=== PATIENT | female | born 1965 | race Caucasian/White ===

== ENCOUNTER → 2019-03-25 12:14 | Outpatient (CLI) | payer OTHER, SELFPAY ==
--- NOTE | 2019-03-25 12:36 | EKG12_ITS ---
Test Reason : PRE OP Blood Pressure : / mmHG Vent. Rate : 068 BPM Atrial Rate : 068 BPM P-R Int : 152 ms QRS Dur : 080 ms QT Int : 412 ms P-R-T Axes : 036 026 050 degrees QTc Int : 438 ms Sinus rhythm with marked sinus arrhythmia Otherwise normal ECG Confirmed by MOON KOENIG, AYANNA ([id number]), online content editor MAHIN CARDONA ([id number]) on 03/26/2019 2:14:57 PM Referred By: Cory De La Torre Confirmed By:AYANNA MUSTAFA MD
[2019-03-25 12:51] LABS: Absolute Lymphocyte Count 2.22 X10^3/uL (0.83-4.51); Absolute Neutrophil Count 3.5 X10^3/uL (2.0-7.7); Basophil# 0.02 X10^3/uL; Basophil% 0.3 % (0-1); Eosinophil# 0.05 X10^3/uL; Eosinophils% 0.8 % (0-5); Hematocrit 39.8 % (37-47); Hemoglobin 13.2 g/dL (12.0-15.0); Lymphocyte # 2.22 X10^3/ul (4.0); Lymphocyte % 34.2 % (19-41); Mean Corp Hgb Conc 33.2 g/dL (32-36); Mean Corpuscular Hgb 32.7 pg (27.0-32.0); Mean Corpuscular Volume 98.5 fL (81-99); Mean Platelet Vol. 11.4 fl (6.2-12.0); Monocyte# 0.65 X10^3/uL; NRBC Flagged by Analyzer 0 % (0-5); Neutrophil # 3.54 X10^3/uL (2.7-7.7); Neutrophil % 54.4 % (47-70); Platelet Count 193 K/mm3 (150-450); RBC Distribution Width CV 12.2 % (11.6-14.6); RBC Distribution Width SD 44.8 fl (35.1-43.9); Red Blood Count 4.04 M/mm3 (4.2-5.4); White Blood Count 6.5 K/mm3 (4.4-11.0)
[2019-03-25 13:08] LABS: Anion Gap 9 (5-15); BUN 12 mg/dL (7-18); BUN/Creat Ratio 20.3 RATIO (10-20); Calcium,Total 8.8 mg/dL (8.5-10.1); Chloride 99 mmol/L (98-107); Creatinine, Serum 0.59 mg/dL (0.55-1.02); EST Glomerular Filtration Rate 113 mL/min (>60); Est Glom Filt Rate - Afr Amer 136 mL/min (>60); Glucose 97 mg/dL (74-106); Potassium 3.8 mmol/L (3.5-5.1); Sodium Level 135 mmol/L (136-145)
== END ==
PROVIDERS: Family Provider Internal Medicine; PCP Internal Medicine; Referring Provider Physician Assistant; Visit Provider Physician Assistant
DX: Z01.818 Encounter for other preprocedural examination (principal); Z01.810 Encounter for preprocedural cardiovascular examination
CPT/HCPCS: 36415; 80048; 85025; 93005

== ENCOUNTER → 2019-12-29 09:57 | Outpatient (CLI) | payer OTHER, SELFPAY ==
[2019-12-29 12:08] LABS: Ferritin 438 ng/mL (8-252); Iron 122 ug/dL (50-170); Iron Binding Capacity,Total 307 ug/dL (250-450); PERCENT IRON SATURATION 39.7 % (15.0-55.0)
[2019-12-29 12:11] LABS: Hepatitis B Surface Antibody Non-Reactive
[2019-12-30 16:08] LABS: Cytoplasmic Ab (C-ANCA) <1:20 titer (Neg:<1:20)
[2019-12-30 17:12] LABS: Ceruloplasmin 22.3 mg/dL (19.0-39.0); Perinuclear Ab (P-ANCA) <1:20 titer (Neg:<1:20); t-Transglutaminase IgA <2 U/mL (0-3)
[2019-12-30 22:33] LABS: Alpha Antitrypsin Serum 141 mg/dL (101-187)
== END ==
PROVIDERS: PCP Internal Medicine; Referring Provider Internal Medicine Gastroenterology; Visit Provider Internal Medicine Gastroenterology
DX: K76.0 Fatty (change of) liver, not elsewhere classified (principal); R94.5 Abnormal results of liver function studies; K92.1 Melena; K59.00 Constipation, unspecified; J32.9 Chronic sinusitis, unspecified
CPT/HCPCS: 36415; 82103; 82390; 82728; 83516; 83540; 83550; 86256; 86706; 87070; 87077; 87186; 87205

== ENCOUNTER → 2019-12-30 06:53 | Outpatient (CLI) | payer OTHER, SELFPAY | PROVIDERS: PCP Internal Medicine; Referring Provider Internal Medicine Gastroenterology; Visit Provider Internal Medicine Gastroenterology | DX: K76.0 Fatty (change of) liver, not elsewhere classified (principal); R94.5 Abnormal results of liver function studies; K92.1 Melena; K59.00 Constipation, unspecified | CPT/HCPCS: 36415 ==

== ENCOUNTER → 2020-01-06 09:24 | Outpatient (CLI) | payer OTHER, SELFPAY ==
--- NOTE | 2020-01-06 09:31 | US_ITS ---
STUDY: ABDOMINAL ULTRASOUND - RIGHT UPPER QUADRANT REASON FOR VISIT: Female, 54 years old FATTY LIVER TECHNIQUE: Ultrasound evaluation of the right upper quadrant was performed with real-time and static blanco-scale imaging. TECHNICAL QUALITY: Adequate. COMPARISON: None. FINDINGS: Liver: The liver measures 16.1 cm. There is increased echogenicity consistent with fatty infiltration. The bile ducts are within normal limits. There is hepatic color flow. The direction of portal flow is hepatopetal. There is no demonstrated mass lesion. Gallbladder: Normal distended gallbladder. The gallbladder wall measures 2.3 mm. There is a negative sonographic Du''s sign. There is no pericholecystic fluid. There are no gallstones. There is a 4 mm x 6 mm x 3 mm polyp adherent to the gallbladder wall. Common Bile Duct (C.B.D.): The common bile duct measures 2.8 mm. Pancreas: Normal size of the head, body and tail of the pancreas. There is increased echogenicity of the pancreas. There is no demonstrated pancreatic mass or cyst. Right Kidney: Normal size of the right kidney. The right kidney measures 12 cm x 4.9 cm x 4.0 cm. Normal renal cortex. The right cortex measures 1.2 cm. There is no demonstrated renal mass or cyst. There is no right hydronephrosis. US/Abdomen Limited IMPRESSION: Fatty infiltration of the liver. Electronically Signed: Bhupinder Willis, at 13:47 EDT , Service support ,
== END ==
PROVIDERS: PCP Internal Medicine; Referring Provider Internal Medicine Gastroenterology; Visit Provider Internal Medicine Gastroenterology
DX: K76.0 Fatty (change of) liver, not elsewhere classified (principal); R94.5 Abnormal results of liver function studies; K92.1 Melena; K59.00 Constipation, unspecified
CPT/HCPCS: 76705

== ENCOUNTER → 2020-01-07 16:30 | Outpatient (CLI) | payer OTHER, SELFPAY ==
--- NOTE | 2020-01-07 16:33 | CT_ITS ---
STUDY: CT BRAIN WITHOUT CONTRAST REASON FOR EXAM: Female, 54 years old. BLURRED VISION, RT SIDED HEAD PAIN X 1 WEEK, NKI RADIATION DOSAGE (If Supplied By Facility): CTDIvol = ( 44.99 ) mGy, DLP = ( 762.36 ) mGycm TECHNIQUE: Transaxial CT imaging of the brain was performed without administration of intravenous contrast material. Individualized dose optimization techniques were used for this CT. COMPARISON: No relevant priors. FINDINGS: Normal soft tissue structures. Normal calvarium. Normal size ventricles and extra-axial spaces for the patient''s age. Normal white matter tracts of the cerebral hemispheres. Normal basal ganglia and thalami. Normal brainstem. Normal cerebellum. There is no intracranial hemorrhage. There are no findings of an acute ischemic infarction. Right maxillary sinus mucosal thickening. CT/Brain/Head without Contrast IMPRESSION: Normal unenhanced CT scan of the brain. Electronically Signed: Toi Rothman DO at 16:56 EDT Tel [phone], Service support ,
== END ==
PROVIDERS: PCP Internal Medicine; Referring Provider Nurse Practitioner; Visit Provider Nurse Practitioner
DX: R51 Headache (principal); H53.8 Other visual disturbances; M35.1 Other overlap syndromes
CPT/HCPCS: 70450

== ENCOUNTER → 2020-01-07 | Outpatient (CLI) | payer OTHER, SELFPAY ==
[2020-01-07 15:49] LABS: Absolute Neutrophil Count 2.4 X10^3/uL (2.0-7.7); Basophil# 0.02 X10^3/uL; Basophil% 0.4 % (0-1); Eosinophil# 0.02 X10^3/uL; Eosinophils% 0.4 % (0-5); Hematocrit 38.6 % (37-47); Hemoglobin 13.2 g/dL (12.0-15.0); Lymphocyte % 36.6 % (19-41); Mean Corp Hgb Conc 34.2 g/dL (32-36); Mean Corpuscular Hgb 33.2 pg (27.0-32.0); Mean Platelet Vol. 12.1 fl (6.2-12.0); Monocyte# 0.64 X10^3/uL; NRBC Flagged by Analyzer 0 % (0-5); Neutrophil # 2.43 X10^3/uL (2.7-7.7); Neutrophil % 49.4 % (47-70); Platelet Count 188 K/mm3 (150-450); RBC Distribution Width CV 13.2 % (11.6-14.6); RBC Distribution Width SD 47.2 fl (35.1-43.9); Red Blood Count 3.98 M/mm3 (4.2-5.4); White Blood Count 4.9 K/mm3 (4.4-11.0)
[2020-01-07 15:53] LABS: Erythrocyte Sedimentation Rate 32 mm/hr (0-30)
[2020-01-07 15:54] LABS: Anion Gap 6 (5-15); BUN 10 mg/dL (7-18); BUN/Creat Ratio 13.9 RATIO (10-20); CRP 8.73 mg/L (0.0-3.0); Calcium,Total 8.7 mg/dL (8.5-10.1); Chloride 98 mmol/L (98-107); Creatinine, Serum 0.72 mg/dL (0.55-1.02); EST Glomerular Filtration Rate 90 mL/min (>60); Est Glom Filt Rate - Afr Amer 108 mL/min (>60); Glucose 84 mg/dL (74-106); Potassium 3.6 mmol/L (3.5-5.1); Sodium Level 131 mmol/L (136-145)
== END | disposition home or self-care (01) ==
LOC: LABSPEC 15:24
PROVIDERS: PCP Internal Medicine; Referring Provider Nurse Practitioner; Visit Provider Nurse Practitioner
DX: R51 Headache (principal); H53.8 Other visual disturbances
CPT/HCPCS: 80048; 85025; 85652; 86140

== ENCOUNTER → 2020-01-28 | Outpatient (CLI) | payer OTHER, SELFPAY | END | disposition home or self-care (01) | PROVIDERS: PCP Internal Medicine; Referring Provider Otolaryngology; Visit Provider Otolaryngology | DX: J32.9 Chronic sinusitis, unspecified (principal) | CPT/HCPCS: 87070; 87077; 87186; 87205 ==

== ENCOUNTER 2020-05-15 13:48 | Emergency (ER) | payer OTHER, SELFPAY ==
[2020-05-15 13:49] VITALS: BP 168/96; PULSE 67; RESP 18; TEMP 36.6; O2SAT 100; BMI 35.4
--- NOTE | 2020-05-15 14:15 | ED.DCSUM_ITS ---
- ER Visit Summary Date of Service: 05/15/20 Chief Complaint: Hyperglycemia History of Present Illness: The patient is a 54 F who presents with hyperglycemia that has been getting worse over the past week. Patient states she has had a dull headache over the last week. Patient states she also has been feeling lightheaded. Patient states she checked her blood sugar today and it was 600. Patient states she waited a while and then rechecked it again. Patient states it was still 600. Patient denies any nausea or vomiting. Patient denies any fevers or chills. Patient does admit to some polyuria and polydipsia. Patient states she is on Metformin 1000 mg after dinner. Physical Examination: Vital signs are stable. Patient is afebrile. Patient is in no acute distress. Oral mucosa is pink and moist. Neck is supple. Trachea is midline. There is no JVD noted. Heart was regular rate and rhythm. Lungs are clear and equal bilaterally. Abdomen is soft. Bowel sounds are normal. There is no tenderness. There is no rebound or guarding noted. Skin is warm dry. Cranial nerves II through XII are intact. There are no focal motor or sensory deficits noted. Extremities are intact. There is no calf tenderness or edema. Test Results: CBC was normal. Comprehensive metabolic profile showed a glucose of 496, sodium of 128, and chloride of 90. Urinalysis does not show any evidence of urinary tract infection. There is glucose of 1000. Serum ketones were negative. Emergency Department Course and Treatment: Patient was given IV fluids. Patient was given a dose of Humalog here. Patient's blood sugar improved to 378. Patient was instructed to continue her oral hypoglycemics as prescribed. Patient was instructed to follow-up with her primary care physician in 3 to 5 days. Patient understood and was agreeable with the plan. All questions were answered. Disposition: Discharge home Impression: Hyperglycemia This note was generated with [employer] dictation software. It may contain incorrect words, spelling, and punctuation that were not noted in review of the chart prior to signing ED Disposition - Plan for ED Patient: Disposition: Home or Assisted Living Diagnosis: Hyperglycemia Instructions: ED Diabetic Hyperglycemia Referrals: Opal Bernal MD [Primary Care Provider] - 3-5 Days
[2020-05-15 14:38] LABS: Absolute Lymphocyte Count 2.67 X10^3/uL (0.83-4.51); Absolute Neutrophil Count 3.1 X10^3/uL (2.0-7.7); Basophil# 0.02 X10^3/uL; Basophil% 0.3 % (0-1); Eosinophil# 0.06 X10^3/uL; Hematocrit 40.7 % (37-47); Hemoglobin 13.8 g/dL (12.0-15.0); Lymphocyte # 2.67 X10^3/ul (4.0); Lymphocyte % 42.4 % (19-41); Mean Corp Hgb Conc 33.9 g/dL (32-36); Mean Corpuscular Hgb 32.4 pg (27.0-32.0); Mean Corpuscular Volume 95.5 fL (81-99); Mean Platelet Vol. 12.4 fl (6.2-12.0); Monocyte# 0.45 X10^3/uL; Monocyte% 7.2 % (0-10); NRBC Flagged by Analyzer 0 % (0-5); Neutrophil # 3.08 X10^3/uL (2.7-7.7); Neutrophil % 48.9 % (47-70); Platelet Count 143 K/mm3 (150-450); RBC Distribution Width CV 12.6 % (11.6-14.6); RBC Distribution Width SD 43.8 fl (35.1-43.9); Red Blood Count 4.26 M/mm3 (4.2-5.4); White Blood Count 6.3 K/mm3 (4.4-11.0)
[2020-05-15 15:09] LABS: ALB/GLOB Ratio 1.1 RATIO (0.9-2.4); AST(SGOT) 195 U/L (15-37); Alanine Aminotransfer ALT/SGPT 463 U/L (13-56); Alkaline Phosphatase 126 U/L (45-117); Anion Gap 10 (5-15); BUN 17 mg/dL (7-18); BUN/Creat Ratio 16.3 RATIO (10-20); Calcium,Total 9.2 mg/dL (8.5-10.1); Chloride 90 mmol/L (98-107); Creatinine, Serum 1.04 mg/dL (0.55-1.02); EST Glomerular Filtration Rate 59 mL/min (>60); Est Glom Filt Rate - Afr Amer 71 mL/min (>60); Estimated Creatinine Clearance 51.15 ml/min; Globulin 3.6 g/dL (2.2-4.2); Glucose 496 mg/dL (74-106); Potassium 3.9 mmol/L (3.5-5.1); Protein, Total 7.6 g/dL (6.4-8.2); Sodium Level 128 mmol/L (136-145)
--- NOTE | 2020-05-15 15:09 | ED.RN ---
lab called critical of blood glucuse--[id number]
[2020-05-15 15:20] LABS: Bacteria 0 SEEN /hpf (None Seen); Mucous, Urine 0 SEEN /hpf (<or=2+); Red Blood Cells-Urine 0 SEEN /hpf (0-5); White Blood Cells 0 SEEN /hpf (0-5)
[2020-05-15] MEDS: 0.9% Normal Saline 1,000 ML 1000 ML IV (15:21)
[2020-05-15 15:22] VITALS: BP 156/74; PULSE 60; RESP 17; TEMP 36.4; O2SAT 100
[2020-05-15 15:33] LABS: Color, Urine Straw (Yellow); Glucose, Dipstick 1000 mg/dl (Normal); Ketone-Dipstick Negative (Negative); Leukocyte Esterase-Dipstick Negative /ul (Negative); Nitrite-Dipstick Negative (Negative); Occult Blood-Urine Negative /ul (Negative); Protein-Dipstick Negative (Negative); Urine Bilirubin Dipstick Negative (Negative); Urine Clarity Clear (Clear); Urine Urobilinogen Normal (Normal); Urine pH 6.5 (5.0 - 8.0)
[2020-05-15 15:47] LABS: Squamous Epithelial Cells - UA 0-5 SEEN /hpf (5-10)
[2020-05-15 15:48] VITALS: BP 145/74; PULSE 64; RESP 17; O2SAT 100
[2020-05-15 16:00] VITALS: BP 145/74; PULSE 62; PULSE 63; RESP 17; TEMP 36.4; O2SAT 100
[2020-05-15] MEDS: Insulin Lispro 100 UNIT/ML INSULN.PEN 15 UNIT SC (16:13)
[2020-05-15 17:06] LABS: Bedside Glucose 387 mg/dL (70-110)
== END 2020-05-15 17:10 | disposition home or self-care (01) ==
PROVIDERS: Emergency Provider Emergency Medicine; PCP Internal Medicine
DX: E11.65 Type 2 diabetes mellitus with hyperglycemia (principal); E66.9 Obesity, unspecified; I10 Essential (primary) hypertension; Z79.84 Long term (current) use of oral hypoglycemic drugs; Z79.899 Other long term (current) drug therapy
CPT/HCPCS: 80053; 81001; 82009; 82962; 85025; 96360; 96361; 96372; 99285; J7030

== ENCOUNTER → 2020-11-24 12:52 | Outpatient (CLI) | payer OTHER, SELFPAY ==
--- NOTE | 2020-11-24 12:55 | CT_ITS ---
STUDY: CT CHEST WITHOUT CONTRAST REASON FOR EXAM: Female, 55 years old. INTERSTITIAL PNEUMONIA RADIATION DOSAGE (If Supplied By Facility): CTDIvol = ( 16.24 ) mGy, DLP = ( 539.83 ) mGycm TECHNIQUE: Transaxial imaging was performed without the administration of intravenous contrast material. Multiplanar coronal and sagittal images were reformatted. Individualized dose optimization techniques were used for this CT. COMPARISON: None. FINDINGS: Mild degree of increased linear markings at the lung bases slightly worse on the right side suggestive of mild bibasilar scarring with mild bronchiectasis in the posterior medial segments of both lower lobes. There is no demonstrated pleural abnormality. There are calcifications of the coronary arteries. There are multiple small lymph nodes within the mediastinum, which are normal in size and morphology most compatible with reactive lymph hyperplasia. Normal hilar regions. Normal unenhanced pulmonary arteries. Normal aorta arch and descending thoracic aorta. There are multi-level degenerative changes of the thoracic spine. Small hiatal hernia. CT/Chest without Contrast IMPRESSION: Mild degree of linear scarring at the lung bases with evidence of bronchiectasis. Electronically Signed: Bhupinder Willis MD at 13:28 EDT , Service support ,
[2020-11-24 13:39] LABS: Erythrocyte Sedimentation Rate 19 mm/hr (0-30)
[2020-11-24 13:49] LABS: CRP 5.48 mg/L (0.0-3.0)
== END ==
PROVIDERS: PCP Internal Medicine; Referring Provider Internal Medicine Pulmonary Disease; Visit Provider Internal Medicine Pulmonary Disease
DX: J84.113 Idiopathic non-specific interstitial pneumonitis (principal); I10 Essential (primary) hypertension
CPT/HCPCS: 36415; 71250; 85652; 86140

== ENCOUNTER → 2020-12-22 | Outpatient (CLI) | payer OTHER, SELFPAY | END | disposition home or self-care (01) | LOC: LABSPEC 15:32 | PROVIDERS: PCP Internal Medicine; Visit Provider Otolaryngology | DX: J01.90 Acute sinusitis, unspecified (principal) | CPT/HCPCS: 87070; 87077; 87186; 87205 ==

== ENCOUNTER → 2021-02-10 | Outpatient (CLI) | payer OTHER, SELFPAY | END | disposition home or self-care (01) | PROVIDERS: PCP Internal Medicine; Referring Provider Otolaryngology; Visit Provider Otolaryngology | DX: Z11.59 Encounter for screening for other viral diseases (principal); Z03.818 Encounter for observation for suspected exposure to other biological agents ruled out | CPT/HCPCS: 87635; U0005; U0003 ==

== ENCOUNTER → 2021-02-24 07:58 | Outpatient (CLI) | payer OTHER, SELFPAY ==
--- NOTE | 2021-02-24 08:12 | MRI_ITS ---
STUDY: MRI RIGHT KNEE WITH AND WITHOUT CONTRAST REASON FOR EXAM: Pain around the patella, osseous abnormality on radiographs. TECHNIQUE: Standardized fat and water weighted pulse sequences were obtained in all 3 orthogonal planes before and after intravenous administration of 18 mL of Dotarem. COMPARISON: None. FINDINGS: There is fraying of the inferior articular surface of the posterior horn of the medial meniscus (proton-density sagittal images 30, 31) without discrete medial meniscal tear. Normal hyaline cartilage of the medial femorotibial compartment. Normal medial femoral condyle and tibial plateau. There is mild periligamentous inflammation of the medial collateral ligament (T2 coronal images 16, 17). There is mild pes anserinus bursitis (T2 axial images 19-23) with associated contrast enhancement (postcontrast T1 axial images 20-24). There is mild intrasubstance myxoid degeneration of the lateral meniscus without discrete lateral meniscal tear. Normal hyaline cartilage of the lateral femorotibial compartment. Normal lateral femoral condyle and tibial plateau. Normal proximal tibiofibular articulation. Normal lateral collateral (fibular) ligament. Normal popliteus tendon. Normal biceps femoris tendon. Normal anterior cruciate ligament (ACL). Normal posterior cruciate ligament (PCL). Normal congruent patellofemoral articulation. Normal hyaline cartilage of the patellofemoral compartment. Normal medial and lateral patellar retinaculum. Normal visualized quadriceps tendon. Normal patellar tendon. Normal Hoffa''s fat pad. There is a minimal volume of fluid in the knee joint. There is edema in the anterior subcutis adipose space. The otherwise visualized osseous structures are unremarkable. There is no abnormal contrast enhancement of the visualized osseous structures. MRI/Lower Ext Joint Only W/WO Cont IMPRESSION: Fraying of the posterior horn of the medial meniscus without discrete medial meniscal tear. Mild pes anserinus bursitis. Mild periligamentous inflammation of the medial collateral ligament. Edema in the anterior subcutis adipose space. No demonstrated osseous lesion. Electronically Signed: Donnie Smith MD at 9:50 EDT Tel , Service support ,
[2021-02-25 07:18] LABS: CREATININE FINGERSTICK 0.53 mg/dL (0.55-1.02); EGFR FINGERSTICK > 60 mL/min (>60)
== END ==
PROVIDERS: PCP Internal Medicine
DX: R93.6 Abnormal findings on diagnostic imaging of limbs (principal)
CPT/HCPCS: 73723; A9575

== ENCOUNTER → 2021-10-06 | Outpatient (CLI) | payer OTHER, SELFPAY ==
[2021-10-06 15:49] LABS: Hematocrit 37.1 % (37-47); Hemoglobin 12.3 g/dL (12.0-15.0); Mean Corp Hgb Conc 33.2 g/dL (32-36); Mean Corpuscular Hgb 31.1 pg (27.0-32.0); Mean Corpuscular Volume 93.7 fL (81-99); Mean Platelet Vol. 12.1 fl (6.2-12.0); Platelet Count 133 K/mm3 (150-450); RBC Distribution Width CV 13.1 % (11.6-14.6); RBC Distribution Width SD 44.8 fl (35.1-43.9); Red Blood Count 3.96 M/mm3 (4.2-5.4); White Blood Count 5.4 K/mm3 (4.4-11.0)
== END | disposition home or self-care (01) ==
LOC: MTLAB 11:19
PROVIDERS: PCP Internal Medicine; Referring Provider Internal Medicine Pulmonary Disease; Visit Provider Internal Medicine Pulmonary Disease
DX: J84.113 Idiopathic non-specific interstitial pneumonitis (principal)
CPT/HCPCS: 36415; 85027

== ENCOUNTER → 2021-10-24 | Outpatient (CLI) | payer OTHER, SELFPAY ==
--- NOTE | 2021-10-24 08:18 | US_ITS ---
STUDY: ABDOMINAL ULTRASOUND - ELASTOGRAPHY REASON FOR VISIT: Female, 56 years old. Elevated liver enzymes. TECHNIQUE: Liver stiffness measurements were obtained on a Bunch RS 85 ultrasound machine using a CA 1-7 probe following the SRU guidelines. 3 measurements were obtained using a 2-D-SWE method. The IQR/M was 14% suggesting a quality data set. TECHNICAL QUALITY: Adequate. COMPARISON: Comparison is made with prior study 01/06/2020. FINDINGS: Liver: Fatty infiltration of the liver. Median liver stiffness measured 14 kPa. US/Elastography Parenchyma/Organ IMPRESSION: Liver stiffness measures 14 kPa compatible with F3-F4 (Moderate to severe liver fibrosis) Metavir score. Electronically Signed: Bhupinder Willis MD at 8:49 EDT ,
[2021-10-24 10:05] LABS: Absolute Lymphocyte Count 2.06 X10^3/uL (0.83-4.51); Absolute Neutrophil Count 2.8 X10^3/uL (2.0-7.7); Basophil# 0.02 X10^3/uL; Basophil% 0.4 % (0-1); Eosinophil# 0.08 X10^3/uL; Eosinophils% 1.5 % (0-5); Hematocrit 42.1 % (37-47); Hemoglobin 14.3 g/dL (12.0-15.0); Lymphocyte # 2.06 X10^3/ul (0.83-4.51); Lymphocyte % 37.9 % (19-41); Mean Corpuscular Hgb 31.3 pg (27.0-32.0); Mean Corpuscular Volume 92.1 fL (81-99); Mean Platelet Vol. 12.2 fl (6.2-12.0); Monocyte# 0.49 X10^3/uL; NRBC Flagged by Analyzer 0 % (0-5); Neutrophil # 2.78 X10^3/uL (2.7-7.7); Platelet Count 156 K/mm3 (150-450); RBC Distribution Width SD 44.1 fl (35.1-43.9); Red Blood Count 4.57 M/mm3 (4.2-5.4); White Blood Count 5.4 K/mm3 (4.4-11.0)
== END | disposition home or self-care (01) ==
PROVIDERS: Internal Medicine Rheumatology; PCP Internal Medicine; Referring Provider Nurse Practitioner; Visit Provider Nurse Practitioner
DX: K76.0 Fatty (change of) liver, not elsewhere classified (principal); R74.8 Abnormal levels of other serum enzymes
CPT/HCPCS: 36415; 76981; 85025

== ENCOUNTER → 2021-11-17 | Outpatient (CLI) | payer OTHER, SELFPAY ==
[2021-11-17 11:23] LABS: Hematocrit 37.7 % (37-47); Hemoglobin 12.8 g/dL (12.0-15.0); Mean Corpuscular Volume 94.3 fL (81-99); Mean Platelet Vol. 11.6 fl (6.2-12.0); Platelet Count 136 K/mm3 (150-450); RBC Distribution Width CV 13.3 % (11.6-14.6); RBC Distribution Width SD 45.8 fl (35.1-43.9); White Blood Count 5.3 K/mm3 (4.4-11.0)
--- NOTE | 2021-11-17 11:55 | CT_ITS ---
STUDY: CT CHEST WITHOUT CONTRAST REASON FOR EXAM: Female, 56 years old. PNEUMONITIS. History of asthma and allergies. RADIATION DOSAGE (If Supplied By Facility): CTDIvol = ( 10.02 ) mGy, DLP = ( 343.08 ) mGycm TECHNIQUE: Transaxial imaging was performed without the administration of intravenous contrast material. Multiplanar coronal and sagittal images were reformatted. Individualized dose optimization techniques were used for this CT. COMPARISON: Comparison is made with prior study dated 11/24/2020. FINDINGS: CHEST Bilateral axillary lymph nodes. The largest lymph node in the right axilla measures 2.1 cm. Mild increased linear markings at the lung bases slightly more prominent on the right side suggestive of a basilar scarring and mild bronchiectasis. There is no demonstrated pleural abnormality. There are calcifications of the coronary arteries. There are multiple small lymph nodes within the mediastinum, which are normal in size and morphology most compatible with reactive lymph hyperplasia. Normal hilar regions. Normal unenhanced pulmonary arteries. Normal aorta arch and descending thoracic aorta. There are multi-level degenerative changes of the thoracic spine. Small hiatal hernia. CT/Chest without Contrast IMPRESSION: Stable examination. Electronically Signed: Bhupinder Willis MD at 13:17 EDT ,
== END | disposition home or self-care (01) ==
LOC: CT 11:54
PROVIDERS: PCP Internal Medicine; Referring Provider Internal Medicine Pulmonary Disease; Visit Provider Internal Medicine Pulmonary Disease
DX: J84.113 Idiopathic non-specific interstitial pneumonitis (principal)
CPT/HCPCS: 36415; 71250; 85027

== ENCOUNTER → 2022-03-17 | Outpatient (CLI) | payer OTHER, SELFPAY ==
[2022-03-17 15:04] LABS: Absolute Neutrophil Count 2.3 X10^3/uL (2.0-7.7); Basophil# 0.01 X10^3/uL; Basophil% 0.2 % (0-1); Eosinophil# 0.08 X10^3/uL; Eosinophils% 1.8 % (0-5); Hematocrit 39.6 % (37-47); Hemoglobin 13.1 g/dL (12.0-15.0); Lymphocyte % 38.5 % (19-41); Mean Corp Hgb Conc 33.1 g/dL (32-36); Mean Corpuscular Volume 96.6 fL (81-99); Mean Platelet Vol. 12.9 fl (6.2-12.0); Monocyte# 0.36 X10^3/uL; Monocyte% 8.1 % (0-10); NRBC Flagged by Analyzer 0 % (0-5); Neutrophil # 2.26 X10^3/uL (2.7-7.7); Neutrophil % 51.2 % (47-70); Platelet Count 146 K/mm3 (150-450); RBC Distribution Width CV 13.3 % (11.6-14.6); RBC Distribution Width SD 47.5 fl (35.1-43.9); White Blood Count 4.4 K/mm3 (4.4-11.0)
[2022-03-17 15:23] LABS: Partial Thromboplast Time 31.6 Seconds (24.1-36.2)
[2022-03-17 15:31] LABS: Vitamin B12 355 pg/mL (211-911)
[2022-03-17 15:32] LABS: AST(SGOT) 159 U/L (15-37); Alanine Aminotransfer ALT/SGPT 186 U/L (13-56); Albumin, Serum 3.5 g/dL (3.2-5.0); Alkaline Phosphatase 108 U/L (45-117); Anion Gap 8 (5-15); BUN 10 mg/dL (7-18); BUN/Creat Ratio 16.8 RATIO (10-20); Bilirubin, Direct 0.24 mg/dL (0.00-0.30); Calcium,Total 9.2 mg/dL (8.5-10.1); Chloride 101 mmol/L (98-107); Cholesterol 169 mg/dL (200); Creatinine, Serum 0.59 mg/dL (0.55-1.02); EST Glomerular Filtration Rate 111 mL/min (>60); Est Glom Filt Rate - Afr Amer 134 mL/min (>60); Ferritin 177 ng/mL (8-252); GGTP 203 U/L (5-55); Globulin 3.7 g/dL (2.2-4.2); Glucose 142 mg/dL (74-106); High Density Lipoprotein 39 mg/dL; Iron 133 ug/dL (50-170); Iron Binding Capacity,Total 358 ug/dL (250-450); PERCENT IRON SATURATION 37.2 % (15.0-55.0); Potassium 3.9 mmol/L (3.5-5.1); Protein, Total 7.2 g/dL (6.4-8.2); Sodium Level 135 mmol/L (136-145); T4 Total, Thyroxin 14.5 ug/dL (4.8-13.9); Triglycerides 105 mg/dL; Very Low Density Lipoprotein 21 mg/dL (5-40)
[2022-03-17 15:43] LABS: International Normalized Ratio 1.1; Prothrombin Time (Protime)PT. 14.1 SECONDS (11.7-14.9)
[2022-03-20 14:08] LABS: ANTINUCLEAR ANTIBODIES DIRECT Positive (Negative)
[2022-03-20 17:35] LABS: Alpha Antitrypsin Serum 183 mg/dL (101-187); Anti-Mitochondrial AB <20.0 Units (0.0-20.0)
[2022-03-27 10:07] LABS: Ceruloplasmin 23.8 mg/dL (19.0-39.0); PROEL- A/G Ratio 1.2 (0.7-1.7); PROEL- Albumin 3.6 g/dL (2.9-4.4); PROEL- Alpha-1 Globulin 0.3 g/dL (0.0-0.4); PROEL- Alpha-2 Globulin 0.6 g/dL (0.4-1.0); PROEL- Globulin, Total 2.9 g/dL (2.2-3.9); PROEL- TOTAL PROTEIN 6.5 g/dL (6.0-8.5)
[2022-03-28 17:32] LABS: AFP, Tumor Marker 6.7 ng/mL (0.0-9.2); Anti-Smooth Muscle ABS 11 Units (0-19); CMV by PCR Negative (Negative); Deamidated Gliadin IgA 8 units (0-19); Deamidated Gliadin IgG 3 units (0-19); EBV Acute VCA IgM < 36.0 U/mL (0.0-35.9); EBV Nuclear Antigen IgG < 18.0 U/mL (0.0-17.9); Immunoglobulin A 223 mg/dL (87-352); Vitamin A, Retinol 31.1 ug/dL (20.1-62.0)
== END | disposition home or self-care (01) ==
PROVIDERS: PCP Internal Medicine
DX: R94.5 Abnormal results of liver function studies (principal); K76.0 Fatty (change of) liver, not elsewhere classified
CPT/HCPCS: 36415; 80048; 80061; 80076; 82103; 82105; 82390; 82607; 82728; 82784; 82977; 83516; 83540; 83550; 84165; 84436; 84590; 85025; 85610; 85730; 86038; 86664; 86665; 87496

== ENCOUNTER 2022-03-23 12:51 | Outpatient (CLI) | payer OTHER, SELFPAY ==
--- NOTE | 2022-03-23 12:53 | US_ITS ---
EXAM: US RETROPERITONEAL LIMITED, RENAL CLINICAL INDICATION: UTI TECHNIQUE: Limited grayscale and color Doppler sonographic evaluation of the retroperitoneum was performed. This report was created using [employer] report generation technology. COMPARISON: None. FINDINGS: RIGHT KIDNEY: Right kidney measures 12.4 cm in length. No hydronephrosis. No shadowing calculus. No perinephric collection is demonstrated. LEFT KIDNEY: Left kidney measures 11.9 cm in length. No hydronephrosis. No shadowing calculus. No perinephric collection is demonstrated. BLADDER: Urinary bladder is normal appearance. Prevoid bladder volume is 97 cc and postvoid 15 cc. Bilateral ureteral jets are noted. US/Kidney and Bladder IMPRESSION: Normal renal ultrasound. Electronically Signed: Jose Weber MD at 7:35 EST ,
== END 2022-03-23 23:59 | disposition home or self-care (01) ==
LOC: US 12:52
PROVIDERS: PCP Internal Medicine; Visit Provider Urology
DX: N39.0 Urinary tract infection, site not specified (principal)
CPT/HCPCS: 76770

== ENCOUNTER 2022-04-05 11:00 | Outpatient (CLI) | payer OTHER, SELFPAY ==
[2022-04-05 13:06] LABS: AST(SGOT) 148 U/L (15-37); Alanine Aminotransfer ALT/SGPT 185 U/L (13-56); Albumin, Serum 3.7 g/dL (3.2-5.0); Alkaline Phosphatase 121 U/L (45-117); Bilirubin, Direct 0.26 mg/dL (0.00-0.30); Globulin 3.7 g/dL (2.2-4.2); Protein, Total 7.4 g/dL (6.4-8.2)
== END 2022-04-05 23:59 | disposition home or self-care (01) ==
LOC: MTLAB 11:02
PROVIDERS: PCP Internal Medicine
DX: R94.5 Abnormal results of liver function studies (principal); K76.0 Fatty (change of) liver, not elsewhere classified
CPT/HCPCS: 36415; 80076

== ENCOUNTER → 2022-05-17 | Outpatient (CLI) | payer OTHER, SELFPAY | END | disposition home or self-care (01) | LOC: LABSPEC 15:32 | PROVIDERS: PCP Internal Medicine; Referring Provider Otolaryngology; Visit Provider Otolaryngology | DX: J32.8 Other chronic sinusitis (principal) | CPT/HCPCS: 87070; 87205 ==

== ENCOUNTER → 2022-08-23 | Outpatient (CLI) | payer OTHER, SELFPAY | END | disposition home or self-care (01) | LOC: LABSPEC 15:51 | PROVIDERS: PCP Internal Medicine; Visit Provider Otolaryngology | DX: J32.8 Other chronic sinusitis (principal) | CPT/HCPCS: 87070; 87205 ==

== ENCOUNTER → 2022-08-31 | Outpatient (CLI) | payer OTHER, SELFPAY ==
--- NOTE | 2022-08-31 15:23 | STRESSREP ---
Stress Test Report Date: 08/31/2022 Procedure: Exercise tolerance test Indications: Palpitations/Dyspnea Consent: Per the patient Procedure: The patient exercised on a Radu protocol for 6 minutes and 16 seconds achieving a peak heart rate of 150 bpm (91% predicted maximal heart rate) with a peak blood pressure 182/76 mmHg and a peak MET capacity of approximately 7.7 MET's. The baseline ECG demonstrated normal sinus rhythm. The peak exercise ECG demonstrated 1.[address] depression in inferior leads. There were no cardiac dysrhythmias pretest, during exercise, or recovery. The functional capacity was considered average. The patient had no complaints of chest discomfort during exercise or recovery. The examination was discontinued secondary to target heart rate being achieved. Impression: 1. Technically adequate (percent predicted maximal heart rate greater than 85%) exercise tolerance test 2. Peak exercise ECG with ST depressions in inferior leads suggestive of ischemia. 3. There were no cardiac dysrhythmias during exercise or recovery This note was generated with [employer] software. It may contain incorrect words, spelling, and punctuation that were not noted in checking the note before signing.
== END | disposition home or self-care (01) ==
LOC: CVS 09:54
PROVIDERS: PCP Internal Medicine; Referring Provider Internal Medicine Cardiovascular Disease; Visit Provider Internal Medicine Cardiovascular Disease
DX: I10 Essential (primary) hypertension (principal); R94.31 Abnormal electrocardiogram [ECG] [EKG]; E05.00 Thyrotoxicosis with diffuse goiter without thyrotoxic crisis or storm; Z82.49 Family history of ischemic heart disease and other diseases of the circulatory system
CPT/HCPCS: 93017

== ENCOUNTER → 2022-10-12 | Outpatient (CLI) | payer OTHER, SELFPAY ==
--- NOTE | 2022-10-12 07:51 | CT_ITS ---
STUDY: CT CHEST WITHOUT CONTRAST. Cardiac Over read examination. REASON FOR EXAM: Female, 57 years old. ABN RESULT OF CARDIOVASCULAR FUNCTION STUDY RADIATION DOSAGE (If Supplied By Facility): CTDIvol = ( 27.02 ) mGy, DLP = ( 1351.05 ) mGycm TECHNIQUE: Transaxial imaging was performed without the administration of intravenous contrast material. Individualized dose optimization techniques were used for this CT. COMPARISON: Comparison is made with prior study November 17, 2021. FINDINGS: CHEST The lungs are normal. There is no demonstrated pleural abnormality. There are calcifications of the coronary arteries. There are multiple small lymph nodes within the mediastinum, which are normal in size and morphology most compatible with reactive lymph hyperplasia. Normal hilar regions. Normal unenhanced pulmonary arteries. Normal aorta arch and descending thoracic aorta. There are degenerative changes of the thoracic spine. Small hiatal hernia. CT/Limited Chest CT Cardiac Only IMPRESSION: Coronary artery calcification. Electronically Signed: Bhupinder Willis MD at 8:42 EDT ,
[2022-10-12 07:59] VITALS: BP 151/72; PULSE 74; RESP 16; TEMP 36.4; O2SAT 100; BMI 34.3
[2022-10-12 08:19] VITALS: BP 151/72; PULSE 75
[2022-10-12] MEDS: Metoprolol Tartrate 5 MG/5 ML Vial IV (08:19)
[2022-10-12] MEDS: Nitroglycerin SL (ED/IMG/CATH) 0.4 MG TABLET SL (08:23)
[2022-10-12 08:31] VITALS: BP 141/71
--- NOTE | 2022-10-13 15:14 | CA.SCORE ---
Calcium Scoring Date of Study:: 10/13/22 Coronary Calcium Scoring: High-resolution Computed Tomographic imaging of the chest was performed on [ ], with particular attention paid to the coronary arteries. Images from the examination were analyzed for the presence and extent of coronary artery calcification , using coronary calcium quantification software. The patient tolerated the procedure well and there were no complications. The results of the coronary calcification analysis are provided below. Findings Coronary Artery Left Main (LM): 0 Left Anterior Descending (LAD): 207 Left Circumflex (LCX): 0 Right Coronary Artery (RCA): 0 Total Agatston Score: 207 Percentile Ranking: Greater than 90% Calcium Scoring Interpretation: Different methods to categorize the overall amount of coronary plaque. Overall amount CAC SIS Visual of coronary plaque P1 Mild -100 <2 1-2 vessels with mild amount of plaque P2 Moderate 101-300 3-4 1-2 vessels with moderate amount, 3 vessels with mild amount of plaque P3 Severe 301-999 5-7 3 vessels with moderate amount, 1 vessel with severe amount of plaque P4 Extensive >1000 >8 2-3 vessels with severe amount of plaque Calcium Score: Moderate: 1-2 vessels w/moderate amt, 3 vessels w/mild amt of plaque Conclusion: Moderate plaque disease noted. The CT angiogram portion of the test was rather suboptimal to comment on stenosis. Would Recommend testing modality.
== END | disposition home or self-care (01) ==
LOC: CT 07:46
PROVIDERS: PCP Internal Medicine; Referring Provider Internal Medicine Cardiovascular Disease; Visit Provider Internal Medicine Cardiovascular Disease
DX: R94.30 Abnormal result of cardiovascular function study, unspecified (principal); R07.9 Chest pain, unspecified; I25.10 Atherosclerotic heart disease of native coronary artery without angina pectoris
CPT/HCPCS: 75571; 75574; 76380; 96374; Q9967

== ENCOUNTER 2022-11-27 15:54 | Emergency (ER) | payer OTHER, SELFPAY ==
[2022-11-27 15:55] VITALS: BP 154/86; PULSE 81; RESP 14; TEMP 36.6; O2SAT 100; BMI 33.5
--- NOTE | 2022-11-27 16:30 | EX.ED.DYSGE1 ---
HPI History of Present Illness Chief Complaint: Abd Pain Detail of Chief Complaint: Abdominal pain Informant: patient Narrative Narrative: Patient presents with abdominal pain that is not continuous for the last 5 days. Patient states that she has had similar pain for almost a year off-and-on. She has been evaluated for this and has had scans and ultrasounds that have been unremarkable. She is scheduled to have an EGD and October of this year. Patient states that over the last 5 days she has had continuous pain and low-grade fever up to 99 7. She had nausea. Food makes the pain worse. She is not had any diarrhea. She denies blood in her stool or black tarry stool. She still has her gallbladder and her appendix. Patient denies urinary symptoms. [facility] Medical History (Updated 11/27/22 @ 20:[address] Chanel Saleh, ) Abnormal exercise tolerance test Abnormal finding on EKG Cervicalgia Diabetes Essential hypertension Fibromyalgia Graves disease Srini's disease HSV-2 infection Interstitial lung disease Lupus Mixed connective tissue disease Raynaud disease Home Medications citalopram 20 mg tablet 20 mg PO DAILY 05/15/20 [History Last Taken Unknown] fluticasone propionate 50 mcg/actuation nasal spray,suspension 2 spray NASAL DAILY 05/15/20 [History Last Taken Unknown] hydrochlorothiazide 25 mg tablet 25 mg PO DAILY 05/15/20 [History Last Taken Unknown] levalbuterol tartrate 45 mcg/actuation aerosol inhaler 15 g IH Q4H PRN PRN Shortness Of Breath 05/15/20 [History Last Taken Unknown] losartan 100 mg tablet 100 mg PO DAILY 05/15/20 [History Last Taken Unknown] montelukast 10 mg tablet 10 mg PO DAILY 05/15/20 [History Last Taken Unknown] amlodipine 2.5 mg tablet 2.5 mg PO DAILY 08/04/22 [History Last Taken Unknown] budesonide 1 mg/2 mL suspension for nebulization (Pulmicort) 0.5 mg inhalation BID 08/04/22 [History Last Taken Unknown] epinephrine 0.3 mg/0.3 mL injection, auto-injector 0.3 mg IM ONCE 08/04/22 [History Last Taken Unknown] triamcinolone acetonide 0.1 % topical cream 1 applic topical DAILY 08/04/22 [History Last Taken Unknown] lansoprazole 30 mg capsule,delayed release 30 mg PO DAILY 08/08/22 [History Last Taken Unknown] metformin 500 mg tablet,extended release 24 hr 1,000 mg PO BID 08/08/22 [History Last Taken Unknown] naproxen 500 mg tablet 500 mg PO BID PRN pain 08/08/22 [History Last Taken Unknown] aspirin 81 mg tablet,delayed release 81 mg PO DAILY 11/16/22 [History Last Taken Unknown] carvedilol 12.5 mg tablet 12.5 mg PO BID #180 tabs 11/16/22 [Rx Last Taken Unknown] Allergy/AdvReac Type Severity Reaction Status Date / Time cantaloupe Allergy Angioedema Verified 11/27/22 15:54 Sulfa (Sulfonamide Allergy Hives Verified 11/27/22 15:54 Antibiotics) Family History Mother CAD (coronary artery disease) stents Hypertension Vertigo Pacemaker Enlarged heart Father Cancer prostate Sister Sjogrens syndrome Grandmother Heart disease Grandfather Heart disease Uncle Heart disease Enlarged heart Surgical History Hx of bilateral cataract extraction Hx of dilation and curettage Hx of hysterectomy Hx of sinus surgery Hx of tonsillectomy Social History Smoking Status: Never smoker alcohol intake: current alcohol intake frequency: holidays/special occasions only substance use type: does not use caffeine: Yes Type: coffee Number of servings: 1 ROS ROS ED Review of Systems ROS Unobtainable: other Constitutional Constitutional ED: Reports lethargy; Denies chills, fever(s), sweats or weight loss Eyes Eyes: Denies blurry vision, change in vision or diplopia ENT ENT ED: Denies rhinorrhea or sore throat Cardiovascular Cardiovascular: Denies chest pain, orthopnea or racing heartbeat Respiratory/Chest Respiratory/Chest: Denies cough, dyspnea, dyspnea on exertion, orthopnea or sputum Gastrointestinal Gastrointestinal: Reports abdominal pain and nausea; Denies diarrhea or vomiting Genitourinary Genitourinary ED: Denies dysuria, hematuria or urinary frequency Musculoskeletal Musculoskeletal: Denies arthralgias, back pain, myalgias or neck pain Integumentary Denies abscess, Abrasions or rash Neurologic Neurologic: Denies headache(s) or weakness Psychiatric Psychiatric: Denies anxiety, depression or suicidal thoughts Endocrine Endocrinology: Denies polydipsia, polyphagia or polyuria Hematologic/Lymphatic Hematologic/Lymphatic: Denies easy bleeding, easy bruising or lymphadenopathy Allergic/Immunologic Allergic/Immunologic ED: Denies mouth swelling, tongue swelling or urticaria EXAM Physical Exam Const Vital Signs: 11/27/22 15:55 11/27/22 21:04 Temperature 97.8 F Temperature Source Temporal Pulse Rate 81 Respiratory Rate 14 16 Blood Pressure 154/86 H Blood Pressure Mean 108 Pulse Ox 100 Oxygen Delivery Method Room Air Positive well nourished and well developed General Appearance ED: well developed and NAD HEENT Reports TM's clear and moist mucous membranes normocephalic and atraumatic; Negative for trauma or tenderness Tympanic Membrane ED: Yes TM's clear Eyes PERRL and EOMs intact bilaterally General Eye ED: Negative for pale conjunctiva or scleral icterus Neck no lymphadenopathy, supple and no JVD General: Negative for tenderness Chest Wall inspection of chest normal and palpation of chest normal Chest: Negative for tenderness Resp normal respiratory effort and clear to auscultation bilaterally Effort and Inspection: Negative for respiratory distress or pain with movement Auscultation: Negative for rhonchi, wheezes or diminished lung sounds Cardio regular rate, regular rhythm, S1 normal heart sound, S2 normal heart sound and no murmurs Peripheral Pulses: pulses 2+ throughout GI normal to inspection, nondistended, normoactive bowel sounds, soft to palpation, non-distended and no masses GI Narrative: Tenderness palpation over right upper quadrant with guarding. She has a positive Du sign. No rebound, rigidity, or pedal signs. No mass palpated. Back/Spine no CVA tenderness and no thoracic nor lumbar tenderness Extremity normal to inspection General Extremety ED: Negative for edema General Extremity: Negative for edema Neuro oriented x3, CN's II-XII intact bilaterally, no sensory deficits noted and gait normal Sensorium / Orientation: awake, alert, oriented to person, oriented to place and oriented to time Motor Exam: strength 5/5 throughout and strength abnormal Psych mental status grossly normal Skin no rashes or lesions noted and no wounds MDM MDM MDM Narrative Medical decision making narrative: Patient presents to the emergency department complaint of abdominal pain for 5 days. She has had chronic abdominal pain for months almost a year but over the last 5 days more consistent. Pains in the right upper quadrant. Food seems to make it worse. Patient has history of autoimmune disorder. Patient has had low-grade fever and nausea but no vomiting. IV line established on arrival. Patient did not want a thing for pain. CBC with differential obtained showed a white count of 4.0 with hemoglobin 12 and hematocrit of 36 and platelet count of 138. Chemistries unremarkable. LFTs were slightly elevated with an AST of 146 and ALT of [birth year]14/1966 and alk phos of 123. Total bilirubin was normal at 0.6. Lipase normal at 161. We had a gallbladder ultrasound performed that was read by radiology as polyp within the gallbladder but no evidence of cholecystitis. Patient had evidence of cirrhosis. We did perform a CT scan of the abdomen pelvis that showed calcification at the right UVJ that could be a phlebolith versus a ureteral stone. There was also some fullness in the area that could be related to a ovary but malignancy could not be excluded and recommended CT urogram to evaluate further. I discussed all these findings with the patient. She will follow-up with her [facility] admin regarding the right upper quadrant pain. I do not feel she is having acute cholecystitis. Patient also will follow-up with her urologist regarding the findings in the pelvis. Clinically I do not think she has a kidney stone. Lab Data Attestation: I reviewed the patient's lab results. Labs: Laboratory Results - last 24 hr 11/27/22 11/27/22 16:37 18:35 WBC 4.0 L RBC 3.88 L Hgb 12.1 Hct 36.2 L MCV 93.3 MCH 31.2 MCHC 33.4 RDW Std Deviation 45.4 H RDW Coeff of Ted 13.5 Plt Count 138 L MPV 12.1 H Immature Gran % (Auto) 0.500 Neut % (Auto) 40.8 L Lymph % (Auto) 45.8 H [place] % (Auto) 10.6 H Eos % (Auto) 2.0 Baso % (Auto) 0.3 Absolute Neuts (auto) 1.6 L Absolute Lymphs (auto) 1.81 Nucleated RBC % 0 Sodium 132 L Potassium 3.6 Chloride 101 Carbon Dioxide 25.0 Anion Gap 6 BUN 10 Creatinine 0.74 Estim Creat Clear Calc 69.38 Est GFR (MDRD) Af Amer 104 Est GFR (MDRD) Non-Af 86 BUN/Creatinine Ratio 13.5 Glucose 98 Lactic Acid 1.7 Calcium 8.7 Total Bilirubin 0.60 AST 146 H ALT 167 H Alkaline Phosphatase 123 H Total Protein 7.6 Albumin 3.5 Globulin 4.1 Albumin/Globulin Ratio 0.9 Lipase 161 H Urine Color Yellow Urine Clarity Clear Urine pH 7.0 Ur Specific [place] 1.005 Urine Protein Negative Urine Glucose (UA) Normal Urine Ketones Negative Urine Occult Blood Negative Urine Nitrite Negative Urine Bilirubin Negative Urine Urobilinogen Normal Ur Leukocyte Esterase Negative Urine RBC 0-5 SEEN Urine WBC 0-5 SEEN Ur Squamous Epith Cells 0-5 SEEN Urine Bacteria RARE Urine Mucus 0 SEEN Radiography Diagnostic Testing: Clinical Impression(s) from Imaging Studies Gallbladder Ultrasound 11/27/22 17:54 IMPRESSION: Coarse and heterogenous liver with mild contour nodularity. Findings are suggestive of cirrhosis. No evidence of focal hepatic mass or portal venous hypertension. Questionable 3 mm gallbladder wall polyp. No further follow-up is necessary at this time. Electronically Signed: Wilder Baeza MD at 18:48 EDT , Abdomen/Pelvis CT 11/27/22 18:52 IMPRESSION: 5 mm stone close to the expected location of the right ureterovesical junction with no hydroureteronephrosis. This could represent a distal ureteral stone versus phlebolith. There is also some masslike thickening in this area which could represent the right ovary, however cannot rule out malignancy. Recommend CT urogram for further evaluation. Cirrhotic liver with evidence of portal hypertension including mild splenomegaly. Grade 1 anterolisthesis L4 on L5. Electronically Signed: Wilder Baeza MD at 20:02 EDT , Discharge Plan Triage Chief Complaint: Abd Pain ED Provider: Chanel Saleh Dx/Rx/DC Orders Clinical Impression: Abdominal pain Instructions: ED Abdominal Pain Unkn Cause Fem Prescriptions: No Action amlodipine 2.5 mg tablet 2.5 mg PO DAILY epinephrine 0.3 mg/0.3 mL auto-injector 0.3 mg IM ONCE Rx Instructions: as a single dose; may repeat once budesonide [Pulmicort] 1 mg/2 mL suspension for nebulization 0.5 mg inhalation BID triamcinolone acetonide 0.1 % cream 1 applic topical DAILY naproxen 500 mg tablet 500 mg PO BID PRN (Reason: pain) carvedilol 12.5 mg tablet 12.5 mg PO BID Qty: 180 1RF Rx Instructions: must administer with a meal/food aspirin 81 mg tablet,delayed release (DR/EC) 81 mg PO DAILY fluticasone propionate 1 SPRAY spray,suspension 2 spray NASAL DAILY citalopram 20 MG tablet 20 mg PO DAILY montelukast 10 MG tablet 10 mg PO DAILY hydrochlorothiazide 25 MG tablet 25 mg PO DAILY losartan 100 MG tablet 100 mg PO DAILY levalbuterol tartrate 15 GM HFA aerosol inhaler 15 g IH Q4H PRN PRN (Reason: Shortness Of Breath) lansoprazole 30 mg capsule,delayed release(DR/EC) 30 mg PO DAILY metformin 500 mg tablet extended release 24 hr 1,000 mg PO BID Primary Care Provider: Opal Bernal Referrals: Ilya Sloan MD [Med Staff - Active Staff] - 3-5 Days Opal Bernal MD [Primary Care Provider] - Kyra Wylie MD [Med Staff - Active Staff] - 3-5 Days Disposition Disposition: Home, Self Care Discharge Date/Time: 11/27/22 21:05
[2022-11-27] MEDS: 0.9% Normal Saline 1,000 ML 125 ML IV (16:44)
[2022-11-27 16:58] LABS: Absolute Lymphocyte Count 1.81 X10^3/uL (0.83-4.51); Absolute Neutrophil Count 1.6 X10^3/uL (2.0-7.7); Basophil# 0.01 X10^3/uL; Basophil% 0.3 % (0-1); Eosinophil# 0.08 X10^3/uL; Hematocrit 36.2 % (37-47); Hemoglobin 12.1 g/dL (12.0-15.0); Lymphocyte # 1.81 X10^3/ul (0.83-4.51); Lymphocyte % 45.8 % (19-41); Mean Corp Hgb Conc 33.4 g/dL (32-36); Mean Corpuscular Hgb 31.2 pg (27.0-32.0); Mean Corpuscular Volume 93.3 fL (81-99); Mean Platelet Vol. 12.1 fl (6.2-12.0); Monocyte# 0.42 X10^3/uL; Monocyte% 10.6 % (0-10); NRBC Flagged by Analyzer 0 % (0-5); Neutrophil # 1.61 X10^3/uL (2.7-7.7); Neutrophil % 40.8 % (47-70); POSITIVE COUNT NO; POSITIVE DIFFERENTIAL NO; POSITIVE MORPHOLOGY NO; Platelet Count 138 K/mm3 (150-450); RBC Distribution Width CV 13.5 % (11.6-14.6); RBC Distribution Width SD 45.4 fl (35.1-43.9); Red Blood Count 3.88 M/mm3 (4.2-5.4)
[2022-11-27 17:13] LABS: ALB/GLOB Ratio 0.9 RATIO (0.9-2.4); AST(SGOT) 146 U/L (15-37); Alanine Aminotransfer ALT/SGPT 167 U/L (13-56); Albumin, Serum 3.5 g/dL (3.2-5.0); Alkaline Phosphatase 123 U/L (45-117); Anion Gap 6 (5-15); BUN 10 mg/dL (7-18); BUN/Creat Ratio 13.5 RATIO (10-20); Calcium,Total 8.7 mg/dL (8.5-10.1); Chloride 101 mmol/L (98-107); Creatinine, Serum 0.74 mg/dL (0.55-1.02); EST Glomerular Filtration Rate 86 mL/min (>60); Est Glom Filt Rate - Afr Amer 104 mL/min (>60); Estimated Creatinine Clearance 69.38 ml/min; Globulin 4.1 g/dL (2.2-4.2); Glucose 98 mg/dL (74-106); Lipase 161 U/L (13-75); Potassium 3.6 mmol/L (3.5-5.1); Protein, Total 7.6 g/dL (6.4-8.2); Sodium Level 132 mmol/L (136-145)
[2022-11-27 17:17] LABS: Lactic Acid 1.7 mmol/L (0.4-1.9)
--- NOTE | 2022-11-27 17:54 | US_ITS ---
INDICATION: abdominal pain EXAMINATION: US Abdomen RUQ (limited) TECHNIQUE: Godwin-scale and color Doppler imaging was performed of the right upper abdominal quadrant. COMPARISON: 01/06/2020. Findings: The liver is coarse in echotexture and heterogenous, with areas of increased and decreased echogenicity. There is mild contour nodularity suggestive of cirrhosis. No focal hepatic mass is identified. The main portal vein is normal in size and patent demonstrating hepatopetal flow. There is a questionable 3 mm gallbladder wall polyp seen only on sagittal view. The gallbladder is otherwise unremarkable without evidence of stones, wall thickening or pericholecystic fluid. Sonographic Du''s tenderness is not appreciated. There is no evidence of intrahepatic biliary ductal dilatation. The CBD is nondilated measuring 4 mm at the level of the eva hepatis. The visualized portions of the pancreas are unremarkable without evidence of focal or diffuse enlargement. Specifically, the tail is obscured by overlying bowel gas. Right kidney measures 13.3 cm in length. It is normal in echogenicity. No focal renal lesion is identified. There is no evidence of hydronephrosis. US/Gallbladder IMPRESSION: Coarse and heterogenous liver with mild contour nodularity. Findings are suggestive of cirrhosis. No evidence of focal hepatic mass or portal venous hypertension. Questionable 3 mm gallbladder wall polyp. No further follow-up is necessary at this time. Electronically Signed: Wilder Baeza MD at 18:48 EDT ,
[2022-11-27 18:44] LABS: Mucous, Urine 0 SEEN /hpf (<or=2+)
[2022-11-27 18:49] LABS: Color, Urine Yellow (Yellow); Glucose, Dipstick Normal (Normal); Ketone-Dipstick Negative (Negative); Leukocyte Esterase-Dipstick Negative /ul (Negative); Nitrite-Dipstick Negative (Negative); Occult Blood-Urine Negative /ul (Negative); Protein-Dipstick Negative (Negative); Specific Gravity, Urine 1.005 (1.002-1.030); Urine Bilirubin Dipstick Negative (Negative); Urine Clarity Clear (Clear); Urine Urobilinogen Normal (Normal)
--- NOTE | 2022-11-27 18:52 | CT_ITS ---
INDICATION: abdominal pain EXAMINATION: CT Abdomen And Pelvis W/ Contrast Injection TECHNIQUE: Helically acquired images were obtained of the abdomen and pelvis after IV contrast. A radiation dose optimization technique was used for this scan. IV Contrast dosage and agent: IV 100mL [id number]-300 Oral contrast: None. COMPARISON: None. FINDINGS: Visualized lung bases: Unremarkable Liver: Nodular contour compatible with cirrhosis. Gallbladder: Unremarkable Spleen: The spleen is mildly enlarged. Pancreas: Unremarkable Adrenal Glands: Unremarkable Kidneys: 5 mm stone close to the expected location of the right ureterovesical junction with no hydroureteronephrosis. There is also some masslike thickening in this area. Vasculature: Mild scattered aortoiliac atherosclerotic calcifications. GI Tract: Unremarkable Lymphadenopathy: Prominent retroperitoneal lymph nodes. Peritoneum: No ascites. Bladder: Unremarkable Reproductive organs: Status post hysterectomy. Bones/Soft tissues: There are diffuse degenerative changes of the spine. Grade 1 [address]ol[address] on L5. CT/Abdomen/Pelvis W IV Cont ONLY IMPRESSION: 5 mm stone close to the expected location of the right ureterovesical junction with no hydroureteronephrosis. This could represent a distal ureteral stone versus phlebolith. There is also some masslike thickening in this area which could represent the right ovary, however cannot rule out malignancy. Recommend CT urogram for further evaluation. Cirrhotic liver with evidence of portal hypertension including mild splenomegaly. Grade 1 anterolisthesis L4 on L5. Electronically Signed: Wilder Baeza MD at 20:02 EDT ,
[2022-11-27 18:57] LABS: Bacteria RARE /hpf (None Seen); Red Blood Cells-Urine 0-5 SEEN /hpf (0-5); Squamous Epithelial Cells - UA 0-5 SEEN /hpf (5-10); White Blood Cells 0-5 SEEN /hpf (0-5)
[2022-11-27 21:04] VITALS: RESP 16
== END 2022-11-27 21:05 | disposition home or self-care (01) ==
PROVIDERS: Emergency Provider Emergency Medicine; PCP Internal Medicine; Visit Provider Emergency Medicine
DX: R10.9 Unspecified abdominal pain (principal); E11.9 Type 2 diabetes mellitus without complications; I10 Essential (primary) hypertension; Z79.899 Other long term (current) drug therapy; Z79.82 Long term (current) use of aspirin; Z79.84 Long term (current) use of oral hypoglycemic drugs; Z98.41 Cataract extraction status, right eye; Z98.42 Cataract extraction status, left eye; Z90.710 Acquired absence of both cervix and uterus
CPT/HCPCS: 74177; 76705; 80053; 81001; 83605; 83690; 85025; 96360; 96361; 99283; J7030; Q9967; A4216

== ENCOUNTER 2022-12-03 11:11 | Emergency (ER) | payer OTHER, SELFPAY ==
[2022-12-03 11:12] VITALS: BP 125/81; PULSE 86; RESP 18; TEMP 36.5; O2SAT 99; BMI 33.3
--- NOTE | 2022-12-03 11:27 | VDLE_ITS ---
Reason For Study: SWELLING RIGHT GSV is normal. CFV is compressible, spontaneous, phasic, competent and demonstrates normal augmentation. FV is compressible, spontaneous, phasic, competent and demonstrates normal augmentation. POP V is compressible, spontaneous, phasic, competent and demonstrates normal augmentation. T/P Trunk is compressible. PTV is compressible. RT PerV is compressible. Procedure This is a venous duplex using B-mode, color flow and spectral Doppler. Exam performed portable in ED. The exam was diagnostic. A preliminary report was called and/or faxed to Dr Zay Burt @ 12:20 pm. VL/Venous Duplex US, Unilateral Interpretation Summary Deep veins of the right lower extremity are patent and compressible segmentally . There is no evidence of right lower extremity deep vein thrombosis. The right great sapheno us vein appears patent and compressible segmentally. Ordering Physician: Damian Casper Referring Physician: Gabe Joseph Performed By: Minerva Franklin, TAINA, RVT
--- NOTE | 2022-12-03 11:34 | EDS_ITS ---
<Statement entered by Myriam Burt MD - 12/03/22 15:54> I have personally performed a face to face assessment of the patient and have reviewed the ZURDO Note. Patient presents with redness and pain to the lateral right distal lower leg. She was sent to rule out DVT. Patient states yesterday the area was red, however appears significant proved today. It is been bothering her for several weeks but got worse yesterday. Patient sitting upright in bed no acute distress. Nontoxic-appearing. Lower extremity examination reveals very minimal erythema to the distal right lateral lower leg. No significant erythema. No open wounds appreciated. No lymphangitic streaking. No calf tenderness. Strong distal pulses with full range of motion. Venous ultrasound reveals no evidence of DVT. Test results are discussed with the patient. Clinically I do not believe she has cellulitis or needs to be placed on antibiotics at this time. Liban wrap was applied for light compression and she was instructed on leg elevation. Return instructions given. HPI History of Present Illness Chief Complaint: Lower Extremity Injury Narrative Narrative: Patient is a 57-year-old female with multiple health issues secondary to autoimmune disease, diabetes, Graves' disease, hypertension presents the emergency department with some redness to the right lower extremity. Patient states she went to urgent care, last evening she noticed that there was redness around her ankle that wraps around the back, patient had some pain with walking. Urgent care was concerned of DVT so they sent her to the emergency department. Patient denies any history of DVT, no recent trips or travel, no recent surgeries. [facility] Medical History (Updated 12/03/22 @ 12:36 by YUNI Carson) Abnormal exercise tolerance test Abnormal finding on EKG Cervicalgia Diabetes Essential hypertension Fibromyalgia Graves disease Srini's disease HSV-2 infection Interstitial lung disease Lupus Mixed connective tissue disease Raynaud disease Home Medications citalopram 20 mg tablet 20 mg PO DAILY 05/15/20 [History Last Taken Unknown] fluticasone propionate 50 mcg/actuation nasal spray,suspension 2 spray NASAL DAILY 05/15/20 [History Last Taken Unknown] hydrochlorothiazide 25 mg tablet 25 mg PO DAILY 05/15/20 [History Last Taken Unknown] levalbuterol tartrate 45 mcg/actuation aerosol inhaler 15 g IH Q4H PRN PRN Shortness Of Breath 05/15/20 [History Last Taken Unknown] losartan 100 mg tablet 100 mg PO DAILY 05/15/20 [History Last Taken Unknown] montelukast 10 mg tablet 10 mg PO DAILY 05/15/20 [History Last Taken Unknown] amlodipine 2.5 mg tablet 2.5 mg PO DAILY 08/04/22 [History Last Taken Unknown] budesonide 1 mg/2 mL suspension for nebulization (Pulmicort) 0.5 mg inhalation BID 08/04/22 [History Last Taken Unknown] epinephrine 0.3 mg/0.3 mL injection, auto-injector 0.3 mg IM ONCE 08/04/22 [History Last Taken Unknown] triamcinolone acetonide 0.1 % topical cream 1 applic topical DAILY 08/04/22 [History Last Taken Unknown] lansoprazole 30 mg capsule,delayed release 30 mg PO DAILY 08/08/22 [History Last Taken Unknown] metformin 500 mg tablet,extended release 24 hr 1,000 mg PO BID 08/08/22 [History Last Taken Unknown] naproxen 500 mg tablet 500 mg PO BID PRN pain 08/08/22 [History Last Taken Unknown] aspirin 81 mg tablet,delayed release 81 mg PO DAILY 11/16/22 [History Last Taken Unknown] carvedilol 12.5 mg tablet 12.5 mg PO BID #180 tabs 11/28/22 [Rx Last Taken Unknown] Allergy/AdvReac Type Severity Reaction Status Date / Time cantaloupe Allergy Angioedema Verified 12/03/22 11:12 Sulfa (Sulfonamide Allergy Hives Verified 12/03/22 11:12 Antibiotics) Family History Mother CAD (coronary artery disease) stents Hypertension Vertigo Pacemaker Enlarged heart Father Cancer prostate Sister Sjogrens syndrome Grandmother Heart disease Grandfather Heart disease Uncle Heart disease Enlarged heart Surgical History Hx of bilateral cataract extraction Hx of dilation and curettage Hx of hysterectomy Hx of sinus surgery Hx of tonsillectomy Social History Smoking Status: Never smoker alcohol intake: current alcohol intake frequency: holidays/special occasions only substance use type: does not use caffeine: Yes Type: coffee Number of servings: 1 ROS ROS ED ROS Narrative Constitutional: Negative for fever, chills, weight loss, weakness Eyes: Negative for vision loss, vision change, double vision ENT: Negative for any sore throat, ear pain, congestion Cardiovascular: Negative for any chest pain, tightness, palpitations Respiratory: Negative for any cough, sputum production, hemoptysis, dyspnea, dyspnea on exertion, orthopnea Gastrointestinal: Negative for any abdominal pain, nausea, vomiting, diarrhea, constipation, blood in stool, blood in vomit : Negative for any urinary frequency, dysuria, retention, blood in urine Muscle skeletal: Negative for any muscle joint pain, stiffness, myalgias, arthralgias, neck pain, back pain. Positive for right lower leg pain and redness Neurological: Negative for any headache, syncope, numbness or tingling, dizziness Skin: Negative for any rashes, lumps, itching, abrasions, lacerations Psychiatric: Negative for any depression, anxiety, stress, suicidal ideation, homicidal ideation Hematologic: Negative for any easy bruising, excessive bruising, easy bleeding Allergies: Negative for any eczema, hives, rash EXAM Physical Exam Narrative Exam Narrative: Vital signs reviewed. HEET: Head normocephalic atraumatic, TMs clear bilaterally. Posterior pharynx is clear, moist mucous membranes. Nares clear bilaterally. Neck: Supple with no lymphadenopathy or tenderness. No signs of meningismus, negative jolt sign. Cardiac: Regular rate and rhythm no murmurs gallops or rubs, equal peripheral pulses bilaterally. Respiratory: Lungs clear to auscultation bilaterally. No chest tenderness. Abdomen: Soft, nontender, nondistended. No abdominal bruit or pulsatile masses. No hepatosplenomegaly Extremities: No peripheral edema, no signs of gross trauma or deformity. Active full range of motion of all extremities. Patient does have slight warmth to the lateral aspect of the right lower extremity just above the lateral malleolus. +2 pedal pulse. There is no excessive swelling. There is no pain outpatient the calf however the pain is worse when she walks. There is no open wounds. There is no abrasions. Neuro: Cranial nerves II through XII intact, no focal neurological deficits. Skin: Clean dry and intact with no rash, purpura, petechiae, vesicles or pust ules. Backs/flank: No CVA tenderness, no midline spinal tenderness, no deformity. Psych: Normal mood and affect. No SI, HI or acute psychosis. Const Vital Signs: 12/03/22 11:12 Temperature 97.7 F L Temperature Source Temporal Pulse Rate 86 Respiratory Rate 18 Blood Pressure 125/81 H Blood Pressure Mean 95 Pulse Ox 99 Oxygen Delivery Method Room Air [facility] Treatment and Re-Evaluation :: Patient appears generally well, patient appears nontoxic, vital signs are stable. Patient presents to the emergency department for right lower leg pain, redness. Patient is concern for DVT. Patient will has a venous duplex completed to the right lower extremity Patient's venous duplex was negative for any DVT. At this time there is low suspicion for any cellulitis. Patient will given an Liban wrap, for compression. She will ice and elevate. She is instructed to follow-up with her PCP. All questions answered, patient stable for discharge she instructed return for any worsening symptoms, redness, swelling Discharge Plan Triage Chief Complaint: Lower Extremity Injury ED Midlevel Provider: Damian Casper ED Provider: Myriam Burt Dx/Rx/DC Orders Clinical Impression: Leg pain Instructions: CHRISTOPHER SIMPSON Muscle Strain, Extremity Prescriptions: No Action amlodipine 2.5 mg tablet 2.5 mg PO DAILY epinephrine 0.3 mg/0.3 mL auto-injector 0.3 mg IM ONCE Rx Instructions: as a single dose; may repeat once budesonide [Pulmicort] 1 mg/2 mL suspension for nebulization 0.5 mg inhalation BID triamcinolone acetonide 0.1 % cream 1 applic topical DAILY naproxen 500 mg tablet 500 mg PO BID PRN (Reason: pain) aspirin 81 mg tablet,delayed release (DR/EC) 81 mg PO DAILY fluticasone propionate 1 SPRAY spray,suspension 2 spray NASAL DAILY citalopram 20 MG tablet 20 mg PO DAILY montelukast 10 MG tablet 10 mg PO DAILY hydrochlorothiazide 25 MG tablet 25 mg PO DAILY losartan 100 MG tablet 100 mg PO DAILY levalbuterol tartrate 15 GM HFA aerosol inhaler 15 g IH Q4H PRN PRN (Reason: Shortness Of Breath) lansoprazole 30 mg capsule,delayed release(DR/EC) 30 mg PO DAILY metformin 500 mg tablet extended release 24 hr 1,000 mg PO BID carvedilol 12.5 mg tablet 12.5 mg PO BID Qty: 180 1RF Rx Instructions: must administer with a meal/food Primary Care Provider: Opal Bernal Referrals: Opal Bernal MD [Primary Care Provider] - Activity Restrictions/Additional Instructions: Use the Liban wrap for comfort, ice and elevate. Return for any worsening symptoms Disposition Disposition: Home, Self Care
== END 2022-12-03 12:43 | disposition home or self-care (01) ==
PROVIDERS: Emergency Provider Emergency Medicine; PCP Internal Medicine; Visit Provider Emergency Medicine
DX: M79.604 Pain in right leg (principal); E11.9 Type 2 diabetes mellitus without complications; I10 Essential (primary) hypertension; Z79.899 Other long term (current) drug therapy; Z79.84 Long term (current) use of oral hypoglycemic drugs; Z79.82 Long term (current) use of aspirin; Z90.710 Acquired absence of both cervix and uterus
CPT/HCPCS: 93971; 99282

== ENCOUNTER → 2022-12-07 | Outpatient (CLI) | payer OTHER, SELFPAY ==
--- NOTE | 2022-12-07 07:54 | CT_ITS ---
STUDY: CT ABDOMEN AND PELVIS WITH AND WITHOUT CONTRAST REASON FOR EXAM: Female, 57 years old. Right upper quadrant/mid abdominal pain. Frequent UTIs. RADIATION DOSAGE (If Supplied By Facility): CTDIvol = ( 26.37 ) mGy, DLP = ( 3205.89 ) mGycm TECHNIQUE: Transaxial images were obtained from the dome of the diaphragm to the symphysis pubis without oral contrast. IV 100mL Isovue-370 was administered. Sagittal and coronal images were reconstructed. Individualized dose optimization techniques were used for this CT. COMPARISON: Comparison is made with prior study dated November 27, 2022. FINDINGS: The visualized lung bases are unremarkable. The visualized portions of the heart are within normal limits. There is decreased attenuation of the liver consistent with steatosis. I suspect tiny layering gallstones along the dependent portion of the gallbladder lumen. Normal spleen. Normal pancreas. Normal bilateral adrenal glands. Normal right kidney. Normal left kidney. There is a small hiatal hernia. Normal small intestine. Normal colon. There is non-visualization of the appendix. There is scattered atherosclerotic calcification of the abdominal aorta, without a demonstrated aneurysm. Normal inferior vena cava. There is borderline retroperitoneal lymphadenopathy with enlarged nodes no greater than 10mm in the short axis diameter. Normal urinary bladder. There is absence of the uterus consistent with a prior hysterectomy. Normal abdominal wall. Straightening of the normal lumbar lordosis. Minimal anterior listhesis of L4 on L5. CT/CT Abd/Pelvis W/WO Contrast IMPRESSION: Fatty infiltration of the liver. No obstructive uropathy is seen. Status post hysterectomy. Electronically Signed: Bhupinder Willis MD at 14:58 EDT ,
== END | disposition home or self-care (01) ==
PROVIDERS: PCP Internal Medicine; Referring Provider Urology; Visit Provider Urology
DX: R93.89 Abnormal findings on diagnostic imaging of other specified body structures (principal); R10.9 Unspecified abdominal pain
CPT/HCPCS: 74178; Q9967

== ENCOUNTER → 2022-12-14 | Outpatient (CLI) | payer OTHER, SELFPAY ==
--- NOTE | 2022-12-14 07:58 | US_ITS ---
STUDY: ABDOMINAL ULTRASOUND - RIGHT UPPER QUADRANT; ELASTOGRAPHY REASON FOR VISIT: Female, 57 years old. Abdominal pain. TECHNIQUE: Ultrasound evaluation of the right upper quadrant was performed with real-time and static blanco-scale imaging. Point quantification shear wave elastography was performed ([employer]). TECHNICAL QUALITY: Adequate. COMPARISON: Comparison is made with prior study dated November 27, 2022. FINDINGS: Liver: The liver measures 17.3 cm. There is a heterogeneous echogenicity of the liver. The bile ducts are within normal limits. There is hepatic color flow. The direction of portal flow is hepatopetal. There is no demonstrated mass lesion. Median liver stiffness measured 11 kPa. Gallbladder: Normal distended gallbladder. The gallbladder wall measures 1.9 mm. There is a negative sonographic Du''s sign. There is no pericholecystic fluid. There are no gallstones. Common Bile Duct (C.B.D.): The common bile duct measures 1.9 mm. Pancreas: There is increased echogenicity of the pancreas. There is no demonstrated pancreatic mass or cyst. Right Kidney: Normal size of the right kidney. The right kidney measures 12.4 cm x 5.4 cm x 5.6 cm. Normal renal cortex. The right cortex measures 1.9 cm. There is no demonstrated renal mass or cyst. There is no right hydronephrosis. Splenomegaly. US/ABD Complete w/ Elastography IMPRESSION: 1. Liver stiffness measures 11 kPa compatible with F2-F3 (Mild to moderate liver fibrosis) Metavir score. Electronically Signed: Bhupinder Willis MD at 8:59 EDT ,
== END | disposition home or self-care (01) ==
PROVIDERS: PCP Internal Medicine
DX: R10.9 Unspecified abdominal pain (principal)
CPT/HCPCS: 76700; 76981

== ENCOUNTER 2022-12-27 12:56 | Observation (INO) | payer OTHER, SELFPAY ==
--- NOTE | 2022-11-16 16:03 | RAD_ITS ---
INDICATION: GARCIA- for heart cath EXAMINATION/TECHNIQUE: X-RAY - XR Chest 2 Views COMPARISON: None. FINDINGS: LINES/DEVICES: None. LUNGS: No pulmonary edema or focal airspace consolidation. No sizable pleural effusion. No pneumothorax detected. MEDIASTINUM AND CARDIOVASCULAR STRUCTURES: Heart size within normal limits. Mediastinal contours unremarkable. BONES AND SOFT TISSUES: Chronic right 6th rib fracture. RAD/Chest PA and Lateral IMPRESSION: No radiographic evidence of acute cardiopulmonary disease. Electronically Signed: Esvin Torres MD at 23:56 EDT ,
[2022-11-16 17:23] LABS: Hemoglobin 12.1 g/dL (12.0-15.0); Mean Corp Hgb Conc 33.6 g/dL (32-36); Mean Corpuscular Hgb 31.8 pg (27.0-32.0); Mean Corpuscular Volume 94.7 fL (81-99); Mean Platelet Vol. 12.1 fl (6.2-12.0); Platelet Count 162 K/mm3 (150-450); RBC Distribution Width CV 13.7 % (11.6-14.6); RBC Distribution Width SD 48.1 fl (35.1-43.9); White Blood Count 4.5 K/mm3 (4.4-11.0)
[2022-11-16 17:39] LABS: International Normalized Ratio 1.1; Partial Thromboplast Time 31.7 Seconds (24.1-36.2)
[2022-11-16 17:58] LABS: ALB/GLOB Ratio 0.8 RATIO (0.9-2.4); AST(SGOT) 200 U/L (15-37); Alanine Aminotransfer ALT/SGPT 211 U/L (13-56); Albumin, Serum 3.4 g/dL (3.2-5.0); Alkaline Phosphatase 138 U/L (45-117); Anion Gap 10 (5-15); BUN 11 mg/dL (7-18); BUN/Creat Ratio 14.5 RATIO (10-20); Calcium,Total 8.7 mg/dL (8.5-10.1); Chloride 100 mmol/L (98-107); Cholesterol 154 mg/dL (200); Creatinine, Serum 0.76 mg/dL (0.55-1.02); EST Glomerular Filtration Rate 83 mL/min (>60); Est Glom Filt Rate - Afr Amer 101 mL/min (>60); Globulin 4.3 g/dL (2.2-4.2); Glucose 148 mg/dL (74-106); High Density Lipoprotein 32 mg/dL; Potassium 3.8 mmol/L (3.5-5.1); Protein, Total 7.7 g/dL (6.4-8.2); Sodium Level 135 mmol/L (136-145); Triglycerides 210 mg/dL; Very Low Density Lipoprotein 42 mg/dL (5-40)
[2022-11-21 07:12] VITALS: BMI 33.6
--- NOTE | 2022-12-26 21:47 | PCM.HP.BLA ---
History and Physical Date of Admission: 12/27/22 The patient is here for a heart catheterization. She continues to have fatigue and some shortness of breath with climbing a flight of stairs. Denies any palpitations. No chest pains. Patient has had coronary calcium scoring done. She was noted to have significant calcium burden in her LAD. Intake Vital Signs: See EMR Intake Visit Reasons: [facility] Housekeeping Room Inspector Required: No Accompanied by: Self Is patient in pain?: No Allergies cantaloupe Allergy (Verified 11/16/22 14:56) AngioedemaSulfa (Sulfonamide Antibiotics) Allergy (Verified 11/16/22 14:56) Hives Medications See EMR Ejection fraction %: 65 to 70 PFSH Medical History Abnormal exercise tolerance test Abnormal finding on EKG Cervicalgia Diabetes Essential hypertension Fibromyalgia Graves disease HSV-2 infection Interstitial lung disease Lupus Mixed connective tissue disease Raynaud disease Surgical History Hx of bilateral cataract extraction Hx of dilation and curettage Hx of hysterectomy Hx of sinus surgery Hx of tonsillectomy Family History Mother CAD (coronary artery disease) stents Hypertension Vertigo Pacemaker Enlarged heartFather Cancer prostateSister Sjogrens syndromeGrandmother Heart diseaseGrandfather Heart diseaseUncle Heart disease Enlarged heart Social History Smoking Status: Never smoker alcohol intake: current alcohol intake frequency: holidays/special occasions only substance use type: does not use caffeine: Yes Type: coffee Number of servings: 1 ROS Const Const: Positive for fatigue, headache(s) and daytime sleepiness; Negative for weakness, frequent falls, difficulty sleeping or excessive sweating Eyes Eyes: Negative for loss of peripheral vision, transient loss of vision, blurry vision, double vision or tunnel vision ENT ENT: Positive for headache(s) and dizziness; Negative for Nosebleed/epistaxis or balance problems Cardio Chest Pain: Yes Frequency: other Character: other Onset: with meals Location: epigastric Duration: minutes Palpitations: Yes (occasionally) feels like its: fast Edema: Bilateral (normal ) Muscle aches with walking: None Resp Respiratory: Positive for SOB with activity; Negative for SOB at rest, SOB orthopnea\SOB lying down, Cough or paroxysmal nocturnal dyspnea GI GI: Positive for nausea (every morning) and heartburn; Negative vomiting or black,tarry stools : Negative for hematuria Musc Musc: Positive for muscle weakness (achy from autoimmune); Negative for muscle aches/ myalgia, joint pain or balance problems Skin Skin: Negative non-healing lesions, rash or unusual bruising Neuro Neuro: Positive for dizziness, lightheadedness (with stairs) and headache(s); Negative for near syncope, syncope, frequent falls, weakness, blurry vision, double vision or lack of coordination Peter Hematologic/Lymphatic: Negative for easy bleeding or easy bruising Endo Endo: Positive for fatigue; Negative for excessive sweating or increased thirst/drinking Psych Psych: Negative for anxiety or depression Allergy Allergy/Immunology: Negative for hives and Negative for rash Cardiology Exam Const Appearance: comfortable and no acute distress Nutritional Appearance: well nourished Neck Neck: no JVD Carotids: Negative bruit Chest Auscultation: Bilateral: Clear to Auscultation Cardio Rate: regular rate Rhythm: regular rhythm Heart sounds: S1 normal and S2 normal Neuro General: patient alert, patient awake and patient oriented x3 Extremities Lower Extremity Edema: None: Bilateral Supplemental Info Supplemental Information CORONARY ANGIOGRAPHY CT 10/13/22: Coronary Calcium Scoring: High-resolution Computed Tomographic imaging of the chest was performed on [ ], with particular attention paid to the coronary arteries. Images from the examination were analyzed for the presence and extent of coronary artery calcification , using coronary calcium quantification software. The patient tolerated the procedure well and there were no complications. The results of the coronary calcification analysis are provided below. Findings Coronary Artery Left Main (LM): 0 Left Anterior Descending (LAD): 207 Left Circumflex (LCX): 0 Right Coronary Artery (RCA): 0 Total Agatston Score: 207 Percentile Ranking: Greater than 90% Calcium Score: Moderate: 1-2 vessels w/moderate amt, 3 vessels w/mild amt of plaque Conclusion: Moderate plaque disease noted. The CT angiogram portion of the test was rather suboptimal to comment on stenosis. Would Recommend testing modality. ECHOCARDIOGRAM 06/22/22: -The left ventricle is normal in size. Left ventricular systolic function is normal. EF = 65 + 5%. Normal left ventricular diastolic function. -The right ventricle is normal in size. Right ventricular systolic function is normal. -There are no significant valvular abnormalities. Stress Test Report:Date: 08/31/2022 Procedure: The patient exercised on a Radu protocol for 6 minutes and 16 seconds achieving a peak heart rate of 150 bpm (91% predicted maximal heart rate) with a peak blood pressure 182/76 mmHg and a peak MET capacity of approximately 7.7 MET's. ? The baseline ECG demonstrated normal sinus rhythm.? The peak exercise ECG demonstrated 1.[address] depression in inferior leads. ? There were no cardiac dysrhythmias pretest, during exercise, or recovery. ? The functional capacity was considered average. ? The patient had no complaints of chest discomfort during exercise or recovery. ? The examination was discontinued secondary to target heart rate being achieved. ? Impression: 1.? Technically adequate (percent predicted maximal heart rate greater than 85%) exercise tolerance test 2.? Peak exercise ECG with ST depressions in inferior leads suggestive of ischemia. 3.? There were no cardiac dysrhythmias during exercise or recovery 13 DAY MONITOR 06/21/22: PRELIMINARY FINDINGS Patient had a min HR of 55 bpm, max HR of 184 bpm, and avg HR of 79 bpm. Predominant underlying rhythm was Sinus Rhythm. 15 Supraventricular Tachycardia runs occurred, the run with the fastest interval lasting 4 beats with max rate of 184 bpm, the longest lasting 18.5 secs with an avg rate of 116 bpm. Some episodes of Supraventricular Tachycardia may be possible Atrial Tachycardia with variable block. Supraventricular Tachycardia was detected within +/- 45 seconds of symptomatic patient event(s). Isolated SVEs were rare (<0.01%), SVE Couplets were rare (<0.01%), and SVE Triplets were rare (<0.01%). Isolated VEs were rare (<0.01%), and no VE Couplets or VE Triplets were present. Difficulty discerning atrial activity making definitive diagnosis difficult to ascertain. CT CHEST WITHOUT CONTRAST 11/17/21: FINDINGS: CHEST Bilateral axillary lymph nodes.? The largest lymph node in the right axilla measures 2.1 cm. Mild increased linear markings at the lung bases slightly more prominent on the right side suggestive of a basilar scarring and mild bronchiectasis. There is no demonstrated pleural abnormality. There are calcifications of the coronary arteries. There are multiple small lymph nodes within the mediastinum, which are normal in size and morphology most compatible with reactive lymph hyperplasia.? Normal hilar regions. Normal unenhanced pulmonary arteries. Normal aorta arch and descending thoracic aorta. There are multi-level degenerative changes of the thoracic spine. Small hiatal hernia. Labs: LDL Cholesterol 109 mg/dL (0-130) HDL Cholesterol 39 mg/dL (40-) L Cholesterol 169 mg/dL (200) Triglycerides 105 mg/dL (-199) Assessment and Plan Assessment and Plan (1) Coronary artery disease: Status: Chronic Plan: No chest pain but fatigue and dyspnea with exertion. Abnormal stress test. Abnormal coronary calcium scoring. Discussed with patient. Options regarding continuing medical management versus coronary angiography with possible revascularization was offered. Risks and benefits explained. She understand these and wishes to proceed with coronary angiography. (2) Essential hypertension: Status: Chronic Plan: Blood pressure above goal. Carvedilol increased to 12.5 mg twice daily at office visit. (3) Raynaud disease: Status: Chronic Plan: Monitor for flareups with carvedilol. On amlodipine. (4) Graves disease: Status: Chronic Plan: As per endocrinology/primary care physician (5) Diabetes: Status: Chronic Plan: As per endocrinology/PCP
[2022-12-27] VITALS (17 sets, daily range): BP systolic 127–153; BP diastolic 68–125; PULSE 78–86; RESP 14–18; TEMP 36.4–37.1; O2SAT 96–100; BMI 33.6
--- NOTE | 2022-12-27 13:00 | EKG12_ITS ---
Test Reason : POST PCI Blood Pressure : / mmHG Vent. Rate : 069 BPM Atrial Rate : 069 BPM P-R Int : 182 ms QRS Dur : 072 ms QT Int : 428 ms P-R-T Axes : 047 004 031 degrees QTc Int : 458 ms Normal sinus rhythm Normal ECG When compared with ECG of 25-MAR-2019 12:45, No significant change was found Confirmed by LINCOLN KOENIG, JASMYNE ([id number]), clinical editor NORMA TORRES ([id number]) on 02/14/2023 11:25:37 AM Referred By: Alicia Manzano Confirmed By:JASMYNE STARK MD
--- NOTE | 2022-12-27 13:02 | DCINST_ITS ---
Discharge Instructions Diet Discharge Diet: 1999 Calorie Control Diet Activity Discharge Activity: Return to Normal Activity May resume sexual activity in: No Restrictions Dressing / Incision Call your doctor if your incision/area has: Continuous Slow Oozing, Sudden Increased Bleeding, Increased Pain/ Swelling, Increased Redness, Foul Smelling Discharge and Swelling at the incision site Call your doctor if you observe: Fever of 101 or Higher, Coldness, Increased Pain, Shortness of breath and Chest pain Follow Up Care Please Follow Up With: Alicia Manzano MD When: 2 weeks Test Results: Test results from this visit will be discussed in further detail at your follow- up appointment, if applicable. Discharge Plan Admission Attending Provider: Alicia Manzano Primary Care Provider: Opal Bernal Discharge Orders/Prescriptions Prescriptions: New Brilinta 90 mg Tablet 90 mg PO BID Qty: 60 6RF nitroglycerin 0.4 mg Tablet, Sublingual 0.4 mg sublingual Q5M PRN (Reason: Cardiac/Chest Pain) Qty: 15 6RF Continued amlodipine 2.5 mg tablet 2.5 mg PO DAILY epinephrine 0.3 mg/0.3 mL auto-injector 0.3 mg IM ONCE Rx Instructions: as a single dose; may repeat once budesonide [Pulmicort] 1 mg/2 mL suspension for nebulization 0.5 mg inhalation BID triamcinolone acetonide 0.1 % cream 1 applic topical DAILY naproxen 500 mg tablet 500 mg PO BID PRN (Reason: pain) aspirin 81 mg tablet,delayed release (DR/EC) 81 mg PO DAILY fluticasone propionate 1 SPRAY spray,suspension 2 spray NASAL DAILY citalopram 20 MG tablet 20 mg PO DAILY montelukast 10 MG tablet 10 mg PO DAILY hydrochlorothiazide 25 MG tablet 25 mg PO DAILY losartan 100 MG tablet 100 mg PO DAILY levalbuterol tartrate 15 GM HFA aerosol inhaler 15 g IH Q4H PRN PRN (Reason: Shortness Of Breath) lansoprazole 30 mg capsule,delayed release(DR/EC) 30 mg PO DAILY metformin 500 mg tablet extended release 24 hr 1,000 mg PO BID carvedilol 12.5 mg tablet 12.5 mg PO BID Qty: 180 1RF Rx Instructions: must administer with a meal/food Referrals / Follow Up: Opal Bernal MD [Primary Care Provider] - Disposition Disposition (needs filled in before D/C Order can be placed): Home, Self Care
--- NOTE | 2022-12-27 13:18 | CL.I_ITS ---
Patient Name: VIVI ANAND Study Date: 12/27/2022 Performing: Alicia Manzano MD Ht: 63 inches 160.02 cm : 1965 Wt: 189.99 lbs 86.18 kg Age: 57 Gender: female BSA: 1.89 PROCEDURE(S) PERFORMED DC02-(12850)LHC/COR IC12-([id number]/[id number])KRISTI W/WO PTCA, SINGLE CORONARY ARTERY IC13-(67299/[id number])KRISTI W/WO PTCA, EACH ADD'L ART, SAME MAJOR CLINICAL PROFILE AND CO-MORBIDITIES Indications: Suspected CAD Heart Failure: None Stress/Imaging Standard Exercise Stress Test: Yes Result: Positive Intermediate Risk CAD Presentations: Other: Dyspnea, likely angina equivalent CONCLUSIONS 90% prox LAD; 50% Mid LAD; 90% Mid D1 Successful KRISTI Prox LAD using Resolute Aníbal 3.5x8 mm, optimized proximally using 4.0 mm balloon Successful KRISTI Mid D1 using Resolute [place] 2.25x15 mm RECOMMENDATIONS ASA Indefinitley Brilinta for at least 12 months DESCRIPTION OF PROCEDURE The patient arrived to the procedure lab. The risks and benefits of the procedure as well as a full description of our services here and lack of surgical backup were fully explained to the patient and/or their significant other prior to the catheterization. The Timeout was completed, verifying the correct patient and procedure. The patient's procedural site was prepped and draped in the usual fashion. Local anesthetic was given subcutaneously to right radial region with Lidocaine 2%. Using a modified Seldinger technique, arterial access was obtained via the right radial artery, a 6Fr sheath was inserted.. Left Coronary Artery selective angiography was performed in multiple views using a 5 Fr. 4.0 [place] catheter. Right Coronary Artery selective angiography was then performed in multiple views using a 5 Fr. 4.0 [place] catheterThe images were reviewed and options discussed. A decision was then made to proceed with an Intervention, IVUS or other adjunct procedure. XB 3.0 Guide catheter was inserted and engaged into the LCA. Runthrough Guide wire was advanced to the LAD. 3.5 x 8 Aníbal Drug Eluting stent was advanced across the lesion in the LAD, proximal. Angiogram performed pre stent deployment. Angiogram performed post stent deployment. 2.25 x 18 Aníbal Drug Eluting stent was advanced across the lesion in the first diagonal, mid. Angiogram performed post stent deployment. 2.25 x 12 NC Emerge Balloon catheter was inserted post stent 1st Diag. 3.5 x 8 NC Euphora Balloon catheter was inserted. Balloon catheter was inserted post stent Prox LAD. 4 x 6 NC Euphora Balloon catheter was inserted post stent Prox LAD. Angiogram performed post balloon dilatation. The arterial sheath was pulled and a TR Band was applied for hemostasis. 9cc air inserted. CORONARY ANGIOGRAPHY DOMINANCE: Right Dominant LEFT HEART ASSESSMENT Left Ventricular Ejection Fraction: Not assessed LEFT MAIN: Angiographically normal LEFT ANTERIOR DESCENDING ARTERY: LAD: Luminal Irregularities 40% Mid lesion in LAD Tubular 50% Mid lesion in LAD CIRCUMFLEX ARTERY: CIRCUMFLEX: Tubular 30% Ostial lesion in Circumflex RIGHT CORONARY ARTERY: RCA: Calcified 20% Proximal lesion in RCA INTERVENTION INFORMATION LESION SITE: LAD (Proximal) Lesion Complexity: Non-High/Non-C, lesion length: 6 mm, Previously treated lesion: No Pre Stenosis: 90 % Pre intervention SALVATORE flow: 3 PROCEDURE: Drug Eluting Stent with post dilatation Post Stenosis: 0 % Post intervention SALVATORE flow: 3 Lesion Devices: Cordis 6 Fr XB3.0 100cm Guide Catheter Terumo .014 180cm Runthrough Extra Floppy straight Medtronic Resolute Aníbal RX KRISTI 3.5x08 Medtronic NC EUPHORA RX 3.5x08 BALLOON Medtronic NC EUPHORA RX 4.0x06 BALLOON LESION SITE: 1st Diagonal (Mid) Lesion Complexity: Non-High/Non-C, Previously treated lesion: No, lesion length: 13 mm Pre Stenosis: 90 % Pre intervention SALVATORE flow: 3 PROCEDURE: Drug Eluting Stent with post dilatation Post Stenosis: 0 % Post intervention SALVATORE flow: 3 Lesion Devices: Cordis 6 Fr XB3.0 100cm Guide Catheter Terumo .014 180cm Runthrough Extra Floppy straight Medtronic Resolute [place] RX KRISTI 2.25x15 Chun Sci NC EMERGE MR 2.25x12 BALLOON COMPLICATIONS No Complications PROCEDURE MEDICATIONS Versed 1 mg IV Fentanyl 50 mcg IV Versed 1 mg IV Fentanyl 50 mcg IV Oxygen: 2 L/min via nasal cannula Brilinta 180 mg PO @ 12/27/2022 12:21:36 Heparin given IA 12/27/2022 12:08:55 Heparin 6000 unit(s) IV 12/27/2022 12:20:39 Heparin 2000 unit(s) IV 12/27/2022 13:00:02 Nitro 200 mcg IC 12/27/2022 12:40:00 Verapamil 2.5mg, Ntg 200mcgs, 2000 units of Heparin given IA 12/27/2022 12:08:55 SUMMARY OF HEMODYNAMIC DATA Time AIR REST ECG 09:48:49 AO 94/61 (75) SA 12:13:32 AO 125/69 (93) 12:31:26 Signed By Alicia Manzano MD On 12/27/2022 13:17:23 Alicia Manzano MD
--- NOTE | 2022-12-27 13:23 | CRPHASE1_ITS ---
Patient Communication Patient Information Former Patient:: Phase I PHII Cardiac Rehab Discussed with Patient:: Yes Guide to Cardiac Rehab Given to Patient:: Yes Cardiac Rehab Facility Choice List Given to Patient:: Yes Communication to Cardiac Rehab Soft Sugar Operator Head:: Alicia Manzano Medical/Surgical History Medical History DE:: No Angina:: Yes CAD:: Yes Congestive Heart Failure: COPD:: Yes Diabetes:: Yes Diabetes Type II:: Yes Hypertension:: Yes Dyslipidemia:: Yes CVA/TIA: CEA:: No PE:: No DVT:: No PVD:: No PAD:: No Arthritis:: No GI:: No GERD:: No Cancer:: No Renal:: No Thyroid:: Yes Depression:: No Anxiety:: No Surgical History CABG: No ICD:: No Pacemaker:: No Cardiac Rehabilitation Info Program Information Cardiac Rehabilitation Program Information: Cardiac Rehab The cardiac rehab team at [facility] consists of highly skilled exercise physiologists, nurses, respiratory therapists and physicians working together with you. Our purpose is to help you have a full recovery and achieve the goals you set for yourself. Over the years many of our patients have returned to activities they assumed they would never do again! We can help restore your confidence and motivation to make lifestyle changes that can have a significant impact on your health and quality of life! We can help answer questions and concerns you may have about exercise, lifestyle, medications, diet, stress and anxiety which are common following a hospitalization. WE monitor ECG and vital signs during exercise and discuss your progress with you and report to your physician(s). Cardiac Rehab is proven to help reduce readmissions, improve functional capacity and lower recurrence of problems with your heart. Our Cardiac Rehab program is Certified by the [place] [employer] Pulmonary [employer] (AACVPR) and Accredited by the [place] [employer] through our [facility]. You can contact us at . We invite you to call us with your questions or to get started in our program. If you have other questions or concerns be sure to ask your physician/provider during your follow-up visit. WE look forward to seeing you!
--- NOTE | 2022-12-27 13:25 | CRPH1.INSTRU ---
General Education Discussed with Patient CAD and cardiac anatomy and function:: Patient communicates acknowledgment Explanation of diagnoses and procedures:: Patient communicates acknowledgment Sign/Symptoms of [place]:: Patient communicates acknowledgment Antiplatelet therapy: Patient communicates acknowledgment Proper use of NTG-SL: Patient communicates acknowledgment Emergency procedures and activation of EMS: Patient communicates acknowledgment Compliance of all prescribed medications: Patient communicates acknowledgment Smoking Risk Factors Patient Nicotine/Smoking Risk Factors Are:: Non-smoker Recommendations Recommendations Include:: Second-hand smoke recommendation Response Code Nicotine/Smoking Response Code:: Patient communicates acknowledgment Dyslipidemia Recommendations Recommendations Include:: Lipid profile not available Response Code Dyslipidemia Response Code:: Patient communicates acknowledgment Overweight/Obesity Risk Factors Patient Overweight/Obesity Risk Factors Are:: Obesity - > or = 30 Recommendations Recommendations Include:: Weight loss of 5-10%, Reduced calorie diet and Exercise 5-7 times/week Response Code Overweight/Obesity:: Patient communicates acknowledgment Hypertension Recommendations Recommendations Include:: Maintain BP <130/85 Response Code Hypertension:: Patient communicates acknowledgment Heart Disease Recommendations Recommendations Include:: Educated family members of their risk Response Code Heart Disease Response Code:: Patient communicates acknowledgment Diabetes Risk Factors Patient Diabetes Risk Factors Are:: Elevated blood sugars Recommendations Recommendations Include:: Maintain fasting blood sugars 70-110 md/dL, Maintain HgbA1c of 6% or less, Monitor blood sugar as prescribed, Diabetic dietary guidelines and Decrease/maintain body weight Response Code Diabetes:: Patient communicates acknowledgment Metabolic Syndrome Recommendations Recommendations Include:: Does not meet criteria Sedentary Recommendations Recommendations Include:: Benefits of regular exercise, Discussed home walking program and Monitored Outpatient Cardiac Rehab Response Code Sedentary Response Code:: Patient communicates acknowledgment Stress Recommendations Recommendations Include:: Identification of stressors, and assessment of coping skills Response Code Stress Response Code:: Patient communicates acknowledgment
[2022-12-27] MEDS: 0.9% Normal Saline 1,000 ML 150 ML IV (15:06)
[2022-12-27] MEDS: Acetaminophen 325 MG Tablet 650 MG PO (19:56)
[2022-12-27] MEDS: Carvedilol 12.5 MG Tablet PO (22:25)
[2022-12-27] MEDS: TICAGRELOR 90 MG TABLET PO (22:25)
[2022-12-28 03:30] VITALS: BP 135/73; PULSE 73; RESP 18; TEMP 36.6; O2SAT 98
[2022-12-28 05:41] VITALS: BMI 33.9
[2022-12-28 07:00] LABS: Hematocrit 33.8 % (37-47); Hemoglobin 11.2 g/dL (12.0-15.0); Mean Corp Hgb Conc 33.1 g/dL (32-36); Mean Corpuscular Hgb 31.5 pg (27.0-32.0); Mean Corpuscular Volume 94.9 fL (81-99); Mean Platelet Vol. 11.7 fl (6.2-12.0); Platelet Count 105 K/mm3 (150-450); RBC Distribution Width CV 14.1 % (11.6-14.6); Red Blood Count 3.56 M/mm3 (4.2-5.4); White Blood Count 3.3 K/mm3 (4.4-11.0)
[2022-12-28 07:05] VITALS: O2SAT 97
[2022-12-28 07:30] LABS: ACT Activated Clotting Time 239 sec (74-137)
[2022-12-28 07:53] LABS: ALB/GLOB Ratio 0.9 RATIO (0.9-2.4); AST(SGOT) 98 U/L (15-37); Alanine Aminotransfer ALT/SGPT 120 U/L (13-56); Alkaline Phosphatase 97 U/L (45-117); Anion Gap 6 (5-15); BUN 8 mg/dL (7-18); BUN/Creat Ratio 16.7 RATIO (10-20); Calcium,Total 8.5 mg/dL (8.5-10.1); Chloride 107 mmol/L (98-107); Creatinine, Serum 0.48 mg/dL (0.55-1.02); EST Glomerular Filtration Rate 142 mL/min (>60); Est Glom Filt Rate - Afr Amer 171 mL/min (>60); Estimated Creatinine Clearance 106.97 ml/min; Globulin 3.5 g/dL (2.2-4.2); Glucose 131 mg/dL (74-106); Protein, Total 6.5 g/dL (6.4-8.2); Sodium Level 138 mmol/L (136-145)
[2022-12-28 08:11] VITALS: BP 148/76; PULSE 75; RESP 14; TEMP 36.7; O2SAT 99
[2022-12-28] MEDS: Aspirin E.C. 81 MG Tablet PO (08:15)
--- NOTE | 2022-12-28 09:14 | PCM.PN.BLA ---
Progress Note Patient not on statin because of her elevated ALT/AST. Last LDL cholesterol 80 mg/dL. We will continue follow-up as outpatient.
--- NOTE | 2022-12-28 09:46 | PHA.DC.MC.R ---
Pharmacy [facility] has performed discharge medication reconciliation and counseling for this patient. The patient was counseled on the following discharge medications and changes in medications for homegoing were reviewed. 1. NITROSTAT 2. BRILINTA The Reason for Use, instructions for use, and potential side effects were reviewed for all new medications. The patient's questions regarding all of their medications were answered. The patient was able to verbally demonstrate an understanding of their discharge medications. The patient's discharge medication list was reviewed for discrepancies and discrepancies were resolved. The patient was counselled by Althea Rodriguez, Kevon Candidate
[2022-12-28] MEDS: Fluticasone 0.05% 1 SPRAY NASAL.SRY 2 SPRAY NASAL (09:48)
[2022-12-28] MEDS: amLODIPine 2.5 MG Tablet PO (09:49)
[2022-12-28] MEDS: TICAGRELOR 90 MG TABLET PO (09:49)
[2022-12-28] MEDS: Pantoprazole Sodium 40 MG Tablet PO (09:49)
[2022-12-28] MEDS: Carvedilol 12.5 MG Tablet PO (09:49)
[2022-12-28] MEDS: hydroCHLOROthiazide 25 MG Tablet PO (09:50)
[2022-12-28] MEDS: Citalopram 20 MG Tablet PO (09:50)
[2022-12-28] MEDS: Losartan Potassium 100 MG Tablet PO (09:50)
[2022-12-28] MEDS: Montelukast 10 MG Tablet PO (09:50)
--- NOTE | 2022-12-28 10:29 | CASEMGMT ---
Chelsea has order to discharge today. Patient was prescribed Brilinta. RN CM called Jorge Garcia to inquire about copy, $57.10. RN CM in to see patient and inquire about needs at discharge. Patient denies needs at discharge. Patient provided with Brilinta savings card. Patient had no further questions or concerns.
[2022-12-28 11:00] VITALS: BP 130/70; PULSE 72; RESP 14; TEMP 36.7; O2SAT 99
== END 2022-12-28 11:00 | disposition home or self-care (01) ==
LOC: CLSP 13:03 → PCU 14:58
PROVIDERS: Admitting Provider Internal Medicine Cardiovascular Disease; PCP Internal Medicine; Referring Provider Internal Medicine Cardiovascular Disease; Visit Provider Internal Medicine Cardiovascular Disease
DX: I25.10 Atherosclerotic heart disease of native coronary artery without angina pectoris (principal); M32.9 Systemic lupus erythematosus, unspecified; E11.9 Type 2 diabetes mellitus without complications; I10 Essential (primary) hypertension; R53.83 Other fatigue; R06.02 Shortness of breath; R94.39 Abnormal result of other cardiovascular function study; R94.31 Abnormal electrocardiogram [ECG] [EKG]; M79.7 Fibromyalgia; E05.00 Thyrotoxicosis with diffuse goiter without thyrotoxic crisis or storm; I73.00 Raynaud's syndrome without gangrene
CPT/HCPCS: 36415; 71046; 80053; 80061; 85027; 85347; 85610; 85730; 92928; 92929; 93005; 93454; 96360; 96361; 99152; 99153; 99221; C1725; J7030; J7040; Q9967; C1769; C1874; C1887; C1894; C9600; C9601; G0378

== ENCOUNTER 2022-12-31 13:44 | Emergency (ER) | payer OTHER, SELFPAY ==
[2022-12-31] VITALS (9 sets, daily range): BP systolic 130–141; BP diastolic 71–83; PULSE 76–99; RESP 18–31; TEMP 35.8–37; O2SAT 96–100; BMI 33.0
--- NOTE | 2022-12-31 14:34 | ED.VIS.CHEST ---
HPI History of Present Illness Chief Complaint: Chest Pain Narrative Narrative: 57-year-old female with past medical history of coronary artery disease, diabetes, hypertension, states she had a heart catheterization by Dr. Manzano on Sunday, 5 days ago. She reports that she was found to have 2 arteries that were 90% blocked, including the LAD, which were stented, and she was discharged from the hospital on . She had a radial artery catheterization. Yesterday, she began having chest pain. She noticed a low-grade fever, and went to urgent care today to get her urine checked although she is not having dysuria or hematuria. They sent her to the emergency department because she was having postoperative/post catheterization pain and chest pressure. She denies any nausea or vomiting, no shortness of breath or other symptoms currently. 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 She was concerned because the chest pain and the reported low-grade fever. [facility] Medical History Abnormal exercise tolerance test Abnormal finding on EKG Cervicalgia Diabetes Essential hypertension Fibromyalgia Graves disease Srini's disease HSV-2 infection Interstitial lung disease Lupus Mixed connective tissue disease Raynaud disease Home Medications citalopram 20 mg tablet 20 mg PO DAILY 05/15/20 [History Last Taken Unknown] fluticasone propionate 50 mcg/actuation nasal spray,suspension 2 spray NASAL DAILY 05/15/20 [History Last Taken Unknown] hydrochlorothiazide 25 mg tablet 25 mg PO DAILY 05/15/20 [History Last Taken Unknown] levalbuterol tartrate 45 mcg/actuation aerosol inhaler 15 g IH Q4H PRN PRN Shortness Of Breath 05/15/20 [History Last Taken Unknown] losartan 100 mg tablet 100 mg PO DAILY 05/15/20 [History Last Taken 12/27/22] montelukast 10 mg tablet 10 mg PO DAILY 05/15/20 [History Last Taken Unknown] amlodipine 2.5 mg tablet 2.5 mg PO DAILY 08/04/22 [History Last Taken 12/27/22] budesonide 1 mg/2 mL suspension for nebulization (Pulmicort) 0.5 mg inhalation BID 08/04/22 [History Last Taken Unknown] epinephrine 0.3 mg/0.3 mL injection, auto-injector 0.3 mg IM ONCE 08/04/22 [History Last Taken Unknown] triamcinolone acetonide 0.1 % topical cream 1 applic topical DAILY 08/04/22 [History Last Taken Unknown] lansoprazole 30 mg capsule,delayed release 30 mg PO DAILY 08/08/22 [History Last Taken Unknown] metformin 500 mg tablet,extended release 24 hr 1,000 mg PO BID 08/08/22 [History Last Taken 12/26/22] naproxen 500 mg tablet 500 mg PO BID PRN pain 08/08/22 [History Last Taken Unknown] aspirin 81 mg tablet,delayed release 81 mg PO DAILY 11/16/22 [History Last Taken 12/27/22] carvedilol 12.5 mg tablet 12.5 mg PO BID #180 tabs 11/28/22 [Rx Last Taken 12/27/22] nitroglycerin 0.4 mg sublingual tablet 0.4 mg sublingual Q5M PRN Cardiac/Chest Pain #15 tabs 12/27/22 [Rx Last Taken Unknown] ticagrelor 90 mg tablet (Brilinta) 90 mg PO BID #60 tabs 12/27/22 [Rx Last Taken Unknown] cephalexin 500 mg capsule 500 mg PO Q12 #14 CAPSULES 12/31/22 [Rx Last Taken Unknown] Allergy/AdvReac Type Severity Reaction Status Date / Time cantaloupe Allergy Angioedema Verified 12/31/22 13:45 Sulfa (Sulfonamide Allergy Hives Verified 12/31/22 13:45 Antibiotics) levofloxacin [From Levaquin] AdvReac Intermediate Hives Verified 12/31/22 13:46 Family History Mother CAD (coronary artery disease) stents Hypertension Vertigo Pacemaker Enlarged heart Father Cancer prostate Sister Sjogrens syndrome Grandmother Heart disease Grandfather Heart disease Uncle Heart disease Enlarged heart Surgical History Hx of bilateral cataract extraction Hx of dilation and curettage Hx of hysterectomy Hx of sinus surgery Hx of tonsillectomy Stented coronary artery (~12/27/22) Social History Smoking Status: Never smoker alcohol intake: current alcohol intake frequency: holidays/special occasions only substance use type: does not use caffeine: Yes Type: coffee Number of servings: 1 ROS ROS ED ROS Narrative Constitutional: No fever, no chills. HEENT: No sore throat. No neck pain. No loss of vision. No rhinorrhea. Cardiovascular: Positive chest pain. No palpitations. No pedal edema. Respiratory: No cough, no shortness of breath. Abdominal: No abdominal pain. No nausea. No vomiting. Genitourinary: No dysuria. No hematuria. Musculoskeletal: No myalgias. No arthralgias. Neurologic: No headaches. No dizziness. No lightheadedness. Skin: No rash. No change in color. Psychiatric: No depression. No anxiety. EXAM Physical Exam Narrative Exam Narrative: Afebrile. Vital signs noted. HEENT: Normocephalic. Atraumatic. PERRL, EOMI. Neck soft and supple. No point tenderness or step off. Cardiovascular: Regular rate and rhythm. No murmurs, rubs, or gallops appreciated. Respiratory: No tachypnea. Lungs clear to auscultation bilaterally. Gastrointestinal: Abdomen soft, nontender, with normoactive bowel sounds. No rebound or guarding. Neurological: Awake. Alert. Nonfocal, nonlateralizing. Skin: No rash. Normal color. No pallor. Positive ecchymosis right wrist at site of cardiac catheterization. Musculoskeletal: No pedal edema. Full range of motion extremities. Const Vital Signs: 12/31/22 13:46 12/31/22 14:28 12/31/22 14:29 Temperature 96.5 F L Temperature Source Temporal Pulse Rate 99 85 Respiratory Rate 18 24 H Respiratory Effort Normal Non-Labored Blood Pressure 136/71 H 137/74 H Blood Pressure Mean 92 95 Pulse Ox 100 98 Oxygen Delivery Method Room Air Room Air 12/31/22 14:38 12/31/22 15:31 12/31/22 16:22 Temperature Temperature Source Pulse Rate 82 82 Respiratory Rate 31 H 23 H Respiratory Effort Blood Pressure 135/71 H 130/83 H Blood Pressure Mean 92 98 Pulse Ox 97 97 97 Oxygen Delivery Method Room Air Room Air Room Air 12/31/22 17:07 Temperature Temperature Source Pulse Rate 76 Respiratory Rate 27 H Respiratory Effort Blood Pressure 139/76 H Blood Pressure Mean 97 Pulse Ox 96 Oxygen Delivery Method Room Air Heart Score History: Slightly/Non-Suspicious ECG: Normal Age: >45 - <65 years Risk Factors: >/= 3 Risk Factors or History of CAD Score: 3 MDM MDM MDM Narrative Medical decision making narrative: In the differential diagnosis is reocclusion of stent/ischemic disease from pulmonary embolism as she is not tachycardic, and her pulse ox is 98 to 100% on room air. She does not have any leg swelling. I have low concern for aortic dissection as she states that she may have had twinges of pain in her back, no tearing sensation, she has appropriate blood pressure here in the emergency department as well. Chest pain work-up was pursued. EKG was obtained and interpreted by myself independently as normal sinus rhythm at 80 bpm without ectopy or acute ST changes. No STEMI. I reviewed her laboratory work from today and she has normal white count of 5.5, hemoglobin normal at 12.1, hematocrit 37.0, she does have thrombocytopenia of 121. This appears to be a chronic thrombocytopenia and her last value was low at 105. CMP is grossly unremarkable except for glucose elevated at 191 consistent with her diabetes, but she has a normal anion gap of 8. I have low concern for diabetic ketoacidosis. Sodium is also low at 131 but this appears to be a chronic hyponatremia as well. Urinalysis is positive for infection with positive nitrites and 50-100 WBCs. She has allergies to sulfa antibiotics and Levaquin so she will be started on cephalexin with urine culture pending. Her troponin is negative at 33. Repeat will be obtained and reviewed. I do feel that as she is status post stenting, that patient will be discussed with cardiology, Dr. Manzano. Chest x-ray in 1 view was obtained and interpreted by myself independently as no evidence of pneumonia or pneumothorax. I reviewed the radiology report which confirms my independent interpretation. I reviewed her prior records and her catheterization report and she did have a mid LAD and first diagonal lesion(s) that were stented. Her second troponin has returned and is only slightly elevated at 35, but still normal. I discussed patient with Dr. Manzano who had stented her last week. He agrees with outpatient follow-up and that she can be discharged. She was written a prescription for cephalexin for her cystitis. I feel she be discharged safely home and does not require observation. Return instructions to the emergency department were reviewed. Disposition is discharged home in stable condition. History & Record Review Discussion w/independent historian: Patient Additional record(s) reviewed:: Prior ED visit and Prior labs Lab Data Attestation: I reviewed the patient's lab results. Labs: Laboratory Results - last 24 hr 12/31/22 12/31/22 12/31/22 14:45 14:47 16:45 WBC 5.5 RBC 3.92 L Hgb 12.1 Hct 37.0 MCV 94.4 MCH 30.9 MCHC 32.7 RDW Std Deviation 48.8 H RDW Coeff of Ted 14.2 Plt Count 121 L MPV 12.2 H Immature Gran % (Auto) 0.400 Neut % (Auto) 62.9 Lymph % (Auto) 25.4 [place]ock % (Auto) 10.0 Eos % (Auto) 1.1 Baso % (Auto) 0.2 Absolute Neuts (auto) 3.5 Absolute Lymphs (auto) 1.40 Nucleated RBC % 0 Sodium 131 L Potassium 4.0 Chloride 100 Carbon Dioxide 23.0 Anion Gap 8 BUN 13 Creatinine 0.79 Estim Creat Clear Calc 64.99 Est GFR (MDRD) Af Amer 96 Est GFR (MDRD) Non-Af 79 BUN/Creatinine Ratio 16.4 Glucose 191 H Calcium 8.7 Troponin I High Sens 33 35 Urine Color Yellow Urine Clarity Sl. Cloudy Urine pH 8.0 Ur Specific [place] 1.010 Urine Protein 15 H Urine Glucose (UA) 250 H Urine Ketones Negative Urine Occult Blood 10 H Urine Nitrite Positive H Urine Bilirubin Negative Urine Urobilinogen 1 H Ur Leukocyte Esterase 500 H Urine RBC 0 SEEN Urine WBC 50-100 SEEN Ur Squamous Epith Cells 0-5 SEEN Urine Bacteria 2+ Urine Mucus 0 SEEN Radiography Diagnostic Testing: Clinical Impression(s) from Imaging Studies Chest X-Ray 12/31/22 14:55 IMPRESSION: No acute findings in the chest and unchanged when compared to 11/16/2022.. Electronically Signed: Placido Gonzalez MD at 16:02 EDT , Management Discussion w/another healthcare provider: Telephone Interviewer (Dr. Manzano, cardiology) Discharge Plan Triage Chief Complaint: Chest Pain ED Provider: Placido Albrecht Dx/Rx/DC Orders Clinical Impression: UTI (urinary tract infection), Status post coronary artery stent placement, Chest pain Instructions: ED Chest Pain, Uncertain Cause, ED Cystitis Female Adult Prescriptions: New cephalexin 500 mg capsule 500 mg PO Q12 Qty: 14 0RF No Action amlodipine 2.5 mg tablet 2.5 mg PO DAILY epinephrine 0.3 mg/0.3 mL auto-injector 0.3 mg IM ONCE Rx Instructions: as a single dose; may repeat once budesonide [Pulmicort] 1 mg/2 mL suspension for nebulization 0.5 mg inhalation BID triamcinolone acetonide 0.1 % cream 1 applic topical DAILY naproxen 500 mg tablet 500 mg PO BID PRN (Reason: pain) aspirin 81 mg tablet,delayed release (DR/EC) 81 mg PO DAILY fluticasone propionate 1 SPRAY spray,suspension 2 spray NASAL DAILY citalopram 20 MG tablet 20 mg PO DAILY montelukast 10 MG tablet 10 mg PO DAILY hydrochlorothiazide 25 MG tablet 25 mg PO DAILY losartan 100 MG tablet 100 mg PO DAILY levalbuterol tartrate 15 GM HFA aerosol inhaler 15 g IH Q4H PRN PRN (Reason: Shortness Of Breath) lansoprazole 30 mg capsule,delayed release(DR/EC) 30 mg PO DAILY metformin 500 mg tablet extended release 24 hr 1,000 mg PO BID Brilinta 90 mg Tablet 90 mg PO BID Qty: 60 6RF nitroglycerin 0.4 mg Tablet, Sublingual 0.4 mg sublingual Q5M PRN (Reason: Cardiac/Chest Pain) Qty: 15 6RF carvedilol 12.5 mg tablet 12.5 mg PO BID Qty: 180 1RF Rx Instructions: must administer with a meal/food Primary Care Provider: pOal Bernal Referrals: Alicia Manzano MD [Med Staff - Active Staff] - Keep Matthias appointment Opal Bernal MD [Primary Care Provider] - Disposition Disposition: Home, Self Care
--- NOTE | 2022-12-31 14:45 | EKG12_ITS ---
Test Reason : CHEST PRESSURE Blood Pressure : / mmHG Vent. Rate : 080 BPM Atrial Rate : 080 BPM P-R Int : 186 ms QRS Dur : 074 ms QT Int : 382 ms P-R-T Axes : 051 008 052 degrees QTc Int : 440 ms Normal sinus rhythm Minimal voltage criteria for LVH, may be normal variant ( R in aVL ) Borderline ECG No previous ECGs available Confirmed by ANDERSON KOENIG, VIKI ([id number]), commissioning editor NORMA TORRES ([id number]) on 02/09/2023 12:38:14 PM Referred By: AFSHIN Confirmed By:DANIELLE BARRON MD
[2022-12-31 14:54] LABS: Mucous, Urine 0 SEEN /hpf (<or=2+); Red Blood Cells-Urine 0 SEEN /hpf (0-5)
--- NOTE | 2022-12-31 14:55 | RAD_ITS ---
EXAM: XR CHEST, 1 VIEW CLINICAL INDICATION: Chest pain. TECHNIQUE: Frontal view of the chest. COMPARISON: 11/16/2022. FINDINGS: LUNGS AND PLEURAL SPACES: Unremarkable. No pneumothorax. No effusion. No suspicious infiltrates. HEART: Unremarkable. Cardiac silhouette not enlarged. MEDIASTINUM: Central airways and mediastinal contour are unremarkable. BONES/JOINTS: Old right posterior sixth rib fracture. Old right lateral ninth rib fracture. SOFT TISSUES: Unremarkable. RAD/Chest 1 View (Portable) IMPRESSION: No acute findings in the chest and unchanged when compared to 11/16/2022.. Electronically Signed: Placido Gonzalez MD at 16:02 EDT ,
[2022-12-31] MEDS: Aspirin 81 MG TAB.CHEW 324 MG PO (14:57)
[2022-12-31 15:02] LABS: Absolute Neutrophil Count 3.5 X10^3/uL (2.0-7.7); Basophil# 0.01 X10^3/uL; Basophil% 0.2 % (0-1); Eosinophil# 0.06 X10^3/uL; Eosinophils% 1.1 % (0-5); Hemoglobin 12.1 g/dL (12.0-15.0); Lymphocyte % 25.4 % (19-41); Mean Corp Hgb Conc 32.7 g/dL (32-36); Mean Corpuscular Hgb 30.9 pg (27.0-32.0); Mean Corpuscular Volume 94.4 fL (81-99); Mean Platelet Vol. 12.2 fl (6.2-12.0); Monocyte# 0.55 X10^3/uL; NRBC Flagged by Analyzer 0 % (0-5); Neutrophil # 3.48 X10^3/uL (2.7-7.7); Neutrophil % 62.9 % (47-70); Platelet Count 121 K/mm3 (150-450); RBC Distribution Width CV 14.2 % (11.6-14.6); RBC Distribution Width SD 48.8 fl (35.1-43.9); Red Blood Count 3.92 M/mm3 (4.2-5.4); White Blood Count 5.5 K/mm3 (4.4-11.0)
[2022-12-31 15:02] LABS: Color, Urine Yellow (Yellow); Glucose, Dipstick 250 mg/dl (Normal); Ketone-Dipstick Negative (Negative); Leukocyte Esterase-Dipstick 500 /ul (Negative); Nitrite-Dipstick Positive (Negative); Occult Blood-Urine 10 /ul (Negative); Protein-Dipstick 15 mg/dl (Negative); Urine Bilirubin Dipstick Negative (Negative); Urine Clarity Sl. Cloudy (Clear); Urine Urobilinogen 1 mg/dl (Normal)
[2022-12-31 15:11] LABS: Bacteria 2+ /hpf (None Seen); Squamous Epithelial Cells - UA 0-5 SEEN /hpf (5-10); White Blood Cells 50-100 SEEN /hpf (0-5)
[2022-12-31 15:26] LABS: Anion Gap 8 (5-15); BUN 13 mg/dL (7-18); BUN/Creat Ratio 16.4 RATIO (10-20); Calcium,Total 8.7 mg/dL (8.5-10.1); Chloride 100 mmol/L (98-107); Creatinine, Serum 0.79 mg/dL (0.55-1.02); EST Glomerular Filtration Rate 79 mL/min (>60); Est Glom Filt Rate - Afr Amer 96 mL/min (>60); Estimated Creatinine Clearance 64.99 ml/min; Glucose 191 mg/dL (74-106); Sodium Level 131 mmol/L (136-145); Troponin-I HS (w/2H Reflex) 33 pg/mL (3.0-54.0)
[2022-12-31 16:51] LABS: Reflex Troponin-HS? (from REC) Y
[2022-12-31 17:33] LABS: Troponin-I HS 35 pg/mL (3.0-54.0)
== END 2022-12-31 18:15 | disposition home or self-care (01) ==
PROVIDERS: Emergency Provider Emergency Medicine; PCP Internal Medicine; Visit Provider Emergency Medicine
DX: R07.9 Chest pain, unspecified (principal); E11.65 Type 2 diabetes mellitus with hyperglycemia; N39.0 Urinary tract infection, site not specified; Z95.5 Presence of coronary angioplasty implant and graft; I25.10 Atherosclerotic heart disease of native coronary artery without angina pectoris; I10 Essential (primary) hypertension; Z79.84 Long term (current) use of oral hypoglycemic drugs; Z79.82 Long term (current) use of aspirin; Z90.710 Acquired absence of both cervix and uterus
CPT/HCPCS: 71045; 80048; 81001; 84484; 85025; 87077; 87086; 87088; 87186; 93005; 99285; A4216

== ENCOUNTER → 2023-01-16 | Outpatient (CLI) | payer OTHER, SELFPAY ==
[2023-01-16 07:12] LABS: Absolute Lymphocyte Count 1.42 X10^3/uL (0.83-4.51); Absolute Neutrophil Count 2.4 X10^3/uL (2.0-7.7); Basophil# 0.02 X10^3/uL; Basophil% 0.4 % (0-1); Eosinophil# 0.17 X10^3/uL; Eosinophils% 3.8 % (0-5); Hematocrit 33.1 % (37-47); Lymphocyte # 1.42 X10^3/ul (0.83-4.51); Lymphocyte % 31.8 % (19-41); Mean Corp Hgb Conc 33.2 g/dL (32-36); Mean Corpuscular Hgb 31.3 pg (27.0-32.0); Mean Corpuscular Volume 94.3 fL (81-99); Mean Platelet Vol. 11.5 fl (6.2-12.0); Monocyte# 0.44 X10^3/uL; Monocyte% 9.9 % (0-10); NRBC Flagged by Analyzer 0 % (0-5); Neutrophil # 2.39 X10^3/uL (2.7-7.7); Neutrophil % 53.7 % (47-70); Platelet Count 141 K/mm3 (150-450); RBC Distribution Width CV 13.7 % (11.6-14.6); Red Blood Count 3.51 M/mm3 (4.2-5.4); White Blood Count 4.5 K/mm3 (4.4-11.0)
== END | disposition home or self-care (01) ==
LOC: LAB 06:55
PROVIDERS: PCP Internal Medicine; Referring Provider Physician Assistant Medical; Visit Provider Physician Assistant Medical
DX: R23.3 Spontaneous ecchymoses (principal)
CPT/HCPCS: 36415; 85025

== ENCOUNTER → 2023-01-19 | Outpatient (CLI) | payer OTHER, SELFPAY ==
--- NOTE | 2023-01-19 08:00 | CR.HP_ITS ---
CR - History & Physical General Arrival date:: 01/19/23 Arrival time:: 08:00 Date of Referral:: 12/28/22 Date of CR Evaluation:: 01/19/23 Referring Physician: Dr. Alicia Manzano Primary Diagnosis: PCI with coronary stent History of Present Cardiac Event Onset Date PTCA or coronary stenting:: Yes Vessel: LAD 12/27/22 Medications Ambulatory Orders Medication Instructions Recorded citalopram 20 mg tablet 20 mg PO DAILY 05/15/20 fluticasone propionate 50 2 spray NASAL DAILY 05/15/20 mcg/actuation nasal spray,suspension hydrochlorothiazide 25 mg tablet 25 mg PO DAILY 05/15/20 levalbuterol tartrate 45 15 g IH Q4H PRN PRN Shortness Of 05/15/20 mcg/actuation aerosol inhaler Breath losartan 100 mg tablet 100 mg PO DAILY 05/15/20 montelukast 10 mg tablet 10 mg PO DAILY 05/15/20 amlodipine 2.5 mg tablet 2.5 mg PO DAILY 08/04/22 budesonide 1 mg/2 mL suspension 0.5 mg inhalation BID 08/04/22 for nebulization (Pulmicort) epinephrine 0.3 mg/0.3 mL 0.3 mg IM ONCE 08/04/22 injection, auto-injector triamcinolone acetonide 0.1 % 1 applic topical DAILY 08/04/22 topical cream lansoprazole 30 mg capsule,delayed 30 mg PO DAILY 08/08/22 release metformin 500 mg tablet,extended 1,000 mg PO BID 08/08/22 release 24 hr naproxen 500 mg tablet 500 mg PO BID PRN pain 08/08/22 aspirin 81 mg tablet,delayed 81 mg PO DAILY 11/16/22 release carvedilol 12.5 mg tablet 12.5 mg PO BID #180 tabs 11/28/22 nitroglycerin 0.4 mg sublingual 0.4 mg sublingual Q5M PRN 12/27/22 tablet Cardiac/Chest Pain #15 tabs ticagrelor 90 mg tablet (Brilinta) 90 mg PO BID #60 tabs 12/27/22 cephalexin 500 mg capsule 500 mg PO Q12 #14 CAPSULES 12/31/22 Allergies Allergies cantaloupe Allergy (Verified 12/31/22 13:45) Angioedema Sulfa (Sulfonamide Antibiotics) Allergy (Verified 12/31/22 13:45) Hives levofloxacin [From Levaquin] Adverse Reaction (Intermediate, Verified 12/31/22 13:46) Hives Sleep Disorder Evaluation Hx of Sleep Apnea: Yes Do you snore loudly (louder than talking or can be heard through closed doors)?: Yes (pt declines sleep syudy) Do you often feel tired/ fatigued/ sleepy during daytime?: No Has anyone observed you stop breathing during sleep?: Yes History of Hypertension (for STOP score): Yes STOP Results: Positive Advanced Directives Advanced Directives Power of Seat Joiner Chainstitch: No Living Will: No Advance Directives Information Provided: No Advance Directives on File: No DNR Order?:: No Past Medical History Covid-19 Screening Physicial Symptoms Other Clinical Concerns Exposure Risk Pertinent Comorbidities Has a serious heart condition:: Yes Past Medical Illness Medical History Abnormal exercise tolerance test Abnormal finding on EKG Cervicalgia Diabetes Essential hypertension Fibromyalgia Graves disease Srini's disease HSV-2 infection Interstitial lung disease Lupus Mixed connective tissue disease Raynaud disease Past Surgical History Surgical History Hx of bilateral cataract extraction Hx of dilation and curettage Hx of hysterectomy Hx of sinus surgery Hx of tonsillectomy Stented coronary artery (~12/27/22) Family History Summary Family History Mother CAD (coronary artery disease) stents Hypertension Vertigo Pacemaker Enlarged heart Father Cancer prostate Sister Sjogrens syndrome Grandmother Heart disease Grandfather Heart disease Uncle Heart disease Enlarged heart Social History Smoking History Smoking Status: Never smoker Alcohol Use Alcohol Usage: Yes (very rare) Occupation Occupation (List type of work in comments):: Employed Hours worked per day:: 8 Hobbies, Recreation, Social Activities Hobbies: Other (cook) Recreational Activities: I am able to engage in all my recreational activities Social Environment Status Marital Status: Current Living Arrangements Living Environment:: Family Safety Do you feel safe in your surroundings?: Yes Assistance Do you need any assistance at home?: no Review of Systems Review of Systems Hints Review of Present Symptoms: Reports Shortness of Breath with Exertion, Dizziness/Lightheadedness, Fatigue, Appetite - Normal, Appetite - Special Diet and Sleep - Normal; Denies Shortness of Breath at Rest, PVD, Operative Discomfort, Angina, Wound Healing, Heart Arrhythmia/Irregularities or Sexual Changes Pain Is Patient Pain Free?: No Pain Location: abdomen Pain Level: 5/10 Risk Factor Assessment Chief Complaint Chief Complaint: PCI with coronary stent Vital Signs Pulse Ox: 98 Blood Pressure: 132/80 Pulse Pulse Rate: 87 Hypertension How long have you been treated?: 20 years Blood Pressure Sitting - Left Arm: 132/80 Stress Stress: Home/Family (takes care of her mother) Diabetes Diabetic History: Type II Obesity Height: 5 ft 3 in Weight:: 190 lb Weight in Pounds: 190.0 lbs Body Mass Index (BMI): 33.6 Nutritional Referral for Obesity: Yes Physical Inactivity Physical Inactivity: None Risk Stratification Risk Guidelines: Lowest Risk: Risk Factor for Smoking, Moderate Risk: Risk Factor for Dyslipidemia, Risk Factor for Sedentary Lifestyle and Risk Factor for Depression and Highest Risk: Risk Factor for Diabetes, Risk Factor for Obesity and Risk Factor for Hypertension For Smoking Smoking Risk Guidelines For Dyslipidemia Dyslipidemia Risk Guidelines For Diabetes Mellitus Diabetes Risk Guidelines For Obesity/Overweight Obesity/Overweight Risk Guidelines For Hypertension Hypertension Risk Guidelines For Sedentary Lifestyle Sedentary Lifestyle Risk Guidelines For Depression Depression Risk Guidelines Family History Family History Mother CAD (coronary artery disease) stents Hypertension Vertigo Pacemaker Enlarged heart Father Cancer prostate Sister Sjogrens syndrome Grandmother Heart disease Grandfather Heart disease Uncle Heart disease Enlarged heart Motivation Motivation to Participate On a scale of 1 to 10, how prepared are you to commit to attending program?: 9 What do you see as barriers to successfully being able to complete the program?: no What do you see as the benefits of succesfully completing the program? In other words, what do you hope to get out of participating in the program?: energy Are there issues you are dealing with that will interfere with completing the p rogram?: no Do you have a spouse or signficant other, family or friends who will help support you to complete the program?: yes
--- NOTE | 2023-01-19 08:09 | CR.ITP_ITS ---
Diagnosis General Information Admitting Diagnosis: PCi with stent Personal Learning Style:: Audio/Visual Stage of change r/t lifestyle modifications:: Contemplation Gave educational material for:: Treating Heart Disease, How The Heart Works, What it means to have Heart Disease, How Coronary Artery Disease is Diagnosed, Heart Procedures, What Heart Medications Do, Risk Factors & Modifications, Living an Active Life, Nutrition, Emotions & Heart Disease, Stress Management & Relaxation and Sleep Disorders & Heart Disease Education/Goals Cardiac Rehabilitation Goals Personal Goals: Initial Assessment: Improve energy level, Participate in home exercise program, Get back to work, or to resume activities faster, Improve knowledge of cardiac disease, Improve muscle strength and endurance, Improve diet and eating habits (eat healthier) and Control risk factors (learn risk factor modification) Scale for measuring improvement of personal goals Diagnosis & Disease Process Outcomes/Goals: Pt IDs own risk factors & lifestyle modifications by Session 10, Verbalizes symptoms of angina & response by session 3., Pt independently manages and Other Additional Outcomes/Goals: Plan/Interventions: Assist Pt to ID & engage in lifestyle modification to reduce CVD risk, Instruct on individual risk factors, Review symptoms of angina & emergency actions, Review secondary diagnosis & identify educational needs. and Other see comment 30 day Reassessments:: Not Met 30 day Reassessments:: Not Met 30 day Reassessments:: Not Met 30 day Reassessments:: Not Met Final Reassessments:: Not Met Safety Referral to Physical Therapy: No Referral to [facility] Case Management: No Fall Risk Assessed:: Yes Assistive Devices:: None Exercise - Initial Assessment Visit Date of Eval: 01/19/23 (initial eval ) Mets: Pre-: >3 METS for 30 minutes by discharge, >5 METS for 30 minutes by discharge, >7 METS for 30 minutes by discharge and Unable to meet goal due to: (see comment below) Physician Prescribed Exercise Modalities: Treadmill, Rower, Airdyne, NuStep, SciFit and Lateral Dry Goods Clerk Frequency: 2x/week for 18 weeks [36 sessions] and 3x/week for 12 weeks [36 sessions] Intensity: 60-80% of age predicted maximum heart rate reserve Duration: 30 - 45 minutes Current METSs:: 3 Target Heart Rate:: 98-122 Resting Blood Pressure: 132/80 EKG Type: SR Outcomes & Goals Goals:: Verbalizes understanding of THR, RPE & goal METS by session 6, Documents in home exercise log/reports 30 min aerobic 5 day/wk by DC, Demonstrates accurate pulse taking by DC and Other additional outcome/goals: see below Intervention & Plan Exercise Program Goals: Instruct on personal THR & RPE, Instruct on MET level & personal MET goal, Show patient to take own pulse /validate performance until accurate, Instruct on home exercise and Other additional plan/int Physical Activity Home Exercise Physical Activity - Home Exercise: Safe Exercise, Warm-up, Self-monitoring, Cool-Down, Home Exercise > 30 min Daily and Sitting Time <3 hours/daily Outcomes & Goals Outcomes/Goals: Demonstrates correct Warm-up/exercise Cool-Down (S3) if = 2.5 METs, Verbalizes symptoms of exercise intolerance by Session 3 (S3), Demonstrate safe equipment use (S3) & follows exercise prescrition (6) and Other: See below Intervention & Plan Plan/Intervention: Instruct warm-up & cool-down if exercising at > 2 METs, Instruct on symptoms of exercise intolerance & actions to take, Instruct & monitor on saf, Assess intial functional capacity & safety risk and Other See below Nutrition - Initial Assessment Program Goals Nutrition Program Goals Patient has diagnosis of Hyperlipidemia (ICD E78)?: No Visit Date of Eval: 01/19/23 (initial eval ) Cholesterol/Lipids (Other Core Measures) Determine presence & major risk factors that modify LDL goal: Cigarette smoking, Hypertension or hypertensive medication, Low HDL cholesterol <40 mg/dL*, Family history of premature CHD in Male < 55 years: female <65 yearsFa and Age men > 45 years; women >/= 55 years Outcomes/Goals: Pt IDs own risk factors & lifestyle modifications by Session 10, Verbalizes symptoms of angina & response by session 3., Pt independently manages and Other Additional Outcomes/Goals: Intervention/Plan: Advocate for lipid panel cholesterol medication if applicable, Instruct on personal lipid levels & lipid goals/NCEP guidelines, Instruct on cholesterol and Other additional plan/int Diabetes (Other Core Measures) Diabetes Type: Diagnosis Type II ICD-10 E11 Insulin dependent injection/pump?: No Non-Insulin Dependent?: Yes Do you monitor your blood sugar at home?: Yes Referral to Diabetic Clinic:: Yes Outcomes/Goals:: Able to state symptoms of, Able to state, Able to state and Other additional Intervention/Plan:: Instruct on, Refer to, Instruct on and Other Weight Mgt (Other Care) Height: 5 ft 3 in Weight:: 190 lb BMI: 33.6 Diagnosis Overweight/Obesity BMI> 30% ICD-10 E66: Yes Diagnosis High BMI/Morbid Obesity BMI> 35% ICD-10 Z68: No Outcomes/Goals: Pt sets, maintains & shows weight loss goal & trend during rehab and Other additional outcomes/goals Intervention/Plan: Instruct on ideal BMI & set weight loss goal w/patient, Assist pt to ID & incorporate diet changes for weight loss by S9, Refer to Structured Weight Loss program as appropriate, Encourage goal of using 250- 300dcal per session for weight loss and Other additional plan/interventions Healthy Eating Habits Will attend diet classes:: Yes Outcomes/Goals:: Consume diet rich in vegs,fruits,whole grain/high fiber,fish,lean meat, Limit sat/trans fats,cholesterol & added salts & sugars and Other additional outcome/goals: Intervention/Plan:: Assess current eating habits and Other Additional plan/interventions Education Gave educational materials for:: Signs & symptoms of hypoglycemia, Signs & symptoms of hyperglycemia, Relate diabetes to coronary artery disease and Healthy eating Core - Initial Assessment Visit Date of Eval: 01/19/23 (initial eval ) Medication Compliance Preventative Medication(s):: Aspirin, NURYS inhibitor, Beta lorenzo and ARB (Angiotensi Rcap) H/O mental health issues: depression, anxiety, or addiction?: No Doesn?t believe in the benefits of treatment?: No Believes medications are unnecessary or harmful?: No Has a concern about medication side effects?: No Expresses concern over the cost of medications?: No Outcomes/Goals: Verbalizes medications,desired effect & common side effects @ DC, Pt self-reports following medication regimen, Keeps card in wallet w/medications listed by DC and Other additional outcome/goals: Interventions/plans: Instruct on medication effects & side effects, Review medication list w/patient every two weeks, Instruct importance of taking meds as ordered & assist problem solving and Other additional Tobacco Use Tobacco Use: Non-smoker Hypertension Hypertension Diagnosis:: Hypertension ICD-10 I10 Resting Blood Pressure:: 132/80 Citizen [place] [employer] Hypertension Guidelines Outcomes/Goals: Able to verbalize/achieve optimal blood pressure <130/80, Incorporates diet changes & exercise for blood pressure control by DC and Other additional outcomes/goals Interventions/plan: Instruct on optimal blood pressure, hypertension & medications, Instruct on effects of sodium, alcohol, stress, exercise &hypertension and Other additional plan/interventions Tobacco Cessation Referral Smoking Cessation Referral:: No Individual Education/Counseling:: No Education Schedule Given:: Yes Psychosocial - Initial Assess VIsit Date of Eval: 01/19/23 (initial eval ) History of previous Mental disease:: No Target Goals Target Goals Outcomes/Goals: See list Psychosocial Outcomes/Goals:: ID's personal stressors & 2 strategies to manage stress by discharge and Other Additional outcome/goals: Intervention/Plan: See List Interventions/Plan:: Assess stressors,coping strategies & signs of derpression on admission, Instruct/assist pt to develop coping & personal stress Mgt strategies, Refer to Behavioral Health if appropriate, Refer to Physician if appropriate, Instruct patient to recognize signs & symptoms of depression, Instruct patient to recog and Other additional plan/intervention Patient Health Questionnaire PHQ-9 Screening Initial Assessment: 1. Little interest or pleasure in doing things: Not at all 2. Feeling down, depressed, or hopeless: Not at all 3. Trouble falling or staying asleep, or sleeping too much: Not at all 4. Feeling tired or having little energy: Nearly every day 5. Poor appetite or overeating: More than half the days 6. Feeling bad about yourself -- or that you are a failure or have let yourself or your family down: Not at all 7. Trouble concentrating on things, such as reading the newspaper or watching television: Not at all 8. Moving or speaking so slowly that other people could have noticed. Or the opposite - being so fidgety or restless that you have been moving around a lot more than usual: Not at all 9. Thoughts that you would be better off , or of hurting yourself in some way: Not at all How difficult have these problems made it for you to do your work, take care of things at home, or get along with other people?: Somewhat difficult Total Score: 5 CR-Q SV Test Statements CAD is a disease of the arteries in the heart: I Don't Know Examples of risk factors for heart disease: True Angina is chest pain or discomfort: I Don't Know The benefits of resistance training include: True Eating more meat and dairy products: False Anti-platelet medications such as aspirin are important: True The only effective way to manage stress: False An exercise warm-up slowly increases heart rate: I Don't Know Prepared, processed foods usually have high sodium: True Depression is common after a heart attack: I Don't Know The statin medications lower cholesterol: True To control blood pressure, lower the amount of sodium: True If someone gets chest discomfort during walking: False Transfats are partially hydrogenated vegetable oils: I Don't Know Sleep apnea that is not treated increases the risk: True To control cholesterol, one should become a vegetarian: False Someone knows if he/she is exercising at the right level: I Don't Know Diabetes cannot be prevented with exercise & health eating: True Stress is a large risk for heart attack: I Don't Know A diet that can help lower blood pressure is rich in: True Total Score Total Correct Responses: 11 Self-Efficacy 6-Item Scale Initial Assessment: We would like to know how confident you are in doing certain activities. Please select your confidence level for: Fatigue Select Number: 4 Physical Discomfort or Pain Select Number: 5 Emotional Distress Select Number: 8 Other Symptoms or Health Problems Select Number: 8 Different Tasks and Activities Select Number: 7 Medication Select Number: 8 Total Score:: 6 Nutrition Survey Nutrition Survey Instructions Scoring Instructions Nutrition Survey Initial: Have you lost >10 lbs over the past 2 months without trying?: No Are you following a special diet at home for diabetes, low fat, or low salt?: No Are you interested in meeting with a dietitian for help understanding your diet?: Yes Do you eat less than 3 meals a day?: No Do you eat fatty meats (medel, sausage, ribs, etc), fried foods, desserts, large amounts of salad dressings, margarine, butter, or cheese most days?: No Do you have food allergies? [Enter types in comment field]: Yes Do you eat in restaurants more than 3 times a week?: No Do you season food with salt, seasoning salt, or garlic salt?: Yes Do you used canned, boxed, frozen meals, or soups, seasoning packets?: No Total Score:: 3 Exercise - Final/Discharge Physician Prescribed Exercise Modalities: Treadmill, Rower, Airdyne, NuStep, SciFit and Lateral Dry Goods Clerk Frequency: 2x/week for 18 weeks [36 sessions] and 3x/week for 12 weeks [36 sessions] Intensity: 60-80% of age predicted maximum heart rate reserve Current METSs:: 3 Target Heart Rate:: 98-122 Nutrition - 30-Day Assessment Weight Mgt (Other Care) Height: 5 ft 3 in Weight:: 190 lb BMI: 33.6 Nutrition - 60-Day Assessment Weight Mgt (Other Care) Height: 5 ft 3 in Weight:: 190 lb BMI: 33.6 Core - Final Assessment Hypertension Resting Blood Pressure:: 132/80 Citizen [place] [employer] Hypertension Guidelines Core - 60-Day Assessment Hypertension Resting Blood Pressure:: 132/80 Citizen [place] [employer] Hypertension Guidelines Psychosocial - 30-Day Assess Target Goals Target Goals Psychosocial - 60-Day Assess Target Goals Target Goals Psychosocial - 90-Day Assess Target Goals Target Goals Psychosocial - Final Assessmen Target Goals Target Goals Nutrition - 90-Day Assessment Weight Mgt (Other Care) Height: 5 ft 3 in Weight:: 190 lb BMI: 33.6 Nutrition - Final Assessment Program Goals Patient has diagnosis of Hyperlipidemia (ICD E78)?: No Weight Mgt (Other Care) Height: 5 ft 3 in Weight:: 190 lb BMI: 33.6
[2023-01-19 08:39] VITALS: BP 132/80; PULSE 87; O2SAT 98; BMI 33.6
[2023-01-19 08:42] VITALS: BP 132/80
[2023-01-19 09:12] VITALS: BMI 33.6
== END | disposition home or self-care (01) ==
LOC: CR 07:50
PROVIDERS: PCP Internal Medicine; Referring Provider Internal Medicine Cardiovascular Disease; Visit Provider Internal Medicine Cardiovascular Disease
DX: Z95.5 Presence of coronary angioplasty implant and graft (principal); E11.9 Type 2 diabetes mellitus without complications; G47.30 Sleep apnea, unspecified; R06.83 Snoring; I10 Essential (primary) hypertension; M79.7 Fibromyalgia; Z98.41 Cataract extraction status, right eye; Z98.42 Cataract extraction status, left eye; Z90.710 Acquired absence of both cervix and uterus; R06.02 Shortness of breath; R53.83 Other fatigue; R42 Dizziness and giddiness

== ENCOUNTER → 2023-01-24 | Outpatient (CLI) | payer OTHER, SELFPAY ==
[2023-01-19 08:39] VITALS: BMI 33.6
[2023-01-24 11:28] LABS: Hematocrit 31.7 % (37-47); Hemoglobin 10.8 g/dL (12.0-15.0); Mean Corp Hgb Conc 34.1 g/dL (32-36); Mean Corpuscular Hgb 32.4 pg (27.0-32.0); Mean Corpuscular Volume 95.2 fL (81-99); Mean Platelet Vol. 11.4 fl (6.2-12.0); Platelet Count 146 K/mm3 (150-450); RBC Distribution Width CV 14.3 % (11.6-14.6); RBC Distribution Width SD 49.5 fl (35.1-43.9); Red Blood Count 3.33 M/mm3 (4.2-5.4); White Blood Count 3.9 K/mm3 (4.4-11.0)
[2023-01-24 11:39] LABS: Prothrombin Time (Protime)PT. 13.6 SECONDS (11.7-14.9)
[2023-01-24 11:40] LABS: Partial Thromboplast Time 29.1 Seconds (24.1-36.2)
[2023-01-24 12:08] LABS: ALB/GLOB Ratio 0.8 RATIO (0.9-2.4); AST(SGOT) 168 U/L (15-37); Alanine Aminotransfer ALT/SGPT 179 U/L (13-56); Albumin, Serum 3.4 g/dL (3.2-5.0); Alkaline Phosphatase 112 U/L (45-117); Anion Gap 6 (5-15); BUN 12 mg/dL (7-18); BUN/Creat Ratio 16.8 RATIO (10-20); Calcium,Total 8.8 mg/dL (8.5-10.1); Chloride 103 mmol/L (98-107); Cholesterol 167 mg/dL (200); Creatinine, Serum 0.72 mg/dL (0.55-1.02); EST Glomerular Filtration Rate 89 mL/min (>60); Est Glom Filt Rate - Afr Amer 108 mL/min (>60); Globulin 4.2 g/dL (2.2-4.2); Glucose 219 mg/dL (74-106); High Density Lipoprotein 38 mg/dL; Potassium 4.1 mmol/L (3.5-5.1); Protein, Total 7.6 g/dL (6.4-8.2); Sodium Level 134 mmol/L (136-145); Triglycerides 126 mg/dL; Very Low Density Lipoprotein 25 mg/dL (5-40)
--- NOTE | 2023-01-24 13:06 | NEURO ---
NCS and/or EMG Patient Report Ordering Doctor: TARAN VENEGAS DATE OF SERVICE: 01/24/23 Vikki presents for electrodiagnostic testing of the upper limbs. She reports numbness and tingling in both hands with weakness. Electrodiagnostic findings: Left median motor nerve demonstrates normal distal latency and amplitude with reduced conduction velocity. Right median motor nerve demonstrates prolonged latency with normal amplitude and reduced conduction velocity. Ulnar motor response is within normal limits bilaterally. Prolonged left and right median sensory latency at the wrist. Normal ulnar and radial sensory responses. Normal median and ulnar F-Waves. Needle EMG testing was performed the upper limbs. All muscles tested showed no evidence of denervation with normal motor unit action potentials. Electrodiagnostic impression: This is an abnormal study in the upper limbs. 1. Electrodiagnostic findings demonstrate bilateral median mononeuropathy. This is consistent with a mild bilateral carpal tunnel syndrome.
== END | disposition home or self-care (01) ==
PROVIDERS: Internal Medicine Cardiovascular Disease; PCP Internal Medicine; Referring Provider Internal Medicine Rheumatology; Visit Provider Internal Medicine Rheumatology
DX: G56.03 Carpal tunnel syndrome, bilateral upper limbs (principal); I25.10 Atherosclerotic heart disease of native coronary artery without angina pectoris; R94.30 Abnormal result of cardiovascular function study, unspecified; R07.9 Chest pain, unspecified; R00.2 Palpitations; R06.00 Dyspnea, unspecified
CPT/HCPCS: 36415; 80053; 80061; 85027; 85610; 85730; 95886; 95913

== ENCOUNTER 2023-01-29 08:00 | Outpatient (RCR) | payer OTHER, SELFPAY ==
[2023-01-19 08:39] VITALS: BMI 33.6
== END 2023-02-03 23:59 ==
LOC: CR 08:00
PROVIDERS: PCP Internal Medicine; Referring Provider Internal Medicine Cardiovascular Disease; Visit Provider Internal Medicine Cardiovascular Disease
DX: Z95.5 Presence of coronary angioplasty implant and graft; I25.10 Atherosclerotic heart disease of native coronary artery without angina pectoris
CPT/HCPCS: 93798

== ENCOUNTER → 2023-02-07 | Outpatient (CLI) | payer OTHER, SELFPAY ==
[2023-01-19 08:39] VITALS: BMI 33.6
--- NOTE | 2023-02-07 15:04 | ECHOD_ITS ---
Reason For Study: PALPITATIONS Procedure This was a 2D Doppler, Color Flow transthoracic echocardiogram. Exam performed in department. Left Ventricle Normal size and thickness. The left ventricular ejection fraction is 65 %. Normal diastololic function. Right Ventricle Normal right ventricle. Atria The left and right atria are normal. Mitral Valve Trivial mitral valve insufficiency. Tricuspid Valve Mild tricuspid valve insufficiency. Normal pulmonary artery pressure. Aortic Valve Trisinus/trileaflet aortic valve. Pulmonic Valve The pulmonic valve is not well visualized. Great Vessels Normal sized aortic root. Pericardium/Pleural No pericardial effusion. MMode/2D Measurements & Calculations LVIDd: 4.3 cm IVSd: 1.00 cm LVOT diam: 1.9 cm LVIDs: 2.1 cm LVPWd: 1.0 cm LVOT area: 2.9 cm2 RVDd: 2.6 cm FS: 50.1 % Ao root diam: 3.1 cm LAV(MOD-bp): 56.2 ml LVAd ap4: 23.4 cm2 LAV(MOD-bp) Indexed: 29.8 ml/m2 LVLd ap4: 7.5 cm LAV(MOD-sp2): 68.1 ml EDV(MOD-sp4): 60.2 ml LAV(MOD-sp4): 46.1 ml EDV(sp4-el): 61.8 ml LVAs ap4: 12.8 cm2 LVLs ap4: 6.6 cm ESV(MOD-sp4): 23.1 ml ESV(sp4-el): 21.0 ml EF(MOD-sp4): 61.6 % EF(sp4-el): 66.1 % LVAd ap2: 24.1 cm2 SV(MOD-sp4): 37.1 ml SV(MOD-sp2): 42.6 ml LVLd ap2: 7.6 cm EDV(MOD-sp2): 65.3 ml EDV(sp2-el): 64.8 ml LVAs ap2: 12.3 cm2 LVLs ap2: 6.2 cm ESV(MOD-sp2): 22.7 ml ESV(sp2-el): 20.8 ml EF(MOD-sp2): 65.2 % SV(sp4-el): 40.9 ml LA dimension(2D): 4.0 cm LA A4 area: 18.0 cm2 RA A4 area: 12.0 cm2 TAPSE: 2.4 cm Time Measurements MV dec time: 0.24 sec Doppler Measurements & Calculations MV E max forrest: 97.8 cm/sec Lat Peak E' Forrest: 13.0 cm/sec Med Peak E' Forrest: 9.5 cm/sec MV A max forrset: 60.5 cm/sec E/E' lat: 7.5 E/E' med: 10.2 MV E/A: 1.6 Ao V2 max: 142.1 cm/sec LV V1 max: 103.6 cm/sec MV dec slope: 406.7 cm/sec2 Ao max P.1 mmHg LV V1 max P.3 mmHg Ao V2 mean: 96.2 cm/sec LV V1 mean P.3 mmHg Ao mean P.1 mmHg LV V1 mean: 73.5 cm/sec Ao V2 VTI: 29.9 cm LV V1 VTI: 23.1 cm AV (velocity ratio): 0.77 NELY(I,D): 2.2 cm2 NELY(V,D): 2.1 cm2 SV(LVOT): 67.1 ml PA V2 max: 106.5 cm/sec TR max forrest: 234.5 cm/sec PA max PG (full): 2.1 mmHg TR max P.0 mmHg ECHO/Echo Complete Interpretation Summary The left ventricular ejection fraction is 65 %. Ordering Physician: Alicia Manzano Performed By: Ximena Brand RDCS
== END | disposition home or self-care (01) ==
LOC: CVS 15:02
PROVIDERS: PCP Internal Medicine; Visit Provider Internal Medicine Cardiovascular Disease
DX: R00.2 Palpitations (principal); R06.02 Shortness of breath; I25.10 Atherosclerotic heart disease of native coronary artery without angina pectoris; Z95.5 Presence of coronary angioplasty implant and graft; R94.31 Abnormal electrocardiogram [ECG] [EKG]
CPT/HCPCS: 93306

== ENCOUNTER → 2023-02-12 | Outpatient (CLI) | payer OTHER, SELFPAY ==
[2023-01-19 08:39] VITALS: BMI 33.6
== END | disposition home or self-care (01) ==
LOC: LABSPEC 17:17
PROVIDERS: PCP Internal Medicine; Referring Provider Otolaryngology; Visit Provider Otolaryngology
DX: J32.8 Other chronic sinusitis (principal)
CPT/HCPCS: 87070; 87077; 87186; 87205

== ENCOUNTER 2023-02-27 16:13 | Emergency (ER) | payer OTHER, SELFPAY ==
[2023-02-16 08:41] VITALS: BMI 33.5
[2023-02-27 16:13] VITALS: BP 123/75; PULSE 87; RESP 14; O2SAT 99
[2023-02-27 16:14] VITALS: BP 144/99; PULSE 129; RESP 18; TEMP 36.1; O2SAT 99; BMI 33.3
--- NOTE | 2023-02-27 16:37 | EDS_ITS ---
<Statement entered by Myriam Burt MD - 02/27/23 20:06> I have personally performed a face to face assessment of the patient and have reviewed the ZURDO Note. Patient presents with chest pressure that started while at work this afternoon. She had an AR in December and had 2 cardiac stents placed. She has been doing cardiac rehab and tolerating this well. She did have some palpitations and felt her heart was racing. Patient sitting upright in bed no acute distress. Nontoxic-appearing. Head and neck examination unremarkable. Heart is regular rate and rhythm. Lung sounds are clear. Abdomen is soft and nontender. Initial EKG obtained upon arrival reveals atrial fibrillation with no known history. At the time of my exam patient has converted to sinus rhythm. A r epeat EKG is obtained at this time. Lab work is unremarkable including 2 normal troponin values. Patient was discussed with cardiology and medication adjustments made. She will follow-up as an outpatient. Return instructions are given. HPI History of Present Illness Chief Complaint: Chest Pain Narrative Narrative: 57-year-old female with PMH of HTN, HLD, DM2, mixed connective tissue disorder, biliary colic presents with chest pain. She states she woke up this morning and her neck felt sore but she thought she slept wrong. Around 2:30 PM she was sitting at work and developed midsternal chest pressure with heart racing and nausea. She took 3 nitro with no change in her symptoms. She had 2 stents placed in December [address] Manzano. She is taking aspirin Plavix. She states she is also having gallbladder problems and was told she has polyps. She ate fried cauliflower about an hour prior to her symptoms starting today. She states she was seeing a GI specialist in [place] to evaluate this but they could not do an EGD because she is on blood thinners. She denies vomiting, diarrhea, blood in stool. No leg pain or swelling or history of DVT/PE. [facility] Medical History Abnormal bruising Abnormal exercise tolerance test Abnormal finding on EKG Cervicalgia Chest pain Coronary artery disease Diabetes Essential hypertension Fibromyalgia Graves disease Srini's disease HSV-2 infection Interstitial lung disease Lupus Mixed connective tissue disease Palpitations Raynaud disease SOB (shortness of breath) on exertion Home Medications citalopram 20 mg tablet 20 mg PO DAILY 05/15/20 [History Last Taken Unknown] fluticasone propionate 50 mcg/actuation nasal spray,suspension 2 spray NASAL DAILY 05/15/20 [History Last Taken Unknown] hydrochlorothiazide 25 mg tablet 25 mg PO DAILY 05/15/20 [History Last Taken Unknown] levalbuterol tartrate 45 mcg/actuation aerosol inhaler 15 g IH Q4H PRN PRN Shortness Of Breath 05/15/20 [History Last Taken Unknown] losartan 100 mg tablet 50 mg PO DAILY 05/15/20 [History Last Taken 12/27/22] montelukast 10 mg tablet 10 mg PO DAILY 05/15/20 [History Last Taken Unknown] epinephrine 0.3 mg/0.3 mL injection, auto-injector 0.3 mg IM ONCE 08/04/22 [History Last Taken Unknown] triamcinolone acetonide 0.1 % topical cream 1 applic topical DAILY 08/04/22 [ History Last Taken Unknown] lansoprazole 30 mg capsule,delayed release 30 mg PO DAILY 08/08/22 [History Last Taken Unknown] metformin 500 mg tablet,extended release 24 hr 1,000 mg PO BID 08/08/22 [History Last Taken 12/26/22] naproxen 500 mg tablet 500 mg PO BID PRN pain 08/08/22 [History Last Taken Unknown] aspirin 81 mg tablet,delayed release 81 mg PO DAILY 11/16/22 [History Last Taken 12/27/22] carvedilol 12.5 mg tablet 12.5 mg PO BID #180 tabs 11/28/22 [Rx Last Taken 12/27/22] nitroglycerin 0.4 mg sublingual tablet 0.4 mg sublingual Q5M PRN Cardiac/Chest Pain #15 tabs 12/27/22 [Rx Last Taken Unknown] amlodipine 5 mg tablet 5 mg PO DAILY #30 tabs 01/24/23 [Rx Last Taken Unknown] budesonide 1 mg/2 mL suspension for nebulization (Pulmicort) 0.5 mg inhalation BID PRN sob 01/24/23 [History Last Taken Unknown] clopidogrel 75 mg tablet (Plavix) 75 mg PO DAILY #34 tabs 01/24/23 [Rx Last Taken Unknown] pravastatin 20 mg tablet 20 mg PO QHS #30 tabs 02/21/23 [Rx Last Taken Unknown] apixaban 5 mg tablet (Eliquis) 5 mg PO BID 30 days #60 tabs 02/27/23 [Rx Last Taken Unknown] carvedilol 25 mg tablet 25 mg PO BID 30 days #60 tabs 02/27/23 [Rx Last Taken Unknown] Allergy/AdvReac Type Severity Reaction Status Date / Time cantaloupe Allergy Angioedema Verified 02/27/23 16:14 Sulfa (Sulfonamide Allergy Hives Verified 02/27/23 16:14 Antibiotics) levofloxacin [From Levaquin] AdvReac Intermediate Hives Verified 02/27/23 16:14 Family History Mother CAD (coronary artery disease) stents Hypertension Vertigo Pacemaker Enlarged heart Father Cancer prostate Sister Sjogrens syndrome Grandmother Heart disease Grandfather Heart disease Uncle Heart disease Enlarged heart Surgical History Hx of bilateral cataract extraction Hx of dilation and curettage Hx of hysterectomy Hx of sinus surgery Hx of tonsillectomy Stented coronary artery (~12/27/22) Social History Smoking Status: Never smoker alcohol intake: current alcohol intake frequency: holidays/special occasions only substance use type: does not use caffeine: Yes Type: coffee Number of servings: 1 ROS ROS ED ROS Narrative Constitutional: Negative for fever, chills, malaise. CVS: Positive for palpitations, chest pain. Negative for syncope. Respiratory: Negative for shortness of breath, cough. GI: Positive for nausea. Negative for abdominal pain, vomiting, diarrhea, melena, hematochezia. Neuro: Negative for headache. EXAM Physical Exam Narrative Exam Narrative: CONST: Patient sitting in no acute distress. EYES: Normal inspection. NECK: Normal inspection. RESP: No respiratory distress, CTAB. CVS: Regular rate and rhythm, no murmur, no gallop. ABD: Soft with slight RUQ tenderness, no guarding or rebound, nondistended, no hepatosplenomegaly. SKIN: Color normal, no rash, warm, dry, intact. EXTREMITIES: Normal appearance, no pedal edema. 2+ radial and DP pulses. NEURO: Oriented x4. PSYCH: Normal affect. Const Vital Signs: 02/27/23 16:14 02/27/23 16:13 02/27/23 16:24 Temperature 97 F L Temperature Source Temporal Pulse Rate 129 H 87 Respiratory Rate 18 14 Blood Pressure 144/99 H 123/75 H Blood Pressure Mean 114 91 Pulse Ox 99 99 Oxygen Delivery Method Room Air Room Air Room Air 02/27/23 17:13 02/27/23 18:13 Temperature Temperature Source Pulse Rate 84 75 Respiratory Rate 15 16 Blood Pressure 132/77 H 127/78 H Blood Pressure Mean 95 94 Pulse Ox 98 98 Oxygen Delivery Method Room Air Room Air MDM MDM MDM Narrative Medical decision making narrative: Patient presents with chest pain that started at rest. She appears well and non toxic. Vital signs within normal limits. Cardiopulmonary exam is normal. She has mild right upper quadrant tenderness but negative Du sign. She states she has been dealing with an unknown liver issue and has gallbladder polyps and gets biliary colic with certain foods. She did eat fried cauliflower about an hour prior to these symptoms starting. Initial EKG showed A-fib RVR at 106 bpm. She has no prior record of A fib on past EKGs. During my examination bedside telemetry shows normal sinus rhythm at 80 bpm so repeat EKG was obtained and shows she is now NSR at 78 bpm. Serial cardiac enzymes are within normal limits at 4, 5. CBC shows mild pancytopenia at 3.6/10.3/135 which is similar to previous. 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 Electrolytes and renal function are unremarkable. LFTs and lipase are slightly elevated which also appears to be her baseline. Bilirubin is normal. I suspect patient's chest pressure/palpitations were secondary to new onset A-fib. I spoke with Dr. Manzano who recommended to stop aspirin, continue Plavix and start Eliquis 5 mg twice daily. He also recommended increasing carvedilol to 25 mg twice daily. All of these changes were discussed with the patient including risks and benefits of anticoagulation. First dose of Eliquis was given here and she was provided a co-pay card. She was instructed to call cardiology for follow-up appointment and was discharged in stable condition. External records reviewed: Echocardiogram 02/08/2023 EF 65%, no significant abnormalities Differential includes arrhythmia, ACS, GERD, biliary colic. She has no risk factors for PE. Consults: Cardiology, Dr Manzano I considered admission for new onset A-fib but it is nonsustained and she is hemodynamically stable and serial cardiac enzymes are normal so this is not indicated. Lab Data Attestation: I reviewed the patient's lab results. Labs: Laboratory Results - last 24 hr 02/27/23 02/27/23 16:45 18:59 WBC 3.6 L RBC 3.39 L Hgb 10.3 L Hct 31.0 L MCV 91.4 MCH 30.4 MCHC 33.2 RDW Std Deviation 45.7 H RDW Coeff of Ted 13.5 Plt Count 135 L MPV 12.7 H Immature Gran % (Auto) 0.300 Neut % (Auto) 54.0 Lymph % (Auto) 28.5 Knott % (Auto) 13.3 H Eos % (Auto) 3.6 Baso % (Auto) 0.3 Absolute Neuts (auto) 2.0 Absolute Lymphs (auto) 1.03 Nucleated RBC % 0 Sodium 132 L Potassium 3.8 Chloride 99 Carbon Dioxide 22.0 Anion Gap 11 BUN 17 Creatinine 0.86 Estim Creat Clear Calc 59.70 Est GFR (MDRD) Af Amer 87 Est GFR (MDRD) Non-Af 72 BUN/Creatinine Ratio 19.7 Glucose 119 H Calcium 8.4 L Total Bilirubin 0.30 Direct Bilirubin 0.14 AST 112 H ALT 110 H Alkaline Phosphatase 108 Troponin I High Sens 4 5 Total Protein 7.5 Albumin 3.4 Globulin 4.1 Lipase 89 H Radiography Diagnostic Testing: Clinical Impression(s) from Imaging Studies Chest X-Ray 02/27/23 16:45 IMPRESSION: No acute radiographic abnormalities. Electronically Signed: Wilder Baeza MD at 17:23 EDT , ED attending interpretation of 1-view chest x-ray shows normal heart size, no acute infiltrate, edema, or effusion. EKG Initial EKG: Attestation: I personally reviewed and interpreted this EKG as follows: Comments: A-fib with RVR at 106 bpm, no STEMI criteria Discharge Plan Triage Chief Complaint: Chest Pain ED Midlevel Provider: Vikki Grover ED Provider: Myriam Burt Dx/Rx/DC Orders Clinical Impression: Atypical chest pain, Atrial fibrillation, new onset, Heart palpitations Instructions: AFib Prescriptions: New Eliquis 5 mg tablet 5 mg PO BID 30 Days Qty: 60 0RF carvedilol 25 mg tablet 25 mg PO BID 30 Days Qty: 60 0RF Rx Instructions: must administer with a meal/food. No Action epinephrine 0.3 mg/0.3 mL auto-injector 0.3 mg IM ONCE Rx Instructions: as a single dose; may repeat once triamcinolone acetonide 0.1 % cream 1 applic topical DAILY naproxen 500 mg tablet 500 mg PO BID PRN (Reason: pain) budesonide [Pulmicort] 1 mg/2 mL suspension for nebulization 0.5 mg inhalation BID PRN (Reason: sob) aspirin 81 mg tablet,delayed release (DR/EC) 81 mg PO DAILY amlodipine 5 mg tablet 5 mg PO DAILY Qty: 30 1RF clopidogrel [Plavix] 75 mg tablet 75 mg PO DAILY Qty: 34 1RF pravastatin 20 mg tablet 20 mg PO QHS Qty: 30 4RF fluticasone propionate 1 SPRAY spray,suspension 2 spray NASAL DAILY citalopram 20 MG tablet 20 mg PO DAILY montelukast 10 MG tablet 10 mg PO DAILY hydrochlorothiazide 25 MG tablet 25 mg PO DAILY losartan 100 MG tablet 50 mg PO DAILY levalbuterol tartrate 15 GM HFA aerosol inhaler 15 g IH Q4H PRN PRN (Reason: Shortness Of Breath) lansoprazole 30 mg capsule,delayed release(DR/EC) 30 mg PO DAILY metformin 500 mg tablet extended release 24 hr 1,000 mg PO BID nitroglycerin 0.4 mg Tablet, Sublingual 0.4 mg sublingual Q5M PRN (Reason: Cardiac/Chest Pain) Qty: 15 6RF carvedilol 12.5 mg tablet 12.5 mg PO BID Qty: 180 1RF Rx Instructions: must administer with a meal/food Primary Care Provider: Opal Bernal Referrals: Opal Bernal MD [Primary Care Provider] - Activity Restrictions/Additional Instructions: STOP TAKING ASPIRIN. Keep taking plavix and I prescribed a new blood thinner called Eliquis which you take twice daily. This is to prevent blood clots which can occur when you have an irregular heartbeat called A-fib. You already take carvedilol twice daily. I am increasing the dose to 25 mg twice a day. Please call the cardiology office for follow-up appointment. Disposition Disposition: Home, Self Care
[2023-02-27] MEDS: Aspirin 81 MG TAB.CHEW 324 MG PO (16:41)
--- NOTE | 2023-02-27 16:45 | RAD_ITS ---
INDICATION: chest pain EXAMINATION/TECHNIQUE: X-RAY - XR Chest 1 View COMPARISON: None. FINDINGS: The lungs are clear. The cardiomediastinal silhouette is unremarkable. No pleural effusion or pneumothorax. No acute osseous abnormalities. RAD/Chest 1 View (Portable) IMPRESSION: No acute radiographic abnormalities. Electronically Signed: Wilder Baeza MD at 17:23 EDT ,
[2023-02-27 16:55] LABS: Absolute Lymphocyte Count 1.03 X10^3/uL (0.83-4.51); Basophil# 0.01 X10^3/uL; Basophil% 0.3 % (0-1); Eosinophil# 0.13 X10^3/uL; Eosinophils% 3.6 % (0-5); Hemoglobin 10.3 g/dL (12.0-15.0); Lymphocyte # 1.03 X10^3/ul (0.83-4.51); Lymphocyte % 28.5 % (19-41); Mean Corp Hgb Conc 33.2 g/dL (32-36); Mean Corpuscular Hgb 30.4 pg (27.0-32.0); Mean Corpuscular Volume 91.4 fL (81-99); Mean Platelet Vol. 12.7 fl (6.2-12.0); Monocyte# 0.48 X10^3/uL; Monocyte% 13.3 % (0-10); NRBC Flagged by Analyzer 0 % (0-5); Neutrophil # 1.95 X10^3/uL (2.7-7.7); POSITIVE COUNT YES; Platelet Count 135 K/mm3 (150-450); RBC Distribution Width CV 13.5 % (11.6-14.6); RBC Distribution Width SD 45.7 fl (35.1-43.9); Red Blood Count 3.39 M/mm3 (4.2-5.4); White Blood Count 3.6 K/mm3 (4.4-11.0)
[2023-02-27 17:11] LABS: AST(SGOT) 112 U/L (15-37); Alanine Aminotransfer ALT/SGPT 110 U/L (13-56); Albumin, Serum 3.4 g/dL (3.2-5.0); Alkaline Phosphatase 108 U/L (45-117); Anion Gap 11 (5-15); BUN 17 mg/dL (7-18); BUN/Creat Ratio 19.7 RATIO (10-20); Bilirubin, Direct 0.14 mg/dL (0.00-0.30); Calcium,Total 8.4 mg/dL (8.5-10.1); Chloride 99 mmol/L (98-107); Creatinine, Serum 0.86 mg/dL (0.55-1.02); EST Glomerular Filtration Rate 72 mL/min (>60); Est Glom Filt Rate - Afr Amer 87 mL/min (>60); Globulin 4.1 g/dL (2.2-4.2); Glucose 119 mg/dL (74-106); Lipase 89 U/L (13-75); Potassium 3.8 mmol/L (3.5-5.1); Protein, Total 7.5 g/dL (6.4-8.2); Sodium Level 132 mmol/L (136-145); Troponin-I HS (w/2H Reflex) 4 pg/mL (3.0-54.0)
[2023-02-27 17:13] VITALS: BP 132/77; PULSE 84; RESP 15; O2SAT 98
[2023-02-27 18:13] VITALS: BP 127/78; PULSE 75; RESP 16; O2SAT 98
[2023-02-27 18:50] LABS: Reflex Troponin-HS? (from REC) Y
[2023-02-27 19:00] VITALS: BP 122/84; PULSE 82; RESP 13; O2SAT 96
[2023-02-27 19:31] LABS: Troponin-I HS 5 pg/mL (3.0-54.0)
[2023-02-27] MEDS: APIXABAN 5 MG TABLET PO (19:59)
== END 2023-02-27 20:02 | disposition home or self-care (01) ==
PROVIDERS: Physician Assistant; Emergency Provider Emergency Medicine; PCP Internal Medicine; Visit Provider Emergency Medicine
DX: R07.89 Other chest pain (principal); I48.91 Unspecified atrial fibrillation; E11.9 Type 2 diabetes mellitus without complications; E78.5 Hyperlipidemia, unspecified; I10 Essential (primary) hypertension; I25.10 Atherosclerotic heart disease of native coronary artery without angina pectoris; R00.2 Palpitations; Z79.82 Long term (current) use of aspirin; Z79.02 Long term (current) use of antithrombotics/antiplatelets; Z79.899 Other long term (current) drug therapy; Z79.84 Long term (current) use of oral hypoglycemic drugs; Z98.41 Cataract extraction status, right eye; Z98.42 Cataract extraction status, left eye; Z90.710 Acquired absence of both cervix and uterus; Z95.5 Presence of coronary angioplasty implant and graft
CPT/HCPCS: 71045; 80048; 80076; 83690; 84484; 85025; 93005; 99285; A4216

== ENCOUNTER 2023-03-05 08:00 | Outpatient (RCR) | payer OTHER, SELFPAY ==
[2023-01-19 08:39] VITALS: BMI 33.6
--- NOTE | 2023-02-16 08:29 | CR.ITP_ITS ---
Exercise - Initial Assessment Visit Session #:: 4 Nutrition - Initial Assessment Weight Mgt (Other Care) Height: 5 ft 3 in Weight:: 189 lb BMI: 33.5 Psychosocial - Initial Assess Target Goals Target Goals Patient Health Questionnaire PHQ-9 Screening 30-Day Re-eval Assessment: 1. Little interest or pleasure in doing things: Not at all 2. Feeling down, depressed, or hopeless: Not at all 3. Trouble falling or staying asleep, or sleeping too much: Not at all 4. Feeling tired or having little energy: Nearly every day 5. Poor appetite or overeating: More than half the days 6. Feeling bad about yourself -- or that you are a failure or have let yourself or your family down: Not at all 7. Trouble concentrating on things, such as reading the newspaper or watching television: Not at all 8. Moving or speaking so slowly that other people could have noticed. Or the opposite - being so fidgety or restless that you have been moving around a lot more than usual: Not at all 9. Thoughts that you would be better off , or of hurting yourself in some way: Not at all How difficult have these problems made it for you to do your work, take care of things at home, or get along with other people?: Somewhat difficult Total Score: 5 Self-Efficacy 6-Item Scale 30-Day Re-eval Assessment: We would like to know how confident you are in doing certain activities. Please select your confidence level for: Fatigue Select Number: 4 Physical Discomfort or Pain Select Number: 5 Emotional Distress Select Number: 8 Other Symptoms or Health Problems Select Number: 8 Different Tasks and Activities Select Number: 7 Medication Select Number: 8 Total Score:: 6 Nutrition Survey Nutrition Survey Instructions Scoring Instructions Exercise - 30-day Assessment Visit Date of Eval: 02/16/23 Session #:: 4 Physician Prescribed Exercise Modalities: Treadmill, Airdyne and NuStep Frequency: 3x/week for 12 weeks [36 sessions] Intensity: 60-80% of age predicted maximum heart rate reserve Duration: 30 - 45 minutes Current METSs:: 4.5 Target Heart Rate:: 106-123 Current RPE:: 11-15 Maximum Excercise HR:: 124 Resting Blood Pressure: 122/78 Maximum Exercise Blood Pressure: 148/80 EKG Type: NSR to ST Outcomes & Goals Goals:: Verbalizes understanding of THR, RPE & goal METS by session 6, Documents in home exercise log/reports 30 min aerobic 5 day/wk by DC, Demonstrates accurate pulse taking by DC and Other additional outcome/goals: see below Intervention & Plan Exercise Program Goals: Instruct on personal THR & RPE, Instruct on MET level & personal MET goal, Show patient to take own pulse /validate performance until accurate, Instruct on home exercise and Other additional plan/int 30-day Reassessments 30 day Reassessments:: Progressing Reassessment Notes & Comments:: RPE explained Physical Activity Home Exercise Physical Activity - Home Exercise: Safe Exercise, Warm-up, Self-monitoring, Compliance Tester l-Down, Home Exercise > 30 min Daily and Sitting Time <3 hours/daily Outcomes & Goals Outcomes/Goals: Demonstrates correct Warm-up/exercise Cool-Down (S3) if = 2.5 METs, Verbalizes symptoms of exercise intolerance by Session 3 (S3), Demonstrate safe equipment use (S3) & follows exercise prescrition (6) and Other: See below Intervention & Plan Plan/Intervention: Instruct warm-up & cool-down if exercising at > 2 METs, Instruct on symptoms of exercise intolerance & actions to take, Instruct & monitor on saf, Assess intial functional capacity & safety risk and Other See below 30-day Reassessments 30 day Reassessments:: Progressing Reassessment Notes & Comments:: warm up encouraged Nutrition - 30-Day Assessment Program Goals Nutrition Program Goals Patient has diagnosis of Hyperlipidemia (ICD E78)?: No Visit Date of Eval: 02/16/23 Session #:: 4 Cholesterol/Lipids (Other Core Measures) Determine presence & major risk factors that modify LDL goal: Cigarette smoking, Hypertension or hypertensive medication, Low HDL cholesterol <40 mg/dL*, Family history of premature CHD in Male < 55 years: female <65 yearsFa and Age men > 45 years; women >/= 55 years Outcomes/Goals: Pt IDs own risk factors & lifestyle modifications by Session 10, Verbalizes symptoms of angina & response by session 3., Pt independently manages and Other Additional Outcomes/Goals: Intervention/Plan: Advocate for lipid panel cholesterol medication if applicable, Instruct on personal lipid levels & lipid goals/NCEP guidelines, Instruct on cholesterol and Other additional plan/int 30-day Reassessments:: Progressing Reassessment Notes & Comments:: pt to attend nutrition class Diabetes (Other Core Measures) Diabetes Type: Diagnosis Type I ICD-10 E10 Insulin dependent injection/pump?: No Non-Insulin Dependent?: Yes Do you monitor your blood sugar at home?: Yes Referral to Diabetic Clinic:: Yes Outcomes/Goals:: Able to state symptoms of, Able to state, Able to state and Other additional Intervention/Plan:: Instruct on, Refer to, Instruct on and Other 30-day Reassessments:: Progressing Weight Mgt (Other Care) Height: 5 ft 3 in Weight:: 189 lb BMI: 33.5 Diagnosis Overweight/Obesity BMI> 30% ICD-10 E66: Yes Diagnosis High BMI/Morbid Obesity BMI> 35% ICD-10 Z68: No Outcomes/Goals: Pt sets, maintains & shows weight loss goal & trend during rehab and Other additional outcomes/goals Intervention/Plan: Instruct on ideal BMI & set weight loss goal w/patient, Assist pt to ID & incorporate diet changes for weight loss by S9, Refer to Structured Weight Loss program as appropriate, Encourage goal of using 250- 300dcal per session for weight loss and Other additional plan/interventions 30 day Reassessments:: Progressing Reassessment Notes & Comments:: pt to attend nutrition class Healthy Eating Habits Will attend diet classes:: Yes Outcomes/Goals:: Consume diet rich in vegs,fruits,whole grain/high fiber,fish,lean meat, Limit sat/trans fats,cholesterol & added salts & sugars and Other additional outcome/goals: Intervention/Plan:: Assess current eating habits and Other Additional plan/interventions 30-day Reassessments:: Progressing Reassessment Notes & Comments:: pt to attend nutrition class Education Gave educational materials for:: Signs & symptoms of hypoglycemia, Signs & symptoms of hyperglycemia, Relate diabetes to coronary artery disease and Healthy eating Nutrition - 60-Day Assessment Weight Mgt (Other Care) Height: 5 ft 3 in Weight:: 189 lb BMI: 33.5 Core - 30-Day Assessment Visit Date of Eval: 02/16/23 Session #:: 4 Medication Compliance Preventative Medication(s):: Aspirin, NURYS inhibitor, Beta lorenzo and ARB (Angiotensi Rcap) H/O mental health issues: depression, anxiety, or addiction?: No Doesn?t believe in the benefits of treatment?: No Believes medications are unnecessary or harmful?: No Has a concern about medication side effects?: No Expresses concern over the cost of medications?: No Outcomes/Goals: Verbalizes medications,desired effect & common side effects @ DC, Pt self-reports following medication regimen, Keeps card in wallet w/medications listed by DC and Other additional outcome/goals: Interventions/plans: Instruct on medication effects & side effects, Review medication list w/patient every two weeks, Instruct importance of taking meds as ordered & assist problem solving and Other additional 30-day Reassessments:: Progressing Reassessment Notes & Comments:: pt encouraged to take meds Tobacco Use Tobacco Use: Non-smoker Hypertension Hypertension Diagnosis:: Hypertension ICD-10 I10 Resting Blood Pressure:: 122/78 [place] [employer] Hypertension Guidelines Peak Exercise Blood Pressure:: 148/80 Outcomes/Goals: Able to verbalize/achieve optimal blood pressure <130/80, Incorporates diet changes & exercise for blood pressure control by DC and Other additional outcomes/goals Interventions/plan: Instruct on optimal blood pressure, hypertension & medications, Instruct on effects of sodium, alcohol, stress, exercise &hypertension and Other additional plan/interventions 30 day Reassessments:: Progressing Reassessment Notes & Comments:: pt encouraged to take his meds Tobacco Cessation Referral Smoking Cessation Referral:: No Individual Education/Counseling:: No Education Schedule Given:: Yes Psychosocial - 30-Day Assess VIsit Date of Eval: 02/16/23 Session #:: 4 Target Goals Target Goals Psychosocial - 60-Day Assess Target Goals Target Goals Psychosocial - 90-Day Assess Target Goals Target Goals Psychosocial - Final Assessmen Target Goals Target Goals Nutrition - 90-Day Assessment Weight Mgt (Other Care) Height: 5 ft 3 in Weight:: 189 lb BMI: 33.5 Nutrition - Final Assessment Weight Mgt (Other Care) Height: 5 ft 3 in Weight:: 189 lb BMI: 33.5
[2023-02-16 08:41] VITALS: BP 122/78; BMI 33.5
== END 2023-03-06 23:59 ==
LOC: CR 08:00
PROVIDERS: PCP Internal Medicine; Referring Provider Internal Medicine Cardiovascular Disease; Visit Provider Internal Medicine Cardiovascular Disease
DX: I25.10 Atherosclerotic heart disease of native coronary artery without angina pectoris (principal); Z95.5 Presence of coronary angioplasty implant and graft
CPT/HCPCS: 93798

== ENCOUNTER → 2023-03-12 | Outpatient (CLI) | payer OTHER, SELFPAY ==
[2023-02-16 08:41] VITALS: BMI 33.5
== END | disposition home or self-care (01) ==
LOC: LAB 15:57
PROVIDERS: PCP Internal Medicine; Referring Provider Otolaryngology; Visit Provider Otolaryngology
DX: J32.8 Other chronic sinusitis (principal)
CPT/HCPCS: 87070; 87077; 87186; 87205

== ENCOUNTER 2023-03-29 22:12 | Emergency (ER) | payer OTHER, SELFPAY ==
[2023-03-21 08:16] VITALS: BMI 32.2
[2023-03-29 22:14] VITALS: BP 141/75; PULSE 73; RESP 16; TEMP 36.6; O2SAT 99; BMI 33.1
--- NOTE | 2023-03-29 22:38 | EDS_ITS ---
HPI History of Present Illness Chief Complaint: Palpitations Informant: patient Onset/Context/Timing Onset: Today Narrative Narrative: Patient presents stating that she feels like she is in A-fib again. She has had paroxysmal A-fib and is currently on Eliquis along with Cardizem and carvedilol. Patient states since 530 this evening she has been feeling her heart racing and beating irregularly. She talked to Dr. Manzano on the phone about an hour ago who advised her to take an extra dose of carvedilol. After symptoms did not subside in an hour she presents to the emergency room. She states she does have a slight heaviness in her chest. Patient was seen by Dr. Manzano on the of this month. At that time her Cardizem was increased to 180 and plan was to continue her beta-blockers and Eliquis. She was referred to EP for evaluation. [facility] Medical History Abnormal bruising Abnormal exercise tolerance test Abnormal finding on EKG Atrial fibrillation by electrocardiography Cervicalgia Chest pain Coronary artery disease Diabetes Dyslipidemia Dyspnea Essential hypertension Fibromyalgia Graves disease Srini's disease HSV-2 infection Interstitial lung disease Lupus Mixed connective tissue disease Palpitations Raynaud disease SOB (shortness of breath) on exertion Home Medications citalopram 20 mg tablet 20 mg PO DAILY 05/15/20 [History Last Taken Unknown] fluticasone propionate 50 mcg/actuation nasal spray,suspension 2 spray NASAL DAILY 05/15/20 [History Last Taken Unknown] levalbuterol tartrate 45 mcg/actuation aerosol inhaler 15 g IH Q4H PRN PRN Shortness Of Breath 05/15/20 [History Last Taken Unknown] losartan 100 mg tablet 50 mg PO DAILY 05/15/20 [History Last Taken 12/27/22] montelukast 10 mg tablet 10 mg PO DAILY 05/15/20 [History Last Taken Unknown] epinephrine 0.3 mg/0.3 mL injection, auto-injector 0.3 mg IM ONCE 08/04/22 [History Last Taken Unknown] triamcinolone acetonide 0.1 % topical cream 1 applic topical DAILY 08/04/22 [History Last Taken Unknown] lansoprazole 30 mg capsule,delayed release 30 mg PO DAILY 08/08/22 [History Last Taken Unknown] metformin 500 mg tablet,extended release 24 hr 1,000 mg PO BID 08/08/22 [History Last Taken 12/26/22] naproxen 500 mg tablet 500 mg PO BID PRN pain 08/08/22 [History Last Taken Unknown] nitroglycerin 0.4 mg sublingual tablet 0.4 mg sublingual Q5M PRN Cardiac/Chest Pain #15 tabs 12/27/22 [Rx Last Taken Unknown] budesonide 1 mg/2 mL suspension for nebulization (Pulmicort) 0.5 mg inhalation BID PRN sob 01/24/23 [History Last Taken Unknown] pravastatin 20 mg tablet 20 mg PO QHS #30 tabs 02/21/23 [Rx Last Taken Unknown] apixaban 5 mg tablet (Eliquis) 5 mg PO BID 30 days #60 tabs 02/27/23 [Rx Last Taken Unknown] carvedilol 25 mg tablet 25 mg PO BID 30 days #60 tabs 02/27/23 [Rx Last Taken Unknown] diltiazem HCl 180 mg capsule,extended release 24 hr (Cardizem CD) 180 mg PO DAILY #30 caps 03/21/23 [Rx Last Taken Unknown] clopidogrel 75 mg tablet (Plavix) 75 mg PO DAILY #90 tabs 03/26/23 [Rx Last Taken Unknown] Allergy/AdvReac Type Severity Reaction Status Date / Time cantaloupe Allergy Angioedema Verified 03/29/23 22:16 Sulfa (Sulfonamide Allergy Hives Verified 03/29/23 22:16 Antibiotics) levofloxacin [From Levaquin] AdvReac Intermediate Hives Verified 03/29/23 22:16 Family History Mother CAD (coronary artery disease) stents Hypertension Vertigo Pacemaker Enlarged heart Father Cancer prostate Sister Sjogrens syndrome Grandmother Heart disease Grandfather Heart disease Uncle Heart disease Enlarged heart Surgical History Hx of bilateral cataract extraction Hx of dilation and curettage Hx of hysterectomy Hx of sinus surgery Hx of tonsillectomy Stented coronary artery (~12/27/22) Social History Smoking Status: Never smoker alcohol intake: current alcohol intake frequency: holidays/special occasions only substance use type: does not use caffeine: Yes Type: coffee Number of servings: 1 ROS ROS ED Constitutional Constitutional ED: Denies chills or fever(s) Eyes Eyes: Denies discharge from eye(s) ENT ENT ED: Denies discharge from eye(s), rhinorrhea or sore throat Cardiovascular Cardiovascular: Reports chest pain and palpitations Respiratory/Chest Respiratory/Chest: Reports dyspnea; Denies cough Gastrointestinal Gastrointestinal: Denies abdominal pain, diarrhea, nausea or vomiting Genitourinary Genitourinary ED: Denies dysuria Musculoskeletal Musculoskeletal: Denies back pain or extremity pain Integumentary Denies Abrasions or rash Neurologic Neurologic: Reports headache(s); Denies weakness Psychiatric Psychiatric: Denies depression Allergic/Immunologic Allergic/Immunologic ED: Denies lip swelling or urticaria EXAM Physical Exam Const Vital Signs: 03/29/23 22:14 03/29/23 22:37 03/29/23 23:00 Temperature 97.9 F Temperature Source Temporal Pulse Rate 73 104 H Respiratory Rate 16 15 Respiratory Effort Non-Labored Blood Pressure 141/75 H 122/60 H Blood Pressure Mean 97 80 Pulse Ox 99 97 Oxygen Delivery Method Room Air Room Air Positive well nourished and well developed General Appearance ED: well developed HEENT Reports moist mucous membranes Eyes EOMs intact bilaterally Chest Wall inspection of chest normal and palpation of chest normal Resp normal respiratory effort and clear to auscultation bilaterally Cardio Rhythm: abnormal rhythm irregularly irregular GI non-tender Palpation: soft Extremity normal to inspection Neuro oriented x3 and no sensory deficits noted Motor Exam: strength 5/5 throughout Psych mental status grossly normal Skin no rashes or lesions noted MDM MDM MDM Narrative Medical decision making narrative: Patient placed on pvc monitor. IV line initiated. Labwork obtained to evaluate for leukocytosis, anemia, and electrolyte derangement. EKG obtained to evaluate for cardiac arrhythmia/ischemia. Chest x-ray obtained to evaluate for acute lung pathology, cardiac size, or mediastinal abnormality. Patient given IV Cardizem for rate control. History & Record Review Discussion w/independent historian: Patient Additional record(s) reviewed:: Prior outpatient record, Prior ED visit and Prior labs Lab Data Attestation: I reviewed the patient's lab results. Labs: Laboratory Results - last 24 hr 03/29/23 22:45 WBC 4.0 L RBC 3.21 L Hgb 9.9 L Hct 30.2 L MCV 94.1 MCH 30.8 MCHC 32.8 RDW Std Deviation 50.1 H RDW Coeff of Ted 14.6 Plt Count 135 L MPV 11.2 Immature Gran % (Auto) 0.200 Neut % (Auto) 55.4 Lymph % (Auto) 33.8 [place] % (Auto) 10.2 H Eos % (Auto) 0.2 Baso % (Auto) 0.2 Absolute Neuts (auto) 2.2 Absolute Lymphs (auto) 1.36 Nucleated RBC % 0 Sodium 136 Potassium 4.1 Chloride 107 Carbon Dioxide 22.0 Anion Gap 7 BUN 16 Creatinine 0.98 Estim Creat Clear Calc 52.39 Est GFR (MDRD) Af Amer 75 Est GFR (MDRD) Non-Af 62 BUN/Creatinine Ratio 16.3 Glucose 162 H Calcium 9.0 Troponin I High Sens 6 TSH 0.84 Radiography Chest X-Ray - ED: 1 View, Read by ED Physician and Chronic Changes Diagnostic Testing: Clinical Impression(s) from Imaging Studies Chest X-Ray 03/29/23 22:48 IMPRESSION: Question bronchitis versus vascular crowding from decreased inspiration. No focal infiltrate or pleural effusion. Electronically Signed: Clarissa Ernandez MD at 23:28 EST , EKG Initial EKG: Attestation: I personally reviewed and interpreted this EKG as follows: Interpretation: Atrial Fibrillation (A-fib RVR at 104. No significant ST change.) Treatment and Re-Evaluation :: CBC reveals a white count of 4.0 with a hemoglobin 9.9. Chemistry studies unremarkable with normal potassium. Troponin is normal at 6 and TSH is normal at 0.84. Portable chest x-ray per my interpretation was chronic changes. Radiology interpretation reviewed. Initial EKG is A-fib RVR with a rate of 104. Patient was given 10 mg of IV Cardizem. On repeat evaluation heart rate is in the high 70s and she has converted back to a sinus rhythm at this time. Patient will continue her medication regimen at home. She will continue her Eliquis. Return instructions provided. Discharge Plan Triage Chief Complaint: Palpitations ED Provider: Myriam Burt Dx/Rx/DC Orders Clinical Impression: Paroxysmal atrial fibrillation Instructions: ED AFIB, ED Palpitations Prescriptions: No Action epinephrine 0.3 mg/0.3 mL auto-injector 0.3 mg IM ONCE Rx Instructions: as a single dose; may repeat once triamcinolone acetonide 0.1 % cream 1 applic topical DAILY naproxen 500 mg tablet 500 mg PO BID PRN (Reason: pain) budesonide [Pulmicort] 1 mg/2 mL suspension for nebulization 0.5 mg inhalation BID PRN (Reason: sob) pravastatin 20 mg tablet 20 mg PO QHS Qty: 30 4RF diltiazem HCl [Cardizem CD] 180 mg capsule,extended release 24hr 180 mg PO DAILY Qty: 30 6RF fluticasone propionate 1 SPRAY spray,suspension 2 spray NASAL DAILY citalopram 20 MG tablet 20 mg PO DAILY montelukast 10 MG tablet 10 mg PO DAILY losartan 100 MG tablet 50 mg PO DAILY levalbuterol tartrate 15 GM HFA aerosol inhaler 15 g IH Q4H PRN PRN (Reason: Shortness Of Breath) lansoprazole 30 mg capsule,delayed release(DR/EC) 30 mg PO DAILY metformin 500 mg tablet extended release 24 hr 1,000 mg PO BID Eliquis 5 mg tablet 5 mg PO BID 30 Days Qty: 60 0RF carvedilol 25 mg tablet 25 mg PO BID 30 Days Qty: 60 0RF Rx Instructions: must administer with a meal/food. nitroglycerin 0.4 mg Tablet, Sublingual 0.4 mg sublingual Q5M PRN (Reason: Cardiac/Chest Pain) Qty: 15 6RF clopidogrel [Plavix] 75 mg tablet 75 mg PO DAILY Qty: 90 3RF Primary Care Provider: Opal Bernal Referrals: Ailcia Manzano MD [Med Staff - Active Staff] - As Needed Opal Bernal MD [Primary Care Provider] - Disposition Disposition: Home, Self Care
--- NOTE | 2023-03-29 22:48 | RAD_ITS ---
STUDY: X-RAY CHEST REASON FOR EXAM: Female, 57 years old. cp TECHNIQUE: Single AP portable view of the chest. COMPARISON: 02/27/2023. FINDINGS: The lungs are slightly underexpanded with fullness of the peribronchial markings, cannot exclude mild bronchitis versus vascular crowding. Otherwise lung bentley are clear. There is no demonstrated pleural abnormality. Normal size heart. Normal mediastinum and balwinder. Normal visualized pulmonary arteries. Normal visualized aortic arch and descending thoracic aorta. Normal visualized thoracic spine. Old right-sided rib fractures. There is no demonstrated abnormality of the visualized soft tissue structures of the upper abdomen. RAD/Chest 1 View (Portable) IMPRESSION: Question bronchitis versus vascular crowding from decreased inspiration. No focal infiltrate or pleural effusion. Electronically Signed: Clarissa Ernandez MD at 23:28 [facility] ,
[2023-03-29] MEDS: dilTIAZem 25 MG/5 ML Vial 10 MG IV BOLUS (22:55)
[2023-03-29] MEDS: 0.9% Normal Saline (500mL Bag) 500 ML 999 ML IV (22:59)
[2023-03-29 23:00] VITALS: BP 122/60; PULSE 104; RESP 15; O2SAT 97
[2023-03-29 23:01] LABS: Absolute Lymphocyte Count 1.36 X10^3/uL (0.83-4.51); Absolute Neutrophil Count 2.2 X10^3/uL (2.0-7.7); Basophil# 0.01 X10^3/uL; Basophil% 0.2 % (0-1); Eosinophil# 0.01 X10^3/uL; Eosinophils% 0.2 % (0-5); Hematocrit 30.2 % (37-47); Hemoglobin 9.9 g/dL (12.0-15.0); Lymphocyte # 1.36 X10^3/ul (0.83-4.51); Lymphocyte % 33.8 % (19-41); Mean Corp Hgb Conc 32.8 g/dL (32-36); Mean Corpuscular Hgb 30.8 pg (27.0-32.0); Mean Corpuscular Volume 94.1 fL (81-99); Mean Platelet Vol. 11.2 fl (6.2-12.0); Monocyte# 0.41 X10^3/uL; Monocyte% 10.2 % (0-10); NRBC Flagged by Analyzer 0 % (0-5); Neutrophil # 2.22 X10^3/uL (2.7-7.7); Neutrophil % 55.4 % (47-70); Platelet Count 135 K/mm3 (150-450); RBC Distribution Width CV 14.6 % (11.6-14.6); RBC Distribution Width SD 50.1 fl (35.1-43.9); Red Blood Count 3.21 M/mm3 (4.2-5.4)
[2023-03-29 23:24] LABS: Anion Gap 7 (5-15); BUN 16 mg/dL (7-18); BUN/Creat Ratio 16.3 RATIO (10-20); Chloride 107 mmol/L (98-107); Creatinine, Serum 0.98 mg/dL (0.55-1.02); EST Glomerular Filtration Rate 62 mL/min (>60); Est Glom Filt Rate - Afr Amer 75 mL/min (>60); Estimated Creatinine Clearance 52.39 ml/min; Glucose 162 mg/dL (74-106); Potassium 4.1 mmol/L (3.5-5.1); Sodium Level 136 mmol/L (136-145); Thyroid Stim Hormone (TSH) 0.84 uIU/mL (0.358-3.74); Troponin-I HS 6 pg/mL (3.0-54.0)
[2023-03-29 23:49] VITALS: BP 131/71; PULSE 78; RESP 20; O2SAT 98
== END 2023-03-29 23:57 | disposition home or self-care (01) ==
PROVIDERS: Emergency Provider Emergency Medicine; PCP Internal Medicine; Visit Provider Emergency Medicine
DX: I48.0 Paroxysmal atrial fibrillation (principal); E11.9 Type 2 diabetes mellitus without complications; I25.10 Atherosclerotic heart disease of native coronary artery without angina pectoris; Z79.01 Long term (current) use of anticoagulants; I10 Essential (primary) hypertension; E78.5 Hyperlipidemia, unspecified; Z79.899 Other long term (current) drug therapy; Z79.84 Long term (current) use of oral hypoglycemic drugs; Z79.02 Long term (current) use of antithrombotics/antiplatelets; Z90.710 Acquired absence of both cervix and uterus; Z95.5 Presence of coronary angioplasty implant and graft
CPT/HCPCS: 71045; 80048; 84443; 84484; 85025; 93005; 96361; 96374; 99283; J7030; A4216

== ENCOUNTER 2023-04-04 13:00 | Outpatient (RCR) | payer OTHER, SELFPAY ==
[2023-02-16 08:41] VITALS: BMI 33.5
[2023-03-07 00:23] VITALS: BP 122/78
--- NOTE | 2023-03-21 08:05 | CR.ITP_ITS ---
Nutrition - Initial Assessment Weight Mgt (Other Care) Height: 5 ft 3 in Weight:: 182 lb BMI: 32.2 Psychosocial - Initial Assess Target Goals Target Goals Patient Health Questionnaire PHQ-9 Screening 60-Day Re-eval Assessment: 1. Little interest or pleasure in doing things: Not at all 2. Feeling down, depressed, or hopeless: Not at all 3. Trouble falling or staying asleep, or sleeping too much: Not at all 4. Feeling tired or having little energy: Nearly every day 5. Poor appetite or overeating: More than half the days 6. Feeling bad about yourself -- or that you are a failure or have let yourself or your family down: Not at all 7. Trouble concentrating on things, such as reading the newspaper or watching television: Not at all 8. Moving or speaking so slowly that other people could have noticed. Or the opposite - being so fidgety or restless that you have been moving around a lot more than usual: Not at all 9. Thoughts that you would be better off , or of hurting yourself in some way: Not at all How difficult have these problems made it for you to do your work, take care of things at home, or get along with other people?: Somewhat difficult Total Score: 5 Self-Efficacy 6-Item Scale 60-Day Re-eval Assessment: We would like to know how confident you are in doing certain activities. Please select your confidence level for: Fatigue Select Number: 4 Physical Discomfort or Pain Select Number: 5 Emotional Distress Select Number: 8 Other Symptoms or Health Problems Select Number: 8 Different Tasks and Activities Select Number: 7 Medication Select Number: 8 Total Score:: 6 Nutrition Survey Nutrition Survey Instructions Scoring Instructions Exercise - 60-day Assessment Visit Date of Eval: 03/21/23 Session #:: 17 Physician Prescribed Exercise Modalities: Treadmill, Airdyne and NuStep Frequency: 3x/week for 12 weeks [36 sessions] Intensity: 60-80% of age predicted maximum heart rate reserve Duration: 30 - 45 minutes Current METSs:: 6.5 Target Heart Rate:: 123-138 Current RPE:: 11.5-13 Maximum Excercise HR:: 133 Resting Blood Pressure: 124/68 Maximum Exercise Blood Pressure: 150/62 EKG Type: NSR to ST Outcomes & Goals Goals:: Verbalizes understanding of THR, RPE & goal METS by session 6, Documents in home exercise log/reports 30 min aerobic 5 day/wk by DC, Demonstrates accurate pulse taking by DC and Other additional outcome/goals: see below Intervention & Plan Exercise Program Goals: Instruct on personal THR & RPE, Instruct on MET level & personal MET goal, Show patient to take own pulse /validate performance until accurate, Instruct on home exercise and Other additional plan/int 30-day Reassessments 30 day Reassessments:: Progressing Reassessment Notes & Comments:: THR explained Physical Activity Home Exercise Physical Activity - Home Exercise: Safe Exercise, Warm-up, Self-monitoring, Cool-Down, Home Exercise > 30 min Daily and Sitting Time <3 hours/daily Outcomes & Goals Outcomes/Goals: Demonstrates correct Warm-up/exercise Cool-Down (S3) if = 2.5 METs, Verbalizes symptoms of exercise intolerance by Session 3 (S3), Demonstrate safe equipment use (S3) & follows exercise prescrition (6) and Other: See below Intervention & Plan Plan/Intervention: Instruct warm-up & cool-down if exercising at > 2 METs, Inst ruct on symptoms of exercise intolerance & actions to take, Instruct & monitor on saf, Assess intial functional capacity & safety risk and Other See below 30-day Reassessments 30 day Reassessments:: Progressing Reassessment Notes & Comments:: warm up encouraged Nutrition - 30-Day Assessment Weight Mgt (Other Care) Height: 5 ft 3 in Weight:: 182 lb BMI: 32.2 Nutrition - 60-Day Assessment Program Goals Nutrition Program Goals Patient has diagnosis of Hyperlipidemia (ICD E78)?: No Visit Date of Eval: 03/21/23 Session #:: 17 Cholesterol/Lipids (Other Core Measures) Determine presence & major risk factors that modify LDL goal: Cigarette smoking, Hypertension or hypertensive medication, Low HDL cholesterol <40 mg/dL*, Family history of premature CHD in Male < 55 years: female <65 yearsFa and Age men > 45 years; women >/= 55 years Outcomes/Goals: Pt IDs own risk factors & lifestyle modifications by Session 10, Verbalizes symptoms of angina & response by session 3., Pt independently manages and Other Additional Outcomes/Goals: Intervention/Plan: Advocate for lipid panel cholesterol medication if applicable, Instruct on personal lipid levels & lipid goals/NCEP guidelines, Instruct on cholesterol and Other additional plan/int 30-day Reassessments:: Progressing Reassessment Notes & Comments:: pt to attend nutrition class Diabetes (Other Core Measures) Diabetes Type: Diagnosis Type II ICD-10 E11 Insulin dependent injection/pump?: No Non-Insulin Dependent?: Yes Do you monitor your blood sugar at home?: Yes Referral to Diabetic Clinic:: Yes Outcomes/Goals:: Able to state symptoms of, Able to state, Able to state and Other additional Intervention/Plan:: Instruct on, Refer to, Instruct on and Other Weight Mgt (Other Care) Height: 5 ft 3 in Weight:: 182 lb BMI: 32.2 Diagnosis Overweight/Obesity BMI> 30% ICD-10 E66: Yes Diagnosis High BMI/Morbid Obesity BMI> 35% ICD-10 Z68: No Outcomes/Goals: Pt sets, maintains & shows weight loss goal & trend during rehab and Other additional outcomes/goals Intervention/Plan: Instruct on ideal BMI & set weight loss goal w/patient, Assist pt to ID & incorporate diet changes for weight loss by S9, Refer to Structured Weight Loss program as appropriate, Encourage goal of using 250- 300dcal per session for weight loss and Other additional plan/interventions 30 day Reassessments:: Progressing Reassessment Notes & Comments:: pt to attend nutrition class Healthy Eating Habits Will attend diet classes:: Yes Outcomes/Goals:: Consume diet rich in vegs,fruits,whole grain/high fiber,fish,lean meat, Limit sat/trans fats,cholesterol & added salts & sugars and Other additional outcome/goals: Intervention/Plan:: Assess current eating habits and Other Additional plan/interventions 30-day Reassessments:: Progressing Reassessment Notes & Comments:: pt to attend nutrition class Education Gave educational materials for:: Signs & symptoms of hypoglycemia, Signs & symptoms of hyperglycemia, Relate diabetes to coronary artery disease and Healthy eating Core - 60-Day Assessment Visit Date of Eval: 03/21/23 Session #:: 17 Medication Compliance Preventative Medication(s):: Aspirin, NURYS inhibitor and Beta lorenzo H/O mental health issues: depression, anxiety, or addiction?: No Doesn?t believe in the benefits of treatment?: No Believes medications are unnecessary or harmful?: No Has a concern about medication side effects?: No Expresses concern over the cost of medications?: No Outcomes/Goals: Verbalizes medications,desired effect & common side effects @ DC, Pt self-reports following medication regimen, Keeps card in wallet w/medications listed by DC and Other additional outcome/goals: Interventions/plans: Instruct on medication effects & side effects, Review medication list w/patient every two weeks, Instruct importance of taking meds as ordered & assist problem solving and Other additional 30-day Reassessments:: Progressing Reassessment Notes & Comments:: pt encouraged to take her meds. Tobacco Use Tobacco Use: Non-smoker Hypertension Hypertension Diagnosis:: Hypertension ICD-10 I10 Resting Blood Pressure:: 124/68 [place] [employer] Hypertension Guidelines Peak Exercise Blood Pressure:: 150/62 Outcomes/Goals: Able to verbalize/achieve optimal blood pressure <130/80, Incorporates diet changes & exercise for blood pressure control by DC and Other additional outcomes/goals Interventions/plan: Instruct on optimal blood pressure, hypertension & medications, Instruct on effects of sodium, alcohol, stress, exercise &hypertension and Other additional plan/interventions 30 day Reassessments:: Progressing Reassessment Notes & Comments:: pt encouraged to take her meds Tobacco Cessation Referral Smoking Cessation Referral:: No Individual Education/Counseling:: No Education Schedule Given:: Yes Psychosocial - 30-Day Assess Target Goals Target Goals Outcomes/Goals: See list Psychosocial Outcomes/Goals:: ID's personal stressors & 2 strategies to manage stress by discharge and Other Additional outcome/goals: Psychosocial - 60-Day Assess VIsit Date of Eval: 03/21/23 Session #:: 17 Target Goals Target Goals Outcomes/Goals: See list Psychosocial Outcomes/Goals:: ID's personal stressors & 2 strategies to manage stress by discharge and Other Additional outcome/goals: Intervention/Plan: See List Interventions/Plan:: Assess stressors,coping strategies & signs of derpression on admission, Instruct/assist pt to develop coping & personal stress Mgt strategies, Refer to Behavioral Health if appropriate, Refer to Physician if appropriate, Instruct patient to recognize signs & symptoms of depression, Instruct patient to recog and Other additional plan/intervention 30-day Reassessments: 30 day Reassessments:: Met Psychosocial - 90-Day Assess Target Goals Target Goals Psychosocial - Final Assessmen Target Goals Target Goals Nutrition - 90-Day Assessment Weight Mgt (Other Care) Height: 5 ft 3 in Weight:: 182 lb BMI: 32.2 Nutrition - Final Assessment Weight Mgt (Other Care) Height: 5 ft 3 in Weight:: 182 lb BMI: 32.2
[2023-03-21 08:16] VITALS: BP 124/68; BMI 32.2
== END 2023-04-05 23:59 ==
LOC: CR 13:00
PROVIDERS: PCP Internal Medicine; Referring Provider Internal Medicine Cardiovascular Disease; Visit Provider Internal Medicine Cardiovascular Disease
DX: I25.10 Atherosclerotic heart disease of native coronary artery without angina pectoris (principal); Z95.5 Presence of coronary angioplasty implant and graft
CPT/HCPCS: 93798

== ENCOUNTER 2023-04-27 08:00 | Outpatient (RCR) | payer OTHER, SELFPAY ==
[2023-03-21 08:16] VITALS: BMI 32.2
[2023-04-06 00:37] VITALS: BP 122/78; BP 124/68
--- NOTE | 2023-04-18 11:40 | CR.ITP_ITS ---
Nutrition - Initial Assessment Weight Mgt (Other Care) Height: 5 ft 3 in Weight:: 186 lb BMI: 32.9 Psychosocial - Initial Assess Target Goals Target Goals Patient Health Questionnaire PHQ-9 Screening 90-Day Re-eval Assessment: 1. Little interest or pleasure in doing things: Not at all 2. Feeling down, depressed, or hopeless: Not at all 3. Trouble falling or staying asleep, or sleeping too much: Not at all 4. Feeling tired or having little energy: Nearly every day 5. Poor appetite or overeating: More than half the days 6. Feeling bad about yourself -- or that you are a failure or have let yourself or your family down: Not at all 7. Trouble concentrating on things, such as reading the newspaper or watching television: Not at all 8. Moving or speaking so slowly that other people could have noticed. Or the opposite - being so fidgety or restless that you have been moving around a lot more than usual: Not at all 9. Thoughts that you would be better off , or of hurting yourself in some way: Not at all How difficult have these problems made it for you to do your work, take care of things at home, or get along with other people?: Somewhat difficult Total Score: 5 Self-Efficacy 6-Item Scale 90-Day Re-eval Assessment: We would like to know how confident you are in doing certain activities. Please select your confidence level for: Fatigue Select Number: 4 Physical Discomfort or Pain Select Number: 5 Emotional Distress Select Number: 8 Other Symptoms or Health Problems Select Number: 8 Different Tasks and Activities Select Number: 7 Medication Select Number: 8 Total Score:: 6 Nutrition Survey Nutrition Survey Instructions Scoring Instructions Exercise - 90-day Assessment Visit Date of Eval: 04/18/23 Session #:: 22 Physician Prescribed Exercise Modalities: Treadmill, Airdyne and NuStep Frequency: 3x/week for 12 weeks [36 sessions] Intensity: 60-80% of age predicted maximum heart rate reserve Duration: 30 - 45 minutes Current METSs:: 6.5 Target Heart Rate:: 123-138 Current RPE:: 12-13 Maximum Excercise HR:: 122 Resting Blood Pressure: 160/82 Maximum Exercise Blood Pressure: 170/72 EKG Type: NSR to ST Outcomes & Goals Goals:: Verbalizes understanding of THR, RPE & goal METS by session 6, Documents in home exercise log/reports 30 min aerobic 5 day/wk by DC, Demonstrates accurate pulse taking by DC and Other additional outcome/goals: see below Intervention & Plan Exercise Program Goals: Instruct on personal THR & RPE, Instruct on MET level & personal MET goal, Show patient to take own pulse /validate performance until accurate, Instruct on home exercise and Other additional plan/int 30-day Reassessments 30 day Reassessments:: Met Physical Activity Home Exercise Physical Activity - Home Exercise: Safe Exercise, Warm-up, Self-monitoring, Cool-Down, Home Exercise > 30 min Daily and Sitting Time <3 hours/daily Outcomes & Goals Outcomes/Goals: Demonstrates correct Warm-up/exercise Cool-Down (S3) if = 2.5 METs, Verbalizes symptoms of exercise intolerance by Session 3 (S3), Demonstrate safe equipment use (S3) & follows exercise prescrition (6) and Other: See below Intervention & Plan Plan/Intervention: Instruct warm-up & cool-down if exercising at > 2 METs, Instruct on symptoms of exercise intolerance & actions to take, Instruct & monitor on saf, Assess intial functional capacity & safety risk and Other See below 30-day Reassessments 30 day Reassessments:: Met Nutrition - 30-Day Assessment Weight Mgt (Other Care) Height: 5 ft 3 in Weight:: 186 lb BMI: 32.9 Nutrition - 60-Day Assessment Weight Mgt (Other Care) Height: 5 ft 3 in Weight:: 186 lb BMI: 32.9 Core - 90 Day Assessment Visit Date of Eval: 04/18/23 Session #:: 22 Medication Compliance Preventative Medication(s):: NURYS inhibitor, Beta lorenzo and ARB (Angiotensi Rcap) H/O mental health issues: depression, anxiety, or addiction?: No Doesn?t believe in the benefits of treatment?: No Believes medications are unnecessary or harmful?: No Has a concern about medication side effects?: No Expresses concern over the cost of medications?: No Outcomes/Goals: Verbalizes medications,desired effect & common side effects @ DC, Pt self-reports following medication regimen, Keeps card in wallet w/medications listed by DC and Other additional outcome/goals: Interventions/plans: Instruct on medication effects & side effects, Review medication list w/patient every two weeks, Instruct importance of taking meds as ordered & assist problem solving and Other additional 30-day Reassessments:: Met Tobacco Use Tobacco Use: Non-smoker Hypertension Hypertension Diagnosis:: Hypertension ICD-10 I10 Resting Blood Pressure:: 160/82 Citizen Of [place] Heart Association Hypertension Guidelines Peak Exercise Blood Pressure:: 170/72 Outcomes/Goals: Able to verbalize/achieve optimal blood pressure <130/80, Incorporates diet changes & exercise for blood pressure control by DC and Other additional outcomes/goals Interventions/plan: Instruct on optimal blood pressure, hypertension & medications, Instruct on effects of sodium, alcohol, stress, exercise &hypertension and Other additional plan/interventions 30 day Reassessments:: Progressing Tobacco Cessation Referral Smoking Cessation Referral:: No Individual Education/Counseling:: No Education Schedule Given:: Yes Psychosocial - 30-Day Assess Target Goals Target Goals Psychosocial - 60-Day Assess Target Goals Target Goals Psychosocial - 90-Day Assess VIsit Date of Eval: 04/18/23 Session #:: 22 Target Goals Target Goals Psychosocial - Final Assessmen Target Goals Target Goals Nutrition - 90-Day Assessment Program Goals Nutrition Program Goals Patient has diagnosis of Hyperlipidemia (ICD E78)?: No Visit Date of Eval: 04/18/23 Session #:: 22 Cholesterol/Lipids (Other Core Measures) Determine presence & major risk factors that modify LDL goal: Hypertension or hypertensive medication, Low HDL cholesterol <40 mg/dL*, Family history of premature CHD in Male < 55 years: female <65 yearsFa and Age men > 45 years; women >/= 55 years Outcomes/Goals: Pt IDs own risk factors & lifestyle modifications by Session 10, Verbalizes symptoms of angina & response by session 3., Pt independently manages and Other Additional Outcomes/Goals: Intervention/Plan: Advocate for lipid panel cholesterol medication if applicable, Instruct on personal lipid levels & lipid goals/NCEP guidelines, Instruct on cholesterol and Other additional plan/int 30-day Reassessments:: Met Diabetes (Other Core Measures) Diabetes Type: Diagnosis Type I ICD-10 E10 Insulin dependent injection/pump?: No Non-Insulin Dependent?: Yes Do you monitor your blood sugar at home?: Yes Referral to Diabetic Clinic:: Yes Outcomes/Goals:: Able to state symptoms of, Able to state, Able to state and Other additional Intervention/Plan:: Instruct on, Refer to, Instruct on and Other 30-day Reassessments:: Met Weight Mgt (Other Care) Height: 5 ft 3 in Weight:: 186 lb BMI: 32.9 Diagnosis Overweight/Obesity BMI> 30% ICD-10 E66: Yes Diagnosis High BMI/Morbid Obesity BMI> 35% ICD-10 Z68: No Outcomes/Goals: Pt sets, maintains & shows weight loss goal & trend during rehab and Other additional outcomes/goals Intervention/Plan: Instruct on ideal BMI & set weight loss goal w/patient, Assist pt to ID & incorporate diet changes for weight loss by S9, Refer to Structured Weight Loss program as appropriate, Encourage goal of using 250- 300dcal per session for weight loss and Other additional plan/interventions 30 day Reassessments:: Progressing Healthy Eating Habits Will attend diet classes:: Yes Outcomes/Goals:: Consume diet rich in vegs,fruits,whole grain/high fiber,fish,lean meat, Limit sat/trans fats,cholesterol & added salts & sugars and Other additional outcome/goals: Intervention/Plan:: Assess current eating habits and Other Additional plan/interventions 30-day Reassessments:: Progressing Nutrition - Final Assessment Weight Mgt (Other Care) Height: 5 ft 3 in Weight:: 186 lb BMI: 32.9
[2023-04-18 11:48] VITALS: BP 160/82; BMI 32.9
== END 2023-05-06 23:59 ==
LOC: CR 08:00
PROVIDERS: PCP Internal Medicine; Referring Provider Internal Medicine Cardiovascular Disease; Visit Provider Internal Medicine Cardiovascular Disease
DX: I25.10 Atherosclerotic heart disease of native coronary artery without angina pectoris (principal); Z95.5 Presence of coronary angioplasty implant and graft
CPT/HCPCS: 93798

== ENCOUNTER 2023-04-28 23:45 | Emergency (ER) | payer OTHER, SELFPAY ==
[2023-04-18 11:48] VITALS: BMI 32.9
[2023-04-28 23:45] VITALS: BP 171/90; PULSE 94; RESP 17; O2SAT 98
[2023-04-28 23:46] VITALS: BP 172/92; PULSE 100; RESP 19; TEMP 36.7; O2SAT 98; BMI 32.6
[2023-04-29] VITALS (27 sets, daily range): BP systolic 166–193; BP diastolic 81–96; PULSE 77–94; RESP 12–26; O2SAT 94–99
--- NOTE | 2023-04-29 01:29 | EKG12_ITS ---
Test Reason : PALPITATIONS Blood Pressure : / mmHG Vent. Rate : 094 BPM Atrial Rate : 094 BPM P-R Int : 158 ms QRS Dur : 070 ms QT Int : 340 ms P-R-T Axes : 052 000 046 degrees QTc Int : 425 ms Normal sinus rhythm Minimal voltage criteria for LVH, may be normal variant ( R in aVL ) Borderline ECG Confirmed by LINCOLN KOENIG, JASMYNE ([id number]), telegraph editor NORMA TORRES ([id number]) on 05/08/2023 9:06:44 AM Referred By: DELFIN Confirmed By:JASMYNE STARK MD
[2023-04-29 01:40] LABS: Absolute Neutrophil Count 2.8 X10^3/uL (2.0-7.7); Basophil# 0.01 X10^3/uL; Basophil% 0.2 % (0-1); Eosinophil# 0.01 X10^3/uL; Eosinophils% 0.2 % (0-5); Hematocrit 29.9 % (37-47); Hemoglobin 9.5 g/dL (12.0-15.0); Lymphocyte % 26.2 % (19-41); Mean Corp Hgb Conc 31.8 g/dL (32-36); Mean Corpuscular Hgb 27.7 pg (27.0-32.0); Mean Corpuscular Volume 87.2 fL (81-99); Mean Platelet Vol. 12.4 fl (6.2-12.0); Monocyte# 0.58 X10^3/uL; Monocyte% 12.7 % (0-10); NRBC Flagged by Analyzer 0 % (0-5); Neutrophil # 2.76 X10^3/uL (2.7-7.7); Neutrophil % 60.3 % (47-70); Platelet Count 139 K/mm3 (150-450); RBC Distribution Width CV 14.4 % (11.6-14.6); RBC Distribution Width SD 46.1 fl (35.1-43.9); Red Blood Count 3.43 M/mm3 (4.2-5.4); White Blood Count 4.6 K/mm3 (4.4-11.0)
--- NOTE | 2023-04-29 01:40 | RAD_ITS ---
EXAM: XR CHEST, 2 VIEWS CLINICAL INDICATION: chest pain TECHNIQUE: Frontal and lateral views of the chest. COMPARISON: Single view chest 03/29/2023 FINDINGS: LUNGS AND PLEURAL SPACES: Unremarkable. No consolidation or edema. No pneumothorax. No effusion. HEART: Unremarkable. Cardiac silhouette not enlarged. MEDIASTINUM: Central airways and mediastinal contour are unremarkable. BONES/JOINTS: Unremarkable. No acute fracture. SOFT TISSUES: Unremarkable. RAD/Chest PA and Lateral IMPRESSION: No radiographic evidence of acute cardiopulmonary disease. Electronically Signed: Rey Bautista MD at 2:02 EST ,
[2023-04-29] MEDS: 0.9% Normal Saline (1000mL) 1,000 ML 1000 ML IV (01:47)
[2023-04-29] MEDS: Acetaminophen 325 MG Tablet 650 MG PO (01:48)
[2023-04-29 02:00] LABS: Anion Gap 6 (5-15); BUN 9 mg/dL (7-18); BUN/Creat Ratio 15.6 RATIO (10-20); Chloride 102 mmol/L (98-107); Creatinine, Serum 0.58 mg/dL (0.55-1.02); EST Glomerular Filtration Rate 114 mL/min (>60); Est Glom Filt Rate - Afr Amer 138 mL/min (>60); Estimated Creatinine Clearance 88.53 ml/min; Glucose 189 mg/dL (74-106); Magnesium 1.7 mg/dL (1.6-2.6); Potassium 3.8 mmol/L (3.5-5.1); Sodium Level 133 mmol/L (136-145); Thyroid Stim Hormone (TSH) 0.54 uIU/mL (0.358-3.74); Troponin-I HS (w/2H Reflex) 6 pg/mL (3.0-54.0)
--- NOTE | 2023-04-29 02:03 | EDS_ITS ---
HPI History of Present Illness Chief Complaint: Palpitations Informant: patient Narrative Narrative: Patient is a 57-year-old female with history of Graves' disease, atrial fibrillation entheses proximal (on Eliquis), coronary artery disease and interstitial lung disease as well as recent diagnosis of COVID-19 infection presenting with palpitations. Patient states she started having a sore throat on , 3 days ago, and took a COVID test the following day. It was positive. She is subsequently been started on antiviral, Lagevrio. She states she is continue to have significant nasal congestion and feeling crummy and achy. Denies any difficulty breathing. States that she went to bed tonight and then woke up with her heart racing. It felt like when she goes in atrial fibrillation. She tried to wait it out because usually will stop on its own however it did not so she called 911. Patient was found to be in atrial fibrillation with RVR per EMS. Patient converted to normal sinus rhythm and route. She is currently asymptomatic. No other complaints or concerns at this time. Currently denies any chest pain or difficulty breathing. Notes her blood pressure has been higher lately but she also has been taking Mucinex DM. Notes she normally does not deal with elevated blood pressure readings. Her consumer loan officer is Dr. Manzano. Last had Tylenol around 7 PM [facility] Medical History Abnormal bruising Abnormal exercise tolerance test Abnormal finding on EKG Atrial fibrillation by electrocardiography Cervicalgia Chest pain Coronary artery disease Diabetes Dyslipidemia Dyspnea Essential hypertension Fibromyalgia Graves disease Srini's disease HSV-2 infection Interstitial lung disease Lupus Mixed connective tissue disease Palpitations Raynaud disease SOB (shortness of breath) on exertion Home Medications citalopram 20 mg tablet 20 mg PO DAILY 05/15/20 [History Last Taken Unknown] fluticasone propionate 50 mcg/actuation nasal spray,suspension 2 spray NASAL DAILY 05/15/20 [History Last Taken Unknown] levalbuterol tartrate 45 mcg/actuation aerosol inhaler 15 g IH Q4H PRN PRN Shortness Of Breath 05/15/20 [History Last Taken Unknown] losartan 100 mg tablet 50 mg PO DAILY 05/15/20 [History Last Taken 12/27/22] montelukast 10 mg tablet 10 mg PO DAILY 05/15/20 [History Last Taken Unknown] epinephrine 0.3 mg/0.3 mL injection, auto-injector 0.3 mg IM ONCE 08/04/22 [History Last Taken Unknown] triamcinolone acetonide 0.1 % topical cream 1 applic topical DAILY 08/04/22 [History Last Taken Unknown] lansoprazole 30 mg capsule,delayed release 30 mg PO DAILY 08/08/22 [History Last Taken Unknown] metformin 500 mg tablet,extended release 24 hr 1,000 mg PO BID 08/08/22 [History Last Taken 12/26/22] naproxen 500 mg tablet 500 mg PO BID PRN pain 08/08/22 [History Last Taken Unknown] nitroglycerin 0.4 mg sublingual tablet 0.4 mg sublingual Q5M PRN Cardiac/Chest Pain #15 tabs 12/27/22 [Rx Last Taken Unknown] budesonide 1 mg/2 mL suspension for nebulization (Pulmicort) 0.5 mg inhalation BID PRN sob 01/24/23 [History Last Taken Unknown] pravastatin 20 mg tablet 20 mg PO QHS #30 tabs 02/21/23 [Rx Last Taken Unknown] carvedilol 25 mg tablet 25 mg PO BID 30 days #60 tabs 02/27/23 [Rx Last Taken Unknown] diltiazem HCl 180 mg capsule,extended release 24 hr (Cardizem CD) 180 mg PO DAILY #30 caps 03/21/23 [Rx Last Taken Unknown] clopidogrel 75 mg tablet (Plavix) 75 mg PO DAILY #90 tabs 03/26/23 [Rx Last Taken Unknown] apixaban 5 mg tablet (Eliquis) 5 mg PO BID #60 tabs 04/02/23 [Rx Last Taken Unknown] benzonatate 200 mg capsule 200 mg PO TID PRN cough #20 caps 04/29/23 [Rx Last Taken Unknown] molnupiravir 200 mg capsule (EUA) (Lagevrio) 200 mg PO Q6H 04/29/23 [History Last Taken Unknown] Allergy/AdvReac Type Severity Reaction Status Date / Time cantaloupe Allergy Angioedema Verified 04/28/23 23:46 Sulfa (Sulfonamide Allergy Hives Verified 04/28/23 23:46 Antibiotics) levofloxacin [From Levaquin] AdvReac Intermediate Hives Verified 04/28/23 23:46 Family History Mother CAD (coronary artery disease) stents Hypertension Vertigo Pacemaker Enlarged heart Father Cancer prostate Sister Sjogrens syndrome Grandmother Heart disease Grandfather Heart disease Uncle Heart disease Enlarged heart Surgical History Hx of bilateral cataract extraction Hx of dilation and curettage Hx of hysterectomy Hx of sinus surgery Hx of tonsillectomy Stented coronary artery (~12/27/22) Social History Smoking Status: Never smoker alcohol intake: current alcohol intake frequency: holidays/special occasions on ly substance use type: does not use caffeine: Yes Type: coffee Number of servings: 1 ROS ROS ED Constitutional Constitutional ED: Denies chills or fever(s) Eyes Eyes: Denies change in vision ENT ENT ED: Reports rhinorrhea and sore throat; Denies ear pain Cardiovascular Cardiovascular: Reports palpitations and racing heartbeat; Denies chest pain Respiratory/Chest Respiratory/Chest: Denies cough or dyspnea Gastrointestinal Gastrointestinal: Denies abdominal pain, nausea or vomiting Genitourinary Genitourinary ED: Denies dysuria or urinary frequency Musculoskeletal Musculoskeletal: Reports myalgias; Denies arthralgias Integumentary Denies rash Neurologic Neurologic: Denies paresthesias or weakness Psychiatric Psychiatric: Denies anxiety Hematologic/Lymphatic Hematologic/Lymphatic: Reports easy bleeding and easy bruising EXAM Physical Exam Const Vital Signs: 04/28/23 23:46 04/28/23 23:45 04/29/23 00:45 Temperature 98.0 F Temperature Source Temporal Pulse Rate 100 94 91 Respiratory Rate 19 H 17 24 H Blood Pressure 172/92 H 171/90 H 168/89 H Blood Pressure Mean 118 117 115 Pulse Ox 98 98 96 Oxygen Delivery Method Room Air Room Air Room Air 04/29/23 01:00 04/29/23 01:29 04/29/23 02:00 Temperature Temperature Source Pulse Rate 87 85 Respiratory Rate 12 22 H Blood Pressure 174/84 H 176/87 H Blood Pressure Mean 114 116 Pulse Ox 98 99 Oxygen Delivery Method Room Air Room Air Room Air 04/29/23 03:00 04/29/23 00:38 04/29/23 00:40 Temperature Temperature Source Pulse Rate 88 94 94 Respiratory Rate 21 H 23 H 25 H Blood Pressure 176/82 H Blood Pressure Mean 113 Pulse Ox 96 96 96 Oxygen Delivery Method Room Air 04/29/23 00:45 04/29/23 00:50 04/29/23 01:00 Temperature Temperature Source Pulse Rate 88 90 Respiratory Rate 24 H 24 H Blood Pressure 174/89 H 166/89 H Blood Pressure Mean 112 112 Pulse Ox 96 95 Oxygen Delivery Method 04/29/23 01:10 04/29/23 01:15 04/29/23 01:20 Temperature Temperature Source Pulse Rate 84 89 87 Respiratory Rate 24 H 23 H 25 H Blood Pressure 182/93 H Blood Pressure Mean 119 Pulse Ox 96 96 97 Oxygen Delivery Method 04/29/23 01:45 04/29/23 01:47 04/29/23 01:50 Temperature Temperature Source Pulse Rate 85 85 Respiratory Rate 15 16 Blood Pressure 182/86 H 177/90 H Blood Pressure Mean 115 116 Pulse Ox 99 97 Oxygen Delivery Method 04/29/23 02:00 04/29/23 02:10 04/29/23 02:15 Temperature Temperature Source Pulse Rate 84 81 81 Respiratory Rate 20 H 25 H 24 H Blood Pressure 176/87 H 183/96 H Blood Pressure Mean 114 118 Pulse Ox 99 98 97 Oxygen Delivery Method 04/29/23 02:20 04/29/23 02:30 04/29/23 02:40 Temperature Temperature Source Pulse Rate 82 81 81 Respiratory Rate 26 H 24 H 24 H Blood Pressure 182/90 H Blood Pressure Mean 115 Pulse Ox 98 96 96 Oxygen Delivery Method 04/29/23 02:45 04/29/23 02:50 04/29/23 03:00 Temperature Temperature Source Pulse Rate 83 80 83 Respiratory Rate 23 H 22 H 21 H Blood Pressure 175/87 H 176/82 H Blood Pressure Mean 112 109 Pulse Ox 96 95 94 Oxygen Delivery Method 04/29/23 03:10 04/29/23 03:15 04/29/23 03:20 Temperature Temperature Source Pulse Rate 83 84 77 Respiratory Rate 22 H 23 H 22 H Blood Pressure 180/90 H Blood Pressure Mean 116 Pulse Ox 95 95 95 Oxygen Delivery Method Room Air 04/29/23 04:25 04/29/23 04:59 04/29/23 05:20 Temperature Temperature Source Pulse Rate 83 88 87 Respiratory Rate 16 20 H 18 Blood Pressure 193/93 H 172/88 H 176/81 H Blood Pressure Mean 126 116 112 Pulse Ox 97 95 97 Oxygen Delivery Method 04/29/23 05:42 Temperature Temperature Source Pulse Rate 77 Respiratory Rate 18 Blood Pressure 168/84 H Blood Pressure Mean 112 Pulse Ox 96 Oxygen Delivery Method Positive well nourished and well developed General Appearance ED: well developed and NAD HEENT Reports TM's clear and moist mucous membranes HEENT Narrative: Congestion present Tympanic Membrane ED: Yes TM's clear Eyes PERRL and EOMs intact bilaterally Neck supple and no JVD Chest Wall inspection of chest normal and palpation of chest normal Resp normal respiratory effort Resp Narrative: Mild crackles at the left base present, no increased work of breathing or wheezing appreciated Cardio regular rate, regular rhythm and no murmurs GI normal to inspection, nondistended, normoactive bowel sounds and non-tender Extremity normal to inspection General Extremety ED: Negative for edema General Extremity: Negative for edema Neuro oriented x3 Sensorium / Orientation: alert Motor Exam: Negative for general weakness Psych mental status grossly normal Skin no rashes or lesions noted and no wounds MDM MDM MDM Narrative Medical decision making narrative: Patient evaluated for palpitations. Patient was in A-fib RVR which she has a history of per EMS but is converted to normal sinus rhythm in the emergency room. Relatively asymptomatic at this time. Will obtain cardiac workup including TSH and magnesium as well as chest x-ray looking for signs of secondary pneumonia associated with her current COVID-19 infection. Anticipate if workup is negative and patient's vital signs remained stable can be discharged home. Workup largely normal. Patient is mildly hypertensive in the ER. Chest x-ray viewed by myself as well as radiology does not show any acute process. Patient remains hypertensive and is given a dose of IV labetalol in the ER. Her lab work does show mild anemia with a hemoglobin 9.5 which is chronic and stable. Very mild hyponatremia the sodium 133. She is given IV fluids in the ER. No TANO. High since he troponin stable at 6 and 8. TSH is normal so suspicion for acute thyroid abnormality causing her presentation. Patient is anticoagulant Eliquis so have a low suspicion for pulmonary emboli. Patient has no further arrhythmia in the ER. Plan to have the patient discontinue decongestants to help lower her blood pressure. Plan to start her on Tessalon Perles to help with her cough. Patient is agreeable. She is given return precautions. Discharged home in stable condition. Blood pressure improved with labetalol. Will be discharged home. Will follow- up with her medical doctor for further blood pressure management. Take blood pressure medicine when she gets home. History & Record Review Discussion w/independent historian: EMS personnel (Meds records-patient presented with A-fib RVR and converted to normal sinus rhythm) Lab Data Attestation: I reviewed the patient's lab results. Labs: Laboratory Results - last 24 hr 04/29/23 04/29/23 00:00 02:00 WBC 4.6 RBC 3.43 L Hgb 9.5 L Hct 29.9 L MCV 87.2 MCH 27.7 MCHC 31.8 L RDW Std Deviation 46.1 H RDW Coeff of Ted 14.4 Plt Count 139 L MPV 12.4 H Immature Gran % (Auto) 0.400 Neut % (Auto) 60.3 Lymph % (Auto) 26.2 Mineral % (Auto) 12.7 H Eos % (Auto) 0.2 Baso % (Auto) 0.2 Absolute Neuts (auto) 2.8 Absolute Lymphs (auto) 1.20 Nucleated RBC % 0 Sodium 133 L Potassium 3.8 Chloride 102 Carbon Dioxide 25.0 Anion Gap 6 BUN 9 Creatinine 0.58 Estim Creat Clear Calc 88.53 Est GFR (MDRD) Af Amer 138 Est GFR (MDRD) Non-Af 114 BUN/Creatinine Ratio 15.6 Glucose 189 H Calcium 9.0 Magnesium 1.7 Troponin I High Sens 6 8 TSH 0.54 Radiography Diagnostic Testing: Clinical Impression(s) from Imaging Studies Chest X-Ray 04/29/23 01:40 IMPRESSION: No radiographic evidence of acute cardiopulmonary disease. Electronically Signed: Rey Bautista MD at 2:02 EST , Rhythm Strip Rhythm Strip: Sinus Rhythm Rate: 94 Ectopy: None EKG Initial EKG: Attestation: I personally reviewed and interpreted this EKG as follows: Interpretation: Sinus Rhythm Comments: Sinus rhythm at a rate of 94 bpm Normal axis Minimal voltage criteria for LVH Normal ST segments Compared to prior EKG on 03/29/2023 patient is no longer in atrial fibrillation Discharge Plan Triage Chief Complaint: Palpitations ED Provider: Lakshmi Resendiz Dx/Rx/DC Orders Clinical Impression: Essential hypertension, Paroxysmal atrial fibrillation, Cough in adult Instructions: Coronavirus Disease 2019 (COVID-19): Caring for Yourself or Others, ED AFIB, ED Hypertension, Established Prescriptions: New benzonatate 200 mg capsule 200 mg PO TID PRN (Reason: cough) Qty: 20 0RF No Action epinephrine 0.3 mg/0.3 mL auto-injector 0.3 mg IM ONCE Rx Instructions: as a single dose; may repeat once triamcinolone acetonide 0.1 % cream 1 applic topical DAILY naproxen 500 mg tablet 500 mg PO BID PRN (Reason: pain) budesonide [Pulmicort] 1 mg/2 mL suspension for nebulization 0.5 mg inhalation BID PRN (Reason: sob) pravastatin 20 mg tablet 20 mg PO QHS Qty: 30 4RF diltiazem HCl [Cardizem CD] 180 mg capsule,extended release 24hr 180 mg PO DAILY Qty: 30 6RF fluticasone propionate 1 SPRAY spray,suspension 2 spray NASAL DAILY citalopram 20 MG tablet 20 mg PO DAILY montelukast 10 MG tablet 10 mg PO DAILY losartan 100 MG tablet 50 mg PO DAILY levalbuterol tartrate 15 GM HFA aerosol inhaler 15 g IH Q4H PRN PRN (Reason: Shortness Of Breath) lansoprazole 30 mg capsule,delayed release(DR/EC) 30 mg PO DAILY metformin 500 mg tablet extended release 24 hr 1,000 mg PO BID carvedilol 25 mg tablet 25 mg PO BID 30 Days Qty: 60 0RF Rx Instructions: must administer with a meal/food. nitroglycerin 0.4 mg Tablet, Sublingual 0.4 mg sublingual Q5M PRN (Reason: Cardiac/Chest Pain) Qty: 15 6RF Lagevrio (EUA) 200 mg capsule 200 mg PO Q6H Patient Comments: for 5 days starting 04/28/23 clopidogrel [Plavix] 75 mg tablet 75 mg PO DAILY Qty: 90 3RF Eliquis 5 mg tablet 5 mg PO BID Qty: 60 11RF Primary Care Provider: Opal Bernal Referrals: Opal Bernal MD [Primary Care Provider] - Activity Restrictions/Additional Instructions: Please continue taking all your medications as prescribed. If you do not have issues with your blood pressure being more elevated than normal please follow-up with your primary care doctor. If you develop chest pain further concerns please return to the emergency room. Your workup today was largely normal. I would recommend avoiding [id number] decongestants as these can raise your blood pressure. I would recommend continuing regular Mucinex to help thin out secretions in your chest and sinuses. Disposition Disposition: Home, Self Care
[2023-04-29 03:33] LABS: Reflex Troponin-HS? (from REC) Y
[2023-04-29 03:35] LABS: Troponin-I HS 8 pg/mL (3.0-54.0)
[2023-04-29] MEDS: Labetalol (Prefilled) 20 MG/4 ML 10 MG IV (04:23)
== END 2023-04-29 05:49 | disposition home or self-care (01) ==
PROVIDERS: Emergency Provider Emergency Medicine; PCP Internal Medicine; Visit Provider Emergency Medicine
DX: I10 Essential (primary) hypertension (principal); I48.0 Paroxysmal atrial fibrillation; E11.9 Type 2 diabetes mellitus without complications; R05.9 Cough, unspecified; R00.2 Palpitations; E78.5 Hyperlipidemia, unspecified; I25.10 Atherosclerotic heart disease of native coronary artery without angina pectoris; D64.9 Anemia, unspecified; Z79.01 Long term (current) use of anticoagulants
CPT/HCPCS: 71046; 80048; 83735; 84443; 84484; 85025; 93005; 96360; 99284; J7030; A4216

== ENCOUNTER → 2023-06-13 | Outpatient (CLI) | payer OTHER, SELFPAY ==
[2023-04-18 11:48] VITALS: BMI 32.9
--- OUTSIDE RECORDS SUMMARY | 2023-06-13 07:56 | XMS RPT_ITS | CCD ---
Author Name Unknown Address [address] [facility] [address] [address] [place] [address] Organization [facility] Care Team Providers Care Leisure Studies Professor Name Role Phone Unavailable Primary Care Provider Unavailabl e Gabe KOENIG, Josr Primary Care Provider [phone] Gabe KOENIG, Josr Primary Care Provider Gabe KOENIG, Josr Primary Care Provider [phone] Gabe KOENIG, Josr Primary Care Provider [phone] MARYLU CHAUDHARY DO Attending Unavailable MARYLU CHAUDHARY DO Primary Care Unavailable MARYLU CHAUDHARY DO Admitting Unavailable YA CLEVELAND Attending Unavailable SELF, SELF Referring Unavailable OLDER, LEDA Attending Unavailable GANTA, JOSR Primary Care Unavailable OLDER, LEDA Attending Unavailable GANTA, JOSR Primary Care Unavailable OLDER, LEDA Referring Unavailable GANTA, JOSR Primary Care Unavailable OLDER, LEDA Attending Unavailable GANTA, JOSR Primary Care Unavailable GANTA, JOSR Referring Unavailable OLDER, LEDA Attending Unavailable GANTA, JOSR Primary Care Unavailable GANTA, JOSR Primary Care Unavailable GANTA, JOSR Primary Care Unavailable GANTA, JOSR Referring Unavailable GANTA, JOSR Attending Unavailable OLDER, LEDA Referring Unavailable GANTA, JOSR Primary Care Unavailable OLDER, LEDA Referring Unavailable GANTA, JOSR Primary Care Unavailable OLDER, LEDA Attending Unavailable OLDER, LEDA Referring Unavailable GANTA, JOSR Primary Care Unavailable ALEXANDRE CAMPA Attending Unavailable GANTA, JOSR Primary Care Unavailable OLDER, LEDA Attending Unavailable GANTA, JOSR Primary Care Unavailable GANTA, JOSR Primary Care Unavailable LUZ NIEVES Attending Unavailable GANTA, JOSR Primary Care Unavailable OLDER, LEDA Attending Unavailable GANTA, JOSR Primary Care Unavailable GANTA, JOSR Primary Care Unavailable LUZ NIEVES Attending Unavailable GANTA, JOSR Primary Care Unavailable GANTA, JOSR Primary Care Unavailable OLDER, LEDA Attending Unavailable GANTA, JOSR Primary Care Unavailable GANTA, JOSR Referring Unavailable OLDER, LEDA Attending Unavailable GANTA, JOSR Primary Care Unavailable GANTA, JOSR Primary Care Unavailable OLDER, LEDA Attending Unavailable GANTA, JOSR Primary Care Unavailable GANTA, JOSR Referring Unavailable OLDER, LEDA Referring Unavailable GANTA, JOSR Primary Care Unavailable WISWELL, CHHAYA Attending Unavailable GANTA, JOSR Primary Care Unavailable GANTA, JOSR Primary Care Unavailable GANTA, JOSR Primary Care Unavailable GANTA, JOSR Referring Unavailable GANTA, JOSR Primary Care Unavailable GANTA, JOSR Primary Care Unavailable OLDER, LEDA Attending Unavailable GANTA, JOSR Primary Care Unavailable Allergies Allergy Classification Reported Allergen(s) Allergy Type Date of Onset Reaction(s) Facility (20 sources) cantaloupe allergenic extract; Translations: [CANTALOUPE] Drug Allergy 01-22-2019 Angioedema [facility] Work Phone: (20 sources) levoFLOXacin; Translations: [LEVOFLOXACIN] Drug Allergy 04-12-2021 Rash [facility] (20 sources) Sulfonamides (Antibiotic); Translations: [SULFA (SULFONAMIDE ANTIBIOTICS)] Drug Allergy 01-22-2019 Hives [facility] (1 source) levoFLOXacin Drug Allergy [facility] (1 source) Sulfonamides (Antibiotic) Drug allergy (disorder) [facility] Medications Current Medications Medication Drug Class(es) Dates Sig (Normalized) Sig (Original) amoxicillin 875 mg / clavulanate 125 mg oral tablet (12 sources) Penicillin-class Antibacterial Start: 01-31-2023 End: 02-05-2023 take 1 tablet by mouth twice daily amoxicillin-clav ulanic acid (AUGMENTIN) 875-125 mg per tablet Indications: URI, acute Take 1 tablet by mouth twice daily for 5 days. 10 tablet 0 01/31/2023 02/05/2023 Active Completed/Discontinued Medications Medication Drug Class(es) Dates Sig (Normalized) Sig (Original) amLODIPine 5 mg oral tablet (20 sources) Dihydropyridine Calcium Channel Oriana Start: 08-17-2022 End: 10-10-2022 take 1 tablet by mouth once daily amLODIPine (NORVASC) 5 mg tablet take 1 tablet by mouth once daily 30 tablet 1 10/10/2022 Active Problems Active Problems Problem Classification Problem Date Documented Date Episodic/Chronic Cardiac dysrhythmias (6 sources) Supraventricular tachycardia; Translations: [Supraventricular tachycardia] Onset: 02-28-2023 Chronic Diabetes mellitus without complication (20 sources) Diabetes mellitus; Translations: [Type 2 diabetes mellitus without complications] Onset: 01-22-2019 01-22-2019 Chronic Disorders of lipid metabolism (1 source) Mixed hyperlipidemia; Translations: [Mixed hyperlipidemia] Chronic Essential hypertension (20 sources) Hypertensive disorder; Translations: [Essential (primary) hypertension] Onset: 08-17-2022 01-22-2019 Chronic Genitourinary symptoms and ill-defined conditions (4 sources) Increased frequency of urination; Translations: [Frequency of micturition] Episodic Headache; including migraine (2 sources) Headache; Translations: [Headaches] Episodic Immunizations and screening for infectious disease (3 sources) Contact with or exposure to other viral diseases; Translations: [Exposure to COVID-19 virus] Episodic Malaise and fatigue (1 source) Fatigue; Translations: [Other fatigue] Episodic Mycoses (2 sources) Candidiasis of vagina; Translations: [Vaginal candidiasis] Episodic Nausea and vomiting (1 source) Nausea; Translations: [Nausea] Episodic Nonmalignant breast conditions (2 sources) Pain of breast; Translations: [Mastodynia] Episodic Other circulatory disease (20 sources) Raynaud's disease; Translations: [Raynaud's syndrome without gangrene] 01-07-2020 Chronic Other circulatory disease (1 source) Respiratory symptom; Translations: [Other specified symptoms and signs involving the circulatory and respiratory systems] Episodic Other connective tissue disease (20 sources) Fibromyalgia; Translations: [Fibromyalgia] 01-07-2020 Episodic Other connective tissue disease (1 source) Swelling of lower limb; Translations: [Other specified soft tissue disorders] 12-03-2022 Episodic Other female genital disorders (1 source) Pruritus of vagina; Translations: [Other specified noninflammatory disorders of vagina] Episodic Other inflammatory condition of skin (1 source) Pruritus of vulva; Translations: [Pruritus vulvae] Episodic Other liver diseases (1 source) Steatosis of liver; Translations: [Fatty (change of) liver, not elsewhere classified] Chronic Other liver diseases (4 sources) Hepatic fibrosis; Translations: [Liver fibrosis] Chronic Other liver diseases (1 source) Fatty (change of) liver, not elsewhere classified; Translations: [Fatty metamorphosis of liver] Onset: 09-14-2022 Chronic Other liver diseases (2 sources) Elevated liver enzymes level; Translations: [Abnormal levels of other serum enzymes] Episodic Other lower respiratory disease (20 sources) Interstitial lung disease; Translations: [Interstitial pulmonary disease, unspecified] 01-07-2020 Chronic Other lower respiratory disease (1 source) Cough; Translations: [Acute cough] Episodic Other lower respiratory disease (1 source) Dyspnea; Translations: [Shortness of breath] Episodic Other nutritional; endocrine; and metabolic disorders (2 sources) H/O: thyroid disorder; Translations: [Personal history of other endocrine, nutritional and metabolic disease] Episodic Other upper respiratory infections (3 sources) Bacterial sinusitis; Translations: [Chronic sinusitis, unspecified] Onset: 03-12-2023 12-09-2022 Chronic Residual codes; unclassified (1 source) Dependent edema; Translations: [Edema, unspecified] 12-20-2022 Episodic Residual codes; unclassified (1 source) Procedure not done; Translations: [Procedure and treatment not carried out, unspecified reason] 12-31-2022 Episodic Systemic lupus erythematosus and connective tissue disorders (20 sources) Lupus erythematosus; Translations: [Systemic lupus erythematosus, unspecified] 01-22-2019 Chronic Thyroid disorders (20 sources) Graves' disease; Translations: [Thyrotoxicosis with diffuse goiter without thyrotoxic crisis or storm] Onset: 01-22-2019 01-22-2019 Chronic Unclassified (1 source) Vulvar candidiasis; Translations: [Vulvar candidiasis] Onset: 10-12-2022 Unclassified (1 source) Liver fibrosis; Translations: [Liver fibrosis] Onset: 09-14-2022 Unclassified (1 source) Vaginal candidiasis; Translations: [Vaginal candidiasis] Onset: 09-14-2022 Unclassified (1 source) Headaches; Translations: [Headaches] Onset: 06-15-2022 Viral infection (2 sources) Viral disease; Translations: [Viral infection, unspecified] Episodic Past or Other Problems Problem Classification Problem Date Documented Date Episodic/Chronic Abdominal pain (4 sources) Right upper quadrant pain; Translations: [Right upper quadrant pain] Onset: 12-14-2022 Episodic Cardiac dysrhythmias (5 sources) Palpitations; Translations: [Palpitations] Onset: 06-15-2022 Episodic Nonspecific chest pain (7 sources) Xiphodynia; Translations: [Other chest pain] Onset: 06-15-2022 Episodic Other female genital disorders (1 source) Other specified noninflammatory disorders of vagina; Translations: [Vaginal itching] Onset: 10-12-2022 Episodic Other inflammatory condition of skin (1 source) Pruritus vulvae; Translations: [Vulvar itching] Onset: 10-12-2022 Episodic Other injuries and conditions due to external causes (1 source) Other injury of unspecified body region, initial encounter; Translations: [Bruising] Onset: 02-07-2023 Episodic Other nutritional; endocrine; and metabolic disorders (1 source) Personal history of other endocrine, nutritional and metabolic disease; Translations: [History of Srini thyroiditis] Onset: 08-17-2022 Episodic Other screening for suspected conditions (not mental disorders or infectious disease) (6 sources) Mammography abnormal; Translations: [Other abnormal and inconclusive findings on diagnostic imaging of breast] Onset: 11-09-2022 Episodic Other skin disorders (1 source) Rash and other nonspecific skin eruption; Translations: [Rash] Onset: 02-07-2023 Episodic Other upper respiratory infections (9 sources) Sore throat symptom; Translations: [Acute pharyngitis, unspecified] Onset: 08-17-2022 Episodic Residual codes; unclassified (1 source) Edema, unspecified; Translations: [Dependent edema] Onset: 12-20-2022 Episodic Skin and subcutaneous tissue infections (3 sources) Cellulitis of right lower limb; Translations: [Cellulitis of right lower limb] Onset: 12-14-2022 12-15-2022 Episodic Spondylosis; intervertebral disc disorders; other back problems (20 sources) Neck pain; Translations: [Cervicalgia] Onset: 04-07-2021 04-07-2021 Episodic Results Test Name Value Interpretation Reference Range Facil ity Vital Signs Date Time Vital Sign Value Performing Clinician Robby joseph 04-16-2023 15:33-0500 Body temperature 97.9 [degF] Rubi Araya PA-C Work Phone: [facility] 12-11-2023 15:33-0500 Body weight 84.46 kg Rubi Athy PA-C Work Phone: [facility] 04-16-2023 15:33-0500 Diastolic blood pressure 83 mm[Hg] Rubi Athy PA-C Work Phone: [facility] 04-16-2023 15:33-0500 Heart rate 77 /min Rubi Athy PA-C Work Phone: [facility] 04-16-2023 15:33-0500 Respiratory rate 18 /min Rubi Athy PA-C Work Phone: [facility] 04-16-2023 15:33-0500 SaO2% (BldA) [Mass fraction] 98 % Rubi Athy PA-C Work Phone: [facility] 04-16-2023 15:33-0500 Systolic blood pressure 151 mm[Hg] Rubi Athy PA-C Work Phone: [facility] 03-28-2023 15:50-0500 Diastolic blood pressure 70 mm[Hg] Leda Older [employer]CHO[employer] ATHLET[employer] DIRECTOR[employer]ACH Work Phone: [facility] 03-28-2023 15:50-0500 Systolic blood pressure 130 mm[Hg] Leda Older SCHO[employer] ATHLETIC DIRECTOR.[employer] SW[employer] COACH Work Phone: [facility] 03-28-2023 15:35-0500 Body weight 84.82 kg Leda Older SCHO[employer] ATHLETIC DIRECTOR.[employer] SW[employer] COACH Work Phone: [facility] 03-28-2023 15:35-0500 Heart rate 74 /min Leda Older SCHO[employer] ATHLETIC DIRECTOR.[employer]IR[employer] SWIMMING COACH Work Phone: [facility] 03-28-2023 15:35-0500 Respiratory rate 16 /min Leda Older SCHO[employer] ATHLETIC DIRECTOR.[employer]IR[employer] SW[employer] COACH Work Phone: [facility] 03-28-2023 15:35-0500 SaO2% (BldA) [Mass fraction] 99 % Leda Older [employer]CHO[employer] ATHLETIC DIRECTOR.[employer]IR[employer] SW[employer]MING COACH Work Phone: [facility] 03-12-2023 13:06-0500 Body height 161.3 cm Alexandre Denbow PA-C Work Phone: [facility] 03-12-2023 13:06-0500 Body temperature 98.01 [degF] Alexandre Denbow PA-C Work Phone: [facility] 03-12-2023 13:06-0500 Body weight 83.01 kg Alexandre Denbow PA-C Work Phone: [facility] 03-12-2023 13:06-0500 Diastolic blood pressure 70 mm[Hg] Alexandre Denbow PA-C Work Phone: [facility] 03-12-2023 13:06-0500 Heart rate 78 /min Alexandre Denbow PA-C Work Phone: [facility] 03-12-2023 13:06-0500 Respiratory rate 12 /min Alexandre Denbow PA-C Work Phone: [facility] 03-12-2023 13:06-0500 SaO2% (BldA) [Mass fraction] 99 % Alexandre Denbow PA-C Work Phone: [facility] 03-12-2023 13:06-0500 Systolic blood pressure 138 mm[Hg] Alexandre Denbow PA-C Work Phone: [facility] 02-28-2023 10:44-0400 Body weight 83.92 kg Leda Older SCHO[employer] ATHLETIC DIRECTOR[employer] SW[employer] COACH Work Phone: [facility] 02-28-2023 10:44-0400 Diastolic blood pressure 82 mm[Hg] Leda Older SCHO[employer] ATHLETIC DIRECTOR.[employer] SW[employer] COACH Work Phone: [facility] 02-28-2023 10:44-0400 Heart rate 80 /min Leda Older [employer]CHO[employer] ATHLETIC DIRECTOR.[employer] SW[employer] COACH Work Phone: [facility] 02-28-2023 10:44-0400 Respiratory rate 16 /min Leda Older SCHO[employer] ATHLETIC DIRECTOR.[employer]IR[employer] SWIMM[employer] COACH Work Phone: [facility] 02-28-2023 10:44-0400 SaO2% (BldA) [Mass fraction] 99 % Leda Older [employer] ATHLETIC DIRECTOR.[employer]IR[employer] SW[employer] COACH Work Phone: [facility] 02-28-2023 10:44-0400 Systolic blood pressure 142 mm[Hg] Leda Older SCHO[employer] ATHLETIC DIRECTOR.[employer] SWIMM[employer] COACH Work Phone: [facility] 12-20-2022 17:26-0400 Body temperature 98.71 [degF] Leda Older [employer]CHO[employer] ATHLETIC DIRECTOR.[employer] SW[employer]MING COACH Work Phone: [facility] 12-20-2022 17:26-0400 Diastolic blood pressure 74 mm[Hg] Leda Older SCHO[employer] ATHLETIC DIRECTOR.[employer]IR[employer] SWIMMING COACH Work Phone: [facility] 12-20-2022 17:26-0400 Heart rate 84 /min Leda Older [employer]CHO[employer] ATHLETIC DIRECTOR.[employer]IR[employer] SWIMMING COACH Work Phone: [facility] 12-20-2022 17:26-0400 Respiratory rate 16 /min Leda Older SCHO[employer] ATHLETIC DIRECTOR.GIR[employer] SWIMMING COACH Work Phone: [facility] 12-20-2022 17:26-0400 SaO2% (BldA) [Mass fraction] 98 % Leda Older [employer]CHO[employer] ATHLETIC DIRECTOR.GIR[employer] SWIMMING COACH Work Phone: [facility] 12-20-2022 17:26-0400 Systolic blood pressure 132 mm[Hg] Leda Older SCHO[employer] ATHLETIC DIRECTOR.GIR[employer] SWIMMING COACH Work Phone: [facility] 12-14-2022 10:36-0400 Body temperature 98.2 [degF] Leda Older SCHO[employer] ATHLETIC DIRECTOR.GIR[employer] SWIMMING COACH Work Phone: [facility] 12-14-2022 10:36-0400 Body weight 84.82 kg Leda Older SCHO[employer] ATHLETIC DIRECTOR.[employer] SWIMMING COACH Work Phone: [facility] 12-14-2022 10:36-0400 Diastolic blood pressure 82 mm[Hg] Leda Older SCHO[employer] ATHLETIC DIRECTOR.[employer]IR[employer] SWIMMING COACH Work Phone: [facility] 12-14-2022 10:36-0400 Heart rate 72 /min Leda Older SCHO[employer] ATHLETIC DIRECTOR.GIR[employer] SWIMMING COACH Work Phone: [facility] 12-14-2022 10:36-0400 Respiratory rate 16 /min Leda Older SCHO[employer] ATHLETIC DIRECTOR.[employer]IR[employer] SWIMMING COACH Work Phone: [facility] 12-14-2022 10:36-0400 SaO2% (BldA) [Mass fraction] 99 % Leda Older [employer]CHO[employer] ATHLETIC DIRECTOR.[employer]IR[employer] SW[employer]MING COACH Work Phone: [facility] 12-14-2022 10:36-0400 Systolic blood pressure 144 mm[Hg] Leda Older SCHO[employer] ATHLETIC DIRECTOR.[employer]IR[employer] SWIMMING COACH Work Phone: [facility] 12-09-2022 14:55-0400 Body temperature 99 [degF] [facility] [employer]CHO[employer] ATHLETIC DIRECTOR.GIRLS SWIMMING COACH Work Phone: [facility] 12-09-2022 14:55-0400 Body weight 86.64 kg [facility] [employer]CHO[employer] ATHLETIC DIRECTOR.GIR[employer] SW[employer]MING COACH Work Phone: [facility] 12-09-2022 14:55-0400 Diastolic blood pressure 80 mm[Hg] [facility] [employer]CHOOL ATHLETIC DIRECTOR.GIR[employer] SWIMMING COACH Work Phone: [facility] 12-09-2022 14:55-0400 Heart rate 82 /min [facility] [employer]CHO[employer] ATHLETIC DIRECTOR.GIR[employer] SWIMMING COACH Work Phone: [facility] 12-09-2022 14:55-0400 Respiratory rate 16 /min [facility] [employer]CHO[employer] ATHLETIC DIRECTOR.GIR[employer] SWIMMING COACH Work Phone: [facility] 12-09-2022 14:55-0400 SaO2% (BldA) [Mass fraction] 98 % [facility] [employer] ATHLETIC DIRECTOR.GIR[employer] SWIMMING COACH Work Phone: [facility] 12-09-2022 14:55-0400 Systolic blood pressure 134 mm[Hg] [facility] [employer]CHOOL ATHLETIC DIRECTOR.GIR[employer] SWIMMING COACH Work Phone: [facility] 12-03-2022 10:50-0400 Body temperature 98.4 [degF] Rubi Athy PA-C Work Phone: [facility] 12-03-2022 10:50-0400 Body weight 85.28 kg Rubi Athy PA-C Work Phone: [facility] 12-03-2022 10:50-0400 Diastolic blood pressure 84 mm[Hg] Rubi Athy PA-C Work Phone: [facility] 12-03-2022 10:50-0400 Heart rate 79 /min Rubi Athy PA-C Work Phone: [facility] 12-03-2022 10:50-0400 Respiratory rate 18 /min Rubi Athy PA-C Work Phone: [facility] 12-03-2022 10:50-0400 SaO2% (BldA) [Mass fraction] 98 % Rubi Athy PA-C Work Phone: [facility] 12-03-2022 10:50-0400 Systolic blood pressure 142 mm[Hg] Rubi Athy PA-C Work Phone: [facility] 10-12-2022 10:09-0400 Body height 161.3 cm Chhaya Crowe MD Work Phone: [facility] 10-12-2022 10:09-0400 Body weight 87.77 kg Chhaya Crowe MD Work Phone: [facility] 10-12-2022 10:09-0400 Diastolic blood pressure 72 mm[Hg] Chhaya Crowe MD Work Phone: [facility] 10-12-2022 10:09-0400 Systolic blood pressure 128 mm[Hg] Chhaya Crowe MD Work Phone: [facility] 09-14-2022 09:22-0400 Diastolic blood pressure 82 mm[Hg] Leda Older SCHO[employer] ATHLETIC DIRECTOR.[employer] SW[employer] COACH Work Phone: [facility] 09-14-2022 09:22-0400 Systolic blood pressure 138 mm[Hg] Leda Older SCHO[employer] ATHLETIC DIRECTOR.[employer] SW[employer] COACH Work Phone: [facility] 09-14-2022 08:55-0400 Body weight 86.64 kg Leda Older SCHO[employer] ATHLETIC DIRECTOR.[employer] SW[employer] COACH Work Phone: [facility] 09-14-2022 08:55-0400 Heart rate 80 /min Leda Older S[employer] ATHLETIC DIRECTOR.[employer] SW[employer] COACH Work Phone: [facility] 09-14-2022 08:55-0400 Respiratory rate 16 /min Leda Older SCHO[employer] ATHLETIC DIRECTOR.[employer]IR[employer] SWIMMING COACH Work Phone: [facility] 09-04-2022 13:28-0400 Body temperature 97.7 [degF] Leda Older [employer]CHO[employer] ATHLETIC DIRECTOR.[employer] SW[employer] COACH Work Phone: [facility] 09-04-2022 13:28-0400 Body weight 88 kg Leda Older SCHO[employer] ATHLETIC DIRECTOR.GIR[employer] SW[employer]MING COACH Work Phone: [facility] 09-04-2022 13:28-0400 Diastolic blood pressure 90 mm[Hg] Leda Older [employer]CHO[employer] ATHLETIC DIRECTOR[employer] SW[employer] COACH Work Phone: [facility] 09-04-2022 13:28-0400 Heart rate 86 /min Leda Older SCHO[employer] ATHLETIC DIRECTOR.[employer] SW[employer] COACH Work Phone: [facility] 09-04-2022 13:28-0400 Respiratory rate 16 /min Leda Older [employer] ATHLETIC DIRECTOR.G[employer] SW[employer]MING COACH Work Phone: [facility] 09-04-2022 13:28-0400 SaO2% (BldA) [Mass fraction] 98 % Leda Older [employer] ATHLETIC DIRECTOR.[employer] SW[employer] COACH Work Phone: [facility] 09-04-2022 13:28-0400 Systolic blood pressure 144 mm[Hg] Leda Older [employer]CHO[employer] ATHLETIC DIRECTOR.[employer] SW[employer] COACH Work Phone: [facility] 08-17-2022 08:34-0400 Body temperature 98.49 [degF] Leda Older [employer] ATHLETIC DIRECTOR.[employer] SW[employer] COACH Work Phone: [facility] 08-17-2022 08:34-0400 Body weight 88 kg Leda Older SCHO[employer] ATHLETIC DIRECTOR.[employer] SW[employer] COACH Work Phone: [facility] 08-17-2022 08:34-0400 Diastolic blood pressure 90 mm[Hg] Leda Older [employer]CHO[employer] ATHLETIC DIRECTOR.[employer]IR[employer] SW[employer] COACH Work Phone: [facility] 08-17-2022 08:34-0400 Heart rate 68 /min Leda Older SCHO[employer] ATHLETIC DIRECTOR.[employer] SW[employer] COACH Work Phone: [facility] 08-17-2022 08:34-0400 Respiratory rate 16 /min Leda Older [employer]CHO[employer] ATHLETIC DIRECTOR[employer] SW[employer]MING COACH Work Phone: [facility] 08-17-2022 08:34-0400 SaO2% (BldA) [Mass fraction] 98 % Leda Older [employer] ATHLETIC DIRECTOR.[employer] SW[employer]MING COACH Work Phone: [facility] 08-17-2022 08:34-0400 Systolic blood pressure 152 mm[Hg] Leda Older [employer]CHO[employer] ATHLETIC DIRECTOR[employer] SW[employer] COACH Work Phone: [facility] 07-17-2022 15:38-0400 Body height 157.5 cm Josr Mathews MD Work Phone: [facility] 07-17-2022 15:38-0400 Body temperature 99 [degF] Josr Mathews MD Work Phone: [facility] 07-17-2022 15:38-0400 Body weight 87.54 kg Josr Mathews MD Work Phone: [facility] 07-17-2022 15:38-0400 Diastolic blood pressure 70 mm[Hg] Josr Mathews MD Work Phone: [facility] 07-17-2022 15:38-0400 Heart rate 80 /min Josr Mathews MD Work Phone: [facility] 07-17-2022 15:38-0400 Respiratory rate 12 /min Josr Mathews MD Work Phone: [facility] 07-17-2022 15:38-0400 SaO2% (BldA) [Mass fraction] 97 % Josr Mathews MD Work Phone: [facility] 07-17-2022 15:38-0400 Systolic blood pressure 126 mm[Hg] Josr Mathews MD Work Phone: [facility] 06-26-2022 08:58-0500 Diastolic blood pressure 83 mm[Hg] Leda Older [employer]CHO[employer] ATHLETIC DIRECTOR.[employer] SW[employer] COACH Work Phone: [facility] 06-26-2022 08:58-0500 Systolic blood pressure 135 mm[Hg] Leda Older [employer]CHO[employer] ATHLETIC DIRECTOR.[employer] SW[employer] COACH Work Phone: [facility] 06-26-2022 08:23-0500 Body weight 88 kg Leda Older SCHO[employer] ATHLETIC DIRECTOR.GIR[employer] SW[employer] COACH Work Phone: [facility] 06-26-2022 08:23-0500 Heart rate 68 /min Leda Older [employer] ATHLETIC DIRECTOR[employer] SW[employer] COACH Work Phone: [facility] 06-26-2022 08:23-0500 Respiratory rate 16 /min Leda Older [employer] ATHLETIC DIRECTOR[employer] SW[employer] COACH Work Phone: [facility] 06-15-2022 15:30-0500 Diastolic blood pressure 81 mm[Hg] Leda Older SCHO[employer] ATHLETIC DIRECTOR.[employer] SW[employer] COACH Work Phone: [facility] 06-15-2022 15:30-0500 Heart rate 85 /min Leda Older [employer]CHO[employer] ATHLETIC DIRECTOR.[employer] SWIMM[employer] COACH Work Phone: [facility] 06-15-2022 15:30-0500 Systolic blood pressure 137 mm[Hg] Leda Older [employer]CHO[employer] ATHLETIC DIRECTOR.[employer]IR[employer] SWIMMING COACH Work Phone: [facility] 06-15-2022 14:45-0500 Body temperature 99.1 [degF] Leda Older [employer]CHO[employer] ATHLETIC DIRECTOR[employer] SW[employer] COACH Work Phone: [facility] [facility] 06-15-2022 14:45-0500 Body weight 88.45 kg Leda Older SCHOOL ATHLETIC DIRECTOR.GIRLS SWIMMING COACH Work Phone: [facility] 06-15-2022 14:45-0500 Respiratory rate 16 /min Leda Older SCHOOL ATHLETIC DIRECTOR.GIRLS SWIMMING COACH Work Phone: [facility] 06-15-2022 14:45-0500 SaO2% (BldA) [Mass fraction] 99 % Leda Older SCHOOL ATHLETIC DIRECTOR.GIRLS SWIMMING COACH Work Phone: [facility] 04-17-2022 09:54-0500 Diastolic blood pressure 82 mm[Hg] Leda Older SCHOOL ATHLETIC DIRECTOR.GIRLS SWIMMING COACH Work Phone: [facility] 04-17-2022 09:54-0500 Systolic blood pressure 140 mm[Hg] Leda Older SCHOOL ATHLETIC DIRECTOR.GIRLS SWIMMING COACH Work Phone: [facility] 04-17-2022 09:37-0500 Body height 157.5 cm Leda Older SCHOOL ATHLETIC DIRECTOR.GIRLS SWIMMING COACH Work Phone: [facility] 04-17-2022 09:37-0500 Body temperature 98.1 [degF] Leda Older SCHOOL ATHLETIC DIRECTOR.GIRLS SWIMMING COACH Work Phone: [facility] 04-17-2022 09:37-0500 Body weight 88.91 kg Leda Older SCHOOL ATHLETIC DIRECTOR.GIRLS SWIMMING COACH Work Phone: [facility] 04-17-2022 09:37-0500 Heart rate 75 /min Leda Older SCHOOL ATHLETIC DIRECTOR.GIRLS SWIMMING COACH Work Phone: [facility] 04-17-2022 09:37-0500 SaO2% (BldA) [Mass fraction] 98 % Leda Older SCHOOL ATHLETIC DIRECTOR.GIRLS SWIMMING COACH Work Phone: [facility] 02-14-2022 12:45-0400 Body temperature 99.1 [degF] Tracy Podlogar SCHOOL ATHLETIC DIRECTOR.GIRLS SWIMMING COACH Work Phone: [facility] 02-14-2022 12:45-0400 Body weight 89.18 kg Tracy Podlogar SCHOOL ATHLETIC DIRECTOR.GIRLS SWIMMING COACH Work Phone: [facility] 02-14-2022 12:45-0400 Diastolic blood pressure 88 mm[Hg] Tracy Podlogar SCHOOL ATHLETIC DIRECTOR.GIRLS SWIMMING COACH Work Phone: [facility] 02-14-2022 12:45-0400 Heart rate 80 /min Tracy Podlogar SCHOOL ATHLETIC DIRECTOR.GIRLS SWIMMING COACH Work Phone: [facility] 02-14-2022 12:45-0400 Respiratory rate 18 /min Tracy Podlogar SCHOOL ATHLETIC DIRECTOR.GIRLS SWIMMING COACH Work Phone: [facility] 02-14-2022 12:45-0400 SaO2% (BldA) [Mass fraction] 97 % Tracy Podlogar SCHOOL ATHLETIC DIRECTOR.GIRLS SWIMMING COACH Work Phone: [facility] 02-14-2022 12:45-0400 Systolic blood pressure 130 mm[Hg] Tracy Podlogar SCHOOL ATHLETIC DIRECTOR.GIRLS SWIMMING COACH Work Phone: [facility] 02-07-2022 10:48-0400 Body temperature 98.29 [degF] Kathy Alejandre SCHOOL ATHLETIC DIRECTOR.GIRLS SWIMMING COACH Work Phone: [facility] 02-07-2022 10:48-0400 Body weight 89.72 kg Praisler-Wood SCHOOL ATHLETIC DIRECTOR.GIRLS SWIMMING COACH Work Phone: [facility] 02-07-2022 10:48-0400 Diastolic blood pressure 80 mm[Hg] Praisler-Wood SCHOOL ATHLETIC DIRECTOR.GIRLS SWIMMING COACH Work Phone: [facility] 02-07-2022 10:48-0400 Heart rate 69 /min Praisler-Wood SCHOOL ATHLETIC DIRECTOR.GIRLS SWIMMING COACH Work Phone: [facility] 02-07-2022 10:48-0400 Respiratory rate 16 /min Praisler-Wood SCHOOL ATHLETIC DIRECTOR.GIRLS SWIMMING COACH Work Phone: [facility] 02-07-2022 10:48-0400 SaO2% (BldA) [Mass fraction] 98 % Praisler-Wood SCHOOL ATHLETIC DIRECTOR.GIRLS SWIMMING COACH Work Phone: [facility] 02-07-2022 10:48-0400 Systolic blood pressure 132 mm[Hg] Praisler-Wood SCHOOL ATHLETIC DIRECTOR.GIRLS SWIMMING COACH Work Phone: [facility] 01-19-2022 09:04-0400 Diastolic blood pressure 86 mm[Hg] Leda Older SCHOOL ATHLETIC DIRECTOR.GIRLS SWIMMING COACH Work Phone: [facility] 01-19-2022 09:04-0400 Systolic blood pressure 136 mm[Hg] Leda Older SCHOOL ATHLETIC DIRECTOR.GIRLS SWIMMING COACH Work Phone: [facility] 01-19-2022 08:10-0400 Body weight 88.91 kg Leda Older SCHOOL ATHLETIC DIRECTOR.GIRLS SWIMMING COACH Work Phone: [facility] 01-19-2022 08:10-0400 Heart rate 68 /min Leda Older SCHOOL ATHLETIC DIRECTOR.GIRLS SWIMMING COACH Work Phone: [facility] 01-19-2022 08:10-0400 Respiratory rate 16 /min Leda Older SCHOOL ATHLETIC DIRECTOR.GIRLS SWIMMING COACH Work Phone: [facility] 11-20-2021 13:06-0400 Body temperature 98.29 [degF] Praisler-Wood SCHOOL ATHLETIC DIRECTOR.GIRLS SWIMMING COACH Work Phone: [facility] 11-20-2021 13:06-0400 Body weight 88.72 kg Praisler-Wood SCHOOL ATHLETIC DIRECTOR.GIRLS SWIMMING COACH Work Phone: [facility] 11-20-2021 13:06-0400 Diastolic blood pressure 84 mm[Hg] Praisler-Wood SCHOOL ATHLETIC DIRECTOR.GIRLS SWIMMING COACH Work Phone: [facility] 11-20-2021 13:06-0400 Heart rate 68 /min Praisler-Wood SCHOOL ATHLETIC DIRECTOR.GIRLS SWIMMING COACH Work Phone: [facility] 11-20-2021 13:06-0400 Respiratory rate 16 /min Praisler-Wood SCHOOL ATHLETIC DIRECTOR.GIRLS SWIMMING COACH Work Phone: [facility] 11-20-2021 13:06-0400 SaO2% (BldA) [Mass fraction] 98 % Praisler-Wood SCHOOL ATHLETIC DIRECTOR.GIRLS SWIMMING COACH Work Phone: [facility] 11-20-2021 13:06-0400 Systolic blood pressure 136 mm[Hg] Praisler-Wood SCHOOL ATHLETIC DIRECTOR.GIRLS SWIMMING COACH Work Phone: [facility] 10-13-2021 07:49-0400 Body weight 88.45 kg Leda Older SCHOOL ATHLETIC DIRECTOR.GIRLS SWIMMING COACH Work Phone: [facility] 10-13-2021 07:49-0400 Diastolic blood pressure 100 mm[Hg] Leda Older SCHOOL ATHLETIC DIRECTOR.GIRLS SWIMMING COACH Work Phone: [facility] 10-13-2021 07:49-0400 Heart rate 64 /min Leda Older SCHOOL ATHLETIC DIRECTOR.GIRLS SWIMMING COACH Work Phone: [facility] 10-13-2021 07:49-0400 Respiratory rate 16 /min Leda Older SCHOOL ATHLETIC DIRECTOR.GIRLS SWIMMING COACH Work Phone: [facility] 10-13-2021 07:49-0400 Systolic blood pressure 144 mm[Hg] Leda Older SCHOOL ATHLETIC DIRECTOR.GIRLS SWIMMING COACH Work Phone: [facility] 10-10-2021 18:09-0400 Body temperature 97.9 [degF] Praisler-Wood SCHOOL ATHLETIC DIRECTOR.GIRLS SWIMMING COACH Work Phone: [facility] 10-10-2021 18:09-0400 Body weight 90.54 kg Praisler-Wood SCHOOL ATHLETIC DIRECTOR.GIRLS SWIMMING COACH Work Phone: [facility] 10-10-2021 18:09-0400 Diastolic blood pressure 94 mm[Hg] Praisler-Wood SCHOOL ATHLETIC DIRECTOR.GIRLS SWIMMING COACH Work Phone: [facility] 10-10-2021 18:09-0400 Heart rate 79 /min Praisler-Wood SCHOOL ATHLETIC DIRECTOR.GIRLS SWIMMING COACH Work Phone: [facility] 10-10-2021 18:09-0400 Respiratory rate 21 /min Praisler-Wood SCHOOL ATHLETIC DIRECTOR.GIRLS SWIMMING COACH Work Phone: [facility] 10-10-2021 18:09-0400 SaO2% (BldA) [Mass fraction] 99 % Praisler-Wood SCHOOL ATHLETIC DIRECTOR.GIRLS SWIMMING COACH Work Phone: [facility] 10-10-2021 18:09-0400 Systolic blood pressure 172 mm[Hg] Praisler-Wood SCHOOL ATHLETIC DIRECTOR.GIRLS SWIMMING COACH Work Phone: [facility] 09-19-2021 15:16-0400 Diastolic blood pressure 80 mm[Hg] Dyana Haagen SCHOOL ATHLETIC DIRECTOR.GIRLS SWIMMING COACH Work Phone: [facility] 09-19-2021 15:16-0400 Heart rate 73 /min Dyana Haagen SCHOOL ATHLETIC DIRECTOR.GIRLS SWIMMING COACH Work Phone: [facility] 09-19-2021 15:16-0400 Respiratory rate 18 /min Dyana Haagen SCHOOL ATHLETIC DIRECTOR.GIRLS SWIMMING COACH Work Phone: [facility] 09-19-2021 15:16-0400 SaO2% (BldA) [Mass fraction] 98 % Dyana Haagen SCHOOL ATHLETIC DIRECTOR.GIRLS SWIMMING COACH Work Phone: [facility] 09-19-2021 15:16-0400 Systolic blood pressure 132 mm[Hg] Dyana Haagen SCHOOL ATHLETIC DIRECTOR.GIRLS SWIMMING COACH Work Phone: [facility] Encounters Encounter Date Encounter Type Care Provider Facility Start: 06-08-2023 Erasto Brown SCHOOL ATHLETIC DIRECTOR .GIRLS SWIMMING COACH Work Phone: [facility] Procedures Date Procedure Procedure Detail Performing Clinician Start: 04-16-2023 COVID & INFLUENZA A/ B & RSV NAAT, ROUTINE Rubi Araya PA-C Work Phone: Start: 03-12-2023 COVID & INFLUENZA A/ B NAAT, ROUTINE Alexandre Campa PA-C Work Phone: Start: 11-09-2022 End: 11-09-2022 Mammography Chhaya Crowe MD Work Phone: Start: 09-21-2022 Us abdominal real ti me w/image limited Leda Brown SCHOOL ATHLETIC DIRECTOR.GIRLS SWIMMING COACH Work Phone: Start: 02-14-2022 Urnls dip stick/tabl et rgnt auto w/o microscopy Tracy Mendes SCHOOL ATHLETIC DIRECTOR.GIRLS SWIMMING COACH Work Phone: Start: 01-19-2022 Hemoglobin A1c/Hemoglobin.total in Blood Leda Brown SCHOOL ATHLETIC DIRECTOR.GIRLS SWIMMING COACH Work Phone: Start: 01-19-2022 INFLUENZA VACCINE QUADRIVALENT 6 MO - 64 YRS IM Leda Brown SCHOOL ATHLETIC DIRECTOR.GIRLS SWIMMING COACH Work Phone: Start: 11-20-2021 STREP A MOLECULAR (POC) Kathy Alejandre SCHOOL ATHLETIC DIRECTOR.GIRLS SWIMMING COACH Work Phone: Start: 11-02-2021 MIN DIAG W ROBERT RT Molly Seymour SCHOOL ATHLETIC DIRECTOR.CNM Work Phone: Start: 10-13-2021 Hemoglobin A1c/Hemoglobin.total in Blood Leda Brown SCHOOL ATHLETIC DIRECTOR.GIRLS SWIMMING COACH Work Phone: Start: 10-10-2021 Urnls dip stick/tabl et rgnt auto w/o microscopy Anabela Angulo PA-C Work Phone: Start: 10-06-2021 CBC/DIFF (OUTSIDE ) Musa Mason Work Phone: Start: 09-22-2021 Mammography Mammograph y Coordinator Start: 06-16-2021 Adult depression scr eening assessment Eladio Hoskins APRN.GIRLS SWIMMING COACH Work Phone: Start: 03-15-2020 Mammography Eladio ohara SCHOOL ATHLETIC DIRECTOR.GIRLS SWIMMING COACH Work Phone: Start: 01-22-2020 Colonoscopy Eladioyessica ohara SCHOOL ATHLETIC DIRECTOR.GIRLS SWIMMING COACH Work Phone: Start: 01-14-2020 Dup-scan artl marlon abdl/pel/scrot&/rpr orgn lmt Dia Iglesias Work Phone: Plan of Treatment Date Care Activity Detail Author Start: 05-23-2024 Annual PCP Team Bagging Salvager tricia Disease Visit Annual PCP Team Chronic Disease Visit [facility] Start: 03-28-2024 Annual PCP Team Bagging Salvager tricia Disease Visit Annual PCP Team Chronic Disease Visit [facility] Start: 03-28-2024 Colorectal Cancer Screening Colorectal Cancer Screening [facility] Immunizations Immunization Date Immunization Notes Care Provider Fa harinder 01-19-2022 influenza, injectabl e, quadrivalent, contains preservative Leda Brown APRN.GIRLS SWIMMING COACH Work Phone: [facility] 01-19-2022 influenza virus vaccine, unspecified formulation Leda Brown APRN.GIRLS SWIMMING COACH Work Phone: [facility] 03-17-2021 influenza, injectabl e, quadrivalent, contains preservative Eladio Hoskins APRN.GIRLS SWIMMING COACH Work Phone: [facility] 09-03-2020 COVID-19 vaccine, fu ll dose (MODERNA) Eladio Hoskins APRN.GIRLS SWIMMING COACH Work Phone: [facility] 08-06-2020 COVID-19 vaccine, fu ll dose (MODERNA) Eladio Hoskins APRN.GIRLS SWIMMING COACH Work Phone: [facility] Work Phone: 01-28-2020 influenza, injectabl e, quadrivalent, contains preservative Eladio Hoskins APRN.GIRLS SWIMMING COACH Work Phone: [facility] Work Phone: 02-19-2019 influenza, injectabl e, quadrivalent, contains preservative Eladio Hoskins APRN.GIRLS SWIMMING COACH Work Phone: [facility] Payers Date Payer Category Payer Unknown [employer] PPO [id number] 2021-Present [phone] [address] [place] [address] PPO [id number] 2021 Unknown [id number] 2021 Unknown [id number] 1965 Unknown [id number] 1965 Unknown [id number] Social History Date Type Detail Facility [facility] [place] [place] Sex Assigned At Not on file [facility] [place], [place] Start: 01-22-2019 End: 02-14-2022 Tobacco smoking status NHIS Never smoked tobacco [facility] Start: 01-22-2019 End: 02-14-2022 Tobacco use and exposure Smokeless tobacco non-user [facility] Start: 06-16-2021 End: 05-03-2023 Alcohol intake Ex-drinker (finding) [facility] Start: 01-28-2020 End: 05-18-2020 History SDOH Alcohol Frequency 2 [facility] Start: 01-28-2020 End: 05-18-2020 History SDOH Alcohol Std Drinks 1 [facility] Start: 05-16-2021 History SDOH Alcohol Comment rare [facility] Start: 01-28-2020 History SDOH Social Connections Living 5 [facility] Start: 01-28-2020 History SDOH Physical Activity DPW 0 [facility] Start: 01-28-2020 History SDOH Financial 4 [facility] Start: 05-18-2020 History SDOH Housing Unable to Pay 3 [facility] Start: 01-06-2020 Education 21 [facility] Start: 1965 Sex Assigned At Female [facility] Start: 09-04-2021 End: 01-19-2022 Exposure to SARS-CoV-2 (event) Unable to assess [facility] Work Phone: Start: 2021 End: 02-23-2022 Exposure to SARS-CoV-2 (event) Not sure [facility] Start: 01-28-2020 End: 09-14-2022 History of Social function [facility] Start: 01-28-2020 End: 09-14-2022 Social connection and isolation panel [facility] Do you belong to any clubs or organizations such as lutheran groups, unions, fraternal or athletic groups, or school groups? No [facility] Are you now , , , , never or living with a partner? [facility] How often to you hav e a drink containing alcohol? Monthly or less [facility] How many standard dr inks containing alcohol do you have on a typical day? 1 or 2 [facility] How often do you hav e 6 or more drinks on 1 occasion? Never [facility] How hard is it for y ou to pay for the very basics like food, housing, medical care, and heating Not very hard [facility] Do you feel stress - tense, restless, nervous, or anxious, or unable to sleep at night because your mind is troubled all the time - these days [OSQ] Only a little [facility] (I/We) worried [facility] (my/our) food would run out before (I/we) got money to buy more. Never true [facility] In the past 12 month s, has lack of transportation kept you from medical appointments or from getting medications? No [facility] Start: 01-06-2020 Gender identity Identifies as female gender (finding) [facility] Start: 01-06-2020 Sexual orientation Heterosexual (finding) [facility] Do you feel stress - tense, restless, nervous, or anxious, or unable to sleep at night because your mind is troubled all the time - these days [OSQ] Not at all [facility] (I/We) worried wheth er (my/our) food would run out before (I/we) got money to buy more. DK or Refused [facility] Medical Equipment Procedure Code Equipment Code Equipment Origin al Text Equipment Identifier Dates Start: 05-09-2021 Clinical Notes 08-08-2021 to 06-11-2023 Telephone Encounter - FAHEEM Hurtado Kim E - 06/11/2023 11:00 AM Rubi Hunter PA-C - 04/16/2023 4:24 PM Leda Perez APRN.GIRLS SWIMMING COACH - 03/28/2023 3:34 PM Alexandre Vieyra PA-C - 03/12/2023 1:12 PM EST Note Date & Type Note Facility 06-11-2023 Miscellaneous Notes Patient has been identified by name and date of : No Patient phones for refill(s): Requested Prescriptions Pending Prescriptions Disp Refills budesonide (PULMICORT) 1 mg/2 mL nebulizer solution [Pharmacy Med Name: BUDESONIDE 1 MG/2 ML INH SUSP] 120 mL 2 Sig: instill contents of 1 vial IN NASAL SALINE WASHES AND USE TWICE DAILY Date of last office visit in primary care: 05/23/23 Date of next office visit in primary care: 07/05/23 Please advise. Thank you. Michelle Hurtado LPN. documented in this encounter [facility] 05-23-2023 Note HNO ID: [id number] Author: LEDA BROWN APRN.ANTHONY Service: ? Author Type: Nurse Practitioner Type: Progress Notes Filed: 05/23/2023 16:55 Note Text: CC: Patient presents with: Recheck: Follow up HPI Cassia Holland is a 57 year old female who presents today for follow up. Mother just passed 6 days ago and feels numb. Does not think she is having palpitations but unsure because she is so numb. A-fib and HTN - has not had ablation yet. Recent COVID infection with ongoing symptoms so unable to schedule until fully resolved. Ms. Holland denies. Has had some weird chest sensations and puffiness she is following up with her pulper for. Patient denies any side effects of her medication(s) and is compliant with their regimen. She does not check BP's generally. Cassia denies regular aerobic exercise. She watches her diet for sodium, low fat and low cholesterol generally not very much. Last 3 Encounter BP Readings: Date: BP: 05/23/2023 168/82 05/03/2023 144/88 04/16/2023 151/83 Currently sinus pressure, headaches, facial puffiness, right ear pain, cough productive of clear to yellow sputum, shortness of breath, fatigue, and intermittent dizziness. Denies fever, chills, ear drainage, weakness or syncope. Does nasal lavage and using flonase as directed by ENT for chronic sinus issues. REVIEW OF SYSTEMS See HPI PAST MEDICAL HISTORY Diagnosis Date Diabetes (HCC) adult onset Fibromyalgia Graves disease High blood pressure HSV-2 infection Interstitial lung disease (HCC) Lupus (HCC) Mixed connective tissue disease (HCC) Raynaud disease PAST SURGICAL HISTORY Procedure Laterality Date D AND C HYSTERECTOMY LAPAROSCOPY DIAGNOSTIC PAST SURGICAL HISTORY OF 7 sinus surgeries PAST SURGICAL HISTORY OF bilateral cataract surgeries TONSILLECTOMY HX ALLERGIES Cantaloupe, Levaquin [Levofloxacin], and Sulfa (Sulfonamide Antibiotics) MEDICATIONS benzonatate (TESSALON PERLES) 100 mg capsuleTake 2 capsules by mouth three times a day as needed for cough.Disp: 60 capsuleRfl: 0 dilTIAZem CD (CARDIZEM CD) 180 mg 24 hr capsuleTake 180 mg by mouth once daily.Disp: Rfl: fluticasone (FLONASE) 50 mcg/actuation nasal sprayinstill 2 sprays into each nostril once dailyDisp: 16 gRfl: 2 budesonide (PULMICORT) 1 mg/2 mL nebulizer solutionINSTILL RESPULE IN NASAL SALINE WASHES AND USE TWICE DAILYDisp: 120 mLRfl: 2 montelukast (SINGULAIR) 10 mg tablettake 1 tablet by mouth once dailyDisp: 90 tabletRfl: 3 apixaban (ELIQUIS) 5 mg tab(s)Take 5 mg by mouth two times a day.Disp: Rfl: pravastatin sodium (PRAVASTATIN ORAL)Take by mouth.Disp: Rfl: clopidogrel (PLAVIX) 75 mg tablettake 4 tablets by mouth on day 1 then 1 tablet by mouth once daily afterDisp: Rfl: losartan (COZAAR) 100 mg tabletTake 0.5 tablets by mouth once daily.Disp: 30 tabletRfl: 5 citalopram (CELEXA) 20 mg tabletTake 1 tablet by mouth once daily.Disp: 30 tabletRfl: 5 metFORMIN ER (GLUCOPHAGE XR) 500 mg 24 hr tabletTake 2 tablets by mouth twice daily with meals.Disp: 360 tabletRfl: 1 hydroCHLOROthiazide 25 mg tablettake 1 tablet by mouth once dailyDisp: 30 tabletRfl: 4 amLODIPine (NORVASC) 5 mg tablettake 1 tablet by mouth once dailyDisp: 30 tabletRfl: 1 carvedilol (COREG) 6.25 mg tabletTake 6.25 mg by mouth twice daily with meals.Disp: Rfl: nystatin (MYCOSTATIN) powderApply 1 application to affected area three times daily.Disp: 30 gRfl: 3 lansoprazole (PREVACID) 30 mg capsuleTake 1 capsule by mouth daily before breakfast. 1/2 hr before meal.Disp: 30 capsuleRfl: 11 naproxen (NAPROSYN) 500 mg tablettake 1 tablet by mouth twice a day with food if needed for PAIN/INFLAMMATIONDisp: 30 tabletRfl: 1 EPINEPHrine (EPIPEN) 0.3 mg/0.3 mL auto-injectorUse per directed for severe allergic reactionDisp: 2 EachRfl: 1 lancets (PhagenesisTOUCH DELICA PLUS LANCET) 33 gaugeTest blood sugar(s) 1 times daily. Dx: Type 2 DM - Controlled E11.9 Insulin: NoDisp: 100 EachRfl: 11 blood sugar diagnostic (ONETOUCH ULTRA TEST) test stripuse 1 TEST STRIP to TEST BLOOD SUGAR once dailyDisp: 50 StripRfl: 11 levalbuterol tartrate HFA (XOPENEX HFA) 45 mcg/actuation inhalerInhale 1-2 Puffs as instructed every 4 hours as needed.Disp: 1 InhalerRfl: 2 Blood-Glucose MeterDispense 1 kitDisp: 1 EachRfl: 0 FAMILY HISTORY Problem Relation Age of Onset Heart Mother stents Hypertension Mother other (pacemaker) Mother other (enlarged heart) Mother other (vertigo) Mother Prostate Cancer Father other (sjogrens) Sister Social History Tobacco Use Smoking status: Never Smokeless tobacco: Never Vaping Use Vaping Use: Never used Substance Use Topics Alcohol use: Not Currently Drug use: Never PHYSICAL EXAM BP 168/82 Pulse 74 Resp 16 Wt 84.4 kg (186 lb) SpO2 99% BMI 32.43 kg/m? General Appearance: well appearing, in no acute distress, alert Pysch: mood and affect broad and appropriate Skin: Skin color, texture, (more content not included)... [facility] 05-03-2023 Note HNO ID: [id number] Author: Luz Nieves APRN.ANTHONY Service: ? Author Type: Nurse Practitioner Type: Progress Notes Filed: 05/03/2023 2:53 PM Note Text: CC: Patient presents with: Follow Up: COVID HPI Cassia Holland is a 57 year old female who presents today for above. Patient tested positive for COVID on 04/28 with symptoms starting on 04/26. treatment with molnupiravir was prescribed. She had virtual visit yesterday for work excuse, did not feel ready to go back until 05/04. Although she feels well enough to go back tomorrow she is here today to make sure it is okay. Still has cough and feels achy with low grade temperature around 99 at times but denies temperature over 100.5. all other symptoms have resolved. Review of Systems Constitutional: Negative for appetite change, chills, diaphoresis and fever. Respiratory: Negative for shortness of breath and wheezing. Cardiovascular: Negative for chest pain. PAST MEDICAL HISTORY Diagnosis Date Diabetes (HCC) adult onset Fibromyalgia Graves disease High blood pressure HSV-2 infection Interstitial lung disease (HCC) Lupus (HCC) Mixed connective tissue disease (HCC) Raynaud disease PAST SURGICAL HISTORY Procedure Laterality Date D AND C HYSTERECTOMY LAPAROSCOPY DIAGNOSTIC PAST SURGICAL HISTORY OF 7 sinus surgeries PAST SURGICAL HISTORY OF bilateral cataract surgeries TONSILLECTOMY HX ALLERGIES Cantaloupe, Levaquin [Levofloxacin], and Sulfa (Sulfonamide Antibiotics) MEDICATIONS molnupiravir 200 mg capsuleTake 4 capsules by mouth two times a day for 5 days.Disp: 40 capsuleRfl: 0 dilTIAZem CD (CARDIZEM CD) 180 mg 24 hr capsuleTake 180 mg by mouth once daily.Disp: Rfl: fluticasone (FLONASE) 50 mcg/actuation nasal sprayinstill 2 sprays into each nostril once dailyDisp: 16 gRfl: 2 budesonide (PULMICORT) 1 mg/2 mL nebulizer solutionINSTILL RESPULE IN NASAL SALINE WASHES AND USE TWICE DAILYDisp: 120 mLRfl: 2 montelukast (SINGULAIR) 10 mg tablettake 1 tablet by mouth once dailyDisp: 90 tabletRfl: 3 apixaban (ELIQUIS) 5 mg tab(s)Take 5 mg by mouth two times a day.Disp: Rfl: pravastatin sodium (PRAVASTATIN ORAL)Take by mouth.Disp: Rfl: clopidogrel (PLAVIX) 75 mg tablettake 4 tablets by mouth on day 1 then 1 tablet by mouth once daily afterDisp: Rfl: losartan (COZAAR) 100 mg tabletTake 0.5 tablets by mouth once daily.Disp: 30 tabletRfl: 5 citalopram (CELEXA) 20 mg tabletTake 1 tablet by mouth once daily.Disp: 30 tabletRfl: 5 metFORMIN ER (GLUCOPHAGE XR) 500 mg 24 hr tabletTake 2 tablets by mouth twice daily with meals.Disp: 360 tabletRfl: 1 hydroCHLOROthiazide 25 mg tablettake 1 tablet by mouth once dailyDisp: 30 tabletRfl: 4 amLODIPine (NORVASC) 5 mg tablettake 1 tablet by mouth once dailyDisp: 30 tabletRfl: 1 carvedilol (COREG) 6.25 mg tabletTake 6.25 mg by mouth twice daily with meals.Disp: Rfl: nystatin (MYCOSTATIN) powderApply 1 application to affected area three times daily.Disp: 30 gRfl: 3 lansoprazole (PREVACID) 30 mg capsuleTake 1 capsule by mouth daily before breakfast. 1/2 hr before meal.Disp: 30 capsuleRfl: 11 naproxen (NAPROSYN) 500 mg tablettake 1 tablet by mouth twice a day with food if needed for PAIN/INFLAMMATIONDisp: 30 tabletRfl: 1 EPINEPHrine (EPIPEN) 0.3 mg/0.3 mL auto-injectorUse per directed for severe allergic reactionDisp: 2 EachRfl: 1 lancets (PhagenesisTOUCH DELICA PLUS LANCET) 33 gaugeTest blood sugar(s) 1 times daily. Dx: Type 2 DM - Controlled E11.9 Insulin: NoDisp: 100 EachRfl: 11 blood sugar diagnostic (ONETOUCH ULTRA TEST) test stripuse 1 TEST STRIP to TEST BLOOD SUGAR once dailyDisp: 50 StripRfl: 11 levalbuterol tartrate HFA (XOPENEX HFA) 45 mcg/actuation inhalerInhale 1-2 Puffs as instructed every 4 hours as needed.Disp: 1 InhalerRfl: 2 Blood-Glucose MeterDispense 1 kitDisp: 1 EachRfl: 0 FAMILY HISTORY Problem Relation Age of Onset Heart Mother stents Hypertension Mother other (pacemaker) Mother other (enlarged heart) Mother other (vertigo) Mother Prostate Cancer Father other (sjogrens) Sister Social History Tobacco Use Smoking status: Never Smokeless tobacco: Never Vaping Use Vaping Use: Never used Substance Use Topics Alcohol use: Not Currently Drug use: Never BP 144/88 Pulse 77 Temp 37.2 ?C (98.9 ?F) (Temporal) Resp 18 Wt 83.5 kg (184 lb) SpO2 98% BMI 32.08 kg/m? Physical Exam Vitals reviewed. Constitutional: Appearance: She is not ill-appearing. HENT: Right Ear: Ear canal normal. Left Ear: Ear canal normal. Mouth/Throat: Mouth: Mucous membranes are moist. Eyes: Conjunctiva/sclera: Conjunctivae normal. Cardiovascular: Rate and Rhythm: Normal rate and regular rhythm. Heart sounds: Normal heart sounds. No murmur heard. Pulmonary: Effort: Pulmonary effort is normal. Breath sounds: Normal breath sounds. No wheezing, rhonchi or rales. Skin: General: Skin is warm and dry. Neurolo (more content not included)... [facility] 05-02-2023 Note HNO ID: [id number] Author: Luz Nieves APRN.GIRLS SWIMMING COACH Service: ? Author Type: Nurse Practitioner Type: Progress Notes Filed: 05/02/2023 8:35 AM Note Text: This Team Access Model visit is a virtual encounter. It required patient-provider interaction for the medical decision making as documented below. I have communicated my name and active licensure. The patient's identity and physical location were verified at the time of this visit. Either the patient or their legal senior account representative has been informed of the risks and benefits of -- and alternatives to -- treatment through a remote evaluation and consents to proceed with the evaluation remotely. Patient Location: [place] CC: Patient presents with: Covid Follow Up HPI Cassia Holland is a 57 year old female who is contacted today for a virtual visit. This is an established patient of Dr. Josr Mathews MD. Patient tested positive for COVID on 04/28 with symptoms starting a couple days prior. She was prescribed molnupiravir, last dose tomorrow. Still experiencing symptoms with minimal improvement and would like to be off work for a couple more days. Symptoms include cough with green sputum, low grade fever, body aches, malaise. Denies any new or worsening symptoms. REVIEW OF SYSTEMS See HPI PAST MEDICAL HISTORY Diagnosis Date Diabetes (HCC) adult onset Fibromyalgia Graves disease High blood pressure HSV-2 infection Interstitial lung disease (HCC) Lupus (HCC) Mixed connective tissue disease (HCC) Raynaud disease PAST SURGICAL HISTORY Procedure Laterality Date D AND C HYSTERECTOMY LAPAROSCOPY DIAGNOSTIC PAST SURGICAL HISTORY OF 7 sinus surgeries PAST SURGICAL HISTORY OF bilateral cataract surgeries TONSILLECTOMY HX ALLERGIES Cantaloupe, Levaquin [Levofloxacin], and Sulfa (Sulfonamide Antibiotics) MEDICATIONS molnupiravir 200 mg capsuleTake 4 capsules by mouth two times a day for 5 days.Disp: 40 capsuleRfl: 0 dilTIAZem CD (CARDIZEM CD) 180 mg 24 hr capsuleTake 180 mg by mouth once daily.Disp: Rfl: fluticasone (FLONASE) 50 mcg/actuation nasal sprayinstill 2 sprays into each nostril once dailyDisp: 16 gRfl: 2 budesonide (PULMICORT) 1 mg/2 mL nebulizer solutionINSTILL RESPULE IN NASAL SALINE WASHES AND USE TWICE DAILYDisp: 120 mLRfl: 2 montelukast (SINGULAIR) 10 mg tablettake 1 tablet by mouth once dailyDisp: 90 tabletRfl: 3 apixaban (ELIQUIS) 5 mg tab(s)Take 5 mg by mouth two times a day.Disp: Rfl: pravastatin sodium (PRAVASTATIN ORAL)Take by mouth.Disp: Rfl: clopidogrel (PLAVIX) 75 mg tablettake 4 tablets by mouth on day 1 then 1 tablet by mouth once daily afterDisp: Rfl: losartan (COZAAR) 100 mg tabletTake 0.5 tablets by mouth once daily.Disp: 30 tabletRfl: 5 citalopram (CELEXA) 20 mg tabletTake 1 tablet by mouth once daily.Disp: 30 tabletRfl: 5 metFORMIN ER (GLUCOPHAGE XR) 500 mg 24 hr tabletTake 2 tablets by mouth twice daily with meals.Disp: 360 tabletRfl: 1 hydroCHLOROthiazide 25 mg tablettake 1 tablet by mouth once dailyDisp: 30 tabletRfl: 4 amLODIPine (NORVASC) 5 mg tablettake 1 tablet by mouth once dailyDisp: 30 tabletRfl: 1 carvedilol (COREG) 6.25 mg tabletTake 6.25 mg by mouth twice daily with meals.Disp: Rfl: ondansetron orally disintegrating (ZOFRAN ODT) 4 mg disintegrating tabletTake 1 tablet by mouth every 6 hours as needed for nausea/vomiting.Disp: 30 tabletRfl: 1 nystatin (MYCOSTATIN) powderApply 1 application to affected area three times daily.Disp: 30 gRfl: 3 lansoprazole (PREVACID) 30 mg capsuleTake 1 capsule by mouth daily before breakfast. 1/2 hr before meal.Disp: 30 capsuleRfl: 11 naproxen (NAPROSYN) 500 mg tablettake 1 tablet by mouth twice a day with food if needed for PAIN/INFLAMMATIONDisp: 30 tabletRfl: 1 EPINEPHrine (EPIPEN) 0.3 mg/0.3 mL auto-injectorUse per directed for severe allergic reactionDisp: 2 EachRfl: 1 lancets (PhagenesisTOUCH DELICA PLUS LANCET) 33 gaugeTest blood sugar(s) 1 times daily. Dx: Type 2 DM - Controlled E11.9 Insulin: NoDisp: 100 EachRfl: 11 blood sugar diagnostic (ONETOUCH ULTRA TEST) test stripuse 1 TEST STRIP to TEST BLOOD SUGAR once dailyDisp: 50 StripRfl: 11 levalbuterol tartrate HFA (XOPENEX HFA) 45 mcg/actuation inhalerInhale 1-2 Puffs as instructed every 4 hours as needed.Disp: 1 InhalerRfl: 2 triamcinolone acetonide (KENALOG) 0.1 % creamApply to affected area twice daily. For 7-10 days.Disp: 45 gRfl: 0 (Patient not taking: Reported on 03/28/2023) Blood-Glucose MeterDispense 1 kitDisp: 1 EachRfl: 0 FAMILY HISTORY Problem Relation Age of Onset Heart Mother stents Hypertension Mother other (pacemaker) Mother other (enlarged heart) Mother other (vertigo) Mother Prostate Cancer Father other (sjogrens) Sister Social History Tobacco Use Smoking status: Never Smokeless tobacco: Never Vaping Use Vaping Use: Never used Substance Use Topics Alcohol use: Not Currently Drug use: Never EXAM: (more content not included)... [facility] 04-28-2023 Note HNO ID: [id number] Author: Shiloh Medrano, SCHOOL ATHLETIC DIRECTOR.GIRLS SWIMMING COACH Service: ? Author Type: Nurse Practitioner Type: Progress Notes Filed: 04/28/2023 10:06 AM Note Text: Telemedicine Evaluation for COVID-19 Infection MyChart Zoom Video Visit was used for evaluation of this patient. I have communicated my name and active licensure. The patient's identity and physical location were verified at the time of this visit. Either the patient or their legal senior account representative has been informed of the risks and benefits of -- and alternatives to -- treatment through a remote evaluation and consents to proceed with the evaluation remotely. SUBJECTIVE Cassia Holland is a 57 year old female who presents with 2 days of symptoms that are stable. Symptoms include: Fever (?100.4F): Yes or Chills: Yes Cough: No Shortness of breath: Yes (mild) or Difficulty breathing: No Fatigue: Yes Muscle aches: No Headache: No New loss of smell or taste: No Sore throat: Yes Nasal congestion: Yes or Rhinorrhea: No Nausea: No or Vomiting: No Diarrhea: No OTC meds/remedies that patient has tried: acetaminophen and Mucinex DM. High risk category assessment Diabetes Hypertension Exposures: Sick contacts? Yes Family or close contacts with confirmed/probable COVID-19 in last 14 days? Yes OBJECTIVE VIDEO EXAM Unable to connect via video Audio encounter only Temp: 100.9'F GENERAL: Awake and Alert PULMONARY: breathing comfortably on room air , no coughing noted, no wheezing noted, and able to speak in full complete sentences ASSESSMENT/PLAN (U07.1) COVID-19 virus infection (primary encounter diagnosis) Pt. Is febrile, and in NAD Appears to be moderate covid-19 illness Sheis experiencing mild SOB She has been vaccinated against covid-19 Risk factors for progression to severe illness includes HTN, diabetes, afib Covid-19 pt. Information and isolation guidelines provided. Outpatient treatment options discussed Risks/benefits of treatment discussed Pt. Would like to proceed with molnupiravir and symptomatic management Follow up with PCP for persistent, worsening or new symptoms - Discussed symptom monitoring and supportive care - Red flag symptoms requiring follow up discussed This patient encounter involved the screening or treatment of novel coronavirus infection (COVID-19). Molnupiravir Eligibility and Patient Discussion [facility] Formulary Restriction Criteria: Adult outpatients 18 years and older with ALL of the following: [x] Patient has symptoms for 5 days or less [x] Not requiring hospitalization at any time for management of COVID-19 [x] Not requiring supplemental oxygen or a change in baseline supplemental oxygen [x] Not utilized for pre-exposure or post-exposure prophylaxis for prevention of COVID-19 [x] Patient is not or lactating [x] Meeting at least one of the criteria for high risk of progression to severe COVID-19: [] Age over 65 years [] Cancer [] Chronic kidney disease [] Chronic liver disease [] Chronic lung diseases, including cystic fibrosis [] Dementia or other neurological conditions [x] Diabetes (type 1 or type 2) [] Disabilities, including Down syndrome and neurodevelopmental disorders [x] Heart conditions [] HIV infection [] Immunocompromised state [] Mental health conditions [] Medical related technological dependence (tracheostomy, gastrostomy, or positive pressure ventilation (not related to COVID) [] Overweight and obesity (BMI greater or equal to 25 for adults) [] Physical inactivity [] Sickle cell disease or thalassemia [] Smoking, current or former [] Solid organ or blood stem cell transplant [] Stroke or cerebrovascular disease [] Substance use disorders [] Tuberculosis [] People from racial and ethnic minority groups Criteria above are met: Yes Date of Symptom Onset: 04/26/2023 Tested positive today Patient received COVID vaccine: Yes / status reviewed: Females: [x] Patient is not currently and there is no possibility the patient could be (select one of the following): [] test does not need to be confirmed in patients who have undergone permanent sterilization, are currently using an intrauterine system or contraceptive implant, or in whom is not possible. [] Patients not meeting conditions above: assess whether the patient is based on the first day of the last menstrual period in individuals who have regular menstrual cycles, is using reliable method of contraception correctly and consistently or have had a negative test [] A test is recommended if the individual has irregular menstrual cycles, is unsure of the first day of the last menstrual period or is not using effective contraception correctly and consistently [] Patient is not currently . is not recommended during treatment a (more content not included)... [facility] 04-16-2023 Note HNO ID: [id number] Author: Rubi Araya PA-C Service: ? Author Type: Physician Account Adjuster Type: Progress Notes Filed: 04/16/2023 4:26 PM Note Text: This note was created using [employer]. Subjective Cassia Holland is a 57 year old female. HPI Presents with nausea, low-grade fever, body aches since this morning. She states she was exposed to COVID and influenza. She [place] [facility] and it was going [place]. She also was exposed to COVID by her friend recently. No cough. Some mild congestion. No diarrhea or vomiting. She does have a history of interstitial lung disease, diabetes, lupus. Review of Systems Constitutional: Positive for fatigue and fever. HENT: Positive for congestion. Negative for ear pain and sore throat. Respiratory: Negative. Cardiovascular: Negative. Gastrointestinal: Positive for nausea. Negative for abdominal pain, diarrhea and vomiting. Genitourinary: Negative. Musculoskeletal: Positive for myalgias. Neurological: Positive for headaches. All other systems reviewed and are negative. PAST MEDICAL HISTORY Diagnosis Date Diabetes (HCC) adult onset Fibromyalgia Graves disease High blood pressure HSV-2 infection Interstitial lung disease (HCC) Lupus (HCC) Mixed connective tissue disease (HCC) Raynaud disease Current Outpatient Medications Medication Sig Dispense Refill dilTIAZem CD (CARDIZEM CD) 180 mg 24 hr capsule Take 180 mg by mouth once daily. fluticasone (FLONASE) 50 mcg/actuation nasal spray instill 2 sprays into each nostril once daily 16 g 2 budesonide (PULMICORT) 1 mg/2 mL nebulizer solution INSTILL RESPULE IN NASAL SALINE WASHES AND USE TWICE DAILY 120 mL 2 montelukast (SINGULAIR) 10 mg tablet take 1 tablet by mouth once daily 90 tablet 3 apixaban (ELIQUIS) 5 mg tab(s) Take 5 mg by mouth two times a day. pravastatin sodium (PRAVASTATIN ORAL) Take by mouth. clopidogrel (PLAVIX) 75 mg tablet take 4 tablets by mouth on day 1 then 1 tablet by mouth once daily after losartan (COZAAR) 100 mg tablet Take 0.5 tablets by mouth once daily. 30 tablet 5 citalopram (CELEXA) 20 mg tablet Take 1 tablet by mouth once daily. 30 tablet 5 metFORMIN ER (GLUCOPHAGE XR) 500 mg 24 hr tablet Take 2 tablets by mouth twice daily with meals. 360 tablet 1 hydroCHLOROthiazide 25 mg tablet take 1 tablet by mouth once daily 30 tablet 4 amLODIPine (NORVASC) 5 mg tablet take 1 tablet by mouth once daily 30 tablet 1 carvedilol (COREG) 6.25 mg tablet Take 6.25 mg by mouth twice daily with meals. ondansetron orally disintegrating (ZOFRAN ODT) 4 mg disintegrating tablet Take 1 tablet by mouth every 6 hours as needed for nausea/vomiting. 30 tablet 1 nystatin (MYCOSTATIN) powder Apply 1 application to affected area three times daily. 30 g 3 lansoprazole (PREVACID) 30 mg capsule Take 1 capsule by mouth daily before breakfast. 1/2 hr before meal. 30 capsule 11 naproxen (NAPROSYN) 500 mg tablet take 1 tablet by mouth twice a day with food if needed for PAIN/INFLAMMATION 30 tablet 1 EPINEPHrine (EPIPEN) 0.3 mg/0.3 mL auto-injector Use per directed for severe allergic reaction 2 Each 1 lancets (PhagenesisTOUCH DELICA PLUS LANCET) 33 gauge Test blood sugar(s) 1 times daily. Dx: Type 2 DM - Controlled E11.9 Insulin: No 100 Each 11 blood sugar diagnostic (PhagenesisTOUCH ULTRA TEST) test strip use 1 TEST STRIP to TEST BLOOD SUGAR once daily 50 Strip 11 levalbuterol tartrate HFA (XOPENEX HFA) 45 mcg/actuation inhaler Inhale 1-2 Puffs as instructed every 4 hours as needed. 1 Inhaler 2 triamcinolone acetonide (KENALOG) 0.1 % cream Apply to affected area twice daily. For 7-10 days. (Patient not taking: Reported on 03/28/2023) 45 g 0 Blood-Glucose Meter Dispense 1 kit 1 Each 0 Current Facility-Administered Medications Medication Dose Route Frequency Provider Last Rate Last Admin perflutren lipid microspheres 1.3 mL in NaCl (PF) 0.9% 10 mL injection (DEFINITY) INTRAVENOUS DIRECTED PRN Leda Brown APRN.CNP sodium chloride 0.9 % (flush) 10 mL (BD POSIFLUSH) 10 mL INTRAVENOUS DIRECTED PRN Leda Brown APRN.CNP PAST SURGICAL HISTORY Procedure Laterality Date D AND C HYSTERECTOMY LAPAROSCOPY DIAGNOSTIC PAST SURGICAL HISTORY OF 7 sinus surgeries PAST SURGICAL HISTORY OF bilateral cataract surgeries TONSILLECTOMY HX FAMILY HISTORY Problem Relation Age of Onset Heart Mother stents Hypertension Mother other (pacemaker) Mother other (enlarged heart) Mother other (vertigo) Mother Prostate Cancer Father other (sjogrens) Sister Social History Tobacco Use Smoking status: Never Smokeless tobacco: Never Vaping Use Vaping Use: Never used Substance Use Topics Alcohol use: Not Currently Drug use: Never Objective BP 151/83 Pulse 77 Temp 36.6 ?C (97.9 ?F) Resp 18 Wt 84.5 kg (186 lb 3.2 oz) SpO2 98% BMI 32.47 kg/m? Physical Exam Vitals reviewed. Constitutional: (more content not included)... [facility] 04-16-2023 History of Present illness Narrative This note was created using [employer]. Subjective Cassia Holland is a 57 year old female. HPI Presents with nausea, low-grade fever, body aches since this morning. She states she was exposed to COVID and influenza. She was [place] her [place] [facility] [place] [facility] and it was going [place] the [place] [facility]. She also was exposed to COVID by her friend recently. No cough. Some mild congestion. No diarrhea or vomiting. She does have a history of interstitial lung disease, diabetes, lupus. Review of Systems Constitutional: Positive for fatigue and fever. HENT: Positive for congestion. Negative for ear pain and sore throat. Respiratory: Negative. Cardiovascular: Negative. Gastrointestinal: Positive for nausea. Negative for abdominal pain, diarrhea and vomiting. Genitourinary: Negative. Musculoskeletal: Positive for myalgias. Neurological: Positive for headaches. All other systems reviewed and are negative. PAST MEDICAL HISTORY Diagnosis Date Diabetes (HCC) adult onset Fibromyalgia Graves disease High blood pressure HSV-2 infection Interstitial lung disease (HCC) Lupus (HCC) Mixed connective tissue disease (HCC) Raynaud disease Current Outpatient Medications Medication Sig Dispense Refill dilTIAZem CD (CARDIZEM CD) 180 mg 24 hr capsule Take 180 mg by mouth once daily. fluticasone (FLONASE) 50 mcg/actuation nasal spray instill 2 sprays into each nostril once daily 16 g 2 budesonide (PULMICORT) 1 mg/2 mL nebulizer solution INSTILL RESPULE IN NASAL SALINE WASHES AND USE TWICE DAILY 120 mL 2 montelukast (SINGULAIR) 10 mg tablet take 1 tablet by mouth once daily 90 tablet 3 apixaban (ELIQUIS) 5 mg tab(s) Take 5 mg by mouth two times a day. pravastatin sodium (PRAVASTATIN ORAL) Take by mouth. clopidogrel (PLAVIX) 75 mg tablet take 4 tablets by mouth on day 1 then 1 tablet by mouth once daily after losartan (COZAAR) 100 mg tablet Take 0.5 tablets by mouth once daily. 30 tablet 5 citalopram (CELEXA) 20 mg tablet Take 1 tablet by mouth once daily. 30 tablet 5 metFORMIN ER (GLUCOPHAGE XR) 500 mg 24 hr tablet Take 2 tablets by mouth twice daily with meals. 360 tablet 1 hydroCHLOROthiazide 25 mg tablet take 1 tablet by mouth once daily 30 tablet 4 amLODIPine (NORVASC) 5 mg tablet take 1 tablet by mouth once daily 30 tablet 1 carvedilol (COREG) 6.25 mg tablet Take 6.25 mg by mouth twice daily with meals. ondansetron orally disintegrating (ZOFRAN ODT) 4 mg disintegrating tablet Take 1 tablet by mouth every 6 hours as needed for nausea/vomiting. 30 tablet 1 nystatin (MYCOSTATIN) powder Apply 1 application to affected area three times daily. 30 g 3 lansoprazole (PREVACID) 30 mg capsule Take 1 capsule by mouth daily before breakfast. 1/2 hr before meal. 30 capsule 11 naproxen (NAPROSYN) 500 mg tablet take 1 tablet by mouth twice a day with food if needed for PAIN/INFLAMMATION 30 tablet 1 EPINEPHrine (EPIPEN) 0.3 mg/0.3 mL auto-injector Use per directed for severe allergic reaction 2 Each 1 lancets (ONETOUCH DELICA PLUS LANCET) 33 gauge Test blood sugar(s) 1 times daily. Dx: Type 2 DM - Controlled E11.9 Insulin: No 100 Each 11 blood sugar diagnostic (ONETOUCH ULTRA TEST) test strip use 1 TEST STRIP to TEST BLOOD SUGAR once daily 50 Strip 11 levalbuterol tartrate HFA (XOPENEX HFA) 45 mcg/actuation inhaler Inhale 1-2 Puffs as instructed every 4 hours as needed. 1 Inhaler 2 triamcinolone acetonide (KENALOG) 0.1 % cream Apply to affected area twice daily. For 7-10 days. (Patient not taking: Reported on 03/28/2023) 45 g 0 Blood-Glucose Meter Dispense 1 kit 1 Each 0 Current Facility-Administered Medications Medication Dose Route Frequency Provider Last Rate Last Admin perflutren lipid microspheres 1.3 mL in NaCl (PF) 0.9% 10 mL injection (DEFINITY) INTRAVENOUS DIRECTED PRN Leda Brown APRN.ANTHONY sodium chloride 0.9 % (flush) 10 mL (BD POSIFLUSH) 10 mL INTRAVENOUS DIRECTED PRN Leda Brown APRN.GIRLS SWIMMING COACH PAST SURGICAL HISTORY Procedure Laterality Date D AND C HYSTERECTOMY LAPAROSCOPY DIAGNOSTIC PAST SURGICAL HISTORY OF 7 sinus surgeries PAST SURGICAL HISTORY OF bilateral cataract surgeries TONSILLECTOMY HX FAMILY HISTORY Problem Relation Age of Onset Heart Mother stents Hypertension Mother other (pacemaker) Mother other (enlarged heart) Mother other (vertigo) Mother Prostate Cancer Father other (sjogrens) Sister Social History Tobacco Use Smoking status: Never Smokeless tobacco: Never Vaping Use Vaping Use: Never used Substance Use Topics Alcohol use: Not Currently Drug use: Never Objective BP 151/83 Pulse 77 Temp 36.6 C (97.9 F) Resp 18 Wt 84.5 kg (186 lb 3.2 oz) SpO2 98% BMI 32.47 kg/m Physical Exam Vitals reviewed. Constitutional: Appearance: Normal appearance. HENT: Head: Normocephalic and atraumatic. Right Ear: Tympanic membrane, ear canal and external ear normal. Left Ear: Tympanic membrane, ear canal and external ear normal. Nose: Nose normal. Mouth/Throat: Mouth: Mucous membranes are moist. Pharynx: Oropharynx is clear. Cardiovascular: Rate and Rhythm: Normal rate and regular rhythm. Heart sounds: Normal heart sounds. Pulmonary: Effort: Pulmonary effort is normal. Breath sounds: Normal breath sounds. Musculoskeletal: Cervical back: Neck supple. Skin: General: Skin is warm and dry. Neurological: Mental Status: She is alert. Assessment and Plan ASSESSMENT/PLAN: 1. Viral illness - ICD9: 079.99, ICD10: B34.9 - Discussed viral etiology and rationale for treatment. - Symptomatic treatment with prn analgesia - Supportive care with fluids and rest -Patient is in the window for both Tamiflu and Paxlovid or molnupiravir if positive for flu or COVID. Would recommend given her history. - COVID & INFLUENZA A/B & RSV NAAT, ROUTINE Rubi Araya PA-C documented in this encounter [facility] 03-28-2023 Note HNO ID: [id number] Author: Leda Brown APRN.GIRLS SWIMMING COACH Service: ? Author Type: Nurse Practitioner Type: Progress Notes Filed: 03/28/2023 4:05 PM Note Text: CC: Patient presents with: Follow Up: Hypertension and thyroid HPI Cassia Holland is a 57 year old female who presents today for new onset A-fib. Has been in the ER again at [facility] for palpitations since last being seen for new onset A-fib found in other ER visit 4 weeks ago. Saw her pulper and is scheduling an ablation. Records not available for review. Per patient they switched her BP pills at request of pulper. Per cardiology note. Amlodipine was stopped and cardizem increased. No further palpitations, chest pain, or shortness of breath. BP at home ranges 130s/70s REVIEW OF SYSTEMS General: no fevers, no chills, no night sweats, no recurrent infections, no change in appetite, no change in energy, and no significant changes in weight Respiratory: no cough, no wheezing, no shortness of breath, no hemoptysis Cardiovascular: no chest pain, no chest pressure, no palpitations, and no swelling Neurologic: No headache, weakness memory loss, syncope. PAST MEDICAL HISTORY Diagnosis Date Diabetes (HCC) adult onset Fibromyalgia Graves disease High blood pressure HSV-2 infection Interstitial lung disease (HCC) Lupus (HCC) Mixed connective tissue disease (HCC) Raynaud disease PAST SURGICAL HISTORY Procedure Laterality Date D AND C HYSTERECTOMY LAPAROSCOPY DIAGNOSTIC PAST SURGICAL HISTORY OF 7 sinus surgeries PAST SURGICAL HISTORY OF bilateral cataract surgeries TONSILLECTOMY HX ALLERGIES Cantaloupe, Levaquin [Levofloxacin], and Sulfa (Sulfonamide Antibiotics) MEDICATIONS dilTIAZem CD (CARDIZEM CD) 180 mg 24 hr capsuleTake 180 mg by mouth once daily.Disp: Rfl: fluticasone (FLONASE) 50 mcg/actuation nasal sprayinstill 2 sprays into each nostril once dailyDisp: 16 gRfl: 2 budesonide (PULMICORT) 1 mg/2 mL nebulizer solutionINSTILL RESPULE IN NASAL SALINE WASHES AND USE TWICE DAILYDisp: 120 mLRfl: 2 montelukast (SINGULAIR) 10 mg tablettake 1 tablet by mouth once dailyDisp: 90 tabletRfl: 3 apixaban (ELIQUIS) 5 mg tab(s)Take 5 mg by mouth two times a day.Disp: Rfl: pravastatin sodium (PRAVASTATIN ORAL)Take by mouth.Disp: Rfl: clopidogrel (PLAVIX) 75 mg tablettake 4 tablets by mouth on day 1 then 1 tablet by mouth once daily afterDisp: Rfl: losartan (COZAAR) 100 mg tabletTake 0.5 tablets by mouth once daily.Disp: 30 tabletRfl: 5 citalopram (CELEXA) 20 mg tabletTake 1 tablet by mouth once daily.Disp: 30 tabletRfl: 5 metFORMIN ER (GLUCOPHAGE XR) 500 mg 24 hr tabletTake 2 tablets by mouth twice daily with meals.Disp: 360 tabletRfl: 1 hydroCHLOROthiazide 25 mg tablettake 1 tablet by mouth once dailyDisp: 30 tabletRfl: 4 amLODIPine (NORVASC) 5 mg tablettake 1 tablet by mouth once dailyDisp: 30 tabletRfl: 1 carvedilol (COREG) 6.25 mg tabletTake 6.25 mg by mouth twice daily with meals.Disp: Rfl: nystatin (MYCOSTATIN) powderApply 1 application to affected area three times daily.Disp: 30 gRfl: 3 lansoprazole (PREVACID) 30 mg capsuleTake 1 capsule by mouth daily before breakfast. 1/2 hr before meal.Disp: 30 capsuleRfl: 11 naproxen (NAPROSYN) 500 mg tablettake 1 tablet by mouth twice a day with food if needed for PAIN/INFLAMMATIONDisp: 30 tabletRfl: 1 EPINEPHrine (EPIPEN) 0.3 mg/0.3 mL auto-injectorUse per directed for severe allergic reactionDisp: 2 EachRfl: 1 lancets (PhagenesisTOUCH DELICA PLUS LANCET) 33 gaugeTest blood sugar(s) 1 times daily. Dx: Type 2 DM - Controlled E11.9 Insulin: NoDisp: 100 EachRfl: 11 blood sugar diagnostic (ONETOUCH ULTRA TEST) test stripuse 1 TEST STRIP to TEST BLOOD SUGAR once dailyDisp: 50 StripRfl: 11 levalbuterol tartrate HFA (XOPENEX HFA) 45 mcg/actuation inhalerInhale 1-2 Puffs as instructed every 4 hours as needed.Disp: 1 InhalerRfl: 2 Blood-Glucose MeterDispense 1 kitDisp: 1 EachRfl: 0 ondansetron orally disintegrating (ZOFRAN ODT) 4 mg disintegrating tabletTake 1 tablet by mouth every 6 hours as needed for nausea/vomiting.Disp: 30 tabletRfl: 1 triamcinolone acetonide (KENALOG) 0.1 % creamApply to affected area twice daily. For 7-10 days.Disp: 45 gRfl: 0 (Patient not taking: Reported on 03/28/2023) FAMILY HISTORY Problem Relation Age of Onset Heart Mother stents Hypertension Mother other (pacemaker) Mother other (enlarged heart) Mother other (vertigo) Mother Prostate Cancer Father other (sjogrens) Sister Social History Tobacco Use Smoking status: Never Smokeless tobacco: Never Vaping Use Vaping Use: Never used Substance Use Topics Alcohol use: Not Currently Drug use: Never PHYSICAL EXAM BP 144/88 (BP Site: Left Arm, BP Position: Sitting, BP Cuff Size: Regular Adult) Pulse 74 Resp 16 Wt 84.8 kg (187 lb) SpO2 99% BMI 32.61 kg/m? General Appearance: well appearing, in no acute distress, alert P (more content not included)... [facility] 03-28-2023 History of Present illness Narrative CC: Patient presents with: Follow Up: Hypertension and thyroid HPI Cassia Holland is a 57 year old female who presents today for new onset A-fib. Has been in the ER again at [facility] for palpitations since last being seen for new onset A-fib found in other ER visit 4 weeks ago. Saw her pulper and is scheduling an ablation. Records not available for review. Per patient they switched her BP pills at request of pulper. Per cardiology note. Amlodipine was stopped and cardizem increased. No further palpitations, chest pain, or shortness of breath. BP at home ranges 130s/70s REVIEW OF SYSTEMS General: no fevers, no chills, no night sweats, no recurrent infections, no change in appetite, no change in energy, and no significant changes in weight Respiratory: no cough, no wheezing, no shortness of breath, no hemoptysis Cardiovascular: no chest pain, no chest pressure, no palpitations, and no swelling Neurologic: No headache, weakness memory loss, syncope. PAST MEDICAL HISTORY Diagnosis Date Diabetes (HCC) adult onset Fibromyalgia Graves disease High blood pressure HSV-2 infection Interstitial lung disease (HCC) Lupus (HCC) Mixed connective tissue disease (HCC) Raynaud disease PAST SURGICAL HISTORY Procedure Laterality Date D AND C HYSTERECTOMY LAPAROSCOPY DIAGNOSTIC PAST SURGICAL HISTORY OF 7 sinus surgeries PAST SURGICAL HISTORY OF bilateral cataract surgeries TONSILLECTOMY HX ALLERGIES Cantaloupe, Levaquin [Levofloxacin], and Sulfa (Sulfonamide Antibiotics) MEDICATIONS dilTIAZem CD (CARDIZEM CD) 180 mg 24 hr capsule^Take 180 mg by mouth once daily.^Disp: ^Rfl: fluticasone (FLONASE) 50 mcg/actuation nasal spray^instill 2 sprays into each nostril once daily^Disp: 16 g^Rfl: 2 budesonide (PULMICORT) 1 mg/2 mL nebulizer solution^INSTILL RESPULE IN NASAL SALINE WASHES AND USE TWICE DAILY^Disp: 120 mL^Rfl: 2 montelukast (SINGULAIR) 10 mg tablet^take 1 tablet by mouth once daily^Disp: 90 tablet^Rfl: 3 apixaban (ELIQUIS) 5 mg tab(s)^Take 5 mg by mouth two times a day.^Disp: ^Rfl: pravastatin sodium (PRAVASTATIN ORAL)^Take by mouth.^Disp: ^Rfl: clopidogrel (PLAVIX) 75 mg tablet^take 4 tablets by mouth on day 1 then 1 tablet by mouth once daily after^Disp: ^Rfl: losartan (COZAAR) 100 mg tablet^Take 0.5 tablets by mouth once daily.^Disp: 30 tablet^Rfl: 5 citalopram (CELEXA) 20 mg tablet^Take 1 tablet by mouth once daily.^Disp: 30 tablet^Rfl: 5 metFORMIN ER (GLUCOPHAGE XR) 500 mg 24 hr tablet^Take 2 tablets by mouth twice daily with meals.^Disp: 360 tablet^Rfl: 1 hydroCHLOROthiazide 25 mg tablet^take 1 tablet by mouth once daily^Disp: 30 tablet^Rfl: 4 amLODIPine (NORVASC) 5 mg tablet^take 1 tablet by mouth once daily^Disp: 30 tablet^Rfl: 1 carvedilol (COREG) 6.25 mg tablet^Take 6.25 mg by mouth twice daily with meals.^Disp: ^Rfl: nystatin (MYCOSTATIN) powder^Apply 1 application to affected area three times daily.^Disp: 30 g^Rfl: 3 lansoprazole (PREVACID) 30 mg capsule^Take 1 capsule by mouth daily before breakfast. 1/2 hr before meal.^Disp: 30 capsule^Rfl: 11 naproxen (NAPROSYN) 500 mg tablet^take 1 tablet by mouth twice a day with food if needed for PAIN/INFLAMMATION^Disp: 30 tablet^Rfl: 1 EPINEPHrine (EPIPEN) 0.3 mg/0.3 mL auto-injector^Use per directed for severe allergic reaction^Disp: 2 Each^Rfl: 1 lancets ([employer] DELICA PLUS LANCET) 33 gauge^Test blood sugar(s) 1 times daily. Dx: Type 2 DM - Controlled E11.9 Insulin: No^Disp: 100 Each^Rfl: 11 blood sugar diagnostic (PostachioUCH ULTRA TEST) test strip^use 1 TEST STRIP to TEST BLOOD SUGAR once daily^Disp: 50 Strip^Rfl: 11 levalbuterol tartrate HFA (XOPENEX HFA) 45 mcg/actuation inhaler^Inhale 1-2 Puffs as instructed every 4 hours as needed.^Disp: 1 Inhaler^Rfl: 2 Blood-Glucose Meter^Dispense 1 kit^Disp: 1 Each^Rfl: 0 ondansetron orally disintegrating (ZOFRAN ODT) 4 mg disintegrating tablet^Take 1 tablet by mouth every 6 hours as needed for nausea/vomiting.^Disp: 30 tablet^Rfl: 1 triamcinolone acetonide (KENALOG) 0.1 % cream^Apply to affected area twice daily. For 7-10 days.^Disp: 45 g^Rfl: 0 (Patient not taking: Reported on 03/28/2023) FAMILY HISTORY Problem Relation Age of Onset Heart Mother stents Hypertension Mother other (pacemaker) Mother other (enlarged heart) Mother other (vertigo) Mother Prostate Cancer Father other (sjogrens) Sister Social History Tobacco Use Smoking status: Never Smokeless tobacco: Never Vaping Use Vaping Use: Never used Substance Use Topics Alcohol use: Not Currently Drug use: Never PHYSICAL EXAM BP 144/88 (BP Site: Left Arm, BP Position: Sitting, BP Cuff Size: Regular Adult) Pulse 74 Resp 16 Wt 84.8 kg (187 lb) SpO2 99% BMI 32.61 kg/m General Appearance: well appearing, in no acute distress, alert Pysch: mood and affect broad and appropriate Skin: Skin color, texture, turgor normal for age; Eyes: conjunctiva pink and moist, no icterus, sclera white, non-injected Lungs: Lungs clear to auscultation. No wheezing, rhonchi, rales. Heart: RRR without murmur, gallop, or rubs. No ectopy Health maintenance reviewed with patient: BP Controlled (<130/80) Never done Diabetic Foot Exam due on 03/07/2022 Depression Assessment Never done Influenza Vaccine(1) due on 01/05/2023 Covid-19 Vaccine(3 - 2022- season) due on 01/05/2023 Colorectal Cancer Screening due on 01/21/2023 DTaP,Tdap,Td Vaccine(1 - Tdap) due on 09/15/2023 Hepatitis B Vaccine(1 of 3 - 3-dose series) due on 09/15/2023 HPV Testing due on 09/15/2023 HIV Screening due on 09/15/2023 Shingrix Vaccine(1 of 2) due on 09/15/2023 Pneumococcal Vaccine(1 - PCV) due on 09/15/2023 HbA1C due on 08/30/2023 Dilated Retinal Exam due on 10/24/2023 Mammogram Screening due on 11/10/2023 Urine Albumin:Creatinine Ratio due on 12/08/2023 LDL Cholesterol due on 12/08/2023 Annual PCP Team Chronic Disease Visit due on 03/12/2024 Hepatitis C Screening Completed Pap Testing Discontinued DATA REVIEWED: Outside chart from [facility] reviewed. [facility] records requested ASSESSMENT/PLAN: 1. New onset a-fib (HCC) - ICD9: 427.31, ICD10: I48.91 - stable with current medications - continue with current medications and recommendations by cardiology - follow up in 6-8 weeks for routine appointment. Prescription instructions reviewed with patient as applicable. Potential red flag symptoms discussed with the patient. Reviewed appropriate action plan to take if red flag symptoms occur. Patient agreeable to treatment plan. Leda Brown APRN.CNP documented in this encounter [facility] 03-20-2023 Miscellaneous Notes Patient has been identified by name and date of : Yes Pharmacy phones for refill(s): Requested Prescriptions Pending Prescriptions Disp Refills fluticasone (FLONASE) 50 mcg/actuation nasal spray [Pharmacy Med Name: FLUTICASONE PROP 50 MCG SPRAY] 16 g Sig: instill 2 sprays into each nostril once daily Date of last office visit in primary care: 02/28/2023 Date of next office visit in primary care: 03/28/2023 Please advise. Thank you. Elicia Gardner LPN. documented in this encounter [facility] 03-15-2023 Miscellaneous Notes Was reviewed in appointment with Alexandre. Leda Brown APRN.GIR[employer]ING COACH documented in this encounter [facility] 03-12-2023 Note HNO ID: [id number] Author: Alexandre Campa PA-C Service: ? Author Type: Physician Account Adjuster Type: Progress Notes Filed: 03/13/2023 4:47 PM Note Text: CC: Patient presents with: Same Day Appointment: sick not feeling well, sore throat, ear pain, temp this weekend,coughing HPI Cassia Holland is a 57 year old female who presents today for persistent respiratory symptoms (both upper and lower) since January (since she was initially seen in 01/27) . Things seemed to get worse again over the weekend. Had temp of 100.6 on Sunday. C/o ears throat, throat sore and red, achiness like the flu. Has little to no appetite, whatever she does eat - she can't taste it well. Has been coughing up clear sputum when I get something up. Has been sick since she was seen at the in 01/27. Has had extensive sinus issues in the past, having had 7 sinus surgeries previously. Most recently, had been txed by Dr. Wilder Anguiano with Doxycyline (this was the second round). Prior to that, she was on Augmentinx 2. REVIEW OF SYSTEMS See HPI All other systems negative. PAST MEDICAL HISTORY Diagnosis Date Diabetes (HCC) adult onset Fibromyalgia Graves disease High blood pressure HSV-2 infection Interstitial lung disease (HCC) Lupus (HCC) Mixed connective tissue disease (HCC) Raynaud disease PAST SURGICAL HISTORY Procedure Laterality Date D AND C HYSTERECTOMY LAPAROSCOPY DIAGNOSTIC PAST SURGICAL HISTORY OF 7 sinus surgeries PAST SURGICAL HISTORY OF bilateral cataract surgeries TONSILLECTOMY HX ALLERGIES Cantaloupe, Levaquin [Levofloxacin], and Sulfa (Sulfonamide Antibiotics) MEDICATIONS montelukast (SINGULAIR) 10 mg tablettake 1 tablet by mouth once dailyDisp: 90 tabletRfl: 3 apixaban (ELIQUIS) 5 mg tab(s)Take 5 mg by mouth two times a day.Disp: Rfl: pravastatin sodium (PRAVASTATIN ORAL)Take by mouth.Disp: Rfl: clopidogrel (PLAVIX) 75 mg tablettake 4 tablets by mouth on day 1 then 1 tablet by mouth once daily afterDisp: Rfl: losartan (COZAAR) 100 mg tabletTake 0.5 tablets by mouth once daily.Disp: 30 tabletRfl: 5 citalopram (CELEXA) 20 mg tabletTake 1 tablet by mouth once daily.Disp: 30 tabletRfl: 5 metFORMIN ER (GLUCOPHAGE XR) 500 mg 24 hr tabletTake 2 tablets by mouth twice daily with meals.Disp: 360 tabletRfl: 1 hydroCHLOROthiazide 25 mg tablettake 1 tablet by mouth once dailyDisp: 30 tabletRfl: 4 amLODIPine (NORVASC) 5 mg tablettake 1 tablet by mouth once dailyDisp: 30 tabletRfl: 1 carvedilol (COREG) 6.25 mg tabletTake 6.25 mg by mouth twice daily with meals.Disp: Rfl: ondansetron orally disintegrating (ZOFRAN ODT) 4 mg disintegrating tabletTake 1 tablet by mouth every 6 hours as needed for nausea/vomiting.Disp: 30 tabletRfl: 1 nystatin (MYCOSTATIN) powderApply 1 application to affected area three times daily.Disp: 30 gRfl: 3 lansoprazole (PREVACID) 30 mg capsuleTake 1 capsule by mouth daily before breakfast. 1/2 hr before meal.Disp: 30 capsuleRfl: 11 naproxen (NAPROSYN) 500 mg tablettake 1 tablet by mouth twice a day with food if needed for PAIN/INFLAMMATIONDisp: 30 tabletRfl: 1 EPINEPHrine (EPIPEN) 0.3 mg/0.3 mL auto-injectorUse per directed for severe allergic reactionDisp: 2 EachRfl: 1 lancets (ONETOUCH DELICA PLUS LANCET) 33 gaugeTest blood sugar(s) 1 times daily. Dx: Type 2 DM - Controlled E11.9 Insulin: NoDisp: 100 EachRfl: 11 blood sugar diagnostic (ONETOUCH ULTRA TEST) test stripuse 1 TEST STRIP to TEST BLOOD SUGAR once dailyDisp: 50 StripRfl: 11 levalbuterol tartrate HFA (XOPENEX HFA) 45 mcg/actuation inhalerInhale 1-2 Puffs as instructed every 4 hours as needed.Disp: 1 InhalerRfl: 2 budesonide (PULMICORT) 1 mg/2 mL nebulizer solutionINSTILL RESPULE IN NASAL SALINE WASHES AND USE TWICE DAILYDisp: 120 mLRfl: 2 Blood-Glucose MeterDispense 1 kitDisp: 1 EachRfl: 0 fluticasone (FLONASE) 50 mcg/actuation nasal sprayUse 2 Sprays in each nostril once daily.Disp: 1 EachRfl: 3 triamcinolone acetonide (KENALOG) 0.1 % creamApply to affected area twice daily. For 7-10 days.Disp: 45 gRfl: 0 FAMILY HISTORY Problem Relation Age of Onset Heart Mother stents Hypertension Mother other (pacemaker) Mother other (enlarged heart) Mother other (vertigo) Mother Prostate Cancer Father other (sjogrens) Sister Social History Tobacco Use Smoking status: Never Smokeless tobacco: Never Vaping Use Vaping Use: Never used Substance Use Topics Alcohol use: Not Currently Drug use: Never PHYSICAL EXAM BP 138/70 (BP Site: Left Arm, BP Position: Sitting, BP Cuff Size: Large Adult) Pulse 78 Temp 36.7 ?C (98 ?F) Resp 12 Ht 161.3 cm (5' 3.5 ) Wt 83 kg (183 lb) SpO2 99% BMI 31.91 kg/m? General Appearance: well appearing, in no acute distress, alert Pysch: mood and affect broad and appropriate Skin: Skin color, texture, turgor normal for age; Eyes: conjunctiva pink and moist, no icterus, sclera white, non-i (more content not included)... [facility] 03-12-2023 History of Present illness Narrative CC: Patient presents with: Same Day Appointment: sick not feeling well, sore throat, ear pain, temp this weekend,coughing HPI Cassia Holland is a 57 year old female who presents today for persistent respiratory symptoms (both upper and lower) since January (since she was initially seen in 01/27) . Things seemed to get worse again over the weekend. Had temp of 100.6 on Sunday. C/o ears throat, throat sore and red, achiness like the flu. Has little to no appetite, whatever she does eat - she can't taste it well. Has been coughing up clear sputum when I get something up. Has been sick since she was seen at the in 01/27. Has had extensive sinus issues in the past, having had 7 sinus surgeries previously. Most recently, had been txed by Dr. Wilder Anguiano with Doxycyline (this was the second round). Prior to that, she was on Augmentinx 2. REVIEW OF SYSTEMS See HPI All other systems negative. PAST MEDICAL HISTORY Diagnosis Date Diabetes (HCC) adult onset Fibromyalgia Graves disease High blood pressure HSV-2 infection Interstitial lung disease (HCC) Lupus (HCC) Mixed connective tissue disease (HCC) Raynaud disease PAST SURGICAL HISTORY Procedure Laterality Date D AND C HYSTERECTOMY LAPAROSCOPY DIAGNOSTIC PAST SURGICAL HISTORY OF 7 sinus surgeries PAST SURGICAL HISTORY OF bilateral cataract surgeries TONSILLECTOMY HX ALLERGIES Cantaloupe, Levaquin [Levofloxacin], and Sulfa (Sulfonamide Antibiotics) MEDICATIONS montelukast (SINGULAIR) 10 mg tablet^take 1 tablet by mouth once daily^Disp: 90 tablet^Rfl: 3 apixaban (ELIQUIS) 5 mg tab(s)^Take 5 mg by mouth two times a day.^Disp: ^Rfl: pravastatin sodium (PRAVASTATIN ORAL)^Take by mouth.^Disp: ^Rfl: clopidogrel (PLAVIX) 75 mg tablet^take 4 tablets by mouth on day 1 then 1 tablet by mouth once daily after^Disp: ^Rfl: losartan (COZAAR) 100 mg tablet^Take 0.5 tablets by mouth once daily.^Disp: 30 tablet^Rfl: 5 citalopram (CELEXA) 20 mg tablet^Take 1 tablet by mouth once daily.^Disp: 30 tablet^Rfl: 5 metFORMIN ER (GLUCOPHAGE XR) 500 mg 24 hr tablet^Take 2 tablets by mouth twice daily with meals.^Disp: 360 tablet^Rfl: 1 hydroCHLOROthiazide 25 mg tablet^take 1 tablet by mouth once daily^Disp: 30 tablet^Rfl: 4 amLODIPine (NORVASC) 5 mg tablet^take 1 tablet by mouth once daily^Disp: 30 tablet^Rfl: 1 carvedilol (COREG) 6.25 mg tablet^Take 6.25 mg by mouth twice daily with meals.^Disp: ^Rfl: ondansetron orally disintegrating (ZOFRAN ODT) 4 mg disintegrating tablet^Take 1 tablet by mouth every 6 hours as needed for nausea/vomiting.^Disp: 30 tablet^Rfl: 1 nystatin (MYCOSTATIN) powder^Apply 1 application to affected area three times daily.^Disp: 30 g^Rfl: 3 lansoprazole (PREVACID) 30 mg capsule^Take 1 capsule by mouth daily before breakfast. 1/2 hr before meal.^Disp: 30 capsule^Rfl: 11 naproxen (NAPROSYN) 500 mg tablet^take 1 tablet by mouth twice a day with food if needed for PAIN/INFLAMMATION^Disp: 30 tablet^Rfl: 1 EPINEPHrine (EPIPEN) 0.3 mg/0.3 mL auto-injector^Use per directed for severe allergic reaction^Disp: 2 Each^Rfl: 1 lancets (PhagenesisTOUCH DELICA PLUS LANCET) 33 gauge^Test blood sugar(s) 1 times daily. Dx: Type 2 DM - Controlled E11.9 Insulin: No^Disp: 100 Each^Rfl: 11 blood sugar diagnostic (ONETOUCH ULTRA TEST) test strip^use 1 TEST STRIP to TEST BLOOD SUGAR once daily^Disp: 50 Strip^Rfl: 11 levalbuterol tartrate HFA (XOPENEX HFA) 45 mcg/actuation inhaler^Inhale 1-2 Puffs as instructed every 4 hours as needed.^Disp: 1 Inhaler^Rfl: 2 budesonide (PULMICORT) 1 mg/2 mL nebulizer solution^INSTILL RESPULE IN NASAL SALINE WASHES AND USE TWICE DAILY^Disp: 120 mL^Rfl: 2 Blood-Glucose Meter^Dispense 1 kit^Disp: 1 Each^Rfl: 0 fluticasone (FLONASE) 50 mcg/actuation nasal spray^Use 2 Sprays in each nostril once daily.^Disp: 1 Each^Rfl: 3 triamcinolone acetonide (KENALOG) 0.1 % cream^Apply to affected area twice daily. For 7-10 days.^Disp: 45 g^Rfl: 0 FAMILY HISTORY Problem Relation Age of Onset Heart Mother stents Hypertension Mother other (pacemaker) Mother other (enlarged heart) Mother other (vertigo) Mother Prostate Cancer Father other (sjogrens) Sister Social History Tobacco Use Smoking status: Never Smokeless tobacco: Never Vaping Use Vaping Use: Never used Substance Use Topics Alcohol use: Not Currently Drug use: Never PHYSICAL EXAM BP 138/70 (BP Site: Left Arm, BP Position: Sitting, BP Cuff Size: Large Adult) Pulse 78 Temp 36.7 C (98 F) Resp 12 Ht 161.3 cm (5' 3.5 ) Wt 83 kg (183 lb) SpO2 99% BMI 31.91 kg/m General Appearance: well appearing, in no acute distress, alert Pysch: mood and affect broad and appropriate Skin: Skin color, texture, turgor normal for age; Eyes: conjunctiva pink and moist, no icterus, sclera white, non-injected Ears: external ears normal to inspection and palpation, canals clear, Left tympanic membrane normal. , Right tympanic membrane normal Nose/sinus: purulent rhinorrhea noted left nare, possible polyp noted ipsilateral side Oropharynx: moist mucus membranes. Lymph nodes: No cervical lymphadenopathy and No supraclavicular lymphadenopathy Lungs: Lungs clear to auscultation. No wheezing, rhonchi, rales. Heart: RRR without murmur, gallop, or rubs. No ectopy Neurological: Gait normal. Reflexes normal and symmetric. Sensation grossly intact. ASSESSMENT/PLAN: 1. Chronic sinusitis, unspecified location - ICD9: 473.9, ICD10: J32.9 -Patient with extensive history of chronic/recurring sinus disease. Has been on multiple rounds of antibiotics, including Augmentin x3, and doxycycline x2. Covid and flu testing ordered; Results will be released to [facility] in 24-48 hours. Explained to patient that her situation is more complex than your typical acute sinusitis, and is clearly not responding to the oral antibiotics we placed her on thus far. Advised prompt consult with ENT so they can perform appropriate evaluation such as CT scan of sinuses and nasal endoscopy Rx for Bactroban to use with [facility] med irrigations in the interim. Prescription instructions reviewed with patient as applicable. Potential red flag symptoms discussed with the patient. Reviewed appropriate action plan to take if red flag symptoms occur. Patient agreeable to treatment plan. Alexandre Campa PA-C documented in this encounter [facility] 03-01-2023 Miscellaneous Notes Patient last visit 02/28/23 Follow up appointment scheduled 03/28/23 Chanel Azevedo Ma documented in this encounter [facility] 02-28-2023 Note HNO ID: [id number] Author: Leda Brown APRN.[employer] COACH Service: ? Author Type: Nurse Practitioner Type: Progress Notes Filed: 03/01/2023 4:46 PM Note Text: CC: Patient presents with: Recheck: ER follow up, AFIB HPI Cassia Holland is a 57 year old female who presents today for routine follow-up but was in ER yesterday for new onset A-fib. Facility: [facility] Date of visit: 02/27/23. Sudden onset of odd feeling, heart was racing, and also with visual disturbances. Hospital course: labs unremarkable but no thyroid or mag checked. EKG showed A-fib with RVR at 106 Diagnosis: new onset A-fib Discharge: increased carvedilol and started on eliquis for DVT prophylaxis. Current symptoms: no further chest pressure or palpitations. Has not scheduled follow up with cardiology yet. REVIEW OF SYSTEMS General: no fevers, no chills, no night sweats, no recurrent infections, no change in appetite, no change in energy, and no significant changes in weight Respiratory: no cough, no wheezing, no shortness of breath, no hemoptysis Cardiovascular: no chest pain, no chest pressure, no palpitations, and no swelling Neurologic: No headache, weakness, dizziness, memory loss, syncope. PAST MEDICAL HISTORY Diagnosis Date Diabetes (HCC) adult onset Fibromyalgia Graves disease High blood pressure HSV-2 infection Interstitial lung disease (HCC) Lupus (HCC) Mixed connective tissue disease (HCC) Raynaud disease PAST SURGICAL HISTORY Procedure Laterality Date D AND C HYSTERECTOMY LAPAROSCOPY DIAGNOSTIC PAST SURGICAL HISTORY OF 7 sinus surgeries PAST SURGICAL HISTORY OF bilateral cataract surgeries TONSILLECTOMY HX ALLERGIES Cantaloupe, Levaquin [Levofloxacin], and Sulfa (Sulfonamide Antibiotics) MEDICATIONS apixaban (ELIQUIS) 5 mg tab(s)Take 5 mg by mouth two times a day.Disp: Rfl: clopidogrel (PLAVIX) 75 mg tablettake 4 tablets by mouth on day 1 then 1 tablet by mouth once daily afterDisp: Rfl: losartan (COZAAR) 100 mg tabletTake 0.5 tablets by mouth once daily.Disp: 30 tabletRfl: 5 citalopram (CELEXA) 20 mg tabletTake 1 tablet by mouth once daily.Disp: 30 tabletRfl: 5 metFORMIN ER (GLUCOPHAGE XR) 500 mg 24 hr tabletTake 2 tablets by mouth twice daily with meals.Disp: 360 tabletRfl: 1 fluticasone (FLONASE) 50 mcg/actuation nasal sprayUse 2 Sprays in each nostril once daily.Disp: 1 EachRfl: 3 hydroCHLOROthiazide 25 mg tablettake 1 tablet by mouth once dailyDisp: 30 tabletRfl: 4 amLODIPine (NORVASC) 5 mg tablettake 1 tablet by mouth once dailyDisp: 30 tabletRfl: 1 pravastatin sodium (PRAVASTATIN ORAL)Take by mouth.Disp: Rfl: carvedilol (COREG) 6.25 mg tabletTake 6.25 mg by mouth twice daily with meals.Disp: Rfl: ondansetron orally disintegrating (ZOFRAN ODT) 4 mg disintegrating tabletTake 1 tablet by mouth every 6 hours as needed for nausea/vomiting.Disp: 30 tabletRfl: 1 nystatin (MYCOSTATIN) powderApply 1 application to affected area three times daily.Disp: 30 gRfl: 3 lansoprazole (PREVACID) 30 mg capsuleTake 1 capsule by mouth daily before breakfast. 1/2 hr before meal.Disp: 30 capsuleRfl: 11 montelukast (SINGULAIR) 10 mg tablettake 1 tablet by mouth once dailyDisp: 30 tabletRfl: 11 naproxen (NAPROSYN) 500 mg tablettake 1 tablet by mouth twice a day with food if needed for PAIN/INFLAMMATIONDisp: 30 tabletRfl: 1 EPINEPHrine (EPIPEN) 0.3 mg/0.3 mL auto-injectorUse per directed for severe allergic reactionDisp: 2 EachRfl: 1 lancets (ONETOUCH DELICA PLUS LANCET) 33 gaugeTest blood sugar(s) 1 times daily. Dx: Type 2 DM - Controlled E11.9 Insulin: NoDisp: 100 EachRfl: 11 blood sugar diagnostic (ONETOUCH ULTRA TEST) test stripuse 1 TEST STRIP to TEST BLOOD SUGAR once dailyDisp: 50 StripRfl: 11 levalbuterol tartrate HFA (XOPENEX HFA) 45 mcg/actuation inhalerInhale 1-2 Puffs as instructed every 4 hours as needed.Disp: 1 InhalerRfl: 2 budesonide (PULMICORT) 1 mg/2 mL nebulizer solutionINSTILL RESPULE IN NASAL SALINE WASHES AND USE TWICE DAILYDisp: 120 mLRfl: 2 triamcinolone acetonide (KENALOG) 0.1 % creamApply to affected area twice daily. For 7-10 days.Disp: 45 gRfl: 0 Blood-Glucose MeterDispense 1 kitDisp: 1 EachRfl: 0 FAMILY HISTORY Problem Relation Age of Onset Heart Mother stents Hypertension Mother other (pacemaker) Mother other (enlarged heart) Mother other (vertigo) Mother Prostate Cancer Father other (sjogrens) Sister Social History Tobacco Use Smoking status: Never Smokeless tobacco: Never Vaping Use Vaping Use: Never used Substance Use Topics Alcohol use: Not Currently Drug use: Never PHYSICAL EXAM BP 142/82 Pulse 80 Resp 16 Wt 83.9 kg (185 lb) SpO2 99% BMI 32.26 kg/m? General Appearance: well appearing, in no acute distress, alert Pysch: mood and affect broad and appropriate Skin: Skin color, texture, turgor normal for age; Eyes: conjunctiva pink and moist, no icterus, sclera white, non (more content not included)... [facility] 02-28-2023 History of Present illness Narrative CC: Patient presents with: Recheck: ER follow up, AFIB HPI Cassia Holland is a 57 year old female who presents today for routine follow-up but was in ER yesterday for new onset A-fib. Facility: [facility] Date of visit: 02/27/23. Sudden onset of odd feeling, heart was racing, and also with visual disturbances. Hospital course: labs unremarkable but no thyroid or mag checked. EKG showed A-fib with RVR at 106 Diagnosis: new onset A-fib Discharge: increased carvedilol and started on eliquis for DVT prophylaxis. Current symptoms: no further chest pressure or palpitations. Has not scheduled follow up with cardiology yet. REVIEW OF SYSTEMS General: no fevers, no chills, no night sweats, no recurrent infections, no change in appetite, no change in energy, and no significant changes in weight Respiratory: no cough, no wheezing, no shortness of breath, no hemoptysis Cardiovascular: no chest pain, no chest pressure, no palpitations, and no swelling Neurologic: No headache, weakness, dizziness, memory loss, syncope. PAST MEDICAL HISTORY Diagnosis Date Diabetes (HCC) adult onset Fibromyalgia Graves disease High blood pressure HSV-2 infection Interstitial lung disease (HCC) Lupus (HCC) Mixed connective tissue disease (HCC) Raynaud disease PAST SURGICAL HISTORY Procedure Laterality Date D AND C HYSTERECTOMY LAPAROSCOPY DIAGNOSTIC PAST SURGICAL HISTORY OF 7 sinus surgeries PAST SURGICAL HISTORY OF bilateral cataract surgeries TONSILLECTOMY HX ALLERGIES Cantaloupe, Levaquin [Levofloxacin], and Sulfa (Sulfonamide Antibiotics) MEDICATIONS apixaban (ELIQUIS) 5 mg tab(s)^Take 5 mg by mouth two times a day.^Disp: ^Rfl: clopidogrel (PLAVIX) 75 mg tablet^take 4 tablets by mouth on day 1 then 1 tablet by mouth once daily after^Disp: ^Rfl: losartan (COZAAR) 100 mg tablet^Take 0.5 tablets by mouth once daily.^Disp: 30 tablet^Rfl: 5 citalopram (CELEXA) 20 mg tablet^Take 1 tablet by mouth once daily.^Disp: 30 tablet^Rfl: 5 metFORMIN ER (GLUCOPHAGE XR) 500 mg 24 hr tablet^Take 2 tablets by mouth twice daily with meals.^Disp: 360 tablet^Rfl: 1 fluticasone (FLONASE) 50 mcg/actuation nasal spray^Use 2 Sprays in each nostril once daily.^Disp: 1 Each^Rfl: 3 hydroCHLOROthiazide 25 mg tablet^take 1 tablet by mouth once daily^Disp: 30 tablet^Rfl: 4 amLODIPine (NORVASC) 5 mg tablet^take 1 tablet by mouth once daily^Disp: 30 tablet^Rfl: 1 pravastatin sodium (PRAVASTATIN ORAL)^Take by mouth.^Disp: ^Rfl: carvedilol (COREG) 6.25 mg tablet^Take 6.25 mg by mouth twice daily with meals.^Disp: ^Rfl: ondansetron orally disintegrating (ZOFRAN ODT) 4 mg disintegrating tablet^Take 1 tablet by mouth every 6 hours as needed for nausea/vomiting.^Disp: 30 tablet^Rfl: 1 nystatin (MYCOSTATIN) powder^Apply 1 application to affected area three times daily.^Disp: 30 g^Rfl: 3 lansoprazole (PREVACID) 30 mg capsule^Take 1 capsule by mouth daily before breakfast. 1/2 hr before meal.^Disp: 30 capsule^Rfl: 11 montelukast (SINGULAIR) 10 mg tablet^take 1 tablet by mouth once daily^Disp: 30 tablet^Rfl: 11 naproxen (NAPROSYN) 500 mg tablet^take 1 tablet by mouth twice a day with food if needed for PAIN/INFLAMMATION^Disp: 30 tablet^Rfl: 1 EPINEPHrine (EPIPEN) 0.3 mg/0.3 mL auto-injector^Use per directed for severe allergic reaction^Disp: 2 Each^Rfl: 1 lancets (ServerPilot DELICA PLUS LANCET) 33 gauge^Test blood sugar(s) 1 times daily. Dx: Type 2 DM - Controlled E11.9 Insulin: No^Disp: 100 Each^Rfl: 11 blood sugar diagnostic (PostachioUCH ULTRA TEST) test strip^use 1 TEST STRIP to TEST BLOOD SUGAR once daily^Disp: 50 Strip^Rfl: 11 levalbuterol tartrate HFA (XOPENEX HFA) 45 mcg/actuation inhaler^Inhale 1-2 Puffs as instructed every 4 hours as needed.^Disp: 1 Inhaler^Rfl: 2 budesonide (PULMICORT) 1 mg/2 mL nebulizer solution^INSTILL RESPULE IN NASAL SALINE WASHES AND USE TWICE DAILY^Disp: 120 mL^Rfl: 2 triamcinolone acetonide (KENALOG) 0.1 % cream^Apply to affected area twice daily. For 7-10 days.^Disp: 45 g^Rfl: 0 Blood-Glucose Meter^Dispense 1 kit^Disp: 1 Each^Rfl: 0 FAMILY HISTORY Problem Relation Age of Onset Heart Mother stents Hypertension Mother other (pacemaker) Mother other (enlarged heart) Mother other (vertigo) Mother Prostate Cancer Father other (sjogrens) Sister Social History Tobacco Use Smoking status: Never Smokeless tobacco: Never Vaping Use Vaping Use: Never used Substance Use Topics Alcohol use: Not Currently Drug use: Never PHYSICAL EXAM BP 142/82 Pulse 80 Resp 16 Wt 83.9 kg (185 lb) SpO2 99% BMI 32.26 kg/m General Appearance: well appearing, in no acute distress, alert Pysch: mood and affect broad and appropriate Skin: Skin color, texture, turgor normal for age; Eyes: conjunctiva pink and moist, no icterus, sclera white, non-injected Lungs: Lungs clear to auscultation. No wheezing, rhonchi, rales. Heart: RRR without murmur, gallop, or rubs. No ectopy Diabetic Foot Exam due on 03/07/2022 Depression Assessment Never done Influenza Vaccine(1) due on 01/05/2023 Covid-19 Vaccine(3 - 2022- season) due on 01/05/2023 Colorectal Cancer Screening due on 01/21/2023 DTaP,Tdap,Td Vaccine(1 - Tdap) due on 09/15/2023 Hepatitis B Vaccine(1 of 3 - 3-dose series) due on 09/15/2023 HPV Testing due on 09/15/2023 HIV Screening due on 09/15/2023 Shingrix Vaccine(1 of 2) due on 09/15/2023 Pneumococcal Vaccine(1 - PCV) due on 09/15/2023 HbA1C due on 03/17/2023 Dilated Retinal Exam due on 10/24/2023 Mammogram Screening due on 11/10/2023 Urine Albumin:Creatinine Ratio due on 12/08/2023 LDL Cholesterol due on 12/08/2023 Annual PCP Team Chronic Disease Visit due on 02/08/2024 BP Controlled (<130/80) due on 02/08/2024 Hepatitis C Screening Completed Pap Testing Discontinued DATA REVIEWED: Outside chart from [facility] reviewed. ASSESSMENT/PLAN: 1. New onset a-fib (HCC) - ICD9: 427.31, ICD10: I48.91 (primary diagnosis) - apical regular in office - continue with current medications and schedule follow up with cardiology - TSH BLD - T4 FREE/FREE THYROX - MAGNESIUM BLD - follow up in 4 weeks or earlier if needed 2. Type 2 diabetes mellitus without complication, without long-term current use of insulin (HCC) - ICD9: 250.00, ICD10: E11.9 - not reviewed today. Ordering HgbA1c to review at upcoming appointment. - HGB A1C Leda Brown APRN.CNP Prescription instructions reviewed with patient as applicable. Potential red flag symptoms discussed with the patient. Reviewed appropriate action plan to take if red flag symptoms occur. Patient agreeable to treatment plan. Leda Brown APRN.CNP documented in this encounter [facility] 02-07-2023 Note HNO ID: [id number] Author: Leda Brown APRN.CNP Service: ? Author Type: Nurse Practitioner Type: Progress Notes Filed: 02/07/2023 6:17 PM Note Text: CC: Patient presents with: Recheck: Follow up skin infection HPI Cassia Holland is a 57 year old female who presents today for concern of recurring cellulitis. Over the past week has had a red itchy spot to back of RLE. Redness is worse in the morning and improves during the day. Has not gotten larger. Denies history of skin conditions, change in detergents/soaps, infestation, fever, recent infection, pain, or anyone else in household with rash. Tender lump to right patel from slipping in the bathtub and hitting leg over 1 month ago. Still with small amount of healing bruising and tender mass. Mass is not getting bigger, is less tender, and less painful when walking. Denies any edema or redness to area. Still with ongoing sinus infection. Finishing last day of Augmentin 5 day regimen which was ordered by Urgent care. Is going to get in with ENT next week as this is a chronic issue. Symptoms of sinus infection are improving but still there. Denies any fever, chills, cough, wheezing, headaches, dizziness, chest pressure, or SOB REVIEW OF SYSTEMS See HPI PAST MEDICAL HISTORY Diagnosis Date Diabetes (HCC) adult onset Fibromyalgia Graves disease High blood pressure HSV-2 infection Interstitial lung disease (HCC) Lupus (HCC) Mixed connective tissue disease (HCC) Raynaud disease PAST SURGICAL HISTORY Procedure Laterality Date D AND C HYSTERECTOMY LAPAROSCOPY DIAGNOSTIC PAST SURGICAL HISTORY OF 7 sinus surgeries PAST SURGICAL HISTORY OF bilateral cataract surgeries TONSILLECTOMY HX ALLERGIES Cantaloupe, Levaquin [Levofloxacin], and Sulfa (Sulfonamide Antibiotics) MEDICATIONS clopidogrel (PLAVIX) 75 mg tablettake 4 tablets by mouth on day 1 then 1 tablet by mouth once daily afterDisp: Rfl: losartan (COZAAR) 100 mg tabletTake 0.5 tablets by mouth once daily.Disp: 30 tabletRfl: 5 citalopram (CELEXA) 20 mg tabletTake 1 tablet by mouth once daily.Disp: 30 tabletRfl: 5 metFORMIN ER (GLUCOPHAGE XR) 500 mg 24 hr tabletTake 2 tablets by mouth twice daily with meals.Disp: 360 tabletRfl: 1 fluticasone (FLONASE) 50 mcg/actuation nasal sprayUse 2 Sprays in each nostril once daily.Disp: 1 EachRfl: 3 hydroCHLOROthiazide 25 mg tablettake 1 tablet by mouth once dailyDisp: 30 tabletRfl: 4 amLODIPine (NORVASC) 5 mg tablettake 1 tablet by mouth once dailyDisp: 30 tabletRfl: 1 carvedilol (COREG) 6.25 mg tabletTake 6.25 mg by mouth twice daily with meals.Disp: Rfl: ondansetron orally disintegrating (ZOFRAN ODT) 4 mg disintegrating tabletTake 1 tablet by mouth every 6 hours as needed for nausea/vomiting.Disp: 30 tabletRfl: 1 nystatin (MYCOSTATIN) powderApply 1 application to affected area three times daily.Disp: 30 gRfl: 3 lansoprazole (PREVACID) 30 mg capsuleTake 1 capsule by mouth daily before breakfast. 1/2 hr before meal.Disp: 30 capsuleRfl: 11 montelukast (SINGULAIR) 10 mg tablettake 1 tablet by mouth once dailyDisp: 30 tabletRfl: 11 naproxen (NAPROSYN) 500 mg tablettake 1 tablet by mouth twice a day with food if needed for PAIN/INFLAMMATIONDisp: 30 tabletRfl: 1 EPINEPHrine (EPIPEN) 0.3 mg/0.3 mL auto-injectorUse per directed for severe allergic reactionDisp: 2 EachRfl: 1 lancets (PostachioUCH DELICA PLUS LANCET) 33 gaugeTest blood sugar(s) 1 times daily. Dx: Type 2 DM - Controlled E11.9 Insulin: NoDisp: 100 EachRfl: 11 blood sugar diagnostic (PostachioUCH ULTRA TEST) test stripuse 1 TEST STRIP to TEST BLOOD SUGAR once dailyDisp: 50 StripRfl: 11 levalbuterol tartrate HFA (XOPENEX HFA) 45 mcg/actuation inhalerInhale 1-2 Puffs as instructed every 4 hours as needed.Disp: 1 InhalerRfl: 2 budesonide (PULMICORT) 1 mg/2 mL nebulizer solutionINSTILL RESPULE IN NASAL SALINE WASHES AND USE TWICE DAILYDisp: 120 mLRfl: 2 triamcinolone acetonide (KENALOG) 0.1 % creamApply to affected area twice daily. For 7-10 days.Disp: 45 gRfl: 0 Blood-Glucose MeterDispense 1 kitDisp: 1 EachRfl: 0 FAMILY HISTORY Problem Relation Age of Onset Heart Mother stents Hypertension Mother other (pacemaker) Mother other (enlarged heart) Mother other (vertigo) Mother Prostate Cancer Father other (sjogrens) Sister Social History Tobacco Use Smoking status: Never Smokeless tobacco: Never Vaping Use Vaping Use: Never used Substance Use Topics Alcohol use: Not Currently Drug use: Never PHYSICAL EXAM BP 128/74 Pulse 84 Temp 36.9 ?C (98.5 ?F) (Temporal) Resp 16 Wt 85.7 kg (189 lb) SpO2 99% BMI 32.95 kg/m? General Appearance: well appearing, in no acute distress, alert Skin: yellowing fading bruising to right patel area. No edema noted. Small reddened area to lower right calf area, rough and dry in texture. Eyes: conjunctiva pink and moist, no icterus, sclera white, non-injected Ears: external (more content not included)... [facility] 01-31-2023 Note HNO ID: [id number] Author: Rubi Araya PA-C Service: ? Author Type: Physician Account Adjuster Type: Progress Notes Filed: 01/31/2023 5:11 PM Note Text: This note was created using [employer]. Subjective Cassia Holland is a 57 year old female. HPI Patient presents with a chief complaint of nasal congestion, cough fatigue over the past 4 to 5 days. No vomiting. She has had some sinus pressure. No diarrhea. No chest pain or shortness of breath. She does have a history of interstitial lung disease. Has a history of lupus and diabetes. Patient was concerned for a sinus infection. No home COVID test done. Review of Systems Constitutional: Positive for fatigue and fever. HENT: Positive for congestion, postnasal drip and sinus pressure. Negative for ear pain and sore throat. Respiratory: Positive for cough. Negative for chest tightness and shortness of breath. Cardiovascular: Negative. Gastrointestinal: Negative. Genitourinary: Negative. Musculoskeletal: Negative. All other systems reviewed and are negative. PAST MEDICAL HISTORY Diagnosis Date Diabetes (HCC) adult onset Fibromyalgia Graves disease High blood pressure HSV-2 infection Interstitial lung disease (HCC) Lupus (HCC) Mixed connective tissue disease (HCC) Raynaud disease Current Outpatient Medications Medication Sig Dispense Refill clopidogrel (PLAVIX) 75 mg tablet take 4 tablets by mouth on day 1 then 1 tablet by mouth once daily after losartan (COZAAR) 100 mg tablet Take 0.5 tablets by mouth once daily. 30 tablet 5 citalopram (CELEXA) 20 mg tablet Take 1 tablet by mouth once daily. 30 tablet 5 metFORMIN ER (GLUCOPHAGE XR) 500 mg 24 hr tablet Take 2 tablets by mouth twice daily with meals. 360 tablet 1 fluticasone (FLONASE) 50 mcg/actuation nasal spray Use 2 Sprays in each nostril once daily. 1 Each 3 hydroCHLOROthiazide 25 mg tablet take 1 tablet by mouth once daily 30 tablet 4 amLODIPine (NORVASC) 5 mg tablet take 1 tablet by mouth once daily 30 tablet 1 carvedilol (COREG) 6.25 mg tablet Take 6.25 mg by mouth twice daily with meals. ondansetron orally disintegrating (ZOFRAN ODT) 4 mg disintegrating tablet Take 1 tablet by mouth every 6 hours as needed for nausea/vomiting. 30 tablet 1 nystatin (MYCOSTATIN) powder Apply 1 application to affected area three times daily. 30 g 3 lansoprazole (PREVACID) 30 mg capsule Take 1 capsule by mouth daily before breakfast. 1/2 hr before meal. 30 capsule 11 montelukast (SINGULAIR) 10 mg tablet take 1 tablet by mouth once daily 30 tablet 11 naproxen (NAPROSYN) 500 mg tablet take 1 tablet by mouth twice a day with food if needed for PAIN/INFLAMMATION 30 tablet 1 EPINEPHrine (EPIPEN) 0.3 mg/0.3 mL auto-injector Use per directed for severe allergic reaction 2 Each 1 lancets (Server[employer] DELICA PLUS LANCET) 33 gauge Test blood sugar(s) 1 times daily. Dx: Type 2 DM - Controlled E11.9 Insulin: No 100 Each 11 blood sugar diagnostic (ONETOUCH ULTRA TEST) test strip use 1 TEST STRIP to TEST BLOOD SUGAR once daily 50 Strip 11 levalbuterol tartrate HFA (XOPENEX HFA) 45 mcg/actuation inhaler Inhale 1-2 Puffs as instructed every 4 hours as needed. 1 Inhaler 2 budesonide (PULMICORT) 1 mg/2 mL nebulizer solution INSTILL RESPULE IN NASAL SALINE WASHES AND USE TWICE DAILY 120 mL 2 triamcinolone acetonide (KENALOG) 0.1 % cream Apply to affected area twice daily. For 7-10 days. 45 g 0 Blood-Glucose Meter Dispense 1 kit 1 Each 0 amoxicillin-clavulanic acid (AUGMENTIN) 875-125 mg per tablet Take 1 tablet by mouth twice daily for 5 days. 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 COACH PAST SURGICAL HISTORY Procedure Laterality Date D AND C HYSTERECTOMY LAPAROSCOPY DIAGNOSTIC PAST SURGICAL HISTORY OF 7 sinus surgeries PAST SURGICAL HISTORY OF bilateral cataract surgeries TONSILLECTOMY HX FAMILY HISTORY Problem Relation Age of Onset Heart Mother stents Hypertension Mother other (pacemaker) Mother other (enlarged heart) Mother other (vertigo) Mother Prostate Cancer Father other (sjogrens) Sister Social History Tobacco Use Smoking status: Never Smokeless tobacco: Never Vaping Use Vaping Use: Never used Substance Use Topics Alcohol use: Not Currently Drug use: Never Objective BP 142/82 Pulse 84 Temp 37.2 ?C (99 ?F) (Tympanic) Resp 16 Wt 87.3 kg (192 lb 6.4 oz) SpO2 98% BMI 33.55 kg/m? Physical Exam Vitals reviewed. Constitutional: Appearance: Normal appearance. HENT: Head: Normocephalic and atraumatic. Right Ear: Tympanic membrane, ear canal and external ear normal. Left Ear: Tympanic membran (more content not included)... [facility] 12-31-2022 Note HNO ID: [id number] Author: John Rodriguez APRN.CNP Service: ? Author Type: Nurse Practitioner Type: Progress Notes Filed: 12/31/2022 1:28 PM Note Text: Nontoxic female presents urgent care chief complaint fever chest pressure and feeling fatigue. Duration of symptoms 24 hours. Associated symptoms listed above. Patient presents today with concerns of possible infection. Did recently have a heart cath performed on December 27. Actual temperature today at home 100.5. With patient's burning symptoms I recommend patient be seen the ED to rule out postoperative infection. Patient verbalized understand agrees with plan of care. Be seen at [facility] for further evaluation care. John Rodriguez APRN.CNP [facility] 12-31-2022 History of Present illness Narrative Nontoxic female presents urgent care chief complaint fever chest pressure and feeling fatigue. Duration of symptoms 24 hours. Associated symptoms listed above. Patient presents today with concerns of possible infection. Did recently have a heart cath performed on December 27. Actual temperature today at home 100.5. With patient's burning symptoms I recommend patient be seen the ED to rule out postoperative infection. Patient verbalized understand agrees with plan of care. Be seen at [facility] for further evaluation care. John Rodriguez APRN.ANTHONY documented in this encounter [facility] 12-20-2022 Note HNO ID: [id number] Author: Leda Brown APRN.CNP Service: ? Author Type: Nurse Practitioner Type: Progress Notes Filed: 12/20/2022 6:30 PM Note Text: CC: Patient presents with: Recheck: Follow up cellulitis HPI Cassia Holland is a 57 year old female who presents today for concerns of recurrent cellulitis. Was being treated for sinus infection which resolved her cellulitis to RLE by urgent care. Was completely resolved when seen 6 days ago. States last night her RLE was very red, itchy, and swollen. Temp in the 99s. Finished augmentin as prescribed by urgent care. Today symptoms have resolved but has a heart cath next week and per patient, was told by cardiology to get another dose of antibiotics to make sure it is completely resolved and prevent needing to reschedule heart cath. Does have history of dependant edema that worsens throughout the day and is better with elevation or in AM. 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 States there is no edema on the weekends when she is off. REVIEW OF SYSTEMS General: no fevers, no chills, no night sweats, no recurrent infections, no change in appetite, no change in energy, and no significant changes in weight Respiratory: no cough, no wheezing, no shortness of breath, no hemoptysis Cardiovascular: no chest pain, no chest pressure, and no palpitations Neurologic: No weakness, dizziness,syncope. PAST MEDICAL HISTORY Diagnosis Date Diabetes (HCC) adult onset Fibromyalgia Graves disease High blood pressure HSV-2 infection Interstitial lung disease (HCC) Lupus (HCC) Mixed connective tissue disease (HCC) Raynaud disease PAST SURGICAL HISTORY Procedure Laterality Date D AND C HYSTERECTOMY LAPAROSCOPY DIAGNOSTIC PAST SURGICAL HISTORY OF 7 sinus surgeries PAST SURGICAL HISTORY OF bilateral cataract surgeries TONSILLECTOMY HX ALLERGIES Cantaloupe, Levaquin [Levofloxacin], and Sulfa (Sulfonamide Antibiotics) MEDICATIONS losartan (COZAAR) 100 mg tabletTake 0.5 tablets by mouth once daily.Disp: 30 tabletRfl: 5 citalopram (CELEXA) 20 mg tabletTake 1 tablet by mouth once daily.Disp: 30 tabletRfl: 5 metFORMIN ER (GLUCOPHAGE XR) 500 mg 24 hr tabletTake 2 tablets by mouth twice daily with meals.Disp: 360 tabletRfl: 1 fluticasone (FLONASE) 50 mcg/actuation nasal sprayUse 2 Sprays in each nostril once daily.Disp: 1 EachRfl: 3 hydroCHLOROthiazide 25 mg tablettake 1 tablet by mouth once dailyDisp: 30 tabletRfl: 4 amLODIPine (NORVASC) 5 mg tablettake 1 tablet by mouth once dailyDisp: 30 tabletRfl: 1 carvedilol (COREG) 6.25 mg tabletTake 6.25 mg by mouth twice daily with meals.Disp: Rfl: ondansetron orally disintegrating (ZOFRAN ODT) 4 mg disintegrating tabletTake 1 tablet by mouth every 6 hours as needed for nausea/vomiting.Disp: 30 tabletRfl: 1 nystatin (MYCOSTATIN) powderApply 1 application to affected area three times daily.Disp: 30 gRfl: 3 lansoprazole (PREVACID) 30 mg capsuleTake 1 capsule by mouth daily before breakfast. 1/2 hr before meal.Disp: 30 capsuleRfl: 11 montelukast (SINGULAIR) 10 mg tablettake 1 tablet by mouth once dailyDisp: 30 tabletRfl: 11 naproxen (NAPROSYN) 500 mg tablettake 1 tablet by mouth twice a day with food if needed for PAIN/INFLAMMATIONDisp: 30 tabletRfl: 1 EPINEPHrine (EPIPEN) 0.3 mg/0.3 mL auto-injectorUse per directed for severe allergic reactionDisp: 2 EachRfl: 1 lancets ([employer] DELICA PLUS LANCET) 33 gaugeTest blood sugar(s) 1 times daily. Dx: Type 2 DM - Controlled E11.9 Insulin: NoDisp: 100 EachRfl: 11 blood sugar diagnostic (PostachioUCH ULTRA TEST) test stripuse 1 TEST STRIP to TEST BLOOD SUGAR once dailyDisp: 50 StripRfl: 11 levalbuterol tartrate HFA (XOPENEX HFA) 45 mcg/actuation inhalerInhale 1-2 Puffs as instructed every 4 hours as needed.Disp: 1 InhalerRfl: 2 budesonide (PULMICORT) 1 mg/2 mL nebulizer solutionINSTILL RESPULE IN NASAL SALINE WASHES AND USE TWICE DAILYDisp: 120 mLRfl: 2 triamcinolone acetonide (KENALOG) 0.1 % creamApply to affected area twice daily. For 7-10 days.Disp: 45 gRfl: 0 Blood-Glucose MeterDispense 1 kitDisp: 1 EachRfl: 0 FAMILY HISTORY Problem Relation Age of Onset Heart Mother stents Hypertension Mother other (pacemaker) Mother other (enlarged heart) Mother other (vertigo) Mother Prostate Cancer Father other (sjogrens) Sister Social History Tobacco Use Smoking status: Never Smokeless tobacco: Never Vaping Use Vaping Use: Never used Substance Use Topics Alcohol use: Not Currently Drug use: Never PHYSICAL EXAM BP 132/74 Pulse 84 Temp 37.1 ?C (98.7 ?F) (Temporal) Resp 16 SpO2 98% General Appearance: well appearing, in no acute distress, alert Skin: Skin color, texture, turgor normal for age; Eyes: conjunctiva pink and moist, no icterus, sclera white, non-injected BLE Extremities: No deformities, skin discoloration, clubbing or cyanosis. Good capillary refill. Slight non (more content not included)... [facility] 12-20-2022 Instructions Leda Brown APRN.CNP - 12/20/2022 5:35 PM EDT Get compression socks and wear during the day to help decrease edema. Elevate legs as able documented in this encounter [facility] 12-20-2022 History of Present illness Narrative CC: Patient presents with: Recheck: Follow up cellulitis HPI Cassia Holland is a 57 year old female who presents today for concerns of recurrent cellulitis. Was being treated for sinus infection which resolved her cellulitis to RLE by urgent care. Was completely resolved when seen 6 days ago. States last night her RLE was very red, itchy, and swollen. Temp in the 99s. Finished augmentin as prescribed by urgent care. Today symptoms have resolved but has a heart cath next week and per patient, was told by cardiology to get another dose of antibiotics to make sure it is completely resolved and prevent needing to reschedule heart cath. Does have history of dependant edema that worsens throughout the day and is better with elevation or in AM. 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 States there is no edema on the weekends when she is off. REVIEW OF SYSTEMS General: no fevers, no chills, no night sweats, no recurrent infections, no change in appetite, no change in energy, and no significant changes in weight Respiratory: no cough, no wheezing, no shortness of breath, no hemoptysis Cardiovascular: no chest pain, no chest pressure, and no palpitations Neurologic: No weakness, dizziness,syncope. PAST MEDICAL HISTORY Diagnosis Date Diabetes (HCC) adult onset Fibromyalgia Graves disease High blood pressure HSV-2 infection Interstitial lung disease (HCC) Lupus (HCC) Mixed connective tissue disease (HCC) Raynaud disease PAST SURGICAL HISTORY Procedure Laterality Date D AND C HYSTERECTOMY LAPAROSCOPY DIAGNOSTIC PAST SURGICAL HISTORY OF 7 sinus surgeries PAST SURGICAL HISTORY OF bilateral cataract surgeries TONSILLECTOMY HX ALLERGIES Cantaloupe, Levaquin [Levofloxacin], and Sulfa (Sulfonamide Antibiotics) MEDICATIONS losartan (COZAAR) 100 mg tablet^Take 0.5 tablets by mouth once daily.^Disp: 30 tablet^Rfl: 5 citalopram (CELEXA) 20 mg tablet^Take 1 tablet by mouth once daily.^Disp: 30 tablet^Rfl: 5 metFORMIN ER (GLUCOPHAGE XR) 500 mg 24 hr tablet^Take 2 tablets by mouth twice daily with meals.^Disp: 360 tablet^Rfl: 1 fluticasone (FLONASE) 50 mcg/actuation nasal spray^Use 2 Sprays in each nostril once daily.^Disp: 1 Each^Rfl: 3 hydroCHLOROthiazide 25 mg tablet^take 1 tablet by mouth once daily^Disp: 30 tablet^Rfl: 4 amLODIPine (NORVASC) 5 mg tablet^take 1 tablet by mouth once daily^Disp: 30 tablet^Rfl: 1 carvedilol (COREG) 6.25 mg tablet^Take 6.25 mg by mouth twice daily with meals.^Disp: ^Rfl: ondansetron orally disintegrating (ZOFRAN ODT) 4 mg disintegrating tablet^Take 1 tablet by mouth every 6 hours as needed for nausea/vomiting.^Disp: 30 tablet^Rfl: 1 nystatin (MYCOSTATIN) powder^Apply 1 application to affected area three times daily.^Disp: 30 g^Rfl: 3 lansoprazole (PREVACID) 30 mg capsule^Take 1 capsule by mouth daily before breakfast. 1/2 hr before meal.^Disp: 30 capsule^Rfl: 11 montelukast (SINGULAIR) 10 mg tablet^take 1 tablet by mouth once daily^Disp: 30 tablet^Rfl: 11 naproxen (NAPROSYN) 500 mg tablet^take 1 tablet by mouth twice a day with food if needed for PAIN/INFLAMMATION^Disp: 30 tablet^Rfl: 1 EPINEPHrine (EPIPEN) 0.3 mg/0.3 mL auto-injector^Use per directed for severe allergic reaction^Disp: 2 Each^Rfl: 1 lancets (PostachioUCH DELICA PLUS LANCET) 33 gauge^Test blood sugar(s) 1 times daily. Dx: Type 2 DM - Controlled E11.9 Insulin: No^Disp: 100 Each^Rfl: 11 blood sugar diagnostic (PostachioUCH ULTRA TEST) test strip^use 1 TEST STRIP to TEST BLOOD SUGAR once daily^Disp: 50 Strip^Rfl: 11 levalbuterol tartrate HFA (XOPENEX HFA) 45 mcg/actuation inhaler^Inhale 1-2 Puffs as instructed every 4 hours as needed.^Disp: 1 Inhaler^Rfl: 2 budesonide (PULMICORT) 1 mg/2 mL nebulizer solution^INSTILL RESPULE IN NASAL SALINE WASHES AND USE TWICE DAILY^Disp: 120 mL^Rfl: 2 triamcinolone acetonide (KENALOG) 0.1 % cream^Apply to affected area twice daily. For 7-10 days.^Disp: 45 g^Rfl: 0 Blood-Glucose Meter^Dispense 1 kit^Disp: 1 Each^Rfl: 0 FAMILY HISTORY Problem Relation Age of Onset Heart Mother stents Hypertension Mother other (pacemaker) Mother other (enlarged heart) Mother other (vertigo) Mother Prostate Cancer Father other (sjogrens) Sister Social History Tobacco Use Smoking status: Never Smokeless tobacco: Never Vaping Use Vaping Use: Never used Substance Use Topics Alcohol use: Not Currently Drug use: Never PHYSICAL EXAM BP 132/74 Pulse 84 Temp 37.1 C (98.7 F) (Temporal) Resp 16 SpO2 98% General Appearance: well appearing, in no acute distress, alert Skin: Skin color, texture, turgor normal for age; Eyes: conjunctiva pink and moist, no icterus, sclera white, non-injected BLE Extremities: No deformities, skin discoloration, clubbing or cyanosis. Good capillary refill. Slight nonpitting edema to ankles. No tenderness, redness, increased warmth, or drainage noted. Health maintenance reviewed with patient: BP CONTROLLED (<130/80) Never done DIABETIC FOOT EXAM due on 03/07/2022 DEPRESSION ASSESSMENT Never done COLORECTAL CANCER SCREENING due on 01/21/2023 DTAP,TDAP,TD(1 - Tdap) due on 09/15/2023 HEPATITIS B(1 of 3 - 3-dose series) due on 09/15/2023 HPV TESTING due on 09/15/2023 HIV SCREENING due on 09/15/2023 SHINGRIX VACCINE(1 of 2) due on 09/15/2023 COVID-19 VACCINE(3 - Moderna series) due on 09/15/2023 PNEUMOCOCCAL(1 - PCV) due on 09/15/2023 INFLUENZA(1) due on 01/05/2023 HBA1C due on 03/17/2023 DILATED RETINAL EXAM due on 10/24/2023 MAMMOGRAM due on 11/10/2023 URINE ALBUMIN:CREATININE RATIO due on 12/08/2023 LDL CHOLESTEROL due on 12/08/2023 ANNUAL PCP TEAM CHRONIC DISEASE VISIT due on 12/15/2023 HEPATITIS C SCREENING Completed PAP TESTING Discontinued DATA REVIEWED: No new labs ASSESSMENT/PLAN: 1. Cellulitis of right lower extremity - ICD9: 682.6, ICD10: L03.115 (primary diagnosis) - no concerns on exam. Feel this may have been redness from dependant edema. - as she is having a heart cath next week, will go ahead and treat with doxy as requested by cardiology. - follow up for any reoccurrence of symptoms - also recommend compression socks while at work to help decrease dependant edema along with elevating legs as able and adhering to a low salt diet. 2. Dependent edema - ICD9: 782.3, ICD10: R60.9 As above Prescription instructions reviewed with patient as applicable. Potential red flag symptoms discussed with the patient. Reviewed appropriate action plan to take if red flag symptoms occur. Patient agreeable to treatment plan. Leda Brown APRN.CNP documented in this encounter [facility] 12-19-2022 Miscellaneous Notes Patient notified, scheduled for tomorrow with Leda. Patient was to follow-up for any recurrent symptoms per Leda Brown's office visit note. Please schedule Luz Brown APRN.CNP Pt seen in [facility] twice & with CLARITZA Brown on 12/14/22 for cellulitis right lower leg. Pt states it seems more red & irritated than when she was seen 12/14. Size is still the same, occasionally has pain. T 2 days ago was 100.2 then 99.3 last pm. But overall pt feels it is not worse. Pt has a dose left today & 2 doses tomorrow of Augmentin then will be finished. Please advise. Chloé Dhaliwal LPN documented in this encounter [facility] 12-14-2022 Note HNO ID: [id number] Author: Leda Brown APRN.GIRLS SWIMMING COACH Service: ? Author Type: Nurse Practitioner Type: Progress Notes Filed: 12/15/2022 7:20 AM Note Text: CC: Patient presents with: Recheck: 3 month follow up HPI Cassia Holland is a 57 year old female who presents today for routine follow up but has been to the ER twice since last visit and 2 express care visit. 11/27 - went to [facility] for increase in RUQ pain and severe nausea. US of abdomen showed cirrhosis of liver which is not new for her and a possible gallbladder polyp. CT showed 5mm possible ureter stone. Had a CT urogram by Dr. Wylie last week which per patient was normal. Has EGD scheduled with her environmental services lead for ongoing nausea and pain in January. Repeat abdominal CT on 12/07 with no concerns outside of her known liver disease. RUQ pain is at baseline except last night had episode after eating a large meal of guinean fries and BBQ sandwich. Self resolved during the night No vomiting, diarrhea, fever, chest pain, shortness of breath, or palpitations. 12/03 - went back to [facility] for RLE swelling and red without cause. Negative for blood clot and not treated for cellulitis. 12/09 went to Express care for sinus infection. Treated with augmentin. Symptoms improved with treatment except still with some tenderness to right side of face and some nasal drainage. Redness and swelling of RLE continued until recent treatment of augmentin which resolved symptoms. Denies any cough, wheezing, chills, further edema, or headaches. Has a heart cath being performed by [facility] at the end of this month: REVIEW OF SYSTEMS General: no fevers, no chills, no night sweats, no recurrent infections, no change in appetite, no change in energy, and no significant changes in weight Respiratory: no cough, no wheezing, no shortness of breath, no hemoptysis Cardiovascular: no chest pain, no chest pressure, no palpitations, and no swelling GI: See HPI : No history of dysuria, frequency or incontinence Neurologic: No headache, weakness, dizziness, memory loss, syncope. PAST MEDICAL HISTORY Diagnosis Date Diabetes (HCC) adult onset Fibromyalgia Graves disease High blood pressure HSV-2 infection Interstitial lung disease (HCC) Lupus (HCC) Mixed connective tissue disease (HCC) Raynaud disease PAST SURGICAL HISTORY Procedure Laterality Date D AND C HYSTERECTOMY LAPAROSCOPY DIAGNOSTIC PAST SURGICAL HISTORY OF 7 sinus surgeries PAST SURGICAL HISTORY OF bilateral cataract surgeries TONSILLECTOMY HX ALLERGIES Cantaloupe, Levaquin [Levofloxacin], and Sulfa (Sulfonamide Antibiotics) MEDICATIONS amoxicillin-clavulanic acid (AUGMENTIN) 875-125 mg per tabletTake 1 tablet by mouth twice daily for 7 days.Disp: 14 tabletRfl: 0 fluticasone (FLONASE) 50 mcg/actuation nasal sprayUse 2 Sprays in each nostril once daily.Disp: 1 EachRfl: 3 hydroCHLOROthiazide 25 mg tablettake 1 tablet by mouth once dailyDisp: 30 tabletRfl: 4 amLODIPine (NORVASC) 5 mg tablettake 1 tablet by mouth once dailyDisp: 30 tabletRfl: 1 carvedilol (COREG) 6.25 mg tabletTake 6.25 mg by mouth twice daily with meals.Disp: Rfl: ondansetron orally disintegrating (ZOFRAN ODT) 4 mg disintegrating tabletTake 1 tablet by mouth every 6 hours as needed for nausea/vomiting.Disp: 30 tabletRfl: 1 metFORMIN ER (GLUCOPHAGE XR) 500 mg 24 hr tabletTake 2 tablets by mouth twice daily with meals.Disp: 360 tabletRfl: 1 nystatin (MYCOSTATIN) powderApply 1 application to affected area three times daily.Disp: 30 gRfl: 3 lansoprazole (PREVACID) 30 mg capsuleTake 1 capsule by mouth daily before breakfast. 1/2 hr before meal.Disp: 30 capsuleRfl: 11 losartan (COZAAR) 100 mg tabletTake 0.5 tablets by mouth once daily.Disp: 30 tabletRfl: 5 citalopram (CELEXA) 20 mg tabletTake 1 tablet by mouth once daily.Disp: 30 tabletRfl: 5 montelukast (SINGULAIR) 10 mg tablettake 1 tablet by mouth once dailyDisp: 30 tabletRfl: 11 naproxen (NAPROSYN) 500 mg tablettake 1 tablet by mouth twice a day with food if needed for PAIN/INFLAMMATIONDisp: 30 tabletRfl: 1 EPINEPHrine (EPIPEN) 0.3 mg/0.3 mL auto-injectorUse per directed for severe allergic reactionDisp: 2 EachRfl: 1 lancets (PhagenesisTOUCH DELICA PLUS LANCET) 33 gaugeTest blood sugar(s) 1 times daily. Dx: Type 2 DM - Controlled E11.9 Insulin: NoDisp: 100 EachRfl: 11 blood sugar diagnostic (ONETOUCH ULTRA TEST) test stripuse 1 TEST STRIP to TEST BLOOD SUGAR once dailyDisp: 50 StripRfl: 11 levalbuterol tartrate HFA (XOPENEX HFA) 45 mcg/actuation inhalerInhale 1-2 Puffs as instructed every 4 hours as needed.Disp: 1 InhalerRfl: 2 budesonide (PULMICORT) 1 mg/2 mL nebulizer solutionINSTILL RESPULE IN NASAL SALINE WASHES AND USE TWICE DAILYDisp: 120 mLRfl: 2 triamcinolone acetonide (KENALOG) 0.1 % creamApply to affected area twice daily. For 7-10 days.Disp: 45 gRfl: 0 Blood-Glucose MeterDispense 1 kitDisp: 1 Eac (more content not included)... [facility] 12-14-2022 History of Present illness Narrative CC: Patient presents with: Recheck: 3 month follow up HPI Cassia Holland is a 57 year old female who presents today for routine follow up but has been to the ER twice since last visit and 2 express care visit. 11/27 - went to [facility] for increase in RUQ pain and severe nausea. US of abdomen showed cirrhosis of liver which is not new for her and a possible gallbladder polyp. CT showed 5mm possible ureter stone. Had a CT urogram by Dr. Wylie last week which per patient was normal. Has EGD scheduled with her environmental services lead for ongoing nausea and pain in January. Repeat abdominal CT on 12/07 with no concerns outside of her known liver disease. RUQ pain is at baseline except last night had episode after eating a large meal of guinean fries and BBQ sandwich. Self resolved during the night No vomiting, diarrhea, fever, chest pain, shortness of breath, or palpitations. 12/03 - went back to [facility] for RLE swelling and red without cause. Negative for blood clot and not treated for cellulitis. 12/09 went to [facility] care for sinus infection. Treated with augmentin. Symptoms improved with treatment except still with some tenderness to right side of face and some nasal drainage. Redness and swelling of RLE continued until recent treatment of augmentin which resolved symptoms. Denies any cough, wheezing, chills, further edema, or headaches. Has a heart cath being performed by [facility] at the end of this month: REVIEW OF SYSTEMS General: no fevers, no chills, no night sweats, no recurrent infections, no change in appetite, no change in energy, and no significant changes in weight Respiratory: no cough, no wheezing, no shortness of breath, no hemoptysis Cardiovascular: no chest pain, no chest pressure, no palpitations, and no swelling GI: See HPI : No history of dysuria, frequency or incontinence Neurologic: No headache, weakness, dizziness, memory loss, syncope. PAST MEDICAL HISTORY Diagnosis Date Diabetes (HCC) adult onset Fibromyalgia Graves disease High blood pressure HSV-2 infection Interstitial lung disease (HCC) Lupus (HCC) Mixed connective tissue disease (HCC) Raynaud disease PAST SURGICAL HISTORY Procedure Laterality Date D AND C HYSTERECTOMY LAPAROSCOPY DIAGNOSTIC PAST SURGICAL HISTORY OF 7 sinus surgeries PAST SURGICAL HISTORY OF bilateral cataract surgeries TONSILLECTOMY HX ALLERGIES Cantaloupe, Levaquin [Levofloxacin], and Sulfa (Sulfonamide Antibiotics) MEDICATIONS amoxicillin-clavulanic acid (AUGMENTIN) 875-125 mg per tablet^Take 1 tablet by mouth twice daily for 7 days.^Disp: 14 tablet^Rfl: 0 fluticasone (FLONASE) 50 mcg/actuation nasal spray^Use 2 Sprays in each nostril once daily.^Disp: 1 Each^Rfl: 3 hydroCHLOROthiazide 25 mg tablet^take 1 tablet by mouth once daily^Disp: 30 tablet^Rfl: 4 amLODIPine (NORVASC) 5 mg tablet^take 1 tablet by mouth once daily^Disp: 30 tablet^Rfl: 1 carvedilol (COREG) 6.25 mg tablet^Take 6.25 mg by mouth twice daily with meals.^Disp: ^Rfl: ondansetron orally disintegrating (ZOFRAN ODT) 4 mg disintegrating tablet^Take 1 tablet by mouth every 6 hours as needed for nausea/vomiting.^Disp: 30 tablet^Rfl: 1 metFORMIN ER (GLUCOPHAGE XR) 500 mg 24 hr tablet^Take 2 tablets by mouth twice daily with meals.^Disp: 360 tablet^Rfl: 1 nystatin (MYCOSTATIN) powder^Apply 1 application to affected area three times daily.^Disp: 30 g^Rfl: 3 lansoprazole (PREVACID) 30 mg capsule^Take 1 capsule by mouth daily before breakfast. 1/2 hr before meal.^Disp: 30 capsule^Rfl: 11 losartan (COZAAR) 100 mg tablet^Take 0.5 tablets by mouth once daily.^Disp: 30 tablet^Rfl: 5 citalopram (CELEXA) 20 mg tablet^Take 1 tablet by mouth once daily.^Disp: 30 tablet^Rfl: 5 montelukast (SINGULAIR) 10 mg tablet^take 1 tablet by mouth once daily^Disp: 30 tablet^Rfl: 11 naproxen (NAPROSYN) 500 mg tablet^take 1 tablet by mouth twice a day with food if needed for PAIN/INFLAMMATION^Disp: 30 tablet^Rfl: 1 EPINEPHrine (EPIPEN) 0.3 mg/0.3 mL auto-injector^Use per directed for severe allergic reaction^Disp: 2 Each^Rfl: 1 lancets (PostachioUCH DELICA PLUS LANCET) 33 gauge^Test blood sugar(s) 1 times daily. Dx: Type 2 DM - Controlled E11.9 Insulin: No^Disp: 100 Each^Rfl: 11 blood sugar diagnostic (PostachioUCH ULTRA TEST) test strip^use 1 TEST STRIP to TEST BLOOD SUGAR once daily^Disp: 50 Strip^Rfl: 11 levalbuterol tartrate HFA (XOPENEX HFA) 45 mcg/actuation inhaler^Inhale 1-2 Puffs as instructed every 4 hours as needed.^Disp: 1 Inhaler^Rfl: 2 budesonide (PULMICORT) 1 mg/2 mL nebulizer solution^INSTILL RESPULE IN NASAL SALINE WASHES AND USE TWICE DAILY^Disp: 120 mL^Rfl: 2 triamcinolone acetonide (KENALOG) 0.1 % cream^Apply to affected area twice daily. For 7-10 days.^Disp: 45 g^Rfl: 0 Blood-Glucose Meter^Dispense 1 kit^Disp: 1 Each^Rfl: 0 FAMILY HISTORY Problem Relation Age of Onset Heart Mother stents Hypertension Mother other (pacemaker) Mother other (enlarged heart) Mother other (vertigo) Mother Prostate Cancer Father other (sjogrens) Sister Social History Tobacco Use Smoking status: Never Smokeless tobacco: Never Vaping Use Vaping Use: Never used Substance Use Topics Alcohol use: Not Currently Drug use: Never PHYSICAL EXAM BP 144/82 Pulse 72 Temp 36.8 C (98.2 F) (Temporal) Resp 16 Wt 84.8 kg (187 lb) SpO2 99% BMI 32.61 kg/m General Appearance: well appearing, in no acute distress, alert Pysch: mood and affect broad and appropriate Skin: Skin color, texture, turgor normal for age; Ears: External ears normal, canals clear Nose/Sinuses: Nares normal, septum midline, mucosa normal, no drainage, reported sinus tenderness to right maxillary sinus. Oropharynx: Lips, mucosa, and tongue normal, teeth and gums normal, oropharynx normal Lungs: Lungs clear to auscultation. No wheezing, rhonchi, rales. Heart: RRR without murmur, gallop, or rubs. No ectopy Abdomen: Abdomen soft, non-tender. Bowel sounds normal. No masses, organomegaly Extremities: No deformities, edema, skin discoloration, clubbing or cyanosis. Good capillary refill. Health maintenance reviewed with patient: BP CONTROLLED (<130/80) Never done DIABETIC FOOT EXAM due on 03/07/2022 DEPRESSION ASSESSMENT Never done COLORECTAL CANCER SCREENING due on 01/21/2023 DTAP,TDAP,TD(1 - Tdap) due on 09/15/2023 HEPATITIS B(1 of 3 - 3-dose series) due on 09/15/2023 HPV TESTING due on 09/15/2023 HIV SCREENING due on 09/15/2023 SHINGRIX VACCINE(1 of 2) due on 09/15/2023 COVID-19 VACCINE(3 - Moderna series) due on 09/15/2023 PNEUMOCOCCAL(1 - PCV) due on 09/15/2023 INFLUENZA(1) due on 01/05/2023 HBA1C due on 03/17/2023 ANNUAL PCP TEAM CHRONIC DISEASE VISIT due on 09/15/2023 DILATED RETINAL EXAM due on 10/24/2023 MAMMOGRAM due on 11/10/2023 URINE ALBUMIN:CREATININE RATIO due on 12/08/2023 LDL CHOLESTEROL due on 12/08/2023 HEPATITIS C SCREENING Completed PAP TESTING Discontinued DATA REVIEWED: Outside chart from [facility] reviewed. ASSESSMENT/PLAN: 1. Cellulitis of right lower extremity - ICD9: 682.6, ICD10: L03.115 (primary diagnosis) - resolved with antibiotic treatment, continue with augmentin and extending to full 10 day treatment - follow up for any recurrent symptoms or new concerns 2. Subacute sinusitis, unspecified location - ICD9: 461.9, ICD10: J01.90 - continue current treatment, extending augmentin to 10 days - follow up in 3-5 days if no improvement or for any worsening symptoms. 3. RUQ pain - ICD9: 789.01, ICD10: R10.11 - back to baseline - continue with upcoming EGD with Fire Control Mechanic - if negative or no cause for RUQ found, will consult to general surgery for evaluation of possibly underlying gallbladder problems - follow up in 6 weeks to review this and chronic conditions. 4. Liver fibrosis - ICD9: 571.5, ICD10: K74.00 - continue with plans to have EGD - continue with treatment and recommendations by hepatology/GI 4. Type 2 diabetes mellitus without complication, without long-term current use of insulin (HCC) - ICD9: 250.00, ICD10: E11.9 - not reviewed today, needed refill. Will review at follow up. - METFORMIN ER 500 MG TABLET,EXTENDED RELEASE 24 HR Prescription instructions reviewed with patient as applicable. Potential red flag symptoms discussed with the patient. Reviewed appropriate action plan to take if red flag symptoms occur. Patient agreeable to treatment plan. Leda Brown APRN.CNP documented in this encounter [facility] 12-09-2022 Note HNO ID: [id number] Author: John Rodriguez APRN.CNP Service: ? Author Type: Nurse Practitioner Type: Progress Notes Filed: 12/09/2022 3:11 PM Note Text: Subjective HPI Nontoxic-appearing female presents urgent care chief complaint possible sinus affection. Duration of symptoms 8 days. Associated symptoms worsening sinus pressure. History of sinus infections this feels similar. Did have low-grade fever earlier this week. That has since subsided. History of chronic sinus infection. Is currently under care by ENT. Denies any fever body aches chills productive cough chest pain shortness of breath pleuritic pain hemoptysis nausea vomiting abdominal pain change in bowel or bladder habits. Past medical history prescription medication use and allergies reviewed. .Patient presents with: Sinus Problem: sinus pressure, drainage, headache and low grade fever x 1 week PAST MEDICAL HISTORY Diagnosis Date - Diabetes (HCC) adult onset - Fibromyalgia - Graves disease - High blood pressure - HSV-2 infection - Interstitial lung disease (HCC) - Lupus (HCC) - Mixed connective tissue disease (HCC) - Raynaud disease PAST SURGICAL HISTORY Procedure Laterality Date - D AND C - HYSTERECTOMY - LAPAROSCOPY DIAGNOSTIC - PAST SURGICAL HISTORY OF 7 sinus surgeries - PAST SURGICAL HISTORY OF bilateral cataract surgeries - TONSILLECTOMY HX ALLERGIES Cantaloupe, Levaquin [Levofloxacin], and Sulfa (Sulfonamide Antibiotics) MEDICATIONS - fluticasone (FLONASE) 50 mcg/actuation nasal sprayUse 2 Sprays in each nostril once daily.Disp: 1 EachRfl: 3 - hydroCHLOROthiazide 25 mg tablettake 1 tablet by mouth once dailyDisp: 30 tabletRfl: 4 - amLODIPine (NORVASC) 5 mg tablettake 1 tablet by mouth once dailyDisp: 30 tabletRfl: 1 - carvedilol (COREG) 6.25 mg tabletTake 6.25 mg by mouth twice daily with meals.Disp: Rfl: - ondansetron orally disintegrating (ZOFRAN ODT) 4 mg disintegrating tabletTake 1 tablet by mouth every 6 hours as needed for nausea/vomiting.Disp: 30 tabletRfl: 1 - metFORMIN ER (GLUCOPHAGE XR) 500 mg 24 hr tabletTake 2 tablets by mouth twice daily with meals.Disp: 360 tabletRfl: 1 - nystatin (MYCOSTATIN) powderApply 1 application to affected area three times daily.Disp: 30 gRfl: 3 - lansoprazole (PREVACID) 30 mg capsuleTake 1 capsule by mouth daily before breakfast. 1/2 hr before meal.Disp: 30 capsuleRfl: 11 - losartan (COZAAR) 100 mg tabletTake 0.5 tablets by mouth once daily.Disp: 30 tabletRfl: 5 - citalopram (CELEXA) 20 mg tabletTake 1 tablet by mouth once daily.Disp: 30 tabletRfl: 5 - montelukast (SINGULAIR) 10 mg tablettake 1 tablet by mouth once dailyDisp: 30 tabletRfl: 11 - naproxen (NAPROSYN) 500 mg tablettake 1 tablet by mouth twice a day with food if needed for PAIN/INFLAMMATIONDisp: 30 tabletRfl: 1 - EPINEPHrine (EPIPEN) 0.3 mg/0.3 mL auto-injectorUse per directed for severe allergic reactionDisp: 2 EachRfl: 1 - lancets (PostachioUCH DELICA PLUS LANCET) 33 gaugeTest blood sugar(s) 1 times daily. Dx: Type 2 DM - Controlled E11.9 Insulin: NoDisp: 100 EachRfl: 11 - blood sugar diagnostic (PostachioUCH ULTRA TEST) test stripuse 1 TEST STRIP to TEST BLOOD SUGAR once dailyDisp: 50 StripRfl: 11 - levalbuterol tartrate HFA (XOPENEX HFA) 45 mcg/actuation inhalerInhale 1-2 Puffs as instructed every 4 hours as needed.Disp: 1 InhalerRfl: 2 - budesonide (PULMICORT) 1 mg/2 mL nebulizer solutionINSTILL RESPULE IN NASAL SALINE WASHES AND USE TWICE DAILYDisp: 120 mLRfl: 2 - triamcinolone acetonide (KENALOG) 0.1 % creamApply to affected area twice daily. For 7-10 days.Disp: 45 gRfl: 0 - Blood-Glucose MeterDispense 1 kitDisp: 1 EachRfl: 0 FAMILY HISTORY Problem Relation Age of Onset - Heart Mother stents - Hypertension Mother - other (pacemaker) Mother - other (enlarged heart) Mother - other (vertigo) Mother - Prostate Cancer Father - other (sjogrens) Sister Social History Tobacco Use - Smoking status: Never - Smokeless tobacco: Never Vaping Use - Vaping Use: Never used Substance Use Topics - Alcohol use: Not Currently - Drug use: Never BP 134/80 Pulse 82 Temp 37.2 ?C (99 ?F) Resp 16 Wt 86.6 kg (191 lb) SpO2 98% BMI 33.30 kg/m? Review of Systems Constitutional: Positive for malaise/fatigue. Negative for chills and fever. HENT: Positive for congestion, ear pain and sinus pain. Negative for ear discharge and sore throat. Eyes: Negative for blurred vision, pain, discharge and redness. Respiratory: Negative for cough, hemoptysis, sputum production, shortness of breath, wheezing and stridor. Cardiovascular: Negative for chest pain. Gastrointestinal: Negative for abdominal pain, diarrhea, nausea and vomiting. Musculoskeletal: Positive for myalgias. Skin: Negative for itching and rash. Neurological: Positive for headaches. Negative for dizziness. Objective Physical Exam Constitutional: General: She is (more content not included)... [facility] 12-09-2022 Note HNO ID: [id number] Author: John Rodriguez APRN.GIRLS SWIMMING COACH Service: ? Author Type: Nurse Practitioner Type: Progress Notes Filed: 12/09/2022 3:11 PM Note Text: Subjective HPI ROS Objective Physical Exam [facility] 12-09-2022 History of Present illness Narrative Subjective HPI Nontoxic-appearing female presents urgent care chief complaint possible sinus affection. Duration of symptoms 8 days. Associated symptoms worsening sinus pressure. History of sinus infections this feels similar. Did have low-grade fever earlier this week. That has since subsided. History of chronic sinus infection. Is currently under care by ENT. Denies any fever body aches chills productive cough chest pain shortness of breath pleuritic pain hemoptysis nausea vomiting abdominal pain change in bowel or bladder habits. Past medical history prescription medication use and allergies reviewed. .Patient presents with: Sinus Problem: sinus pressure, drainage, headache and low grade fever x 1 week PAST MEDICAL HISTORY Diagnosis Date Diabetes (HCC) adult onset Fibromyalgia Graves disease High blood pressure HSV-2 infection Interstitial lung disease (HCC) Lupus (HCC) Mixed connective tissue disease (HCC) Raynaud disease PAST SURGICAL HISTORY Procedure Laterality Date D AND C HYSTERECTOMY LAPAROSCOPY DIAGNOSTIC PAST SURGICAL HISTORY OF 7 sinus surgeries PAST SURGICAL HISTORY OF bilateral cataract surgeries TONSILLECTOMY HX ALLERGIES Cantaloupe, Levaquin [Levofloxacin], and Sulfa (Sulfonamide Antibiotics) MEDICATIONS fluticasone (FLONASE) 50 mcg/actuation nasal spray^Use 2 Sprays in each nostril once daily.^Disp: 1 Each^Rfl: 3 hydroCHLOROthiazide 25 mg tablet^take 1 tablet by mouth once daily^Disp: 30 tablet^Rfl: 4 amLODIPine (NORVASC) 5 mg tablet^take 1 tablet by mouth once daily^Disp: 30 tablet^Rfl: 1 carvedilol (COREG) 6.25 mg tablet^Take 6.25 mg by mouth twice daily with meals.^Disp: ^Rfl: ondansetron orally disintegrating (ZOFRAN ODT) 4 mg disintegrating tablet^Take 1 tablet by mouth every 6 hours as needed for nausea/vomiting.^Disp: 30 tablet^Rfl: 1 metFORMIN ER (GLUCOPHAGE XR) 500 mg 24 hr tablet^Take 2 tablets by mouth twice daily with meals.^Disp: 360 tablet^Rfl: 1 nystatin (MYCOSTATIN) powder^Apply 1 application to affected area three times daily.^Disp: 30 g^Rfl: 3 lansoprazole (PREVACID) 30 mg capsule^Take 1 capsule by mouth daily before breakfast. 1/2 hr before meal.^Disp: 30 capsule^Rfl: 11 losartan (COZAAR) 100 mg tablet^Take 0.5 tablets by mouth once daily.^Disp: 30 tablet^Rfl: 5 citalopram (CELEXA) 20 mg tablet^Take 1 tablet by mouth once daily.^Disp: 30 tablet^Rfl: 5 montelukast (SINGULAIR) 10 mg tablet^take 1 tablet by mouth once daily^Disp: 30 tablet^Rfl: 11 naproxen (NAPROSYN) 500 mg tablet^take 1 tablet by mouth twice a day with food if needed for PAIN/INFLAMMATION^Disp: 30 tablet^Rfl: 1 EPINEPHrine (EPIPEN) 0.3 mg/0.3 mL auto-injector^Use per directed for severe allergic reaction^Disp: 2 Each^Rfl: 1 lancets (PhagenesisTOUCH DELICA PLUS LANCET) 33 gauge^Test blood sugar(s) 1 times daily. Dx: Type 2 DM - Controlled E11.9 Insulin: No^Disp: 100 Each^Rfl: 11 blood sugar diagnostic (PhagenesisTOUCH ULTRA TEST) test strip^use 1 TEST STRIP to TEST BLOOD SUGAR once daily^Disp: 50 Strip^Rfl: 11 levalbuterol tartrate HFA (XOPENEX HFA) 45 mcg/actuation inhaler^Inhale 1-2 Puffs as instructed every 4 hours as needed.^Disp: 1 Inhaler^Rfl: 2 budesonide (PULMICORT) 1 mg/2 mL nebulizer solution^INSTILL RESPULE IN NASAL SALINE WASHES AND USE TWICE DAILY^Disp: 120 mL^Rfl: 2 triamcinolone acetonide (KENALOG) 0.1 % cream^Apply to affected area twice daily. For 7-10 days.^Disp: 45 g^Rfl: 0 Blood-Glucose Meter^Dispense 1 kit^Disp: 1 Each^Rfl: 0 FAMILY HISTORY Problem Relation Age of Onset Heart Mother stents Hypertension Mother other (pacemaker) Mother other (enlarged heart) Mother other (vertigo) Mother Prostate Cancer Father other (sjogrens) Sister Social History Tobacco Use Smoking status: Never Smokeless tobacco: Never Vaping Use Vaping Use: Never used Substance Use Topics Alcohol use: Not Currently Drug use: Never BP 134/80 Pulse 82 Temp 37.2 C (99 F) Resp 16 Wt 86.6 kg (191 lb) SpO2 98% BMI 33.30 kg/m Review of Systems Constitutional: Positive for malaise/fatigue. Negative for chills and fever. HENT: Positive for congestion, ear pain and sinus pain. Negative for ear discharge and sore throat. Eyes: Negative for blurred vision, pain, discharge and redness. Respiratory: Negative for cough, hemoptysis, sputum production, shortness of breath, wheezing and stridor. Cardiovascular: Negative for chest pain. Gastrointestinal: Negative for abdominal pain, diarrhea, nausea and vomiting. Musculoskeletal: Positive for myalgias. Skin: Negative for itching and rash. Neurological: Positive for headaches. Negative for dizziness. Objective Physical Exam Constitutional: General: She is not in acute distress. Appearance: She is not diaphoretic. HENT: Head: Normocephalic. Jaw: No trismus, tenderness, swelling or pain on movement. Right Ear: Tympanic membrane, ear canal and external ear normal. Left Ear: Tympanic membrane, ear canal and external ear normal. Nose: Congestion present. Right Sinus: Maxillary sinus tenderness present. No frontal sinus tenderness. Left Sinus: Maxillary sinus tenderness present. No frontal sinus tenderness. Mouth/Throat: Mouth: Mucous membranes are moist. Pharynx: Oropharynx is clear. Uvula midline. No pharyngeal swelling, oropharyngeal exudate, posterior oropharyngeal erythema or uvula swelling. Eyes: Conjunctiva/sclera: Conjunctivae normal. Pupils: Pupils are equal, round, and reactive to light. Cardiovascular: Rate and Rhythm: Normal rate and regular rhythm. Heart sounds: Normal heart sounds. Pulmonary: Effort: Pulmonary effort is normal. No tachypnea, accessory muscle usage or respiratory distress. Breath sounds: Normal breath sounds. No stridor. No wheezing, rhonchi or rales. Abdominal: General: There is no distension. Palpations: Abdomen is soft. Tenderness: There is no abdominal tenderness. There is no guarding or rebound. Musculoskeletal: Cervical back: Normal range of motion and neck supple. No edema, erythema, rigidity or tenderness. No pain with movement. Normal range of motion. Lymphadenopathy: Cervical: No cervical adenopathy. Skin: General: Skin is warm and dry. Neurological: Mental Status: She is alert and oriented to person, place, and time. ASSESSMENT/PLAN: 1. Bacterial sinusitis - ICD9: 473.9, 041.9, ICD10: J32.9, B96.89 Diagnosed with bacterial sinusitis. Placed on Augmentin. Patient was educated on supportive therapies. Patient will follow up with primary care provider as needed. Patient was instructed to immediately proceed to emergency room for any new, worsening, or symptoms lasting longer than anticipated. The patient's clinical presentation is otherwise unremarkable at this time. Based on exam and clinical finding, the patient is stable for discharge. Plan of care was discussed with patient. Patient verbalizes understanding and agrees to plan of care. This note was generated using [employer] software. It may contain errors in wording, punctuation, or spelling. John Rodriguez APRN.GIRLS SWIMMING COACH Subjective HPI ROS Objective Physical Exam documented in this encounter [facility] 12-03-2022 Note HNO ID: [id number] Author: Rubi Araya PA-C Service: ? Author Type: Physician Account Adjuster Type: Progress Notes Filed: 12/03/2022 11:19 AM Note Text: This note was created using [employer]. Subjective Cassia Holland is a 57 year old female. HPI Patient presents with right ankle and leg swelling over the past 2 days. She states she always has swelling in her legs but usually goes down at night. She started getting some redness and worsening swelling in the leg yesterday. She was up on her feet a lot yesterday. She does have a history of lupus and Raynaud's. No history of DVT. The pain does radiate up into her calf. No recent travel. No recent surgeries. No chest pain or shortness of breath. Review of Systems HENT: Negative. Respiratory: Negative. Cardiovascular: Positive for leg swelling. Gastrointestinal: Negative. All other systems reviewed and are negative. PAST MEDICAL HISTORY Diagnosis Date Diabetes (HCC) adult onset Fibromyalgia Graves disease High blood pressure HSV-2 infection Interstitial lung disease (HCC) Lupus (HCC) Mixed connective tissue disease (HCC) Raynaud disease Current Outpatient Medications Medication Sig Dispense Refill fluticasone (FLONASE) 50 mcg/actuation nasal spray Use 2 Sprays in each nostril once daily. 1 Each 3 hydroCHLOROthiazide 25 mg tablet take 1 tablet by mouth once daily 30 tablet 4 amLODIPine (NORVASC) 5 mg tablet take 1 tablet by mouth once daily 30 tablet 1 carvedilol (COREG) 6.25 mg tablet Take 6.25 mg by mouth twice daily with meals. ondansetron orally disintegrating (ZOFRAN ODT) 4 mg disintegrating tablet Take 1 tablet by mouth every 6 hours as needed for nausea/vomiting. 30 tablet 1 metFORMIN ER (GLUCOPHAGE XR) 500 mg 24 hr tablet Take 2 tablets by mouth twice daily with meals. 360 tablet 1 nystatin (MYCOSTATIN) powder Apply 1 application to affected area three times daily. 30 g 3 lansoprazole (PREVACID) 30 mg capsule Take 1 capsule by mouth daily before breakfast. 1/2 hr before meal. 30 capsule 11 losartan (COZAAR) 100 mg tablet Take 0.5 tablets by mouth once daily. 30 tablet 5 citalopram (CELEXA) 20 mg tablet Take 1 tablet by mouth once daily. 30 tablet 5 montelukast (SINGULAIR) 10 mg tablet take 1 tablet by mouth once daily 30 tablet 11 naproxen (NAPROSYN) 500 mg tablet take 1 tablet by mouth twice a day with food if needed for PAIN/INFLAMMATION 30 tablet 1 EPINEPHrine (EPIPEN) 0.3 mg/0.3 mL auto-injector Use per directed for severe allergic reaction 2 Each 1 lancets (PhagenesisTOUCH DELICA PLUS LANCET) 33 gauge Test blood sugar(s) 1 times daily. Dx: Type 2 DM - Controlled E11.9 Insulin: No 100 Each 11 blood sugar diagnostic (ONETOUCH ULTRA TEST) test strip use 1 TEST STRIP to TEST BLOOD SUGAR once daily 50 Strip 11 levalbuterol tartrate HFA (XOPENEX HFA) 45 mcg/actuation inhaler Inhale 1-2 Puffs as instructed every 4 hours as needed. 1 Inhaler 2 budesonide (PULMICORT) 1 mg/2 mL nebulizer solution INSTILL RESPULE IN NASAL SALINE WASHES AND USE TWICE DAILY 120 mL 2 triamcinolone acetonide (KENALOG) 0.1 % cream Apply to affected area twice daily. For 7-10 days. 45 g 0 Blood-Glucose Meter Dispense 1 kit 1 Each 0 Current Facility-Administered Medications Medication Dose Route Frequency Provider Last Rate Last Admin perflutren lipid microspheres 1.3 mL in NaCl (PF) 0.9% 10 mL injection (DEFINITY) INTRAVENOUS DIRECTED PRN Leda Brown, BOOKER.GIRLS SWIMMING COACH sodium chloride 0.9 % (flush) 10 mL (BD POSIFLUSH) 10 mL INTRAVENOUS DIRECTED PRN Leda Brown, BOOKER.GIRLS SWIMMING COACH PAST SURGICAL HISTORY Procedure Laterality Date D AND C HYSTERECTOMY LAPAROSCOPY DIAGNOSTIC PAST SURGICAL HISTORY OF 7 sinus surgeries PAST SURGICAL HISTORY OF bilateral cataract surgeries TONSILLECTOMY HX FAMILY HISTORY Problem Relation Age of Onset Heart Mother stents Hypertension Mother other (pacemaker) Mother other (enlarged heart) Mother other (vertigo) Mother Prostate Cancer Father other (sjogrens) Sister Social History Tobacco Use Smoking status: Never Smokeless tobacco: Never Vaping Use Vaping Use: Never used Substance Use Topics Alcohol use: Not Currently Drug use: Never Objective BP 142/84 Pulse 79 Temp 36.9 ?C (98.4 ?F) (Tympanic) Resp 18 Wt 85.3 kg (188 lb) SpO2 98% BMI 32.78 kg/m? Physical Exam Vitals reviewed. Constitutional: Appearance: Normal appearance. Musculoskeletal: Comments: Patient does have right-sided leg swelling to the lateral ankle area. She also has tenderness on palpation of the calf. Pedal pulses 2+. Skin: General: Skin is warm and dry. Neurological: Mental Status: She is alert. Assessment and Plan ASSESSMENT/PLAN: 1. Leg swelling - ICD9: 729.81, ICD10: M79.89 I am not able to get a ultrasound today to rule out DVT. Patient also not able to come back tomorrow for this. Recommended she be seen in the emergency department. She will go (more content not included)... [facility] 12-03-2022 History of Present illness Narrative This note was created using [employer]. Subjective Cassia Holland is a 57 year old female. HPI Patient presents with right ankle and leg swelling over the past 2 days. She states she always has swelling in her legs but usually goes down at night. She started getting some redness and worsening swelling in the leg yesterday. She was up on her feet a lot yesterday. She does have a history of lupus and Raynaud's. No history of DVT. The pain does radiate up into her calf. No recent travel. No recent surgeries. No chest pain or shortness of breath. Review of Systems HENT: Negative. Respiratory: Negative. Cardiovascular: Positive for leg swelling. Gastrointestinal: Negative. All other systems reviewed and are negative. PAST MEDICAL HISTORY Diagnosis Date Diabetes (HCC) adult onset Fibromyalgia Graves disease High blood pressure HSV-2 infection Interstitial lung disease (HCC) Lupus (HCC) Mixed connective tissue disease (HCC) Raynaud disease Current Outpatient Medications Medication Sig Dispense Refill fluticasone (FLONASE) 50 mcg/actuation nasal spray Use 2 Sprays in each nostril once daily. 1 Each 3 hydroCHLOROthiazide 25 mg tablet take 1 tablet by mouth once daily 30 tablet 4 amLODIPine (NORVASC) 5 mg tablet take 1 tablet by mouth once daily 30 tablet 1 carvedilol (COREG) 6.25 mg tablet Take 6.25 mg by mouth twice daily with meals. ondansetron orally disintegrating (ZOFRAN ODT) 4 mg disintegrating tablet Take 1 tablet by mouth every 6 hours as needed for nausea/vomiting. 30 tablet 1 metFORMIN ER (GLUCOPHAGE XR) 500 mg 24 hr tablet Take 2 tablets by mouth twice daily with meals. 360 tablet 1 nystatin (MYCOSTATIN) powder Apply 1 application to affected area three times daily. 30 g 3 lansoprazole (PREVACID) 30 mg capsule Take 1 capsule by mouth daily before breakfast. 1/2 hr before meal. 30 capsule 11 losartan (COZAAR) 100 mg tablet Take 0.5 tablets by mouth once daily. 30 tablet 5 citalopram (CELEXA) 20 mg tablet Take 1 tablet by mouth once daily. 30 tablet 5 montelukast (SINGULAIR) 10 mg tablet take 1 tablet by mouth once daily 30 tablet 11 naproxen (NAPROSYN) 500 mg tablet take 1 tablet by mouth twice a day with food if needed for PAIN/INFLAMMATION 30 tablet 1 EPINEPHrine (EPIPEN) 0.3 mg/0.3 mL auto-injector Use per directed for severe allergic reaction 2 Each 1 lancets (PostachioUCH DELICA PLUS LANCET) 33 gauge Test blood sugar(s) 1 times daily. Dx: Type 2 DM - Controlled E11.9 Insulin: No 100 Each 11 blood sugar diagnostic (PhagenesisTOUCH ULTRA TEST) test strip use 1 TEST STRIP to TEST BLOOD SUGAR once daily 50 Strip 11 levalbuterol tartrate HFA (XOPENEX HFA) 45 mcg/actuation inhaler Inhale 1-2 Puffs as instructed every 4 hours as needed. 1 Inhaler 2 budesonide (PULMICORT) 1 mg/2 mL nebulizer solution INSTILL RESPULE IN NASAL SALINE WASHES AND USE TWICE DAILY 120 mL 2 triamcinolone acetonide (KENALOG) 0.1 % cream Apply to affected area twice daily. For 7-10 days. 45 g 0 Blood-Glucose Meter Dispense 1 kit 1 Each 0 Current Facility-Administered Medications Medication Dose Route Frequency Provider Last Rate Last Admin perflutren lipid microspheres 1.3 mL in NaCl (PF) 0.9% 10 mL injection (DEFINITY) INTRAVENOUS DIRECTED PRN Leda Brown APRN.CNP sodium chloride 0.9 % (flush) 10 mL (BD POSIFLUSH) 10 mL INTRAVENOUS DIRECTED PRN Leda Brown, SCHOOL ATHLETIC DIRECTOR.GIRLS SWIMMING COACH PAST SURGICAL HISTORY Procedure Laterality Date D AND C HYSTERECTOMY LAPAROSCOPY DIAGNOSTIC PAST SURGICAL HISTORY OF 7 sinus surgeries PAST SURGICAL HISTORY OF bilateral cataract surgeries TONSILLECTOMY HX FAMILY HISTORY Problem Relation Age of Onset Heart Mother stents Hypertension Mother other (pacemaker) Mother other (enlarged heart) Mother other (vertigo) Mother Prostate Cancer Father other (sjogrens) Sister Social History Tobacco Use Smoking status: Never Smokeless tobacco: Never Vaping Use Vaping Use: Never used Substance Use Topics Alcohol use: Not Currently Drug use: Never Objective BP 142/84 Pulse 79 Temp 36.9 C (98.4 F) (Tympanic) Resp 18 Wt 85.3 kg (188 lb) SpO2 98% BMI 32.78 kg/m Physical Exam Vitals reviewed. Constitutional: Appearance: Normal appearance. Musculoskeletal: Comments: Patient does have right-sided leg swelling to the lateral ankle area. She also has tenderness on palpation of the calf. Pedal pulses 2+. Skin: General: Skin is warm and dry. Neurological: Mental Status: She is alert. Assessment and Plan ASSESSMENT/PLAN: 1. Leg swelling - ICD9: 729.81, ICD10: M79.89 I am not able to get a ultrasound today to rule out DVT. Patient also not able to come back tomorrow for this. Recommended she be seen in the emergency department. She will go to [facility] ER. Rubi Araya PA-C documented in this encounter [facility] 11-28-2022 Note Patient Outreach (IN [facility]) CASSIA HOLLAND ([id number]) 1965 F Date Time Provider Department 11/28/22 JOSR MATHEWS During your visit today, we recorded the following information about you: Allergies As of Date: 11/28/2022 Noted Allergy Reaction CANTALOUPE 01/22/2019 18 - Angioedema LEVAQUIN (LEVOFLOXACIN) 04/12/2021 2 - Rash SULFA (SULFONAMIDE ANTIBIOTICS) 01/22/2019 4 - Hives Date Reviewed: 10/12/2022 Reviewed by: Reyna Cunha MA - Fully Assessed Visit Diagnosis:Diabetes (HCC) [E11.9] Order(s):ALBUMIN/CREAT RATIO RND UR [SQUACR] Order #: [id number] FUTURE LIPID PANEL BASIC [SQLIPB] Order #: [id number] FUTURE Prescriptions as of 12/01/2022 - fluticasone (FLONASE) 50 mcg/actuation nasal spray Use 2 Sprays in each nostril once daily. - hydroCHLOROthiazide 25 mg tablet take 1 tablet by mouth once daily - amLODIPine (NORVASC) 5 mg tablet take 1 tablet by mouth once daily - carvedilol (COREG) 6.25 mg tablet Take 6.25 mg by mouth twice daily with meals. - ondansetron orally disintegrating (ZOFRAN ODT) 4 mg disintegrating tablet Take 1 tablet by mouth every 6 hours as needed for nausea/vomiting. - metFORMIN ER (GLUCOPHAGE XR) 500 mg 24 hr tablet Take 2 tablets by mouth twice daily with meals. - nystatin (MYCOSTATIN) powder Apply 1 application to affected area three times daily. - lansoprazole (PREVACID) 30 mg capsule Take 1 capsule by mouth daily before breakfast. 1/2 hr before meal. - losartan (COZAAR) 100 mg tablet Take 0.5 tablets by mouth once daily. - citalopram (CELEXA) 20 mg tablet Take 1 tablet by mouth once daily. - montelukast (SINGULAIR) 10 mg tablet take 1 tablet by mouth once daily - naproxen (NAPROSYN) 500 mg tablet take 1 tablet by mouth twice a day with food if needed for PAIN/INFLAMMATION - EPINEPHrine (EPIPEN) 0.3 mg/0.3 mL auto-injector Use per directed for severe allergic reaction - lancets (PostachioUCH DELICA PLUS LANCET) 33 gauge Test blood sugar(s) 1 times daily. Dx: Type 2 DM - Controlled E11.9 Insulin: No - blood sugar diagnostic (PhagenesisTOUCH ULTRA TEST) test strip use 1 TEST STRIP to TEST BLOOD SUGAR once daily - levalbuterol tartrate HFA (XOPENEX HFA) 45 mcg/actuation inhaler Inhale 1-2 Puffs as instructed every 4 hours as needed. - budesonide (PULMICORT) 1 mg/2 mL nebulizer solution INSTILL RESPULE IN NASAL SALINE WASHES AND USE TWICE DAILY - triamcinolone acetonide (KENALOG) 0.1 % cream Apply to affected area twice daily. For 7-10 days. - Blood-Glucose Meter Dispense 1 kit Facility-Administered Medications as of 12/01/2022 - perflutren lipid microspheres 1.3 mL in NaCl (PF) 0.9% 10 mL injection (DEFINITY) - sodium chloride 0.9 % (flush) 10 mL (BD POSIFLUSH) Problem List As Of Date 11/28/2022 Noted Resolved Diabetes (HCC) [E11.9] Hypertension [I10] Lupus (HCC) [M32.9] Graves disease [E05.00] Raynaud disease [I73.00] Mixed connective tissue disease (HCC) [M35.1] Interstitial lung disease (HCC) [J84.9] Fibromyalgia [M79.7] Cervicalgia [M54.2] 04/07/2021 Encounter Status:Closed by [employer] on 12/01/22 [facility] 11-20-2022 Miscellaneous Notes The following approved medication requests have been transmitted electronically. Requested Prescriptions Signed Prescriptions Disp Refills fluticasone (FLONASE) 50 mcg/actuation nasal spray 1 Each 3 Sig: Use 2 Sprays in each nostril once daily. Travon Cerrato APRN.ANTHONY Last office visit: 09/14/22 Next appointment scheduled: 12/14/22 Patient phones requesting refills as follows: Requested Prescriptions Pending Prescriptions Disp Refills fluticasone (FLONASE) 50 mcg/actuation nasal spray 1 Each 3 Sig: Use 2 Sprays in each nostril once daily. Deepti Hedrick LPN documented in this encounter [facility] 11-10-2022 Miscellaneous Notes November 13, 2022 PID: [id number] Cassia Holland [address] [place] [address] Dear Ms. Holland, We are pleased to inform you that the results of your recent breast imaging exam on 11/09/2022 are normal. Your mammogram demonstrates that you have dense breast tissue, which could hide abnormalities. Dense breast tissue, in and of itself, is a relatively common condition. Therefore, this information is not provided to cause undue concern; rather, it is to raise your awareness and promote discussion with your health care provider regarding the presence of dense breast tissue in addition to other risk factors. Early detection of cancer is very important. We also understand recommendations regarding breast cancer screening are controversial. Please discuss with your primary care provider which strategy is best for you and whether a mammogram is right for you. Your imaging studies and report will be kept on file at [facility] as part of your permanent medical record and are available for your continuing care. Thank you for allowing us to help in meeting your health care needs. Sincerely, Dr. Elam Interpreting Radiologist [facility] (Normal over 40) documented in this encounter [facility] 10-30-2022 Miscellaneous Notes Patient has been identified by name and date of : No Patient phones for refill(s): Requested Prescriptions Pending Prescriptions Disp Refills hydroCHLOROthiazide 25 mg tablet [Pharmacy Med Name: HYDROCHLOROTHIAZIDE 25 MG TAB] 30 tablet 4 Sig: take 1 tablet by mouth once daily Date of last office visit in primary care: 09/14/22 Last 2 Encounter Wt Readings: Date: Wt: 10/12/2022 87.8 kg (193 lb 8 oz) 09/14/2022 86.6 kg (191 lb) Previous labs/tests for medication: Blood Pressure: BUN (mg/dL) Date Value 09/14/2022 9 05/05/2021 9 Sodium (mmol/L) Date Value 09/14/2022 139 05/05/2021 132 Last 1 Encounter BP Readings: Date: BP: 10/12/2022 128/72 Please advise. Thank you. Michelle Judd LPN documented in this encounter [facility] 10-12-2022 Note HNO ID: [id number] Author: Chhaya Crowe MD Service: ? Author Type: Physician Type: Progress Notes Filed: 10/12/2022 10:57 AM Note Text: Director Semiconductor offered: Patient declines. Cassia is a 57 year old who presents for an annual gynecologic exam with complaints, fatigue . Postmenopausal: Yes HRT use: No. History of abnormal pap: No - no LEEP or CKC Last mammogram: 2021 had diagnostic imaging, dense breast tissue Patient concerns for STD exposure: No. 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 History Comments: Sexual Activity: Not Currently; No partner data on record Contraception: Surgical PAST MEDICAL HISTORY Diagnosis Date Diabetes (HCC) adult onset Fibromyalgia Graves disease High blood pressure HSV-2 infection Interstitial lung disease (HCC) Lupus (HCC) Mixed connective tissue disease (HCC) Raynaud disease PAST SURGICAL HISTORY Procedure Laterality Date D AND C HYSTERECTOMY LAPAROSCOPY DIAGNOSTIC PAST SURGICAL HISTORY OF 7 sinus surgeries PAST SURGICAL HISTORY OF bilateral cataract surgeries TONSILLECTOMY HX FAMILY HISTORY Problem Relation Age of Onset Heart Mother stents Hypertension Mother other (pacemaker) Mother other (enlarged heart) Mother other (vertigo) Mother Prostate Cancer Father other (sjogrens) Sister SOCIAL HISTORY Social History Tobacco Use Smoking status: Never Smokeless tobacco: Never Vaping Use Vaping Use: Never used Substance Use Topics Alcohol use: Not Currently Drug use: Never REVIEW OF SYSTEMS Abdomen: No abdominal pain, nausea, vomiting, diarrhea, or constipation. No bloating, early satiety, indigestion, or increased flatulence. Bladder: No dysuria, gross hematuria, urinary frequency, urinary urgency, or incontinence Breast: No breast lumps, nipple d/c, overlying skin changes, redness or skin retraction. Has noticed thickening of skin/tissue underneath her breasts Allergies and current medication updated:Yes EXAM: BP 128/72 Ht 5' 3.5 (1.61m) Wt 193 lb 8 oz (87.8kg) BMI 33.74 kg/(m2). GENERAL: pleasant, female in no apparent distress HEENT: Normocephalic, atraumatic, mucus membranes moist, and no lesions NECK: full range of motion DERMATOLOGY: without lesions BREAST: soft, non-tender, symmetric, no dominant mass, normal nipple-areolar complex, no lymphadenopathy, and no nipple discharge CHEST: Normal inspiratory effort ABDOMEN: soft, non-tender, and no masses PELVIC: external genitalia atrophic with erythema and swelling present, normal Bartholin's glands, urethra, Plains's glands, no vulvar lesions, good vaginal support, physiologic discharge present, normal appearing perineal body and perianal region BIMANUAL: no adnexal masses and non-tender RECTOVAGINAL: deferred. NEURO: exam grossly non-focal EXTREMITIES: normal ASSESSMENT/PLAN: 1) Health maintenance: Pap/HPV up to date Mammogram ordered - discussed 3D mammograms Nutrition, exercise and routine health maintenance exams reviewed Colon cancer screening: up to date with screening BMD: followed by PCP Vulvar itching: Atrophy and vulvar candidiasis noted today. Check vaginal BV, yeast. Pt not currently using estrogen cream but has is at home. Start Clotrimazole and Betamethasone BID for 2 weeks. Discussed with pt if itching returns and is persistent needs follow up appointment for vulvar biopsy. Discussed proper use of vaginal estrogen as well 2) Follow up one year or sooner as needed Chhyaa Crowe DO [facility] 10-12-2022 Instructions Chhaya Crowe MD - 10/12/2022 10:49 AM EDT - Use prescribed creams BID for 2 weeks. If symptoms return, call the office for a follow up appointment and would recommend biopsy at that time. If symptoms improve, can start estrogen cream nightly for 2 weeks and then 2 days a week documented in this encounter [facility] 10-12-2022 History of Present illness Narrative Director Semiconductor offered: Patient declines. Cassia is a 57 year old who presents for an annual gynecologic exam with complaints, fatigue . Postmenopausal: Yes HRT use: No. History of abnormal pap: No - no LEEP or CKC Last mammogram: 2021 had diagnostic imaging, dense breast tissue Patient concerns for STD exposure: No. 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 History Comments: Sexual Activity: Not Currently; No partner data on record Contraception: Surgical PAST MEDICAL HISTORY Diagnosis Date Diabetes (HCC) adult onset Fibromyalgia Graves disease High blood pressure HSV-2 infection Interstitial lung disease (HCC) Lupus (HCC) Mixed connective tissue disease (HCC) Raynaud disease PAST SURGICAL HISTORY Procedure Laterality Date D AND C HYSTERECTOMY LAPAROSCOPY DIAGNOSTIC PAST SURGICAL HISTORY OF 7 sinus surgeries PAST SURGICAL HISTORY OF bilateral cataract surgeries TONSILLECTOMY HX FAMILY HISTORY Problem Relation Age of Onset Heart Mother stents Hypertension Mother other (pacemaker) Mother other (enlarged heart) Mother other (vertigo) Mother Prostate Cancer Father other (sjogrens) Sister SOCIAL HISTORY Social History Tobacco Use Smoking status: Never Smokeless tobacco: Never Vaping Use Vaping Use: Never used Substance Use Topics Alcohol use: Not Currently Drug use: Never REVIEW OF SYSTEMS Abdomen: No abdominal pain, nausea, vomiting, diarrhea, or constipation. No bloating, early satiety, indigestion, or increased flatulence. Bladder: No dysuria, gross hematuria, urinary frequency, urinary urgency, or incontinence Breast: No breast lumps, nipple d/c, overlying skin changes, redness or skin retraction. Has noticed thickening of skin/tissue underneath her breasts Allergies and current medication updated:Yes EXAM: BP 128/72 Ht 5' 3.5 (1.61m) Wt 193 lb 8 oz (87.8kg) BMI 33.74 kg/(m^2). GENERAL: pleasant, female in no apparent distress HEENT: Normocephalic, atraumatic, mucus membranes moist, and no lesions NECK: full range of motion DERMATOLOGY: without lesions BREAST: soft, non-tender, symmetric, no dominant mass, normal nipple-areolar complex, no lymphadenopathy, and no nipple discharge CHEST: Normal inspiratory effort ABDOMEN: soft, non-tender, and no masses PELVIC: external genitalia atrophic with erythema and swelling present, normal Bartholin's glands, urethra, Plains's glands, no vulvar lesions, good vaginal support, physiologic discharge present, normal appearing perineal body and perianal region BIMANUAL: no adnexal masses and non-tender RECTOVAGINAL: deferred. NEURO: exam grossly non-focal EXTREMITIES: normal ASSESSMENT/PLAN: 1) Health maintenance: Pap/HPV up to date Mammogram ordered - discussed 3D mammograms Nutrition, exercise and routine health maintenance exams reviewed Colon cancer screening: up to date with screening BMD: followed by PCP Vulvar itching: Atrophy and vulvar candidiasis noted today. Check vaginal BV, yeast. Pt not currently using estrogen cream but has is at home. Start Clotrimazole and Betamethasone BID for 2 weeks. Discussed with pt if itching returns and is persistent needs follow up appointment for vulvar biopsy. Discussed proper use of vaginal estrogen as well 2) Follow up one year or sooner as needed Chhaya Crowe DO documented in this encounter [facility] 10-09-2022 Miscellaneous Notes Patient has been identified by name and date of : No Patient phones for refill(s): Requested Prescriptions Pending Prescriptions Disp Refills amLODIPine (NORVASC) 5 mg tablet [Pharmacy Med Name: AMLODIPINE BESYLATE 5 MG TAB] 30 tablet 1 Sig: take 1 tablet by mouth once daily Date of last office visit in primary care: 09/14/22 Last 2 Encounter Wt Readings: Date: Wt: 09/14/2022 86.6 kg (191 lb) 09/04/2022 88 kg (194 lb) Previous labs/tests for medication: Blood Pressure: BUN (mg/dL) Date Value 09/14/2022 9 05/05/2021 9 Sodium (mmol/L) Date Value 09/14/2022 139 05/05/2021 132 Last 1 Encounter BP Readings: Date: BP: 09/14/2022 138/82 Please advise. Thank you. Michelle Judd LPN documented in this encounter [facility] 09-21-2022 Note HNO ID: [id number] Author: Ariadna Pérez RDMS Service: ? Author Type: Director Of Financial Reporting Type: Progress Notes Filed: 09/21/2022 7:32 AM Note Text: Radiology Service Progress Note PATIENT NAME: Cassia Holland DATE OF SERVICE: September 21, 2022 TIME: 7:31 AM PATIENT IDENTITY VERIFICATION COMPLETED USING TWO (2) IDENTIFIERS: Name and Date of confirmed by patient verbally. FALL SCREENING: Has the patient had 2 falls in the last year or 1 fall with injury or currently using an Ambulatory Assistive Device (Walker, Cane, Wheelchair, Crutches, etc.)? No PATIENT GENDER DATA: Female. status: : No status: NO. PATIENT RELEVANT IMPLANT DATA REVIEWED: Not Applicable RADIOLOGY DEPARTMENT: Ultrasound PERIPHERAL IV DATA: Not applicable SIGNED BY: Ariadna Pérez RDMS September 21, 2022 7:[address] [facility] 09-21-2022 History of Present illness Narrative Radiology Service Progress Note PATIENT NAME: Cassia Holland DATE OF SERVICE: September 21, 2022 TIME: 7:31 AM PATIENT IDENTITY VERIFICATION COMPLETED USING TWO (2) IDENTIFIERS: Name and Date of confirmed by patient verbally. FALL SCREENING: Has the patient had 2 falls in the last year or 1 fall with injury or currently using an Ambulatory Assistive Device (Walker, Cane, Wheelchair, Crutches, etc.)? No PATIENT GENDER DATA: Female. status: : No status: NO. PATIENT RELEVANT IMPLANT DATA REVIEWED: Not Applicable RADIOLOGY DEPARTMENT: Ultrasound PERIPHERAL IV DATA: Not applicable SIGNED BY: Ariadna Pérez RDMS September 21, 2022 7:31 AM documented in this encounter [facility] 09-14-2022 Note HNO ID: [id number] Author: Leda Brown APRN.GIR[employer] SWIMMING COACH Service: ? Author Type: Nurse Practitioner Type: Progress Notes Filed: 09/14/2022 9:41 AM Note Text: CC: Patient presents with: Recheck: 2 week BP follow up HPI Cassia Holland is a 57 year old female complex patient who presents today for routine follow up for blood pressure and diabetes. Currently on antibiotic for sinusitis. Feels much better as symptoms are resolving but now states she has vaginal itching and yeast infection. Awaiting a calcium scoring test as ordered by [facility]. Has some dizziness she attributes to this. Has palpitations which she has noticed have been improving as well. DIABETES MELLITUS: Ms. Holland denies excessive thirst or increased frequency of urination, chest pain or dyspnea , numbness, tingling or pain in extremities, new or unusual visual symptoms, low sugar/hypoglycemic reactions, weight loss/gain, and bowel changes/loose stools. Follows a diabetic diet most of the time. She is compliant with medication(s) and is tolerating med(s) without any side effects. She reports checking her glucose on a infrequent to not at all basis schedule . Patient's last HgA1C was Hemoglobin A1C (%) Date Value 06/15/2022 8.6 05/05/2021 7.3 12/24/2020 9.1 Hemoglobin A1C (POCT) (%) Date Value 01/19/2022 7.2 10/13/2021 8.4 ) Last Ophthalmology exam was over a year but has an appointment with Dr Painting in a week. Liver Fibrosis: Last fibro scan done in fall showing moderate to severe fibrosis. Feels her chronic nausea is more frequent. Has continuous tingling to RUQ but when she leans or slouches will get stabbing to achy pressure to RUQ. Sees her environmental services lead at the end of October for follow up. Denies any bowel changes, light colored stool, or vomiting. HTN: Ms. Holland indicates that she is feeling well and denies any symptoms referable to elevated blood pressure. Specifically denies headache, chest pain, dyspnea, and peripheral edema. Patient denies any side effects of her medication(s) and is compliant with their regimen. She does check BP's away from this office with average BP's in the 130s-140s/80s range. Cassia denies regular aerobic exercise. She watches her diet for sodium, low fat and low cholesterol most of the time. Last 3 Encounter BP Readings: Date: BP: 09/14/2022 142/82 - 138/82 09/04/2022 144/90 08/17/2022 152/90 REVIEW OF SYSTEMS General: no fevers, no chills, no night sweats, no recurrent infections, no change in appetite, no change in energy, and no significant changes in weight Respiratory: no cough, no wheezing, no shortness of breath, no hemoptysis Cardiovascular: no chest pain, no chest pressure, no palpitations, and no swelling GI: No nausea, vomiting, or diarrhea Psych: PHQ2 is 0 Endocrine: no fatigue, no polyuria, no polyphagia, and no polydipsia Neurologic: No headache, weakness, memory loss, syncope. PAST MEDICAL HISTORY Diagnosis Date Diabetes (HCC) adult onset Fibromyalgia Graves disease High blood pressure HSV-2 infection Interstitial lung disease (HCC) Lupus (HCC) Mixed connective tissue disease (HCC) Raynaud disease PAST SURGICAL HISTORY Procedure Laterality Date D AND C HYSTERECTOMY LAPAROSCOPY DIAGNOSTIC PAST SURGICAL HISTORY OF 7 sinus surgeries PAST SURGICAL HISTORY OF bilateral cataract surgeries TONSILLECTOMY HX ALLERGIES Cantaloupe, Levaquin [Levofloxacin], and Sulfa (Sulfonamide Antibiotics) MEDICATIONS amoxicillin-clavulanic acid (AUGMENTIN) 875-125 mg per tabletTake 1 tablet by mouth twice daily for 10 days.Disp: 20 tabletRfl: 0 carvedilol (COREG) 6.25 mg tabletTake 6.25 mg by mouth twice daily with meals.Disp: Rfl: amLODIPine (NORVASC) 5 mg tabletTake 1 tablet by mouth once daily.Disp: 30 tabletRfl: 1 ondansetron orally disintegrating (ZOFRAN ODT) 4 mg disintegrating tabletTake 1 tablet by mouth every 6 hours as needed for nausea/vomiting.Disp: 30 tabletRfl: 1 metFORMIN ER (GLUCOPHAGE XR) 500 mg 24 hr tabletTake 2 tablets by mouth twice daily with meals.Disp: 360 tabletRfl: 1 nystatin (MYCOSTATIN) powderApply 1 application to affected area three times daily.Disp: 30 gRfl: 3 lansoprazole (PREVACID) 30 mg capsuleTake 1 capsule by mouth daily before breakfast. 1/2 hr before meal.Disp: 30 capsuleRfl: 11 hydroCHLOROthiazide (HYDRODIURIL, ESIDRIX) 25 mg tabletTake 1 tablet by mouth once daily.Disp: 30 tabletRfl: 4 losartan (COZAAR) 100 mg tabletTake 0.5 tablets by mouth once daily.Disp: 30 tabletRfl: 5 citalopram (CELEXA) 20 mg tabletTake 1 tablet by mouth once daily.Disp: 30 tabletRfl: 5 montelukast (SINGULAIR) 10 mg tablettake 1 tablet by mouth once dailyDisp: 30 tabletRfl: 11 naproxen (NAPROSYN) 500 mg tablettake 1 tablet by mouth twice a day with food if needed for PAIN/INFLAMMATIONDisp: 30 tabletRfl: 1 fluticasone (FLONASE) 50 mcg/actuation nasal sprayUse 2 Sprays in each nost (more content not included)... [facility] 09-14-2022 History of Present illness Narrative CC: Patient presents with: Recheck: 2 week BP follow up HPI Cassia Holland is a 57 year old female complex patient who presents today for routine follow up for blood pressure and diabetes. Currently on antibiotic for sinusitis. Feels much better as symptoms are resolving but now states she has vaginal itching and yeast infection. Awaiting a calcium scoring test as ordered by [facility]. Has some dizziness she attributes to this. Has palpitations which she has noticed have been improving as well. DIABETES MELLITUS: Ms. Holland denies excessive thirst or increased frequency of urination, chest pain or dyspnea , numbness, tingling or pain in extremities, new or unusual visual symptoms, low sugar/hypoglycemic reactions, weight loss/gain, and bowel changes/loose stools. Follows a diabetic diet most of the time. She is compliant with medication(s) and is tolerating med(s) without any side effects. She reports checking her glucose on a infrequent to not at all basis schedule . Patient's last HgA1C was Hemoglobin A1C (%) Date Value 06/15/2022 8.6 05/05/2021 7.3 12/24/2020 9.1 Hemoglobin A1C (POCT) (%) Date Value 01/19/2022 7.2 10/13/2021 8.4 ) Last Ophthalmology exam was over a year but has an appointment with Dr Painting in a week. Liver Fibrosis: Last fibro scan done in fall showing moderate to severe fibrosis. Feels her chronic nausea is more frequent. Has continuous tingling to RUQ but when she leans or slouches will get stabbing to achy pressure to RUQ. Sees her environmental services lead at the end of October for follow up. Denies any bowel changes, light colored stool, or vomiting. HTN: Ms. Holland indicates that she is feeling well and denies any symptoms referable to elevated blood pressure. Specifically denies headache, chest pain, dyspnea, and peripheral edema. Patient denies any side effects of her medication(s) and is compliant with their regimen. She does check BP's away from this office with average BP's in the 130s-140s/80s range. Cassia denies regular aerobic exercise. She watches her diet for sodium, low fat and low cholesterol most of the time. Last 3 Encounter BP Readings: Date: BP: 09/14/2022 142/82 - 138/82 09/04/2022 144/90 08/17/2022 152/90 REVIEW OF SYSTEMS General: no fevers, no chills, no night sweats, no recurrent infections, no change in appetite, no change in energy, and no significant changes in weight Respiratory: no cough, no wheezing, no shortness of breath, no hemoptysis Cardiovascular: no chest pain, no chest pressure, no palpitations, and no swelling GI: No nausea, vomiting, or diarrhea Psych: PHQ2 is 0 Endocrine: no fatigue, no polyuria, no polyphagia, and no polydipsia Neurologic: No headache, weakness, memory loss, syncope. PAST MEDICAL HISTORY Diagnosis Date Diabetes (HCC) adult onset Fibromyalgia Graves disease High blood pressure HSV-2 infection Interstitial lung disease (HCC) Lupus (HCC) Mixed connective tissue disease (HCC) Raynaud disease PAST SURGICAL HISTORY Procedure Laterality Date D AND C HYSTERECTOMY LAPAROSCOPY DIAGNOSTIC PAST SURGICAL HISTORY OF 7 sinus surgeries PAST SURGICAL HISTORY OF bilateral cataract surgeries TONSILLECTOMY HX ALLERGIES Cantaloupe, Levaquin [Levofloxacin], and Sulfa (Sulfonamide Antibiotics) MEDICATIONS amoxicillin-clavulanic acid (AUGMENTIN) 875-125 mg per tablet^Take 1 tablet by mouth twice daily for 10 days.^Disp: 20 tablet^Rfl: 0 carvedilol (COREG) 6.25 mg tablet^Take 6.25 mg by mouth twice daily with meals.^Disp: ^Rfl: amLODIPine (NORVASC) 5 mg tablet^Take 1 tablet by mouth once daily.^Disp: 30 tablet^Rfl: 1 ondansetron orally disintegrating (ZOFRAN ODT) 4 mg disintegrating tablet^Take 1 tablet by mouth every 6 hours as needed for nausea/vomiting.^Disp: 30 tablet^Rfl: 1 metFORMIN ER (GLUCOPHAGE XR) 500 mg 24 hr tablet^Take 2 tablets by mouth twice daily with meals.^Disp: 360 tablet^Rfl: 1 nystatin (MYCOSTATIN) powder^Apply 1 application to affected area three times daily.^Disp: 30 g^Rfl: 3 lansoprazole (PREVACID) 30 mg capsule^Take 1 capsule by mouth daily before breakfast. 1/2 hr before meal.^Disp: 30 capsule^Rfl: 11 hydroCHLOROthiazide (HYDRODIURIL, ESIDRIX) 25 mg tablet^Take 1 tablet by mouth once daily.^Disp: 30 tablet^Rfl: 4 losartan (COZAAR) 100 mg tablet^Take 0.5 tablets by mouth once daily.^Disp: 30 tablet^Rfl: 5 citalopram (CELEXA) 20 mg tablet^Take 1 tablet by mouth once daily.^Disp: 30 tablet^Rfl: 5 montelukast (SINGULAIR) 10 mg tablet^take 1 tablet by mouth once daily^Disp: 30 tablet^Rfl: 11 naproxen (NAPROSYN) 500 mg tablet^take 1 tablet by mouth twice a day with food if needed for PAIN/INFLAMMATION^Disp: 30 tablet^Rfl: 1 fluticasone (FLONASE) 50 mcg/actuation nasal spray^Use 2 Sprays in each nostril once daily.^Disp: 1 Each^Rfl: 3 EPINEPHrine (EPIPEN) 0.3 mg/0.3 mL auto-injector^Use per directed for severe allergic reaction^Disp: 2 Each^Rfl: 1 lancets ([employer] DELICA PLUS LANCET) 33 gauge^Test blood sugar(s) 1 times daily. Dx: Type 2 DM - Controlled E11.9 Insulin: No^Disp: 100 Each^Rfl: 11 blood sugar diagnostic (PostachioUCH ULTRA TEST) test strip^use 1 TEST STRIP to TEST BLOOD SUGAR once daily^Disp: 50 Strip^Rfl: 11 levalbuterol tartrate HFA (XOPENEX HFA) 45 mcg/actuation inhaler^Inhale 1-2 Puffs as instructed every 4 hours as needed.^Disp: 1 Inhaler^Rfl: 2 budesonide (PULMICORT) 1 mg/2 mL nebulizer solution^INSTILL RESPULE IN NASAL SALINE WASHES AND USE TWICE DAILY^Disp: 120 mL^Rfl: 2 triamcinolone acetonide (KENALOG) 0.1 % cream^Apply to affected area twice daily. For 7-10 days.^Disp: 45 g^Rfl: 0 Blood-Glucose Meter^Dispense 1 kit^Disp: 1 Each^Rfl: 0 FAMILY HISTORY Problem Relation Age of Onset Heart Mother stents Hypertension Mother other (pacemaker) Mother other (enlarged heart) Mother other (vertigo) Mother Prostate Cancer Father other (sjogrens) Sister Social History Tobacco Use Smoking status: Never Smokeless tobacco: Never Vaping Use Vaping Use: Never used Substance Use Topics Alcohol use: Not Currently Comment: rare Drug use: Never PHYSICAL EXAM BP 138/82 Pulse 80 Resp 16 Wt 86.6 kg (191 lb) BMI 34.93 kg/m General Appearance: well appearing, in no acute distress, alert Pysch: mood and affect broad and appropriate Skin: Skin color, texture, turgor normal for age; Eyes: conjunctiva pink and moist, no icterus, sclera white, non-injected Lungs: Lungs clear to auscultation. No wheezing, rhonchi, rales. Heart: RRR without murmur, gallop, or rubs. No ectopy Abdomen: Abdomen soft, . Bowel sounds normal. No masses, Tenderness to RUQ noted on exam with grimacing. No guarding rigidity or rebound pain noted. BUE Extremities: No deformities, edema, skin discoloration, clubbing or cyanosis. Good capillary refill. Health maintenance reviewed with patient: HEPATITIS B(1 of 3 - 3-dose series) Never done PNEUMOCOCCAL(1 - PCV) Never done HIV SCREENING Never done BP CONTROLLED (<130/80) Never done DTAP,TDAP,TD(1 - Tdap) Never done HPV TESTING Never done SHINGRIX VACCINE(1 of 2) Never done COVID-19 VACCINE(3 - Booster for Moderna series) due on 10/29/2020 DILATED RETINAL EXAM due on 03/09/2021 DIABETIC FOOT EXAM due on 03/07/2022 DEPRESSION ASSESSMENT Never done HBA1C due on 2022 MAMMOGRAM due on 09/22/2022 URINE ALBUMIN:CREATININE RATIO due on 01/19/2023 LDL CHOLESTEROL due on 01/19/2023 COLORECTAL CANCER SCREENING due on 01/21/2023 ANNUAL PCP TEAM CHRONIC DISEASE VISIT due on 09/05/2023 INFLUENZA Completed HEPATITIS C SCREENING Completed PAP TESTING Discontinued DATA REVIEWED: No new labs ASSESSMENT/PLAN: 1. Type 2 diabetes mellitus without complication, without long-term current use of insulin (HCC) - ICD9: 250.00, ICD10: E11.9 (primary diagnosis) Control unknown - Continue current medications - Blood glucose monitoring on a once daily schedule - Counseled on healthy diet and regular exercise - Discussed need for and benefit of weight loss. BMI 34.93 kg/(m^2) - COMP METABOLIC PANEL - CBC + DIFF - HGB A1C - follow up in 3 months 2. Hypertension, unspecified type - ICD9: 401.9, ICD10: I10 - suboptimal control - continue with cardiology recommendations - Continue current medication(s) - Recommended regular aerobic exercise. - Recommend home blood pressure monitoring, to bring results in on next visit - Goal of BP <130/80 - COMP METABOLIC PANEL - CBC + DIFF 3. Liver fibrosis - ICD9: 571.5, ICD10: K74.00 With the increase in nausea pain and tenderness, will re-evaluate via US for any changes - continue with recommendations by hepatology - COMP METABOLIC PANEL - CBC + DIFF - US ABD RIGHT UPPER QUADRANT 4. RUQ pain - ICD9: 789.01, ICD10: R10.11 As above 5. Vaginal candidiasis - ICD9: 112.1, ICD10: B37.31 Diflucan as ordered - if no improvement or change in symptoms follow up for further evaluation 6. Palpitations - ICD9: 785.1, ICD10: R00.2 - improving - continue with recommendations by cardiology and upcoming cardiac testing. Prescription instructions reviewed with patient as applicable. Potential red flag symptoms discussed with the patient. Reviewed appropriate action plan to take if red flag symptoms occur. Patient agreeable to treatment plan. Leda Brown APRN.CNP documented in this encounter [facility] 09-04-2022 Note HNO ID: [id number] Author: Leda Brown APRN.CNP Service: ? Author Type: Nurse Practitioner Type: Progress Notes Filed: 09/04/2022 2:58 PM Note Text: CC: Patient presents with: Head Congestion: Head congestion, cough, sinus pain, headaches x 3 days HPI Cassia Holland is a 56 year old female who presents today for congestion. Has had symptoms for over a week and feels it is getting worse. Has green nasal drainage and congestion that she feels smells foul, sinus pressure with headache, nonproductive cough, and fatigue. Denies fever, chills, change in her chest pain she is seeing cardiology for, or shortness of breath. Does have chronic sinus issues she has needed to see ENT for. Has tried hot tea, tylenol, flonase, and mucinex. REVIEW OF SYSTEMS General: no fevers, no chills, no night sweats, no recurrent infections, no change in appetite, and no significant changes in weight HEENT: no changes in hearing, no visual changes Respiratory: no wheezing, no shortness of breath, no hemoptysis Cardiovascular: no chest pain, no chest pressure, no palpitations, and no swelling Neurologic: No weakness, numbness, tingling, dizziness, memory loss, syncope. PAST MEDICAL HISTORY Diagnosis Date Diabetes (HCC) adult onset Fibromyalgia Graves disease High blood pressure HSV-2 infection Interstitial lung disease (HCC) Lupus (HCC) Mixed connective tissue disease (HCC) Raynaud disease PAST SURGICAL HISTORY Procedure Laterality Date D AND C HYSTERECTOMY LAPAROSCOPY DIAGNOSTIC PAST SURGICAL HISTORY OF 7 sinus surgeries PAST SURGICAL HISTORY OF bilateral cataract surgeries TONSILLECTOMY HX ALLERGIES Cantaloupe, Levaquin [Levofloxacin], and Sulfa (Sulfonamide Antibiotics) MEDICATIONS carvedilol (COREG) 6.25 mg tabletTake 6.25 mg by mouth twice daily with meals.Disp: Rfl: amLODIPine (NORVASC) 5 mg tabletTake 1 tablet by mouth once daily.Disp: 30 tabletRfl: 1 ondansetron orally disintegrating (ZOFRAN ODT) 4 mg disintegrating tabletTake 1 tablet by mouth every 6 hours as needed for nausea/vomiting.Disp: 30 tabletRfl: 1 metFORMIN ER (GLUCOPHAGE XR) 500 mg 24 hr tabletTake 2 tablets by mouth twice daily with meals.Disp: 360 tabletRfl: 1 nystatin (MYCOSTATIN) powderApply 1 application to affected area three times daily.Disp: 30 gRfl: 3 lansoprazole (PREVACID) 30 mg capsuleTake 1 capsule by mouth daily before breakfast. 1/2 hr before meal.Disp: 30 capsuleRfl: 11 hydroCHLOROthiazide (HYDRODIURIL, ESIDRIX) 25 mg tabletTake 1 tablet by mouth once daily.Disp: 30 tabletRfl: 4 losartan (COZAAR) 100 mg tabletTake 0.5 tablets by mouth once daily.Disp: 30 tabletRfl: 5 citalopram (CELEXA) 20 mg tabletTake 1 tablet by mouth once daily.Disp: 30 tabletRfl: 5 montelukast (SINGULAIR) 10 mg tablettake 1 tablet by mouth once dailyDisp: 30 tabletRfl: 11 naproxen (NAPROSYN) 500 mg tablettake 1 tablet by mouth twice a day with food if needed for PAIN/INFLAMMATIONDisp: 30 tabletRfl: 1 fluticasone (FLONASE) 50 mcg/actuation nasal sprayUse 2 Sprays in each nostril once daily.Disp: 1 EachRfl: 3 EPINEPHrine (EPIPEN) 0.3 mg/0.3 mL auto-injectorUse per directed for severe allergic reactionDisp: 2 EachRfl: 1 lancets (PhagenesisTOUCH DELICA PLUS LANCET) 33 gaugeTest blood sugar(s) 1 times daily. Dx: Type 2 DM - Controlled E11.9 Insulin: NoDisp: 100 EachRfl: 11 blood sugar diagnostic (PhagenesisTOUCH ULTRA TEST) test stripuse 1 TEST STRIP to TEST BLOOD SUGAR once dailyDisp: 50 StripRfl: 11 levalbuterol tartrate HFA (XOPENEX HFA) 45 mcg/actuation inhalerInhale 1-2 Puffs as instructed every 4 hours as needed.Disp: 1 InhalerRfl: 2 budesonide (PULMICORT) 1 mg/2 mL nebulizer solutionINSTILL RESPULE IN NASAL SALINE WASHES AND USE TWICE DAILYDisp: 120 mLRfl: 2 triamcinolone acetonide (KENALOG) 0.1 % creamApply to affected area twice daily. For 7-10 days.Disp: 45 gRfl: 0 Blood-Glucose MeterDispense 1 kitDisp: 1 EachRfl: 0 FAMILY HISTORY Problem Relation Age of Onset Heart Mother stents Hypertension Mother other (pacemaker) Mother other (enlarged heart) Mother other (vertigo) Mother Prostate Cancer Father other (sjogrens) Sister Social History Tobacco Use Smoking status: Never Smokeless tobacco: Never Vaping Use Vaping Use: Never used Substance Use Topics Alcohol use: Not Currently Comment: rare Drug use: Never PHYSICAL EXAM BP 144/90 Pulse 86 Temp 36.5 ?C (97.7 ?F) (Temporal) Resp 16 Wt 88 kg (194 lb) SpO2 98% BMI 35.48 kg/m? General Appearance: well appearing, in no acute distress, alert Skin: Skin color, texture, turgor normal for age; Eyes: conjunctiva pink and moist, no icterus, sclera white, non-injected Ears: external ears normal to inspection and palpation, canals clear, Left tympanic membrane normal. , Right tympanic membrane normal Nose/sinus: Nares normal. Septum midline. Mucosa normal. No drainage. Sinus tenderness reported to both maxill (more content not included)... [facility] 09-04-2022 History of Present illness Narrative CC: Patient presents with: Head Congestion: Head congestion, cough, sinus pain, headaches x 3 days HPI Cassia Holland is a 56 year old female who presents today for congestion. Has had symptoms for over a week and feels it is getting worse. Has green nasal drainage and congestion that she feels smells foul, sinus pressure with headache, nonproductive cough, and fatigue. Denies fever, chills, change in her chest pain she is seeing cardiology for, or shortness of breath. Does have chronic sinus issues she has needed to see ENT for. Has tried hot tea, tylenol, flonase, and mucinex. REVIEW OF SYSTEMS General: no fevers, no chills, no night sweats, no recurrent infections, no change in appetite, and no significant changes in weight HEENT: no changes in hearing, no visual changes Respiratory: no wheezing, no shortness of breath, no hemoptysis Cardiovascular: no chest pain, no chest pressure, no palpitations, and no swelling Neurologic: No weakness, numbness, tingling, dizziness, memory loss, syncope. PAST MEDICAL HISTORY Diagnosis Date Diabetes (HCC) adult onset Fibromyalgia Graves disease High blood pressure HSV-2 infection Interstitial lung disease (HCC) Lupus (HCC) Mixed connective tissue disease (HCC) Raynaud disease PAST SURGICAL HISTORY Procedure Laterality Date D AND C HYSTERECTOMY LAPAROSCOPY DIAGNOSTIC PAST SURGICAL HISTORY OF 7 sinus surgeries PAST SURGICAL HISTORY OF bilateral cataract surgeries TONSILLECTOMY HX ALLERGIES Cantaloupe, Levaquin [Levofloxacin], and Sulfa (Sulfonamide Antibiotics) MEDICATIONS carvedilol (COREG) 6.25 mg tablet^Take 6.25 mg by mouth twice daily with meals.^Disp: ^Rfl: amLODIPine (NORVASC) 5 mg tablet^Take 1 tablet by mouth once daily.^Disp: 30 tablet^Rfl: 1 ondansetron orally disintegrating (ZOFRAN ODT) 4 mg disintegrating tablet^Take 1 tablet by mouth every 6 hours as needed for nausea/vomiting.^Disp: 30 tablet^Rfl: 1 metFORMIN ER (GLUCOPHAGE XR) 500 mg 24 hr tablet^Take 2 tablets by mouth twice daily with meals.^Disp: 360 tablet^Rfl: 1 nystatin (MYCOSTATIN) powder^Apply 1 application to affected area three times daily.^Disp: 30 g^Rfl: 3 lansoprazole (PREVACID) 30 mg capsule^Take 1 capsule by mouth daily before breakfast. 1/2 hr before meal.^Disp: 30 capsule^Rfl: 11 hydroCHLOROthiazide (HYDRODIURIL, ESIDRIX) 25 mg tablet^Take 1 tablet by mouth once daily.^Disp: 30 tablet^Rfl: 4 losartan (COZAAR) 100 mg tablet^Take 0.5 tablets by mouth once daily.^Disp: 30 tablet^Rfl: 5 citalopram (CELEXA) 20 mg tablet^Take 1 tablet by mouth once daily.^Disp: 30 tablet^Rfl: 5 montelukast (SINGULAIR) 10 mg tablet^take 1 tablet by mouth once daily^Disp: 30 tablet^Rfl: 11 naproxen (NAPROSYN) 500 mg tablet^take 1 tablet by mouth twice a day with food if needed for PAIN/INFLAMMATION^Disp: 30 tablet^Rfl: 1 fluticasone (FLONASE) 50 mcg/actuation nasal spray^Use 2 Sprays in each nostril once daily.^Disp: 1 Each^Rfl: 3 EPINEPHrine (EPIPEN) 0.3 mg/0.3 mL auto-injector^Use per directed for severe allergic reaction^Disp: 2 Each^Rfl: 1 lancets (PhagenesisTOUCH DELICA PLUS LANCET) 33 gauge^Test blood sugar(s) 1 times daily. Dx: Type 2 DM - Controlled E11.9 Insulin: No^Disp: 100 Each^Rfl: 11 blood sugar diagnostic (PhagenesisTOUCH ULTRA TEST) test strip^use 1 TEST STRIP to TEST BLOOD SUGAR once daily^Disp: 50 Strip^Rfl: 11 levalbuterol tartrate HFA (XOPENEX HFA) 45 mcg/actuation inhaler^Inhale 1-2 Puffs as instructed every 4 hours as needed.^Disp: 1 Inhaler^Rfl: 2 budesonide (PULMICORT) 1 mg/2 mL nebulizer solution^INSTILL RESPULE IN NASAL SALINE WASHES AND USE TWICE DAILY^Disp: 120 mL^Rfl: 2 triamcinolone acetonide (KENALOG) 0.1 % cream^Apply to affected area twice daily. For 7-10 days.^Disp: 45 g^Rfl: 0 Blood-Glucose Meter^Dispense 1 kit^Disp: 1 Each^Rfl: 0 FAMILY HISTORY Problem Relation Age of Onset Heart Mother stents Hypertension Mother other (pacemaker) Mother other (enlarged heart) Mother other (vertigo) Mother Prostate Cancer Father other (sjogrens) Sister Social History Tobacco Use Smoking status: Never Smokeless tobacco: Never Vaping Use Vaping Use: Never used Substance Use Topics Alcohol use: Not Currently Comment: rare Drug use: Never PHYSICAL EXAM BP 144/90 Pulse 86 Temp 36.5 C (97.7 F) (Temporal) Resp 16 Wt 88 kg (194 lb) SpO2 98% BMI 35.48 kg/m General Appearance: well appearing, in no acute distress, alert Skin: Skin color, texture, turgor normal for age; Eyes: conjunctiva pink and moist, no icterus, sclera white, non-injected Ears: external ears normal to inspection and palpation, canals clear, Left tympanic membrane normal. , Right tympanic membrane normal Nose/sinus: Nares normal. Septum midline. Mucosa normal. No drainage. Sinus tenderness reported to both maxillary and facial sinuses Neck: Thyroid normal size and symmetric without palpable nodules, Neck supple, No adenopathy Oropharynx: tongue midline and normal, soft palate, uvula, and tonsils normal, palpation of salivary glands negative Lymph nodes: No cervical lymphadenopathy and No supraclavicular lymphadenopathy Lungs: Lungs clear to auscultation. No wheezing, rhonchi, rales. Heart: RRR without murmur, gallop, or rubs. No ectopy Health maintenance reviewed with patient: HEPATITIS B(1 of 3 - 3-dose series) Never done PNEUMOCOCCAL(1 - PCV) Never done HIV SCREENING Never done BP CONTROLLED (<130/80) Never done DTAP,TDAP,TD(1 - Tdap) Never done HPV TESTING Never done SHINGRIX VACCINE(1 of 2) Never done COVID-19 VACCINE(3 - Booster for Moderna series) due on 10/29/2020 DILATED RETINAL EXAM due on 03/09/2021 DIABETIC FOOT EXAM due on 03/07/2022 DEPRESSION ASSESSMENT Never done MAMMOGRAM due on 09/22/2022 HBA1C due on 2022 URINE ALBUMIN:CREATININE RATIO due on 01/19/2023 LDL CHOLESTEROL due on 01/19/2023 COLORECTAL CANCER SCREENING due on 01/21/2023 ANNUAL PCP TEAM CHRONIC DISEASE VISIT due on 08/18/2023 INFLUENZA Completed HEPATITIS C SCREENING Completed PAP TESTING Discontinued DATA REVIEWED: No new labs ASSESSMENT/PLAN: 1. Acute recurrent sinusitis, unspecified location - ICD9: 461.9, ICD10: J01.91 - Will begin treatment with as per antibiotic as written, see orders - continue with flonase and mucinex - Supportive care with plenty of fluids, rest, and analgesia prn. - Follow up in 3-5 days if symptoms persist or worsen. Prescription instructions reviewed with patient as applicable. Potential red flag symptoms discussed with the patient. Reviewed appropriate action plan to take if red flag symptoms occur. Patient agreeable to treatment plan. Leda Brown APRN.CNP documented in this encounter [facility] 08-28-2022 Miscellaneous Notes Spoke with patient, will come and get labs done. [facility] states Endocrinology will coming to [place] in the next month. Please let patient know below information. We can recheck her thyroid levels and continue to monitor this. Once resulted, if abnormal, can send again to [facility] but I can try to have her schedule with endocrinology through [facility] which would require going outside of [place] travel. Thank you Leda Brown APRN.CNP [place] [facility] calling states there was a referral sent over on pt .Doctor viewed this and states no reason for them to see her because all her tests are normal. documented in this encounter [facility] 08-17-2022 Note HNO ID: [id number] Author: Leda Brown APRN.CNP Service: ? Author Type: Nurse Practitioner Type: Progress Notes Filed: 08/17/2022 9:21 AM Note Text: CC: Patient presents with: Recheck: Follow up, discuss Thyroid HPI Cassia Holland is a 56 year old female who presents today for thyroid concerns. History of Graves Disease with overactive disorder in early 2000s and was PTU to keep symptoms under control, but levels normalized with diagnosis of lupus. Also reports history of hashimotos without needing supplementation. Has had issues with palpitations, hair thinning, and just doesn't feel right. Previous episodes of hyperthyroid had shaking which is not present at this time. HTN: Ms. Holland indicates that she is feeling well and denies any symptoms referable to elevated blood pressure. Specifically denies headache, chest pain, dyspnea, and peripheral edema. Patient denies any side effects of her medication(s) and is compliant with their regimen. She does check BP's away from this office with average BP's in the 150s/90s range. Was seen by [facility] few days ago and was switched from nebivolol to carvedilol and noticed higher blood pressures since switching medications. Has an upcoming stress test ordered. Last 3 Encounter BP Readings: Date: BP: 08/17/2022 152/90 07/17/2022 126/70 06/26/2022 135/83[BP Cecily[ Brought up at end of visit that she has had 2 weeks of sinus pressure, ear pain, cough with yellow drainage, and feeling more tired than usual. Denies Fever, chills, shortness of breath, chest pain, or N/V/D . REVIEW OF SYSTEMS General: no fevers, no chills, no night sweats, no recurrent infections, no change in appetite, and no significant changes in weight HEENT: no frequent or significant headaches, no changes in hearing, no visual changes, no nose bleeds, Respiratory: no wheezing, no shortness of breath, no hemoptysis Cardiovascular: no chest pain, no chest pressure, and no swelling GI: No nausea, vomiting, or diarrhea Endocrine: no dry skin, no polyuria, no polyphagia, and no polydipsia Neurologic: No headache, weakness, numbness, tingling, dizziness, memory loss, syncope. PAST MEDICAL HISTORY Diagnosis Date Diabetes (HCC) adult onset Fibromyalgia Graves disease High blood pressure HSV-2 infection Interstitial lung disease (HCC) Lupus (HCC) Mixed connective tissue disease (HCC) Raynaud disease PAST SURGICAL HISTORY Procedure Laterality Date D AND C HYSTERECTOMY LAPAROSCOPY DIAGNOSTIC PAST SURGICAL HISTORY OF 7 sinus surgeries PAST SURGICAL HISTORY OF bilateral cataract surgeries TONSILLECTOMY HX ALLERGIES Cantaloupe, Levaquin [Levofloxacin], and Sulfa (Sulfonamide Antibiotics) MEDICATIONS carvedilol (COREG) 6.25 mg tabletTake 6.25 mg by mouth twice daily with meals.Disp: Rfl: ondansetron orally disintegrating (ZOFRAN ODT) 4 mg disintegrating tabletTake 1 tablet by mouth every 6 hours as needed for nausea/vomiting.Disp: 30 tabletRfl: 1 amLODIPine (NORVASC) 2.5 mg tablettake 1 tablet by mouth once dailyDisp: 30 tabletRfl: 3 metFORMIN ER (GLUCOPHAGE XR) 500 mg 24 hr tabletTake 2 tablets by mouth twice daily with meals.Disp: 360 tabletRfl: 1 nystatin (MYCOSTATIN) powderApply 1 application to affected area three times daily.Disp: 30 gRfl: 3 nebivolol (BYSTOLIC) 10 mg tabletTake 1 tablet by mouth once daily.Disp: 30 tabletRfl: 11 lansoprazole (PREVACID) 30 mg capsuleTake 1 capsule by mouth daily before breakfast. 1/2 hr before meal.Disp: 30 capsuleRfl: 11 hydroCHLOROthiazide (HYDRODIURIL, ESIDRIX) 25 mg tabletTake 1 tablet by mouth once daily.Disp: 30 tabletRfl: 4 losartan (COZAAR) 100 mg tabletTake 0.5 tablets by mouth once daily.Disp: 30 tabletRfl: 5 citalopram (CELEXA) 20 mg tabletTake 1 tablet by mouth once daily.Disp: 30 tabletRfl: 5 montelukast (SINGULAIR) 10 mg tablettake 1 tablet by mouth once dailyDisp: 30 tabletRfl: 11 naproxen (NAPROSYN) 500 mg tablettake 1 tablet by mouth twice a day with food if needed for PAIN/INFLAMMATIONDisp: 30 tabletRfl: 1 fluticasone (FLONASE) 50 mcg/actuation nasal sprayUse 2 Sprays in each nostril once daily.Disp: 1 EachRfl: 3 EPINEPHrine (EPIPEN) 0.3 mg/0.3 mL auto-injectorUse per directed for severe allergic reactionDisp: 2 EachRfl: 1 lancets (PostachioUCH DELICA PLUS LANCET) 33 gaugeTest blood sugar(s) 1 times daily. Dx: Type 2 DM - Controlled E11.9 Insulin: NoDisp: 100 EachRfl: 11 blood sugar diagnostic (PostachioUCH ULTRA TEST) test stripuse 1 TEST STRIP to TEST BLOOD SUGAR once dailyDisp: 50 StripRfl: 11 levalbuterol tartrate HFA (XOPENEX HFA) 45 mcg/actuation inhalerInhale 1-2 Puffs as instructed every 4 hours as needed.Disp: 1 InhalerRfl: 2 budesonide (PULMICORT) 1 mg/2 mL nebulizer solutionINSTILL RESPULE IN NASAL SALINE WASHES AND USE TWICE DAILYDisp: 120 mLRfl: 2 triamcinolone acetonide (KENALOG) 0.1 % creamApply to affected area twice daily. For 7 (more content not included)... [facility] 08-17-2022 History of Present illness Narrative CC: Patient presents with: Recheck: Follow up, discuss Thyroid HPI Cassia Holland is a 56 year old female who presents today for thyroid concerns. History of Graves Disease with overactive disorder in early and was PTU to keep symptoms under control, but levels normalized with diagnosis of lupus. Also reports history of hashimotos without needing supplementation. Has had issues with palpitations, hair thinning, and just doesn't feel right. Previous episodes of hyperthyroid had shaking which is not present at this time. HTN: Ms. Holland indicates that she is feeling well and denies any symptoms referable to elevated blood pressure. Specifically denies headache, chest pain, dyspnea, and peripheral edema. Patient denies any side effects of her medication(s) and is compliant with their regimen. She does check BP's away from this office with average BP's in the 150s/90s range. Was seen by [facility] few days ago and was switched from nebivolol to carvedilol and noticed higher blood pressures since switching medications. Has an upcoming stress test ordered. Last 3 Encounter BP Readings: Date: BP: 08/17/2022 152/90 07/17/2022 126/70 06/26/2022 135/83[BP Cecily[ Brought up at end of visit that she has had 2 weeks of sinus pressure, ear pain, cough with yellow drainage, and feeling more tired than usual. Denies Fever, chills, shortness of breath, chest pain, or N/V/D . REVIEW OF SYSTEMS General: no fevers, no chills, no night sweats, no recurrent infections, no change in appetite, and no significant changes in weight HEENT: no frequent or significant headaches, no changes in hearing, no visual changes, no nose bleeds, Respiratory: no wheezing, no shortness of breath, no hemoptysis Cardiovascular: no chest pain, no chest pressure, and no swelling GI: No nausea, vomiting, or diarrhea Endocrine: no dry skin, no polyuria, no polyphagia, and no polydipsia Neurologic: No headache, weakness, numbness, tingling, dizziness, memory loss, syncope. PAST MEDICAL HISTORY Diagnosis Date Diabetes (HCC) adult onset Fibromyalgia Graves disease High blood pressure HSV-2 infection Interstitial lung disease (HCC) Lupus (HCC) Mixed connective tissue disease (HCC) Raynaud disease PAST SURGICAL HISTORY Procedure Laterality Date D AND C HYSTERECTOMY LAPAROSCOPY DIAGNOSTIC PAST SURGICAL HISTORY OF 7 sinus surgeries PAST SURGICAL HISTORY OF bilateral cataract surgeries TONSILLECTOMY HX ALLERGIES Cantaloupe, Levaquin [Levofloxacin], and Sulfa (Sulfonamide Antibiotics) MEDICATIONS carvedilol (COREG) 6.25 mg tablet^Take 6.25 mg by mouth twice daily with meals.^Disp: ^Rfl: ondansetron orally disintegrating (ZOFRAN ODT) 4 mg disintegrating tablet^Take 1 tablet by mouth every 6 hours as needed for nausea/vomiting.^Disp: 30 tablet^Rfl: 1 amLODIPine (NORVASC) 2.5 mg tablet^take 1 tablet by mouth once daily^Disp: 30 tablet^Rfl: 3 metFORMIN ER (GLUCOPHAGE XR) 500 mg 24 hr tablet^Take 2 tablets by mouth twice daily with meals.^Disp: 360 tablet^Rfl: 1 nystatin (MYCOSTATIN) powder^Apply 1 application to affected area three times daily.^Disp: 30 g^Rfl: 3 nebivolol (BYSTOLIC) 10 mg tablet^Take 1 tablet by mouth once daily.^Disp: 30 tablet^Rfl: 11 lansoprazole (PREVACID) 30 mg capsule^Take 1 capsule by mouth daily before breakfast. 1/2 hr before meal.^Disp: 30 capsule^Rfl: 11 hydroCHLOROthiazide (HYDRODIURIL, ESIDRIX) 25 mg tablet^Take 1 tablet by mouth once daily.^Disp: 30 tablet^Rfl: 4 losartan (COZAAR) 100 mg tablet^Take 0.5 tablets by mouth once daily.^Disp: 30 tablet^Rfl: 5 citalopram (CELEXA) 20 mg tablet^Take 1 tablet by mouth once daily.^Disp: 30 tablet^Rfl: 5 montelukast (SINGULAIR) 10 mg tablet^take 1 tablet by mouth once daily^Disp: 30 tablet^Rfl: 11 naproxen (NAPROSYN) 500 mg tablet^take 1 tablet by mouth twice a day with food if needed for PAIN/INFLAMMATION^Disp: 30 tablet^Rfl: 1 fluticasone (FLONASE) 50 mcg/actuation nasal spray^Use 2 Sprays in each nostril once daily.^Disp: 1 Each^Rfl: 3 EPINEPHrine (EPIPEN) 0.3 mg/0.3 mL auto-injector^Use per directed for severe allergic reaction^Disp: 2 Each^Rfl: 1 lancets ([employer] DELICA PLUS LANCET) 33 gauge^Test blood sugar(s) 1 times daily. Dx: Type 2 DM - Controlled E11.9 Insulin: No^Disp: 100 Each^Rfl: 11 blood sugar diagnostic ([employer] ULTRA TEST) test strip^use 1 TEST STRIP to TEST BLOOD SUGAR once daily^Disp: 50 Strip^Rfl: 11 levalbuterol tartrate HFA (XOPENEX HFA) 45 mcg/actuation inhaler^Inhale 1-2 Puffs as instructed every 4 hours as needed.^Disp: 1 Inhaler^Rfl: 2 budesonide (PULMICORT) 1 mg/2 mL nebulizer solution^INSTILL RESPULE IN NASAL SALINE WASHES AND USE TWICE DAILY^Disp: 120 mL^Rfl: 2 triamcinolone acetonide (KENALOG) 0.1 % cream^Apply to affected area twice daily. For 7-10 days.^Disp: 45 g^Rfl: 0 Blood-Glucose Meter^Dispense 1 kit^Disp: 1 Each^Rfl: 0 FAMILY HISTORY Problem Relation Age of Onset Heart Mother stents Hypertension Mother other (pacemaker) Mother other (enlarged heart) Mother other (vertigo) Mother Prostate Cancer Father other (sjogrens) Sister Social History Tobacco Use Smoking status: Never Smokeless tobacco: Never Vaping Use Vaping Use: Never used Substance Use Topics Alcohol use: Not Currently Comment: rare Drug use: Never PHYSICAL EXAM BP 152/90 Pulse 68 Resp 16 Wt 88 kg (194 lb) BMI 35.48 kg/m General Appearance: well appearing, in no acute distress, alert Skin: Skin color, texture, turgor normal for age; Eyes: conjunctiva pink and moist, no icterus, sclera white, non-injected Ears: external ears normal to inspection and palpation, canals clear, Left tympanic membrane normal. , Right tympanic membrane normal Nose/sinus: Nares normal. Septum midline. Mucosa normal. No drainage. Bilateral maxillary tenderness. Neck: Thyroid normal size and symmetric without palpable nodules, No adenopathy Oropharynx: tongue midline and normal, soft palate, uvula, and tonsils normal, palpation of salivary glands negative Lymph nodes: No cervical lymphadenopathy and No supraclavicular lymphadenopathy Lungs: Lungs clear to auscultation. No wheezing, rhonchi, rales. Heart: RRR without murmur, gallop, or rubs. No ectopy Health maintenance reviewed with patient: HEPATITIS B(1 of 3 - 3-dose series) Never done PNEUMOCOCCAL(1 - PCV) Never done HIV SCREENING Never done DTAP,TDAP,TD(1 - Tdap) Never done HPV TESTING Never done SHINGRIX VACCINE(1 of 2) Never done COVID-19 VACCINE(3 - Booster for Moderna series) due on 10/29/2020 DILATED RETINAL EXAM due on 03/09/2021 DIABETIC FOOT EXAM due on 03/07/2022 DEPRESSION ASSESSMENT Never done MAMMOGRAM due on 09/22/2022 HBA1C due on 2022 URINE ALBUMIN:CREATININE RATIO due on 01/19/2023 LDL CHOLESTEROL due on 01/19/2023 COLORECTAL CANCER SCREENING due on 01/21/2023 ANNUAL PCP TEAM CHRONIC DISEASE VISIT due on 07/18/2023 BP CONTROLLED (<130/80) due on 07/18/2023 INFLUENZA Completed HEPATITIS C SCREENING Completed PAP TESTING Discontinued DATA REVIEWED: Most recent labs Outside chart from 2002 reviewed. ASSESSMENT/PLAN: 1. Graves disease - ICD9: 242.00, ICD10: E05.00 (primary diagnosis) - levels within normal range at this time but TSH trending down. With symptoms will send to endocrinology, patient wants faxed to [facility] - CONSULT TO ENDOCRINOLOGY 2. History of Srini thyroiditis - ICD9: V12.29, ICD10: Z86.39 As above - CONSULT TO ENDOCRINOLOGY 3. Hypertension, unspecified type - ICD9: 401.9, ICD10: I10 - suboptimal control with recent med change by cardiology. Continue current medications including cardiology change but increasing amlodipine and will have her follow up in a few weeks. - Encouraged dietary sodium restriction/DASH diet - Recommended regular aerobic exercise. - Recommend home blood pressure monitoring, to bring results in on next visit - Goal of BP <130/80 4. Acute non-recurrent maxillary sinusitis - ICD9: 461.0, ICD10: J01.00 - Will begin treatment with as per antibiotic as written, see orders - Supportive care with plenty of fluids, rest, and analgesia prn. - Follow up in 3-5 days if symptoms persist or worsen. Prescription instructions reviewed with patient as applicable. Potential red flag symptoms discussed with the patient. Reviewed appropriate action plan to take if red flag symptoms occur. Patient agreeable to treatment plan. Leda Brown APRN.CNP documented in this encounter [facility] 07-27-2022 Miscellaneous Notes Noted. Leda Brown APRN.CNP Faxed cardiology referral to [facility], per patient request. States it is more convenient for her to see cardiology there. Asking message be sent to Claritza Tompkins, to let her know. documented in this encounter [facility] 07-26-2022 Miscellaneous Notes Spoke to pt. States she is unavailable to come on Mondays due to her work schedule. This nurse informed her that we are currently only offering Cardiology in [place] on Mondays. Pt. states she is willing to drive to [place] for Cardiology services and that she will call to set up Cardio consult there. Alcira Parikh RN Patient is being referred to cardiology for SVT (supraventricular tachycardia) (HCC) [I47.1 (ICD-10-CM)]. She is unable to accept the appointment with Dr. Ac on 07/31/22. Next appointment with the practice is not until 11/27/22. Please notify patient if she can be seen sooner. She is waiting to schedule until she is notified by the office if she can be seen sooner. documented in this encounter [facility] 07-26-2022 Miscellaneous Notes Pt called and is notified of providers results and instructions. Pt voices understanding. Pt put through to scheduling to set up Cardiology appointment. Reyna Lamb RN Left detailed message on secure VM. Please assist in scheduling. Please let patient know her heart monitor did show her heart rate speeding up at times for short bursts. I am going to have her see cardiology for further evaluation of this. Thank you Leda Brown APRN.ANTHONY documented in this encounter [facility] 07-21-2022 Miscellaneous Notes Patient notified. Please tell cassia I sent an abx , To hold the zofran when she is taking the zpak regularly a Pt calling with an update. Pt was seen on 07-17-22 in the office. Pt reports she is not getting any better. Symptoms fever, exhaustion, drainage down back of throat and coughing when there is drainage down throat. Pt not sleeping. Fever and down and chills. Please review office apt and may want to call something in for pt. Please advise pt. Christina Ray LPN documented in this encounter [facility] 07-17-2022 Note HNO ID: [id number] Author: Josr Mathews MD Service: ? Author Type: Physician Type: Progress Notes Filed: 07/17/2022 4:48 PM Note Text: Reason for Visit Patient presents with: Same Day Appointment: sinus pressure, congestion,fever chills,body aches,cough,nausea x since Sunday Cassia Holland is a 56 year old female who presents here today for Above Complaints.. Health Maintenance HEPATITIS B(1 of 3 - 3-dose series) PNEUMOCOCCAL(1 - PCV) HIV SCREENING BP CONTROLLED (<130/80) DTAP,TDAP,TD(1 - Tdap) HPV TESTING SHINGRIX VACCINE(1 of 2) COVID-19 VACCINE(3 - Booster for Moderna series) DILATED RETINAL EXAM DIABETIC FOOT EXAM DEPRESSION ASSESSMENT MAMMOGRAM HPI Patient woke up sick on Sunday feeling sick, she actually started feeling ill on with fever, body aches, chills, congesion, cough, nausea, sinus areas hurt, yvon the cheeks and the jaws hurt her. Her ears are itching. 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 - has an ongoing uti. He is seeing uro-COMPOSITE BOND TECHNICIAN and was given Macrobid which she is going to take She has been vaccinated for COVID No problem-specific Assessment AND Plan notes found for this encounter. PAST MEDICAL HISTORY Diagnosis Date Diabetes (HCC) adult onset Fibromyalgia Graves disease High blood pressure HSV-2 infection Interstitial lung disease (HCC) Lupus (HCC) Mixed connective tissue disease (HCC) Raynaud disease PAST SURGICAL HISTORY Procedure Laterality Date D AND C HYSTERECTOMY LAPAROSCOPY DIAGNOSTIC PAST SURGICAL HISTORY OF 7 sinus surgeries PAST SURGICAL HISTORY OF bilateral cataract surgeries TONSILLECTOMY HX FAMILY HISTORY Problem Relation Age of Onset Heart Mother stents Hypertension Mother other (pacemaker) Mother other (enlarged heart) Mother other (vertigo) Mother Prostate Cancer Father other (sjogrens) Sister Social History Tobacco Use Smoking status: Never Smokeless tobacco: Never Vaping Use Vaping Use: Never used Substance Use Topics Alcohol use: Not Currently Comment: rare Drug use: Never Past medical history, appointments, medications, allergies reviewed. Pertinent Lab/Diagnostic Studies are reviewed and discussed today Current Outpatient Medications: amLODIPine (NORVASC) 2.5 mg tablet metFORMIN ER (GLUCOPHAGE XR) 500 mg 24 hr tablet nystatin (MYCOSTATIN) powder nebivolol (BYSTOLIC) 10 mg tablet lansoprazole (PREVACID) 30 mg capsule hydroCHLOROthiazide (HYDRODIURIL, ESIDRIX) 25 mg tablet losartan (COZAAR) 100 mg tablet citalopram (CELEXA) 20 mg tablet montelukast (SINGULAIR) 10 mg tablet naproxen (NAPROSYN) 500 mg tablet fluticasone (FLONASE) 50 mcg/actuation nasal spray EPINEPHrine (EPIPEN) 0.3 mg/0.3 mL auto-injector lancets (PostachioUCH DELICA PLUS LANCET) 33 gauge blood sugar diagnostic (PostachioUCH ULTRA TEST) test strip levalbuterol tartrate HFA (XOPENEX HFA) 45 mcg/actuation inhaler budesonide (PULMICORT) 1 mg/2 mL nebulizer solution triamcinolone acetonide (KENALOG) 0.1 % cream Blood-Glucose Meter Current Facility-Administered Medications: perflutren lipid microspheres 1.3 mL in NaCl (PF) 0.9% 10 mL injection (DEFINITY) sodium chloride 0.9 % (flush) 10 mL (BD POSIFLUSH) Review of Systems CONSTITUTIONAL: No fevers, chills night sweats, unintended weight loss CARDIOVASCULAR: No chest pain, dyspnea, palpitations, orthopnea, PND, ankle edema. PULM: No dyspnea, unexplained cough. GI: No dysphagia/odynophagia, problematic reflux, constipation, diarrhea, changes in stool habits, hematochezia, melena. : No new urinary complaints, including dysuria, gross hematuria or pyuria. NEURO: No new balance problems, peripheral weakness/paresthesias or numbness of concern. Physical Exam BP 126/70 (BP Site: Left Arm, BP Position: Sitting, BP Cuff Size: Large Adult) Pulse 80 Temp 37.2 ?C (99 ?F) Resp 12 Ht 157.5 cm (5' 2 ) Wt 87.5 kg (193 lb) SpO2 97% BMI 35.30 kg/m? General appearance: Well appearing, alert, in no acute distress, well nourished. Skin: Skin color, texture, turgor normal, no suspicious rashes or lesions Head: Normocephalic, no masses, lesions, tenderness or abnormalities Eyes: Anicteric sclera. Pupils are equally round and reactive to light. Extraocular movements are intact. Bilateral ears are shiny and puffed out. Lungs: Lungs clear to auscultation. No wheezing, rhonchi, rales Heart: RRR without murmur, gallop, or rubs. Extremities: No deformities, edema, skin discoloration, clubbing or cyanosis. Good capillary refill. ASSESSMENT/PLAN: 1. Viral illness - ICD9: 079.99, ICD10: B34.9 At this point it appears like a viral illness. Since her nausea is unbearable at this time Zofran to her local pharmacy. If she does not get better or fevers and colored discharge persist after 5 days we could start her on antibiotics. - Discussed viral etiology and rationale for treatment. (more content not included)... [facility] 07-17-2022 Miscellaneous Notes Addended by: JOSR MATHEWS on: 07/17/2022 04:48 PM Modules accepted: Orders documented in this encounter [facility] 07-17-2022 History of Present illness Narrative Reason for Visit Patient presents with: Same Day Appointment: sinus pressure, congestion,fever chills,body aches,cough,nausea x since Sunday Cassia Holland is a 56 year old female who presents here today for Above Complaints.. Health Maintenance HEPATITIS B(1 of 3 - 3-dose series) PNEUMOCOCCAL(1 - PCV) HIV SCREENING BP CONTROLLED (<130/80) DTAP,TDAP,TD(1 - Tdap) HPV TESTING SHINGRIX VACCINE(1 of 2) COVID-19 VACCINE(3 - Booster for Moderna series) DILATED RETINAL EXAM DIABETIC FOOT EXAM DEPRESSION ASSESSMENT MAMMOGRAM HPI Patient woke up sick on Sunday feeling sick, she actually started feeling ill on with fever, body aches, chills, congesion, cough, nausea, sinus areas hurt, yvon the cheeks and the jaws hurt her. Her ears are itching. 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 - has an ongoing uti. He is seeing uro-COMPOSITE BOND TECHNICIAN and was given Macrobid which she is going to take She has been vaccinated for COVID No problem-specific Assessment & Plan notes found for this encounter. PAST MEDICAL HISTORY Diagnosis Date Diabetes (HCC) adult onset Fibromyalgia Graves disease High blood pressure HSV-2 infection Interstitial lung disease (HCC) Lupus (HCC) Mixed connective tissue disease (HCC) Raynaud disease PAST SURGICAL HISTORY Procedure Laterality Date D AND C HYSTERECTOMY LAPAROSCOPY DIAGNOSTIC PAST SURGICAL HISTORY OF 7 sinus surgeries PAST SURGICAL HISTORY OF bilateral cataract surgeries TONSILLECTOMY HX FAMILY HISTORY Problem Relation Age of Onset Heart Mother stents Hypertension Mother other (pacemaker) Mother other (enlarged heart) Mother other (vertigo) Mother Prostate Cancer Father other (sjogrens) Sister Social History Tobacco Use Smoking status: Never Smokeless tobacco: Never Vaping Use Vaping Use: Never used Substance Use Topics Alcohol use: Not Currently Comment: rare Drug use: Never Past medical history, appointments, medications, allergies reviewed. Pertinent Lab/Diagnostic Studies are reviewed and discussed today Current Outpatient Medications: amLODIPine (NORVASC) 2.5 mg tablet metFORMIN ER (GLUCOPHAGE XR) 500 mg 24 hr tablet nystatin (MYCOSTATIN) powder nebivolol (BYSTOLIC) 10 mg tablet lansoprazole (PREVACID) 30 mg capsule hydroCHLOROthiazide (HYDRODIURIL, ESIDRIX) 25 mg tablet losartan (COZAAR) 100 mg tablet citalopram (CELEXA) 20 mg tablet montelukast (SINGULAIR) 10 mg tablet naproxen (NAPROSYN) 500 mg tablet fluticasone (FLONASE) 50 mcg/actuation nasal spray EPINEPHrine (EPIPEN) 0.3 mg/0.3 mL auto-injector lancets (PhagenesisTOUCH DELICA PLUS LANCET) 33 gauge blood sugar diagnostic (PhagenesisTOUCH ULTRA TEST) test strip levalbuterol tartrate HFA (XOPENEX HFA) 45 mcg/actuation inhaler budesonide (PULMICORT) 1 mg/2 mL nebulizer solution triamcinolone acetonide (KENALOG) 0.1 % cream Blood-Glucose Meter Current Facility-Administered Medications: perflutren lipid microspheres 1.3 mL in NaCl (PF) 0.9% 10 mL injection (DEFINITY) sodium chloride 0.9 % (flush) 10 mL (BD POSIFLUSH) Review of Systems CONSTITUTIONAL: No fevers, chills night sweats, unintended weight loss CARDIOVASCULAR: No chest pain, dyspnea, palpitations, orthopnea, PND, ankle edema. PULM: No dyspnea, unexplained cough. GI: No dysphagia/odynophagia, problematic reflux, constipation, diarrhea, changes in stool habits, hematochezia, melena. : No new urinary complaints, including dysuria, gross hematuria or pyuria. NEURO: No new balance problems, peripheral weakness/paresthesias or numbness of concern. Physical Exam BP 126/70 (BP Site: Left Arm, BP Position: Sitting, BP Cuff Size: Large Adult) Pulse 80 Temp 37.2 C (99 F) Resp 12 Ht 157.5 cm (5' 2 ) Wt 87.5 kg (193 lb) SpO2 97% BMI 35.30 kg/m General appearance: Well appearing, alert, in no acute distress, well nourished. Skin: Skin color, texture, turgor normal, no suspicious rashes or lesions Head: Normocephalic, no masses, lesions, tenderness or abnormalities Eyes: Anicteric sclera. Pupils are equally round and reactive to light. Extraocular movements are intact. Bilateral ears are shiny and puffed out. Lungs: Lungs clear to auscultation. No wheezing, rhonchi, rales Heart: RRR without murmur, gallop, or rubs. Extremities: No deformities, edema, skin discoloration, clubbing or cyanosis. Good capillary refill. ASSESSMENT/PLAN: 1. Viral illness - ICD9: 079.99, ICD10: B34.9 At this point it appears like a viral illness. Since her nausea is unbearable at this time Zofran to her local pharmacy. If she does not get better or fevers and colored discharge persist after 5 days we could start her on antibiotics. - Discussed viral etiology and rationale for treatment. - Symptomatic treatment with prn analgesia - Supportive care with fluids and rest - COVID WITH FLUA+B, ROUTINE Josr Mathews MD documented in this encounter [facility] 07-11-2022 Miscellaneous Notes Patient has been identified by name and date of : Yes, Provider Leda Brown Date 07/11/22 Time 8:31am Patient phones for refill(s): Requested Prescriptions Pending Prescriptions Disp Refills amLODIPine (NORVASC) 2.5 mg tablet [Pharmacy Med Name: AMLODIPINE BESYLATE 2.5 MG TAB] 30 tablet 0 Sig: take 1 tablet by mouth once daily Date of last office visit in primary care: 06/26/22 Last 2 Encounter Wt Readings: Date: Wt: 06/26/2022 88 kg (194 lb) 06/15/2022 88.5 kg (195 lb) Previous labs/tests for medication: Blood Pressure: BUN (mg/dL) Date Value 06/15/2022 11 05/05/2021 9 Sodium (mmol/L) Date Value 06/15/2022 132 05/05/2021 132 Last 1 Encounter BP Readings: Date: BP: 06/26/2022 135/83[BP Cecily[ Please advise. Thank you. Aubree Garcia LPN documented in this encounter [facility] 06-26-2022 Note HNO ID: [id number] Author: Leda Brown APRN.GIRLS SWIMMING COACH Service: ? Author Type: Nurse Practitioner Type: Progress Notes Filed: 06/26/2022 10:35 AM Note Text: CC: Patient presents with: Recheck: 2 week follow up HPI Cassia Holland is a 56 year old female who presents today for follow up. Was seen almost 2 weeks ago with concerns of headache, palpitations, and chest pain. Was started on low dose amlodipine for hypertension. Metformin was increased for uncontrolled glucose levels. HTN: Ms. Holland indicates that she is feeling well and denies any symptoms referable to elevated blood pressure. Specifically denies chest pain, palpitations, dyspnea, and peripheral edema. Patient denies any side effects of her medication(s) and is compliant with their regimen. She does check BP's away from this office with average BP's in the 130/60s - 140s/70s range. Cassia denies regular aerobic exercise. She watches her diet for sodium, low fat and low cholesterol some of the time. Last 3 Encounter BP Readings: Date: BP: 06/26/2022 148/84 - Cecily BP 135/83 06/15/2022 137/81[BP CECILY[ 04/17/2022 140/82' DIABETES MELLITUS: Ms. Holland denies excessive thirst or increased frequency of urination, chest pain or dyspnea , numbness, tingling or pain in extremities, new or unusual visual symptoms, low sugar/hypoglycemic reactions, weight loss/gain, lightheadedness/dizziness, and bowel changes/loose stools. Follows a diabetic diet some of the time. She is compliant with medication(s) and is tolerating med(s) without any side effects. She reports checking her glucose on a infrequent to not at all basis schedule . Patient's last HgA1C was Hemoglobin A1C (%) Date Value 06/15/2022 8.6 05/05/2021 7.3 12/24/2020 9.1 Hemoglobin A1C (POCT) (%) Date Value 01/19/2022 7.2 10/13/2021 8.4 ) Has noticed an improvement in headaches, in severity, and in frequency. States today is just a slight sinus headache she gets with weather changes. Chest pain has decreased and has no further palpitaitons. Currently with Zio patch in place. 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 REVIEW OF SYSTEMS General: no fevers, no chills, no night sweats, no recurrent infections, no change in appetite, no change in energy, and no significant changes in weight HEENT: no frequent or significant headaches, no changes in hearing, no visual changes, no nose bleeds, no sinus or nasal problems Respiratory: no cough, no wheezing, no shortness of breath, no hemoptysis Cardiovascular: no chest pain, no chest pressure, no palpitations, and no swelling GI: No nausea, vomiting, or diarrhea Endocrine: no fatigue, no cold intolerance, no heat intolerance, no polyuria, no polyphagia, and no polydipsia Neurologic: No headache, weakness, numbness, tingling, dizziness, syncope. PAST MEDICAL HISTORY Diagnosis Date Diabetes (HCC) adult onset Fibromyalgia Graves disease High blood pressure HSV-2 infection Interstitial lung disease (HCC) Lupus (HCC) Mixed connective tissue disease (HCC) Raynaud disease PAST SURGICAL HISTORY Procedure Laterality Date D AND C HYSTERECTOMY LAPAROSCOPY DIAGNOSTIC PAST SURGICAL HISTORY OF 7 sinus surgeries PAST SURGICAL HISTORY OF bilateral cataract surgeries TONSILLECTOMY HX ALLERGIES Cantaloupe, Levaquin [Levofloxacin], and Sulfa (Sulfonamide Antibiotics) MEDICATIONS metFORMIN ER (GLUCOPHAGE XR) 500 mg 24 hr tabletTake 2 tablets by mouth twice daily with meals.Disp: 360 tabletRfl: 1 amLODIPine (NORVASC) 2.5 mg tabletTake 1 tablet by mouth once daily.Disp: 30 tabletRfl: 0 nystatin (MYCOSTATIN) powderApply 1 application to affected area three times daily.Disp: 30 gRfl: 3 nebivolol (BYSTOLIC) 10 mg tabletTake 1 tablet by mouth once daily.Disp: 30 tabletRfl: 11 lansoprazole (PREVACID) 30 mg capsuleTake 1 capsule by mouth daily before breakfast. 1/2 hr before meal.Disp: 30 capsuleRfl: 11 hydroCHLOROthiazide (HYDRODIURIL, ESIDRIX) 25 mg tabletTake 1 tablet by mouth once daily.Disp: 30 tabletRfl: 4 losartan (COZAAR) 100 mg tabletTake 0.5 tablets by mouth once daily.Disp: 30 tabletRfl: 5 citalopram (CELEXA) 20 mg tabletTake 1 tablet by mouth once daily.Disp: 30 tabletRfl: 5 montelukast (SINGULAIR) 10 mg tablettake 1 tablet by mouth once dailyDisp: 30 tabletRfl: 11 benzonatate (TESSALON PERLES) 100 mg capsuleTake 2 capsules by mouth three times daily as needed for cough.Disp: 60 capsuleRfl: 0 naproxen (NAPROSYN) 500 mg tablettake 1 tablet by mouth twice a day with food if needed for PAIN/INFLAMMATIONDisp: 30 tabletRfl: 1 fluticasone (FLONASE) 50 mcg/actuation nasal sprayUse 2 Sprays in each nostril once daily.Disp: 1 EachRfl: 3 EPINEPHrine (EPIPEN) 0.3 mg/0.3 mL auto-injectorUse per directed for severe allergic reactionDisp: 2 EachRfl: 1 lancets (ONETOUC (more content not included)... [facility] 06-26-2022 History of Present illness Narrative CC: Patient presents with: Recheck: 2 week follow up HPI Cassia Holland is a 56 year old female who presents today for follow up. Was seen almost 2 weeks ago with concerns of headache, palpitations, and chest pain. Was started on low dose amlodipine for hypertension. Metformin was increased for uncontrolled glucose levels. HTN: Ms. Holland indicates that she is feeling well and denies any symptoms referable to elevated blood pressure. Specifically denies chest pain, palpitations, dyspnea, and peripheral edema. Patient denies any side effects of her medication(s) and is compliant with their regimen. She does check BP's away from this office with average BP's in the 130/60s - 140s/70s range. Cassia denies regular aerobic exercise. She watches her diet for sodium, low fat and low cholesterol some of the time. Last 3 Encounter BP Readings: Date: BP: 06/26/2022 148/84 - Cecily BP 135/83 06/15/2022 137/81[BP CECILY[ 04/17/2022 140/82' DIABETES MELLITUS: Ms. Holland denies excessive thirst or increased frequency of urination, chest pain or dyspnea , numbness, tingling or pain in extremities, new or unusual visual symptoms, low sugar/hypoglycemic reactions, weight loss/gain, lightheadedness/dizziness, and bowel changes/loose stools. Follows a diabetic diet some of the time. She is compliant with medication(s) and is tolerating med(s) without any side effects. She reports checking her glucose on a infrequent to not at all basis schedule . Patient's last HgA1C was Hemoglobin A1C (%) Date Value 06/15/2022 8.6 05/05/2021 7.3 12/24/2020 9.1 Hemoglobin A1C (POCT) (%) Date Value 01/19/2022 7.2 10/13/2021 8.4 ) Has noticed an improvement in headaches, in severity, and in frequency. States today is just a slight sinus headache she gets with weather changes. Chest pain has decreased and has no further palpitaitons. Currently with Zio patch in place. 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 REVIEW OF SYSTEMS General: no fevers, no chills, no night sweats, no recurrent infections, no change in appetite, no change in energy, and no significant changes in weight HEENT: no frequent or significant headaches, no changes in hearing, no visual changes, no nose bleeds, no sinus or nasal problems Respiratory: no cough, no wheezing, no shortness of breath, no hemoptysis Cardiovascular: no chest pain, no chest pressure, no palpitations, and no swelling GI: No nausea, vomiting, or diarrhea Endocrine: no fatigue, no cold intolerance, no heat intolerance, no polyuria, no polyphagia, and no polydipsia Neurologic: No headache, weakness, numbness, tingling, dizziness, syncope. PAST MEDICAL HISTORY Diagnosis Date Diabetes (HCC) adult onset Fibromyalgia Graves disease High blood pressure HSV-2 infection Interstitial lung disease (HCC) Lupus (HCC) Mixed connective tissue disease (HCC) Raynaud disease PAST SURGICAL HISTORY Procedure Laterality Date D AND C HYSTERECTOMY LAPAROSCOPY DIAGNOSTIC PAST SURGICAL HISTORY OF 7 sinus surgeries PAST SURGICAL HISTORY OF bilateral cataract surgeries TONSILLECTOMY HX ALLERGIES Cantaloupe, Levaquin [Levofloxacin], and Sulfa (Sulfonamide Antibiotics) MEDICATIONS metFORMIN ER (GLUCOPHAGE XR) 500 mg 24 hr tablet^Take 2 tablets by mouth twice daily with meals.^Disp: 360 tablet^Rfl: 1 amLODIPine (NORVASC) 2.5 mg tablet^Take 1 tablet by mouth once daily.^Disp: 30 tablet^Rfl: 0 nystatin (MYCOSTATIN) powder^Apply 1 application to affected area three times daily.^Disp: 30 g^Rfl: 3 nebivolol (BYSTOLIC) 10 mg tablet^Take 1 tablet by mouth once daily.^Disp: 30 tablet^Rfl: 11 lansoprazole (PREVACID) 30 mg capsule^Take 1 capsule by mouth daily before breakfast. 1/2 hr before meal.^Disp: 30 capsule^Rfl: 11 hydroCHLOROthiazide (HYDRODIURIL, ESIDRIX) 25 mg tablet^Take 1 tablet by mouth once daily.^Disp: 30 tablet^Rfl: 4 losartan (COZAAR) 100 mg tablet^Take 0.5 tablets by mouth once daily.^Disp: 30 tablet^Rfl: 5 citalopram (CELEXA) 20 mg tablet^Take 1 tablet by mouth once daily.^Disp: 30 tablet^Rfl: 5 montelukast (SINGULAIR) 10 mg tablet^take 1 tablet by mouth once daily^Disp: 30 tablet^Rfl: 11 benzonatate (TESSALON PERLES) 100 mg capsule^Take 2 capsules by mouth three times daily as needed for cough.^Disp: 60 capsule^Rfl: 0 naproxen (NAPROSYN) 500 mg tablet^take 1 tablet by mouth twice a day with food if needed for PAIN/INFLAMMATION^Disp: 30 tablet^Rfl: 1 fluticasone (FLONASE) 50 mcg/actuation nasal spray^Use 2 Sprays in each nostril once daily.^Disp: 1 Each^Rfl: 3 EPINEPHrine (EPIPEN) 0.3 mg/0.3 mL auto-injector^Use per directed for severe allergic reaction^Disp: 2 Each^Rfl: 1 lancets ([employer]ach[employer] DELICA PLUS LANCET) 33 gauge^Test blood sugar(s) 1 times daily. Dx: Type 2 DM - Controlled E11.9 Insulin: No^Disp: 100 Each^Rfl: 11 blood sugar diagnostic (Postachio[employer]CH ULTRA TEST) test strip^use 1 TEST STRIP to TEST BLOOD SUGAR once daily^Disp: 50 Strip^Rfl: 11 levalbuterol tartrate HFA (XOPENEX HFA) 45 mcg/actuation inhaler^Inhale 1-2 Puffs as instructed every 4 hours as needed.^Disp: 1 Inhaler^Rfl: 2 budesonide (PULMICORT) 1 mg/2 mL nebulizer solution^INSTILL RESPULE IN NASAL SALINE WASHES AND USE TWICE DAILY^Disp: 120 mL^Rfl: 2 triamcinolone acetonide (KENALOG) 0.1 % cream^Apply to affected area twice daily. For 7-10 days.^Disp: 45 g^Rfl: 0 Blood-Glucose Meter^Dispense 1 kit^Disp: 1 Each^Rfl: 0 FAMILY HISTORY Problem Relation Age of Onset Heart Mother stents Hypertension Mother other (pacemaker) Mother other (enlarged heart) Mother other (vertigo) Mother Prostate Cancer Father other (sjogrens) Sister Social History Tobacco Use Smoking status: Never Smokeless tobacco: Never Vaping Use Vaping Use: Never used Substance Use Topics Alcohol use: Not Currently Comment: rare Drug use: Never PHYSICAL EXAM BP 148/84 Pulse 68 Resp 16 Wt 88 kg (194 lb) BMI 35.48 kg/m General Appearance: well appearing, in no acute distress, alert Pysch: mood and affect broad and appropriate Skin: Skin color, texture, turgor normal for age; Eyes: conjunctiva pink and moist, no icterus, sclera white, non-injected Neck: Thyroid normal size and symmetric without palpable nodules, No adenopathy Lymph nodes: No cervical lymphadenopathy and No supraclavicular lymphadenopathy Lungs: Lungs clear to auscultation. No wheezing, rhonchi, rales. Heart: RRR without murmur, gallop, or rubs. No ectopy Health maintenance reviewed with patient: HEPATITIS B(1 of 3 - 3-dose series) Never done PNEUMOCOCCAL(1 - PCV) Never done HIV SCREENING Never done BP CONTROLLED (<130/80) Never done DTAP,TDAP,TD(1 - Tdap) Never done HPV TESTING Never done SHINGRIX VACCINE(1 of 2) Never done COVID-19 VACCINE(3 - Booster for Moderna series) due on 10/29/2020 DILATED RETINAL EXAM due on 03/09/2021 DIABETIC FOOT EXAM due on 03/07/2022 DEPRESSION ASSESSMENT Never done MAMMOGRAM due on 09/22/2022 HBA1C due on 2022 URINE ALBUMIN:CREATININE RATIO due on 01/19/2023 LDL CHOLESTEROL due on 01/19/2023 COLORECTAL CANCER SCREENING due on 01/21/2023 ANNUAL PCP TEAM CHRONIC DISEASE VISIT due on 06/15/2023 INFLUENZA Completed HEPATITIS C SCREENING Completed PAP TESTING Discontinued DATA REVIEWED: Most recent labs and imaging results. ASSESSMENT/PLAN: 1. Chest pain, unspecified type - ICD9: 786.50, ICD10: R07.9 (primary diagnosis) Resolved at this time outside of her pain and inflammation at her xyphoid - patient has mutliple chronic autoimmine disorders. Will have her discuss with her men's golf coach to see if this chronic inflammation is a result of her other disorders. If not will need to see possibly ortho or other specialist to see what can be done to improve this. 2. Palpitations - ICD9: 785.1, ICD10: R00.2 - will evaluate zio patch when received. 3. Type 2 diabetes mellitus without complication, without long-term current use of insulin (HCC) - ICD9: 250.00, ICD10: E11.9 - tolerating increase in metformin - Continue current medications - Blood glucose monitoring on a once a day schedule - BP goal of <130/80 - LDL goal of <100 4. Hypertension, unspecified type - ICD9: 401.9, ICD10: I10 Improved control. Parameters of monitoring explained to patient. - Continue current medication(s) - Encouraged dietary sodium restriction/DASH diet - Recommended regular aerobic exercise. - Recommend home blood pressure monitoring, to bring results in on next visit - Goal of BP <130/80 6. Headaches - ICD9: 784.0, ICD10: R51.9 - improved - possible result of stress and high blood pressure - will continue to monitor. - go to ER for severe sudden headache, weakness, numbness, confusion, or any other urgent concerns. Prescription instructions reviewed with patient as applicable. Potential red flag symptoms discussed with the patient. Reviewed appropriate action plan to take if red flag symptoms occur. Patient agreeable to treatment plan. Leda Brown APRN.CNP documented in this encounter [facility] 06-23-2022 Miscellaneous Notes Lab work reviewed. Will review with patient at upcoming visit. Leda Brown APRN.CNP No current lab work completed at [facility]. Last blood work printed and given to provider. Please see if patient has any previous lab work at [facility] to compare current lab results to. Thank you Leda Brown APRN.CNP documented in this encounter [facility] 06-15-2022 Note HNO ID: [id number] Author: Leda Brown APRN.CNP Service: ? Author Type: Nurse Practitioner Type: Progress Notes Filed: 06/16/2022 7:40 AM Note Text: CC: Patient presents with: Recheck: Elevated BP and BS, headaches HPI Cassia Holland is a 56 year old female who presents today for elvated blood pressure, blood sugars, and multiple other concerns. HTN: Ms. Holland indicates that she is feeling well and denies any symptoms referable to elevated blood pressure.. Patient denies any side effects of her medication(s) and is compliant with their regimen. She does check BP's away from this office with average BP's in the 120s-160s/70s-80s range. Cassia denies regular aerobic exercise. She watches her diet for sodium, low fat and low cholesterol some of the time. Last 3 Encounter BP Readings: Date: BP: 06/15/2022 154/92 137/81 BP Cecily 04/17/2022 140/82 02/14/2022 130/88 Is having non radiating chest tightness intermittently. Usually is across her chest. Starts suddenly and self resolves after a few minutes. Occurs randomly and not with exercise or after eating. Does not have any nasuea, shortness of breath, or sweating with it. Also states she has palpitations intermittently that do not last very long. Does get on odd vision change like her vision darkening which resolves after a few moments with her palpitations. These do not occur with her bouts of chest tightness and denies any vision loss, weakness, numbness, or syncope. These have both been going on for a very long time and patient never wanted to bring it up in past visits. Has a large amount of stress in her home life at this time and is hoping it is a result of stress and anxiety. Has never had any previous cardiac issues or testing, States she had an EKG many years ago which was fine but that is it. DIABETES MELLITUS: Ms. Holland denies excessive thirst or increased frequency of urination, numbness, tingling or pain in extremities, low sugar/hypoglycemic reactions, weight loss/gain, lightheadedness/dizziness, and bowel changes/loose stools. Follows a diabetic diet some of the time. She is compliant with medication(s) and is tolerating med(s) without any side effects. She reports checking her glucose on a once a day schedule with sugars in the fasting 200s range. Patient's last HgA1C was Hemoglobin A1C (%) Date Value 05/05/2021 7.3 12/24/2020 9.1 Hemoglobin A1C (POCT) (%) Date Value 01/19/2022 7.2 10/13/2021 8.4 ) Last Ophthalmology exam was almost 12 months ago and needs annual scheduled Is also having what she refers to as debilitating headaches which is affecting her work. Has had them for years but have recently gotten worse. Pain is to entire head and difficult to describe. Reports getting nauseated with the headache, occasional blurred vision, sensitivity to light/sound, and brain fog that results in slow sluggish though process. Denies confusion, weakness, numbness, difficulty speaking or any other accompanying symptoms. Has never had treatment for this before. Is taking Excedrin migraine which may or may not be helpful. Missed work recently for this and is concerned because they are very busy at work right now and she cannot miss too much. REVIEW OF SYSTEMS General: no fevers, no chills, no night sweats, no recurrent infections, no change in appetite, no change in energy, and no significant changes in weight Respiratory: no cough, no wheezing, no shortness of breath, no hemoptysis Cardiovascular: no swelling Endocrine: no fatigue, no cold intolerance, no heat intolerance, no polyuria, no polyphagia, and no polydipsia Neurologic: No weakness, numbness, tingling, dizziness, syncope. PAST MEDICAL HISTORY Diagnosis Date Diabetes (HCC) adult onset Fibromyalgia Graves disease High blood pressure HSV-2 infection Interstitial lung disease (HCC) Lupus (HCC) Mixed connective tissue disease (HCC) Raynaud disease PAST SURGICAL HISTORY Procedure Laterality Date D AND C HYSTERECTOMY LAPAROSCOPY DIAGNOSTIC PAST SURGICAL HISTORY OF 7 sinus surgeries PAST SURGICAL HISTORY OF bilateral cataract surgeries TONSILLECTOMY HX ALLERGIES Cantaloupe, Levaquin [Levofloxacin], and Sulfa (Sulfonamide Antibiotics) MEDICATIONS nystatin (MYCOSTATIN) powderApply 1 application to affected area three times daily.Disp: 30 gRfl: 3 nebivolol (BYSTOLIC) 10 mg tabletTake 1 tablet by mouth once daily.Disp: 30 tabletRfl: 11 lansoprazole (PREVACID) 30 mg capsuleTake 1 capsule by mouth daily before breakfast. 1/2 hr before meal.Disp: 30 capsuleRfl: 11 hydroCHLOROthiazide (HYDRODIURIL, ESIDRIX) 25 mg tabletTake 1 tablet by mouth once daily.Disp: 30 tabletRfl: 4 losartan (COZAAR) 100 mg tabletTake 0.5 tablets by mouth once daily.Disp: 30 tabletRfl: 5 citalopram (CELEXA) 20 mg tabletTake 1 tablet by mouth once daily.Disp: 30 tabletRfl: 5 montelukast (SINGULAIR) 10 mg tablettake 1 tablet (more content not included)... [facility] 06-15-2022 Note HNO ID: [id number] Author: Efraín Sarkar MD Service: Cardiovascular Surgery Author Type: Physician Type: Procedures Filed: 07/13/2022 10:32 AM Note Text: Patient Name: Cassia Holland : 1965 Ordering Provider: LEDA BROWN Indication: R07.9 Chest pain, unspecified Type of Monitor: Extended Monitoring-Zio Patch Enrollment Dates: 06/21/2022-07/04/2022 [facility] 06-15-2022 History of Present illness Narrative CC: Patient presents with: Recheck: Elevated BP and BS, headaches HPI Cassia Holland is a 56 year old female who presents today for elvated blood pressure, blood sugars, and multiple other concerns. HTN: Ms. Holland indicates that she is feeling well and denies any symptoms referable to elevated blood pressure.. Patient denies any side effects of her medication(s) and is compliant with their regimen. She does check BP's away from this office with average BP's in the 120s-160s/70s-80s range. Cassia denies regular aerobic exercise. She watches her diet for sodium, low fat and low cholesterol some of the time. Last 3 Encounter BP Readings: Date: BP: 06/15/2022 154/92 137/81 BP Cecily 04/17/2022 140/82 02/14/2022 130/88 Is having non radiating chest tightness intermittently. Usually is across her chest. Starts suddenly and self resolves after a few minutes. Occurs randomly and not with exercise or after eating. Does not have any nasuea, shortness of breath, or sweating with it. Also states she has palpitations intermittently that do not last very long. Does get on odd vision change like her vision darkening which resolves after a few moments with her palpitations. These do not occur with her bouts of chest tightness and denies any vision loss, weakness, numbness, or syncope. These have both been going on for a very long time and patient never wanted to bring it up in past visits. Has a large amount of stress in her home life at this time and is hoping it is a result of stress and anxiety. Has never had any previous cardiac issues or testing, States she had an EKG many years ago which was fine but that is it. DIABETES MELLITUS: Ms. Holland denies excessive thirst or increased frequency of urination, numbness, tingling or pain in extremities, low sugar/hypoglycemic reactions, weight loss/gain, lightheadedness/dizziness, and bowel changes/loose stools. Follows a diabetic diet some of the time. She is compliant with medication(s) and is tolerating med(s) without any side effects. She reports checking her glucose on a once a day schedule with sugars in the fasting 200s range. Patient's last HgA1C was Hemoglobin A1C (%) Date Value 05/05/2021 7.3 12/24/2020 9.1 Hemoglobin A1C (POCT) (%) Date Value 01/19/2022 7.2 10/13/2021 8.4 ) Last Ophthalmology exam was almost 12 months ago and needs annual scheduled Is also having what she refers to as debilitating headaches which is affecting her work. Has had them for years but have recently gotten worse. Pain is to entire head and difficult to describe. Reports getting nauseated with the headache, occasional blurred vision, sensitivity to light/sound, and brain fog that results in slow sluggish though process. Denies confusion, weakness, numbness, difficulty speaking or any other accompanying symptoms. Has never had treatment for this before. Is taking Excedrin migraine which may or may not be helpful. Missed work recently for this and is concerned because they are very busy at work right now and she cannot miss too much. REVIEW OF SYSTEMS General: no fevers, no chills, no night sweats, no recurrent infections, no change in appetite, no change in energy, and no significant changes in weight Respiratory: no cough, no wheezing, no shortness of breath, no hemoptysis Cardiovascular: no swelling Endocrine: no fatigue, no cold intolerance, no heat intolerance, no polyuria, no polyphagia, and no polydipsia Neurologic: No weakness, numbness, tingling, dizziness, syncope. PAST MEDICAL HISTORY Diagnosis Date Diabetes (HCC) adult onset Fibromyalgia Graves disease High blood pressure HSV-2 infection Interstitial lung disease (HCC) Lupus (HCC) Mixed connective tissue disease (HCC) Raynaud disease PAST SURGICAL HISTORY Procedure Laterality Date D AND C HYSTERECTOMY LAPAROSCOPY DIAGNOSTIC PAST SURGICAL HISTORY OF 7 sinus surgeries PAST SURGICAL HISTORY OF bilateral cataract surgeries TONSILLECTOMY HX ALLERGIES Cantaloupe, Levaquin [Levofloxacin], and Sulfa (Sulfonamide Antibiotics) MEDICATIONS nystatin (MYCOSTATIN) powder^Apply 1 application to affected area three times daily.^Disp: 30 g^Rfl: 3 nebivolol (BYSTOLIC) 10 mg tablet^Take 1 tablet by mouth once daily.^Disp: 30 tablet^Rfl: 11 lansoprazole (PREVACID) 30 mg capsule^Take 1 capsule by mouth daily before breakfast. 1/2 hr before meal.^Disp: 30 capsule^Rfl: 11 hydroCHLOROthiazide (HYDRODIURIL, ESIDRIX) 25 mg tablet^Take 1 tablet by mouth once daily.^Disp: 30 tablet^Rfl: 4 losartan (COZAAR) 100 mg tablet^Take 0.5 tablets by mouth once daily.^Disp: 30 tablet^Rfl: 5 citalopram (CELEXA) 20 mg tablet^Take 1 tablet by mouth once daily.^Disp: 30 tablet^Rfl: 5 montelukast (SINGULAIR) 10 mg tablet^take 1 tablet by mouth once daily^Disp: 30 tablet^Rfl: 11 benzonatate (TESSALON PERLES) 100 mg capsule^Take 2 capsules by mouth three times daily as needed for cough.^Disp: 60 capsule^Rfl: 0 naproxen (NAPROSYN) 500 mg tablet^take 1 tablet by mouth twice a day with food if needed for PAIN/INFLAMMATION^Disp: 30 tablet^Rfl: 1 fluticasone (FLONASE) 50 mcg/actuation nasal spray^Use 2 Sprays in each nostril once daily.^Disp: 1 Each^Rfl: 3 EPINEPHrine (EPIPEN) 0.3 mg/0.3 mL auto-injector^Use per directed for severe allergic reaction^Disp: 2 Each^Rfl: 1 lancets ([employer] PLUS LANCET) 33 gauge^Test blood sugar(s) 1 times daily. Dx: Type 2 DM - Controlled E11.9 Insulin: No^Disp: 100 Each^Rfl: 11 blood sugar diagnostic (PhagenesisTOUCH ULTRA TEST) test strip^use 1 TEST STRIP to TEST BLOOD SUGAR once daily^Disp: 50 Strip^Rfl: 11 levalbuterol tartrate HFA (XOPENEX HFA) 45 mcg/actuation inhaler^Inhale 1-2 Puffs as instructed every 4 hours as needed.^Disp: 1 Inhaler^Rfl: 2 amLODIPine (NORVASC) 2.5 mg tablet^Take 1 tablet by mouth once daily.^Disp: 30 tablet^Rfl: 0 metFORMIN ER (GLUCOPHAGE XR) 500 mg 24 hr tablet^Take 2 tablets by mouth twice daily. take 1 tablet by mouth every morning and 2 tablets by mouth every evening with meals^Disp: 360 tablet^Rfl: 1 budesonide (PULMICORT) 1 mg/2 mL nebulizer solution^INSTILL RESPULE IN NASAL SALINE WASHES AND USE TWICE DAILY^Disp: 120 mL^Rfl: 2 triamcinolone acetonide (KENALOG) 0.1 % cream^Apply to affected area twice daily. For 7-10 days.^Disp: 45 g^Rfl: 0 Blood-Glucose Meter^Dispense 1 kit^Disp: 1 Each^Rfl: 0 FAMILY HISTORY Problem Relation Age of Onset Heart Mother stents Hypertension Mother other (pacemaker) Mother other (enlarged heart) Mother other (vertigo) Mother Prostate Cancer Father other (sjogrens) Sister Social History Tobacco Use Smoking status: Never Smokeless tobacco: Never Vaping Use Vaping Use: Never used Substance Use Topics Alcohol use: Not Currently Comment: rare Drug use: Never PHYSICAL EXAM BP 137/81 Pulse 85 Temp 37.3 C (99.1 F) (Temporal) Resp 16 Wt 88.5 kg (195 lb) SpO2 99% BMI 35.67 kg/m General Appearance: well appearing, in no acute distress, alert Pysch: mood and affect broad and appropriate Skin: Skin color, texture, turgor normal for age; Eyes: conjunctiva pink and moist, no icterus, sclera white, non-injected Neck: Thyroid normal size and symmetric without palpable nodules, No bruits, Neck supple, No adenopathy Lymph nodes: No cervical lymphadenopathy and No supraclavicular lymphadenopathy Lungs: Lungs clear to auscultation. No wheezing, rhonchi, rales. Heart: RRR without murmur, gallop, or rubs. No ectopy Abdomen: Abdomen soft, non-tender. Bowel sounds normal. No masses, organomegaly Extremities: No deformities, edema, skin discoloration, clubbing or cyanosis. Good capillary refill. Neurological: Gait normal. Reflexes normal and symmetric. Sensation intact.,speech normal, mental status intact, muscle tone normal, muscle strength normal Health maintenance reviewed with patient: HEPATITIS B(1 of 3 - 3-dose series) Never done BP CONTROLLED (<130/80) Never done DILATED RETINAL EXAM due on 03/09/2021 DIABETIC FOOT EXAM due on 03/07/2022 DEPRESSION ASSESSMENT Never done DTAP,TDAP,TD(1 - Tdap) due on 06/16/2022 HPV TESTING due on 06/16/2022 HIV SCREENING due on 06/16/2022 SHINGRIX VACCINE(1 of 2) due on 06/16/2022 COVID-19 VACCINE(3 - Booster for Moderna series) due on 06/16/2022 PNEUMOCOCCAL(1 - PCV) due on 06/16/2022 HBA1C due on 07/19/2022 MAMMOGRAM due on 09/22/2022 URINE ALBUMIN:CREATININE RATIO due on 01/19/2023 LDL CHOLESTEROL due on 01/19/2023 COLORECTAL CANCER SCREENING due on 01/21/2023 ANNUAL PCP TEAM CHRONIC DISEASE VISIT due on 04/17/2023 INFLUENZA Completed HEPATITIS C SCREENING Completed PAP TESTING Discontinued DATA REVIEWED: Most recent labs EKG Interpretation: RHYTHM: Normal sinus rhythm at 82 beats per minute, Possible Left atrial enlargement and left ventricular hypertrophy INTERVALS: Normal MI interval QRS COMPLEX: Normal ST SEGMENT: Normal ST-T segments QT INTERVAL: Normal COMPARED WITH PRIOR: None available ASSESSMENT/PLAN: 1. Chest pain, unspecified type - ICD9: 786.50, ICD10: R07.9 (primary diagnosis) Atypical chest pain, symptoms are not consistent with cardiac ischemia due to nonexertional nature of symptom, EKG without concern for acute issue. Unsure on cause possible stress related, but with history of HTN and DM this needs further evaluated for possible cardia cause. Will do ECHO for further evaluation of chest pain and the possible enlarged left atrium and ventricle - ECHO - PERFLUTREN LIPID MICROSPHERES 1.1 MG/ML INJECTION IN NS 10 ML - SODIUM CHLORIDE 0.9 % (FLUSH) INJECTION SYRINGE - COMP METABOLIC PANEL - CBC + DIFF - MAGNESIUM BLD - TSH BLD - T3 BLD - T4 FREE/FREE THYROX - ECG COMPLETE - OUTSIDE VENDOR CARDIAC OUTPATIENT EXTENDED RHYTHM RECORDING (WITHOUT TELEMETRY) - go to ER for increase chest pain, chest pressure that radiates down you arm or into your neck, palpitations, shortness of breath or any other urgent concerns. Follow up in 2 weeks 2. Palpitations - ICD9: 785.1, ICD10: R00.2 As above - ECHO - PERFLUTREN LIPID MICROSPHERES 1.1 MG/ML INJECTION IN NS 10 ML - SODIUM CHLORIDE 0.9 % (FLUSH) INJECTION SYRINGE - COMP METABOLIC PANEL - CBC + DIFF - MAGNESIUM BLD - TSH BLD - T3 BLD - T4 FREE/FREE THYROX - ECG COMPLETE - OUTSIDE VENDOR CARDIAC OUTPATIENT EXTENDED RHYTHM RECORDING (WITHOUT TELEMETRY) 3. Headaches - ICD9: 784.0, ICD10: R51.9 - possible cause from stress, blood pressure elevation, elevated blood sugar, or other cause. Does have a history of lupus she sees an outside men's golf coach for so may need to contact office to compare previous inflammatory markers - SED RATE WESTERGREN - C-REACTIVE PROTEIN (CRP) 4. Type 2 diabetes mellitus without complication, without long-term current use of insulin (HCC) - ICD9: 250.00, ICD10: E11.9 worsening control - increasing metformin to 2 tablets twice daily, patient to start eating a diabetic healthier diet - Blood glucose monitoring on a once a day schedule - BP goal of <130/80 - LDL goal of <100 - COMP METABOLIC PANEL - CBC + DIFF - HGB A1C - METFORMIN ER 500 MG TABLET,EXTENDED RELEASE 24 HR 5. Hypertension, unspecified type - ICD9: 401.9, ICD10: I10 - suboptimal control - Continue current medication(s) except adding a low dose amlodipine - Encouraged dietary sodium restriction/DASH diet - Recommended regular aerobic exercise. - Recommend home blood pressure monitoring, to bring results in on next visit - Goal of BP <130/80 - COMP METABOLIC PANEL - CBC + DIFF - TSH BLD - T3 BLD - T4 FREE/FREE THYROX - follow up in 2 weeks Prescription instructions reviewed with patient as applicable. Potential red flag symptoms discussed with the patient. Reviewed appropriate action plan to take if red flag symptoms occur. Patient agreeable to treatment plan. Leda Brown APRN.CNP documented in this encounter [facility] 06-13-2022 Miscellaneous Notes Rec'd approval for nebivolol hcl 06/12/22 to 06/12/23. documented in this encounter [facility] 06-12-2022 Miscellaneous Notes Mauro with [facility] calling and requesting most recent OV note for patient for prior authorization process for [facility]. Faxed as requested to Mauro at [phone]. Marisabel Sarabia RN documented in this encounter [facility] 04-20-2022 Miscellaneous Notes [employer] message sent to patient, no number on paper work to have them Faxed. Please fax papers as requested and then update patient this has been completed. Thank you Leda Brown APRN.CNP documented in this encounter [facility] 04-20-2022 Miscellaneous Notes Addressed in other mychart encounter. Leda Brown APRN.CNP documented in this encounter [facility] 04-19-2022 Miscellaneous Notes See other my chart encounter Leda Brown APRN.CNP documented in this encounter [facility] 12-12-2022 History of Present illness Narrative CC: Patient presents with: URI: Started with sinus drainage last week on Sunday. Cough and congestion. Moved into chest congestion. HPI Cassia Holland is a 56 year old female who presents today for sinus congestion since last Sunday. 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 Current symptoms are sinus congestion with pressure, drainage of green nasal drainage, cough occasionally productive of yellow sputum, sore throat, headache, some increase in chronic shortness of breath. Denies recent fever, chills, ear pain, nausea, vomiting, diarrhea, wheezing, or chest pain. History of interstitial lung disease and has not needed to increase usage of her albuterol inhaler. REVIEW OF SYSTEMS General: no fevers, no chills, no night sweats, no recurrent infections, no change in appetite, no change in energy, and no significant changes in weight HEENT: no frequent or significant headaches, no changes in hearing, no visual changes, no nose bleeds Respiratory: no wheezing, no hemoptysis Cardiovascular: no chest pain, no chest pressure, no palpitations, and no swelling GI: No nausea, vomiting, or diarrhea Neurologic: No headache, weakness, numbness, tingling, dizziness, syncope. PAST MEDICAL HISTORY Diagnosis Date Diabetes (HCC) adult onset Fibromyalgia Graves disease High blood pressure HSV-2 infection Interstitial lung disease (HCC) Lupus (HCC) Mixed connective tissue disease (HCC) Raynaud disease PAST SURGICAL HISTORY Procedure Laterality Date D AND C HYSTERECTOMY LAPAROSCOPY DIAGNOSTIC PAST SURGICAL HISTORY OF 7 sinus surgeries PAST SURGICAL HISTORY OF bilateral cataract surgeries TONSILLECTOMY HX ALLERGIES Cantaloupe, Levaquin [Levofloxacin], and Sulfa (Sulfonamide Antibiotics) MEDICATIONS montelukast (SINGULAIR) 10 mg tablet take 1 tablet by mouth once daily benzonatate (TESSALON PERLES) 100 mg capsule Take 2 capsules by mouth three times daily as needed for cough. losartan (COZAAR) 100 mg tablet Take 0.5 tablets by mouth once daily. citalopram (CELEXA) 20 mg tablet Take 1 tablet by mouth once daily. naproxen (NAPROSYN) 500 mg tablet take 1 tablet by mouth twice a day with food if needed for PAIN/INFLAMMATION hydroCHLOROthiazide (HYDRODIURIL, ESIDRIX) 25 mg tablet Take 1 tablet by mouth once daily. metFORMIN ER (GLUCOPHAGE XR) 500 mg 24 hr tablet take 1 tablet by mouth every morning and 2 tablets by mouth every evening with meals fluticasone (FLONASE) 50 mcg/actuation nasal spray Use 2 Sprays in each nostril once daily. lansoprazole (PREVACID) 30 mg capsule Take 1 capsule by mouth daily before breakfast. 1/2 hr before meal. nebivolol (BYSTOLIC) 10 mg tablet Take 1 tablet by mouth once daily. EPINEPHrine (EPIPEN) 0.3 mg/0.3 mL auto-injector Use per directed for severe allergic reaction lancets (PostachioUCH DELICA PLUS LANCET) 33 gauge Test blood sugar(s) 1 times daily. Dx: Type 2 DM - Controlled E11.9 Insulin: No blood sugar diagnostic (PostachioUCH ULTRA TEST) test strip use 1 TEST STRIP to TEST BLOOD SUGAR once daily levalbuterol tartrate HFA (XOPENEX HFA) 45 mcg/actuation inhaler Inhale 1-2 Puffs as instructed every 4 hours as needed. budesonide (PULMICORT) 1 mg/2 mL nebulizer solution INSTILL RESPULE IN NASAL SALINE WASHES AND USE TWICE DAILY triamcinolone acetonide (KENALOG) 0.1 % cream Apply to affected area twice daily. For 7-10 days. nystatin (MYCOSTATIN) powder Apply 1 application to affected area three times daily. Blood-Glucose Meter Dispense 1 kit FAMILY HISTORY Problem Relation Age of Onset Heart Mother stents Hypertension Mother other (pacemaker) Mother other (enlarged heart) Mother other (vertigo) Mother Prostate Cancer Father other (sjogrens) Sister Social History Tobacco Use Smoking status: Never Smokeless tobacco: Never Vaping Use Vaping Use: Never used Substance Use Topics Alcohol use: Not Currently Comment: rare Drug use: Never PHYSICAL EXAM BP 154/82 Pulse 75 Temp 36.7 C (98.1 F) Ht 157.5 cm (5' 2 ) Wt 88.9 kg (196 lb) SpO2 98% BMI 35.85 kg/m General Appearance: well appearing, in no acute distress, alert Skin: Skin color, texture, turgor normal for age; Eyes: conjunctiva pink and moist, no icterus, sclera white, non-injected Ears: external ears normal to inspection and palpation, canals clear, Left tympanic membrane normal. , Right tympanic membrane normal Nose/sinus: Nares normal. Septum midline. Mucosa normal. No drainage. Neck: Thyroid normal size and symmetric without palpable nodules, No adenopathy Oropharynx: tongue midline and normal, soft palate, uvula, and tonsils normal, palpation of salivary glands negative Lymph nodes: No cervical lymphadenopathy and No supraclavicular lymphadenopathy Lungs: Lungs clear to auscultation. No wheezing, rhonchi, rales. Heart: RRR without murmur, gallop, or rubs. No ectopy Health maintenance reviewed with patient: HEPATITIS B(1 of 3 - 3-dose series) Never done BP CONTROLLED (<130/80) Never done DILATED RETINAL EXAM due on 03/09/2021 DEPRESSION ASSESSMENT Never done DIABETIC FOOT EXAM due on 03/07/2022 DTAP,TDAP,TD(1 - Tdap) due on 06/16/2022 HPV TESTING due on 06/16/2022 HIV SCREENING due on 06/16/2022 SHINGRIX VACCINE(1 of 2) due on 06/16/2022 COVID-19 VACCINE(3 - Booster for Moderna series) due on 06/16/2022 PNEUMOCOCCAL(1 - PCV) due on 06/16/2022 HBA1C due on 07/19/2022 MAMMOGRAM due on 09/22/2022 URINE ALBUMIN:CREATININE RATIO due on 01/19/2023 LDL CHOLESTEROL due on 01/19/2023 COLORECTAL CANCER SCREENING due on 01/21/2023 ANNUAL PCP TEAM CHRONIC DISEASE VISIT due on 04/17/2023 INFLUENZA Completed HEPATITIS C SCREENING Completed PAP TESTING Discontinued DATA REVIEWED: No new labs ASSESSMENT/PLAN: 1. Other acute sinusitis, recurrence not specified - ICD9: 461.8, ICD10: J01.80 - lungs clear - no indication for CXR at this time - Will begin treatment with as per antibiotic as written, see orders - Supportive care with plenty of fluids, rest, and analgesia prn. - Follow up in 3-5 days if symptoms persist or worsen. Prescription instructions reviewed with patient as applicable. Potential red flag symptoms discussed with the patient. Reviewed appropriate action plan to take if red flag symptoms occur. Patient agreeable to treatment plan. Leda Brown APRN.CNP documented in this encounter [facility] 03-17-2022 Miscellaneous Notes Patient requesting Urology referral order and information be faxed to Dr. Wylie's office at [phone]. Faxed as requested. Marisabel Sarabia RN documented in this encounter [facility] 03-17-2022 Miscellaneous Notes See other my chart encounter. Leda Brown APRN.ANTHONY documented in this encounter [facility] 03-09-2022 Miscellaneous Notes Patient phones requesting refills as follows: Requested Prescriptions Pending Prescriptions Disp Refills montelukast (SINGULAIR) 10 mg tablet [Pharmacy Med Name: MONTELUKAST SOD 10 MG TABLET] 30 tablet 11 Sig: take 1 tablet by mouth once daily REGULO-02/14/22 Labs-02/23/22 NOV-07/20/22 med filled 02/07/21 Please review and advise. Yanci Horowitz LPN documented in this encounter [facility] 02-24-2022 Miscellaneous Notes Left detailed message on [employer]. Please let patient know her urine does indicate a UTI. I am starting her on Keflex/Cephalexin twice a day for 7 days. I do not have the culture back yet, but will let her know once I do. Thank you Leda Brown APRN.ANTHONY documented in this encounter [facility] 02-17-2022 Miscellaneous Notes Tracy, Could you please address this, Thanks documented in this encounter [facility] 02-15-2022 Miscellaneous Notes Patient telephoned and made aware. Meg Myers LPN Please call patient and let her know her COVID-19 test and flu testing are negative. Tracy Mendes APRN.GIRLS SWIMMING COACH documented in this encounter [facility] 02-14-2022 History of Present illness Narrative 02/14/2022 Patient presents with: UTI: Pressure since been on ATB Musculoskeletal Problem: Achy all over; exposed to covid SUBJECTIVE: This is a 56 year old that is here today for Above Complaints. Reports not feeling well since February 04. Symptoms include low grade fever (99.8), chills, fatigue, aching, sinus drainage, mild SOB with exertion, and cough. Also admits to sinus pressure, intermittent sore throat, lightheadedness, and mild nasal congestion. Complete 10 day course of Augmentin in January for similar symptoms. Follows with ENT in [place] for allergies. Denies wheezing, dyspnea, nausea, vomiting or diarrhea For the last week has had lower abdominal pressure when urinates. Also positive for urgency. Denies back pain, dysuria, urinary frequency or hematuria. Component Latest Ref Rng & Units 02/14/2022 GLUCOSE UA (POCT) Negative mg/dL Negative BILIRUBIN UA (POCT) Negative Negative KETONE UA (POCT) Negative mg/dL Negative SPECIFIC GRAVITY UA (POCT) 1.005 - 1.030 1.015 HEMOGLOBIN/BLOOD UA (POCT) Negative Moderate (A) PH UA (POCT) 4.5 - 8.0 7.0 PROTEIN UA (POCT) Negative mg/dL 30 (A) UROBILINOGEN UA (POCT) Normal E.U./dL 2.0 (A) NITRITE UA (POCT) Negative Negative LEUKOCYTES UA (POCT) Negative Large (A) COLOR UA (POCT) Dark yellow CLARITY UA (POCT) Cloudy PAST MEDICAL HISTORY Diagnosis Date Diabetes (HCC) adult onset Fibromyalgia Graves disease High blood pressure HSV-2 infection Interstitial lung disease (HCC) Lupus (HCC) Mixed connective tissue disease (HCC) Raynaud disease ALLERGIES Cantaloupe, Levaquin [Levofloxacin], and Sulfa (Sulfonamide Antibiotics) MEDICATIONS Current Outpatient Medications Medication Sig benzonatate (TESSALON PERLES) 100 mg capsule Take 2 capsules by mouth three times daily as needed for cough. losartan (COZAAR) 100 mg tablet Take 0.5 tablets by mouth once daily. citalopram (CELEXA) 20 mg tablet Take 1 tablet by mouth once daily. naproxen (NAPROSYN) 500 mg tablet take 1 tablet by mouth twice a day with food if needed for PAIN/INFLAMMATION hydroCHLOROthiazide (HYDRODIURIL, ESIDRIX) 25 mg tablet Take 1 tablet by mouth once daily. metFORMIN ER (GLUCOPHAGE XR) 500 mg 24 hr tablet take 1 tablet by mouth every morning and 2 tablets by mouth every evening with meals fluticasone (FLONASE) 50 mcg/actuation nasal spray Use 2 Sprays in each nostril once daily. lansoprazole (PREVACID) 30 mg capsule Take 1 capsule by mouth daily before breakfast. 1/2 hr before meal. nebivolol (BYSTOLIC) 10 mg tablet Take 1 tablet by mouth once daily. EPINEPHrine (EPIPEN) 0.3 mg/0.3 mL auto-injector Use per directed for severe allergic reaction lancets (PhagenesisTOUCH DELICA PLUS LANCET) 33 gauge Test blood sugar(s) 1 times daily. Dx: Type 2 DM - Controlled E11.9 Insulin: No blood sugar diagnostic (ONETOUCH ULTRA TEST) test strip use 1 TEST STRIP to TEST BLOOD SUGAR once daily levalbuterol tartrate HFA (XOPENEX HFA) 45 mcg/actuation inhaler Inhale 1-2 Puffs as instructed every 4 hours as needed. budesonide (PULMICORT) 1 mg/2 mL nebulizer solution INSTILL RESPULE IN NASAL SALINE WASHES AND USE TWICE DAILY montelukast (SINGULAIR) 10 mg tablet Take 1 tablet by mouth once daily. triamcinolone acetonide (KENALOG) 0.1 % cream Apply to affected area twice daily. For 7-10 days. nystatin (MYCOSTATIN) powder Apply 1 application to affected area three times daily. Blood-Glucose Meter Dispense 1 kit No current facility-administered medications for this visit. Medications and allergies reviewed by this provider. SOCIAL HISTORY Social History Tobacco Use Smoking status: Never Smokeless tobacco: Never Vaping Use Vaping Use: Never used Substance Use Topics Alcohol use: Not Currently Comment: rare Drug use: Never REVIEW OF SYSTEMS All other reviewed and negative other than HPI. OBJECTIVE: BP 130/88 Pulse 80 Temp 37.3 C (99.1 F) Resp 18 Wt 89.2 kg (196 lb 9.6 oz) SpO2 97% BMI 35.10 kg/m . Vital signs reviewed by this provider. APPEARANCE Well appearing, alert, in no acute distress, well-hydrated, well nourished. EYES conjunctiva and sclera normal. EARS External ears normal, canals clear NOSE/SINUS positive findings: sinus tenderness frontal bilateral. No active nasal drainage THROAT normal, no erythema NECK Supple, no adenopathy; thyroid symmetric, normal size, no bruits HEART RRR with normal S1 and S2, no murmurs, no gallops, no JVD appreciated LUNG clear to auscultation. No wheezes, rhonchi or rales ABDOMEN bowel sounds normoactive, no bruits, soft, non-tender, non-distended, without organomegaly or palpable masses EXTREMITIES Extremities normal, No deformities, No skin discoloration, and No edema SKIN Skin color, texture, turgor normal, no suspicious rashes or lesions to exposed skin HEPATITIS B(1 of 3 - 3-dose series) Never done BP CONTROLLED (<130/80) Never done DILATED RETINAL EXAM due on 03/09/2021 DEPRESSION ASSESSMENT Never done DIABETIC FOOT EXAM due on 03/07/2022 DTAP,TDAP,TD(1 - Tdap) due on 06/16/2022 HPV TESTING due on 06/16/2022 HIV SCREENING due on 06/16/2022 SHINGRIX VACCINE(1 of 2) due on 06/16/2022 COVID-19 VACCINE(3 - Booster for Moderna series) due on 06/16/2022 PNEUMOCOCCAL(1 - PCV) due on 06/16/2022 HBA1C due on 07/19/2022 MAMMOGRAM due on 09/22/2022 URINE ALBUMIN:CREATININE RATIO due on 01/19/2023 LDL CHOLESTEROL due on 01/19/2023 ANNUAL PCP TEAM CHRONIC DISEASE VISIT due on 01/19/2023 COLORECTAL CANCER SCREENING due on 01/21/2023 INFLUENZA Completed HEPATITIS C SCREENING Completed PAP TESTING Discontinued ASSESSMENT/PLAN: 1. Upper respiratory symptom - ICD9: 786.9, ICD10: R09.89 (primary diagnosis) - no red flag symptoms or exam findings - continue current prescribed medications - may use OTC decongestants - would recommend she follow-up with ENT if symptoms persist and COVID-19 negative - COVID WITH FLUA+B, ROUTINE - 2019 CORONAVIRUS 2. UTI symptoms - ICD9: 788.99, ICD10: R39.9 - no red flag symptoms or exam findings - red flag symptoms discussed, verbalizes understanding - UA DIP, URINE (POC) - URINE CULTURE - NITROFURANTOIN MONOHYDRATE & MACROCRYSTAL 100 MG ORAL CAP - follow-up pending culture, to ER with red flag symptoms Tracy Mendes APRN.CNP Prescription instructions reviewed with patient as applicable. Patient advised if symptoms do not improve or if symptoms worsen sooner, to contact their primary care physician. Potential red flag symptoms discussed with the patient. Reviewed appropriate action plan to take if red flag symptoms occur. Patient agreeable to treatment plan. I spent a total of 30 minutes on the date of the service which included preparing to see the patient, [id number] patient care, completing clinical documentation, obtaining and/or reviewing separately obtained history, performing a medically appropriate examination, counseling and educating the patient/family/caregiver, and ordering medications, tests, or procedures. documented in this encounter [facility] 02-07-2022 History of Present illness Narrative Subjective Cough Associated symptoms include ear pain, sore throat and myalgias. Pertinent negatives include no chills and no shortness of breath. Cassia Holland is a 56 year old female who presents with 4 days of diarrhea, sinus congestion, body aches, cough and sore throat. Her sister has been ill recently but tested negative for COVID. She also complains of bilateral ear pain. She has been taking no medication at home. Review of Systems Constitutional: Negative for chills and fever. HENT: Positive for congestion, ear pain and sore throat. Respiratory: Positive for cough. Negative for shortness of breath. Cardiovascular: Negative. Gastrointestinal: Positive for diarrhea. Musculoskeletal: Positive for myalgias. BP 132/80 Pulse 69 Temp 36.8 C (98.3 F) (Tympanic) Resp 16 Wt 89.7 kg (197 lb 12.8 oz) SpO2 98% BMI 35.32 kg/m PAST MEDICAL HISTORY Diagnosis Date Diabetes (HCC) adult onset Fibromyalgia Graves disease High blood pressure HSV-2 infection Interstitial lung disease (HCC) Lupus (HCC) Mixed connective tissue disease (HCC) Raynaud disease PAST SURGICAL HISTORY Procedure Laterality Date D AND C HYSTERECTOMY LAPAROSCOPY DIAGNOSTIC PAST SURGICAL HISTORY OF 7 sinus surgeries PAST SURGICAL HISTORY OF bilateral cataract surgeries TONSILLECTOMY HX ALLERGIES Cantaloupe, Levaquin [Levofloxacin], and Sulfa (Sulfonamide Antibiotics) MEDICATIONS losartan (COZAAR) 100 mg tablet Take 0.5 tablets by mouth once daily. citalopram (CELEXA) 20 mg tablet Take 1 tablet by mouth once daily. naproxen (NAPROSYN) 500 mg tablet take 1 tablet by mouth twice a day with food if needed for PAIN/INFLAMMATION hydroCHLOROthiazide (HYDRODIURIL, ESIDRIX) 25 mg tablet Take 1 tablet by mouth once daily. metFORMIN ER (GLUCOPHAGE XR) 500 mg 24 hr tablet take 1 tablet by mouth every morning and 2 tablets by mouth every evening with meals fluticasone (FLONASE) 50 mcg/actuation nasal spray Use 2 Sprays in each nostril once daily. lansoprazole (PREVACID) 30 mg capsule Take 1 capsule by mouth daily before breakfast. 1/2 hr before meal. nebivolol (BYSTOLIC) 10 mg tablet Take 1 tablet by mouth once daily. EPINEPHrine (EPIPEN) 0.3 mg/0.3 mL auto-injector Use per directed for severe allergic reaction lancets (PostachioUCH DELICA PLUS LANCET) 33 gauge Test blood sugar(s) 1 times daily. Dx: Type 2 DM - Controlled E11.9 Insulin: No blood sugar diagnostic (PostachioUCH ULTRA TEST) test strip use 1 TEST STRIP to TEST BLOOD SUGAR once daily levalbuterol tartrate HFA (XOPENEX HFA) 45 mcg/actuation inhaler Inhale 1-2 Puffs as instructed every 4 hours as needed. budesonide (PULMICORT) 1 mg/2 mL nebulizer solution INSTILL RESPULE IN NASAL SALINE WASHES AND USE TWICE DAILY montelukast (SINGULAIR) 10 mg tablet Take 1 tablet by mouth once daily. triamcinolone acetonide (KENALOG) 0.1 % cream Apply to affected area twice daily. For 7-10 days. nystatin (MYCOSTATIN) powder Apply 1 application to affected area three times daily. Blood-Glucose Meter Dispense 1 kit benzonatate (TESSALON PERLES) 100 mg capsule Take 2 capsules by mouth three times daily as needed for cough. FAMILY HISTORY Problem Relation Age of Onset Heart Mother stents Hypertension Mother other (pacemaker) Mother other (enlarged heart) Mother other (vertigo) Mother Prostate Cancer Father other (sjogrens) Sister Social History Tobacco Use Smoking status: Never Smokeless tobacco: Never Vaping Use Vaping Use: Never used Substance Use Topics Alcohol use: Not Currently Comment: rare Drug use: Never Objective Physical Exam Vitals and nursing note reviewed. Constitutional: Appearance: Normal appearance. HENT: Right Ear: Tympanic membrane, ear canal and external ear normal. Left Ear: Tympanic membrane, ear canal and external ear normal. Nose: Congestion present. Mouth/Throat: Mouth: Mucous membranes are moist. Pharynx: Oropharynx is clear. Uvula midline. No oropharyngeal exudate or posterior oropharyngeal erythema. Cardiovascular: Rate and Rhythm: Normal rate and regular rhythm. Heart sounds: Normal heart sounds. Pulmonary: Effort: Pulmonary effort is normal. No respiratory distress. Breath sounds: Normal breath sounds. No wheezing or rales. Musculoskeletal: Cervical back: Neck supple. Lymphadenopathy: Cervical: No cervical adenopathy. Skin: General: Skin is warm and dry. Findings: No erythema or rash. Neurological: Mental Status: She is alert. ASSESSMENT/PLAN: 1. Suspected COVID-19 virus infection - ICD9: V01.79, ICD10: Z20.822 - BENZONATATE 100 MG CAPSULE - COVID WITH FLUA+B, ROUTINE - Follow-up with your PCP in 3-5 days if symptoms have not improved or sooner if symptoms worsen - Discussed red flags and need for immediate medical evaluation if any occur. - Discussed supportive care treatment with fluids, rest and analgesia. - Discussed expected course of illness Kathy Alejandre APRN.GIRLS SWIMMING COACH documented in this encounter [facility] 02-07-2022 Instructions Kathy Alejandre APRN.CNP - 02/07/2022 11:26 AM EDT ASSESSMENT/PLAN: 1. Suspected COVID-19 virus infection - ICD9: V01.79, ICD10: Z20.822 - BENZONATATE 100 MG CAPSULE - COVID WITH FLUA+B, ROUTINE - Follow-up with your PCP in 3-5 days if symptoms have not improved or sooner if symptoms worsen - Discussed red flags and need for immediate medical evaluation if any occur. - Discussed supportive care treatment with fluids, rest and analgesia. - Discussed expected course of illness Kathy Alejandre APRN.CNP How to Manage Common Symptoms Associated with COVID for Adults Fever- Fever is a temperature over 100.4 F and can occur when the body is fighting an infection. To help treat a fever: Drink plenty of fluids and stay well hydrated. Eat small amounts of easy to digest food. Rest. Your body needs rest to recover, but getting up and moving around the house frequently is a good idea. You should try to continue doing your normal daily activities (bathing, toileting, grooming, cooking), though you will probably feel tired, and need to rest often. Avoid any heavy activity or exercise, as this will increase your body temperature. Dress in light clothing and stay covered in a light sheet. Keep the room temperature cool. Take a slightly warm (not cold or cool) bath, or apply damp washcloths to the forehead and wrists. Cough- Cough is a common symptom associated with COVID and can be bothersome. To help treat a cough: Stay well hydrated. Try warm water or tea with lemon and/or honey to help soothe the cough. Use a humidifier to add moisture to the air. Try a product with menthol, like a cough drop or a rub for your chest such as Vicks, which can help reduce cough. Try cough drops. Avoid smoking and other strong odors or perfumes. Try breathing exercises to keep your lungs open and clear. Take a big deep breath through your nose and hold for 5 seconds before slowly releasing. Repeat frequently, while you are awake. Congestion- Runny nose or nasal congestion can occur with COVID. Treatment can help relieve symptoms: Try OTC nasal saline spray, or nasal saline rinse to relieve mucus congestion. Nasal strips can help keep nasal passages open, to increase airflow. Elevating your head with an extra pillow in bed can help reduce congestion. Using a humidifier can increase moisture in the air, and make breathing easier. Sore Throat- Another common symptom with COVID, can be managed at home by: Stay well hydrated. Gargle with salt water - mix teaspoon salt with 1 cup of warm water and gargle. This helps to loosen mucus in the back of the throat and may reduce discomfort. Try ice chips, popsicles or lozenges to soothe the throat. Nausea/Vomiting/Diarrhea- These are common symptoms, and staying hydrated is most important. If you are nauseous or vomiting, start with small sips of water every 10-15 minutes and increase as tolerated. You can try sucking an ice cube too. If tolerating, you can try pedialyte or Gatorade, or flat sprite or graeme-bacilio. Start slowly and increase as you are able to. Instead of meals, try smaller, more frequent snacks. Try eating bland foods like crackers, toast, rice, and applesauce. Avoid spicy, greasy or fried foods and dairy containing foods. Even if you aren't feeling hungry due to lack of smell or taste, it is important to try to take in some food when you are able. After drinking and eating, rest in an upright position for up to two hours as needed to help decrease nauseous feelings. Try closing your eyes, avoid moving and watching TV. Avoid strong odors that can make you feel more nauseated. When to seek emergency medical attention Look for emergency warning signs for COVID-19. If having any of these symptoms, seek emergency medical care immediately: Trouble breathing Persistent pain or pressure in the chest New confusion Inability to wake or stay awake Bluish lips or face *This list is not all possible symptoms. Please call your medical provider for any other symptoms that are severe or concerning to you. Beginning Home Isolation Isolation is used to separate people infected with SARS-CoV-2, the virus that causes COVID-19, from people who are not infected. People who are in isolation should stay home until it s safe for them to be around others. In the home, anyone sick or infected should separate themselves from others by staying in a specific sick room or area and using a separate bathroom (if available). Isolation or Quarantine: What's the difference? Quarantine keeps someone who might have been exposed to the virus away from others. Isolation keeps someone who is infected with the virus away from others, even in their home. Who needs to isolate People who have COVID-19 People who have symptoms of COVID-19 and are able to recover at home People who have no symptoms (are asymptomatic) but have tested positive for infection with SARS-CoV-2 Steps to take Stay home except to get medical care Monitor your symptoms. Stay in a separate room from other household members, if possible Use a separate bathroom, if possible Avoid contact with other members of the household and pets Don t share personal household items, like cups, towels, and utensils Wear a mask when around other people, if you are able to When to seek emergency medical attention Look for emergency warning signs* for COVID-19. If someone is showing any of these signs, seek emergency medical care immediately: Trouble breathing Persistent pain or pressure in the chest New confusion Inability to wake or stay awake Bluish lips or face *This list is not all possible symptoms. Please call your medical provider for any other symptoms that are severe or concerning to you. Call 911 or call ahead to your local emergency facility: Notify the multicraft operator that you are seeking care for someone who has or may have COVID-19. Ending Home Isolation - When you can be around others after you had or likely had COVID-19 When you can be around others after you had or likely had COVID-19 If You Test Positive for COVID-19 (Isolation) Everyone, regardless of vaccination status: Stay home for 5 days. Note: Day 0 is your first day of symptoms or the date of collection of a positive viral test if no symptoms. Day 1 is the first full day after symptoms developed or test specimen was collected. If you have no symptoms or your symptoms are resolving after 5 days, you can leave your house. Continue to wear a mask around others for 5 additional days. If you have a fever, continue to stay home until your fever resolves, even if it is longer than 5 days. If You Were Exposed to Someone with COVID-19 (Quarantine) If you: 1. Have been boosted OR 2. Completed the primary series of Pfizer or Moderna vaccine within the last 6 months OR 3. Completed the primary series of J&J vaccine within the last 2 months THEN: 1. Wear a mask around others for 10 days. 2. Test on day 5, if possible. If you develop symptoms get a test and stay home. If You Were Exposed to Someone with COVID-19 (Quarantine) If you: 1. Completed the primary series of Pfizer or Moderna vaccine over 6 months ago and are not boosted OR 2. Completed the primary series of J&J over 2 months ago and are not boosted OR 3. Are unvaccinated THEN: 1. Stay home for 5 days. After that continue to wear a mask around others for 5 additional days. 2. If you can't quarantine you must wear a mask for 10 days. 3. Test on day 5 if possible. If you develop symptoms get a test and stay home. I had COVID-19 or I tested positive for COVID-19 and I have a weakened immune system If you have a weakened immune system (immunocompromised) due to a health condition or medication, you might need to stay home and isolate longer than 10 days. Talk to your healthcare provider for more information. Your doctor may work with an infectious disease expert at your local health department to determine when you can be around others. documented in this encounter [facility] 01-19-2022 History of Present illness Narrative CC: Patient presents with: Recheck: 4 month follow up Immunizations: Flu vaccination HPI Cassia Holland is a 56 year old female who presents today for follow up. Had blood work done at [facility] clinic earlier this month. Blood counts were normal. Platelets were normal. Did have a routine urinalysis that patient had trace leukocytes and bacteria. Denies difficulty or pain with urine, lower abdominal pain, or incontinence. HTN: Ms. Holland indicates that she is feeling well and denies any symptoms referable to elevated blood pressure. Specifically denies headache, chest pain, palpitations, dyspnea, and peripheral edema. Patient denies any side effects of her medication(s) and is compliant with their regimen. She does not check BP's generally. Cassia denies regular aerobic exercise. She watches her diet for sodium, low fat and low cholesterol some of the time. Last 3 Encounter BP Readings: Date: BP: 01/19/2022 142/90 11/20/2021 136/84 10/13/2021 144/100 DIABETES MELLITUS: Ms. Holland denies excessive thirst or increased frequency of urination, chest pain or dyspnea , numbness, tingling or pain in extremities, new or unusual visual symptoms, low sugar/hypoglycemic reactions, weight loss/gain, and bowel changes/loose stools. Follows a diabetic diet some of the time. She reports checking her glucose on a schedule . Patient's last HgA1C was Hemoglobin A1C (%) Date Value 05/05/2021 7.3 12/24/2020 9.1 Hemoglobin A1C (POCT) (%) Date Value 01/19/2022 7.2 10/13/2021 8.4 ) Last Ophthalmology exam needs scheduled with Dr. Painting, was seen a year ago. A1c in office is 7.2 today. Patient is going to start exercising and watching her diet more as she does not want any medication changes at this time. Interstitial lung disease: Uses emergency inhaler very rarely. Feels a little short of breath after going to the fair last night and looking at the animals, but not to the point of needing to use her inhaler. No recent exacerbation, cough, or wheezing. Has a routine pulmonology appointment today. Fatty Liver with moderate to severe fibrosis: Sees hepatology in March and needs diagnostics, recent lab work, and last colonoscopy/EGD faxed to them. Denies any RUQ pain, nausea, vomiting, or diarrhea. At end of appointment patient brought up that she has had sinus congestion, drainage, and sinus pressure for 3 weeks without drainage. Has noticed some dizziness over the past few days. Denies fever headaches, syncope, or ear pain. REVIEW OF SYSTEMS General: no fevers, no chills, no night sweats, no recurrent infections, no change in appetite, no change in energy, and no significant changes in weight Respiratory: See HPI Cardiovascular: no chest pain, no chest pressure, no palpitations, and no swelling GI: No nausea, vomiting, or diarrhea : See HPI Endocrine: no fatigue, no weight gain, no weight loss, no cold intolerance, no heat intolerance, no polyuria, no polyphagia, and no polydipsia Neurologic: No headache, weakness, numbness, tingling, syncope. PAST MEDICAL HISTORY Diagnosis Date Diabetes (HCC) adult onset Fibromyalgia Graves disease High blood pressure HSV-2 infection Interstitial lung disease (HCC) Lupus (HCC) Mixed connective tissue disease (HCC) Raynaud disease PAST SURGICAL HISTORY Procedure Laterality Date D AND C HYSTERECTOMY LAPAROSCOPY DIAGNOSTIC PAST SURGICAL HISTORY OF 7 sinus surgeries PAST SURGICAL HISTORY OF bilateral cataract surgeries TONSILLECTOMY HX ALLERGIES Cantaloupe, Levaquin [Levofloxacin], and Sulfa (Sulfonamide Antibiotics) MEDICATIONS losartan (COZAAR) 100 mg tablet Take 0.5 tablets by mouth once daily. citalopram (CELEXA) 20 mg tablet Take 1 tablet by mouth once daily. naproxen (NAPROSYN) 500 mg tablet take 1 tablet by mouth twice a day with food if needed for PAIN/INFLAMMATION hydroCHLOROthiazide (HYDRODIURIL, ESIDRIX) 25 mg tablet Take 1 tablet by mouth once daily. metFORMIN ER (GLUCOPHAGE XR) 500 mg 24 hr tablet take 1 tablet by mouth every morning and 2 tablets by mouth every evening with meals fluticasone (FLONASE) 50 mcg/actuation nasal spray Use 2 Sprays in each nostril once daily. lansoprazole (PREVACID) 30 mg capsule Take 1 capsule by mouth daily before breakfast. 1/2 hr before meal. nebivolol (BYSTOLIC) 10 mg tablet Take 1 tablet by mouth once daily. EPINEPHrine (EPIPEN) 0.3 mg/0.3 mL auto-injector Use per directed for severe allergic reaction lancets ([employer] DELICA PLUS LANCET) 33 gauge Test blood sugar(s) 1 times daily. Dx: Type 2 DM - Controlled E11.9 Insulin: No blood sugar diagnostic (PhagenesisTOUCH ULTRA TEST) test strip use 1 TEST STRIP to TEST BLOOD SUGAR once daily levalbuterol tartrate HFA (XOPENEX HFA) 45 mcg/actuation inhaler Inhale 1-2 Puffs as instructed every 4 hours as needed. montelukast (SINGULAIR) 10 mg tablet Take 1 tablet by mouth once daily. triamcinolone acetonide (KENALOG) 0.1 % cream Apply to affected area twice daily. For 7-10 days. nystatin (MYCOSTATIN) powder Apply 1 application to affected area three times daily. Blood-Glucose Meter Dispense 1 kit amoxicillin-clavulanic acid (AUGMENTIN) 875-125 mg per tablet Take 1 tablet by mouth twice daily for 7 days. budesonide (PULMICORT) 1 mg/2 mL nebulizer solution INSTILL RESPULE IN NASAL SALINE WASHES AND USE TWICE DAILY FAMILY HISTORY Problem Relation Age of Onset Heart Mother stents Hypertension Mother other (pacemaker) Mother other (enlarged heart) Mother other (vertigo) Mother Prostate Cancer Father other (sjogrens) Sister Social History Tobacco Use Smoking status: Never Smokeless tobacco: Never Vaping Use Vaping Use: Never used Substance Use Topics Alcohol use: Not Currently Comment: rare Drug use: Never PHYSICAL EXAM BP 136/86 Pulse 68 Resp 16 Wt 88.9 kg (196 lb) BMI 35.00 kg/m General Appearance: well appearing, in no acute distress, alert Skin: Skin color, texture, turgor normal for age; Eyes: conjunctiva pink and moist, no icterus, sclera white, non-injected Nose/sinus: Nares normal. Septum midline. Mucosa normal. No drainage. Does report tenderness to maxillary sinuses and frontal sinuses Neck: Thyroid normal size and symmetric without palpable nodules, No adenopathy Oropharynx: tongue midline and normal, soft palate, uvula, and tonsils normal, palpation of salivary glands negative, clear post nasal drip noted. Lymph nodes: No cervical lymphadenopathy and No supraclavicular lymphadenopathy Lungs: Lungs clear to auscultation. No wheezing, rhonchi, rales. Heart: RRR without murmur, gallop, or rubs. No ectopy BUE Extremities: No deformities, edema, skin discoloration, clubbing or cyanosis. Good capillary refill. Health maintenance reviewed with patient: HEPATITIS B(1 of 3 - 3-dose series) Never done BP CONTROLLED (<130/80) Never done DILATED RETINAL EXAM due on 03/09/2021 HBA1C due on 01/13/2022 URINE ALBUMIN:CREATININE RATIO due on 12/24/2021 LDL CHOLESTEROL due on 12/24/2021 INFLUENZA(1) due on 01/05/2022 DTAP,TDAP,TD(1 - Tdap) due on 06/16/2022 HPV TESTING due on 06/16/2022 HIV SCREENING due on 06/16/2022 SHINGRIX VACCINE(1 of 2) due on 06/16/2022 COVID-19 VACCINE(3 - Booster for Moderna series) due on 06/16/2022 PNEUMOCOCCAL(1 - PCV) due on 06/16/2022 DIABETIC FOOT EXAM due on 03/07/2022 DEPRESSION SCREENING due on 06/16/2022 MAMMOGRAM due on 09/22/2022 ANNUAL PCP TEAM CHRONIC DISEASE VISIT due on 10/13/2022 COLORECTAL CANCER SCREENING due on 01/21/2023 HEPATITIS C SCREENING Completed PAP TESTING Discontinued DATA REVIEWED: lab work from [facility] clinic ASSESSMENT/PLAN: 1. Type 2 diabetes mellitus without complication, without long-term current use of insulin (HCC) - ICD9: 250.00, ICD10: E11.9 (primary diagnosis) improved control - Continue current medications - Blood glucose monitoring on a once a day schedule - Encouraged regular aerobic exercise and weight loss - BP goal of <130/80 - LDL goal of <100 - HEMOGLOBIN A1C (POC) - ALBUMIN/CREAT RATIO RND UR - COMP METABOLIC PANEL 2. Hypertension, unspecified type - ICD9: 401.9, ICD10: I10 - suboptimal control - with diet changes and weight loss this will continue to improve. Patient wants to do this versus med changes - Continue current medication(s) - Encouraged dietary sodium restriction/DASH diet - Recommended regular aerobic exercise. - Recommend home blood pressure monitoring, to bring results in on next visit - Goal of BP <130/80 3. Interstitial lung disease (HCC) - ICD9: 515, ICD10: J84.9 - no wheezing on exam. Discussed using albuterol inhaler to see if this improves her shortness of breath sensation. - continue with pulmonology and appointment today 4. Mixed hyperlipidemia - ICD9: 272.2, ICD10: E78.2 - to be determined upon return of lab results - Encouraged following a low fat, low cholesterol diet. - Discussed the benefits of regular aerobic exercise and weight loss. - LIPID PANEL BASIC - COMP METABOLIC PANEL 5. Bacteria in urine - ICD9: 791.9, ICD10: R82.71 - sample had epithelial cells and patient asymptomatic. Probable contaminated sample but will recheck. - UA WITH CULTURE IF INDICATED 6. Leukocytes in urine - ICD9: 791.7, ICD10: R82.998 As above - UA WITH CULTURE IF INDICATED 7. Acute non-recurrent sinusitis, unspecified location - ICD9: 461.9, ICD10: J01.90 - with this occurring for 3 weeks and tenderness will treat with augmentin. - follow up for no improvement with treatment or new synmptoms. 8. Need for influenza vaccination - ICD9: V04.81, ICD10: Z23 - INFLUENZA VACCINE QUADRIVALENT 6 MO - 64 YRS IM Leda Brown APRN.CNP Prescription instructions reviewed with patient as applicable. Potential red flag symptoms discussed with the patient. Reviewed appropriate action plan to take if red flag symptoms occur. Patient agreeable to treatment plan. Leda Brown APRN.CNP documented in this encounter [facility] 12-19-2021 Miscellaneous Notes Patient has been identified by name and date of : Yes Patient phones for refill(s): Requested Prescriptions Pending Prescriptions Disp Refills naproxen (NAPROSYN) 500 mg tablet [Pharmacy Med Name: NAPROXEN 500 MG TABLET] 30 tablet 1 Sig: take 1 tablet by mouth twice a day with food if needed for PAIN/INFLAMMATION Date of last office visit in primary care: 10/13/21 Last 2 Encounter Wt Readings: Date: Wt: 11/20/2021 88.7 kg (195 lb 9.6 oz) 10/13/2021 88.5 kg (195 lb) Previous labs/tests for medication: Not applicable Please advise. Thank you. Michelle Judd LPN documented in this encounter [facility] 12-07-2021 Miscellaneous Notes Consult and imaging faxed to provider as requested. Please fax consult to MDs as requested. Thank you Leda Brown APRN.CNP Please call patient to schedule hepatology consult. Thank you Leda Brown APRN.CNP Placed on desk. Please get liver scan results from [facility] and lay on my desk. Thank you Leda Brown APRN.CNP documented in this encounter [facility] 11-20-2021 History of Present illness Narrative Subjective HPI Cassia Holland is a 56 year old female who presents with concern for COVID, had an exposure to COVID at work this week. She woke up with a sore throat and feeling tired. She rates her sore throat 5-6/10. She has not taken any medications for her symptoms. Review of Systems Constitutional: Positive for malaise/fatigue. Negative for chills and fever. HENT: Positive for sore throat. Negative for congestion. Respiratory: Negative for cough. Cardiovascular: Negative. Musculoskeletal: Negative for myalgias. Neurological: Negative for headaches. BP 136/84 Pulse 68 Temp 36.8 C (98.3 F) (Tympanic) Resp 16 Wt 88.7 kg (195 lb 9.6 oz) SpO2 98% BMI 34.93 kg/m PAST MEDICAL HISTORY Diagnosis Date Diabetes (HCC) adult onset Fibromyalgia Graves disease High blood pressure HSV-2 infection Interstitial lung disease (HCC) Lupus (HCC) Mixed connective tissue disease (HCC) Raynaud disease PAST SURGICAL HISTORY Procedure Laterality Date D AND C HYSTERECTOMY LAPAROSCOPY DIAGNOSTIC PAST SURGICAL HISTORY OF 7 sinus surgeries PAST SURGICAL HISTORY OF bilateral cataract surgeries TONSILLECTOMY HX ALLERGIES Cantaloupe, Levaquin [Levofloxacin], and Sulfa (Sulfonamide Antibiotics) MEDICATIONS naproxen (NAPROSYN) 500 mg tablet take 1 tablet by mouth twice a day with food if needed for PAIN/INFLAMMATION hydroCHLOROthiazide (HYDRODIURIL, ESIDRIX) 25 mg tablet Take 1 tablet by mouth once daily. metFORMIN ER (GLUCOPHAGE XR) 500 mg 24 hr tablet take 1 tablet by mouth every morning and 2 tablets by mouth every evening with meals fluticasone (FLONASE) 50 mcg/actuation nasal spray Use 2 Sprays in each nostril once daily. lansoprazole (PREVACID) 30 mg capsule Take 1 capsule by mouth daily before breakfast. 1/2 hr before meal. losartan (COZAAR) 100 mg tablet Take 0.5 tablets by mouth once daily. citalopram (CELEXA) 20 mg tablet Take 1 tablet by mouth once daily. nebivolol (BYSTOLIC) 10 mg tablet Take 1 tablet by mouth once daily. EPINEPHrine (EPIPEN) 0.3 mg/0.3 mL auto-injector Use per directed for severe allergic reaction lancets ([employer] DELICA PLUS LANCET) 33 gauge Test blood sugar(s) 1 times daily. Dx: Type 2 DM - Controlled E11.9 Insulin: No blood sugar diagnostic ([employer] ULTRA TEST) test strip use 1 TEST STRIP to TEST BLOOD SUGAR once daily levalbuterol tartrate HFA (XOPENEX HFA) 45 mcg/actuation inhaler Inhale 1-2 Puffs as instructed every 4 hours as needed. budesonide (PULMICORT) 1 mg/2 mL nebulizer solution INSTILL RESPULE IN NASAL SALINE WASHES AND USE TWICE DAILY montelukast (SINGULAIR) 10 mg tablet Take 1 tablet by mouth once daily. triamcinolone acetonide (KENALOG) 0.1 % cream Apply to affected area twice daily. For 7-10 days. nystatin (MYCOSTATIN) powder Apply 1 application to affected area three times daily. Blood-Glucose Meter Dispense 1 kit FAMILY HISTORY Problem Relation Age of Onset Heart Mother stents Hypertension Mother other (pacemaker) Mother other (enlarged heart) Mother other (vertigo) Mother Prostate Cancer Father other (sjogrens) Sister Social History Tobacco Use Smoking status: Never Smoker Smokeless tobacco: Never Used Vaping Use Vaping Use: Never used Substance Use Topics Alcohol use: Not Currently Comment: rare Drug use: Never Objective Physical Exam Vitals and nursing note reviewed. Constitutional: Appearance: Normal appearance. HENT: Mouth/Throat: Mouth: Mucous membranes are moist. Pharynx: Posterior oropharyngeal erythema (slight) present. No oropharyngeal exudate. Cardiovascular: Rate and Rhythm: Normal rate and regular rhythm. Heart sounds: Normal heart sounds. Pulmonary: Effort: Pulmonary effort is normal. No respiratory distress. Breath sounds: Normal breath sounds. No wheezing or rales. Skin: General: Skin is warm and dry. Findings: No erythema or rash. Neurological: Mental Status: She is alert. ASSESSMENT/PLAN: 1. Sore throat - ICD9: 462, ICD10: J02.9 (primary diagnosis) - suspect viral - Alere Strep Test NEGATIVE, no culture pending - Discussed supportive care treatment with fluids, rest and analgesia. - STREP A MOLECULAR (POC) 2. Exposure to COVID-19 virus - ICD9: V01.79, ICD10: Z20.822 - COVID WITH FLUA+B, ROUTINE - Follow-up with your PCP in 3-5 days if symptoms have not improved or sooner if symptoms worsen - Discussed red flags and need for immediate medical evaluation if any occur. - Discussed supportive care treatment with fluids, rest and analgesia. - Discussed expected course of illness Kathy Alejandre APRN.CNP documented in this encounter [facility] 11-20-2021 Instructions Kathy Alejandre APRN.ANTHONY - 11/20/2021 1:19 PM EDT ASSESSMENT/PLAN: 1. Sore throat - ICD9: 462, ICD10: J02.9 (primary diagnosis) - suspect viral - Alere Strep Test NEGATIVE, no culture pending - Discussed supportive care treatment with fluids, rest and analgesia. - STREP A MOLECULAR (POC) 2. Exposure to COVID-19 virus - ICD9: V01.79, ICD10: Z20.822 - COVID WITH FLUA+B, ROUTINE - Follow-up with your PCP in 3-5 days if symptoms have not improved or sooner if symptoms worsen - Discussed red flags and need for immediate medical evaluation if any occur. - Discussed supportive care treatment with fluids, rest and analgesia. - Discussed expected course of illness Kathy Alejandre APRN.GIR[employer]MING COACH Beginning Home Isolation Isolation is used to separate people infected with SARS-CoV-2, the virus that causes COVID-19, from people who are not infected. People who are in isolation should stay home until it s safe for them to be around others. In the home, anyone sick or infected should separate themselves from others by staying in a specific sick room or area and using a separate bathroom (if available). Isolation or Quarantine: What's the difference? Quarantine keeps someone who might have been exposed to the virus away from others. Isolation keeps someone who is infected with the virus away from others, even in their home. Who needs to isolate People who have COVID-19 People who have symptoms of COVID-19 and are able to recover at home People who have no symptoms (are asymptomatic) but have tested positive for infection with SARS-CoV-2 Steps to take Stay home except to get medical care Monitor your symptoms. Stay in a separate room from other household members, if possible Use a separate bathroom, if possible Avoid contact with other members of the household and pets Don t share personal household items, like cups, towels, and utensils Wear a mask when around other people, if you are able to When to seek emergency medical attention Look for emergency warning signs* for COVID-19. If someone is showing any of these signs, seek emergency medical care immediately: Trouble breathing Persistent pain or pressure in the chest New confusion Inability to wake or stay awake Bluish lips or face *This list is not all possible symptoms. Please call your medical provider for any other symptoms that are severe or concerning to you. Call 911 or call ahead to your local emergency facility: Notify the multicraft operator that you are seeking care for someone who has or may have COVID-19. Ending Home Isolation - When you can be around others after you had or likely had COVID-19 When you can be around others after you had or likely had COVID-19 If You Test Positive for COVID-19 (Isolation) Everyone, regardless of vaccination status: 1. Stay home for 5 days. Note: Day 0 is your first day of symptoms or the date of collection of a positive viral test if no symptoms. Day 1 is the first full day after symptoms developed or test specimen was collected. 2. If you have no symptoms or your symptoms are resolving after 5 days, you can leave your house. 3. Continue to wear a mask around others for 5 additional days. If you have a fever, continue to stay home until your fever resolves, even if it is longer than 5 days. If You Were Exposed to Someone with COVID-19 (Quarantine) If you: 1. Have been boosted OR 2. Completed the primary series of Pfizer or Moderna vaccine within the last 6 months OR 3. Completed the primary series of J&J vaccine within the last 2 months THEN: 1. Wear a mask around others for 10 days. 2. Test on day 5, if possible. If you develop symptoms get a test and stay home. If You Were Exposed to Someone with COVID-19 (Quarantine) If you: 1. Completed the primary series of Pfizer or Moderna vaccine over 6 months ago and are not boosted OR 2. Completed the primary series of J&J over 2 months ago and are not boosted OR 3. Are unvaccinated THEN: 1. Stay home for 5 days. After that continue to wear a mask around others for 5 additional days. 2. If you can't quarantine you must wear a mask for 10 days. 3. Test on day 5 if possible. If you develop symptoms get a test and stay home. I had COVID-19 or I tested positive for COVID-19 and I have a weakened immune system If you have a weakened immune system (immunocompromised) due to a health condition or medication, you might need to stay home and isolate longer than 10 days. Talk to your healthcare provider for more information. Your doctor may work with an infectious disease expert at your local health department to determine when you can be around others. How to Manage Common Symptoms Associated with COVID for Adults Fever- Fever is a temperature over 100.4 F and can occur when the body is fighting an infection. To help treat a fever: Drink plenty of fluids and stay well hydrated. Eat small amounts of easy to digest food. Rest. Your body needs rest to recover, but getting up and moving around the house frequently is a good idea. You should try to continue doing your normal daily activities (bathing, toileting, grooming, cooking), though you will probably feel tired, and need to rest often. Avoid any heavy activity or exercise, as this will increase your body temperature. Dress in light clothing and stay covered in a light sheet. Keep the room temperature cool. Take a slightly warm (not cold or cool) bath, or apply damp washcloths to the forehead and wrists. Cough- Cough is a common symptom associated with COVID and can be bothersome. To help treat a cough: Stay well hydrated. Try warm water or tea with lemon and/or honey to help soothe the cough. Use a humidifier to add moisture to the air. Try a product with menthol, like a cough drop or a rub for your chest such as Vicks, which can help reduce cough. Try cough drops. Avoid smoking and other strong odors or perfumes. Try breathing exercises to keep your lungs open and clear. Take a big deep breath through your nose and hold for 5 seconds before slowly releasing. Repeat frequently, while you are awake. Congestion- Runny nose or nasal congestion can occur with COVID. Treatment can help relieve symptoms: Try OTC nasal saline spray, or nasal saline rinse to relieve mucus congestion. Nasal strips can help keep nasal passages open, to increase airflow. Elevating your head with an extra pillow in bed can help reduce congestion. Using a humidifier can increase moisture in the air, and make breathing easier. Sore Throat- Another common symptom with COVID, can be managed at home by: Stay well hydrated. Gargle with salt water mix teaspoon salt with 1 cup of warm water and gargle. This helps to loosen mucus in the back of the throat and may reduce discomfort. Try ice chips, popsicles or lozenges to soothe the throat. Nausea/Vomiting/Diarrhea- These are common symptoms, and staying hydrated is most important. If you are nauseous or vomiting, start with small sips of water every 10-15 minutes and increase as tolerated. You can try sucking an ice cube too. If tolerating, you can try pedialyte or Gatorade, or flat sprite or graeme-bacilio. Start slowly and increase as you are able to. Instead of meals, try smaller, more frequent snacks. Try eating bland foods like crackers, toast, rice, and applesauce. Avoid spicy, greasy or fried foods and dairy containing foods. Even if you aren't feeling hungry due to lack of smell or taste, it is important to try to take in some food when you are able. After drinking and eating, rest in an upright position for up to two hours as needed to help decrease nauseous feelings. Try closing your eyes, avoid moving and watching TV. Avoid strong odors that can make you feel more nauseated. When to seek emergency medical attention Look for emergency warning signs for COVID-19. If having any of these symptoms, seek emergency medical care immediately: Trouble breathing Persistent pain or pressure in the chest New confusion Inability to wake or stay awake Bluish lips or face *This list is not all possible symptoms. Please call your medical provider for any other symptoms that are severe or concerning to you. documented in this encounter [facility] 11-16-2021 Miscellaneous Notes Patient has been identified by name and date of : Yes Pharmacy phones for refill(s): Pending Prescriptions Disp Refills NAPROXEN 500 MG TABLET 30 tablet 1 Sig: take 1 tablet by mouth twice a day with food if needed for PAIN/INFLAMMATION LANCE: Yes Date of last office visit in primary care: 10/13/21 Last 2 Encounter Wt Readings: Date: Wt: 10/13/2021 88.5 kg (195 lb) 10/10/2021 90.5 kg (199 lb 9.6 oz) Previous labs/tests for medication: Not applicable Please advise. Thank you. Christina Ray LPN documented in this encounter [facility] 11-02-2021 History of Present illness Narrative Radiology Service Progress Note PATIENT NAME: Cassia Holland DATE OF SERVICE: November 02, 2021 TIME: 2:32 PM PATIENT IDENTITY VERIFICATION COMPLETED USING TWO (2) IDENTIFIERS: Name and Date of confirmed by patient verbally. FALL SCREENING: Has the patient had 2 falls in the last year or 1 fall with injury or currently using an Ambulatory Assistive Device (Walker, Cane, Wheelchair, Crutches, etc.)? No PATIENT GENDER DATA: Female. status: : No status: NO. PATIENT RELEVANT IMPLANT DATA REVIEWED: Not Applicable RADIOLOGY DEPARTMENT: Mammography PERIPHERAL IV DATA: Not applicable SIGNED BY: RT Negrito(R) November 02, 2021 2:32 PM documented in this encounter [facility] 10-19-2021 Miscellaneous Notes [facility] Ultrasound calling asking for copy of report for RUQ ultrasound and spleen to be faxed to [phone]. Printed reports and faxed as requested. Order faxed. Please fax order to [facility]. Thank you Leda Brown APRN.GIRLS SWIMMING COACH documented in this encounter [facility] 10-13-2021 History of Present illness Narrative CC: Patient presents with: Recheck: 3 month follow up HPI Cassia Hollnad is a 56 year old female who presents today for with concerns of xyphoid pain that is not improving, and more recent RUQ pain and nausea. Was seen 3 weeks ago for xyphoid tenderness by Dyana Valadez NP. Has had this pain for about a month. Denies injury, new exercises, or any other changes. Has history of Lupus and Graves. Saw rheumatology last week CRP was elevated, no currently on any medications for this. Also sees Dr. Mason with pulmonology in the last few weeks for increased shortness of breath for her interstitial lung disease. Was told her lung function was decreased so is supposed to start pulmonary rehab, and received a kenalog shot last at his office for seasonal allergies. Pain and tenderness to xyphoid has not changed, Is painful to touch and when bending over. Was taking ibuprofen as directed at previous visit without any improvement. Has noticed over the last few weeks having RUQ pain and some nausea. Currently being treated for UTI. Denies fever, cough, wheezing, chest pain, palpitations, vomiting, change in appetite, diarrhea, or constipation. A1c was 8.4 REVIEW OF SYSTEMS General: no fevers, no chills, no night sweats, no recurrent infections, no change in appetite, no change in energy and no significant changes in weight Respiratory: no cough, no wheezing, no hemoptysis Cardiovascular: no chest pain, no chest pressure, no palpitations and no swelling GI: See HPI : No history of dysuria, frequency or incontinence Neurologic: No headache, weakness, numbness, tingling, dizziness, syncope. PAST MEDICAL HISTORY Diagnosis Date Diabetes (HCC) adult onset Fibromyalgia Graves disease High blood pressure HSV-2 infection Interstitial lung disease (HCC) Lupus (HCC) Mixed connective tissue disease (HCC) Raynaud disease PAST SURGICAL HISTORY Procedure Laterality Date D AND C HYSTERECTOMY LAPAROSCOPY DIAGNOSTIC PAST SURGICAL HISTORY OF 7 sinus surgeries PAST SURGICAL HISTORY OF bilateral cataract surgeries TONSILLECTOMY HX ALLERGIES Cantaloupe, Levaquin [Levofloxacin], and Sulfa (Sulfonamide Antibiotics) MEDICATIONS nitrofurantoin monohydrate and macrocrystal (MACROBID) 100 mg capsule Take 1 capsule by mouth twice daily for 5 days. metFORMIN ER (GLUCOPHAGE XR) 500 mg 24 hr tablet take 1 tablet by mouth every morning and 2 tablets by mouth every evening with meals fluticasone (FLONASE) 50 mcg/actuation nasal spray Use 2 Sprays in each nostril once daily. lansoprazole (PREVACID) 30 mg capsule Take 1 capsule by mouth daily before breakfast. 1/2 hr before meal. losartan (COZAAR) 100 mg tablet Take 0.5 tablets by mouth once daily. hydroCHLOROthiazide (HYDRODIURIL, ESIDRIX) 25 mg tablet Take 1 tablet by mouth once daily. citalopram (CELEXA) 20 mg tablet Take 1 tablet by mouth once daily. nebivolol (BYSTOLIC) 10 mg tablet Take 1 tablet by mouth once daily. EPINEPHrine (EPIPEN) 0.3 mg/0.3 mL auto-injector Use per directed for severe allergic reaction lancets (Postach[employer] DELICA PLUS LANCET) 33 gauge Test blood sugar(s) 1 times daily. Dx: Type 2 DM - Controlled E11.9 Insulin: No blood sugar diagnostic (Postachio[employer]CH ULTRA TEST) test strip use 1 TEST STRIP to TEST BLOOD SUGAR once daily levalbuterol tartrate HFA (XOPENEX HFA) 45 mcg/actuation inhaler Inhale 1-2 Puffs as instructed every 4 hours as needed. budesonide (PULMICORT) 1 mg/2 mL nebulizer solution INSTILL RESPULE IN NASAL SALINE WASHES AND USE TWICE DAILY montelukast (SINGULAIR) 10 mg tablet Take 1 tablet by mouth once daily. triamcinolone acetonide (KENALOG) 0.1 % cream Apply to affected area twice daily. For 7-10 days. nystatin (MYCOSTATIN) powder Apply 1 application to affected area three times daily. Blood-Glucose Meter Dispense 1 kit FAMILY HISTORY Problem Relation Age of Onset Heart Mother stents Hypertension Mother other (pacemaker) Mother other (enlarged heart) Mother other (vertigo) Mother Prostate Cancer Father other (sjogrens) Sister Social History Tobacco Use Smoking status: Never Smoker Smokeless tobacco: Never Used Vaping Use Vaping Use: Never used Substance Use Topics Alcohol use: Not Currently Comment: rare Drug use: Never PHYSICAL EXAM BP 144/100 Pulse 64 Resp 16 Wt 88.5 kg (195 lb) BMI 34.82 kg/m General Appearance: well appearing, in no acute distress, alert Skin: Skin color, texture, turgor normal for age; Eyes: conjunctiva pink and moist, no icterus, sclera white, non-injected Lungs: Lungs clear to auscultation. No wheezing, rhonchi, rales. Heart: RRR without murmur, gallop, or rubs. No ectopy Abdomen: Abdomen soft. Bowel sounds normal. No masses, organomegaly. Tenderness to RUQ without guarding, grimacing, or any rebound pain. BUE Extremities: No deformities, edema, skin discoloration, clubbing or cyanosis. Good capillary refill. Musculoskeletal: Tenderness to palpation of xyphoid process. No obvious deformity. Health maintenance reviewed with patient: BP CONTROLLED (<130/80) Never done HEPATITIS B(1 of 3 - Risk 3-dose series) Never done DILATED RETINAL EXAM due on 03/09/2021 DTAP,TDAP,TD(1 - Tdap) due on 06/16/2022 HPV TESTING due on 06/16/2022 HIV SCREENING due on 06/16/2022 SHINGRIX VACCINE(1 of 2) due on 06/16/2022 COVID-19 VACCINE(3 - Booster for Moderna series) due on 06/16/2022 PNEUMOCOCCAL(1 - PCV) due on 06/16/2022 HBA1C due on 11/03/2021 URINE ALBUMIN:CREATININE RATIO due on 12/24/2021 LDL CHOLESTEROL due on 12/24/2021 DIABETIC FOOT EXAM due on 03/07/2022 DEPRESSION SCREENING due on 06/16/2022 ANNUAL PCP TEAM CHRONIC DISEASE VISIT due on 09/19/2022 MAMMOGRAM due on 09/22/2022 COLORECTAL CANCER SCREENING due on 01/21/2023 INFLUENZA Completed HEPATITIS C SCREENING Completed PAP TESTING Discontinued DATA REVIEWED: No new labs ASSESSMENT/PLAN: 1. Xyphoidalgia - ICD9: 733.90, ICD10: R07.89 (primary diagnosis) - no improvement to tenderness - will do naproxen short term, A1c uncontrolled and steroids not an option at this time - Rest and no heavy exertion that might irritate the xyphoid area - go to ER for chest pain, increased shortness of breath, palpitations, or any other urgent concerns. 2. RUQ pain - ICD9: 789.01, ICD10: R10.11 - possibly a result of irritation of xyphoid, but patient does still have gallbladder so will further evaluate. Recent labs reviewed at [facility] No recent CMP completed, but CBC without elevated WBCs or anemia. - COMP METABOLIC PANEL - LIPASE BLD - AMYLASE BLD - US ABD RT UPPER QUADRANT 3. Nausea - ICD9: 787.02, ICD10: R11.0 As above - COMP METABOLIC PANEL - LIPASE BLD - AMYLASE BLD - US ABD RT UPPER QUADRANT 4. Type 2 diabetes mellitus without complication, without long-term current use of insulin (HCC) - ICD9: 250.00, ICD10: E11.9 Uncontrolled - needs to be further discussed and patient has not been keeping record of blood sugars - Continue current medications - Blood glucose monitoring on a once a day schedule - BP goal of <130/80 - LDL goal of <100 - HEMOGLOBIN A1C (POC) - COMP METABOLIC PANEL - LIPASE BLD - AMYLASE BLD - US ABD RT UPPER QUADRANT - XR STERNUM 2V DESAI/LAT - follow up in 2 weeks to further review this and keep log of blood sugars to bring to appointment. Prescription instructions reviewed with patient as applicable. Potential red flag symptoms discussed with the patient. Reviewed appropriate action plan to take if red flag symptoms occur. Patient agreeable to treatment plan. Leda Brown APRN.CNP documented in this encounter [facility] 10-10-2021 History of Present illness Narrative Subjective Cassia Holland is a 56 year old female who presents with urinary frequency, urgency, and burning for 2 days. She reports that her symptoms are gradually worsening. Denies hematuria, pelvic pain, flank pain, fever, or chills. Reports having a urinalysis completed 2 days ago at her rheumatology appointment that revealed bacteria and leukocytes for which she was instructed to follow up with her PCP for treatment. Denies taking any medication for her symptoms. The history is provided by the patient. No speech language specialist was used. UTI This is a new problem. The current episode started 2 days ago. The problem occurs every urination. The problem has been gradually worsening. The quality of the pain is described as burning. The pain is at a severity of 3/10. There has been no fever. She is not sexually active. Associated symptoms include frequency and urgency. Pertinent negatives include no chills, no nausea, no vomiting, no discharge, no hematuria and no flank pain. She has tried nothing for the symptoms. Review of Systems Constitutional: Negative for chills and fever. Gastrointestinal: Negative for nausea and vomiting. Genitourinary: Positive for dysuria, frequency and urgency. Negative for flank pain and hematuria. BP 172/94 Pulse 79 Temp 36.6 C (97.9 F) Resp 21 Wt 90.5 kg (199 lb 9.6 oz) SpO2 99% BMI 35.64 kg/m PAST MEDICAL HISTORY Diagnosis Date Diabetes (HCC) adult onset Fibromyalgia Graves disease High blood pressure HSV-2 infection Interstitial lung disease (HCC) Lupus (HCC) Mixed connective tissue disease (HCC) Raynaud disease PAST SURGICAL HISTORY Procedure Laterality Date D AND C HYSTERECTOMY LAPAROSCOPY DIAGNOSTIC PAST SURGICAL HISTORY OF 7 sinus surgeries PAST SURGICAL HISTORY OF bilateral cataract surgeries TONSILLECTOMY HX ALLERGIES Cantaloupe, Levaquin [Levofloxacin], and Sulfa (Sulfonamide Antibiotics) MEDICATIONS metFORMIN ER (GLUCOPHAGE XR) 500 mg 24 hr tablet take 1 tablet by mouth every morning and 2 tablets by mouth every evening with meals fluticasone (FLONASE) 50 mcg/actuation nasal spray Use 2 Sprays in each nostril once daily. lansoprazole (PREVACID) 30 mg capsule Take 1 capsule by mouth daily before breakfast. 1/2 hr before meal. losartan (COZAAR) 100 mg tablet Take 0.5 tablets by mouth once daily. hydroCHLOROthiazide (HYDRODIURIL, ESIDRIX) 25 mg tablet Take 1 tablet by mouth once daily. citalopram (CELEXA) 20 mg tablet Take 1 tablet by mouth once daily. nebivolol (BYSTOLIC) 10 mg tablet Take 1 tablet by mouth once daily. EPINEPHrine (EPIPEN) 0.3 mg/0.3 mL auto-injector Use per directed for severe allergic reaction lancets ([employer] DELICA PLUS LANCET) 33 gauge Test blood sugar(s) 1 times daily. Dx: Type 2 DM - Controlled E11.9 Insulin: No blood sugar diagnostic ([employer] ULTRA TEST) test strip use 1 TEST STRIP to TEST BLOOD SUGAR once daily levalbuterol tartrate HFA (XOPENEX HFA) 45 mcg/actuation inhaler Inhale 1-2 Puffs as instructed every 4 hours as needed. budesonide (PULMICORT) 1 mg/2 mL nebulizer solution INSTILL RESPULE IN NASAL SALINE WASHES AND USE TWICE DAILY montelukast (SINGULAIR) 10 mg tablet Take 1 tablet by mouth once daily. triamcinolone acetonide (KENALOG) 0.1 % cream Apply to affected area twice daily. For 7-10 days. nystatin (MYCOSTATIN) powder Apply 1 application to affected area three times daily. Blood-Glucose Meter Dispense 1 kit nitrofurantoin monohydrate and macrocrystal (MACROBID) 100 mg capsule Take 1 capsule by mouth twice daily for 5 days. FAMILY HISTORY Problem Relation Age of Onset Heart Mother stents Hypertension Mother other (pacemaker) Mother other (enlarged heart) Mother other (vertigo) Mother Prostate Cancer Father other (sjogrens) Sister Social History Tobacco Use Smoking status: Never Smoker Smokeless tobacco: Never Used Vaping Use Vaping Use: Never used Substance Use Topics Alcohol use: Not Currently Comment: rare Drug use: Never Objective Physical Exam Vitals (Appointment with PCP for re-evaluation of BP) and nursing note reviewed. Constitutional: Appearance: Normal appearance. Cardiovascular: Rate and Rhythm: Normal rate and regular rhythm. Pulmonary: Effort: Pulmonary effort is normal. Breath sounds: Normal breath sounds. Abdominal: General: Abdomen is flat. There is no distension. Palpations: Abdomen is soft. Tenderness: There is no abdominal tenderness. There is no right CVA tenderness, left CVA tenderness, guarding or rebound. Neurological: Mental Status: She is alert. ASSESSMENT/PLAN: 1. 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 Kathy Alejandre APRN.GIRLS SWIMMING COACH TEACHING PROVIDER (Physician/PA/SCHOOL ATHLETIC DIRECTOR) NOTE OF PERSONAL INVOLVEMENT IN CARE: I have personally seen and examined the patient and performed the medical decision-making components. I have reviewed the Advanced Practice Registered Nurse (SCHOOL ATHLETIC DIRECTOR) Student's documentation and verified the findings in the note as written. Any additions or changes are noted in bold/italics. Signature: Kathy Alejandre Date: 10/10/2021 Time: 7:50 PM documented in this encounter [facility] 10-10-2021 Instructions Ximena Narvaez - 10/10/2021 6:27 PM EDT ASSESSMENT/PLAN: 1. Frequency of urination - ICD9: 788.41, ICD10: R35.0 acute - Send urine for culture - Begin treatment with Macrobid 100 mg BID for 5 days - Patient education for prevention given - UA DIP, URINE (POC) - URINE CULTURE DEL [employer] student Patient Education for Female Urinary Tract Infections Expected course/prognosis: * symptoms resolve within 2-3 days after starting treatment in almost all patients * one-fourth of women with simple UTI experience a second UTI within 6 months, and half at some time during lifetime. * patients with multiple recurrent UTI and no underlying urinary tract abnormality may receive long-term prophylactic antibioitic treatment. Trimethoprim-sulfamethoxazole and nitrofurantoin common used. * women with frequent or intercourse-related UTI should empty bladder immediately before and following intercourse and consider postcoital antibiotic treament Instructions: * Maintain good hydration * Avoid sexual intercourse when symptoms present *Take antibiotic as directed * Return if symptoms not resolved or markedly improved within 48 hours * Return if fever, chills, or flank pain develop * If taking prophylactic antiobiotics, take at bedtime * Take showers instead of tub baths * Avoid feminine hygiene sprays and scented douches * Wipe urethra from front to back documented in this encounter [facility] 09-22-2021 Miscellaneous Notes September 22, 2021 PID: [id number] Cassia Holland [address] [place] [address] Dear Ms. Holland, Your recent breast imaging exam on 09/22/2021 showed a possible finding that requires additional imaging studies for a complete evaluation. Most such findings are probably benign (not cancer). Your mammogram demonstrates that you have dense breast tissue, which could hide abnormalities. Dense breast tissue, in and of itself, is a relatively common condition. Therefore, this information is not provided to cause undue concern; rather, it is to raise your awareness and promote discussion with your health care provider regarding the presence of dense breast tissue in addition to other risk factors. If you have a healthcare provider who ordered/prescribed your screening mammogram: Please call [phone] or [phone]: [phone] to schedule an appointment for your additional imaging (if you have not already done so). If you DO NOT have a healthcare provider (ie you did not have an order/prescription for your screening mammogram): Please call to schedule an appointment for your additional imaging (if you have not already done so). You must have an order/prescription from your physician when calling to schedule your appointment. If your order/prescription is not electronic, you must bring the hard copy with you on the day of your exam to avoid delays. Your imaging studies and reports are kept on file at [facility] as part of your permanent medical record, and are available for your continuing care. Thank you for allowing us to help in meeting your health care needs. Sincerely, Dr. Swain Interpreting Radiologist [facility] (Additional imaging) documented in this encounter [facility] 09-19-2021 Instructions Dyana Valadez APRN.ANTHONY - 09/19/2021 3:35 PM EDT 1. Routine course of ibuprofen X 1 week. 2. Ice to the area. 3. If no better or any worsening, let us know. documented in this encounter [facility] 09-19-2021 History of Present illness Narrative This is a 56 year old female who presents today with: Patient presents with: Acute Visit: lump on sternum x 1 week HISTORY OF PRESENT ILLNESS: Cassia Holland is a 56 year old female. Patient presents with: Acute Visit: lump on sternum x 1 week Pt presents today with complaint of a lump on her sternum. Refers that it has been there for about a week. It is sensitive in nature. Refers that she has tingling that goes across the upper abdomen. Refers that it is both arms too. Nothing steady. Refers that it is hit or miss. [place] like it may be a little larger since she first noticed it. No discoloration. No rash. Does admit that it will touch against counter at work as she frequently has to bend/lean over counter. Occasionally will take tylenol/ibuprofen for pain. PAST MEDICAL HISTORY: PAST MEDICAL HISTORY Diagnosis Date Diabetes (HCC) adult onset Fibromyalgia Graves disease High blood pressure HSV-2 infection Interstitial lung disease (HCC) Lupus (HCC) Mixed connective tissue disease (HCC) Raynaud disease PAST SURGICAL HISTORY Procedure Laterality Date D AND C HYSTERECTOMY LAPAROSCOPY DIAGNOSTIC PAST SURGICAL HISTORY OF 7 sinus surgeries PAST SURGICAL HISTORY OF bilateral cataract surgeries TONSILLECTOMY HX ALLERGIES Cantaloupe, Levaquin [Levofloxacin], and Sulfa (Sulfonamide Antibiotics) MEDICATIONS Current Outpatient Medications Medication Sig fluticasone (FLONASE) 50 mcg/actuation nasal spray Use 2 Sprays in each nostril once daily. lansoprazole (PREVACID) 30 mg capsule Take 1 capsule by mouth daily before breakfast. 1/2 hr before meal. metFORMIN ER (GLUCOPHAGE XR) 500 mg 24 hr tablet take 1 tablet by mouth every morning and 2 tablets every evening with meals losartan (COZAAR) 100 mg tablet Take 0.5 tablets by mouth once daily. hydroCHLOROthiazide (HYDRODIURIL, ESIDRIX) 25 mg tablet Take 1 tablet by mouth once daily. citalopram (CELEXA) 20 mg tablet Take 1 tablet by mouth once daily. nebivolol (BYSTOLIC) 10 mg tablet Take 1 tablet by mouth once daily. EPINEPHrine (EPIPEN) 0.3 mg/0.3 mL auto-injector Use per directed for severe allergic reaction lancets (PostachioUCH DELICA PLUS LANCET) 33 gauge Test blood sugar(s) 1 times daily. Dx: Type 2 DM - Controlled E11.9 Insulin: No blood sugar diagnostic (PostachioUCH ULTRA TEST) test strip use 1 TEST STRIP to TEST BLOOD SUGAR once daily levalbuterol tartrate HFA (XOPENEX HFA) 45 mcg/actuation inhaler Inhale 1-2 Puffs as instructed every 4 hours as needed. budesonide (PULMICORT) 1 mg/2 mL nebulizer solution INSTILL RESPULE IN NASAL SALINE WASHES AND USE TWICE DAILY montelukast (SINGULAIR) 10 mg tablet Take 1 tablet by mouth once daily. triamcinolone acetonide (KENALOG) 0.1 % cream Apply to affected area twice daily. For 7-10 days. nystatin (MYCOSTATIN) powder Apply 1 application to affected area three times daily. Blood-Glucose Meter Dispense 1 kit No current facility-administered medications for this visit. FAMILY HISTORY Problem Relation Age of Onset Heart Mother stents Hypertension Mother other (pacemaker) Mother other (enlarged heart) Mother other (vertigo) Mother Prostate Cancer Father other (sjogrens) Sister Social History Tobacco Use Smoking status: Never Smoker Smokeless tobacco: Never Used Vaping Use Vaping Use: Never used Substance Use Topics Alcohol use: Not Currently Comment: rare Drug use: Never EXAM: BP 132/80 Pulse 73 Resp 18 SpO2 98% PHYSICAL EXAM: General Appearance: Well appearing, alert, in no acute distress, well-hydrated, well nourished.. Skin: Skin color, texture, turgor normal, no suspicious rashes or lesions. Head: Normocephalic, no masses, lesions, tenderness or abnormalities. Eyes: Anicteric sclera. Extraocular movements are intact. . Lungs: Lungs clear to auscultation. No wheezing, rhonchi, rales.. Heart: RRR without murmur, gallop, or rubs. No ectopy. Discomfort with palpation over xyphoid process. No deformity. No discoloration. Neurologic: Gait normal. ASSESSMENT/PLAN: 1. Xyphoidalgia - ICD9: 733.90, ICD10: R07.89 Routine course of NSAIDs x1 week. Can ice the area. Notify provider if no better or any worsening of symptoms. Discussed treatment plan and patient voices understanding. Patient's questions answered appropriately. Medications and potential side effects were discussed and patient voices understanding. Return to the office as scheduled or as needed for worsening/no improvement. Dyana Valadez APRN.ANTHONY The patient indicates understanding of these issues and agrees with the plan. This note was partially generated using [employer] voice recognition system. Note was reviewed for accuracy. There may be minor misspellings or grammar miscues with [employer] voice recognition. documented in this encounter [facility] 08-08-2021 Miscellaneous Notes NOV 09/15/21 REGULO 06/16/21 Patient electronically sent a request for the following prescription(s) Pending Prescriptions Disp Refills LANSOPRAZOLE 30 MG CAPSULE,DELAYED RELEASE 30 capsule 11 Sig: Take 1 capsule by mouth daily before breakfast. 1/2 hr before meal. LANCE: No Patient aware RX will be sent to pharmacy. No need to notify patient. Please review. Elicia Kidd MA documented in this encounter [facility] Diagnosis Abnormal mammogram- Primary Abnormal mammogram, unspecified [facility] Diagnosis Frequency of urination- Primary Urinary frequency [facility] Diagnosis Xyphoidalgia- Primary Disorder of bone and cartilage, unspecified RUQ pain Abdominal pain, right upper quadrant Nausea Nausea alone Type 2 diabetes mellitus without complication, without long-term current use of insulin (HCC) [facility] Diagnosis Elevated liver enzymes- Primary Other nonspecific abnormal serum enzyme levels Fatty liver Other chronic nonalcoholic liver disease [facility] Diagnosis Mastalgia Mastodynia [facility] Diagnosis Sore throat- Primary Acute pharyngitis Exposure to COVID-19 virus [facility] Diagnosis Liver fibrosis- Primary Cirrhosis of liver without mention of alcohol Elevated liver enzymes Other nonspecific abnormal serum enzyme levels [facility] Diagnosis Type 2 diabetes mellitus without complication, without long-term current use of insulin (HCC)- Primary Hypertension, unspecified type Interstitial lung disease (HCC) Postinflammatory pulmonary fibrosis Mixed hyperlipidemia Bacteria in urine Other nonspecific finding on examination of urine Leukocytes in urine Other cells and casts in urine Acute non-recurrent sinusitis, unspecified location Need for influenza vaccination Need for prophylactic vaccination and inoculation against influenza [facility] Diagnosis Suspected COVID-19 virus infection- Primary [facility] Diagnosis Upper respiratory symptom- Primary Other symptoms involving respiratory system and chest UTI symptoms Other symptoms involving urinary system [facility] Diagnosis Type 2 diabetes mellitus without complication, without long-term current use of insulin (HCC) [facility] Diagnosis Other acute sinusitis, recurrence not specified- Primary [facility] Diagnosis Fatigue, unspecified type- Primary Acute cough Shortness of breath [facility] Diagnosis Type 2 diabetes mellitus without complication, without long-term current use of insulin (HCC) [facility] Diagnosis Chest pain, unspecified type- Primary Palpitations Headaches Type 2 diabetes mellitus without complication, without long-term current use of insulin (HCC) Hypertension, unspecified type [facility] Diagnosis Chest pain, unspecified type- Primary Palpitations Type 2 diabetes mellitus without complication, without long-term current use of insulin (HCC) Hypertension, unspecified type Xyphoidalgia Disorder of bone and cartilage, unspecified Headaches [facility] Diagnosis Viral illness- Primary Unspecified viral infection, in conditions classified elsewhere and of unspecified site [facility] Diagnosis SVT (supraventricular tachycardia) (HCC)- Primary Other specified cardiac dysrhythmias [facility] Diagnosis Graves disease- Primary Toxic diffuse goiter without mention of thyrotoxic crisis or storm History of Srini thyroiditis Personal history of other endocrine, metabolic, and immunity disorders Hypertension, unspecified type Acute non-recurrent maxillary sinusitis [facility] Diagnosis Graves disease- Primary Toxic diffuse goiter without mention of thyrotoxic crisis or storm History of Srini thyroiditis Personal history of other endocrine, metabolic, and immunity disorders Palpitations [facility] Diagnosis Acute recurrent sinusitis, unspecified location- Primary [facility] Diagnosis Type 2 diabetes mellitus without complication, without long-term current use of insulin (HCC)- Primary Hypertension, unspecified type Liver fibrosis Cirrhosis of liver without mention of alcohol RUQ pain Abdominal pain, right upper quadrant Vaginal candidiasis Candidiasis of vulva and vagina Palpitations [facility] Diagnosis Encounter for gynecological examination (general) (routine) without abnormal findings- Primary Encounter for screening mammogram for breast cancer Vaginal itching Pruritus of genital organs Dense breast tissue on mammogram Vulvar itching Pruritus of genital organs Vulvar candidiasis Candidiasis of vulva and vagina [facility] Diagnosis Diabetes (HCC) Type II or unspecified type diabetes mellitus without mention of complication, not stated as uncontrolled [facility] Diagnosis Leg swelling- Primary Swelling of limb [facility] Diagnosis Bacterial sinusitis- Primary Unspecified sinusitis (chronic) [facility] Diagnosis Cellulitis of right lower extremity- Primary Cellulitis and abscess of leg, except foot Subacute sinusitis, unspecified location RUQ pain Abdominal pain, right upper quadrant Liver fibrosis Cirrhosis of liver without mention of alcohol Type 2 diabetes mellitus without complication, without long-term current use of insulin (HCC) [facility] Diagnosis Cellulitis of right lower extremity- Primary Cellulitis and abscess of leg, except foot Dependent edema Edema documented in this encounter [facility] note* Diagnosis Procedure not carried out- Primary Procedure not carried out for other reasons documented in this encounter [facility] note* Diagnosis New onset a-fib (HCC)- Primary Atrial fibrillation Type 2 diabetes mellitus without complication, without long-term current use of insulin (HCC) documented in this encounter [facility] note* Diagnosis Encounter for screening mammogram for breast cancer Dense breast tissue on mammogram documented in this encounter [facility] note* Diagnosis Liver fibrosis Cirrhosis of liver without mention of alcohol documented in this encounter [facility] note* Diagnosis Chronic sinusitis, unspecified location- Primary documented in this encounter [facility] note* Diagnosis New onset a-fib (HCC)- Primary Atrial fibrillation documented in this encounter [facility] note* Diagnosis Viral illness- Primary Unspecified viral infection, in conditions classified elsewhere and of unspecified site documented in this encounter [facility] for referral (narrative)* Diagnostic Procedure Only (Routine) - Pending Review Specialty Diagnoses / Procedures Referred By Abeba moe Referred To Contact [facility] Diagnoses Abnormal mammogram Procedures MIN DIAGNOSTIC RT DIAGNOSTIC MAMMOGRAPHY COMPUTER-AIDED DETCJ UNI Hui Lewis APRN.GIRLS [employer] [address] [place] [address] [facility] [address] [place] [address] Referral ID Status Reason Start Date Expiration Date Visits Requested Visits Authorized [id number] Pending Review Auto-Generat ed Referral 09/26/2021 10/26/2022 1 1 * Diagnostic Procedure Only (Routine) - Pending Review Specialty Diagnoses / Procedures Referred By Abeba moe Referred To Contact [facility] Diagnoses Abnormal mammogram Procedures US BREAST LTD RT US BREAST UNI REAL TIME WITH IMAGE LIMITED Hui Lewis APRN.CNP [address] [place] [address] [facility] [address] [place] [address] Referral ID Status Reason Start Date Expiration Date Visits Requested Visits Authorized [id number] Pending Review Auto-Generat ed Referral 09/26/2021 10/26/2022 1 1 [facility] for referral (narrative)* Diagnostic Procedure Only (Routine) - Closed Specialty Diagnoses / Procedures Referred By Contac t Referred To Contact [facility] Diagnoses Type 2 diabetes mellitus without complication, without long-term current use of insulin (HCC) Procedures XR STERNUM 2V DESAI/LAT RADEX STERNUM MINIMUM 2 VIEWS Leda Brown APRN.GIR[employer] CO[employer] [address] [place] [address] X[facility] Referral ID Status Reason Start Date Expiration Date V isits Requested Visits Authorized [id number] Closed Auto-Generate d Referral 10/13/2021 05/06/2022 1 1 * Diagnostic Procedure Only (Routine) - Closed Specialty Diagnoses / Procedures Referred By Contac t Referred To Contact [facility] Diagnoses Type 2 diabetes mellitus without complication, without long-term current use of insulin (HCC) RUQ pain Nausea Procedures US ABD RT UPPER QUADRANT US ABDOMINAL REAL TIME W/IMAGE LIMITED Leda Brown APRN.GIR[employer] [address] [place] [address] [facility] Referral ID Status Reason Start Date Expiration Date V isits Requested Visits Authorized [id number] Closed Auto-Generate d Referral 10/13/2021 05/06/2022 1 1 [facility] for referral (narrative)* Outpatient Procedure (Routine) - Pending Review Specialty Diagnoses / Procedures Referred By Contac t Referred To Contact [facility] Diagnoses Elevated liver enzymes Fatty liver Procedures DDI VIBRATION CONTROLLED TRANSIENT ELASTOGRAPHY (VCTE) LIVER ELASTOGRAPHY W/O IMAG W/I&R Leda Brown APRN.GIR[employer] COACH [address] [place] [address] [facility] [address] [place] [address] Referral ID Status Reason Start Date Expiration Date Visits Requested Visits Authorized [id number] Pending Review Auto-Generat ed Referral 10/17/2021 10/17/2022 1 1 [facility] for referral (narrative)* Outpatient Procedure (Routine) - Pending Review Specialty Diagnoses / Procedures Referred By Contac t Referred To Contact [facility] Diagnoses Chest pain, unspecified type Palpitations Procedures ECG COMPLETE ECG ROUTINE ECG W/LEAST 12 LDS W/I&R Leda Brown APRN.GIR[employer] [address] [place] [address] [facility]ly [facility] [address] [address] Referral ID Status Reason Start Date Expiration Date Visits Requested Visits Authorized [id number] Pending Review Auto-Generat ed Referral 06/15/2022 06/15/2023 1 1 * Consult, Test, Treat (Routine) - Authorized Specialty Diagnoses / Procedures Referred By Contac t Referred To Contact [facility] Diagnoses Chest pain, unspecified type Palpitations Procedures ECHO ECHO TTHRC R-T 2D W/WOM-MODE COMPL SPEC&COLR D Leda Brown APRN.[employer]IR[employer] [address] [place] [address] [facility] [address] [address] Referral ID Status Reason Start Date Expiration Date Visits Requested Visits Authorized [id number] Authorized Auto-Generat ed Referral 06/22/2022 05/06/2023 1 1 [facility] for referral (narrative)* Diagnostic Procedure Only (Routine) - Authorized Specialty Diagnoses / Procedures Referred By Contac t Referred To Contact [facility] Diagnoses Liver fibrosis Procedures US ABD RIGHT UPPER QUADRANT US ABDOMINAL REAL TIME W/IMAGE LIMITED Leda Brown APRN.GIR[employer] [address] [place] [address] [facility] Referral ID Status Reason Start Date Expiration Date Visits Requested Visits Authorized [id number] Authorized Auto-Generat ed Referral 09/21/2022 05/06/2023 1 1 [facility] for referral (narrative)* Diagnostic Procedure Only (Routine) - Authorized Specialty Diagnoses / Procedures Referred By Contac t Referred To Contact [facility] Diagnoses Encounter for screening mammogram for breast cancer Dense breast tissue on mammogram Procedures MIN SCREENING W ROBERT SCREENING DIGITAL BREAST TOMOSYNTHESIS BI SCREENING MAMMOGRAPHY BI 2-VIEW BREAST INC Chhaya Hernandez MD [address] [place] [address] [facility] [address] [place] [address] Referral ID Status Reason Start Date Expiration Date Visits Requested Visits Authorized [id number] Authorized Auto-Generat ed Referral 11/09/2022 05/06/2023 1 1 T [facility] for referral (narrative)* Diagnostic Procedure Only (Routine) - Closed Specialty Diagnoses / Procedures Referred By Contac t Referred To Contact [facility] Diagnoses Encounter for screening mammogram for breast cancer Dense breast tissue on mammogram Procedures MIN SCREENING W ROBERT SCREENING DIGITAL BREAST TOMOSYNTHESIS BI SCREENING MAMMOGRAPHY BI 2-VIEW BREAST INC Chhaya Hernandez MD [address] [place] [address] [facility] [address] [place] [address] Referral ID Status Reason Start Date Expiration Date V isits Requested Visits Authorized [id number] Closed Auto-Generate d Referral 11/09/2022 05/06/2023 1 1 T [facility] for referral (narrative)* Diagnostic Procedure Only (Routine) - Closed Specialty Diagnoses / Procedures Referred By Contac t Referred To Contact [facility] Diagnoses Liver fibrosis Procedures US ABD RIGHT UPPER QUADRANT US ABDOMINAL REAL TIME W/IMAGE LIMITED Leda Brown APRN.GIRLS [employer]ACH [address] [place] [address] [place] [address] Referral ID Status Reason Start Date Expiration Date V isits Requested Visits Authorized [id number] Closed Auto-Generate d Referral 09/21/2022 05/06/2023 1 1 [facility] for visit Narrative* Diagnostic Procedure Only (Routine) - Closed Specialty Diagnoses / Procedures Referred By Contac t Referred To Contact [facility] Diagnoses Encounter for screening mammogram for breast cancer Dense breast tissue on mammogram Procedures MIN SCREENING W ROBERT SCREENING DIGITAL BREAST TOMOSYNTHESIS BI SCREENING MAMMOGRAPHY BI 2-VIEW BREAST INC CAD Chhaya Crowe MD [address] [place] [address] [facility] [address] [place] [address] Referral ID Status Reason Start Date Expiration Date V isits Requested Visits Authorized [id number] Closed Auto-Generate d Referral 11/09/2022 05/06/2023 1 1 [facility] Summary Purpose Family History No Family History Records FoundNo Family History Records FoundNo Family History Records FoundNo Family History Records Found Advance Directives No Advanced Directives Records FoundNo Advanced Directives Records FoundNo Advanced Directives Records FoundNo Advanced Directives Records Found Reason for Referral Specialty Diagnoses / Procedures Referred By Contac t Referred To Contact Diagnoses Liver fibrosis Elevated liver enzymes Procedures CONSULT TO HEPATOLOGY OFFICE/OUTPATIENT NEW HIGH MDM 60-74 MINUTES Leda Brown APRN.GIR[employer] [address] [place] [address] Referral ID Status Reason Start Date Expiration Date Visits Requested Visits Authorized [id number] Pending Review PCP Requested Referral 11/11/2021 11/11/2022 1 1 Specialty Diagnoses / Procedures Referred By Contac t Referred To Contact Leda Brown APRN.GIR[employer] [address] [place] [address] Referral ID Status Reason Start Date Expiration Date V isits Requested Visits Authorized [id number] Pending Review 1 1 Specialty Diagnoses / Procedures Referred By Contac t Referred To Contact Cardiology Diagnoses SVT (supraventricular tachycardia) (HCC) Procedures CONSULT TO CARDIOLOGY OFFICE/OUTPATIENT [facility] 60-74 MINUTES 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 LedaGIRLS SWIMMING COACH [address] [place] [address] Referral ID Status Reason Start Date Expiration Date Visits Requested Visits Authorized [id number] Pending Review PCP Requested Referral 08/17/2022 08/17/2023 1 1 Health Concerns Infection Onset Date Last Indicated Resolved Time COVID-19 Rule-Out 11/20/2021 11/20/2021 11/21/2021 2:40 AM EDT Infection Onset Date Last Indicated Resolved Time COVID-19 Rule-Out 02/07/2022 02/07/2022 Infection Onset Date Last Indicated Resolved Time COVID-19 Rule-Out 07/17/2022 07/17/2022 Infection Onset Date Last Indicated Resolved Time COVID-19 Rule-Out 03/12/2023 03/12/2023 03/12/2023 11:28 PM EST Additional Source Comments INFORMATION SOURCE (unrecogn ized section and content) DATE CREATED AUTHOR AUTHOR'S ORGANIZ ATION 04/06/2023 [facility] DATE CREATED AUTHOR AUTHOR'S ORGANIZ ATION 04/15/2023 [facility] DATE CREATED AUTHOR AUTHOR'S ORGANIZ ATION 05/24/2023 [facility] Source Comments (unrecognize d section and content) In the event this informatio n is protected by the Federal Confidentiality of Alcohol and Drug Abuse Patient Records regulations: The Federal rules restrict any use of the information to criminally investigate or prosecute any alcohol or drug abuse patient.[facility] the event this information is protected by the Federal Confidentiality of Alcohol and Drug Abuse Patient Records regulations: The Federal rules restrict any use of the information to criminally investigate or prosecute any alcohol or drug abuse patient.[facility] the event this information is protected by the Federal Confidentiality of Alcohol and Drug Abuse Patient Records regulations: The Federal rules restrict any use of the information to criminally investigate or prosecute any alcohol or drug abuse patient.[facility] the event this information is protected by the Federal Confidentiality of Alcohol and Drug Abuse Patient Records regulations: The Federal rules restrict any use of the information to criminally investigate or prosecute any alcohol or drug abuse patient.[facility] the event this information is protected by the Federal Confidentiality of Alcohol and Drug Abuse Patient Records regulations: The Federal rules restrict any use of the information to criminally investigate or prosecute any alcohol or drug abuse patient.[facility] the event this information is protected by the Federal Confidentiality of Alcohol and Drug Abuse Patient Records regulations: The Federal rules restrict any use of the information to criminally investigate or prosecute any alcohol or drug abuse patient.[facility] the event this information is protected by the Federal Confidentiality of Alcohol and Drug Abuse Patient Records regulations: The Federal rules restrict any use of the information to criminally investigate or prosecute any alcohol or drug abuse patient.[facility] the event this information is protected by the Federal Confidentiality of Alcohol and Drug Abuse Patient Records regulations: The Federal rules restrict any use of the information to criminally investigate or prosecute any alcohol or drug abuse patient.[facility] the event this information is protected by the Federal Confidentiality of Alcohol and Drug Abuse Patient Records regulations: The Federal rules restrict any use of the information to criminally investigate or prosecute any alcohol or drug abuse patient.[facility] the event this information is protected by the Federal Confidentiality of Alcohol and Drug Abuse Patient Records regulations: The Federal rules restrict any use of the information to criminally investigate or prosecute any alcohol or drug abuse patient.[facility] the event this information is protected by the Federal Confidentiality of Alcohol and Drug Abuse Patient Records regulations: The Federal rules restrict any use of the information to criminally investigate or prosecute any alcohol or drug abuse patient.[facility] the event this information is protected by the Federal Confidentiality of Alcohol and Drug Abuse Patient Records regulations: The Federal rules restrict any use of the information to criminally investigate or prosecute any alcohol or drug abuse patient.[facility] the event this information is protected by the Federal Confidentiality of Alcohol and Drug Abuse Patient Records regulations: The Federal rules restrict any use of the information to criminally investigate or prosecute any alcohol or drug abuse patient.[facility] the event this information is protected by the Federal Confidentiality of Alcohol and Drug Abuse Patient Records regulations: The Federal rules restrict any use of the information to criminally investigate or prosecute any alcohol or drug abuse patient.[facility] the event this information is protected by the Federal Confidentiality of Alcohol and Drug Abuse Patient Records regulations: The Federal rules restrict any use of the information to criminally investigate or prosecute any alcohol or drug abuse patient.[facility] the event this information is protected by the Federal Confidentiality of Alcohol and Drug Abuse Patient Records regulations: The Federal rules restrict any use of the information to criminally investigate or prosecute any alcohol or drug abuse patient.[facility] HospitalIn the event this information is protected by the Federal Confidentiality of Alcohol and Drug Abuse Patient Records regulations: The Federal rules restrict any use of the information to criminally investigate or prosecute any alcohol or drug abuse patient.[facility] HospitalIn the event this information is protected by the Federal Confidentiality of Alcohol and Drug Abuse Patient Records regulations: The Federal rules restrict any use of the information to criminally investigate or prosecute any alcohol or drug abuse patient.[facility] HospitalIn the event this information is protected by the Federal Confidentiality of Alcohol and Drug Abuse Patient Records regulations: The Federal rules restrict any use of the information to criminally investigate or prosecute any alcohol or drug abuse patient.[facility] HospitalIn the event this information is protected by the Federal Confidentiality of Alcohol and Drug Abuse Patient Records regulations: The Federal rules restrict any use of the information to criminally investigate or prosecute any alcohol or drug abuse patient.[facility] HospitalIn the event this information is protected by the Federal Confidentiality of Alcohol and Drug Abuse Patient Records regulations: The Federal rules restrict any use of the information to criminally investigate or prosecute any alcohol or drug abuse patient.[facility] HospitalIn the event this information is protected by the Federal Confidentiality of Alcohol and Drug Abuse Patient Records regulations: The Federal rules restrict any use of the information to criminally investigate or prosecute any alcohol or drug abuse patient.[facility] HospitalIn the event this information is protected by the Federal Confidentiality of Alcohol and Drug Abuse Patient Records regulations: The Federal rules restrict any use of the information to criminally investigate or prosecute any alcohol or drug abuse patient.[facility] HospitalIn the event this information is protected by the Federal Confidentiality of Alcohol and Drug Abuse Patient Records regulations: The Federal rules restrict any use of the information to criminally investigate or prosecute any alcohol or drug abuse patient.[facility] HospitalIn the event this information is protected by the Federal Confidentiality of Alcohol and Drug Abuse Patient Records regulations: The Federal rules restrict any use of the information to criminally investigate or prosecute any alcohol or drug abuse patient.[facility] HospitalIn the event this information is protected by the Federal Confidentiality of Alcohol and Drug Abuse Patient Records regulations: The Federal rules restrict any use of the information to criminally investigate or prosecute any alcohol or drug abuse patient.[facility] HospitalIn the event this information is protected by the Federal Confidentiality of Alcohol and Drug Abuse Patient Records regulations: The Federal rules restrict any use of the information to criminally investigate or prosecute any alcohol or drug abuse patient.[facility] HospitalIn the event this information is protected by the Federal Confidentiality of Alcohol and Drug Abuse Patient Records regulations: The Federal rules restrict any use of the information to criminally investigate or prosecute any alcohol or drug abuse patient.[facility] HospitalIn the event this information is protected by the Federal Confidentiality of Alcohol and Drug Abuse Patient Records regulations: The Federal rules restrict any use of the information to criminally investigate or prosecute any alcohol or drug abuse patient.[facility] HospitalIn the event this information is protected by the Federal Confidentiality of Alcohol and Drug Abuse Patient Records regulations: The Federal rules restrict any use of the information to criminally investigate or prosecute any alcohol or drug abuse patient.[facility] HospitalIn the event this information is protected by the Federal Confidentiality of Alcohol and Drug Abuse Patient Records regulations: The Federal rules restrict any use of the information to criminally investigate or prosecute any alcohol or drug abuse patient.[facility] HospitalIn the event this information is protected by the Federal Confidentiality of Alcohol and Drug Abuse Patient Records regulations: The Federal rules restrict any use of the information to criminally investigate or prosecute any alcohol or drug abuse patient.[facility] HospitalIn the event this information is protected by the Federal Confidentiality of Alcohol and Drug Abuse Patient Records regulations: The Federal rules restrict any use of the information to criminally investigate or prosecute any alcohol or drug abuse patient.[facility] HospitalIn the event this information is protected by the Federal Confidentiality of Alcohol and Drug Abuse Patient Records regulations: The Federal rules restrict any use of the information to criminally investigate or prosecute any alcohol or drug abuse patient.[facility] HospitalIn the event this information is protected by the Federal Confidentiality of Alcohol and Drug Abuse Patient Records regulations: The Federal rules restrict any use of the information to criminally investigate or prosecute any alcohol or drug abuse patient.[facility] HospitalIn the event this information is protected by the Federal Confidentiality of Alcohol and Drug Abuse Patient Records regulations: The Federal rules restrict any use of the information to criminally investigate or prosecute any alcohol or drug abuse patient.[facility] HospitalIn the event this information is protected by the Federal Confidentiality of Alcohol and Drug Abuse Patient Records regulations: The Federal rules restrict any use of the information to criminally investigate or prosecute any alcohol or drug abuse patient.[facility] HospitalIn the event this information is protected by the Federal Confidentiality of Alcohol and Drug Abuse Patient Records regulations: The Federal rules restrict any use of the information to criminally investigate or prosecute any alcohol or drug abuse patient.[facility] HospitalIn the event this information is protected by the Federal Confidentiality of Alcohol and Drug Abuse Patient Records regulations: The Federal rules restrict any use of the information to criminally investigate or prosecute any alcohol or drug abuse patient.[facility] HospitalIn the event this information is protected by the Federal Confidentiality of Alcohol and Drug Abuse Patient Records regulations: The Federal rules restrict any use of the information to criminally investigate or prosecute any alcohol or drug abuse patient.[facility] HospitalIn the event this information is protected by the Federal Confidentiality of Alcohol and Drug Abuse Patient Records regulations: The Federal rules restrict any use of the information to criminally investigate or prosecute any alcohol or drug abuse patient.[facility] HospitalIn the event this information is protected by the Federal Confidentiality of Alcohol and Drug Abuse Patient Records regulations: The Federal rules restrict any use of the information to criminally investigate or prosecute any alcohol or drug abuse patient.[facility] HospitalIn the event this information is protected by the Federal Confidentiality of Alcohol and Drug Abuse Patient Records regulations: The Federal rules restrict any use of the information to criminally investigate or prosecute any alcohol or drug abuse patient.[facility] HospitalIn the event this information is protected by the Federal Confidentiality of Alcohol and Drug Abuse Patient Records regulations: The Federal rules restrict any use of the information to criminally investigate or prosecute any alcohol or drug abuse patient.[facility] HospitalIn the event this information is protected by the Federal Confidentiality of Alcohol and Drug Abuse Patient Records regulations: The Federal rules restrict any use of the information to criminally investigate or prosecute any alcohol or drug abuse patient.[facility] HospitalIn the event this information is protected by the Federal Confidentiality of Alcohol and Drug Abuse Patient Records regulations: The Federal rules restrict any use of the information to criminally investigate or prosecute any alcohol or drug abuse patient.[facility] HospitalIn the event this information is protected by the Federal Confidentiality of Alcohol and Drug Abuse Patient Records regulations: The Federal rules restrict any use of the information to criminally investigate or prosecute any alcohol or drug abuse patient.[facility] HospitalIn the event this information is protected by the Federal Confidentiality of Alcohol and Drug Abuse Patient Records regulations: The Federal rules restrict any use of the information to criminally investigate or prosecute any alcohol or drug abuse patient.[facility] HospitalIn the event this information is protected by the Federal Confidentiality of Alcohol and Drug Abuse Patient Records regulations: The Federal rules restrict any use of the information to criminally investigate or prosecute any alcohol or drug abuse patient.[facility] HospitalIn the event this information is protected by the Federal Confidentiality of Alcohol and Drug Abuse Patient Records regulations: The Federal rules restrict any use of the information to criminally investigate or prosecute any alcohol or drug abuse patient.[facility] HospitalIn the event this information is protected by the Federal Confidentiality of Alcohol and Drug Abuse Patient Records regulations: The Federal rules restrict any use of the information to criminally investigate or prosecute any alcohol or drug abuse patient.[facility] HospitalIn the event this information is protected by the Federal Confidentiality of Alcohol and Drug Abuse Patient Records regulations: The Federal rules restrict any use of the information to criminally investigate or prosecute any alcohol or drug abuse patient.[facility] HospitalIn the event this information is protected by the Federal Confidentiality of Alcohol and Drug Abuse Patient Records regulations: The Federal rules restrict any use of the information to criminally investigate or prosecute any alcohol or drug abuse patient.[facility] HospitalIn the event this information is protected by the Federal Confidentiality of Alcohol and Drug Abuse Patient Records regulations: The Federal rules restrict any use of the information to criminally investigate or prosecute any alcohol or drug abuse patient.[facility] HospitalIn the event this information is protected by the Federal Confidentiality of Alcohol and Drug Abuse Patient Records regulations: The Federal rules restrict any use of the information to criminally investigate or prosecute any alcohol or drug abuse patient.[facility] HospitalIn the event this information is protected by the Federal Confidentiality of Alcohol and Drug Abuse Patient Records regulations: The Federal rules restrict any use of the information to criminally investigate or prosecute any alcohol or drug abuse patient.[facility] HospitalIn the event this information is protected by the Federal Confidentiality of Alcohol and Drug Abuse Patient Records regulations: The Federal rules restrict any use of the information to criminally investigate or prosecute any alcohol or drug abuse patient.[facility] HospitalIn the event this information is protected by the Federal Confidentiality of Alcohol and Drug Abuse Patient Records regulations: The Federal rules restrict any use of the information to criminally investigate or prosecute any alcohol or drug abuse patient.[facility] HospitalIn the event this information is protected by the Federal Confidentiality of Alcohol and Drug Abuse Patient Records regulations: The Federal rules restrict any use of the information to criminally investigate or prosecute any alcohol or drug abuse patient.[facility] HospitalIn the event this information is protected by the Federal Confidentiality of Alcohol and Drug Abuse Patient Records regulations: The Federal rules restrict any use of the information to criminally investigate or prosecute any alcohol or drug abuse patient.[facility] HospitalIn the event this information is protected by the Federal Confidentiality of Alcohol and Drug Abuse Patient Records regulations: The Federal rules restrict any use of the information to criminally investigate or prosecute any alcohol or drug abuse patient.[facility] HospitalIn the event this information is protected by the Federal Confidentiality of Alcohol and Drug Abuse Patient Records regulations: The Federal rules restrict any use of the information to criminally investigate or prosecute any alcohol or drug abuse patient.[facility] HospitalIn the event this information is protected by the Federal Confidentiality of Alcohol and Drug Abuse Patient Records regulations: The Federal rules restrict any use of the information to criminally investigate or prosecute any alcohol or drug abuse patient.[facility] HospitalIn the event this information is protected by the Federal Confidentiality of Alcohol and Drug Abuse Patient Records regulations: The Federal rules restrict any use of the information to criminally investigate or prosecute any alcohol or drug abuse patient.[facility] HospitalIn the event this information is protected by the Federal Confidentiality of Alcohol and Drug Abuse Patient Records regulations: The Federal rules restrict any use of the information to criminally investigate or prosecute any alcohol or drug abuse patient.[facility] HospitalIn the event this information is protected by the Federal Confidentiality of Alcohol and Drug Abuse Patient Records regulations: The Federal rules restrict any use of the information to criminally investigate or prosecute any alcohol or drug abuse patient.[facility] HospitalIn the event this information is protected by the Federal Confidentiality of Alcohol and Drug Abuse Patient Records regulations: The Federal rules restrict any use of the information to criminally investigate or prosecute any alcohol or drug abuse patient.[facility] HospitalIn the event this information is protected by the Federal Confidentiality of Alcohol and Drug Abuse Patient Records regulations: The Federal rules restrict any use of the information to criminally investigate or prosecute any alcohol or drug abuse patient.[facility] Reason for Visit (unrecogniz ed section and content) Reason Comments Acute Visit lump on sternum x 1 week Specialty Diagnoses / Procedures Referred By Contac t Referred To Contact Internal Medicine / INTERNAL MEDICINE Diagnoses 3 month follow up Procedures 4C EST Kevin, Leda, BOOKER.[employer] [address] [place] [address] Josr Mathews MD [address] [place] [address] Referral ID Status Reason Start Date Expiration Date Visits Re quested Visits Authorized [id number] Closed 09/15/2021 12/14/2021 1 1 Reason Comments Orders Reason Comments UTI frquency of urinatio n x 2 days Specialty Diagnoses / Procedures Referred By Contac t Referred To Contact [facility] Diagnoses uti symptoms x2days Procedures EST SAME DAY Self [facility] [address] [place] [address] Referral ID Status Reason Start Date Expiration Date V isits Requested Visits Authorized [id number] Outside PCP 10/10/2021 01/08/2022 1 1 Reason Comments Recheck 3 month follow up Specialty Diagnoses / Procedures Referred By Contac t Referred To Contact Internal Medicine / INTERNAL MEDICINE Diagnoses RED SPOTS HANDS AND RT SHOULDER AND FOOT Procedures EST Josr Mcdonald MD [address] [place] [address] Josr Mathews MD [address] [place] [address] Referral ID Status Reason Start Date Expiration Date V isits Requested Visits Authorized [id number] Authorized 11/24/2020 11/24/2021 99 99 Specialty Diagnoses / Procedures Referred By Contac t Referred To Contact [facility] Diagnoses Encounter for general adult medical examination without abnormal findings mamm Procedures SCREENING MAMMOGRAPHY BI 2-VIEW BREAST INC CAD mamm Hui Lewis, SCHOOL ATHLETIC DIRECTOR.[employer] [address] [place] [address] [employer] [facility] [address] [place] [address] Referral ID Status Reason Start Date Expiration Date V isits Requested Visits Authorized [id number] Closed OON/Self Pay Override 11/02/2021 05/06/2022 1 1 Reason Comments Refill Request Reason Comments Sore Throat ST and drainage-woke up with symptoms-COVID exposure Specialty Diagnoses / Procedures Referred By Contac t Referred To Contact [facility] / [facility] Diagnoses Sore Throat - COVID exposure Procedures EST SAME DAY Alessia Lawrence APRN.[employer] [address] [place] [address] [facility] [address] [place] [address] Referral ID Status Reason Start Date Expiration Date V isits Requested Visits Authorized [id number] Pending Review 11/20/2021 02/18/2022 1 1 Reason Onset Date Comments Recheck 4 month follow u p Immunizations 01/19/2022 Flu vaccination Specialty Diagnoses / Procedures Referred By Contac t Referred To Contact Internal Medicine / INTERNAL MEDICINE Diagnoses Follow-up examination 4 month Follow up Procedures OFFICE/OUTPATIENT ESTABLISHED MOD [facility] 30-39 MIN 4C EST Josr Mathews MD [address] [place] [id number] Leda Brown APRN.[employer] [address] [place] [phone] Referral ID Status Reason Start Date Expiration Date Visits Re quested Visits Authorized [id number] Closed 01/19/2022 05/06/2022 1 1 Reason Comments Cough Cough, diarrhea, sin us, bodyaches, fever and ST x 4 days Specialty Diagnoses / Procedures Referred By Contac t Referred To Contact [facility] / [facility] Diagnoses diarrhea, sinus, bodyaches, low grade fever, cough and sore throat Procedures OFFICE/OUTPATIENT ESTABLISHED MOD [facility] 30-39 MIN EST SAME DAY Self [facility] [address] [place] [address] Referral ID Status Reason Start Date Expiration Date Visits Re quested Visits Authorized [id number] Closed 02/07/2022 05/06/2022 1 1 Reason Comments UTI Pressure since been on ATB Musculoskeletal Problem Achy all over; exposed to covid Specialty Diagnoses / Procedures Referred By Contac t Referred To Contact Family Medicine / FAMILY MEDICINE Diagnoses Encounter for general adult medical examination without abnormal findings UTI/not feeling well Procedures OFFICE/OUTPATIENT ESTABLISHED MOD [facility] 30-39 MIN 4C EST Tracy Mendes APRN.[employer] [address] [place] [phone] Tracy Mendes APRN.[employer] [address] [place] [address] Referral ID Status Reason Start Date Expiration Date Visits Re quested Visits Authorized [id number] Closed 02/14/2022 05/06/2022 1 1 Reason Comments Results Reason Comments Fax Request Reason Comments URI Started with sinus d rainage last week on Sunday. Cough and congestion. Moved into chest congestion. Specialty Diagnoses / Procedures Referred By Contac t Referred To Contact Internal Medicine / INTERNAL MEDICINE Diagnoses Sinus congestion Cough No energy sinus congestion and cough, no energy Procedures OFFICE/OUTPATIENT ESTABLISHED MOD [facility] 30-39 MIN 4C EST Self Older, Leda, SCHOOL ATHLETIC DIRECTOR.[employer] [address] [place] [address] Referral ID Status Reason Start Date Expiration Date Visits Re quested Visits Authorized [id number] Closed 04/17/2022 05/06/2022 1 1 Reason Onset Date Comments Refill Request 06/08/2022 Reason Comments Patient Request Reason Comments Insurance Authorization Reason Comments Recheck Elevated BP and BS, headaches Specialty Diagnoses / Procedures Referred By Contac t Referred To Contact Internal Medicine / INTERNAL MEDICINE Diagnoses BP (high blood pressure) high BP Procedures OFFICE/OUTPATIENT ESTABLISHED MOD [facility] 30-39 MIN 4C EST Self 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, 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, 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[employer] [address] [place] [address] Referral ID Status Reason Start Date Expiration Date Visits Re quested Visits Authorized [id number] Closed 06/26/2022 05/06/2023 1 1 Reason Comments Same Day Appointment sinus pressure, con gestion,fever chills,body aches,cough,nausea x since Sunday Specialty Diagnoses / Procedures Referred By Contac t Referred To Contact Internal Medicine / INTERNAL MEDICINE Diagnoses Cough Fever Sinus pressure sinus pressure, congestion, cough, fever Procedures OFFICE/OUTPATIENT ESTABLISHED MOD [facility] 30-39 MIN 4C EST Josr Mathews MD [address] [place] [address] Josr Mathews MD [address] [place] [address] Referral ID Status Reason Start Date Expiration Date Visits Re quested Visits Authorized [id number] Closed 07/17/2022 05/06/2023 1 1 Reason Comments patient update/illness persisting Reason Comments Results Reason Comments New Patient Reason Comments Faxed cardiology referral [facility] Reason Comments Recheck Follow up, discuss T hyroid Specialty Diagnoses / Procedures Referred By Contac t Referred To Contact Internal Medicine / INTERNAL MEDICINE Diagnoses Thyroid condition discuss possible thyroid issues Procedures OFFICE/OUTPATIENT ESTABLISHED MOD [facility] 30-39 MIN 4C EST Josr Mathews MD [address] [place] [address] Leda Brown APRN.[facility] [address] [place] [id number] Referral ID Status Reason Start Date Expiration Date Visits Re quested Visits Authorized [id number] Closed 08/17/2022 05/06/2023 1 1 Reason Comments Head Congestion Head congestion, cou gh, sinus pain, headaches x 3 days Specialty Diagnoses / Procedures Referred By Contac t Referred To Contact Internal Medicine / INTERNAL MEDICINE Diagnoses Nasal congestion nasal congestion, sinus pressure, drainage Procedures OFFICE/OUTPATIENT ESTABLISHED MOD [facility] 30-39 MIN 4C EST Leda Brown SCHOOL ATHLETIC DIRECTOR.[employer] [address] [place] [address] Leda Brown APRN.[employer] [address] [place] [address] Referral ID Status Reason Start Date Expiration Date Visits Re quested Visits Authorized [id number] Closed 09/04/2022 05/06/2023 1 1 Reason Comments Recheck 2 week BP follow up Specialty Diagnoses / Procedures Referred By Contac t Referred To Contact Internal Medicine / INTERNAL MEDICINE Diagnoses Follow-up exam BP follow up Procedures OFFICE/OUTPATIENT ESTABLISHED MOD [facility] 30-39 MIN 4C EST Josr Mathews MD [address] [place] [address] Leda Brown APRN.[employer] [address] [place] [phone] Referral ID Status Reason Start Date Expiration Date Visits Re quested Visits Authorized [id number] Closed 09/14/2022 05/06/2023 1 1 Reason Comments Well Woman Reason Comments rash/sore on right ankle Rash and lump o n right ankle x 1 month-worse last 2 days Reason Comments Sinus Problem sinus pressure, drai nage, headache and low grade fever x 1 week Reason Comments Recheck 3 month follow up Specialty Diagnoses / Procedures Referred By Contac t Referred To Contact Internal Medicine / INTERNAL MEDICINE Diagnoses Follow-up examination 3 month follow up Procedures OFFICE/OUTPATIENT ESTABLISHED MOD MDM 30-39 MIN 4C EST Josr Mathews MD [address] [phone] Leda Brown APRN.[employer] [address] [phone] Referral ID Status Reason Start Date Expiration Date V isits Requested Visits Authorized [id number] Authorized 12/11/2022 05/06/2023 2 2 Reason Comments Cellulitis Update Reason Comments Recheck Follow up cellulitis Specialty Diagnoses / Procedures Referred By Contac t Referred To Contact Internal Medicine / INTERNAL MEDICINE Diagnoses Follow-up exam follow up - cellulitis Procedures OFFICE/OUTPATIENT ESTABLISHED MOD MDM 30-39 MIN 4C EST Self Leda Brown APRN.[employer]IR[employer] [address] [phone] Referral ID Status Reason Start Date Expiration Date Visits Re quested Visits Authorized [id number] Closed 12/20/2022 05/06/2023 1 1 Specialty Diagnoses / Procedures Referred By Contac t Referred To Contact Internal Medicine / [facility] Diagnoses FEELING OF NEEDING TO URINATE AND THEN UNABLE TO GET MUCH OUT, ALSO HAVING A LOW GRADE 100.4 FEVER - PATIENT HAD A HEART CATH AND 2 STENTS PLACED ON 12/27/22 Procedures EST SAME DAY Self [facility] [address] [phone] Referral ID Status Reason Start Date Expiration Date V isits Requested Visits Authorized [id number] Outside PCP 12/31/2022 03/01/2023 1 1 Reason Comments Recheck ER follow up, AFIB Specialty Diagnoses / Procedures Referred By Abeba moe Referred To Contact Internal Medicine / INTERNAL MEDICINE Diagnoses Follow-up exam 6 week follow up Procedures OFFICE/OUTPATIENT ESTABLISHED MOD MDM 30-39 MIN 4C EST Self Leda Brown APRN.[employer]IR[employer] [address] [place] [address] Referral ID Status Reason Start Date Expiration Date Visits Re quested Visits Authorized [id number] Closed 02/08/2023 06/06/2023 1 1 Reason Comments Radiology US Specialty Diagnoses / Procedures Referred By Abeba moe Referred To Contact US IMAGING Diagnoses Liver fibrosis Procedures US ABD RIGHT UPPER QUADRANT US ABDOMINAL REAL TIME W/IMAGE LIMITED Leda Brown, SCHOOL ATHLETIC DIRECTOR.GIR[employer] COACH [address] [place] [address] [place] [address] Referral ID Status Reason Start Date Expiration Date V isits Requested Visits Authorized [id number] Closed Auto-Generate d Referral 09/21/2022 05/06/2023 1 1 Reason Comments Same Day Appointment sick not feeling we ll, sore throat, ear pain, temp this weekend,coughing Reason Comments Follow Up Hypertension and thy roid Reason Comments Flu Like Symptoms Nausea, low fever, b odyaches x this AM, exposure to Covid and Flu Care Teams (unrecognized sec tion and content) Leisure Studies Professor Relationship Specialty Start Date End Date Josr Mathews MD [address] [place], [place] [id number] PCP - General Internal Medicine 02/19/19 Leisure Studies Professor Relationship Specialty Start Date End Date Josr Mathews MD [address] [place], [place] [id number] PCP - General Internal Medicine 02/19/19 Leisure Studies Professor Relationship Specialty Start Date End Date Josr Mathews MD [address] [place], [place] [id number] PCP - General Internal Medicine 02/19/19 Leisure Studies Professor Relationship Specialty Start Date End Date Josr Mathews MD [address] [place] [address] PCP - General Internal Medicine 02/19/19 Leisure Studies Professor Relationship Specialty Start Date End Date Josr Mathews MD [address] [place] [address] PCP - General Internal Medicine 02/19/19 Leisure Studies Professor Relationship Specialty Start Date End Date Josr Mathews MD [address] [place] [address] PCP - General Internal Medicine 02/19/19 Leisure Studies Professor Relationship Specialty Start Date End Date Josr Mathews MD [address] [place] [address] PCP - General Internal Medicine 02/19/19 Leisure Studies Professor Relationship Specialty Start Date End Date Josr Mathews MD [address] [place] [address] PCP - General Internal Medicine 02/19/19 Leisure Studies Professor Relationship Specialty Start Date End Date Josr Mathews MD [address] [place] [address] PCP - General Internal Medicine 02/19/19 Leisure Studies Professor Relationship Specialty Start Date End Date Josr Mathews MD [address] [place] [address] PCP - General Internal Medicine 02/19/19 Leisure Studies Professor Relationship Specialty Start Date End Date Josr Mathews MD [address] [place] [address] PCP - General Internal Medicine 02/19/19 Leisure Studies Professor Relationship Specialty Start Date End Date Josr Mathews MD [address] [place] [address] PCP - General Internal Medicine 02/19/19 Leisure Studies Professor Relationship Specialty Start Date End Date Josr Mathews MD [address] [place] [address] PCP - General Internal Medicine 02/19/19 Leisure Studies Professor Relationship Specialty Start Date End Date Josr Mathews MD [address] [place] [address] PCP - General Internal Medicine 02/19/19 Leisure Studies Professor Relationship Specialty Start Date End Date Josr Mathews MD [address] [place] [address] PCP - General Internal Medicine 02/19/19 Leisure Studies Professor Relationship Specialty Start Date End Date Josr Mathews MD [address] [place] [address] PCP - General Internal Medicine 02/19/19 Leisure Studies Professor Relationship Specialty Start Date End Date Josr Mathews MD [address] [place] [address] PCP - General Internal Medicine 02/19/19 Leisure Studies Professor Relationship Specialty Start Date End Date Josr Mathews MD [address] [place] [address] PCP - General Internal Medicine 02/19/19 Leisure Studies Professor Relationship Specialty Start Date End Date Josr Mathews MD [address] [place] [address] PCP - General Internal Medicine 02/19/19 Leisure Studies Professor Relationship Specialty Start Date End Date Josr Mathews MD [address] [place] [address] PCP - General Internal Medicine 02/19/19 Leisure Studies Professor Relationship Specialty Start Date End Date Josr Mathews MD [address] [place] [address] PCP - General Internal Medicine 02/19/19 Leisure Studies Professor Relationship Specialty Start Date End Date Josr Mathews MD [address] [facility] [place] [address] PCP - General Internal Medicine 02/19/19 Leisure Studies Professor Relationship Specialty Start Date End Date Josr Mathews MD [address] [facility] [place] [address] PCP - General Internal Medicine 02/19/19 Leisure Studies Professor Relationship Specialty Start Date End Date Josr Mathews MD [address] [facility] [place] [address] PCP - General Internal Medicine 02/19/19 Leisure Studies Professor Relationship Specialty Start Date End Date Josr Mathews MD [address] [facility] [place] [address] PCP - General Internal Medicine 02/19/19 Leisure Studies Professor Relationship Specialty Start Date End Date Josr Mathews MD [address] [facility] [place] [address] PCP - General Internal Medicine 02/19/19 Leisure Studies Professor Relationship Specialty Start Date End Date Josr Mathews MD [address] [facility] [place] [address] PCP - General Internal Medicine 02/19/19 Leisure Studies Professor Relationship Specialty Start Date End Date Josr Mathews MD [address] [place] [address] PCP - General Internal Medicine 02/19/19 Leisure Studies Professor Relationship Specialty Start Date End Date Josr Mathews MD [address] [place] [address] PCP - General Internal Medicine 02/19/19 Leisure Studies Professor Relationship Specialty Start Date End Date Josr Mathews MD [address] [facility] [place] [address] PCP - General Internal Medicine 02/19/19 Leisure Studies Professor Relationship Specialty Start Date End Date Josr Mathews MD [address] [facility] [place] [address] PCP - General Internal Medicine 02/19/19 Leisure Studies Professor Relationship Specialty Start Date End Date Josr Mathews MD [address] [facility] [place] [address] PCP - General Internal Medicine 02/19/19 Leisure Studies Professor Relationship Specialty Start Date End Date Josr Mathews MD [address] [facility] [place] [address] PCP - General Internal Medicine 02/19/19 Leisure Studies Professor Relationship Specialty Start Date End Date Josr Mathews MD [address] [facility] [place] [address] PCP - General Internal Medicine 02/19/19 Leisure Studies Professor Relationship Specialty Start Date End Date Josr Mathews MD [address] [facility] [place] [address] PCP - General Internal Medicine 02/19/19 Leisure Studies Professor Relationship Specialty Start Date End Date Josr Mathews MD [address] [facility] [place] [address] PCP - General Internal Medicine 02/19/19 Leisure Studies Professor Relationship Specialty Start Date End Date Josr Mathews MD [address] [facility] [place] [address] PCP - General Internal Medicine 02/19/19 Leisure Studies Professor Relationship Specialty Start Date End Date Josr Mathews MD [address] [facility] [place] [address] PCP - General Internal Medicine 02/19/19 Leisure Studies Professor Relationship Specialty Start Date End Date Josr Mathews MD [address] [facility] [place] [address] PCP - General Internal Medicine 02/19/19 Leisure Studies Professor Relationship Specialty Start Date End Date Josr Mathews MD [address] [facility], [place] [address] PCP - General Internal Medicine 02/19/19 Leisure Studies Professor Relationship Specialty Start Date End Date Josr Mathews MD [address] [facility], [place] [address] PCP - General Internal Medicine 02/19/19 Leisure Studies Professor Relationship Specialty Start Date End Date Josr Mathews MD [address] [facility], [place] [address] PCP - General Internal Medicine 02/19/19 FOR RECORDS PERTAINING TO PATIENTS WHO ARE OR HAVE BEEN ENROLLED IN A CHEMICAL DEPENDENCY/SUBSTANCEABUSE PROGRAM, SOME INFORMATION MAY BE OMITTED. This clinical summary was aggregated from multiple sources. Caution should be exercised in using it in the provision of clinical care. This summary normalizes information from multiple sources, and as a consequence, information in this document may materially change the coding, format and clinical context of patient data. In addition, data may be omitted in some cases. CLINICAL DECISIONS SHOULD BE BASED ON THE PRIMARY CLINICAL RECORDS. [email or web address] provides no warranty or guarantee of the accuracy or completeness of information in this document.
[2023-06-13 10:35] LABS: ALB/GLOB Ratio 0.8 RATIO (0.9-2.4); AST(SGOT) 73 U/L (15-37); Alanine Aminotransfer ALT/SGPT 91 U/L (13-56); Albumin, Serum 3.4 g/dL (3.2-5.0); Alkaline Phosphatase 126 U/L (45-117); Anion Gap 4 (5-15); BUN 11 mg/dL (7-18); BUN/Creat Ratio 19.6 RATIO (10-20); Calcium,Total 9.1 mg/dL (8.5-10.1); Chloride 106 mmol/L (98-107); Cholesterol 149 mg/dL (200); Creatinine, Serum 0.56 mg/dL (0.55-1.02); EST Glomerular Filtration Rate 118 mL/min (>60); Est Glom Filt Rate - Afr Amer 143 mL/min (>60); Globulin 4.1 g/dL (2.2-4.2); Glucose 135 mg/dL (74-106); High Density Lipoprotein 45 mg/dL; Potassium 4.4 mmol/L (3.5-5.1); Protein, Total 7.5 g/dL (6.4-8.2); Sodium Level 134 mmol/L (136-145); Triglycerides 91 mg/dL; Very Low Density Lipoprotein 18 mg/dL (5-40)
== END | disposition home or self-care (01) ==
PROVIDERS: PCP Internal Medicine; Referring Provider Internal Medicine Cardiovascular Disease; Visit Provider Internal Medicine Cardiovascular Disease
DX: J32.9 Chronic sinusitis, unspecified (principal); I48.0 Paroxysmal atrial fibrillation; R07.9 Chest pain, unspecified; E78.5 Hyperlipidemia, unspecified; R06.00 Dyspnea, unspecified; R00.2 Palpitations
CPT/HCPCS: 36415; 80053; 80061; 87070; 87077; 87186; 87205

== ENCOUNTER 2023-06-21 15:03 | Emergency (ER) | payer OTHER, SELFPAY ==
[2023-04-18 11:48] VITALS: BMI 32.9
[2023-06-21 15:04] VITALS: BP 151/79; PULSE 70; RESP 18; TEMP 36.1; O2SAT 100; BMI 32.8
--- NOTE | 2023-06-21 15:22 | US_ITS ---
EXAM: US ABDOMEN LIMITED, RIGHT UPPER QUADRANT CLINICAL INDICATION: PAIN TECHNIQUE: Real-time ultrasound of the right upper quadrant with image documentation. COMPARISON: No relevant prior studies available. FINDINGS: LIVER: The liver measures 17.3 cm in length. There is normal echotexture. No intrahepatic biliary ductal dilation. GALLBLADDER: Gallbladder wall measures 2 mm. No shadowing gallstone. No pericholecystic fluid. Negative sonographic Du''s sign. COMMON BILE DUCT: Common bile duct measures 2 mm. The proximal common bile duct is within normal limits for the patient''s age. PANCREAS: Unremarkable as visualized. No focal abnormality is demonstrated in the pancreas. No pancreatic ductal dilatation. RIGHT KIDNEY: The right kidney measures 11.9 x 4.4 x 4.9 cm. There is no hydronephrosis. No shadowing calculus. No focal lesion or perinephric collection is demonstrated. US/Gallbladder IMPRESSION: No acute findings in the right upper quadrant. Electronically Signed: Juan Ramon Kincaid MD at 16:29 EST ,
--- NOTE | 2023-06-21 15:23 | ED.VIS.GI ---
HPI HPI - GI History of Present Illness Chief Complaint: Abd Pain Detail of Chief Complaint: 57-year-old female right upper quadrant abdominal pain today with nausea. Informant: patient Abdominal Pain/Flank Pain Onset: Today Context: Gradual Onset Timing: Continuous Location: RUQ Current Severity: Moderate Maximum Severity: Moderate Worsened by: Nothing Relieved by: Nothing Nausea/Vomiting/Emesis GI Symptom: Positive for Nausea; Negative for Vomiting Onset: Today Severity: Mild Diarrhea/Melena/Hematochezia GI Symptom: Negative for Diarrhea, Melena or Hematochezia Associated Symptoms Associated Symptoms: Negative for Dysuria, Frequency, Hematuria or Urgency Narrative Narrative: 57-year-old female past medical history of CAD with 2 cardiac stents and A-fib on Eliquis. Also diabetic. Only prior abdominal pelvic surgery was a hysterectomy. Still has her gallbladder. States that she has had right upper quadrant abdominal pain with associated nausea with a low-grade temperature to 99.5. No vomiting or diarrhea. No dysuria. She has had postprandial nausea recently. Prior similar symptoms: Yes Recent Illness/Hospitalization: No PFSH PFSH Medical History Abnormal bruising Abnormal exercise tolerance test Abnormal finding on EKG Atrial fibrillation by electrocardiography Cervicalgia Chest pain Coronary artery disease COVID (~04/2023) Diabetes Dyslipidemia Dyspnea Essential hypertension Fibromyalgia Graves disease Srini's disease HSV-2 infection Interstitial lung disease Lupus Mixed connective tissue disease Palpitations Paroxysmal atrial fibrillation Raynaud disease SOB (shortness of breath) on exertion no medical history Home Medications citalopram 20 mg tablet 20 mg PO DAILY 05/15/20 [History Last Taken Unknown] fluticasone propionate 50 mcg/actuation nasal spray,suspension 2 spray NASAL DAILY 05/15/20 [History Last Taken Unknown] levalbuterol tartrate 45 mcg/actuation aerosol inhaler 15 g IH Q4H PRN PRN Shortness Of Breath 05/15/20 [History Last Taken Unknown] montelukast 10 mg tablet 10 mg PO DAILY 05/15/20 [History Last Taken Unknown] epinephrine 0.3 mg/0.3 mL injection, auto-injector 0.3 mg IM ONCE 08/04/22 [History Last Taken Unknown] triamcinolone acetonide 0.1 % topical cream 1 applic topical DAILY 08/04/22 [History Last Taken Unknown] lansoprazole 30 mg capsule,delayed release 30 mg PO DAILY 08/08/22 [History Last Taken Unknown] metformin 500 mg tablet,extended release 24 hr 1,000 mg PO BID 08/08/22 [History Last Taken 12/26/22] naproxen 500 mg tablet 500 mg PO BID PRN pain 08/08/22 [History Last Taken Unknown] nitroglycerin 0.4 mg sublingual tablet 0.4 mg sublingual Q5M PRN Cardiac/Chest Pain #15 tabs 12/27/22 [Rx Last Taken Unknown] budesonide 1 mg/2 mL suspension for nebulization (Pulmicort) 0.5 mg inhalation BID PRN sob 01/24/23 [History Last Taken Unknown] pravastatin 20 mg tablet 20 mg PO QHS #30 tabs 02/21/23 [Rx Last Taken Unknown] clopidogrel 75 mg tablet (Plavix) 75 mg PO DAILY #90 tabs 03/26/23 [Rx Last Taken Unknown] apixaban 5 mg tablet (Eliquis) 5 mg PO BID #60 tabs 04/02/23 [Rx Last Taken Unknown] benzonatate 200 mg capsule 200 mg PO TID PRN cough #20 caps 04/29/23 [Rx Last Taken Unknown] molnupiravir 200 mg capsule (EUA) (Lagevrio) 200 mg PO Q6H 04/29/23 [History Last Taken Unknown] carvedilol 25 mg tablet 25 mg PO BID #180 tabs 05/01/23 [Rx Last Taken Unknown] diltiazem HCl 120 mg capsule,extended release 24 hr 120 mg PO BID Stopping Diltiazem CD 180, changing to this. #60 caps 05/16/23 [Rx Last Taken Unknown] isosorbide mononitrate 30 mg tablet,extended release 24 hr 30 mg PO QAM #90 tabs 06/05/23 [Rx Last Taken Unknown] losartan 100 mg tablet 100 mg PO DAILY #90 tabs 06/05/23 [Rx Last Taken Unknown] Allergy/AdvReac Type Severity Reaction Status Date / Time cantaloupe Allergy Angioedema Verified 06/05/23 09:46 Sulfa (Sulfonamide Allergy Hives Verified 06/05/23 09:46 Antibiotics) levofloxacin [From Levaquin] AdvReac Intermediate Hives Verified 06/05/23 09:46 Family History Mother CAD (coronary artery disease) stents Hypertension Vertigo Pacemaker Enlarged heart Father Cancer prostate Sister Sjogrens syndrome Grandmother Heart disease Grandfather Heart disease Uncle Heart disease Enlarged heart Surgical History Hx of bilateral cataract extraction Hx of dilation and curettage Hx of hysterectomy Hx of sinus surgery Hx of tonsillectomy Stented coronary artery (~12/27/22) Social History Smoking Status: Never smoker alcohol intake: current alcohol intake frequency: holidays/special occasions only substance use type: does not use caffeine: Yes Type: coffee Number of servings: 1 ROS ROS ED ROS Narrative Right upper quadrant abdominal pain. Nausea. Subjective fever. Review of Systems ROS Unobtainable: Denies due to encephalopathy Constitutional Constitutional ED: Reports fever(s); Denies chills ENT ENT ED: Denies ear pain or rhinorrhea Cardiovascular Cardiovascular: Denies chest pain or palpitations Respiratory/Chest Respiratory/Chest: Denies cough or dyspnea Gastrointestinal Gastrointestinal: Reports abdominal pain and nausea; Denies constipation, diarrhea, melena or vomiting Genitourinary Genitourinary ED: Denies dysuria or hematuria Musculoskeletal Musculoskeletal: Denies arthralgias or back pain Integumentary Denies abscess Neurologic Neurologic: Denies headache(s) Psychiatric Psychiatric: Denies anxiety Endocrine Endocrinology: Denies polydipsia Hematologic/Lymphatic Hematologic/Lymphatic: Denies easy bleeding Allergic/Immunologic Allergic/Immunologic ED: Denies mouth swelling, tongue swelling or urticaria EXAM Physical Exam Narrative Exam Narrative: Well-appearing 57-year-old female. Vital signs stable afebrile. HEENT exam unremarkable. Neck nontender no lymphadenopathy. Lungs clear to auscultation bilaterally. Heart regular rhythm rate about 70 no murmur. Abdomen soft nondistended normal bowel sounds. No peritoneal signs. She does have right upper quadrant abdominal pain. Otherwise nontender. No obstruction. No distention. No mass. Moving all 4 extremities. Calves are nontender without edema or cords. Neurologically she is awake and alert with no focal motor deficits. Back nontender. Const Vital Signs: 06/21/23 15:04 06/21/23 17:00 Temperature 97 F L Temperature Source Temporal Pulse Rate 70 74 Respiratory Rate 18 14 Blood Pressure 151/79 H 143/79 H Blood Pressure Mean 103 100 Pulse Ox 100 Oxygen Delivery Method Room Air Positive well nourished and well developed; Negative for cachectic, contractures or unkempt General Appearance ED: well developed and NAD; Negative for unkempt, cachectic, contractures or pallor Nutritional Appearance: Negative for cachectic HEENT Reports moist mucous membranes; Denies dry mucous membranes normocephalic and atraumatic; Negative for trauma or tenderness Mouth ED: No dry mucous membranes Mouth: No dry mucous membranes Eyes PERRL and EOMs intact bilaterally General Eye ED: Negative for pale conjunctiva or scleral icterus Neck no lymphadenopathy, supple and no JVD General: Negative for tenderness Carotids: Negative for other Lymph Lymphatic: Negative for other Resp normal respiratory effort and clear to auscultation bilaterally Effort and Inspection: Negative for respiratory distress Auscultation: Negative for rales, rhonchi, wheezes or diminished lung sounds Cardio regular rate, regular rhythm, S1 normal heart sound, S2 normal heart sound and no murmurs Rate: Negative for bradycardia or tachycardic Rhythm: Negative for abnormal rhythm GI non-distended and no masses; Negative for non-tender GI Narrative: Right upper quadrant tenderness only. Left side and right lower quadrant completely nontender. No mass. No obstruction. No distention. Inspection: Negative for abdominal distention Auscultation: Negative for normoactive bowel sounds Palpation: soft, tender and rebound tenderness present; Negative for guarding, rigid, hepatomegaly, splenomegaly, hernia, mass or pulsatile mass Back/Spine no CVA tenderness General Back: Negative for CVA tenderness Cervical Spine: Negative for cervical spine tenderness Thoracic Spine / Upper Back: Negative for thoracic spinal tenderness Lumbar Spine / Lower Back: Negative for lumbar spinal tenderness Coccyx: Negative for other Extremity full ROM General Extremety ED: Negative for edema, tenderness or other findings General Extremity: Negative for edema or other findings Neuro CN's II-XII intact bilaterally and moves all extremities Sensorium / Orientation: alert, oriented to person, oriented to place and oriented to time; Negative for orientation impaired, confused, lethargic or stuporous Motor Exam: strength 5/5 throughout Psych mental status grossly normal and thought process normal Appearance: Negative for unkempt Attitude: No agitated Mood & Affect: Negative for depressed, anxious or tearful Skin no wounds General Skin Exam: Negative for jaundice or pallor Lesions: no lesions Rashes: no rashes Trauma: Negative for abrasion Nails: Negative for discolored MDM MDM MDM Narrative Medical decision making narrative: 57-year-old female with right upper quadrant abdominal pain and postprandial nausea. Gallbladder disease, cholecystitis or cholelithiasis are on the differential versus other etiologies. Labs and ultrasound being obtained she did not anything for pain or nausea at this time. Repeat exam patient doing well at 5:45 PM. Awaiting CAT scan results. She and I went over her other test results. Abdomen is benign at this time. There is no peritoneal signs. Repeat exam at 615 patient doing well. I explained to her CAT scan and ultrasound are unremarkable we do not have a specific cause for her pain. She will be discharged home with outpatient follow-up. History & Record Review Discussion w/independent historian: Patient Additional record(s) reviewed:: Prior inpatient record, Prior outpatient record, Prior ED visit and Prior labs Lab Data Attestation: I reviewed the patient's lab results. Lab results narrative: CBC shows a white count 3.8. H&H 8.9 and 28 which is her baseline chronic anemia. Platelet count 175. Electrolytes show sodium 134. Gap 4. Liver enzymes normal. Lipase 79. UA negative. Gallbladder ultrasound unremarkable. As read by the radiologist. CAT scan abdomen no acute abnormality as read by the radiologist and reviewed by me. Labs: Laboratory Results - last 24 hr 06/21/23 15:40 WBC 3.8 L RBC 3.51 L Hgb 8.9 L Hct 28.6 L MCV 81.5 MCH 25.4 L MCHC 31.1 L RDW Std Deviation 47.7 H RDW Coeff of Ted 16.0 H Plt Count 175 MPV 11.5 Immature Gran % (Auto) 0.300 Neut % (Auto) 58.5 Lymph % (Auto) 29.1 Hitchcock % (Auto) 9.9 Eos % (Auto) 1.9 Baso % (Auto) 0.3 Absolute Neuts (auto) 2.2 Absolute Lymphs (auto) 1.09 Nucleated RBC % 0 Sodium 134 L Potassium 4.2 Chloride 104 Carbon Dioxide 26.0 Anion Gap 4 L BUN 8 Creatinine 0.60 Estim Creat Clear Calc 106.37 Est GFR (MDRD) Af Amer 133 Est GFR (MDRD) Non-Af 110 BUN/Creatinine Ratio 13.4 Glucose 80 Calcium 9.0 Total Bilirubin 0.50 AST 64 H ALT 74 H Alkaline Phosphatase 117 Total Protein 7.5 Albumin 3.4 Globulin 4.1 Albumin/Globulin Ratio 0.8 L Lipase 79 H Urine Color Yellow Urine Clarity Clear Urine pH 7.0 Ur Specific [place] 1.005 Urine Protein 15 H Urine Glucose (UA) Normal Urine Ketones Negative Urine Occult Blood Negative Urine Nitrite Negative Urine Bilirubin Negative Urine Urobilinogen Normal Ur Leukocyte Esterase Negative Urine RBC 0 SEEN Urine WBC 0 SEEN Ur Squamous Epith Cells 0-5 SEEN Urine Bacteria 0 SEEN Urine Mucus 0 SEEN Radiography Diagnostic Testing: Clinical Impression(s) from Imaging Studies Gallbladder Ultrasound 06/21/23 15:22 IMPRESSION: No acute findings in the right upper quadrant. Electronically Signed: Juan Ramon Kincaid MD at 16:29 EST , Abdomen/Pelvis CT 06/21/23 16:55 IMPRESSION: No acute findings in the abdomen or pelvis. Electronically Signed: Juan Ramon Kincaid MD at 17:42 EST , Discharge Plan Triage Chief Complaint: Abd Pain ED Provider: Freddy Lane Dx/Rx/DC Orders Clinical Impression: Anemia, Abdominal pain Instructions: Abdominal Pain Prescriptions: No Action epinephrine 0.3 mg/0.3 mL auto-injector 0.3 mg IM ONCE Rx Instructions: as a single dose; may repeat once triamcinolone acetonide 0.1 % cream 1 applic topical DAILY naproxen 500 mg tablet 500 mg PO BID PRN (Reason: pain) budesonide [Pulmicort] 1 mg/2 mL suspension for nebulization 0.5 mg inhalation BID PRN (Reason: sob) pravastatin 20 mg tablet 20 mg PO QHS Qty: 30 4RF isosorbide mononitrate 30 mg tablet extended release 24 hr 30 mg PO QAM Qty: 90 3RF losartan 100 mg tablet 100 mg PO DAILY Qty: 90 3RF fluticasone propionate 1 SPRAY spray,suspension 2 spray NASAL DAILY citalopram 20 MG tablet 20 mg PO DAILY montelukast 10 MG tablet 10 mg PO DAILY levalbuterol tartrate 15 GM HFA aerosol inhaler 15 g IH Q4H PRN PRN (Reason: Shortness Of Breath) lansoprazole 30 mg capsule,delayed release(DR/EC) 30 mg PO DAILY metformin 500 mg tablet extended release 24 hr 1,000 mg PO BID nitroglycerin 0.4 mg Tablet, Sublingual 0.4 mg sublingual Q5M PRN (Reason: Cardiac/Chest Pain) Qty: 15 6RF Lagevrio (EUA) 200 mg capsule 200 mg PO Q6H Patient Comments: for 5 days starting 04/28/23 benzonatate 200 mg capsule 200 mg PO TID PRN (Reason: cough) Qty: 20 0RF clopidogrel [Plavix] 75 mg tablet 75 mg PO DAILY Qty: 90 3RF Eliquis 5 mg tablet 5 mg PO BID Qty: 60 11RF carvedilol 25 mg tablet 25 mg PO BID Qty: 180 3RF Rx Instructions: must administer with a meal/food. diltiazem HCl 120 mg capsule,extended release 24hr 120 mg PO BID Qty: 60 11RF Primary Care Provider: SHAHRIAR MIGUEL Referrals: Opal Bernal MD [Med Staff - Tester Operator Helper] - 3-5 Days Activity Restrictions/Additional Instructions: Your labs just showed acute on chronic anemia with your hemoglobin 8.9. Your CAT scan and ultrasound were unremarkable. We do not have a specific cause for your pain. Follow-up with your primary care physician to be reevaluated. You should also have another blood count done to ensure your blood counts not getting lower. Continue your current medications. If you notice any black or bloody stools you need to be reevaluated and come back to the emergency department. Disposition Disposition: Home, Self Care
[2023-06-21 15:53] LABS: Bacteria 0 SEEN /hpf (None Seen); Mucous, Urine 0 SEEN /hpf (<or=2+); Red Blood Cells-Urine 0 SEEN /hpf (0-5); White Blood Cells 0 SEEN /hpf (0-5)
[2023-06-21 15:57] LABS: Absolute Lymphocyte Count 1.09 X10^3/uL (0.83-4.51); Absolute Neutrophil Count 2.2 X10^3/uL (2.0-7.7); Basophil# 0.01 X10^3/uL; Basophil% 0.3 % (0-1); Eosinophil# 0.07 X10^3/uL; Eosinophils% 1.9 % (0-5); Hematocrit 28.6 % (37-47); Hemoglobin 8.9 g/dL (12.0-15.0); Lymphocyte # 1.09 X10^3/ul (0.83-4.51); Lymphocyte % 29.1 % (19-41); Mean Corp Hgb Conc 31.1 g/dL (32-36); Mean Corpuscular Hgb 25.4 pg (27.0-32.0); Mean Corpuscular Volume 81.5 fL (81-99); Mean Platelet Vol. 11.5 fl (6.2-12.0); Monocyte# 0.37 X10^3/uL; Monocyte% 9.9 % (0-10); NRBC Flagged by Analyzer 0 % (0-5); Neutrophil % 58.5 % (47-70); Platelet Count 175 K/mm3 (150-450); RBC Distribution Width SD 47.7 fl (35.1-43.9); Red Blood Count 3.51 M/mm3 (4.2-5.4); White Blood Count 3.8 K/mm3 (4.4-11.0)
[2023-06-21 15:58] LABS: Color, Urine Yellow (Yellow); Glucose, Dipstick Normal (Normal); Ketone-Dipstick Negative (Negative); Leukocyte Esterase-Dipstick Negative /ul (Negative); Nitrite-Dipstick Negative (Negative); Occult Blood-Urine Negative /ul (Negative); Protein-Dipstick 15 mg/dl (Negative); Specific Gravity, Urine 1.005 (1.002-1.030); Urine Bilirubin Dipstick Negative (Negative); Urine Clarity Clear (Clear); Urine Urobilinogen Normal (Normal)
[2023-06-21 16:15] LABS: Squamous Epithelial Cells - UA 0-5 SEEN /hpf (5-10)
[2023-06-21 16:17] LABS: ALB/GLOB Ratio 0.8 RATIO (0.9-2.4); AST(SGOT) 64 U/L (15-37); Alanine Aminotransfer ALT/SGPT 74 U/L (13-56); Albumin, Serum 3.4 g/dL (3.2-5.0); Alkaline Phosphatase 117 U/L (45-117); Anion Gap 4 (5-15); BUN 8 mg/dL (7-18); BUN/Creat Ratio 13.4 RATIO (10-20); Chloride 104 mmol/L (98-107); EST Glomerular Filtration Rate 110 mL/min (>60); Est Glom Filt Rate - Afr Amer 133 mL/min (>60); Estimated Creatinine Clearance 106.37 ml/min; Globulin 4.1 g/dL (2.2-4.2); Glucose 80 mg/dL (74-106); Lipase 79 U/L (13-75); Potassium 4.2 mmol/L (3.5-5.1); Protein, Total 7.5 g/dL (6.4-8.2); Sodium Level 134 mmol/L (136-145)
--- NOTE | 2023-06-21 16:55 | CT_ITS ---
EXAM: CT ABDOMEN AND PELVIS WITH INTRAVENOUS CONTRAST CLINICAL INDICATION: r-sided abd pain. US gb negative TECHNIQUE: Helically acquired images were obtained of the abdomen and pelvis with intravenous contrast. This CT exam was performed using one or more of the following dose reduction techniques: automated exposure control, adjustment of the mA and/or kV according to patient size, and/or use of iterative reconstruction technique. CONTRAST: IV 100mL [id number] COMPARISON: 12/07/2022 FINDINGS: LOWER THORAX: Unremarkable. Lung bases are clear. No cardiomegaly. No significant pericardial effusion. ABDOMEN: LIVER: Unremarkable. Homogeneous. No focal mass. GALLBLADDER AND BILE DUCTS: There is a small calcification which may be within the gallbladder wall. There is no inflammation identified. No intra- or extrahepatic biliary ductal dilation. PANCREAS: Unremarkable. No focal cystic or solid mass. SPLEEN: Unremarkable. Normal size without focal cystic or solid mass. ADRENALS: Unremarkable. No nodules. KIDNEYS AND URETERS: Unremarkable. Normal renal size and position. No hydronephrosis. STOMACH AND BOWEL: Unremarkable. No stomach or bowel distention. No focal inflammatory change. PELVIS: APPENDIX: No evidence of acute appendicitis. BLADDER: Unremarkable. REPRODUCTIVE: Patient is status post hysterectomy. ABDOMEN and PELVIS: INTRAPERITONEAL SPACE: Unremarkable. No ascites or other fluid collection. No free air. BONES/JOINTS: Unremarkable. No suspicious lytic or blastic abnormality. SOFT TISSUES: Unremarkable. No discrete abdominal or pelvic wall hernia. VASCULATURE: Unremarkable. Abdominal aorta is non-dilated. LYMPH NODES: Unremarkable. No enlarged lymph nodes. CT/Abdomen/Pelvis W IV Cont ONLY IMPRESSION: No acute findings in the abdomen or pelvis. Electronically Signed: Juan Ramon Kincaid MD at 17:42 EST ,
[2023-06-21 17:00] VITALS: BP 143/79; PULSE 74; RESP 14
[2023-06-21 18:34] VITALS: BP 146/75; PULSE 78; RESP 16; TEMP 36.9; O2SAT 98
--- OUTSIDE RECORDS SUMMARY | 2023-06-21 21:04 | XMS RPT_ITS | CCD ---
Author Name Unknown Address [address] [place] [address] Organization [facility] Care Team Providers Care Oiler Bander Name Role Phone Unavailable Primary Care Provider [...] Primary Care Unavailable OLDER, LEDA Attending Unavailable [facility] Primary Care Unavailable CHHAYA CROWE Attending Unavailable GANTA, JOSR Primary Care Unavailable GANTA, JOSR Primary Care Unavailable OLDER, LEDA Attending Unavailable [facility], JOSR Primary Care Unavailable Allergies Allergy Classification Reported Allergen(s) Allergy Type Date of Onset Reaction(s) Facility (20 sources) cantaloupe allergenic extract; Translations: [CANTALOUPE] Drug Allergy 01-22-2019 Angioedema [facility] Work Phone: (20 sources) levoFLOXacin; Translations: [LEVOFLOXACIN] Drug Allergy 04-12-2021 Rash [facility] (20 sources) Sulfonamides (Antibiotic); Translations: [SULFA (SULFONAMIDE ANTIBIOTICS)] Drug Allergy 01-22-2019 Hives [facility] (1 source) levoFLOXacin Drug Allergy [facility] (1 source) Sulfonamides (Antibiotic) Drug allergy (disorder) [facility] Medications Current Medications Medication Drug Class(es) [...] 97.9 [degF] Rubi Araya PA-C Work Phone: [facility] 04-16-2023 15:33-0500 Body weight 84.46 kg Rubi Athy PA-C Work Phone: [facility] 04-16-2023 15:33-0500 Diastolic blood pressure 83 mm[Hg] Rubi Athy PA-C Work Phone: [facility] 04-16-2023 15:33-0500 Heart rate 77 /min Rubi Athy PA-C Work Phone: [facility] 04-16-2023 15:33-0500 Respiratory rate 18 /min Rubi Athy PA-C Work Phone: [facility] 04-16-2023 15:33-0500 SaO2% (BldA) [Mass fraction] 98 % Rubi Athy PA-C Work Phone: [facility] 04-16-2023 15:33-0500 Systolic blood pressure 151 mm[Hg] Rubi Athy PA-C Work Phone: [facility] 03-28-2023 15:50-0500 Diastolic blood pressure 70 mm[Hg] Leda Older VOCATIONAL TRAINING INSTRUCTOR.TONGUE AND GROOVE MACHINE SETTER Work Phone: [facility] 03-28-2023 15:50-0500 Systolic blood pressure 130 mm[Hg] Leda Older VOCATIONAL TRAINING INSTRUCTOR.TONGUE AND GROOVE MACHINE SETTER Work Phone: [facility] 03-28-2023 15:35-0500 Body weight 84.82 kg Leda Older VOCATIONAL TRAINING INSTRUCTOR.TONGUE AND GROOVE MACHINE SETTER Work Phone: [facility] 03-28-2023 15:35-0500 Heart rate 74 /min Leda Older VOCATIONAL TRAINING INSTRUCTOR.TONGUE AND GROOVE MACHINE SETTER Work Phone: [facility] 03-28-2023 15:35-0500 Respiratory rate 16 /min Leda Older VOCATIONAL TRAINING INSTRUCTOR.TONGUE AND GROOVE MACHINE SETTER Work Phone: [facility] 03-28-2023 15:35-0500 SaO2% (BldA) [Mass fraction] 99 % Leda Older VOCATIONAL TRAINING INSTRUCTOR.TONGUE AND GROOVE MACHINE SETTER Work Phone: [facility] 03-12-2023 13:06-0500 Body height 161.3 cm Alexandre Campa PA-C Work Phone: [facility] 03-12-2023 13:06-0500 Body temperature 98.01 [degF] Alexandre Denbow PA-C Work Phone: [facility] 03-12-2023 13:06-0500 Body weight 83.01 kg Alexandre Denbow PA-C Work Phone: [facility] 03-12-2023 13:06-0500 Diastolic blood pressure 70 mm[Hg] Alexandre Denbow PA-C Work Phone: [facility] 03-12-2023 13:06-0500 Heart rate 78 /min Alexandre Denbow PA-C Work Phone: [facility] 03-12-2023 13:06-0500 Respiratory rate 12 /min Alexandre Denbow PA-C Work Phone: [facility] 03-12-2023 13:06-0500 SaO2% (BldA) [Mass fraction] 99 % Alexandre Denbow PA-C Work Phone: [facility] 03-12-2023 13:06-0500 Systolic blood pressure 138 mm[Hg] Alexandre Denbow PA-C Work Phone: [facility] 02-28-2023 10:44-0400 Body weight 83.92 kg Leda Older VOCATIONAL TRAINING INSTRUCTOR.TONGUE AND GROOVE MACHINE SETTER Work Phone: [facility] 02-28-2023 10:44-0400 Diastolic blood pressure 82 mm[Hg] Leda Older VOCATIONAL TRAINING INSTRUCTOR.TONGUE AND GROOVE MACHINE SETTER Work Phone: [facility] 02-28-2023 10:44-0400 Heart rate 80 /min Leda Older VOCATIONAL TRAINING INSTRUCTOR.TONGUE AND GROOVE MACHINE SETTER Work Phone: [facility] 02-28-2023 10:44-0400 Respiratory rate 16 /min Leda Older VOCATIONAL TRAINING INSTRUCTOR.TONGUE AND GROOVE MACHINE SETTER Work Phone: [facility] 02-28-2023 10:44-0400 SaO2% (BldA) [Mass fraction] 99 % Leda Older VOCATIONAL TRAINING INSTRUCTOR.TONGUE AND GROOVE MACHINE SETTER Work Phone: [facility] 02-28-2023 10:44-0400 Systolic blood pressure 142 mm[Hg] Leda Older VOCATIONAL TRAINING INSTRUCTOR.TONGUE AND GROOVE MACHINE SETTER Work Phone: [facility] 12-20-2022 17:26-0400 Body temperature 98.71 [degF] Leda Older VOCATIONAL TRAINING INSTRUCTOR.TONGUE AND GROOVE MACHINE SETTER Work Phone: [facility] 12-20-2022 17:26-0400 Diastolic blood pressure 74 mm[Hg] Leda Older VOCATIONAL TRAINING INSTRUCTOR.TONGUE AND GROOVE MACHINE SETTER Work Phone: [facility] 12-20-2022 17:26-0400 Heart rate 84 /min Leda Older VOCATIONAL TRAINING INSTRUCTOR.TONGUE AND GROOVE MACHINE SETTER Work Phone: [facility] 12-20-2022 17:26-0400 Respiratory rate 16 /min Leda Older VOCATIONAL TRAINING INSTRUCTOR.TONGUE AND GROOVE MACHINE SETTER Work Phone: [facility] 12-20-2022 17:26-0400 SaO2% (BldA) [Mass fraction] 98 % Leda Older VOCATIONAL TRAINING INSTRUCTOR.TONGUE AND GROOVE MACHINE SETTER Work Phone: [facility] 12-20-2022 17:26-0400 Systolic blood pressure 132 mm[Hg] Leda Older VOCATIONAL TRAINING INSTRUCTOR.TONGUE AND GROOVE MACHINE SETTER Work Phone: [facility] 12-14-2022 10:36-0400 Body temperature 98.2 [degF] Leda Older VOCATIONAL TRAINING INSTRUCTOR.TONGUE AND GROOVE MACHINE SETTER Work Phone: [facility] 12-14-2022 10:36-0400 Body weight 84.82 kg Leda Older VOCATIONAL TRAINING INSTRUCTOR.TONGUE AND GROOVE MACHINE SETTER Work Phone: [facility] 12-14-2022 10:36-0400 Diastolic blood pressure 82 mm[Hg] Leda Older VOCATIONAL TRAINING INSTRUCTOR.TONGUE AND GROOVE MACHINE SETTER Work Phone: [facility] 12-14-2022 10:36-0400 Heart rate 72 /min Leda Older VOCATIONAL TRAINING INSTRUCTOR.TONGUE AND GROOVE MACHINE SETTER Work Phone: [facility] 12-14-2022 10:36-0400 Respiratory rate 16 /min Leda Older VOCATIONAL TRAINING INSTRUCTOR.TONGUE AND GROOVE MACHINE SETTER Work Phone: [facility] 12-14-2022 10:36-0400 SaO2% (BldA) [Mass fraction] 99 % Leda Older VOCATIONAL TRAINING INSTRUCTOR.TONGUE AND GROOVE MACHINE SETTER Work Phone: [facility] 12-14-2022 10:36-0400 Systolic blood pressure 144 mm[Hg] Leda Older VOCATIONAL TRAINING INSTRUCTOR.TONGUE AND GROOVE MACHINE SETTER Work Phone: [facility] 12-09-2022 14:55-0400 Body temperature 99 [degF] [facility] VOCATIONAL TRAINING INSTRUCTOR.TONGUE AND GROOVE MACHINE SETTER Work Phone: [facility] 12-09-2022 14:55-0400 Body weight 86.64 kg [facility] VOCATIONAL TRAINING INSTRUCTOR.TONGUE AND GROOVE MACHINE SETTER Work Phone: [facility] 12-09-2022 14:55-0400 Diastolic blood pressure 80 mm[Hg] [facility] VOCATIONAL TRAINING INSTRUCTOR.TONGUE AND GROOVE MACHINE SETTER Work Phone: [facility] 12-09-2022 14:55-0400 Heart rate 82 /min [facility] VOCATIONAL TRAINING INSTRUCTOR.TONGUE AND GROOVE MACHINE SETTER Work Phone: [facility] 12-09-2022 14:55-0400 Respiratory rate 16 /min [facility] VOCATIONAL TRAINING INSTRUCTOR.TONGUE AND GROOVE MACHINE SETTER Work Phone: [facility] 12-09-2022 14:55-0400 SaO2% (BldA) [Mass fraction] 98 % [facility] VOCATIONAL TRAINING INSTRUCTOR.TONGUE AND GROOVE MACHINE SETTER Work Phone: [facility] 12-09-2022 14:55-0400 Systolic blood pressure 134 mm[Hg] [facility] VOCATIONAL TRAINING INSTRUCTOR.TONGUE AND GROOVE MACHINE SETTER Work Phone: [facility] 12-03-2022 10:50-0400 Body temperature 98.4 [degF] Rubi Athy PA-C Work Phone: [facility] 12-03-2022 10:50-0400 Body weight 85.28 kg Rubi Athy PA-C Work Phone: [facility] 12-03-2022 10:50-0400 Diastolic blood pressure 84 mm[Hg] Rubi Athy PA-C Work Phone: [facility] 12-03-2022 10:50-0400 Heart rate 79 /min Rubi Athy PA-C Work Phone: [facility] 12-03-2022 10:50-0400 Respiratory rate 18 /min Rubi Athy PA-C Work Phone: [facility] 12-03-2022 10:50-0400 SaO2% (BldA) [Mass fraction] 98 % Rubi Athy PA-C Work Phone: [facility] 12-03-2022 10:50-0400 Systolic blood pressure 142 mm[Hg] Rubi Athy PA-C Work Phone: [facility] 10-12-2022 10:09-0400 Body height 161.3 cm Chhaya Crowe MD Work Phone: [facility] 10-12-2022 10:09-0400 Body weight 87.77 kg Chhaya Crowe MD Work Phone: [facility] 10-12-2022 10:09-0400 Diastolic blood pressure 72 mm[Hg] Chhaya Crowe MD Work Phone: [facility] 10-12-2022 10:09-0400 Systolic blood pressure 128 mm[Hg] Chhaya Crowe MD Work Phone: [facility] 09-14-2022 09:22-0400 Diastolic blood pressure 82 mm[Hg] Leda Older VOCATIONAL TRAINING INSTRUCTOR.TONGUE AND GROOVE MACHINE SETTER Work Phone: [facility] 09-14-2022 09:22-0400 Systolic blood pressure 138 mm[Hg] Leda Older VOCATIONAL TRAINING INSTRUCTOR.TONGUE AND GROOVE MACHINE SETTER Work Phone: [facility] 09-14-2022 08:55-0400 Body weight 86.64 kg Leda Older VOCATIONAL TRAINING INSTRUCTOR.TONGUE AND GROOVE MACHINE SETTER Work Phone: [facility] 09-14-2022 08:55-0400 Heart rate 80 /min Leda Older VOCATIONAL TRAINING INSTRUCTOR.TONGUE AND GROOVE MACHINE SETTER Work Phone: [facility] 09-14-2022 08:55-0400 Respiratory rate 16 /min Leda Older VOCATIONAL TRAINING INSTRUCTOR.TONGUE AND GROOVE MACHINE SETTER Work Phone: [facility] 09-04-2022 13:28-0400 Body temperature 97.7 [degF] Leda Older VOCATIONAL TRAINING INSTRUCTOR.TONGUE AND GROOVE MACHINE SETTER Work Phone: [facility] 09-04-2022 13:28-0400 Body weight 88 kg Leda Older VOCATIONAL TRAINING INSTRUCTOR.TONGUE AND GROOVE MACHINE SETTER Work Phone: [facility] 09-04-2022 13:28-0400 Diastolic blood pressure 90 mm[Hg] Leda Older VOCATIONAL TRAINING INSTRUCTOR.TONGUE AND GROOVE MACHINE SETTER Work Phone: [facility] 09-04-2022 13:28-0400 Heart rate 86 /min Leda Older VOCATIONAL TRAINING INSTRUCTOR.TONGUE AND GROOVE MACHINE SETTER Work Phone: [facility] 09-04-2022 13:28-0400 Respiratory rate 16 /min Leda Older VOCATIONAL TRAINING INSTRUCTOR.TONGUE AND GROOVE MACHINE SETTER Work Phone: [facility] 09-04-2022 13:28-0400 SaO2% (BldA) [Mass fraction] 98 % Leda Older VOCATIONAL TRAINING INSTRUCTOR.TONGUE AND GROOVE MACHINE SETTER Work Phone: [facility] 09-04-2022 13:28-0400 Systolic blood pressure 144 mm[Hg] Leda Older VOCATIONAL TRAINING INSTRUCTOR.TONGUE AND GROOVE MACHINE SETTER Work Phone: [facility] 08-17-2022 08:34-0400 Body temperature 98.49 [degF] Leda Older VOCATIONAL TRAINING INSTRUCTOR.TONGUE AND GROOVE MACHINE SETTER Work Phone: [facility] 08-17-2022 08:34-0400 Body weight 88 kg Leda Older VOCATIONAL TRAINING INSTRUCTOR.TONGUE AND GROOVE MACHINE SETTER Work Phone: [facility] 08-17-2022 08:34-0400 Diastolic blood pressure 90 mm[Hg] Leda Older VOCATIONAL TRAINING INSTRUCTOR.TONGUE AND GROOVE MACHINE SETTER Work Phone: [facility] 08-17-2022 08:34-0400 Heart rate 68 /min Leda Older VOCATIONAL TRAINING INSTRUCTOR.TONGUE AND GROOVE MACHINE SETTER Work Phone: [facility] 08-17-2022 08:34-0400 Respiratory rate 16 /min Leda Older VOCATIONAL TRAINING INSTRUCTOR.TONGUE AND GROOVE MACHINE SETTER Work Phone: [facility] 08-17-2022 08:34-0400 SaO2% (BldA) [Mass fraction] 98 % Leda Older VOCATIONAL TRAINING INSTRUCTOR.TONGUE AND GROOVE MACHINE SETTER Work Phone: [facility] 08-17-2022 08:34-0400 Systolic blood pressure 152 mm[Hg] Leda Older VOCATIONAL TRAINING INSTRUCTOR.TONGUE AND GROOVE MACHINE SETTER Work Phone: [facility] 07-17-2022 15:38-0400 Body height 157.5 cm Josr Mathews MD Work Phone: [facility] 07-17-2022 15:38-0400 Body temperature 99 [degF] Josr Mathews MD Work Phone: [facility] 07-17-2022 15:38-0400 Body weight 87.54 kg Josr Mathews MD Work Phone: [facility] 07-17-2022 15:38-0400 Diastolic blood pressure 70 mm[Hg] Josr Mathews MD Work Phone: [facility] 07-17-2022 15:38-0400 Heart rate 80 /min Josr Mathews MD Work Phone: [facility] 07-17-2022 15:38-0400 Respiratory rate 12 /min Josr Mathews MD Work Phone: [facility] 07-17-2022 15:38-0400 SaO2% (BldA) [Mass fraction] 97 % Josr Mathews MD Work Phone: [facility] 07-17-2022 15:38-0400 Systolic blood pressure 126 mm[Hg] Josr Mathews MD Work Phone: [facility] 06-26-2022 08:58-0500 Diastolic blood pressure 83 mm[Hg] Leda Older VOCATIONAL TRAINING INSTRUCTOR.TONGUE AND GROOVE MACHINE SETTER Work Phone: [facility] 06-26-2022 08:58-0500 Systolic blood pressure 135 mm[Hg] Leda Older VOCATIONAL TRAINING INSTRUCTOR.TONGUE AND GROOVE MACHINE SETTER Work Phone: [facility] 06-26-2022 08:23-0500 Body weight 88 kg Leda Older VOCATIONAL TRAINING INSTRUCTOR.TONGUE AND GROOVE MACHINE SETTER Work Phone: [facility] 06-26-2022 08:23-0500 Heart rate 68 /min Leda Older VOCATIONAL TRAINING INSTRUCTOR.TONGUE AND GROOVE MACHINE SETTER Work Phone: [facility] 06-26-2022 08:23-0500 Respiratory rate 16 /min Leda Older VOCATIONAL TRAINING INSTRUCTOR.TONGUE AND GROOVE MACHINE SETTER Work Phone: [facility] 06-15-2022 15:30-0500 Diastolic blood pressure 81 mm[Hg] Leda Older VOCATIONAL TRAINING INSTRUCTOR.TONGUE AND GROOVE MACHINE SETTER Work Phone: [facility] 06-15-2022 15:30-0500 Heart rate 85 /min Leda Older VOCATIONAL TRAINING INSTRUCTOR.TONGUE AND GROOVE MACHINE SETTER Work Phone: [facility] 06-15-2022 15:30-0500 Systolic blood pressure 137 mm[Hg] Leda Older VOCATIONAL TRAINING INSTRUCTOR.TONGUE AND GROOVE MACHINE SETTER Work Phone: [facility] 06-15-2022 14:45-0500 Body temperature 99.1 [degF] Leda Older VOCATIONAL TRAINING INSTRUCTOR.TONGUE AND GROOVE MACHINE SETTER Work Phone: [facility] 06-15-2022 14:45-0500 Body weight 88.45 kg Leda Older VOCATIONAL TRAINING INSTRUCTOR.TONGUE AND GROOVE MACHINE SETTER Work Phone: [facility] 06-15-2022 14:45-0500 Respiratory rate 16 /min Leda Older VOCATIONAL TRAINING INSTRUCTOR.TONGUE AND GROOVE MACHINE SETTER Work Phone: [facility] 06-15-2022 14:45-0500 SaO2% (BldA) [Mass fraction] 99 % Leda Older VOCATIONAL TRAINING INSTRUCTOR.TONGUE AND GROOVE MACHINE SETTER Work Phone: [facility] 04-17-2022 09:54-0500 Diastolic blood pressure 82 mm[Hg] Leda Older VOCATIONAL TRAINING INSTRUCTOR.TONGUE AND GROOVE MACHINE SETTER Work Phone: [facility] 04-17-2022 09:54-0500 Systolic blood pressure 140 mm[Hg] Leda Older VOCATIONAL TRAINING INSTRUCTOR.TONGUE AND GROOVE MACHINE SETTER Work Phone: [facility] 04-17-2022 09:37-0500 Body height 157.5 cm Leda Older VOCATIONAL TRAINING INSTRUCTOR.TONGUE AND GROOVE MACHINE SETTER Work Phone: [facility] 04-17-2022 09:37-0500 Body temperature 98.1 [degF] Leda Older VOCATIONAL TRAINING INSTRUCTOR.TONGUE AND GROOVE MACHINE SETTER Work Phone: [facility] 04-17-2022 09:37-0500 Body weight 88.91 kg Leda Older VOCATIONAL TRAINING INSTRUCTOR.TONGUE AND GROOVE MACHINE SETTER Work Phone: [facility] 04-17-2022 09:37-0500 Heart rate 75 /min Leda Older VOCATIONAL TRAINING INSTRUCTOR.TONGUE AND GROOVE MACHINE SETTER Work Phone: [facility] 04-17-2022 09:37-0500 SaO2% (BldA) [Mass fraction] 98 % Leda Older VOCATIONAL TRAINING INSTRUCTOR.TONGUE AND GROOVE MACHINE SETTER Work Phone: [facility] 02-14-2022 12:45-0400 Body temperature 99.1 [degF] Tracy Podlogar VOCATIONAL TRAINING INSTRUCTOR.TONGUE AND GROOVE MACHINE SETTER Work Phone: [facility] 02-14-2022 12:45-0400 Body weight 89.18 kg Tracy Podlogar VOCATIONAL TRAINING INSTRUCTOR.TONGUE AND GROOVE MACHINE SETTER Work Phone: [facility] 02-14-2022 12:45-0400 Diastolic blood pressure 88 mm[Hg] Tracy Podlogar VOCATIONAL TRAINING INSTRUCTOR.TONGUE AND GROOVE MACHINE SETTER Work Phone: [facility] 02-14-2022 12:45-0400 Heart rate 80 /min Tracy Podlogar VOCATIONAL TRAINING INSTRUCTOR.TONGUE AND GROOVE MACHINE SETTER Work Phone: [facility] 02-14-2022 12:45-0400 Respiratory rate 18 /min Tracy Podlogar VOCATIONAL TRAINING INSTRUCTOR.TONGUE AND GROOVE MACHINE SETTER Work Phone: [facility] 02-14-2022 12:45-0400 SaO2% (BldA) [Mass fraction] 97 % Tracy Podlogar VOCATIONAL TRAINING INSTRUCTOR.TONGUE AND GROOVE MACHINE SETTER Work Phone: [facility] 02-14-2022 12:45-0400 Systolic blood pressure 130 mm[Hg] Tracy Podlogar VOCATIONAL TRAINING INSTRUCTOR.TONGUE AND GROOVE MACHINE SETTER Work Phone: [facility] 02-07-2022 10:48-0400 Body temperature 98.29 [degF] Kathy Alejandre VOCATIONAL TRAINING INSTRUCTOR.TONGUE AND GROOVE MACHINE SETTER Work Phone: [facility] 02-07-2022 10:48-0400 Body weight 89.72 kg [employer] VOCATIONAL TRAINING INSTRUCTOR.TONGUE AND GROOVE MACHINE SETTER Work Phone: [facility] 02-07-2022 10:48-0400 Diastolic blood pressure 80 mm[Hg] [employer] VOCATIONAL TRAINING INSTRUCTOR.TONGUE AND GROOVE MACHINE SETTER Work Phone: [facility] 02-07-2022 10:48-0400 Heart rate 69 /min [employer] VOCATIONAL TRAINING INSTRUCTOR.TONGUE AND GROOVE MACHINE SETTER Work Phone: [facility] 02-07-2022 10:48-0400 Respiratory rate 16 /min [employer] VOCATIONAL TRAINING INSTRUCTOR.TONGUE AND GROOVE MACHINE SETTER Work Phone: [facility] 02-07-2022 10:48-0400 SaO2% (BldA) [Mass fraction] 98 % [employer] VOCATIONAL TRAINING INSTRUCTOR.TONGUE AND GROOVE MACHINE SETTER Work Phone: [facility] 02-07-2022 10:48-0400 Systolic blood pressure 132 mm[Hg] [employer] VOCATIONAL TRAINING INSTRUCTOR.TONGUE AND GROOVE MACHINE SETTER Work Phone: [facility] 01-19-2022 09:04-0400 Diastolic blood pressure 86 mm[Hg] Leda Older VOCATIONAL TRAINING INSTRUCTOR.TONGUE AND GROOVE MACHINE SETTER Work Phone: [facility] 01-19-2022 09:04-0400 Systolic blood pressure 136 mm[Hg] Leda Older VOCATIONAL TRAINING INSTRUCTOR.TONGUE AND GROOVE MACHINE SETTER Work Phone: [facility] 01-19-2022 08:10-0400 Body weight 88.91 kg Leda Older VOCATIONAL TRAINING INSTRUCTOR.TONGUE AND GROOVE MACHINE SETTER Work Phone: [facility] 01-19-2022 08:10-0400 Heart rate 68 /min Leda Older VOCATIONAL TRAINING INSTRUCTOR.TONGUE AND GROOVE MACHINE SETTER Work Phone: [facility] 01-19-2022 08:10-0400 Respiratory rate 16 /min Leda Older VOCATIONAL TRAINING INSTRUCTOR.TONGUE AND GROOVE MACHINE SETTER Work Phone: [facility] 11-20-2021 13:06-0400 Body temperature 98.29 [degF] [employer] VOCATIONAL TRAINING INSTRUCTOR.TONGUE AND GROOVE MACHINE SETTER Work Phone: [facility] 11-20-2021 13:06-0400 Body weight 88.72 kg [employer] VOCATIONAL TRAINING INSTRUCTOR.TONGUE AND GROOVE MACHINE SETTER Work Phone: [facility] 11-20-2021 13:06-0400 Diastolic blood pressure 84 mm[Hg] [employer] VOCATIONAL TRAINING INSTRUCTOR.TONGUE AND GROOVE MACHINE SETTER Work Phone: [facility] 11-20-2021 13:06-0400 Heart rate 68 /min [employer] VOCATIONAL TRAINING INSTRUCTOR.TONGUE AND GROOVE MACHINE SETTER Work Phone: [facility] 11-20-2021 13:06-0400 Respiratory rate 16 /min [employer] VOCATIONAL TRAINING INSTRUCTOR.TONGUE AND GROOVE MACHINE SETTER Work Phone: [facility] 11-20-2021 13:06-0400 SaO2% (BldA) [Mass fraction] 98 % [employer] VOCATIONAL TRAINING INSTRUCTOR.TONGUE AND GROOVE MACHINE SETTER Work Phone: [facility] 11-20-2021 13:06-0400 Systolic blood pressure 136 mm[Hg] [employer] VOCATIONAL TRAINING INSTRUCTOR.TONGUE AND GROOVE MACHINE SETTER Work Phone: [facility] 10-13-2021 07:49-0400 Body weight 88.45 kg Leda Older VOCATIONAL TRAINING INSTRUCTOR.TONGUE AND GROOVE MACHINE SETTER Work Phone: [facility] 10-13-2021 07:49-0400 Diastolic blood pressure 100 mm[Hg] Leda Older VOCATIONAL TRAINING INSTRUCTOR.TONGUE AND GROOVE MACHINE SETTER Work Phone: [facility] 10-13-2021 07:49-0400 Heart rate 64 /min Leda Older VOCATIONAL TRAINING INSTRUCTOR.TONGUE AND GROOVE MACHINE SETTER Work Phone: [facility] 10-13-2021 07:49-0400 Respiratory rate 16 /min Leda Older VOCATIONAL TRAINING INSTRUCTOR.TONGUE AND GROOVE MACHINE SETTER Work Phone: [facility] 10-13-2021 07:49-0400 Systolic blood pressure 144 mm[Hg] Leda Older VOCATIONAL TRAINING INSTRUCTOR.TONGUE AND GROOVE MACHINE SETTER Work Phone: [facility] 10-10-2021 18:09-0400 Body temperature 97.9 [degF] [employer] VOCATIONAL TRAINING INSTRUCTOR.TONGUE AND GROOVE MACHINE SETTER Work Phone: [facility] 10-10-2021 18:09-0400 Body weight 90.54 kg [employer] VOCATIONAL TRAINING INSTRUCTOR.TONGUE AND GROOVE MACHINE SETTER Work Phone: [facility] 10-10-2021 18:09-0400 Diastolic blood pressure 94 mm[Hg] [employer] VOCATIONAL TRAINING INSTRUCTOR.TONGUE AND GROOVE MACHINE SETTER Work Phone: [facility] 10-10-2021 18:09-0400 Heart rate 79 /min [employer] VOCATIONAL TRAINING INSTRUCTOR.TONGUE AND GROOVE MACHINE SETTER Work Phone: [facility] 10-10-2021 18:09-0400 Respiratory rate 21 /min [employer] VOCATIONAL TRAINING INSTRUCTOR.TONGUE AND GROOVE MACHINE SETTER Work Phone: [facility] 10-10-2021 18:09-0400 SaO2% (BldA) [Mass fraction] 99 % [employer] VOCATIONAL TRAINING INSTRUCTOR.TONGUE AND GROOVE MACHINE SETTER Work Phone: [facility] 10-10-2021 18:09-0400 Systolic blood pressure 172 mm[Hg] [employer] VOCATIONAL TRAINING INSTRUCTOR.TONGUE AND GROOVE MACHINE SETTER Work Phone: [facility] 09-19-2021 15:16-0400 Diastolic blood pressure 80 mm[Hg] Dyana Haagen VOCATIONAL TRAINING INSTRUCTOR.TONGUE AND GROOVE MACHINE SETTER Work Phone: [facility] 09-19-2021 15:16-0400 Heart rate 73 /min Dyana Haagen VOCATIONAL TRAINING INSTRUCTOR.TONGUE AND GROOVE MACHINE SETTER Work Phone: [facility] 09-19-2021 15:16-0400 Respiratory rate 18 /min Dyana Haagen VOCATIONAL TRAINING INSTRUCTOR.TONGUE AND GROOVE MACHINE SETTER Work Phone: [facility] 09-19-2021 15:16-0400 SaO2% (BldA) [Mass fraction] 98 % Dyana Haagen VOCATIONAL TRAINING INSTRUCTOR.TONGUE AND GROOVE MACHINE SETTER Work Phone: [facility] 09-19-2021 15:16-0400 Systolic blood pressure 132 mm[Hg] Dyana Haagen VOCATIONAL TRAINING INSTRUCTOR.TONGUE AND GROOVE MACHINE SETTER Work Phone: [facility] Encounters Encounter Date Encounter Type Care Provider Facility Start: 06-21-2023 Erasto Brown APRN .[employer]ONGUE AND [employer]OOVE MACHINE SETTER Work Phone: [facility] Procedures Date Procedure Procedure Detail Performing Clinician Start: 04-16-2023 COVID & INFLUENZA A/ B & RSV NAAT, ROUTINE Rubi Araya PA-C Work Phone: Start: 03-12-2023 COVID & INFLUENZA A/ B NAAT, ROUTINE Alexandre Campa PA-C Work Phone: Start: 11-09-2022 End: 11-09-2022 Mammography Chhaya Crowe MD Work Phone: Start: 09-21-2022 Us abdominal real ti me w/image limited Leda Brown VOCATIONAL TRAINING INSTRUCTOR.[employer]ONG[employer] AND [employer]OOVE MACHINE SETTER Work Phone: Start: 02-14-2022 Urnls dip stick/tabl et rgnt auto w/o microscopy Tracy Mendes VOCATIONAL TRAINING INSTRUCTOR.[employer]ONGUE AND [employer]OOVE MACHINE SETTER Work Phone: Start: 01-19-2022 Hemoglobin A1c/Hemoglobin.total in Blood Leda Brown VOCATIONAL TRAINING INSTRUCTOR.[employer]ONGUE AND [employer]OOVE MACHINE SETTER Work Phone: Start: 01-19-2022 INFLUENZA VACCINE QUADRIVALENT 6 MO - 64 YRS IM Leda Brown VOCATIONAL TRAINING INSTRUCTOR.[employer]ONGUE AND GROOVE MACHINE SETTER Work Phone: Start: 11-20-2021 STREP A MOLECULAR (POC) Kathy Alejandre VOCATIONAL TRAINING INSTRUCTOR.[employer]ONGUE AND [employer]OOVE MACHINE SETTER Work Phone: Start: 11-02-2021 MIN DIAG W ROBERT RT Cour mono Seymour VOCATIONAL TRAINING INSTRUCTOR.CNM Work Phone: Start: 10-13-2021 Hemoglobin A1c/Hemoglobin.total in Blood Leda Older VOCATIONAL TRAINING INSTRUCTOR.[employer]ONG[employer] AND [employer]OVE MACHINE SETTER Work Phone: Start: 10-10-2021 Urnls dip stick/tabl et rgnt auto w/o microscopy Anabela Angulo PA-C Work Phone: Start: 10-06-2021 CBC/DIFF (OUTSIDE [facility]) R jay Mason Work Phone: Start: 09-22-2021 Mammography Mammograph y Coordinator Start: 06-16-2021 Adult depression scr eening assessment Eladio Hoskins VOCATIONAL TRAINING INSTRUCTOR.[employer]ONG[employer] AND [employer]OVE MACHINE SETTER Work Phone: Start: 03-15-2020 Mammography Eladio ohara VOCATIONAL TRAINING INSTRUCTOR.[employer]ONG[employer] AND [employer]OOVE MACHINE SETTER Work Phone: Start: 01-22-2020 Colonoscopy Eladio ohara VOCATIONAL TRAINING INSTRUCTOR.[employer]ONGUE AND [employer]OOVE MACHINE SETTER Work Phone: Start: 01-14-2020 Dup-scan artl marlon abdl/pel/scrot&/rpr orgn lmt Dia Iglesias Work Phone: Plan of Treatment Date Care Activity Detail Author Start: 06-13-2024 Hepatitis B surface antibody level LDL Cholesterol [facility] Start: 05-23-2024 Annual PCP Team Chemical Dependency Counselor tricia Disease Visit Annual PCP Team Chronic Disease Visit [facility] Start: 03-28-2024 Annual PCP Team Chemical Dependency Counselor tricia Disease Visit Annual PCP Team Chronic Disease Visit [facility] Start: 03-28-2024 Colorectal Cancer Screening Colorectal Cancer Screening [facility] Immunizations Immunization Date Immunization Notes Care Provider Flaquita pizano 01-19-2022 influenza, injectabl e, quadrivalent, contains preservative Leda Brown APRN.TONGUE AND GROOVE MACHINE SETTER Work Phone: [facility] 01-19-2022 influenza virus vaccine, unspecified formulation Leda Brown VOCATIONAL TRAINING INSTRUCTOR.TONGUE AND GROOVE MACHINE SETTER Work Phone: [facility] 03-17-2021 influenza, injectabl e, quadrivalent, contains preservative Eladio Hoskins APRN.TONGUE AND GROOVE MACHINE SETTER Work Phone: [facility] 09-03-2020 COVID-19 vaccine, fu ll dose (MODERNA) Eladio Hoskins APRN.TONGUE AND GROOVE MACHINE SETTER Work Phone: [facility] 08-06-2020 COVID-19 vaccine, fu ll dose (MODERNA) Eladio Hoskins APRN.TONGUE AND GROOVE MACHINE SETTER Work Phone: [facility] Work Phone: 01-28-2020 influenza, injectabl e, quadrivalent, contains preservative Eladio Hoskins APRN.TONGUE AND GROOVE MACHINE SETTER Work Phone: [facility] Work Phone: 02-19-2019 influenza, injectabl e, quadrivalent, contains preservative Eladio Hoskins APRN.TONGUE AND GROOVE MACHINE SETTER Work Phone: [facility] Payers Date Payer Category Payer Unknown [employer] PPO [id number] 2021-Present [phone] [address] [place] [address] PPO [id number] 2021 Unknown [id number] 2021 Unknown [id number] 1965 Unknown [id number] 1965 Unknown [id number] Social History Date Type Detail Facility Tobacco smoking stat [facility] Not on file [facility] [place] Start: 01-22-2019 End: 02-14-2022 Tobacco smoking status NHIS Never smoked tobacco [facility] Start: 01-22-2019 End: 02-14-2022 Tobacco use and exposure Smokeless tobacco non-user [facility] Start: 06-16-2021 End: 06-21-2023 Alcohol intake Ex-drinker (finding) [facility] Start: 01-28-2020 End: 05-18-2020 History SDOH Alcohol Frequency 2 [facility] Start: 01-28-2020 End: 05-18-2020 History SDOH Alcohol Std Drinks 1 [facility] Start: 05-16-2021 History SDOH Alcohol Comment rare [facility] Start: 01-28-2020 History SDOH Social Connections Living 5 [facility] Start: 01-28-2020 History SDOH Physical Activity DPW 0 [facility] Start: 01-28-2020 History SDOH Financial 4 [facility] Start: 05-18-2020 History SDOH Housing Unable to Pay 3 [facility] Start: 01-06-2020 Education 21 [facility] Start: 1965 Sex Assigned At Female [facility] Start: 09-04-2021 End: 01-19-2022 Exposure to SARS-CoV-2 (event) Unable to assess [facility] Work Phone: Start: 2021 End: 02-23-2022 Exposure to SARS-CoV-2 (event) Not sure [facility] Start: 01-28-2020 End: 09-14-2022 History of Social function [place] [facility] tricia Start: 01-28-2020 End: 09-14-2022 Social connection and isolation panel [facility] Do you belong to any clubs or organizations such as restorationism groups, unions, fraternal or athletic groups, or school groups? No [facility] Are you now , , , , never or living with a partner? [facility] How often to you hav e a drink containing alcohol? Monthly or less [facility] How many standard dr inks containing alcohol do you have on a typical day? 1 or 2 [facility] How often do you hav e 6 or more drinks on 1 occasion? Never [facility] How hard is it for y ou to pay for the very basics like food, housing, medical care, and heating Not very hard [facility] Do you feel stress - tense, restless, nervous, or anxious, or unable to sleep at night because your mind is troubled all the time - these days [OSQ] Only a little [facility] (I/We) worried wheth er (my/our) food would run out before (I/we) got money to buy more. Never true [facility] In the past 12 month s, has lack of transportation kept you from medical appointments or from getting medications? No [facility] Start: 01-06-2020 Gender identity Identifies as female gender (finding) [facility] Start: 01-06-2020 Sexual orientation Heterosexual (finding) [facility] Do you feel stress - tense, restless, nervous, or anxious, or unable to sleep at night because your mind is troubled all the time - these days [OSQ] Not at all [facility] (I/We) worried wheth er (my/our) food would run out before (I/we) got money to buy more. DK or Refused [facility] Medical Equipment Procedure Code Equipment Code Equipment Origin al Text Equipment Identifier Dates Start: 05-09-2021 Clinical Notes 08-08-2021 to 06-21-2023 Telephone Encounter - Diamond Vaughn LPN - 06/21/2023 10:37 AM ESTTelephone Encounter - Michelle Hurtado LPN - 06/19/2023 4:00 PM Rubi Hunter PA-C - 04/16/2023 4:24 PM ESTPatient Instructions Note Date & Type Note Facility 06-21-2023 Miscellaneous Notes Patient has been identified by name and date of : Yes Patient phones for refill(s): Requested Prescriptions Pending Prescriptions Disp Refills metFORMIN ER (GLUCOPHAGE XR) 500 mg 24 hr tablet [Pharmacy Med Name: METFORMIN HCL ER 500 MG TABLET] 360 tablet 1 Sig: take 2 tablets by mouth twice a day with meals Date of last office visit in primary care: 05/23/2023 Date of next office visit in primary care: 07/05/2023 Please advise. Thank you. Diamond Vaughn LPN. documented in this encounter [facility] 06-19-2023 Miscellaneous Notes Patient has been identified by name and date of : No Patient phones for refill(s): Requested Prescriptions Pending Prescriptions Disp Refills naproxen (NAPROSYN) 500 mg tablet 30 tablet 1 Date of last office visit in primary care: 05/23/2023 Date of next office visit in primary care: 07/05/2023 Please advise. Thank you. Michelle Hurtado LPN. documented in this encounter [facility] 06-18-2023 Miscellaneous Notes Patient has been identified [...] Michelle Hurtado LPN. documented in this encounter [facility] 06-18-2023 Miscellaneous Notes Patient has been identified [...] Michelle Hurtado LPN. documented in this encounter [facility] 06-11-2023 Miscellaneous Notes Patient has been identified [...] Michelle Hurtado LPN. documented in this encounter [facility] 05-23-2023 Note HNO ID: [id number] Author: LEDA BROWN APRN.TONGUE AND GROOVE MACHINE SETTER Service: ? Author Type: Nurse Practitioner Type: [...] puffiness she is following up with her nutritional services director for. Patient denies any side effects of [...] severe allergic reactionDisp: 2 EachRfl: 1 lancets (TritonTOUCH DELICA PLUS LANCET) 33 gaugeTest blood sugar(s) [...] Skin color, texture, (more content not included)... [facility] 05-03-2023 Note HNO ID: [id number] Author: Luz Nieves APRN.TONGUE AND GROOVE MACHINE SETTER Service: ? Author Type: Nurse Practitioner Type: [...] severe allergic reactionDisp: 2 EachRfl: 1 lancets (CircleUCH DELICA PLUS LANCET) 33 gaugeTest blood sugar(s) [...] and dry. Neurolo (more content not included)... [facility] 05-02-2023 Note HNO ID: [id number] Author: Luz Nieves, VOCATIONAL TRAINING INSTRUCTOR.TONGUE AND GROOVE MACHINE SETTER Service: ? Author Type: Nurse Practitioner Type: [...] visit. Either the patient or their legal title insurance sales representative has been informed of the risks [...] severe allergic reactionDisp: 2 EachRfl: 1 lancets (TritonTOUCH DELICA PLUS LANCET) 33 gaugeTest blood sugar(s) [...] use: Never EXAM: (more content not included)... [facility] 04-28-2023 Note HNO ID: [id number] Author: Shiloh Medrano APRN.TONGUE AND GROOVE MACHINE SETTER Service: ? Author Type: Nurse Practitioner Type: Progress Notes Filed: 04/28/2023 10:06 AM Note Text: Telemedicine Evaluation for COVID-19 Infection MyChart Zoom Video Visit was used for evaluation of this patient. I have communicated my name and active licensure. The patient's identity and physical location were verified at the time of this visit. Either the patient or their legal title insurance sales representative has been informed of the risks [...] infection (COVID-19). Molnupiravir Eligibility and Patient Discussion [facility] Formulary Restriction Criteria: Adult outpatients 18 years [...] during treatment a (more content not included)... [facility] 04-16-2023 Note HNO ID: [id number] Author: Rubi Araya PA-C Service: ? Author Type: Physician Medical Insurance Coder Type: Progress Notes Filed: 04/16/2023 4:26 PM Note Text: This note was created using Driver Hireriter. Subjective Cassia Holland is a 57 year old female. HPI Presents with nausea, low-grade fever, body aches since this morning. She states she was exposed to COVID and influenza. She was visiting her mother at the shelter and it was going around the shelter. She also was exposed to COVID by [...] mL injection (DEFINITY) INTRAVENOUS DIRECTED PRN Leda Bronw APRN.CNP sodium chloride 0.9 % (flush) 10 mL (BD POSIFLUSH) 10 mL INTRAVENOUS DIRECTED PRN Leda Brown, BOOKER.TONGUE AND GROOVE MACHINE SETTER PAST SURGICAL HISTORY Procedure Laterality Date D [...] Vitals reviewed. Constitutional: (more content not included)... [facility] 04-16-2023 History of Present illness Narrative This note was created using Playfireter. Subjective Cassia Holland is a 57 year old female. HPI Presents with nausea, low-grade fever, body aches since this morning. She states she was exposed to COVID and influenza. She was visiting her mother at the shelter and it was going around the shelter. She also was exposed to COVID by [...] severe allergic reaction 2 Each 1 lancets (TritonTOUCH DELICA PLUS LANCET) 33 gauge Test blood [...] injection (DEFINITY) INTRAVENOUS DIRECTED PRN Leda Brown APRN.TONGUE AND GROOVE MACHINE SETTER sodium chloride 0.9 % (flush) 10 mL (BD POSIFLUSH) 10 mL INTRAVENOUS DIRECTED PRN Leda Brown APRN.TONGUE AND GROOVE MACHINE SETTER PAST SURGICAL HISTORY Procedure Laterality Date D [...] Rubi Araya PA-C documented in this encounter [facility] 03-28-2023 Note HNO ID: [id number] Author: Leda Brown APRN.TONGUE AND GROOVE MACHINE SETTER Service: ? Author Type: Nurse Practitioner Type: Progress Notes Filed: 03/28/2023 4:05 PM Note Text: CC: Patient presents with: Follow Up: Hypertension and thyroid HPI Cassia Holland is a 57 year old female who presents today for new onset A-fib. Has been in the ER again at [facility] for palpitations since last being seen for new onset A-fib found in other ER visit 4 weeks ago. Saw her nutritional services director and is scheduling an ablation. Records not available for review. Per patient they switched her BP pills at request of nutritional services director. Per cardiology note. Amlodipine was stopped and [...] distress, alert P (more content not included)... [facility] 03-28-2023 History of Present illness Narrative CC: Patient presents with: Follow Up: Hypertension and thyroid HPI Cassia Holland is a 57 year old female who presents today for new onset A-fib. Has been in the ER again at [facility] for palpitations since last being seen for new onset A-fib found in other ER visit 4 weeks ago. Saw her nutritional services director and is scheduling an ablation. Records not available for review. Per patient they switched her BP pills at request of nutritional services director. Per cardiology note. Amlodipine was stopped and [...] severe allergic reaction^Disp: 2 Each^Rfl: 1 lancets (CircleUCH DELICA PLUS LANCET) 33 gauge^Test blood sugar(s) 1 times daily. Dx: Type 2 DM - Controlled E11.9 Insulin: No^Disp: 100 Each^Rfl: 11 blood sugar diagnostic (TritonTOUCH ULTRA TEST) test strip^use 1 TEST STRIP [...] Testing Discontinued DATA REVIEWED: Outside chart from [facility] reviewed. [facility] records requested ASSESSMENT/PLAN: [...] Leda Brown APRN.CNP documented in this encounter [facility] 03-20-2023 Miscellaneous Notes Patient has been identified [...] Elicia Gardner LPN. documented in this encounter [facility] 03-15-2023 Miscellaneous Notes Was reviewed in appointment with Alexandre. Leda Brown APRN.CNP documented in this encounter [facility] 03-12-2023 Note HNO ID: [id number] Author: Alexandre Campa PA-C Service: ? Author Type: Physician Medical Insurance Coder Type: Progress Notes Filed: 03/13/2023 4:47 PM [...] severe allergic reactionDisp: 2 EachRfl: 1 lancets (CircleUCH DELICA PLUS LANCET) 33 gaugeTest blood sugar(s) 1 times daily. Dx: Type 2 DM - Controlled E11.9 Insulin: NoDisp: 100 EachRfl: 11 blood sugar diagnostic (CircleUCH ULTRA TEST) test stripuse 1 TEST STRIP [...] sclera white, non-i (more content not included)... [facility] 03-12-2023 History of Present illness Narrative [...] severe allergic reaction^Disp: 2 Each^Rfl: 1 lancets (TritonTOUCH DELICA PLUS LANCET) 33 gauge^Test blood sugar(s) 1 times daily. Dx: Type 2 DM - Controlled E11.9 Insulin: No^Disp: 100 Each^Rfl: 11 blood sugar diagnostic (CircleUCH ULTRA TEST) test strip^use 1 TEST STRIP [...] testing ordered; Results will be released to [facility] in 24-48 hours. Explained to patient that [...] Alexandre Campa PA-C documented in this encounter [facility] 03-01-2023 Miscellaneous Notes Patient last visit 02/28/23 Follow up appointment scheduled 03/28/23 Chanel Azevedo Ma documented in this encounter [facility] 02-28-2023 Note HNO ID: [id number] Author: Leda Brown APRN.TONGUE AND GROOVE MACHINE SETTER Service: ? Author Type: Nurse Practitioner Type: Progress Notes Filed: 03/01/2023 4:46 PM Note Text: CC: Patient presents with: Recheck: ER follow up, AFIB HPI Cassia Holland is a 57 year old female who presents today for routine follow-up but was in ER yesterday for new onset A-fib. Facility: [facility] Date of visit: 02/27/23. Sudden onset [...] severe allergic reactionDisp: 2 EachRfl: 1 lancets (CircleUCH DELICA PLUS LANCET) 33 gaugeTest blood sugar(s) 1 times daily. Dx: Type 2 DM - Controlled E11.9 Insulin: NoDisp: 100 EachRfl: 11 blood sugar diagnostic (CircleUCH ULTRA TEST) test stripuse 1 TEST STRIP [...] sclera white, non (more content not included)... [facility] 02-28-2023 History of Present illness Narrative CC: Patient presents with: Recheck: ER follow up, AFIB HPI Cassia Holland is a 57 year old female who presents today for routine follow-up but was in ER yesterday for new onset A-fib. Facility: [facility] Date of visit: 02/27/23. Sudden onset [...] severe allergic reaction^Disp: 2 Each^Rfl: 1 lancets (CircleUCH DELICA PLUS LANCET) 33 gauge^Test blood sugar(s) 1 times daily. Dx: Type 2 DM - Controlled E11.9 Insulin: No^Disp: 100 Each^Rfl: 11 blood sugar diagnostic (CircleUCH ULTRA TEST) test strip^use 1 TEST STRIP [...] Testing Discontinued DATA REVIEWED: Outside chart from [facility] reviewed. ASSESSMENT/PLAN: 1. New onset a-fib [...] Leda Brown APRN.CNP documented in this encounter [facility] 02-07-2023 Note HNO ID: [id number] Author: Leda Brown APRN.CNP Service: ? Author [...] severe allergic reactionDisp: 2 EachRfl: 1 lancets (TritonTOUCH DELICA PLUS LANCET) 33 gaugeTest blood sugar(s) [...] non-injected Ears: external (more content not included)... [facility] 01-31-2023 Note HNO ID: [id number] Author: Rubi Araya PA-C Service: ? Author Type: Physician Medical Insurance Coder Type: Progress Notes Filed: 01/31/2023 5:11 PM [...] severe allergic reaction 2 Each 1 lancets ([employer] DELICA PLUS LANCET) 33 gauge Test blood sugar(s) 1 times daily. Dx: Type 2 DM - Controlled E11.9 Insulin: No 100 Each 11 blood sugar diagnostic (CircleUCH ULTRA TEST) test strip use 1 TEST [...] Ear: Tympanic membran (more content not included)... [facility] 12-31-2022 Note HNO ID: [id number] Author: John Rodriguez APRN.CNP Service: ? Author [...] with plan of care. Be seen at [facility] for further evaluation care. John Rodriguez APRN.CNP [facility] 12-31-2022 History of Present illness Narrative [...] with plan of care. Be seen at [facility] for further evaluation care. John Rodriguez APRN.CNP documented in this encounter [facility] 12-20-2022 Note HNO ID: [id number] Author: Leda Brown APRN.CNP Service: ? Author [...] with elevation or in AM. 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 Dx: Type 2 DM - Controlled E11.9 Insulin: NoDisp: 100 EachRfl: 11 blood sugar diagnostic (TritonTOUCH ULTRA TEST) test stripuse 1 TEST STRIP [...] refill. Slight non (more content not included)... [facility] 12-20-2022 Instructions Leda Brown APRN.CNP - 12/20/2022 5:35 PM EDT Get compression socks and wear during the day to help decrease edema. Elevate legs as able documented in this encounter [facility] 12-20-2022 History of Present illness Narrative CC: [...] with elevation or in AM. 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 Dx: Type 2 DM - Controlled E11.9 Insulin: No^Disp: 100 Each^Rfl: 11 blood sugar diagnostic (TritonTOUCH ULTRA TEST) test strip^use 1 TEST STRIP [...] Leda Brown APRN.CNP documented in this encounter [facility] 12-19-2022 Miscellaneous Notes Patient notified, scheduled for tomorrow with Leda. Patient was to follow-up for any recurrent symptoms per Leda Brown's office visit note. Please schedule Luz Brown APRN.ANTHONY Pt seen in twice & with [employer] BLANKET MACHINE FEEDER Kevin on 12/14/22 for cellulitis right lower leg. [...] Chloé Dhaliwal LPN documented in this encounter [facility] 12-14-2022 Note HNO ID: [id number] Author: Ldea Brown APRN.ANTHONY Service: ? Author Type: Nurse Practitioner Type: Progress Notes Filed: 12/15/2022 7:20 AM Note Text: CC: Patient presents with: Recheck: 3 month follow up HPI Cassia Holland is a 57 year old female who presents today for routine follow up but has been to the ER twice since last visit and 2 express care visit. 11/27 - went to [facility] for increase in RUQ pain and severe nausea. US of abdomen showed cirrhosis of liver which is not new for her and a possible gallbladder polyp. CT showed 5mm possible ureter stone. Had a CT urogram by Dr. Wylie last week which per patient was normal. Has EGD scheduled with her lacemaker for ongoing nausea and pain in January. Repeat abdominal CT on 12/07 with no concerns outside of her known liver disease. RUQ pain is at baseline except last night had episode after eating a large meal of omani fries and BBQ sandwich. Self resolved during [...] Has a heart cath being performed by [facility] at the end of this month: REVIEW [...] severe allergic reactionDisp: 2 EachRfl: 1 lancets (TritonTOUCH DELICA PLUS LANCET) 33 gaugeTest blood sugar(s) 1 times daily. Dx: Type 2 DM - Controlled E11.9 Insulin: NoDisp: 100 EachRfl: 11 blood sugar diagnostic (TritonTOUCH ULTRA TEST) test stripuse 1 TEST STRIP [...] kitDisp: 1 Eac (more content not included)... [facility] 12-14-2022 History of Present illness Narrative CC: Patient presents with: Recheck: 3 month follow up HPI Cassia Holland is a 57 year old female who presents today for routine follow up but has been to the ER twice since last visit and 2 [facility] care visit. 11/27 - went to [facility] for increase in RUQ pain and severe nausea. US of abdomen showed cirrhosis of liver which is not new for her and a possible gallbladder polyp. CT showed 5mm possible ureter stone. Had a CT urogram by Dr. Wylie last week which per patient was normal. Has EGD scheduled with her lacemaker for ongoing nausea and pain in January. Repeat abdominal CT on 12/07 with no concerns outside of her known liver disease. RUQ pain is at baseline except last night had episode after eating a large meal of omani fries and BBQ sandwich. Self resolved during the night No vomiting, diarrhea, fever, chest pain, shortness of breath, or palpitations. 12/03 - went back to [facility] for RLE swelling and red without [...] Has a heart cath being performed by [facility] at the end of this month: REVIEW [...] severe allergic reaction^Disp: 2 Each^Rfl: 1 lancets (CircleUCH DELICA PLUS LANCET) 33 gauge^Test blood sugar(s) 1 times daily. Dx: Type 2 DM - Controlled E11.9 Insulin: No^Disp: 100 Each^Rfl: 11 blood sugar diagnostic (CircleUCH ULTRA TEST) test strip^use 1 TEST STRIP [...] TESTING Discontinued DATA REVIEWED: Outside chart from [facility] reviewed. ASSESSMENT/PLAN: 1. Cellulitis of right [...] baseline - continue with upcoming EGD with Customer Service Rep - if negative or no cause for [...] Leda Brown APRN.CNP documented in this encounter [facility] 12-09-2022 Note HNO ID: [id number] Author: John Rodriguez APRN.CNP Service: ? Author [...] allergic reactionDisp: 2 EachRfl: 1 - lancets (TritonTOUCH DELICA PLUS LANCET) 33 gaugeTest blood sugar(s) 1 times daily. Dx: Type 2 DM - Controlled E11.9 Insulin: NoDisp: 100 EachRfl: 11 - blood sugar diagnostic (TritonTOUCH ULTRA TEST) test stripuse 1 TEST STRIP [...] General: She is (more content not included)... [facility] 12-09-2022 Note HNO ID: [id number] Author: John Rodriguez APRN.TONGUE AND GROOVE MACHINE SETTER Service: ? Author Type: Nurse Practitioner Type: Progress Notes Filed: 12/09/2022 3:11 PM Note Text: Subjective HPI ROS Objective Physical Exam [facility] 12-09-2022 History of Present illness Narrative [...] severe allergic reaction^Disp: 2 Each^Rfl: 1 lancets (ONETOUCH DELICA PLUS LANCET) 33 gauge^Test blood sugar(s) 1 times daily. Dx: Type 2 DM - Controlled E11.9 Insulin: No^Disp: 100 Each^Rfl: 11 blood sugar diagnostic (TritonTOUCH ULTRA TEST) test strip^use 1 TEST STRIP [...] of care. This note was generated using [employer] software. It may contain errors in wording, punctuation, or spelling. John Rodriguez APRN.ANTHONY Subjective HPI ROS Objective Physical Exam documented in this encounter [facility] 12-03-2022 Note HNO ID: [id number] Author: Rubi Araay PA-C Service: ? Author Type: Physician Medical Insurance Coder Type: Progress Notes Filed: 12/03/2022 11:19 AM Note Text: This note was created using Driver Hireriter. Subjective Cassia Holland is a 57 year [...] severe allergic reaction 2 Each 1 lancets (CircleUCH DELICA PLUS LANCET) 33 gauge Test blood sugar(s) 1 times daily. Dx: Type 2 DM - Controlled E11.9 Insulin: No 100 Each 11 blood sugar diagnostic (CircleUCH ULTRA TEST) test strip use 1 TEST [...] 10 mL INTRAVENOUS DIRECTED PRN Leda Brown, VOCATIONAL TRAINING INSTRUCTOR.TONGUE AND GROOVE MACHINE SETTER PAST SURGICAL HISTORY Procedure Laterality Date D [...] She will go (more content not included)... [facility] 12-03-2022 History of Present illness Narrative This note was created using Playfireter. Subjective Cassia Holland is a 57 year [...] severe allergic reaction 2 Each 1 lancets (TritonTOUCH DELICA PLUS LANCET) 33 gauge Test blood [...] injection (DEFINITY) INTRAVENOUS DIRECTED PRN Leda Brown, VOCATIONAL TRAINING INSTRUCTOR.TONGUE AND GROOVE MACHINE SETTER sodium chloride 0.9 % (flush) 10 mL (BD POSIFLUSH) 10 mL INTRAVENOUS DIRECTED PRN Leda Brown APRN.TONGUE AND GROOVE MACHINE SETTER PAST SURGICAL HISTORY Procedure Laterality Date D [...] the emergency department. She will go to [facility] ER. Rubi Araya PA-C documented in this encounter [facility] 11-28-2022 Note Patient Outreach (IN [facility]) CASSIA HOLLAND ([id number]) 1965 F Date Time Provider Department 11/28/22 [...] Order(s):ALBUMIN/CREAT RATIO RND UR [SQUACR] Order #: [id number] FUTURE LIPID PANEL BASIC [SQLIPB] Order #: [id number] FUTURE Prescriptions as of 12/01/2022 - fluticasone [...] directed for severe allergic reaction - lancets (CircleUCH DELICA PLUS LANCET) 33 gauge Test blood sugar(s) 1 times daily. Dx: Type 2 DM - Controlled E11.9 Insulin: No - blood sugar diagnostic (CircleUCH ULTRA TEST) test strip use 1 TEST [...] [M79.7] Cervicalgia [M54.2] 04/07/2021 Encounter Status:Closed by ArkamiMILY on 12/01/22 [facility] 11-20-2022 Miscellaneous Notes The following approved medication requests have been transmitted electronically. Requested Prescriptions Signed Prescriptions Disp Refills fluticasone (FLONASE) 50 mcg/actuation nasal spray 1 Each 3 Sig: Use 2 Sprays in each nostril once daily. Travon Cerrato APRN.CNP Last office visit: 09/14/22 Next appointment scheduled: 12/14/22 Patient phones requesting refills as follows: Requested Prescriptions Pending Prescriptions Disp Refills fluticasone (FLONASE) 50 mcg/actuation nasal spray 1 Each 3 Sig: Use 2 Sprays in each nostril once daily. Deepti Hedrick LPN documented in this encounter [facility] 11-10-2022 Miscellaneous Notes November 13, 2022 PID: [id number] Cassia Holland [address] [place] [address] Dear Lloyd Holland, We are pleased to inform you [...] report will be kept on file at [facility] as part of your permanent medical record and are available for your continuing care. Thank you for allowing us to help in meeting your health care needs. Sincerely, Dr. Elam Interpreting Radiologist [facility] (Normal over 40) documented in this encounter [facility] 10-30-2022 Miscellaneous Notes Patient has been identified [...] Michelle Judd LPN documented in this encounter [facility] 10-12-2022 Note HNO ID: [id number] Author: Chahya Crowe MD Service: ? Author Type: Physician Type: Progress Notes Filed: 10/12/2022 10:57 AM Note Text: Machine Icer offered: Patient declines. Cassia is a 57 year old who presents for an annual gynecologic exam with complaints, fatigue . Postmenopausal: Yes HRT use: No. History of abnormal pap: No - no LEEP or CKC Last mammogram: 2021 had diagnostic imaging, dense breast tissue Patient concerns for STD exposure: No. OB History T0 L0 SAB0 IAB0 Ectopic0 Multiple0 Live Births0 Chief Investigator History LMP: Hysterectomy Age at Menarche: Age at First : Age at Menopause: Chief Investigator History Comments: Sexual Activity: Not Currently; No [...] and swelling present, normal Bartholin's glands, urethra, [place]'s glands, no vulvar lesions, good vaginal support, [...] or sooner as needed Chhaya Crowe DO [facility] 10-12-2022 Instructions Chhaya Crowe MD - 10/12/2022 10:49 AM EDT - Use prescribed creams BID for 2 weeks. If symptoms return, call the office for a follow up appointment and would recommend biopsy at that time. If symptoms improve, can start estrogen cream nightly for 2 weeks and then 2 days a week documented in this encounter [facility] 10-12-2022 History of Present illness Narrative Machine Icer offered: Patient declines. Cassia is a 57 year old who presents for an annual gynecologic exam with complaints, fatigue . Postmenopausal: Yes HRT use: No. History of abnormal pap: No - no LEEP or CKC Last mammogram: 2021 had diagnostic imaging, dense breast tissue Patient concerns for STD exposure: No. OB History T0 L0 SAB0 IAB0 Ectopic0 Multiple0 Live Births0 Chief Investigator History LMP: Hysterectomy Age at Menarche: Age at First : Age at Menopause: Chief Investigator History Comments: Sexual Activity: Not Currently; No [...] and swelling present, normal Bartholin's glands, urethra, [place]al[place]'s glands, no vulvar lesions, good vaginal support, [...] Chhaya Crowe DO documented in this encounter [facility] 10-09-2022 Miscellaneous Notes Patient has been identified [...] Michelle Judd LPN documented in this encounter [facility] 09-21-2022 Note HNO ID: [id number] Author: Ariadna Pérez RDMS Service: ? Author Type: Nurse School Type: Progress Notes Filed: 09/21/2022 7:32 AM Note Text: Radiology Service Progress Note PATIENT NAME: Cassia HERRINGN: [id number] DATE OF SERVICE: September 21, 2022 TIME: [...] Pérez RDMS September 21, 2022 7:31 AM [facility] 09-21-2022 History of Present illness Narrative [...] 2022 7:31 AM documented in this encounter [facility] 09-14-2022 Note HNO ID: [id number] Author: Leda Brown APRN.ANTHONY Service: ? Author Type: Nurse Practitioner [...] to achy pressure to RUQ. Sees her lacemaker at the end of October for follow [...] in each nost (more content not included)... [facility] 09-14-2022 History of Present illness Narrative [...] a calcium scoring test as ordered by [facility]. Has some dizziness she attributes [...] to achy pressure to RUQ. Sees her lacemaker at the end of October for follow [...] severe allergic reaction^Disp: 2 Each^Rfl: 1 lancets (TritonTOUCH DELICA PLUS LANCET) 33 gauge^Test blood sugar(s) 1 times daily. Dx: Type 2 DM - Controlled E11.9 Insulin: No^Disp: 100 Each^Rfl: 11 blood sugar diagnostic (TritonTOUCH ULTRA TEST) test strip^use 1 TEST STRIP [...] Leda Brown APRN.CNP documented in this encounter [facility] 09-04-2022 Note HNO ID: [id number] Author: Leda Brown APRN.CNP Service: ? Author [...] severe allergic reactionDisp: 2 EachRfl: 1 lancets (CrownPeak DELICA PLUS LANCET) 33 gaugeTest blood sugar(s) 1 times daily. Dx: Type 2 DM - Controlled E11.9 Insulin: NoDisp: 100 EachRfl: 11 blood sugar diagnostic (CircleUCH ULTRA TEST) test stripuse 1 TEST STRIP [...] to both maxill (more content not included)... [facility] 09-04-2022 History of Present illness Narrative [...] severe allergic reaction^Disp: 2 Each^Rfl: 1 lancets (TritonTOUCH DELICA PLUS LANCET) 33 gauge^Test blood sugar(s) 1 times daily. Dx: Type 2 DM - Controlled E11.9 Insulin: No^Disp: 100 Each^Rfl: 11 blood sugar diagnostic (TritonTOUCH ULTRA TEST) test strip^use 1 TEST STRIP [...] Leda Brown APRN.CNP documented in this encounter [facility] 08-28-2022 Miscellaneous Notes Spoke with patient, will come and get labs done. PSS states Endocrinology will coming to [place] in the next month. Please let patient know below information. We can recheck her thyroid levels and continue to monitor this. Once resulted, if abnormal, can send again to [facility] but I can try to have her schedule with endocrinology through [facility] which would require going outside of [place] travel. Thank you Leda Brown APRN.CNP [facility] calling states there was a referral sent over on pt .Doctor viewed this and states no reason for them to see her because all her tests are normal. documented in this encounter [facility] 08-17-2022 Note HNO ID: [id number] Author: Leda Brown APRN.TONGUE AND GROOVE MACHINE SETTER Service: ? Author Type: Nurse Practitioner Type: [...] in the 150s/90s range. Was seen by [facility] few days ago and [...] daily. For 7 (more content not included)... [facility] 08-17-2022 History of Present illness Narrative [...] in the 150s/90s range. Was seen by [facility] few days ago and [...] severe allergic reaction^Disp: 2 Each^Rfl: 1 lancets (TritonTOUCH DELICA PLUS LANCET) 33 gauge^Test blood sugar(s) 1 times daily. Dx: Type 2 DM - Controlled E11.9 Insulin: No^Disp: 100 Each^Rfl: 11 blood sugar diagnostic (TritonTOUCH ULTRA TEST) test strip^use 1 TEST STRIP [...] send to endocrinology, patient wants faxed to [facility] - CONSULT TO ENDOCRINOLOGY 2. History [...] Leda Brown APRN.CNP documented in this encounter [facility] 07-27-2022 Miscellaneous Notes Noted. Leda Brown APRN.CNP Faxed cardiology referral to [facility], per patient request. States it is more convenient for her to see cardiology there. Asking message be sent to Toni Tompkins, to let her know. documented in this encounter [facility] 07-26-2022 Miscellaneous Notes Spoke to pt. States she is unavailable to come on Mondays due to her work schedule. This nurse informed her that we are currently only offering Cardiology in [place] on Mondays. Pt. states she is willing to drive to [place] for Cardiology services and that she will call [facility] to set up Cardio consult there. Alcira [...] be seen sooner. documented in this encounter [facility] 07-26-2022 Miscellaneous Notes Pt called and is [...] evaluation of this. Thank you Leda Brown APRN.CNP documented in this encounter [facility] 07-21-2022 Miscellaneous Notes Patient notified. Please tell cassia Cameron sent an abx , To hold the [...] Christina Ray LPN documented in this encounter [facility] 07-17-2022 Note HNO ID: [id number] Author: Josr Mathews MD Service: ? Author [...] itching. 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 - has an ongoing uti. He is seeing uro-SHEARING MACHINE TENDER and was given Macrobid which she is [...] EPINEPHrine (EPIPEN) 0.3 mg/0.3 mL auto-injector lancets (ONETOUCH DELICA PLUS LANCET) 33 gauge blood sugar diagnostic (ONETOUCH ULTRA TEST) test strip levalbuterol tartrate HFA [...] rationale for treatment. (more content not included)... [facility] 07-17-2022 Miscellaneous Notes Addended by: JOSR MATHEWS on: 07/17/2022 04:48 PM Modules accepted: Orders documented in this encounter [facility] 07-17-2022 History of Present illness Narrative Reason [...] itching. 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 - has an ongoing uti. He is seeing uro-SHEARING MACHINE TENDER and was given Macrobid which she is [...] EPINEPHrine (EPIPEN) 0.3 mg/0.3 mL auto-injector lancets (TritonTOUCH DELICA PLUS LANCET) 33 gauge blood sugar diagnostic (ONETOUCH ULTRA TEST) test strip levalbuterol tartrate HFA [...] Josr Mathews MD documented in this encounter [facility] 07-11-2022 Miscellaneous Notes Patient has been identified [...] Aubree Garcia LPN documented in this encounter [facility] 06-26-2022 Note HNO ID: [id number] Author: Leda Brown APRN.TONGUE AND GROOVE MACHINE SETTER Service: ? Author Type: Nurse Practitioner Type: [...] 1 lancets (ONETOUC (more content not included)... [facility] 06-26-2022 History of Present illness Narrative [...] severe allergic reaction^Disp: 2 Each^Rfl: 1 lancets (TritonTOUCH DELICA PLUS LANCET) 33 gauge^Test blood sugar(s) 1 times daily. Dx: Type 2 DM - Controlled E11.9 Insulin: No^Disp: 100 Each^Rfl: 11 blood sugar diagnostic (TritonTOUCH ULTRA TEST) test strip^use 1 TEST STRIP [...] disorders. Will have her discuss with her storeperson to see if this chronic inflammation is [...] Leda Brown APRN.CNP documented in this encounter [facility] 06-23-2022 Miscellaneous Notes Lab work reviewed. Will review with patient at upcoming visit. Leda Brown APRN.CNP No current lab work completed at [facility]. Last blood work printed and given to provider. Please see if patient has any previous lab work at [facility] to compare current lab results to. Thank you Leda Brown APRN.ANTHONY documented in this encounter [facility] 06-15-2022 History of Present illness Narrative CC: [...] severe allergic reaction^Disp: 2 Each^Rfl: 1 lancets (TritonTOUCH DELICA PLUS LANCET) 33 gauge^Test blood sugar(s) 1 times daily. Dx: Type 2 DM - Controlled E11.9 Insulin: No^Disp: 100 Each^Rfl: 11 blood sugar diagnostic (TritonTOUCH ULTRA TEST) test strip^use 1 TEST STRIP [...] enlargement and left ventricular hypertrophy INTERVALS: Normal GA interval QRS COMPLEX: Normal ST SEGMENT: Normal [...] history of lupus she sees an outside storeperson for so may need to contact office [...] Leda Brown APRN.CNP documented in this encounter [facility] 06-13-2022 Miscellaneous Notes Rec'd approval for nebivolol hcl 06/12/22 to 06/12/23. documented in this encounter [facility] 06-12-2022 Miscellaneous Notes Mauro with [facility] calling and requesting most recent OV note for patient for prior authorization process for [facility]. Faxed as requested to Mauro at [phone]. Marisabel Sarabia RN documented in this encounter [facility] 04-20-2022 Miscellaneous Notes [place] [facility] message sent to patient, no number on paper work to have them Faxed. Please fax papers as requested and then update patient this has been completed. Thank you Leda Brown APRN.ANTHONY documented in this encounter [facility] 04-20-2022 Miscellaneous Notes Addressed in other mychart encounter. Leda Brown APRN.CNP documented in this encounter [facility] 04-19-2022 Miscellaneous Notes See other my chart encounter Leda Brown APRN.CNP documented in this encounter [facility] 04-17-2022 History of Present illness Narrative CC: [...] per directed for severe allergic reaction lancets (ONETOUCH DELICA PLUS LANCET) 33 gauge Test blood sugar(s) 1 times daily. Dx: Type 2 DM - Controlled E11.9 Insulin: No blood sugar diagnostic (TritonTOUCH ULTRA TEST) test strip use 1 TEST [...] Leda Brown APRN.CNP documented in this encounter [facility] 03-17-2022 Miscellaneous Notes Patient requesting Urology referral order and information be faxed to Dr. Wylie's office at [phone]. Faxed as requested. Marisabel Sarabia RN documented in this encounter [facility] 03-17-2022 Miscellaneous Notes See other my chart encounter. Leda Brown APRN.CNP documented in this encounter [facility] 03-09-2022 Miscellaneous Notes Patient phones requesting refills as follows: Requested Prescriptions Pending Prescriptions Disp Refills montelukast (SINGULAIR) 10 mg tablet [Pharmacy Med Name: MONTELUKAST SOD 10 MG TABLET] 30 tablet 11 Sig: take 1 tablet by mouth once daily REGULO-02/14/22 Labs-02/23/22 NOV-07/20/22 med filled 02/07/21 Please review and advise. Yanci Horowitz LPN documented in this encounter [facility] 02-24-2022 Miscellaneous Notes Left detailed message on hopscout. Please let patient know her urine does indicate a UTI. I am starting her on Keflex/Cephalexin twice a day for 7 days. I do not have the culture back yet, but will let her know once I do. Thank you Leda Brown APRN.ANTHONY documented in this encounter [facility] 02-17-2022 Miscellaneous Notes Tracy, Could you please address this, Thanks documented in this encounter [facility] 02-15-2022 Miscellaneous Notes Patient telephoned and made aware. Meg Myers LPN Please call patient and let her know her COVID-19 test and flu testing are negative. Tracy Mendes APRN.ANTHONY documented in this encounter [facility] 02-14-2022 History of Present illness Narrative 02/14/2022 [...] for similar symptoms. Follows with ENT in [place] for allergies. Denies wheezing, dyspnea, nausea, vomiting [...] per directed for severe allergic reaction lancets (CircleUCH DELICA PLUS LANCET) 33 gauge Test blood sugar(s) 1 times daily. Dx: Type 2 DM - Controlled E11.9 Insulin: No blood sugar diagnostic (TritonTOUCH ULTRA TEST) test strip use 1 TEST [...] ER with red flag symptoms Tracy Mendes APRN.ANTHONY Prescription instructions reviewed with patient as applicable. [...] which included preparing to see the patient, [id number] patient care, completing clinical documentation, obtaining and/or reviewing separately obtained history, performing a medically appropriate examination, counseling and educating the patient/family/caregiver, and ordering medications, tests, or procedures. documented in this encounter [facility] 02-07-2022 History of Present illness Narrative Subjective [...] per directed for severe allergic reaction lancets (TritonTOUCH DELICA PLUS LANCET) 33 gauge Test blood [...] Kathy Alejandre APRN.CNP documented in this encounter [facility] 02-07-2022 Instructions Kathy Alejandre APRN.CNP - 02/07/2022 [...] Discussed expected course of illness Kathy Alejandre APRN.TONGUE AND GROOVE MACHINE SETTER How to Manage Common Symptoms Associated with [...] to your local emergency facility: Notify the dehydration plant operator that you are seeking care for [...] be around others. documented in this encounter [facility] 01-19-2022 History of Present illness Narrative CC: [...] per directed for severe allergic reaction lancets (TritonTOUCH DELICA PLUS LANCET) 33 gauge Test blood sugar(s) 1 times daily. Dx: Type 2 DM - Controlled E11.9 Insulin: No blood sugar diagnostic (TritonTOUCH ULTRA TEST) test strip use 1 TEST [...] MO - 64 YRS IM Leda Brown APRN.TONGUE AND GROOVE MACHINE SETTER Prescription instructions reviewed with patient as applicable. Potential red flag symptoms discussed with the patient. Reviewed appropriate action plan to take if red flag symptoms occur. Patient agreeable to treatment plan. Leda Brown APRN.CNP documented in this encounter [facility] 12-19-2021 Miscellaneous Notes Patient has been identified [...] Michelle Judd LPN documented in this encounter [facility] 12-07-2021 Miscellaneous Notes Consult and imaging faxed to provider as requested. Please fax consult to MDs as requested. Thank you Leda Brown APRN.CNP Please call patient to schedule hepatology consult. Thank you eLda Brown APRN.CNP Placed on desk. Please get liver scan results from [facility] and lay on my desk. Thank you Leda Brown APRN.CNP documented in this encounter [facility] 11-20-2021 History of Present illness Narrative Subjective [...] per directed for severe allergic reaction lancets (TritonTOUCH DELICA PLUS LANCET) 33 gauge Test blood [...] Kathy Alejandre APRN.CNP documented in this encounter [facility] 11-20-2021 Instructions Kathy Alejandre APRN.ANTHONY - 11/20/2021 [...] Discussed expected course of illness Kathy Alejandre APRN.TONGUE AND GROOVE MACHINE SETTER Beginning Home Isolation Isolation is used to [...] to your local emergency facility: Notify the dehydration plant operator that you are seeking care for [...] concerning to you. documented in this encounter [facility] 11-16-2021 Miscellaneous Notes Patient has been identified [...] Christina Ray LPN documented in this encounter [facility] 11-02-2021 History of Present illness Narrative Radiology [...] 2021 2:32 PM documented in this encounter [facility] 10-19-2021 Miscellaneous Notes [facility] Ultrasound calling asking for copy of report for RUQ ultrasound and spleen to be faxed to [phone]. Printed reports and faxed as requested. Order faxed. Please fax order to [facility]. Thank you Leda Brown APRN.ANTHONY documented in this encounter [facility] 10-13-2021 History of Present illness Narrative CC: [...] per directed for severe allergic reaction lancets (TritonTOUCH DELICA PLUS LANCET) 33 gauge Test blood [...] will further evaluate. Recent labs reviewed at [facility] and [facility] No recent CMP completed, but CBC without [...] Leda Brown APRN.CNP documented in this encounter [facility] 10-10-2021 History of Present illness Narrative Subjective [...] history is provided by the patient. No motor vehicle parts interpreter was used. UTI This is a new [...] per directed for severe allergic reaction lancets (CrownPeak DELHands-On Mobile PLUS LANCET) 33 gauge Test blood sugar(s) 1 times daily. Dx: Type 2 DM - Controlled E11.9 Insulin: No blood sugar diagnostic (TritonTOUCH ULTRA TEST) test strip use 1 TEST [...] result done 2 days ago at her storeperson office which showed 2+ bacteria, 2+ leukocytes, nitrates. Kathy Alejandre APRN.ANTHONY TEACHING PROVIDER (Physician/PA/VOCATIONAL TRAINING INSTRUCTOR) NOTE OF PERSONAL INVOLVEMENT IN CARE: I have personally seen and examined the patient and performed the medical decision-making components. I have reviewed the Advanced Practice Registered Nurse (VOCATIONAL TRAINING INSTRUCTOR) Student's documentation and verified the findings in the note as written. Any additions or changes are noted in bold/italics. Signature: Kathy Alejandre Date: 10/10/2021 Time: 7:50 PM documented in this encounter [facility] 10-10-2021 Instructions Ximena Narvaez - 10/10/2021 6:27 [...] front to back documented in this encounter [facility] 09-22-2021 Miscellaneous Notes September 22, 2021 PID: [id number] Cassia Holland [address] [place] [address] Dear Ms. Holland, Your recent breast imaging [...] who ordered/prescribed your screening mammogram: Please call [phone] or EXT: [phone] to schedule an appointment for your additional [...] and reports are kept on file at [facility] as part of your permanent medical record, and are available for your continuing care. Thank you for allowing us to help in meeting your health care needs. Sincerely, Dr. Swain Interpreting Radiologist [facility] (Additional imaging) documented in this encounter [facility] 09-19-2021 Instructions Dyana Valadez APRN.CNP - 09/19/2021 3:35 PM EDT 1. Routine course of ibuprofen X 1 week. 2. Ice to the area. 3. If no better or any worsening, let us know. documented in this encounter [facility] 09-19-2021 History of Present illness Narrative This [...] Refers that it is hit or miss. [place] like it may be a little larger [...] per directed for severe allergic reaction lancets (TritonTOUCH DELICA PLUS LANCET) 33 gauge Test blood sugar(s) 1 times daily. Dx: Type 2 DM - Controlled E11.9 Insulin: No blood sugar diagnostic (TritonTOUCH ULTRA TEST) test strip use 1 TEST [...] plan. This note was partially generated using [employer] voice recognition system. Note was reviewed for accuracy. There may be minor misspellings or grammar miscues with Dragon voice recognition. documented in this encounter [facility] 08-08-2021 Miscellaneous Notes NOV 09/15/21 REGULO 06/16/21 [...] Elicia Kidd MA documented in this encounter [facility] Diagnosis Abnormal mammogram- Primary Abnormal mammogram, unspecified [facility]* Diagnosis Frequency of urination- Primary Urinary frequency [facility] Diagnosis Xyphoidalgia- Primary Disorder of bone and cartilage, unspecified RUQ pain Abdominal pain, right upper quadrant Nausea Nausea alone Type 2 diabetes mellitus without complication, without long-term current use of insulin (HCC) [facility] Diagnosis Elevated liver enzymes- Primary Other nonspecific abnormal serum enzyme levels Fatty liver Other chronic nonalcoholic liver disease [facility] Diagnosis Mastalgia Mastodynia [facility] Diagnosis Sore throat- Primary Acute pharyngitis Exposure to COVID-19 virus [facility]* Diagnosis Liver fibrosis- Primary Cirrhosis of liver without mention of alcohol Elevated liver enzymes Other nonspecific abnormal serum enzyme levels [facility] Diagnosis Type 2 diabetes mellitus without complication, without long-term current use of insulin ([facility])- Primary Hypertension, unspecified type Interstitial lung disease (HCC) Postinflammatory pulmonary fibrosis Mixed hyperlipidemia Bacteria in urine Other nonspecific finding on examination of urine Leukocytes in urine Other cells and casts in urine Acute non-recurrent sinusitis, unspecified location Need for influenza vaccination Need for prophylactic vaccination and inoculation against influenza [facility]* Diagnosis Suspected COVID-19 virus infection- Primary [facility]* Diagnosis Upper respiratory symptom- Primary Other symptoms involving respiratory system and chest UTI symptoms Other symptoms involving urinary system documented in this encounter [facility] note* Diagnosis Type 2 diabetes mellitus without complication, without long-term current use of insulin ([facility]) documented in this encounter [facility] note* Diagnosis Other acute sinusitis, recurrence not specified- Primary documented in this encounter [facility] note* Diagnosis Fatigue, unspecified type- Primary Acute cough Shortness of breath [facility] Diagnosis Type 2 diabetes mellitus without complication, without long-term current use of insulin ([facility]) documented in this encounter [facility] note* Diagnosis Chest pain, unspecified type- Primary Palpitations Headaches Type 2 diabetes mellitus without complication, without long-term current use of insulin ([facility]) Hypertension, unspecified type documented in this encounter [facility] note* Diagnosis Chest pain, unspecified type- Primary Palpitations Type 2 diabetes mellitus without complication, without long-term current use of insulin ([facility]) Hypertension, unspecified type Xyphoidalgia Disorder of bone and cartilage, unspecified Headaches documented in this encounter [facility] note* Diagnosis Viral illness- Primary Unspecified viral infection, in conditions classified elsewhere and of unspecified site [facility]* Diagnosis SVT (supraventricular tachycardia) ([facility])- Primary Other specified cardiac dysrhythmias [facility]* Diagnosis Graves disease- Primary Toxic diffuse goiter without mention of thyrotoxic crisis or storm History of Srini thyroiditis Personal history of other endocrine, metabolic, and immunity disorders Hypertension, unspecified type Acute non-recurrent maxillary sinusitis [facility]* Diagnosis Graves disease- Primary Toxic diffuse goiter without mention of thyrotoxic crisis or storm History of Srini thyroiditis Personal history of other endocrine, metabolic, and immunity disorders Palpitations [facility]* Diagnosis Acute recurrent sinusitis, unspecified location- Primary [facility]* Diagnosis Type 2 diabetes mellitus without complication, without long-term current use of insulin (HCC)- Primary Hypertension, unspecified type Liver fibrosis Cirrhosis of liver without mention of alcohol RUQ pain Abdominal pain, right upper quadrant Vaginal candidiasis Candidiasis of vulva and vagina Palpitations [facility]* Diagnosis Encounter for gynecological examination (general) (routine) without abnormal findings- Primary Encounter for screening mammogram for breast cancer Vaginal itching Pruritus of genital organs Dense breast tissue on mammogram Vulvar itching Pruritus of genital organs Vulvar candidiasis Candidiasis of vulva and vagina [facility]* Diagnosis Diabetes (HCC) Type II or unspecified type diabetes mellitus without mention of complication, not stated as uncontrolled [facility]* Diagnosis Leg swelling- Primary Swelling of limb [facility]* Diagnosis Bacterial sinusitis- Primary Unspecified sinusitis (chronic) [facility]* Diagnosis Cellulitis of right lower extremity- Primary Cellulitis and abscess of leg, except foot Subacute sinusitis, unspecified location RUQ pain Abdominal pain, right upper quadrant Liver fibrosis Cirrhosis of liver without mention of alcohol Type 2 diabetes mellitus without complication, without long-term current use of insulin (HCC) [facility]* Diagnosis Cellulitis of right lower extremity- Primary Cellulitis and abscess of leg, except foot Dependent edema Edema [facility]* Diagnosis Procedure not carried out- Primary Procedure not carried out for other reasons [facility]* Diagnosis New onset a-fib (HCC)- Primary Atrial fibrillation Type 2 diabetes mellitus without complication, without long-term current use of insulin (HCC) [facility]* Diagnosis Encounter for screening mammogram for breast cancer Dense breast tissue on mammogram [facility]* Diagnosis Liver fibrosis Cirrhosis of liver without mention of alcohol [facility]* Diagnosis Chronic sinusitis, unspecified location- Primary documented in this encounter [facility] note* Diagnosis New onset a-fib (HCC)- Primary Atrial fibrillation documented in this encounter [facility] note* Diagnosis Viral illness- Primary Unspecified viral infection, in conditions classified elsewhere and of unspecified site documented in this encounter [facility] note* Diagnosis Type 2 diabetes mellitus without complication, without long-term current use of insulin (HCC) documented in this encounter [facility] for referral (narrative)* Diagnostic Procedure Only (Routine) - Pending Review Specialty Diagnoses / Procedures Referred By Contac t Referred To Contact [facility] Diagnoses Abnormal mammogram Procedures MIN DIAGNOSTIC RT DIAGNOSTIC MAMMOGRAPHY COMPUTER-AIDED DETCJ UNI Hui Lewis APRN.CNP [address] [place] [address] [facility] [address] [place] [address] Referral ID Status Reason Start Date Expiration Date Visits Requested Visits Authorized [id number] Pending Review Auto-Generat ed Referral 09/26/2021 10/26/2022 1 1 * Diagnostic Procedure Only (Routine) - Pending Review Specialty Diagnoses / Procedures Referred By Maeganac t Referred To Contact [facility] Diagnoses Abnormal mammogram Procedures US BREAST LTD RT US BREAST UNI REAL TIME WITH IMAGE LIMITED Hui Lewis APRN.CNP [address] [place] [address] [facility] [address] [place] [address] Referral ID Status Reason Start Date Expiration Date Visits Requested Visits Authorized [id number] Pending Review Auto-Generat ed Referral 09/26/2021 10/26/2022 1 1 [facility] for referral (narrative)* Diagnostic Procedure Only (Routine) - Closed Specialty Diagnoses / Procedures Referred By Contac t Referred To Contact XR IMAGING Diagnoses Type 2 diabetes mellitus without complication, without long-term current use of insulin (HCC) Procedures XR STERNUM 2V DESAI/LAT RADEX STERNUM MINIMUM 2 VIEWS Leda Brown APRN.[employer]UE [employer] MACHINE SETTER [address] [place] [address] Xr Imaging Referral ID Status Reason Start Date Expiration Date V isits Requested Visits Authorized [id number] Closed Auto-Generate d Referral 10/13/2021 05/06/2022 1 1 * Diagnostic Procedure Only (Routine) - Closed Specialty Diagnoses / Procedures Referred By Contac t Referred To Contact [facility] Diagnoses Type 2 diabetes mellitus without complication, without long-term current use of insulin (HCC) RUQ pain Nausea Procedures US ABD RT UPPER QUADRANT US ABDOMINAL REAL TIME W/IMAGE LIMITED Leda Brown APRN.[employer] AND [employer] MACHINE SETTER [address] [place] [address] Us Imaging Referral ID Status Reason Start Date Expiration Date V isits Requested Visits Authorized [id number] Closed Auto-Generate d Referral 10/13/2021 05/06/2022 1 1 [facility] for referral (narrative)* Outpatient Procedure (Routine) - Pending Review Specialty Diagnoses / Procedures Referred By Contac t Referred To Contact [facility] Diagnoses Elevated liver enzymes Fatty liver Procedures DDI VIBRATION CONTROLLED TRANSIENT ELASTOGRAPHY (VCTE) LIVER ELASTOGRAPHY W/O IMAG W/I&R Leda Brown APRN.[employer] MACHINE SETTER [address] [place] [address] [facility] [address] [place] [address] Referral ID Status Reason Start Date Expiration Date Visits Requested Visits Authorized [id number] Pending Review Auto-Generat ed Referral 10/17/2021 10/17/2022 1 1 [facility] for referral (narrative)* Outpatient Procedure (Routine) - Pending Review Specialty Diagnoses / Procedures Referred By Contac t Referred To Contact [facility] Diagnoses Chest pain, unspecified type Palpitations Procedures ECG COMPLETE ECG ROUTINE ECG W/LEAST 12 LDS W/I&R Leda Brown APRN.[employer] MACHINE SETTER [address] [place] [address] [facility] [address] [place] [id number] Referral ID Status Reason Start Date Expiration Date Visits Requested Visits Authorized [id number] Pending Review Auto-Generat ed Referral 06/15/2022 06/15/2023 1 1 * Consult, Test, Treat (Routine) - Authorized Specialty Diagnoses / Procedures Referred By Contac t Referred To Contact [facility] Diagnoses Chest pain, unspecified type Palpitations Procedures ECHO ECHO TTHRC R-T 2D W/WOM-MODE COMPL SPEC&COLR D Leda Brown APRN.[employer] MACHINE SETTER [address] [place] [address] [address] Referral ID Status Reason Start Date Expiration Date Visits Requested Visits Authorized [id number] Authorized Auto-Generat ed Referral 06/22/2022 05/06/2023 1 1 [facility] Diagnostic Procedure Only (Routine) - Authorized Specialty Diagnoses / Procedures Referred By Contac t Referred To Contact [facility] Diagnoses Liver fibrosis Procedures US ABD RIGHT UPPER QUADRANT US ABDOMINAL REAL TIME W/IMAGE LIMITED Leda Brown APRN.[employer] MACHINE SETTER [address] [place] [address] Us Imaging Referral ID Status Reason Start Date Expiration Date Visits Requested Visits Authorized [id number] Authorized Auto-Generat ed Referral 09/21/2022 05/06/2023 1 1 [facility] for referral (narrative)* Diagnostic Procedure Only (Routine) - Authorized Specialty Diagnoses / Procedures Referred By Contac t Referred To Contact [facility] Diagnoses Encounter for screening mammogram for breast cancer Dense breast tissue on mammogram Procedures MIN SCREENING W ROBERT SCREENING DIGITAL BREAST TOMOSYNTHESIS BI SCREENING MAMMOGRAPHY BI 2-VIEW BREAST INC Chhaya Hernandez MD [address] [place] [address] [facility] [address] [place] [address] Referral ID Status Reason Start Date Expiration Date Visits Requested Visits Authorized [id number] Authorized Auto-Generat ed Referral 11/09/2022 05/06/2023 1 1 [facility] for referral (narrative)* Diagnostic Procedure Only (Routine) - Closed Specialty Diagnoses / Procedures Referred By Abeba t Referred To Contact [facility] Diagnoses Encounter for screening mammogram for breast cancer Dense breast tissue on mammogram Procedures MIN SCREENING W ROBERT SCREENING DIGITAL BREAST TOMOSYNTHESIS BI SCREENING MAMMOGRAPHY BI 2-VIEW BREAST INC Chhaya Hernandez MD [address] [place] [address] [facility] [address] [place] [address] Referral ID Status Reason Start Date Expiration Date V isits Requested Visits Authorized [id number] Closed Auto-Generate d Referral 11/09/2022 05/06/2023 1 1 [facility] for referral (narrative)* Diagnostic Procedure Only (Routine) - Closed Specialty Diagnoses / Procedures Referred By Contac t Referred To Contact [facility] Diagnoses Liver fibrosis Procedures US ABD RIGHT UPPER QUADRANT US ABDOMINAL REAL TIME W/IMAGE LIMITED Leda Brown APRN.CNP [address] [place] [address] Us Imaging [facility] Referral ID Status Reason Start Date Expiration Date V isits Requested Visits Authorized [id number] Closed Auto-Generate d Referral 09/21/2022 05/06/2023 1 1 [facility] for visit Narrative* Diagnostic Procedure Only (Routine) - Closed Specialty Diagnoses / Procedures Referred By Contac t Referred To Contact [facility] Diagnoses Encounter for screening mammogram for breast cancer Dense breast tissue on mammogram Procedures MIN SCREENING W ROBERT SCREENING DIGITAL BREAST TOMOSYNTHESIS BI SCREENING MAMMOGRAPHY BI 2-VIEW BREAST INC Chhaya Hernandez MD [address] [place] [address] [facility] [address] [place] [address] Referral ID Status Reason Start Date Expiration Date V isits Requested Visits Authorized [id number] Closed Auto-Generate d Referral 11/09/2022 05/06/2023 1 1 [facility] Summary Purpose Family History No Family History [...] CONSULT TO HEPATOLOGY OFFICE/OUTPATIENT [facility] 60-74 MINUTES Leda Brown APRN.[employer] MACHINE SETTER [address] [place] [address] Referral ID Status Reason Start Date Expiration Date Visits Requested Visits Authorized [id number] Pending Review PCP Requested Referral 11/11/2021 11/11/2022 1 1 Specialty Diagnoses / Procedures Referred By Contac t Referred To Contact Leda Brown APRN.[employer] MACHINE SETTER [address] [place] [address] Referral ID Status Reason Start Date Expiration Date V isits Requested Visits Authorized [id number] Pending Review 1 1 Specialty Diagnoses / Procedures Referred By Contac t Referred To Contact Cardiology Diagnoses SVT (supraventricular tachycardia) (HCC) Procedures CONSULT TO CARDIOLOGY OFFICE/OUTPATIENT [facility] 60-74 MINUTES Leda Brown APRN.[employer]ONG[employer] MACHINE SETTER [address] [place] [address] Referral ID Status Reason Start Date Expiration Date Visits Requested Visits Authorized [id number] Pending Review PCP Requested Referral 07/26/2022 07/26/2023 1 1 Specialty Diagnoses / Procedures Referred By Contac t Referred To Contact Endocrinology Diagnoses Graves disease History of Srini thyroiditis Procedures CONSULT TO ENDOCRINOLOGY OFFICE/OUTPATIENT NEW HIGH MDM 60-74 MINUTES Leda Brown APRN.[employer]ONG[employer] MACHINE SETTER [address] [place] [address] Referral ID Status Reason Start Date Expiration Date Visits Requested Visits Authorized [id number] Pending Review PCP Requested Referral 08/17/2022 08/17/2023 [...] DATE CREATED AUTHOR AUTHOR'S ORGANIZ ATION 04/06/2023 [facility] DATE CREATED AUTHOR AUTHOR'S ORGANIZ ATION 04/15/2023 [facility] DATE CREATED AUTHOR AUTHOR'S ORGANIZ ATION 06/15/2023 [facility] Source Comments (unrecognize d section and content) In the event this informatio n is protected by the Federal Confidentiality of Alcohol and Drug Abuse Patient Records regulations: The Federal rules restrict any use of the information to criminally investigate or prosecute any alcohol or drug abuse patient.[facility] the event this information is protected by the Federal Confidentiality of Alcohol and Drug Abuse Patient Records regulations: The Federal rules restrict any use of the information to criminally investigate or prosecute any alcohol or drug abuse patient.[facility] the event this information is protected by the Federal Confidentiality of Alcohol and Drug Abuse Patient Records regulations: The Federal rules restrict any use of the information to criminally investigate or prosecute any alcohol or drug abuse patient.[facility] the event this information is protected by the Federal Confidentiality of Alcohol and Drug Abuse Patient Records regulations: The Federal rules restrict any use of the information to criminally investigate or prosecute any alcohol or drug abuse patient.[facility] the event this information is protected by the Federal Confidentiality of Alcohol and Drug Abuse Patient Records regulations: The Federal rules restrict any use of the information to criminally investigate or prosecute any alcohol or drug abuse patient.[facility] the event this information is protected by the Federal Confidentiality of Alcohol and Drug Abuse Patient Records regulations: The Federal rules restrict any use of the information to criminally investigate or prosecute any alcohol or drug abuse patient.[facility] the event this information is protected by the Federal Confidentiality of Alcohol and Drug Abuse Patient Records regulations: The Federal rules restrict any use of the information to criminally investigate or prosecute any alcohol or drug abuse patient.[facility] the event this information is protected by the Federal Confidentiality of Alcohol and Drug Abuse Patient Records regulations: The Federal rules restrict any use of the information to criminally investigate or prosecute any alcohol or drug abuse patient.[facility] the event this information is protected by the Federal Confidentiality of Alcohol and Drug Abuse Patient Records regulations: The Federal rules restrict any use of the information to criminally investigate or prosecute any alcohol or drug abuse patient.[facility] the event this information is protected by the Federal Confidentiality of Alcohol and Drug Abuse Patient Records regulations: The Federal rules restrict any use of the information to criminally investigate or prosecute any alcohol or drug abuse patient.[facility] the event this information is protected by the Federal Confidentiality of Alcohol and Drug Abuse Patient Records regulations: The Federal rules restrict any use of the information to criminally investigate or prosecute any alcohol or drug abuse patient.[facility] Health[facility] the event this information is protected by the Federal Confidentiality of Alcohol and Drug Abuse Patient Records regulations: The Federal rules restrict any use of the information to criminally investigate or prosecute any alcohol or drug abuse patient.[facility] the event this information is protected by the Federal Confidentiality of Alcohol and Drug Abuse Patient Records regulations: The Federal rules restrict any use of the information to criminally investigate or prosecute any alcohol or drug abuse patient.[facility] HealthIn the event this information is protected by the Federal Confidentiality of Alcohol and Drug Abuse Patient Records regulations: The Federal rules restrict any use of the information to criminally investigate or prosecute any alcohol or drug abuse patient.[facility] Health[facility] the event this information is protected by the Federal Confidentiality of Alcohol and Drug Abuse Patient Records regulations: The Federal rules restrict any use of the information to criminally investigate or prosecute any alcohol or drug abuse patient.[facility] HealthIn the event this information is protected by the Federal Confidentiality of Alcohol and Drug Abuse Patient Records regulations: The Federal rules restrict any use of the information to criminally investigate or prosecute any alcohol or drug abuse patient.[facility] HealthIn the event this information is protected by the Federal Confidentiality of Alcohol and Drug Abuse Patient Records regulations: The Federal rules restrict any use of the information to criminally investigate or prosecute any alcohol or drug abuse patient.[facility] HealthIn the event this information is protected by the Federal Confidentiality of Alcohol and Drug Abuse Patient Records regulations: The Federal rules restrict any use of the information to criminally investigate or prosecute any alcohol or drug abuse patient.[facility] HealthIn the event this information is protected by the Federal Confidentiality of Alcohol and Drug Abuse Patient Records regulations: The Federal rules restrict any use of the information to criminally investigate or prosecute any alcohol or drug abuse patient.[facility] HealthIn the event this information is protected by the Federal Confidentiality of Alcohol and Drug Abuse Patient Records regulations: The Federal rules restrict any use of the information to criminally investigate or prosecute any alcohol or drug abuse patient.[facility] HealthIn the event this information is protected by the Federal Confidentiality of Alcohol and Drug Abuse Patient Records regulations: The Federal rules restrict any use of the information to criminally investigate or prosecute any alcohol or drug abuse patient.[facility] HealthIn the event this information is protected by the Federal Confidentiality of Alcohol and Drug Abuse Patient Records regulations: The Federal rules restrict any use of the information to criminally investigate or prosecute any alcohol or drug abuse patient.[facility] HealthIn the event this information is protected by the Federal Confidentiality of Alcohol and Drug Abuse Patient Records regulations: The Federal rules restrict any use of the information to criminally investigate or prosecute any alcohol or drug abuse patient.[facility] HealthIn the event this information is protected by the Federal Confidentiality of Alcohol and Drug Abuse Patient Records regulations: The Federal rules restrict any use of the information to criminally investigate or prosecute any alcohol or drug abuse patient.[facility] HealthIn the event this information is protected by the Federal Confidentiality of Alcohol and Drug Abuse Patient Records regulations: The Federal rules restrict any use of the information to criminally investigate or prosecute any alcohol or drug abuse patient.[facility]In the event this information is protected by the Federal Confidentiality of Alcohol and Drug Abuse Patient Records regulations: The Federal rules restrict any use of the information to criminally investigate or prosecute any alcohol or drug abuse patient.[facility] HealthIn the event this information is protected by the Federal Confidentiality of Alcohol and Drug Abuse Patient Records regulations: The Federal rules restrict any use of the information to criminally investigate or prosecute any alcohol or drug abuse patient.[facility] HealthIn the event this information is protected by the Federal Confidentiality of Alcohol and Drug Abuse Patient Records regulations: The Federal rules restrict any use of the information to criminally investigate or prosecute any alcohol or drug abuse patient.[facility] HealthIn the event this information is protected by the Federal Confidentiality of Alcohol and Drug Abuse Patient Records regulations: The Federal rules restrict any use of the information to criminally investigate or prosecute any alcohol or drug abuse patient.[facility]In the event this information is protected by the Federal Confidentiality of Alcohol and Drug Abuse Patient Records regulations: The Federal rules restrict any use of the information to criminally investigate or prosecute any alcohol or drug abuse patient.[facility] HealthIn the event this information is protected by the Federal Confidentiality of Alcohol and Drug Abuse Patient Records regulations: The Federal rules restrict any use of the information to criminally investigate or prosecute any alcohol or drug abuse patient.[facility]In the event this information is protected by the Federal Confidentiality of Alcohol and Drug Abuse Patient Records regulations: The Federal rules restrict any use of the information to criminally investigate or prosecute any alcohol or drug abuse patient.[facility]In the event this information is protected by the Federal Confidentiality of Alcohol and Drug Abuse Patient Records regulations: The Federal rules restrict any use of the information to criminally investigate or prosecute any alcohol or drug abuse patient.[facility]In the event this information is protected by the Federal Confidentiality of Alcohol and Drug Abuse Patient Records regulations: The Federal rules restrict any use of the information to criminally investigate or prosecute any alcohol or drug abuse patient.[facility]In the event this information is protected by the Federal Confidentiality of Alcohol and Drug Abuse Patient Records regulations: The Federal rules restrict any use of the information to criminally investigate or prosecute any alcohol or drug abuse patient.[facility] HealthIn the event this information is protected by the Federal Confidentiality of Alcohol and Drug Abuse Patient Records regulations: The Federal rules restrict any use of the information to criminally investigate or prosecute any alcohol or drug abuse patient.[facility] HealthIn the event this information is protected by the Federal Confidentiality of Alcohol and Drug Abuse Patient Records regulations: The Federal rules restrict any use of the information to criminally investigate or prosecute any alcohol or drug abuse patient.[facility] HealthIn the event this information is protected by the Federal Confidentiality of Alcohol and Drug Abuse Patient Records regulations: The Federal rules restrict any use of the information to criminally investigate or prosecute any alcohol or drug abuse patient.[facility] HealthIn the event this information is protected by the Federal Confidentiality of Alcohol and Drug Abuse Patient Records regulations: The Federal rules restrict any use of the information to criminally investigate or prosecute any alcohol or drug abuse patient.[facility] HealthIn the event this information is protected by the Federal Confidentiality of Alcohol and Drug Abuse Patient Records regulations: The Federal rules restrict any use of the information to criminally investigate or prosecute any alcohol or drug abuse patient.[facility] HealthIn the event this information is protected by the Federal Confidentiality of Alcohol and Drug Abuse Patient Records regulations: The Federal rules restrict any use of the information to criminally investigate or prosecute any alcohol or drug abuse patient.[facility] HealthIn the event this information is protected by the Federal Confidentiality of Alcohol and Drug Abuse Patient Records regulations: The Federal rules restrict any use of the information to criminally investigate or prosecute any alcohol or drug abuse patient.[facility] HealthIn the event this information is protected by the Federal Confidentiality of Alcohol and Drug Abuse Patient Records regulations: The Federal rules restrict any use of the information to criminally investigate or prosecute any alcohol or drug abuse patient.[facility] HealthIn the event this information is protected by the Federal Confidentiality of Alcohol and Drug Abuse Patient Records regulations: The Federal rules restrict any use of the information to criminally investigate or prosecute any alcohol or drug abuse patient.[facility] HealthIn the event this information is protected by the Federal Confidentiality of Alcohol and Drug Abuse Patient Records regulations: The Federal rules restrict any use of the information to criminally investigate or prosecute any alcohol or drug abuse patient.[facility] HealthIn the event this information is protected by the Federal Confidentiality of Alcohol and Drug Abuse Patient Records regulations: The Federal rules restrict any use of the information to criminally investigate or prosecute any alcohol or drug abuse patient.[facility] HealthIn the event this information is protected by the Federal Confidentiality of Alcohol and Drug Abuse Patient Records regulations: The Federal rules restrict any use of the information to criminally investigate or prosecute any alcohol or drug abuse patient.[facility] HealthIn the event this information is protected by the Federal Confidentiality of Alcohol and Drug Abuse Patient Records regulations: The Federal rules restrict any use of the information to criminally investigate or prosecute any alcohol or drug abuse patient.[facility] HealthIn the event this information is protected by the Federal Confidentiality of Alcohol and Drug Abuse Patient Records regulations: The Federal rules restrict any use of the information to criminally investigate or prosecute any alcohol or drug abuse patient.[facility] HealthIn the event this information is protected by the Federal Confidentiality of Alcohol and Drug Abuse Patient Records regulations: The Federal rules restrict any use of the information to criminally investigate or prosecute any alcohol or drug abuse patient.[facility] HealthIn the event this information is protected by the Federal Confidentiality of Alcohol and Drug Abuse Patient Records regulations: The Federal rules restrict any use of the information to criminally investigate or prosecute any alcohol or drug abuse patient.[facility] HealthIn the event this information is protected by the Federal Confidentiality of Alcohol and Drug Abuse Patient Records regulations: The Federal rules restrict any use of the information to criminally investigate or prosecute any alcohol or drug abuse patient.[facility] HealthIn the event this information is protected by the Federal Confidentiality of Alcohol and Drug Abuse Patient Records regulations: The Federal rules restrict any use of the information to criminally investigate or prosecute any alcohol or drug abuse patient.[facility] HealthIn the event this information is protected by the Federal Confidentiality of Alcohol and Drug Abuse Patient Records regulations: The Federal rules restrict any use of the information to criminally investigate or prosecute any alcohol or drug abuse patient.[facility] HealthIn the event this information is protected by the Federal Confidentiality of Alcohol and Drug Abuse Patient Records regulations: The Federal rules restrict any use of the information to criminally investigate or prosecute any alcohol or drug abuse patient.[facility] HealthIn the event this information is protected by the Federal Confidentiality of Alcohol and Drug Abuse Patient Records regulations: The Federal rules restrict any use of the information to criminally investigate or prosecute any alcohol or drug abuse patient.[facility] HealthIn the event this information is protected by the Federal Confidentiality of Alcohol and Drug Abuse Patient Records regulations: The Federal rules restrict any use of the information to criminally investigate or prosecute any alcohol or drug abuse patient.[facility] HealthIn the event this information is protected by the Federal Confidentiality of Alcohol and Drug Abuse Patient Records regulations: The Federal rules restrict any use of the information to criminally investigate or prosecute any alcohol or drug abuse patient.[facility] HealthIn the event this information is protected by the Federal Confidentiality of Alcohol and Drug Abuse Patient Records regulations: The Federal rules restrict any use of the information to criminally investigate or prosecute any alcohol or drug abuse patient.[facility] HealthIn the event this information is protected by the Federal Confidentiality of Alcohol and Drug Abuse Patient Records regulations: The Federal rules restrict any use of the information to criminally investigate or prosecute any alcohol or drug abuse patient.[facility] HealthIn the event this information is protected by the Federal Confidentiality of Alcohol and Drug Abuse Patient Records regulations: The Federal rules restrict any use of the information to criminally investigate or prosecute any alcohol or drug abuse patient.[facility] HealthIn the event this information is protected by the Federal Confidentiality of Alcohol and Drug Abuse Patient Records regulations: The Federal rules restrict any use of the information to criminally investigate or prosecute any alcohol or drug abuse patient.[facility] HealthIn the event this information is protected by the Federal Confidentiality of Alcohol and Drug Abuse Patient Records regulations: The Federal rules restrict any use of the information to criminally investigate or prosecute any alcohol or drug abuse patient.[facility] HealthIn the event this information is protected by the Federal Confidentiality of Alcohol and Drug Abuse Patient Records regulations: The Federal rules restrict any use of the information to criminally investigate or prosecute any alcohol or drug abuse patient.[facility] HealthIn the event this information is protected by the Federal Confidentiality of Alcohol and Drug Abuse Patient Records regulations: The Federal rules restrict any use of the information to criminally investigate or prosecute any alcohol or drug abuse patient.[facility] HealthIn the event this information is protected by the Federal Confidentiality of Alcohol and Drug Abuse Patient Records regulations: The Federal rules restrict any use of the information to criminally investigate or prosecute any alcohol or drug abuse patient.[facility] HealthIn the event this information is protected by the Federal Confidentiality of Alcohol and Drug Abuse Patient Records regulations: The Federal rules restrict any use of the information to criminally investigate or prosecute any alcohol or drug abuse patient.[facility] HealthIn the event this information is protected by the Federal Confidentiality of Alcohol and Drug Abuse Patient Records regulations: The Federal rules restrict any use of the information to criminally investigate or prosecute any alcohol or drug abuse patient.[facility] HealthIn the event this information is protected by the Federal Confidentiality of Alcohol and Drug Abuse Patient Records regulations: The Federal rules restrict any use of the information to criminally investigate or prosecute any alcohol or drug abuse patient.[facility] HealthIn the event this information is protected by the Federal Confidentiality of Alcohol and Drug Abuse Patient Records regulations: The Federal rules restrict any use of the information to criminally investigate or prosecute any alcohol or drug abuse patient.[facility] HealthIn the event this information is protected by the Federal Confidentiality of Alcohol and Drug Abuse Patient Records regulations: The Federal rules restrict any use of the information to criminally investigate or prosecute any alcohol or drug abuse patient.[facility] HealthIn the event this information is protected by the Federal Confidentiality of Alcohol and Drug Abuse Patient Records regulations: The Federal rules restrict any use of the information to criminally investigate or prosecute any alcohol or drug abuse patient.[facility] Reason for Visit (unrecogniz ed section and content) Reason Comments Acute Visit lump on sternum x 1 week Specialty Diagnoses / Procedures Referred By Contac t Referred To Contact Internal Medicine / INTERNAL MEDICINE Diagnoses 3 month follow up Procedures 4C EST Leda Brown APRN.TONGUE AND GROOVE MACHINE SETTER [address] [place] [address] Josr Mathews MD [address] [place] [address] Referral ID Status Reason Start Date Expiration Date Visits Re quested Visits Authorized [id number] Closed 09/15/2021 12/14/2021 1 1 Reason Comments Orders Reason Comments UTI frquency of urinatio n x 2 days Specialty Diagnoses / Procedures Referred By Contac t Referred To Contact [facility] Diagnoses uti symptoms x2days Procedures EST SAME DAY Self Express [facility] [address] [address] [place] [address] Referral ID Status Reason Start Date Expiration Date V isits Requested Visits Authorized [id number] Outside PCP 10/10/2021 01/08/2022 1 1 Reason Comments Recheck 3 month follow up Specialty Diagnoses / Procedures Referred By Contac t Referred To Contact Internal Medicine / INTERNAL MEDICINE Diagnoses RED SPOTS HANDS AND RT SHOULDER AND FOOT Procedures EST Josr Mcdonald MD [address] [place] [address] Josr Mathews MD [address] [place] [address] Referral ID Status Reason Start Date Expiration Date V isits Requested Visits Authorized [id number] Authorized 11/24/2020 11/24/2021 99 99 Specialty Diagnoses / Procedures Referred By Contac t Referred To Contact [facility] Diagnoses Encounter for general adult medical examination without abnormal findings mamm Procedures SCREENING MAMMOGRAPHY BI 2-VIEW BREAST INC CAD mamm Hui Lewis, VOCATIONAL TRAINING INSTRUCTOR.TONGUE AND GROOVE MACHINE SETTER [address] [place] [address] Relief Operator [address] [address] Referral ID Status Reason Start Date Expiration Date V isits Requested Visits Authorized [id number] Closed OON/Self Pay Override 11/02/2021 05/06/2022 1 1 Reason Comments Refill Request Reason Comments Sore Throat ST and drainage-woke up with symptoms-COVID exposure Specialty Diagnoses / Procedures Referred By Contac t Referred To Contact [facility] Diagnoses Sore Throat - COVID exposure Procedures EST SAME DAY Alessia Lawrence, VOCATIONAL TRAINING INSTRUCTOR.TONGUE AND GROOVE MACHINE SETTER [address] [place] [address] [facility] [address] [address] [place] [address] Referral ID Status Reason Start Date Expiration Date V isits Requested Visits Authorized [id number] Pending Review 11/20/2021 02/18/2022 1 1 Reason Onset Date Comments Recheck 4 month follow u p Immunizations 01/19/2022 Flu vaccination Specialty Diagnoses / Procedures Referred By Contac t Referred To Contact Internal Medicine / INTERNAL MEDICINE Diagnoses Follow-up examination 4 month Follow up Procedures OFFICE/OUTPATIENT ESTABLISHED MOD MDM 30-39 MIN 4C EST Josr Mathews MD [address] [place] [address] Leda Brown, VOCATIONAL TRAINING INSTRUCTOR.TONGUE AND GROOVE MACHINE SETTER [address] [place] [phone] Referral ID Status Reason Start Date Expiration Date Visits Re quested Visits Authorized [id number] Closed 01/19/2022 05/06/2022 1 1 Reason Comments Cough Cough, diarrhea, sin us, bodyaches, fever and ST x 4 days Specialty Diagnoses / Procedures Referred By Contac t Referred To Contact [facility] Diagnoses diarrhea, sinus, bodyaches, low grade fever, cough and sore throat Procedures OFFICE/OUTPATIENT ESTABLISHED MOD MDM 30-39 MIN EST SAME DAY Self Express Cl [facility] [address] [place] [phone] Referral ID Status Reason Start Date Expiration Date Visits Re quested Visits Authorized [id number] Closed 02/07/2022 05/06/2022 1 1 Reason Comments UTI Pressure since been on ATB Musculoskeletal Problem Achy all over; exposed to covid Specialty Diagnoses / Procedures Referred By Contac t Referred To Contact Family Medicine / FAMILY MEDICINE Diagnoses Encounter for general adult medical examination without abnormal findings UTI/not feeling well Procedures OFFICE/OUTPATIENT ESTABLISHED MOD MDM 30-39 MIN 4C EST Tracy Mendes APRN.TONGUE AND GROOVE MACHINE SETTER [address] [place] [phone] Tracy Mendes, VOCATIONAL TRAINING INSTRUCTOR.TONGUE AND GROOVE MACHINE SETTER [address] [place] [address] Referral ID Status Reason Start Date Expiration Date Visits Re quested Visits Authorized [id number] Closed 02/14/2022 05/06/2022 1 1 Reason Comments [...] 30-39 MIN 4C EST Self Older, Leda, VOCATIONAL TRAINING INSTRUCTOR.TONGUE AND GROOVE MACHINE SETTER [address] [place] [phone] Referral ID Status Reason Start Date Expiration Date Visits Re quested Visits Authorized [id number] Closed 04/17/2022 05/06/2022 1 1 Reason Onset Date Comments Refill Request 06/08/2022 Reason Comments Patient Request Reason Comments Insurance Authorization Reason Comments Recheck Elevated BP and BS, headaches Specialty Diagnoses / Procedures Referred By Contac t Referred To Contact Internal Medicine / INTERNAL MEDICINE Diagnoses BP (high blood pressure) high BP Procedures OFFICE/OUTPATIENT ESTABLISHED MOD MDM 30-39 MIN 4C EST Self Older, Leda, VOCATIONAL TRAINING INSTRUCTOR.TONGUE AND GROOVE MACHINE SETTER [address] [place] [address] Referral ID Status Reason Start Date Expiration Date Visits Re quested Visits Authorized [id number] Closed 06/15/2022 05/06/2023 1 1 Reason Comments Recheck 2 week follow up Specialty Diagnoses / Procedures Referred By Contac t Referred To Contact Internal Medicine / INTERNAL MEDICINE Diagnoses Encounter for follow-up examination after completed treatment for conditions other than malignant neoplasm 2 wk follow up Procedures OFFICE/OUTPATIENT ESTABLISHED MOD [facility] 30-39 MIN 4C EST Self Older, Leda, VOCATIONAL TRAINING INSTRUCTOR.TONGUE AND GROOVE MACHINE SETTER [address] [place] [address] Referral ID Status Reason Start Date Expiration Date Visits Re quested Visits Authorized [id number] Closed 06/26/2022 05/06/2023 1 1 Reason Comments Same Day Appointment sinus pressure, con gestion,fever chills,body aches,cough,nausea x since Sunday Specialty Diagnoses / Procedures Referred By Contac t Referred To Contact Internal Medicine / INTERNAL MEDICINE Diagnoses Cough Fever Sinus pressure sinus pressure, congestion, cough, fever Procedures OFFICE/OUTPATIENT ESTABLISHED MOD [facility] 30-39 MIN 4C EST Josr Mathews MD [address] [place] [address] Josr Mathews MD [facility] [place] [address] Referral ID Status Reason Start Date Expiration Date Visits Re quested Visits Authorized [id number] Closed 07/17/2022 05/06/2023 1 1 Reason Comments patient update/illness persisting Reason Comments Results Reason Comments New Patient Reason Comments Faxed cardiology referral [facility] Reason Comments Recheck Follow up, discuss T hyroid Specialty Diagnoses / Procedures Referred By Contac t Referred To Contact Internal Medicine / INTERNAL MEDICINE Diagnoses Thyroid condition discuss possible thyroid issues Procedures OFFICE/OUTPATIENT ESTABLISHED MOD [facility] 30-39 MIN 4C Josr Sandhu MD [address] [place] [address] Leda Brown APRN.TONGUE AND GROOVE MACHINE SETTER [address] [place] [address] Referral ID Status Reason Start Date Expiration Date Visits Re quested Visits Authorized [id number] Closed 08/17/2022 05/06/2023 1 1 Reason Comments Head Congestion Head congestion, cou gh, sinus pain, headaches x 3 days Specialty Diagnoses / Procedures Referred By Contac t Referred To Contact Internal Medicine / INTERNAL MEDICINE Diagnoses Nasal congestion nasal congestion, sinus pressure, drainage Procedures OFFICE/OUTPATIENT ESTABLISHED MOD [facility] 30-39 MIN 4C Leda Youngblood APRN.TONGUE AND GROOVE MACHINE SETTER [address] [place] [address] Leda Brown APRN.TONGUE AND GROOVE MACHINE SETTER [address] [place] [address] Referral ID Status Reason Start Date Expiration Date Visits Re quested Visits Authorized [id number] Closed 09/04/2022 05/06/2023 1 1 Reason Comments Recheck 2 week BP follow up Specialty Diagnoses / Procedures Referred By Contac t Referred To Contact Internal Medicine / INTERNAL MEDICINE Diagnoses Follow-up exam BP follow up Procedures OFFICE/OUTPATIENT ESTABLISHED MOD [facility] 30-39 MIN 4C Josr Sandhu MD [address] [place] [address] Leda Brown APRN.TONGUE AND GROOVE MACHINE SETTER [address] [place] [address] Referral ID Status Reason Start Date Expiration Date Visits Re quested Visits Authorized [id number] Closed 09/14/2022 05/06/2023 1 1 Reason Comments [...] MIN 4C EST Josr Mathews MD [address] [place] [address] Leda Brown APRN.TONGUE AND GROOVE MACHINE SETTER [address] [place] [address] Referral ID Status Reason Start Date Expiration Date V isits Requested Visits Authorized [id number] Authorized 12/11/2022 05/06/2023 2 2 Reason Comments Cellulitis Update Reason Comments Recheck Follow up cellulitis Specialty Diagnoses / Procedures Referred By Contac t Referred To Contact Internal Medicine / INTERNAL MEDICINE Diagnoses Follow-up exam follow up - cellulitis Procedures OFFICE/OUTPATIENT ESTABLISHED MOD [facility] 30-39 MIN 4C EST Self Leda Brown, BOOKER.TONGUE AND GROOVE MACHINE SETTER [address] [place] [address] Referral ID Status Reason Start Date Expiration Date Visits Re quested Visits Authorized [id number] Closed 12/20/2022 05/06/2023 1 1 Specialty Diagnoses / Procedures Referred By Contac t Referred To Contact [facility] Diagnoses FEELING OF NEEDING TO URINATE AND THEN UNABLE TO GET MUCH OUT, ALSO HAVING A LOW GRADE 100.4 FEVER - PATIENT HAD A HEART CATH AND 2 STENTS PLACED ON 12/27/22 Procedures EST SAME DAY [facility] [address] [place] [address] Referral ID Status Reason Start Date Expiration Date V isits Requested Visits Authorized [id number] Outside PCP 12/31/2022 03/01/2023 1 1 Reason Comments Recheck ER follow up, AFIB Specialty Diagnoses / Procedures Referred By Contac t Referred To Contact Internal Medicine / INTERNAL MEDICINE Diagnoses Follow-up exam 6 week follow up Procedures OFFICE/OUTPATIENT ESTABLISHED MOD MDM 30-39 MIN 4C EST Self Leda Brown APRN.TONGUE AND GROOVE MACHINE SETTER [address] [place] [address] Referral ID Status Reason Start Date Expiration Date Visits Re quested Visits Authorized [id number] Closed 02/08/2023 06/06/2023 1 1 Reason Comments Radiology US Specialty Diagnoses / Procedures Referred By Contac t Referred To Contact US IMAGING Diagnoses Liver fibrosis Procedures US ABD RIGHT UPPER QUADRANT US ABDOMINAL REAL TIME W/IMAGE LIMITED Leda Brown APRN.TONGUE AND GROOVE MACHINE SETTER [address] [place] [address] [place] [address] Referral ID Status Reason Start Date Expiration Date V isits Requested Visits Authorized [id number] Closed Auto-Generate d Referral 09/21/2022 05/06/2023 1 [...] Care Teams (unrecognized sec tion and content) Oiler Bander Relationship Specialty Start Date End Date Josr Mathews MD [address] [place] [address] PCP - General Internal Medicine 02/19/19 Oiler Bander Relationship Specialty Start Date End Date Josr Mathews MD [address] [place] [address] PCP - General Internal Medicine 02/19/19 Oiler Bander Relationship Specialty Start Date End Date Josr Mathews MD [address] [place] [address] PCP - General Internal Medicine 02/19/19 Oiler Bander Relationship Specialty Start Date End Date Josr Mathews MD [address] [place] [address] PCP - General Internal Medicine 02/19/19 Oiler Bander Relationship Specialty Start Date End Date Josr Mathews MD [address] [place] [address] PCP - General Internal Medicine 02/19/19 Oiler Bander Relationship Specialty Start Date End Date Josr Mathews MD [address] [place] [address] PCP - General Internal Medicine 02/19/19 Oiler Bander Relationship Specialty Start Date End Date Josr Mathews MD [address] [place] [address] PCP - General Internal Medicine 02/19/19 Oiler Bander Relationship Specialty Start Date End Date Josr Mathews MD [address] [place] [address] PCP - General Internal Medicine 02/19/19 Oiler Bander Relationship Specialty Start Date End Date Josr Mathews MD [address] [place] [address] PCP - General Internal Medicine 02/19/19 Oiler Bander Relationship Specialty Start Date End Date Josr Mathews MD [address] [place] [address] PCP - General Internal Medicine 02/19/19 Oiler Bander Relationship Specialty Start Date End Date Josr Mathews MD [address] [place] [address] PCP - General Internal Medicine 02/19/19 Oiler Bander Relationship Specialty Start Date End Date Josr Mathews MD [address] [facility] [place] [address] PCP - General Internal Medicine 02/19/19 Oiler Bander Relationship Specialty Start Date End Date Josr Mathews MD [address] [place] [address] PCP - General Internal Medicine 02/19/19 Oiler Bander Relationship Specialty Start Date End Date Josr Mathews MD [address] [place] [address] PCP - General Internal Medicine 02/19/19 Oiler Bander Relationship Specialty Start Date End Date Josr Mathews MD [address] [place] [address] PCP - General Internal Medicine 02/19/19 Oiler Bander Relationship Specialty Start Date End Date Josr Mathews MD [address] [place] [address] PCP - General Internal Medicine 02/19/19 Oiler Bander Relationship Specialty Start Date End Date Josr Mathews MD [address] [place] [address] PCP - General Internal Medicine 02/19/19 Oiler Bander Relationship Specialty Start Date End Date Josr Mathews MD [address] [place] [address] PCP - General Internal Medicine 02/19/19 Oiler Bander Relationship Specialty Start Date End Date Josr Mathews MD [address] [place] [address] PCP - General Internal Medicine 02/19/19 Oiler Bander Relationship Specialty Start Date End Date Josr Mathews MD [address] [place] [address] PCP - General Internal Medicine 02/19/19 Oiler Bander Relationship Specialty Start Date End Date Josr Mathews MD [address] [place] [address] PCP - General Internal Medicine 02/19/19 Oiler Bander Relationship Specialty Start Date End Date Josr Mathews MD [address] [place] [place] [address] PCP - General Internal Medicine 02/19/19 Oiler Bander Relationship Specialty Start Date End Date Josr Mathews MD [address] [place] [address] PCP - General Internal Medicine 02/19/19 Oiler Bander Relationship Specialty Start Date End Date Josr Mathews MD [address] [place] [place] [address] PCP - General Internal Medicine 02/19/19 Oiler Bander Relationship Specialty Start Date End Date Josr Mathews MD [address] [place] [place] [address] PCP - General Internal Medicine 02/19/19 Oiler Bander Relationship Specialty Start Date End Date Josr Mathews MD [address] [place] [place] [address] PCP - General Internal Medicine 02/19/19 Oiler Bander Relationship Specialty Start Date End Date Josr Mathews MD [address] [place] [address] PCP - General Internal Medicine 02/19/19 Oiler Bander Relationship Specialty Start Date End Date Josr Mathews MD [address] [place] [place] [address] PCP - General Internal Medicine 02/19/19 Oiler Bander Relationship Specialty Start Date End Date Josr Mathews MD [address] [place] [place] [address] PCP - General Internal Medicine 02/19/19 Oiler Bander Relationship Specialty Start Date End Date Josr Mathews MD [address] [place] [place] [address] PCP - General Internal Medicine 02/19/19 Oiler Bander Relationship Specialty Start Date End Date Josr Mathews MD [address] [place] [address] PCP - General Internal Medicine 02/19/19 Oiler Bander Relationship Specialty Start Date End Date Josr Mathews MD [address] [facility] [address] PCP - General Internal Medicine 02/19/19 Oiler Bander Relationship Specialty Start Date End Date Josr Mathews MD [address] [place] [address] PCP - General Internal Medicine 02/19/19 Oiler Bander Relationship Specialty Start Date End Date Josr Mathews MD [address] [place] [address] PCP - General Internal Medicine 02/19/19 Oiler Bander Relationship Specialty Start Date End Date Josr Mathews MD [address] [place] [address] PCP - General Internal Medicine 02/19/19 Oiler Bander Relationship Specialty Start Date End Date Josr Mathews MD [address] [place] [address] PCP - General Internal Medicine 02/19/19 Oiler Bander Relationship Specialty Start Date End Date Josr Mathews MD [address] [place] [address] PCP - General Internal Medicine 02/19/19 Oiler Bander Relationship Specialty Start Date End Date Josr Mathews MD [address] [place] [address] PCP - General Internal Medicine 02/19/19 Oiler Bander Relationship Specialty Start Date End Date Josr Mathews MD [address] [place] [address] PCP - General Internal Medicine 02/19/19 Oiler Bander Relationship Specialty Start Date End Date Josr Mathews MD [address] [place] [address] PCP - General Internal Medicine 02/19/19 Oiler Bander Relationship Specialty Start Date End Date Josr Mathews MD [address] [place] [address] PCP - General Internal Medicine 02/19/19 Oiler Bander Relationship Specialty Start Date End Date Josr Mathews MD [address] [place] [address] PCP - General Internal Medicine 02/19/19 FOR [...] BE BASED ON THE PRIMARY CLINICAL RECORDS. [employer] [facility]. provides no warranty or guarantee of the accuracy or completeness of information in this document.
== END 2023-06-21 18:35 | disposition home or self-care (01) ==
PROVIDERS: Emergency Provider Emergency Medicine; PCP Nurse Practitioner; Visit Provider Emergency Medicine
DX: R10.11 Right upper quadrant pain (principal); I48.0 Paroxysmal atrial fibrillation; E11.9 Type 2 diabetes mellitus without complications; D64.9 Anemia, unspecified; I25.10 Atherosclerotic heart disease of native coronary artery without angina pectoris; Z79.01 Long term (current) use of anticoagulants; Z90.710 Acquired absence of both cervix and uterus; E78.5 Hyperlipidemia, unspecified; I10 Essential (primary) hypertension; Z79.84 Long term (current) use of oral hypoglycemic drugs; Z79.899 Other long term (current) drug therapy; Z79.02 Long term (current) use of antithrombotics/antiplatelets; Z98.41 Cataract extraction status, right eye; Z98.42 Cataract extraction status, left eye; Z95.5 Presence of coronary angioplasty implant and graft
CPT/HCPCS: 74177; 76705; 80053; 81001; 83690; 85025; 99282; Q9967; A4216

== ENCOUNTER → 2023-06-21 | Outpatient (CLI) | payer OTHER, SELFPAY ==
[2023-04-18 11:48] VITALS: BMI 32.9
--- OUTSIDE RECORDS SUMMARY | 2023-06-21 06:41 | XMS RPT_ITS | CCD ---
Author Name Unknown Address [address] [place] [address] Organization [facility] Care Team Providers Care Ultimate Hoops Scoreboard Operator Name Role Phone Unavailable Primary Care Provider Unavailabl e Gabe KOENIG, Josr Primary Care Provider Gabe KOENIG, Josr Primary Care Provider Gabe KOENIG, Josr Primary Care Provider Gabe KOENIG, Josr Primary Care Provider MARYLU CHAUDHARY DO Attending Unavailable MARYLU CHAUDHARY DO Primary Care Unavailable MARYLU CHAUDHARY DO Admitting Unavailable YA CLEVELAND Attending Unavailable SELF, SELF Referring Unavailable GANTA, JOSR Primary Care Unavailable GANTA, JOSR Referring Unavailable GANTA, JOSR Primary Care Unavailable OLDER, LEDA Attending Unavailable GANTA, JOSR Referring Unavailable GANTA, JOSR [...] Unavailable GANTA, JOSR Attending Unavailable OLDER, LEDA Attending Unavailable GANTA, JOSR [...] Referring Unavailable GANTA, JOSR Primary Care Unavailable LUZ NIEVES Attending Unavailable GANTA, JOSR Primary Care Unavailable LUZ NIEVES Attending Unavailable GANTA, JOSR Primary Care Unavailable OLDER, LEDA Attending Unavailable GANTA, JOSR Primary Care Unavailable GANTA, JOSR Primary Care Unavailable GANTA, JOSR Primary Care Unavailable OLDER, LEDA Attending Unavailable [facility] Primary Care Unavailable CHHAYA CROWE Attending Unavailable GANTA, JOSR Primary Care Unavailable GANTA, JOSR Primary Care Unavailable OLDER, LEDA Attending Unavailable GANTA, JOSR Primary Care Unavailable Allergies Allergy Classification Reported Allergen(s) Allergy Type Date of Onset Reaction(s) Facility (20 sources) cantaloupe allergenic extract; Translations: [CANTALOUPE] Drug Allergy 01-22-[address] [facility] Work Phone: (20 sources) levoFLOXacin; Translations: [LEVOFLOXACIN] Drug Allergy 04-12-[address] [facility] (20 sources) Sulfonamides (Antibiotic); Translations: [SULFA (SULFONAMIDE ANTIBIOTICS)] Drug Allergy 01-22-[address] [facility] (1 source) levoFLOXacin Drug Allergy [facility] (1 source) Sulfonamides (Antibiotic) Drug allergy (disorder) [facility] Medications Current Medications Medication Drug Class(es) [...] Problem Date Documented Date Episodic/Chronic Cardiac dysrhythmias (7 sources) Supraventricular tachycardia; Translations: [Supraventricular tachycardia] Onset: [...] Onset: 01-22-2019 01-22-2019 Chronic Unclassified (1 source) Liver fibrosis; Translations: [Liver fibrosis] Onset: 12-14-2022 Unclassified (1 source) Vulvar candidiasis; Translations: [Vulvar candidiasis] Onset: 10-12-2022 Unclassified (1 source) Vaginal candidiasis; Translations: [Vaginal candidiasis] Onset: 09-14-2022 Unclassified (1 source) Headaches; Translations: [Headaches] Onset: 06-26-2022 Viral infection (2 sources) Viral disease; Translations: [Viral infection, unspecified] Episodic Past or Other Problems Problem Classification Problem Date Documented Date Episodic/Chronic Abdominal pain (4 sources) Right upper quadrant pain; Translations: [Right upper quadrant pain] Onset: 12-14-2022 Episodic Cardiac dysrhythmias (5 sources) Palpitations; Translations: [Palpitations] Onset: 06-22-2022 Episodic Nonspecific chest pain (7 sources) Xiphodynia; Translations: [Other chest pain] Onset: 06-22-2022 Episodic Other female genital disorders (1 source) [...] Rubi Araya PA-C Work Phone: [facility] 04-16-2023 15:33-0500 Body weight 84.46 kg Rubi Athy PA-C Work Phone: [facility] 04-16-2023 15:33-0500 Diastolic blood pressure 83 mm[Hg] Rubi Athy PA-C Work Phone: [facility] 04-16-2023 15:33-0500 Heart rate 77 /min Rubi Athy PA-C Work Phone: [facility] 04-16-2023 15:33-0500 Respiratory rate 18 /min Rubi Athy PA-C Work Phone: [facility] 04-16-2023 15:33-0500 SaO2% (BldA) [Mass fraction] 98 % Rubi Athy PA-C Work Phone: [facility] 04-16-2023 15:33-0500 Systolic blood pressure 151 mm[Hg] Rubi Athy PA-C Work Phone: [facility] 03-28-2023 15:50-0500 Diastolic blood pressure 70 mm[Hg] Leda Older RESAW TAILER.EVENING ANCHOR Work Phone: [facility] 03-28-2023 15:50-0500 Systolic blood pressure 130 mm[Hg] Leda Older RESAW TAILER.EVENING ANCHOR Work Phone: [facility] 03-28-2023 15:35-0500 Body weight 84.82 kg Leda Older RESAW TAILER.EVENING ANCHOR Work Phone: [facility] 03-28-2023 15:35-0500 Heart rate 74 /min Leda Older RESAW TAILER.EVENING ANCHOR Work Phone: [facility] 03-28-2023 15:35-0500 Respiratory rate 16 /min Leda Older RESAW TAILER.EVENING ANCHOR Work Phone: [facility] 03-28-2023 15:35-0500 SaO2% (BldA) [Mass fraction] 99 % Leda Older RESAW TAILER.EVENING ANCHOR Work Phone: [facility] 03-12-2023 13:06-0500 Body height 161.3 cm Alexandre Campa PA-C Work Phone: [facility] 03-12-2023 13:06-0500 Body temperature 98.01 [degF] Alexandre Denbow PA-C Work Phone: [facility] 03-12-2023 13:06-0500 Body weight 83.01 kg Alexandre Denbow PA-C Work Phone: [facility] 03-12-2023 13:06-0500 Diastolic blood pressure 70 mm[Hg] Alexandre Denbow PA-C Work Phone: [facility] 03-12-2023 13:06-0500 Heart rate 78 /min Alexandre Denbow PA-C Work Phone: [facility] 03-12-2023 13:06-0500 Respiratory rate 12 /min Alexandre Denbow PA-C Work Phone: [facility] 03-12-2023 13:06-0500 SaO2% (BldA) [Mass fraction] 99 % Alexandre Denbow PA-C Work Phone: [facility] 03-12-2023 13:06-0500 Systolic blood pressure 138 mm[Hg] Alexandre Denbow PA-C Work Phone: [facility] 02-28-2023 10:44-0400 Body weight 83.92 kg Leda Older RESAW TAILER.EVENING ANCHOR Work Phone: [facility] 02-28-2023 10:44-0400 Diastolic blood pressure 82 mm[Hg] Leda Older RESAW TAILER.EVENING ANCHOR Work Phone: [facility] 02-28-2023 10:44-0400 Heart rate 80 /min Leda Older RESAW TAILER.EVENING ANCHOR Work Phone: [facility] 02-28-2023 10:44-0400 Respiratory rate 16 /min Leda Older RESAW TAILER.EVENING ANCHOR Work Phone: [facility] 02-28-2023 10:44-0400 SaO2% (BldA) [Mass fraction] 99 % Leda Older RESAW TAILER.EVENING ANCHOR Work Phone: [facility] 02-28-2023 10:44-0400 Systolic blood pressure 142 mm[Hg] Leda Older RESAW TAILER.EVENING ANCHOR Work Phone: [facility] 12-20-2022 17:26-0400 Body temperature 98.71 [degF] Leda Older RESAW TAILER.EVENING ANCHOR Work Phone: [facility] 12-20-2022 17:26-0400 Diastolic blood pressure 74 mm[Hg] Leda Older RESAW TAILER.EVENING ANCHOR Work Phone: [facility] 12-20-2022 17:26-0400 Heart rate 84 /min Leda Older RESAW TAILER.EVENING ANCHOR Work Phone: [facility] 12-20-2022 17:26-0400 Respiratory rate 16 /min Leda Older RESAW TAILER.EVENING ANCHOR Work Phone: [facility] 12-20-2022 17:26-0400 SaO2% (BldA) [Mass fraction] 98 % Leda Older RESAW TAILER.EVENING ANCHOR Work Phone: [facility] 12-20-2022 17:26-0400 Systolic blood pressure 132 mm[Hg] Leda Older RESAW TAILER.EVENING ANCHOR Work Phone: [facility] 12-14-2022 10:36-0400 Body temperature 98.2 [degF] Leda Older RESAW TAILER.EVENING ANCHOR Work Phone: [facility] 12-14-2022 10:36-0400 Body weight 84.82 kg Leda Older RESAW TAILER.EVENING ANCHOR Work Phone: [facility] 12-14-2022 10:36-0400 Diastolic blood pressure 82 mm[Hg] Leda Older RESAW TAILER.EVENING ANCHOR Work Phone: [facility] 12-14-2022 10:36-0400 Heart rate 72 /min Leda Older RESAW TAILER.EVENING ANCHOR Work Phone: [facility] 12-14-2022 10:36-0400 Respiratory rate 16 /min Leda Older RESAW TAILER.EVENING ANCHOR Work Phone: [facility] 12-14-2022 10:36-0400 SaO2% (BldA) [Mass fraction] 99 % Leda Older RESAW TAILER.EVENING ANCHOR Work Phone: [facility] 12-14-2022 10:36-0400 Systolic blood pressure 144 mm[Hg] Leda Older RESAW TAILER.EVENING ANCHOR Work Phone: [facility] 12-09-2022 14:55-0400 Body temperature 99 [degF] [facility] RESAW TAILER.EVENING ANCHOR Work Phone: [facility] 12-09-2022 14:55-0400 Body weight 86.64 kg [facility] RESAW TAILER.EVENING ANCHOR Work Phone: [facility] 12-09-2022 14:55-0400 Diastolic blood pressure 80 mm[Hg] [facility] RESAW TAILER.EVENING ANCHOR Work Phone: [facility] 12-09-2022 14:55-0400 Heart rate 82 /min [facility] RESAW TAILER.EVENING ANCHOR Work Phone: [facility] 12-09-2022 14:55-0400 Respiratory rate 16 /min [facility] RESAW TAILER.EVENING ANCHOR Work Phone: [facility] 12-09-2022 14:55-0400 SaO2% (BldA) [Mass fraction] 98 % [facility] RESAW TAILER.EVENING ANCHOR Work Phone: [facility] 12-09-2022 14:55-0400 Systolic blood pressure 134 mm[Hg] [facility] RESAW TAILER.EVENING ANCHOR Work Phone: [facility] 12-03-2022 10:50-0400 Body temperature 98.4 [degF] Rubi Athy PA-C Work Phone: [facility] 12-03-2022 10:50-0400 Body weight 85.28 kg Rubi Athy PA-C Work Phone: [facility] 12-03-2022 10:50-0400 Diastolic blood pressure 84 mm[Hg] Rubi Athy PA-C Work Phone: [facility] 12-03-2022 10:50-0400 Heart rate 79 /min Rubi Athy PA-C Work Phone: [facility] 12-03-2022 10:50-0400 Respiratory rate 18 /min Rubi Athy PA-C Work Phone: [facility] 12-03-2022 10:50-0400 SaO2% (BldA) [Mass fraction] 98 % Rubi Athy PA-C Work Phone: [facility] 12-03-2022 10:50-0400 Systolic blood pressure 142 mm[Hg] Rubi Athy PA-C Work Phone: [facility] 10-12-2022 10:09-0400 Body height 161.3 cm Chhaya Crowe MD Work Phone: [facility] 10-12-2022 10:09-0400 Body weight 87.77 kg Chhaya Crowe MD Work Phone: [facility] 10-12-2022 10:09-0400 Diastolic blood pressure 72 mm[Hg] Chhaya Crowe MD Work Phone: [facility] 10-12-2022 10:09-0400 Systolic blood pressure 128 mm[Hg] Chhaya Crowe MD Work Phone: [facility] 09-14-2022 09:22-0400 Diastolic blood pressure 82 mm[Hg] Leda Older RESAW TAILER.EVENING ANCHOR Work Phone: [facility] 09-14-2022 09:22-0400 Systolic blood pressure 138 mm[Hg] Leda Older RESAW TAILER.EVENING ANCHOR Work Phone: [facility] 09-14-2022 08:55-0400 Body weight 86.64 kg Leda Older RESAW TAILER.EVENING ANCHOR Work Phone: [facility] 09-14-2022 08:55-0400 Heart rate 80 /min Leda Older RESAW TAILER.EVENING ANCHOR Work Phone: [facility] 09-14-2022 08:55-0400 Respiratory rate 16 /min Leda Older RESAW TAILER.EVENING ANCHOR Work Phone: [facility] 09-04-2022 13:28-0400 Body temperature 97.7 [degF] Leda Older RESAW TAILER.EVENING ANCHOR Work Phone: [facility] 09-04-2022 13:28-0400 Body weight 88 kg Leda Older RESAW TAILER.EVENING ANCHOR Work Phone: [facility] 09-04-2022 13:28-0400 Diastolic blood pressure 90 mm[Hg] Leda Older RESAW TAILER.EVENING ANCHOR Work Phone: [facility] 09-04-2022 13:28-0400 Heart rate 86 /min Leda Older RESAW TAILER.EVENING ANCHOR Work Phone: [facility] 09-04-2022 13:28-0400 Respiratory rate 16 /min Leda Older RESAW TAILER.EVENING ANCHOR Work Phone: [facility] 09-04-2022 13:28-0400 SaO2% (BldA) [Mass fraction] 98 % Leda Older RESAW TAILER.EVENING ANCHOR Work Phone: [facility] 09-04-2022 13:28-0400 Systolic blood pressure 144 mm[Hg] Leda Older RESAW TAILER.EVENING ANCHOR Work Phone: [facility] 08-17-2022 08:34-0400 Body temperature 98.49 [degF] Leda Older RESAW TAILER.EVENING ANCHOR Work Phone: [facility] 08-17-2022 08:34-0400 Body weight 88 kg Leda Older RESAW TAILER.EVENING ANCHOR Work Phone: [facility] 08-17-2022 08:34-0400 Diastolic blood pressure 90 mm[Hg] Leda Older RESAW TAILER.EVENING ANCHOR Work Phone: [facility] 08-17-2022 08:34-0400 Heart rate 68 /min Leda Older RESAW TAILER.EVENING ANCHOR Work Phone: [facility] 08-17-2022 08:34-0400 Respiratory rate 16 /min Leda Older RESAW TAILER.EVENING ANCHOR Work Phone: [facility] 08-17-2022 08:34-0400 SaO2% (BldA) [Mass fraction] 98 % Leda Older RESAW TAILER.EVENING ANCHOR Work Phone: [facility] 08-17-2022 08:34-0400 Systolic blood pressure 152 mm[Hg] Leda Older RESAW TAILER.EVENING ANCHOR Work Phone: [facility] 07-17-2022 15:38-0400 Body height 157.5 cm Josr Mathews MD Work Phone: [facility] 07-17-2022 15:38-0400 Body temperature 99 [degF] Josr Mathews MD Work Phone: [facility] 07-17-2022 15:38-0400 Body weight 87.54 kg Josr Mathews MD Work Phone: [facility] 07-17-2022 15:38-0400 Diastolic blood pressure 70 mm[Hg] Josr Mathews MD Work Phone: [facility] 07-17-2022 15:38-0400 Heart rate 80 /min Josr Mathews MD Work Phone: [facility] 07-17-2022 15:38-0400 Respiratory rate 12 /min Josr Mathews MD Work Phone: [facility] 07-17-2022 15:38-0400 SaO2% (BldA) [Mass fraction] 97 % Josr Mathews MD Work Phone: [facility] 07-17-2022 15:38-0400 Systolic blood pressure 126 mm[Hg] Josr Mathews MD Work Phone: [facility] 06-26-2022 08:58-0500 Diastolic blood pressure 83 mm[Hg] Leda Older RESAW TAILER.EVENING ANCHOR Work Phone: [facility] 06-26-2022 08:58-0500 Systolic blood pressure 135 mm[Hg] Leda Older RESAW TAILER.EVENING ANCHOR Work Phone: [facility] 06-26-2022 08:23-0500 Body weight 88 kg Leda Older RESAW TAILER.EVENING ANCHOR Work Phone: [facility] 06-26-2022 08:23-0500 Heart rate 68 /min Leda Older RESAW TAILER.EVENING ANCHOR Work Phone: [facility] 06-26-2022 08:23-0500 Respiratory rate 16 /min Leda Older RESAW TAILER.EVENING ANCHOR Work Phone: [facility] 06-15-2022 15:30-0500 Diastolic blood pressure 81 mm[Hg] Leda Older RESAW TAILER.EVENING ANCHOR Work Phone: [facility] 06-15-2022 15:30-0500 Heart rate 85 /min Leda Older RESAW TAILER.EVENING ANCHOR Work Phone: [facility] 06-15-2022 15:30-0500 Systolic blood pressure 137 mm[Hg] Leda Older RESAW TAILER.EVENING ANCHOR Work Phone: [facility] 06-15-2022 14:45-0500 Body temperature 99.1 [degF] Leda Older RESAW TAILER.EVENING ANCHOR Work Phone: [facility] 06-15-2022 14:45-0500 Body weight 88.45 kg Leda Older RESAW TAILER.EVENING ANCHOR Work Phone: [facility] 06-15-2022 14:45-0500 Respiratory rate 16 /min Leda Older RESAW TAILER.EVENING ANCHOR Work Phone: [facility] 06-15-2022 14:45-0500 SaO2% (BldA) [Mass fraction] 99 % Leda Older RESAW TAILER.EVENING ANCHOR Work Phone: [facility] 04-17-2022 09:54-0500 Diastolic blood pressure 82 mm[Hg] Leda Older RESAW TAILER.EVENING ANCHOR Work Phone: [facility] 04-17-2022 09:54-0500 Systolic blood pressure 140 mm[Hg] Leda Older RESAW TAILER.EVENING ANCHOR Work Phone: [facility] 04-17-2022 09:37-0500 Body height 157.5 cm Leda Older RESAW TAILER.EVENING ANCHOR Work Phone: [facility] 04-17-2022 09:37-0500 Body temperature 98.1 [degF] Lead Older RESAW TAILER.EVENING ANCHOR Work Phone: [facility] 04-17-2022 09:37-0500 Body weight 88.91 kg Leda Older RESAW TAILER.EVENING ANCHOR Work Phone: [facility] 04-17-2022 09:37-0500 Heart rate 75 /min Leda Older RESAW TAILER.EVENING ANCHOR Work Phone: [facility] 04-17-2022 09:37-0500 SaO2% (BldA) [Mass fraction] 98 % Leda Older RESAW TAILER.EVENING ANCHOR Work Phone: [facility] 02-14-2022 12:45-0400 Body temperature 99.1 [degF] Tracy Podlogar RESAW TAILER.EVENING ANCHOR Work Phone: [facility] 02-14-2022 12:45-0400 Body weight 89.18 kg Tracy Podlogar RESAW TAILER.EVENING ANCHOR Work Phone: [facility] 02-14-2022 12:45-0400 Diastolic blood pressure 88 mm[Hg] Tracy Podlogar RESAW TAILER.EVENING ANCHOR Work Phone: [facility] 02-14-2022 12:45-0400 Heart rate 80 /min Tracy Podlogar RESAW TAILER.EVENING ANCHOR Work Phone: [facility] 02-14-2022 12:45-0400 Respiratory rate 18 /min Tracy Podlogar RESAW TAILER.EVENING ANCHOR Work Phone: [facility] 02-14-2022 12:45-0400 SaO2% (BldA) [Mass fraction] 97 % Tracy Podlogar RESAW TAILER.EVENING ANCHOR Work Phone: [facility] 02-14-2022 12:45-0400 Systolic blood pressure 130 mm[Hg] Tracy Podlogar RESAW TAILER.EVENING ANCHOR Work Phone: [facility] 02-07-2022 10:48-0400 Body temperature 98.29 [degF] Kathy Alejandre RESAW TAILER.EVENING ANCHOR Work Phone: [facility] 02-07-2022 10:48-0400 Body weight 89.72 kg Praisler-Wood RESAW TAILER.EVENING ANCHOR Work Phone: [facility] 02-07-2022 10:48-0400 Diastolic blood pressure 80 mm[Hg] Praisler-Wood RESAW TAILER.EVENING ANCHOR Work Phone: [facility] 02-07-2022 10:48-0400 Heart rate 69 /min Praisler-Wood RESAW TAILER.EVENING ANCHOR Work Phone: [facility] 02-07-2022 10:48-0400 Respiratory rate 16 /min Praisler-Wood RESAW TAILER.EVENING ANCHOR Work Phone: [facility] 02-07-2022 10:48-0400 SaO2% (BldA) [Mass fraction] 98 % Praisler[employer] RESAW TAILER.EVENING ANCHOR Work Phone: [facility] 02-07-2022 10:48-0400 Systolic blood pressure 132 mm[Hg] Praisler-Wood RESAW TAILER.EVENING ANCHOR Work Phone: [facility] 01-19-2022 09:04-0400 Diastolic blood pressure 86 mm[Hg] Leda Older RESAW TAILER.EVENING ANCHOR Work Phone: [facility] 01-19-2022 09:04-0400 Systolic blood pressure 136 mm[Hg] Leda Older RESAW TAILER.EVENING ANCHOR Work Phone: [facility] 01-19-2022 08:10-0400 Body weight 88.91 kg Leda Older RESAW TAILER.EVENING ANCHOR Work Phone: [facility] 01-19-2022 08:10-0400 Heart rate 68 /min Leda Older RESAW TAILER.EVENING ANCHOR Work Phone: [facility] 01-19-2022 08:10-0400 Respiratory rate 16 /min Leda Older RESAW TAILER.EVENING ANCHOR Work Phone: [facility] 11-20-2021 13:06-0400 Body temperature 98.29 [degF] Praisler-[employer] RESAW TAILER.EVENING ANCHOR Work Phone: [facility] 11-20-2021 13:06-0400 Body weight 88.72 kg Praisler-Wood RESAW TAILER.EVENING ANCHOR Work Phone: [facility] 11-20-2021 13:06-0400 Diastolic blood pressure 84 mm[Hg] Praisler-Wood RESAW TAILER.EVENING ANCHOR Work Phone: [facility] 11-20-2021 13:06-0400 Heart rate 68 /min P[employer]ler[employer] RESAW TAILER.EVENING ANCHOR Work Phone: [facility] 11-20-2021 13:06-0400 Respiratory rate 16 /min Praisler-[employer] RESAW TAILER.EVENING ANCHOR Work Phone: [facility] 11-20-2021 13:06-0400 SaO2% (BldA) [Mass fraction] 98 % [employer] RESAW TAILER.EVENING ANCHOR Work Phone: [facility] 11-20-2021 13:06-0400 Systolic blood pressure 136 mm[Hg] Praisler-[employer] RESAW TAILER.EVENING ANCHOR Work Phone: [facility] 10-13-2021 07:49-0400 Body weight 88.45 kg Leda Older RESAW TAILER.EVENING ANCHOR Work Phone: [facility] 10-13-2021 07:49-0400 Diastolic blood pressure 100 mm[Hg] Leda Older RESAW TAILER.EVENING ANCHOR Work Phone: [facility] 10-13-2021 07:49-0400 Heart rate 64 /min Leda Older RESAW TAILER.EVENING ANCHOR Work Phone: [facility] 10-13-2021 07:49-0400 Respiratory rate 16 /min Leda Older RESAW TAILER.EVENING ANCHOR Work Phone: [facility] 10-13-2021 07:49-0400 Systolic blood pressure 144 mm[Hg] Leda Older RESAW TAILER.EVENING ANCHOR Work Phone: [facility] 10-10-2021 18:09-0400 Body temperature 97.9 [degF] [employer] RESAW TAILER.EVENING ANCHOR Work Phone: [facility] 10-10-2021 18:09-0400 Body weight 90.54 kg Praisler-[employer] RESAW TAILER.EVENING ANCHOR Work Phone: [facility] 10-10-2021 18:09-0400 Diastolic blood pressure 94 mm[Hg] P[employer]ler[employer] RESAW TAILER.EVENING ANCHOR Work Phone: [facility] 10-10-2021 18:09-0400 Heart rate 79 /min [employer] RESAW TAILER.EVENING ANCHOR Work Phone: [facility] 10-10-2021 18:09-0400 Respiratory rate 21 /min [employer] RESAW TAILER.EVENING ANCHOR Work Phone: [facility] 10-10-2021 18:09-0400 SaO2% (BldA) [Mass fraction] 99 % [employer] RESAW TAILER.EVENING ANCHOR Work Phone: [facility] 10-10-2021 18:09-0400 Systolic blood pressure 172 mm[Hg] [employer] RESAW TAILER.EVENING ANCHOR Work Phone: [facility] 09-19-2021 15:16-0400 Diastolic blood pressure 80 mm[Hg] Dyana Haagen RESAW TAILER.EVENING ANCHOR Work Phone: [facility] 09-19-2021 15:16-0400 Heart rate 73 /min Dyana Haagen RESAW TAILER.EVENING ANCHOR Work Phone: [facility] 09-19-2021 15:16-0400 Respiratory rate 18 /min Dyana Haagen RESAW TAILER.EVENING ANCHOR Work Phone: [facility] 09-19-2021 15:16-0400 SaO2% (BldA) [Mass fraction] 98 % Dyana Haagen RESAW TAILER.EVENING ANCHOR Work Phone: [facility] 09-19-2021 15:16-0400 Systolic blood pressure 132 mm[Hg] Dyana Haagen RESAW TAILER.EVENING ANCHOR Work Phone: [facility] Encounters Encounter Date Encounter Type Care Provider Facility Start: 06-19-2023 Erasto Brown APRN .EVENING ANCHOR Work Phone: [facility] [place] Procedures Date Procedure Procedure Detail Performing Clinician Start: 04-16-2023 COVID & INFLUENZA A/ B & RSV NAAT, ROUTINE Rubi Araya PA-C Work Phone: Start: 03-12-2023 COVID & INFLUENZA A/ B NAAT, ROUTINE Alexandre Campa PA-C Work Phone: Start: 11-09-2022 End: 11-09-2022 Mammography Chhaya Crowe MD Work Phone: Start: 09-21-2022 Us abdominal real ti me w/image limited Leda Brown RESAW TAILER.EVENING ANCHOR Work Phone: Start: 02-14-2022 Urnls dip stick/tabl et rgnt auto w/o microscopy Tracy Mendes RESAW TAILER.EVENING ANCHOR Work Phone: Start: 01-19-2022 Hemoglobin A1c/Hemoglobin.total in Blood Leda Brown RESAW TAILER.EVENING ANCHOR Work Phone: Start: 01-19-2022 INFLUENZA VACCINE QUADRIVALENT 6 MO - 64 YRS IM Leda Brown RESAW TAILER.EVENING ANCHOR Work Phone: Start: 11-20-2021 STREP A MOLECULAR (POC) Kathy Alejandre RESAW TAILER.EVENING ANCHOR Work Phone: Start: 11-02-2021 MIN DIAG W ROBERT RT Cour mono Seymour RESAW TAILER.CNM Work Phone: Start: 10-13-2021 Hemoglobin A1c/Hemoglobin.total in Blood Leda Older RESAW TAILER.EVENING ANCHOR Work Phone: Start: 10-10-2021 Urnls dip stick/tabl et rgnt auto w/o microscopy Anabela Angulo PA-C Work Phone: Start: 10-06-2021 CBC/DIFF (OUTSIDE [facility]) R jay Mason Work Phone: Start: 09-22-2021 Mammography Mammograph y Coordinator Start: 06-16-2021 Adult depression scr eening assessment Eladio Hoskins RESAW TAILER.EVENING ANCHOR Work Phone: Start: 03-15-2020 Mammography Eladio ohara RESAW TAILER.EVENING ANCHOR Work Phone: Start: 01-22-2020 Colonoscopy Eladio ohara RESAW TAILER.EVENING ANCHOR Work Phone: Start: 01-14-2020 Dup-scan artl marlon abdl/pel/scrot&/rpr orgn lmt Dia Iglesias Work Phone: Plan of Treatment Date Care Activity Detail Author Start: 06-13-2024 Hepatitis B surface antibody level LDL Cholesterol [facility] Start: 05-23-2024 Annual PCP Team Joinery Setter Out tricia Disease Visit Annual PCP Team Chronic Disease Visit [facility] Start: 03-28-2024 Annual PCP Team Joinery Setter Out tricia Disease Visit Annual PCP Team Chronic Disease Visit [facility] Start: 03-28-2024 Colorectal Cancer Screening Colorectal Cancer Screening [facility] Immunizations Immunization Date Immunization Notes Care Provider Flaquita pizano 01-19-2022 influenza, injectabl e, quadrivalent, contains preservative Leda Brown APRN.EVENING ANCHOR Work Phone: [facility] 01-19-2022 influenza virus vaccine, unspecified formulation Leda Brown RESAW TAILER.EVENING ANCHOR Work Phone: [facility] 03-17-2021 influenza, injectabl e, quadrivalent, contains preservative Eladio Hoskins APRN.EVENING ANCHOR Work Phone: [facility] 09-03-2020 COVID-19 vaccine, fu ll dose (MODERNA) Eladio Hoskins APRN.EVENING ANCHOR Work Phone: [facility] 08-06-2020 COVID-19 vaccine, fu ll dose (MODERNA) Eladio Hoskins APRN.EVENING ANCHOR Work Phone: [facility] Work Phone: 01-28-2020 influenza, injectabl e, quadrivalent, contains preservative Eladio Hoskins APRN.EVENING ANCHOR Work Phone: [facility] Work Phone: 02-19-2019 influenza, injectabl e, quadrivalent, contains preservative Eladio Hoskins APRN.EVENING ANCHOR Work Phone: [facility] Payers Date Payer Category Payer Unknown [employer] PPO [id number] 2021-Present [phone] [address] [place] [address] PPO [id number] 2021 Unknown [id number] 2021 Unknown [id number] 1965 Unknown [id number] 1965 Unknown [id number] Social History Date Type Detail Facility Tobacco smoking stat [facility] Sex Assigned At Not on file [facility] [place] Start: 01-22-2019 End: 02-14-2022 Tobacco smoking status NHIS Never smoked tobacco [facility] Start: 01-22-2019 End: 02-14-2022 Tobacco use and exposure Smokeless tobacco non-user [facility] Start: 06-16-2021 End: 05-03-2023 Alcohol intake Ex-drinker (finding) [facility] Start: 01-28-2020 End: 05-18-2020 History SDOH Alcohol Frequency [address] [facility] Start: 01-28-2020 End: 05-18-2020 History SDOH Alcohol Std Drinks [address] [facility] Start: 05-16-2021 History SDOH Alcohol Comment rare [facility] Start: 01-28-2020 History SDOH Social Connections Living [address] [facility] Start: 01-28-2020 History SDOH Physical Activity DPW [address] [facility] Start: 01-28-2020 History SDOH Financial [address] [facility] Start: 05-18-2020 History SDOH Housing Unable to Pay [address] [facility] Start: 01-06-2020 Education [address] [facility] Start: 1965 Sex Assigned At Female [facility] Start: 09-04-2021 End: 01-19-2022 Exposure to SARS-CoV-2 (event) Unable to assess [facility] Work Phone: Start: 2021 End: 02-23-2022 Exposure to SARS-CoV-2 (event) Not sure [facility] Start: 01-28-2020 End: 09-14-2022 History of Social function [place] [facility] Start: 01-28-2020 End: 09-14-2022 Social connection and isolation panel [facility] Do you belong to any clubs or organizations such as latter-day groups, unions, fraternal or athletic groups, or school groups? No [facility] Are you now , , , , never or living with a partner? [facility] How often to you hav e a drink containing alcohol? Monthly or less [facility] How many standard dr inks containing alcohol do you have on a typical day? 1 or [address] [facility] How often do you hav e 6 or more drinks on 1 occasion? Never [facility] How hard is it for y ou to pay for the very basics like food, housing, medical care, and heating Not very hard [facility] Do you feel stress - tense, restless, nervous, or anxious, or unable to sleep at night because your mind is troubled all the time - these days [OSQ] Only a little [facility] (I/We) worried wheth er (my/our) food would run out before (I/we) got money to buy more. Never true [facility] In the past 12 month s, has lack of transportation kept you from medical appointments or from getting medications? No [facility] Start: 01-06-2020 Gender identity Identifies as female gender (finding) [facility] Start: 01-06-2020 Sexual orientation Heterosexual (finding) [facility] Do you feel stress - tense, restless, nervous, or anxious, or unable to sleep at night because your mind is troubled all the time - these days [OSQ] Not at all [facility] (I/We) worried wheth er (my/our) food would run out before (I/we) got money to buy more. DK or Refused [facility] Medical Equipment Procedure Code Equipment Code Equipment Origin al Text Equipment Identifier Dates Start: 05-09-2021 Clinical Notes 08-08-2021 to 06-19-2023 Telephone Encounter - Michelle Hurtado LPN - 06/19/2023 4:00 PM ESTTelephone Encounter - Michelle Hurtado LPN - 06/18/2023 3:12 PM ESTTelephone Encounter - Michelle Hurtado LPN - 06/18/2023 10:55 AM EST Note Date & Type Note Facility 06-19-2023 Miscellaneous Notes Patient has been identified by name and date of : No Patient phones for refill(s): Requested Prescriptions Pending Prescriptions Disp Refills naproxen (NAPROSYN) 500 mg tablet 30 tablet 1 Date of last office visit in primary care: 05/23/2023 Date of next office visit in primary care: 07/05/2023 Please advise. Thank you. Michelle Hurtado LPN. documented in this encounter [facility] 06-18-2023 Miscellaneous Notes Patient has been identified by name and date of : No Patient phones for refill(s): Requested Prescriptions Pending Prescriptions Disp Refills fluticasone (FLONASE) 50 mcg/actuation nasal spray [Pharmacy Med Name: FLUTICASONE PROP 50 MCG SPRAY] 16 g 2 Sig: instill 2 sprays into each nostril once daily Date of last office visit in primary care: 05/23/2023 Date of next office visit in primary care: 07/05/2023 Please advise. Thank you. Michelle Hurtado LPN. documented in this encounter [facility] 06-18-2023 Miscellaneous Notes Patient has been identified by name and date of : No Patient phones for refill(s): Requested Prescriptions Pending Prescriptions Disp Refills lansoprazole (PREVACID) 30 mg capsule [Pharmacy Med Name: LANSOPRAZOLE DR 30 MG CAPSULE] 90 capsule Sig: take 1 capsule by mouth once daily , 1/2 HOUR BEFORE BREAKFAST Date of last office visit in primary care: 05/23/2023 Date of next office visit in primary care: 07/05/2023 Please advise. Thank you. Michelle Hurtado LPN. documented in this encounter [facility] 06-11-2023 Miscellaneous Notes Patient has been identified [...] LPN. documented in this encounter [facility] 05-23-2023 Note HNO ID: [id number] Author: LEDA BROWN APRN.EVENING ANCHOR Service: ? Author Type: Nurse Practitioner Type: [...] puffiness she is following up with her psychiatric np for. Patient denies any side effects of [...] severe allergic reactionDisp: 2 EachRfl: 1 lancets (Frontier Water SystemsTOUCH DELICA PLUS LANCET) 33 gaugeTest blood sugar(s) [...] Skin color, texture, (more content not included)... [facility] 05-03-2023 Note HNO ID: [id number] Author: Luz Nieves, RESAW TAILER.EVENING ANCHOR Service: ? Author Type: Nurse Practitioner Type: [...] and dry. Neurolo (more content not included)... [facility] 05-02-2023 Note HNO ID: [id number] Author: Luz Nieves APRN.EVENING ANCHOR Service: ? Author Type: Nurse Practitioner Type: [...] visit. Either the patient or their legal personal service representative has been informed of the risks and benefits of -- and alternatives to -- treatment through a remote evaluation and consents to proceed with the evaluation remotely. Patient Location: [place] CC: Patient presents with: Covid Follow Up [...] severe allergic reactionDisp: 2 EachRfl: 1 lancets (Hapzing DELICA PLUS LANCET) 33 gaugeTest blood sugar(s) 1 times daily. Dx: Type 2 DM - Controlled E11.9 Insulin: NoDisp: 100 EachRfl: 11 blood sugar diagnostic (A[employer]ure ITUCH ULTRA TEST) test stripuse 1 TEST STRIP [...] use: Never EXAM: (more content not included)... [facility] 04-28-2023 Note HNO ID: [id number] Author: Shiloh Medrano APRN.EVENING ANCHOR Service: ? Author Type: Nurse Practitioner Type: Progress Notes Filed: 04/28/2023 10:06 AM Note Text: Telemedicine Evaluation for COVID-19 Infection MyChart Zoom Video Visit was used for evaluation of this patient. I have communicated my name and active licensure. The patient's identity and physical location were verified at the time of this visit. Either the patient or their legal personal service representative has been informed of the risks [...] Molnupiravir Eligibility and Patient Discussion [facility] Formulary Restriction Criteria: Adult outpatients 18 [...] during treatment a (more content not included)... [facility] 04-16-2023 Note HNO ID: [id number] Author: Rubi Araya PA-C Service: ? Author Type: Physician District Court Bailiff Type: Progress Notes Filed: 04/16/2023 4:26 PM Note Text: This note was created using NoteWriter. Subjective Cassia Holland is a 57 year old female. HPI Presents with nausea, low-grade fever, body aches since this morning. She states she was exposed to COVID and influenza. She was visiting her mother at the half-way and it was going around the half-way. She also was exposed to COVID by [...] severe allergic reaction 2 Each 1 lancets (Hapzing DELICA PLUS LANCET) 33 gauge Test blood sugar(s) 1 times daily. Dx: Type 2 DM - Controlled E11.9 Insulin: No 100 Each 11 blood sugar diagnostic (Azzure ITUCH ULTRA TEST) test strip use 1 TEST [...] injection (DEFINITY) INTRAVENOUS DIRECTED PRN Leda Brown, BOOKER.ANTHONY sodium chloride 0.9 % (flush) 10 mL (BD POSIFLUSH) 10 mL INTRAVENOUS DIRECTED PRN Leda Brown, RESAW TAILER.EVENING ANCHOR PAST SURGICAL HISTORY Procedure Laterality Date D [...] Vitals reviewed. Constitutional: (more content not included)... [facility] 04-16-2023 History of Present illness Narrative This note was created using Stealth Therapeuticsriter. Subjective Cassia Holland is a 57 year old female. HPI Presents with nausea, low-grade fever, body aches since this morning. She states she was exposed to COVID and influenza. She was visiting her mother at the half-way and it was going around the half-way. She also was exposed to COVID by [...] severe allergic reaction 2 Each 1 lancets (Front[employer] Water SystemsTOUCH DELICA PLUS LANCET) 33 gauge Test blood [...] injection (DEFINITY) INTRAVENOUS DIRECTED PRN Leda Brown APRN.EVENING ANCHOR sodium chloride 0.9 % (flush) 10 mL [...] PA-C documented in this encounter [facility] 03-28-2023 Note HNO ID: [id number] Author: Leda Brown APRN.CNP Service: ? Author Type: Nurse Practitioner Type: Progress Notes Filed: 03/28/2023 4:05 PM Note Text: CC: Patient presents with: Follow Up: Hypertension and thyroid HPI Cassia Holland is a 57 year old female who presents today for new onset A-fib. Has been in the ER again at [facility] for palpitations since last being seen for new onset A-fib found in other ER visit 4 weeks ago. Saw her psychiatric np and is scheduling an ablation. Records not available for review. Per patient they switched her BP pills at request of psychiatric np. Per cardiology note. Amlodipine was stopped and [...] severe allergic reactionDisp: 2 EachRfl: 1 lancets ([employer] SystemsTOUCH DELICA PLUS LANCET) 33 gaugeTest blood sugar(s) [...] distress, alert P (more content not included)... [facility] 03-28-2023 History of Present illness Narrative CC: Patient presents with: Follow Up: Hypertension and thyroid HPI Cassia Holland is a 57 year old female who presents today for new onset A-fib. Has been in the ER again at [facility] for palpitations since last being seen for new onset A-fib found in other ER visit 4 weeks ago. Saw her psychiatric np and is scheduling an ablation. Records not available for review. Per patient they switched her BP pills at request of psychiatric np. Per cardiology note. Amlodipine was stopped and [...] severe allergic reaction^Disp: 2 Each^Rfl: 1 lancets ([employer] SystemsTOUCH DELICA PLUS LANCET) 33 gauge^Test blood sugar(s) 1 times daily. Dx: Type 2 DM - Controlled E11.9 Insulin: No^Disp: 100 Each^Rfl: 11 blood sugar diagnostic (Azzure ITUCH ULTRA TEST) test strip^use 1 TEST STRIP [...] Vaccine(1) due on 01/05/2023 Covid-19 Vaccine(3 - season) due on 01/05/2023 Colorectal Cancer Screening [...] Testing Discontinued DATA REVIEWED: Outside chart from [facility] reviewed. [facility] records requested ASSESSMENT/PLAN: 1. [...] APRN.CNP documented in this encounter [facility] 03-20-2023 Miscellaneous Notes Patient has been [...] LPN. documented in this encounter [facility] 03-15-2023 Miscellaneous Notes Was reviewed in appointment with Alexandre. Leda Brown APRN.EVENING ANCHOR documented in this encounter [facility] 03-12-2023 Note HNO ID: [id number] Author: Alexandre Campa PA-C Service: ? Author Type: Physician District Court Bailiff Type: Progress Notes Filed: 03/13/2023 4:47 PM [...] severe allergic reactionDisp: 2 EachRfl: 1 lancets (Front[employer] SystemsTOUCH DELICA PLUS LANCET) 33 gaugeTest blood sugar(s) [...] sclera white, non-i (more content not included)... [facility] 03-12-2023 History of Present illness Narrative [...] severe allergic reaction^Disp: 2 Each^Rfl: 1 lancets (Azzure ITUCH DELICA PLUS LANCET) 33 gauge^Test blood sugar(s) 1 times daily. Dx: Type 2 DM - Controlled E11.9 Insulin: No^Disp: 100 Each^Rfl: 11 blood sugar diagnostic ([employer] SystemsTOUCH ULTRA TEST) test strip^use 1 TEST STRIP [...] testing ordered; Results will be released to [facility] in 24-48 hours. Explained to patient [...] PA-C documented in this encounter [facility] 03-01-2023 Miscellaneous Notes Patient last visit 02/28/23 Follow up appointment scheduled 03/28/23 Chanel Azevedo Ma documented in this encounter [facility] 02-28-2023 Note HNO ID: [id number] Author: Leda Brown APRN.EVENING ANCHOR Service: ? Author Type: Nurse Practitioner Type: Progress Notes Filed: 03/01/2023 4:46 PM Note Text: CC: Patient presents with: Recheck: ER follow up, AFIB HPI Cassia Holland is a 57 year old female who presents today for routine follow-up but was in ER yesterday for new onset A-fib. Facility: [facility] Date of visit: 02/27/23. Sudden onset of [...] sclera white, non (more content not included)... [facility] 02-28-2023 History of Present illness Narrative CC: Patient presents with: Recheck: ER follow up, AFIB HPI Cassia Holland is a 57 year old female who presents today for routine follow-up but was in ER yesterday for new onset A-fib. Facility: [facility] Date of visit: 02/27/23. Sudden onset of [...] severe allergic reaction^Disp: 2 Each^Rfl: 1 lancets (Azzure ITUCH DELICA PLUS LANCET) 33 gauge^Test blood sugar(s) 1 times daily. Dx: Type 2 DM - Controlled E11.9 Insulin: No^Disp: 100 Each^Rfl: 11 blood sugar diagnostic (Azzure ITUCH ULTRA TEST) test strip^use 1 TEST STRIP [...] Vaccine(1) due on 01/05/2023 Covid-19 Vaccine(3 - season) due on 01/05/2023 Colorectal Cancer Screening [...] Testing Discontinued DATA REVIEWED: Outside chart from [facility] reviewed. ASSESSMENT/PLAN: 1. New onset a-fib (HCC) [...] APRN.CNP documented in this encounter [facility] 02-07-2023 Note HNO ID: [id number] Author: Leda Brown APRN.CNP Service: ? Author [...] severe allergic reactionDisp: 2 EachRfl: 1 lancets (Front[employer] SystemsTOUCH DELICA PLUS LANCET) 33 gaugeTest blood sugar(s) 1 times daily. Dx: Type 2 DM - Controlled E11.9 Insulin: NoDisp: 100 EachRfl: 11 blood sugar diagnostic ([employer] SystemsTOUCH ULTRA TEST) test stripuse 1 TEST STRIP [...] non-injected Ears: external (more content not included)... [facility] 01-31-2023 Note HNO ID: [id number] Author: Rubi Araya PA-C Service: ? Author Type: Physician District Court Bailiff Type: Progress Notes Filed: 01/31/2023 5:11 PM Note Text: This note was created using NoteWriter. Subjective Cassia Holland is a 57 year [...] severe allergic reaction 2 Each 1 lancets (Azzure ITUCH DELICA PLUS LANCET) 33 gauge Test blood [...] 10 mL INTRAVENOUS DIRECTED PRN Leda Brown APRN.ANTHONY PAST SURGICAL HISTORY Procedure Laterality Date D [...] Ear: Tympanic membran (more content not included)... [facility] 12-31-2022 Note HNO ID: [id number] Author: John Rodriguez APRN.CNP Service: ? Author [...] with plan of care. Be seen at [facility] for further evaluation care. John Rodriguez APRN.CNP [facility] 12-31-2022 History of Present illness Narrative [...] with plan of care. Be seen at [facility] for further evaluation care. John Rodriguez APRN.CNP documented in this encounter [facility] 12-20-2022 Note HNO ID: [id number] Author: Leda Brown APRN.CNP Service: ? Author [...] with elevation or in AM. Has a [place] [employer] job and is standing all day in [...] severe allergic reactionDisp: 2 EachRfl: 1 lancets (Azzure ITUCH DELICA PLUS LANCET) 33 gaugeTest blood sugar(s) 1 times daily. Dx: Type 2 DM - Controlled E11.9 Insulin: NoDisp: 100 EachRfl: 11 blood sugar diagnostic (Azzure ITUCH ULTRA TEST) test stripuse 1 TEST STRIP [...] refill. Slight non (more content not included)... [facility] 12-20-2022 Instructions Leda Brown APRN.CNP - 12/20/2022 5:35 PM EDT Get compression socks and wear during the day to help decrease edema. Elevate legs as able documented in this encounter [facility] 12-20-2022 History of Present illness Narrative [...] with elevation or in AM. Has a [place] [employer] job and is standing all day in [...] severe allergic reaction^Disp: 2 Each^Rfl: 1 lancets (Frontier Water SystemsTOUCH DELICA PLUS LANCET) 33 gauge^Test blood sugar(s) 1 times daily. Dx: Type 2 DM - Controlled E11.9 Insulin: No^Disp: 100 Each^Rfl: 11 blood sugar diagnostic (Frontier Water SystemsTOUCH ULTRA TEST) test strip^use 1 TEST STRIP [...] APRN.CNP documented in this encounter [facility] 12-19-2022 Miscellaneous Notes Patient notified, scheduled for tomorrow with Leda. Patient was to follow-up for any recurrent symptoms per Leda Brown's office visit note. Please schedule Luz Brown APRN.CNP Pt seen in twice & with CLARITZA Brown on 12/14/22 [...] LPN documented in this encounter [facility] 12-14-2022 Note HNO ID: [id number] Author: Leda Brown APRN.EVENING ANCHOR Service: ? Author Type: Nurse Practitioner Type: Progress Notes Filed: 12/15/2022 7:20 AM Note Text: CC: Patient presents with: Recheck: 3 month follow up HPI Cassia Holland is a 57 year old female who presents today for routine follow up but has been to the ER twice since last visit and 2 express care visit. 11/27 - went to [place] ER for increase in RUQ pain and severe nausea. US of abdomen showed cirrhosis of liver which is not new for her and a possible gallbladder polyp. CT showed 5mm possible ureter stone. Had a CT urogram by Dr. Wylie last week which per patient was normal. Has EGD scheduled with her wax pot tender for ongoing nausea and pain in January. Repeat abdominal CT on 12/07 with no concerns outside of her known liver disease. RUQ pain is at baseline except last night had episode after eating a large meal of yakut fries and BBQ sandwich. Self resolved during the night No vomiting, diarrhea, fever, chest pain, shortness of breath, or palpitations. 12/03 - went back to [facility] ER for RLE swelling and red without [...] Has a heart cath being performed by [facility] at the end of this month: REVIEW [...] severe allergic reactionDisp: 2 EachRfl: 1 lancets (Front[employer] Water SystemsTOUCH DELICA PLUS LANCET) 33 gaugeTest blood sugar(s) [...] kitDisp: 1 Eac (more content not included)... [facility] 12-14-2022 History of Present illness Narrative CC: Patient presents with: Recheck: 3 month follow up HPI Cassia Holland is a 57 year old female who presents today for routine follow up but has been to the ER twice since last visit and 2 express care visit. 11/27 - went to [facility] ER for increase in RUQ pain and severe nausea. US of abdomen showed cirrhosis of liver which is not new for her and a possible gallbladder polyp. CT showed 5mm possible ureter stone. Had a CT urogram by Dr. Wylie last week which per patient was normal. Has EGD scheduled with her wax pot tender for ongoing nausea and pain in January. Repeat abdominal CT on 12/07 with no concerns outside of her known liver disease. RUQ pain is at baseline except last night had episode after eating a large meal of yakut fries and BBQ sandwich. Self resolved during the night No vomiting, diarrhea, fever, chest pain, shortness of breath, or palpitations. 12/03 - went back to [facility] for RLE swelling and red without [...] Has a heart cath being performed [facility] at the end of this month: REVIEW [...] severe allergic reaction^Disp: 2 Each^Rfl: 1 lancets (Frontier Water SystemsTOUCH DELICA PLUS LANCET) 33 gauge^Test blood sugar(s) 1 times daily. Dx: Type 2 DM - Controlled E11.9 Insulin: No^Disp: 100 Each^Rfl: 11 blood sugar diagnostic (Front[employer] SystemsTOUCH ULTRA TEST) test strip^use 1 TEST STRIP [...] TESTING Discontinued DATA REVIEWED: Outside chart from [facility] reviewed. ASSESSMENT/PLAN: 1. Cellulitis of right lower [...] baseline - continue with upcoming EGD with Transmitter Chief - if negative or no cause for [...] APRN.CNP documented in this encounter [facility] 12-09-2022 Note HNO ID: [id number] Author: John Rodriguez APRN.CNP Service: ? Author [...] allergic reactionDisp: 2 EachRfl: 1 - lancets (Frontier Water SystemsTOUCH DELICA PLUS LANCET) 33 gaugeTest blood sugar(s) 1 times daily. Dx: Type 2 DM - Controlled E11.9 Insulin: NoDisp: 100 EachRfl: 11 - blood sugar diagnostic (Frontier Water SystemsTOUCH ULTRA TEST) test stripuse 1 TEST STRIP [...] General: She is (more content not included)... [facility] 12-09-2022 Note HNO ID: [id number] Author: John Rodriguez APRN.EVENING ANCHOR Service: ? Author Type: Nurse Practitioner Type: Progress Notes Filed: 12/09/2022 3:11 PM Note Text: Subjective HPI ROS Objective Physical Exam [facility] 12-09-2022 History of Present illness Narrative [...] severe allergic reaction^Disp: 2 Each^Rfl: 1 lancets (Front[employer] SystemsTOUCH DELICA PLUS LANCET) 33 gauge^Test blood sugar(s) 1 times daily. Dx: Type 2 DM - Controlled E11.9 Insulin: No^Disp: 100 Each^Rfl: 11 blood sugar diagnostic (Front[employer] SystemsTOUCH ULTRA TEST) test strip^use 1 TEST STRIP [...] of care. This note was generated using edulio software. It may contain errors in wording, punctuation, or spelling. John Rodriguez APRN.EVENING ANCHOR Subjective HPI ROS Objective Physical Exam documented in this encounter [facility] 12-03-2022 Note HNO ID: [id number] Author: Rubi Araya PA-C Service: ? Author Type: Physician District Court Bailiff Type: Progress Notes Filed: 12/03/2022 11:19 AM Note Text: This note was created using [employer] The[employer]. Subjective Cassia Holland is a 57 year [...] severe allergic reaction 2 Each 1 lancets (Azzure ITUCH DELICA PLUS LANCET) 33 gauge Test blood [...] 10 mL INTRAVENOUS DIRECTED PRN Leda Brown APRN.EVENING ANCHOR PAST SURGICAL HISTORY Procedure Laterality Date D [...] She will go (more content not included)... [facility] 12-03-2022 History of Present illness Narrative This note was created using NoteWriter. Subjective Cassia Holland is a 57 year [...] severe allergic reaction 2 Each 1 lancets (Frontier Water SystemsTOUCH DELICA PLUS LANCET) 33 gauge Test blood sugar(s) 1 times daily. Dx: Type 2 DM - Controlled E11.9 Insulin: No 100 Each 11 blood sugar diagnostic (Frontier Water SystemsTOUCH ULTRA TEST) test strip use 1 TEST [...] injection (DEFINITY) INTRAVENOUS DIRECTED PRN Leda Brown, BOOKER.ANTHONY sodium chloride 0.9 % (flush) 10 mL (BD POSIFLUSH) 10 mL INTRAVENOUS DIRECTED PRN Leda Brown, BOOKER.EVENING ANCHOR PAST SURGICAL HISTORY Procedure Laterality Date D [...] the emergency department. She will go to [facility] ER. Rubi Araya PA-C documented in this encounter [facility] 11-28-2022 Note Patient Outreach (IN TMMN) CASSIA HOLLAND ([id number]) 1965 F Date Time Provider Department 11/28/22 [...] Order(s):ALBUMIN/CREAT RATIO RND UR [SQUACR] Order #: [id number] FUTURE LIPID PANEL BASIC [SQLIPB] Order #: [id number] FUTURE Prescriptions as of 12/01/2022 - fluticasone [...] directed for severe allergic reaction - lancets (Frontier Water SystemsTOUCH DELICA PLUS LANCET) 33 gauge Test blood sugar(s) 1 times daily. Dx: Type 2 DM - Controlled E11.9 Insulin: No - blood sugar diagnostic (Front[employer] SystemsTOUCH ULTRA TEST) test strip use 1 TEST [...] [M79.7] Cervicalgia [M54.2] 04/07/2021 Encounter Status:Closed by [employer] on 12/01/22 [facility] 11-20-2022 Miscellaneous Notes The following approved [...] LPN documented in this encounter [facility] 11-10-2022 Miscellaneous Notes November 13, 2022 PID: [id number] Cassia Holland [address] [place] [address] Dear Ms. Holland, We are pleased to [...] be kept on file at [facility] as part of your permanent medical record and are available for your continuing care. Thank you for allowing us to help in meeting your health care needs. Sincerely, Dr. Elam Interpreting Radiologist [facility] (Normal over 40) documented in this encounter [facility] 10-30-2022 Miscellaneous Notes Patient has been [...] LPN documented in this encounter [facility] 10-12-2022 Note HNO ID: [id number] Author: Chhaya Crowe MD Service: ? Author Type: Physician Type: Progress Notes Filed: 10/12/2022 10:57 AM Note Text: Jazz Musician offered: Patient declinesLloyd Florez is a 57 year old who presents for an annual gynecologic exam with complaints, fatigue . Postmenopausal: Yes HRT use: No. History of abnormal pap: No - no LEEP or CKC Last mammogram: 2021 had diagnostic imaging, dense breast tissue Patient concerns for STD exposure: No. OB History T0 L0 SAB0 IAB0 Ectopic0 Multiple0 Live Births0 Charter Representative History LMP: Hysterectomy Age at Menarche: Age at First : Age at Menopause: Charter Representative History Comments: Sexual Activity: Not Currently; No [...] and swelling present, normal Bartholin's glands, urethra, Coleta's glands, no vulvar lesions, good vaginal support, [...] or sooner as needed Chhaya Crowe DO [facility] 10-12-2022 Instructions Chhaya Crowe MD - 10/12/2022 10:49 AM EDT - Use prescribed creams BID for 2 weeks. If symptoms return, call the office for a follow up appointment and would recommend biopsy at that time. If symptoms improve, can start estrogen cream nightly for 2 weeks and then 2 days a week documented in this encounter [facility] 10-12-2022 History of Present illness Narrative Jazz Musician offered: Patient declines. Cassia is a 57 year old who presents for an annual gynecologic exam with complaints, fatigue . Postmenopausal: Yes HRT use: No. History of abnormal pap: No - no LEEP or CKC Last mammogram: 2021 had diagnostic imaging, dense breast tissue Patient concerns for STD exposure: No. OB History T0 L0 SAB0 IAB0 Ectopic0 Multiple0 Live Births0 Charter Representative History LMP: Hysterectomy Age at Menarche: Age at First : Age at Menopause: Charter Representative History Comments: Sexual Activity: Not Currently; No [...] and swelling present, normal Bartholin's glands, urethra, Coleta's glands, no vulvar lesions, good vaginal support, [...] DO documented in this encounter [facility] 10-09-2022 Miscellaneous Notes Patient has been [...] LPN documented in this encounter [facility] 09-21-2022 Note HNO ID: [id number] Author: Ariadna Pérez RDMS Service: ? Author Type: Captain Airline Pilot Type: Progress Notes Filed: 09/21/2022 7:32 AM [...] Pérez RDMS September 21, 2022 7:31 AM [facility] 09-21-2022 History of Present illness Narrative [...] AM documented in this encounter [facility] 09-14-2022 Note HNO ID: [id number] Author: Leda Brown APRN.EVENING ANCHOR Service: ? Author Type: Nurse Practitioner Type: [...] a calcium scoring test as ordered by [facility]. Has some dizziness she attributes [...] to achy pressure to RUQ. Sees her wax pot tender at the end of October for follow [...] in each nost (more content not included)... [facility] 09-14-2022 History of Present illness Narrative [...] a calcium scoring test as ordered by [facility]. Has some dizziness she attributes [...] to achy pressure to RUQ. Sees her wax pot tender at the end of October for follow [...] severe allergic reaction^Disp: 2 Each^Rfl: 1 lancets (Azzure ITUCH DELICA PLUS LANCET) 33 gauge^Test blood sugar(s) 1 times daily. Dx: Type 2 DM - Controlled E11.9 Insulin: No^Disp: 100 Each^Rfl: 11 blood sugar diagnostic (Azzure ITUCH ULTRA TEST) test strip^use 1 TEST STRIP [...] APRN.CNP documented in this encounter [facility] 09-04-2022 Note HNO ID: [id number] Author: Leda Brown APRN.CNP Service: ? Author [...] to both maxill (more content not included)... [facility] 09-04-2022 History of Present illness Narrative CC: Patient presents with: Head Congestion: Head congestion, cough, sinus pain, headaches x 3 days HPI aCssia Holland is a 56 year old female [...] severe allergic reaction^Disp: 2 Each^Rfl: 1 lancets (Hapzing DELICA PLUS LANCET) 33 gauge^Test blood sugar(s) 1 times daily. Dx: Type 2 DM - Controlled E11.9 Insulin: No^Disp: 100 Each^Rfl: 11 blood sugar diagnostic (Azzure ITUCH ULTRA TEST) test strip^use 1 TEST STRIP [...] APRN.CNP documented in this encounter [facility] 08-28-2022 Miscellaneous Notes Spoke with patient, will come and get labs done. PSS states Endocrinology will coming to [place] in the next month. Please let patient know below information. We can recheck her thyroid levels and continue to monitor this. Once resulted, if abnormal, can send again to [facility] but I can try to have her schedule with endocrinology through [facility] which would require going outside of [place] travel. Thank you Leda Brown APRN.CNP [facility] calling states there was a referral sent over on pt .Doctor viewed this and states no reason for them to see her because all her tests are normal. documented in this encounter [facility] 08-17-2022 Note HNO ID: [id number] Author: Leda Brown APRN.CNP Service: ? Author Type: Nurse Practitioner Type: Progress Notes Filed: 08/17/2022 9:21 AM Note Text: CC: Patient presents with: Recheck: Follow up, discuss Thyroid HPI Cassia Holland is a 56 year old female who presents today for thyroid concerns. History of Graves Disease with overactive disorder in early 1999s and was PTU to keep symptoms under [...] in the 150s/90s range. Was seen by [facility] few days ago and [...] severe allergic reactionDisp: 2 EachRfl: 1 lancets ([employer] SystemsTOUCH DELICA PLUS LANCET) 33 gaugeTest blood sugar(s) [...] daily. For 7 (more content not included)... [facility] 08-17-2022 History of Present illness Narrative [...] in the 150s/90s range. Was seen by [facility] few days ago and [...] severe allergic reaction^Disp: 2 Each^Rfl: 1 lancets (Azzure ITUCH DELICA PLUS LANCET) 33 gauge^Test blood sugar(s) 1 times daily. Dx: Type 2 DM - Controlled E11.9 Insulin: No^Disp: 100 Each^Rfl: 11 blood sugar diagnostic (Azzure ITUCH ULTRA TEST) test strip^use 1 TEST STRIP [...] send to endocrinology, patient wants faxed to [facility] - CONSULT TO ENDOCRINOLOGY 2. History [...] APRN.CNP documented in this encounter [facility] 07-27-2022 Miscellaneous Notes Noted. Leda Brown APRN.CNP Faxed cardiology referral to [facility], per patient request. States it is more convenient for her to see cardiology there. Asking message be sent to Claritza Tompkins, to let her know. documented in this encounter [facility] 07-26-2022 Miscellaneous Notes Spoke to pt. States she is unavailable to come on Mondays due to her work schedule. This nurse informed her that we are currently only offering Cardiology in [place] on Mondays. Pt. states she is willing to drive to [place] for Cardiology services and that she will [...] sooner. documented in this encounter [facility] 07-26-2022 Miscellaneous Notes Pt called and is notified of providers results and instructions. Pt voices understanding. Pt put through to scheduling to set up Cardiology appointment. Reyna Lamb RN Left detailed message on Von[employer] VM. Please assist in scheduling. Please let patient know her heart monitor did show her heart rate speeding up at times for short bursts. I am going to have her see cardiology for further evaluation of this. Thank you Leda Brown APRN.ANTHONY documented in this encounter [facility] 07-21-2022 Miscellaneous Notes Patient notified. Please [...] LPN documented in this encounter [facility] 07-17-2022 Note HNO ID: [id number] Author: Josr Mathews MD Service: ? Author [...] itching. 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 - has an ongoing uti. 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 (more content not included)... [facility] 07-17-2022 Miscellaneous Notes Addended by: JOSR MATHEWS on: 07/17/2022 04:48 PM Modules accepted: Orders documented in this encounter [facility] 07-17-2022 History of Present illness Narrative [...] itching. 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 - has an ongoing uti. He is seeing uro-TANGLED YARN WORKER and was given Macrobid which she is [...] EPINEPHrine (EPIPEN) 0.3 mg/0.3 mL auto-injector lancets (Azzure ITUCH DELICA PLUS LANCET) 33 gauge blood sugar diagnostic (Azzure ITUCH ULTRA TEST) test strip levalbuterol tartrate HFA [...] MD documented in this encounter [facility] 07-11-2022 Miscellaneous Notes Patient has been [...] LPN documented in this encounter [facility] 06-26-2022 Note HNO ID: [id number] Author: Leda Brown APRN.EVENING ANCHOR Service: ? Author Type: Nurse Practitioner Type: [...] 1 lancets (ONETOUC (more content not included)... [facility] 06-26-2022 History of Present illness Narrative [...] severe allergic reaction^Disp: 2 Each^Rfl: 1 lancets (Hapzing DELICA PLUS LANCET) 33 gauge^Test blood sugar(s) 1 times daily. Dx: Type 2 DM - Controlled E11.9 Insulin: No^Disp: 100 Each^Rfl: 11 blood sugar diagnostic (Azzure ITUCH ULTRA TEST) test strip^use 1 TEST STRIP [...] disorders. Will have her discuss with her president [employer] to see if this chronic inflammation is [...] APRN.CNP documented in this encounter [facility] 06-23-2022 Miscellaneous Notes Lab work reviewed. Will review with patient at upcoming visit. Leda Brown APRN.CNP No current lab work completed at [facility]. Last blood work printed and given to provider. Please see if patient has any previous lab work at [facility] to compare current lab results to. Thank you Leda Brown APRN.CNP documented in this encounter [facility] 06-15-2022 History of Present illness Narrative [...] severe allergic reaction^Disp: 2 Each^Rfl: 1 lancets (Hapzing DELICA PLUS LANCET) 33 gauge^Test blood sugar(s) 1 times daily. Dx: Type 2 DM - Controlled E11.9 Insulin: No^Disp: 100 Each^Rfl: 11 blood sugar diagnostic (Azzure ITUCH ULTRA TEST) test strip^use 1 TEST STRIP [...] enlargement and left ventricular hypertrophy INTERVALS: Normal DE interval QRS COMPLEX: Normal ST SEGMENT: Normal [...] history of lupus she sees an outside president consumer [employer] company for so may need to contact office [...] Patient agreeable to treatment plan. Leda Brown APRN.ANTHONY documented in this encounter [facility] 06-13-2022 Miscellaneous Notes Rec'd approval for nebivolol hcl 06/12/22 to 06/12/23. documented in this encounter [facility] 06-12-2022 Miscellaneous Notes Mauro with [facility] calling and requesting most recent OV note for patient for prior authorization process for [facility]. Faxed as requested to Mauro at [phone]. Marisabel Sarabia RN documented in this encounter [facility] 04-20-2022 Miscellaneous Notes Atavistt message sent to patient, no number on paper work to have them Faxed. Please fax papers as requested and then update patient this has been completed. Thank you Leda Brown APRN.CNP documented in this encounter [facility] 04-20-2022 Miscellaneous Notes Addressed in other mychart encounter. Leda Brown APRN.CNP documented in this encounter [facility] 04-19-2022 Miscellaneous Notes See other my chart encounter Leda Brown APRN.CNP documented in this encounter [facility] 04-17-2022 History of Present illness Narrative CC: Patient presents with: URI: Started with sinus drainage last week on Sunday. Cough and congestion. Moved into chest congestion. HPI Cassia Holland is a 56 year old female who presents today for sinus congestion since last Sunday. Works at a [employer] and has had quite a few customers [...] per directed for severe allergic reaction lancets (Frontier Water SystemsTOUCH DELICA PLUS LANCET) 33 gauge Test blood [...] APRN.CNP documented in this encounter [facility] 03-17-2022 Miscellaneous Notes Patient requesting Urology referral order and information be faxed to Dr. Wylie's office at [phone]. Faxed as requested. Marisabel Sarabia RN documented in this encounter [facility] 03-17-2022 Miscellaneous Notes See other my chart encounter. Leda Brown APRN.CNP documented in this encounter [facility] 03-09-2022 Miscellaneous Notes Patient phones requesting refills as follows: Requested Prescriptions Pending Prescriptions Disp Refills montelukast (SINGULAIR) 10 mg tablet [Pharmacy Med Name: MONTELUKAST SOD 10 MG TABLET] 30 tablet 11 Sig: take 1 tablet by mouth once daily REGULO-02/14/22 Labs-02/23/22 NOV-07/20/22 med filled 02/07/21 Please review and advise. Yanci Horowitz LPN documented in this encounter [facility] 02-24-2022 Miscellaneous Notes Left detailed message on secure VM. Please let patient know her urine does indicate a UTI. I am starting her on Keflex/Cephalexin twice a day for 7 days. I do not have the culture back yet, but will let her know once I do. Thank you Leda Brown APRN.ANTHONY documented in this encounter [facility] 02-17-2022 Miscellaneous Notes Tracy, Could you please address this, Thanks documented in this encounter [facility] 02-15-2022 Miscellaneous Notes Patient telephoned and made aware. Meg Myers LPN Please call patient and let her know her COVID-19 test and flu testing are negative. Tracy Mendes APRN.ANTHONY documented in this encounter [facility] 02-14-2022 History of Present illness Narrative [...] for similar symptoms. Follows with ENT in [place] for allergies. Denies wheezing, dyspnea, nausea, vomiting [...] per directed for severe allergic reaction lancets (Frontier Water SystemsTOUCH DELICA PLUS LANCET) 33 gauge Test blood sugar(s) 1 times daily. Dx: Type 2 DM - Controlled E11.9 Insulin: No blood sugar diagnostic (Frontier Water SystemsTOUCH ULTRA TEST) test strip use 1 TEST [...] to ER with red flag symptoms Tracy Podlogar, RESAW TAILER.EVENING ANCHOR Prescription instructions reviewed with patient as applicable. [...] which included preparing to see the patient, [id number] patient care, completing clinical documentation, obtaining and/or reviewing separately obtained history, performing a medically appropriate examination, counseling and educating the patient/family/caregiver, and ordering medications, tests, or procedures. documented in this encounter [facility] 02-07-2022 History of Present illness Narrative [...] per directed for severe allergic reaction lancets (Azzure ITUCH DELICA PLUS LANCET) 33 gauge Test blood sugar(s) 1 times daily. Dx: Type 2 DM - Controlled E11.9 Insulin: No blood sugar diagnostic (Azzure ITUCH ULTRA TEST) test strip use 1 TEST [...] Discussed expected course of illness Kathy Alejandre APRN.EVENING ANCHOR documented in this encounter [facility] 02-07-2022 Instructions Kathy Alejandre APRN.EVENING ANCHOR - 02/07/2022 11:26 AM EDT ASSESSMENT/PLAN: 1. [...] Discussed expected course of illness Kathy Alejandre APRN.EVENING ANCHOR How to Manage Common Symptoms Associated with [...] to your local emergency facility: Notify the ingot buggy operator that you are seeking care for [...] others. documented in this encounter [facility] 01-19-2022 History of Present illness Narrative [...] per directed for severe allergic reaction lancets (Frontier Water SystemsTOUCH DELICA PLUS LANCET) 33 gauge Test blood sugar(s) 1 times daily. Dx: Type 2 DM - Controlled E11.9 Insulin: No blood sugar diagnostic (Frontier Water SystemsTOUCH ULTRA TEST) test strip use 1 TEST [...] APRN.CNP documented in this encounter [facility] 12-19-2021 Miscellaneous Notes Patient has been [...] LPN documented in this encounter [facility] 12-07-2021 Miscellaneous Notes Consult and imaging faxed to provider as requested. Please fax consult to MDs as requested. Thank you Leda Brown APRN.CNP Please call patient to schedule hepatology consult. Thank you Leda Brown APRN.CNP Placed on desk. Please get liver scan results from [facility] and lay on my desk. Thank you Leda Brown APRN.ANTHONY documented in this encounter [facility] 11-20-2021 History of Present illness Narrative [...] per directed for severe allergic reaction lancets (Azzure ITUCH DELICA PLUS LANCET) 33 gauge Test blood sugar(s) 1 times daily. Dx: Type 2 DM - Controlled E11.9 Insulin: No blood sugar diagnostic (Azzure ITUCH ULTRA TEST) test strip use 1 TEST [...] Discussed expected course of illness Kathy Alejandre APRN.ANTHONY documented in this encounter [facility] 11-20-2021 Instructions Kathy Alejandre APRN.ANTHONY - [...] - Discussed expected course of illness Kathy Alejandre, BOOKER.EVENING ANCHOR Beginning Home Isolation Isolation is used to [...] to your local emergency facility: Notify the ingot buggy operator that you are seeking care for [...] you. documented in this encounter [facility] 11-16-2021 Miscellaneous Notes Patient has been [...] LPN documented in this encounter [facility] 11-02-2021 History of Present illness Narrative [...] PM documented in this encounter [facility] 10-19-2021 Miscellaneous Notes [facility] Ultrasound calling asking for copy of report for RUQ ultrasound and spleen to be faxed to [phone]. Printed reports and faxed as requested. Order faxed. Please fax order to [facility]. Thank you Leda Brown APRN.CNP documented in this encounter [facility] 10-13-2021 History of Present illness Narrative [...] per directed for severe allergic reaction lancets (Frontier Water SystemsTOUCH DELICA PLUS LANCET) 33 gauge Test blood sugar(s) 1 times daily. Dx: Type 2 DM - Controlled E11.9 Insulin: No blood sugar diagnostic (Azzure ITUCH ULTRA TEST) test strip use 1 TEST [...] will further evaluate. Recent labs reviewed at [facility] and [facility] No recent CMP completed, but CBC without [...] APRN.CNP documented in this encounter [facility] 10-10-2021 History of Present illness Narrative [...] history is provided by the patient. No speech/language therapist was used. UTI This is a new [...] per directed for severe allergic reaction lancets (Front[employer] Water SystemsTOUCH DELICA PLUS LANCET) 33 gauge Test blood [...] result done 2 days ago at her [employer] office which showed 2+ bacteria, 2+ leukocytes, nitrates. Kathy Alejandre APRN.ANTHONY TEACHING PROVIDER (Physician/PA/RESAW TAILER) NOTE OF PERSONAL INVOLVEMENT IN CARE: I have personally seen and examined the patient and performed the medical decision-making components. I have reviewed the Advanced Practice Registered Nurse (RESAW TAILER) Student's documentation and verified the findings in the note as written. Any additions or changes are noted in bold/italics. Signature: Kathy Alejandre Date: 10/10/2021 Time: 7:50 PM documented in this encounter [facility] 10-10-2021 Instructions Ximena Narvaez - 10/10/2021 [...] back documented in this encounter [facility] 09-22-2021 Miscellaneous Notes September 22, 2021 PID: [id number] Cassia Holland [address] [place] [address] Dear Ms. Holland, Your recent breast imaging [...] who ordered/prescribed your screening mammogram: Please call [phone] or EXT: [phone] to schedule an appointment for your additional [...] are kept on file at [facility] as part of your permanent medical record, and are available for your continuing care. Thank you for allowing us to help in meeting your health care needs. Sincerely, Dr. Swain Interpreting Radiologist [facility] (Additional imaging) documented in this encounter [facility] 09-19-2021 Instructions Dyana Valadez APRN.CNP - 09/19/2021 3:35 PM EDT 1. Routine course of ibuprofen X 1 week. 2. Ice to the area. 3. If no better or any worsening, let us know. documented in this encounter [facility] 09-19-2021 History of Present illness Narrative [...] Refers that it is hit or miss. [place] like it may be a little larger [...] per directed for severe allergic reaction lancets ([employer] SystemsTOUCH DELICA PLUS LANCET) 33 gauge Test blood sugar(s) 1 times daily. Dx: Type 2 DM - Controlled E11.9 Insulin: No blood sugar diagnostic ([employer] SystemsTOUCH ULTRA TEST) test strip use 1 TEST [...] plan. This note was partially generated using edulio voice recognition system. Note was reviewed for accuracy. There may be minor misspellings or grammar miscues with edulio voice recognition. documented in this encounter [facility] 08-08-2021 Miscellaneous Notes NOV 09/15/21 REGULO [...] MA documented in this encounter [facility] Diagnosis Abnormal mammogram- Primary Abnormal mammogram, unspecified [facility] Diagnosis Frequency of urination- Primary Urinary frequency [facility] Diagnosis Xyphoidalgia- Primary Disorder of bone and cartilage, unspecified RUQ pain Abdominal pain, right upper quadrant Nausea Nausea alone Type 2 diabetes mellitus without complication, without long-term current use of insulin (HCC) [facility] Diagnosis Elevated liver enzymes- Primary Other nonspecific abnormal serum enzyme levels Fatty liver Other chronic nonalcoholic liver disease [facility] Diagnosis Mastalgia Mastodynia [facility] Diagnosis Sore throat- Primary Acute pharyngitis Exposure to COVID-19 virus [facility] Liver fibrosis- Primary Cirrhosis of liver without mention of alcohol Elevated liver enzymes Other nonspecific abnormal serum enzyme levels [facility] Diagnosis Type 2 diabetes mellitus without [...] influenza [facility] Diagnosis Suspected COVID-19 virus infection- Primary [facility] Diagnosis Upper respiratory symptom- Primary Other symptoms involving respiratory system and chest UTI symptoms Other symptoms involving urinary system [facility] Diagnosis Type 2 diabetes mellitus without complication, without long-term current use of insulin (HCC) documented in this encounter [facility] note* Diagnosis Other acute sinusitis, recurrence not specified- Primary documented in this encounter [facility] note* Diagnosis Fatigue, unspecified type- Primary Acute cough Shortness of breath documented in this encounter [facility] note* Diagnosis Type 2 diabetes mellitus without complication, without long-term current use of insulin (HCC) documented in this encounter [facility] note* Diagnosis Chest pain, unspecified type- Primary Palpitations Headaches Type 2 diabetes mellitus without complication, without long-term current use of insulin (HCC) Hypertension, unspecified type documented in this encounter [facility] note* Diagnosis Chest pain, unspecified type- Primary Palpitations Type 2 diabetes mellitus without complication, without long-term current use of insulin (HCC) Hypertension, unspecified type Xyphoidalgia Disorder of bone and cartilage, unspecified Headaches documented in this encounter [facility] note* Diagnosis Viral illness- Primary Unspecified viral infection, in conditions classified elsewhere and of unspecified site documented in this encounter [facility] note* Diagnosis SVT (supraventricular tachycardia) ([facility])- Primary Other specified cardiac dysrhythmias documented in this encounter [facility] note* Diagnosis Graves disease- Primary Toxic diffuse goiter without mention of thyrotoxic crisis or storm History of Srini thyroiditis Personal history of other endocrine, metabolic, and immunity disorders Hypertension, unspecified type Acute non-recurrent maxillary sinusitis documented in this encounter [facility] note* Diagnosis Graves disease- Primary Toxic diffuse goiter without mention of thyrotoxic crisis or storm History of Srini thyroiditis Personal history of other endocrine, metabolic, and immunity disorders Palpitations documented in this encounter [facility] note* Diagnosis Acute recurrent sinusitis, unspecified location- Primary documented in this encounter [facility] note* Diagnosis Type 2 diabetes mellitus without complication, without long-term current use of insulin (HCC)- Primary Hypertension, unspecified type Liver fibrosis Cirrhosis of liver without mention of alcohol RUQ pain Abdominal pain, right upper quadrant Vaginal candidiasis Candidiasis of vulva and vagina Palpitations documented in this encounter [facility] note* Diagnosis Encounter for gynecological examination (general) (routine) without abnormal findings- Primary Encounter for screening mammogram for breast cancer Vaginal itching Pruritus of genital organs Dense breast tissue on mammogram Vulvar itching Pruritus of genital organs Vulvar candidiasis Candidiasis of vulva and vagina [facility] Diagnosis Diabetes (HCC) Type II or unspecified type diabetes mellitus without mention of complication, not stated as uncontrolled documented in this encounter [facility] note* Diagnosis Leg swelling- Primary Swelling of limb [facility] Diagnosis Bacterial sinusitis- Primary Unspecified sinusitis (chronic) documented in this encounter [facility] note* Diagnosis Cellulitis of right lower extremity- Primary Cellulitis and abscess of leg, except foot Subacute sinusitis, unspecified location RUQ pain Abdominal pain, right upper quadrant Liver fibrosis Cirrhosis of liver without mention of alcohol Type 2 diabetes mellitus without complication, without long-term current use of insulin (HCC) [facility] Diagnosis Cellulitis of right lower extremity- Primary Cellulitis and abscess of leg, except foot Dependent edema Edema [facility] Diagnosis Procedure not carried out- Primary Procedure not carried out for other reasons [facility] Diagnosis New onset a-fib (HCC)- Primary Atrial fibrillation Type 2 diabetes mellitus without complication, without long-term current use of insulin (HCC) [facility]* Diagnosis Encounter for screening mammogram for breast cancer Dense breast tissue on mammogram [facility] Diagnosis Liver fibrosis Cirrhosis of liver without mention of alcohol [facility] Diagnosis Chronic sinusitis, unspecified location- Primary [facility] Diagnosis New onset a-fib (HCC)- Primary Atrial fibrillation [facility] Diagnosis Viral illness- Primary Unspecified viral infection, in conditions classified elsewhere and of unspecified site documented in this encounter [facility] for referral (narrative)* Diagnostic Procedure Only (Routine) - Pending Review Specialty Diagnoses / Procedures Referred By Abeba moe Referred To Contact [facility] Diagnoses Abnormal mammogram Procedures MIN DIAGNOSTIC RT DIAGNOSTIC MAMMOGRAPHY COMPUTER-AIDED DETCJ Hui Tijerina [place] [address] [facility] [address] [place] [address] Referral ID Status Reason Start Date Expiration Date Visits Requested Visits Authorized [id number] Pending Review Auto-Generat ed Referral 09/26/2021 10/26/2022 1 1 * Diagnostic Procedure Only (Routine) - Pending Review Specialty Diagnoses / Procedures Referred By Contac t Referred To Contact [facility] Diagnoses Abnormal mammogram Procedures US BREAST LTD RT US BREAST UNI REAL TIME WITH IMAGE LIMITED Hui Lewis APRN.EVENING ANCHOR [address] [place] [address] [facility] [address] [place] [address] Referral ID Status Reason Start Date Expiration Date Visits Requested Visits Authorized [id number] Pending Review Auto-Generat ed Referral 09/26/2021 10/26/2022 1 1 [facility] for referral (narrative)* Diagnostic Procedure Only (Routine) - Closed Specialty Diagnoses / Procedures Referred By Contac t Referred To Contact [facility] IMAG[facility] Diagnoses Type 2 diabetes mellitus without complication, without long-term current use of insulin (HCC) Procedures XR STERNUM 2V DESAI/LAT RADEX STERNUM MINIMUM 2 VIEWS Leda Brown APRN.EVENING ANCHOR [address] [place] [address] X[facility] Referral ID Status Reason Start Date Expiration Date V isits Requested Visits Authorized [id number] Closed Auto-Generate d Referral 10/13/2021 05/06/2022 1 1 * Diagnostic Procedure Only (Routine) - Closed Specialty Diagnoses / Procedures Referred By Contac t Referred To Contact [facility] Diagnoses Type 2 diabetes mellitus without complication, without long-term current use of insulin (HCC) RUQ pain Nausea Procedures US ABD RT UPPER QUADRANT US ABDOMINAL REAL TIME W/IMAGE LIMITED Leda Brown APRN.EVENING ANCHOR [address] [place] [address] [facility] Referral ID Status Reason Start Date Expiration Date V isits Requested Visits Authorized [id number] Closed Auto-Generate d Referral 10/13/2021 05/06/2022 1 1 [facility] for referral (narrative)* Outpatient Procedure (Routine) - Pending Review Specialty Diagnoses / Procedures Referred By Contac t Referred To Contact [facility] Diagnoses Elevated liver enzymes Fatty liver Procedures DDI VIBRATION CONTROLLED TRANSIENT ELASTOGRAPHY (VCTE) LIVER ELASTOGRAPHY W/O IMAG W/I&R Leda Brown APRN.EVENING ANCHOR [address] [place] [address] [facility] [address] [place] [id number] Referral ID Status Reason Start Date Expiration Date Visits Requested Visits Authorized [id number] Pending Review Auto-Generat ed Referral 10/17/2021 10/17/2022 1 1 [facility] for referral (narrative)* Outpatient Procedure (Routine) - Pending Review Specialty Diagnoses / Procedures Referred By Contac t Referred To Contact [facility] Diagnoses Chest pain, unspecified type Palpitations Procedures ECG COMPLETE ECG ROUTINE ECG W/LEAST 12 LDS W/I&R Leda Brown APRN.EVENING ANCHOR [address] [place] [address] [facility] [address] [place] [id number] Referral ID Status Reason Start Date Expiration Date Visits Requested Visits Authorized [id number] Pending Review Auto-Generat ed Referral 06/15/2022 06/15/2023 1 1 * Consult, Test, Treat (Routine) - Authorized Specialty Diagnoses / Procedures Referred By Contac t Referred To Contact [facility] Diagnoses Chest pain, unspecified type Palpitations Procedures ECHO ECHO TTHRC R-T 2D W/WOM-MODE COMPL SPEC&COLR D Leda Brown APRN.EVENING ANCHOR [address] [place] [address] [facility] [address] [place] [address] Referral ID Status Reason Start Date Expiration Date Visits Requested Visits Authorized [id number] Authorized Auto-Generat ed Referral 06/22/2022 05/06/2023 1 1 [facility] for referral (narrative)* Diagnostic Procedure Only (Routine) - Authorized Specialty Diagnoses / Procedures Referred By Maeganac t Referred To Contact [facility] Diagnoses Liver fibrosis Procedures US ABD RIGHT UPPER QUADRANT US ABDOMINAL REAL TIME W/IMAGE LIMITED Leda Brown APRN.EVENING ANCHOR [address] [place] [address] [facility] Referral ID Status Reason Start Date Expiration Date Visits Requested Visits Authorized [id number] Authorized Auto-Generat ed Referral 09/21/2022 05/06/2023 1 1 T [facility] for referral (narrative)* Diagnostic Procedure Only (Routine) - Authorized Specialty Diagnoses / Procedures Referred By Abeba moe Referred To Contact [facility] Diagnoses Encounter for screening mammogram for breast cancer Dense breast tissue on mammogram Procedures MIN SCREENING W ROBERT SCREENING DIGITAL BREAST TOMOSYNTHESIS BI SCREENING MAMMOGRAPHY BI 2-VIEW BREAST INC CAD Chhaya Crowe MD [address] [place] [address] [facility] [address] [place] [address] Referral ID Status Reason Start Date Expiration Date Visits Requested Visits Authorized [id number] Authorized Auto-Generat ed Referral 11/09/2022 05/06/2023 1 1 T [facility] for referral (narrative)* Diagnostic Procedure Only (Routine) - Closed Specialty Diagnoses / Procedures Referred By Conterik t Referred To Contact [facility] Diagnoses Encounter for screening mammogram for breast cancer Dense breast tissue on mammogram Procedures MIN SCREENING W ROBERT SCREENING DIGITAL BREAST TOMOSYNTHESIS BI SCREENING MAMMOGRAPHY BI 2-VIEW BREAST INC Chhaya Hernandez MD [address] [place] [address] [facility] [address] [place] [address] Referral ID Status Reason Start Date Expiration Date V isits Requested Visits Authorized [id number] Closed Auto-Generate d Referral 11/09/2022 05/06/2023 1 1 [facility] for referral (narrative)* Diagnostic Procedure Only (Routine) - Closed Specialty Diagnoses / Procedures Referred By Contac t Referred To Contact [facility] Diagnoses Liver fibrosis Procedures US ABD RIGHT UPPER QUADRANT US ABDOMINAL REAL TIME W/IMAGE LIMITED Leda Brown APRN.CNP [address] [place] [address] [place] [address] Referral ID Status Reason Start Date Expiration Date V isits Requested Visits Authorized [id number] Closed Auto-Generate d Referral 09/21/2022 05/06/2023 1 1 [facility] for visit Narrative* Diagnostic Procedure Only (Routine) - Closed Specialty Diagnoses / Procedures Referred By Abeba moe Referred To Contact [facility] Diagnoses Encounter for screening mammogram for breast cancer Dense breast tissue on mammogram Procedures MIN SCREENING W ROBERT SCREENING DIGITAL BREAST TOMOSYNTHESIS BI SCREENING MAMMOGRAPHY BI 2-VIEW BREAST INC Chhaya Hernandez MD [address] [place] [address] [facility] [address] [place] [address] Referral ID Status Reason Start Date Expiration Date V isits Requested Visits Authorized [id number] Closed Auto-Generate d Referral 11/09/2022 05/06/2023 [address] [facility] Summary Purpose Family History No Family [...] liver enzymes Procedures CONSULT TO HEPATOLOGY OFFICE/OUTPATIENT [facility] 60-74 MINUTES Leda Brown APRN.EVENING ANCHOR [address] [place] [address] Referral ID Status Reason Start Date Expiration Date Visits Requested Visits Authorized [id number] Pending Review PCP Requested Referral 11/11/2021 11/11/2022 1 1 Specialty Diagnoses / Procedures Referred By Contac t Referred To Contact Leda Brown APRN.EVENING ANCHOR [address] [place] [address] Referral ID Status Reason Start Date Expiration Date V isits Requested Visits Authorized [id number] Pending Review 1 1 Specialty Diagnoses / Procedures Referred By Contac t Referred To Contact Cardiology Diagnoses SVT (supraventricular tachycardia) (HCC) Procedures CONSULT TO CARDIOLOGY OFFICE/OUTPATIENT [facility] 60-74 MINUTES Leda Brown APRN.EVENING ANCHOR [address] [place] [address] Referral ID Status Reason Start Date Expiration Date Visits Requested Visits Authorized [id number] Pending Review PCP Requested Referral 07/26/2022 07/26/2023 1 1 Specialty Diagnoses / Procedures Referred By Contac t Referred To Contact Endocrinology Diagnoses Graves disease History of Srini thyroiditis Procedures CONSULT TO ENDOCRINOLOGY OFFICE/OUTPATIENT [facility] 60-74 MINUTES Leda Brown APRN.EVENING ANCHOR [address] [place] [address] Referral ID Status Reason Start Date Expiration Date Visits Requested Visits Authorized [id number] Pending Review PCP Requested Referral 08/17/2022 08/17/2023 [...] DATE CREATED AUTHOR AUTHOR'S ORGANIZ ATION 04/06/2023 [facility] DATE CREATED AUTHOR AUTHOR'S ORGANIZ ATION 04/15/2023 [facility] DATE CREATED AUTHOR AUTHOR'S ORGANIZ ATION 06/15/2023 [facility] Source Comments (unrecognize d section and content) In the event this informatio n is protected by the Federal Confidentiality of Alcohol and Drug Abuse Patient Records regulations: The Federal rules restrict any use of the information to criminally investigate or prosecute any alcohol or drug abuse patient.[facility] the event this information is protected by the Federal Confidentiality of Alcohol and Drug Abuse Patient Records regulations: The Federal rules restrict any use of the information to criminally investigate or prosecute any alcohol or drug abuse patient.[facility] the event this information is protected by the Federal Confidentiality of Alcohol and Drug Abuse Patient Records regulations: The Federal rules restrict any use of the information to criminally investigate or prosecute any alcohol or drug abuse patient.[facility] the event this information is protected by the Federal Confidentiality of Alcohol and Drug Abuse Patient Records regulations: The Federal rules restrict any use of the information to criminally investigate or prosecute any alcohol or drug abuse patient.[facility] the event this information is protected by the Federal Confidentiality of Alcohol and Drug Abuse Patient Records regulations: The Federal rules restrict any use of the information to criminally investigate or prosecute any alcohol or drug abuse patient.[facility] the event this information is protected by the Federal Confidentiality of Alcohol and Drug Abuse Patient Records regulations: The Federal rules restrict any use of the information to criminally investigate or prosecute any alcohol or drug abuse patient.[facility] the event this information is protected by the Federal Confidentiality of Alcohol and Drug Abuse Patient Records regulations: The Federal rules restrict any use of the information to criminally investigate or prosecute any alcohol or drug abuse patient.[facility] the event this information is protected by the Federal Confidentiality of Alcohol and Drug Abuse Patient Records regulations: The Federal rules restrict any use of the information to criminally investigate or prosecute any alcohol or drug abuse patient.[facility] the event this information is protected by the Federal Confidentiality of Alcohol and Drug Abuse Patient Records regulations: The Federal rules restrict any use of the information to criminally investigate or prosecute any alcohol or drug abuse patient.[facility] the event this information is protected by the Federal Confidentiality of Alcohol and Drug Abuse Patient Records regulations: The Federal rules restrict any use of the information to criminally investigate or prosecute any alcohol or drug abuse patient.[facility] the event this information is protected by the Federal Confidentiality of Alcohol and Drug Abuse Patient Records regulations: The Federal rules restrict any use of the information to criminally investigate or prosecute any alcohol or drug abuse patient.[facility] the event this information is protected by the Federal Confidentiality of Alcohol and Drug Abuse Patient Records regulations: The Federal rules restrict any use of the information to criminally investigate or prosecute any alcohol or drug abuse patient.[facility] the event this information is protected by the Federal Confidentiality of Alcohol and Drug Abuse Patient Records regulations: The Federal rules restrict any use of the information to criminally investigate or prosecute any alcohol or drug abuse patient.[facility] the event this information is protected by the Federal Confidentiality of Alcohol and Drug Abuse Patient Records regulations: The Federal rules restrict any use of the information to criminally investigate or prosecute any alcohol or drug abuse patient.[facility] the event this information is protected by the Federal Confidentiality of Alcohol and Drug Abuse Patient Records regulations: The Federal rules restrict any use of the information to criminally investigate or prosecute any alcohol or drug abuse patient.[facility] the event this information is protected by the Federal Confidentiality of Alcohol and Drug Abuse Patient Records regulations: The Federal rules restrict any use of the information to criminally investigate or prosecute any alcohol or drug abuse patient.[facility] the event this information is protected by the Federal Confidentiality of Alcohol and Drug Abuse Patient Records regulations: The Federal rules restrict any use of the information to criminally investigate or prosecute any alcohol or drug abuse patient.[facility] the event this information is protected by the Federal Confidentiality of Alcohol and Drug Abuse Patient Records regulations: The Federal rules restrict any use of the information to criminally investigate or prosecute any alcohol or drug abuse patient.[facility] the event this information is protected by the Federal Confidentiality of Alcohol and Drug Abuse Patient Records regulations: The Federal rules restrict any use of the information to criminally investigate or prosecute any alcohol or drug abuse patient.[facility] the event this information is protected by the Federal Confidentiality of Alcohol and Drug Abuse Patient Records regulations: The Federal rules restrict any use of the information to criminally investigate or prosecute any alcohol or drug abuse patient.[facility] the event this information is protected by the Federal Confidentiality of Alcohol and Drug Abuse Patient Records regulations: The Federal rules restrict any use of the information to criminally investigate or prosecute any alcohol or drug abuse patient.[facility] the event this information is protected by the Federal Confidentiality of Alcohol and Drug Abuse Patient Records regulations: The Federal rules restrict any use of the information to criminally investigate or prosecute any alcohol or drug abuse patient.[facility] the event this information is protected by the Federal Confidentiality of Alcohol and Drug Abuse Patient Records regulations: The Federal rules restrict any use of the information to criminally investigate or prosecute any alcohol or drug abuse patient.[facility] the event this information is protected by the Federal Confidentiality of Alcohol and Drug Abuse Patient Records regulations: The Federal rules restrict any use of the information to criminally investigate or prosecute any alcohol or drug abuse patient.[facility] the event this information is protected by the Federal Confidentiality of Alcohol and Drug Abuse Patient Records regulations: The Federal rules restrict any use of the information to criminally investigate or prosecute any alcohol or drug abuse patient.[facility] the event this information is protected by the Federal Confidentiality of Alcohol and Drug Abuse Patient Records regulations: The Federal rules restrict any use of the information to criminally investigate or prosecute any alcohol or drug abuse patient.[facility] HospitalIn the event this information is protected by the Federal Confidentiality of Alcohol and Drug Abuse Patient Records regulations: The Federal rules restrict any use of the information to criminally investigate or prosecute any alcohol or drug abuse patient.[facility] HospitalIn the event this information is protected by the Federal Confidentiality of Alcohol and Drug Abuse Patient Records regulations: The Federal rules restrict any use of the information to criminally investigate or prosecute any alcohol or drug abuse patient.[facility] HospitalIn the event this information is protected by the Federal Confidentiality of Alcohol and Drug Abuse Patient Records regulations: The Federal rules restrict any use of the information to criminally investigate or prosecute any alcohol or drug abuse patient.[facility] HospitalIn the event this information is protected by the Federal Confidentiality of Alcohol and Drug Abuse Patient Records regulations: The Federal rules restrict any use of the information to criminally investigate or prosecute any alcohol or drug abuse patient.[facility] HospitalIn the event this information is protected by the Federal Confidentiality of Alcohol and Drug Abuse Patient Records regulations: The Federal rules restrict any use of the information to criminally investigate or prosecute any alcohol or drug abuse patient.[facility] HospitalIn the event this information is protected by the Federal Confidentiality of Alcohol and Drug Abuse Patient Records regulations: The Federal rules restrict any use of the information to criminally investigate or prosecute any alcohol or drug abuse patient.[facility] HospitalIn the event this information is protected by the Federal Confidentiality of Alcohol and Drug Abuse Patient Records regulations: The Federal rules restrict any use of the information to criminally investigate or prosecute any alcohol or drug abuse patient.[facility] HospitalIn the event this information is protected by the Federal Confidentiality of Alcohol and Drug Abuse Patient Records regulations: The Federal rules restrict any use of the information to criminally investigate or prosecute any alcohol or drug abuse patient.[facility] HospitalIn the event this information is protected by the Federal Confidentiality of Alcohol and Drug Abuse Patient Records regulations: The Federal rules restrict any use of the information to criminally investigate or prosecute any alcohol or drug abuse patient.[facility] HospitalIn the event this information is protected by the Federal Confidentiality of Alcohol and Drug Abuse Patient Records regulations: The Federal rules restrict any use of the information to criminally investigate or prosecute any alcohol or drug abuse patient.[facility] HospitalIn the event this information is protected by the Federal Confidentiality of Alcohol and Drug Abuse Patient Records regulations: The Federal rules restrict any use of the information to criminally investigate or prosecute any alcohol or drug abuse patient.[facility] HospitalIn the event this information is protected by the Federal Confidentiality of Alcohol and Drug Abuse Patient Records regulations: The Federal rules restrict any use of the information to criminally investigate or prosecute any alcohol or drug abuse patient.[facility] HospitalIn the event this information is protected by the Federal Confidentiality of Alcohol and Drug Abuse Patient Records regulations: The Federal rules restrict any use of the information to criminally investigate or prosecute any alcohol or drug abuse patient.[facility] HospitalIn the event this information is protected by the Federal Confidentiality of Alcohol and Drug Abuse Patient Records regulations: The Federal rules restrict any use of the information to criminally investigate or prosecute any alcohol or drug abuse patient.[facility] HospitalIn the event this information is protected by the Federal Confidentiality of Alcohol and Drug Abuse Patient Records regulations: The Federal rules restrict any use of the information to criminally investigate or prosecute any alcohol or drug abuse patient.[facility] HospitalIn the event this information is protected by the Federal Confidentiality of Alcohol and Drug Abuse Patient Records regulations: The Federal rules restrict any use of the information to criminally investigate or prosecute any alcohol or drug abuse patient.[facility] HospitalIn the event this information is protected by the Federal Confidentiality of Alcohol and Drug Abuse Patient Records regulations: The Federal rules restrict any use of the information to criminally investigate or prosecute any alcohol or drug abuse patient.[facility] HospitalIn the event this information is protected by the Federal Confidentiality of Alcohol and Drug Abuse Patient Records regulations: The Federal rules restrict any use of the information to criminally investigate or prosecute any alcohol or drug abuse patient.[facility] HospitalIn the event this information is protected by the Federal Confidentiality of Alcohol and Drug Abuse Patient Records regulations: The Federal rules restrict any use of the information to criminally investigate or prosecute any alcohol or drug abuse patient.[facility] HospitalIn the event this information is protected by the Federal Confidentiality of Alcohol and Drug Abuse Patient Records regulations: The Federal rules restrict any use of the information to criminally investigate or prosecute any alcohol or drug abuse patient.[facility] HospitalIn the event this information is protected by the Federal Confidentiality of Alcohol and Drug Abuse Patient Records regulations: The Federal rules restrict any use of the information to criminally investigate or prosecute any alcohol or drug abuse patient.[facility] HospitalIn the event this information is protected by the Federal Confidentiality of Alcohol and Drug Abuse Patient Records regulations: The Federal rules restrict any use of the information to criminally investigate or prosecute any alcohol or drug abuse patient.[facility] HospitalIn the event this information is protected by the Federal Confidentiality of Alcohol and Drug Abuse Patient Records regulations: The Federal rules restrict any use of the information to criminally investigate or prosecute any alcohol or drug abuse patient.[facility] HospitalIn the event this information is protected by the Federal Confidentiality of Alcohol and Drug Abuse Patient Records regulations: The Federal rules restrict any use of the information to criminally investigate or prosecute any alcohol or drug abuse patient.[facility] HospitalIn the event this information is protected by the Federal Confidentiality of Alcohol and Drug Abuse Patient Records regulations: The Federal rules restrict any use of the information to criminally investigate or prosecute any alcohol or drug abuse patient.[facility] HospitalIn the event this information is protected by the Federal Confidentiality of Alcohol and Drug Abuse Patient Records regulations: The Federal rules restrict any use of the information to criminally investigate or prosecute any alcohol or drug abuse patient.[facility] HospitalIn the event this information is protected by the Federal Confidentiality of Alcohol and Drug Abuse Patient Records regulations: The Federal rules restrict any use of the information to criminally investigate or prosecute any alcohol or drug abuse patient.[facility] HospitalIn the event this information is protected by the Federal Confidentiality of Alcohol and Drug Abuse Patient Records regulations: The Federal rules restrict any use of the information to criminally investigate or prosecute any alcohol or drug abuse patient.[facility] HospitalIn the event this information is protected by the Federal Confidentiality of Alcohol and Drug Abuse Patient Records regulations: The Federal rules restrict any use of the information to criminally investigate or prosecute any alcohol or drug abuse patient.[facility] HospitalIn the event this information is protected by the Federal Confidentiality of Alcohol and Drug Abuse Patient Records regulations: The Federal rules restrict any use of the information to criminally investigate or prosecute any alcohol or drug abuse patient.[facility] HospitalIn the event this information is protected by the Federal Confidentiality of Alcohol and Drug Abuse Patient Records regulations: The Federal rules restrict any use of the information to criminally investigate or prosecute any alcohol or drug abuse patient.[facility] HospitalIn the event this information is protected by the Federal Confidentiality of Alcohol and Drug Abuse Patient Records regulations: The Federal rules restrict any use of the information to criminally investigate or prosecute any alcohol or drug abuse patient.[facility] HospitalIn the event this information is protected by the Federal Confidentiality of Alcohol and Drug Abuse Patient Records regulations: The Federal rules restrict any use of the information to criminally investigate or prosecute any alcohol or drug abuse patient.[facility] HospitalIn the event this information is protected by the Federal Confidentiality of Alcohol and Drug Abuse Patient Records regulations: The Federal rules restrict any use of the information to criminally investigate or prosecute any alcohol or drug abuse patient.[facility] HospitalIn the event this information is protected by the Federal Confidentiality of Alcohol and Drug Abuse Patient Records regulations: The Federal rules restrict any use of the information to criminally investigate or prosecute any alcohol or drug abuse patient.[facility] HospitalIn the event this information is protected by the Federal Confidentiality of Alcohol and Drug Abuse Patient Records regulations: The Federal rules restrict any use of the information to criminally investigate or prosecute any alcohol or drug abuse patient.[facility] HospitalIn the event this information is protected by the Federal Confidentiality of Alcohol and Drug Abuse Patient Records regulations: The Federal rules restrict any use of the information to criminally investigate or prosecute any alcohol or drug abuse patient.[facility] HospitalIn the event this information is protected by the Federal Confidentiality of Alcohol and Drug Abuse Patient Records regulations: The Federal rules restrict any use of the information to criminally investigate or prosecute any alcohol or drug abuse patient.[facility] HospitalIn the event this information is protected by the Federal Confidentiality of Alcohol and Drug Abuse Patient Records regulations: The Federal rules restrict any use of the information to criminally investigate or prosecute any alcohol or drug abuse patient.[facility] HospitalIn the event this information is protected by the Federal Confidentiality of Alcohol and Drug Abuse Patient Records regulations: The Federal rules restrict any use of the information to criminally investigate or prosecute any alcohol or drug abuse patient.[facility] HospitalIn the event this information is protected by the Federal Confidentiality of Alcohol and Drug Abuse Patient Records regulations: The Federal rules restrict any use of the information to criminally investigate or prosecute any alcohol or drug abuse patient.[facility] HospitalIn the event this information is protected by the Federal Confidentiality of Alcohol and Drug Abuse Patient Records regulations: The Federal rules restrict any use of the information to criminally investigate or prosecute any alcohol or drug abuse patient.[facility] HospitalIn the event this information is protected by the Federal Confidentiality of Alcohol and Drug Abuse Patient Records regulations: The Federal rules restrict any use of the information to criminally investigate or prosecute any alcohol or drug abuse patient.[facility] HospitalIn the event this information is protected by the Federal Confidentiality of Alcohol and Drug Abuse Patient Records regulations: The Federal rules restrict any use of the information to criminally investigate or prosecute any alcohol or drug abuse patient.[facility] HospitalIn the event this information is protected by the Federal Confidentiality of Alcohol and Drug Abuse Patient Records regulations: The Federal rules restrict any use of the information to criminally investigate or prosecute any alcohol or drug abuse patient.[facility] Reason for Visit (unrecogniz ed section and content) Reason Comments Acute Visit lump on sternum x 1 week Specialty Diagnoses / Procedures Referred By Abeba moe Referred To Contact Internal Medicine / INTERNAL MEDICINE Diagnoses 3 month follow up Procedures 4C Leda Youngblood APRN.EVENING ANCHOR [address] [place] [address] Josr Mathews MD [address] [place] [address] Referral ID Status Reason Start Date Expiration Date Visits Re quested Visits Authorized [id number] Closed 09/15/2021 12/14/2021 1 1 Reason Comments Orders Reason Comments UTI frquency of urinatio n x 2 days Specialty Diagnoses / Procedures Referred By Contac t Referred To Contact [facility] Diagnoses uti symptoms x2days Procedures EST SAME DAY Self Express [facility] [address] [place] [address] Referral ID Status Reason Start Date Expiration Date V isits Requested Visits Authorized [id number] Outside PCP 10/10/2021 01/08/2022 1 1 Reason Comments Recheck 3 month follow up Specialty Diagnoses / Procedures Referred By Contac t Referred To Contact Internal Medicine / INTERNAL MEDICINE Diagnoses RED SPOTS HANDS AND RT SHOULDER AND FOOT Procedures EST Josr Mcdonald MD [address] [place] [address] Josr Mathews MD [address] [place] [address] Referral ID Status Reason Start Date Expiration Date V isits Requested Visits Authorized [id number] Authorized 11/24/2020 11/24/2021 99 99 Specialty Diagnoses / Procedures Referred By Contac t Referred To Contact SCRATCH POLISHER Diagnoses Encounter for general adult medical examination without abnormal findings mamm Procedures SCREENING MAMMOGRAPHY BI 2-VIEW BREAST INC CAD mamm Hui Lewis, BOOKER.EVENING ANCHOR [address] [place] [address] Sales Commissions Analyst [employer] [address] [place] [address] Referral ID Status Reason Start Date Expiration Date V isits Requested Visits Authorized [id number] Closed OON/Self Pay Override 11/02/2021 05/06/2022 1 1 Reason Comments Refill Request Reason Comments Sore Throat ST and drainage-woke up with symptoms-COVID exposure Specialty Diagnoses / Procedures Referred By Contac t Referred To Contact [facility] Diagnoses Sore Throat - COVID exposure Procedures EST SAME DAY HowardAlessia APRN.EVENING ANCHOR [address] [place] [address] [facility] [address] [place] [address] Referral ID Status Reason Start Date Expiration Date V isits Requested Visits Authorized [id number] Pending Review 11/20/2021 02/18/2022 1 1 Reason Onset Date Comments Recheck 4 month follow u p Immunizations 01/19/2022 Flu vaccination Specialty Diagnoses / Procedures Referred By Contac t Referred To Contact Internal Medicine / INTERNAL MEDICINE Diagnoses Follow-up examination 4 month Follow up Procedures OFFICE/OUTPATIENT ESTABLISHED MOD MDM 30-39 MIN 4C EST Josr Mathews MD [address] [place] [id number] Leda Brown APRN.EVENING ANCHOR [address] [place] [phone] Referral ID Status Reason Start Date Expiration Date Visits Re quested Visits Authorized [id number] Closed 01/19/2022 05/06/2022 1 1 Reason Comments Cough Cough, diarrhea, sin us, bodyaches, fever and ST x 4 days Specialty Diagnoses / Procedures Referred By Contac t Referred To Contact [facility] Diagnoses diarrhea, sinus, bodyaches, low grade fever, cough and sore throat Procedures OFFICE/OUTPATIENT ESTABLISHED MOD MDM 30-39 MIN EST SAME DAY Self [facility] [address] [place] [phone] Referral ID Status Reason Start Date Expiration Date Visits Re quested Visits Authorized [id number] Closed 02/07/2022 05/06/2022 1 1 Reason Comments UTI Pressure since been on ATB Musculoskeletal Problem Achy all over; exposed to covid Specialty Diagnoses / Procedures Referred By Abeba t Referred To Contact Family Medicine / FAMILY MEDICINE Diagnoses Encounter for general adult medical examination without abnormal findings UTI/not feeling well Procedures OFFICE/OUTPATIENT ESTABLISHED MOD MDM 30-39 MIN 4C EST Tracy Mendes APRN.EVENING ANCHOR [address] [place] [address] Tracy Mendes APRN.EVENING ANCHOR [address] [place] [address] Referral ID Status Reason Start Date Expiration Date Visits Re quested Visits Authorized [id number] Closed 02/14/2022 05/06/2022 1 1 Reason Comments Results Reason Comments Fax Request Reason Comments URI Started with sinus d rainage last week on Sunday. Cough and congestion. Moved into chest congestion. Specialty Diagnoses / Procedures Referred By Contac t Referred To Contact Internal Medicine / INTERNAL MEDICINE Diagnoses Sinus congestion Cough No energy sinus congestion and cough, no energy Procedures OFFICE/OUTPATIENT ESTABLISHED MOD MDM 30-39 MIN 4C EST Self Older, Leda, RESAW TAILER.EVENING ANCHOR [address] [place] [address] Referral ID Status Reason Start Date Expiration Date Visits Re quested Visits Authorized [id number] Closed 04/17/2022 05/06/2022 1 1 Reason Onset Date Comments Refill Request 06/08/2022 Reason Comments Patient Request Reason Comments Insurance Authorization Reason Comments Recheck Elevated BP and BS, headaches Specialty Diagnoses / Procedures Referred By Contac t Referred To Contact Internal Medicine / INTERNAL MEDICINE Diagnoses BP (high blood pressure) high BP Procedures OFFICE/OUTPATIENT ESTABLISHED MOD MDM 30-39 MIN 4C EST Self Older, Leda, RESAW TAILER.EVENING ANCHOR [address] [place] [phone] Referral ID Status Reason Start Date Expiration Date Visits Re quested Visits Authorized [id number] Closed 06/15/2022 05/06/2023 1 1 Reason Comments Recheck 2 week follow up Specialty Diagnoses / Procedures Referred By Contac t Referred To Contact Internal Medicine / INTERNAL MEDICINE Diagnoses Encounter for follow-up examination after completed treatment for conditions other than malignant neoplasm 2 wk follow up Procedures OFFICE/OUTPATIENT ESTABLISHED MOD MDM 30-39 MIN 4C EST Self Older, Leda, RESAW TAILER.EVENING ANCHOR [address] [place] [address] Referral ID Status Reason Start Date Expiration Date Visits Re quested Visits Authorized [id number] Closed 06/26/2022 05/06/2023 1 1 Reason Comments Same Day Appointment sinus pressure, con gestion,fever chills,body aches,cough,nausea x since Sunday Specialty Diagnoses / Procedures Referred By Contac t Referred To Contact Internal Medicine / INTERNAL MEDICINE Diagnoses Cough Fever Sinus pressure sinus pressure, congestion, cough, fever Procedures OFFICE/OUTPATIENT ESTABLISHED MOD [facility] 30-39 MIN 4C Josr Sandhu MD [address] [place] [address] Josr Mathews MD [address] [place] [address] Referral ID Status Reason Start Date Expiration Date Visits Re quested Visits Authorized [id number] Closed 07/17/2022 05/06/2023 1 1 Reason Comments patient update/illness persisting Reason Comments Results Reason Comments New Patient Reason Comments Faxed cardi[facility] referral [facility] Reason Comments Recheck Follow up, discuss T hyroid Specialty Diagnoses / Procedures Referred By Contac t Referred To Contact Internal Medicine / INTERNAL MEDICINE Diagnoses Thyroid condition discuss possible thyroid issues Procedures OFFICE/OUTPATIENT ESTABLISHED MOD [facility] 30-39 MIN 4C Josr Sandhu MD [address] [place] [address] Leda Brown APRN.EVENING ANCHOR [address] [place] [address] Referral ID Status Reason Start Date Expiration Date Visits Re quested Visits Authorized [id number] Closed 08/17/2022 05/06/2023 1 1 Reason Comments Head Congestion Head congestion, cou gh, sinus pain, headaches x 3 days Specialty Diagnoses / Procedures Referred By Contac t Referred To Contact Internal Medicine / INTERNAL MEDICINE Diagnoses Nasal congestion nasal congestion, sinus pressure, drainage Procedures OFFICE/OUTPATIENT ESTABLISHED MOD [facility] 30-39 MIN 4C EST Leda Brown APRN.EVENING ANCHOR [address] [place] [address] Leda Brown APRN.EVENING ANCHOR [address] [place] [address] Referral ID Status Reason Start Date Expiration Date Visits Re quested Visits Authorized [id number] Closed 09/04/2022 05/06/2023 1 1 Reason Comments Recheck 2 week BP follow up Specialty Diagnoses / Procedures Referred By Contac t Referred To Contact Internal Medicine / INTERNAL MEDICINE Diagnoses Follow-up exam BP follow up Procedures OFFICE/OUTPATIENT ESTABLISHED MOD [facility] 30-39 MIN 4C Josr Sandhu MD [address] [place] [address] Leda Brown APRN.EVENING ANCHOR [address] [place] [address] Referral ID Status Reason Start Date Expiration Date Visits Re quested Visits Authorized [id number] Closed 09/14/2022 05/06/2023 1 1 Reason Comments [...] month follow up Procedures OFFICE/OUTPATIENT ESTABLISHED MOD [facility] 30-39 MIN 4C Josr Sandhu MD [address] [place] [address] Leda Brown APRN.EVENING ANCHOR [address] [place] [address] Referral ID Status Reason Start Date Expiration Date V isits Requested Visits Authorized [id number] Authorized 12/11/2022 05/06/2023 2 2 Reason Comments Cellulitis Update Reason Comments Recheck Follow up cellulitis Specialty Diagnoses / Procedures Referred By Contac t Referred To Contact Internal Medicine / INTERNAL MEDICINE Diagnoses Follow-up exam follow up - cellulitis Procedures OFFICE/OUTPATIENT ESTABLISHED MOD [facility] 30-39 MIN 4C EST Self Leda Brown APRN.EVENING ANCHOR [address] [place] [address] Referral ID Status Reason Start Date Expiration Date Visits Re quested Visits Authorized [id number] Closed 12/20/2022 05/06/2023 1 1 Specialty Diagnoses / Procedures Referred By Contac t Referred To Contact [facility] Diagnoses FEELING OF NEEDING TO URINATE AND THEN UNABLE TO GET MUCH OUT, ALSO HAVING A LOW GRADE 100.4 FEVER - PATIENT HAD A HEART CATH AND 2 STENTS PLACED ON 12/27/22 Procedures EST SAME DAY Self Express Cl [facility] [address] [place] [address] Referral ID Status Reason Start Date Expiration Date V isits Requested Visits Authorized [id number] Outside PCP 12/31/2022 03/01/2023 1 1 Reason Comments Recheck ER follow up, AFIB Specialty Diagnoses / Procedures Referred By Contac t Referred To Contact Internal Medicine / INTERNAL MEDICINE Diagnoses Follow-up exam 6 week follow up Procedures OFFICE/OUTPATIENT ESTABLISHED MOD MDM 30-39 MIN 4C EST Self Leda Brown APRN.EVENING ANCHOR [address] [place] [address] Referral ID Status Reason Start Date Expiration Date Visits Re quested Visits Authorized [id number] Closed 02/08/2023 06/06/2023 1 1 Reason Comments Radiology US Specialty Diagnoses / Procedures [facility] Referred To Contact US IMAGING Diagnoses Liver fibrosis Procedures US ABD RIGHT UPPER QUADRANT US ABDOMINAL REAL TIME W/IMAGE LIMITED Leda Brown APRN.EVENING ANCHOR [address] [place] [address] [place] [address] Referral ID Status Reason Start Date Expiration Date V isits Requested Visits Authorized [id number] Closed Auto-Generate d Referral 09/21/2022 05/06/2023 1 1 Reason Comments Same Day Appointment sick not feeling we ll, sore throat, ear pain, temp this weekend,coughing Reason Comments Follow Up Hypertension and thy roid Reason Comments Flu Like Symptoms Nausea, low fever, b odyaches x this AM, exposure to Covid and Flu Reason Onset Date Comments Refill Request 06/19/2023 Care Teams (unrecognized sec tion and content) [employer] Scoreboard Operator Relationship Specialty Start Date End Date Josr Matehws MD [address] [place], [place] [id number] PCP - General Internal Medicine 02/19/19 [employer] Scoreboard Operator Relationship Specialty Start Date End Date Josr Mathews MD [address] [place] [address] PCP - General Internal Medicine 02/19/19 [employer] Score[employer] Operator Relationship Specialty Start Date End Date Josr Mathews MD [address] [place] [address] PCP - General Internal Medicine 02/19/19 [employer] Score[employer] Operator Relationship Specialty Start Date End Date Josr Mathews MD [address] [place] [address] PCP - General Internal Medicine 02/19/19 [employer] Score[employer] Operator Relationship Specialty Start Date End Date Josr Mathews MD [address] [place] [address] PCP - General Internal Medicine 02/19/19 [employer] Score[employer] Operator Relationship Specialty Start Date End Date Josr Mathews MD [address] [place] [address] PCP - General Internal Medicine 02/19/19 [employer] Scoreboard Operator Relationship Specialty Start Date End Date Josr Mathews MD [address] [place] [address] PCP - General Internal Medicine 02/19/19 [employer] Score[employer] Operator Relationship Specialty Start Date End Date Josr Mathews MD [address] [place] [address] PCP - General Internal Medicine 02/19/19 [employer] Score[employer] Operator Relationship Specialty Start Date End Date Josr Mathews MD [address] [place] [address] PCP - General Internal Medicine 02/19/19 [employer] Score[employer] Operator Relationship Specialty Start Date End Date Josr Mathews MD [address] [place] [address] PCP - General Internal Medicine 02/19/19 [employer] Score[employer] Operator Relationship Specialty Start Date End Date Josr Mathews MD [address] [place] [address] PCP - General Internal Medicine 02/19/19 [employer] Score[employer] Operator Relationship Specialty Start Date End Date Josr Mathews MD [address] [place] [address] PCP - General Internal Medicine 02/19/19 [employer] Score[employer] Operator Relationship Specialty Start Date End Date Josr Mathews MD [address] [place] [address] PCP - General Internal Medicine 02/19/19 [employer] Score[employer] Operator Relationship Specialty Start Date End Date Josr Mathews MD [address] [place] [address] PCP - General Internal Medicine 02/19/19 [employer] Score[employer] Operator Relationship Specialty Start Date End Date Josr Mathews MD [address] [place] [address] PCP - General Internal Medicine 02/19/19 [employer] Score[employer] Operator Relationship Specialty Start Date End Date Josr Mathews MD [address] [place] [address] PCP - General Internal Medicine 02/19/19 [employer] Score[employer] Operator Relationship Specialty Start Date End Date Josr Mathews MD [address] [place] [address] PCP - General Internal Medicine 02/19/19 [employer] Score[employer] Operator Relationship Specialty Start Date End Date Josr Mathews MD [address] [place] [address] PCP - General Internal Medicine 02/19/19 [employer] Score[employer] Operator Relationship Specialty Start Date End Date Josr Mathews MD [address] [place] [address] PCP - General Internal Medicine 02/19/19 [employer] Score[employer] Operator Relationship Specialty Start Date End Date Josr Mathews MD [address] [place] [address] PCP - General Internal Medicine 02/19/19 [employer] Score[employer] Operator Relationship Specialty Start Date End Date Josr Mathews MD [address] [place] [address] PCP - General Internal Medicine 02/19/19 [employer] Score[employer] Operator Relationship Specialty Start Date End Date Josr Mathews MD [address] [place] [address] PCP - General Internal Medicine 02/19/19 [employer] Score[employer] Operator Relationship Specialty Start Date End Date Josr Mathews MD [address] [place] [address] PCP - General Internal Medicine 02/19/19 [employer] Score[employer] Operator Relationship Specialty Start Date End Date Josr Mathews MD [address] [place] [address] PCP - General Internal Medicine 02/19/19 [employer] Score[employer] Operator Relationship Specialty Start Date End Date Josr Mathews MD [address] [place] [address] PCP - General Internal Medicine 02/19/19 [employer] Score[employer] Operator Relationship Specialty Start Date End Date Josr Mathews MD [address] [place] [address] PCP - General Internal Medicine 02/19/19 [employer] Score[employer] Operator Relationship Specialty Start Date End Date Josr Mathews MD [address] [place] [address] PCP - General Internal Medicine 02/19/19 [employer] Operator Relationship Specialty Start Date End Date Josr Mathews MD [address] [place] [address] PCP - General Internal Medicine 02/19/19 [employer] Operator Relationship Specialty Start Date End Date Josr Mathews MD [address] [place] [address] PCP - General Internal Medicine 02/19/19 [employer] Score[employer] Operator Relationship Specialty Start Date End Date Josr Mathews MD [address] [place] [address] PCP - General Internal Medicine 02/19/19 [employer] Operator Relationship Specialty Start Date End Date Josr Mathews MD [address] [place] [address] PCP - General Internal Medicine 02/19/19 [employer] Operator Relationship Specialty Start Date End Date Josr Mathews MD [address] [place] [address] PCP - General Internal Medicine 02/19/19 [employer] Operator Relationship Specialty Start Date End Date Josr Mathews MD [address] [place] [address] PCP - General Internal Medicine 02/19/19 [employer] Score[employer] Operator Relationship Specialty Start Date End Date Josr Mathews MD [address] [place] [address] PCP - General Internal Medicine 02/19/19 [employer] Operator Relationship Specialty Start Date End Date Josr Mathews MD [address] [place] [address] PCP - General Internal Medicine 02/19/19 [employer] Operator Relationship Specialty Start Date End Date Josr Mathews MD [address] [place] [address] PCP - General Internal Medicine 02/19/19 [employer] Score[employer] Operator Relationship Specialty Start Date End Date Josr Mathews MD [address] [facility] [place] [address] PCP - General Internal Medicine 02/19/19 [employer] Score[employer] Operator Relationship Specialty Start Date End Date Josr Mathews MD [address] [place] [address] PCP - General Internal Medicine 02/19/19 [employer] Score[employer] Operator Relationship Specialty Start Date End Date Josr Mathews MD [address] [place] [address] PCP - General Internal Medicine 02/19/19 [employer] Operator Relationship Specialty Start Date End Date Josr Mathews MD [address] [facility] [place] [address] PCP - General Internal Medicine 02/19/19 [employer] Operator Relationship Specialty Start Date End Date Josr Mathews MD [address] [facility] [place] [address] PCP - General Internal Medicine 02/19/19 [employer] Score[employer] Operator Relationship Specialty Start Date End Date Josr Mathews MD [address] [facility] [place] [address] PCP - General Internal Medicine 02/19/19 FOR [...] BE BASED ON THE PRIMARY CLINICAL RECORDS. [facility] provides no warranty or guarantee of the accuracy or completeness of information in this document.
--- NOTE | 2023-06-25 10:16 | STRESSREP ---
Stress Test Report Date: 06/21/2023 Procedure: Exercise tolerance test/imaging study Indications: Chest pain Consent: Per the patient Procedure: The patient exercised on a Radu protocol for 5 minutes and 30 seconds achieving a peak heart rate of 131 bpm (80% predicted maximal heart rate) with a peak blood pressure 160/66 mmHg and a peak MET capacity of 7.2 METs. The baseline ECG demonstrated sinus rhythm. The peak exercise ECG demonstrated no ischemic changes. There were no cardiac dysrhythmias pretest, during exercise, or recovery. The functional capacity was considered average. There was no complaint of chest discomfort during exercise or recovery. The examination was discontinued secondary to dyspnea. The patient was injected with 13.7 mCi of technetium 99m Cardiolite and subsequently rest SPECT Cardiolite nuclear imaging was obtained in the horizontal long, vertical long, and short axis views. Post-exercise, the patient was injected with 14.1 mCi of technetium 99m Cardiolite and subsequently stress SPECT Cardiolite nuclear imaging was obtained in the horizontal long, vertical long, and short axis views. A gated Cardiolite study at peak stress was obtained. Rest and stress SPECT Cardiolite nuclear imaging status post realignment, normalization, and attenuation correction, demonstrates the appearance of relative uniform tracer uptake and myocardial perfusion appearing within normal limits. There is end systolic thickening and brightening. The gated Cardiolite study demonstrates myocardial thickening and inward wall motion. The reported LVEF is 76%. Impression: 1. Technically adequate exercise tolerance test 2. Peak exercise ECG with no ischemic changes 3. There were no cardiac dysrhythmias pretest, during exercise, or recovery 4. Rest and stress SPECT Cardiolite nuclear imaging demonstrate relative uniform tracer uptake and myocardial perfusion appearing within normal limits. 5. The gated Cardiolite study reports an LVEF of 76%. This note was generated with [employer]ymseeation software. It may contain incorrect words, spelling, and punctuation that were not noted in checking the note before signing.
== END | disposition home or self-care (01) ==
LOC: CVS 06:37
PROVIDERS: PCP Internal Medicine; Referring Provider Internal Medicine Cardiovascular Disease; Visit Provider Internal Medicine Cardiovascular Disease
DX: R07.9 Chest pain, unspecified (principal); I48.0 Paroxysmal atrial fibrillation; R00.2 Palpitations; R06.02 Shortness of breath
CPT/HCPCS: 78452; 93017; A9500; A4216

== ENCOUNTER → 2023-07-25 | Outpatient (CLI) | payer OTHER, SELFPAY ==
[2023-04-18 11:48] VITALS: BMI 32.9
== END | disposition home or self-care (01) ==
PROVIDERS: PCP Internal Medicine; Referring Provider Internal Medicine Pulmonary Disease; Visit Provider Internal Medicine Pulmonary Disease
DX: R05.9 Cough, unspecified (principal); J32.8 Other chronic sinusitis
CPT/HCPCS: 87070; 87077; 87186; 87205

== ENCOUNTER → 2023-08-17 | Outpatient (CLI) | payer SELFPAY ==
[2023-04-18 11:48] VITALS: BMI 32.9
[2023-08-17 11:38] LABS: ALB/GLOB Ratio 0.8 RATIO (0.9-2.4); AST(SGOT) 79 U/L (15-37); Alanine Aminotransfer ALT/SGPT 190 U/L (13-56); Albumin, Serum 3.4 g/dL (3.2-5.0); Alkaline Phosphatase 109 U/L (45-117); Anion Gap 4 (5-15); BUN 15 mg/dL (7-18); BUN/Creat Ratio 23.6 RATIO (10-20); Calcium,Total 9.1 mg/dL (8.5-10.1); Chloride 104 mmol/L (98-107); Cholesterol 196 mg/dL (200); Creatinine, Serum 0.64 mg/dL (0.55-1.02); EST Glomerular Filtration Rate 102 mL/min (>60); Est Glom Filt Rate - Afr Amer 124 mL/min (>60); Globulin 4.2 g/dL (2.2-4.2); Glucose 93 mg/dL (74-106); High Density Lipoprotein 60 mg/dL; Potassium 4.3 mmol/L (3.5-5.1); Protein, Total 7.6 g/dL (6.4-8.2); Sodium Level 135 mmol/L (136-145); Triglycerides 83 mg/dL; Very Low Density Lipoprotein 17 mg/dL (5-40)
== END | disposition home or self-care (01) ==
PROVIDERS: PCP Nurse Practitioner; Referring Provider Internal Medicine Cardiovascular Disease; Visit Provider Internal Medicine Cardiovascular Disease
DX: I10 Essential (primary) hypertension (principal); E78.5 Hyperlipidemia, unspecified
CPT/HCPCS: 36415; 80053; 80061

== ENCOUNTER → 2023-08-28 | Outpatient (CLI) | payer SELFPAY ==
[2023-04-18 11:48] VITALS: BMI 32.9
--- NOTE | 2023-08-28 07:17 | US_ITS ---
STUDY: ABDOMINAL ULTRASOUND REASON FOR EXAM: Female, 57 years old. [place] TECHNIQUE: Transabdominal ultrasound was performed with real-time and static blanco scale imaging. TECHNICAL QUALITY: Adequate. COMPARISON: Comparison is made with prior study dated June 21, 2023 and December 14, 2022. FINDINGS: Liver: The liver measures 16.8 cm. There is increased echogenicity consistent with fatty infiltration. The bile ducts are within normal limits. There is hepatic color flow. The direction of portal flow is hepatopetal. There is no demonstrated mass lesion. Gallbladder: Normal distended gallbladder. The gallbladder wall measures 3.3 mm. There is a negative sonographic Du''s sign. There is no pericholecystic fluid. There are no gallstones. Common Bile Duct (C.B.D.): The common bile duct measures 6.2 mm. Pancreas: Normal size of the head, body and tail of the pancreas. There is normal echogenicity of the pancreas. There is no demonstrated pancreatic mass or cyst. Spleen: There is splenomegaly. The spleen measures 15.2 cm x 6.8 cm x 5.7 cm. Right Kidney: Normal size of the right kidney. The right kidney measures 12.9 cm x 5.8 cm x 4.4 cm. Normal renal cortex. The right cortex measures 1.3 cm. There is no demonstrated renal mass or cyst. There is no right hydronephrosis. Left Kidney: Normal size of the left kidney. The left kidney measures 11.2 cm x 4.2 cm x 4.1 cm. Normal renal cortex. The left cortex measures 1.4 cm. There is no demonstrated renal mass or cyst. There is no left hydronephrosis. Aorta: Unremarkable I.V.C.: The IVC is patent. There is no ascites. US/Abdomen Complete IMPRESSION: Fatty infiltration of the liver. Splenomegaly. Electronically Signed: Bhupinder Willis MD at 14:40 EDT ,
[2023-08-28 08:08] LABS: Vitamin B12 336 pg/mL (211-911); Vitamin D,25 Hydroxy 34.9 ng/mL
[2023-08-28 08:12] LABS: AST(SGOT) 83 U/L (15-37); Alanine Aminotransfer ALT/SGPT 139 U/L (13-56); Albumin, Serum 3.2 g/dL (3.2-5.0); Alkaline Phosphatase 105 U/L (45-117); Anion Gap 7 (5-15); BUN 11 mg/dL (7-18); BUN/Creat Ratio 17.5 RATIO (10-20); Bilirubin, Direct 0.13 mg/dL (0.00-0.30); Calcium,Total 8.7 mg/dL (8.5-10.1); Chloride 103 mmol/L (98-107); Creatinine, Serum 0.63 mg/dL (0.55-1.02); EST Glomerular Filtration Rate 104 mL/min (>60); Est Glom Filt Rate - Afr Amer 126 mL/min (>60); Ferritin 58 ng/mL (8-252); Glucose 154 mg/dL (74-106); Iron 42 ug/dL (50-170); Iron Binding Capacity,Total 325 ug/dL (250-450); PERCENT IRON SATURATION 12.9 % (15.0-55.0); Potassium 4.4 mmol/L (3.5-5.1); Protein, Total 7.2 g/dL (6.4-8.2); Sodium Level 134 mmol/L (136-145); Thyroid Stim Hormone (TSH) 1.64 uIU/mL (0.358-3.74)
[2023-08-28 08:25] LABS: Absolute Lymphocyte Count 1.16 X10^3/uL (0.83-4.51); Absolute Neutrophil Count 2.6 X10^3/uL (2.0-7.7); Basophil# 0.01 X10^3/uL; Basophil% 0.2 % (0-1); Eosinophil# 0.04 X10^3/uL; Eosinophils% 0.9 % (0-5); Hematocrit 35.8 % (37-47); Hemoglobin 11.2 g/dL (12.0-15.0); Lymphocyte # 1.16 X10^3/ul (0.83-4.51); Lymphocyte % 27.4 % (19-41); Mean Corp Hgb Conc 31.3 g/dL (32-36); Mean Corpuscular Hgb 27.2 pg (27.0-32.0); Mean Corpuscular Volume 86.9 fL (81-99); Mean Platelet Vol. 11.2 fl (6.2-12.0); Monocyte# 0.39 X10^3/uL; Monocyte% 9.2 % (0-10); NRBC Flagged by Analyzer 0 % (0-5); Neutrophil # 2.62 X10^3/uL (2.7-7.7); Neutrophil % 62.1 % (47-70); POSITIVE MORPHOLOGY YES; Platelet Count 138 K/mm3 (150-450); RBC Distribution Width CV 24.1 % (11.6-14.6); RBC Distribution Width SD 75.6 fl (35.1-43.9); Red Blood Count 4.12 M/mm3 (4.2-5.4); White Blood Count 4.2 K/mm3 (4.4-11.0)
[2023-08-28 08:30] LABS: International Normalized Ratio 1.2; Prothrombin Time (Protime)PT. 15.1 SECONDS (11.7-14.9)
[2023-08-28 08:43] LABS: Differential Indicated SCAN CRITERIA MET
[2023-08-29 05:57] LABS: AFP, Tumor Marker 6.5 ng/mL (0.0-9.2)
== END | disposition home or self-care (01) ==
PROVIDERS: PCP Nurse Practitioner; Referring Provider Internal Medicine Gastroenterology; Visit Provider Internal Medicine Gastroenterology
DX: K75.81 Nonalcoholic steatohepatitis (NASH) (principal); R16.1 Splenomegaly, not elsewhere classified
CPT/HCPCS: 36415; 76700; 80048; 80076; 82105; 82306; 82607; 82728; 83540; 83550; 84443; 85025; 85610

== ENCOUNTER 2023-10-05 07:20 | Emergency (ER) | payer MEDICAID, SELFPAY ==
[2023-04-18 11:48] VITALS: BMI 32.9
[2023-10-05 07:20] VITALS: BP 179/95; PULSE 86; RESP 14; TEMP 36.1; O2SAT 99; BMI 33.4
--- NOTE | 2023-10-05 07:48 | EDS_ITS ---
HPI History of Present Illness Chief Complaint: Lower Extremity Injury Informant: patient Narrative Narrative: Patient is a 58-year-old female with history of autoimmune disorder (Graves' disease, Raynaud's disease and interstitial lung disease), proximal atrial f ibrillation who underwent cardiac ablation 1 week ago at [facility]. Patient states she was in the shower this morning and felt a hard bump at her right groin which was her surgical site for her ablation. She was concerned and came in to have this evaluated. She does that since the procedure she has been feeling off and had some lightheadedness. She had outpatient lab work yesterday with her PCP including a CBC and CMP which I reviewed. She denies any chest pain. She also had some discomfort in her right calf. Patient states has not missed any doses of her Eliquis including for the procedure. She is also having bruising from the procedure site. Denies any chest pain or difficulty breathing. No other complaints or concerns at this time. [facility] Medical History COVID (~04/2023) Paroxysmal atrial fibrillation Atrial fibrillation by electrocardiography Dyslipidemia Dyspnea Abnormal bruising Srini's disease SOB (shortness of breath) on exertion Coronary artery disease Abnormal exercise tolerance test Chest pain Palpitations Abnormal finding on EKG HSV-2 infection Cervicalgia Mixed connective tissue disease Interstitial lung disease Raynaud disease Essential hypertension Lupus Graves disease Fibromyalgia Diabetes Home Medications ?Medication ?Instructions ?Recorded ?Last Taken ?Type citalopram 20 mg tablet 20 mg PO DAILY 05/15/20 Unknown History fluticasone propionate 50 2 spray NASAL DAILY 05/15/20 Unknown History mcg/actuation nasal spray,suspension levalbuterol tartrate 45 15 g IH Q4H PRN PRN Shortness Of 05/15/20 Unknown History mcg/actuation aerosol inhaler Breath montelukast 10 mg tablet 10 mg PO DAILY 05/15/20 Unknown History epinephrine 0.3 mg/0.3 mL 0.3 mg IM ONCE 08/04/22 Unknown History injection, auto-injector triamcinolone acetonide 0.1 % 1 applic topical DAILY 08/04/22 Unknown History topical cream lansoprazole 30 mg capsule,delayed 30 mg PO DAILY 08/08/22 Unknown History release metformin 500 mg tablet,extended 1,000 mg PO BID 08/08/22 12/26/22 History release 24 hr nitroglycerin 0.4 mg sublingual 0.4 mg sublingual Q5M PRN 12/27/22 Unknown Rx tablet Cardiac/Chest Pain #15 tabs budesonide 1 mg/2 mL suspension 0.5 mg inhalation BID PRN sob 01/24/23 Unknown History for nebulization (Pulmicort) clopidogrel 75 mg tablet (Plavix) 75 mg PO DAILY #90 tabs 03/26/23 Unknown Rx apixaban 5 mg tablet (Eliquis) 5 mg PO BID #60 tabs 04/02/23 Unknown Rx benzonatate 200 mg capsule 200 mg PO TID PRN cough #20 caps 04/29/23 Unknown Rx isosorbide mononitrate 30 mg 30 mg PO QAM #90 tabs 06/05/23 Unknown Rx tablet,extended release 24 hr ondansetron HCl 4 mg tablet 4 mg PO Q8H PRN nausea and 06/21/23 Unknown Rx vomiting #10 tabs diltiazem HCl 120 mg 120 mg PO .COMPLEX #60 caps 07/06/23 Unknown Rx capsule,extended release 24 hr pravastatin 20 mg tablet 20 mg PO QHS #90 tabs 07/10/23 Unknown Rx prednisone 20 mg tablet 20 mg PO DAILY 08/06/23 Unknown History carvedilol 25 mg tablet 25 mg PO BID #180 tabs 08/16/23 Unknown Rx cefdinir 300 mg capsule 300 mg PO Q12H 08/16/23 Unknown History losartan 50 mg tablet 50 mg PO DAILY 08/16/23 Unknown History Allergy/AdvReac Type Severity Reaction Status Date / Time cantaloupe Allergy Angioedema Verified 10/05/23 07:21 Sulfa (Sulfonamide Allergy Hives Verified 10/05/23 07:21 Antibiotics) levofloxacin (From Levaquin) AdvReac Intermediate Hives Verified 10/05/23 07:21 Family History Mother CAD (coronary artery disease) stents Hypertension Vertigo Pacemaker Enlarged heart Father Cancer prostate Sister Sjogrens syndrome Grandmother Heart disease Grandfather Heart disease Uncle Heart disease Enlarged heart Surgical History Stented coronary artery (~12/27/22) Hx of sinus surgery Hx of bilateral cataract extraction Hx of tonsillectomy Hx of hysterectomy Hx of dilation and curettage Social History Smoking Status: Never smoker alcohol intake: current alcohol intake frequency: holidays/special occasions only substance use type: does not use caffeine: Yes Type: coffee Number of servings: 1 ROS ROS ED Constitutional Constitutional ED: Denies chills Cardiovascular Cardiovascular: Denies chest pain or palpitations Respiratory/Chest Respiratory/Chest: Denies dyspnea Gastrointestinal Gastrointestinal: Reports abdominal pain and nausea Musculoskeletal Musculoskeletal: Reports other Details: Right calf pain ; Denies arthralgias or myalgias Integumentary Reports other Details: Bruising, lump at right groin Psychiatric Psychiatric: Reports anxiety Hematologic/Lymphatic Hematologic/Lymphatic: Reports easy bleeding and easy bruising EXAM Physical Exam Const Vital Signs: 10/05/23 07:20 10/05/23 08:31 10/05/23 08:59 Temperature 97 F L 97.3 F L Temperature Source Temporal Pulse Rate 86 82 Pulse Rate [Lying] 80 Pulse Rate [Sitting (for 1 minute prior to obtaining)] 78 Pulse Rate [Standing (for 1 minute prior to obtaining)] 83 Respiratory Rate 14 14 Blood Pressure 179/95 H 164/76 H Blood Pressure [Lying] 173/94 H Blood Pressure [Sitting (for 1 minute prior to obtaining)] 177/93 H Blood Pressure [Standing (for 1 minute prior to obtaining)] 170/86 H Blood Pressure Mean 123 105 Blood Pressure Mean [Lying] 120 Blood Pressure Mean [Sitting (for 1 minute prior to obtaining)] 121 Blood Pressure Mean [Standing (for 1 minute prior to obtaining)] 114 Pulse Ox 99 95 Oxygen Delivery Method Room Air Positive well nourished and well developed General Appearance ED: well developed and NAD HEENT Reports moist mucous membranes Eyes PERRL Neck supple and no JVD Chest Wall inspection of chest normal Resp normal respiratory effort and clear to auscultation bilaterally Cardio regular rate, regular rhythm and no murmurs GI normal to inspection, nondistended, normoactive bowel sounds and non-tender Extremity normal to inspection Extremity Narrative: No palpable cords. 2+ DP pulse of the right lower extremity. Compartments are soft General Extremety ED: Negative for edema or tenderness General Extremity: Negative for edema Neuro oriented x3 Sensorium / Orientation: alert Skin Skin Narrative: Scattered ecchymosis of the lower extremities and very stages of healing. Patient does have ecchymosis of her mons pubis and into her right groin radiating to the thigh that appears to be healing. No hematoma appreciated. There is no pulsatile mass. Patient does have firm 2 mm nodule at the right groin. There is no associated fluctuance or overlying erythema. This is at the site of the femoral artery access point. There is no drainage or oozing appreciated. MDM MDM MDM Narrative Medical decision making narrative: Patient evaluated for wound check. Patient had cardiac ablation 1 week ago with access at the right groin. She has healing ecchymosis and a small nodule that I suspect is either scar tissue or possibly a patch that was placed by the surgeon. I do not see any signs of infection, hematoma or other more concerning features. Patient does not miss a dose of her Eliquis I highly doubt that she has DVT. She does not have clinical findings concerning for DVT either. As patient had lab work yesterday I do not think requires repeating her more vague symptoms. Will obtain orthostatic vital signs. Orthostatic vital signs are normal. Patient is hypertensive in the ER however she did not take her blood pressure medication today. She does have the bedside and will take her morning medicines. Given that she had normal lab work yesterday, is in normal sinus rhythm based on exam at this time and vital signs are stable do not think she requires a repeat blood work or IV fluids at this time. She is quite agreeable. From a wound check standpoint she does not have any signs of infection, expanding hematoma or other more concerning findings and I feel that she can be discharged home with outpatient follow-up. Patient is agreeable this plan of care. Is given return precautions. History & Record Review Additional record(s) reviewed:: Prior labs (Outpatient labs obtained yesterday including a CBC and CMP which showed a hemoglobin of 10.4 and normal kidney function. No significant electrolyte derangement. Platelets 131.) Discharge Plan Triage Chief Complaint: Lower Extremity Injury ED Provider: Lakshmi Resendiz Dx/Rx/DC Orders Clinical Impression: Postoperative ecchymosis, Encounter for post surgical wound check, Dizziness Instructions: ED Dizziness, Uncertain Cause, ED Post Op Wound Check, General Prescriptions: No Action epinephrine 0.3 mg/0.3 mL auto-injector 0.3 mg IM ONCE Rx Instructions: as a single dose; may repeat once triamcinolone acetonide 0.1 % cream 1 applic topical DAILY budesonide [Pulmicort] 1 mg/2 mL suspension for nebulization 0.5 mg inhalation BID PRN (Reason: sob) isosorbide mononitrate 30 mg tablet extended release 24 hr 30 mg PO QAM Qty: 90 3RF prednisone 20 mg tablet 20 mg PO DAILY Rx Instructions: x30 days cefdinir 300 mg capsule 300 mg PO Q12H losartan 50 mg tablet 50 mg PO DAILY fluticasone propionate 1 SPRAY spray,suspension 2 spray NASAL DAILY citalopram 20 MG tablet 20 mg PO DAILY montelukast 10 MG tablet 10 mg PO DAILY levalbuterol tartrate 15 GM HFA aerosol inhaler 15 g IH Q4H PRN PRN (Reason: Shortness Of Breath) lansoprazole 30 mg capsule,delayed release(DR/EC) 30 mg PO DAILY metformin 500 mg tablet extended release 24 hr 1,000 mg PO BID ondansetron HCl 4 mg tablet 4 mg PO Q8H PRN (Reason: nausea and vomiting) Qty: 10 0RF nitroglycerin 0.4 mg Tablet, Sublingual 0.4 mg sublingual Q5M PRN (Reason: Cardiac/Chest Pain) Qty: 15 6RF benzonatate 200 mg capsule 200 mg PO TID PRN (Reason: cough) Qty: 20 0RF clopidogrel [Plavix] 75 mg tablet 75 mg PO DAILY Qty: 90 3RF Eliquis 5 mg tablet 5 mg PO BID Qty: 60 11RF diltiazem HCl 120 mg capsule,extended release 24hr 120 mg PO .COMPLEX Qty: 60 11RF Rx Instructions: 120 mg orally daily NEEDED for HR 120 or greater; or Systolic BP 140 or greater. pravastatin 20 mg tablet 20 mg PO QHS Qty: 90 4RF carvedilol 25 mg tablet 25 mg PO BID Qty: 180 3RF Rx Instructions: must administer with a meal/food Primary Care Provider: SHAHRIAR MIGUEL Referrals: SHAHRIAR MIGUEL TE[employer] [facility] [Primary Care Provider] - Print Language: Croatian Disposition Disposition: Home, Self Care Discharge Date/Time: 10/05/23 09:00
[2023-10-05 08:31] VITALS: BP 170/86; BP 173/94; BP 177/93; PULSE 78; PULSE 80; PULSE 83
[2023-10-05 08:59] VITALS: BP 164/76; PULSE 82; RESP 14; TEMP 36.3; O2SAT 95
== END 2023-10-05 09:00 | disposition home or self-care (01) ==
PROVIDERS: Emergency Provider Emergency Medicine; PCP Nurse Practitioner; Visit Provider Emergency Medicine
DX: Z51.89 Encounter for other specified aftercare (principal); I48.0 Paroxysmal atrial fibrillation; R42 Dizziness and giddiness; R58 Hemorrhage, not elsewhere classified; Z79.01 Long term (current) use of anticoagulants; I25.10 Atherosclerotic heart disease of native coronary artery without angina pectoris; I10 Essential (primary) hypertension; Z95.5 Presence of coronary angioplasty implant and graft; Z90.710 Acquired absence of both cervix and uterus
CPT/HCPCS: 99283

== ENCOUNTER 2023-10-22 16:12 | Emergency (ER) | payer MEDICAID, SELFPAY ==
[2023-04-18 11:48] VITALS: BMI 32.9
[2023-10-22] VITALS (22 sets, daily range): BP systolic 131–159; BP diastolic 66–90; PULSE 78–83; RESP 12–31; TEMP 36.2–37.1; O2SAT 96–99; BMI 34.4
--- NOTE | 2023-10-22 16:32 | EKG12_ITS ---
Test Reason : CP Blood Pressure : / mmHG Vent. Rate : 082 BPM Atrial Rate : 082 BPM P-R Int : 168 ms QRS Dur : 078 ms QT Int : 372 ms P-R-T Axes : 040 011 043 degrees QTc Int : 434 ms Normal sinus rhythm Cannot rule out Anterior infarct , age undetermined Abnormal ECG Confirmed by LINCOLN KOENIG, JASMYNE ([id number]), primer expeditor and drier ROBLES NAIR ([id number]) on 10/23/2023 11:27:35 AM Referred By: ALTAGRACIA Confirmed By:JASMYNE STARK MD
--- NOTE | 2023-10-22 16:33 | EDS_ITS ---
HPI History of Present Illness Chief Complaint: Chest Pain Informant: patient Narrative Narrative: 58-year-old female history of coronary artery disease status post stenting December 27 as well as atrial fibrillation status postcardiac ablation in September 2023. Patient states she is now about 3 weeks out from her A-fib. She has not had a bout of A-fib since she stopped her previous job. When she went for ablation she was in sinus. She is still on Eliquis but does admit that she has missed some occasional doses. Over the past couple weeks she has had intermittent pressure sometimes sharp and stabbing in her chest. She states since having COVID in April she has had some lung issues today seems a little bit worse than normal. Patient states that she spoke with nursing from cardiology and was sent to the emergency department. Patient underwent stress testing June 30 that was negative. She is continued her Eliquis or Plavix. [facility] Medical History COVID (~04/2023) Paroxysmal atrial fibrillation Atrial fibrillation by electrocardiography Dyslipidemia Dyspnea Abnormal bruising Srini's disease SOB (shortness of breath) on exertion Coronary artery disease Abnormal exercise tolerance test Chest pain Palpitations Abnormal finding on EKG HSV-2 infection Cervicalgia Mixed connective tissue disease Interstitial lung disease Raynaud disease Essential hypertension Lupus Graves disease Fibromyalgia Diabetes Home Medications ?Medication ?Instructions ?Recorded ?Last Taken ?Type citalopram 20 mg tablet 20 mg PO DAILY 05/15/20 Unknown History fluticasone propionate 50 2 spray NASAL DAILY 05/15/20 Unknown History mcg/actuation nasal spray,suspension levalbuterol tartrate 45 15 g IH Q4H PRN PRN Shortness Of 05/15/20 Unknown History mcg/actuation aerosol inhaler Breath montelukast 10 mg tablet 10 mg PO DAILY 05/15/20 Unknown History epinephrine 0.3 mg/0.3 mL 0.3 mg IM ONCE 08/04/22 Unknown History injection, auto-injector triamcinolone acetonide 0.1 % 1 applic topical DAILY 08/04/22 Unknown History topical cream lansoprazole 30 mg capsule,delayed 30 mg PO DAILY 08/08/22 Unknown History release metformin 500 mg tablet,extended 1,000 mg PO BID 08/08/22 12/26/22 History release 24 hr nitroglycerin 0.4 mg sublingual 0.4 mg sublingual Q5M PRN 12/27/22 Unknown Rx tablet Cardiac/Chest Pain #15 tabs budesonide 1 mg/2 mL suspension 0.5 mg inhalation BID PRN sob 01/24/23 Unknown History for nebulization (Pulmicort) clopidogrel 75 mg tablet (Plavix) 75 mg PO DAILY #90 tabs 03/26/23 Unknown Rx apixaban 5 mg tablet (Eliquis) 5 mg PO BID #60 tabs 04/02/23 Unknown Rx benzonatate 200 mg capsule 200 mg PO TID PRN cough #20 caps 04/29/23 Unknown Rx isosorbide mononitrate 30 mg 30 mg PO QAM #90 tabs 06/05/23 Unknown Rx tablet,extended release 24 hr ondansetron HCl 4 mg tablet 4 mg PO Q8H PRN nausea and 06/21/23 Unknown Rx vomiting #10 tabs diltiazem HCl 120 mg 120 mg PO .COMPLEX #60 caps 07/06/23 Unknown Rx capsule,extended release 24 hr pravastatin 20 mg tablet 20 mg PO QHS #90 tabs 07/10/23 Unknown Rx prednisone 20 mg tablet 20 mg PO DAILY 08/06/23 Unknown History carvedilol 25 mg tablet 25 mg PO BID #180 tabs 08/16/23 Unknown Rx cefdinir 300 mg capsule 300 mg PO Q12H 08/16/23 Unknown History losartan 50 mg tablet 50 mg PO DAILY 08/16/23 Unknown History Allergy/AdvReac Type Severity Reaction Status Date / Time cantaloupe Allergy Angioedema Verified 10/22/23 16:13 Sulfa (Sulfonamide Allergy Hives Verified 10/22/23 16:13 Antibiotics) levofloxacin (From Levaquin) AdvReac Intermediate Hives Verified 10/22/23 16:13 Family History Mother CAD (coronary artery disease) stents Hypertension Vertigo Pacemaker Enlarged heart Father Cancer prostate Sister Sjogrens syndrome Grandmother Heart disease Grandfather Heart disease Uncle Heart disease Enlarged heart Surgical History Stented coronary artery (~12/27/22) Hx of sinus surgery Hx of bilateral cataract extraction Hx of tonsillectomy Hx of hysterectomy Hx of dilation and curettage Social History Smoking Status: Never smoker alcohol intake: current alcohol intake frequency: holidays/special occasions only substance use type: does not use caffeine: Yes Type: coffee Number of servings: 1 ROS ROS ED Constitutional Constitutional ED: Denies chills, fever(s) or weight loss Eyes Eyes: Denies change in vision or diplopia ENT ENT ED: Denies ear pain, rhinorrhea or sore throat Cardiovascular Cardiovascular: Reports as per HPI and chest pain; Denies orthopnea, palpitations or racing heartbeat Respiratory/Chest Respiratory/Chest: Reports dyspnea; Denies cough or orthopnea Gastrointestinal Gastrointestinal: Denies abdominal pain, diarrhea, nausea or vomiting Genitourinary Genitourinary ED: Denies dysuria, hematuria or urinary frequency Musculoskeletal Musculoskeletal: Denies arthralgias or myalgias Integumentary Denies abscess or rash Neurologic Neurologic: Denies headache(s) or weakness Psychiatric Psychiatric: Denies anxiety, depression, suicidal ideation or suicidal thoughts Endocrine Endocrinology: Denies polydipsia, polyphagia or polyuria Allergic/Immunologic Allergic/Immunologic ED: Denies mouth swelling, tongue swelling or urticaria EXAM Physical Exam Const Vital Signs: 10/22/23 16:13 10/22/23 16:35 10/22/23 16:50 Temperature 97.2 F L Temperature Source Temporal Pulse Rate 83 83 Respiratory Rate 18 22 H Respiratory Effort Normal Non-Labored Blood Pressure 157/90 H 134/77 H Blood Pressure Mean 112 96 Pulse Ox 97 97 Oxygen Delivery Method Room Air 10/22/23 16:55 10/22/23 17:00 10/22/23 17:05 Temperature Temperature Source Pulse Rate 80 79 79 Respiratory Rate 21 H 18 12 Respiratory Effort Blood Pressure 138/79 H 140/79 H 148/80 H Blood Pressure Mean 97 97 101 Pulse Ox 97 99 98 Oxygen Delivery Method 10/22/23 17:10 10/22/23 17:15 10/22/23 17:20 Temperature Temperature Source Pulse Rate 80 81 79 Respiratory Rate 27 H 24 H 19 H Respiratory Effort Blood Pressure 147/88 H 143/81 H 151/79 H Blood Pressure Mean 105 101 101 Pulse Ox 97 97 98 Oxygen Delivery Method 10/22/23 17:25 10/22/23 17:30 10/22/23 17:35 Temperature Temperature Source Pulse Rate 79 79 79 Respiratory Rate 18 23 H 18 Respiratory Effort Blood Pressure 131/69 H 151/80 H 153/82 H Blood Pressure Mean 84 102 104 Pulse Ox 97 98 98 Oxygen Delivery Method 10/22/23 17:40 10/22/23 17:45 10/22/23 17:45 Temperature Temperature Source Pulse Rate 80 80 80 Respiratory Rate 24 H 16 16 Respiratory Effort Blood Pressure 157/82 H 149/84 H Blood Pressure Mean 104 102 Pulse Ox 97 97 97 Oxygen Delivery Method 10/22/23 18:00 10/22/23 18:15 10/22/23 18:30 Temperature Temperature Source Pulse Rate 79 81 80 Respiratory Rate 17 22 H 25 H Respiratory Effort Blood Pressure 159/86 H 153/79 H 150/84 H Blood Pressure Mean 105 97 104 Pulse Ox 98 99 98 Oxygen Delivery Method 10/22/23 18:45 10/22/23 18:56 10/22/23 19:00 Temperature Temperature Source Pulse Rate 82 81 Respiratory Rate 18 31 H Respiratory Effort Blood Pressure 136/66 H Blood Pressure Mean 87 Pulse Ox 96 96 Oxygen Delivery Method 10/22/23 19:35 10/22/23 20:00 Temperature 98.7 F 97.1 F L Temperature Source Oral Temporal Pulse Rate 78 80 Respiratory Rate 27 H 23 H Respiratory Effort Blood Pressure 154/86 H 159/88 H Blood Pressure Mean 108 108 Pulse Ox 98 97 Oxygen Delivery Method Room Air Positive well nourished and well developed General Appearance ED: well developed HEENT Reports normocephalic, head/scalp atraumatic and moist mucous membranes Eyes PERRL and EOMs intact bilaterally Neck no lymphadenopathy, supple and no JVD Resp normal respiratory effort and clear to auscultation bilaterally Cardio regular rate, regular rhythm and no murmurs GI normal to inspection, nondistended, normoactive bowel sounds and non-tender Palpation: soft Back/Spine no CVA tenderness and normal ROM Extremity normal to inspection General Extremety ED: Negative for edema General Extremity: Negative for edema Neuro oriented x3 and CN's II-XII intact bilaterally Sensorium / Orientation: alert Motor Exam: strength 5/5 throughout Psych mental status grossly normal Mood & Affect: Negative for depressed or tearful Skin no rashes or lesions noted and no wounds MDM MDM MDM Narrative Medical decision making narrative: Differential diagnosis includes but not limited to acute coronary syndrome, cardiac dysrhythmia, pulmonary embolism, pneumothorax, pneumonia, pleural effusion, anemia, aortic dissection. White count 3.6 with hemoglobin of 10.1 MCV of 94.5 and platelet count of 146. 2 sets of cardiac enzymes are normal. Magnesium 1.6 potassium 4.3 sodium 132 glucose 79. My independent interpretation of the plain films of the chest is no acute process. Because the patient most likely has missed a dose or 2 of Eliquis within the past month a CTA of the chest was obtained. Please see radiologist read. No obvious pulmonary embolism or aortic dissection was seen. No pleural effusion. Patient has remained in normal sinus rhythm here. At this point I will have the patient discharged home. She was given instructions to follow-up with her polisher aluminum as there was some concern expressed by the radiologist regarding some mediastinal lymphadenopathy. She is asked for a local it security analyst to discuss her CBC given her pancytopenia. She states her primary care doctor referred her to somebody in [place] and in [place] but she would prefer to stay local. I recommend follow-up with cardiology. Patient understands the plan is comfortable with that History & Record Review Discussion w/independent historian: Patient Additional record(s) reviewed:: Prior outpatient record, Prior ED visit and Prior labs Lab Data Attestation: I reviewed the patient's lab results. Labs: Laboratory Results - last 24 hr 10/22/23 10/22/23 16:37 18:41 WBC 3.6 L RBC 3.25 L Hgb 10.1 L Hct 30.7 L MCV 94.5 MCH 31.1 MCHC 32.9 RDW Std Deviation 54.4 H RDW Coeff of Ted 15.8 H Plt Count 146 L MPV 11.6 Immature Gran % (Auto) 0.300 Neut % (Auto) 49.5 Lymph % (Auto) 34.1 [place] % (Auto) 13.3 H Eos % (Auto) 2.2 Baso % (Auto) 0.6 Absolute Neuts (auto) 1.8 L Absolute Lymphs (auto) 1.23 Nucleated RBC % 0 Differential Comment SCANNED Sodium 132 L Potassium 4.3 Chloride 102 Carbon Dioxide 23.0 Anion Gap 7 BUN 10 Creatinine 0.61 Estim Creat Clear Calc 105.98 Est GFR (MDRD) Af Amer 129 Est GFR (MDRD) Non-Af 106 BUN/Creatinine Ratio 16.3 Glucose 79 Calcium 8.9 Magnesium 1.6 Troponin I High Sens 14 6 Radiography Diagnostic Testing: Clinical Impression(s) from Imaging Studies Chest X-Ray 10/22/23 16:45 IMPRESSION: No definite acute or significant abnormality seen. Electronically Signed: Jose Ceballos MD at 17:00 EDT , Chest CTA 10/22/23 18:12 IMPRESSION: Normal CTA chest examination, without a demonstrated pulmonary embolism or arterial dissection. Incomplete expansion of the lungs. Fibrotic changes of both lungs especially the lung bases. Mediastinal and bilateral axillary adenopathy. The appearance is nonspecific. Correlate clinically and consider biopsy. Electronically Signed: Jose Ceballos MD at 19:48 EDT , EKG Initial EKG: Attestation: I personally reviewed and interpreted this EKG as follows: Comments: Normal sinus rhythm ventricular rate of 82 bpm. No significant change when compared to 28 April 2023 Discharge Plan Triage Chief Complaint: Chest Pain ED Provider: Nathaniel Jay Dx/Rx/DC Orders Clinical Impression: Chest pain, Paroxysmal atrial fibrillation, Anticoagulated Instructions: ED Chest Pain, Uncertain Cause Prescriptions: No Action epinephrine 0.3 mg/0.3 mL auto-injector 0.3 mg IM ONCE Rx Instructions: as a single dose; may repeat once triamcinolone acetonide 0.1 % cream 1 applic topical DAILY budesonide [Pulmicort] 1 mg/2 mL suspension for nebulization 0.5 mg inhalation BID PRN (Reason: sob) isosorbide mononitrate 30 mg tablet extended release 24 hr 30 mg PO QAM Qty: 90 3RF prednisone 20 mg tablet 20 mg PO DAILY Rx Instructions: x30 days cefdinir 300 mg capsule 300 mg PO Q12H losartan 50 mg tablet 50 mg PO DAILY fluticasone propionate 1 SPRAY spray,suspension 2 spray NASAL DAILY citalopram 20 MG tablet 20 mg PO DAILY montelukast 10 MG tablet 10 mg PO DAILY levalbuterol tartrate 15 GM HFA aerosol inhaler 15 g IH Q4H PRN PRN (Reason: Shortness Of Breath) lansoprazole 30 mg capsule,delayed release(DR/EC) 30 mg PO DAILY metformin 500 mg tablet extended release 24 hr 1,000 mg PO BID ondansetron HCl 4 mg tablet 4 mg PO Q8H PRN (Reason: nausea and vomiting) Qty: 10 0RF nitroglycerin 0.4 mg Tablet, Sublingual 0.4 mg sublingual Q5M PRN (Reason: Cardiac/Chest Pain) Qty: 15 6RF benzonatate 200 mg capsule 200 mg PO TID PRN (Reason: cough) Qty: 20 0RF clopidogrel [Plavix] 75 mg tablet 75 mg PO DAILY Qty: 90 3RF Eliquis 5 mg tablet 5 mg PO BID Qty: 60 11RF diltiazem HCl 120 mg capsule,extended release 24hr 120 mg PO .COMPLEX Qty: 60 11RF Rx Instructions: 120 mg orally daily NEEDED for HR 120 or greater; or Systolic BP 140 or greater. pravastatin 20 mg tablet 20 mg PO QHS Qty: 90 4RF carvedilol 25 mg tablet 25 mg PO BID Qty: 180 3RF Rx Instructions: must administer with a meal/food Primary Care Provider: SHAHRIAR MIGUEL Referrals: Damian Brasher DO [Med Staff - Active Staff] - (for hematology) SHAHRIAR MIGUEL NP-C [Primary Care Provider] - Activity Restrictions/Additional Instructions: I would recommend you talk with Dr. Blanca about the lymph nodes on your CT chest. Please follow-up with cardiology regarding your chest pain. Print Language: Slovenian Disposition Disposition: Home, Self Care
[2023-10-22] MEDS: Aspirin 81 MG TAB.CHEW 324 MG PO (16:42)
--- NOTE | 2023-10-22 16:45 | RAD_ITS ---
STUDY: X-RAY CHEST REASON FOR EXAM: Female, 58 years old. chest pain TECHNIQUE: Single AP portable view of the chest. COMPARISON: 04/29/2023. FINDINGS: The lungs are clear and expanded. There is no demonstrated pleural abnormality. Normal size heart. Normal mediastinum and balwinder. Normal visualized pulmonary arteries. Normal visualized aortic arch and descending thoracic aorta. Normal visualized thoracic spine. Stable old right rib fractures. There is no demonstrated abnormality of the visualized soft tissue structures of the upper abdomen. RAD/Chest 1 View (Portable) IMPRESSION: No definite acute or significant abnormality seen. Electronically Signed: Jose Ceballos MD at 17:00 EDT ,
[2023-10-22 16:47] LABS: Absolute Lymphocyte Count 1.23 X10^3/uL (0.83-4.51); Absolute Neutrophil Count 1.8 X10^3/uL (2.0-7.7); Basophil# 0.02 X10^3/uL; Basophil% 0.6 % (0-1); Eosinophil# 0.08 X10^3/uL; Eosinophils% 2.2 % (0-5); Hematocrit 30.7 % (37-47); Hemoglobin 10.1 g/dL (12.0-15.0); Lymphocyte # 1.23 X10^3/ul (0.83-4.51); Lymphocyte % 34.1 % (19-41); Mean Corp Hgb Conc 32.9 g/dL (32-36); Mean Corpuscular Hgb 31.1 pg (27.0-32.0); Mean Corpuscular Volume 94.5 fL (81-99); Mean Platelet Vol. 11.6 fl (6.2-12.0); Monocyte# 0.48 X10^3/uL; Monocyte% 13.3 % (0-10); NRBC Flagged by Analyzer 0 % (0-5); Neutrophil # 1.79 X10^3/uL (2.7-7.7); Neutrophil % 49.5 % (47-70); POSITIVE MORPHOLOGY YES; Platelet Count 146 K/mm3 (150-450); RBC Distribution Width CV 15.8 % (11.6-14.6); RBC Distribution Width SD 54.4 fl (35.1-43.9); Red Blood Count 3.25 M/mm3 (4.2-5.4); White Blood Count 3.6 K/mm3 (4.4-11.0)
[2023-10-22 17:31] LABS: Differential Comment SCANNED; Differential Indicated SCAN CRITERIA MET
[2023-10-22 18:10] LABS: Anion Gap 7 (5-15); BUN 10 mg/dL (7-18); BUN/Creat Ratio 16.3 RATIO (10-20); Calcium,Total 8.9 mg/dL (8.5-10.1); Chloride 102 mmol/L (98-107); Creatinine, Serum 0.61 mg/dL (0.55-1.02); EST Glomerular Filtration Rate 106 mL/min (>60); Est Glom Filt Rate - Afr Amer 129 mL/min (>60); Estimated Creatinine Clearance 105.98 ml/min; Glucose 79 mg/dL (74-106); Magnesium 1.6 mg/dL (1.6-2.6); Potassium 4.3 mmol/L (3.5-5.1); Sodium Level 132 mmol/L (136-145); Troponin-I HS (w/2H Reflex) 14 pg/mL (3.0-54.0)
--- NOTE | 2023-10-22 18:12 | CT_ITS ---
STUDY: CTA CHEST REASON FOR EXAM: Female, 58 years old. pulmonary embolism RADIATION DOSAGE (If Supplied By Facility): CTDIvol = ( 20.06 ) mGy, DLP = ( 443.50 ) mGycm TECHNIQUE: The examination was performed with the intravenous administration of IV 100mL [id number]-[id number]. Post-processing of the angiographic images was performed, with multiplanar reformation and 3D reconstruction. Individualized dose optimization techniques were used for this CT. COMPARISON: None. FINDINGS: Normal enhancement of the main pulmonary artery and right and left pulmonary arteries. Normal enhancement of the bilateral peripheral pulmonary arteries. There is no demonstrated pulmonary embolism. Normal thoracic aorta and visualized great vessels. There is no demonstrated aortic dissection. Normal heart and pericardium. There are calcifications of the coronary arteries. Moderate degenerative adenopathy throughout the mediastinum of uncertain etiology and significance. Normal visualized trachea and bronchi. Incomplete expansion of the lungs. Moderate lung volumes. Fibrotic changes of the mid and lower lung bentley, primarily oriented peripherally. Mild bronchiectasis in the lung bases. No infiltrates or effusions Bilateral moderate indeterminate axillary adenopathy worse on the left. There are degenerative changes of thoracic spine. Small hiatal hernia. CT/CTA Chest W/WO Contrast IMPRESSION: Normal CTA chest examination, without a demonstrated pulmonary embolism or arterial dissection. Incomplete expansion of the lungs. Fibrotic changes of both lungs especially the lung bases. Mediastinal and bilateral axillary adenopathy. The appearance is nonspecific. Correlate clinically and consider biopsy. Electronically Signed: Jose Ceballos MD at 19:48 EDT ,
[2023-10-22 18:40] LABS: Reflex Troponin-HS? (from REC) Y
[2023-10-22 19:11] LABS: Troponin-I HS 6 pg/mL (3.0-54.0)
== END 2023-10-22 20:43 | disposition home or self-care (01) ==
PROVIDERS: Emergency Provider Emergency Medicine; PCP Nurse Practitioner; Visit Provider Emergency Medicine
DX: R07.9 Chest pain, unspecified (principal); I48.0 Paroxysmal atrial fibrillation; E11.9 Type 2 diabetes mellitus without complications; I25.10 Atherosclerotic heart disease of native coronary artery without angina pectoris; Z79.01 Long term (current) use of anticoagulants; Z95.5 Presence of coronary angioplasty implant and graft; E78.5 Hyperlipidemia, unspecified; I10 Essential (primary) hypertension; Z79.84 Long term (current) use of oral hypoglycemic drugs; Z79.02 Long term (current) use of antithrombotics/antiplatelets; Z98.41 Cataract extraction status, right eye; Z98.42 Cataract extraction status, left eye; Z90.710 Acquired absence of both cervix and uterus
CPT/HCPCS: 71045; 71275; 80048; 83735; 84484; 85025; 93005; 99284; Q9967; A4216

== ENCOUNTER → 2023-12-11 | Outpatient (CLI) | payer MEDICAID, SELFPAY ==
[2023-04-18 11:48] VITALS: BMI 32.9
[2023-12-11 12:42] LABS: AST(SGOT) 95 U/L (15-37); Alanine Aminotransfer ALT/SGPT 97 U/L (13-56); Albumin, Serum 3.2 g/dL (3.2-5.0); Alkaline Phosphatase 125 U/L (45-117); Bilirubin, Direct 0.21 mg/dL (0.00-0.30); Cholesterol 143 mg/dL (200); Globulin 4.4 g/dL (2.2-4.2); High Density Lipoprotein 37 mg/dL; Protein, Total 7.6 g/dL (6.4-8.2); Triglycerides 83 mg/dL; Very Low Density Lipoprotein 17 mg/dL (5-40)
== END | disposition home or self-care (01) ==
LOC: LAB 11:41
PROVIDERS: PCP Nurse Practitioner; Referring Provider Nurse Practitioner Gerontology; Visit Provider Nurse Practitioner Gerontology
DX: E78.00 Pure hypercholesterolemia, unspecified (principal)
CPT/HCPCS: 36415; 80061; 80076

== ENCOUNTER 2024-02-13 08:53 | Outpatient (CLI) | payer MEDICAID, SELFPAY ==
[2023-04-18 11:48] VITALS: BMI 32.9
[2024-02-13 09:58] LABS: Absolute Lymphocyte Count 0.78 X10^3/uL (0.83-4.51); Absolute Neutrophil Count 1.8 X10^3/uL (2.0-7.7); Basophil# 0.01 X10^3/uL; Basophil% 0.3 % (0-1); Eosinophil# 0.06 X10^3/uL; Eosinophils% 1.9 % (0-5); Hematocrit 30.9 % (37-47); Hemoglobin 9.8 g/dL (12.0-15.0); Lymphocyte # 0.78 X10^3/ul (0.83-4.51); Lymphocyte % 25.3 % (19-41); Mean Corp Hgb Conc 31.7 g/dL (32-36); Mean Corpuscular Hgb 31.9 pg (27.0-32.0); Mean Corpuscular Volume 100.7 fL (81-99); Mean Platelet Vol. 11.2 fl (6.2-12.0); Monocyte# 0.38 X10^3/uL; Monocyte% 12.3 % (0-10); NRBC Flagged by Analyzer 0 % (0-5); Neutrophil # 1.84 X10^3/uL (2.7-7.7); Neutrophil % 59.9 % (47-70); Platelet Count 168 K/mm3 (150-450); RBC Distribution Width CV 14.6 % (11.6-14.6); RBC Distribution Width SD 54.6 fl (35.1-43.9); Red Blood Count 3.07 M/mm3 (4.2-5.4); White Blood Count 3.1 K/mm3 (4.4-11.0)
[2024-02-13 10:07] LABS: Erythrocyte Sedimentation Rate 17 mm/hr (0-30)
[2024-02-13 11:20] LABS: ALB/GLOB Ratio 0.9 RATIO (0.9-2.4); AST(SGOT) 48 U/L (15-37); Alanine Aminotransfer ALT/SGPT 53 U/L (13-56); Albumin, Serum 3.6 g/dL (3.2-5.0); Alkaline Phosphatase 91 U/L (45-117); Anion Gap 6 (5-15); BUN 13 mg/dL (7-18); BUN/Creat Ratio 20.8 RATIO (10-20); CRP 3.95 mg/L (0.0-3.0); Calcium,Total 9.8 mg/dL (8.5-10.1); Chloride 105 mmol/L (98-107); Creatinine, Serum 0.63 mg/dL (0.55-1.02); EST Glomerular Filtration Rate 104 mL/min (>60); Est Glom Filt Rate - Afr Amer 126 mL/min (>60); Free T3 2.5 pg/mL (2.18-3.98); Globulin 3.8 g/dL (2.2-4.2); Glucose 114 mg/dL (74-106); LDH 198 U/L (84-246); Potassium 4.4 mmol/L (3.5-5.1); Protein, Total 7.4 g/dL (6.4-8.2); Sodium Level 133 mmol/L (136-145)
[2024-02-17 17:07] LABS: Anti-Centromere B Ab <0.2 AI (0.0-0.9); Anti-Chromatin 6.2 AI (0.0-0.9); Anti-Jo <0.2 AI (0.0-0.9); Anti-Scleroderma-70 AB <0.2 AI (0.0-0.9); Anti-dsDNA Ab 2 IU/mL (0-9); Beef <0.10 kU/L (Class 0); Chocolate <0.10 kU/L (Class 0); Codfish <0.10 kU/L (Class 0); Corn <0.10 kU/L (Class 0); Egg, Whole <0.10 kU/L (Class 0); Milk (Cow) <0.10 kU/L (Class 0); Mussels <0.10 kU/L (Class 0); Peanut <0.10 kU/L (Class 0); Pork <0.10 kU/L (Class 0); RNP Ab 5.8 AI (0.0-0.9); SJOGREN'S Anti-SS-A test < 0.2 AI (0.0-0.9); SJOGREN'S Anti-SS-B test < 0.2 AI (0.0-0.9); Salmon <0.10 kU/L (Class 0); Shrimp <0.10 kU/L (Class 0); Smith Ab 0.2 AI (0.0-0.9); Soybean <0.10 kU/L (Class 0); Tuna <0.10 kU/L (Class 0); Wheat <0.10 kU/L (Class 0)
[2024-02-19 11:09] LABS: ACCA 12 units (0-90); ALCA 7 units (0-60); AMCA 30 units (0-100); Albumin 3.7 g/dL (2.9-4.4); Alpha-1-Globulins 0.3 g/dL (0.0-0.4); Alpha-2-Globulins 0.5 g/dL (0.4-1.0); Cytoplasmic Ab (C-ANCA) <1:20 titer (Neg:<1:20); Endomysial Antibody IgA Negative (Negative); Gamma Globulin 1.3 g/dL (0.4-1.8); Immunoglobulin A 162 mg/dL (87-352); Immunoglobulin E 5 IU/mL (6-495); Immunoglobulin G 1438 mg/dL (586-1602); Immunoglobulin M 64 mg/dL (26-217); PROEL- TOTAL PROTEIN 6.7 g/dL (6.0-8.5); Perinuclear Ab (P-ANCA) <1:20 titer (Neg:<1:20); gASCA 17 units (0-50); t-Transglutaminase IgA <2 U/mL (0-3)
== END 2024-02-13 23:59 | disposition home or self-care (01) ==
LOC: LAB 08:55
PROVIDERS: PCP Nurse Practitioner; Referring Provider Student in an Organized Health Care Education/Training Program; Visit Provider Student in an Organized Health Care Education/Training Program
DX: R19.7 Diarrhea, unspecified (principal); R79.89 Other specified abnormal findings of blood chemistry
CPT/HCPCS: 36415; 80053; 82784; 82785; 83516; 83615; 84165; 84439; 84443; 84481; 85025; 85652; 86003; 86005; 86036; 86037; 86140; 86225; 86235; 86255; 86334; 86671

== ENCOUNTER → 2024-02-28 | Outpatient (CLI) | payer MEDICAID, SELFPAY ==
[2023-04-18 11:48] VITALS: BMI 32.9
--- NOTE | 2024-02-28 09:14 | US_ITS ---
STUDY: ABDOMINAL ULTRASOUND - RIGHT UPPER QUADRANT; ELASTOGRAPHY REASON FOR VISIT: Female, 58 years old. Fatty infiltration of the liver. TECHNIQUE: Ultrasound evaluation of the right upper quadrant was performed with real-time and static blanco-scale imaging. Point quantification shear wave elastography was performed ([employer]). TECHNICAL QUALITY: Adequate. COMPARISON: Comparison is made with prior study dated August 28, 2023. FINDINGS: Liver: The liver measures 15.8 cm. There is increased echogenicity consistent with fatty infiltration. The bile ducts are within normal limits. There is hepatic color flow. The direction of portal flow is hepatopetal. There is no demonstrated mass lesion. Median liver stiffness measured 10.7 kPa. Gallbladder: Normal distended gallbladder. The gallbladder wall measures 3 mm. There is a negative sonographic Du''s sign. There is no pericholecystic fluid. There are no gallstones. Common Bile Duct (C.B.D.): The common bile duct measures 4 mm. Pancreas: There is normal echogenicity of the visualized pancreas. There is no demonstrated pancreatic mass or cyst. Right Kidney: Normal size of the right kidney. The right kidney measures 12.4 cm x 4.6 x 4.4 cm. Normal renal cortex. The right cortex measures 1.5 cm. There is no demonstrated renal mass or cyst. There is no right hydronephrosis. US/ABD Limited w/ Elastography IMPRESSION: 1. Liver stiffness measures 10.7 kPa compatible with F2-F3 (Mild to moderate liver fibrosis) Metavir score. Electronically Signed: Bhupinder Willis MD at 13:38 EDT ,
== END | disposition home or self-care (01) ==
PROVIDERS: PCP Nurse Practitioner; Referring Provider Student in an Organized Health Care Education/Training Program; Visit Provider Student in an Organized Health Care Education/Training Program
DX: R79.89 Other specified abnormal findings of blood chemistry (principal)
CPT/HCPCS: 76705; 76981

== ENCOUNTER → 2024-03-13 | Outpatient (CLI) | payer MEDICAID, SELFPAY ==
[2023-04-18 11:48] VITALS: BMI 32.9
== END | disposition home or self-care (01) ==
LOC: LABSPEC 15:19
PROVIDERS: PCP Internal Medicine; Referring Provider Otolaryngology; Visit Provider Otolaryngology
DX: J32.9 Chronic sinusitis, unspecified (principal)
CPT/HCPCS: 87070; 87077; 87186; 87205

== ENCOUNTER 2024-04-27 12:02 | Emergency (ER) | payer MEDICAID, SELFPAY ==
[2023-04-18 11:48] VITALS: BMI 32.9
[2024-04-27 12:03] VITALS: BP 145/74; PULSE 91; RESP 16; TEMP 36.3; O2SAT 100; BMI 33.7
--- NOTE | 2024-04-27 12:15 | EX.ED.VIS.EY ---
HPI <YUNI Carson - Last Filed: 04/27/24 12:15> History of Present Illness Chief Complaint: Eye Problem [facility] <YUNI Carson - Last Filed: 04/27/24 12:15> [facility] Medical History COVID (~04/2023) Paroxysmal atrial fibrillation Atrial fibrillation by electrocardiography Dyslipidemia Dyspnea Abnormal bruising Srini's disease SOB (shortness of breath) on exertion Coronary artery disease Abnormal exercise tolerance test Chest pain Palpitations Abnormal finding on EKG HSV-2 infection Cervicalgia Mixed connective tissue disease Interstitial lung disease Raynaud disease Essential hypertension Lupus Graves disease Fibromyalgia Diabetes Home Medications ?Medication ?Instructions ?Recorded ?Last Taken ?Type citalopram 20 mg tablet 20 mg PO DAILY 05/15/20 Unknown History fluticasone propionate 50 2 spray NASAL DAILY 05/15/20 Unknown History mcg/actuation nasal spray,suspension levalbuterol tartrate 45 15 g IH Q4H PRN PRN Shortness Of 05/15/20 Unknown History mcg/actuation aerosol inhaler Breath montelukast 10 mg tablet 10 mg PO DAILY 05/15/20 Unknown History epinephrine 0.3 mg/0.3 mL 0.3 mg IM ONCE 08/04/22 Unknown History injection, auto-injector triamcinolone acetonide 0.1 % 1 applic topical DAILY 08/04/22 Unknown History topical cream lansoprazole 30 mg capsule,delayed 30 mg PO DAILY 08/08/22 Unknown History release metformin 500 mg tablet,extended 1,000 mg PO BID 08/08/22 12/26/22 History release 24 hr nitroglycerin 0.4 mg sublingual 0.4 mg sublingual Q5M PRN 12/27/22 Unknown Rx tablet Cardiac/Chest Pain #15 tabs benzonatate 200 mg capsule 200 mg PO TID PRN cough #20 caps 04/29/23 Unknown Rx isosorbide mononitrate 30 mg 30 mg PO QAM #90 tabs 06/05/23 Unknown Rx tablet,extended release 24 hr pravastatin 20 mg tablet 20 mg PO QHS #90 tabs 07/10/23 Unknown Rx bupropion HCl 150 mg 24 hr tablet, 150 mg PO QAM 02/13/24 Unknown History extended release apixaban 5 mg tablet (Eliquis) 5 mg PO BID #60 tabs 04/07/24 Unknown Rx amoxicillin 875 mg-potassium 1 tab PO BID 04/15/24 Unknown History clavulanate 125 mg tablet aspirin 81 mg tablet,delayed 81 mg PO DAILY #90 tabs 04/15/24 Unknown Rx release (Adult Aspirin Regimen) benzonatate 100 mg capsule 200 mg PO TID PRN cough 04/15/24 Unknown History carvedilol 25 mg tablet 12.5 mg PO .COMPLEX 04/15/24 Unknown History ferrous sulfate 325 mg (65 mg mg PO 04/15/24 Unknown History iron) tablet (FeroSul) hydroxychloroquine 200 mg tablet 200 mg PO BID 04/15/24 Unknown History losartan 50 mg tablet 50 mg PO QHS 04/15/24 Unknown History Allergy/AdvReac Type Severity Reaction Status Date / Time cantaloupe Allergy Angioedema Verified 04/27/24 12:08 Sulfa (Sulfonamide Allergy Hives Verified 04/27/24 12:08 Antibiotics) diltiazem AdvReac Intermediate Hypotension, Verified 04/27/24 12:08 lightheaded and dizzy levofloxacin (From Levaquin) AdvReac Intermediate Hives Verified 04/27/24 12:08 Family History Mother CAD (coronary artery disease) stents Hypertension Vertigo Pacemaker Enlarged heart Father Cancer prostate Sister Sjogrens syndrome Grandmother Heart disease Grandfather Heart disease Uncle Heart disease Enlarged heart Surgical History Stented coronary artery (~12/27/22) Hx of sinus surgery Hx of bilateral cataract extraction Hx of tonsillectomy Hx of hysterectomy Hx of dilation and curettage Social History Smoking Status: Never smoker alcohol intake: current alcohol intake frequency: holidays/special occasions only substance use type: does not use caffeine: Yes Type: coffee Number of servings: 1 EXAM <YUNI Carson - Last Filed: 04/27/24 12:15> Physical Exam Const Vital Signs: 04/27/24 12:03 Temperature 97.4 F L Temperature Source Temporal Pulse Rate 91 Respiratory Rate 16 Blood Pressure 145/74 H Blood Pressure Mean 97 Pulse Ox 100 Oxygen Delivery Method Room Air [facility] <Dr. Jian Nazario, DO - Last Filed: 04/27/24 13:53> [facility] Narrative Medical decision making narrative: HISTORY OF PRESENT ILLNESS: 58-year-old female presents with concern for right eye redness. She states right eye is bloodshot. Notes recent adjustments in her blood pressure meds. No she is taking Plavix and Eliquis. NO trauma to right eye. No visual changes, loss of sensations, slurred speech. Patient also endorses lightheadedness, fatigue for last 2 months. It is typically associate with exertion. No melena or hematochezia noted. No cough, fever, or chills. No leg swelling. No chest pain. No urinary complaints. REVIEW OF SYSTEMS: Pertinent positives: Right eye redness, lightheadedness, dizziness Pertinent negatives: vomiting, dysuria, fever, melena, hematochezia, chest pain, shortness of breath, leg swelling PHYSICAL EXAM: Nursing triage notes reviewed, Vital signs reviewed Constitutional: please see [facility] HENT: MMM, right medial conjunctival hemorrhage. EOMI, visual bentley intact, visual acuity 20/25 bilaterally. Eyes: Pupils equal round and reactive to light, Extraocular muscles intact Neck: No stridor, no JVD, full neck ROM Lungs: Clear to auscultation, No wheezing or rales. No increased work of breathing, no conversational dyspnea, no accessory muscle use, no nasal flaring. No respiratory distress noted Heart: Regular rate and rhythm, No murmurs, No rubs and No gallops, 2+ distal pulses (radial, femoral, posterior tibial) in all extremities Abdomen: Soft, there is no tenderness, rigidity, rebound or guarding, no obvious peritoneal signs, no palpable pulsatile abdominal masses, no auscultated abdominal bruit : No CVAT Extremities: No edema Neuro: No new focal neurological deficits, cranial nerves II through XII intact, 5/5 strength in all present extremities. Intact sensation to light touch in all present extremities, 2+ reflexes bilateral patella tendons. Skin: No rash or lesions noted MEDICAL DECISION MAKING: Chief Complaint: Right eye redness External records reviewed: Reviewed prior cardiology visit Factors affecting care: Atrial fibrillation on Eliquis, CAD, Srini's disease, fibromyalgia, hyperlipidemia, hypertension Social determinants of health: none History obtained from others: family Consults: none MDM Narrative: Patient was initially hemodynamically stable, afebrile and nontoxic-appearing. Visual acuity intact. I considered the following differential diagnosis: Arrythmia, ACS, CHF, Anemia, ICH, intracranial mass, thyroid dysfunction I obtained a broad lab and imaging workup to further elucidate the etiology of patient's complaints. ALL IMAGES (IF OBTAINED) HAVE BEEN PERSONALLY REVIEWED AND INTERPRETED BY MYSELF. EKG normal sinus rhythm, normal axis, normal intervals, QTc 443, no STEMI TSH within normal limits High-sensitivity troponin is negative, no evidence of myocardial ischemia CBC with no leukocytosis, noted severe anemia slightly decreased from baseline, no thrombocytopenia I have personally reviewed the patient's chest x-ray. Chest x-ray is unremarkable for pulmonary edema, pneumothorax, pneumonia or focal cardiopulmonary abnormality. CT scan of the head was negative for ICH or mass The synthesis of the patient's history, physical exam, labs and images suggest a multifactorial etiology of the patient's symptoms. In terms of her eye complaint she suffered from a subconjunctival hemorrhage but has no visual field deficits, no visual field cuts or signs of emergency eye process. This should be self resolved. In terms of continuing anticoagulation antiplatelet therapy I encouraged patient to continue as the risk of not taking his medicines namely stroke and heart attack were more concerning than worsened subconjunctival hemorrhage which is typically self-limiting. In terms of the patient's lightheadedness, fatigue for 2 months is not suspected related to a acute life-limiting etiology. Her labs showed evidence of worsening anemia which could be precipitating her symptoms. She had no complaints of melena or active bleeding. There is no indication for admission at this time but I would like the patient to follow with her primary care physician proximally 1 to 2 weeks for lab re-evaluation and possible further testing to fully evaluate anemia. The patient and/or family, caregivers express understanding. The patient and/or family, caregivers agrees with the plan. Shared decision making: I will have a discussion with the patient and or visitors regarding risk/benefits of further testing or admission. They will be made aware of of the risk/benefits inherent in this decision they will be given the opportunity to voice understanding. Total critical care time today provided was at least 0 minutes. This excludes separately billable procedures. Critical care time (if documented) is secondary to the patient having high probability of clinically significant/life threatening deterioration in the patient's condition which required my urgent intervention. Impression: 1. Right sided subconjunctival hemorrhage 2. Fatigue 3. Acute on chronic anemia Dispo: Discharge home This note was generated with [employer] dictation software. It may contain incorrect words, spelling, and punctuation that were not noted in review of the chart prior to signing. Discharge Plan Triage Chief Complaint: Eye Problem ED Provider: Jian Nazario Dx/Rx/DC Orders Clinical Impression: Anemia Instructions: Anemia, ED Subconjunctival Hemorrhage Prescriptions: No Action epinephrine 0.3 mg/0.3 mL auto-injector 0.3 mg IM ONCE Rx Instructions: as a single dose; may repeat once triamcinolone acetonide 0.1 % cream 1 applic topical DAILY isosorbide mononitrate 30 mg tablet extended release 24 hr 30 mg PO QAM Qty: 90 3RF losartan 50 mg tablet 50 mg PO QHS benzonatate 100 mg capsule 200 mg PO TID PRN (Reason: cough) ferrous sulfate [FeroSul] 325 mg (65 mg iron) tablet PO hydroxychloroquine 200 mg tablet 200 mg PO BID amoxicillin-pot clavulanate 875-125 mg tablet 1 tab PO BID aspirin [Adult Aspirin Regimen] 81 mg tablet,delayed release (DR/EC) 81 mg PO DAILY Qty: 90 3RF carvedilol 25 mg tablet 12.5 mg PO .COMPLEX Rx Instructions: 12.5 mg orally in the AM and *25mg (1 tab) at HS* bupropion HCl 150 mg tablet extended release 24 hr 150 mg PO QAM fluticasone propionate 1 SPRAY spray,suspension 2 spray NASAL DAILY citalopram 20 MG tablet 20 mg PO DAILY montelukast 10 MG tablet 10 mg PO DAILY levalbuterol tartrate 15 GM HFA aerosol inhaler 15 g IH Q4H PRN PRN (Reason: Shortness Of Breath) lansoprazole 30 mg capsule,delayed release(DR/EC) 30 mg PO DAILY metformin 500 mg tablet extended release 24 hr 1,000 mg PO BID nitroglycerin 0.4 mg Tablet, Sublingual 0.4 mg sublingual Q5M PRN (Reason: Cardiac/Chest Pain) Qty: 15 6RF benzonatate 200 mg capsule 200 mg PO TID PRN (Reason: cough) Qty: 20 0RF pravastatin 20 mg tablet 20 mg PO QHS Qty: 90 4RF Eliquis 5 mg tablet 5 mg PO BID Qty: 60 11RF Primary Care Provider: Opal Bernal Referrals: Opal Bernal MD [Primary Care Provider] - Activity Restrictions/Additional Instructions: Thank you for trusting us with your care today! Your labs and images were overall reassuring. They showed no signs of an acute life-threatening illness. Your labs did show progressive anemia. With your blood counts being slightly lower than your baseline. This can cause fatigue, dizziness and lightheadedness. This will require close lab monitoring as an outpatient. In terms of your subconjunctival hemorrhage just resolved spontaneously. While your blood thinners and antiplatelet medicines (Eliquis and Plavix/aspirin) can increase risk of bleeding I do not feel the risk of stroke or heart attack by discontinuing medication is indicated. Please take Tylenol (2 pills, 650 mg) every 6 hours as needed for pain and fever control. Please return to the emergency department if your symptoms change or worsen. Please follow with your primary care physician for further outpatient evaluation and management. Print Language: Armenian Disposition Disposition: Home, Self Care
[2024-04-27 12:16] VITALS: BP 146/77; PULSE 78
--- NOTE | 2024-04-27 12:47 | EKG12_ITS ---
Test Reason : DIZZY Blood Pressure : */* mmHG Vent. Rate : 81 BPM Atrial Rate : 81 BPM P-R Int : 152 ms QRS Dur : 72 ms QT Int : 382 ms P-R-T Axes : 17 10 41 degrees QTcB Int : 443 ms Normal sinus rhythm Normal ECG Confirmed by LINCOLN KOENIG, JASMYNE ([id number]), associate editor NORMA TORRES ([id number]) on 04/28/2024 8:26:03 AM Referred By: Confirmed By: JASMYNE STARK MD
--- NOTE | 2024-04-27 12:47 | CT_ITS ---
EXAM: CT HEAD WITHOUT INTRAVENOUS CONTRAST CLINICAL INDICATION: headache TECHNIQUE: Multiple axial images were obtained of the head without intravenous contrast. This CT exam was performed using one or more of the following dose reduction techniques: automated exposure control, adjustment of the mA and/or kV according to patient size, and/or use of iterative reconstruction technique. COMPARISON: 01/07/2020 FINDINGS: BRAIN AND EXTRA-AXIAL SPACES: There is non-specific periventricular hypoattenuation which is most commonly related to chronic microvascular ischemic disease in a patient of this age. There is no mass, mass-effect, or shift of the midline structures. No evidence of acute infarct or acute intracranial hemorrhage. There is no evidence of pathologic extra-axial fluid. There is no hydrocephalus. Patent basal cisterns. BONES/JOINTS: No significant abnormality. No discrete lytic or blastic abnormalities. VASCULATURE: Arteriosclerosis. SINUSES: Status post functional endoscopic sinus surgery with mild diffuse mucosal thickening in the paranasal sinuses. MASTOID AIR CELLS: No significant effusion. ORBITS: Bilateral ocular lens extraction presumptively for the treatment of cataracts. Otherwise, no acute orbital pathology. CT/Brain/Head without Contrast IMPRESSION: 1. Chronic ischemic changes. No evidence of acute intracranial pathology. 2. Status post functional endoscopic sinus surgery with mild diffuse mucosal thickening in the paranasal sinuses. Electronically Signed: Carmine Ponce DO at 13:18 EST ,
--- NOTE | 2024-04-27 12:55 | RAD_ITS ---
EXAM: XR CHEST, 1 VIEW CLINICAL INDICATION: dizziness TECHNIQUE: Frontal view of the chest. COMPARISON: CTA chest, 10/22/2023 FINDINGS: LUNGS AND PLEURAL SPACES: No significant abnormality. No consolidation or edema. No pneumothorax. No effusion. HEART: No significant abnormality. Cardiac silhouette not enlarged. MEDIASTINUM: Central airways and mediastinal contour are unremarkable. BONES/JOINTS: No significant abnormality. No acute fracture. SOFT TISSUES: No significant abnormality. RAD/Chest 1 View (Portable) IMPRESSION: No radiographic evidence of acute cardiopulmonary disease. Electronically Signed: Carmine Ponce DO at 13:26 EST ,
[2024-04-27 12:57] LABS: Absolute Lymphocyte Count 1.13 X10^3/uL (0.83-4.51); Absolute Neutrophil Count 2.5 X10^3/uL (2.0-7.7); Basophil# 0.01 X10^3/uL; Basophil% 0.2 % (0-1); Eosinophil# 0.14 X10^3/uL; Eosinophils% 3.2 % (0-5); Hematocrit 24.6 % (37-47); Hemoglobin 7.5 g/dL (12.0-15.0); Lymphocyte # 1.13 X10^3/ul (0.83-4.51); Mean Corp Hgb Conc 30.5 g/dL (32-36); Mean Corpuscular Hgb 30.1 pg (27.0-32.0); Mean Corpuscular Volume 98.8 fL (81-99); Mean Platelet Vol. 11.7 fl (6.2-12.0); Monocyte% 11.5 % (0-10); NRBC Flagged by Analyzer 0 % (0-5); Neutrophil # 2.54 X10^3/uL (2.7-7.7); Neutrophil % 58.6 % (47-70); Platelet Count 164 K/mm3 (150-450); RBC Distribution Width CV 14.3 % (11.6-14.6); RBC Distribution Width SD 50.8 fl (35.1-43.9); Red Blood Count 2.49 M/mm3 (4.2-5.4); White Blood Count 4.3 K/mm3 (4.4-11.0)
[2024-04-27 13:22] LABS: ALB/GLOB Ratio 0.9 RATIO (0.9-2.4); AST(SGOT) 39 U/L (15-37); Alanine Aminotransfer ALT/SGPT 52 U/L (13-56); Albumin, Serum 3.1 g/dL (3.2-5.0); Alkaline Phosphatase 84 U/L (45-117); Anion Gap 5 (5-15); BUN 21 mg/dL (7-18); Calcium,Total 8.4 mg/dL (8.5-10.1); Chloride 104 mmol/L (98-107); Creatinine, Serum 0.54 mg/dL (0.55-1.02); EST Glomerular Filtration Rate 123 mL/min (>60); Est Glom Filt Rate - Afr Amer 149 mL/min (>60); Estimated Creatinine Clearance 118.45 ml/min; Globulin 3.3 g/dL (2.2-4.2); Glucose 117 mg/dL (74-106); Potassium 4.8 mmol/L (3.5-5.1); Protein, Total 6.4 g/dL (6.4-8.2); Sodium Level 135 mmol/L (136-145); Thyroid Stim Hormone (TSH) 0.721 uIU/mL (0.358-3.740); Troponin-I HS 3 pg/mL (3.0-54.0)
[2024-04-27 13:54] VITALS: BP 124/66; PULSE 69; RESP 18; TEMP 36.6; O2SAT 99
== END 2024-04-27 14:07 | disposition home or self-care (01) ==
PROVIDERS: Emergency Provider Emergency Medicine; PCP Internal Medicine; Visit Provider Emergency Medicine
DX: H11.31 Conjunctival hemorrhage, right eye (principal); I48.0 Paroxysmal atrial fibrillation; E11.9 Type 2 diabetes mellitus without complications; D64.9 Anemia, unspecified; I25.10 Atherosclerotic heart disease of native coronary artery without angina pectoris; E78.5 Hyperlipidemia, unspecified; I10 Essential (primary) hypertension; R53.83 Other fatigue; Z79.899 Other long term (current) drug therapy; Z79.84 Long term (current) use of oral hypoglycemic drugs; Z79.01 Long term (current) use of anticoagulants; Z79.82 Long term (current) use of aspirin; Z98.41 Cataract extraction status, right eye; Z98.42 Cataract extraction status, left eye; Z90.710 Acquired absence of both cervix and uterus; Z79.02 Long term (current) use of antithrombotics/antiplatelets
CPT/HCPCS: 70450; 71045; 80053; 84443; 84484; 85025; 93005; 99285; A4216

== ENCOUNTER 2024-05-06 07:24 | Outpatient (RCR) | payer MEDICAID, SELFPAY ==
[2023-04-18 11:48] VITALS: BMI 32.9
--- NOTE | 2024-05-06 14:17 | HP.FCE ---
Task Lift Floor (Occasional 1-33% of Day): 30 Floor (Frequent 34-66% of Day): 15 Floor (Constant 67-100% of Day): 6.31 Floor PDL: Light Knee (Occasional 1-33% of Day): 35 Knee (Frequent 34-66% of Day): 17.5 Knee (Constant 67-100% of Day): 7.36 Knee PDL: Light-Medium Waist (Occasional 1-33% of Day): 35 Waist (Frequent 34-66% of Day): 17.5 Waist (Constant 67-100% of Day): 7.36 Waist PDL: Light-Medium Shoulder (Occasional 1-33% of Day): 25 Shoulder (Frequent 34-66% of Day): 12.5 Shoulder (Constant 67-100% of Day): 5.26 Shoulder PDL: Light Overhead (Occasional 1-33% of Day): 20 Overhead (Frequent 34-66% of Day): 10 Overhead (Constant 67-100% of Day): 4.21 Overhead PDL: Light Comments: pt light in floor, shoulder and overhead lift. pt is light-medium in waist and knee lift Work Activity/Posture Bending: Frequent Ability (34-66% of day) Squatting: Frequent Ability (34-66% of day) Kneeling: No Ablility (0% of day) Reaching out: Frequent Ability (34-66% of day) Reaching up: Frequent Ability (34-66% of day) Sitting: Frequent Ability (34-66% of day) Walking: Occasional Ability (1-33% of day) Standing: Frequent Ability (34-66% of day) Comments: see details section below-- fluctuates Reference Reference: Duration Sedentary Sedentary Light Light Light Medium Medium Medium Heavy Very Heavy Heavy Occasional (0-33% of day) Frequent (34-66% of day) Constant (67-100% of day) 10 # Negligible Negligible 15 # 8 # Negligible 20 # 10# Negli. 35 # 18 # 7 # 50 # 25 # 10 # 75 # 100 # >100 # 38 # 50 # >50 # 15 # 20 # >20 # Patient Information Height: 5 ft 3 in Weight:: 86.183 kg Hand Dominance: R Medical History Medical History Including Restrictions: This pt arrives with dx of interstitial lung disease, graves disease, type 2 DM, connective tissue disease. Per pt report pt with heart surgery december of 2022 placement of 3 stents. pt with COVID in April of 2023 damaging lungs further. R am shoulder tear with shoulder replacement in 2019. pt saw PT after this. Pt with family complications mother in hospital caring for her mother unable to come home and ended up passing away May 17 2023. Pt currently reporting unable to get her energy back after taking a few months off after mother passing. Pt with autoimmune diseases including lupus causing pt to miss multiple days of work prior to this. Per pt in September 2023 was dx with DDD. pt does report seeing chiropractor approx 5 years ago that assisted in back. Cardio physical therapy Mar- Apr 2023. pt has also has PT for back as well as neck in the past. does not see pain management currently. pt reports she also struggles with her memory as well as completion of multi step tasks. is on anxiety medication. Diagnoses Diagnoses: Interstitial lung disease (J84.9) graves disease (E05.00) type 2 DM (E11.9) mixed connective tissue disease (M35.1) Symptoms Symptoms: chronic fatigue lower back pain when on feet for prolonged periods of time SOB with sustained activity decreased overall aerobic capacity heachache that comes and goes with ringing in ears fluctuating BP usually high then will drop swelling in BLEs when on feet all day Pain Pain: currently no pain other than headache rating it at 4/10 lower back pain after working at 7-8/10 pain fluctuates from annoying pain to trigger point pain pain does not normally run down legs Klarissa Pain Questionnaire Work History Work History: 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 Does have washer and dryer downstairs level with average flight of steps to get down with B hand rails, goes down about once a week. Pt bathroom with t/s combo no bars no seat and standard commode. Pt is I in ADL tasks does receive assistance for IADL tasks occ assist from sister however sister has her own medical complications as well. Pt drives. Pt is able to do her own grocery shopping. Pt does not use any AD as means of mobility. Physical Examination Physical Examination: resting seated at baseline HR 80 bpm 02 98% ROM: Bilateral Upper Extremity WFL Bilateral Lower Extremity WFL Strength: Upper Extremity: L shoulder flexion 12# R shoulder flexion 11.8# L bicep 24.4# R bicep 23.4# L tricep 22.1# R tricep 24.9# L ER 17.4# R ER 17# Lower Extremity: L hip flexor 22.5# R hip flexor 20.1# L quad 25.2# R quad 20.3# L hamstring 24.4# R hamstring 23.2# measurements with fet 2 peak force Right Supervisor Polishing Strength Average: 40.00 Right Supervisor Polishing Strength Percentile: 3rd percentile Left Supervisor Polishing Strength Average: 33.33 Left Supervisor Polishing Strength Percentile: 2nd percentile Right Lateral Pinch Average: 7.66 Right Lateral Pinch Percentile: <10th percentile Left Lateral Pinch Average: 3.00 Left Lateral Pinch Percentile: <10th percentile Right Tripod Pinch Average: 7.00 Right Tripod Pinch Percentile: 10th percentile Left Tripod Pinch Average: 5.00 Left Tripod Pinch Percentile: <10th percentile Sensation: reports arthritic pain in hands does have Raynaud's when too cold semmes adair monofilament sensory testing L hand all distal digits at 2.44 considered normal R hand digits 3-5 2.44 considered normal and D1-2 was 3.61 considered diminished light touch no reports of numbness in feet Fine Motor: 9 hole peg assessment: L hand trial 1: 26 sec L hand trial 2: 22 sec L hand trial 3: 19 sec L average: 22.3 sec indicating pt is in 50th percentile for age and gender R hand trial 1: 19 sec R hand trial 2: 19 sec R hand trial 3: 19 sec R hand average: 19 sec indicating pt is in 75th percentile for age and gender Balance: standing forward reach 13 indicating pt is not at increased risk for falls Non Material Handling Activities Bending: bending trial of 3: 07/07 10 at own pace : 10/10 -- seated RB after this 10x fast: 10/10 -- needs seated RB after this HR 90 bpm and 02 98% no reports of pain after this stance with wide WAI uses desk for unilateral support with 10x fast reps Squatting: squatting: trial of 3: 07/07 10 at own pace: 02/13 -- seated RB after this 10x fast: 02/13-- seated RB after this HR 98 bpm and 02 99% uses unilateral support of desk for completion of all reps wide stance comes to mcc with squat does not report any increase of pain Kneeling: Kneeling: trial of : 06/09 -- unable to come down to knee with last trial with support of desk 10 at own pafce: 0 10x fast 0 Reaching out/up: reaching out: trial of : 07/07 10 at own pace: 02/13 10x fast: 02/13 HR 99 bom and 02 92% starting to feel muscle fatigue back of R shoulder reaching up: trial of : 07/07 10 at own pace: 02/13 10x fast: 02/13 HR 87 bpm and 02 99% seated RB after this Walking: walks x2 laps of therapy gym total of 844 feet before sitting for rest break HR 102 bpm and 02 98% seated RB after completion no need for supports and no AD able to keep consistent pace throughout task Standing: per pt able to do approx 4 hours on a good day pt is able to stand during FCE for approx 12 min before sitting for RB Sitting: per pt would be able to sit for a few hours before needing to get up and move around pt is able to sit for 35 min during FCE before standing -- does not adjust position able to maintain upright position in chair with feet on floor Climbing Stairs: able to ascend and descent 10 steps ascending unilateral support and descending BUE support of grab bar HR 103 bpm and 02 96% alternates reciprocal pattern of feet during task Dynamic Occasional Lifting Capacity Floor Lift: Floor Lift: box (15#) + 15= total of 30# HR 103 bpm and 02 99% denies pain after task however reports being light headed seated RB after completion stands with wide stance and keeps load closer to body for completion Knee Lift: Knee lift: Box (15#)+ 20#= total of 35# HR 101 bpm and 02 99% seated RB after completion completes with wide stance and keeps load close to body Waist Lift: waist lift: box (15#) + 20#= total of 35# HR 82 bpm and 02 99% side step to L and back no RB needed keeps load close to body Shoulder Lift: shoulder lift: box (15#)+ 10#= total of 25# keeps load close to body no RB needed no increase in pain Overhead Lift: overhead lift: box (15#)+ 5#= total of 20# HR 88 bpm and 02 908% arches back to perform no seated RB needed no report of increased pain Carrying: carry: Box (15#)+ 10#= total of 25# HR 119 bpm and 02 99% seated RB after completion able to walk to [employer] cabinet and back to return to counter top no LOB no abnormality of gait during task no report of increased pain approx 52 feet total Comments: push/ pull 90# plus slide approx 52 feet total
== END 2024-05-06 19:00 | disposition home or self-care (01) ==
LOC: OT 07:24
PROVIDERS: PCP Internal Medicine; Referring Provider Nurse Practitioner; Visit Provider Nurse Practitioner
DX: J84.9 Interstitial pulmonary disease, unspecified (principal); E05.00 Thyrotoxicosis with diffuse goiter without thyrotoxic crisis or storm; E11.9 Type 2 diabetes mellitus without complications; M35.1 Other overlap syndromes
CPT/HCPCS: 97750

== ENCOUNTER 2024-05-10 15:54 | Emergency (ER) | payer MEDICAID, SELFPAY ==
[2023-04-18 11:48] VITALS: BMI 32.9
[2024-05-10] VITALS (23 sets, daily range): BP systolic 116–174; BP diastolic 67–93; PULSE 75–98; RESP 16–26; TEMP 36.6–37.1; O2SAT 96–99; BMI 33.4
--- NOTE | 2024-05-10 16:45 | CT_ITS ---
STUDY: CT BRAIN WITHOUT CONTRAST REASON FOR EXAM: Female, 58 years old. dizziness RADIATION DOSAGE (If Supplied By Facility): CTDIvol = ( 44.99 ) mGy, DLP = ( 762.36 ) mGycm TECHNIQUE: Transaxial CT imaging of the brain was performed without administration of intravenous contrast material. Individualized dose optimization techniques were used for this CT. COMPARISON: No relevant priors. FINDINGS: Normal soft tissue structures. Normal calvarium. Normal size ventricles and extra-axial spaces for the patient''s age. Normal white matter tracts of the cerebral hemispheres. Normal basal ganglia and thalami. Normal brainstem. Normal cerebellum. There is no intracranial hemorrhage. There are no findings of an acute ischemic infarction. Mild mucosal thickening of the paranasal sinuses. Status post sinus surgery. CT/Brain/Head without Contrast IMPRESSION: No acute intracranial pathology of the brain. Electronically Signed: Toi Rothman DO at 18:39 EST ,
--- NOTE | 2024-05-10 16:46 | EKG12_ITS ---
Test Reason : GENERAL Blood Pressure : */* mmHG Vent. Rate : 74 BPM Atrial Rate : 74 BPM P-R Int : 172 ms QRS Dur : 74 ms QT Int : 398 ms P-R-T Axes : 27 1 32 degrees QTcB Int : 441 ms Normal sinus rhythm Normal ECG Confirmed by LINCOLN KOENIG, JASMYNE ([id number]), editorial director NORMA TORRES ([id number]) on 05/12/2024 7:57:22 AM Referred By: Confirmed By: JASMYNE STARK MD
--- NOTE | 2024-05-10 16:47 | EX.ED.DYSGE1 ---
HPI History of Present Illness Chief Complaint: General Illness Informant: patient and family (sister) Narrative Narrative: 58-year-old female presents for dizziness. She states it feels like she is lightheaded and things are moving. She states she gets it when she stands up often, sometimes gets it when she sits down. She has not triggered anything with moving her head or changing positions otherwise that she can think of. No associated nausea or vomiting. This has been occurring for the past 4 days prominently, episodes last 30 seconds to a minute, but then she also states she is having episodes of walking crooked like she is drunk, usually associated with the dizziness and walking normally whenever she is standing without dizziness. She then says that she has been having some of this for maybe up to the past 5 weeks intermittently. She states she also has had some tinnitus more in her left ear for a while but it has not been acutely different in the past 4 days. No headaches. Sometimes she gets blurry vision when she is really feeling like she is going to faint, not every episode is near syncopal some of them are. She has not had any syncopal episodes or chest discomfort or dyspnea associated with this but she states yesterday she started getting what feels like postnasal drip, mild sore throat, and a mild cough. No fevers or chills. [facility] Medical History COVID (~04/2023) Paroxysmal atrial fibrillation Atrial fibrillation by electrocardiography Dyslipidemia Dyspnea Abnormal bruising Srini's disease SOB (shortness of breath) on exertion Coronary artery disease Abnormal exercise tolerance test Chest pain Palpitations Abnormal finding on EKG HSV-2 infection Cervicalgia Mixed connective tissue disease Interstitial lung disease Raynaud disease Essential hypertension Lupus Graves disease Fibromyalgia Diabetes Home Medications ?Medication ?Instructions ?Recorded ?Last Taken ?Type citalopram 20 mg tablet 20 mg PO DAILY 05/15/20 Unknown History fluticasone propionate 50 2 spray NASAL DAILY 05/15/20 Unknown History mcg/actuation nasal spray,suspension levalbuterol tartrate 45 15 g IH Q4H PRN PRN Shortness Of 05/15/20 Unknown History mcg/actuation aerosol inhaler Breath montelukast 10 mg tablet 10 mg PO DAILY 05/15/20 Unknown History epinephrine 0.3 mg/0.3 mL 0.3 mg IM ONCE 08/04/22 Unknown History injection, auto-injector triamcinolone acetonide 0.1 % 1 applic topical DAILY 08/04/22 Unknown History topical cream lansoprazole 30 mg capsule,delayed 30 mg PO DAILY 08/08/22 Unknown History release metformin 500 mg tablet,extended 1,000 mg PO BID 08/08/22 12/26/22 History release 24 hr nitroglycerin 0.4 mg sublingual 0.4 mg sublingual Q5M PRN 12/27/22 Unknown Rx tablet Cardiac/Chest Pain #15 tabs benzonatate 200 mg capsule 200 mg PO TID PRN cough #20 caps 04/29/23 Unknown Rx isosorbide mononitrate 30 mg 30 mg PO QAM #90 tabs 06/05/23 Unknown Rx tablet,extended release 24 hr pravastatin 20 mg tablet 20 mg PO QHS #90 tabs 07/10/23 Unknown Rx bupropion HCl 150 mg 24 hr tablet, 150 mg PO QAM 02/13/24 Unknown History extended release amoxicillin 875 mg-potassium 1 tab PO BID 04/15/24 Unknown History clavulanate 125 mg tablet aspirin 81 mg tablet,delayed 81 mg PO DAILY #90 tabs 04/15/24 Unknown Rx release (Adult Aspirin Regimen) benzonatate 100 mg capsule 200 mg PO TID PRN cough 04/15/24 Unknown History carvedilol 25 mg tablet 12.5 mg PO .COMPLEX 04/15/24 Unknown History ferrous sulfate 325 mg (65 mg mg PO 04/15/24 Unknown History iron) tablet (FeroSul) hydroxychloroquine 200 mg tablet 200 mg PO BID 04/15/24 Unknown History losartan 50 mg tablet 50 mg PO BID this is dose increase 04/29/24 Unknown Rx #180 tabs Allergy/AdvReac Type Severity Reaction Status Date / Time cantaloupe Allergy Angioedema Verified 05/10/24 15:55 Sulfa (Sulfonamide Allergy Hives Verified 05/10/24 15:55 Antibiotics) diltiazem AdvReac Intermediate Hypotension, Verified 05/10/24 15:55 lightheaded and dizzy levofloxacin (From Levaquin) AdvReac Intermediate Hives Verified 05/10/24 15:55 Family History Mother CAD (coronary artery disease) stents Hypertension Vertigo Pacemaker Enlarged heart Father Cancer prostate Sister Sjogrens syndrome Grandmother Heart disease Grandfather Heart disease Uncle Heart disease Enlarged heart Surgical History Stented coronary artery (~12/27/22) Hx of sinus surgery Hx of bilateral cataract extraction Hx of tonsillectomy Hx of hysterectomy Hx of dilation and curettage Social History Smoking Status: Never smoker alcohol intake: current alcohol intake frequency: holidays/special occasions only substance use type: does not use caffeine: Yes Type: coffee Number of servings: 1 ROS ROS ED Constitutional Constitutional ED: Denies chills or fever(s) Eyes Eyes: Reports blurry vision bilateral (When feeling dizzy see HPI); Denies change in vision or diplopia ENT ENT ED: Reports as per HPI, dizziness, post nasal drip, rhinorrhea, sore throat and tinnitus; Denies ear pain Cardiovascular Cardiovascular: Reports as per HPI, lightheadedness and orthostatic symptoms; Denies chest pain, palpitations or syncope Respiratory/Chest Respiratory/Chest: Denies cough or dyspnea Gastrointestinal Gastrointestinal: Denies abdominal pain, diarrhea, nausea or vomiting Genitourinary Genitourinary ED: Denies dysuria or hematuria Musculoskeletal Musculoskeletal: Denies back pain or neck pain Integumentary Denies abscess or rash Neurologic Neurologic: Denies headache(s), paresthesias or weakness Psychiatric Psychiatric: Denies anxiety or suicidal thoughts EXAM Physical Exam Const Vital Signs: 05/10/24 15:55 05/10/24 16:34 05/10/24 17:09 Temperature 98.0 F Temperature Source Temporal Pulse Rate 98 Pulse Rate [Lying] 75 Pulse Rate [Sitting (for 1 minute prior to obtaining)] 77 Pulse Rate [Standing (for 1 minute prior to obtaining)] 84 Respiratory Rate 16 Respiratory Effort Normal Non-Labored Respiratory Pattern Normal Blood Pressure 116/67 Blood Pressure [Lying] 154/76 H Blood Pressure [Sitting (for 1 minute prior to obtaining)] 152/75 H Blood Pressure [Standing (for 1 minute prior to obtaining)] 136/74 H Blood Pressure Mean 83 Blood Pressure Mean [Lying] 102 Blood Pressure Mean [Sitting (for 1 minute prior to obtaining)] 100 Blood Pressure Mean [Standing (for 1 minute prior to obtaining)] 94 Pulse Ox 98 Oxygen Delivery Method Room Air 05/10/24 17:55 05/10/24 19:00 05/10/24 21:00 Temperature Temperature Source Pulse Rate 76 77 78 Pulse Rate [Lying] Pulse Rate [Sitting (for 1 minute prior to obtaining)] Pulse Rate [Standing (for 1 minute prior to obtaining)] Respiratory Rate 19 H 26 H 22 H Respiratory Effort Respiratory Pattern Blood Pressure 162/71 H 165/79 H 155/79 H Blood Pressure [Lying] Blood Pressure [Sitting (for 1 minute prior to obtaining)] Blood Pressure [Standing (for 1 minute prior to obtaining)] Blood Pressure Mean 101 104 104 Blood Pressure Mean [Lying] Blood Pressure Mean [Sitting (for 1 minute prior to obtaining)] Blood Pressure Mean [Standing (for 1 minute prior to obtaining)] Pulse Ox 99 99 Oxygen Delivery Method Room Air Room Air Positive well nourished and well developed General Appearance ED: well developed and NAD HEENT Reports TM's clear and moist mucous membranes normocephalic and atraumatic Tympanic Membrane ED: Yes TM's clear Eyes PERRL and EOMs intact bilaterally Eyes Narrative: No pathologic nystagmus Neck full ROM, no lymphadenopathy and supple Resp normal respiratory effort and clear to auscultation bilaterally Cardio regular rate, regular rhythm and no murmurs GI non-tender and non-distended Auscultation: normoactive bowel sounds Palpation: soft Back/Spine no CVA tenderness General Back: other FROM Extremity normal to inspection General Extremety ED: Negative for edema, pulses abnormal or tenderness General Extremity: Negative for edema or pulses abnormal Neuro oriented x3, CN's II-XII intact bilaterally and no sensory deficits noted Neuro Narrative: Normal [id number] and [id number] bilaterally. Negative Gilbert-Hallpike. Sensorium / Orientation: awake and alert Motor Exam: strength 5/5 throughout Psych mental status grossly normal Skin no rashes or lesions noted and no wounds MDM MDM MDM Narrative Medical decision making narrative: Patient is on clopidogrel for stents and anticoagulated on a apixaban because of a history of paroxysmal atrial fibrillation. Initially it sounded more like she was having orthostatic symptoms but then she tells me that she is ataxic when walking when she has this and feeling like things are spinning. When asked if it is spinning or lightheadedness, she states it is both simultaneously. Very difficult to assess what kind of dizziness this patient is having, so obtaining orthostatics, CT of the brain send has been going on for quite a while although the symptoms are episodic more consistent with peripheral vertigo rather than central, as well as labs, COVID swab, and chest x-ray. Her vital signs are normal. Turns out her workup shows that she is very anemic at 6.4. The rest of her workup is normal; her EKG shows sinus rhythm, I reviewed her CT images and result which I agree with, it is normal. Her two-view chest x-ray is normal on my interpretation. Orthostatics performed and they are normal/negative, before she received a unit of blood. It was difficult to discern the kind of dizziness she was having but now it is clear this was more orthostatic. I sent a Hemoccult, it is positive. She states she has been having intermittent black stools for the past 6 months although she has been on iron, and at this point she discloses that she is scheduled for an EGD in 4 days from now because of her anemia after seeing Dr. Daley's PA in the office, she was referred there from a clinical quality assurance associate in [place]. I consented the patient for a unit of blood. I discussed with Dr. Daley. Since she is scheduled for an EGD in 4 days and is stable doing well, and not in A-fib, he agrees with discontinuing the apixaban, having her continue the lansoprazole, and be discharged home with a limited exertion after the blood transfusion to follow-up for her planned EGD in 4 days. Patient is comfortable with that plan. It also should be noted that the patient states she used to be symptomatic with her paroxysmal atrial fibrillation until she had an ablation this past September and she has had no episodes since, further supporting the benefit/risk ratio of discontinuing her Eliquis for now. History & Record Review Additional record(s) reviewed:: Prior outpatient record (Outpatient GI note) Lab Data Attestation: I reviewed the patient's lab results. Labs: Laboratory Results - last 24 hr 05/10/24 05/10/24 17:20 20:36 WBC 4.1 L RBC 2.12 L Hgb 6.4 L Hct 21.4 L MCV 100.9 H MCH 30.2 MCHC 29.9 L RDW Std Deviation 59.7 H RDW Coeff of Ted 17.2 H Plt Count 161 MPV 11.0 Immature Gran % (Auto) 0.500 Neut % (Auto) 54.9 Lymph % (Auto) 32.8 Castro % (Auto) 9.1 Eos % (Auto) 2.5 Baso % (Auto) 0.2 Absolute Neuts (auto) 2.2 Absolute Lymphs (auto) 1.34 Nucleated RBC % 0 Sodium 133 L Potassium 4.5 Chloride 103 Carbon Dioxide 25.0 Anion Gap 5 BUN 16 Creatinine 0.54 L Estim Creat Clear Calc 117.77 Est GFR (MDRD) Af Amer 148 Est GFR (MDRD) Non-Af 122 BUN/Creatinine Ratio 29.5 H Glucose 84 Calcium 8.3 L Blood Type A POSITIVE Antibody Screen NEGATIVE Crossmatch See Detail Radiography Diagnostic Testing: Clinical Impression(s) from Imaging Studies Brain CT 05/10/24 16:45 IMPRESSION: No acute intracranial pathology of the brain. Electronically Signed: Toi Rothman DO at 18:39 EST , Chest X-Ray 05/10/24 17:30 IMPRESSION: No radiographic evidence of acute cardiopulmonary disease. Electronically Signed: Toi Rothman DO at 19:04 EST , Rhythm Strip Rhythm Strip: Sinus Rhythm Rate: 75 Ectopy: None EKG Initial EKG: Attestation: I personally reviewed and interpreted this EKG as follows: Interpretation: Sinus Rhythm and No Acute Injury Pattern Comments: Nml axis & intervals; nml EKG Management Discussion w/another healthcare provider: Cargo Operations Agent (GI doctor friend) Discharge Plan Triage Chief Complaint: General Illness ED Provider: Alfredo Sr Dx/Rx/DC Orders Clinical Impression: Acute on chronic blood loss anemia, Occult GI bleeding, Orthostatic dizziness Instructions: GI Bleeding Causes and Tests, Upper GI Endoscopy Prescriptions: Continued epinephrine 0.3 mg/0.3 mL auto-injector 0.3 mg IM ONCE Rx Instructions: as a single dose; may repeat once triamcinolone acetonide 0.1 % cream 1 applic topical DAILY isosorbide mononitrate 30 mg tablet extended release 24 hr 30 mg PO QAM Qty: 90 3RF benzonatate 100 mg capsule 200 mg PO TID PRN (Reason: cough) ferrous sulfate [FeroSul] 325 mg (65 mg iron) tablet PO hydroxychloroquine 200 mg tablet 200 mg PO BID amoxicillin-pot clavulanate 875-125 mg tablet 1 tab PO BID aspirin [Adult Aspirin Regimen] 81 mg tablet,delayed release (DR/EC) 81 mg PO DAILY Qty: 90 3RF carvedilol 25 mg tablet 12.5 mg PO .COMPLEX Rx Instructions: 12.5 mg orally in the AM and *25mg (1 tab) at HS* bupropion HCl 150 mg tablet extended release 24 hr 150 mg PO QAM fluticasone propionate 1 SPRAY spray,suspension 2 spray NASAL DAILY citalopram 20 MG tablet 20 mg PO DAILY montelukast 10 MG tablet 10 mg PO DAILY levalbuterol tartrate 15 GM HFA aerosol inhaler 15 g IH Q4H PRN PRN (Reason: Shortness Of Breath) lansoprazole 30 mg capsule,delayed release(DR/EC) 30 mg PO DAILY metformin 500 mg tablet extended release 24 hr 1,000 mg PO BID nitroglycerin 0.4 mg Tablet, Sublingual 0.4 mg sublingual Q5M PRN (Reason: Cardiac/Chest Pain) Qty: 15 6RF benzonatate 200 mg capsule 200 mg PO TID PRN (Reason: cough) Qty: 20 0RF pravastatin 20 mg tablet 20 mg PO QHS Qty: 90 4RF losartan 50 mg tablet 50 mg PO BID Qty: 180 3RF Discontinued Eliquis 5 mg tablet 5 mg PO BID Qty: 60 11RF Primary Care Provider: Opal Bernal Referrals: Opal Bernal MD [Primary Care Provider] - Mike Daley DO [[facility] Staff - Active Staff] - Keep Matthias appointment Print Language: Pakistani Disposition Disposition: Home, Self Care
[2024-05-10 17:29] LABS: Absolute Lymphocyte Count 1.34 X10^3/uL (0.83-4.51); Absolute Neutrophil Count 2.2 X10^3/uL (2.0-7.7); Basophil# 0.01 X10^3/uL; Basophil% 0.2 % (0-1); Eosinophils% 2.5 % (0-5); Hematocrit 21.4 % (37-47); Hemoglobin 6.4 g/dL (12.0-15.0); Lymphocyte # 1.34 X10^3/ul (0.83-4.51); Lymphocyte % 32.8 % (19-41); Mean Corp Hgb Conc 29.9 g/dL (32-36); Mean Corpuscular Hgb 30.2 pg (27.0-32.0); Mean Corpuscular Volume 100.9 fL (81-99); Monocyte# 0.37 X10^3/uL; Monocyte% 9.1 % (0-10); NRBC Flagged by Analyzer 0 % (0-5); Neutrophil # 2.24 X10^3/uL (2.7-7.7); Neutrophil % 54.9 % (47-70); Platelet Count 161 K/mm3 (150-450); RBC Distribution Width CV 17.2 % (11.6-14.6); RBC Distribution Width SD 59.7 fl (35.1-43.9); Red Blood Count 2.12 M/mm3 (4.2-5.4); White Blood Count 4.1 K/mm3 (4.4-11.0)
--- NOTE | 2024-05-10 17:30 | RAD_ITS ---
INDICATION: cough EXAMINATION/TECHNIQUE: X-RAY - XR Chest 2 Views COMPARISON: April 27, 2024 FINDINGS: LINES/DEVICES: None. LUNGS: No consolidation, edema or effusion. No pneumothorax. MEDIASTINUM AND CARDIOVASCULAR STRUCTURES: Cardiac silhouette not enlarged. Central airways and mediastinal contour are unremarkable. BONES AND SOFT TISSUES: Old right sixth rib fracture. RAD/Chest PA and Lateral IMPRESSION: No radiographic evidence of acute cardiopulmonary disease. Electronically Signed: Toi Rothman DO at 19:04 EST ,
[2024-05-10 17:42] LABS: Anion Gap 5 (5-15); BUN 16 mg/dL (7-18); BUN/Creat Ratio 29.5 RATIO (10-20); Calcium,Total 8.3 mg/dL (8.5-10.1); Chloride 103 mmol/L (98-107); Creatinine, Serum 0.54 mg/dL (0.55-1.02); EST Glomerular Filtration Rate 122 mL/min (>60); Est Glom Filt Rate - Afr Amer 148 mL/min (>60); Estimated Creatinine Clearance 117.77 ml/min; Glucose 84 mg/dL (74-106); Potassium 4.5 mmol/L (3.5-5.1); Sodium Level 133 mmol/L (136-145)
[2024-05-11 00:16] VITALS: BP 170/86; PULSE 77; RESP 12; TEMP 37; O2SAT 100; O2SAT 98
[2024-05-11 00:39] VITALS: BP 150/74; PULSE 89; RESP 16; O2SAT 98
== END 2024-05-11 00:40 | disposition home or self-care (01) ==
PROVIDERS: Emergency Provider Emergency Medicine; PCP Internal Medicine; Visit Provider Emergency Medicine
DX: R42 Dizziness and giddiness (principal); I48.0 Paroxysmal atrial fibrillation; E11.9 Type 2 diabetes mellitus without complications; I10 Essential (primary) hypertension; E78.5 Hyperlipidemia, unspecified; D62 Acute posthemorrhagic anemia; I25.10 Atherosclerotic heart disease of native coronary artery without angina pectoris; K92.2 Gastrointestinal hemorrhage, unspecified; Z79.899 Other long term (current) drug therapy; Z79.84 Long term (current) use of oral hypoglycemic drugs; Z79.82 Long term (current) use of aspirin; Z95.5 Presence of coronary angioplasty implant and graft; Z98.41 Cataract extraction status, right eye; Z98.42 Cataract extraction status, left eye; Z90.710 Acquired absence of both cervix and uterus; Z79.01 Long term (current) use of anticoagulants; Z79.02 Long term (current) use of antithrombotics/antiplatelets
CPT/HCPCS: 70450; 71046; 80048; 82274; 85025; 86850; 86900; 86901; 86920; 86922; 87631; 93005; 99285; P9016

== ENCOUNTER 2024-05-14 12:55 | Day surgery (SDC) | payer MEDICAID, SELFPAY ==
[2023-04-18 11:48] VITALS: BMI 32.9
--- NOTE | 2024-05-12 12:13 | PAT.ANE_ITS ---
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 When Was Last Pacemaker Check QUESTION #4 FULL TEXT: You/Your Family Experience fever (hyperthermia) with Anesthesia Last Oral Intake Last Oral intake: Last Oral Intake NPO since Meds taken in AM with sips of water? 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 Female Yes 05/12/24 11:44 HX of Motion Sickness No 05/12/24 11:44 HX of N/V After Surgery No 05/12/24 11:44 Non-Smoker Yes 05/12/24 11:44 Duration of Surgery greater No 05/12/24 11:44 than 60 minutes Number of Risk Factors 2 05/12/24 11:44 PONV Score Moderate Risk 05/12/24 11:44 Height & Weight Height & Weight: Anesthesia: Height & Weight Height 5 ft 3 in 05/06/24 14:18 Respiratory Assessment Respiratory Assessment - wire loop machine operator: Respiratory Tract Infection Hx - wire loop machine operator Hx Respiratory Tract Infection No 05/12/24 11:44 STOP Sleep Apnea STOP Sleep Apnea - wire loop machine operator: STOP Sleep Apnea - wire loop machine operator Hx Hypertension Yes: CONTROLLED WITH MEDS 05/12/24 11:44 Hx Sleep Apnea Yes 05/12/24 11:44 CPAP Yes 05/12/24 11:44 BIPAP No 05/12/24 11:44 Do you snore loudly (louder than talking or can be heard Do you often feel tired/ fatigued/ sleepy during daytime? Has anyone observed you stop breathing during sleep? STOP Results Positive 05/12/24 11:44 QUESTION #5 FULL TEXT : Do you snore loudly (louder than talking or can be heard through closed doors)? 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 Specify any problems Hx of Preganancy in last 3 No 05/12/24 11:44 Months Nurse Filling Out Transfusion [id number] 05/12/24 11:44 & Questions: Date: 05/12/24 05/12/24 11:44 Time: 11:49 05/12/24 11:44 Patient unable to answer at this time (ie. 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 operator: /Reproductive Hx- wire loop machine operator Hx Now Gestational Age (in weeks): EDC: Hx Hx Para Hx Section SAB PFSH Medical History (Updated 05/12/24 @ 12:02 by Calvin Mckeon) MRSA infection Wears glasses Anxiety Degenerative disc disease Gastric reflux History of edema Non-smoker Sleep apnea CPAP (continuous positive airway pressure) dependence Asthma History of stress test Cardiology follow-up encounter COVID (~04/2023) Paroxysmal atrial fibrillation Atrial fibrillation by electrocardiography Dyslipidemia Dyspnea Abnormal bruising Srini's disease SOB (shortness of breath) on exertion Coronary artery disease Abnormal exercise tolerance test Chest pain Palpitations Abnormal finding on EKG HSV-2 infection Cervicalgia Mixed connective tissue disease Interstitial lung disease Raynaud disease Essential hypertension Lupus Graves disease Fibromyalgia Diabetes Home Medications ?Medication ?Instructions ?Recorded ?Last Taken ?Type fluticasone propionate 50 2 spray NASAL DAILY 05/15/20 Unknown History mcg/actuation nasal spray,suspension levalbuterol tartrate 45 15 g IH Q4H PRN PRN Shortness Of 05/15/20 Unknown History mcg/actuation aerosol inhaler Breath montelukast 10 mg tablet 10 mg PO DAILY 05/15/20 Unknown History epinephrine 0.3 mg/0.3 mL 0.3 mg IM ONCE 08/04/22 Unknown History injection, auto-injector triamcinolone acetonide 0.1 % 1 applic topical DAILY 08/04/22 Unknown History topical cream lansoprazole 30 mg capsule,delayed 30 mg PO DAILY 08/08/22 Unknown History release metformin 500 mg tablet,extended 1,000 mg PO BID 08/08/22 12/26/22 History release 24 hr nitroglycerin 0.4 mg sublingual 0.4 mg sublingual Q5M PRN 12/27/22 Unknown Rx tablet Cardiac/Chest Pain #15 tabs isosorbide mononitrate 30 mg 30 mg PO QAM #90 tabs 06/05/23 Unknown Rx tablet,extended release 24 hr pravastatin 20 mg tablet 20 mg PO QHS #90 tabs 07/10/23 Unknown Rx bupropion HCl 150 mg 24 hr tablet, 150 mg PO QAM 02/13/24 Unknown History extended release aspirin 81 mg tablet,delayed 81 mg PO DAILY #90 tabs 04/15/24 Unknown Rx release (Adult Aspirin Regimen) carvedilol 25 mg tablet 12.5 mg PO .COMPLEX 04/15/24 Unknown History ferrous sulfate 325 mg (65 mg 325 mg PO DAILY 04/15/24 Unknown History iron) tablet (FeroSul) hydroxychloroquine 200 mg tablet 200 mg PO BID 04/15/24 Unknown History losartan 50 mg tablet 50 mg PO BID this is dose increase 04/29/24 Unknown Rx #180 tabs citalopram 40 mg tablet 40 mg PO DAILY 05/10/24 Unknown History tizanidine 2 mg capsule 2 mg PO TID PRN PRN muscle 05/10/24 Unknown History spasticity apixaban 5 mg tablet (Eliquis) 5 mg PO BID 05/12/24 05/10/24 History Allergy/AdvReac Type Severity Reaction Status Date / Time cantaloupe Allergy Angioedema Verified 05/12/24 11:36 Sulfa (Sulfonamide Allergy Hives Verified 05/12/24 11:36 Antibiotics) diltiazem AdvReac Intermediate Hypotension, Verified 05/12/24 11:36 lightheaded and dizzy levofloxacin (From Levaquin) AdvReac Intermediate Hives Verified 05/12/24 11:36 Family History Mother CAD (coronary artery disease) stents Hypertension Vertigo Pacemaker Enlarged heart Father Cancer prostate Sister Sjogrens syndrome Grandmother Heart disease Grandfather Heart disease Uncle Heart disease Enlarged heart Surgical History History of cardiac catheterization Stented coronary artery (~12/27/22) Hx of sinus surgery Hx of bilateral cataract extraction Hx of tonsillectomy Hx of hysterectomy Hx of dilation and curettage Social History Smoking Status: Never smoker alcohol intake: current alcohol intake frequency: holidays/special occasions only substance use type: does not use caffeine: Yes Type: coffee Number of servings: 1 Audit: Pertinent Findings Pertinent Findings EKG Perinent findings: 05/10/2024 normal sinus rhythm 74 bpm normal EKG Stress test pertinent findings: 06/25/2023 EF 76% negative Echo (EF%) pertinent findings: 02/07/2023 ejection fraction 65% Additional pertinent findings: Hemoglobin 6.414 2024 Surgeon aware Recommendation Anesthesia Recommendation Anesthesia recommendation: OPTIMIZED for anesthesia
--- NOTE | 2024-05-14 13:07 | PCM.HP.STD ---
HPI - General General Date of Admission: 05/14/24 Date of Service: 05/14/24 Chief Complaint: Anemia HPI Narrative VIVI ANAND, is a 58 F who presentsChief Complaint: diarrhea, elevated LFTs, anemia Details: VIVI ANAND, is a 58 F who presents to the office today for establishment with [facility]. Pt has a PMHx of afib, interstitial lung disease, dyslipidemia, CAD, graves disease, HTN, and Raynaud disease. SHe is here today for evaluation of her anemia. SHe was seeing GI/hepatology in [place] for awhile and they recommended scopes to ensure she was not bleeding in her GI tract she was uneasy about it and canceled. She has been having diarrhea for a few months now after drinking julio tea daily. She will have 2-3 loose bm per day. She does not see any blood in her stool but she is on iron supplementation so her stools are black.Her last colonoscopy was around 5 years ago without abnormality. She has had an EGD in the past but it was probably 30 years ago she states. She has been feeling well in general despite issues with her lungs following COVID19 and dizziness that she sees cardiology for. She tells me that over the past 8 years she has had elevated liver enzymes and has seen hepatology in [place]. She is unsure if they found a reason for this. 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 She has never taken medications for her liver. Today she denies abdominal pain, n/v, constipation, hematochezia, or heartburn. [facility] Medical History MRSA infection Wears glasses Anxiety Degenerative disc disease Gastric reflux History of edema Non-smoker Sleep apnea CPAP (continuous positive airway pressure) dependence Asthma History of stress test Cardiology follow-up encounter COVID (~04/2023) Paroxysmal atrial fibrillation Atrial fibrillation by electrocardiography Dyslipidemia Dyspnea Abnormal bruising Srini's disease SOB (shortness of breath) on exertion Coronary artery disease Abnormal exercise tolerance test Chest pain Palpitations Abnormal finding on EKG HSV-2 infection Cervicalgia Mixed connective tissue disease Interstitial lung disease Raynaud disease Essential hypertension Lupus Graves disease Fibromyalgia Diabetes Home Medications ?Medication ?Instructions ?Recorded ?Last Taken ?Type fluticasone propionate 50 2 spray NASAL DAILY 05/15/20 Unknown History mcg/actuation nasal spray,suspension levalbuterol tartrate 45 15 g IH Q4H PRN PRN Shortness Of 05/15/20 Unknown History mcg/actuation aerosol inhaler Breath montelukast 10 mg tablet 10 mg PO DAILY 05/15/20 Unknown History epinephrine 0.3 mg/0.3 mL 0.3 mg IM ONCE 08/04/22 Unknown History injection, auto-injector triamcinolone acetonide 0.1 % 1 applic topical DAILY 08/04/22 Unknown History topical cream lansoprazole 30 mg capsule,delayed 30 mg PO DAILY 08/08/22 Unknown History release metformin 500 mg tablet,extended 1,000 mg PO BID 08/08/22 12/26/22 History release 24 hr nitroglycerin 0.4 mg sublingual 0.4 mg sublingual Q5M PRN 12/27/22 Unknown Rx tablet Cardiac/Chest Pain #15 tabs isosorbide mononitrate 30 mg 30 mg PO QAM #90 tabs 06/05/23 Unknown Rx tablet,extended release 24 hr pravastatin 20 mg tablet 20 mg PO QHS #90 tabs 07/10/23 Unknown Rx bupropion HCl 150 mg 24 hr tablet, 150 mg PO QAM 02/13/24 Unknown History extended release aspirin 81 mg tablet,delayed 81 mg PO DAILY #90 tabs 04/15/24 Unknown Rx release (Adult Aspirin Regimen) carvedilol 25 mg tablet 12.5 mg PO .COMPLEX 04/15/24 Unknown History ferrous sulfate 325 mg (65 mg 325 mg PO DAILY 04/15/24 Unknown History iron) tablet (FeroSul) hydroxychloroquine 200 mg tablet 200 mg PO BID 04/15/24 Unknown History losartan 50 mg tablet 50 mg PO BID this is dose increase 04/29/24 Unknown Rx #180 tabs citalopram 40 mg tablet 40 mg PO DAILY 05/10/24 Unknown History tizanidine 2 mg capsule 2 mg PO TID PRN PRN muscle 05/10/24 Unknown History spasticity apixaban 5 mg tablet (Eliquis) 5 mg PO BID 05/12/24 05/10/24 History Allergy/AdvReac Type Severity Reaction Status Date / Time cantaloupe Allergy Angioedema Verified 05/12/24 11:36 Sulfa (Sulfonamide Allergy Hives Verified 05/12/24 11:36 Antibiotics) diltiazem AdvReac Intermediate Hypotension, Verified 05/12/24 11:36 lightheaded and dizzy levofloxacin (From Levaquin) AdvReac Intermediate Hives Verified 05/12/24 11:36 Family History Mother CAD (coronary artery disease) stents Hypertension Vertigo Pacemaker Enlarged heart Father Cancer prostate Sister Sjogrens syndrome Grandmother Heart disease Grandfather Heart disease Uncle Heart disease Enlarged heart Surgical History History of cardiac catheterization Stented coronary artery (~12/27/22) Hx of sinus surgery Hx of bilateral cataract extraction Hx of tonsillectomy Hx of hysterectomy Hx of dilation and curettage Social History Smoking Status: Never smoker alcohol intake: current alcohol intake frequency: holidays/special occasions only substance use type: does not use caffeine: Yes Type: coffee Number of servings: 1 ROS Constitutional Constitutional: Denies fatigue, fever(s), poor appetite, weight gain or weight loss Gastrointestinal Gastrointestinal: Denies belching, bloating, change in bowel habits, change in stool character, chewing difficulty, coffee ground emesis, constipation, cramping, diarrhea, dyspepsia, dysphagia, early satiety, excessive flatus, fecal incontinence, heartburn, hematemesis, hematochezia, hemorrhoids, loose stools, melena, nausea, odynophagia, rectal bleeding, tenesmus, vomiting or weight changes Physical Exam Const alert, oriented x3, no apparent distress and healthy appearing General Appearance: cooperative GI normal to inspection, nondistended, normoactive bowel sounds, soft to palpation, non-tender and non-distended Percussion: normal to percussion Rectal Exam: deferred Assessment & Plan Assessment/Plan (1) Occult GI bleeding: (2) Acute on chronic blood loss anemia: PLAN: Plan Assessment and Plan Assessment and Plan (1) Diarrhea: Status: Acute Plan: Pt is here today for establishment with [facility] for diarrhea, elevated liver enzymes and anemia. She was previously being seen by GI/hepatology in [place] but wanted to have her care closer to home. Every since she started drinking julio tea she she has noticed diarrhea. I will order stool testing to rule out infection or inflammation in her colon. Her liver enzymes have been elevated over the past 8 years with unclear etiology. She does have numerous autoimmune conditions that could affect the liver. I will order liver elastography to have a baseline liver stiffness. I will also re check her LFTs. She will undergo EGD to rule out bleeding from her GI tract causing anemia. She is uneasy about scopes and would like to just do an EGD first and then a colonoscopy in the future. -EGD -Liver elastography -Diarrhea blood work -Stool testing (2) Elevated LFTs: Status: Acute (3) Anemia: Status: Inactive
--- NOTE | 2024-05-14 13:20 | PRE.ANES_ITS ---
ASA Classification* ASA Classification ASA Classification: 3 Assessment & Plan Anesthesia* Anesthesia Assessment Anesthesia Assessment: Discussed sedation and/or anesthesia options, risks, benefits, and alternatives with patient/parents/legal guardian/POA. Questions invited. The patient/parents/legal guardian/POA seems to understand and agrees to proceed with anesthesia plan. Reviewed the physical assessment, medical history, allergy history and patient home medications list prior to surgery/procedure/anesthetic and documented any changes. Performed airway and anesthesia risk assessments. Anesthesia Type Anesthesia Type: MAC Anesthesia Focused Assessment* Airway Assessment Mouth opens: >3 cm Mallampati Score: II Focused Labs Anesthesia Preop lab: CBC WBC 4.1 K/mm3 (4.4-11.0) L 05/10/24 17:20 RBC 2.12 M/mm3 (4.2-5.4) L 05/10/24 17:20 Hgb 6.4 g/dL (12.0-15.0) L 05/10/24 17:20 Hct 21.4 % (37-47) L 05/10/24 17:20 Plt Count 161 K/mm3 (150-450) 05/10/24 17:20 CHEMISTRY Potassium 4.5 mmol/L (3.5-5.1) 05/10/24 17:20 Sodium 133 mmol/L (136-145) L 05/10/24 17:20 Magnesium 1.6 mg/dL (1.6-2.6) 10/22/23 16:37 BUN 16 mg/dL (7-18) 05/10/24 17:20 Creatinine 0.54 mg/dL (0.55-1.02) L 05/10/24 17:20 Glucose 84 mg/dL (74-106) 05/10/24 17:20 POC Glucose 387 mg/dL (70-110) H 05/15/20 16:59 TSH 0.721 uIU/mL (0.358-3.740) 04/27/24 12:15 COAG PT 15.1 SECONDS (11.7-14.9) H 08/28/23 07:20 Pre-Assessment Diagnosis/Proposed Procedure Planned Operative Procedure(s): EGD Anesthesia History Anesthesia History - physician practice market manager: Anesthesia History - physician practice market manager Hx Hospitalization No 05/12/24 11:44 Any Problems With Anesthesia No 05/12/24 11:44 Cholinesterase deficiency No 05/12/24 11:44 You/Your Family Experience No 05/12/24 11:44 fever (hyperthermia) with Relationship Recent Exposure to Contagious Disease Does patient have nerve No 05/12/24 11:44 stimulator Patient instructed to have device shut off --Does patient have Pacemaker or ICD? When Was Last Pacemaker Check QUESTION #4 FULL TEXT: You/Your Family Experience fever (hyperthermia) with Anesthesia Last Oral Intake Last Oral intake: Last Oral Intake NPO since Meds taken in AM with sips of water? 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 - physician practice market manager: PONV - physician practice market manager Female Yes 05/12/24 11:44 HX of Motion Sickness No 05/12/24 11:44 HX of N/V After Surgery No 05/12/24 11:44 Non-Smoker Yes 05/12/24 11:44 Duration of Surgery greater No 05/12/24 11:44 than 60 minutes Number of Risk Factors 2 05/12/24 11:44 PONV Score Moderate Risk 05/12/24 11:44 Height & Weight Height & Weight: Anesthesia: Height & Weight Height 5 ft 3 in 05/10/24 15:55 Respiratory Assessment Respiratory Assessment - physician practice market manager: Respiratory Tract Infection Hx - physician practice market manager Hx Respiratory Tract Infection No 05/12/24 11:44 STOP Sleep Apnea STOP Sleep Apnea - physician practice market manager: STOP Sleep Apnea - physician practice market manager Hx Hypertension Yes: CONTROLLED WITH MEDS 05/12/24 11:44 Hx Sleep Apnea Yes 05/12/24 11:44 CPAP Yes 05/12/24 11:44 BIPAP No 05/12/24 11:44 Do you snore loudly (louder than talking or can be heard Do you often feel tired/ fatigued/ sleepy during daytime? Has anyone observed you stop breathing during sleep? STOP Results Positive 05/12/24 11:44 QUESTION #5 FULL TEXT : Do you snore loudly (louder than talking or can be heard through closed doors)? Tobacco Use History Tobacco Use History - physician practice market manager: Tobacco Use History - physician practice market manager Tobacco Use Smoking Status Never smoker 05/12/24 11:44 Hx Tobacco Use No 05/12/24 11:44 Years Smoking Packs Smoked per Day Smoking Cessation Date was within the last 15 years Hx Smoking Cessation Date Hx Smoking Cessation Counseling Hematologic Medial History Hematologic Hx - physician practice market manager: Hematologic Medical Hx - cardiac catheterization technologist Hx of Blood Transfusion Yes 05/12/24 11:44 Hx of Transfusion in last 3 Yes 05/12/24 11:44 Months Date of Last Transfusion (if 05/10/24 05/12/24 11:44 within last 3 months) Ever experience any problems No 05/12/24 11:44 with transfusion(s)? Specify any problems Hx of Preganancy in last 3 No 05/12/24 11:44 Months Nurse Filling Out Transfusion [id number] 05/12/24 11:44 & Questions: Date: 05/12/24 05/12/24 11:44 Time: 11:49 05/12/24 11:44 Patient unable to answer at this time (ie. confused, unrespo /Reproduction History /Reproductive History - physician practice market manager: /Reproductive Hx- physician practice market manager Hx Now Gestational Age (in weeks): EDC: Hx Hx Para Hx Section SAB PFSH Medical History MRSA infection Wears glasses Anxiety Degenerative disc disease Gastric reflux History of edema Non-smoker Sleep apnea CPAP (continuous positive airway pressure) dependence Asthma History of stress test Cardiology follow-up encounter COVID (~04/2023) Paroxysmal atrial fibrillation Atrial fibrillation by electrocardiography Dyslipidemia Dyspnea Abnormal bruising Srini's disease SOB (shortness of breath) on exertion Coronary artery disease Abnormal exercise tolerance test Chest pain Palpitations Abnormal finding on EKG HSV-2 infection Cervicalgia Mixed connective tissue disease Interstitial lung disease Raynaud disease Essential hypertension Lupus Graves disease Fibromyalgia Diabetes Home Medications ?Medication ?Instructions ?Recorded ?Last Taken ?Type fluticasone propionate 50 2 spray NASAL DAILY 05/15/20 Unknown History mcg/actuation nasal spray,suspension levalbuterol tartrate 45 15 g IH Q4H PRN PRN Shortness Of 05/15/20 Unknown History mcg/actuation aerosol inhaler Breath montelukast 10 mg tablet 10 mg PO DAILY 05/15/20 Unknown History epinephrine 0.3 mg/0.3 mL 0.3 mg IM ONCE 08/04/22 Unknown History injection, auto-injector triamcinolone acetonide 0.1 % 1 applic topical DAILY 08/04/22 Unknown History topical cream lansoprazole 30 mg capsule,delayed 30 mg PO DAILY 08/08/22 Unknown History release metformin 500 mg tablet,extended 1,000 mg PO BID 08/08/22 12/26/22 History release 24 hr nitroglycerin 0.4 mg sublingual 0.4 mg sublingual Q5M PRN 12/27/22 Unknown Rx tablet Cardiac/Chest Pain #15 tabs isosorbide mononitrate 30 mg 30 mg PO QAM #90 tabs 06/05/23 Unknown Rx tablet,extended release 24 hr pravastatin 20 mg tablet 20 mg PO QHS #90 tabs 07/10/23 Unknown Rx bupropion HCl 150 mg 24 hr tablet, 150 mg PO QAM 02/13/24 Unknown History extended release aspirin 81 mg tablet,delayed 81 mg PO DAILY #90 tabs 04/15/24 Unknown Rx release (Adult Aspirin Regimen) carvedilol 25 mg tablet 12.5 mg PO .COMPLEX 04/15/24 Unknown History ferrous sulfate 325 mg (65 mg 325 mg PO DAILY 04/15/24 Unknown History iron) tablet (FeroSul) hydroxychloroquine 200 mg tablet 200 mg PO BID 04/15/24 Unknown History losartan 50 mg tablet 50 mg PO BID this is dose increase 04/29/24 Unknown Rx #180 tabs citalopram 40 mg tablet 40 mg PO DAILY 05/10/24 Unknown History tizanidine 2 mg capsule 2 mg PO TID PRN PRN muscle 05/10/24 Unknown History spasticity apixaban 5 mg tablet (Eliquis) 5 mg PO BID 05/12/24 05/10/24 History Allergy/AdvReac Type Severity Reaction Status Date / Time cantaloupe Allergy Angioedema Verified 05/12/24 11:36 Sulfa (Sulfonamide Allergy Hives Verified 05/12/24 11:36 Antibiotics) diltiazem AdvReac Intermediate Hypotension, Verified 05/12/24 11:36 lightheaded and dizzy levofloxacin (From Levaquin) AdvReac Intermediate Hives Verified 05/12/24 11:36 Family History Mother CAD (coronary artery disease) stents Hypertension Vertigo Pacemaker Enlarged heart Father Cancer prostate Sister Sjogrens syndrome Grandmother Heart disease Grandfather Heart disease Uncle Heart disease Enlarged heart Surgical History History of cardiac catheterization Stented coronary artery (~12/27/22) Hx of sinus surgery Hx of bilateral cataract extraction Hx of tonsillectomy Hx of hysterectomy Hx of dilation and curettage Social History Smoking Status: Never smoker alcohol intake: current alcohol intake frequency: holidays/special occasions only substance use type: does not use caffeine: Yes Type: coffee Number of servings: 1 Review of Systems (Anesthesia) ROS Narrative System reviewed and no additional complaints, except as documented.
--- NOTE | 2024-05-14 13:28 | EKG12_ITS ---
Test Reason : pre proc Blood Pressure : */* mmHG Vent. Rate : 87 BPM Atrial Rate : 87 BPM P-R Int : 144 ms QRS Dur : 70 ms QT Int : 376 ms P-R-T Axes : 7 -2 43 degrees QTcB Int : 452 ms Normal sinus rhythm Minimal voltage criteria for LVH, may be normal variant ( R in aVL ) Borderline ECG When compared with ECG of 10-May-2024 16:55, No significant change was found Confirmed by Caden Charles ([id number]), general expeditor ROBLES NAIR ([id number]) on 05/16/2024 9:42:03 AM Referred By: Opal Bernal Confirmed By: Caden Charles
[2024-05-14 13:43] LABS: Bedside Glucose 100 mg/dL (74-106)
[2024-05-14 13:44] VITALS: BP 134/65; PULSE 86; RESP 16; TEMP 37; O2SAT 100; BMI 33.2
[2024-05-14] MEDS: 0.9% Normal Saline (1000mL) 1,000 ML 15 ML IV (13:59)
--- NOTE | 2024-05-14 14:00 | IMM_PTH ---
PATIENT: VIVI ANNAD LOC: EN U#:[id number] AGE/SX: 58/F ROOM: RE05/14/[address]: Dr. Mike Daley DO : 1965 BED: DIS: 05/14/2024 SPEC #: [id number] RECD: 05/15/24 08:44 STATUS: MALOU RETalia #: [id number] CARISA: 05/14/24 14:[address]: Mike Daley DEPT: IMMUNOHISTOCHEMISTRY RECD BY: Kelvin Meehan ENTERED: 05/15/24 08:45 SP TYPE: IMMUNO OTHR DR: Dr. Opal Bernal MD Tissues: Gastric mucous membrane Procedures: H Pylori (initial) PHYSICIAN & INSTITUTION [place] [address] SPECIMEN INFORMATION: Tissue Source: Gastric body polyps Clinical Info: Occult GI bleeding, acute on chronic blood loss anemia Specimen Number: [id number] CPT code: 89401 METHODOLOGY: Deparaffinized sections of prefer/formalin-fixed tissue or PAP/DQ stained slides are incubated with monoclonal/polyclonal antibodies/oligonucleotide probes. Localization is made via biotin free immunoperoxidase method. Appropriate controls are performed and reacted as expected. Results on target cell population are indicated in the following table: RESULTS: ANTIBODY / CLONE RESULT H Pylori (polyclonal) negative These tests were developed and their performance characteristics determined by [facility]. They may not have been cleared or approved by the U.S. Food and Drug Administration. The FDA has determined that such clearance or approval is not necessary. The above immunohistochemical/dualISH markers are ordered and reviewed by the Pathologist. INTERPRETATION: Gastric body polyps, polypectomy: Negative for Helicobacter pylori organisms. 05/19/2024
--- NOTE | 2024-05-14 14:00 | EGD_PTH ---
PATIENT: VIVI ANAND LOC: EN U#:[id number] AGE/SX: 58/F ROOM: RE05/14/[address]: Dr. Mike Daley DO : 1965 BED: DIS: 05/14/2024 SPEC #: [id number] RECD: 05/14/24 17:26 STATUS: MALOU DUARTE #: [id number] CARISA: 05/14/24 14:[address]: iMke Daley DEPT: SURGICAL PATHOLOGY RECD BY: Jailene Hussein ENTERED: 05/15/24 10:13 SP TYPE: EGD BIOPSY OTHR DR: Dr. Opal Bernal MD Tissues: Gastric mucous membrane Procedures: Surgery Specimen Level IV HEADER OPERATION: EGD, polypectomy, electrohemostasis, clip PRE-OP DIAGNOSIS: Occult GI bleed, acute on chronic blood loss anemia TISSUE SUBMITTED: Gastric body polyps MICROSCOPIC DIAGNOSIS Gastric body polyp, polypectomy: Fragments of hyperplastic/inflammatory polyp and numerous blood clots. See comment. 05/16/2024 COMMENT Polyps also show extensive ulceration and associated acute inflammation. The results of immunohistochemistry for Helicobacter pylori will be reported separately ([id number]). MICROSCOPIC DESCRIPTION Slides are reviewed. GROSS DESCRIPTION Received in fixative is one container labeled with the patient's name and designated Gastric body polyps. The specimen consists of multiple irregular fragments of blood clot mixed with hemorrhagic polypoid tissue that in aggregate measure 7.5 x 3.0 x 0.3 cm. The specimen is totally submitted in three cassettes. 05/15/2024 TC:5 CPT:71888
[2024-05-14 14:01] LABS: Hematocrit 23.4 % (37-47); Hemoglobin 7.5 g/dL (12.0-15.0); Mean Corp Hgb Conc 32.1 g/dL (32-36); Mean Corpuscular Volume 93.6 fL (81-99); Mean Platelet Vol. 11.5 fl (6.2-12.0); Platelet Count 193 K/mm3 (150-450); RBC Distribution Width CV 18.2 % (11.6-14.6); RBC Distribution Width SD 61.5 fl (35.1-43.9); White Blood Count 4.1 K/mm3 (4.4-11.0)
[2024-05-14 14:28] LABS: ALB/GLOB Ratio 0.9 RATIO (0.9-2.4); AST(SGOT) 52 U/L (15-37); Alanine Aminotransfer ALT/SGPT 69 U/L (13-56); Albumin, Serum 3.1 g/dL (3.2-5.0); Alkaline Phosphatase 92 U/L (45-117); Anion Gap 7 (5-15); BUN 22 mg/dL (7-18); BUN/Creat Ratio 37.9 RATIO (10-20); Calcium,Total 8.3 mg/dL (8.5-10.1); Chloride 102 mmol/L (98-107); Creatinine, Serum 0.58 mg/dL (0.55-1.02); EST Glomerular Filtration Rate 113 mL/min (>60); Est Glom Filt Rate - Afr Amer 137 mL/min (>60); Estimated Creatinine Clearance 109.22 ml/min; Globulin 3.4 g/dL (2.2-4.2); Glucose 100 mg/dL (74-106); Potassium 4.5 mmol/L (3.5-5.1); Protein, Total 6.5 g/dL (6.4-8.2); Sodium Level 132 mmol/L (136-145)
[2024-05-14 14:45] LABS: Partial Thromboplast Time 28.8 Seconds (24.1-36.2)
[2024-05-14 14:58] LABS: International Normalized Ratio 1.2; Prothrombin Time (Protime)PT. 15.7 SECONDS (11.7-14.9)
[2024-05-14 15:45] VITALS: BP 106/61; BP 134/65; PULSE 89; RESP 16; TEMP 36.4; O2SAT 100
--- NOTE | 2024-05-14 15:47 | OP.CCLET_ITS ---
05/14/2024 Opal Bernal [address] [place] [address] Re : Upper GI endoscopy procedure for Vikki Holland Dear Dr. Bernal This procedure was performed on Tuesday, May 14, 2024. My impressions and recommendations are as follows: Impressions : - Normal esophagus. - Red blood in the gastric body. - Multiple gastric polyps. Resected and retrieved. Clip was placed. 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 - A single non-bleeding angiodysplastic lesion in the stomach. Treated with a heater probe. - No gross lesions in the second portion of the duodenum. Recommendations : - Discharge patient to home. - Resume previous diet. - Continue present medications. - Await pathology results. My findings are described in the full procedure note, which is enclosed. If I can be of further assistance, please feel free to contact me at . Sincerely, Mike Friend, DO 05/14/2024 3:46:33 PM This report has been signed electronically.
--- NOTE | 2024-05-14 15:47 | OP.EGD_ITS ---
Patient Name: Vikki Holland Procedure Date: 05/14/2024 3:07 PM Date of : 1965 Age: 58 Procedure: Upper GI endoscopy Indications: Iron deficiency anemia, Melena, Active gastrointestinal bleeding, Recent gastrointestinal bleeding, Suspected upper gastrointestinal bleeding Providers: Mike Daley DO Referring MD: Opal Bernal Medicines: Monitored Anesthesia Care Patient Profile: This is a 58 year old female. Refer to note in patient chart for documentation of history and physical. Patient has symptoms of acute nausea. Complications: No immediate complications. Procedure: Pre-Anesthesia Assessment: - Prior to the procedure, a History and Physical was performed, and patient medications and allergies were reviewed. The patient is competent. The risks and benefits of the procedure and the sedation options and risks were discussed with the patient. All questions were answered and informed consent was obtained. Patient identification and proposed procedure were verified by the physician in the pre-procedure area. Mental Status Examination: alert and oriented. Airway Examination: normal oropharyngeal airway and neck mobility. Respiratory Examination: clear to auscultation. CV Examination: normal. Prophylactic Antibiotics: The patient does not require prophylactic antibiotics. Prior Anticoagulants: The patient has taken no anticoagulant or antiplatelet agents. ASA Grade Assessment: III - A patient with severe systemic disease. After reviewing the risks and benefits, the patient was deemed in satisfactory condition to undergo the procedure. The anesthesia plan was to use monitored anesthesia care (MAC). Immediately prior to administration of medications, the patient was re-assessed for adequacy to receive sedatives. The heart rate, respiratory rate, oxygen saturations, blood pressure, adequacy of pulmonary ventilation, and response to care were monitored throughout the procedure. The physical status of the patient was re-assessed after the procedure. After obtaining informed consent, the endoscope was passed under direct vision. Throughout the procedure, the patient's blood pressure, pulse, and oxygen saturations were monitored continuously. The Endoscope was introduced through the mouth, and advanced to the second part of duodenum. The upper GI endoscopy was accomplished without difficulty. The patient tolerated the procedure well. Scope In: 3:20:54 PM Scope Out: 3:38:45 PM Total Procedure Duration Time 0 hours 17 minutes 51 seconds Findings: The examined esophagus was normal. Red blood was found in the gastric body. Multiple 15 mm pedunculated and sessile polyps with bleeding and stigmata of recent bleeding were found in the gastric body. Polypectomy was attempted, initially using a hot snare. Polyp resection was incomplete with this device. This intervention then required a different device and polypectomy technique. The polyp was removed with a hot snare. Resection and retrieval were complete. To prevent bleeding post-intervention, one hemostatic clip was successfully placed. 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 There was no bleeding at the end of the procedure. A single 5 mm angiodysplastic lesion with no bleeding was found in the cardia. Coagulation for bleeding prevention using heater probe was successful. Estimated blood loss was minimal. No gross lesions were noted in the second portion of the duodenum. Impression: - Normal esophagus. - Red blood in the gastric body. - Multiple gastric polyps. Resected and retrieved. Clip was placed. 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 - A single non-bleeding angiodysplastic lesion in the stomach. Treated with a heater probe. - No gross lesions in the second portion of the duodenum. Recommendation: - Discharge patient to home. - Resume previous diet. - Continue present medications. - Await pathology results. Procedure Code(s): --- Professional --- 84844, 59, Esophagogastroduodenoscopy, flexible, transoral; with control of bleeding, any method 25672, 51, Esophagogastroduodenoscopy, flexible, transoral; with removal of tumor(s), polyp(s), or other lesion(s) by snare technique CPT copyright 2021 [employer]. All rights reserved. The codes documented in this report are preliminary and upon kettle girl review may be revised to meet current compliance requirements. Mike Daley DO 05/14/2024 3:46:33 PM This report has been signed electronically. Number of Addenda: 0 Note Initiated On: 05/14/2024 3:07 PM
--- NOTE | 2024-05-14 15:48 | PCM.POST.ANE ---
Anesthesia: Postop Eval I Current Vital Signs Temperature: 97.5 F Pulse Rate: 87 Blood Pressure: 106/61 Respiratory Rate: 20 Pulse Ox: 100 Oxygen Delivery Method: Room Air Assessment Airway patent: Yes Spontaneous unlabored respirations: Yes Mental status: Awake nausea: No Vomiting: No Anesthesia Complication: No Fluid Hydration Crystalloid volume administer (ml): 500 Total IV fluid infused: 500 Progress Note Anesthesia document: Postop Eval 1 completed: Yes
[2024-05-14 15:50] VITALS: BP 106/61; BP 118/56; BP 134/65; PULSE 87; PULSE 88; RESP 16; RESP 20; TEMP 36.4; O2SAT 100
--- NOTE | 2024-05-14 16:03 | POSTOPAN2_ITS ---
Anesthesia Postop Eval I Sum Postop Eval Completion status Anesthesia document: Postop Eval 1 completed: Yes Anesthesia Postop Eval I Summary Anesthesia Postop Eval I Summary: Anesthesia Postop Eval I: Assessment Summary Airway patent Yes 05/14/24 15:50 [email or web address] Spontaneous unlabored Yes 05/14/24 15:50 [facility] respirations Mental status Awake 05/14/24 15:50 [facility] nausea No 05/14/24 15:50 [facility] Vomiting No 05/14/24 15:50 [facility] Anesthesia Postop Eval I: Fluid Summary Crystalloid volume administer 500 05/14/24 15:50 [facility] (ml) Colloids volume administered ( ml) Blood Product volume administered (ml) Total IV fluid infused 500 05/14/24 15:50 [facility] Anesthesia Postop Eval I: Summary Notes Anesthesia Complication No 05/14/24 15:50 [facility] Anesthesia Complication Comment: Post-operative progress note Anesthesia: Postop Eval II Evaluation Mental status: Awake Pain Level: 0 nausea: No Vomiting: No
--- NOTE | 2024-05-14 16:03 | PCM.POSTANE2 ---
Anesthesia Postop Eval I Sum Postop Eval Completion status Anesthesia document: Postop Eval 1 completed: Yes Anesthesia Postop Eval I Summary Anesthesia Postop Eval I Summary: Anesthesia Postop Eval I: Assessment Summary Airway patent Yes 05/14/24 15:50 [email or web address] Spontaneous unlabored Yes 05/14/24 15:50 [employer] respirations Mental status Awake 05/14/24 15:50 [employer] nausea No 05/14/24 15:50 [employer] Vomiting No 05/14/24 15:50 [employer] Anesthesia Postop Eval I: Fluid Summary Crystalloid volume administer 500 05/14/24 15:50 [employer] (ml) Colloids volume administered ( ml) Blood Product volume administered (ml) Total IV fluid infused 500 05/14/24 15:50 [employer] Anesthesia Postop Eval I: Summary Notes Anesthesia Complication No 05/14/24 15:50 [employer] Anesthesia Complication Comment: Post-operative progress note Anesthesia: Postop Eval II Evaluation Mental status: Awake Pain Level: 0 nausea: No Vomiting: No
[2024-05-14 16:05] VITALS: BP 129/70; BP 134/65; PULSE 75; PULSE 77; RESP 18; TEMP 36.5; O2SAT 100
[2024-05-14 16:43] VITALS: BP 134/65
== END 2024-05-14 16:56 | disposition home or self-care (01) ==
LOC: EN 12:56 → AC 12:57
PROVIDERS: Anesthesiology; PCP Internal Medicine; Referring Provider Internal Medicine; Visit Provider Internal Medicine Gastroenterology
PROC: 0DJ08ZZ Inspection of Upper Intestinal Tract, Via Natural or Artificial Opening Endoscopic (ICD-10-PCS; CPT 43235; principal; 2024-05-14 13:55)
DX: K92.2 Gastrointestinal hemorrhage, unspecified (principal); E11.9 Type 2 diabetes mellitus without complications; R74.8 Abnormal levels of other serum enzymes; R19.7 Diarrhea, unspecified; I25.10 Atherosclerotic heart disease of native coronary artery without angina pectoris; R42 Dizziness and giddiness; Z79.82 Long term (current) use of aspirin; K31.7 Polyp of stomach and duodenum; I10 Essential (primary) hypertension; Z86.16 Personal history of COVID-19; Z79.84 Long term (current) use of oral hypoglycemic drugs; Z90.710 Acquired absence of both cervix and uterus; E78.5 Hyperlipidemia, unspecified; M79.7 Fibromyalgia; K21.9 Gastro-esophageal reflux disease without esophagitis; D62 Acute posthemorrhagic anemia
CPT/HCPCS: 43255; 43251; 80053; 82962; 85027; 85610; 85730; 88305; 88342; 93005; A4216

== ENCOUNTER → 2024-05-21 | Outpatient (CLI) | payer MEDICAID, SELFPAY ==
[2023-04-18 11:48] VITALS: BMI 32.9
[2024-05-21 10:01] LABS: Absolute Lymphocyte Count 0.71 X10^3/uL (0.83-4.51); Absolute Neutrophil Count 1.8 X10^3/uL (2.0-7.7); Basophil# 0.02 X10^3/uL; Basophil% 0.7 % (0-1); Eosinophil# 0.05 X10^3/uL; Eosinophils% 1.7 % (0-5); Hematocrit 26.8 % (37-47); Hemoglobin 8.1 g/dL (12.0-15.0); Lymphocyte # 0.71 X10^3/ul (0.83-4.51); Lymphocyte % 23.9 % (19-41); Mean Corp Hgb Conc 30.2 g/dL (32-36); Mean Corpuscular Hgb 28.1 pg (27.0-32.0); Mean Corpuscular Volume 93.1 fL (81-99); Mean Platelet Vol. 11.5 fl (6.2-12.0); Monocyte# 0.39 X10^3/uL; Monocyte% 13.1 % (0-10); NRBC Flagged by Analyzer 0 % (0-5); Neutrophil # 1.79 X10^3/uL (2.7-7.7); Neutrophil % 60.3 % (47-70); Platelet Count 182 K/mm3 (150-450); RBC Distribution Width CV 15.8 % (11.6-14.6); RBC Distribution Width SD 54.3 fl (35.1-43.9); Red Blood Count 2.88 M/mm3 (4.2-5.4)
== END | disposition home or self-care (01) ==
LOC: LAB 09:31
PROVIDERS: PCP Internal Medicine; Referring Provider Student in an Organized Health Care Education/Training Program; Visit Provider Student in an Organized Health Care Education/Training Program
DX: D64.9 Anemia, unspecified (principal)
CPT/HCPCS: 36415; 85025

== ENCOUNTER → 2024-06-17 | Outpatient (CLI) | payer MEDICAID, SELFPAY ==
[2023-04-18 11:48] VITALS: BMI 32.9
[2024-06-21 01:07] LABS: Pancreatic Elastase, Fecal 669 (>200)
[2024-06-21 03:07] LABS: Calprotectin, Stool 102 ug/g (0-120)
== END | disposition home or self-care (01) ==
LOC: MTLAB 15:07
PROVIDERS: PCP Internal Medicine; Referring Provider Student in an Organized Health Care Education/Training Program; Visit Provider Student in an Organized Health Care Education/Training Program
DX: K58.9 Irritable bowel syndrome, unspecified (principal); R19.7 Diarrhea, unspecified; R79.89 Other specified abnormal findings of blood chemistry
CPT/HCPCS: 87493; 82653; 83630; 83993; 87177; 87209; 87329; 87506

== ENCOUNTER → 2024-06-18 | Outpatient (CLI) | payer MEDICAID, SELFPAY ==
[2023-04-18 11:48] VITALS: BMI 32.9
[2024-06-18 10:11] LABS: Absolute Lymphocyte Count 0.82 X10^3/uL (0.83-4.51); Absolute Neutrophil Count 1.8 X10^3/uL (2.0-7.7); Basophil# 0.02 X10^3/uL; Basophil% 0.6 % (0-1); Eosinophil# 0.17 X10^3/uL; Eosinophils% 5.4 % (0-5); Hematocrit 33.2 % (37-47); Hemoglobin 10.2 g/dL (12.0-15.0); Lymphocyte # 0.82 X10^3/ul (0.83-4.51); Lymphocyte % 26.1 % (19-41); Mean Corp Hgb Conc 30.7 g/dL (32-36); Mean Corpuscular Volume 87.8 fL (81-99); Monocyte# 0.36 X10^3/uL; Monocyte% 11.5 % (0-10); NRBC Flagged by Analyzer 0 % (0-5); Neutrophil # 1.76 X10^3/uL (2.7-7.7); Neutrophil % 56.1 % (47-70); Platelet Count 174 K/mm3 (150-450); RBC Distribution Width CV 15.2 % (11.6-14.6); RBC Distribution Width SD 48.4 fl (35.1-43.9); Red Blood Count 3.78 M/mm3 (4.2-5.4); White Blood Count 3.1 K/mm3 (4.4-11.0)
[2024-06-18 10:48] LABS: AST(SGOT) 40 U/L (15-37); Alanine Aminotransfer ALT/SGPT 47 U/L (13-56); Albumin, Serum 3.7 g/dL (3.2-5.0); Alkaline Phosphatase 113 U/L (45-117); Anion Gap 6 (5-15); BUN 8 mg/dL (7-18); BUN/Creat Ratio 12.6 RATIO (10-20); Calcium,Total 8.7 mg/dL (8.5-10.1); Chloride 101 mmol/L (98-107); Creatinine, Serum 0.64 mg/dL (0.55-1.02); EST Glomerular Filtration Rate 102 mL/min (>60); Est Glom Filt Rate - Afr Amer 123 mL/min (>60); Globulin 3.7 g/dL (2.2-4.2); Glucose 114 mg/dL (74-106); Iron 19 ug/dL (50-170); Potassium 4.5 mmol/L (3.5-5.1); Protein, Total 7.4 g/dL (6.4-8.2); Sodium Level 132 mmol/L (136-145)
[2024-06-18 10:49] LABS: Vitamin D,25 Hydroxy 29.9 ng/mL
[2024-06-18 10:59] LABS: AST(SGOT) 40 U/L (15-37); Alanine Aminotransfer ALT/SGPT 48 U/L (13-56); Albumin, Serum 3.7 g/dL (3.2-5.0); Alkaline Phosphatase 115 U/L (45-117); Bilirubin, Direct 0.15 mg/dL (0.00-0.30); Cholesterol 130 mg/dL (200); Globulin 3.6 g/dL (2.2-4.2); High Density Lipoprotein 58 mg/dL; Protein, Total 7.3 g/dL (6.4-8.2); Triglycerides 54 mg/dL; Very Low Density Lipoprotein 11 mg/dL (5-40)
== END | disposition home or self-care (01) ==
PROVIDERS: Student in an Organized Health Care Education/Training Program; PCP Internal Medicine; Referring Provider Nurse Practitioner Gerontology; Visit Provider Nurse Practitioner Gerontology
DX: R53.83 Other fatigue (principal); E78.00 Pure hypercholesterolemia, unspecified
CPT/HCPCS: 36415; 80053; 80061; 80076; 82306; 83540; 85025

== ENCOUNTER → 2024-07-17 | Outpatient (CLI) | payer MEDICAID, SELFPAY ==
[2023-04-18 11:48] VITALS: BMI 32.9
[2024-07-17 14:41] LABS: Anion Gap 12 (5-15); BUN 12 mg/dL (4-19); BUN/Creat Ratio 18.3 RATIO (10-20); Carbon Dioxide 22.5 mmol/L (21.0-32.0); Chloride 94 mmol/L (98-108); Creatinine, Serum 0.65 mg/dL (0.70-1.20); EST Glomerular Filtration Rate 102 (>60); Glucose 108 mg/dL (70-99); Potassium 4.4 mmol/L (3.3-5.1); Sodium Level 128 mmol/L (133-145)
== END | disposition home or self-care (01) ==
LOC: LAB 13:31
PROVIDERS: PCP Internal Medicine; Referring Provider Internal Medicine Cardiovascular Disease; Visit Provider Internal Medicine Cardiovascular Disease
DX: R94.31 Abnormal electrocardiogram [ECG] [EKG] (principal); I48.0 Paroxysmal atrial fibrillation; R07.9 Chest pain, unspecified; R53.83 Other fatigue; R06.02 Shortness of breath
CPT/HCPCS: 36415; 80048

== ENCOUNTER → 2024-07-28 | Outpatient (CLI) | payer MEDICAID, SELFPAY ==
[2023-04-18 11:48] VITALS: BMI 32.9
--- NOTE | 2024-07-28 06:49 | CT_ITS ---
EXAM: CT Chest Without Intravenous Contrast CLINICAL INDICATION: CHEST PAIN ON BREATHING TECHNIQUE: Axial computed tomography images of the chest without intravenous contrast. This CT exam was performed using one or more of the following dose reduction techniques: automated exposure control, adjustment of the mA and/or kV according to patient size, and/or use of iterative reconstruction technique. COMPARISON: CT Chest dated 10/22/2023 FINDINGS: LUNGS AND PLEURAL SPACES: Lung emphysema/COPD. No consolidation. No pneumothorax. No significant effusion. No new suspicious pulmonary nodules. HEART: Unremarkable. No cardiomegaly. No significant pericardial effusion. No significant coronary artery calcifications. BONES/JOINTS: Unremarkable. No acute fracture. No dislocation. SOFT TISSUES: Unremarkable. VASCULATURE: Unremarkable. No thoracic aortic aneurysm. LYMPH NODES: Unremarkable. No enlarged lymph nodes. CT/Chest without Contrast IMPRESSION: 1. No new suspicious pulmonary nodules. 2. Lung emphysema/COPD. Reading Location: [facility]
== END | disposition home or self-care (01) ==
LOC: CT 06:45
PROVIDERS: PCP Internal Medicine; Referring Provider Internal Medicine Pulmonary Disease; Visit Provider Internal Medicine Pulmonary Disease
DX: J84.113 Idiopathic non-specific interstitial pneumonitis (principal); R07.1 Chest pain on breathing
CPT/HCPCS: 71250

== ENCOUNTER → 2024-07-31 | Outpatient (CLI) | payer MEDICAID, SELFPAY ==
[2023-04-18 11:48] VITALS: BMI 32.9
[2024-07-31 16:51] LABS: Anion Gap 12 (5-15); BUN 12 mg/dL (4-19); Carbon Dioxide 21.6 mmol/L (21.0-32.0); Chloride 101 mmol/L (98-108); Creatinine, Serum 0.68 mg/dL (0.70-1.20); EST Glomerular Filtration Rate 101 (>60); Glucose 81 mg/dL (70-99); Potassium 4.9 mmol/L (3.3-5.1); Sodium Level 134 mmol/L (133-145)
== END | disposition home or self-care (01) ==
LOC: LAB 12:58
PROVIDERS: PCP Internal Medicine; Referring Provider Physician Assistant Medical; Visit Provider Physician Assistant Medical
DX: E87.1 Hypo-osmolality and hyponatremia (principal)
CPT/HCPCS: 36415; 80048

== ENCOUNTER → 2024-08-18 | Outpatient (CLI) | payer MEDICAID, SELFPAY ==
[2023-04-18 11:48] VITALS: BMI 32.9
--- NOTE | 2024-08-20 17:11 | STRESSREP ---
Stress Test Report Date: 08/18/2024 Procedure: Exercise tolerance test/imaging study Indications: Coronary artery disease Consent: Per the patient Procedure: The patient exercised on a Radu protocol for 5 minutes and 40 seconds achieving a peak heart rate of 131 bpm (80% predicted maximal heart rate) with a peak blood pressure 182/78 mmHg and a peak MET capacity of 7.2 METs. The baseline ECG demonstrated sinus rhythm. The peak exercise ECG no ischemic changes. There were no cardiac dysrhythmias pretest, during exercise, or recovery. The functional capacity was considered average. There was no complaint of chest discomfort during exercise or recovery. The examination was discontinued secondary to fatigue and shortness of breath. The patient was injected with 13.3 mCi of technetium 99m Cardiolite and subsequently rest SPECT Cardiolite nuclear imaging was obtained in the horizontal long, vertical long, and short axis views. Post-exercise, the patient was injected with 40.1 mCi of technetium 99m Cardiolite and subsequently stress SPECT Cardiolite nuclear imaging was obtained in the horizontal long, vertical long, and short axis views. A gated Cardiolite study at peak stress was obtained. Rest and stress SPECT Cardiolite nuclear imaging status post realignment, normalization, and attenuation correction, demonstrates the appearance of relative uniform tracer uptake and myocardial perfusion appearing within normal limits. There is end systolic thickening and brightening. The gated Cardiolite study demonstrates myocardial thickening and inward wall motion. The reported LVEF is 79%. Impression: 1. Technically adequate (percent predicted maximal heart rate 80%) exercise tolerance test 2. Peak exercise ECG with no ischemic changes. Shortness of breath with exercise but no chest pain. 3. There were no cardiac dysrhythmias pretest, during exercise, or recovery 4. Rest and stress SPECT Cardiolite nuclear imaging demonstrate relative uniform tracer uptake and myocardial perfusion appearing within normal limits. 5. The gated Cardiolite study reports an LVEF of 79%. This note was generated with [employer] software. It may contain incorrect words, spelling, and punctuation that were not noted in checking the note before signing.
== END | disposition home or self-care (01) ==
LOC: CVS 06:49
PROVIDERS: PCP Internal Medicine; Referring Provider Internal Medicine Cardiovascular Disease; Visit Provider Internal Medicine Cardiovascular Disease
DX: R94.31 Abnormal electrocardiogram [ECG] [EKG] (principal); I48.0 Paroxysmal atrial fibrillation; R07.9 Chest pain, unspecified; R06.02 Shortness of breath
CPT/HCPCS: 78452; 93017; A9500; A4216

== ENCOUNTER → 2024-09-17 | Outpatient (CLI) | payer MEDICAID, SELFPAY ==
[2023-04-18 11:48] VITALS: BMI 32.9
--- NOTE | 2024-09-17 12:26 | RAD_ITS ---
PROCEDURE: CHEST PA AND LATERAL 09/17/2024 REASON FOR EXAM: SOB, COUGH TECHNIQUE: Frontal and lateral views of the chest. COMPARISON: 05/10/2024 FINDINGS: Mild increased appearing bilateral perihilar markings may be inflammatory/infectious, possible viral etiology or less likely edema, clinically correlate. No focal consolidation or pleural effusion. The cardiac and mediastinal contours appear within limits. Asymmetric right mid cervical facet hypertrophic changes. Old right- sided rib fracture again noted. RAD/Chest PA and Lateral IMPRESSION: Mild increased appearing bilateral perihilar markings may be inflammatory/infec tious, possible viral etiology or less likely edema, clinically correlate. No focal consolidation or pleural effusion. Reading Location: [id number]
== END | disposition home or self-care (01) ==
LOC: RAD 12:22
PROVIDERS: PCP Internal Medicine; Referring Provider Internal Medicine Pulmonary Disease; Visit Provider Internal Medicine Pulmonary Disease
DX: R05.9 Cough, unspecified (principal)
CPT/HCPCS: 71046

== ENCOUNTER → 2024-09-19 | Outpatient (CLI) | payer MEDICAID, SELFPAY ==
[2023-04-18 11:48] VITALS: BMI 32.9
[2024-09-22 15:08] LABS: Mycoplasma Pneum AB IgG 201 U/mL (0-99); Mycoplasma pneum. AB IgM < 770 U/mL (0-769)
== END | disposition home or self-care (01) ==
PROVIDERS: PCP Internal Medicine; Referring Provider Internal Medicine Pulmonary Disease; Visit Provider Internal Medicine Pulmonary Disease
DX: R06.2 Wheezing (principal); R06.00 Dyspnea, unspecified
CPT/HCPCS: 36415; 86738; 87633

== ENCOUNTER → 2024-09-26 | Outpatient (CLI) | payer MEDICAID, SELFPAY ==
[2023-04-18 11:48] VITALS: BMI 32.9
== END | disposition home or self-care (01) ==
LOC: LABSPEC 11:03
PROVIDERS: PCP Internal Medicine; Referring Provider Internal Medicine Pulmonary Disease; Visit Provider Internal Medicine Pulmonary Disease
DX: J84.113 Idiopathic non-specific interstitial pneumonitis (principal)
CPT/HCPCS: 87070; 87077; 87186; 87205

== ENCOUNTER → 2024-10-21 | Outpatient (CLI) | payer MEDICAID, SELFPAY ==
[2023-04-18 11:48] VITALS: BMI 32.9
[2024-10-21 10:09] LABS: Hematocrit 36.7 % (37-47); Hemoglobin 12.5 g/dL (12.0-15.0); Mean Corp Hgb Conc 34.1 g/dL (32-36); Mean Corpuscular Hgb 31.6 pg (27.0-32.0); Mean Corpuscular Volume 92.7 fL (81-99); Mean Platelet Vol. 10.4 fl (6.2-12.0); Platelet Count 146 K/mm3 (150-450); RBC Distribution Width CV 14.9 % (11.6-14.6); RBC Distribution Width SD 51.2 fl (35.1-43.9); Red Blood Count 3.96 M/mm3 (4.2-5.4); White Blood Count 3.3 K/mm3 (4.4-11.0)
[2024-10-21 14:30] LABS: ALB/GLOB Ratio 1.6 RATIO (0.9-2.4); AST(SGOT) 41 U/L (<=31); Alanine Aminotransfer ALT/SGPT 46 U/L (<=34); Albumin, Serum 4.3 g/dL (3.5-5.0); Alkaline Phosphatase 87 U/L (35-104); Anion Gap 11 (5-15); BUN 12 mg/dL (4-19); BUN/Creat Ratio 16.4 RATIO (10-20); Calcium,Total 9.4 mg/dL (7.6-11.0); Carbon Dioxide 23.6 mmol/L (21.0-32.0); Chloride 101 mmol/L (98-108); Cholesterol 167 mg/dL (<=200); Creatinine, Serum 0.72 mg/dL (0.70-1.20); EST Glomerular Filtration Rate 97 (>60); Globulin 2.8 g/dL (2.2-4.2); Glucose 118 mg/dL (70-99); High Density Lipoprotein 66 mg/dL; Low Density Lipoprotein Calc. 87 mg/dL; Potassium 4.5 mmol/L (3.3-5.1); Protein, Total 7.1 g/dL (5.9-8.4); Sodium Level 136 mmol/L (133-145); Total Bilirubin 0.73 mg/dL (0.00-1.30); Triglycerides 70 mg/dL; Very Low Density Lipoprotein 14 mg/dL (5-40); cholesterol:hdl ratio screen 2.54
== END | disposition home or self-care (01) ==
LOC: LAB 09:22
PROVIDERS: PCP Internal Medicine; Referring Provider Internal Medicine Cardiovascular Disease; Visit Provider Internal Medicine Cardiovascular Disease
DX: R53.83 Other fatigue (principal); E11.9 Type 2 diabetes mellitus without complications; R06.02 Shortness of breath; I25.10 Atherosclerotic heart disease of native coronary artery without angina pectoris; I10 Essential (primary) hypertension; E78.5 Hyperlipidemia, unspecified
CPT/HCPCS: 36415; 80053; 80061; 85027

== ENCOUNTER → 2024-10-28 | Outpatient (CLI) | payer MEDICAID, SELFPAY ==
[2023-04-18 11:48] VITALS: BMI 32.9
== END | disposition home or self-care (01) ==
LOC: LABSPEC 10:39
PROVIDERS: PCP Internal Medicine; Referring Provider Internal Medicine Pulmonary Disease; Visit Provider Internal Medicine Pulmonary Disease
DX: J84.113 Idiopathic non-specific interstitial pneumonitis (principal)
CPT/HCPCS: 87015; 87070; 87116; 87205; 87206

== ENCOUNTER → 2024-10-30 | Outpatient (CLI) | payer MEDICAID, SELFPAY ==
[2023-04-18 11:48] VITALS: BMI 32.9
--- OUTSIDE RECORDS SUMMARY | 2024-10-30 21:31 | XMS RPT_ITS | CCD ---
Author Organization [facility] Care Team Providers Care Zipper Measurer Name Role Phone Unavailable Primary Care Provider Unavailchetna e Opal Mathews MD Primary Care Provider Opal Mathews MD Primary Care Provider Opal Mathews MD Primary Care Provider Dr. Opal Mathews Primary Care Provider Dr. Opal Mathews Referring Provider Jose Juan, Dr. Vargas Attending Provider Jose Juan, Dr. Vargas Referring Provider Jose Juan, Dr. Vargas Other Provider Meg Valentine Attending Provider Unavailable Opal Mathews MD Primary Care Provider Dr. Fabrizio Centeno Attending Provider Dr. Opal Mathews Primary Care Provider Jose Juan, Dr. Vargas Attending Provider Dr. Opal Mathews Referring Provider Dr. Mario Salinas Attending Provider Dr. Opal Mathews Primary Care Provider Jose Juan, Dr. Vargas Referring Provider Jose Juan, Dr. Vargas Other Provider Jose Juan, Dr. Vargas Attending Provider YUNI Casper Referring Provider MD TARAN VENEGAS Referring Provider MD TARAN VENEGAS Other Provider 1([facility])[phone] Kan Mckinnon Attending Provider 1([facility])[phone] Opal Mathews Primary Care Provider 1([facility])[phone] Jose Juan, Dr. Vargas Other Provider Dr. Opal Mathews Primary Care Provider 1([facility])[phone] Dr. Mario Salinas Attending Provider 1([facility])[phone] YUNI Casper Referring Provider 1([facility])[phone] Jose Juan, Dr. Vargas Attending Provider 1([facility])[phone] Gabe, Dr. Joseph Referring Provider 1([facility])[phone] MD TARAN VENEGAS Referring Provider 1([facility])[phone] MD TARAN VENEGAS Other Provider 1([facility])[phone] Jose Juan, Dr. Vargas Other Provider Dr. Kan Mckinnon Attending Provider 1([facility])[phone] Opal Mathews Primary Care Provider 1([facility])[phone] MARYLU CHAUDHARY DO Attending Unavailable MARYLU CHAUDHARY DO Primary Care Unavailable MARYLU CHAUDHARY DO Admitting Unavailable Dr. Opal Mathews Primary Care Provider 1([facility])[phone] Jose Juan, Dr. Vargas Attending Provider 1([facility])[phone] Gabe, Dr. Joseph Primary Care Provider 1([facility])[phone] [phone] Gabe, Dr. Joseph Referring Provider 1([facility])[phone] Jose Juan, Dr. Vargas Attending Provider 1([facility])[phone] Opal Mathews Primary Care Provider 1([facility])[phone] Gabe, Dr. Joseph Referring Provider 1([facility])[phone] Jose Juan, Dr. Vargas Attending Provider 1([facility])[phone] Jose Juan, Dr. Vargas Referring Provider 1([facility])[phone] Jose Juan, Dr. Vargas Other Provider Gabe, Dr. Joseph Primary Care Provider 1([facility])[phone] Ganana, Dr. Joseph Referring Provider Jose Juan, Dr. Vargas Attending Provider Jose Juan, Dr. Vargas Referring Provider Jose Juan, Dr. 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 Joseph Primary Care Provider Dr. Jian Nazario DO Attending Provider Dr. Jian Nazario DO Emergency Provider OLDER SKIVER UPPERS OR LININGS-CSHAHRIAR Attending Provider Remberto KOENIG, Dr. Fuentes Attending Provider Dr. Alfredo Sr MD Emergency Provider Dr. Mike Daley DO Attending Provider Dr. Opal Mathews MD Referring Provider Dr. Mike Daley DO Other Provider Dr. Caden Charles MD Attending Provider Dr. Mike Daley DO Referring Provider Kaya Monroy Attending Provider Kaya Monroy Referring Provider Fernando JERRY-CMaryjane Attending Provider Fernando SKIVER UPPERS OR LININGS-CMaryjane Referring Provider Kaya Monroy Other Provider Jose Juan KOENIG, Dr. Vargas Attending Provider Jose Juna KOENIG, Dr. Vargas Referring Provider Marlon KOENIG, Dr. Lauro Bartholomew Attending Provider Dr. Lauro Mason MD, V Referring Provider Meg Urban Referring Provider Violeta PAMario Attending Provider Violeta PA Mario Referring Provider Dr. Opal Mathews MD Primary Care Provider OLDER SKIVER UPPERS OR LININGS-C, SHAHRIAR Referring Provider Meg Urban Attending Provider Gabe KOENIG, Dr. Joseph Primary Care Provider Kaya Monroy Attending Provider Kaya Monroy Referring Provider Dr. Opal Mathews MD Referring Provider Jose Juan KOENIG, Dr. Vargas Other Provider Dr. Opal Mathews MD Primary Care Provider Dr. Opal Mathews MD Referring Provider CHHAYA CROWE Attending Unavailable GANTA, OPAL Primary Care Unavailable OLDER, SHAHRIAR Attending Unavailable GANTA, OPAL Primary Care Unavailable OLDER, SHAHRIAR Attending Unavailable GANTA, OPAL Primary Care Unavailable GANTA, OPAL Attending Unavailable GANTA, OPAL Primary Care Unavailable GANTA, OPAL Primary Care Unavailable OLDER, SHAHRIAR Attending Unavailable GANTA, OPAL Primary Care Unavailable GANTA, OPAL Referring Unavailable GANTA, OPAL Primary Care Unavailable OLDER, SHAHRIAR Attending Unavailable GANTA, OPAL Primary Care Unavailable GANTA, OPAL Primary Care Unavailable OLDER, SHAHRIAR Attending Unavailable GANTA, OPAL Primary Care Unavailable OLDER, SHAHRIAR Referring Unavailable GANTA, OPAL Primary Care Unavailable GANTA, OPAL Primary Care Unavailable OLDER, SHAHRIAR Attending Unavailable GANTA, OPAL Primary Care Unavailable OLDER, SHAHRIAR Referring Unavailable GANTA, OPAL Primary Care Unavailable GANTA, OPAL Primary Care Unavailable GANTA, OPAL Referring Unavailable GANTA, OPAL Primary Care Unavailable GANTA, OPAL Primary Care Unavailable OLDER, SHAHRIAR Referring Unavailable GANTA, OPAL Primary Care Unavailable OLDER, SHAHRIAR Attending Unavailable GANTA, OPAL Primary Care Unavailable OLDER, SHAHRIAR Attending Unavailable GANTA, OPAL Primary Care Unavailable OLDER, SHAHRIAR Referring Unavailable GANTA, OPAL Primary Care Unavailable Friend, Mike Referring Unavailable Ganta, Opal Primary Care Unavailable Caden Charles Attending Unavailable Kaya Pierce Referring Unavailable Kaya Pierce Attending Unavailable OLDER, SHAHRIAR Primary Care Unavailable Sibilia, Lauro V Attending Unavailable Ganta, Opal Primary Care Unavailable Sibilia, Lauro V Referring Unavailable Friend, Mike Attending Unavailable Ganta, Opal Primary Care Unavailable Jose Juan, Alicia Referring Unavailable Jose Juan, Alicia Attending Unavailable Ganta, Opal Primary Care Unavailable Sibilia, Lauro V Attending Unavailable Ganta, Opal Primary Care Unavailable Sibilia, Lauro V Referring Unavailable Kaya Pierce Referring Unavailable Kaya Pierce Attending Unavailable OLDER, SHAHRIAR Primary Care Unavailable Wartmann, Christopher Referring Unavailabl e Wartmann, Christopher Attending Unavailabl e Ganta, Opal Primary Care Unavailable Friend, Mike Attending Unavailable Ganta, Opal Primary Care Unavailable Ganta, Opal Referring Unavailable Sibilia, Lauro V Attending Unavailable Ganta, Opal Primary Care Unavailable Sibilia, Lauro V Referring Unavailable Sibilia, Lauro V Attending Unavailable Ganta, Opal Primary Care Unavailable Kaya Pierce Referring Unavailable Kaya Pierce Attending Unavailable Ganta, Opal Primary Care Unavailable OLDER, SHAHRIAR Referring Unavailable OLDER, SHAHRIAR Attending Unavailable Ganta, Opal Primary Care Unavailable Kaya Pierce Referring Unavailable Ganta, Opal Primary Care Unavailable Kaya Pierce Attending Unavailable Jian Nazario Attending Unavailable Ganta, Opal Primary Care Unavailable Alfredo Sr Attending Unavailable Ganta, Opal Primary Care Unavailable Jose Juan, Alicia Referring Unavailable Jose Juan, Alicia Attending Unavailable Ganta, Opal Primary Care Unavailable OLDER, SHAHRIAR Primary Care Unavailable Fernando SKIVER UPPERS OR LININGS, Maryjane Referring Unavailable Fernando SKIVER UPPERS OR LININGS, Maryjane Attending Unavailable Jose Juan, Alicia Referring Unavailable Jose Juan, Alicia Attending Unavailable Ganta, Opal Primary Care Unavailable Kaya Pierce Consulting Unavailable Fernando SKIVER UPPERS OR LININGSMaryjane Referring Unavailable Fernando SKIVER UPPERS OR LININGS, Maryjane Attending Unavailable Ganta, Opal Primary Care Unavailable Sibilia, Lauro V Attending Unavailable Ganta, Opal Primary Care Unavailable Sibilia, Lauro V Referring Unavailable Meg Urban Referring Unavail able Meg Urban Attending Unavail able Ganta, Opal Primary Care Unavailable Jose Juan, Alicia Consulting Unavailable Jose Juan, Alicia Referring Unavailable Jose Juan, Alicia Attending Unavailable Ganta, Opal Primary Care Unavailable Sibilia, Lauro V Attending Unavailable Ganta, Opal Primary Care Unavailable Jose Juan, Alicia Attending Unavailable Ganta, Opal Primary Care Unavailable Ganta, Opal Referring Unavailable Jose Juan, Alicia Attending Unavailable Ganta, Opal Primary Care Unavailable Ganta, Opal Referring Unavailable AtanasovKaya Attending Unavailable OLDER, SHAHRIAR Referring Unavailable Ganta, Opal Primary Care Unavailable OLDER, SHAHRIAR Referring Unavailable OLDER, SHAHRIAR Primary Care Unavailable Meg Urban Attending Unavail able AtanasovKaya Attending Unavailable OLDER, SHAHRIAR Referring Unavailable OLDER, SHAHRIAR Primary Care Unavailable OLDER, SHAHRIAR Referring Unavailable Meg Urban Attending Unavail able Ganta, Opal Primary Care Unavailable AtanasovKaya Attending Unavailable Ganta, Opal Primary Care Unavailable Ganta, Opal Referring Unavailable Friend, Mike Consulting Unavailable Ganta, Opal Primary Care Unavailable Friend, Mike Attending Unavailable Ganta, Opal Referring Unavailable Jose Juan, Alicia Referring Unavailable Jose Juan, Alicia Attending Unavailable Ganta, Opal Primary Care Unavailable Mcdaniel, Mario Referring Unavailable Mcdaniel, Mario Attending Unavailable Sibilia, Lauro V Attending Unavailable Ganta, Opal Primary Care Unavailable Sibilia, Lauro V Referring Unavailable GERMAINEMALLY BACA A Attending Unavailable GANTA, OPAL C Referring Unavailable GANTA, OPAL C Primary Care Unavailable LIANNA, JOSÉ MANUEL N Attending Unavailable GANTA, OPAL C Referring Unavailable GANTA, OPAL C Primary Care Unavailable Allergies Allergy Classification Reported Allergen(s) Allergy Type Date of Onset Reaction(s) Facility cantaloupe allergenic extract (1 source) cantaloupe allergenic extract Drug Allergy 9 Angioedema [facility] Work Phone: Quinolones (antibiotic) (1 source) levoFLOXacin Drug Allergy 1 Rash [facility] Sulfonamides (antibiotic) (1 source) Sulfonamides (Antibiotic) Drug Allergy 9 Hives [facility] (20 sources) cantaloupe allergenic extract; Translations: [CANTALOUPE] Drug Allergy 9 Angioedema [facility] Work Phone: (20 sources) levoFLOXacin; Translations: [LEVOFLOXACIN] Drug Allergy 1 Rash [facility] (20 sources) Sulfonamides (Antibiotic); Translations: [SULFA (SULFONAMIDE ANTIBIOTICS)] Drug Allergy 9 Hives [facility] (20 sources) Sulfonamides (Antibiotic) Allergy to substance 1 [facility] (1 source) levoFLOXacin Drug Allergy [facility] (1 source) Sulfonamides (Antibiotic) Drug allergy (disorder) [facility] (2 sources) cantaloupe allergenic extract Drug Allergy 9 Anaphylaxis [facility] (9 sources) dilTIAZem Drug Allergy 5 Hypotension, lightheaded and dizzy [facility] (1 source) dilTIAZem Drug Allergy 5 [facility] (1 source) levoFLOXacin Drug Allergy 5 [facility] (1 source) Sulfonamides (Antibiotic) Drug allergy (disorder) 5 [facility] Medications Current Medications Medication Drug Class(es) Dates Sig (Normalized) Sig (Original) [id number] 200 actuat albuterol 0.09 mg/actuat metered dose inhaler (2 sources) beta2-Adrenergic Agonist Start: 10-20-2024 Albuterol Sulfate (Ventolin Hfa) 90 mcg/actuation HFA aerosol inhaler Active 2 NMA INHALATION October 20, 2024 12:00am amLODIPine 5 mg oral tablet (20 sources) Dihydropyridine Calcium Channel Oriana Start: 07-28-2024 take 1 tablet by mouth once daily Amlodipine 5 mg tablet Active 5 mg PO daily July 28, 2024 12:00am Start: 08-17-2022 End: 09-27-2023 take 1 tablet by mouth once daily Amlodipine 5 mg tablet Discontinued 5 mg PO DAILY March 15, 2023 1:28pm March 21, 2023 2:10pm Start: 06-15-2022 End: 01-24-2023 take 1 tablet by mouth once daily Amlodipine 2.5 mg tablet Discontinued 2.5 mg PO DAILY August 04, 2022 12:00am January 24, 2023 10:46am Comment on above: Take 1 tablet by presley th once daily. take 1 tablet by presley th once daily apixaban 5 mg oral tablet (20 sources) Factor Xa Inhibitor Start: 05-12-2024 take 1 tablet by mouth twice daily Apixaban (Eliquis) 5 mg tablet Active 5 mg PO TWICE A DAY May 12, 2024 1:00am Start: 09-27-2023 End: 09-27-2023 5 mg, Oral, EVERY 12 HOURS, First dose (after last modification) on Tere 09/27/23 at 1500, Until Discontinued, Due to the rapid onset of action of apixaban, no overlap is needed with other anticoagulants (e.g. enoxaparin, heparin)., Indications: Atrial Fibrillation, Post-op/Post-Proc Start: 02-27-2023 End: 05-10-2024 take 1 tablet by mouth twice daily Apixaban (Eliquis) 5 mg tablet Discontinued 5 mg PO TWICE A DAY April 07, 2024 12:19pm May 10, 2024 10:45pm Comment on above: Take 5 mg by mouth t wo times a day. aspirin 81 mg delayed release oral tablet (20 sources) Platelet Aggregation Inhibitor, Nonsteroidal Anti-inflammatory Drug Start: 04-15-2024 take 1 tablet by mouth once daily Aspirin (Adult Aspirin Regimen) 81 mg tablet,delayed release (DR/EC) Active 81 mg PO DAILY April 15, 2024 1:00am Start: 11-16-2022 End: 03-15-2023 take 1 tablet by mouth once daily Aspirin 81 mg tablet,delayed release (DR/EC) Discontinued 81 mg PO DAILY November 16, 2022 12:00am March 15, 2023 11:50am azithromycin 250 mg oral tablet (3 sources) Macrolide Antimicrobial Start: 07-21-2022 End: 07-26-2022 azithromycin (ZITHROMAX Z-JIGNESH) 250 mg tablet Take 2 tablets day one, then, 1 tablet daily until gone. 30 tablet 5 07/21/2022 07/26/2022 Active Comment on above: Take 2 tablets day o ne, then, 1 tablet daily until gone. betamethasone 0.0005 mg/mg topical ointment (1 source) Corticosteroid Start: 10-12-2022 End: 10-26-2022 betamethasone dipropionate 0.05 % ointment Indications: Vulvar itching , Vulvar candidiasis Apply to affected area twice daily for 14 days. 15 g 1 10/12/2022 10/26/2022 Active Comment on above: Apply to affected ar ea twice daily for 14 days. Blood-Glucose Meter (20 sources) Start: 04-13-2020 Blood-Glucose Meter Indications: Type 2 diabetes mellitus without complication, without long-term current use of insulin ([facility]) Dispense 1 kit 1 Each 04/13/2020 Active Start: 04-13-2020 Blood-Glucose Meter Indications: Type 2 diabetes mellitus without complication, without long-term current use of insulin ([facility]) Dispense 1 kit 1 Each 0 04/13/2020 Active Comment on above: Dispense 1 kit 24 hr buPROPion hydrochloride 150 mg extended release oral tablet (20 sources) Aminoketone Start: End: take 1 tablet by mouth once daily in the morning Bupropion Hcl 150 mg tablet extended release 24 hr Active 150 mg PO EVERY MORNING February 13, 2024 12:00am carvedilol 25 mg oral tablet (20 sources) alpha-Adrenergic Oriana, beta-Adrenergic Oriana Start: 5 End: 5 take 1 tablet by mouth twice daily Carvedilol 25 mg tablet Active 25 mg PO TWICE A DAY 180 August 18, 2024 8:45am Start: 04-15-2024 End: 06-30-2024 Carvedilol 25 mg tablet Discontinued 12.5 mg PO .COMPLEX April 15, 2024 12:48pm June 30, 2024 4:41pm 12.5 mg orally in the AM and *25mg (1 tab) at HS* Start: 04-01-2024 End: 04-15-2024 take 1 tablet by mouth twice daily at bedtime Carvedilol 25 mg tablet Discontinued 12.5 mg PO TWICE A DAY April 15, 2024 12:25pm April 15, 2024 12:48pm must administer with a meal/food. *25mg (1 tab) at HS* Start: 10-31-2023 End: 04-01-2024 Carvedilol 25 mg tablet Discontinued 12.5 mg PO TWICE A DAY October 31, 2023 10:55am April 01, 2024 12:05pm must administer with a meal/food Start: 08-16-2023 End: 10-31-2023 take 1 tablet by mouth twice daily at mealtime Carvedilol 25 mg tablet Discontinued 25 mg PO TWICE A DAY 180 August 16, 2023 12:00am October 31, 2023 10:57am must administer with a meal/food Start: 07-06-2023 End: 08-16-2023 take 1 tablet by mouth twice daily at mealtime Carvedilol 12.5 mg tablet Discontinued 12.5 mg PO TWICE A DAY 180 July 06, 2023 2:05pm August 16, 2023 3:24pm must administer with a meal/food. Start: 02-27-2023 End: 07-06-2023 take 1 tablet by mouth twice daily at mealtime Carvedilol 25 mg tablet Discontinued 25 mg PO TWICE A DAY 180 May 01, 2023 5:28pm July 06, 2023 2:05pm must administer with a meal/food. Start: 11-16-2022 End: 03-15-2023 take 1 tablet by mouth twice daily at mealtime Carvedilol 12.5 mg tablet Discontinued 12.5 mg PO TWICE A DAY 180 November 28, 2022 3:30pm March 15, 2023 11:50am must administer with a meal/food Start: 08-08-2022 End: 09-27-2023 take 1 tablet by mouth twice daily at mealtime Carvedilol 6.25 mg tablet Discontinued 6.25 mg PO TWICE A DAY 60 August 08, 2022 12:00am November 16, 2022 3:27pm must administer with a meal/food End: 01-17-2024 take 4 tablets by mouth twice daily at mealtime carvedilol (COREG) 6.25 mg tablet Take 25 mg by mouth two times a day with meals. 01/17/2024 Discontinued Comment on above: Take 6.25 mg by mout h twice daily with meals. Take 25 mg by mouth two times a day with meals. cefdinir 300 mg oral capsule (12 sources) Cephalosporin Antibacterial Start: 10-05-2023 End: 10-12-2023 take 1 capsule by mouth twice daily cefdinir (OMNICEF) 300 mg capsule Take 1 capsule by mouth two times a day for 7 days. 14 capsule 0 10/05/2023 10/12/2023 Active Start: 08-16-2023 End: 10-31-2023 take 1 capsule by mouth every twelve hours Cefdinir 300 mg capsule Discontinued 300 mg PO Q12H August 16, 2023 12:00am October 31, 2023 10:56am cephalexin 500 mg oral capsule (20 sources) Cephalosporin Antibacterial Start: 08-19-2024 End: 08-24-2024 take 1 capsule by mouth four times daily cephALEXin (KEFLEX) 500 mg capsule Take 1 capsule by mouth four times daily for 5 days. 20 capsule 08/19/2024 08/24/2024 Active Start: 12-31-2022 End: 01-22-2023 take 1 capsule by mouth every twelve hours Cephalexin 500 mg capsule Discontinued 500 mg PO EVERY 12 HOURS 14 December 31, 2022 12:00am January 22, 2023 9:40am Start: 03-17-2022 End: 03-27-2022 take 1 capsule by mouth four times daily cephALEXin (KEFLEX) 500 mg capsule Take 1 capsule by mouth four times daily for 10 days. 40 capsule 0 03/17/2022 03/27/2022 Active Start: 02-24-2022 End: 03-03-2022 take 1 capsule by mouth twice daily cephALEXin (KEFLEX) 500 mg capsule Take 1 capsule by mouth twice daily for 7 days. 14 capsule 0 02/24/2022 03/03/2022 Active Comment on above: Take 1 capsule by mo [facility] twice daily for 7 days. Take 1 capsule by mo [facility] four times daily for 10 days. citalopram 40 mg oral tablet (20 sources) Serotonin Reuptake Inhibitor Start: 05-10-2024 take 1 tablet by mouth once daily Citalopram 40 mg tablet Active 40 mg PO DAILY May 10, 2024 1:00am Start: 2023 End: 03-18-2024 take 1 tablet by mouth once daily citalopram (CELEXA) 40 mg tablet Take 1 tablet by mouth once daily. 90 tablet 1 03/19/2024 Active Start: 05-15-2020 End: 09-27-2023 take 1 tablet by mouth once daily citalopram (CELEXA) 20 mg tablet Take 1 tablet by mouth once daily. 30 tablet 5 06/16/2021 01/19/2022 Discontinued Comment on above: Take 1 tablet by presley th once daily. take 1 tablet by presley th once daily clotrimazole 10 mg/ml topical cream (1 source) Azole Antifungal Start: 10-12-2022 End: 10-26-2022 clotrimazole (LOTRIMIN) 1 % cream Indications: Vulvar itching , Vulvar candidiasis Apply to affected area twice daily for 14 days. 28 g 1 10/12/2022 10/26/2022 Active Comment on above: Apply to affected ar ea twice daily for 14 days. [id number] 0.3 ml EPINEPHrine 1 mg/ml auto-injector (20 sources) alpha-Adrenergic Agonist, beta-Adrenergic Agonist, Catecholamine Start: 08-04-2022 Epinephrine 0.3 mg/0.3 mL auto-injector Active 0.3 mg IM ONCE August 04, 2022 12:00am as a single dose; may repeat once Start: 06-16-2021 EPINEPHrine (E PIPEN) 0.3 mg/0.3 mL auto-injector Use per directed for severe allergic reaction 2 Each 1 06/16/2021 Active EPINEPHrine 0.3 MG/0.3ML Solution Auto-injector injection Inject 0.3 mL intramuscularly as needed. Inject contents of 1 autoinjector (0.3 mg) into thigh for allergic reactions (hives, lip/tongue/throat swelling, breathing trouble, lightheadedness, passing out or other symptoms of an allergic reaction) and seek medical attention immediately. If symptoms do not resolve after 5 min and still awaiting medical care, inject contents of a second autoinjector. Active Comment on above: Use per directed for severe allergic reaction ferrous sulfate 325 mg oral tablet (20 sources) Start: 07-17-2024 take 1 tablet by mouth twice daily at mealtime ferrous sulfate 325 mg (65 mg iron) tablet Take 1 tablet by mouth two times a day with meals. 60 tablet 1 07/17/2024 Active Start: 04-15-2024 take 1 tablet by presley th twice daily Ferrous Sulfate (Ferosul) 325 mg (65 mg iron) tablet Active 325 mg PO TWICE A DAY April 15, 2024 1:00am Start: 09-10-2023 End: 05-14-2024 take 1 tablet by mouth twice daily at mealtime ferrous sulfate 325 mg (65 mg iron) tablet Take 1 tablet by mouth two times a day with meals. 60 tablet 1 05/14/2024 Active Start: 07-13-2023 End: 09-07-2023 take 1 tablet by mouth twice daily at mealtime ferrous sulfate 325 mg (65 mg iron) tablet Take 1 tablet by mouth two times a day with meals. 60 tablet 1 07/13/2023 09/07/2023 Discontinued Comment on above: Take 1 tablet by presley th two times a day with meals. fluconazole 150 mg oral tablet (2 sources) Azole Antifungal Start: 09-14-2022 End: 09-14-2022 fluconazole (DIFLUCAN) 150 mg tablet Take 1 tablet by mouth one time only for 1 dose. Repeat in 3 days as needed. 2 tablet 0 09/14/2022 09/14/2022 Active Start: 01-27-2022 End: 01-27-2022 fluconazole (DIFLUCAN) 150 m g tablet Take 1 tablet by mouth one time only for 1 dose. Repeat in 3 days as needed. 2 tablet 0 01/27/2022 01/27/2022 Active Comment on above: Take 1 tablet by presley one time only for 1 dose. Repeat in 3 days as needed. fluticasone propionate 0.05 mg/actuat metered dose nasal spray (20 sources) Corticosteroid Start: 3 End: 3 take 2 spray(s) nasal route once daily fluticasone (FLONASE) 50 mcg/actuation nasal spray Use 2 Sprays in each nostril once daily. 1 Each 3 11/20/2022 03/20/2023 Discontinued Start: 08-31-2021 End: 11-17-2022 take 2 spray(s) nasal route once daily fluticasone (FLONASE) 50 mcg/actuation nasal spray Use 2 Sprays in each nostril once daily. 1 Each 3 08/31/2021 11/17/2022 Discontinued Start: 05-15-2020 End: 06-18-2023 Fluticasone Propionate 1 SPR AY spray,suspension Active 2 NMA NASAL DAILY as needed for allergy symptoms May 15, 2020 1:00am Start: 05-15-2020 Fluticasone Pr opionate Active 2 SPRAY NASAL DAILY May 15, 2020 1:00am Start: 12-31-2018 fluticasone (F LONASE) 50 mcg/actuation nasal spray 2 Sprays once daily. 0 12/31/2018 Active fluticasone 50 M CG/ACT Suspension nasal spray 2 sprays by Nasal route daily. Active Comment on above: 2 Sprays once daily. Use 2 Sprays in each nostril once daily. instill 2 sprays int o each nostril once daily hydroxychloroquine sulfate 200 mg oral tablet (20 sources) Antimalarial, Antirheumatic Agent Start: 2023 take 1 tablet by mouth twice daily Hydroxychloroquine 200 mg tablet Active 200 mg PO TWICE A DAY April 15, 2024 1:00am Start: 12-05-2023 take 1 tablet by [facility] once daily hydrOXYchloroQUINE (PLAQUENIL) 200 mg tablet Take 200 mg by mouth once daily. 12/05/2023 Active 24 hr isosorbide mononitrate 30 mg extended release oral tablet (20 sources) Nitrate Vasodilator Start: 06-02-2024 take 1 tablet by mouth once daily in the morning, then take 1 tablet by mouth every twenty-four hours Isosorbide Mononitrate 30 mg tablet extended release 24 hr Active 30 mg PO EVERY MORNING June 02, 2024 11:14am Start: 06-05-2023 End: 05-21-2024 take 1 tablet by mouth once daily in the morning, then take 1 tablet by mouth every twenty-four hours Isosorbide Mononitrate 30 mg tablet extended release 24 hr Discontinued 30 mg PO EVERY MORNING June 05, 2023 1:00am May 21, 2024 10:04am Comment on above: Take 30 mg by mouth every morning. 200 actuat levalbuterol 0.045 mg/actuat metered dose inhaler (20 sources) beta2-Adrenergic Agonist Start: 10-04-202 1 take 1-2 puff(s) by inhalation every four hours as needed levalbuterol tartrate HFA (XOPENEX HFA) 45 mcg/actuation inhaler Inhale 1-2 Puffs as instructed every 4 hours as needed. 1 Inhaler 2 02/07/2021 Active Start: 05-15-2020 Levalbuterol T artrate 15 GM HFA aerosol inhaler Active 15 g IH EVERY 4 HOURS NEEDED as needed for Shortness Of Breath May 15, 2020 1:00am take 1 puff(s) by in halation every six hours as needed levalbuterol 45 MCG/ACT Aerosol inhaler Inhale 1 puff every 6 hours as needed for Shortness of Breath. Active Comment on above: Inhale 1-2 Puffs as instructed every 4 hours as needed. 24 hr metFORMIN hydrochloride 500 mg extended release oral tablet (20 sources) Biguanide Start: 08-08-2022 End: 08-07-2024 Metformin 500 mg tablet extended release 24 hr Active 1000 mg PO TWICE A DAY August 08, 2022 1:49pm Start: 06-19-2022 End: 01-17-2024 take 2 tablets by mouth twice daily at mealtime metFORMIN ER (GLUCOPHAGE XR) 500 mg 24 hr tablet Indications: Type 2 diabetes mellitus without complication, without long-term current use of insulin (HCC) Take 2 tablets by mouth two times a day with meals. 360 tablet 1 01/17/2024 Active Start: 06-15-2022 take 2 tablets by mo ut twice daily, then take 1 tablet by mouth once daily in the morning, then take 2 tablets by mouth once daily at mealtime metFORMIN ER (GLUCOPHAGE XR) 500 mg 24 hr tablet Indications: Type 2 diabetes mellitus without complication, without long-term current use of insulin (HCC) Take 2 tablets by mouth twice daily. take 1 tablet by mouth every morning and 2 tablets by mouth every evening with meals 360 tablet 1 06/15/2022 Active Start: 05-15-2020 End: 08-08-2022 take 1 tablet by mouth once daily Metformin 500 MG tablet extended release 24 hr Discontinued 500 mg PO DAILY May 15, 2020 1:00am August 08, 2022 1:50pm take 2 tablets by mo uth twice daily at mealtime metFORMIN 500 MG tablet Take 2 tablets by mouth 2 times daily with meals. Active Comment on above: take 1 tablet by [facility] every morning and 2 tablets every evening with meals take 1 tablet by [facility] every morning and 2 tablets by mouth every evening with meals Take 2 tablets by mo ut twice daily. take 1 tablet by mouth every morning and 2 tablets by mouth every evening with meals Take 2 tablets by mo ut twice daily with meals. take 2 tablets by mo [facility] twice a day with meals montelukast 10 mg oral tablet (20 sources) Leukotriene Receptor Antagonist Start: 05-15-19 End: 08-08-19 take 1 tablet by mouth once daily Montelukast 10 MG tablet Active 10 mg PO DAILY May 15, 2020 1:00am Comment on above: Take 1 tablet by [facility] once daily. take 1 tablet by [facility] once daily mupirocin 0.02 mg/mg topical ointment (2 sources) RNA Synthetase Inhibitor Antibacterial Start: 03-12-20 End: 03-22-20 mupirocin (BACTROBAN) 2 % ointment Indications: Chronic sinusitis, unspecified location Apply to affected area three times a day for 10 days. 22 g 1 03/12/2023 03/22/2023 Active Comment on above: Apply to affected ar ea three times a day for 10 days. nitrofurantoin, macrocrystals 25 mg / nitrofurantoin, monohydrate 75 mg oral capsule (7 sources) Nitrofuran Antibacterial Start: 10-03-19 24 take 1 capsule by mouth twice daily nitrofurantoin monohydrate and macrocrystal (MACROBID) 100 mg capsule Take 1 capsule by mouth two times a day. 14 capsule 0 10/03/2023 Active Start: 02-14-2022 End: 02-21-2022 take 1 capsule by mouth twice daily at mealtime nitrofurantoin monohydrate and macrocrystal (MACROBID) 100 mg capsule Indications: UTI symptoms Take 1 capsule by mouth twice daily with meals for 7 days. 10 capsule 0 02/14/2022 02/21/2022 Active Start: 10-10-2021 End: 10-15-2021 take 1 capsule by mouth twice daily nitrofurantoin monohydrate and macrocrystal (MACROBID) 100 mg capsule Indications: Frequency of urination Take 1 capsule by mouth twice daily for 5 days. 10 capsule 10/10/2021 10/15/2021 Comment on above: Take 1 capsule by mo [facility] twice daily for 5 days. Take 1 capsule by [facility] twice daily with meals for 7 days. nitroglycerin 0.4 mg sublingual tablet (20 sources) Nitrate Vasodilator Start: 12-27-2022 Nitroglycerin 0.4 mg Tablet, Sublingual Active 0.4 mg SL Q5M as needed for Cardiac/Chest Pain December 27, 2022 12:00am Start: 12-27-2022 nitroGLYCERIN 0.[address] 1 tablet under the tongue if needed every 5 minutes for sofie... (REFER TO PRESCRIPTION NOTES). 02/13/2023 Active pantoprazole 40 mg delayed release oral tablet (9 sources) Proton Pump Inhibitor Start: 06-18-2024 take 1 tablet by mouth once daily Pantoprazole 40 mg tablet,delayed release (DR/EC) Active 40 mg PO daily 60 June 18, 2024 1:00am perflutren lipid microspheres 1.3 mL in NaCl (PF) 0.9% 10 mL injection (DEFINITY) (20 sources) Start: 06-15-2022 End: 09-15-2023 perflutren lipid microspheres 1.3 mL in NaCl (PF) 0.9% 10 mL injection (DEFINITY) tobramycin 40 mg/ml injectable solution (2 sources) Aminoglycoside Antibacterial Start: 10-20-2024 take 160 mg by inhalation twice daily Tobramycin Sulfate 40 mg/mL solution Active 160 mg INHALATION TWICE A DAY October 20, 2024 12:00am Completed/Discontinued Medications Medication Drug Class(es) Dates Sig (Normalized) Sig (Original) acetaminophen 325 mg oral tablet (1 source) Start: 09-27-2023 End: 09-27-2023 take 1 tablet by mouth every six hours as needed 650 mg, Oral, EVERY 6 HOURS NEEDED, Starting on Tere 09/27/23 at 1042, Until Tere 09/27/23 at 1721, Mild Pain, Maximum dose of acetaminophen is 4000 mg from all sources in 24 hours., Post-op/Post-Proc aluminum hydroxide 40 mg/ml / magnesium hydroxide 40 mg/ml / simethicone 4 mg/ml oral suspension (1 source) Start: 09-27-2023 End: 09-27-2023 take 30 mL by mouth every six hours as needed 30 mL, Oral, EVERY 6 HOURS NEEDED, Starting on Tere 09/27/23 at 1042, Until Tere 09/27/23 at 1721, Indigestion, Per 5 mL is equivalent to: (Alum-Mag Hydroxide 200-225 mg and Simethicone 20 mg) and (Alum-Mag Hydroxide 200-200 mg and Simethicone 20 mg), Post-op/Post-Proc amoxicillin 875 mg / clavulanate 125 mg oral tablet (20 sources) Penicillin-class Antibacterial Start: 04-15-2024 End: 05-10-2024 Amoxicillin-Pot Clavulanate 875-125 mg tablet Discontinued 1 {tbl} PO TWICE A DAY April 15, 2024 1:00am May 11, 2024 12:02am Start: 01-31-2023 End: 02-05-2023 take 1 tablet by mouth twice daily amoxicillin-clavulanic acid (AUGMENTIN) 875-125 mg per tablet Indications: URI, acute Take 1 tablet by mouth twice daily for 5 days. 10 tablet 0 01/31/2023 02/05/2023 Active Start: 12-09-2022 End: 12-17-2022 amoxicillin-clavulanic acid (AUGMENTIN) 875-125 mg per tablet Take 1 tablet by mouth twice daily for 3 days. Start after current augmentin regimen is completed for a full 10 days of treatment. 6 tablet 0 12/14/2022 12/17/2022 Active Start: 09-04-2022 End: 09-14-2022 take 1 tablet by mouth twice daily amoxicillin-clavulanic acid (AUGMENTIN) 875-125 mg per tablet Take 1 tablet by mouth twice daily for 10 days. 20 tablet 0 09/04/2022 09/14/2022 Active Start: 08-17-2022 End: 08-27-2022 take 1 tablet by mouth twice daily amoxicillin-clavulanic acid (AUGMENTIN) 875-125 mg per tablet Take 1 tablet by mouth twice daily for 10 days. 20 tablet 0 08/17/2022 08/27/2022 Active Start: 04-17-2022 End: 04-26-2022 take 1 tablet by mouth twice daily amoxicillin-clavulanic acid (AUGMENTIN) 875-125 mg per tablet Take 1 tablet by mouth twice daily for 7 days. 14 tablet 04/17/2022 04/26/2022 Discontinued Start: 01-19-2022 End: 01-26-2022 take 1 tablet by mouth twice daily amoxicillin-clavulanic acid (AUGMENTIN) 875-125 mg per tablet Take 1 tablet by mouth twice daily for 7 days. 14 tablet 0 01/19/2022 01/26/2022 Active Comment on above: Take [address] [facility] twice daily for 7 days. Take [address] [facility] twice daily for 10 days. Take [address] [facility] twice daily for 3 days. Start after current augmentin regimen is completed for a full 10 days of treatment. Take [address] [facility] twice daily for 5 days. benzonatate 100 mg oral capsule (20 sources) Non-narcotic Antitussive Start: End: take 2 capsules by mouth three times daily as needed for cough Benzonatate 100 mg capsule Discontinued 200 mg PO THREE TIMES A DAY as needed for cough April 15, 2024 1:00am May 12, 2024 12:39pm Start: 04-29-2023 End: 05-10-2024 take 1 capsule by mouth three times daily as needed for cough Benzonatate 200 mg capsule Discontinued 200 mg PO THREE TIMES A DAY as needed for cough April 29, 2023 1:00am May 10, 2024 11:59pm Start: 02-07-2022 End: 06-26-2022 take 2 capsules by mouth three times daily as needed for cough benzonatate (TESSALON PERLES) 100 mg capsule Indications: Suspected COVID-19 virus infection Take 2 capsules by mouth three times daily as needed for cough. 60 capsule 02/07/2022 06/26/2022 Discontinued (Discontinued by Patient) Comment on above: Take 2 capsules by m outh three times daily as needed for cough. Take 2 capsules by m outh three times a day as needed for cough. betamethasone 0.5 mg/ml / clotrimazole 10 mg/ml topical cream (20 sources) Azole Antifungal, Corticosteroid Start: 05-15-2020 End: 08-04-2022 Clotrimazole-Betamethas one 1 APPLIC cream Discontinued 1 NMA TOPICAL TWICE A DAY May 15, 2020 1:00am August 04, 2022 10:24am Start: 05-15-2020 End: 08-04-2022 Clotrimazole-Betamethasone D iscontinued 1 APPLIC TOPICAL TWICE A DAY May 15, 2020 1:00am August 04, 2022 10:24am budesonide 0.5 mg/ml inhalation suspension (20 sources) Corticosteroid Start: 02-07-2021 End: 04-25-2024 take 0.5 mg by inhalation twice daily as needed Budesonide (Pulmicort) 1 mg/2 mL suspension for nebulization Discontinued 0.5 mg INHALATION TWICE A DAY as needed for sob January 24, 2023 10:22am October 31, 2023 10:57am take 4 mL by inhalation twice da carmen budesonide 0.5 MG/2ML nebulizer suspension Inhale 4 mL 2 times daily. Active Comment on above: INSTILL RESPULE IN N SKYLAR SALINE WASHES AND USE TWICE DAILY instill contents of 1 vial IN NASAL SALINE WASHES AND USE TWICE DAILY clopidogrel 75 mg oral tablet (20 sources) [id number] Platelet Inhibitor Start: End: take 1 tablet by mouth once daily Clopidogrel 75 mg tablet Discontinued 75 mg PO DAILY May 10, 2024 1:00am May 12, 2024 12:38pm On Hold: Pt is ill Start: 01-24-2023 clopidogrel (P LAVIX) 75 mg tablet take 4 tablets by mouth on day 1 then 1 tablet by mouth once daily after 01/24/2023 Active Start: 01-24-2023 End: 04-15-2024 take 1 tablet by mouth once daily Clopidogrel (Plavix) 75 mg tablet Discontinued 75 mg PO DAILY March 12, 2024 11:17am April 15, 2024 12:40pm Comment on above: take 4 tablets by mo uth on day 1 then 1 tablet by mouth once daily after 24 hr dilTIAZem hydrochloride 120 mg extended release oral capsule (20 sources) Calcium Channel Oriana Start: End: take 1 capsule by mouth every twenty-four hours, then take 1 capsule by mouth every twenty-four hours Diltiazem Hcl (Cartia Xt) 120 mg capsule,extended release 24hr Discontinued 120 mg PO Q24H May 10, 2024 1:00am May 12, 2024 12:40pm Start: 11-23-2023 End: 01-15-2024 take 1 capsule by mouth once daily Diltiazem Hcl 120 mg capsule,extended release 24hr Discontinued 120 mg PO DAILY November 23, 2023 12:00am January 15, 2024 1:12pm Start: 07-04-2023 End: 10-31-2023 Diltiazem Hcl 120 mg capsule ,extended release 24hr Discontinued 120 mg PO .COMPLEX 60 July 06, 2023 2:08pm October 31, 2023 11:27am 120 mg orally daily NEEDED for HR 120 or greater; or Systolic BP 140 or greater. Start: 05-16-2023 End: 07-04-2023 take 1 capsule by mouth twice daily Diltiazem Hcl 120 mg capsule,extended release 24hr Discontinued 120 mg PO TWICE A DAY 60 May 16, 2023 1:00am July 04, 2023 5:34pm Start: 03-21-2023 End: 09-27-2023 take 1 capsule by mouth once daily, then take 1 capsule by mouth every twenty-four hours Diltiazem Hcl (Cardizem Cd) 180 mg capsule,extended release 24hr Discontinued 180 mg PO DAILY March 21, 2023 1:00am May 16, 2023 10:10am Start: 03-21-2023 End: 03-21-2023 take 1 capsule by mouth once daily, then take 1 capsule by mouth every twenty-four hours Diltiazem Hcl (Cartia Xt) 120 mg capsule,extended release 24hr Discontinued 120 mg PO DAILY March 21, 2023 1:00am March 21, 2023 2:32pm End: 02-14-2024 take 1 capsule by mouth twice daily, then take 1 capsule by mouth twice daily dilTIAZem CD (CARDIZEM CD) 180 mg 24 hr capsule Take 120 mg by mouth two times a day. 120 mg BID 02/14/2024 Discontinued Comment on above: Take 180 mg by mouth once daily. Take 120 mg by mouth two times a day. 120 mg BID doxycycline hyclate 100 mg oral tablet (20 sources) Tetracycline-cla ss Drug Start: 02-21-2023 End: 10-24-2023 take 1 tablet by mouth twice daily Doxycycline Hyclate 100 mg tablet Discontinued 100 mg PO TWICE A DAY February 21, 2023 12:00am February 27, 2023 6:20pm Start: 12-20-2022 End: 12-27-2022 take 1 tablet by mouth twice daily doxycycline (VIBRA-TABS) 100 mg tablet Take 1 tablet by mouth twice daily for 7 days. 14 tablet 0 12/20/2022 12/27/2022 Active Comment on above: Take [address] [facility] twice daily for 7 days. hydroCHLOROthiazide 12.5 mg oral tablet (20 sources) Thiazide Diuretic Start: End: take 1 tablet by mouth once daily Hydrochlorothiazide 12.5 mg tablet Discontinued 12.5 mg PO daily June 30, 2024 1:00am August 14, 2024 4:47pm On Hold: None Start: 05-15-2020 End: 09-27-2023 take 1 tablet by mouth once daily Hydrochlorothiazide 25 MG tablet Discontinued 25 mg PO DAILY May 15, 2020 1:00am March 21, 2023 2:10pm Comment on above: Take [address] [facility] once daily. take [address] [facility] once daily 1 ml HYDROmorphone hydrochloride 1 mg/ml cartridge (1 source) Opioid Agonist Start: End: take 0.2 mg intravenously every two hours as needed 0.2 mg, Intravenous, EVERY 2 HOURS NEEDED, Starting on Sun09/27/23 at 1042, Until Sun09/27/23 at 1721, Severe Pain, If unable to tolerate PO, Post-op/Post-Proc iohexol (OMNIPAQUE) 350 MG/ML injection 1-171 mL (1 source) Start: End: 1-171 mL, Intravenous, ONCE, 1 dose, On Sun09/26/23 at 1145, Extravasation Risk, CT Procedure lansoprazole 30 mg delayed release oral capsule (20 sources) Proton Pump Inhibitor Start: End: take 1 capsule by mouth once daily Lansoprazole 30 mg capsule,delayed release(DR/EC) Discontinued 30 mg PO DAILY August 08, 2022 1:48pm June 30, 2024 10:45am Comment on above: Take 1 capsule by [facility] daily before breakfast. 1/2 hr before meal. take 1 capsule by [facility] once daily , 1/2 HOUR BEFORE BREAKFAST losartan potassium 50 mg oral tablet (20 sources) Angiotensin 2 Receptor Oriana Start: End: take 1 tablet by mouth once daily Losartan 50 mg tablet Discontinued 50 mg PO daily September 04, 2024 11:30am September 04, 2024 11:31am Start: 04-15-2024 End: 09-04-2024 take 1 tablet by mouth twice daily Losartan 50 mg tablet Discontinued 50 mg PO TWICE A DAY 180 April 29, 2024 2:05pm September 04, 2024 11:31am Start: 08-16-2023 End: 04-29-2024 take 1 tablet by mouth at bedtime Losartan 50 mg tablet Discontinued 50 mg PO AT BEDTIME April 15, 2024 12:23pm April 29, 2024 2:04pm Start: 07-24-2023 End: 08-16-2023 take 1 tablet by mouth twice daily Losartan 50 mg tablet Discontinued 50 mg PO TWICE A DAY July 24, 2023 4:08pm August 16, 2023 1:19pm Start: 07-06-2023 End: 07-24-2023 take 1 tablet by mouth once daily Losartan 50 mg tablet Discontinued 50 mg PO DAILY July 06, 2023 1:00am July 24, 2023 4:09pm Start: 06-16-2021 End: 01-17-2024 take 0.5 tablet by mouth once daily losartan (COZAAR) 100 mg tablet Take 0.5 tablets by mouth once daily. 30 tablet 5 06/16/2021 01/19/2022 Discontinued Start: 05-15-2020 End: 09-27-2023 take 1 tablet by mouth once daily Losartan 100 mg tablet Discontinued 100 mg PO .COMPLEX July 04, 2023 5:37pm July 06, 2023 2:06pm 100 mg orally daily at noon; hold for systolic Start: 05-15-2020 End: 06-05-2023 Losartan 100 MG tablet Disco ntinued 50 mg PO DAILY May 15, 2020 1:00am June 05, 2023 11:29am Start: 05-15-2020 End: 06-05-2023 take 50 mg by mouth once daily Losartan Discontinued 5 0 MG PO DAILY May 15, 2020 1:00am June 05, 2023 11:29am Comment on above: Take 0.5 tablets by mouth once daily. magnesium oxide 400 mg oral tablet (1 source) Start: 4 End: 4 800 mg, Oral, ADMINISTER DIRECTED, Starting on Tere 09/27/23 at 1042, Until Tere 24 at 1721, See admin instructions, For Magnesium 1.6 - 2.0, give 800 mg of Magnesium oxide, Post-op/Post-Proc 50 ml magnesium sulfate 80 mg/ml injection (1 source) Start: 4 End: 4 4 g, Intravenous, Administer over 4 Hours, ADMINISTER DIRECTED, Starting on Tere 09/27/23 at 1042, Until Tere 24 at 1721, Other, Magnesium Replacement Therapy, If Magnesium less than 1.6, give 4 g Magnesium Sulfate IVPB over 4 hours (may give over 1 hour if arrhythmias present)., Post-op/Post-Proc melatonin 3 mg oral tablet (1 source) Start: 4 End: 4 take 3 mg by mouth once daily at bedtime as needed 3 mg, Oral, DAILY AT BEDTIME NEEDED, Starting on Tere 09/27/23 at 1042, Until Tere 24 at 1721, Insomnia, Post-op/Post-Proc Molnupiravir (17 sources) Start: 3 End: 4 take 1 capsule by mouth every six hours Molnupiravir (Molnupiravir 200 Mg Capsule (Eua)) 200 mg capsule Discontinued 200 mg PO EVERY 6 HOURS April 29, 2023 1:00am August 16, 2023 1:18pm Start: 04-29-2023 End: 08-16-2023 take 1 capsule by mouth every six hours Molnupiravir (Molnupiravir 200 Mg Capsule (Eua)) 200 mg capsule Discontinued 200 MG PO EVERY 6 HOURS April 29, 2023 1:00am August 16, 2023 1:18pm Start: 04-29-2023 take 1 capsule by mo uth every six hours Molnupiravir (Molnupiravir 200 Mg Capsule (Eua)) 200 mg capsule Active 200 MG PO EVERY 6 HOURS April 29, 2023 1:00am Start: 04-29-2023 take 1 capsule by mo uth every six hours Molnupiravir (Molnupiravir 200 Mg Capsule (Eua)) 200 mg capsule Active 200 MG PO EVERY 6 HOURS April 29, 2023 12:00am molnupiravir (LAGEVRIO, EUA,) 200 mg capsule (20 sources) End: 02-14-2024 take 4 capsules by mouth twice daily molnupiravir (LAGEVRIO, EUA,) 200 mg capsule Take 800 mg by mouth two times a day. 02/14/2024 Discontinued take 4 capsules by mouth twice d aily molnupiravir (LAGEVRIO, EUA,) 200 mg capsule Take 800 mg by mouth two times a day. Active take 4 capsules by mouth twice d aily molnupiravir (LAGEVRIO, EUA,) 200 mg capsule Take 800 mg by mouth two times a day. 0 Active Comment on above: Take 800 mg by mouth two times a day. naproxen 500 mg oral tablet (20 sources) Nonsteroidal Anti-inflammatory Drug Start: 2 End: take 1 tablet by mouth twice daily as needed for pain Naproxen 500 mg tablet Discontinued 500 mg PO TWICE A DAY as needed for pain August 08, 2022 1:49pm August 16, 2023 1:16pm Naproxen [address] Take by mouth 2 times daily as needed for Mild Pain. Active Comment on above: Take 1 tablet by [facility] twice daily as needed (for pain/inflammation). Take with food. take 1 tablet by [facility] twice a day with food if needed for PAIN/INFLAMMATION nebivolol 10 mg oral tablet (20 sources) Start: 05-15-19 End: 06-08-19 take 1 tablet by mouth once daily Nebivolol 10 mg tablet Discontinued 10 mg PO DAILY August 08, 2022 1:50pm August 08, 2022 2:25pm Comment on above: Take 1 tablet by [facility] once daily. nystatin 100 unt/mg topical powder (20 sources) Polyene Antifungal Start: 06-08-19 End: 02-14-20 nystatin (MYCOSTATIN) powder Indications: Skin yeast infection Apply 1 application to affected area three times daily. 30 g 3 06/08/2022 02/14/2024 Discontinued Start: 06-24-2020 End: 06-08-2022 nystatin (MYCOSTATIN) powder Indications: Skin yeast infection Apply 1 application to affected area three times daily. 1 Bottle 1 06/24/2020 06/08/2022 Discontinued Comment on above: Apply 1 application to affected area three times daily. 2 ml ondansetron 2 mg/ml injection (20 sources) Serotonin-3 Receptor Antagonist Start: 09-27-2023 End: 09-27-2023 4 mg, Intravenous, EVERY 4 HOURS NEEDED, Starting on Tere 09/27/23 at 1042, Until Tere 09/27/23 at 1721, Nausea / Vomiting, Post-op/Post-Proc Start: 06-21-2023 End: 10-31-2023 take 1 tablet by mouth every eight hours as needed for nausea and vomiting Ondansetron Hcl 4 mg tablet Discontinued 4 mg PO Q8H as needed for nausea and vomiting June 21, 2023 1:00am October 31, 2023 10:56am Start: 07-17-2022 take 1 tablet by [facility] every six hours as needed Ondansetron 4 MG Tab Dispersible tablet Take 1 tablet by mouth Every 6 hours as needed. 07/17/2022 Active Comment on above: Take 1 tablet by [facility] every 6 hours as needed for nausea/vomiting. oxyCODONE (1 source) Opioid Agonist Start: End: take 1 tablet by mouth every four hours as needed oxyCODONE (ROXICODONE) tablet 5 mg polyethylene glycol [id number] mg powder for oral solution (1 source) Osmotic Laxative Start: End: 17 g, Oral, DAILY NEEDED, Starting on Tere 09/27/23 at 1042, Until Tere 24 at 1721, Constipation 1st Line, Post-op/Post-Proc microencapsulated potassium chloride 20 meq extended release oral tablet (2 sources) Start: End: take 60 mEq by mouth every eight hours 40-60 mEq, Oral, ADMINISTER DIRECTED, Starting on Tere 09/27/23 at 1042, Until Tere 09/27/23 at 1721, See admin instructions, If Cr less than 2.0 mg/dL 1. For Potassium 3.6 - 4.0, give 40 mEq of Potassium Chloride orally, recheck in the AM. 2. For Potassium less than 3.6, give 60 mEq Potassium Chloride orally, recheck in 8 hours. 3. If potassium is low please administer magnesium first if indicated., Post-op/Post-Proc Start: 09-27-2023 End: 09-27-2023 20 mEq, Oral, ADMINISTER DIRECTED, Starting on Tere 09/27/23 at 1042, Until Tere 09/27/23 at 1721, See admin instructions, If Cr 2.0 - 2.5 mg/dL For Potassium less than 3.6, give 20 mEq Potassium Chloride orally, recheck in AM. If Cr greater than 2.5 mg/dL contact physician/LIP for Potassium less than 3.6 for replacement orders. If potassium is low please administer magnesium first if indicated, Post-op/Post-Proc pravastatin sodium 20 mg oral tablet (20 sources) HMG-CoA Reductase Inhibitor Start: 02-21-2023 End: 2024 take 1 tablet by mouth at bedtime Pravastatin 20 mg tablet Discontinued 20 mg PO AT BEDTIME 90 July 10, 2023 12:05pm 2024 11:39am pravastatin sodi um (PRAVASTATIN ORAL) Take by mouth. Active pravastatin sodi um (PRAVASTATIN ORAL) Take by mouth. 0 Active Comment on above: Take by mouth. predniSONE 20 mg oral tablet (20 sources) Start: 08-06-2023 End: 04-15-2024 take 1 tablet by mouth once daily Prednisone 20 mg tablet Discontinued 20 mg PO DAILY August 06, 2023 12:00am April 15, 2024 12:24pm x30 days Comment on above: Take 20 mg by mouth once daily. Sodium Chloride (20 sources) Start: 09-27-2023 End: 09-27-2023 Intravenous, at 1 mL/hr, CONTINUOUS NEEDED, Starting on Tere 09/27/23 at 1042, Until Tere 09/27/23 at 1721, See administration instructions, Per pressure bag for all transduced lines., Post-op/Post-Proc Start: 09-27-2023 End: 09-27-2023 Intravenous, at 20 mL/hr, CO NTINUOUS, Starting on Tere 09/27/23 at 0600, Until Tere 09/27/23 at 1721, KVO fluids, start the morning of procedure., Pre-op/Pre-Proc Start: 09-26-2023 End: 09-26-2023 1-100 mL, Intravenous, ONCE NEEDED, 1 dose, Starting on Sun09/26/23 at 1144, Until Sun09/26/23 at 1200, Flush, [place] Procedure Start: 06-15-2022 End: 09-15-2023 sodium chloride 0.9 % (flush ) 10 mL (BD POSIFLUSH) ticagrelor 90 mg oral tablet (20 sources) Start: 12-27-2022 End: 01-24-2023 take 1 tablet by mouth twice daily Ticagrelor (Brilinta) 90 mg Tablet Discontinued 90 mg PO TWICE A DAY 60 December 27, 2022 12:00am January 24, 2023 10:48am tiZANidine 2 mg oral capsule (20 sources) Central alpha-2 Adrenergic Agonist Start: 03-28-2024 End: 06-30-2024 take 1 capsule by mouth three times daily as needed Tizanidine 2 mg capsule Discontinued 2 mg PO 3 TIMES DAILY NEEDED as needed for muscle spasticity May 10, 2024 1:00am June 30, 2024 10:49am triamcinolone acetonide 1 mg/ml topical cream (20 sources) Corticosteroid Start: 08-04-2022 End: 07-25-2024 Triamcinolone Acetonide 0.1 % cream Discontinued 1 NMA TOPICAL DAILY August 04, 2022 12:00am July 25, 2024 1:47pm Start: 08-19-2020 End: 05-02-2023 triamcinolone acetonide (WILSON ALOG) 0.1 % cream Apply to affected area twice daily. For 7-10 days. 45 g 08/19/2020 05/02/2023 Discontinued (Course of therapy completed) triamcinolone ac etonide (KENALOG) 0.1 % cream Apply to affected area two times a day. Active Comment on above: Apply to affected ar ea twice daily. For 7-10 days. Problems Active Problems Problem Classification Problem Date Documented Da te Episodic/Chronic Abdominal pain (20 sources) Right upper quadrant pain; Translations: [Right upper quadrant pain] Episodic Anxiety disorders (3 sources) Mixed anxiety and depressive disorder; Translations: [Anxiety disorder, unspecified] Onset: 4 01-18-2024 Chronic Cardiac dysrhythmias (20 sources) Supraventricular tachycardia; Translations: [Supraventricular tachycardia] Onset: 3 Chronic Comment on above: ALBLATION SEPTEMBER 2023 Cardiac dysrhythmias (20 sources) Palpitations; Translations: [Palpitations] Episodic Coagulation and hemorrhagic disorders (20 sources) Finding related to bruising; Translations: [Spontaneous ecchymoses] 01-22-2023 Episodic Conditions associated with dizziness or vertigo (19 sources) Dizziness; Translations: [Dizziness and giddiness] Onset: 5 10-13-2023 Episodic Coronary atherosclerosis and other heart disease (20 sources) Coronary arteriosclerosis; Translations: [Atherosclerotic heart disease of samish coronary artery without angina pectoris] Onset: 3 11-16-2022 Chronic Comment on above: Drug-eluting stent t o the proximal LAD. Drug-eluting stent to mid D1. Deficiency and other anemia (9 sources) Pancytopenia; Translations: [Other pancytopenia] 10-30-2023 Chronic Deficiency and other anemia (20 sources) Anemia; Translations: [Anemia, unspecified] 06-21-2023 Episodic Deficiency and other anemia (1 source) Iron deficiency anemia, unspecified; Translations: [Iron deficiency anemia, unspecified iron deficiency anemia type] Onset: 5 Episodic Diabetes mellitus without complication (20 sources) Diabetes mellitus; Translations: [Type 2 diabetes mellitus without complications] Onset: 9 01-22-2019 Chronic Diabetes mellitus without complication (20 sources) Hyperglycemia 05-16-2020 Episodic Disorders of lipid metabolism (20 sources) Mixed hyperlipidemia; Translations: [Mixed hyperlipidemia] Onset: 4 Chronic E Codes: Natural/environment (1 source) Dog scratch; Translations: [Other contact with dog, initial encounter] 08-18-2024 Episodic Essential hypertension (20 sources) Hypertensive disorder; Translations: [Essential (primary) hypertension] Onset: 3 01-22-2019 Chronic Fluid and electrolyte disorders (10 sources) Hyponatremia; Translations: [Hypo-osmolality and hyponatremia] Onset: 5 07-17-2024 Episodic Genitourinary symptoms and ill-defined conditions (5 sources) Increased frequency of urination; Translations: [Frequency of micturition] Episodic Headache; including migraine (2 sources) Headache; Translations: [Headaches] Episodic Malaise and fatigue (20 sources) Fatigue; Translations: [Other fatigue] Onset: 4 Episodic Mood disorders (1 source) Mood disorders; Translations: [Anxiety and depression] Onset: 4 Mycoses (2 sources) Candidiasis of vagina; Translations: [Vaginal candidiasis] Episodic Nausea and vomiting (1 source) Nausea; Translations: [Nausea] Episodic Nonmalignant breast conditions (2 sources) Pain of breast; Translations: [Mastodynia] Episodic Nonspecific chest pain (20 sources) Xiphodynia; Translations: [Other chest pain] Episodic Open wounds of extremities (1 source) Puncture wound of right foot; Translations: [Puncture wound without foreign body, right foot, initial encounter] 08-19-2024 Episodic Other aftercare (9 sources) Wound ; Translations: [Encounter for other specified surgical aftercare] 10-13-2023 Episodic Other aftercare (9 sources) Drug therapy finding; Translations: [long term care social worker (current) use of anticoagulants] 10-30-2023 Episodic Other aftercare (1 source) Encounter for therapeutic drug level monitoring; Translations: [Encounter for therapeutic drug monitoring] Onset: 5 Episodic Other aftercare (1 source) long term care social worker (current) use of anticoagulants; Translations: [long term care social worker (current) use of anticoagulants] Onset: 5 Episodic Other and unspecified benign neoplasm (13 sources) Gastric polyp; Translations: [Polyp of stomach and duodenum] 05-21-2024 Episodic Other circulatory disease (20 sources) Raynaud's disease; Translations: [Raynaud's syndrome without gangrene] Onset: 3 01-07-2020 Chronic Other circulatory disease (20 sources) Raynaud's syndrome without gangrene; Translations: [Raynaud's syndrome] Onset: 5 08-08-2022 Chronic Other circulatory disease (1 source) Respiratory symptom; Translations: [Other specified symptoms and signs involving the circulatory and respiratory systems] Episodic Other circulatory disease (9 sources) Hemorrhage, not elsewhere classified; Translations: [Postoperative ecchymosis] 10-13-2023 Episodic Other connective tissue disease (20 sources) Fibromyalgia; Translations: [Fibromyalgia] Onset: 3 01-07-2020 Episodic Other connective tissue disease (20 sources) Pain in lower limb; Translations: [Pain in leg, unspecified] 12-03-2022 Episodic Other connective tissue disease (1 source) Swelling of lower limb; Translations: [Other specified soft tissue disorders] 12-03-2022 Episodic Other eye disorders (1 source) Conjunctival hemorrhage, right eye; Translations: [Conjunctival hemorrhage, right eye] Onset: 5 Episodic Other female genital disorders (1 source) Pruritus of vagina; Translations: [Other specified noninflammatory disorders of vagina] Episodic Other gastrointestinal disorders (1 source) Irritable bowel syndrome without diarrhea; Translations: [Irritable bowel syndrome, unspecified] Onset: 5 Chronic Other gastrointestinal disorders (9 sources) Diarrhea; Translations: [Diarrhea, unspecified] 02-13-2024 Episodic Other gastrointestinal disorders (13 sources) Occult blood in stools; Translations: [Other fecal abnormalities] 05-19-2024 Episodic Other inflammatory condition of skin (1 source) Pruritus of vulva; Translations: [Pruritus vulvae] Episodic Other injuries and conditions due to external causes (1 source) Wound hemorrhage; Translations: [Other injury of unspecified body region, initial encounter] 08-18-2024 Episodic Other liver diseases (17 sources) Steatosis of liver; Translations: [Fatty (change of) liver, not elsewhere classified] Chronic Other liver diseases (4 sources) Hepatic fibrosis; Translations: [Liver fibrosis] Chronic Other liver diseases (2 sources) Elevated liver enzymes level; Translations: [Abnormal levels of other serum enzymes] Episodic Other lower respiratory disease (20 sources) Interstitial lung disease; Translations: [Interstitial pulmonary disease, unspecified] Onset: 3 01-07-2020 Chronic Other lower respiratory disease (16 sources) Interstitial pulmonary disease, unspecified; Translations: [Postinflammatory pulmonary fibrosis] Onset: 5 03-21-2023 Chronic Other lower respiratory disease (2 sources) Idiopathic non-specific interstitial pneumonitis; Translations: [Idiopathic non-specific interstitial pneumonitis] Onset: 5 Chronic Other lower respiratory disease (18 sources) Cough; Translations: [Acute cough] Episodic Other lower respiratory disease (20 sources) Dyspnea; Translations: [Shortness of breath] Episodic Other lower respiratory disease (20 sources) Dyspnea on exertion; Translations: [Shortness of breath] 11-16-2022 Episodic Other lower respiratory disease (18 sources) Dyspnea, unspecified; Translations: [Other respiratory abnormalities] 01-24-2023 Episodic Other lower respiratory disease (1 source) Cough; Translations: [Acute cough] 04-19-2022 Episodic Other lower respiratory disease (1 source) Wheezing; Translations: [Wheezing] Onset: 5 Episodic Other nutritional; endocrine; and metabolic disorders (2 sources) H/O: thyroid disorder; Translations: [Personal history of other endocrine, nutritional and metabolic disease] Episodic Other screening for suspected conditions (not mental disorders or infectious disease) (20 sources) Mammography abnormal; Translations: [Other abnormal and inconclusive findings on diagnostic imaging of breast] Onset: 4 Episodic Other upper respiratory infections (3 sources) Bacterial sinusitis; Translations: [Chronic sinusitis, unspecified] Onset: 4 12-09-2022 Chronic Residual codes; unclassified (2 sources) Obstructive sleep apnea syndrome; Translations: [Obstructive sleep apnea (adult) (pediatric)] 12-18-2023 Chronic Residual codes; unclassified (1 source) Dependent edema; Translations: [Edema, unspecified] 12-20-2022 Episodic Residual codes; unclassified (1 source) Procedure not done; Translations: [Procedure and treatment not carried out, unspecified reason] 12-31-2022 Episodic Residual codes; unclassified (1 source) Not up to date with immunizations; Translations: [Not up to date with diphtheria-tetanus vaccination] 08-19-2024 Episodic Residual codes; unclassified (1 source) Localized edema; Translations: [Edema of left lower extremity] Onset: 5 Episodic Skin and subcutaneous tissue infections (2 sources) Cellulitis of right lower limb; Translations: [Cellulitis of right lower limb] 12-15-2022 Episodic Systemic lupus erythematosus and connective tissue disorders (20 sources) Lupus erythematosus; Translations: [Systemic lupus erythematosus, unspecified] Onset: 3 01-22-2019 Chronic Thyroid disorders (20 sources) Graves' disease; Translations: [Thyrotoxicosis with diffuse goiter without thyrotoxic crisis or storm] Onset: 3 01-22-2019 Chronic Unclassified (1 source) Liver fibrosis; Translations: [Liver fibrosis] Onset: 5 Unclassified (1 source) Acute midline low back pain without sciatica; Translations: [Acute midline low back pain without sciatica] Onset: 4 Unclassified (1 source) Cough, unspecified; Translations: [Cough, unspecified] Onset: 5 Urinary tract infections (20 sources) Urinary tract infectious disease; Translations: [Urinary tract infection, site not specified] 01-08-2023 Episodic Viral infection (2 sources) Viral disease; Translations: [Viral infection, unspecified] Episodic Past or Other Problems Problem Classification Problem Date Documented Da te Episodic/Chronic Acute posthemorrhagic anemia (14 sources) Anemia due to blood loss; Translations: [Acute posthemorrhagic anemia] Onset: 5 05-19-2024 Episodic Coronary atherosclerosis and other heart disease (20 sources) Stented coronary artery; Translations: [Presence of coronary angioplasty implant and graft] Onset: 3 12-27-2022 Episodic Comment on above: KRISTI Prox LAD using R esolute [place] 3.5x8 mm, optimized proximally using 4.0 mm balloon,KRISTI Mid D1 using Resolute [place] 2.25x15 mm Deficiency and other anemia (2 sources) Anemia, unspecified; Translations: [Anemia, unspecified type] Onset: 4 Episodic Gastrointestinal hemorrhage (1 source) Gastrointestinal hemorrhage, unspecified; Translations: [Gastrointestinal hemorrhage, unspecified] Onset: 5 Episodic Immunizations and screening for infectious disease (5 sources) Contact with or exposure to other viral diseases; Translations: [Exposure to COVID-19 virus] Onset: 4 Episodic Other gastrointestinal disorders (1 source) Other fecal abnormalities; Translations: [Other fecal abnormalities] Onset: 5 Episodic Other gastrointestinal disorders (1 source) Diarrhea, unspecified; Translations: [Diarrhea, unspecified] Onset: 4 Episodic Other upper respiratory infections (9 sources) Sore throat symptom; Translations: [Acute pharyngitis, unspecified] Onset: 5 Episodic Spondylosis; intervertebral disc disorders; other back problems (20 sources) Neck pain; Translations: [Cervicalgia] Onset: 1 04-07-2021 Episodic Results Test Name Value Interpretation Reference Range Facility Gram Stainon 10-29-2024 GS Acceptable Specimen? Yes (<25 Epithelial cells per/lpf) Gram Stain 2+ Gram positive cocci 3+ White Blood Cells 1+ Epithelial cells Normal [facility] Comment on above: Performed By: #### M 100.1999 ####[facility] [id number] [place], [place], [address] C3 SerPl-mCncon 10-24-2024 Complement C3 [Mass/Vol] 131 mg/dL Normal 86-166 [facility] Comment on above: Order Comment: Bradley castellanos Type: BLOOD SPECIMENOrdering Facility: [employer],[facility] Address: [address] [place] [address], [place] [address] Performed By: #### 2 4325-3, 4498-2, 1987-09, 4485-01 ####[facility] LABCLIA [id number] [address] OF [facility] C4 SerPl-mCncon 10-24-2024 Complement C4 [Mass/Vol] 16 mg/dL Normal 13-46 [facility] Comment on above: Order Comment: Bradley castellanos Type: BLOOD SPECIMENOrdering Facility: [employer],[facility] Address: [address] [place] [address], [place] [address] Performed By: #### 2 4325-3, 4498-2, 1987-09, 4485-01 ####[facility] LABCLIA [id number] [place] [id number] [place] CBC W Auto Differential pane l (Bld)on 10-24-2024 Basophils (Bld) [#/Vol] 10*3/uL Normal <0.11 [facility] Comment on above: Order Comment: Bradley castellanos Type: BLOOD SPECIMENOrdering Facility: [facility] [facility] Address: [address] [place], [place] [address] Performed By: #### 4 537-7, 50172-9 ####[facility] LABCLIA [id number] [place] [id number] [place] Basophils/100 WBC (Bld) 0.2 % Normal [facility] Comment on above: Order Comment: Bradley castellanos Type: BLOOD SPECIMENOrdering Facility: [facility] Address: [address] [place] [address] Performed By: #### 4 537-7, 89044-2 ####[facility] LABIA [id number] [address] STATES OF [facility] Differential cell count method Nom (Bld) Auto Normal [facility] Comment on above: Order Comment: Bradley castellanos Type: BLOOD SPECIMENOrdering Facility: [facility] Address: [address] [place] [address] Performed By: #### 4 537-7, 48633-7 ####[facility] LABCLIA [id number] [place] [id number] [place] Eosinophils (Bld) [#/Vol] 0.12 10*3/uL Normal <0.46 [facility] Comment on above: Order Comment: Bradley castellanos Type: BLOOD SPECIMENOrdering Facility: [facility] Address: [address] [place], [place] [address] Performed By: #### 4 537-7, 61876-4 ####[facility] LABCLIA [id number] [place] [id number] [facility] [place] Eosinophils/100 WBC (Bld) 2.7 % Normal [facility] Comment on above: Order Comment: Speci men Type: BLOOD SPECIMENOrdering Facility: [facility] Address: [address] [place], [place] [address] [address] Performed By: #### 4 537-7, 32206-8 ####[facility] LABCLIA [id number] [place] [id number] [place] Erythrocyte distribution width (RBC) [Ratio] 15.0 % Normal 11.5-15.0 [facility] Comment on above: Order Comment: Speci men Type: BLOOD SPECIMENOrdering Facility: [facility] Address: [address] [place], [place] [address]MARIA GUADALUPE [place]ILLER, [place] [address] Performed By: #### 4 537-7, 16412-8 ####[facility] LABCLIA [id number] [place] [id number] [place] Hematocrit (Bld) [Volume fraction] 36.4 % Normal 36.0-46.0 [facility] Comment on above: Order Comment: Speci men Type: BLOOD SPECIMENOrdering Facility: [facility] Address: [address] [place], [place] [address] [address] Performed By: #### 4 537-7, 17940-8 ####[facility] LABIA [id number] [place] [id number] [place] Hemoglobin (Bld) [Mass/Vol] 12.0 g/dL Normal 11.5-15.5 [facility] Comment on above: Order Comment: Speci men Type: BLOOD SPECIMENOrdering Facility: [facility] Address: [address] [place], [place] [address] [address] Performed By: #### 4 537-7, 81314-3 ####[facility] LABCLIA [id number] [place] [id number] [place] Immature granulocytes (Bld) [#/Vol] 10*3/uL Normal <0.10 [facility] Comment on above: Order Comment: Speci men Type: BLOOD SPECIMENOrdering Facility: [facility] Address: [address] [place], [place] [address] [address] Performed By: #### 4 537-7, 34593-0 ####[facility] LABCLIA [id number] [address] [address] [place] Immature granulocytes/100 WBC (Bld) 0.5 % Normal [facility] Comment on above: Order Comment: Speci men Type: BLOOD SPECIMENOrdering Facility: [facility] Address: [address] [place] [address] Performed By: #### 4 537-7, 31578-2 ####[facility] LABCLIA [id number] [place] [id number] [place] Lymphocytes (Bld) [#/Vol] 1.18 10*3/uL Normal 1.00-4.00 [facility] Comment on above: Order Comment: Speci men Type: BLOOD SPECIMENOrdering Facility: [facility] Address: [address] [place], [place] [address] , [place] [address] Performed By: #### 4 537-7, 48256-4 ####[facility] LABCLIA [id number] [address] [address] [place] Lymphocytes/100 WBC (Bld) 26.9 % Normal [facility] Comment on above: Order Comment: Speci men Type: BLOOD SPECIMENOrdering Facility: [facility] Address: [address] [place], [place] [address] [address] Performed By: #### 4 537-7, 84131-3 ####[facility] LABCLIA [id number] [address] [address] [place] MCH (RBC) [Entitic mass] 31.7 pg Normal 26.0-34.0 [facility] Comment on above: Order Comment: Speci men Type: BLOOD SPECIMENOrdering Facility: [employer] Address: [address] [place], [place] [address] , [place] [address] Performed By: #### 4 537-7, 42413-6 ####[facility] LABIA [id number] [address] [address] [place] MCHC (RBC) [Mass/Vol] 33.0 g/dL Normal 30.5-36.0 [facility] Comment on above: Order Comment: Speci men Type: BLOOD SPECIMENOrdering Facility: [employer] Address: [address] [place], [place] [address] , [place] [address] Performed By: #### 4 537-7, 21878-4 ####[facility] [id number] [place] [address] [place] MCV (RBC) [Entitic vol] 96.3 fL Normal 80.0-100.0 [facility] Comment on above: Order Comment: Speci men Type: BLOOD SPECIMENOrdering Facility: [employer] Address: [address] [place], [place] [address] , [place] [address] Performed By: #### 4 537-7, 61887-6 ####[facility] [id number] [address] [address] [place] Monocytes (Bld) [#/Vol] 0.53 10*3/uL Normal <0.87 [facility] Comment on above: Order Comment: Speci men Type: BLOOD SPECIMENOrdering Facility: [employer] Address: [address] [place], [place] [address] , [place] [address] Performed By: #### 4 537-7, 09968-6 ####[facility] [id number] [address] [address] [place] Monocytes/100 WBC (Bld) 12.1 % Normal [facility] Comment on above: Order Comment: Speci men Type: BLOOD SPECIMENOrdering Facility: [employer] Address: [address] [place] [address], [place] [address] Performed By: #### 4 537-7, 80825-8 ####[facility] LABIA [id number] [place] [id number] [place] Neutrophils (Bld) [#/Vol] 2.52 10*3/uL Normal 1.45-7.50 [facility] Comment on above: Order Comment: Bradley castellanos Type: BLOOD SPECIMENOrdering Facility: [facility] Address: [address] [place] [address], [place] [address] Performed By: #### 4 537-7, 93809-5 ####[facility] [id number] [place] [address] [place] Neutrophils/100 WBC (Bld) 57.6 % Normal [facility] Comment on above: Order Comment: Bradley castellanos Type: BLOOD SPECIMENOrdering Facility: [employer] Address: [address] [place] [address], [place] [address] Performed By: #### 4 537-7, 33577-7 ####[facility] [id number] [place] [address] [place] Nucleated RBC (Bld) [#/Vol] 10*3/uL Normal <0.01 [facility] Comment on above: Order Comment: Bradley castellanos Type: BLOOD SPECIMENOrdering Facility: [employer] Address: [address] [place] [address], [place] [address] Performed By: #### 4 537-7, 57429-7 ####[facility] [id number] [place] [id number] [place] Nucleated RBC/100 WBC (Bld) [Ratio] 0.0 /100 WBC Normal [facility] Comment on above: Order Comment: Bradley castellanos Type: BLOOD SPECIMENOrdering Facility: [employer] Address: [address] [place] [address] Performed By: #### 4 537-7, 81087-5 ####[facility] LABCLIA [id number] [address] [address] [place] Platelet mean volume (Bld) [Entitic vol] 11.5 fL Normal 9.0-12.7 [facility] Comment on above: Order Comment: Speci men Type: BLOOD SPECIMENOrdering Facility: [facility] Address: [address] [place], [place] [address] [address] Performed By: #### 4 537-7, 36256-7 ####[facility] LABIA [id number] [address] [address] [place] Platelets (Bld) [#/Vol] 161 10*3/uL Normal 150-400 [facility] Comment on above: Order Comment: Speci men Type: BLOOD SPECIMENOrdering Facility: [facility] Address: [address] [place], [place] [address] [address] Performed By: #### 4 537-7, 06547-6 ####[facility] LABIA [id number] [address] [address] [place] RBC (Bld) [#/Vol] 3.78 10*6/uL Low 3.90-5.20 [facility] Comment on above: Order Comment: Speci men Type: BLOOD SPECIMENOrdering Facility: [facility] Address: [address] [place], [place] [address] [address] Performed By: #### 4 537-7, 54526-6 ####[facility] [id number] [address] [address] [place] WBC (Bld) [#/Vol] 4.38 10*3/uL Normal 3.70-11.00 [facility] Comment on above: Order Comment: Speci men Type: BLOOD SPECIMENOrdering Facility: [facility] Address: [address] [place], [place] [address]MARIA [place] [address] Performed By: #### 4 537-7, 34124-2 ####[facility] LABCLIA [id number] [place] [id number] [place] CRP SerPl-mCncon 10-24-2024 CRP [Mass/Vol] 0.3 mg/dL Normal <0.9 [facility] Comment on above: Order Comment: Speci emanuel Type: BLOOD SPECIMENOrdering Facility: [facility] Address: [address] [place] [address] CARLY MILLER, [place] [address] Performed By: #### 2 4325-3, 4498-2, 1988-5, 4485-9 ####[facility] LABCLIA [id number] [place] [address] [place] Creatinine + eGFR Pnl SerPlB ldon 10-24-2024 Creatinine and Glomerular filtration rate.predicted panel (S/P/Bld) 80 mL/min/1.73m??? Normal >=60 [facility] Comment on above: Order Comment: Bradley castellanos Type: BLOOD SPECIMEN [facility] Address: [address] [place], [place] [address]MARIA GUADALUPE MILLER, [place] [address] Result Comment: Arianna mated Glomerular Filtration Rate (eGFR) is calculated using the 2020 CKD-EPI creatinine equation. This equation utilizes serum creatinine, sex, and age as parameters. The creatinine assay has traceable calibration to isotope dilution-mass spectrometry. Refer to KDIGO guidelines for clinical interpretation. In patients with unstable renal function, e.g. those with acute kidney injury, the eGFR may not accurately reflect actual GFR. Performed By: #### 4 5066-8 #### [facility] CLIA [id number] [address] [place] [address] [place] Creatinine and Glomerular fi ltration rate.predicted panel (S/P/Bld)on 10-24-2024 Creatinine [Mass/Vol] 0.84 mg/dL Normal 0.58-0.96 [facility] Comment on above: Order Comment: Natashai emanuel Type: BLOOD SPECIMEN Ordering Facility: [employer] Address: [address] [place], [place] [address] , [place] [id number] Performed By: #### 4 5066-8 #### [facility] CLIA [id number] [place] DNA ANTIBODY DS BLDon 2024 DNA ANTIBODY 89 IU/mL Normal <=200 [facility] Comment on above: Order Comment: Specemy castellanos Type: BLOOD SPECIMENOrdering Facility: [employer] Address: [address] [place], [place] [address] , [place] [address] Result Comment: Nega tive: <200 IU/mL Equivocal: 201-300 IU/mL Moderate Positive: 301-800 IU/mL Strong Positive: >801 IU/mL Performed By: #### D NAAB ####[facility] LABCLIA [id number] [address] [place] DNA ANTIBODY QUALITATIVE INTERPRETATION Negative Normal Negative [facility] Comment on above: Order Comment: Bradley castellanos Type: BLOOD SPECIMENOrdering Facility: [employer] Address: [address] [place], [place] [address] , [place] [address] Performed By: #### D NAAB ####[facility] LABCLIA [id number] [place] [address] [place] ESR Westergren method (Bld) [Velocity]on 10-24-2024 ESR (Bld) [Velocity] 12 mm/h Normal 0-[address] [facility] Comment on above: Order Comment: Bradley castellanos Type: BLOOD SPECIMENOrdering Facility: [employer] Address: [address] [place], [place] [address] , [place] [address] Performed By: #### 4 537-7, 18705-3 ####[facility] LABCLIA [id number] [place] [address] [place] Hepatic function 2000 panelo n 10-24-2024 Albumin [Mass/Vol] 4.2 g/dL Normal 3.9-4.9 [facility] Comment on above: Order Comment: Speci men Type: BLOOD SPECIMENOrdering Facility: [employer] Address: [address] [place] [address] CARLY MILLER, [place] [address] Performed By: #### 2 4325-3, 8-2, 1987-09, 4485-01 ####[facility] LABIA [id number] [address] [address] [place] ALP [Catalytic activity/Vol] 82 U/L Normal 34-123 [facility] Comment on above: Order Comment: Speci men Type: BLOOD SPECIMENOrdering Facility: [facility] Address: [address] [place] [address] CARLY MILLER, [place] [address] Performed By: #### 2 4325-3, 8-2, 1987-09, 4485-01 ####[facility] [id number] [address] [address] [place] ALT [Catalytic activity/Vol] 41 U/L High 7-38 [facility] Comment on above: Order Comment: Speci men Type: BLOOD SPECIMENOrdering Facility: [employer],[facility] Address: [address] [place] [address] CARLY MILLER, [place] [address] Performed By: #### 2 4325-3, 4497-2, 1987-09, 4485-01 ####[facility] [id number] [address] [address] [place] AST [Catalytic activity/Vol] 40 U/L High 13-35 [facility] Comment on above: Order Comment: Speci men Type: BLOOD SPECIMENOrdering Facility: [employer],[facility] Address: [address] [place] [address] CARLY MILLER, [place] [address] Performed By: #### 2 4325-3, 4497-2, 1987-09, 4485-01 ####[facility] LABIA [id number] [address] [place] [address] [place] Bilirubin [Mass/Vol] 0.5 mg/dL Normal 0.2-1.[address] [facility] Comment on above: Order Comment: Speci men Type: BLOOD SPECIMENOrdering Facility: [employer],[facility] Address: [address] [place] [address] CARLY MILLER, [place] [address] Performed By: #### 2 4325-3, 4498-2, 1987-09, 4485-01 ####[facility] LABIA [id number] [address] [address] [place] Bilirubin.conjugated [Mass/Vol] 0.2 mg/dL Normal <0.3 [facility] Comment on above: Order Comment: Speci men Type: BLOOD SPECIMENOrdering Facility: [employer],[facility] Address: [address] [place] [address] CARLY MILLER, [place] [address] Performed By: #### 2 4325-3, 4498-2, 1987-09, 4485-01 ####[facility] [id number] [address] [address] [place] Protein [Mass/Vol] 6.6 g/dL Normal 6.3-8.0 [facility] Comment on above: Order Comment: Bradley castellanos Type: BLOOD SPECIMENOrdering Facility: [employer],[facility] Address: [address] [place] [address] CARLY MILLER, [place] [address] Performed By: #### 2 4325-3, 4498-2, 1987-09, 4485-01 ####[facility] [id number] [address] [address] [place] Anion gap in Serum or Plasma Ordered By: Alicia Manzano on 10-21-2024 Anion gap [Moles/Vol] 11 mmol/L 5-15 [facility] BUN/creatinine ratioOrdered By: Alicia Manzano on 10-21-2024 Urea nitrogen/Creatinine [Mass ratio] 16.4 mg/mg 10-20 [facility] Bilirubin, totalOrdered By: Alicia Manzano on 10-21-2024 Bilirubin [Mass/Vol] 0.73 mg/dL 0.00-1.30 [facility] CBC-Complete Blood Cnt No Di ffon 10-21-2024 Erythrocyte distribution width (RBC) [Ratio] 14.9 % High 11.6-14.6 [facility] Comment on above: Performed By: #### L 100.0500, L500.4100, L500.4050 ####[facility] [address] [place], [address] Hematocrit (Bld) [Volume fraction] 36.7 % Low 37-47 [facility] Comment on above: Performed By: #### L 100.0500, L500.4100, L500.4050 ####[facility] [address] [place], [address] Hemoglobin (Bld) [Mass/Vol] 12.5 g/dL Normal 12.0-15.0 [facility] Comment on above: Performed By: #### L 100.0500, L500.4100, L500.4050 ####[facility] [address] [place], [address] MCH (RBC) [Entitic mass] 31.6 pg Normal 27.0-32.0 [facility] Comment on above: Performed By: #### L 100.0500, L500.4100, L500.4050 ####[facility] [address] [place], [address] MCHC (RBC) [Mass/Vol] 34.1 g/dL Normal 32-36 [facility] Comment on above: Performed By: #### L 100.0500, L500.4100, L500.4050 ####[facility] [address] [place], [address] MCV (RBC) [Entitic vol] 92.7 fL Normal 81-99 [facility] Comment on above: Performed By: #### L 100.0500, L500.4100, L500.4050 ####[facility] [address] [place], [address] Platelet mean volume (Bld) [Entitic vol] 10.4 fL Normal 6.2-12.0 [facility] Comment on above: Performed By: #### L 100.0500, L500.4100, L500.4050 ####[facility] [address] [place], [address] Platelets (Bld) [#/Vol] 146 10*3/uL Low 150-450 [facility] Comment on above: Performed By: #### L 100.0500, L500.4100, L500.4050 ####[facility] [address] [place], [address] RBC (Bld) [#/Vol] 3.96 10*6/uL Low 4.2-5.4 [facility] Comment on above: Performed By: #### L 100.0500, L500.4100, L500.4050 ####[facility] [address] [place], [address] RDW SD 51.2 fl High 35.1-43.9 [facility] Comment on above: Performed By: #### L 100.0500, L500.4100, L500.4050 ####[facility] [address] [place], [address] WBC (Bld) [#/Vol] 3.3 10*3/uL Low 4.4-11.0 [facility] Comment on above: Performed By: #### L 100.0500, L500.4100, L500.4050 ####[facility] [address] [place], [address] Calculated very low density lipoprotein (VLDL) cholesterol measurementOrdered By: Alicia Manzano on 10-21-2024 Calculated very low density lipoprotein (VLDL) cholesterol measurement 14 mg/dL 5-40 [facility] Carbon dioxide, total [Moles /volume] in Central venous bloodOrdered By: Alicia Manzano on 10-21-2024 CO2 [Moles/Vol] 23.6 mmol/L 21.0-32.0 [facility] Chloride assayOrdered By: Neal Manzano on 10-21-2024 Chloride [Moles/Vol] 101 mmol/L 98-108 [facility] Comprehensive Metabolic Prof ilon 10-21-2024 Albumin [Mass/Vol] 4.3 g/dL Normal 3.5-5.0 [facility] Comment on above: Performed By: #### L 100.0500, L500.4100, L500.4050 ####[facility] [address] [place], [address] Albumin/Globulin [Mass ratio] 1.6 {ratio} Normal 0.9-2.4 [facility] Comment on above: Performed By: #### L 100.0500, L500.4100, L500.4050 ####[facility] [address] [place], [address] ALK PHOS 87 U/L Normal 35-104 [facility] Comment on above: Performed By: #### L 100.0500, L500.4100, L500.4050 ####[facility] [address] [place], [address] ALT [Catalytic activity/Vol] 46 U/L High <=34 [facility] Comment on above: Performed By: #### L 100.0500, L500.4100, L500.4050 ####[facility] [address] [place], [address] AST [Catalytic activity/Vol] 41 U/L High <=31 [facility] Comment on above: Performed By: #### L 100.0500, L500.4100, L500.4050 ####[facility] [address] [place], [address] Bilirubin [Mass/Vol] 0.73 mg/dL Normal 0.00-1.30 [facility] Comment on above: Performed By: #### L 100.0500, L500.4100, L500.4050 ####[facility] [address] [place], [address] BUN/CRE 16.4 RATIO Normal 10-20 [facility] Comment on above: Performed By: #### L 100.0500, L500.4100, L500.4050 ####[facility] [address] [place], [address] Calcium [Mass/Vol] 9.4 mg/dL Normal 7.6-11.0 [facility] Comment on above: Performed By: #### L 100.0500, L500.4100, L500.4050 ####[facility] [address] [place], [address] Chloride [Moles/Vol] 101 mmol/L Normal 98-108 [facility] Comment on above: Performed By: #### L 100.0500, L500.4100, L500.4050 ####[facility] [address] [place], [address] CO2 [Moles/Vol] 23.6 mmol/L Normal 21.0-32.0 [facility] Comment on above: Performed By: #### L 100.0500, L500.4100, L500.4050 ####[facility] [address] [place], [address] Creatinine [Mass/Vol] 0.72 mg/dL Normal 0.70-1.20 [facility] Comment on above: Performed By: #### L 100.0500, L500.4100, L500.4050 ####[facility] [address] [place], [address] GAP 11 Normal 5-15 [facility] Comment on above: Performed By: #### L 100.0500, L500.4100, L500.4050 ####[facility] [address] [place], [address] GFR/1.73 sq M.predicted among non-blacks MDRD (S/P/Bld) [Vol rate/Area] 97 mL/min/{1.73_m2} Normal >60 [facility] Comment on above: Result Comment: mL/m in/1.73m2 CKD-EPI Creatinine Equation (2020) Performed By: #### L 100.0500, L500.4100, L500.4050 ####[facility] [address] [place], [address] Globulin (S) [Mass/Vol] 2.8 g/dL Normal 2.2-4.2 [facility] Comment on above: Performed By: #### L 100.0500, L500.4100, L500.4050 ####[facility] [address] [place], [address] Glucose [Mass/Vol] 118 mg/dL High 70-99 [facility] Comment on above: Performed By: #### L 100.0500, L500.4100, L500.4050 ####[facility] [address] [place], [address] Potassium [Moles/Vol] 4.5 mmol/L Normal 3.3-5.1 [facility] Comment on above: Performed By: #### L 100.0500, L500.4100, L500.4050 ####[facility] [address] [place], [address] Sodium [Moles/Vol] 136 mmol/L Normal 133-145 [facility] Comment on above: Performed By: #### L 100.0500, L500.4100, L500.4050 ####[facility] [address] [place], [address] T PROT 7.1 g/dL Normal 5.9-8.4 [facility] Comment on above: Performed By: #### L 100.0500, L500.4100, L500.4050 ####[facility] [address] [place], [address] Urea nitrogen [Mass/Vol] 12 mg/dL Normal 4-19 [facility] Comment on above: Performed By: #### L 100.0500, L500.4100, L500.4050 ####[facility] [address] [place], [address] Erythrocyte distribution wid th ratioOrdered By: Alicia Manzano on 10-21-2024 Erythrocyte distribution width (RBC) [Ratio] 14.9 % High 11.6-14.6 [facility] Erythrocyte distribution wid th standard deviationOrdered By: Alicia Manzano on 10-21-2024 Erythrocyte distribution width (RBC) [Ratio] 51.2 fl High 35.1-43.9 [facility] Glomerular filtration rate ( GFR) estimation/1.73 sq m using serum, plasma, or whole bOrdered By: Alicia Manzano on 10-21-2024 GFR/1.73 sq M.predicted among non-blacks MDRD (S/P/Bld) [Vol rate/Area] 97 mL/min/{1.73_m2} >60 [facility] Comment on above: mL/min/1.73m2 CKD-EP I Creatinine Equation (2020) Hematocrit Auto (Bld) [Volum e fraction]Ordered By: Alicia Manzano on 10-21-2024 Hematocrit (Bld) [Volume fraction] 36.7 % Low 37-47 [facility] Hemoglobin measurementOrdere d By: Alicia Manznao on 10-21-2024 Hemoglobin (Bld) [Mass/Vol] 12.5 g/dL 12.0-15.0 [facility] LDL calc ser/plasOrdered By: Alicia Manzano on 10-21-2024 Cholesterol in LDL [Mass/Vol] 87 mg/dL [facility] Comment on above: Tiqmfuromj=508-377 m g/dL & Higher Vist=221 mg/dL or greater Laboratory - Chemistry and C hemistry - challengeOrdered By: Alicia Manzano on 10-21-2024 AST [Catalytic activity/Vol] 41 U/L High <32 [facility] Lipid Profileon 10-21-2024 CHOL:HDL 2.54 Normal [facility] Comment on above: Performed By: #### L 100.0500, L500.4100, L500.4050 ####[facility] [address] [place], [address] Cholesterol [Mass/Vol] 167 mg/dL Normal <=200 [facility] Comment on above: Result Comment: Chol esterol level, Desirable <200 mg/dLBorderline high cholesterol 200-239 mg/dLHigh cholesterol >=240 mg/dLRecommendations of the NCEP Adult Treatment Panel for thefollowing risk-cutoff thresholds for the [place] American[place]. Performed By: #### L 100.0500, L500.4100, L500.4050 ####[facility] [address] [place], [address] Cholesterol in HDL [Mass/Vol] 66 mg/dL Normal [facility] Comment on above: Result Comment: Cristin onal Cholesterol Education Program (NCEP) guidelines:<40 mg/dL: Low HDL-cholesterol (major risk factor for CHD)>= 60 mg/dL: High HDL-cholesterol (negative risk factor forCHD)HDL-cholesterol is affected by a number of factors, e.g.smoking, exercise, hormones, sex and age. Performed By: #### L 100.0500, L500.4100, L500.4050 ####[facility] [address] [place], [address] Cholesterol in LDL [Mass/Vol] 87 mg/dL Normal [facility] Comment on above: Result Comment: Bord bkouht=990-825 mg/dL Higher Giqq=543 mg/dL or greater Performed By: #### L 100.0500, L500.4100, L500.4050 ####[facility] [address] [place], [address] Cholesterol in VLDL [Mass/Vol] 14 mg/dL Normal 5-40 [facility] Comment on above: Performed By: #### L 100.0500, L500.4100, L500.4050 ####[facility] [address] [place], [address] Triglyceride [Mass/Vol] 70 mg/dL Normal [facility] Comment on above: Result Comment: The drugs N-Acetylcysteine and Metamizole may falselydepress this assay.Normal range: <150 mg/dLBorderline High: 150-199 mg/dLHigh: 200-499 mg/dLVery High: >500 mg/dL Performed By: #### L 100.0500, L500.4100, L500.4050 ####[facility] [address] [place], [address] MCV (mean corpuscular volume ) determinationOrdered By: Alicia Manzano on 10-21-2024 MCV (RBC) [Entitic vol] 92.7 fL 81-99 [facility] Mean corpuscular hemoglobin (MCH) determinationOrdered By: Alicia Manzano on 10-21-2024 MCH (RBC) [Entitic mass] 31.6 pg 27.0-32.0 [facility] Mean corpuscular hemoglobin concentration (MCHC) determinationOrdered By: Alicia Manzano on 10-21-2024 MCHC (RBC) [Mass/Vol] 34.1 g/dL 32-36 [facility] Mean platelet volume determi nationOrdered By: Alicia Manzano on 10-21-2024 Platelet mean volume (Bld) [Entitic vol] 10.4 fL 6.2-12.0 [facility] Platelet countOrdered By: Neal Manzano on 10-21-2024 Platelets (Bld) [#/Vol] 146 10*3/uL Low 150-450 [facility] Potassium measurement (mass/ volume)Ordered By: Alicia Manzano on 10-21-2024 Potassium (Unsp spec) [Mass/Vol] 4.5 mmol/L 3.3-5.1 [facility] RBC Auto (Bld) [#/Vol]Ordere d By: Alicia Manzano on 10-21-2024 RBC (Bld) [#/Vol] 3.96 10*6/uL Low 4.2-5.4 [facility] Screening total cholesterol/ high density lipoprotein (HDL) cholesterol ratioOrdered By: Alicia Manzano on 10-21-2024 Cholesterol.total/Chol esterol in HDL [Mass ratio] 2.54 {ratio} [facility] Serum creatinine measurement (mass/volume)Ordered By: Alicia Manzano on 10-21-2024 Creatinine [Mass/Vol] 0.72 mg/dL 0.70-1.20 [facility] Serum globulin measurementOr dered By: Alicia Manzano on 10-21-2024 Globulin (S) [Mass/Vol] 2.8 g/dL 2.2-4.2 [facility] Serum glucose measurement (m ass/volume)Ordered By: Alicia Manzano on 10-21-2024 Glucose [Mass/Vol] 118 mg/dL High 70-99 [facility] Serum or plasma alanine amaro otransferase (ALT) measurementOrdered By: Alicia Manzano on 10-21-2024 ALT [Catalytic activity/Vol] 46 U/L High <35 [facility] Serum or plasma albumin hailee urement (mass/volume)Ordered By: Alicia Manzano on 10-21-2024 Albumin [Mass/Vol] 4.3 g/dL 3.5-5.0 [facility] Serum or plasma albumin/glob ulin mass ratioOrdered By: Alicia Manzano on 10-21-2024 Albumin/Globulin [Mass ratio] 1.6 {ratio} 0.9-2.4 [facility] Serum or plasma alkaline caren sphatase measurementOrdered By: Alicia Manzano on 10-21-2024 ALP [Catalytic activity/Vol] 87 U/L 35-104 [facility] Serum or plasma calcium hailee urement (mass/volume)Ordered By: Alicia Manzano 10-21-2024 Calcium [Mass/Vol] 9.4 mg/dL 7.6-11.0 [facility] Serum or plasma cholesterol in HDL measurement (mass/volume)Ordered By: Alicia Manzano on 10-21-2024 Cholesterol in HDL [Mass/Vol] 66 mg/dL >40 [facility] Comment on above: National Cholesterol Education Program (NCEP) guidelines:<40 mg/dL: Low HDL-cholesterol (major risk factor for CHD)>= 60 mg/dL: High HDL-cholesterol (negative risk factor for CHD)HDL-cholesterol is affected by a number of factors, e.g. smoking, exercise, hormones, sex and age. Serum or plasma cholesterol measurement (mass/volume)Ordered By: Alicia Manzano on 10-21-2024 Cholesterol [Mass/Vol] 167 mg/dL <201 [facility] Comment on above: Cholesterol level, D esirable <200 mg/dLBorderline high cholesterol 200-239 mg/dLHigh cholesterol >=240 mg/dLRecommendations of the NCEP Adult Treatment Panel for the following risk-cutoff thresholds for the [place] population. Serum or plasma urea nitroge n measurement (mass/volume)Ordered By: Alicia Manzano on 10-21-2024 Urea nitrogen [Mass/Vol] 12 mg/dL 4-19 [facility] Sodium levelOrdered By: Nico Manzano on 10-21-2024 Sodium [Moles/Vol] 136 mmol/L 133-145 [facility] Total proteinOrdered By: Yanet Manzano on 10-21-2024 Protein [Mass/Vol] 7.1 g/dL 5.9-8.4 [facility] Triglycerides measurementOrd ered By: Alicia Manzano on 10-21-2024 Triglyceride [Mass/Vol] 70 mg/dL <199 [facility] Comment on above: The drugs N-Acetylcy steine and Metamizole may falsely depress this assay. Normal range: <150 mg/dLBorderline High: 150-199 mg/dLHigh: 200-499 mg/dLVery High: >500 mg/dL White blood cell (WBC) count Ordered By: Alicia Manzano on 10-21-2024 WBC (Bld) [#/Vol] 3.3 10*3/uL Low 4.4-11.0 [facility] Cardiology Visit Reporton Cardiology Visit Report Normal [facility] Respiratory Cultureon 2024 RESPC Normal [facility] Comment on above: Performed By: #### M 100.1999, M1.2400 ####[facility] [address] [place], [address] Gram Stainon 09-26-2024 GS Acceptable Specimen? Yes (<25 Epithelial cells per/lpf) Gram Stain 4+ Gram positive cocci 2+ Gram positive rods 1+ Epithelial cells Rare White Blood Cells Normal [facility] Comment on above: Performed By: #### M 100.1999, M100.2400 ####[facility] [address] [place], [address] Gram stainOrdered By: Lauro Mason on 09-26-2024 Microscopic observation Gram stain Nom (Unsp spec) [facility] Microbial respiratory cultur eOrdered By: Lauro Mason on 09-26-2024 Microorganism identified Cx Nom (Unsp spec) Pseudomonas aeruginosa Abnormal [facility] Mycoplasma Pneu IgG / IgMon 09-22-2024 M PNEUMONIA IgG 201 U/mL High 0-99 [facility] Comment on above: Result Comment: Nega tive: <100 Indeterminate: 100 - 320 Positive: >320The reference interval established is intended as abaseline only. Values >100 may indicate a recentinfection with Mycoplasma pneumoniae and need to beconfirmed either by a positive IgM result and/or anadditional specimen drawn 2-4 weeks later showing asignificant increase in antibody levels. Performed By: #### L 0.2400 ####[facility] [address] [place], [address] M PNEUMONIA IgM < 770 Normal 0-769 [facility] Comment on above: Result Comment: Nega tive <770Clinically significant amount of M. pneumoniae antibodynot detected. Low Positive 770 - 950M. pneumoniae specific IgM presumptively detected. Itis recommended that another sample be collected 1-2weeks later to assure reactivity. Positive >950Highly significant amount of M. pneumoniae specificIgM antibody detected.Performed at: [facility] - [facility] [id number] Director: Jose Castillo PhD, Phone: [phone] Performed By: #### L 7000.2400 ####[facility] [address] [place], [place], [address] RESPIRATORY PANEL MOLECULARo n 09-19-2024 RP PANEL Normal [facility] Comment on above: Performed By: #### M 100.638 ####[facility] [address] [place], [place], [address] Respiratory pathogens detect ion panel by molecular detection methodOrdered By: Lauro Mason on 09-19-2024 Respiratory pathogens DNA and RNA panel CAROLINA+probe (Resp) Human [place] Abnormal [facility] Serum Mycoplasma pneumoniae IgG antibody detectionOrdered By: Lauro Mason on 09-19-2024 M. pneumoniae IgG Ql (S) 201 U/mL High 0-99 [facility] Comment on above: Negative: <100 Indet erminate: 100 - 320 Positive: >320The reference interval established is intended as abaseline only. Values >100 may indicate a recentinfection with Mycoplasma pneumoniae and need to beconfirmed either by a positive IgM result and/or anadditional specimen drawn 2-4 weeks later showing asignificant increase in antibody levels. Serum Mycoplasma pneumoniae IgM antibody detectionOrdered By: Lauro Mason on 09-19-2024 M. pneumoniae IgM Ql (S) < 770 U/mL 0-769 [facility] Comment on above: Negative <770Clinica lly significant amount of M. pneumoniae antibodynot detected. Low Positive 770 - 950M. pneumoniae specific IgM presumptively detected. Itis recommended that another sample be collected 1-2weeks later to assure reactivity. Positive >950Highly significant amount of M. pneumoniae specificIgM antibody detected.Performed at: [facility] [id number] Director: Jose Castillo PhD, Phone: [phone] Chest PA and Lateralon 09-17 Chest PA and Lateral Normal [facility] CBC W Auto Differential pane l (Bld)on 08-27-2024 Basophils (Bld) [#/Vol] 10*3/uL Normal <0.11 [facility] Comment on above: Order Comment: Speci men Type: BLOOD SPECIMENOrdering Facility: [facility] Address: [address] [place] [address] Performed By: #### 5 7021-8 ####[facility] LABCLIA [id number] [facility] [address] [place] Basophils/100 WBC (Bld) 0.5 % Normal [facility] Comment on above: Order Comment: Speci men Type: BLOOD SPECIMENOrdering Facility: [facility] Address: [address] [place] [address] Performed By: #### 5 7021-8 ####[facility] LABCLIA [id number] [place] [address] [place] Differential cell count method Nom (Bld) Auto Normal [facility] Comment on above: Order Comment: Speci men Type: BLOOD SPECIMENOrdering Facility: [facility] Address: [address] [place] [address] Performed By: #### 5 7021-8 ####[facility] LABCLIA [id number] [place] [address] [place] Eosinophils (Bld) [#/Vol] 0.09 10*3/uL Normal <0.46 [facility] Comment on above: Order Comment: Speci men Type: BLOOD SPECIMENOrdering Facility: [facility] Address: [address] [place] [address] Performed By: #### 5 7021-8 ####[facility] LABCLIA [id number] [place] [address] [place] Eosinophils/100 WBC (Bld) 2.3 % Normal [facility] Comment on above: Order Comment: Speci men Type: BLOOD SPECIMENOrdering Facility: [facility] Address: [address] [place] [address] Performed By: #### 5 7021-8 ####[facility] LABCLIA [id number] [address], [place] [address] [place] Erythrocyte distribution width (RBC) [Ratio] 18.1 % High 11.5-15.0 [facility] Comment on above: Order Comment: Speci men Type: BLOOD SPECIMENOrdering Facility: [facility] Address: [address] [place] [address] Performed By: #### 5 7021-8 ####[facility] LABCLIA [id number] [address], [place] [address] [place] Hematocrit (Bld) [Volume fraction] 37.1 % Normal 36.0-46.0 [facility] Comment on above: Order Comment: Speci men Type: BLOOD SPECIMENOrdering Facility: [facility] Address: [address] [place] [address] Performed By: #### 5 7021-8 ####[facility] LABIA [id number] [place] [address] [place] Hemoglobin (Bld) [Mass/Vol] 12.3 g/dL Normal 11.5-15.5 [facility] Comment on above: Order Comment: Speci men Type: BLOOD SPECIMENOrdering Facility: [facility] Address: [address] [place] [address] Performed By: #### 5 7021-8 ####[facility] LABIA [id number] [place] [address] [place] Immature granulocytes (Bld) [#/Vol] 10*3/uL Normal <0.10 [facility] Comment on above: Order Comment: Speci men Type: BLOOD SPECIMENOrdering Facility: [facility] Address: [address] [place] [address] Performed By: #### 5 7021-8 ####[facility] LABCLIA [id number] [place] [address] [place] Immature granulocytes/100 WBC (Bld) 0.0 % Normal [facility] Comment on above: Order Comment: Speci men Type: BLOOD SPECIMENOrdering Facility: [facility] Address: [address] [place] [address] Performed By: #### 5 7021-8 ####[facility] LABCLIA [id number] [place] [address] [place] Lymphocytes (Bld) [#/Vol] 1.03 10*3/uL Normal 1.00-4.00 [facility] Comment on above: Order Comment: Speci men Type: BLOOD SPECIMENOrdering Facility: [facility] Address: [address] [place] [address] Performed By: #### 5 7021-8 ####[facility] LABCLIA [id number] [place] [address] [place] Lymphocytes/100 WBC (Bld) 26.9 % Normal [facility] Comment on above: Order Comment: Speci men Type: BLOOD SPECIMENOrdering Facility: [facility] Address: [address] [place] [address] Performed By: #### 5 7021-8 ####[facility] LABCLIA [id number] [place] [address] [place] MCH (RBC) [Entitic mass] 28.9 pg Normal 26.0-34.0 [facility] Comment on above: Order Comment: Speci men Type: BLOOD SPECIMENOrdering Facility: [facility] Address: [address] [place] [address] Performed By: #### 5 7021-8 ####[facility] LABCLIA [id number] [place] [address] [place] MCHC (RBC) [Mass/Vol] 33.2 g/dL Normal 30.5-36.0 [facility] Comment on above: Order Comment: Speci men Type: BLOOD SPECIMENOrdering Facility: [facility] Address: [address] [place] [address] Performed By: #### 5 7021-8 ####[facility] LABCLIA [id number] [address], [place] [address] [place] MCV (RBC) [Entitic vol] 87.3 fL Normal 80.0-100.0 [facility] Comment on above: Order Comment: Speci men Type: BLOOD SPECIMENOrdering Facility: [facility] Address: [address] [place] [address] Performed By: #### 5 7021-8 ####[facility] LABCLIA [id number] [address], [place] [address] [place] Monocytes (Bld) [#/Vol] 0.45 10*3/uL Normal <0.87 [facility] Comment on above: Order Comment: Speci men Type: BLOOD SPECIMENOrdering Facility: [facility] Address: [address] [place] [address] Performed By: #### 5 7021-8 ####[facility] LABCLIA [id number] [place] [address] [place] Monocytes/100 WBC (Bld) 11.7 % Normal [facility] Comment on above: Order Comment: Speci men Type: BLOOD SPECIMENOrdering Facility: [facility] Address: [address] [place] [address] Performed By: #### 5 7021-8 ####[facility] LABCLIA [id number] [address], [facility] [place] Neutrophils (Bld) [#/Vol] 2.24 10*3/uL Normal 1.45-7.50 [facility] Comment on above: Order Comment: Speci men Type: BLOOD SPECIMENOrdering Facility: [facility] Address: [address] [place] [address] Performed By: #### 5 7021-8 ####[facility] LABCLIA [id number] [address] [id number] [place] Neutrophils/100 WBC (Bld) 58.6 % Normal [facility] Comment on above: Order Comment: Speci men Type: BLOOD SPECIMENOrdering Facility: [facility] Address: [address] [place] [address] Performed By: #### 5 7021-8 ####[facility] LABCLIA [id number] [facility] [address], [place] [address] [place] Nucleated RBC (Bld) [#/Vol] 10*3/uL Normal <0.01 [facility] Comment on above: Order Comment: Speci men Type: BLOOD SPECIMENOrdering Facility: [facility] Address: [address] [place] [address] Performed By: #### 5 7021-8 ####[facility] LABCLIA [id number] [facility] [address], [place] [address] [place] Nucleated RBC/100 WBC (Bld) [Ratio] 0.0 /100 WBC Normal [facility] Comment on above: Order Comment: Speci men Type: BLOOD SPECIMENOrdering Facility: [facility] Address: [address] [place] [address] Performed By: #### 5 7021-8 ####[facility] LABCLIA [id number] [address], [place] [address] [place] Platelet mean volume (Bld) [Entitic vol] 11.2 fL Normal 9.0-12.7 [facility] Comment on above: Order Comment: Speci men Type: BLOOD SPECIMENOrdering Facility: [facility] Address: [address] [place] [address] Performed By: #### 5 7021-8 ####[facility] LABCLIA [id number] [place] [address] [place] Platelets (Bld) [#/Vol] 134 10*3/uL Low 150-400 [facility] Comment on above: Order Comment: Speci men Type: BLOOD SPECIMENOrdering Facility: [facility] Address: [address] [place] [address] Result Comment: Resu lts checked and verified.No clot detected. Performed By: #### 5 7021-8 ####[facility] LABIA [id number] [place] [address] [place] RBC (Bld) [#/Vol] 4.25 10*6/uL Normal 3.90-5.20 [facility] Comment on above: Order Comment: Speci men Type: BLOOD SPECIMENOrdering Facility: [facility] Address: [address] [place] [address] Performed By: #### 5 7021-8 ####[facility] LABIA [id number] [place] [address] [place] WBC (Bld) [#/Vol] 3.83 10*3/uL Normal 3.70-11.00 [facility] Comment on above: Order Comment: Speci men Type: BLOOD SPECIMENOrdering Facility: [facility] Address: [address] [place] [address] Performed By: #### 5 7021-8 ####[facility] LABIA [id number] [place] [address] [place] CNOVon 08-27-2024 CNOV Office Visit (INTMWS ) CASSIA HOLLAND ([id number]) 1965 F Date Time Provider Department 08/27/24 9:20 AM SHAHRIAR BROWN INTLIBRA During your visit today, we recorded the following information about you: Pulse Respiration Blood pressure Weight 76/minute 16/minute 140/82 88 kg Shahriar Brown APRN.CNP 08/27/2024 9:45 AM Signed Request a refill at [facility] for your losartan, citalopram, and bupropion. For your left leg swelling, wear compression socks, elevate your leg when resting, get regular exercise, and keep an eye on the swelling; if it worsens, please let us know. Receive your pneumonia vaccine as scheduled today. Continue with your iron supplement and your other current medications (Eliquis, Carvedilol, Wellbutrin) as before. Consider that we may adjust your anti-anxiety medications in a couple of months if you continue feeling well--plan to discuss this possibility around [facility]. Schedule repeat blood work to ensure your blood counts remain within a good range, as we discussed. Attend your follow-up appointments: - See Dr. Manzano at [facility] next week regarding your chest symptoms. - Have your colonoscopy as scheduled - See your brake operator sheet metal (with Anurag) as scheduled. - Return for a general follow-up visit in 3 months to review your progress and any medication adjustments. Shahriar Brown APRN.MOLD MAKING SUPERVISOR 08/27/2024 5:02 PM Signed CC: Patient presents with: Recheck: 3 month follow up HPI Cassia Holland is a 58 year old female who presents today for routine follow up. Recording using enStage software for draft documentation of the visit was discussed with the patient/authorized congressional representative; all questions welcomed and answered. Patient/authorized congressional representative agreed to proceed Liver Fibrosis: - Last blood work showed improvement. 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 - Colonoscopy scheduled for October 01. Anemia: - Reports improvement in fatigue and pallor since treatment for gastric bleeding. - Denies melena, hematochezia, abdominal pain, nausea, or emesis. Anxiety: - Currently taking citalopram 40 mg and Wellbutrin 150 mg. - Recent psychiatric evaluation for disability application without reported concern. - No suicidal or homicidal ideation. - reports sleeping well and normal appetite. - lives with sister Dyspnea: - chronic without change - Dyspnea attributed to weight gain and residual lung damage from COVID-19. - Recent pulmonary function test showed slight improvement. - denies cough, wheezing, fever, chills. Hypertension: - Taking losartan; missed dose today. - Denies chest pain or palpitations. - follows with [facility] and has appointment with them next week. Had a stress test last week. Edema: - Notable edema in the left leg, more pronounced than the right. Allergies: - Seasonal allergies; considering allergy shots. - Follow-up with ENT pending. REVIEW OF SYSTEMS See HPI PAST MEDICAL HISTORY Diagnosis Date Diabetes (HCC) adult onset Fibromyalgia Graves disease High blood pressure HSV-2 infection Interstitial lung disease (HCC) Lupus Mixed connective tissue disease (HCC) Raynaud disease PAST SURGICAL HISTORY Procedure Laterality Date D AND C HYSTERECTOMY LAPAROSCOPY DIAGNOSTIC PAST SURGICAL HISTORY OF 7 sinus surgeries PAST SURGICAL HISTORY OF bilateral cataract surgeries [facility] 12/2022 2 heart stents placed PT ED HEART AND VASCULAR 09/2023 heart ablation TONSILLECTOMY HX ALLERGIES Cantaloupe, Levaquin [Levofloxacin], and Sulfa (Sulfonamide Antibiotics) MEDICATIONS buPROPion XL (WELLBUTRIN XL) 150 mg 24 hr tablet Take 1 tablet by mouth once daily. citalopram (CELEXA) 40 mg tablet Take 1 tablet by mouth once daily. losartan (COZAAR) 50 mg tablet Take 1 tablet by mouth once daily. montelukast (SINGULAIR) 10 mg tablet Take 1 tablet by mouth once daily. metFORMIN ER (GLUCOPHAGE XR) 500 mg 24 hr tablet Take 2 tablets by mouth two times a day with meals. ferrous sulfate 325 mg (65 mg iron) tablet Take 1 tablet by mouth two times a day with meals. budesonide (PULMICORT) 1 mg/2 mL nebulizer solution instill contents of 1 vial IN NASAL SALINE WASHES AND USE TWICE DAILY tiZANidine HCl (ZANAFLEX) 2 mg capsule Take 1 capsule by mouth three times a day as needed. triamcinolone acetonide (KENALOG) 0.1 % cream Apply to affected area two times a day. carvedilol (COREG) 25 mg tablet Take 12.5 mg by mouth two times a day with meals. Takes 12.5mg BID nitroglycerin sublingual (NITROSTAT) 0.4 mg SL tablet Dissolve 0.4 mg under the tongue every 5 minutes as needed for chest pain. hydrOXYchloroQUINE (PLAQUENIL) 200 mg tablet Take 200 mg by mouth once daily. isosorbide mononitra (more content not included)... Normal [facility] metabolic 2000 panelon 08-27-2024 Albumin [Mass/Vol] 4.3 g/dL Normal 3.9-4.9 [facility] Comment on above: Order Comment: Speci men Type: URINE SPECIMEN Ordering Facility: [employer] Address: [address] [place] [address] [address], [place] [address] Performed By: #### 2 890-2 #### [facility] CLIA [id number] [address] [place] [address] [place] ALP [Catalytic activity/Vol] 108 U/L Normal 34-123 [facility] Comment on above: Order Comment: Speci men Type: URINE SPECIMEN Ordering Facility: [employer] Address: [address] [place] [address] [address], [place] [address] Performed By: #### 2 890-2 #### [facility] CLIA [id number] [address] [place] [address] [place] ALT [Catalytic activity/Vol] 49 U/L High 7-38 [facility] Comment on above: Order Comment: Speci men Type: URINE SPECIMEN Ordering Facility: [employer] Address: [address] [place] [address] [address], [place] [address] Performed By: #### 2 890-2 #### [facility] CLIA [id number] [address] [place] [address] [place] Anion gap [Moles/Vol] 10 mmol/L Normal 8-15 [facility] Comment on above: Order Comment: Speci men Type: URINE SPECIMEN Ordering Facility: [employer] Address: [address] [place] [address] [address], [place] [address] Performed By: #### 2 890-2 #### [facility] CLIA [id number] [address] [place] [address] [place] AST [Catalytic activity/Vol] 43 U/L High 13-35 [facility] Comment on above: Order Comment: Speci men Type: URINE SPECIMEN Ordering Facility: [employer] Address: [address] [place] [address] [address], [place] [address] Performed By: #### 2 890-2 #### [facility] CLIA [id number] [address] [place] [address] [place] Bilirubin [Mass/Vol] 0.5 mg/dL Normal 0.2-1.[address] [facility] Comment on above: Order Comment: Speci men Type: URINE SPECIMEN [facility] Address: [address] [place] [address] [address]INAM[address]ADALUPE [address], [place] [address] Performed By: #### 2 890-2 #### [facility] CLIA [id number] [address] [place] [address] [place] Calcium [Mass/Vol] 9.6 mg/dL Normal 8.5-10.2 [facility] Comment on above: Order Comment: Speci men Type: URINE SPECIMEN [facility] Address: [address] [place] [address] [address]IN[address] GUADALUPE [address], [place] [address] Performed By: #### 2 890-2 #### [facility] CLIA [id number] [address] [place] [address] [place] Chloride [Moles/Vol] 102 mmol/L Normal 98-[address] [facility] Comment on above: Order Comment: Speci men Type: URINE SPECIMEN [facility] Address: [address] [place] [address] [address]INAM[address] GUADALUPE [address], [place] [address] Performed By: #### 2 890-2 #### [facility] CLIA [id number] [address] [place] [id number] [place] CO2 [Moles/Vol] 25 mmol/L Normal 22-30 [facility] Comment on above: Order Comment: Speci men Type: URINE SPECIMEN Ordering Facility: [employer] Address: [address] [place] [address] [address] GUADALUPE [address], [place] [address] Performed By: #### 2 890-2 #### [facility] CLIA [id number] [address] [place] [address] [place] Creatinine [Mass/Vol] 0.63 mg/dL Normal 0.58-0.96 [facility] Comment on above: Order Comment: Bradley castellanos Type: URINE SPECIMEN Ordering Facility: [facility] Address: [address] [place], [place] [address] [address] Performed By: #### 2 890-2 #### [facility] CLIA [id number] [address] [place] [address] [facility] [place] Creatinine and Glomerular filtration rate.predicted panel (S/P/Bld) 103 mL/min/1.73m??? Normal >=60 [facility] Comment on above: Order Comment: Bradley castellanos Type: URINE SPECIMEN Ordering Facility: [facility] Address: [address] [place], [place] [address] [address] Result Comment: Arianna mated Glomerular Filtration Rate (eGFR) is calculated using the 2020 CKD-EPI creatinine equation. This equation utilizes serum creatinine, sex, and age as parameters. The creatinine assay has traceable calibration to isotope dilution-mass spectrometry. Refer to KDIGO guidelines for clinical interpretation. In patients with unstable renal function, e.g. those with acute kidney injury, the eGFR may not accurately reflect actual GFR. Performed By: #### 2 890-2 #### [facility] CLIA [id number] [address] [place] [address] [place] Glucose [Mass/Vol] 104 mg/dL High 74-99 [facility] Comment on above: Order Comment: Bradley castellanos Type: URINE SPECIMEN Ordering Facility: [facility] Address: [address] [place], [place] [address]IA GUADALUPE [address]ER, [place] [address] Result Comment: The [place] [employer] (ADA) provides guidance for cutoff values for fasting glucose and random glucose. The ADA defines fasting as no caloric intake for at least 8 hours. Fasting plasma glucose results between 100 to 125 mg/dL indicate increased risk for diabetes (prediabetes). Fasting plasma glucose results greater than or equal to 126 mg/dL meet the criteria for diagnosis of diabetes. In the absence of unequivocal hyperglycemia, results should be confirmed by repeat testing. In a patient with classic symptoms of hyperglycemia or hyperglycemic crisis, random plasma glucose results greater than or equal to 200 mg/dL meet the criteria for diagnosis of diabetes. Reference: Standards of Medical Care in Diabetes 2016, [place] [employer]. Diabetes Care. 2016.39(Suppl 1). Performed By: #### 2 890-2 #### [facility] CLIA [id number] [address] [place] [address] [place] Potassium [Moles/Vol] 5.1 mmol/L Normal 3.7-5.1 [facility] Comment on above: Order Comment: Speci men Type: URINE SPECIMEN [facility] Address: [address] [place] [address] [address]LY [address]ILLER, [place] [address] Performed By: #### 2 890-2 #### [facility] CLIA [id number] [address] [place] [address] [place] Protein [Mass/Vol] 7.3 g/dL Normal 6.3-8.0 [facility] Comment on above: Order Comment: Speci men Type: URINE SPECIMEN [facility] Address: [address] [place] [address] [place] [address] Performed By: #### 2 890-2 #### [facility] CLIA [id number] [address] [place] [address] [place] Sodium [Moles/Vol] 137 mmol/L Normal 136-144 [facility] Comment on above: Order Comment: Speci men Type: URINE SPECIMEN [facility] Address: [address] [place] [address] [place] [address] Performed By: #### 2 890-2 #### [facility] CLIA [id number] [address] [place] [id number] [place] Urea nitrogen [Mass/Vol] 12 mg/dL Normal 7-21 [facility] Comment on above: Order Comment: Speci men Type: URINE SPECIMEN Ordering Facility: [facility] Address: [address] [place], [place] [id number] Performed By: #### 2 890-2 #### [facility] CLIA [id number] [address] [place] [id number] [place] Stress Reporton 08-20-2024 Stress Report Normal [facility] CNOVon 08-19-2024 CNOV Office Visit (UCWSTR ) CASSIA HOLLAND ([id number]) 1965 F Date Time Provider Department 08/19/24 3:15 PM JACQUE ARRIOLA [facility] During your visit today, we recorded the following information about you: Temperature Pulse Respiration Blood pressure 98 degrees 81/minute 18/minute 132/82 Weight 89 kg Jacque Arriola, KENN 08/19/2024 3:56 PM Signed [facility] Subjective Cassia Holland is a 58 year old female. Patient presents with: right foot pain: Stepped on a nail this am HPI 58-year-old female presents for puncture wound to right foot. Patient states that she stepped on a carpet nail this morning twice. She was barefoot. She has 2 small puncture wounds to right heel. No active bleeding. No pain. No drainage. She states she was advised to come in by PCP for tetanus. Unsure when last tetanus was. She does have diabetes. No other complaint PAST MEDICAL HISTORY Diagnosis Date Diabetes (HCC) adult onset Fibromyalgia Graves disease High blood pressure HSV-2 infection Interstitial lung disease (HCC) Lupus Mixed connective tissue disease (HCC) Raynaud disease PAST SURGICAL HISTORY Procedure Laterality Date D AND C HYSTERECTOMY LAPAROSCOPY DIAGNOSTIC PAST SURGICAL HISTORY OF 7 sinus surgeries PAST SURGICAL HISTORY OF bilateral cataract surgeries PT ED HEART AND VASCULAR 12/2022 2 heart stents placed PT ED HEART AND VASCULAR 09/2023 heart ablation TONSILLECTOMY HX ALLERGIES Cantaloupe, Levaquin [Levofloxacin], and Sulfa (Sulfonamide Antibiotics) MEDICATIONS montelukast (SINGULAIR) 10 mg tablet Take 1 tablet by mouth once daily. metFORMIN ER (GLUCOPHAGE XR) 500 mg 24 hr tablet Take 2 tablets by mouth two times a day with meals. ferrous sulfate 325 mg (65 mg iron) tablet Take 1 tablet by mouth two times a day with meals. budesonide (PULMICORT) 1 mg/2 mL nebulizer solution instill contents of 1 vial IN NASAL SALINE WASHES AND USE TWICE DAILY tiZANidine HCl (ZANAFLEX) 2 mg capsule Take 1 capsule by mouth three times a day as needed. citalopram (CELEXA) 40 mg tablet Take 1 tablet by mouth once daily. buPROPion XL (WELLBUTRIN XL) 150 mg 24 hr tablet Take 1 tablet by mouth once daily. triamcinolone acetonide (KENALOG) 0.1 % cream Apply to affected area two times a day. carvedilol (COREG) 25 mg tablet Take 12.5 mg by mouth two times a day with meals. Takes 12.5mg BID nitroglycerin sublingual (NITROSTAT) 0.4 mg SL tablet Dissolve 0.4 mg under the tongue every 5 minutes as needed for chest pain. losartan (COZAAR) 50 mg tablet Take 1 tablet by mouth once daily. hydrOXYchloroQUINE (PLAQUENIL) 200 mg tablet Take 200 mg by mouth once daily. isosorbide mononitrate ER (IMDUR) 30 mg 24 hr tablet Take 30 mg by mouth every morning. lansoprazole (PREVACID) 30 mg capsule take 1 capsule by mouth once daily , 1/2 HOUR BEFORE BREAKFAST fluticasone (FLONASE) 50 mcg/actuation nasal spray instill 2 sprays into each nostril once daily benzonatate (TESSALON PERLES) 100 mg capsule Take 2 capsules by mouth three times a day as needed for cough. apixaban (ELIQUIS) 5 mg tab(s) Take 5 mg by mouth two times a day. pravastatin sodium (PRAVASTATIN ORAL) Take by mouth. clopidogrel (PLAVIX) 75 mg tablet take 4 tablets by mouth on day 1 then 1 tablet by mouth once daily after hydroCHLOROthiazide 25 mg tablet take 1 tablet by mouth once daily EPINEPHrine (EPIPEN) 0.3 mg/0.3 mL auto-injector Use [...] as instructed every 4 hours as needed. Blood-Glucose Meter Dispense 1 kit cephALEXin (KEFLEX) 500 mg capsule Take 1 capsule by mouth four times daily for 5 days. FAMILY HISTORY Problem Relation Age of Onset Heart Mother stents Hypertension Mother other (pacemaker) Mother other (enlarged heart) Mother other (vertigo) Mother Arthritis Mother Prostate Cancer Father other (sjogrens) Sister No Known Problems Maternal Grandmother Heart Attack Maternal Grandfather No Known Problems Paternal Grandmother No Known Problems Paternal Grandfather Social History Tobacco Use Smoking status: Never Smokeless tobacco: Never Vaping Use Vaping status: Never Used Substance Use Topics Alcohol use: Not Currently Comment: Rare Drug use: Never Review of Systems Constitutional: Negative for chills and fever. HENT: Negative for congestion, ear pain and sore throat. Respiratory: Negative for cough and shortness of breath. Cardiovascular: Negative for chest pain. Gastrointestinal: Negative for diarrhea and vomitin (more content not included)... Normal [facility] CNOVon 08-18-2024 CNOV Office Visit (INTMWS ) CASSIA HOLLAND ([id number]) 1965 F Date Time Provider Department 08/18/24 4:00 PM OPAL MATHEWS [facility] During your visit today, we recorded the following information about you: Temperature Pulse Respiration Blood pressure 98.2 degrees 89/minute 16/minute 138/81 Weight 85.3 kg Opal Mathews MD 08/18/2024 4:35 PM Signed We discussed your arm wound: - The wound is bleeding due to your use of Eliquis (a blood thinner). To manage this: - Stop taking Eliquis for 3 days, starting today (Sunday). Resume Eliquis on Sunday. - A pressure bandage has been applied to help stop the bleeding. Leave the bandage in place for 2-3 days and avoid getting it wet. - If the bandage feels too tight or uncomfortable, you may loosen it slightly or reapply it more loosely. - After the bleeding stops, you can apply Vaseline to the wound to keep it moist and promote healing. Cover it lightly with a bandage to protect it. - Watch for signs of infection, such as redness, swelling, warmth, or red streaks spreading from the wound. If you notice any of these symptoms, please contact our office immediately. - You were sent home with additional non-adherent bandages to use if needed. Once the bleeding stops, you will not need to continue using bandages. If you have any questions or concerns, or if the wound does not improve, please let us know. Opal Mathews MD 08/18/2024 5:56 PM Signed Reason for Visit Dig teofilo Florez is a 58-year-old female, with a history of A-fib, presenting with a laceration on the left arm. Cassia reports a laceration on the left arm sustained approximately 1 hour prior to arrival. The injury occurred when one of her cats jumped on her, using her as a jumping board. She has been cleaning the wound with hydrogen peroxide and applying Neosporin, keeping it covered with a bandage. Her sister, who has some nursing training, advised her to seek medical attention due to concerns about the wound's appearance and persistent bleeding. Cassia is currently on Eliquis and another unspecified anticoagulant for A-fib, which was treated in September with a procedure in [place]. She has a follow-up appointment at the end of September to discuss discontinuing Eliquis. She denies allergies except to cantaloupe and Levaquin. Social History Tobacco Use Smoking status: Never Smokeless tobacco: Never Vaping Use Vaping status: Never Used Substance Use Topics Alcohol use: Not Currently Comment: Rare Drug use: Never Past medical history, appointments, medications, allergies reviewed. Pertinent Lab/Diagnostic Studies are reviewed and discussed today Current Outpatient Medications: montelukast (SINGULAIR) 10 mg tablet metFORMIN ER (GLUCOPHAGE XR) 500 mg 24 hr tablet ferrous sulfate 325 mg (65 mg iron) tablet budesonide (PULMICORT) 1 mg/2 mL nebulizer solution tiZANidine HCl (ZANAFLEX) 2 mg capsule citalopram (CELEXA) 40 mg tablet buPROPion XL (WELLBUTRIN XL) 150 mg 24 hr tablet triamcinolone acetonide (KENALOG) 0.1 % cream carvedilol (COREG) 25 mg tablet nitroglycerin sublingual (NITROSTAT) 0.4 mg SL tablet losartan (COZAAR) 50 mg tablet hydrOXYchloroQUINE (PLAQUENIL) 200 mg tablet isosorbide mononitrate ER (IMDUR) 30 mg 24 hr tablet lansoprazole (PREVACID) 30 mg capsule fluticasone (FLONASE) 50 mcg/actuation nasal spray benzonatate (TESSALON PERLES) 100 mg capsule apixaban (ELIQUIS) 5 mg tab(s) pravastatin sodium (PRAVASTATIN ORAL) clopidogrel (PLAVIX) 75 mg tablet hydroCHLOROthiazide 25 mg tablet EPINEPHrine (EPIPEN) 0.3 mg/0.3 mL auto-injector lancets (tenXerTOUCH DELICA PLUS LANCET) 33 gauge blood sugar diagnostic (tenXerTOUCH ULTRA TEST) test strip levalbuterol tartrate HFA (XOPENEX HFA) 45 mcg/actuation inhaler Blood-Glucose Meter Health Maintenance Depression Screening Anxiety Screening BP Controlled (<130/80) Pneumococcal Vaccine: 50+(1 of 2 - PCV) Colorectal Cancer Screening Mammogram Screening@ Review Of Systems Skin: (+) open wound on left arm with bleeding, (+) local soreness Physical Exam BP 138/81 Pulse 89 Temp 36.8 ?C (98.2 ?F) (Temporal) Resp 16 Wt 85.3 kg (188 lb) BMI 34.11 kg/m? GENERAL: NAD, alert and oriented. SKIN: Laceration on the arm, avulsed skin linearly which is approximately but there is a circular area which is open. seeping blood. No signs of infection noted. HEAD: Normocephalic. EYES: PERRLA, EOMI, conjunctiva clear. LUNGS: Clear to auscultation bilaterally, no wheezes/rhonchi/rales. HEART: Regular rate and rhythm, no murmurs. No ectopy. EXTREMITIES: Normal, no deformities, no skin discoloration, no edema. NEURO: Awake, alert and oriented x3, cranial nerves II-XII grossly intact, normal gait, no involuntary motions. Assessment and Plan 1. Dog scratch (W54.8XXA) Bleeding from wound (T14.8XXA) Persistent blee (more content not included)... Normal [facility] Anion gap in Serum or Plasma Ordered By: Meg Painting on 07-31-2024 Anion gap [Moles/Vol] 12 mmol/L - [facility] BUN/creatinine ratioOrdered By: Meg Painting on 07-31-2024 Urea nitrogen/Creatinine [Mass ratio] 18.0 mg/mg - [facility] Basic Metabolic Profile (BMP )on 07-31-2024 BUN/CRE 18.0 RATIO Normal 02-23 [facility] Comment on above: Performed By: #### L 500.2500 ####[facility] [address] [place], [address] Calcium [Mass/Vol] 9.0 mg/dL Normal 7.6-11.0 [facility] Comment on above: Performed By: #### L 500.2500 ####[facility] [address] [place], [address] Chloride [Moles/Vol] 101 mmol/L Normal 98-108 [facility] Comment on above: Performed By: #### L 500.2500 ####[facility] [address] [place], [address] CO2 [Moles/Vol] 21.6 mmol/L Normal 21.0-32.0 [facility] Comment on above: Performed By: #### L 500.2500 ####[facility] [address] [place], [address] Creatinine [Mass/Vol] 0.68 mg/dL Low 0.70-1.20 [facility] Comment on above: Performed By: #### L 500.2500 ####[facility] [address] [place], [address] GAP 12 Normal 5-15 [facility] Comment on above: Performed By: #### L 500.2500 ####[facility] [address] [place], [address] GFR/1.73 sq M.predicted among non-blacks MDRD (S/P/Bld) [Vol rate/Area] 101 mL/min/{1.73_m2} Normal >60 [facility] Comment on above: Result Comment: mL/m in/1.73m2 CKD-EPI Creatinine Equation (2020) Performed By: #### L 500.2500 ####[facility] [address] [place], [address] Glucose [Mass/Vol] 81 mg/dL Normal 70-99 [facility] Comment on above: Performed By: #### L 500.2500 ####[facility] [address] [place], [address] Potassium [Moles/Vol] 4.9 mmol/L Normal 3.3-5.1 [facility] Comment on above: Performed By: #### L 500.2500 ####[facility] [address] [place], [address] Sodium [Moles/Vol] 134 mmol/L Normal 133-145 [facility] Comment on above: Performed By: #### L 500.2500 ####[facility] [address] [place], [address] Urea nitrogen [Mass/Vol] 12 mg/dL Normal 4-19 [facility] Comment on above: Performed By: #### L 500.2500 ####[facility] [address] [place], [address] Carbon dioxide, total [Moles /volume] in Central venous bloodOrdered By: Meg Painting on 07-31-2024 CO2 [Moles/Vol] 21.6 mmol/L 21.0-32.0 [facility] Chloride assayOrdered By: Vanessa Painting on 07-31-2024 Chloride [Moles/Vol] 101 mmol/L 98-108 [facility] GFR/1.73 sq M.predicted debby g non-blacks MDRD (S/P/Bld) [Vol rate/Area]Ordered By: Meg Painting on 07-31-2024 Estimated GFR (MDRD) Non-Af Amer 101 >60 [facility] Comment on above: mL/min/1.73m2 CKD-EP I Creatinine Equation (2020) Glomerular filtration rate ( GFR) estimation/1.73 sq m using serum, plasma, or whole bOrdered By: Meg Painting on 07-31-2024 GFR/1.73 sq M.predicted among non-blacks MDRD (S/P/Bld) [Vol rate/Area] 101 mL/min/{1.73_m2} >60 [facility] Comment on above: mL/min/1.73m2 CKD-EP I Creatinine Equation (2020) Potassium (Unsp spec) [Mass/ Vol]Ordered By: Meg Painting on 07-31-2024 Potassium [Moles/Vol] 4.9 mmol/L 3.3-5.1 [facility] Potassium measurement (mass/ volume)Ordered By: Meg Painting on 07-31-2024 Potassium (Unsp spec) [Mass/Vol] 4.9 mmol/L 3.3-5.1 [facility] Serum creatinine measurement (mass/volume)Ordered By: Meg Painting on 07-31-2024 Creatinine [Mass/Vol] 0.68 mg/dL Low 0.70-1.20 [facility] Serum glucose measurement (m ass/volume)Ordered By: Meg Painting on 07-31-2024 Glucose [Mass/Vol] 81 mg/dL 70-99 [facility] Serum or plasma calcium hailee urement (mass/volume)Ordered By: Meg Painting on 07-31-2024 Calcium [Mass/Vol] 9.0 mg/dL 7.6-11.0 [facility] Serum or plasma urea nitroge n measurement (mass/volume)Ordered By: Meg Painting on 07-31-2024 Urea nitrogen [Mass/Vol] 12 mg/dL - [facility] Sodium levelOrdered By: Tao Painting on 07-31-2024 Sodium [Moles/Vol] 134 mmol/L 133-145 [facility] Chest without Contraston Chest without Contrast Normal [facility] MR/PAT.ANEon 07-25-2024 MR/PAT.ANE Normal [facility] Nasopharyngeal Cultureon NAC Normal [facility] Comment on above: Performed By: #### M 100.2500, M100.1999 ####[facility] [address] [place], [address] Gram Stainon 07-22-2024 GS Gram Stain No organisms seen Rare White Blood Cells Normal [facility] Comment on above: Performed By: #### M 100.2500, M100.1999 ####[facility] [address] [place], [address] Gram stainOrdered By: Mario lambert on 07-21-2024 Microscopic observation Gram stain Nom (Unsp spec) [facility] Nasopharyngeal cultureOrdere d By: Mario Mcdaniel on 07-21-2024 Nasopharyngeal Culture Pseudomonas aeruginosa Abnormal [facility] Anion gap in Serum or Plasma Ordered By: Alicia Manzano on 07-17-2024 Anion gap [Moles/Vol] 12 mmol/L 09-18 [facility] BUN/creatinine ratioOrdered By: Alicia Manzano on 07-17-2024 Urea nitrogen/Creatinine [Mass ratio] 18.3 mg/mg - [facility] Basic Metabolic Profile (BMP )on 07-17-2024 BUN/CRE 18.3 RATIO Normal 02-23 [facility] Comment on above: Performed By: #### L 500.2500 ####[facility] [address] [place], [address] Calcium [Mass/Vol] 9.0 mg/dL Normal 7.6-11.0 [facility] Comment on above: Performed By: #### L 500.2500 ####[facility] [address] [place], [address] Chloride [Moles/Vol] 94 mmol/L Low 98-108 [facility] Comment on above: Performed By: #### L 500.2500 ####[facility] [address] [place], [address] CO2 [Moles/Vol] 22.5 mmol/L Normal 21.0-32.0 [facility] Comment on above: Performed By: #### L 500.2500 ####[facility] [address] [place], [address] Creatinine [Mass/Vol] 0.65 mg/dL Low 0.70-1.20 [facility] Comment on above: Performed By: #### L 500.2500 ####[facility] [address] [place], [address] GAP 12 Normal 5-15 [facility] Comment on above: Performed By: #### L 500.2500 ####[facility] [address] [place], [address] GFR/1.73 sq M.predicted among non-blacks MDRD (S/P/Bld) [Vol rate/Area] 102 mL/min/{1.73_m2} Normal >60 [facility] Comment on above: Result Comment: mL/m in/1.73m2 CKD-EPI Creatinine Equation (2020) Performed By: #### L 500.2500 ####[facility] [address] [place], [address] Glucose [Mass/Vol] 108 mg/dL High 70-99 [facility] Comment on above: Performed By: #### L 500.2500 ####[facility] [address] [place], [address] Potassium [Moles/Vol] 4.4 mmol/L Normal 3.3-5.1 [facility] Comment on above: Performed By: #### L 500.2500 ####[facility] [address] [place], [address] Sodium [Moles/Vol] 128 mmol/L Low 133-145 [facility] Comment on above: Performed By: #### L 500.2500 ####[facility] [address] [facility] [address] Urea nitrogen [Mass/Vol] 12 mg/dL Normal 4-19 [facility] Comment on above: Performed By: #### L 500.2500 ####[facility] [address] [place], [address] Carbon dioxide, total [Moles /volume] in Central venous bloodOrdered By: Alicia Manzano on 07-17-2024 CO2 [Moles/Vol] 22.5 mmol/L 21.0-32.0 [facility] Chloride assayOrdered By: Neal Manzano on 07-17-2024 Chloride [Moles/Vol] 94 mmol/L Low 98-108 [facility] GFR/1.73 sq M.predicted debby g non-blacks MDRD (S/P/Bld) [Vol rate/Area]Ordered By: Alicia Manzano on 07-17-2024 Estimated GFR (MDRD) Non-Af Amer 102 >60 [facility] Comment on above: mL/min/1.73m2 CKD-EP I Creatinine Equation (2020) Glomerular filtration rate ( GFR) estimation/1.73 sq m using serum, plasma, or whole bOrdered By: Alicia Manzano on 07-17-2024 GFR/1.73 sq M.predicted among non-blacks MDRD (S/P/Bld) [Vol rate/Area] 102 mL/min/{1.73_m2} >60 [facility] Comment on above: mL/min/1.73m2 CKD-EP I Creatinine Equation (2020) Potassium (Unsp spec) [Mass/ Vol]Ordered By: Alicia Manzano on 07-17-2024 Potassium [Moles/Vol] 4.4 mmol/L 3.3-5.1 [facility] Potassium measurement (mass/ volume)Ordered By: Alicia Manzano on 07-17-2024 Potassium (Unsp spec) [Mass/Vol] 4.4 mmol/L 3.3-5.1 [facility] Serum creatinine measurement (mass/volume)Ordered By: Alicia Manzano on 07-17-2024 Creatinine [Mass/Vol] 0.65 mg/dL Low 0.70-1.20 [facility] Serum glucose measurement (m ass/volume)Ordered By: Alicia Manzano on 07-17-2024 Glucose [Mass/Vol] 108 mg/dL High 70-99 [facility] Serum or plasma calcium hailee urement (mass/volume)Ordered By: Alicia Manzano on 07-17-2024 Calcium [Mass/Vol] 9.0 mg/dL 7.6-11.0 [facility] Serum or plasma urea nitroge n measurement (mass/volume)Ordered By: Alicia Manzano on 07-17-2024 Urea nitrogen [Mass/Vol] 12 mg/dL 4-19 [facility] Sodium levelOrdered By: Nico Manzano on 07-17-2024 Sodium [Moles/Vol] 128 mmol/L Low 133-145 [facility] Cardiology Visit Reporton Cardiology Visit Report Normal [facility] C3 SerPl-mCncon 06-25-2024 Complement C3 [Mass/Vol] 130 mg/dL Normal 86-166 [facility] Comment on above: Order Comment: Speci men Type: BLOOD SPECIMENOrdering Facility: [facility] Address: [address] [place], [place] [address], [place] [address] Performed By: #### 4 485-9, 1987-09, 19269-5, 4498-2 ####[facility] [id number] [place] [address] [place] C4 SerPl-mCncon 06-25-2024 Complement C4 [Mass/Vol] 13 mg/dL Normal 13-46 [facility] Comment on above: Order Comment: Speci men Type: BLOOD SPECIMENOrdering Facility: [facility] Address: [address] [place] [address] Performed By: #### 4 485-9, 1987-5, 45186-0, 4498-2 ####[facility] [id number] [place] [address] [place] CBC W Auto Differential pane l (Bld)on 06-25-2024 Basophils (Bld) [#/Vol] 10*3/uL Normal <0.11 [facility] Comment on above: Order Comment: Speci emanuel Type: BLOOD SPECIMENOrdering Facility: [facility] Address: [address] [place] [address] Performed By: #### 5 7021-8, 4537-7 ####[facility] [id number] [place] [address] [place] Basophils/100 WBC (Bld) 0.3 % Normal [facility] Comment on above: Order Comment: Speci emanuel Type: BLOOD SPECIMENOrdering Facility: [facility] Address: [address] [place] [address], [place] [address] Performed By: #### 5 7021-8, 7-7 ####[facility] [id number] [place] [address] [place] Differential cell count method Nom (Bld) Auto Normal [facility] Comment on above: Order Comment: Speci emanuel Type: BLOOD SPECIMENOrdering Facility: [facility] Address: [address] [place] [address] Performed By: #### 5 7021-8, 4267-7 ####[facility] [id number] [place] [id number] [place] Eosinophils (Bld) [#/Vol] 0.08 10*3/uL Normal <0.46 [facility] Comment on above: Order Comment: Speci men Type: BLOOD SPECIMENOrdering Facility: [facility] Address: [address] [place] [address] [address], [place] [address] Performed By: #### 5 7021-8, 4537-7 ####[facility]IA [id number] [place] [address] [place] Eosinophils/100 WBC (Bld) 2.3 % Normal [facility] Comment on above: Order Comment: Speci men Type: BLOOD SPECIMENOrdering Facility: [facility] Address: [address] [place], [place] [address] GUADAL[address] , [place] [address] Performed By: #### 5 7021-8, 4537-7 ####[facility]IA [id number] [place] [address] [place] Erythrocyte distribution width (RBC) [Ratio] 15.5 % High 11.5-15.0 [facility] Comment on above: Order Comment: Speci men Type: BLOOD SPECIMENOrdering Facility: [employer] Address: [address] [place], [place] [address] GU[address]AL[address] , [place] [address] Performed By: #### 5 7021-8, 4537-7 ####[facility]IA [id number] [place] [address] [place] Hematocrit (Bld) [Volume fraction] 32.3 % Low 36.0-46.0 [facility] Comment on above: Order Comment: Speci men Type: BLOOD SPECIMENOrdering Facility: [employer] Address: [address] [place] [address] [place] , [place] [address] Performed By: #### 5 7021-8, 4537-7 ####[facility] LABIA [id number] [place] [address] [place] Hemoglobin (Bld) [Mass/Vol] 10.0 g/dL Low 11.5-15.5 [facility] Comment on above: Order Comment: Speci men Type: BLOOD SPECIMENOrdering Facility: [employer] Address: [address] [place] [address], [place] [address] Performed By: #### 5 7021-8, 4537-7 ####[facility]IA [id number] [place] [address] [place] Immature granulocytes (Bld) [#/Vol] 10*3/uL Normal <0.10 [facility] Comment on above: Order Comment: Speci men Type: BLOOD SPECIMENOrdering Facility: [facility] Address: [address] [place] [address], [place] [address] Performed By: #### 5 7021-8, 4537-7 ####[facility] [id number] [place] [address] [place] Immature granulocytes/100 WBC (Bld) 0.3 % Normal [facility] Comment on above: Order Comment: Speci men Type: BLOOD SPECIMENOrdering Facility: [facility] Address: [address] [place] [address], [place] [address] Performed By: #### 5 7021-8, 4537-7 ####[facility] [id number] [place] [address] [place] Lymphocytes (Bld) [#/Vol] 0.98 10*3/uL Low 1.00-4.00 [facility] Comment on above: Order Comment: Speci men Type: BLOOD SPECIMENOrdering Facility: [facility] Address: [address] [place] [address], [place] [address] Performed By: #### 5 7021-8, 4537-7 ####[facility] [id number] [place] [address] [place] Lymphocytes/100 WBC (Bld) 28.7 % Normal [facility] Comment on above: Order Comment: Speci men Type: BLOOD SPECIMENOrdering Facility: [facility] Address: [address] [place] [address], [place] [address] Performed By: #### 5 7021-8, 7-7 ####[facility] LABCLIA [id number] [place] [address] [place] MCH (RBC) [Entitic mass] 27.4 pg Normal 26.0-34.0 [facility] Comment on above: Order Comment: Speci men Type: BLOOD SPECIMENOrdering Facility: [facility] Address: [address] [place], [place] [address] [address] Performed By: #### 5 7021-8, 4537-7 ####[facility] [id number] [place] [address] [place] MCHC (RBC) [Mass/Vol] 31.0 g/dL Normal 30.5-36.0 [facility] Comment on above: Order Comment: Speci men Type: BLOOD SPECIMENOrdering Facility: [facility] Address: [address] [place], [place] [address] [address] Performed By: #### 5 7021-8, 4536-7 ####[facility] [id number] [place] [address] [place] MCV (RBC) [Entitic vol] 88.5 fL Normal 80.0-100.0 [facility] Comment on above: Order Comment: Speci men Type: BLOOD SPECIMENOrdering Facility: [facility] Address: [address] [place], [place] [address] [address] Performed By: #### 5 7021-8, 4537-7 ####[facility]IA [id number] [place] [id number] [place] Monocytes (Bld) [#/Vol] 0.37 10*3/uL Normal <0.87 [facility] Comment on above: Order Comment: Speci men Type: BLOOD SPECIMENOrdering Facility: [facility] Address: [address] [place] [address] Performed By: #### 5 7021-8, 4536-7 ####[facility] LABCLIA [id number] [place] [address] [place] Monocytes/100 WBC (Bld) 10.9 % Normal [facility] Comment on above: Order Comment: Speci men Type: BLOOD SPECIMENOrdering Facility: [facility] Address: [address] [place] [address] Performed By: #### 5 7021-8, 7 ####[facility] LABCLIA [id number] [place] [address] [place] Neutrophils (Bld) [#/Vol] 1.96 10*3/uL Normal 1.45-7.50 [facility] Comment on above: Order Comment: Speci men Type: BLOOD SPECIMENOrdering Facility: [facility] Address: [address] [place] [address] Performed By: #### 5 7021-8, 7 ####[facility]IA [id number] [place] [address] [place] Neutrophils/100 WBC (Bld) 57.5 % Normal [facility] Comment on above: Order Comment: Speci men Type: BLOOD SPECIMENOrdering Facility: [facility] Address: [address] [place] [address] Performed By: #### 5 7021-8, 7 ####[facility] LABCLIA [id number] [place] [id number] [place] Nucleated RBC (Bld) [#/Vol] 10*3/uL Normal <0.01 [facility] Comment on above: Order Comment: Speci men Type: BLOOD SPECIMENOrdering Facility: [facility] Address: [address] [place] [address] Performed By: #### 5 7021-8, 4536-7 ####[facility] LABCLIA [id number] [address] [address] [place] Nucleated RBC/100 WBC (Bld) [Ratio] 0.0 /100 WBC Normal [facility] Comment on above: Order Comment: Speci men Type: BLOOD SPECIMENOrdering Facility: [employer],[facility] Address: [address] [place], [place] [address] Performed By: #### 5 7021-8, 4537-7 ####[facility]IA [id number] [place] [id number] [place] Platelet mean volume (Bld) [Entitic vol] 10.9 fL Normal 9.0-12.7 [facility] Comment on above: Order Comment: Speci men Type: BLOOD SPECIMENOrdering Facility: [employer],[facility] Address: [address] [place], [place] [address] Performed By: #### 5 7021-8, 4537-7 ####[facility]IA [id number] [place] [address] [place] Platelets (Bld) [#/Vol] 165 10*3/uL Normal 150-400 [facility] Comment on above: Order Comment: Speci men Type: BLOOD SPECIMENOrdering Facility: [employer],[facility] Address: [address] [place] [address] Performed By: #### 5 7021-8, 4537-7 ####[facility] [id number] [place] [id number] [place] RBC (Bld) [#/Vol] 3.65 10*6/uL Low 3.90-5.20 [facility] Comment on above: Order Comment: Speci men Type: BLOOD SPECIMENOrdering Facility: [employer],[facility] Address: [address] [place] [address] Performed By: #### 5 7021-8, 4537-7 ####[facility]IA [id number] [place] [address] [place] WBC (Bld) [#/Vol] 3.41 10*3/uL Low 3.70-11.00 [facility] Comment on above: Order Comment: Speci men Type: BLOOD SPECIMENOrdering Facility: [facility] Address: [address] [place], [place] [address]MARIA GUADALUPE , [place] [address] Performed By: #### 5 7021-8, 4537-7 ####[facility] LABCLIA [id number] [place] [address] [place] CREATININE BLDon 06-25-2024 Creatinine [Mass/Vol] 0.67 mg/dL Normal 0.58-0.96 [facility] Comment on above: Order Comment: Speci men Type: URINE SPECIMEN Ordering Facility: [facility] Address: [address] [place] [address] Performed By: #### 2 890-2 #### [facility] CLIA [id number] [address] [place] [address] [place] Creatinine and Glomerular filtration rate.predicted panel (S/P/Bld) 101 mL/min/1.73m??? Normal >=60 [facility] Comment on above: Order Comment: Speci men Type: URINE SPECIMEN Ordering Facility: [facility] Address: [address] [place], [place] [address] , [place] [address] Result Comment: Arianna mated Glomerular Filtration Rate (eGFR) is calculated using the 2020 CKD-EPI creatinine equation. This equation utilizes serum creatinine, sex, and age as parameters. The creatinine assay has traceable calibration to isotope dilution-mass spectrometry. Refer to KDIGO guidelines for clinical interpretation. In patients with unstable renal function, e.g. those with acute kidney injury, the eGFR may not accurately reflect actual GFR. Performed By: #### 2 890-2 #### [facility] CLIA [id number] [address] [place] [address] [place] CRP SerPl-mCncon 06-25-2024 CRP [Mass/Vol] 0.5 mg/dL Normal <0.9 [facility] Comment on above: Order Comment: Speci emanuel Type: BLOOD SPECIMENOrdering Facility: [facility] Address: [address] [place] [address] Performed By: #### 4 485-9, 1988-5, 06769-1, 4498-2 ####[facility] LABCLIA [id number] [address] [place] DNA ANTIBODY DS BLDon 2024 DNA ANTIBODY 101 IU/mL Normal <=200 [facility] Comment on above: Order Comment: Bradley castellanos Type: BLOOD SPECIMENOrdering Facility: [facility] Address: [address] [place] [address] Result Comment: Nega tive: <200 IU/mL Equivocal: 201-300 IU/mL Moderate Positive: 301-800 IU/mL Strong Positive: >801 IU/mL Performed By: #### D NAAB ####[facility] LABCLIA [id number] [address] [place] DNA ANTIBODY QUALITATIVE INTERPRETATION Negative Normal Negative [facility] Comment on above: Order Comment: Bradley castellanos Type: BLOOD SPECIMENOrdering Facility: [facility] Address: [address] [place] [address] Performed By: #### D NAAB ####[facility] LABCLIA [id number] [place] [address] [place] ESR Westergren method (Bld) [Velocity]on 06-25-2024 ESR (Bld) [Velocity] 20 mm/h Normal 0-[address] [facility] Comment on above: Order Comment: Brdaley castellanos Type: BLOOD SPECIMENOrdering Facility: [facility] Address: [address] [place] [address] Performed By: #### 5 7021-8, 4537-7 ####[facility] LABCLIA [id number] [address] [address] [place] Hepatic function 2000 panelo n 06-25-2024 Albumin [Mass/Vol] 4.1 g/dL Normal 3.9-4.9 [facility] Comment on above: Order Comment: Speci men Type: BLOOD SPECIMENOrdering Facility: [facility] Address: [address] [place] [address] [place] MILLER, [place] [address] Performed By: #### 4 485-9, 1987-09, 88903-2, 4498-2 ####[facility]IA [id number] [address] [address] [place] ALP [Catalytic activity/Vol] 110 U/L Normal 34-123 [facility] Comment on above: Order Comment: Speci men Type: BLOOD SPECIMENOrdering Facility: [employer],[facility] Address: [address] [place], [place] [address]MAR[place] GUADALUPE [place]ILLER, [place] [address] Performed By: #### 4 485-9, 1987-09, 99858-0, 449-2 ####[facility] [id number] [address] [address] [place] ALT [Catalytic activity/Vol] 37 U/L Normal 7-38 [facility] Comment on above: Order Comment: Speci men Type: BLOOD SPECIMENOrdering Facility: [facility] Address: [address] [place] [address] [place]ILLER, [place] [address] Performed By: #### 4 485-9, 1987-09, 50563-1, 449-2 ####[facility] LABIA [id number] [address] [address] [place] AST [Catalytic activity/Vol] 42 U/L High 13-35 [facility] Comment on above: Order Comment: Speci men Type: BLOOD SPECIMENOrdering Facility: [employer] Address: [address] [place], [place] [address]MAR[place] GU[place]ER, [place] [address] Performed By: #### 4 485-9, 1987-09, 65952-5, 449-2 ####[facility]IA [id number] [address] [address] [place] Bilirubin [Mass/Vol] 0.2 mg/dL Normal 0.2-1.[address] [facility] Comment on above: Order Comment: Speci men Type: BLOOD SPECIMENOrdering Facility: [facility] Address: [address] [place] [address] [place] MILLER, [place] [address] Performed By: #### 4 485-9, 1987-09, 68632-2, 4498-2 ####[facility]IA [id number] [place] [id number] [place] Bilirubin.conjugated [Mass/Vol] 0.1 mg/dL Normal <0.3 [facility] Comment on above: Order Comment: Speci men Type: BLOOD SPECIMENOrdering Facility: [employer],[facility] Address: [address] [place] [address] CR[place]Y MILLER, [place] [address] Performed By: #### 4 485-9, 1987-09, , 4498-2 ####[facility] [id number] [place] [id number] [place] Protein [Mass/Vol] 7.0 g/dL Normal 6.3-8.0 [facility] Comment on above: Order Comment: Speci men Type: BLOOD SPECIMENOrdering Facility: [facility] Address: [address] [place] [address] [place] MILLER, [place] [address] Performed By: #### 4 485-9, 1987-09, 95316-9, 4498-2 ####[facility] [id number] [place] [id number] [place] Prot/Creat Uron 06-25-2024 Protein/Creatinine (U) [Mass ratio] 0.22 mg/mg High <0.15 [facility] Comment on above: Order Comment: Speci men Type: URINE SPECIMEN [facility] Address: [address] [place] [address] [place] [address] Result Comment: Adul t Proteinuria Categories: <0.15 mg/mg is considered normal to mildly increased 0.15 - 0.50 mg/mg is considered moderately increased >0.50 mg/mg is considered severely increased KDIGO. (2013). KDIGO 2012 Clinical Practice Guideline for the Evaluation and Management of Chronic Kidney Disease. Official Journal of the International Society of Nephrology, 3(1), 1-150. Performed By: #### 2 890-2 #### [facility] CLIA [id number] [address] [place] [id number] [place] Protein/Creatinine (U) [Mass ratio]on 06-25-2024 Creatinine (U) [Mass/Vol] 44.9 mg/dL Normal 20.0-300.0 [facility] Comment on above: Order Comment: Speci men Type: URINE SPECIMEN Ordering Facility: [facility] Address: [address] [place], [place] [address]MARIA GUADALUPE MILLER, [place] [address] Performed By: #### 2 890-2 #### [facility] CLIA [id number] [address] [place] [address] [place] Protein (U) [Mass/Vol] 10 mg/dL Normal 0-20 [facility] Comment on above: Order Comment: Speci men Type: URINE SPECIMEN Ordering Facility: [facility] Address: [address] [place], [place] [address]MAR[place] GUADALUPE MILLER, [place] [address] Performed By: #### 2 890-2 #### [facility] CLIA [id number] [address] [place], [place] [id number] [place] Urinalysis complete panel (U )on 06-25-2024 BACTERIA UL 2977.2 uL High Negative [facility] Comment on above: Order Comment: Speci men Type: URINE SPECIMEN Ordering Facility: [facility] [place] Address: [address] [place], [place] [address]MAR[place] GUADALUPE MILLER, [place] [address] Performed By: #### 2 890-2 #### [facility] [place] [id number] [address] [place], [place] [address] [place] Bilirubin Ql (U) Negative Normal Negative [facility] Comment on above: Order Comment: Speci men Type: URINE SPECIMEN [facility] Address: [address] [place] [address] [place] [address] Performed By: #### 2 890-2 #### [facility] CLIA [id number] [address] [place] [address] [place] Clarity (Unsp spec) Cloudy Abnormal Clear [facility] Comment on above: Order Comment: Speci men Type: URINE SPECIMEN [facility] Address: [address] [place], [place] [address] [address] Performed By: #### 2 890-2 #### [facility] CLIA [id number] [address] [place] [address] [place] Color (U) Yellow Normal Yellow [facility] Comment on above: Order Comment: Speci men Type: URINE SPECIMEN [facility] Address: [address] [place] [address], [place] [address] Performed By: #### 2 890-2 #### [facility] CLIA [id number] [address] [place] [address] [place] Epithelial cells LM.HPF (Urine sed) [#/Area] None Seen Normal [facility] Comment on above: Order Comment: Speci men Type: URINE SPECIMEN [facility] Address: [address] [place] [address] [place] , [place] [address] Performed By: #### 2 890-2 #### [facility] CLIA [id number] [address] [place] [address] [place] Glucose Test strip (U) [Mass/Vol] Negative Normal Negative [facility] Comment on above: Order Comment: Speci men Type: URINE SPECIMEN [facility] Address: [address] [place] [address] [place] [address] Performed By: #### 2 890-2 #### [facility] CLIA [id number] [address] [place] [address] [place] Hemoglobin Ql (U) Negative Normal Negative [facility] Comment on above: Order Comment: Speci men Type: URINE SPECIMEN [facility] Address: [address] [place], [place] [address] , [place] [address] Performed By: #### 2 890-2 #### [facility] CLIA [id number] [address] [place] [address] [place] Hyaline casts (Urine sed) [#/Area] 0 /[LPF] Normal 0 /LPF [facility] Comment on above: Order Comment: Speci men Type: URINE SPECIMEN [facility] Address: [address] [place], [place] [address] , [place] [address] Performed By: #### 2 890-2 #### [facility] CLIA [id number] [address] [place] [address] [place] Ketones Ql (U) Negative Normal Negative [facility] Comment on above: Order Comment: Speci men Type: URINE SPECIMEN [facility] Address: [address] [place], [place] [address]MARIA GUADALUPE , [place] [address] Performed By: #### 2 890-2 #### [facility] CLIA [id number] [facility] [place] [address] [place] Leukocyte esterase Test strip Ql (U) 2+ Abnormal Negative [facility] Comment on above: Order Comment: Speci men Type: URINE SPECIMEN [facility] Address: [address] [place], [place] [address]MAR[place] GUADALUPE MILLER, [place] [address] Performed By: #### 2 890-2 #### [facility] CLIA [id number] [address] [place] [address] [place] Nitrite Ql (U) Negative Normal Negative [facility] Comment on above: Order Comment: Speci men Type: URINE SPECIMEN [facility] Address: [address] [place] [address] CAR[place] MILLER, [place] [address] Performed By: #### 2 890-2 #### [facility] CLIA [id number] [address] [place] [address] [place] pH (U) 7.0 [pH] Normal <8.5 [facility] Comment on above: Order Comment: Speci men Type: URINE SPECIMEN [facility] Address: [address] [place] [address] [place] [address] Performed By: #### 2 890-2 #### [facility] CLIA [id number] [address] [place] [address] [place] Protein (U) [Mass/Vol] Negative Normal Negative [facility] Comment on above: Order Comment: Speci men Type: URINE SPECIMEN [facility] Address: [address] [place] [address] CARLY MILLER, [place] [address] Performed By: #### 2 890-2 #### [facility] CLIA [id number] [address] [place] [address] [place] RBC LM.HPF (Urine sed) [#/Area] 0-2 /HPF Normal 0-2 /HPF [facility] Comment on above: Order Comment: Speci men Type: URINE SPECIMEN [facility] Address: [address] [place] [address] [place] [address] Performed By: #### 2 890-2 #### [facility] CLIA [id number] [address] [place] [address] [place] Specific gravity (U) [Rel density] 1.012 Normal 1.005-1.03 0 [facility] Comment on above: Order Comment: Speci men Type: URINE SPECIMEN [facility] Address: [address] [place] [address] [place] [address] Performed By: #### 2 890-2 #### [facility] CLIA [id number] [address] [place] [address] [place] Urobilinogen Ql (U) 0.2 EU/dL Normal 0.2-1.0 EU/dL [facility] Comment on above: Order Comment: Speci men Type: URINE SPECIMEN Ordering Facility: [facility] Address: [address] [place], [place] [address] [address] Performed By: #### 2 890-2 #### [facility] CLIA [id number] [address] [place] [address] [place] WBC LM.HPF (Urine sed) [#/Area] /[HPF] Abnormal 0-5 /HPF [facility] Comment on above: Order Comment: Speci men Type: URINE SPECIMEN Ordering Facility: [facility] Address: [address] [place], [place] [address]MARIA GUADALUPE MILLER, [place] [address] Performed By: #### 2 890-2 #### [facility] CLIA [id number] [address] [place], [place] [id number] [place] Calprotectin, Stoolon [address] 102 ug/g Normal 0-120 [facility] Comment on above: Result Comment: Conc entration Interpretation Follow-Up< 5 - 50 ug/g Normal None>50 -120 ug/g Borderline Re-evaluate in 4-6 weeks >120 ug/g Abnormal Repeat as clinically indicatedPerformed at: - [facility] [address] [id number] Director: Brigido Mtz MD, Phone: [phone] Performed By: #### M 100.637, L7000.0750, M600.5000, M7400.3302, M100.0605, L7000.0700 ####[facility] [id number] [place], [address] L7000.0750on 02-15-2025 P ELASTASE,FECA 669 Normal >200 [facility] Comment on above: Result Comment: Resu lt Units: ug Elast./g Severe Pancreatic Insufficiency: <100 Moderate Pancreatic Insufficiency: 100 - 200 Normal: >200Performed at: [address] [id number] Director: Brigido Mtz MD, Phone: [phone] Performed By: #### M 100.637, L7000.0750, M600.5000, M7400.3302, M100.0605, L7000.0700 ####[facility] [address] [place], [address] [id number] 06-20-2024 [id number] Normal [facility] Comment on above: Performed By: #### M 100.637, L7000.0750, M600.5000, M7400.3302, M100.0605, L7000.0700 ####[facility] [address] [place], [address] [employer] 8623on OP Normal [facility] Comment on above: Performed By: #### M 100.637, L7000.0750, M600.5000, M7400.3302, M100.0605, L7000.0700 ####[facility] [address] [place], [address] [id number] DOrdered By: Magda Pierce on 06-18-2024 Vitamin D 25-Hydroxy 29.9 ng/mL [facility] Comment on above: Vitamin D 25(OH) Sta tus Range Deficiency <20 ng/mL (50nmol/L) Insufficiency 20 - 30 ng/mL (50 - 75 nmol/L) Sufficiency 30 - 100 ng/mL (75 - 250 nmol/L) Toxicity >100 ng/mL (>250 nmol/L) Absolute lymphocyte countOrd ered By: Kaya Pierce on 06-18-2024 Lymphocytes Auto (Unsp spec) [#/Vol] 0.82 10*3/uL Low 0.83-4.51 [facility] Absolute neutrophil countOrd ered By: Kaya Pierce on 06-18-2024 Neutrophils (Bld) [#/Vol] 1.8 10*3/uL Low 2.0-7.7 [facility] Albumin to globulin ratioOrd ered By: Kaya Pierce on 06-18-2024 Albumin/Globulin [Mass ratio] 1.0 {ratio} 0.9-2.4 [facility] Automated lymphocyte count a s percentage of total leukocytesOrdered By: Kaya Pierce on 06-18-2024 Lymphocytes/100 WBC Auto (Unsp spec) 26.1 % 19-41 [facility] Basophil percentageOrdered B y: Kaya Pierce on 06-18-2024 Basophils/100 WBC (Bld) 0.6 % 0-1 [facility] Bilirubin directOrdered By: Maryjane King on 06-18-2024 Bilirubin.direct [Mass/Vol] 0.15 mg/dL 0.00-0.30 [facility] Bilirubin, totalOrdered By: Maryjane King on 06-18-2024 Bilirubin [Mass/Vol] 0.30 mg/dL 0.20-1.00 [facility] Comment on above: For patients on eltr ombopag therapy, use of Dimension Had[place] TBIL is not recommended. Blood urea nitrogen (BUN)/cr eatinine ratioOrdered By: Kaya Pierce on 06-18-2024 Urea nitrogen/Creatinine [Mass ratio] 12.6 mg/mg 10-20 [facility] CBC W/Diff, Automatedon 06-07 Absolute Lymph 0.82 X10 3/uL Low 0.83-4.51 [facility] Comment on above: Performed By: #### L 506.1000, L100.0100, L500.4050, L503.6150 ####[facility] [address] [place], [address] Absolute Neut 1.8 X10 3/uL Low 2.0-7.7 [facility] Comment on above: Performed By: #### L 506.1000, L100.0100, L500.4050, L503.6150 ####[facility] [address] [place], [address] Basophils/100 WBC (Bld) 0.6 % Normal 0-1 [facility] Comment on above: Performed By: #### L 506.1000, L100.0100, L500.4050, L503.6150 ####[facility] [address] [place], [address] Eosinophils/100 WBC (Bld) 5.4 % High 0-5 [facility] Comment on above: Performed By: #### L 506.1000, L100.0100, L500.4050, L503.6150 ####[facility] [address] [place], [address] Erythrocyte distribution width (RBC) [Ratio] 15.2 % High 11.6-14.6 [facility] Comment on above: Performed By: #### L 506.1000, L100.0100, L500.4050, L503.6150 ####[facility] [address] [place], [address] Hematocrit (Bld) [Volume fraction] 33.2 % Low 37-47 [facility] Comment on above: Performed By: #### L 506.1000, L100.0100, L500.4050, L503.6150 ####[facility] [address] [place], [address] Hemoglobin (Bld) [Mass/Vol] 10.2 g/dL Low 12.0-15.0 [facility] Comment on above: Performed By: #### L 506.1000, L100.0100, L500.4050, L503.6150 ####[facility] [address] [place], [address] IG% 0.300 Normal 0.0-0.9 [facility] Comment on above: Result Comment: IG% - Immature Granulocytes (promyelocytes, myelocytes andmetamyelocytes) > 1% indicates that a LEFT SHIFT is Present. Performed By: #### L 506.1000, L100.0100, L500.4050, L503.6150 ####[facility] [address] [place], [address] Lymphocytes/100 WBC (Bld) 26.1 % Normal 19-41 [facility] Comment on above: Performed By: #### L 506.1000, L100.0100, L500.4050, L503.6150 ####[facility] [address] [place], [address] MCH (RBC) [Entitic mass] 27.0 pg Normal 27.0-32.0 [facility] Comment on above: Performed By: #### L 506.1000, L100.0100, L500.4050, L503.6150 ####[facility] [address] [place], [address] MCHC (RBC) [Mass/Vol] 30.7 g/dL Low 32-36 [facility] Comment on above: Performed By: #### L 506.1000, L100.0100, L500.4050, L503.6150 ####[facility] [address] [place], [address] MCV (RBC) [Entitic vol] 87.8 fL Normal 81-99 [facility] Comment on above: Performed By: #### L 506.1000, L100.0100, L500.4050, L503.6150 ####[facility] [address] [place], [address] Monocytes/100 WBC (Bld) 11.5 % High 0-10 [facility] Comment on above: Performed By: #### L 506.1000, L100.0100, L500.4050, L503.6150 ####[facility] [address] [place], [address] Neutrophils/100 WBC (Bld) 56.1 % Normal 47-70 [facility] Comment on above: Performed By: #### L 506.1000, L100.0100, L500.4050, L503.6150 ####[facility] [address] [place], [address] Nucleated RBC (Bld) [#/Vol] 0 10*3/uL Normal 0-5 [facility] Comment on above: Performed By: #### L 506.1000, L100.0100, L500.4050, L503.6150 ####[facility] [address] [place], [address] Platelet mean volume (Bld) [Entitic vol] 11.0 fL Normal 6.2-12.0 [facility] Comment on above: Performed By: #### L 506.1000, L100.0100, L500.4050, L503.6150 ####[facility] [address] [place], [address] Platelets (Bld) [#/Vol] 174 10*3/uL Normal 150-450 [facility] Comment on above: Performed By: #### L 506.1000, L100.0100, L500.4050, L503.6150 ####[facility] [address] [place], [address] RBC (Bld) [#/Vol] 3.78 10*6/uL Low 4.2-5.4 [facility] Comment on above: Performed By: #### L 506.1000, L100.0100, L500.4050, L503.6150 ####[facility] [address] [place], [address] RDW SD 48.4 fl High 35.1-43.9 [facility] Comment on above: Performed By: #### L 506.1000, L100.0100, L500.4050, L503.6150 ####[facility] [address] [place], [address] WBC (Bld) [#/Vol] 3.1 10*3/uL Low 4.4-11.0 [facility] Comment on above: Performed By: #### L 506.1000, L100.0100, L500.4050, L503.6150 ####[facility] [address] [place], [address] Carbon dioxide measurementOr dered By: Kaya Pierce on 06-18-2024 CO2 [Moles/Vol] 26.0 mmol/L 21.0-32.0 [facility] Chloride measurementOrdered By: Kaya Pierce on 06-18-2024 Chloride [Moles/Vol] 101 mmol/L 98-107 [facility] Comprehensive Metabolic Prof ilon 06-18-2024 Albumin [Mass/Vol] 3.7 g/dL Normal 3.2-5.0 [facility] Comment on above: Performed By: #### L 506.1000, L100.0100, L500.4050, L503.6150 ####[facility] [address] [place], [address] Albumin/Globulin [Mass ratio] 1.0 {ratio} Normal 0.9-2.4 [facility] Comment on above: Performed By: #### L 506.1000, L100.0100, L500.4050, L503.6150 ####[facility] [address] [place], [address] ALK P 113 U/L Normal 45-117 [facility] Comment on above: Performed By: #### L 506.1000, L100.0100, L500.4050, L503.6150 ####[facility] [address] [place], [address] ALT [Catalytic activity/Vol] 47 U/L Normal 13-56 [facility] Comment on above: Performed By: #### L 506.1000, L100.0100, L500.4050, L503.6150 ####[facility] [address] [place], [address] AST [Catalytic activity/Vol] 40 U/L High 15-37 [facility] Comment on above: Performed By: #### L 506.1000, L100.0100, L500.4050, L503.6150 ####[facility] [address] [place], [address] Bilirubin [Mass/Vol] 0.30 mg/dL Normal 0.20-1.00 [facility] Comment on above: Result Comment: For patients on eltrombopag therapy, use of Dimension [place] TBIL is not recommended. Performed By: #### L 506.1000, L100.0100, L500.4050, L503.6150 ####[facility] [address] [place], [address] BUN/CRE 12.6 RATIO Normal 10-20 [facility] Comment on above: Performed By: #### L 506.1000, L100.0100, L500.4050, L503.6150 ####[facility] [address] [place], [address] CA,Total 8.7 mg/dL Normal 8.5-10.1 [facility] Comment on above: Performed By: #### L 506.1000, L100.0100, L500.4050, L503.6150 ####[facility] [address] [place], [address] Chloride [Moles/Vol] 101 mmol/L Normal 98-107 [facility] Comment on above: Performed By: #### L 506.1000, L100.0100, L500.4050, L503.6150 ####[facility] [address] [place], [address] CO2 [Moles/Vol] 26.0 mmol/L Normal 21.0-32.0 [facility] Comment on above: Performed By: #### L 506.1000, L100.0100, L500.4050, L503.6150 ####[facility] [address] [place], [address] Creatinine [Mass/Vol] 0.64 mg/dL Normal 0.55-1.02 [facility] Comment on above: Result Comment: The validity of the calculated GFR GFRAA in patients over70 years has not been determined. Clinical correlation isessential. Performed By: #### L 506.1000, L100.0100, L500.4050, L503.6150 ####[facility] [address] [place], [address] EST GFR - AA 123 mL/min Normal >60 [facility] Comment on above: Result Comment: Afri can [place] GFR Calc Performed By: #### L 506.1000, L100.0100, L500.4050, L503.6150 ####[facility] [address] [place], [address] GAP 6 Normal 5-15 [facility] Comment on above: Performed By: #### L 506.1000, L100.0100, L500.4050, L503.6150 ####[facility] [address] [place], [address] GFR/1.73 sq M.predicted among non-blacks MDRD (S/P/Bld) [Vol rate/Area] 102 mL/min/{1.73_m2} Normal >60 [facility] Comment on above: Result Comment: Non- GFR Calc Performed By: #### L 506.1000, L100.0100, L500.4050, L503.6150 ####[facility] [address] [place], [address] Globulin (S) [Mass/Vol] 3.7 g/dL Normal 2.2-4.2 [facility] Comment on above: Performed By: #### L 506.1000, L100.0100, L500.4050, L503.6150 ####[facility] [address] [place], [address] Glucose [Mass/Vol] 114 mg/dL High 74-106 [facility] Comment on above: Result Comment: Fast ing Glucose result from 100 to 125 mg/dLsuggests IMPAIRED HOMEOSTASIS per A.D.A. criteria. Performed By: #### L 506.1000, L100.0100, L500.4050, L503.6150 ####[facility] [address] [place], [address] Potassium [Moles/Vol] 4.5 mmol/L Normal 3.5-5.1 [facility] Comment on above: Performed By: #### L 506.1000, L100.0100, L500.4050, L503.6150 ####[facility] [address] [place], [address] Sodium [Moles/Vol] 132 mmol/L Low 136-145 [facility] Comment on above: Performed By: #### L 506.1000, L100.0100, L500.4050, L503.6150 ####[facility] [address] [place], [address] T PROT 7.4 g/dL Normal 6.4-8.2 [facility] Comment on above: Performed By: #### L 506.1000, L100.0100, L500.4050, L503.6150 ####[facility] [address] [place], [address] Urea nitrogen [Mass/Vol] 8 mg/dL Normal 7-18 [facility] Comment on above: Performed By: #### L 506.1000, L100.0100, L500.4050, L503.6150 ####[facility] [address] [place], [address] Eosinophil percentageOrdered By: Kaya Pierce on 06-18-2024 Eosinophils/100 WBC (Bld) 5.4 % High 0-5 [facility] Erythrocyte distribution wid th ratioOrdered By: Kaya Pierce on 06-18-2024 Erythrocyte distribution width (RBC) [Ratio] 15.2 % High 11.6-14.6 [facility] Erythrocyte distribution wid th standard deviationOrdered By: Kaya Pierce on 06-18-2024 Erythrocyte distribution width (RBC) [Entitic vol] 48.4 fL High 35.1-43.9 [facility] Erythrocyte distribution width (RBC) [Ratio] 48.4 fl High 35.1-43.9 [facility] Estimated glomerular filtrat ion rate (GFR) AmericanOrdered By: Kaya Pierce on 06-18-2024 Estimated GFR (MDRD) Amer 123 mL/min >60 [facility] Comment on above: GFR Calc Gastroenterology Visit Repor ton 06-18-2024 Gastroenterology Visit Report Normal [facility] Glomerular filtration rate ( GFR) estimationOrdered By: Kaya Pierce on 06-18-2024 Estimated GFR (MDRD) Non-Af Amer 102 mL/min >60 [facility] Comment on above: Non- GFR Calc GFR/1.73 sq M.predicted among non-blacks MDRD (S/P/Bld) [Vol rate/Area] 102 mL/min/{1.73_m2} >60 [facility] Comment on above: Non- GFR Calc Glucose measurementOrdered B y: Kaya Pierce on 06-18-2024 Glucose [Mass/Vol] 114 mg/dL High 74-106 [facility] Comment on above: Fasting Glucose resu lt from 100 to 125 mg/dL suggests IMPAIRED HOMEOSTASIS per A.D.A. criteria. Hematocrit Auto (Bld) [Volum e fraction]Ordered By: Kaya Pierce on 06-18-2024 Hematocrit (Bld) [Volume fraction] 33.2 % Low 37-47 [facility] Hemoglobin measurementOrdere d By: Kaya Pierce on 06-18-2024 Hemoglobin (Bld) [Mass/Vol] 10.2 g/dL Low 12.0-15.0 [facility] High density lipoprotein (HD L) measurementOrdered By: Maryjane King on 06-18-2024 Cholesterol in HDL [Mass/Vol] 58 mg/dL >40 [facility] Comment on above: The drugs N-Acetylcy steine and Metamizole may falsely depress this assay. Reference Range HDL <40 mg/dL Low HDL Cholesterol HDL >or= 60 mg/dL High HDL Cholesterol Immature granulocytes/100 WB C Auto (Bld)Ordered By: Kaya Pierce on 06-18-2024 Immature granulocytes/100 WBC (Bld) 0.300 % 0.0-0.9 [facility] Comment on above: IG% - Immature Granu locytes (promyelocytes, myelocytes and metamyelocytes) > 1% indicates that a LEFT SHIFT is Present. Ironon 06-18-2024 Iron [Mass/Vol] 19 ug/dL Low 50-170 [facility] Comment on above: Performed By: #### L 506.1000, L100.0100, L500.4050, L503.6150 ####[facility] [address] [place], [place], [address] Iron (Unsp spec) [Mass/Mass] Ordered By: Kaya Pierce on 06-18-2024 Iron [Mass/Vol] 19 ug/dL Low 50-170 [facility] Iron measurement (mass/mass) Ordered By: Kaya Pierce on 06-18-2024 Iron (Unsp spec) [Mass/Mass] 19 ug/dL Low 50-170 [facility] Laboratory - Chemistry and C hemistry - challengeOrdered By: Maryjane King on 06-18-2024 AST [Catalytic activity/Vol] 40 U/L High 15-37 [facility] Lipid Profileon 06-18-2024 Cholesterol [Mass/Vol] 130 mg/dL Normal 200 [facility] Comment on above: Result Comment: <200 mg/dL Desirable 200-240 mg/dL Borderline >240 mg/dL High Risk Performed By: #### L 500.3400, L500.4100 ####[facility] [address] [place], [address] Cholesterol in HDL [Mass/Vol] 58 mg/dL Normal [facility] Comment on above: Result Comment: The drugs N-Acetylcysteine and Metamizole may falselydepress this assay. Reference Range HDL <40 mg/dL Low HDL Cholesterol HDL >or= 60 mg/dL High HDL Cholesterol Performed By: #### L 500.3400, L500.4100 ####[facility] [address] [place], [address] Cholesterol in LDL [Mass/Vol] 61 mg/dL Normal 0-130 [facility] Comment on above: Performed By: #### L 500.3400, L500.4100 ####[facility] [address] [place], [address] Cholesterol in VLDL [Mass/Vol] 11 mg/dL Normal 5-40 [facility] Comment on above: Performed By: #### L 500.3400, L500.4100 ####[facility] [address] [place], [address] Triglyceride [Mass/Vol] 54 mg/dL Normal [facility] Comment on above: Result Comment: The drugs N-Acetylcysteine and Metamizole may falselydepress this assay.Serum Triglycerides Reference Interval Normal <150 mg/dL Borderline high 150 - 199 mg/dL High 200 - 499 mg/dL Very High > or = 500 mg/dL Performed By: #### L 500.3400, L500.4100 ####[facility] [address] [place], [address] Liver Profileon 06-18-2024 Albumin [Mass/Vol] 3.7 g/dL Normal 3.2-5.0 [facility] Comment on above: Performed By: #### L 500.3400, L500.4100 ####[facility] [address] [place], [address] ALK P 115 U/L Normal 45-117 [facility] Comment on above: Performed By: #### L 500.3400, L500.4100 ####[facility] [address] [place], [address] ALT [Catalytic activity/Vol] 48 U/L Normal 13-56 [facility] Comment on above: Performed By: #### L 500.3400, L500.4100 ####[facility] [address] [place], [address] AST [Catalytic activity/Vol] 40 U/L High 15-37 [facility] Comment on above: Performed By: #### L 500.3400, L500.4100 ####[facility] [address] [place], [address] Bilirubin [Mass/Vol] 0.30 mg/dL Normal 0.20-1.00 [facility] Comment on above: Result Comment: For patients on eltrombopag therapy, use of Dimension [place] TBIL is not recommended. Performed By: #### L 500.3400, L500.4100 ####[facility] [address] [place], [address] Bilirubin.direct [Mass/Vol] 0.15 mg/dL Normal 0.00-0.30 [facility] Comment on above: Performed By: #### L 500.3400, L500.4100 ####[facility] [address] [place], [address] Globulin (S) [Mass/Vol] 3.6 g/dL Normal 2.2-4.2 [facility] Comment on above: Performed By: #### L 500.3400, L500.4100 ####[facility] [address] [place], [address] T PROT 7.3 g/dL Normal 6.4-8.2 [facility] Comment on above: Performed By: #### L 500.3400, L500.4100 ####[facility] [address] [place], [address] Low density lipoprotein (LDL ) cholesterol measurementOrdered By: Maryjane King on 06-18-2024 Cholesterol in LDL [Mass/Vol] 61 mg/dL 0-130 [facility] Lymphocytes Auto (Unsp spec) [#/Vol]Ordered By: Kaya Pierce on 06-18-2024 Lymphocytes (Bld) [#/Vol] 0.82 10*3/uL Low 0.83-4.51 [facility] Lymphocytes/100 WBC Auto (Un sp spec)Ordered By: Kaya Pierce on 06-18-2024 Lymphocytes/100 WBC (Bld) 26.1 % 19-41 [facility] MCV (mean corpuscular volume ) determinationOrdered By: Kaya Pierce on 06-18-2024 MCV (RBC) [Entitic vol] 87.8 fL 81-99 [facility] Mean corpuscular hemoglobin (MCH) determinationOrdered By: Kaya Pierce on 06-18-2024 MCH (RBC) [Entitic mass] 27.0 pg 27.0-32.0 [facility] Mean corpuscular hemoglobin concentration (MCHC) determinationOrdered By: Kaya Pierce on 06-18-2024 MCHC (RBC) [Mass/Vol] 30.7 g/dL Low 32-36 [facility] Mean platelet volume determi nationOrdered By: Kaya Pierce on 06-18-2024 Platelet mean volume (Bld) [Entitic vol] 11.0 fL 6.2-12.0 [facility] Monocyte percentageOrdered B y: Kaya Pierce on 06-18-2024 Monocytes/100 WBC (Bld) 11.5 % High 0-10 [facility] Neutrophil percentageOrdered By: Kaya Pierce on 06-18-2024 Neutrophils/100 WBC (Bld) 56.1 % 47-70 [facility] Nucleated red blood cell per centageOrdered By: Kaya Pierce on 06-18-2024 Nucleated RBC/100 WBC (Bld) [Ratio] 0 % 0-5 [facility] Platelet countOrdered By: Arcadio Pierce on 06-18-2024 Platelets (Bld) [#/Vol] 174 10*3/uL 150-450 [facility] Potassium measurementOrdered By: Kaya Pierce on 06-18-2024 Potassium [Moles/Vol] 4.5 mmol/L 3.5-5.1 [facility] RBC Auto (Bld) [#/Vol]Ordere d By: Kaya Pierce on 06-18-2024 RBC (Bld) [#/Vol] 3.78 10*6/uL Low 4.2-5.4 [facility] Serum anion gap measurementO rdered By: Kaya Pierce on 06-18-2024 Anion gap [Moles/Vol] 6 mmol/L 5-15 [facility] Serum globulin measurementOr dered By: Maryjane King on 06-18-2024 Globulin (S) [Mass/Vol] 3.6 g/dL 2.2-4.2 [facility] Serum or plasma alanine amaro otransferase (ALT) measurementOrdered By: Maryjane King on 06-18-2024 ALT [Catalytic activity/Vol] 48 U/L 13-56 [facility] Serum or plasma albumin hailee urement (mass/volume)Ordered By: Maryjane King on 06-18-2024 Albumin [Mass/Vol] 3.7 g/dL 3.2-5.0 [facility] Serum or plasma alkaline caren sphatase measurementOrdered By: Maryjane King on 06-18-2024 ALP [Catalytic activity/Vol] 115 U/L 45-117 [facility] Serum or plasma calcium hailee urement (mass/volume)Ordered By: Kaya Pierce on 06-18-2024 Calcium [Mass/Vol] 8.7 mg/dL 8.5-10.1 [facility] Serum or plasma cholesterol measurement (mass/volume)Ordered By: Maryjane King on 06-18-2024 Cholesterol [Mass/Vol] 130 mg/dL <200 [facility] Comment on above: <200 mg/dL Desirable 200-240 mg/dL Borderline >240 mg/dL High Risk Serum or plasma creatinine m easurement (mass/volume)Ordered By: Kaya Pierce on 06-18-2024 Creatinine [Mass/Vol] 0.64 mg/dL 0.55-1.02 [facility] Comment on above: The validity of the calculated GFR & GFRAA in patients over 70 years has not been determined. Clinical correlation is essential. Serum or plasma urea nitroge n measurement (mass/volume)Ordered By: Kaya Pierce on 06-18-2024 Urea nitrogen [Mass/Vol] 8 mg/dL 7-18 [facility] Sodium levelOrdered By: Mami Pierce on 06-18-2024 Sodium [Moles/Vol] 132 mmol/L Low 136-145 [facility] Total proteinOrdered By: Hector King on 06-18-2024 Protein [Mass/Vol] 7.3 g/dL 6.4-8.2 [facility] Triglycerides measurementOrd ered By: Maryjane King on 06-18-2024 Triglyceride [Mass/Vol] 54 mg/dL <199 [facility] Comment on above: The drugs N-Acetylcy steine and Metamizole may falsely depress this assay.Serum Triglycerides Reference Interval Normal <150 mg/dL Borderline high 150 - 199 mg/dL High 200 - 499 mg/dL Very High > or = 500 mg/dL Very low density lipoprotein (VLDL) cholesterol measurementOrdered By: Maryjane King on 06-18-2024 Very low density lipoprotein (VLDL) cholesterol measurement 11 mg/dL 5-40 [facility] VLDL Cholesterol 11 mg/dL 5-40 [facility] Vitamin D,25 Hydroxyon 06-18 Vitamin D 25-OH 29.9 ng/mL Normal [facility] Comment on above: Result Comment: Winifred min D 25(OH) Status Range Deficiency <20 ng/mL (50nmol/L) Insufficiency 20 - 30 ng/mL (50 - 75 nmol/L) Sufficiency 30 - 100 ng/mL (75 - 250 nmol/L) Toxicity >100 ng/mL (>250 nmol/L) Performed By: #### L 506.1000, L100.0100, L500.4050, L503.6150 ####[facility] [address] [place], [address] White blood cell (WBC) count Ordered By: Kaya Pierce on 06-18-2024 WBC (Bld) [#/Vol] 3.1 10*3/uL Low 4.4-11.0 [facility] Calprotectin stoolOrdered By : Kaya Pierce on 06-17-2024 Calprotectin stool 102 ug/g 0-120 [facility] Comment on above: Concentration Interp retation Follow-Up< 5 - 50 ug/g Normal None>50 -120 ug/g Borderline Re-evaluate in 4-6 weeks >120 ug/g Abnormal Repeat as clinically indicatedPerformed at: [address] [id number] Director: Brigido Mtz MD, Phone: [phone] Stool Calprotectin 102 ug/g 0-120 [facility] Comment on above: Concentration Interp retation Follow-Up< 5 - 50 ug/g Normal None>50 -120 ug/g Borderline Re-evaluate in 4-6 weeks >120 ug/g Abnormal Repeat as clinically indicatedPerformed at: [facility] [id number] Director: Brigido Mtz MD, Phone: [phone] ENTERIC PATHOGEN PANEL STOOL on 06-17-2024 EP PANEL CAMPYLOBACTER Not Detected Norovirus Not Detected Rotavirus Not Detected Salmonella Not Detected Shiga Toxin Not Detected Shigella sp. Not Detected VIBRIO Not Detected Yersinia Not Detected Normal [facility] Comment on above: Performed By: #### M 100.637, L7000.0750, M600.5000, M7400.3302, M100.0605, L7000.0700 ####[facility] [id number] [place], [address] Elastase.pancreatic (Stl) [M ass/Mass]Ordered By: Kaya Pierce on 06-17-2024 Stool Pancreatic Elastase 669 >200 [facility] Comment on above: Result Units: ug Carmen st./g Severe Pancreatic Insufficiency: <100 Moderate Pancreatic Insufficiency: 100 - 200 Normal: >200Performed at: BN - [facility] [address] [id number] Director: Brigido Mtz MD, Phone: [phone] Giardia lamblia antigen assa y by enzyme immunoassayOrdered By: Kaya Pierce on 06-17-2024 Giardia Antigen (ALIX) [facility] Lactoferrin IA Ql (Stl)Order ed By: Kaya Pierce on 06-17-2024 Stool Lactoferrin [facility] Ova and parasitesOrdered By: Kaya Pierce on 06-17-2024 Ova and Parasites [facility] Stool Lactoferrin/WBCon 06-07 WBCST Normal Reference Ran ge = Negative Fecal WBC Lactoferrin Negative: No Fecal WBC Lactoferrin present Normal [facility] Comment on above: Performed By: #### M 100.637, L7000.0750, M600.5000, M7400.3302, M100.0605, L7000.0700 ####[facility] [id number] [place], [place], [id number] Stool enteric pathogen panel by probe and target amplification methodOrdered By: Kaya Pierce on 06-17-2024 Enteric Bacteriology [facility] Stool lactoferrin detection by immunoassayOrdered By: Kaya Pierce on 06-17-2024 Lactoferrin IA Ql (Stl) [facility] Stool pancreatic elastase me asurement (mass/mass)Ordered By: Kaya Pierce on 06-17-2024 Elastase.pancreatic (Stl) [Mass/Mass] 669 >200 [facility] Comment on above: Result Units: ug Carmen st./g Severe Pancreatic Insufficiency: <100 Moderate Pancreatic Insufficiency: 100 - 200 Normal: >200Performed at: BN - [facility] [address] [id number] Director: Brigido Mtz MD, Phone: [phone] Basic metabolic 2000 panelon 05-28-2024 Anion gap [Moles/Vol] 11 mmol/L Normal 8-15 [facility] Comment on above: Order Comment: Speci men Type: BLOOD SPECIMENOrdering Facility: [facility] Address: [address] [place] [address] Performed By: #### 2 4321-2 ####[facility] LABCLIA [id number] [place] [address] [place] Calcium [Mass/Vol] 9.1 mg/dL Normal 8.5-10.2 [facility] Comment on above: Order Comment: Speci men Type: BLOOD SPECIMENOrdering Facility: [facility] Address: [address] [place] [address] Performed By: #### 2 4321-2 ####[facility] LABCLIA [id number] [place] [address] [place] Chloride [Moles/Vol] 99 mmol/L Normal 98-[address] [facility] Comment on above: Order Comment: Speci men Type: BLOOD SPECIMENOrdering Facility: [facility] Address: [address] [place] [address] Performed By: #### 2 4321-2 ####[facility] LABCLIA [id number] [place] [address] [place] CO2 [Moles/Vol] 23 mmol/L Normal 22-30 [facility] Comment on above: Order Comment: Speci men Type: BLOOD SPECIMENOrdering Facility: [facility] Address: [address] [place] [address] Performed By: #### 2 4321-2 ####[facility] LABCLIA [id number] [place] [address] [place] Creatinine [Mass/Vol] 0.61 mg/dL Normal 0.58-0.96 [facility] Comment on above: Order Comment: Speci men Type: BLOOD SPECIMENOrdering Facility: [facility] Address: [address] [place] [address] Performed By: #### 2 4321-2 ####[facility] LABCLIA [id number] [place] [address] [place] Creatinine and Glomerular filtration rate.predicted panel (S/P/Bld) 104 mL/min/1.73m??? Normal >=60 [facility] Comment on above: Order Comment: Bradley castellanos Type: BLOOD SPECIMENOrdering Facility: [facility] Address: [address] [place] [address] Result Comment: Arianna mated Glomerular Filtration Rate (eGFR) is calculated using the 2020 CKD-EPI creatinine equation. This equation utilizes serum creatinine, sex, and age as parameters. The creatinine assay has traceable calibration to isotope dilution-mass spectrometry. Refer to KDIGO guidelines for clinical interpretation. In patients with unstable renal function, e.g. those with acute kidney injury, the eGFR may not accurately reflect actual GFR. Performed By: #### 2 4321-2 ####[facility] LABIA [id number] [place] [address] [place] Glucose [Mass/Vol] 95 mg/dL Normal 74-99 [facility] Comment on above: Order Comment: Bradley castellanos Type: BLOOD SPECIMENOrdering Facility: [facility] Address: [address] [place] [address] Result Comment: The [place] [employer] (ADA) provides guidance for cutoff values for fasting glucose and random glucose. The ADA defines fasting as no caloric intake for at least 8 hours. Fasting plasma glucose results between 100 to 125 mg/dL indicate increased risk for diabetes (prediabetes). Fasting plasma glucose results greater than or equal to 126 mg/dL meet the criteria for diagnosis of diabetes. In the absence of unequivocal hyperglycemia, results should be confirmed by repeat testing. In a patient with classic symptoms of hyperglycemia or hyperglycemic crisis, random plasma glucose results greater than or equal to 200 mg/dL meet the criteria for diagnosis of diabetes. Reference: Standards of Medical Care in Diabetes 2016, [place] [employer]. Diabetes Care. 2016.39(Suppl 1). Performed By: #### 2 4321-2 ####[facility] LABIA [id number] [place] [address] [place] Potassium [Moles/Vol] 4.8 mmol/L Normal 3.7-5.1 [facility] Comment on above: Order Comment: Speci men Type: BLOOD SPECIMENOrdering Facility: [facility] Address: [address] [place] [address] Performed By: #### 2 4321-2 ####[facility] LABCLIA [id number] [place] [address] [place] Sodium [Moles/Vol] 133 mmol/L Low 136-144 [facility] Comment on above: Order Comment: Speci men Type: BLOOD SPECIMENOrdering Facility: [facility] Address: [address] [place] [address] Performed By: #### 2 4321-2 ####[facility] LABCLIA [id number] [place] [address] [place] Urea nitrogen [Mass/Vol] 9 mg/dL Normal 7-21 [facility] Comment on above: Order Comment: Speci men Type: BLOOD SPECIMENOrdering Facility: [facility] Address: [address] [place] [address] Performed By: #### 2 4321-2 ####[facility] LABCLIA [id number] [place] [address] [place] CBC W Auto Differential pane l (Bld)on 05-28-2024 [facility]ophils (Bld) [facility]Vol[facility] Basophils/100 WBC (Bld) 0.5 % [facility] Differential cell count method Nom (Bld) Auto [facility] Eosinophils (Bld) [#/Vol] 0.06 10*3/uL [facility] Eosinophils/100 WBC (Bld) 1.5 % [facility] Erythrocyte distribution width (RBC) [Ratio] 15.3 % High 11.5 - 15.0 % [facility] Hematocrit (Bld) [Volume fraction] 29.5 % Low 36.0 - 46.0 % [facility] Hemoglobin (Bld) [Mass/Vol] 8.9 g/dL Low 11.5 - 15.5 g/dL [facility] Immature granulocytes (Bld) [#/Vol] [facility] Immature granulocytes/100 WBC (Bld) 0.2 % [facility] Interpretation and review of laboratory results Abnormal [facility] Lymphocytes (Bld) [#/Vol] 1.19 10*3/uL [facility] Lymphocytes/100 WBC (Bld) 29.7 % [facility] MCH (RBC) [Entitic mass] 28.0 pg 26.0 - 34.0 pg [facility] MCHC (RBC) [Mass/Vol] 30.2 g/dL Low 30.5 - 36.0 g/dL [facility] MCV (RBC) [Entitic vol] 92.8 fL 80.0 - 100.0 fL [facility] Monocytes (Bld) [#/Vol] 0.56 10*3/uL NINF [facility] Monocytes/100 WBC (Bld) 14.0 % [facility] Neutrophils (Bld) [#/Vol] 2.17 10*3/uL [facility] Neutrophils/100 WBC (Bld) 54.1 % [facility] Nucleated RBC (Bld) [#/Vol] NINF [facility] Nucleated RBC/100 WBC (Bld) [Ratio] 0.0 % /100 WBC [facility] Platelet mean volume (Bld) [Entitic vol] 11.7 fL 9.0 - 12.7 fL [facility] Platelets (Bld) [#/Vol] 210 10*3/uL [facility] RBC (Bld) [#/Vol] 3.18 10*6/uL Low 3.90 - 5.20 m/uL [facility] WBC (Bld) [#/Vol] 4.01 10*3/uL [facility] Basophils (Bld) [#/Vol] 10*3/uL Normal <0.11 [facility] Comment on above: Order Comment: Speci men Type: BLOOD SPECIMENOrdering Facility: [facility] Address: [address] [place] [address] Performed By: #### 5 7021-8 ####[facility] LABCLIA [id number] [place] [address] [place] Basophils/100 WBC (Bld) 0.5 % Normal [facility] Comment on above: Order Comment: Speci men Type: BLOOD SPECIMENOrdering Facility: [facility] Address: [address] [place] [address] Performed By: #### 5 7021-8 ####[facility] LABCLIA [id number] [place] [address] [place] Differential cell count method Nom (Bld) Auto Normal [facility] Comment on above: Order Comment: Speci men Type: BLOOD SPECIMENOrdering Facility: [facility] Address: [address] [place] [address] Performed By: #### 5 7021-8 ####[facility] LABCLIA [id number] [place] [address] [place] Eosinophils (Bld) [#/Vol] 0.06 10*3/uL Normal <0.46 [facility] Comment on above: Order Comment: Speci men Type: BLOOD SPECIMENOrdering Facility: [facility] Address: [address] [place] [address] Performed By: #### 5 7021-8 ####[facility] LABCLIA [id number] [place] [address] [place] Eosinophils/100 WBC (Bld) 1.5 % Normal [facility] Comment on above: Order Comment: Speci men Type: BLOOD SPECIMENOrdering Facility: [facility] Address: [address] [place] [address] Performed By: #### 5 7021-8 ####[facility] LABCLIA [id number] [place] [address] [place] Erythrocyte distribution width (RBC) [Ratio] 15.3 % High 11.5-15.0 [facility] Comment on above: Order Comment: Speci men Type: BLOOD SPECIMENOrdering Facility: [facility] Address: [address] [place] [address] Performed By: #### 5 7021-8 ####[facility] LABCLIA [id number] [place] [address] [place] Hematocrit (Bld) [Volume fraction] 29.5 % Low 36.0-46.0 [facility] Comment on above: Order Comment: Speci men Type: BLOOD SPECIMENOrdering Facility: [facility] Address: [address] [place] [address] Performed By: #### 5 7021-8 ####[facility] LABCLIA [id number] [place] [address] [place] Hemoglobin (Bld) [Mass/Vol] 8.9 g/dL Low 11.5-15.5 [facility] Comment on above: Order Comment: Speci men Type: BLOOD SPECIMENOrdering Facility: [facility] Address: [address] [place] [address] Performed By: #### 5 7021-8 ####[facility] LABCLIA [id number] [place] [address] [place] Immature granulocytes (Bld) [#/Vol] 10*3/uL Normal <0.10 [facility] Comment on above: Order Comment: Speci men Type: BLOOD SPECIMENOrdering Facility: [facility] Address: [address] [place] [address] Performed By: #### 5 7021-8 ####[facility] LABCLIA [id number] [place] [address] [place] Immature granulocytes/100 WBC (Bld) 0.2 % Normal [facility] Comment on above: Order Comment: Speci men Type: BLOOD SPECIMENOrdering Facility: [facility] Address: [address] [place] [address] Performed By: #### 5 7021-8 ####[facility] LABCLIA [id number] [place] [address] [place] Lymphocytes (Bld) [#/Vol] 1.19 10*3/uL Normal 1.00-4.00 [facility] Comment on above: Order Comment: Speci men Type: BLOOD SPECIMENOrdering Facility: [facility] Address: [address] [place] [address] Performed By: #### 5 7021-8 ####[facility] LABIA [id number] [place] [address] [place] Lymphocytes/100 WBC (Bld) 29.7 % Normal [facility] Comment on above: Order Comment: Speci men Type: BLOOD SPECIMENOrdering Facility: [facility] Address: [address] [place] [address] Performed By: #### 5 7021-8 ####[facility] LABIA [id number] [place] [address] [place] MCH (RBC) [Entitic mass] 28.0 pg Normal 26.0-34.0 [facility] Comment on above: Order Comment: Speci men Type: BLOOD SPECIMENOrdering Facility: [facility] Address: [address] [place] [address] Performed By: #### 5 7021-8 ####[facility] [id number] [place] [address] [place] MCHC (RBC) [Mass/Vol] 30.2 g/dL Low 30.5-36.0 [facility] Comment on above: Order Comment: Speci men Type: BLOOD SPECIMENOrdering Facility: [facility] Address: [address] [place] [address] Performed By: #### 5 7021-8 ####[facility] LABIA [id number] [place] [address] [place] MCV (RBC) [Entitic vol] 92.8 fL Normal 80.0-100.0 [facility] Comment on above: Order Comment: Speci men Type: BLOOD SPECIMENOrdering Facility: [facility] Address: [address] [place] [address] Performed By: #### 5 7021-8 ####[facility] LABIA [id number] [place] [address] [place] Monocytes (Bld) [#/Vol] 0.56 10*3/uL Normal <0.87 [facility] Comment on above: Order Comment: Speci men Type: BLOOD SPECIMENOrdering Facility: [facility] Address: [address] [place] [address] Performed By: #### 5 7021-8 ####[facility] LABCLIA [id number] [place] [address] [place] Monocytes/100 WBC (Bld) 14.0 % Normal [facility] Comment on above: Order Comment: Speci men Type: BLOOD SPECIMENOrdering Facility: [facility] Address: [address] [place] [address] Performed By: #### 5 7021-8 ####[facility] LABCLIA [id number] [place] [address] [place] Neutrophils (Bld) [#/Vol] 2.17 10*3/uL Normal 1.45-7.50 [facility] Comment on above: Order Comment: Speci men Type: BLOOD SPECIMENOrdering Facility: [facility] Address: [address] [place] [address] Performed By: #### 5 7021-8 ####[facility] LABCLIA [id number] [place] [address] [place] Neutrophils/100 WBC (Bld) 54.1 % Normal [facility] Comment on above: Order Comment: Speci men Type: BLOOD SPECIMENOrdering Facility: [facility] Address: [address] [place] [address] Performed By: #### 5 7021-8 ####[facility] LABCLIA [id number] [place] [address] [place] Nucleated RBC (Bld) [#/Vol] 10*3/uL Normal <0.01 [facility] Comment on above: Order Comment: Speci men Type: BLOOD SPECIMENOrdering Facility: [facility] Address: [address] [place] [address] Performed By: #### 5 7021-8 ####[facility] LABCLIA [id number] [place] [address] [place] Nucleated RBC/100 WBC (Bld) [Ratio] 0.0 /100 WBC Normal [facility] Comment on above: Order Comment: Speci men Type: BLOOD SPECIMENOrdering Facility: [facility] Address: [address] [place] [address] Performed By: #### 5 7021-8 ####[facility] LABCLIA [id number] [place] [address] [place] Platelet mean volume (Bld) [Entitic vol] 11.7 fL Normal 9.0-12.7 [facility] Comment on above: Order Comment: Speci men Type: BLOOD SPECIMENOrdering Facility: [facility] Address: [address] [place] [address] Performed By: #### 5 7021-8 ####[facility] LABCLIA [id number] [place] [address] [place] Platelets (Bld) [#/Vol] 210 10*3/uL Normal 150-400 [facility] Comment on above: Order Comment: Speci men Type: BLOOD SPECIMENOrdering Facility: [facility] Address: [address] [place] [address] Performed By: #### 5 7021-8 ####[facility] LABCLIA [id number] [place] [address] [place] RBC (Bld) [#/Vol] 3.18 10*6/uL Low 3.90-5.20 [facility] Comment on above: Order Comment: Speci men Type: BLOOD SPECIMENOrdering Facility: [facility] Address: [address] [place] [address] Performed By: #### 5 7021-8 ####[facility] LABCLIA [id number] [place] [id number] [place] WBC (Bld) [#/Vol] 4.01 10*3/uL Normal 3.70-11.00 [facility] Comment on above: Order Comment: Speci men Type: BLOOD SPECIMENOrdering Facility: [facility] Address: [address] [place] [address] Performed By: #### 5 7021-8 ####[facility] [id number] [place] [id number] [place] CNOVon 05-28-2024 CNOV Office Visit (INTMWS ) CASSIA HOLLAND ([id number]) 1965 F Date Time Provider Department 05/28/24 12:20 PM SHAHRIAR BROWN INTMWS During your visit today, we recorded the following information about you: Pulse Respiration Blood pressure Weight 90/minute 16/minute 138/78 85.3 kg Shahriar Brown APRN.CNP 05/28/2024 6:33 PM Signed CC: Patient presents with: Recheck: Follow up HPI Cassia Holland is a 58 year old female who presents today for 2 week follow up post upper EGD for occult GI bleeding .Patient presented to the ER on 05/10/24 related to extreme fatigue and dizziness. Patient reports that most concerning symptoms prior to EGD such as the intense fatigue, dizziness and lightheadedness, dark stools, generalized weakness, hot with increased sweating, SOB with exertion, face puffiness, headaches, sinus pressure, ringing in ears, and bloody sinus drainage but was green with sinus rinse. are starting to resolve from continuous to intermittent with no reports of green with sinus rinse. Last visit prior to EGD. Most concerning symptoms were: Current symptoms: still with intense fatigue, dizziness and lightheadedness, dark stools, generalized weakness, hot with increased sweating, SOB with exertion, face puffiness, headaches, sinus pressure, ringing in ears, and bloody sinus drainage but was green with sinus rinse. Had EGD as planned and reports they found multiple gastric polyps and reported Cauterization and clamping of lesions and gastric polyps were removed States that symptoms have lessened in intensity and are intermittent now. No longer with dark stool or green sinus drainage. Now has a Colonoscopy on July 30 of this year DIABETES MELLITUS: Ms. Holland denies excessive thirst or increased frequency of urination, chest pain or dyspnea , numbness, tingling or pain in extremities, new or unusual visual symptoms, low sugar/hypoglycemic reactions, weight loss/gain, lightheadedness/dizziness, and bowel changes/loose stools,denies positive DM symptoms Follows a diabetic diet some of the time. She is compliant with medication(s) and is tolerating med(s) without any side effects. She reports checking her glucose on a blood glucose test strip a few times a month and when she feels she may be hypoglycemic.schedule with sugars in the <120 range. Patient's last HgA1C was Hemoglobin A1C (%) Date Value 12/18/2023 5.6 06/13/2023 6.4 05/05/2021 7.3 12/24/2020 9.1 Hemoglobin A1C (POCT) (%) Date Value 01/19/2022 7.2 10/13/2021 8.4 ) Denies secondary issues of DM REVIEW OF SYSTEMS General: no fevers, no [...] chest pressure, no palpitations, and no swelling Skin: Negative for lesions, rash, and itching PAST MEDICAL HISTORY Diagnosis Date Diabetes (HCC) adult onset Fibromyalgia Graves disease High blood pressure HSV-2 infection Interstitial lung disease (HCC) Lupus (HCC) Mixed connective tissue disease (HCC) Raynaud disease PAST SURGICAL HISTORY Procedure Laterality Date D AND C HYSTERECTOMY LAPAROSCOPY DIAGNOSTIC PAST SURGICAL HISTORY OF 7 sinus surgeries PAST SURGICAL HISTORY OF bilateral cataract surgeries PT [facility] 12/2022 2 heart stents placed PT ED HEART AND VASCULAR 09/2023 heart ablation TONSILLECTOMY HX ALLERGIES Cantaloupe, Levaquin [Levofloxacin], and Sulfa (Sulfonamide Antibiotics) MEDICATIONS clopidogrel (PLAVIX) 75 mg tablet take 4 tablets by mouth on day 1 then 1 tablet by mouth once daily after ferrous sulfate 325 mg (65 mg iron) tablet Take 1 tablet by mouth two times a day with meals. budesonide (PULMICORT) 1 mg/2 mL nebulizer solution instill contents of 1 vial IN NASAL SALINE WASHES AND USE TWICE DAILY tiZANidine HCl (ZANAFLEX) 2 mg capsule Take 1 capsule by mouth three times a day as needed. citalopram (CELEXA) 40 mg tablet Take 1 tablet by mouth once daily. buPROPion XL (WELLBUTRIN XL) 150 mg 24 hr tablet Take 1 tablet by mouth once daily. triamcinolone acetonide (KENALOG) 0.1 % cream Apply to affected area two times a day. carvedilol (COREG) 25 mg tablet Take 12.5 mg by mouth two times a day with meals. Takes 12.5mg BID nitroglycerin sublingual (NITROSTAT) 0.4 mg SL tablet Dissolve 0.4 mg under the tongue every 5 minutes as needed for chest pain. losartan (COZAAR) 50 mg tablet Take 1 tablet by mouth once daily. metFORMIN ER (GLUCOPHAGE XR) 500 mg 24 hr tablet Take 2 tablets by mouth two times a day with meals. hydrOXYchloroQUINE (PLAQUENIL) 200 (more content not included)... Normal [facility] HbA1c (Bld)on 05-28-2024 Average glucose Estimated from glycated hemoglobin (Bld) [Mass/Vol] 80 mg/dL [facility] Comment on above: eAG: (Estimated aver age glucose) is a calculated value from HgbA1c and is congressional representative of the average blood glucose level in the last 2-3 month period. HbA1c (Bld) [Mass fraction] 4.4 % 4.3 - 5.6 % [facility] Comment on above: [place] Diabetes As sociation guidelines indicate that patients with HgbA1c in the range 5.7-6.4% are at increased risk for development of diabetes, and intervention by lifestyle modification may be beneficial. HgbA1c greater or equal to 6.5% is considered diagnostic of diabetes. [facility] Average glucose Estimated from glycated hemoglobin (Bld) [Mass/Vol] 80 mg/dL Normal [facility] Comment on above: Order Comment: Speci men Type: BLOOD SPECIMENOrdering Facility: [facility] Address: [address] [place] [address] Result Comment: eAG: (Estimated average glucose) is a calculated value from HgbA1c and is congressional representative of the average blood glucose level in the last 2-3 month period. Performed By: #### 5 5454-3 ####[facility] LABCLIA [id number] [place] [address] [place] HbA1c (Bld) [Mass fraction] 4.4 % Normal 4.3-5.6 [facility] Comment on above: Order Comment: Bradley castellanos Type: BLOOD SPECIMENOrdering Facility: [facility] Address: [address] [place] [address] Result Comment: Amer ican Diabetes Association guidelines indicate that patients with HgbA1c in the range 5.7-6.4% are at increased risk for development of diabetes, and intervention by lifestyle modification may be beneficial. HgbA1c greater or equal to 6.5% is considered diagnostic of diabetes. Performed By: #### 5 5454-3 ####[facility] LABCLIA [id number] [place] [address] [place] Absolute neutrophil countOrd ered By: Kaya Pierce on 05-21-2024 Neutrophils (Bld) [#/Vol] 1.8 10*3/uL Low 2.0-7.7 [facility] Basophil percentageOrdered B y: Kaya Pierce on 05-21-2024 Basophils/100 WBC (Bld) 0.7 % 0-1 [facility] CBC W/Diff, Automatedon 05-07 Absolute Lymph 0.71 X10 3/uL Low 0.83-4.51 [facility] Comment on above: Performed By: #### L 100.0100 ####[facility] [address] [place], [address] Absolute Neut 1.8 X10 3/uL Low 2.0-7.7 [facility] Comment on above: Performed By: #### L 100.0100 ####[facility] [address] [place], [address] Basophils/100 WBC (Bld) 0.7 % Normal 0-1 [facility] Comment on above: Performed By: #### L 100.0100 ####[facility] [address] [place], [address] Eosinophils/100 WBC (Bld) 1.7 % Normal 0-5 [facility] Comment on above: Performed By: #### L 100.0100 ####[facility] [address] [place], [address] Erythrocyte distribution width (RBC) [Ratio] 15.8 % High 11.6-14.6 [facility] Comment on above: Performed By: #### L 100.0100 ####[facility] [address] [place], [address] Hematocrit (Bld) [Volume fraction] 26.8 % Low 37-47 [facility] Comment on above: Performed By: #### L 100.0100 ####[facility] [address] [place], [address] Hemoglobin (Bld) [Mass/Vol] 8.1 g/dL Low 12.0-15.0 [facility] Comment on above: Performed By: #### L 100.0100 ####[facility] [address] [place], [address] IG% 0.300 Normal 0.0-0.9 [facility] Comment on above: Result Comment: IG% - Immature Granulocytes (promyelocytes, myelocytes andmetamyelocytes) > 1% indicates that a LEFT SHIFT is Present. Performed By: #### L 100.0100 ####[facility] [address] [place], [address] Lymphocytes/100 WBC (Bld) 23.9 % Normal 19-41 [facility] Comment on above: Performed By: #### L 100.0100 ####[facility] [address] [place], [address] MCH (RBC) [Entitic mass] 28.1 pg Normal 27.0-32.0 [facility] Comment on above: Performed By: #### L 100.0100 ####[facility] [address] [place], [address] MCHC (RBC) [Mass/Vol] 30.2 g/dL Low 32-36 [facility] Comment on above: Performed By: #### L 100.0100 ####[facility] [address] [place], [address] MCV (RBC) [Entitic vol] 93.1 fL Normal 81-99 [facility] Comment on above: Performed By: #### L 100.0100 ####[facility] [address] [place], [address] Monocytes/100 WBC (Bld) 13.1 % High 0-10 [facility] Comment on above: Performed By: #### L 100.0100 ####[facility] [address] [place], [address] Neutrophils/100 WBC (Bld) 60.3 % Normal 47-70 [facility] Comment on above: Performed By: #### L 100.0100 ####[facility] [address] [place], [address] Nucleated RBC (Bld) [#/Vol] 0 10*3/uL Normal 0-5 [facility] Comment on above: Performed By: #### L 100.0100 ####[facility] [address] [place], [address] Platelet mean volume (Bld) [Entitic vol] 11.5 fL Normal 6.2-12.0 [facility] Comment on above: Performed By: #### L 100.0100 ####[facility] [address] [place], [address] Platelets (Bld) [#/Vol] 182 10*3/uL Normal 150-450 [facility] Comment on above: Performed By: #### L 100.0100 ####[facility] [address] [place], [address] RBC (Bld) [#/Vol] 2.88 10*6/uL Low 4.2-5.4 [facility] Comment on above: Performed By: #### L 100.0100 ####[facility] [address] [place], [address] RDW SD 54.3 fl High 35.1-43.9 [facility] Comment on above: Performed By: #### L 100.0100 ####[facility] [address] [place], [address] WBC (Bld) [#/Vol] 3.0 10*3/uL Low 4.4-11.0 [facility] Comment on above: Performed By: #### L 100.0100 ####[facility] [address] [place], [address] Eosinophil percentageOrdered By: Kaya Pierce on 05-21-2024 Eosinophils/100 WBC (Bld) 1.7 % 0-5 [facility] Erythrocyte distribution wid th ratioOrdered By: Kaya Pierce on 05-21-2024 Erythrocyte distribution width (RBC) [Ratio] 15.8 % High 11.6-14.6 [facility] Erythrocyte distribution wid th standard deviationOrdered By: Kaya Pierce on 05-21-2024 Erythrocyte distribution width (RBC) [Entitic vol] 54.3 fL High 35.1-43.9 [facility] Gastroenterology Visit Repor ton 05-21-2024 Gastroenterology Visit Report Normal [facility] Hematocrit Auto (Bld) [Volum e fraction]Ordered By: Kaya Pierce on 05-21-2024 Hematocrit (Bld) [Volume fraction] 26.8 % Low 37-47 [facility] Hemoglobin measurementOrdere d By: Kaya Pierce on 05-21-2024 Hemoglobin (Bld) [Mass/Vol] 8.1 g/dL Low 12.0-15.0 [facility] Immature granulocytes/100 WB C Auto (Bld)Ordered By: Kaya Pierce on 05-21-2024 Immature granulocytes/100 WBC (Bld) 0.300 % 0.0-0.9 [facility] Comment on above: IG% - Immature Granu locytes (promyelocytes, myelocytes and metamyelocytes) > 1% indicates that a LEFT SHIFT is Present. Lymphocytes Auto (Unsp spec) [#/Vol]Ordered By: Kaya Pierce on 05-21-2024 Lymphocytes (Bld) [#/Vol] 0.71 10*3/uL Low 0.83-4.51 [facility] Lymphocytes/100 WBC Auto (Un sp spec)Ordered By: Kaya Pierce on 05-21-2024 Lymphocytes/100 WBC (Bld) 23.9 % 19-41 [facility] MCV (mean corpuscular volume ) determinationOrdered By: Kaya Pierce on 05-21-2024 MCV (RBC) [Entitic vol] 93.1 fL 81-99 [facility] Mean corpuscular hemoglobin (MCH) determinationOrdered By: Kaya Pierce on 05-21-2024 MCH (RBC) [Entitic mass] 28.1 pg 27.0-32.0 [facility] Mean corpuscular hemoglobin concentration (MCHC) determinationOrdered By: Kaya Pierce on 05-21-2024 MCHC (RBC) [Mass/Vol] 30.2 g/dL Low 32-36 [facility] Mean platelet volume determi nationOrdered By: Kaya Pierce on 05-21-2024 Platelet mean volume (Bld) [Entitic vol] 11.5 fL 6.2-12.0 [facility] Monocyte percentageOrdered B y: Kaya Pierce on 05-21-2024 Monocytes/100 WBC (Bld) 13.1 % High 0-10 [facility] Neutrophil percentageOrdered By: Kaya Pierce on 05-21-2024 Neutrophils/100 WBC (Bld) 60.3 % 47-70 [facility] Nucleated red blood cell per centageOrdered By: Kyaa Pierce on 05-21-2024 Nucleated RBC/100 WBC (Bld) [Ratio] 0 % 0-5 [facility] Platelet countOrdered By: Arcadio Pierce on 05-21-2024 Platelets (Bld) [#/Vol] 182 10*3/uL 150-450 [facility] RBC Auto (Bld) [#/Vol]Ordere d By: Kaya Pierce on 05-21-2024 RBC (Bld) [#/Vol] 2.88 10*6/uL Low 4.2-5.4 [facility] White blood cell (WBC) count Ordered By: Kaya Pierce on 05-21-2024 WBC (Bld) [#/Vol] 3.0 10*3/uL Low 4.4-11.0 [facility] 12 Lead EKGon 05-14-2024 12 Lead EKG Normal [facility] Albumin to globulin ratioOrd ered By: Franklin Anne on 05-14-2024 Albumin/Globulin [Mass ratio] 0.9 {ratio} 0.9-2.4 [facility] Bedside Glucoseon 05-14-2024 FINGERSTICK GLU 100 mg/dL Normal 74-106 [facility] Comment on above: Result Comment: MATTHEW PLASCENCIA OF PATIENT CARE PER NURSING PROTOCOL Performed By: #### L 501.080 ####[facility] [address] [place], [place], [address] Bilirubin, totalOrdered By: Franklin Anne on 05-14-2024 Bilirubin [Mass/Vol] 0.40 mg/dL 0.20-1.00 [facility] Comment on above: For patients on eltr ombopag therapy, use of Dimension [place] TBIL is not recommended. Blood urea nitrogen (BUN)/cr eatinine ratioOrdered By: Franklin Anne on 05-14-2024 Urea nitrogen/Creatinine [Mass ratio] 37.9 mg/mg High 10-20 [facility] CBC-Complete Blood Cnt No Alexandra ffon 05-14-2024 Erythrocyte distribution width (RBC) [Ratio] 18.2 % High 11.6-14.6 [facility] Comment on above: Performed By: #### L 500.4050, L300.4310, L100.0500, L300.3900 ####[facility] [address] [place], [address] Hematocrit (Bld) [Volume fraction] 23.4 % Low 37-47 [facility] Comment on above: Performed By: #### L 500.4050, L300.4310, L100.0500, L300.3900 ####[facility] [address] [place], [address] Hemoglobin (Bld) [Mass/Vol] 7.5 g/dL Low 12.0-15.0 [facility] Comment on above: Performed By: #### L 500.4050, L300.4310, L100.0500, L300.3900 ####[facility] [address] [place], [address] MCH (RBC) [Entitic mass] 30.0 pg Normal 27.0-32.0 [facility] Comment on above: Performed By: #### L 500.4050, L300.4310, L100.0500, L300.3900 ####[facility] [address] [place], [address] MCHC (RBC) [Mass/Vol] 32.1 g/dL Normal 32-36 [facility] Comment on above: Performed By: #### L 500.4050, L300.4310, L100.0500, L300.3900 ####[facility] [address] [place], [address] MCV (RBC) [Entitic vol] 93.6 fL Normal 81-99 [facility] Comment on above: Performed By: #### L 500.4050, L300.4310, L100.0500, L300.3900 ####[facility] [address] [place], [address] Platelet mean volume (Bld) [Entitic vol] 11.5 fL Normal 6.2-12.0 [facility] Comment on above: Performed By: #### L 500.4050, L300.4310, L100.0500, L300.3900 ####[facility] [address] [place], [address] Platelets (Bld) [#/Vol] 193 10*3/uL Normal 150-450 [facility] Comment on above: Performed By: #### L 500.4050, L300.4310, L100.0500, L300.3900 ####[facility] [address] [place], [address] RBC (Bld) [#/Vol] 2.50 10*6/uL Low 4.2-5.4 [facility] Comment on above: Performed By: #### L 500.4050, L300.4310, L100.0500, L300.3900 ####[facility] [address] [place], [address] RDW SD 61.5 fl High 35.1-43.9 [facility] Comment on above: Performed By: #### L 500.4050, L300.4310, L100.0500, L300.3900 ####[facility] [address] [place], [address] WBC (Bld) [#/Vol] 4.1 10*3/uL Low 4.4-11.0 [facility] Comment on above: Performed By: #### L 500.4050, L300.4310, L100.0500, L300.3900 ####[facility] [address] [place], [address] CNOVon 05-14-2024 CNOV Office Visit (INTMWS ) CASSIA HOLLAND ([id number]) 1965 F Date Time Provider Department 05/14/24 9:40 AM SHAHRIAR BROWN During your visit today, we recorded the following information about you: Pulse Respiration Blood pressure Weight 84/minute 16/minute 102/58 85.3 kg Shahriar Brown APRN.CNP 05/14/2024 10:05 AM Signed CC: Patient presents with: Recheck: 3 month follow up, recent ER follow up HPI Cassia Holland is a 58 year old female who presents today for ER follow-up. Facility: [facility] ER Date of visit: 05/10/24 Reason for visit: extreme fatigue and dizziness. Hospital course: CT of the brain and CXR showing no acute pathology of the brain but full report not available for review in appointment. Hgb of 6.4 with HCT of 21.4 - 1 unit of PRBC and is holding her plavix and Eliquis which she was on for paroxysmal a-fib and stent placement in 2022. Has an EGD with Dr. Daley later today with repeat blood work and possible transfusions. Will be admitted if transfusion is needed. Diagnosis: anemia Current symptoms: still with intense fatigue, dizziness and lightheadedness, dark stools, generalized weakness, hot with increased sweating, SOB with exertion, face puffiness, headaches, sinus pressure, ringing in ears, and bloody sinus drainage but was green with sinus rinse. Denies vomiting, abdominal pain, alicia blood in stool, syncope, palpitations, chest pain, and edema. REVIEW OF SYSTEMS See HPI PAST MEDICAL HISTORY Diagnosis Date Diabetes (HCC) adult onset Fibromyalgia Graves disease High blood pressure HSV-2 infection Interstitial lung disease (HCC) Lupus (HCC) Mixed connective tissue disease (HCC) Raynaud disease PAST SURGICAL HISTORY Procedure Laterality Date D AND C HYSTERECTOMY LAPAROSCOPY DIAGNOSTIC PAST SURGICAL HISTORY OF 7 sinus surgeries PAST SURGICAL HISTORY OF bilateral cataract surgeries PT ED HEART AND VASCULAR 12/2022 2 heart stents placed PT ED HEART AND VASCULAR 09/2023 heart ablation TONSILLECTOMY HX ALLERGIES Cantaloupe, Levaquin [Levofloxacin], and Sulfa (Sulfonamide Antibiotics) MEDICATIONS budesonide (PULMICORT) 1 mg/2 mL nebulizer solution instill contents of 1 vial IN NASAL SALINE WASHES AND USE TWICE DAILY tiZANidine HCl (ZANAFLEX) 2 mg capsule Take 1 capsule by mouth three times a day as needed. citalopram (CELEXA) 40 mg tablet Take 1 tablet by mouth once daily. buPROPion XL (WELLBUTRIN XL) 150 mg 24 hr tablet Take 1 tablet by mouth once daily. triamcinolone acetonide (KENALOG) 0.1 % cream Apply to affected area two times a day. carvedilol (COREG) 25 mg tablet Take 12.5 mg by mouth two times a day with meals. Takes 12.5mg BID nitroglycerin sublingual (NITROSTAT) 0.4 mg SL tablet Dissolve 0.4 mg under the tongue every 5 minutes as needed for chest pain. losartan (COZAAR) 50 mg tablet Take 1 tablet by mouth once daily. metFORMIN ER (GLUCOPHAGE XR) 500 mg 24 hr tablet Take 2 tablets by mouth two times a day with meals. ferrous sulfate 325 mg (65 mg iron) tablet Take 1 tablet by mouth two times a day with meals. hydrOXYchloroQUINE (PLAQUENIL) 200 mg tablet Take 200 mg by mouth once daily. isosorbide mononitrate ER (IMDUR) 30 mg 24 hr tablet Take 30 mg by mouth every morning. lansoprazole (PREVACID) 30 mg capsule take 1 capsule by mouth once daily , 1/2 HOUR BEFORE BREAKFAST fluticasone (FLONASE) 50 mcg/actuation nasal spray instill 2 sprays into each nostril once daily benzonatate (TESSALON PERLES) 100 mg capsule Take 2 capsules by mouth three times a day as needed for cough. montelukast (SINGULAIR) 10 mg tablet take 1 tablet by mouth once daily apixaban (ELIQUIS) 5 mg tab(s) Take 5 mg by mouth two times a day. pravastatin sodium (PRAVASTATIN ORAL) Take by mouth. clopidogrel (PLAVIX) 75 mg tablet take 4 tablets by mouth on day 1 then 1 tablet by mouth once daily after hydroCHLOROthiazide 25 mg tablet take 1 tablet by mouth once daily EPINEPHrine (EPIPEN) 0.3 mg/0.3 mL auto-injector Use per directed for severe allergic reaction lancets (tenXerTOUCH DELICA PLUS LANCET) 33 gauge Test blood sugar(s) 1 times daily. Dx: Type 2 DM - Controlled E11.9 Insulin: No blood sugar diagnostic (tenXerTOUCH ULTRA TEST) test strip use 1 TEST STRIP to TEST BLOOD SUGAR once daily levalbuterol tartrate HFA (XOPENEX HFA) 45 mcg/actuation inhaler Inhale 1-2 Puffs as instructed every 4 hours as needed. Blood-Glucose Meter Dispense 1 kit FAMILY HISTORY Problem Relation Age of Onset Heart Mother stents Hypertension Mother other (pacemaker) Mother other (enlarged heart) Mother other (vertigo) Mother Arthritis Mother Prostate Cancer Father other (sjogrens) Sister No Known Problems Maternal Grandmother Heart Attack Maternal Grandfather No Known Problems Paternal Grandmother No Known Problems Paternal Grandfather Soc (more content not included)... Normal [facility] Carbon dioxide measurementOr dered By: Franklin Anne on 05-14-2024 CO2 [Moles/Vol] 23.0 mmol/L 21.0-32.0 [facility] Chloride measurementOrdered By: Franklin Anne on 05-14-2024 Chloride [Moles/Vol] 102 mmol/L 98-107 [facility] Comprehensive Metabolic Prof ilon 05-14-2024 Albumin [Mass/Vol] 3.1 g/dL Low 3.2-5.0 [facility] Comment on above: Performed By: #### L 500.4050, L300.4310, L100.0500, L300.3900 ####[facility] [address] [place], [place], [id number] Albumin/Globulin [Mass ratio] 0.9 {ratio} Normal 0.9-2.4 [facility] Comment on above: Performed By: #### L 500.4050, L300.4310, L100.0500, L300.3900 ####[facility] [address] [place], [address] ALK P 92 U/L Normal 45-117 [facility] Comment on above: Performed By: #### L 500.4050, L300.4310, L100.0500, L300.3900 ####[facility] [address] [place], [address] ALT [Catalytic activity/Vol] 69 U/L High 13-56 [facility] Comment on above: Performed By: #### L 500.4050, L300.4310, L100.0500, L300.3900 ####[facility] [address] [place], [address] AST [Catalytic activity/Vol] 52 U/L High 15-37 [facility] Comment on above: Performed By: #### L 500.4050, L300.4310, L100.0500, L300.3900 ####[facility] [address] [place], [address] Bilirubin [Mass/Vol] 0.40 mg/dL Normal 0.20-1.00 [facility] Comment on above: Result Comment: For patients on eltrombopag therapy, use of Dimension [place] TBIL is not recommended. Performed By: #### L 500.4050, L300.4310, L100.0500, L300.3900 ####[facility] [address] [place], [address] BUN/CRE 37.9 RATIO High 10-20 [facility] Comment on above: Performed By: #### L 500.4050, L300.4310, L100.0500, L300.3900 ####[facility] [address] [place], [address] CA,Total 8.3 mg/dL Low 8.5-10.1 [facility] Comment on above: Performed By: #### L 500.4050, L300.4310, L100.0500, L300.3900 ####[facility] [address] [place], [address] Chloride [Moles/Vol] 102 mmol/L Normal 98-107 [facility] Comment on above: Performed By: #### L 500.4050, L300.4310, L100.0500, L300.3900 ####[facility] [address] [place], [address] CO2 [Moles/Vol] 23.0 mmol/L Normal 21.0-32.0 [facility] Comment on above: Performed By: #### L 500.4050, L300.4310, L100.0500, L300.3900 ####[facility] [address] [place], [address] Creatinine [Mass/Vol] 0.58 mg/dL Normal 0.55-1.02 [facility] Comment on above: Result Comment: The validity of the calculated GFR GFRAA in patients over70 years has not been determined. Clinical correlation isessential. Performed By: #### L 500.4050, L300.4310, L100.0500, L300.3900 ####[facility] [address] [place], [address] ECRCL 109.22 ml/min Normal [facility] Comment on above: Performed By: #### L 500.4050, L300.4310, L100.0500, L300.3900 ####[facility] [address] [place], [address] EST GFR - AA 137 mL/min Normal >60 [facility] Comment on above: Result Comment: Afri can [place] GFR Calc Performed By: #### L 500.4050, L300.4310, L100.0500, L300.3900 ####[facility] [address] [place], [address] GAP 7 Normal 5-15 [facility] Comment on above: Performed By: #### L 500.4050, L300.4310, L100.0500, L300.3900 ####[facility] [address] [place], [address] GFR/1.73 sq M.predicted among non-blacks MDRD (S/P/Bld) [Vol rate/Area] 113 mL/min/{1.73_m2} Normal >60 [facility] Comment on above: Result Comment: Non- GFR Calc Performed By: #### L 500.4050, L300.4310, L100.0500, L300.3900 ####[facility] [address] [place], [address] Globulin (S) [Mass/Vol] 3.4 g/dL Normal 2.2-4.2 [facility] Comment on above: Performed By: #### L 500.4050, L300.4310, L100.0500, L300.3900 ####[facility] [address] [place], [address] Glucose [Mass/Vol] 100 mg/dL Normal 74-106 [facility] Comment on above: Result Comment: Fast ing Glucose result from 100 to 125 mg/dLsuggests IMPAIRED HOMEOSTASIS per A.D.A. criteria. Performed By: #### L 500.4050, L300.4310, L100.0500, L300.3900 ####[facility] [address] [place], [address] Potassium [Moles/Vol] 4.5 mmol/L Normal 3.5-5.1 [facility] Comment on above: Performed By: #### L 500.4050, L300.4310, L100.0500, L300.3900 ####[facility] [address] [place], [address] Sodium [Moles/Vol] 132 mmol/L Low 136-145 [facility] Comment on above: Performed By: #### L 500.4050, L300.4310, L100.0500, L300.3900 ####[facility] [address] [place], [address] T PROT 6.5 g/dL Normal 6.4-8.2 [facility] Comment on above: Performed By: #### L 500.4050, L300.4310, L100.0500, L300.3900 ####[facility] [address] [place], [address] Urea nitrogen [Mass/Vol] 22 mg/dL High 7-18 [facility] Comment on above: Performed By: #### L 500.4050, L300.4310, L100.0500, L300.3900 ####[facility] [address] [place], [address] EGD Reporton 05-14-2024 EGD Report Normal [facility] Erythrocyte distribution wid th ratioOrdered By: Franklin Anne on 05-14-2024 Erythrocyte distribution width (RBC) [Ratio] 18.2 % High 11.6-14.6 [facility] Erythrocyte distribution wid th standard deviationOrdered By: Franklin Anne on 05-14-2024 Erythrocyte distribution width (RBC) [Entitic vol] 61.5 fL High 35.1-43.9 [facility] Estimated glomerular filtrat ion rate (GFR) AmericanOrdered By: Franklin Anne on 05-14-2024 Estimated GFR (MDRD) Amer 137 mL/min >60 [facility] Comment on above: GFR Calc Estimation of creatinine javi aranceOrdered By: Franklin Anne on 05-14-2024 Estimated Creatinine Clearance Calc 109.22 ml/min [facility] Glomerular filtration rate ( GFR) estimationOrdered By: Franklin Anne on 05-14-2024 Estimated GFR (MDRD) Non-Af Amer 113 mL/min >60 [facility] Comment on above: Non- GFR Calc Glucose measurementOrdered B y: Franklin Anne on 05-14-2024 Glucose [Mass/Vol] 100 mg/dL 74-106 [facility] Comment on above: Fasting Glucose resu lt from 100 to 125 mg/dL suggests IMPAIRED HOMEOSTASIS per A.D.A. criteria. Glucose measurement at [facility] deOrdered By: Mike Daley on 05-14-2024 Bedside Glucose (Misc Panel) 100 mg/dL 74-106 [facility] Comment on above: MANAGEMENT OF PATIEN T CARE PER NURSING PROTOCOL H Pylori (initial)on 025 H Pylori (initial) Normal [facility] Comment on above: Performed By: #### P H.PYLORI ####[facility] [address] [place], [place], [address] Hematocrit Auto (Bld) [Volum e fraction]Ordered By: Franklin Anne on 05-14-2024 Hematocrit (Bld) [Volume fraction] 23.4 % Low 37-47 [facility] Hemoglobin measurementOrdere d By: Franklin Anne on 05-14-2024 Hemoglobin (Bld) [Mass/Vol] 7.5 g/dL Low 12.0-15.0 [facility] International normalized rat io (INR) calculationOrdered By: Franklin Anne on 05-14-2024 INR Coag (Bld) [Relative time] 1.2 {INR} [facility] Laboratory - Chemistry and C hemistry - challengeOrdered By: Franklin Anne on 05-14-2024 AST [Catalytic activity/Vol] 52 U/L High 15-37 [facility] MCV (mean corpuscular volume ) determinationOrdered By: Franklin Anne on 05-14-2024 MCV (RBC) [Entitic vol] 93.6 fL 81-99 [facility] Comment on above: Delta: 100.9 on 08/29-1719 MR/POSTOP.ANEon 05-14-2024 MR/POSTOP.ANE Normal [facility] MR/[id number] 05-14-2024 MR/POSTOPAN2 Normal [facility] Mean corpuscular hemoglobin (MCH) determinationOrdered By: Franklin Anne on 05-14-2024 MCH (RBC) [Entitic mass] 30.0 pg 27.0-32.0 [facility] Mean corpuscular hemoglobin concentration (MCHC) determinationOrdered By: Franklin Anne on 05-14-2024 MCHC (RBC) [Mass/Vol] 32.1 g/dL 32-36 [facility] Comment on above: Delta: 29.9 on 05/10 Mean platelet volume determi nationOrdered By: Franklin Anne on 05-14-2024 Platelet mean volume (Bld) [Entitic vol] 11.5 fL 6.2-12.0 [facility] Partial Thromboplast Timeon 05-14-2024 aPTT Coag (Bld) [Time] 28.8 s Normal 24.1-36.2 [facility] Comment on above: Performed By: #### L 500.4050, L300.4310, L100.0500, L300.3900 ####[facility] [address] [place], [place], [id number] Platelet countOrdered By: Dennis Anne on 05-14-2024 Platelets (Bld) [#/Vol] 193 10*3/uL 150-450 [facility] Potassium measurementOrdered By: Franklin Anne on 05-14-2024 Potassium [Moles/Vol] 4.5 mmol/L 3.5-5.1 [facility] Prothrombin Time w/INRon INR Coag (PPP) [Relative time] 1.2 {INR} Normal [facility] Comment on above: Performed By: #### L 500.4050, L300.4310, L100.0500, L300.3900 ####[facility] [address] [place], [address] PT Coag (PPP) [Time] 15.7 s High 11.7-14.9 [facility] Comment on above: Performed By: #### L 500.4050, L300.4310, L100.0500, L300.3900 ####[facility] [address] [place], [address] Prothrombin timeOrdered By: Frankiln Anne on 05-14-2024 PT Coag (PPP) [Time] 15.7 s High 11.7-14.9 [facility] RBC Auto (Bld) [#/Vol]Ordere d By: Franklin Anne on 05-14-2024 RBC (Bld) [#/Vol] 2.50 10*6/uL Low 4.2-5.4 [facility] Serum anion gap measurementO rdered By: Franklin Anne on 05-14-2024 Anion gap [Moles/Vol] 7 mmol/L 5-15 [facility] Serum globulin measurementOr dered By: Franklin Anne on 05-14-2024 Globulin (S) [Mass/Vol] 3.4 g/dL 2.2-4.2 [facility] Serum or plasma alanine amaro otransferase (ALT) measurementOrdered By: Franklin Anne on 05-14-2024 ALT [Catalytic activity/Vol] 69 U/L High 13-56 [facility] Serum or plasma albumin hailee urement (mass/volume)Ordered By: Franklin Anne on 05-14-2024 Albumin [Mass/Vol] 3.1 g/dL Low 3.2-5.0 [facility] Serum or plasma alkaline caren sphatase measurementOrdered By: Franklin Anne on 05-14-2024 ALP [Catalytic activity/Vol] 92 U/L 45-117 [facility] Serum or plasma calcium hailee urement (mass/volume)Ordered By: Franklin Anne on 05-14-2024 Calcium [Mass/Vol] 8.3 mg/dL Low 8.5-10.1 [facility] Serum or plasma creatinine m easurement (mass/volume)Ordered By: Franklin Anne on 05-14-2024 Creatinine [Mass/Vol] 0.58 mg/dL 0.55-1.02 [facility] Comment on above: The validity of the calculated GFR & GFRAA in patients over 70 years has not been determined. Clinical correlation is essential. Serum or plasma urea nitroge n measurement (mass/volume)Ordered By: Franklin Anne on 05-14-2024 Urea nitrogen [Mass/Vol] 22 mg/dL High 7-18 [facility] Sodium levelOrdered By: Franklin Anne on 05-14-2024 Sodium [Moles/Vol] 132 mmol/L Low 136-145 [facility] Surgery Specimen Level Margarita 05-14-2024 Surgery Specimen Level IV Normal [facility] Comment on above: Performed By: #### P SUIV ####[facility] [address] [place], [place], [address] Total proteinOrdered By: Franklin Anne on 05-14-2024 Protein [Mass/Vol] 6.5 g/dL 6.4-8.2 [facility] White blood cell (WBC) count Ordered By: Franklin Anne on 05-14-2024 WBC (Bld) [#/Vol] 4.1 10*3/uL Low 4.4-11.0 [facility] aPTT Coag (PPP) [Time]Ordere d By: Franklin Anne on 05-14-2024 aPTT Coag (Bld) [Time] 28.8 s 24.1-36.2 [facility] MR/PAT.ANEon 05-12-2024 MR/PAT.ANE Normal [facility] 12 Lead EKGon 05-10-2024 12 Lead EKG Normal [facility] Absolute neutrophil countOrd ered By: Alfredo Sr on 05-10-2024 Neutrophils (Bld) [#/Vol] 2.2 10*3/uL 2.0-7.7 [facility] BRCon 05-10-2024 RC Normal [facility] Comment on above: Result Comment: [id number] ON RC TRANSFUSED 05/10/24 2150 Performed By: #### B TS, BRC, M100.7900 ####[facility] [address] [place], [place], [address] Basic Metabolic Profile (BMP )on 05-10-2024 BUN/CRE 29.5 RATIO High 10-20 [facility] Comment on above: Performed By: #### L 100.0100, L500.2500 ####[facility] [address] [place], [address] CA,Total 8.3 mg/dL Low 8.5-10.1 [facility] Comment on above: Performed By: #### L 100.0100, L500.2500 ####[facility] [address] [place], [address] Chloride [Moles/Vol] 103 mmol/L Normal 98-107 [facility] Comment on above: Performed By: #### L 100.0100, L500.2500 ####[facility] [address] [place], [address] CO2 [Moles/Vol] 25.0 mmol/L Normal 21.0-32.0 [facility] Comment on above: Performed By: #### L 100.0100, L500.2500 ####[facility] [address] [place], [address] Creatinine [Mass/Vol] 0.54 mg/dL Low 0.55-1.02 [facility] Comment on above: Result Comment: The validity of the calculated GFR GFRAA in patients over70 years has not been determined. Clinical correlation isessential. Performed By: #### L 100.0100, L500.2500 ####[facility] [address] [place], [address] ECRCL 117.77 ml/min Normal [facility] Comment on above: Performed By: #### L 100.0100, L500.2500 ####[facility] [address] [place], [address] EST GFR - AA 148 mL/min Normal >60 [facility] Comment on above: Result Comment: Afri can [place] GFR Calc Performed By: #### L 100.0100, L500.2500 ####[facility] [address] [place], [address] GAP 5 Normal 5-15 [facility] Comment on above: Performed By: #### L 100.0100, L500.2500 ####[facility] [address] [place], [address] GFR/1.73 sq M.predicted among non-blacks MDRD (S/P/Bld) [Vol rate/Area] 122 mL/min/{1.73_m2} Normal >60 [facility] Comment on above: Result Comment: Non- GFR Calc Performed By: #### L 100.0100, L500.2500 ####[facility] [address] [place], [address] Glucose [Mass/Vol] 84 mg/dL Normal 74-106 [facility] Comment on above: Performed By: #### L 100.0100, L500.2500 ####[facility] [address] [place], [address] Potassium [Moles/Vol] 4.5 mmol/L Normal 3.5-5.1 [facility] Comment on above: Performed By: #### L 100.0100, L500.2500 ####[facility] [address] [place], [address] Sodium [Moles/Vol] 133 mmol/L Low 136-145 [facility] Comment on above: Performed By: #### L 100.0100, L500.2500 ####[facility] [address] [place], [address] Urea nitrogen [Mass/Vol] 16 mg/dL Normal 7-18 [facility] Comment on above: Performed By: #### L 100.0100, L500.2500 ####[facility] [address] [place], [address] Basophil percentageOrdered B y: Alfredonazanin Sr on 05-10-2024 Basophils/100 WBC (Bld) 0.2 % 0-1 [facility] Blood urea nitrogen (BUN)/cr eatinine ratioOrdered By: Alfredo Sr on 05-10-2024 Urea nitrogen/Creatinine [Mass ratio] 29.5 mg/mg High 10-20 [facility] Brain/Head without Contrasto n 05-10-2024 Brain/Head without Contrast Normal [facility] CBC W/Diff, Automatedon Absolute Lymph 1.34 X10 3/uL Normal 0.83-4.51 [facility] Comment on above: Performed By: #### L 100.0100, L500.2500 ####[facility] [address] [place], [address] Absolute Neut 2.2 X10 3/uL Normal 2.0-7.7 [facility] Comment on above: Performed By: #### L 100.0100, L500.2500 ####[facility] [address] [place], [address] Basophils/100 WBC (Bld) 0.2 % Normal 0-1 [facility] Comment on above: Performed By: #### L 100.0100, L500.2500 ####[facility] [address] [place], [address] Eosinophils/100 WBC (Bld) 2.5 % Normal 0-5 [facility] Comment on above: Performed By: #### L 100.0100, L500.2500 ####[facility] [address] [place], [address] Erythrocyte distribution width (RBC) [Ratio] 17.2 % High 11.6-14.6 [facility] Comment on above: Performed By: #### L 100.0100, L500.2500 ####[facility] [address] [place], [address] Hematocrit (Bld) [Volume fraction] 21.4 % Low 37-47 [facility] Comment on above: Performed By: #### L 100.0100, L500.2500 ####[facility] [address] [place], [address] Hemoglobin (Bld) [Mass/Vol] 6.4 g/dL Low 12.0-15.0 [facility] Comment on above: Performed By: #### L 100.0100, L500.2500 ####[facility] [address] [place], [address] IG% 0.500 Normal 0.0-0.9 [facility] Comment on above: Result Comment: IG% - Immature Granulocytes (promyelocytes, myelocytes andmetamyelocytes) > 1% indicates that a LEFT SHIFT is Present. Performed By: #### L 100.0100, L500.2500 ####[facility] [address] [place], [address] Lymphocytes/100 WBC (Bld) 32.8 % Normal 19-41 [facility] Comment on above: Performed By: #### L 100.0100, L500.2500 ####[facility] [address] [place], [address] MCH (RBC) [Entitic mass] 30.2 pg Normal 27.0-32.0 [facility] Comment on above: Performed By: #### L 100.0100, L500.2500 ####[facility] [address] [place], [address] MCHC (RBC) [Mass/Vol] 29.9 g/dL Low 32-36 [facility] Comment on above: Performed By: #### L 100.0100, L500.2500 ####[facility] [address] [place], [address] MCV (RBC) [Entitic vol] 100.9 fL High 81-99 [facility] Comment on above: Performed By: #### L 100.0100, L500.2500 ####[facility] [address] [place], [address] Monocytes/100 WBC (Bld) 9.1 % Normal 0-10 [facility] Comment on above: Performed By: #### L 100.0100, L500.2500 ####[facility] [address] [place], [address] Neutrophils/100 WBC (Bld) 54.9 % Normal 47-70 [facility] Comment on above: Performed By: #### L 100.0100, L500.2500 ####[facility] [address] [place], [address] Nucleated RBC (Bld) [#/Vol] 0 10*3/uL Normal 0-5 [facility] Comment on above: Performed By: #### L 100.0100, L500.2500 ####[facility] [address] [place], [address] Platelet mean volume (Bld) [Entitic vol] 11.0 fL Normal 6.2-12.0 [facility] Comment on above: Performed By: #### L 100.0100, L500.2500 ####[facility] [address] [place], [address] Platelets (Bld) [#/Vol] 161 10*3/uL Normal 150-450 [facility] Comment on above: Performed By: #### L 100.0100, L500.2500 ####[facility] [address] [place], [address] RBC (Bld) [#/Vol] 2.12 10*6/uL Low 4.2-5.4 [facility] Comment on above: Performed By: #### L 100.0100, L500.2500 ####[facility] [address] [place], [address] RDW SD 59.7 fl High 35.1-43.9 [facility] Comment on above: Performed By: #### L 100.0100, L500.2500 ####[facility] [address] [place], [address] WBC (Bld) [#/Vol] 4.1 10*3/uL Low 4.4-11.0 [facility] Comment on above: Performed By: #### L 100.0100, L500.2500 ####[facility] [address] [place], [address] Carbon dioxide measurementOr dered By: Alfredo Sr on 05-10-2024 CO2 [Moles/Vol] 25.0 mmol/L 21.0-32.0 [facility] Chest PA and Lateralon 05-10 Chest PA and Lateral Normal [facility] Chloride measurementOrdered By: Alfredo Sr on 05-10-2024 Chloride [Moles/Vol] 103 mmol/L 98-107 [facility] Emergency Department Summary on 05-10-2024 Emergency Department Summary Normal [facility] Eosinophil percentageOrdered By: Alfredo Sr on 05-10-2024 Eosinophils/100 WBC (Bld) 2.5 % 0-5 [facility] Erythrocyte distribution wid th ratioOrdered By: Alfredo Sr on 05-10-2024 Erythrocyte distribution width (RBC) [Ratio] 17.2 % High 11.6-14.6 [facility] Erythrocyte distribution wid th standard deviationOrdered By: Alfredo Sr on 05-10-2024 Erythrocyte distribution width (RBC) [Entitic vol] 59.7 fL High 35.1-43.9 [facility] Estimated glomerular filtrat ion rate (GFR) AmericanOrdered By: Alfredo Sr on 05-10-2024 Estimated GFR (MDRD) Amer 148 mL/min >60 [facility] Comment on above: GFR Calc Estimation of creatinine javi aranceOrdered By: Alfredo Sr on 05-10-2024 Estimated Creatinine Clearance Calc 117.77 ml/min [facility] Glomerular filtration rate ( GFR) estimationOrdered By: Alfredo Sr on 05-10-2024 Estimated GFR (MDRD) Non-Af Amer 122 mL/min >60 [facility] Comment on above: Non- GFR Calc Glucose measurementOrdered B y: Alfredo Sr on 05-10-2024 Glucose [Mass/Vol] 84 mg/dL 74-106 [facility] Hematocrit Auto (Bld) [Volum e fraction]Ordered By: Alfredo Sr on 05-10-2024 Hematocrit (Bld) [Volume fraction] 21.4 % Low 37-47 [facility] Hemoglobin measurementOrdere d By: Alfredo Sr on 05-10-2024 Hemoglobin (Bld) [Mass/Vol] 6.4 g/dL Low 12.0-15.0 [facility] Immature granulocytes/100 WB C Auto (Bld)Ordered By: Alfredonazanin Sr on 05-10-2024 Immature granulocytes/100 WBC (Bld) 0.500 % 0.0-0.9 [facility] Comment on above: IG% - Immature Granu locytes (promyelocytes, myelocytes and metamyelocytes) > 1% indicates that a LEFT SHIFT is Present. Influenza virus A and B and SARS-CoV-2 (COVID-19) and Respiratory syncytial virus RNAOrdered By: Alfredo Sr on 05-10-2024 SARS-CoV-2 (COVID-19) RNA [place]+probe Ql (Unsp spec) [facility] Lower GI hemoglobin IA Ql (S tl)Ordered By: Alfredo Sr on 05-10-2024 Stool Occult Blood (ALIX) Positive Abnormal [facility] Lymphocytes Auto (Unsp spec) [#/Vol]Ordered By: Alfredo Sr on 05-10-2024 Lymphocytes (Bld) [#/Vol] 1.34 10*3/uL 0.83-4.51 [facility] Lymphocytes/100 WBC Auto (Un sp spec)Ordered By: Alfredo Sr on 05-10-2024 Lymphocytes/100 WBC (Bld) 32.8 % 19-41 [facility] M100.678on 05-10-2024 M100.678 Pending SARS-CoV-2 (COVID 19) Negative INFLUENZA A Negative INFLUENZA B Negative RSV PCR Negative Normal [facility] Comment on above: Performed By: #### M 100.678 ####[facility] [address] [place], [address] MCV (mean corpuscular volume ) determinationOrdered By: Alfredo Sr on 05-10-2024 MCV (RBC) [Entitic vol] 100.9 fL High 81-99 [facility] Mean corpuscular hemoglobin (MCH) determinationOrdered By: Alfredo Sr on 05-10-2024 MCH (RBC) [Entitic mass] 30.2 pg 27.0-32.0 [facility] Mean corpuscular hemoglobin concentration (MCHC) determinationOrdered By: Alfredo Sr on 05-10-2024 MCHC (RBC) [Mass/Vol] 29.9 g/dL Low 32-36 [facility] Mean platelet volume determi nationOrdered By: Alfredo Sr on 05-10-2024 Platelet mean volume (Bld) [Entitic vol] 11.0 fL 6.2-12.0 [facility] Monocyte percentageOrdered B y: Alfredo Sr on 05-10-2024 Monocytes/100 WBC (Bld) 9.1 % 0-10 [facility] Neutrophil percentageOrdered By: Alfredo Sr on 05-10-2024 Neutrophils/100 WBC (Bld) 54.9 % 47-70 [facility] Nucleated red blood cell per centageOrdered By: Alfredo Sr on 05-10-2024 Nucleated RBC/100 WBC (Bld) [Ratio] 0 % 0-5 [facility] Platelet countOrdered By: Clay Sr on 05-10-2024 Platelets (Bld) [#/Vol] 161 10*3/uL 150-450 [facility] Potassium measurementOrdered By: Alfredo Sr on 05-10-2024 Potassium [Moles/Vol] 4.5 mmol/L 3.5-5.1 [facility] RBC Auto (Bld) [#/Vol]Ordere d By: Alfredo Sr on 05-10-2024 RBC (Bld) [#/Vol] 2.12 10*6/uL Low 4.2-5.4 [facility] Serum anion gap measurementO rdered By: Alfredo Sr on 05-10-2024 Anion gap [Moles/Vol] 5 mmol/L 5-15 [facility] Serum or plasma calcium hailee urement (mass/volume)Ordered By: Alfredo Sr on 05-10-2024 Calcium [Mass/Vol] 8.3 mg/dL Low 8.5-10.1 [facility] Serum or plasma creatinine m easurement (mass/volume)Ordered By: Alfredo Sr on 05-10-2024 Creatinine [Mass/Vol] 0.54 mg/dL Low 0.55-1.02 [facility] Comment on above: The validity of the calculated GFR & GFRAA in patients over 70 years has not been determined. Clinical correlation is essential. Serum or plasma urea nitroge n measurement (mass/volume)Ordered By: Alfredo Sr on 05-10-2024 Urea nitrogen [Mass/Vol] 16 mg/dL 7-18 [facility] Sodium levelOrdered By: Abundio Sr on 05-10-2024 Sodium [Moles/Vol] 133 mmol/L Low 136-145 [facility] Stool Occult Blood iFOBon STOB Positive Normal [facility] Comment on above: Performed By: #### B , [facility], M118.0998 ####[facility] [address] [place], [address] Type AND Screenon 05-10-2024 ABO and Rh group Nom (Bld) Blood group A Rh(D) positive Normal [facility] Comment on above: Order Comment: CMV N EG? NNumber of units to transfuse: 1Is pt's Hgb is = to 7.0 mg/dl or Hct </= 21%? YReason for Ordering Blood: ChronicAre the blood/blood products to be transfused? YIs the patient having/had surgery? NWhen Peter Performed By: #### B , [facility], M134.1786 ####[facility] [address] [place], [place], [address] White blood cell (WBC) count Ordered By: Alfredo Sr on 05-10-2024 WBC (Bld) [#/Vol] 4.1 10*3/uL Low 4.4-11.0 [facility] OT Functional Capacity Evalo n 05-06-2024 OT Functional Capacity Eval Normal [facility] Lipid 1996 panelon 4 Cholesterol [Mass/Vol] 122 mg/dL Normal <200 [facility] Comment on above: Order Comment: Speci men Type: BLOOD SPECIMENOrdering Facility: [facility] Address: [address] [place] [address] Result Comment: <200 mg/dL, Desirable 200-239 mg/dL, Borderline high >239 mg/dL, High Performed By: #### 2 4331-1 ####[facility] LABCLIA [id number] [place] [address] [place] Cholesterol in HDL [Mass/Vol] 44 mg/dL Normal >39 [facility] Comment on above: Order Comment: Speci men Type: BLOOD SPECIMENOrdering Facility: [facility] Address: [address] [place] [address] Result Comment: 40-5 9 mg/dL, Acceptable >59 mg/dL, High: Negative risk factor for coronary heart disease <40 mg/dL, Low: Positive risk factor for coronary heart disease Performed By: #### 2 4331-1 ####[facility] LABCLIA [id number] [place] [address] [place] Cholesterol in LDL [Mass/Vol] 67 mg/dL Normal <100 [facility] Comment on above: Order Comment: Speci men Type: BLOOD SPECIMENOrdering Facility: [facility] Address: [address] [place] [address] Result Comment: <100 mg/dL, Optimal 100-129 mg/dL, Near optimal/above optimal 130-159 mg/dL, Borderline high 160-189 mg/dL, High >189 mg/dL, Very high Secondary prevention optimal LDL Cholesterol levels are recommended to be < 70 mg/dL Performed By: #### 2 4331-1 ####[facility] LABCLIA [id number] [place] [id number] [place] Cholesterol in LDL/Cholesterol in HDL [Mass ratio] 1.52 {ratio} Normal <2.54 [facility] Comment on above: Order Comment: Bradley castellanos Type: BLOOD SPECIMENOrdering Facility: [facility] Address: [address] [place] [address] Result Comment: Katty magallon: 1. National Cholesterol Education Program ATP III Guideline At-A-Glance Quick Desk Reference: National Heart, Lung, and Blood [place]. National Institutes of Health. 2001: NIH Publication No. 01-3305. 2. An International Atherosclerosis Society position paper: global recommendations for the management of dyslipidemia: executive summary, Atherosclerosis. 2014: 232(2):410-413. Performed By: #### 2 4331-1 ####[facility] LABCLIA [id number] [place] [address] [place] Cholesterol in VLDL [Mass/Vol] 11 mg/dL Normal <30 [facility] Comment on above: Order Comment: Bradley castellanos Type: BLOOD SPECIMENOrdering Facility: [facility] Address: [address] [place] [address] Performed By: #### 2 4331-1 ####[facility] LABCLIA [id number] [place] [address] [place] Cholesterol non HDL [Mass/Vol] 78 mg/dL Normal <130 [facility] Comment on above: Order Comment: Bradley castellanos Type: BLOOD SPECIMENOrdering Facility: [facility] Address: [address] [place] [address] Result Comment: <130 mg/dL, Optimal 130-159 mg/dL, Near optimal/above optimal 160-189 mg/dL, Borderline high 190-219 mg/dL, High >219 mg/dL, Very high Secondary prevention optimal non HDL Cholesterol levels are recommended to be <100 mg/dL Performed By: #### 2 4331-1 ####[facility] [facility] [id number] [place] [address] [place] Cholesterol.total/Chol esterol in HDL [Mass ratio] 2.77 {ratio} Normal <5.10 [facility] Comment on above: Order Comment: Natashai men Type: BLOOD SPECIMENOrdering Facility: [facility] Address: [address] [place] [address] Performed By: #### 2 4331-1 ####[facility] LABCLIA [id number] [place] [address] [place] FASTING TIME 14 hrs Normal [facility] Comment on above: Order Comment: Speci men Type: BLOOD SPECIMENOrdering Facility: [facility] Address: [address] [place] [address] Performed By: #### 2 4331-1 ####[facility]CL[facility] [id number] [place] [address] [place] Triglyceride [Mass/Vol] 55 mg/dL Normal <150 [facility] Comment on above: Order Comment: Speci men Type: BLOOD SPECIMENOrdering Facility: [facility] Address: [address] [place] [address] Result Comment: <150 mg/dL, Normal 150-199 mg/dL, Borderline high 200-499 mg/dL, High >499 mg/dL, Very high Performed By: #### 2 4331-1 ####[facility]CLIA [id number] [address] [place] Kyle 05-01-2024 [facility] Telephone (INTWS) CASSIA HOLLAND ([id number]) 1965 F Date Time Provider Department 05/01/24 OPAL MATHEWS INTWS During your visit today, we recorded the following information about you: Ellis Sykes MA 05/01/2024 1:43 PM Signed Re[facility] [employer] [facility] Budes[employer]ide. Prior Authorization has been completed online at [employer] for Budesonide, will await response. [id number] Please keep encounter open until final decision has been received and documented from insurance company. Ellis Bateman MA, MA 05/05/2024 5:18 PM Signed PA for budesonide is not covered due to no trail/failure of formulary brand. Called patient and she is aware will need [facility] get [facility] alternatives than let office know so providers can see if any covered solutions can be used nasal route Ellis Sykes MA Allergies As of Date: 05/01/2024 Noted Allergy Reaction CANTALOUPE 01/22/2019 18 - Angioedema LEVAQUIN (LEVOFLOXACIN) 04/12/2021 2 - Rash SULFA (SULFONAMIDE ANTIBIOTICS) 01/22/2019 4 - Hives Date Reviewed: 03/28/2024 Reviewed by: Julieta Campuzano MA - Fully Assessed Reason for Visit: Insurance Authorization [[id number]] Cmt: Budesonide Prescriptions as of 05/20/2024 - ferrous sulfate 325 mg (65 mg iron) tablet Take 1 tablet by mouth two times a day with meals. - budesonide (PULMICORT) 1 mg/2 mL nebulizer solution instill contents of 1 vial IN NASAL SALINE WASHES AND USE TWICE DAILY - tiZANidine HCl (ZANAFLEX) 2 mg capsule Take 1 capsule by mouth three times a day as needed. - citalopram (CELEXA) 40 mg tablet Take 1 tablet by mouth once daily. - buPROPion XL (WELLBUTRIN XL) 150 mg 24 hr tablet Take 1 tablet by mouth once daily. - triamcinolone acetonide (KENALOG) 0.1 % cream Apply to affected area two times a day. - carvedilol (COREG) 25 mg tablet Take 12.5 mg by mouth two times a day with meals. Takes 12.5mg BID - nitroglycerin sublingual (NITROSTAT) 0.4 mg SL tablet Dissolve 0.4 mg under the tongue every 5 minutes as needed for chest pain. - losartan (COZAAR) 50 mg tablet Take 1 tablet by mouth once daily. - metFORMIN ER (GLUCOPHAGE XR) 500 mg 24 hr tablet Take 2 tablets by mouth two times a day with meals. - hydrOXYchloroQUINE (PLAQUENIL) 200 mg tablet Take 200 mg by mouth once daily. - isosorbide mononitrate ER (IMDUR) 30 mg 24 hr tablet Take 30 mg by mouth every morning. - lansoprazole (PREVACID) 30 mg capsule take 1 capsule by mouth once daily , 1/2 HOUR BEFORE BREAKFAST - fluticasone (FLONASE) 50 mcg/actuation nasal spray instill 2 sprays into each nostril once daily - benzonatate (TESSALON PERLES) 100 mg capsule Take 2 capsules by mouth three times a day as needed for cough. - montelukast (SINGULAIR) 10 mg tablet take 1 tablet by mouth once daily - apixaban (ELIQUIS) 5 mg tab(s) Take 5 mg by mouth two times a day. - pravastatin sodium (PRAVASTATIN ORAL) Take by mouth. - clopidogrel (PLAVIX) 75 mg tablet take 4 tablets by mouth on day 1 then 1 tablet by mouth once daily after - hydroCHLOROthiazide 25 mg tablet take 1 tablet by mouth once daily - EPINEPHrine (EPIPEN) 0.3 mg/0.3 mL auto-injector Use per directed for severe allergic reaction - lancets (RetSKUUCH DELICA PLUS LANCET) 33 gauge Test blood sugar(s) 1 times daily. Dx: Type 2 DM - Controlled E11.9 Insulin: No - blood sugar diagnostic (tenXerTOUCH ULTRA TEST) test strip use 1 TEST STRIP to TEST BLOOD SUGAR once daily - levalbuterol tartrate HFA (XOPENEX HFA) 45 mcg/actuation inhaler Inhale 1-2 Puffs as instructed every 4 hours as needed. - Blood-Glucose Meter Dispense 1 kit Problem List As Of Date 05/01/2024 Noted Resolved Diabetes (HCC) [E11.9] Hypertension [I10] Other forms of systemic lupus erythematosus (HC* Graves disease [E05.00] Raynaud disease [I73.00] Mixed connective tissue disease (HCC) [M35.1] Interstitial lung disease (HCC) [J84.9] Fibromyalgia [M79.7] Cervicalgia [M54.2] 04/07/2021 Encounter Status:Closed by ELLIS SYKES on 05/20/24 Normal [facility] 12 Lead EKGon 04-27-2024 12 Lead EKG Normal [facility] Absolute neutrophil countOrd ered By: Jian Nazario on 04-27-2024 Neutrophils (Bld) [#/Vol] 2.5 10*3/uL 2.0-7.7 [facility] Albumin to globulin ratioOrd ered By: Jian Nazario on 04-27-2024 Albumin/Globulin [Mass ratio] 0.9 {ratio} 0.9-2.4 [facility] Basophil percentageOrdered B y: Jian Nazario on 04-27-2024 Basophils/100 WBC (Bld) 0.2 % 0-1 [facility] Bilirubin, totalOrdered By: Jian Nazario on 04-27-2024 Bilirubin [Mass/Vol] 0.30 mg/dL 0.20-1.00 [facility] Comment on above: For patients on eltr ombopag therapy, use of Dimension [place] TBIL is not recommended. Blood urea nitrogen (BUN)/cr eatinine ratioOrdered By: Jian Nazario on 04-27-2024 Urea nitrogen/Creatinine [Mass ratio] 39.0 mg/mg High - [facility] Brain/Head without Contrasto n 04-27-2024 Brain/Head without Contrast Normal [facility] CBC W/Diff, Automatedon 04-07 Absolute Lymph 1.13 X10 3/uL Normal 0.83-4.51 [facility] Comment on above: Performed By: #### L 500.4050, L501.9520, L100.0100, L501.4020 ####[facility] [address] [place], [address] Absolute Neut 2.5 X10 3/uL Normal 2.0-7.7 [facility] Comment on above: Performed By: #### L 500.4050, L501.9520, L100.0100, L501.4020 ####[facility] [address] [place], [address] Basophils/100 WBC (Bld) 0.2 % Normal 0-1 [facility] Comment on above: Performed By: #### L 500.4050, L501.9520, L100.0100, L501.4020 ####[facility] [address] [place], [address] Eosinophils/100 WBC (Bld) 3.2 % Normal 0-5 [facility] Comment on above: Performed By: #### L 500.4050, L501.9520, L100.0100, L501.4020 ####[facility] [address] [place], [address] Erythrocyte distribution width (RBC) [Ratio] 14.3 % Normal 11.6-14.6 [facility] Comment on above: Performed By: #### L 500.4050, L501.9520, L100.0100, L501.4020 ####[facility] [address] [place], [address] Hematocrit (Bld) [Volume fraction] 24.6 % Low 37-47 [facility] Comment on above: Performed By: #### L 500.4050, L501.9520, L100.0100, L501.4020 ####[facility] [address] [place], [address] Hemoglobin (Bld) [Mass/Vol] 7.5 g/dL Low 12.0-15.0 [facility] Comment on above: Performed By: #### L 500.4050, L501.9520, L100.0100, L501.4020 ####[facility] [address] [place], [address] IG% 0.500 Normal 0.0-0.9 [facility] Comment on above: Result Comment: IG% - Immature Granulocytes (promyelocytes, myelocytes andmetamyelocytes) > 1% indicates that a LEFT SHIFT is Present. Performed By: #### L 500.4050, L501.9520, L100.0100, L501.4020 ####[facility] [address] [place], [address] Lymphocytes/100 WBC (Bld) 26.0 % Normal 19-41 [facility] Comment on above: Performed By: #### L 500.4050, L501.9520, L100.0100, L501.4020 ####[facility] [address] [place], [address] MCH (RBC) [Entitic mass] 30.1 pg Normal 27.0-32.0 [facility] Comment on above: Performed By: #### L 500.4050, L501.9520, L100.0100, L501.4020 ####[facility] [address] [place], [address] MCHC (RBC) [Mass/Vol] 30.5 g/dL Low 32-36 [facility] Comment on above: Performed By: #### L 500.4050, L501.9520, L100.0100, L501.4020 ####[facility] [address] [place], [address] MCV (RBC) [Entitic vol] 98.8 fL Normal 81-99 [facility] Comment on above: Performed By: #### L 500.4050, L501.9520, L100.0100, L501.4020 ####[facility] [address] [place], [address] Monocytes/100 WBC (Bld) 11.5 % High 0-10 [facility] Comment on above: Performed By: #### L 500.4050, L501.9520, L100.0100, L501.4020 ####[facility] [address] [place], [address] Neutrophils/100 WBC (Bld) 58.6 % Normal 47-70 [facility] Comment on above: Performed By: #### L 500.4050, L501.9520, L100.0100, L501.4020 ####[facility] [address] [place], [address] Nucleated RBC (Bld) [#/Vol] 0 10*3/uL Normal 0-5 [facility] Comment on above: Performed By: #### L 500.4050, L501.9520, L100.0100, L501.4020 ####[facility] [address] [place], [address] Platelet mean volume (Bld) [Entitic vol] 11.7 fL Normal 6.2-12.0 [facility] Comment on above: Performed By: #### L 500.4050, L501.9520, L100.0100, L501.4020 ####[facility] [address] [place], [address] Platelets (Bld) [#/Vol] 164 10*3/uL Normal 150-450 [facility] Comment on above: Performed By: #### L 500.4050, L501.9520, L100.0100, L501.4020 ####[facility] [address] [place], [address] RBC (Bld) [#/Vol] 2.49 10*6/uL Low 4.2-5.4 [facility] Comment on above: Performed By: #### L 500.4050, L501.9520, L100.0100, L501.4020 ####[facility] [address] [place], [address] RDW SD 50.8 fl High 35.1-43.9 [facility] Comment on above: Performed By: #### L 500.4050, L501.9520, L100.0100, L501.4020 ####[facility] [address] [place], [address] WBC (Bld) [#/Vol] 4.3 10*3/uL Low 4.4-11.0 [facility] Comment on above: Performed By: #### L 500.4050, L501.9520, L100.0100, L501.4020 ####[facility] [address] [place], [address] Carbon dioxide measurementOr dered By: Jian Nazario on 04-27-2024 CO2 [Moles/Vol] 26.0 mmol/L 21.0-32.0 [facility] Chest 1 View (Portable)on Chest 1 View (Portable) Normal [facility] Chloride measurementOrdered By: Jian Nazario on 04-27-2024 Chloride [Moles/Vol] 104 mmol/L 98-107 [facility] Comprehensive Metabolic Prof ilon 04-27-2024 Albumin [Mass/Vol] 3.1 g/dL Low 3.2-5.0 [facility] Comment on above: Order Comment: 'TROP ' Serial specimen #1, #2 or #3: 1 Performed By: #### L 500.4050, L501.9520, L100.0100, L501.4020 ####[facility] [address] [place], [address] Albumin/Globulin [Mass ratio] 0.9 {ratio} Normal 0.9-2.4 [facility] Comment on above: Order Comment: 'TROP ' Serial specimen #1, #2 or #3: 1 Performed By: #### L 500.4050, L501.9520, L100.0100, L501.4020 ####[facility] [address] [place], [address] ALK P 84 U/L Normal 45-117 [facility] Comment on above: Order Comment: 'TROP ' Serial specimen #1, #2 or #3: 1 Performed By: #### L 500.4050, L501.9520, L100.0100, L501.4020 ####[facility] [address] [place], [address] ALT [Catalytic activity/Vol] 52 U/L Normal 13-56 [facility] Comment on above: Order Comment: 'TROP ' Serial specimen #1, #2 or #3: 1 Performed By: #### L 500.4050, L501.9520, L100.0100, L501.4020 ####[facility] [address] [place], [address] AST [Catalytic activity/Vol] 39 U/L High 15-37 [facility] Comment on above: Order Comment: 'TROP ' Serial specimen #1, #2 or #3: 1 Performed By: #### L 500.4050, L501.9520, L100.0100, L501.4020 ####[facility] [address] [place], [address] Bilirubin [Mass/Vol] 0.30 mg/dL Normal 0.20-1.00 [facility] Comment on above: Order Comment: 'TROP ' Serial specimen #1, #2 or #3: 1 Result Comment: For patients on eltrombopag therapy, use of Dimension [place] TBIL is not recommended. Performed By: #### L 500.4050, L501.9520, L100.0100, L501.4020 ####[facility] [address] [place], [address] BUN/CRE 39.0 RATIO High 10-20 [facility] Comment on above: Order Comment: 'TROP ' Serial specimen #1, #2 or #3: 1 Performed By: #### L 500.4050, L501.9520, L100.0100, L501.4020 ####[facility] [address] [place], [address] CA,Total 8.4 mg/dL Low 8.5-10.1 [facility] Comment on above: Order Comment: 'TROP ' Serial specimen #1, #2 or #3: 1 Performed By: #### L 500.4050, L501.9520, L100.0100, L501.4020 ####[facility] [address] [place], [address] Chloride [Moles/Vol] 104 mmol/L Normal 98-107 [facility] Comment on above: Order Comment: 'TROP ' Serial specimen #1, #2 or #3: 1 Performed By: #### L 500.4050, L501.9520, L100.0100, L501.4020 ####[facility] [address] [place], [address] CO2 [Moles/Vol] 26.0 mmol/L Normal 21.0-32.0 [facility] Comment on above: Order Comment: 'TROP ' Serial specimen #1, #2 or #3: 1 Performed By: #### L 500.4050, L501.9520, L100.0100, L501.4020 ####[facility] [address] [place], [address] Creatinine [Mass/Vol] 0.54 mg/dL Low 0.55-1.02 [facility] Comment on above: Order Comment: 'TROP ' Serial specimen #1, #2 or #3: 1 Result Comment: The validity of the calculated GFR GFRAA in patients over70 years has not been determined. Clinical correlation isessential. Performed By: #### L 500.4050, L501.9520, L100.0100, L501.4020 ####[facility] [address] [place], [address] ECRCL 118.45 ml/min Normal [facility] Comment on above: Order Comment: 'TROP ' Serial specimen #1, #2 or #3: 1 Performed By: #### L 500.4050, L501.9520, L100.0100, L501.4020 ####[facility] [address] [place], [address] EST GFR - AA 149 mL/min Normal >60 [facility] Comment on above: Order Comment: 'TROP ' Serial specimen #1, #2 or #3: 1 Result Comment: Afri can [place] GFR Calc Performed By: #### L 500.4050, L501.9520, L100.0100, L501.4020 ####[facility] [address] [place], [address] GAP 5 Normal 5-15 [facility] Comment on above: Order Comment: 'TROP ' Serial specimen #1, #2 or #3: 1 Performed By: #### L 500.4050, L501.9520, L100.0100, L501.4020 ####[facility] [address] [place], [address] GFR/1.73 sq M.predicted among non-blacks MDRD (S/P/Bld) [Vol rate/Area] 123 mL/min/{1.73_m2} Normal >60 [facility] Comment on above: Order Comment: 'TROP ' Serial specimen #1, #2 or #3: 1 Result Comment: Non- GFR Calc Performed By: #### L 500.4050, L501.9520, L100.0100, L501.4020 ####[facility] [address] [place], [address] Globulin (S) [Mass/Vol] 3.3 g/dL Normal 2.2-4.2 [facility] Comment on above: Order Comment: 'TROP ' Serial specimen #1, #2 or #3: 1 Performed By: #### L 500.4050, L501.9520, L100.0100, L501.4020 ####[facility] [address] [place], [address] Glucose [Mass/Vol] 117 mg/dL High 74-106 [facility] Comment on above: Order Comment: 'TROP ' Serial specimen #1, #2 or #3: 1 Result Comment: Fast ing Glucose result from 100 to 125 mg/dLsuggests IMPAIRED HOMEOSTASIS per A.D.A. criteria. Performed By: #### L 500.4050, L501.9520, L100.0100, L501.4020 ####[facility] [address] [place], [address] Potassium [Moles/Vol] 4.8 mmol/L Normal 3.5-5.1 [facility] Comment on above: Order Comment: 'TROP ' Serial specimen #1, #2 or #3: 1 Performed By: #### L 500.4050, L501.9520, L100.0100, L501.4020 ####[facility] [address] [place], [address] Sodium [Moles/Vol] 135 mmol/L Low 136-145 [facility] Comment on above: Order Comment: 'TROP ' Serial specimen #1, #2 or #3: 1 Performed By: #### L 500.4050, L501.9520, L100.0100, L501.4020 ####[facility] [address] [place], [address] T PROT 6.4 g/dL Normal 6.4-8.2 [facility] Comment on above: Order Comment: 'TROP ' Serial specimen #1, #2 or #3: 1 Performed By: #### L 500.4050, L501.9520, L100.0100, L501.4020 ####[facility] [address] [place], [address] Urea nitrogen [Mass/Vol] 21 mg/dL High 7-18 [facility] Comment on above: Order Comment: 'TROP ' Serial specimen #1, #2 or #3: 1 Performed By: #### L 500.4050, L501.9520, L100.0100, L501.4020 ####[facility] [address] [place], [address] Emergency Department Summary on 04-27-2024 Emergency Department Summary Normal [facility] Eosinophil percentageOrdered By: Jian Nazario on 04-27-2024 Eosinophils/100 WBC (Bld) 3.2 % 0-5 [facility] Erythrocyte distribution wid th ratioOrdered By: Jian Nazario on 04-27-2024 Erythrocyte distribution width (RBC) [Ratio] 14.3 % 11.6-14.6 [facility] Erythrocyte distribution wid th standard deviationOrdered By: Jian Nazario on 04-27-2024 Erythrocyte distribution width (RBC) [Entitic vol] 50.8 fL High 35.1-43.9 [facility] Estimated glomerular filtrat ion rate (GFR) AmericanOrdered By: Jian Nazario on 04-27-2024 Estimated GFR (MDRD) Amer 149 mL/min >60 [facility] Comment on above: GFR Calc Estimation of creatinine javi aranceOrdered By: Jian Nazario on 04-27-2024 Estimated Creatinine Clearance Calc 118.45 ml/min [facility] Glomerular filtration rate ( GFR) estimationOrdered By: Jian Nazario on 04-27-2024 Estimated GFR (MDRD) Non-Af Amer 123 mL/min >60 [facility] Comment on above: Non- GFR Calc Glucose measurementOrdered B y: Jian Nazario on 04-27-2024 Glucose [Mass/Vol] 117 mg/dL High 74-106 [facility] Comment on above: Fasting Glucose resu lt from 100 to 125 mg/dL suggests IMPAIRED HOMEOSTASIS per A.D.A. criteria. Hematocrit Auto (Bld) [Volum e fraction]Ordered By: Jian Nazario on 04-27-2024 Hematocrit (Bld) [Volume fraction] 24.6 % Low 37-47 [facility] Hemoglobin measurementOrdere d By: Jian Nazario on 04-27-2024 Hemoglobin (Bld) [Mass/Vol] 7.5 g/dL Low 12.0-15.0 [facility] Immature granulocytes/100 WB C Auto (Bld)Ordered By: Jian Nazario on 04-27-2024 Immature granulocytes/100 WBC (Bld) 0.500 % 0.0-0.9 [facility] Comment on above: IG% - Immature Granu locytes (promyelocytes, myelocytes and metamyelocytes) > 1% indicates that a LEFT SHIFT is Present. L501.4020on 04-27-2024 TROPONIN-I HS 3 pg/mL Normal 3.0-54.0 [facility] Comment on above: Order Comment: 'TROP ' Serial specimen #1, #2 or #3: 1 Result Comment: Ralu patino Note: New Test Units and Gender Specific Reference Ranges. For more information see Policy Stat Procedure [facility]ley High Sensitivity Troponin (TNIH) and attachments. Performed By: #### L 500.4050, L501.9520, L100.0100, L501.4020 ####[facility] [address] [place], [place], [id number] Laboratory - Chemistry and C hemistry - challengeOrdered By: Jian Nazario on 04-27-2024 AST [Catalytic activity/Vol] 39 U/L High 15-37 [facility] Lymphocytes Auto (Unsp spec) [#/Vol]Ordered By: Jian Nazario on 04-27-2024 Lymphocytes (Bld) [#/Vol] 1.13 10*3/uL 0.83-4.51 [facility] Lymphocytes/100 WBC Auto (Un sp spec)Ordered By: Jian Nazario on 04-27-2024 Lymphocytes/100 WBC (Bld) 26.0 % 19-41 [facility] MCV (mean corpuscular volume ) determinationOrdered By: Jian Nazario on 04-27-2024 MCV (RBC) [Entitic vol] 98.8 fL 81-99 [facility] Mean corpuscular hemoglobin (MCH) determinationOrdered By: Jian Nazario on 04-27-2024 MCH (RBC) [Entitic mass] 30.1 pg 27.0-32.0 [facility] Mean corpuscular hemoglobin concentration (MCHC) determinationOrdered By: Jian Nazario on 04-27-2024 MCHC (RBC) [Mass/Vol] 30.5 g/dL Low 32-36 [facility] Mean platelet volume determi nationOrdered By: Jian Nazario on 04-27-2024 Platelet mean volume (Bld) [Entitic vol] 11.7 fL 6.2-12.0 [facility] Monocyte percentageOrdered B y: Jian Nazario on 04-27-2024 Monocytes/100 WBC (Bld) 11.5 % High 0-10 [facility] Neutrophil percentageOrdered By: Jian Nazario on 04-27-2024 Neutrophils/100 WBC (Bld) 58.6 % 47-70 [facility] Nucleated red blood cell per centageOrdered By: Jian Nazario on 04-27-2024 Nucleated RBC/100 WBC (Bld) [Ratio] 0 % 0-5 [facility] Platelet countOrdered By: xochitl Nazario on 04-27-2024 Platelets (Bld) [#/Vol] 164 10*3/uL 150-450 [facility] Potassium measurementOrdered By: Jian Nazario on 04-27-2024 Potassium [Moles/Vol] 4.8 mmol/L 3.5-5.1 [facility] RBC Auto (Bld) [#/Vol]Ordere d By: Jian Nazario on 04-27-2024 RBC (Bld) [#/Vol] 2.49 10*6/uL Low 4.2-5.4 [facility] Serum anion gap measurementO rdered By: Jian Nazario on 04-27-2024 Anion gap [Moles/Vol] 5 mmol/L 5-15 [facility] Serum globulin measurementOr dered By: Jian Nazario on 04-27-2024 Globulin (S) [Mass/Vol] 3.3 g/dL 2.2-4.2 [facility] Serum or plasma alanine amaro otransferase (ALT) measurementOrdered By: Jian Nazario on 04-27-2024 ALT [Catalytic activity/Vol] 52 U/L 13-56 [facility] Serum or plasma albumin hailee urement (mass/volume)Ordered By: Jian Nazario on 04-27-2024 Albumin [Mass/Vol] 3.1 g/dL Low 3.2-5.0 [facility] Serum or plasma alkaline caren sphatase measurementOrdered By: Jian Nazario on 04-27-2024 ALP [Catalytic activity/Vol] 84 U/L 45-117 [facility] Serum or plasma calcium hailee urement (mass/volume)Ordered By: Jian Nazario on 04-27-2024 Calcium [Mass/Vol] 8.4 mg/dL Low 8.5-10.1 [facility] Serum or plasma creatinine m easurement (mass/volume)Ordered By: Jian Nazario on 04-27-2024 Creatinine [Mass/Vol] 0.54 mg/dL Low 0.55-1.02 [facility] Comment on above: The validity of the calculated GFR & GFRAA in patients over 70 years has not been determined. Clinical correlation is essential. Serum or plasma urea nitroge n measurement (mass/volume)Ordered By: Jian Nazario on 04-27-2024 Urea nitrogen [Mass/Vol] 21 mg/dL High 7-18 [facility] Sodium levelOrdered By: Pooja Nazario on 04-27-2024 Sodium [Moles/Vol] 135 mmol/L Low 136-145 [facility] TSH QnOrdered By: Sudha on 04-27-2024 Thyroid Stimulating Hormone (TSH) 0.721 uIU/mL 0.358-3.74 0 [facility] Thyroid Stim Hormone (TSH)on 04-27-2024 TSH 0.721 uIU/mL Normal 0.358-3.74 0 [facility] Comment on above: Order Comment: 'TROP ' Serial specimen #1, #2 or #3: 1 Performed By: #### L 500.4050, L501.9520, L100.0100, L501.4020 ####[facility] [address] [place], [place], [address] Total proteinOrdered By: Mindi Nazario on 04-27-2024 Protein [Mass/Vol] 6.4 g/dL 6.4-8.2 [facility] Troponin IOrdered By: Jian Nazario on 04-27-2024 Troponin I High Sensitivity 3 pg/mL 3.0-54.0 [facility] Comment on above: Please Note: New Vani t Units and Gender Specific Reference Ranges. For more information see Policy Stat Procedure [place] High Sensitivity Troponin (TNIH) and attachments. White blood cell (WBC) count Ordered By: Jian Nazario on 04-27-2024 WBC (Bld) [#/Vol] 4.3 10*3/uL Low 4.4-11.0 [facility] Tele[facility]FAMPWS) CASSIA HOLLAND ([id number]) 1965 F Date Time Provider Department 04/16/24 SHAHRIAR BROWN During your visit today, we recorded the following information about you: Shahriar Brown APRN.CNP 04/16/2024 11:12 AM Signed Forms for work reviewed but they are requesting detailed info like how much she can lift. This needs completed by functional capacity testing. Order placed. Thank you Shahriar Brown APRN.Julieta Sequeira MA 04/16/2024 2:14 PM Signed Patient notified, please assist in scheduling. Lissette Newton 04/18/2024 9:13 AM Signed 1st attempt to call patient to schedule test. Myrtle Velasco 04/21/2024 3:10 PM Signed Called patient to schedule test appt only location performing this test is [facility],patient stated that she would check with [facility] if this is something that she could have done there if so she will call back to have us fax order. Marvel Rice RN 04/21/2024 3:25 PM Signed Patient returns call and reports that testing can be completed at [place] and requests order be faxed. Faxed to [phone] per request. BRYAN Guaman Jane, MA 04/24/2024 3:08 PM Signed Faxed. Allergies As of Date: 04/16/2024 Noted Allergy Reaction CANTALOUPE 01/22/2019 18 - Angioedema LEVAQUIN (LEVOFLOXACIN) 04/12/2021 2 - Rash SULFA (SULFONAMIDE ANTIBIOTICS) 01/22/2019 4 - Hives Date Reviewed: 03/28/2024 Reviewed by: Julieta Campuzano MA - Fully Assessed Reason for Visit: Work Forms [Other] Primary Visit Diagnosis:Interstitial lung disease (HCC) [J84.9] Other Visit Diagnoses:Graves disease [E05.00] Type 2 diabetes mellitus without complication, without long-term current use of insulin (HCC) [E11.9] Mixed connective tissue disease (HCC) [M35.1] Other forms of systemic lupus erythematosus, unspecified organ involvement status (HCC) [M32.8] Raynaud's disease without gangrene [I73.00] Paroxysmal atrial fibrillation (HCC) [I48.0] Order(s):PHYSICAL PERFORMANCE TEST [02621WCI] Order #: [id number] Prescriptions as of 04/24/2024 - tiZANidine HCl (ZANAFLEX) 2 mg capsule Take 1 capsule by mouth three times a day as needed. - citalopram (CELEXA) 40 mg tablet Take 1 tablet by mouth once daily. - buPROPion XL (WELLBUTRIN XL) 150 mg 24 hr tablet Take 1 tablet by mouth once daily. - triamcinolone acetonide (KENALOG) 0.1 % cream Apply to affected area two times a day. - carvedilol (COREG) 25 mg tablet Take 12.5 mg by mouth two times a day with meals. Takes 12.5mg BID - nitroglycerin sublingual (NITROSTAT) 0.4 mg SL tablet Dissolve 0.4 mg under the tongue every 5 minutes as needed for chest pain. - losartan (COZAAR) 50 mg tablet Take 1 tablet by mouth once daily. - metFORMIN ER (GLUCOPHAGE XR) 500 mg 24 hr tablet Take 2 tablets by mouth two times a day with meals. - ferrous sulfate 325 mg (65 mg iron) tablet Take 1 tablet by mouth two times a day with meals. - hydrOXYchloroQUINE (PLAQUENIL) 200 mg tablet Take 200 mg by mouth once daily. - isosorbide mononitrate ER (IMDUR) 30 mg 24 hr tablet Take 30 mg by mouth every morning. - lansoprazole (PREVACID) 30 mg capsule take 1 capsule by mouth once daily , 1/2 HOUR BEFORE BREAKFAST - fluticasone (FLONASE) 50 mcg/actuation nasal spray instill 2 sprays into each nostril once daily - budesonide (PULMICORT) 1 mg/2 mL nebulizer solution instill contents of 1 vial IN NASAL SALINE WASHES AND USE TWICE DAILY - benzonatate (TESSALON PERLES) 100 mg capsule Take 2 capsules by mouth three times a day as needed for cough. - montelukast (SINGULAIR) 10 mg tablet take 1 tablet by mouth once daily - apixaban (ELIQUIS) 5 mg tab(s) Take 5 mg by mouth two times a day. - pravastatin sodium (PRAVASTATIN ORAL) Take by mouth. - clopidogrel (PLAVIX) 75 mg tablet take 4 tablets by mouth on day 1 then 1 tablet by mouth once daily after - hydroCHLOROthiazide 25 mg tablet take 1 tablet by mouth once daily - EPINEPHrine (EPIPEN) 0.3 mg/0.3 mL auto-injector Use per directed for severe allergic reaction - lancets (tenXerTOUCH DELICA PLUS LANCET) 33 gauge Test blood sugar(s) 1 times daily. Dx: Type 2 DM - Controlled E11.9 Insulin: No - blood sugar diagnostic (tenXerTOUCH ULTRA TEST) test strip use 1 TEST STRIP to TEST BLOOD SUGAR once daily - levalbuterol tartrate HFA (XOPENEX HFA) 45 mcg/actuation inhaler Inhale 1-2 Puffs as instructed every 4 hours as needed. - Blood-Glucose Meter Dispense 1 kit Problem List As Of Date 04/16/2024 Noted Resolved Diabetes (HCC) [E11.9] Hypertension [I10] Other forms of systemic lupus erythematosus (HC* Graves disease [E05.00] Raynaud disease [I73.00] Mixed connective tissue disease (HCC) [M35.1] Interstitial lung disease (HCC) [J84.9] Fibromyalgia [M79.7] Cervicalgia [M54.2] 04/07/2021 Encounter Status:Closed by MARVEL RICE on 04/21/24 Normal [facility] Cardiology Visit Reporton Cardiology Visit Report Normal [facility] CNOVon 03-28-2024 CNOV Office Visit (INTMWS ) CASSIA HOLLAND ([id number]) 1965 F Date Time Provider Department 03/28/24 1:00 PM SHAHRIAR BROWN During your visit today, we recorded the following information about you: Temperature Pulse Respiration Blood pressure 97.8 degrees 77/minute 16/minute 162/80 Weight 84.4 kg OlderShahriar APRN.[facility] 03/28/2024 1:33 PM Signed CC: Patient presents with: Back Pain: Back pain mid to low back pain HPI Cassia Holland is a 58 year old female who presents today for back pain. Has had lower back pain since her 20s after falling down steps but has been worse for the last few weeks without cause. Pain is now mid to low back and is described as achy. If she lays flat and allows legs to hang over side of bed it relieves the pain. Sitting on the toilet worsens the pain. Not using the bathroom but she thinks it is how she is sitting. Takes tylenol which does help decrease the pain. Pain does not radiate elsewhere outside of being mid to low back. Currently on cefdinir for ongoing sinus infection. Denies any falls, weakness, numbness, saddle anesthesia, loss of bowel/bladder control, difficulty/pain urinating, fever, or abdominal pain. HTN: Blood pressure has been elevated at home as high as the 180s systolic. Has a call with her tin pourer this afternoon to further work on this. Denies chest pain, shortness of breath, edema, or palpitations at this time. Has had a headache but unsure if due to BP or ongoing sinus infection REVIEW OF SYSTEMS See HPI PAST MEDICAL HISTORY Diagnosis Date Diabetes (HCC) adult onset Fibromyalgia Graves disease High blood pressure HSV-2 infection Interstitial lung disease (HCC) Lupus (HCC) Mixed connective tissue disease (HCC) Raynaud disease PAST SURGICAL HISTORY Procedure Laterality Date D AND C HYSTERECTOMY LAPAROSCOPY DIAGNOSTIC PAST SURGICAL HISTORY OF 7 sinus surgeries PAST SURGICAL HISTORY OF bilateral cataract surgeries PT [facility] 12/2022 2 heart stents placed PT ED HEART AND VASCULAR 09/2023 heart ablation TONSILLECTOMY HX ALLERGIES Cantaloupe, Levaquin [Levofloxacin], and Sulfa (Sulfonamide Antibiotics) MEDICATIONS citalopram (CELEXA) 40 mg tablet Take 1 tablet by mouth once daily. buPROPion XL (WELLBUTRIN XL) 150 mg 24 hr tablet Take 1 tablet by mouth once daily. triamcinolone acetonide (KENALOG) 0.1 % cream Apply to affected area two times a day. carvedilol (COREG) 25 mg tablet Take 12.5 mg by mouth two times a day with meals. Takes 12.5mg BID nitroglycerin sublingual (NITROSTAT) 0.4 mg SL tablet Dissolve 0.4 mg under the tongue every 5 minutes as needed for chest pain. losartan (COZAAR) 50 mg tablet Take 1 tablet by mouth once daily. metFORMIN ER (GLUCOPHAGE XR) 500 mg 24 hr tablet Take 2 tablets by mouth two times a day with meals. ferrous sulfate 325 mg (65 mg iron) tablet Take 1 tablet by mouth two times a day with meals. hydrOXYchloroQUINE (PLAQUENIL) 200 mg tablet Take 200 mg by mouth once daily. isosorbide mononitrate ER (IMDUR) 30 mg 24 hr tablet Take 30 mg by mouth every morning. lansoprazole (PREVACID) 30 mg capsule take 1 capsule by mouth once daily , 1/2 HOUR BEFORE BREAKFAST fluticasone (FLONASE) 50 mcg/actuation nasal spray instill 2 sprays into each nostril once daily budesonide (PULMICORT) 1 mg/2 mL nebulizer solution instill contents of 1 vial IN NASAL SALINE WASHES AND USE TWICE DAILY benzonatate (TESSALON PERLES) 100 mg capsule Take 2 capsules by mouth three times a day as needed for cough. montelukast (SINGULAIR) 10 mg tablet take 1 tablet by mouth once daily apixaban (ELIQUIS) 5 mg tab(s) Take 5 mg by mouth two times a day. pravastatin sodium (PRAVASTATIN ORAL) Take by mouth. clopidogrel (PLAVIX) 75 mg tablet take 4 tablets by mouth on day 1 then 1 tablet by mouth once daily after hydroCHLOROthiazide 25 mg tablet take 1 tablet by mouth once daily EPINEPHrine (EPIPEN) 0.3 mg/0.3 mL auto-injector Use [...] as instructed every 4 hours as needed. Blood-Glucose Meter Dispense 1 kit FAMILY HISTORY Problem Relation Age of Onset Heart Mother stents Hypertension Mother other (pacemaker) Mother other (enlarged heart) Mother other (vertigo) Mother Arthritis Mother Prostate Cancer Father other (sjogrens) Sister No Known Problems Maternal Grandmother Heart Attack Maternal Grandfather No Known Problems Paternal Grandmother No Known Problems Paternal Grandfather Social History Tobacco Use Smoking (more content not included)... Normal [facility] UA DIP, URINE (POC)on 2023 BILIRUBIN UA (POCT) Negative Negative [facility] CLARITY UA (POCT) Clear [facility] COLOR UA (POCT) Yellow [facility] GLUCOSE UA (POCT) Negative Negative mg/dL [facility] Hemoglobin Ql (U) Negative Negative [facility] KETONE UA (POCT) Negative Negative mg/dL [facility] LEUKOCYTES UA (POCT) Negative Negative [facility] NITRITE UA (POCT) Negative Negative [facility] PH UA (POCT) 7.0 4.5 - 8.0 [facility] Protein Ql (U) Negative Negative mg/dL [facility] SPECIFIC GRAVITY UA (POCT) 1.020 1.005 - 1.030 [facility] UROBILINOGEN UA (POCT) 0.2 Dee l E.U./dL [facility] Location:[facility], [address] [place] [address], [place], [place], [id number] [place] [address] POINT OF CARE [facility] CBC W Auto Differential pane l (Bld)on 03-21-2024 Basophils (Bld) [#/Vol] 10*3/uL Normal <0.11 [facility] Comment on above: Order Comment: Speci men Type: BLOOD SPECIMENOrdering Facility: [facility] Address: [address] [place] [address] Performed By: #### 5 1107-8 ####[facility] LABCLIA [id number] [place] [address] [place] Basophils/100 WBC (Bld) 0.5 % Normal [facility] Comment on above: Order Comment: Speci men Type: BLOOD SPECIMENOrdering Facility: [facility] Address: [address] [place] [address] Performed By: #### 5 7021-8 ####[facility] LABCLIA [id number] [place] [address] [place] Differential cell count method Nom (Bld) Auto Normal [facility] Comment on above: Order Comment: Speci men Type: BLOOD SPECIMENOrdering Facility: [facility] Address: [address] [place] [address] Performed By: #### 5 7021-8 ####[facility] LABCLIA [id number] [place] [address] [place] Eosinophils (Bld) [#/Vol] 0.07 10*3/uL Normal <0.46 [facility] Comment on above: Order Comment: Speci men Type: BLOOD SPECIMENOrdering Facility: [facility] Address: [address] [place] [address] Performed By: #### 5 7021-8 ####[facility] LABCLIA [id number] [place] [address] [place] Eosinophils/100 WBC (Bld) 1.8 % Normal [facility] Comment on above: Order Comment: Speci men Type: BLOOD SPECIMENOrdering Facility: [facility] Address: [address] [place] [address] Performed By: #### 5 7021-8 ####[facility] LABCLIA [id number] [place] [address] [place] Erythrocyte distribution width (RBC) [Ratio] 13.0 % Normal 11.5-15.0 [facility] Comment on above: Order Comment: Speci men Type: BLOOD SPECIMENOrdering Facility: [facility] Address: [address] [place] [address] Performed By: #### 5 7021-8 ####[facility] LABCLIA [id number] [place] [address] [place] Hematocrit (Bld) [Volume fraction] 31.4 % Low 36.0-46.0 [facility] Comment on above: Order Comment: Speci men Type: BLOOD SPECIMENOrdering Facility: [facility] Address: [address] [place] [address] Performed By: #### 5 7021-8 ####[facility] LABIA [id number] [place] [address] [place] Hemoglobin (Bld) [Mass/Vol] 9.8 g/dL Low 11.5-15.5 [facility] Comment on above: Order Comment: Speci men Type: BLOOD SPECIMENOrdering Facility: [facility] Address: [address] [place] [address] Performed By: #### 5 7021-8 ####[facility] LABIA [id number] [place] [address] [place] Immature granulocytes (Bld) [#/Vol] 10*3/uL Normal <0.10 [facility] Comment on above: Order Comment: Speci men Type: BLOOD SPECIMENOrdering Facility: [facility] Address: [address] [place] [address] Performed By: #### 5 7021-8 ####[facility] LABCLIA [id number] [place] [address] [place] Immature granulocytes/100 WBC (Bld) 0.0 % Normal [facility] Comment on above: Order Comment: Speci men Type: BLOOD SPECIMENOrdering Facility: [facility] Address: [address] [place] [address] Performed By: #### 5 7021-8 ####[facility] LABCLIA [id number] [place] [address] [place] Lymphocytes (Bld) [#/Vol] 1.05 10*3/uL Normal 1.00-4.00 [facility] Comment on above: Order Comment: Speci men Type: BLOOD SPECIMENOrdering Facility: [facility] Address: [address] [place] [address] Performed By: #### 5 7021-8 ####[facility] LABCLIA [id number] [place] [address] [place] Lymphocytes/100 WBC (Bld) 27.1 % Normal [facility] Comment on above: Order Comment: Speci men Type: BLOOD SPECIMENOrdering Facility: [facility] Address: [address] [place] [address] Performed By: #### 5 7021-8 ####[facility] LABIA [id number] [place] [address] [place] MCH (RBC) [Entitic mass] 31.0 pg Normal 26.0-34.0 [facility] Comment on above: Order Comment: Speci men Type: BLOOD SPECIMENOrdering Facility: [facility] Address: [address] [place] [address] Performed By: #### 5 7021-8 ####[facility] LABIA [id number] [place] [address] [place] MCHC (RBC) [Mass/Vol] 31.2 g/dL Normal 30.5-36.0 [facility] Comment on above: Order Comment: Speci men Type: BLOOD SPECIMENOrdering Facility: [facility] Address: [address] [place] [address] Performed By: #### 5 7021-8 ####[facility] LABIA [id number] [place] [address] [place] MCV (RBC) [Entitic vol] 99.4 fL Normal 80.0-100.0 [facility] Comment on above: Order Comment: Speci men Type: BLOOD SPECIMENOrdering Facility: [facility] Address: [address] [place] [address] Performed By: #### 5 7021-8 ####[facility] LABCLIA [id number] [place] [address] [place] Monocytes (Bld) [#/Vol] 0.48 10*3/uL Normal <0.87 [facility] Comment on above: Order Comment: Speci men Type: BLOOD SPECIMENOrdering Facility: [facility] Address: [address] [place] [address] Performed By: #### 5 7021-8 ####[facility] LABCLIA [id number] [place] [address] [place] Monocytes/100 WBC (Bld) 12.4 % Normal [facility] Comment on above: Order Comment: Speci men Type: BLOOD SPECIMENOrdering Facility: [facility] Address: [address] [place] [address] Performed By: #### 5 7021-8 ####[facility] LABCLIA [id number] [place] [address] [place] Neutrophils (Bld) [#/Vol] 2.25 10*3/uL Normal 1.45-7.50 [facility] Comment on above: Order Comment: Speci men Type: BLOOD SPECIMENOrdering Facility: [facility] Address: [address] [place] [address] Performed By: #### 5 7021-8 ####[facility] LABCLIA [id number] [place] [address] [place] Neutrophils/100 WBC (Bld) 58.2 % Normal [facility] Comment on above: Order Comment: Speci men Type: BLOOD SPECIMENOrdering Facility: [facility] Address: [address] [place] [address] Performed By: #### 5 7021-8 ####[facility] LABCLIA [id number] [place] [address] [place] Nucleated RBC (Bld) [#/Vol] 10*3/uL Normal <0.01 [facility] Comment on above: Order Comment: Speci men Type: BLOOD SPECIMENOrdering Facility: [facility] Address: [address] [place] [address] Performed By: #### 5 7021-8 ####[facility] LABCLIA [id number] [place] [address] [place] Nucleated RBC/100 WBC (Bld) [Ratio] 0.0 /100 WBC Normal [facility] Comment on above: Order Comment: Speci men Type: BLOOD SPECIMENOrdering Facility: [facility] Address: [address] [place] [address] Performed By: #### 5 7021-8 ####[facility] LABIA [id number] [place] [address] [place] Platelet mean volume (Bld) [Entitic vol] 11.3 fL Normal 9.0-12.7 [facility] Comment on above: Order Comment: Speci men Type: BLOOD SPECIMENOrdering Facility: [facility] Address: [address] [place] [address] Performed By: #### 5 7021-8 ####[facility] LABIA [id number] [place] [address] [place] Platelets (Bld) [#/Vol] 172 10*3/uL Normal 150-400 [facility] Comment on above: Order Comment: Speci men Type: BLOOD SPECIMENOrdering Facility: [facility] Address: [address] [place] [address] Performed By: #### 5 7021-8 ####[facility] LABCLIA [id number] [place] [address] [place] RBC (Bld) [#/Vol] 3.16 10*6/uL Low 3.90-5.20 [facility] Comment on above: Order Comment: Speci men Type: BLOOD SPECIMENOrdering Facility: [facility] Address: [address] [place] [address] Performed By: #### 5 7021-8 ####[facility] LABCLIA [id number] [place] [address] [place] WBC (Bld) [#/Vol] 3.87 10*3/uL Normal 3.70-11.00 [facility] Comment on above: Order Comment: Speci men Type: BLOOD SPECIMENOrdering Facility: [facility] Address: [address] [place] [address] Performed By: #### 5 7021-8 ####[facility] LABCLIA [id number] [place] [address] [place] Nasopharyngeal Cultureon NAC Normal [facility] Comment on above: Performed By: #### M 100.2500, M100.1999 ####[facility] [address] [place], [place], [address] Gram Stainon 03-14-2024 GS Gram Stain 4+ White Blood Cells No organisms seen Normal [facility] Comment on above: Performed By: #### M 100.2500, M100.1999 ####[facility] [address] [place], [address] ABD Limited w/ Elastographyo n 02-28-2024 ABD Limited w/ Elastography Normal [facility] ANCAon 02-19-2024 Atypical pANCA <1:20 Normal Neg:<1:20 [facility] Comment on above: Order Comment: N Result Comment: The atypical pANCA pattern has been observed in asignificant percentage of patients with ulcerative colitis,primary sclerosing cholangitis and autoimmune hepatitis.Performed at: - [facility] [id number] Director: Jose Castillo PhD, Phone: [phone] at: BN - [facility] [address] [id number] Director: Brigido Mtz MD, Phone: [phone] Performed By: #### L 3100.3425, L506.0400, L100.0100, L501.84335, L3100.5440, L101.9900, L501.9520, L501.6710, L2100.0000, L500.4050, L3200.1100, L504.2610, L3300.1200, L3410.2400, L5500.0550 ####[facility] [address] [facility] [place], [address] Cytoplasmic Ab <1:20 Normal Neg:<1:20 [facility] Comment on above: Order Comment: N Performed By: #### L 3100.3425, L506.0400, L100.0100, L501.97619, L3100.5440, L101.9900, L501.9520, L501.6710, L2100.0000, L500.4050, L3200.1100, L504.2610, L3300.1200, L3410.2400, L5500.0550 ####[facility] [address] [facility]. [place], [place], [id number] Perinuclear Ab. <1:20 Normal Neg:<1:20 [facility] Comment on above: Order Comment: N Result Comment: The presence of positive fluorescence exhibiting P-ANCA orC-ANCA patterns alone is not specific for the diagnosis ofWegener's Granulomatosis (WG) or microscopic polyangiitis.Decisions about treatment should not be based solely onANCA IFA results. The International ANCA Group Consensusrecommends follow up testing of positive sera with both VA-3 and MPO-ANCA enzyme immunoassays. As many as 5% serumsamples are positive only by EIA. Ref. AM J Clin [id number];111:507-513. Performed By: #### L 3100.3425, L506.0400, L100.0100, L501.18242, L3100.5440, L101.9900, L501.9520, L501.6710, L2100.0000, L500.4050, L3200.1100, L504.2610, L3300.1200, L3410.2400, L5500.0550 ####[facility] [address] [place], [address] [facility] CASSIA HO[facility] ([id number]) 1965 F Date Time Provider Department 02/19/24 SHAHRIAR BROWN During your visit today, we recorded the following information about you: Chloé Dhaliwal LPN 02/19/2024 1:42 PM Signed Pt had labs ordered AND drawn by [facility] on 02/14/24 AND wanted to be sure Shahriar looked at them, specifically the HGB which was low at 9.2. Please review in Shahriar's absence. FAHEEM Knapp Chitra, MD 02/19/2024 5:25 PM Signed Lab results are not emergent. Would route to Shahriar as I have not seen the patient recently Regards, Shahriar Lennon MD, APRN.ANTHONY 02/20/2024 8:24 AM Signed She has been varying in 9s to 10s over the past year. If no active bleeding or new/worsening concerns, we can recheck in 2-4 weeks. Thank you Shahriar Brown APRN.Julieta Sequeira MA 02/20/2024 8:46 AM Signed Patient notified. Allergies As of Date: 02/19/2024 Noted Allergy Reaction [place] 01/22/2019 18 - Angioedema LEVAQUIN (LEVOFLOXACIN) 04/12/2021 2 - Rash SULFA (SULFONAMIDE ANTIBIOTICS) 01/22/2019 4 - Hives Date Reviewed: 02/14/2024 Reviewed by: Julieta Campuzano MA - Fully Assessed Reason for Visit: Results [95] Primary Visit Diagnosis:Anemia, unspecified type [D64.9] Order(s):COMPLETE BLOOD COUNT AND DIFFERENTIAL [SQCBCDIF] Order #: [id number] FUTURE Prescriptions as of 02/20/2024 - triamcinolone acetonide (KENALOG) 0.1 % cream Apply to affected area two times a day. - carvedilol (COREG) 25 mg tablet Take 12.5 mg by mouth two times a day with meals. Takes 12.5mg BID - nitroglycerin sublingual (NITROSTAT) 0.4 mg SL tablet Dissolve 0.4 mg under the tongue every 5 minutes as needed for chest pain. - losartan (COZAAR) 50 mg tablet Take 1 tablet by mouth once daily. - metFORMIN ER (GLUCOPHAGE XR) 500 mg 24 hr tablet Take 2 tablets by mouth two times a day with meals. - buPROPion XL (WELLBUTRIN XL) 150 mg 24 hr tablet Take 1 tablet by mouth once daily. - ferrous sulfate 325 mg (65 mg iron) tablet Take 1 tablet by mouth two times a day with meals. - hydrOXYchloroQUINE (PLAQUENIL) 200 mg tablet Take 200 mg by mouth once daily. - citalopram (CELEXA) 40 mg tablet Take 1 tablet by mouth once daily. - isosorbide mononitrate ER (IMDUR) 30 mg 24 hr tablet Take 30 mg by mouth every morning. - lansoprazole (PREVACID) 30 mg capsule take 1 capsule by mouth once daily , 1/2 HOUR BEFORE BREAKFAST - fluticasone (FLONASE) 50 mcg/actuation nasal spray instill 2 sprays into each nostril once daily - budesonide (PULMICORT) 1 mg/2 mL nebulizer solution instill contents of 1 vial IN NASAL SALINE WASHES AND USE TWICE DAILY - benzonatate (TESSALON PERLES) 100 mg capsule Take 2 capsules by mouth three times a day as needed for cough. - montelukast (SINGULAIR) 10 mg tablet take 1 tablet by mouth once daily - apixaban (ELIQUIS) 5 mg tab(s) Take 5 mg by mouth two times a day. - pravastatin sodium (PRAVASTATIN ORAL) Take by mouth. - clopidogrel (PLAVIX) 75 mg tablet take 4 tablets by mouth on day 1 then 1 tablet by mouth once daily after - hydroCHLOROthiazide 25 mg tablet take 1 tablet by mouth once daily - EPINEPHrine (EPIPEN) 0.3 mg/0.3 mL auto-injector Use per directed for severe allergic reaction - lancets (tenXerTOUCH DELICA PLUS LANCET) 33 gauge Test blood sugar(s) 1 times daily. Dx: Type 2 DM - Controlled E11.9 Insulin: No - blood sugar diagnostic (tenXerTOUCH ULTRA TEST) test strip use 1 TEST STRIP to TEST BLOOD SUGAR once daily - levalbuterol tartrate HFA (XOPENEX HFA) 45 mcg/actuation inhaler Inhale 1-2 Puffs as instructed every 4 hours as needed. - Blood-Glucose Meter Dispense 1 kit Problem List As Of Date 02/19/2024 Noted Resolved Diabetes (HCC) [E11.9] Hypertension [I10] Lupus (HCC) [TCS3367] Graves disease [E05.00] Raynaud disease [I73.00] Mixed connective tissue disease (HCC) [M35.1] Interstitial lung disease (HCC) [J84.9] Fibromyalgia [M79.7] Cervicalgia [M54.2] 04/07/2021 Encounter Status:Closed by JULIETA CAMPUZANO on 02/20/24 Normal [facility] Celiac Disease Profileon ENDOMYSIAL IGA Negative Normal Negative [facility] Comment on above: Order Comment: N Performed By: #### L 3100.3425, L506.0400, L100.0100, L501.36030, L3100.5440, L101.9900, L501.9520, L501.6710, L2100.0000, L500.4050, L3200.1100, L504.2610, L3300.1200, L3410.2400, L5500.0550 ####[facility] [address] [place], [place], [phone] tTG IGA <2 Normal 0-3 [facility] Comment on above: Order Comment: N Result Comment: Nega tive 0 - 3 Weak Positive 4 - 10 Positive >10 Tissue Transglutaminase (tTG) has been identified as the endomysial antigen. Studies have demonstr- ated that endomysial IgA antibodies have over 99% specificity for gluten sensitive enteropathy. Performed By: #### L 3100.3425, L506.0400, L100.0100, L501.79893, L3100.5440, L101.9900, L501.9520, L501.6710, L2100.0000, L500.4050, L3200.1100, L504.2610, L3300.1200, L3410.2400, L5500.0550 ####[facility] [address] [place], [place], [phone] TERESE + Protein Elect, Serumon 02-19-2024 Albumin [Mass/Vol] 3.7 g/dL Normal 2.9-4.4 [facility] Comment on above: Order Comment: N Performed By: #### L 3100.3425, L506.0400, L100.0100, L501.38289, L3100.5440, L101.9900, L501.9520, L501.6710, L2100.0000, L500.4050, L3200.1100, L504.2610, L3300.1200, L3410.2400, L5500.0550 ####[facility] [address] [place], [address] Albumin/Globulin [Mass ratio] 1.3 {ratio} Normal 0.7-1.7 [facility] Comment on above: Order Comment: N Performed By: #### L 3100.3425, L506.0400, L100.0100, L501.84147, L3100.5440, L101.9900, L501.9520, L501.6710, L2100.0000, L500.4050, L3200.1100, L504.2610, L3300.1200, L3410.2400, L5500.0550 ####[facility] [address] [place], [address] IXXSF-3-PAZM 0.3 g/dL Normal 0.0-0.4 [facility] Comment on above: Order Comment: N Performed By: #### L 3100.3425, L506.0400, L100.0100, L501.80339, L3100.5440, L101.9900, L501.9520, L501.6710, L2100.0000, L500.4050, L3200.1100, L504.2610, L3300.1200, L3410.2400, L5500.0550 ####[facility] [address] [place], [place], [phone] NYCSZ-1-WEAA 0.5 g/dL Normal 0.4-1.0 [facility] Comment on above: Order Comment: N Performed By: #### L 3100.3425, L506.0400, L100.0100, L501.26923, L3100.5440, L101.9900, L501.9520, L501.6710, L2100.0000, L500.4050, L3200.1100, L504.2610, L3300.1200, L3410.2400, L5500.0550 ####[facility] [address] [facility] [place], [address] BETA GLOBULIN 0.9 g/dL Normal 0.7-1.3 [facility] Comment on above: Order Comment: N Performed By: #### L 3100.3425, L506.0400, L100.0100, L501.12270, L3100.5440, L101.9900, L501.9520, L501.6710, L2100.0000, L500.4050, L3200.1100, L504.2610, L3300.1200, L3410.2400, L5500.0550 ####[facility] [address] [place], [address] GAMMA GLOBULIN 1.3 g/dL Normal 0.4-1.8 [facility] Comment on above: Order Comment: N Performed By: #### L 3100.3425, L506.0400, L100.0100, L501.79370, L3100.5440, L101.9900, L501.9520, L501.6710, L2100.0000, L500.4050, L3200.1100, L504.2610, L3300.1200, L3410.2400, L5500.0550 ####[facility] [address] [place], [place], [phone] Globulin (S) [Mass/Vol] 3.0 g/dL Normal 2.2-3.9 [facility] Comment on above: Order Comment: N Performed By: #### L 3100.3425, L506.0400, L100.0100, L501.15177, L3100.5440, L101.9900, L501.9520, L501.6710, L2100.0000, L500.4050, L3200.1100, L504.2610, L3300.1200, L3410.2400, L5500.0550 ####[facility] [address] [place], [place], [phone] TERESE RESULT,S Comment Normal . [facility] Comment on above: Order Comment: N Result Comment: No m onoclonality detected. Performed By: #### L 3100.3425, L506.0400, L100.0100, L501.43472, L3100.5440, L101.9900, L501.9520, L501.6710, L2100.0000, L500.4050, L3200.1100, L504.2610, L3300.1200, L3410.2400, L5500.0550 ####[facility] [address] [place], [place], [phone] IMMUNOGLOB A QN 162 mg/dL Normal 87-352 [facility] Comment on above: Order Comment: N Performed By: #### L 3100.3425, L506.0400, L100.0100, L501.98431, L3100.5440, L101.9900, L501.9520, L501.6710, L2100.0000, L500.4050, L3200.1100, L504.2610, L3300.1200, L3410.2400, L5500.0550 ####[facility] [address] [place], [address] IMMUNOGLOB G QN 1438 mg/dL Normal 586-1602 [facility] Comment on above: Order Comment: N Performed By: #### L 3100.3425, L506.0400, L100.0100, L501.61767, L3100.5440, L101.9900, L501.9520, L501.6710, L2100.0000, L500.4050, L3200.1100, L504.2610, L3300.1200, L3410.2400, L5500.0550 ####[facility] [address] [place], [address] IMMUNOGLOB M QN 64 mg/dL Normal 26-217 [facility] Comment on above: Order Comment: N Performed By: #### L 3100.3425, L506.0400, L100.0100, L501.97659, L3100.5440, L101.9900, L501.9520, L501.6710, L2100.0000, L500.4050, L3200.1100, L504.2610, L3300.1200, L3410.2400, L5500.0550 ####[facility] [address] [place], [address] M-Parth Not Observed Normal Not Observed [facility] Comment on above: Order Comment: N Performed By: #### L 3100.3425, L506.0400, L100.0100, L501.29526, L3100.5440, L101.9900, L501.9520, L501.6710, L2100.0000, L500.4050, L3200.1100, L504.2610, L3300.1200, L3410.2400, L5500.0550 ####[facility] [address] [place], [address] NOTE: Comment Normal . [facility] Comment on above: Order Comment: N Result Comment: Prot ein electrophoresis scan will follow via computer,mail, or emergency department coordinator delivery. Performed By: #### L 3100.3425, L506.0400, L100.0100, L501.73129, L3100.5440, L101.9900, L501.9520, L501.6710, L2100.0000, L500.4050, L3200.1100, L504.2610, L3300.1200, L3410.2400, L5500.0550 ####[facility] [address] [place], [address] Protein [Mass/Vol] 6.7 g/dL Normal 6.0-8.5 [facility] Comment on above: Order Comment: N Performed By: #### L 3100.3425, L506.0400, L100.0100, L501.56484, L3100.5440, L101.9900, L501.9520, L501.6710, L2100.0000, L500.4050, L3200.1100, L504.2610, L3300.1200, L3410.2400, L5500.0550 ####[facility] [address] [place], [address] Immunoglobulins G/A/M/Mikhail IMMUNOGLOB E QN 5 IU/mL Low 6-495 [facility] Comment on above: Order Comment: N Performed By: #### L 3100.3425, L506.0400, L100.0100, L501.70020, L3100.5440, L101.9900, L501.9520, L501.6710, L2100.0000, L500.4050, L3200.1100, L504.2610, L3300.1200, L3410.2400, L5500.0550 ####[facility] [address] [place], [place], [id number] L2100.0000on 02-19-2024 ACCA 12 units Normal 0-90 [facility] Comment on above: Order Comment: N Result Comment: Nega tive: <80 Equivocal: 80-90 Positive: >90 Performed By: #### L 3100.3425, L506.0400, L100.0100, L501.70015, L3100.5440, L101.9900, L501.9520, L501.6710, L2100.0000, L500.4050, L3200.1100, L504.2610, L3300.1200, L3410.2400, L5500.0550 ####[facility] [address] [place], [place], [phone] ALCA 7 units Normal 0-60 [facility] Comment on above: Order Comment: N Result Comment: Nega tive:<55 Equivocal: 55-60 Positive: >60 Performed By: #### L 3100.3425, L506.0400, L100.0100, L501.15637, L3100.5440, L101.9900, L501.9520, L501.6710, L2100.0000, L500.4050, L3200.1100, L504.2610, L3300.1200, L3410.2400, L5500.0550 ####[facility] [address] [place], [place], [phone] AMCA 30 units Normal 0-100 [facility] Comment on above: Order Comment: N Result Comment: Nega tive: <90 Equivocal: 90-100 Positive: >100 This test was developed and its performance characteristics determined by [employer]. It has not been cleared or approved by the Food and Drug Administration. The FDA has determined that such clearance or approval is not necessary. Performed By: #### L 3100.3425, L506.0400, L100.0100, L501.79943, L3100.5440, L101.9900, L501.9520, L501.6710, L2100.0000, L500.4050, L3200.1100, L504.2610, L3300.1200, L3410.2400, L5500.0550 ####[facility] [address] [place], [place], [phone] Atypical pANCA Negative Normal Negative [facility] Comment on above: Order Comment: N Performed By: #### L 3100.3425, L506.0400, L100.0100, L501.90249, L3100.5440, L101.9900, L501.9520, L501.6710, L2100.0000, L500.4050, L3200.1100, L504.2610, L3300.1200, L3410.2400, L5500.0550 ####[facility] [address] [place], [address] COMMENT Comment Normal . [facility] Comment on above: Order Comment: N Result Comment: Filomena canelo is not suggestive of Inflammatory Bowel Disease Performed By: #### L 3100.3425, L506.0400, L100.0100, L501.57434, L3100.5440, L101.9900, L501.9520, L501.6710, L2100.0000, L500.4050, L3200.1100, L504.2610, L3300.1200, L3410.2400, L5500.0550 ####[facility] [address] [place], [place], [phone] Misa 17 units Normal 0-50 [facility] Comment on above: Order Comment: N Result Comment: Nega tive: <45 Equivocal: 45-50 Positive: >50 Performed By: #### L 3100.3425, L506.0400, L100.0100, L501.89427, L3100.5440, L101.9900, L501.9520, L501.6710, L2100.0000, L500.4050, L3200.1100, L504.2610, L3300.1200, L3410.2400, L5500.6269 ####[facility] [address] [place], [place], [phone] ROSA Comprehensive Panelon ROSA TABLE Comment Normal . [facility] Comment on above: Result Comment: Auto antibody Disease Association -------- Condition Frequency ---------Antinuclear Antibody, SLE, mixed connectiveDirect (ROSA-D) tissue diseases ---------dsDNA SLE 40 - 60% ---------Chromatin Drug induced SLE 90% SLE 48 - 97% ---------SSA (Ro) SLE 25 - 35% Sjogren's Syndrome 40 - 70% Lupus 100% ---------SSB (La) SLE 10% Sjogren's Syndrome 30% ---------Sm (anti-Tee) SLE 15 - 30% ---------PHARMACOLOGY TEACHER Mixed Connective Tissue Disease 95%(U1 nRNP, SLE 30 - 50%anti-ribonucleoprotein) Polymyositis and/or Dermatomyositis 20% ---------Scl-70 (antiDNA Scleroderma (diffuse) 20 - 35%topoisomerase) Crest 13% ---------Celeste-1 Polymyositis and/or Dermatomyositis 20 - 40% ---------Centromere B Scleroderma - Crest variant 80% Performed By: #### L 3100.3425, L506.0400, L100.0100, L501.92052, L3100.5440, L101.9900, L501.9520, L501.6710, L2100.0000, L500.4050, L3200.1100, L504.2610, L3300.1200, L3410.2400, L5500.0550 ####[facility] [address] [place], [address] ANTI-CENT B AB <0.2 Normal 0.0-0.9 [facility] Comment on above: Performed By: #### L 3100.3425, L506.0400, L100.0100, L501.65940, L3100.5440, L101.9900, L501.9520, L501.6710, L2100.0000, L500.4050, L3200.1100, L504.2610, L3300.1200, L3410.2400, L5500.0550 ####[facility] [address] [place], [address] ANTI-DNA (DS)AB 2 IU/mL Normal 0-9 [facility] Comment on above: Result Comment: Nega tive <5 Equivocal 5 - 9 Positive >9 Performed By: #### L 3100.3425, L506.0400, L100.0100, L501.33530, L3100.5440, L101.9900, L501.9520, L501.6710, L2100.0000, L500.4050, L3200.1100, L504.2610, L3300.1200, L3410.2400, L5500.0550 ####[facility] [address] [place], [address] ANTI-CELESTE-1 <0.2 Normal 0.0-0.9 [facility] Comment on above: Performed By: #### L 3100.3425, L506.0400, L100.0100, L501.82415, L3100.5440, L101.9900, L501.9520, L501.6710, L2100.0000, L500.4050, L3200.1100, L504.2610, L3300.1200, L3410.2400, L5500.0550 ####[facility] [address] [place], [address] ANTI-SS-A < 0.2 Normal 0.0-0.9 [facility] Comment on above: Performed By: #### L 3100.3425, L506.0400, L100.0100, L501.61950, L3100.5440, L101.9900, L501.9520, L501.6710, L2100.0000, L500.4050, L3200.1100, L504.2610, L3300.1200, L3410.2400, L5500.0550 ####[facility] [address] [place], [place], [address] ANTI-SS-B < 0.2 Normal 0.0-0.9 [facility] Comment on above: Performed By: #### L 3100.3425, L506.0400, L100.0100, L501.77129, L3100.5440, L101.9900, L501.9520, L501.6710, L2100.0000, L500.4050, L3200.1100, L504.2610, L3300.1200, L3410.2400, L5500.0550 ####[facility] [address] [place], [place], [id number] ANTICHROMATIN 6.2 AI Abnormal 0.0-0.9 [facility] Comment on above: Performed By: #### L 3100.3425, L506.0400, L100.0100, L501.63237, L3100.5440, L101.9900, L501.9520, L501.6710, L2100.0000, L500.4050, L3200.1100, L504.2610, L3300.1200, L3410.2400, L5500.0550 ####[facility] [address] [place], [place], [phone] ANTISCLERODERM <0.2 Normal 0.0-0.9 [facility] Comment on above: Performed By: #### L 3100.3425, L506.0400, L100.0100, L501.08841, L3100.5440, L101.9900, L501.9520, L501.6710, L2100.0000, L500.4050, L3200.1100, L504.2610, L3300.1200, L3410.2400, L5500.0550 ####[facility] [address] [place], [place], [address] PHARMACOLOGY TEACHER Ab 5.8 AI Abnormal 0.0-0.9 [facility] Comment on above: Performed By: #### L 3100.3425, L506.0400, L100.0100, L501.92029, L3100.5440, L101.9900, L501.9520, L501.6710, L2100.0000, L500.4050, L3200.1100, L504.2610, L3300.1200, L3410.2400, L5500.0550 ####[facility] [address] [place], [place], [phone] TEE Ab 0.2 AI Normal 0.0-0.9 [facility] Comment on above: Performed By: #### L 3100.3425, L506.0400, L100.0100, L501.72086, L3100.5440, L101.9900, L501.9520, L501.6710, L2100.0000, L500.4050, L3200.1100, L504.2610, L3300.1200, L3410.2400, L5500.0550 ####[facility] [address] [place], [place], [id number] L5500.0550on 02-17-2024 BEEF <0.10 Normal Class 0 [facility] Comment on above: Performed By: #### L 3100.3425, L506.0400, L100.0100, L501.44931, L3100.5440, L101.9900, L501.9520, L501.6710, L2100.0000, L500.4050, L3200.1100, L504.2610, L3300.1200, L3410.2400, L5500.0550 ####[facility] [address] [place], [address] CHOCOLATE <0.10 Normal Class 0 [facility] Comment on above: Performed By: #### L 3100.3425, L506.0400, L100.0100, L501.59919, L3100.5440, L101.9900, L501.9520, L501.6710, L2100.0000, L500.4050, L3200.1100, L504.2610, L3300.1200, L3410.2400, L5500.0550 ####[facility] [address] [place], [address] CODFISH <0.10 Normal Class 0 [facility] Comment on above: Performed By: #### L 3100.3425, L506.0400, L100.0100, L501.78431, L3100.5440, L101.9900, L501.9520, L501.6710, L2100.0000, L500.4050, L3200.1100, L504.2610, L3300.1200, L3410.2400, L5500.0550 ####[facility] [address] [place], [address] COMMENT Comment Normal . [facility] Comment on above: Result Comment: Jesika thornton of Specific IgE Class Description of Class ----- < 0.10 0 Negative 0.10 - 0.31 0/I Equivocal/Low 0.32 - 0.55 I Low 0.56 - 1.40 II Moderate 1.41 - 3.90 III High 3.91 - 19.00 IV Very High 19.01 - 100.00 V Very High >100.00 Very High Performed By: #### L 3100.3425, L506.0400, L100.0100, L501.96677, L3100.5440, L101.9900, L501.9520, L501.6710, L2100.0000, L500.4050, L3200.1100, L504.2610, L3300.1200, L3410.2400, L5500.0550 ####[facility] [address] [place], [place], [id number] CORN <0.10 Normal Class 0 [facility] Comment on above: Performed By: #### L 3100.3425, L506.0400, L100.0100, L501.51377, L3100.5440, L101.9900, L501.9520, L501.6710, L2100.0000, L500.4050, L3200.1100, L504.2610, L3300.1200, L3410.2400, L5500.0550 ####[facility] [address] [place], [address] EGG, WHOLE <0.10 Normal Class 0 [facility] Comment on above: Result Comment: Perf ormed at: - LabTomvey[facility] [address] [id number] Director: Jose Castillo PhD, Phone: [phone] at: - [facility] [address] [id number] Director: Brigido Mtz MD, Phone: [phone] Performed By: #### L 3100.3425, L506.0400, L100.0100, L501.00125, L3100.5440, L101.9900, L501.9520, L501.6710, L2100.0000, L500.4050, L3200.1100, L504.2610, L3300.1200, L3410.2400, L5500.0550 ####[facility] [address] [place], [address] MILK (COW) <0.10 Normal Class 0 [facility] Comment on above: Performed By: #### L 3100.3425, L506.0400, L100.0100, L501.58591, L3100.5440, L101.9900, L501.9520, L501.6710, L2100.0000, L500.4050, L3200.1100, L504.2610, L3300.1200, L3410.2400, L5500.0550 ####[facility] [address] [facility] [address] [place], [place], [id number] MUSSELS <0.10 Normal Class 0 [facility] Comment on above: Performed By: #### L 3100.3425, L506.0400, L100.0100, L501.40412, L3100.5440, L101.9900, L501.9520, L501.6710, L2100.0000, L500.4050, L3200.1100, L504.2610, L3300.1200, L3410.2400, L5500.0550 ####[facility] [address] [facility] [place], [place], [address] PEANUT <0.10 Normal Class 0 [facility] Comment on above: Performed By: #### L 3100.3425, L506.0400, L100.0100, L501.97472, L3100.5440, L101.9900, L501.9520, L501.6710, L2100.0000, L500.4050, L3200.1100, L504.2610, L3300.1200, L3410.2400, L5500.0550 ####[facility] [address] [facility] [place], [place], [id number] PORK <0.10 Normal Class 0 [facility] Comment on above: Performed By: #### L 3100.3425, L506.0400, L100.0100, L501.87096, L3100.5440, L101.9900, L501.9520, L501.6710, L2100.0000, L500.4050, L3200.1100, L504.2610, L3300.1200, L3410.2400, L5500.0550 ####[facility] [address] [place], [place], [address] SALMON <0.10 Normal Class 0 [facility] Comment on above: Performed By: #### L 3100.3425, L506.0400, L100.0100, L501.23806, L3100.5440, L101.9900, L501.9520, L501.6710, L2100.0000, L500.4050, L3200.1100, L504.2610, L3300.1200, L3410.2400, L5500.0550 ####[facility] [address] [place], [address] SHRIMP <0.10 Normal Class 0 [facility] Comment on above: Performed By: #### L 3100.3425, L506.0400, L100.0100, L501.13263, L3100.5440, L101.9900, L501.9520, L501.6710, L2100.0000, L500.4050, L3200.1100, L504.2610, L3300.1200, L3410.2400, L5500.0550 ####[facility] [address] [place], [address] SOYBEAN <0.10 Normal Class 0 [facility] Comment on above: Performed By: #### L 3100.3425, L506.0400, L100.0100, L501.77345, L3100.5440, L101.9900, L501.9520, L501.6710, L2100.0000, L500.4050, L3200.1100, L504.2610, L3300.1200, L3410.2400, L5500.0550 ####[facility] [address] [place], [address] TUNA <0.10 Normal Class 0 [facility] Comment on above: Performed By: #### L 3100.3425, L506.0400, L100.0100, L501.67661, L3100.5440, L101.9900, L501.9520, L501.6710, L2100.0000, L500.4050, L3200.1100, L504.2610, L3300.1200, L3410.2400, L5500.0550 ####[facility] [address] [place], [address] WHEAT <0.10 Normal Class 0 [facility] Comment on above: Performed By: #### L 3100.3425, L506.0400, L100.0100, L501.83388, L3100.5440, L101.9900, L501.9520, L501.6710, L2100.0000, L500.4050, L3200.1100, L504.2610, L3300.1200, L3410.2400, L5500.0550 ####[facility] [address] [facility] [address] [place], [place], [id number] CBC W Auto Differential pane l (Bld)on 02-14-2024 Basophils (Bld) [#/Vol] 0.00 10*3/uL Normal <0.11 [facility] Comment on above: Order Comment: Speci men Type: URINE SPECIMEN Ordering Facility: [employer],[facility] Address: [address] [place], [place] [address] , [place] [address] Performed By: #### 2 890-2 #### [facility] CLIA [id number] [address] [place] [address] [place] Basophils/100 WBC (Bld) 0.0 % Normal [facility] Comment on above: Order Comment: Speci men Type: URINE SPECIMEN Ordering Facility: [employer],[facility] Address: [address] [place], [place] [address] [address] Performed By: #### 2 890-2 #### [facility] CLIA [id number] [address] [id number] [place] Dacrocytes LM Ql (Bld) Few Normal Cl [facility] Comment on above: Order Comment: Speci men Type: URINE SPECIMEN [facility] Address: [address], [place] [address] Performed By: #### 2 890-2 #### [facility] CLIA [id number] [address] [place] [address] [place] Differential cell count method Nom (Bld) Manual Normal [facility] Comment on above: Order Comment: Speci men Type: URINE SPECIMEN [facility] Address: [address] [place] [address] CARLY MILLER, [place] [address] Performed By: #### 2 890-2 #### [facility] IA [id number] [address] [place] [address] [place] Eosinophils (Bld) [#/Vol] 0.09 10*3/uL Normal <0.46 [facility] Comment on above: Order Comment: Speci men Type: URINE SPECIMEN [facility] Address: [address] [place] [address] CARLY MILLER, [place] [address] Performed By: #### 2 890-2 #### [facility] CLIA [id number] [address] [place] [address] [place] Eosinophils/100 WBC (Bld) 2.0 % Normal [facility] Comment on above: Order Comment: Speci men Type: URINE SPECIMEN [facility] Address: [address]LY [address]ILLER, [place] [address] Performed By: #### 2 890-2 #### [facility] CLIA [id number] [address] [place] [address] [place] Erythrocyte distribution width (RBC) [Ratio] 14.2 % Normal 11.5-15.0 [facility] Comment on above: Order Comment: Speci men Type: URINE SPECIMEN Ordering Facility: [employer] Address: [address] [place]ER, [place] [address] Performed By: #### 2 890-2 #### [facility] CLIA [id number] [address] [address] [place] Hematocrit (Bld) [Volume fraction] 29.2 % Low 36.0-46.0 [facility] Comment on above: Order Comment: Speci men Type: URINE SPECIMEN [facility] Address: [address] [place] [address] [address]LY MILLER, [place] [address] Performed By: #### 2 890-2 #### [facility] CLIA [id number] [address] [place] [id number] [place] Hemoglobin (Bld) [Mass/Vol] 9.2 g/dL Low 11.5-15.5 [facility] Comment on above: Order Comment: Speci men Type: URINE SPECIMEN [facility] Address: [address] [place] [address] [address] MILLER, [place] [address] Performed By: #### 2 890-2 #### [facility] CLIA [id number] [address] [place] [address] [place] Lymphocytes (Bld) [#/Vol] 1.44 10*3/uL Normal 1.00-4.00 [facility] Comment on above: Order Comment: Speci men Type: URINE SPECIMEN [facility] Address: [address] [place] [address] CARLY MILLER, [place] [address] Performed By: #### 2 890-2 #### [facility] CLIA [id number] [address] [place] [id number] [place] Lymphocytes/100 WBC (Bld) 33.0 % Normal [facility] Comment on above: Order Comment: Speci men Type: URINE SPECIMEN [facility] Address: [address] [place] [address] [address]LY MILLER, [place] [address] Performed By: #### 2 890-2 #### [facility] CLIA [id number] [address] [place] [address] [place] MCH (RBC) [Entitic mass] 31.9 pg Normal 26.0-34.0 [facility] Comment on above: Order Comment: Speci men Type: URINE SPECIMEN [facility] Address: [address] [place] [address] Performed By: #### 2 890-2 #### [facility] CLIA [id number] [address] [place] [address] [place] MCHC (RBC) [Mass/Vol] 31.5 g/dL Normal 30.5-36.0 [facility] Comment on above: Order Comment: Speci men Type: URINE SPECIMEN [facility] Address: [address] [place] [address] Performed By: #### 2 890-2 #### [facility] CLIA [id number] [address] [place] [address] [place] MCV (RBC) [Entitic vol] 101.4 fL High 80.0-100.0 [facility] Comment on above: Order Comment: Speci men Type: URINE SPECIMEN [facility] Address: [address] [place] [address] Performed By: #### 2 890-2 #### [facility] CLIA [id number] [address] [place] [address] [place] Monocytes (Bld) [#/Vol] 0.17 10*3/uL Normal <0.87 [facility] Comment on above: Order Comment: Speci men Type: URINE SPECIMEN [facility] Address: [address] [place] [address] Performed By: #### 2 890-2 #### [facility] CLIA [id number] [address] [place] [address] [place] Monocytes/100 WBC (Bld) 4.0 % Normal [facility] Comment on above: Order Comment: Speci men Type: URINE SPECIMEN Ordering Facility: [employer] Address: [address] [place] [address] [address] [place] [address] Performed By: #### 2 890-2 #### [facility] CLIA [id number] [address] [address] [place] Neutrophils (Bld) [#/Vol] 2.65 10*3/uL Normal 1.45-7.50 [facility] Comment on above: Order Comment: Speci men Type: URINE SPECIMEN [facility] Address: [address] [place], [place] [address]MARIA GUADALUPE MILLER, [place] [address] Performed By: #### 2 890-2 #### [facility] CLIA [id number] [address] [place] [address] [place] Neutrophils/100 WBC (Bld) 61.0 % Normal [facility] Comment on above: Order Comment: Speci men Type: URINE SPECIMEN [facility] Address: [address] [place], [place] [address] [place] [address] Performed By: #### 2 890-2 #### [facility] CLIA [id number] [address] [place] [address] [place] Nucleated RBC (Bld) [#/Vol] 10*3/uL Normal <0.01 [facility] Comment on above: Order Comment: Speci men Type: URINE SPECIMEN Ordering Facility: [employer] Address: [address] [place] [address] [address] GUADALUPE MILLER, [place] [address] Performed By: #### 2 890-2 #### [facility] CLIA [id number] [address] [place] [address] [place] Nucleated RBC/100 WBC (Bld) [Ratio] 0.0 /100 WBC Normal [facility] Comment on above: Order Comment: Speci men Type: URINE SPECIMEN [facility] Address: [address] [place] [address] [address]IN[address] GUADALUPE MILLER, [place] [address] Performed By: #### 2 890-2 #### [facility] CLIA [id number] [address] [address] [place] Ovalocytes LM Ql (Bld) Few Normal [facility] Comment on above: Order Comment: Speci men Type: URINE SPECIMEN [facility] Address: [address] [place] [address] [address]INAM[address] GUADALUPE MILLER, [place] [address] Performed By: #### 2 890-2 #### [facility] CLIA [id number] [address] [place] [id number] [place] Platelet mean volume (Bld) [Entitic vol] 11.7 fL Normal 9.0-12.7 [facility] Comment on above: Order Comment: Speci men Type: URINE SPECIMEN [facility] Address: [address] [place] [address] [address] GUADALUPE MILLER, [place] [address] Performed By: #### 2 890-2 #### [facility] CLIA [id number] [address] [place] [id number] [place] Platelets (Bld) [#/Vol] 172 10*3/uL Normal 150-400 [facility] Comment on above: Order Comment: Speci men Type: URINE SPECIMEN [facility] Address: [address] [place] [address] [address] GUADALUPE MILLER, [place] [address] Performed By: #### 2 890-2 #### [facility] CLIA [id number] [address] [address] [place] Platelets Estimate (Bld) [#/Vol] Adequate Normal [facility] Comment on above: Order Comment: Speci men Type: URINE SPECIMEN [facility] Address: [address] [facility] ADINAMARIA GUADALUPE MILLER, [place] [address] Performed By: #### 2 890-2 #### [facility] CLIA [id number] [address] [place] [address] [place] Polychromasia LM Ql (Bld) Slight Normal [facility] Comment on above: Order Comment: Speci men Type: URINE SPECIMEN Ordering Facility: [employer] Address: [address] [place] [address] [address]AM[address] GUADALUPE MILLER, [place] [address] Performed By: #### 2 890-2 #### [facility] CLIA [id number] [address] [place] [address] [place] RBC (Bld) [#/Vol] 2.88 10*6/uL Low 3.90-5.20 [facility] Comment on above: Order Comment: Speci men Type: URINE SPECIMEN Ordering Facility: [employer] Address: [address] [place] [address] [address]INAM[address] GUADALUPE MILLER, [place] [address] Performed By: #### 2 890-2 #### [facility] CLIA [id number] [address] [place] [address] [place] RBC FRAGMENTS Few Abnormal None Seen [facility] Comment on above: Order Comment: Speci men Type: URINE SPECIMEN [facility] Address: [address] [place] [address] [address]INAM[address] GUADALUPE MILLER, [place] [address] Performed By: #### 2 890-2 #### [facility] CLIA [id number] [address] [place] [address] [place] RED CELL MORPH Reviewed: see result s of individual morphologies Normal [facility] Comment on above: Order Comment: Speci men Type: URINE SPECIMEN Ordering Facility: [employer] Address: [address] [place], [place] [address]MARIA GUADALUPE , [place] [address] Performed By: #### 2 890-2 #### [facility] CLIA [id number] [address] [place] [address] [place] WBC (Bld) [#/Vol] 4.35 10*3/uL Normal 3.70-11.00 [facility] Comment on above: Order Comment: Speci men Type: URINE SPECIMEN Ordering Facility: [facility] Address: [address] GUADALUPE MILLER, [place] [address] Performed By: #### 2 890-2 #### [facility] CLIA [id number] [address] [place], [place] [address] [place] CNOVon 02-14-2024 CNOV Office Visit (INTMWS ) CASSIA HOLLAND ([id number]) 1965 F Date Time Provider Department 02/14/24 2:20 PM SHAHRIAR BROWN During your visit today, we recorded the following information about you: Pulse Respiration Blood pressure Weight 88/minute 16/minute 112/68 83.5 kg Shahriar Brown APRN.[employer]PER[employer]OR 02/14/2024 3:17 PM Signed CC: Patient presents with: Recheck: Follow up fatigue HPI Cassia Holland is a 58 year old female who presents today for follow up on chronic worsening fatigue. Blood work unremarkable. Working with rheumatology to improve Lupus. Started using her cpap nightly since last visit. Antihypertensives changed by cardiology due to low blood pressure and started on wellbutrin 6 weeks ago. Still with no improvement in fatigue. HTN and A-fib: Ms. Holland indicates that she is feeling well and denies any symptoms referable to elevated blood pressure. Specifically denies headache, chest pain, palpitations, change in chronic dyspnea, and peripheral edema. Patient denies any side effects of her medication(s) and is compliant with their regimen. She does check BP's away from this office with average BP's in the 90s-120s/40s-50s range. When blood pressure is low she is dizzy and lightheaded which has caused her to have to miss work. Last 3 Encounter BP Readings: Date: BP: 02/14/2024 112/68 01/21/2024 120/76 01/17/2024 132/80 Has tolerated wellbutrin since starting but has not noticed a difference in motivation or depression. Sleep: is described as normal Alcohol use: does not drink any alcohol Drug use: No Appetite: good Suicidal Thoughts: No suicidal ideation, intent or plan REVIEW OF SYSTEMS See HPI PAST MEDICAL HISTORY Diagnosis Date Diabetes (HCC) adult onset Fibromyalgia Graves disease High blood pressure HSV-2 infection Interstitial lung disease (HCC) Lupus (HCC) Mixed connective tissue disease (HCC) Raynaud disease PAST SURGICAL HISTORY Procedure Laterality Date D AND C HYSTERECTOMY LAPAROSCOPY DIAGNOSTIC PAST SURGICAL HISTORY OF 7 sinus surgeries PAST SURGICAL HISTORY OF bilateral cataract surgeries PT [facility]ASCULAR 12/2022 2 heart stents placed PT ED HEART AND VASCULAR 09/2023 heart ablation TONSILLECTOMY HX ALLERGIES Cantaloupe, Levaquin [Levofloxacin], and Sulfa (Sulfonamide Antibiotics) MEDICATIONS carvedilol (COREG) 25 mg tablet Take 12.5 mg by mouth two times a day with meals. Takes 12.5mg BID losartan (COZAAR) 50 mg tablet Take 1 tablet by mouth once daily. citalopram (CELEXA) 40 mg tablet Take 1 tablet by mouth once daily. isosorbide mononitrate ER (IMDUR) 30 mg 24 hr tablet Take 30 mg by mouth every morning. apixaban (ELIQUIS) 5 mg tab(s) Take 5 mg by mouth two times a day. pravastatin sodium (PRAVASTATIN ORAL) Take by mouth. clopidogrel (PLAVIX) 75 mg tablet take 4 tablets by mouth on day 1 then 1 tablet by mouth once daily after hydroCHLOROthiazide 25 mg tablet take 1 tablet by mouth once daily triamcinolone acetonide (KENALOG) 0.1 % cream Apply to affected area two times a day. nitroglycerin sublingual (NITROSTAT) 0.4 mg SL tablet Dissolve 0.4 mg under the tongue every 5 minutes as needed for chest pain. metFORMIN ER (GLUCOPHAGE XR) 500 mg 24 hr tablet Take 2 tablets by mouth two times a day with meals. buPROPion XL (WELLBUTRIN XL) 150 mg 24 hr tablet Take 1 tablet by mouth once daily. ferrous sulfate 325 mg (65 mg iron) tablet Take 1 tablet by mouth two times a day with meals. hydrOXYchloroQUINE (PLAQUENIL) 200 mg tablet Take 200 mg by mouth once daily. lansoprazole (PREVACID) 30 mg capsule take 1 capsule by mouth once daily , 1/2 HOUR BEFORE BREAKFAST fluticasone (FLONASE) 50 mcg/actuation nasal spray instill 2 sprays into each nostril once daily budesonide (PULMICORT) 1 mg/2 mL nebulizer solution instill contents of 1 vial IN NASAL SALINE WASHES AND USE TWICE DAILY benzonatate (TESSALON PERLES) 100 mg capsule Take 2 capsules by mouth three times a day as needed for cough. montelukast (SINGULAIR) 10 mg tablet take 1 tablet by mouth once daily EPINEPHrine (EPIPEN) 0.3 mg/0.3 mL auto-injector Use per directed for severe allergic reaction lancets (tenXerTOUCH DELICA PLUS LANCET) 33 gauge Test blood sugar(s) 1 times daily. Dx: Type 2 DM - Controlled E11.9 Insulin: No blood sugar diagnostic (tenXerTOUCH ULTRA TEST) test strip use 1 TEST STRIP to TEST BLOOD SUGAR once daily levalbuterol tartrate HFA (XOPENEX HFA) 45 mcg/actuation inhaler Inhale 1-2 Puffs as instructed every 4 hours as needed. Blood-Glucose Meter Dispense 1 kit FAMILY HISTORY Problem Relation Age of Onset Heart Mother stents Hypertension Mother other (pacemaker) Mother other (enlarged heart) Mother other (vertigo) Mother Arthritis Mother Prostate Cancer Father other (sjogrens) Sister No Known Problems Maternal Grandmoth (more content not included)... Normal [facility] CBC W/Diff, Automatedon 10-0 Absolute Lymph 0.78 X10 3/uL Low 0.83-4.51 [facility] Comment on above: Performed By: #### L 3100.3425, L506.0400, L100.0100, L501.60709, L3100.5440, L101.9900, L501.9520, L501.6710, L2100.0000, L500.4050, L3200.1100, L504.2610, L3300.1200, L3410.2400, L5500.0550 ####[facility] [address] [place], [address] Absolute Neut 1.8 X10 3/uL Low 2.0-7.7 [facility] Comment on above: Performed By: #### L 3100.3425, L506.0400, L100.0100, L501.03911, L3100.5440, L101.9900, L501.9520, L501.6710, L2100.0000, L500.4050, L3200.1100, L504.2610, L3300.1200, L3410.2400, L5500.0550 ####[facility] [address] [place], [place], [phone] Basophils/100 WBC (Bld) 0.3 % Normal 0-1 [facility] Comment on above: Performed By: #### L 3100.3425, L506.0400, L100.0100, L501.99874, L3100.5440, L101.9900, L501.9520, L501.6710, L2100.0000, L500.4050, L3200.1100, L504.2610, L3300.1200, L3410.2400, L5500.0550 ####[facility] [address] [place], [place], [phone] Eosinophils/100 WBC (Bld) 1.9 % Normal 0-5 [facility] Comment on above: Performed By: #### L 3100.3425, L506.0400, L100.0100, L501.86230, L3100.5440, L101.9900, L501.9520, L501.6710, L2100.0000, L500.4050, L3200.1100, L504.2610, L3300.1200, L3410.2400, L5500.0550 ####[facility] [address] [place], [place], [phone]) Erythrocyte distribution width (RBC) [Ratio] 14.6 % Normal 11.6-14.6 [facility] Comment on above: Performed By: #### L 3100.3425, L506.0400, L100.0100, L501.48169, L3100.5440, L101.9900, L501.9520, L501.6710, L2100.0000, L500.4050, L3200.1100, L504.2610, L3300.1200, L3410.2400, L5500.0550 ####[facility] [address] [place], [place], [phone]) Hematocrit (Bld) [Volume fraction] 30.9 % Low 37-47 [facility] Comment on above: Performed By: #### L 3100.3425, L506.0400, L100.0100, L501.39338, L3100.5440, L101.9900, L501.9520, L501.6710, L2100.0000, L500.4050, L3200.1100, L504.2610, L3300.1200, L3410.2400, L5500.0550 ####[facility] [address] [facility]. [place], [place], [phone]) Hemoglobin (Bld) [Mass/Vol] 9.8 g/dL Low 12.0-15.0 [facility] Comment on above: Performed By: #### L 3100.3425, L506.0400, L100.0100, L501.76407, L3100.5440, L101.9900, L501.9520, L501.6710, L2100.0000, L500.4050, L3200.1100, L504.2610, L3300.1200, L3410.2400, L5500.0550 ####[facility] [address] [facility]. [place], [place], [phone]) IG% 0.300 Normal 0.0-0.9 [facility] Comment on above: Result Comment: IG% - Immature Granulocytes (promyelocytes, myelocytes andmetamyelocytes) > 1% indicates that a LEFT SHIFT is Present. Performed By: #### L 3100.3425, L506.0400, L100.0100, L501.06144, L3100.5440, L101.9900, L501.9520, L501.6710, L2100.0000, L500.4050, L3200.1100, L504.2610, L3300.1200, L3410.2400, L5500.0550 ####[facility] [address] [facility] [place], [address] Lymphocytes/100 WBC (Bld) 25.3 % Normal 19-41 [facility] Comment on above: Performed By: #### L 3100.3425, L506.0400, L100.0100, L501.10965, L3100.5440, L101.9900, L501.9520, L501.6710, L2100.0000, L500.4050, L3200.1100, L504.2610, L3300.1200, L3410.2400, L5500.0550 ####[facility] [address] [facility] [place], [address] MCH (RBC) [Entitic mass] 31.9 pg Normal 27.0-32.0 [facility] Comment on above: Performed By: #### L 3100.3425, L506.0400, L100.0100, L501.65084, L3100.5440, L101.9900, L501.9520, L501.6710, L2100.0000, L500.4050, L3200.1100, L504.2610, L3300.1200, L3410.2400, L5500.0550 ####[facility] [address] [facility] [place], [address] MCHC (RBC) [Mass/Vol] 31.7 g/dL Low 32-36 [facility] Comment on above: Performed By: #### L 3100.3425, L506.0400, L100.0100, L501.15825, L3100.5440, L101.9900, L501.9520, L501.6710, L2100.0000, L500.4050, L3200.1100, L504.2610, L3300.1200, L3410.2400, L5500.0550 ####[facility] [address] [place], [address] MCV (RBC) [Entitic vol] 100.7 fL High 81-99 [facility] Comment on above: Performed By: #### L 3100.3425, L506.0400, L100.0100, L501.63607, L3100.5440, L101.9900, L501.9520, L501.6710, L2100.0000, L500.4050, L3200.1100, L504.2610, L3300.1200, L3410.2400, L5500.0550 ####[facility] [address] [place], [address] Monocytes/100 WBC (Bld) 12.3 % High 0-10 [facility] Comment on above: Performed By: #### L 3100.3425, L506.0400, L100.0100, L501.39275, L3100.5440, L101.9900, L501.9520, L501.6710, L2100.0000, L500.4050, L3200.1100, L504.2610, L3300.1200, L3410.2400, L5500.0550 ####[facility] [address] [place], [address] Neutrophils/100 WBC (Bld) 59.9 % Normal 47-70 [facility] Comment on above: Performed By: #### L 3100.3425, L506.0400, L100.0100, L501.41004, L3100.5440, L101.9900, L501.9520, L501.6710, L2100.0000, L500.4050, L3200.1100, L504.2610, L3300.1200, L3410.2400, L5500.0550 ####[facility] [address] [place], [address] Nucleated RBC (Bld) [#/Vol] 0 10*3/uL Normal 0-5 [facility] Comment on above: Performed By: #### L 3100.3425, L506.0400, L100.0100, L501.45934, L3100.5440, L101.9900, L501.9520, L501.6710, L2100.0000, L500.4050, L3200.1100, L504.2610, L3300.1200, L3410.2400, L5500.0550 ####[facility] [address] [place], [address] Platelet mean volume (Bld) [Entitic vol] 11.2 fL Normal 6.2-12.0 [facility] Comment on above: Performed By: #### L 3100.3425, L506.0400, L100.0100, L501.76211, L3100.5440, L101.9900, L501.9520, L501.6710, L2100.0000, L500.4050, L3200.1100, L504.2610, L3300.1200, L3410.2400, L5500.0550 ####[facility] [address] [place], [address] Platelets (Bld) [#/Vol] 168 10*3/uL Normal 150-450 [facility] Comment on above: Performed By: #### L 3100.3425, L506.0400, L100.0100, L501.11534, L3100.5440, L101.9900, L501.9520, L501.6710, L2100.0000, L500.4050, L3200.1100, L504.2610, L3300.1200, L3410.2400, L5500.0550 ####[facility] [address] [place], [address] RBC (Bld) [#/Vol] 3.07 10*6/uL Low 4.2-5.4 [facility] Comment on above: Performed By: #### L 3100.3425, L506.0400, L100.0100, L501.41190, L3100.5440, L101.9900, L501.9520, L501.6710, L2100.0000, L500.4050, L3200.1100, L504.2610, L3300.1200, L3410.2400, L5500.0550 ####[facility] [address] [place], [place], [phone] RDW SD 54.6 fl High 35.1-43.9 [facility] Comment on above: Performed By: #### L 3100.3425, L506.0400, L100.0100, L501.30558, L3100.5440, L101.9900, L501.9520, L501.6710, L2100.0000, L500.4050, L3200.1100, L504.2610, L3300.1200, L3410.2400, L5500.0550 ####[facility] [address] [place], [place], [id number] WBC (Bld) [#/Vol] 3.1 10*3/uL Low 4.4-11.0 [facility] Comment on above: Performed By: #### L 3100.3425, L506.0400, L100.0100, L501.05131, L3100.5440, L101.9900, L501.9520, L501.6710, L2100.0000, L500.4050, L3200.1100, L504.2610, L3300.1200, L3410.2400, L5500.0550 ####[facility] [address] [place], [place], [phone] CRPon 02-13-2024 C-REACTIVE PROT 3.95 mg/L High 0.0-3.0 [facility] Comment on above: Order Comment: 1 Result Comment: C-Re active Protein (CRP) provides useful information for thediagnosis, therapy and monitoring of inflammatory processesand associated diseases. For the evaluation of Relative Riskfor Cardiovascular Disease, a High Sensitivity CRP (HSCRP)should be ordered. Performed By: #### L 3100.3425, L506.0400, L100.0100, L501.22713, L3100.5440, L101.9900, L501.9520, L501.6710, L2100.0000, L500.4050, L3200.1100, L504.2610, L3300.1200, L3410.2400, L5500.0550 ####[facility] [address] [place], [address] Comprehensive Metabolic Prof oron 02-13-2024 Albumin [Mass/Vol] 3.6 g/dL Normal 3.2-5.0 [facility] Comment on above: Order Comment: 1 Performed By: #### L 3100.3425, L506.0400, L100.0100, L501.68946, L3100.5440, L101.9900, L501.9520, L501.6710, L2100.0000, L500.4050, L3200.1100, L504.2610, L3300.1200, L3410.2400, L5500.0550 ####[facility] [address] [place], [place], [phone] Albumin/Globulin [Mass ratio] 0.9 {ratio} Normal 0.9-2.4 [facility] Comment on above: Order Comment: 1 Performed By: #### L 3100.3425, L506.0400, L100.0100, L501.87571, L3100.5440, L101.9900, L501.9520, L501.6710, L2100.0000, L500.4050, L3200.1100, L504.2610, L3300.1200, L3410.2400, L5500.0550 ####[facility] [address] [place], [address] ALK P 91 U/L Normal 45-117 [facility] Comment on above: Order Comment: 1 Performed By: #### L 3100.3425, L506.0400, L100.0100, L501.74800, L3100.5440, L101.9900, L501.9520, L501.6710, L2100.0000, L500.4050, L3200.1100, L504.2610, L3300.1200, L3410.2400, L5500.0550 ####[facility] [address] [place], [place], [phone] ALT [Catalytic activity/Vol] 53 U/L Normal 13-56 [facility] Comment on above: Order Comment: 1 Performed By: #### L 3100.3425, L506.0400, L100.0100, L501.61086, L3100.5440, L101.9900, L501.9520, L501.6710, L2100.0000, L500.4050, L3200.1100, L504.2610, L3300.1200, L3410.2400, L5500.0550 ####[facility] [address] [place], [address] AST [Catalytic activity/Vol] 48 U/L High 15-37 [facility] Comment on above: Order Comment: 1 Performed By: #### L 3100.3425, L506.0400, L100.0100, L501.66750, L3100.5440, L101.9900, L501.9520, L501.6710, L2100.0000, L500.4050, L3200.1100, L504.2610, L3300.1200, L3410.2400, L5500.0550 ####[facility] [address] [place], [address] Bilirubin [Mass/Vol] 0.50 mg/dL Normal 0.20-1.00 [facility] Comment on above: Order Comment: 1 Result Comment: For patients on eltrombopag therapy, use of Dimension Hadley TBIL is not recommended. Performed By: #### L 3100.3425, L506.0400, L100.0100, L501.82273, L3100.5440, L101.9900, L501.9520, L501.6710, L2100.0000, L500.4050, L3200.1100, L504.2610, L3300.1200, L3410.2400, L5500.0550 ####[facility] [address] [place], [place], [phone](323) BUN/CRE 20.8 RATIO High 10-20 [facility] Comment on above: Order Comment: 1 Performed By: #### L 3100.3425, L506.0400, L100.0100, L501.45243, L3100.5440, L101.9900, L501.9520, L501.6710, L2100.0000, L500.4050, L3200.1100, L504.2610, L3300.1200, L3410.2400, L5500.0550 ####[facility] [address] [place], [place], [phone](625) CA,Total 9.8 mg/dL Normal 8.5-10.1 [facility] Comment on above: Order Comment: 1 Performed By: #### L 3100.3425, L506.0400, L100.0100, L501.71077, L3100.5440, L101.9900, L501.9520, L501.6710, L2100.0000, L500.4050, L3200.1100, L504.2610, L3300.1200, L3410.2400, L5500.0550 ####[facility] [address] [place], [place], [phone](324) Chloride [Moles/Vol] 105 mmol/L Normal 98-107 [facility] Comment on above: Order Comment: 1 Performed By: #### L 3100.3425, L506.0400, L100.0100, L501.42608, L3100.5440, L101.9900, L501.9520, L501.6710, L2100.0000, L500.4050, L3200.1100, L504.2610, L3300.1200, L3410.2400, L5500.0550 ####[facility] [address] [place], [place], [phone](572) CO2 [Moles/Vol] 22.0 mmol/L Normal 21.0-32.0 [facility] Comment on above: Order Comment: 1 Performed By: #### L 3100.3425, L506.0400, L100.0100, L501.92880, L3100.5440, L101.9900, L501.9520, L501.6710, L2100.0000, L500.4050, L3200.1100, L504.2610, L3300.1200, L3410.2400, L5500.0550 ####[facility] [address] [place], [place], [phone](805) Creatinine [Mass/Vol] 0.63 mg/dL Normal 0.55-1.02 [facility] Comment on above: Order Comment: 1 Result Comment: The validity of the calculated GFR GFRAA in patients over70 years has not been determined. Clinical correlation isessential. Performed By: #### L 3100.3425, L506.0400, L100.0100, L501.95730, L3100.5440, L101.9900, L501.9520, L501.6710, L2100.0000, L500.4050, L3200.1100, L504.2610, L3300.1200, L3410.2400, L5500.0550 ####[facility] [address] [place], [place], [phone](754) EST GFR - AA 126 mL/min Normal >60 [facility] Comment on above: Order Comment: 1 Result Comment: Afri can Equatorial [place]ine[place] GFR Calc Performed By: #### L 3100.3425, L506.0400, L100.0100, L501.76582, L3100.5440, L101.9900, L501.9520, L501.6710, L2100.0000, L500.4050, L3200.1100, L504.2610, L3300.1200, L3410.2400, L5500.0550 ####[facility] [address] [place], [place], [phone] GAP 6 Normal 5-15 [facility] Comment on above: Order Comment: 1 Performed By: #### L 3100.3425, L506.0400, L100.0100, L501.94710, L3100.5440, L101.9900, L501.9520, L501.6710, L2100.0000, L500.4050, L3200.1100, L504.2610, L3300.1200, L3410.2400, L5500.0550 ####[facility] [address] [place], [address] GFR/1.73 sq M.predicted among non-blacks MDRD (S/P/Bld) [Vol rate/Area] 104 mL/min/{1.73_m2} Normal >60 [facility] Comment on above: Order Comment: 1 Result Comment: Non- GFR Calc Performed By: #### L 3100.3425, L506.0400, L100.0100, L501.77074, L3100.5440, L101.9900, L501.9520, L501.6710, L2100.0000, L500.4050, L3200.1100, L504.2610, L3300.1200, L3410.2400, L5500.0550 ####[facility] [address] [place], [address] Globulin (S) [Mass/Vol] 3.8 g/dL Normal 2.2-4.2 [facility] Comment on above: Order Comment: 1 Performed By: #### L 3100.3425, L506.0400, L100.0100, L501.15694, L3100.5440, L101.9900, L501.9520, L501.6710, L2100.0000, L500.4050, L3200.1100, L504.2610, L3300.1200, L3410.2400, L5500.0550 ####[facility] [address] [place], [place], [phone](622) Glucose [Mass/Vol] 114 mg/dL High 74-106 [facility] Comment on above: Order Comment: 1 Result Comment: Fast ing Glucose result from 100 to 125 mg/dLsuggests IMPAIRED HOMEOSTASIS per A.D.A. criteria. Performed By: #### L 3100.3425, L506.0400, L100.0100, L501.19189, L3100.5440, L101.9900, L501.9520, L501.6710, L2100.0000, L500.4050, L3200.1100, L504.2610, L3300.1200, L3410.2400, L5500.0550 ####[facility] [address] [place], [place], [phone](645) Potassium [Moles/Vol] 4.4 mmol/L Normal 3.5-5.1 [facility] Comment on above: Order Comment: 1 Performed By: #### L 3100.3425, L506.0400, L100.0100, L501.69930, L3100.5440, L101.9900, L501.9520, L501.6710, L2100.0000, L500.4050, L3200.1100, L504.2610, L3300.1200, L3410.2400, L5500.0550 ####[facility] [address] [place], [place], [phone](649) Sodium [Moles/Vol] 133 mmol/L Low 136-145 [facility] Comment on above: Order Comment: 1 Performed By: #### L 3100.3425, L506.0400, L100.0100, L501.07598, L3100.5440, L101.9900, L501.9520, L501.6710, L2100.0000, L500.4050, L3200.1100, L504.2610, L3300.1200, L3410.2400, L5500.0550 ####[facility] [address] [place], [place], [phone] T PROT 7.4 g/dL Normal 6.4-8.2 [facility] Comment on above: Order Comment: 1 Performed By: #### L 3100.3425, L506.0400, L100.0100, L501.11562, L3100.5440, L101.9900, L501.9520, L501.6710, L2100.0000, L500.4050, L3200.1100, L504.2610, L3300.1200, L3410.2400, L5500.0550 ####[facility] [address] [place], [place], [phone] Urea nitrogen [Mass/Vol] 13 mg/dL Normal 7-18 [facility] Comment on above: Order Comment: 1 Performed By: #### L 3100.3425, L506.0400, L100.0100, L501.15090, L3100.5440, L101.9900, L501.9520, L501.6710, L2100.0000, L500.4050, L3200.1100, L504.2610, L3300.1200, L3410.2400, L5500.0550 ####[facility] [address] [facility] [address] [place], [place], [phone] Erythrocyte Sed Rateon 02-12 SED RATE 17 mm/hr Normal 0-30 [facility] Comment on above: Performed By: #### L 3100.3425, L506.0400, L100.0100, L501.97921, L3100.5440, L101.9900, L501.9520, L501.6710, L2100.0000, L500.4050, L3200.1100, L504.2610, L3300.1200, L3410.2400, L5500.0550 ####[facility] [address] [place], [place], [phone] Free T3on 02-13-2024 Free T3 [Mass/Vol] 2.5 pg/mL Normal 2.18-3.98 [facility] Comment on above: Order Comment: 1 Performed By: #### L 3100.3425, L506.0400, L100.0100, L501.71805, L3100.5440, L101.9900, L501.9520, L501.6710, L2100.0000, L500.4050, L3200.1100, L504.2610, L3300.1200, L3410.2400, L5500.0550 ####[facility] [address] [place], [place], [phone] Gastroenterology Visit Repor ton 02-13-2024 Gastroenterology Visit Report Normal [facility] LDHon 02-13-2024 LDH 198 U/L Normal 84-246 [facility] Comment on above: Order Comment: 1 Performed By: #### L 3100.3425, L506.0400, L100.0100, L501.21264, L3100.5440, L101.9900, L501.9520, L501.6710, L2100.0000, L500.4050, L3200.1100, L504.2610, L3300.1200, L3410.2400, L5500.0550 ####[facility] [address] [place], [place], [phone] T4 Free Directon 02-13-2024 T4 FREE DIRECT 1.00 ng/dL Normal 0.76-1.46 [facility] Comment on above: Order Comment: 1 Performed By: #### L 3100.3425, L506.0400, L100.0100, L501.65855, L3100.5440, L101.9900, L501.9520, L501.6710, L2100.0000, L500.4050, L3200.1100, L504.2610, L3300.1200, L3410.2400, L5500.0550 ####[facility] [address] [place], [place], [address] Thyroid Stim Hormone (TSH)on 02-13-2024 TSH 1.070 uIU/mL Normal 0.358-3.74 0 [facility] Comment on above: Order Comment: 1 Performed By: #### L 3100.3425, L506.0400, L100.0100, L501.66428, L3100.5440, L101.9900, L501.9520, L501.6710, L2100.0000, L500.4050, L3200.1100, L504.2610, L3300.1200, L3410.2400, L5500.0550 ####[facility] [address] 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 Cassia is a 58 year old who presents for an annual gynecologic exam without complaints. Postmenopausal: Yes No PMB HRT use: No. Last Pap: no record HPV: no record History of abnormal pap: No Last mammogram: 2023 normal OB History T0 L0 SAB0 IAB0 Ectopic0 Multiple0 Live Births0 Supervisor Special Education History LMP: Hysterectomy Age at Menarche: Age at First : Age at Menopause: Supervisor Special Education History Comments: Sexual Activity: Not Currently; No [...] PAST SURGICAL HISTORY OF bilateral cataract surgeries PT [facility] 12/2022 2 heart stents placed PT ED HEART AND VASCULAR 09/2023 heart ablation TONSILLECTOMY HX FAMILY HISTORY Problem Relation Age of Onset Heart Mother stents Hypertension Mother other (pacemaker) Mother other (enlarged heart) Mother other (vertigo) Mother Arthritis Mother Prostate Cancer Father other (sjogrens) Sister No Known Problems Maternal Grandmother Heart Attack Maternal Grandfather No Known Problems Paternal Grandmother No Known Problems Paternal Grandfather SOCIAL HISTORY Social History Tobacco Use Smoking status: Never Smokeless tobacco: Never Vaping Use Vaping status: Never Used Substance Use Topics Alcohol use: Not Currently Comment: Rare Drug use: Never REVIEW OF SYSTEMS Abdomen: No abdominal pain, nausea, vomiting, diarrhea, or constipation. No bloating, early satiety, indigestion, or increased flatulence. Bladder: No dysuria, gross hematuria, urinary frequency, urinary urgency, or incontinence Breast: No breast lumps, nipple d/c, overlying skin changes, redness or skin retraction Allergies and current medication updated:Yes SENSITIVE EXAM: The sensitive examination was discussed with the Patient or Patient's Authorized Oracle Consultant. As applicable, any other physician, advance practice provider, medical student, or other health professional student that will be observing or involved in the sensitive examination for educational or training purposes was discussed with the Patient or Authorized Oracle Consultant. The Patient or Authorized Oracle Consultant has agreed to proceed with the sensitive examination. (Sensitive examination includes inspection and/or palpation of the breasts, pelvis, prostate and anorectal regions). EXAM: BP 120/76 Ht 5' 2.25 (1.58m) Wt 188 lb 3.2 oz (85.4kg) BMI 34.15 kg/(m2). GENERAL: pleasant, female in no apparent distress HEENT: Normocephalic and atraumatic NECK: full range of motion DERMATOLOGY: Normal, without lesions, non-icteric, and non-hirsute BREAST: soft, non-tender, symmetric, no dominant mass, normal nipple-areolar complex, no lymphadenopathy, and no nipple discharge CHEST: Normal inspiratory effort ABDOMEN: soft, non-tender, and no masses PELVIC: external genitalia normal, normal Bartholin's glands, urethra, Boulder's glands, no vulvar lesions, good vaginal support, physiologic discharge present, normal appearing perineal body and perianal region BIMANUAL: no adnexal masses and non-tender RECTOVAGINAL: deferred. NEURO: exam grossly non-focal EXTREMITIES: normal ASSESSMENT/PLAN: 1) Health maintenance: Pap/HPV screening no longer needed Mammogram ordered Nutrition, exercise and routine health maintenance exams reviewed. Colon cancer screening: up to date with screening TSH/lipids/glucose: followed by PCP 2) Follow up one year or sooner as needed Chhaya Crowe DO Allergies As of Date: 01/21/2024 Noted Allergy Reaction CANTALOUPE 01/22/2019 18 - Angioedema LEVAQUIN (LEVOFLOXACIN) 04/12/2021 2 - Rash SULFA (SULFONAMIDE ANTIBIOTICS) 01/22/2019 4 - Hives Date Reviewed: 01/21/2024 Reviewed by: Reyna Cunha MA - Fully Assessed Reason for Visit: Well Woman [1463] Primary Visit Diagnosis:Encounter for gynecological examination (general) (routine) without abnormal findings [Z01.419] Other Visit Diagnosis:Encounter for screening mammogram for breast cancer [Z12.31] Order(s):MIN SCREENING W ROBERT [[id number]] Order #: [id number] FUTURE Prescriptions as of 01/21/2024 - tria (more content not included)... Normal [facility] CNOVon 01-17-2024 CNOV Office Visit (INTMWS ) CASSIA HOLLAND ([id number]) 1965 F Date Time Provider Department 01/17/24 1:20 PM OLDER, SHAHRIAR INTMWS During your visit today, we recorded the following information about you: Pulse Respiration Blood pressure Weight Normal [facility] C3 SerPl-mCncon 12-31-2023 Complement C3 [Mass/Vol] 137 mg/dL Normal 86-166 [facility] Comment on above: Order Comment: Speci men Type: BLOOD SPECIMENOrdering Facility: [facility] Address: [address] [place] [address] [address], [place] [address] Performed By: #### 4 485-9, 50074-5, 4498-2, 1987-09 ####[facility] LABCLIA [id number] [place] [id number] [place] C4 SerPl-mCncon 12-31-2023 Complement C4 [Mass/Vol] 11 mg/dL Low 13-46 [facility] Comment on above: Order Comment: Speci men Type: BLOOD SPECIMENOrdering Facility: [facility] Address: [address] [place] [address] [address], [place] [address] Performed By: #### 4 485-9, 72028-9, 4498-2, 1987-09 ####[facility] LABIA [id number] [place] [id number] [place] CREATININE BLDon 12-31-2023 Creatinine [Mass/Vol] 0.54 mg/dL Low 0.58-0.96 [facility] Comment on above: Order Comment: Speci men Type: BLOOD SPECIMENOrdering Facility: [facility] Address: [address] [place] [address] [address], [place] [address] Performed By: #### C RET1 ####[facility] LABIA [id number] [place] [id number] [place] Creatinine and Glomerular filtration rate.predicted panel (S/P/Bld) 107 mL/min/1.73m??? Normal >=60 [facility] Comment on above: Order Comment: Speci men Type: BLOOD SPECIMENOrdering Facility: [facility] Address: [address] [place] [address] [address], [place] [address] Result Comment: Arianna mated Glomerular Filtration Rate (eGFR) is calculated using the 2020 CKD-EPI creatinine equation. This equation utilizes serum creatinine, sex, and age as parameters. The creatinine assay has traceable calibration to isotope dilution-mass spectrometry. Refer to KDIGO guidelines for clinical interpretation. In patients with unstable renal function, e.g. those with acute kidney injury, the eGFR may not accurately reflect actual GFR. Performed By: #### C RET1 ####[facility] LABCLIA [id number] [place] [id number] [place] CRP SerPl-mCncon 12-31-2023 CRP [Mass/Vol] 0.8 mg/dL Normal <0.9 [facility] Comment on above: Order Comment: Bradley castellanos Type: BLOOD SPECIMENOrdering Facility: [facility] [place] Address: [address] [place], [place] [address]MARIA GUADALUPE MILLER, [place] [address] Performed By: #### 4 485-9, 13493-6, 4498-2, 1987-09 ####[facility] LABIA [id number] [address] OF [facility] DNASE B ANTIBODYon 4 ANTI-DNASE B AB <86 Normal <=259 [facility] Comment on above: Order Comment: Bradley castellanos Type: BLOOD SPECIMENOrdering Facility: [facility] Address: [address] [place], [place] [address]IA GUADALUPE MILLER, [place] [address] Result Comment: REFE RENCE INTERVAL: DNAse B Antibody Elevated titers of antideoxyribonuclease B antibody (anti-DNase B) or antistreptolysin O antibody (ASO) indicate a recent group A Streptococcus infection. Anti-DNase B antibodies typically remain elevated longer than ASO and may remain elevated for several months after infection. Patients suspected of having complications related to a recent Streptococcus infection such as acute glomerulonephritis or acute rheumatic fever may have elevated anti-DNase B but normal ASO antibody titers. A negative or very low anti-DNase B and ASO antibody titers, especially from a specimen tested 2 weeks after a suspected infection, indicates unlikely incidence of a recent Streptococcus infection. Performed By: [facility] [address] [place] [address] Pie Dough Roller: Ramses Huffman MD, PhD CLIA Number: [id number] Performed By: #### D ASE ####[facility] [id number] [place] [address] Hepatic function 2000 panelo n 12-31-2023 Albumin [Mass/Vol] 4.0 g/dL Normal 3.9-4.9 [facility] Comment on above: Order Comment: Speci men Type: BLOOD SPECIMENOrdering Facility: [facility] Address: [address] [place], [place] [address]UPE [place] [phone] Performed By: #### 4 485-9, 11076-2, 4498-2, 1987-09 ####[facility] LABIA [id number] [place] [address] [place] ALP [Catalytic activity/Vol] 106 U/L Normal 34-123 [facility] Comment on above: Order Comment: Bradley castellanos Type: BLOOD SPECIMENOrdering Facility: [facility] Address: [address] [place], [place] [address] [phone] Performed By: #### 4 485-9, 62963-9, 4498-2, 1987-09 ####[facility] LABIA [id number] [place] [address] [place] ALT [Catalytic activity/Vol] 60 U/L High 7-38 [facility] Comment on above: Order Comment: Bradley castellanos Type: BLOOD SPECIMENOrdering Facility: [facility] Address: [address] [place], [place] [address]MARIA GUADALUPE [address]ILLER, [place] [address] Performed By: #### 4 485-9, 01647-0, 4498-2, 1987-09 ####[facility] LABIA [id number] [place] [address] [place] AST [Catalytic activity/Vol] 70 U/L High 13-35 [facility] Comment on above: Order Comment: Natashai emanuel Type: BLOOD SPECIMENOrdering Facility: [facility] Address: [address] [place], [place] [address]MARIA GUADALUPE [address]ILLER, [place] [address] Performed By: #### 4 485-9, 28499-5, 4498-2, 1987-09 ####[facility] LABIA [id number] [address] [address] [place] Bilirubin [Mass/Vol] 0.4 mg/dL Normal 0.2-1.[address] [facility] Comment on above: Order Comment: Speci men Type: BLOOD SPECIMENOrdering Facility: [facility] Address: [address] [place] [address] [address]ILLER, [place] [address] Performed By: #### 4 485-9, 95868-1, 4497-, 1987-09 ####[facility] [id number] [place] [address] [place] Bilirubin.conjugated [Mass/Vol] mg/dL Normal <0.2 [facility] Comment on above: Order Comment: Speci men Type: BLOOD SPECIMENOrdering Facility: [facility] Address: [address] [place] [address] ADINAMARIA GUADALUPE MILLER, [place] [address] Performed By: #### 4 485-9, 76546-4, 4497-06, 1987-09 ####[facility] [id number] [place] [address] [place] Protein [Mass/Vol] 7.4 g/dL Normal 6.3-8.0 [facility] Comment on above: Order Comment: Speci men Type: BLOOD SPECIMENOrdering Facility: [facility] Address: [address] [place] [address] ADINAMARIA GUADALUPE MILLER, [place] [address] Performed By: #### 4 485-9, 19159-7, 8-, 1987-09 ####[facility] LABIA [id number] [place] [id number] [place] Prot/Creat Uron 12-31-2023 Protein/Creatinine (U) [Mass ratio] 0.13 mg/mg Normal <0.15 [facility] Comment on above: Order Comment: Speci men Type: URINE SPECIMEN [facility] Address: [address] [place], [place] [address] [address] Result Comment: Adul t Proteinuria Categories: <0.15 mg/mg is considered normal to mildly increased 0.15 - 0.50 mg/mg is considered moderately increased >0.50 mg/mg is considered severely increased KDIGO. (2013). KDIGO 2012 Clinical Practice Guideline for the Evaluation and Management of Chronic Kidney Disease. Official Journal of the International Society of Nephrology, 3(1), 1-150. Performed By: #### 2 890-2 #### [facility] LAB IA [id number] [address] [place] [address] [place] Protein/Creatinine (U) [Mass ratio]on 12-31-2023 Creatinine (U) [Mass/Vol] 68.4 mg/dL Normal 20.0-300.0 [facility] Comment on above: Order Comment: Speci men Type: URINE SPECIMEN [facility] Address: [address] [place], [place] [address] [address] Performed By: #### 2 890-2 #### [facility] CLIA [id number] [address] [place] [address] STATES OF [facility] Protein (U) [Mass/Vol] 9 mg/dL Normal 0-20 [facility] Comment on above: Order Comment: Speci men Type: URINE SPECIMEN [facility] Address: [address] [place] [address] [place]INAMARIA [place]PE [place] [address] Performed By: #### 2 890-2 #### [facility] LAB [place] [id number] [address] [place] [address] OF [place] Urinalysis complete panel (U )on 12-31-2023 Bacteria LM.HPF (Urine sed) [#/Area] Negative Normal Negative [facility] Comment on above: Order Comment: Speci men Type: URINE SPECIMEN [facility] Address: [address] [place], [place] [address] [address] Performed By: #### 2 890-2 #### [facility] CLIA [id number] [address] [place] [address] [place] Bilirubin Ql (U) Negative Normal Negative [facility] Comment on above: Order Comment: Speci men Type: URINE SPECIMEN [facility] Address: [address] [place], [place] [address]MARIA GUADALUPE , [place] [address] Performed By: #### 2 890-2 #### [facility] CLIA [id number] [address] [place] [address] [place] Clarity (Unsp spec) Clear Normal Clear [facility] Comment on above: Order Comment: Speci men Type: URINE SPECIMEN [facility] Address: [address] [place], [place] [address] [address] Performed By: #### 2 890-2 #### [facility] CLIA [id number] [address] [place] [address] [place] Color (U) Yellow Normal Yellow [facility] Comment on above: Order Comment: Speci men Type: URINE SPECIMEN [facility] Address: [address] [place], [place] [address]MARIA GUADALUPE , [place] [address] Performed By: #### 2 890-2 #### [facility] CLIA [id number] [address] [place] [address] [place] Epithelial cells LM.HPF (Urine sed) [#/Area] Few Normal [facility] Comment on above: Order Comment: Speci men Type: URINE SPECIMEN [facility] Address: [address] [place], [place] [address]MARIA GUADALUPE , [place] [address] Performed By: #### 2 890-2 #### [facility] CLIA [id number] [address] [place] [id number] [place] Glucose Test strip (U) [Mass/Vol] Negative Normal Negative [facility] Comment on above: Order Comment: Speci men Type: URINE SPECIMEN [facility] Address: [address] [place], [place] [address]MARIA GUADALUPE MILLER, [place] [address] Performed By: #### 2 890-2 #### [facility] CLIA [id number] [address] [place] [address] [place] Hemoglobin Ql (U) Negative Normal Negative [facility] Comment on above: Order Comment: Speci men Type: URINE SPECIMEN Ordering Facility: [employer] Address: [address] [place] [address] CARLY MILLER, [place] [address] Performed By: #### 2 890-2 #### [facility] CLIA [id number] [address] [place] [address] [place] Hyaline casts (Urine sed) [#/Area] 0 /[LPF] Normal 0 /LPF [facility] Comment on above: Order Comment: Speci men Type: URINE SPECIMEN Ordering Facility: [employer] Address: [address] [place] [address], [place] [address] Performed By: #### 2 890-2 #### [facility] CLIA [id number] [address] [place] [address] [place] Ketones Ql (U) Negative Normal Negative [facility] Comment on above: Order Comment: Speci men Type: URINE SPECIMEN Ordering Facility: [employer] Address: [address] [place] [address] JUSTINCharl[address] , [place] [address] Performed By: #### 2 890-2 #### [facility] CLIA [id number] [facility] [place] [address] [place] Leukocyte esterase Test strip Ql (U) Negative Normal Negative [facility] Comment on above: Order Comment: Speci men Type: URINE SPECIMEN Ordering Facility: [employer] Address: [address] [place], [place] [address]MARIA GUADALUPE , [place] [address] Performed By: #### 2 890-2 #### [facility] CLIA [id number] [address] [place] [address] [place] Nitrite Ql (U) Negative Normal Negative [facility] Comment on above: Order Comment: Speci men Type: URINE SPECIMEN [facility] Address: [address] [place] [address] ADINAMARIA GUADALUPE MILLER, [place] [address] Performed By: #### 2 890-2 #### [facility] CLIA [id number] [address] [place] [address] [place] pH (U) 7.0 [pH] Normal <8.5 [facility] Comment on above: Order Comment: Speci men Type: URINE SPECIMEN [facility] Address: [address] [place] [address] ADINAMARIA GUADALUPE MILLER, [place] [address] Performed By: #### 2 890-2 #### [facility] CLIA [id number] [address] [place] [address] [place] Protein (U) [Mass/Vol] Negative Normal Negative [facility] Comment on above: Order Comment: Speci men Type: URINE SPECIMEN [facility] Address: [address] [place], [place] [address]MARIA GUADALUPE MILLER, [place] [address] Performed By: #### 2 890-2 #### [facility] CLIA [id number] [address] [place] [address] [place] RBC LM.HPF (Urine sed) [#/Area] 0-2 /HPF Normal 0-2 /HPF [facility] Comment on above: Order Comment: Speci men Type: URINE SPECIMEN [facility] Address: [address] [place] [address] CARLY MILLER, [place] [address] Performed By: #### 2 890-2 #### [facility] CLIA [id number] [address] [place] [address] [place] Specific gravity (U) [Rel density] 1.016 Normal 1.005-1.03 0 [facility] Comment on above: Order Comment: Speci men Type: URINE SPECIMEN [facility] Address: [address] [place] [address] Performed By: #### 2 890-2 #### [facility] CLIA [id number] [address] [place] [address] [place] Urobilinogen Ql (U) 1.0 EU/dL Normal 0.2-1.0 EU/dL [facility] Comment on above: Order Comment: Speci men Type: URINE SPECIMEN [facility] Address: [address] [place], [place] [address] Performed By: #### 2 890-2 #### [facility] CLIA [id number] [address] [place] [address] [place] WBC LM.HPF (Urine sed) [#/Area] 0-5 /HPF Normal 0-5 /HPF [facility] Comment on above: Order Comment: Speci men Type: URINE SPECIMEN Ordering Facility: [employer] Address: [address] [place] [address] Performed By: #### 2 890-2 #### [facility] CLIA [id number] [address] [place] [address] [place] CNCOon 12-25-2023 [facility] HNO ID: [id number] Author: COORDINATOR, MAMMOGRAPHY, ? Service: ? Author Type: Physician Type: Letter Filed: 12/25/2023 20:44 Note Text: December 26, 2023 PID: [id number] Cassia Holland [address] [place] [address] Dear Ms. Holland, We are pleased to inform you that the results of your recent breast imaging exam on 12/25/2023 are normal. Breast tissue can be either dense or not dense. Dense tissue makes it harder to find breast cancer on a mammogram and also raises the risk of developing breast cancer. Your breast tissue is dense. In some people with dense tissue, other imaging tests in addition to a mammogram may help find cancers. Talk to your healthcare provider about breast density, risks for breast cancer, and your individual situation. Early detection of cancer is very important. We also understand recommendations regarding breast cancer screening are controversial. Please discuss with your primary care provider which strategy is best for you and whether a mammogram is right for you. Your imaging studies and report will be kept on file at [facility] as part of your permanent medical record and are available for your continuing care. Thank you for allowing us to help in meeting your health care needs. Sincerely, Dr. Jameson Interpreting Radiologist [facility] (Normal over 40) Normal [facility] DBT Breast - bilateral scree adn 12-25-2023 IMPRESSION: BENIGN There is no mammographic evidence of malignancy. A 1 year screening mammogram is recommended. Gene thornton/william:12/25/2023 20:44:15 Sales Rep(s): RT Aleksandar(R)(M), [facility] letter sent: Normal over 40 Mammogram BI-RADS: Category 2: Benign Multiple national specialty organizations have released breast cancer screening guidelines for women at average risk for developing breast cancer - guidelines that are based on both evidence and opinion, yet differ on when to start and how often to screen for breast cancer. With representation from Breast Imaging, Internal Medicine, Women's Health, Family Medicine, and Medical/Surgical Oncology, the [facility] has carefully reviewed the data and reached the following consensus: 1) All women should engage in shared decision-making with their providers to decide when to start and how often to screen; 2) All women should have the opportunity to start screening mammography at age 40; 3) For women ages 45-55, we recommend annual screening mammograms; 4) For women ages 55 and over, we support both the transition from an annual to a biennial interval if this aligns more with patient's values and preferences, or continuation with annual screening; 5) All women should discuss with their providers when to stop screening mammograms. [employer] Production Technician: William Transcribe Date/Time: Dec 25 2023 8:31A Dictated by: GENE JAMESON MD This examination was interpreted and the report reviewed and electronically signed by: GENE JAMESON MD on Dec 25 2023 8:44PM [facility] DIVISION OF RADIOLOGY * * *Final Report* * * DATE OF EXAM: Dec 25 2023 2:26PM [facility] 0582 - [facility] SCREENING W ROBERT / PROCEDURE REASON: Encounter for screening mammogram for breast cancer * * * * Physician Interpretation * * * * RESULT: #[id number] - [facility] SCREENING W ROBERT BILATERAL DIGITAL SCREENING MAMMOGRAM TOMOSYNTHESIS WITH CAD: 12/25/2023 HISTORY: Encounter For Screening Mammogram For Breast Cancer / Screening Mammogram-Patient reports NO symptoms. /priors available for comparison. RESULT: TECHNIQUE: The study was acquired using full field digital technology and interpreted from soft copy. Digital Breast Tomosynthesis (DBT) images were obtained and used to assist in the interpretation of this examination. Current study was also evaluated with a Computer Aided Detection (CAD). Comparison is made to exams dated: 11/09/2022 mammogram, 09/22/2021 mammogram, and 03/15/2020 mammogram - [facility]. The breasts are heterogeneously dense, which may obscure small masses. There are benign calcifications in both breasts. No significant masses, calcifications, or other findings are seen in either breast. There has been no significant interval change. DIVISION OF RADIOLOGY Provider, [facility] - 12/25/2023 * * *Final Report* * * DATE OF EXAM: Dec 25 2023 2:26PM [facility] 0582 - [facility] SCREENING W ROBERT / PROCEDURE REASON: Encounter for screening mammogram for breast cancer * * * * Physician Interpretation * * * * RESULT: #[id number] - MIN SCREENING W ROBERT BILATERAL DIGITAL SCREENING MAMMOGRAM TOMOSYNTHESIS WITH CAD: 12/25/2023 HISTORY: Encounter For Screening Mammogram For Breast Cancer / Screening Mammogram-Patient reports NO symptoms. /priors available for comparison. RESULT: TECHNIQUE: The study was acquired using full field digital technology and interpreted from soft copy. Digital Breast Tomosynthesis (DBT) images were obtained and used to assist in the interpretation of this examination. Current study was also evaluated with a Computer Aided Detection (CAD). Comparison is made to exams dated: 11/09/2022 mammogram, 09/22/2021 mammogram, and 03/15/2020 mammogram - [facility]. The breasts are heterogeneously dense, which may obscure small masses. There are benign calcifications in both breasts. No significant masses, calcifications, or other findings are seen in either breast. There has been no significant interval change. IMPRESSION IMPRESSION: BENIGN There is no mammographic evidence of malignancy. A 1 year screening mammogram is recommended. Gene thornton/william:12/25/2023 20:44:15 Sales Rep(s): Figueroa Davies RT(R)(M), [facility] letter sent: Normal over 40 Mammogram BI-RADS: Category 2: Benign Multiple national specialty organizations have released breast cancer screening guidelines for women at average risk for developing breast cancer - guidelines that are based on both evidence and opinion, yet differ on when to start and how often to screen for breast cancer. With representation from Breast Imaging, Internal Medicine, Women's Health, Family Medicine, and Medical/Surgical Oncology, the [facility] has carefully reviewed the data and reached the following consensus: 1) All women should engage in shared decision-making with their providers to decide when to start and how often to screen; 2) All women should have the opportunity to start screening mammography at age 40; 3) For women ages 45-55, we recommend annual screening mammograms; 4) For women ages 55 and over, we support both the transition from an annual to a biennial interval if this aligns more with patient's values and preferences, or continuation with annual screening; 5) All women should discuss with their providers when to stop screening mammograms. Biodies[employer] Production Technician: William Transcribe Date/Time: Dec 25 2023 8:31A Dictated by: GENE JAMESON MD This examination was interpreted and the report reviewed and electronically signed by: GENE JAMESON MD on Dec 25 2023 8:44PM EST [facility] Radiology Study observation (narrative) [facility] DBT Breast - bilateral scree ningOrdered By: [facility] Provider on 12-25-2023 [facility] MIN SCREENING W TOMOon 12-24 [facility] SCREENING W ROBERT * * *Final Report* * * DATE OF EXAM: Dec 25 2023 2:26PM [facility] 0582 - [facility] SCREENING W ROBERT / PROCEDURE REASON: Encounter for screening mammogram for breast cancer * * * * Physician Interpretation * * * * RESULT: #[id number] - [facility] SCREENING W ROBERT BILATERAL DIGITAL SCREENING MAMMOGRAM TOMOSYNTHESIS WITH CAD: 12/25/2023 HISTORY: Encounter For Screening Mammogram For Breast Cancer / Screening Mammogram-Patient reports NO symptoms. /priors available for comparison. RESULT: TECHNIQUE: The study was acquired using full field digital technology and interpreted from soft copy. Digital Breast Tomosynthesis (DBT) images were obtained and used to assist in the interpretation of this examination. Current study was also evaluated with a Computer Aided Detection (CAD). Comparison is made to exams dated: 11/09/2022 mammogram, 09/22/2021 mammogram, and 03/15/2020 mammogram - [facility]. The breasts are heterogeneously dense, which may obscure small masses. There are benign calcifications in both breasts. No significant masses, calcifications, or other findings are seen in either breast. There has been no significant interval change. IMPRESSION: BENIGN There is no mammographic evidence of malignancy. A 1 year screening mammogram is recommended. Gene thornton/william:12/25/2023 20:44:15 Sales Rep(s): RT Aleksandar(R)(M), [facility] letter sent: Normal over 40 Mammogram BI-RADS: Category 2: Benign Multiple national specialty organizations have released breast cancer screening guidelines for women at average risk for developing breast cancer - guidelines that are based on both evidence and opinion, yet differ on when to start and how often to screen for breast cancer. With representation from Breast Imaging, Internal Medicine, Women's Health, Family Medicine, and Medical/Surgical Oncology, the [facility] has carefully reviewed the data and reached the following consensus: 1) All women should engage in shared decision-making with their providers to decide when to start and how often to screen; 2) All women should have the opportunity to start screening mammography at age 40; 3) For women ages 45-55, we recommend annual screening mammograms; 4) For women ages 55 and over, we support both the transition from an annual to a biennial interval if this aligns more with patient's values and preferences, or continuation with annual screening; 5) All women should discuss with their providers when to stop screening mammograms. Biodiesel Production Technician: William Transcribe Date/Time: Dec 25 2023 8:31A Dictated by: GENE JAMESON MD This examination was interpreted and the report reviewed and electronically signed by: GENE JAMESON MD on Dec 25 2023 8:44PM EST [id number] Normal [facility] ALBUMIN/CREATININE RATIO, UR INEon 12-18-2023 Albumin DL <= 20 mg/L (U) [Mass/Vol] mg/dL Normal [facility] Comment on above: Order Comment: Speci men Type: URINE SPECIMENOrdering Facility: [facility] Address: [address] [place] [address] Performed By: #### U ACR ####[facility] [id number] [place] [address] [place] Albumin/Creatinine (U) [Mass ratio] <21 Normal <30 [facility] Comment on above: Order Comment: Speci men Type: URINE SPECIMENOrdering Facility: [facility] Address: [address] [place] [address] Result Comment: Adul t Male and Female Nephrotic Criteria: <30 mg/g is considered normal to mildly increased 30-300 mg/g is considered moderately increased >300 mg/g is considered severely increased KDIGO. (2013). KDIGO 2012 Clinical Practice Guideline for the Evaluation and Management of Chronic Kidney Disease. Official Journal of the International Society of Nephrology, 3(1), 1-150. Performed By: #### U ACR ####[facility] [id number] [place] [id number] [place] Creatinine (U) [Mass/Vol] 56.0 mg/dL Normal 20.0-300.0 [facility] Comment on above: Order Comment: Speci men Type: URINE SPECIMENOrdering Facility: [facility] Address: [address] [place] [address] Performed By: #### U ACR ####[facility] [id number] [place] [id number] [place] CBC W Auto Differential pane l (Bld)on 12-18-2023 Basophils (Bld) [#/Vol] [facility] Basophils/100 WBC (Bld) 0.6 % [facility] Differential cell count method Nom (Bld) Auto [facility] Eosinophils (Bld) [#/Vol] 0.09 10*3/uL [facility] Eosinophils/100 WBC (Bld) 2.9 % [facility] Erythrocyte distribution width (RBC) [Ratio] 15.9 % High 11.5 - 15.0 % [facility] Hematocrit (Bld) [Volume fraction] 32.2 % Low 36.0 - 46.0 % [facility] Hemoglobin (Bld) [Mass/Vol] 10.5 g/dL Low 11.5 - 15.5 g/dL [facility] Immature granulocytes (Bld) [#/Vol] [facility] Immature granulocytes/100 WBC (Bld) 0.3 % [facility] Interpretation and review of laboratory results Abnormal [facility] Lymphocytes (Bld) [#/Vol] 0.86 10*3/uL Low [facility] Lymphocytes/100 WBC (Bld) 27.7 % [facility] MCH (RBC) [Entitic mass] 32.4 pg 26.0 - 34.0 pg [facility] MCHC (RBC) [Mass/Vol] 32.6 g/dL 30.5 - 36.0 g/dL [facility] MCV (RBC) [Entitic vol] 99.4 fL 80.0 - 100.0 fL [facility] Monocytes (Bld) [#/Vol] 0.37 10*3/uL [facility] Monocytes/100 WBC (Bld) 11.9 % [facility] Neutrophils (Bld) [#/Vol] 1.75 10*3/uL [facility] Neutrophils/100 WBC (Bld) 56.6 % [facility] Nucleated RBC (Bld) [#/Vol] [facility] Nucleated RBC/100 WBC (Bld) [Ratio] 0.0 % /100 WBC [facility] Platelet mean volume (Bld) [Entitic vol] 11.5 fL 9.0 - 12.7 fL [facility] Platelets (Bld) [#/Vol] 149 10*3/uL Low [facility] RBC (Bld) [#/Vol] 3.24 10*6/uL Low 3.90 - 5.20 m/uL [facility] WBC (Bld) [#/Vol] 3.10 10*3/uL Low [facility] Basophils (Bld) [#/Vol] 10*3/uL Normal <0.11 [facility] Comment on above: Order Comment: Speci men Type: BLOOD SPECIMENOrdering Facility: [facility] Address: [address] [place] [address] Performed By: #### 5 7021-8 ####[facility] [id number] [place] [address] [place] Basophils/100 WBC (Bld) 0.6 % Normal [facility] Comment on above: Order Comment: Speci men Type: BLOOD SPECIMENOrdering Facility: [facility] Address: [address] [place] [address] Performed By: #### 5 7021-8 ####[facility] [id number] [place] [address] [place] Differential cell count method Nom (Bld) Auto Normal [facility] Comment on above: Order Comment: Speci men Type: BLOOD SPECIMENOrdering Facility: [facility] Address: [address] [place] [address] Performed By: #### 5 7021-8 ####[facility] [id number] [place] [address] [place] Eosinophils (Bld) [#/Vol] 0.09 10*3/uL Normal <0.46 [facility] Comment on above: Order Comment: Speci men Type: BLOOD SPECIMENOrdering Facility: [facility] Address: [address] [place] [address] Performed By: #### 5 7021-8 ####[facility] [id number] [place] [address] [place] Eosinophils/100 WBC (Bld) 2.9 % Normal [facility] Comment on above: Order Comment: Speci men Type: BLOOD SPECIMENOrdering Facility: [facility] Address: [address] [place] [address] Performed By: #### 5 7021-8 ####[facility] [id number] [place] [address] [place] Erythrocyte distribution width (RBC) [Ratio] 15.9 % High 11.5-15.0 [facility] Comment on above: Order Comment: Speci men Type: BLOOD SPECIMENOrdering Facility: [facility] Address: [address] [place] [address] Performed By: #### 5 7021-8 ####[facility] [id number] [place] [address] [place] Hematocrit (Bld) [Volume fraction] 32.2 % Low 36.0-46.0 [facility] Comment on above: Order Comment: Speci men Type: BLOOD SPECIMENOrdering Facility: [facility] Address: [address] [place] [address] Performed By: #### 5 7021-8 ####[facility] LABCLIA [id number] [place] [address] [place] Hemoglobin (Bld) [Mass/Vol] 10.5 g/dL Low 11.5-15.5 [facility] Comment on above: Order Comment: Speci men Type: BLOOD SPECIMENOrdering Facility: [facility] Address: [address] [place] [address] Performed By: #### 5 7021-8 ####[facility] LABCLIA [id number] [place] [address] [place] Immature granulocytes (Bld) [#/Vol] 10*3/uL Normal <0.10 [facility] Comment on above: Order Comment: Speci men Type: BLOOD SPECIMENOrdering Facility: [facility] Address: [address] [place] [address] Performed By: #### 5 7021-8 ####[facility] LABCLIA [id number] [place] [address] [place] Immature granulocytes/100 WBC (Bld) 0.3 % Normal [facility] Comment on above: Order Comment: Speci men Type: BLOOD SPECIMENOrdering Facility: [facility] Address: [address] [place] [address] Performed By: #### 5 7021-8 ####[facility] LABCLIA [id number] [place] [address] [place] Lymphocytes (Bld) [#/Vol] 0.86 10*3/uL Low 1.00-4.00 [facility] Comment on above: Order Comment: Speci men Type: BLOOD SPECIMENOrdering Facility: [facility] Address: [address] [place] [address] Performed By: #### 5 7021-8 ####[facility] LABIA [id number] [place] [address] [place] Lymphocytes/100 WBC (Bld) 27.7 % Normal [facility] Comment on above: Order Comment: Speci men Type: BLOOD SPECIMENOrdering Facility: [facility] Address: [address] [place] [address] Performed By: #### 5 7021-8 ####[facility] LABIA [id number] [place] [address] [place] MCH (RBC) [Entitic mass] 32.4 pg Normal 26.0-34.0 [facility] Comment on above: Order Comment: Speci men Type: BLOOD SPECIMENOrdering Facility: [facility] Address: [address] [place] [address] Performed By: #### 5 7021-8 ####[facility] LABCLIA [id number] [place] [address] [place] MCHC (RBC) [Mass/Vol] 32.6 g/dL Normal 30.5-36.0 [facility] Comment on above: Order Comment: Speci men Type: BLOOD SPECIMENOrdering Facility: [facility] Address: [address] [place] [address] Performed By: #### 5 7021-8 ####[facility] LABIA [id number] [place] [address] [place] MCV (RBC) [Entitic vol] 99.4 fL Normal 80.0-100.0 [facility] Comment on above: Order Comment: Speci men Type: BLOOD SPECIMENOrdering Facility: [facility] Address: [address] [place] [address] Performed By: #### 5 7021-8 ####[facility] LABIA [id number] [place] [address] [place] Monocytes (Bld) [#/Vol] 0.37 10*3/uL Normal <0.87 [facility] Comment on above: Order Comment: Speci men Type: BLOOD SPECIMENOrdering Facility: [facility] Address: [address] [place] [address] Performed By: #### 5 7021-8 ####[facility] LABIA [id number] [place] [address] [place] Monocytes/100 WBC (Bld) 11.9 % Normal [facility] Comment on above: Order Comment: Speci men Type: BLOOD SPECIMENOrdering Facility: [facility] Address: [address] [place] [address] Performed By: #### 5 7021-8 ####[facility] LABIA [id number] [place] [address] [place] Neutrophils (Bld) [#/Vol] 1.75 10*3/uL Normal 1.45-7.50 [facility] Comment on above: Order Comment: Speci men Type: BLOOD SPECIMENOrdering Facility: [facility] Address: [address] [place] [address] Performed By: #### 5 7021-8 ####[facility] LABCLIA [id number] [place] [address] [place] Neutrophils/100 WBC (Bld) 56.6 % Normal [facility] Comment on above: Order Comment: Speci men Type: BLOOD SPECIMENOrdering Facility: [facility] Address: [address] [place] [address] Performed By: #### 5 7021-8 ####[facility] LABCLIA [id number] [place] [address] [place] Nucleated RBC (Bld) [#/Vol] 10*3/uL Normal <0.01 [facility] Comment on above: Order Comment: Speci men Type: BLOOD SPECIMENOrdering Facility: [facility] Address: [address] [place] [address] Performed By: #### 5 7021-8 ####[facility] LABCLIA [id number] [place] [address] [place] Nucleated RBC/100 WBC (Bld) [Ratio] 0.0 /100 WBC Normal [facility] Comment on above: Order Comment: Speci men Type: BLOOD SPECIMENOrdering Facility: [facility] Address: [address] [place] [address] Performed By: #### 5 7021-8 ####[facility] LABCLIA [id number] [place] [address] [place] Platelet mean volume (Bld) [Entitic vol] 11.5 fL Normal 9.0-12.7 [facility] Comment on above: Order Comment: Speci men Type: BLOOD SPECIMENOrdering Facility: [facility] Address: [address] [place] [address] Performed By: #### 5 7021-8 ####[facility] LABCLIA [id number] [place] [address] [place] Platelets (Bld) [#/Vol] 149 10*3/uL Low 150-400 [facility] Comment on above: Order Comment: Speci men Type: BLOOD SPECIMENOrdering Facility: [facility] Address: [address] [place] [address] Performed By: #### 5 7021-8 ####[facility] LABCLIA [id number] [place] [address] [place] RBC (Bld) [#/Vol] 3.24 10*6/uL Low 3.90-5.20 [facility] Comment on above: Order Comment: Speci men Type: BLOOD SPECIMENOrdering Facility: [facility] Address: [address] [place] [address] Performed By: #### 5 7021-8 ####[facility] LABCLIA [id number] [place] [address] [place] WBC (Bld) [#/Vol] 3.10 10*3/uL Low 3.70-11.00 [facility] Comment on above: Order Comment: Speci men Type: BLOOD SPECIMENOrdering Facility: [facility] Address: [address] [place] [address] Performed By: #### 5 7021-8 ####[facility] LABCLIA [id number] [place] [address] [place] CNOVon 12-18-2023 CNOV Office Visit (INTMWS ) CASSIA HOLLAND ([id number]) 1965 F Date Time Provider Department 12/18/23 8:00 AM SHAHRIAR BROWN INTLIBRA During your visit today, we recorded the following information about you: Pulse Respiration Blood pressure Weight 80/minute 16/minute 138/80 86.2 kg Shahriar Brown APRN.[employer]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 A-fib, HTN: ablation this past September. Overall has had a regular rhythm but patient reports occasional HR in the 90s. Ms. Holland indicates that she is feeling well and denies any symptoms referable to elevated blood pressure. Specifically denies headache, chest pain, dyspnea, and peripheral edema. Has had some palpitations but feels her heart is regular rhythm. Patient denies any side effects of her medication(s) and is compliant with their regimen. She does check BP's away from this office with average BP's in the 140s-190s/70s-90s range but is working with her cardiology group to get it consistently lower. Cassia denies regular aerobic exercise. She watches her diet for sodium, low fat and low cholesterol generally not very much. Last 3 Encounter BP Readings: Date: BP: 12/18/2023 138/80 08/09/2023 142/86 07/05/2023 160/88 DIABETES MELLITUS: Ms. Holland denies excessive thirst or increased frequency of urination, chest pain or dyspnea , numbness, tingling or pain in extremities, new or unusual visual symptoms, low sugar/hypoglycemic reactions, weight loss/gain, lightheadedness/dizziness, and bowel changes/loose stools. Follows a diabetic diet generally not very much. She is compliant with medication(s) and is tolerating med(s) without any side effects. She reports checking her glucose on a once a day schedule with sugars in the fasting 120s range. Patient's last HgA1C was Hemoglobin A1C (%) Date Value 06/13/2023 6.4 02/28/2023 6.3 05/05/2021 7.3 12/24/2020 9.1 Hemoglobin A1C (POCT) (%) Date Value 01/19/2022 7.2 10/13/2021 8.4 ) Last Ophthalmology exam was over a year ago but has appointment next month with Dr. Haas. Continues to feel exhausted and gaining weight. Too exhausted to exercise outside of work and currently living with her sister who encourages eating junk food. Continues her iron supplement. Just was switched to plaquenil by rheumatology for her lupus. HERMILO: Has not used her cpap in the past few months. 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 ferrous sulfate 325 mg (65 mg iron) tablet Take 1 tablet by mouth two times a day with meals. citalopram (CELEXA) 40 mg tablet Take 1 tablet by mouth once daily. predniSONE (DELTASONE) 20 mg tablet Take 20 mg by mouth once daily. metFORMIN ER (GLUCOPHAGE XR) 500 mg 24 hr tablet take 2 tablets by mouth twice a day with meals isosorbide mononitrate ER (IMDUR) 30 mg 24 hr tablet Take 30 mg by mouth every morning. molnupiravir (LAGEVRIO, EUA,) 200 mg capsule Take 800 mg by mouth two times a day. naproxen (NAPROSYN) 500 mg tablet take 1 tablet by mouth twice a day with food if needed for PAIN/INFLAMMATION lansoprazole (PREVACID) 30 mg capsule take 1 capsule by mouth once daily , 1/2 HOUR BEFORE BREAKFAST fluticasone (FLONASE) 50 mcg/actuation nasal spray instill 2 sprays into each nostril once daily budesonide (PULMICORT) 1 mg/2 mL nebulizer solution instill contents of 1 vial IN NASAL SALINE WASHES AND USE TWICE DAILY benzonatate (TESSALON PERLES) 100 mg capsule Take 2 capsules by mouth three times a day as needed for cough. dilTIAZem CD (CARDIZEM CD) 180 mg 24 hr capsule Take 120 mg by mouth two times a day. 120 mg BID montelukast (SINGULAIR) 10 mg tablet take 1 tablet by mouth once daily apixaban (ELIQUIS) 5 mg tab(s) Take 5 mg by mouth two times a day. pravastatin sodium (PRAVASTATIN ORAL) Take by mouth. clopidogrel (PLAVIX) 75 mg tablet take 4 tablets by mouth on day 1 then 1 tablet by mouth once daily after losartan (COZAAR) 100 mg tablet Take 0.5 tablets by mouth once daily. hydroCHLOROthiazide 25 mg tablet take 1 tablet by mouth on (more content not included)... Normal [facility] Ferritin SerPl-mCncon 2023 Ferritin [Mass/Vol] 139.0 ng/mL Normal 14.7-205.[address] [facility] Comment on above: Order Comment: Bradley castellanos Type: BLOOD SPECIMENOrdering Facility: [facility] Address: [address] [place] [address] Performed By: #### 3 016-3, 2276-4, 49270-6 ####[facility] LABIA [id number] [place] [address] [place] HbA1c (Bld)on 12-18-2023 Average glucose Estimated from glycated hemoglobin (Bld) [Mass/Vol] 114 mg/dL Normal [facility] Comment on above: Order Comment: Bradley castellanos Type: BLOOD SPECIMENOrdering Facility: [facility] Address: [address] [place] [address] Result Comment: eAG: (Estimated average glucose) is a calculated value from HgbA1c and is congressional representative of the average blood glucose level in the last 2-3 month period. Performed By: #### 5 5454-3 ####[facility] LABIA [id number] [place] [address] [place] HbA1c (Bld) [Mass fraction] 5.6 % Normal 4.3-5.6 [facility] Comment on above: Order Comment: Bradley castellanos Type: BLOOD SPECIMENOrdering Facility: [facility] Address: [address] [place] [address] Result Comment: Amer [place] Diabetes Association guidelines indicate that patients with HgbA1c in the range 5.7-6.4% are at increased risk for development of diabetes, and intervention by lifestyle modification may be beneficial. HgbA1c greater or equal to 6.5% is considered diagnostic of diabetes. Performed By: #### 5 5454-3 ####[facility] LABCLIA [id number] [place] [address] [place] Iron and Iron binding capaci ty panelon 12-18-2023 Iron [Mass/Vol] 250 ug/dL High 41-186 [facility] Comment on above: Order Comment: Speci men Type: BLOOD SPECIMENOrdering Facility: [facility] Address: [address] [place] [address] Performed By: #### 3 016-3, 2276-4, 76623-3 ####[facility] LABIA [id number] [place] [address] [place] Iron binding capacity [Mass/Vol] 330 ug/dL Normal 232-386 [facility] Comment on above: Order Comment: Speci men Type: BLOOD SPECIMENOrdering Facility: [facility] Address: [address] [place] [address] Performed By: #### 3 016-3, 2276-4, 10045-7 ####[facility] LABIA [id number] [place] [address] [place] Iron/TIBC [Molar ratio] 75.8 % High 15.0-57.0 [facility] Comment on above: Order Comment: Speci men Type: BLOOD SPECIMENOrdering Facility: [facility] Address: [address] [place] [address] Performed By: #### 3 016-3, 2276-4, 33459-8 ####[facility] LABIA [id number] [place] [id number] [place] TSH SerPl-aCncon 12-18-2023 TSH Qn 1.410 m[IU]/L Normal 0.270-4.20 0 [facility] Comment on above: Order Comment: Speci men Type: BLOOD SPECIMENOrdering Facility: [facility] Address: [address] [place] [address] Performed By: #### 3 016-3, 2276-4, 63059-8 ####[facility] LABCLIA [id number] NEY WALKERDESK [id number] STATES OF [facility] Lipid Profileon 12-11-2023 Cholesterol [Mass/Vol] 143 mg/dL Normal 200 [facility] Comment on above: Result Comment: <200 mg/dL Desirable 200-240 mg/dL Borderline >240 mg/dL High Risk Performed By: #### L 500.3400, L500.4100 ####[facility] [address] [place], [address] Cholesterol in HDL [Mass/Vol] 37 mg/dL Low [facility] Comment on above: Result Comment: The drugs N-Acetylcysteine and Metamizole may falselydepress this assay. Reference Range HDL <40 mg/dL Low HDL Cholesterol HDL >or= 60 mg/dL High HDL Cholesterol Performed By: #### L 500.3400, L500.4100 ####[facility] [address] [place], [address] Cholesterol in LDL [Mass/Vol] 89 mg/dL Normal 0-130 [facility] Comment on above: Performed By: #### L 500.3400, L500.4100 ####[facility] [address] [place], [address] Cholesterol in VLDL [Mass/Vol] 17 mg/dL Normal 5-40 [facility] Comment on above: Performed By: #### L 500.3400, L500.4100 ####[facility] [address] [place], [address] Triglyceride [Mass/Vol] 83 mg/dL Normal [facility] Comment on above: Result Comment: The drugs N-Acetylcysteine and Metamizole may falselydepress this assay.Serum Triglycerides Reference Interval Normal <150 mg/dL Borderline high 150 - 199 mg/dL High 200 - 499 mg/dL Very High > or = 500 mg/dL Performed By: #### L 500.3400, L500.4100 ####[facility] [address] [place], [address] Liver Profileon 12-11-2023 Albumin [Mass/Vol] 3.2 g/dL Normal 3.2-5.0 [facility] Comment on above: Performed By: #### L 500.3400, L500.4100 ####[facility] [address] [place], [address] ALK P 125 U/L High 45-117 [facility] Comment on above: Performed By: #### L 500.3400, L500.4100 ####[facility] [address] [place], [address] ALT [Catalytic activity/Vol] 97 U/L High 13-56 [facility] Comment on above: Performed By: #### L 500.3400, L500.4100 ####[facility] [address] [place], [address] AST [Catalytic activity/Vol] 95 U/L High 15-37 [facility] Comment on above: Performed By: #### L 500.3400, L500.4100 ####[facility] [address] [place], [address] Bilirubin [Mass/Vol] 0.70 mg/dL Normal 0.20-1.00 [facility] Comment on above: Result Comment: For patients on eltrombopag therapy, use of Dimension [place] TBIL is not recommended. Performed By: #### L 500.3400, L500.4100 ####[facility] [address] [place], [address] Bilirubin.direct [Mass/Vol] 0.21 mg/dL Normal 0.00-0.30 [facility] Comment on above: Performed By: #### L 500.3400, L500.4100 ####[facility] [address] [place], [address] Globulin (S) [Mass/Vol] 4.4 g/dL High 2.2-4.2 [facility] Comment on above: Performed By: #### L 500.3400, L500.4100 ####[facility] [address] [place], [address] T PROT 7.6 g/dL Normal 6.4-8.2 [facility] Comment on above: Performed By: #### L 500.3400, L500.4100 ####[facility] [address] [place], [address] Cardiology Visit Reporton Cardiology Visit Report Normal [facility] ACT* LOW RANGE, POCon 2023 ACT LOW RANGE, POC 361.0 High [facility] Interpretation and review of laboratory results Abnormal [facility] Test performed at ad dress of the patient encounter. [facility] ACT LOW RANGE, POC 393.0 High [facility] Interpretation and review of laboratory results Abnormal [facility] Test performed at ad dress of the patient encounter. [facility] ACT LOW RANGE, POC [facility] Comment on above: Out of Range High. The test result is outside clinical range and should not be used for patient-management decisions. Test performed at ad dress of the patient encounter. [facility] ACT LOW RANGE, POC [facility] Comment on above: Out of Range High. The test result is outside clinical range and should not be used for patient-management decisions. Test performed at ad dress of the patient encounter. [facility] Electrophysiology studyon Body surface area Derived from formula 1.88 m2 [facility] Cassia Holland is a 58 y.o. female with paroxysmal atrial fibrillation who presented to the [facility] EP lab for atrial fibrillation ablation. CT PV was obtained pre procedure and showed no LA/SUKH thrombus. Baseline rhythm was sinus rhythm. Right femoral vein access x 3 under ultrasound guidance. Heparin IV was used to maintain ACT 300-350 seconds. Intracardiac echo was used. Transseptal puncture x 1. 3D electroanatomic map of the left atrium was obtained in sinus rhythm. Pulsed field ablation (PFA) was delivered for pulmonary vein isolation. 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 EPS was performed. There was no pericardial effusion was at end of the procedure. EP study: Normal sinus function. Normal AV node function. Normal HV interval - 45 ms No evidence of dual AV node physiology. VA dissociation. No inducible SVT. PLAN Resume Eliquis tonight. Event monitor per protocol. Follow up with EP [facility] in 3 months. Discharge home today. [facility] Radiology Study observation (narrative) [facility] GLUCOSE POCon 09-27-2023 Glucose [Mass/Vol] 128 mg/dL High 70 - 99 mg/dL [facility] Comment on above: Notified RNread back Interpretation and review of laboratory results Abnormal [facility] POC Sample Type CAPBL [facility] Test performed at ad dress of the patient encounter. [facility] Glucose [Mass/Vol] 113 mg/dL High 70 - 99 mg/dL [facility] Interpretation and review of laboratory results Abnormal [facility] POC Sample Type CAPBL [facility] Test performed at ad dress of the patient encounter. [facility] PT,INR,PTTon 09-27-2023 aPTT Coag (PPP) [Time] 34.6 s High [facility] INR Coag (Bld) [Relative time] 1.4 {INR} High 0.9 - 1.1 [facility] Interpretation and review of laboratory results Abnormal [facility] PT Coag (PPP) [Time] 17.4 s High [facility] Chest>Heart.atrium.left+Pulm onary veins CT angiogram and 3D reconstruction W contrast Margarita 09-26-[address] [facility] [address] Report Name: CASSIA HOLLAND : 1965 Scan Date: 2023-09-26 11:55:34 Electronically signed by Asmita Roberts 15:46:40 VITALS HEIGHT: 63 in (160.02 cm) WEIGHT: 198.00 lbs (89.81 kgs) BSA: 1.93 m^2 BMI: 35 kg/m^2 BP: 120 / 65 mmHg BASELINE HR: 74 BPM FINAL IMPRESSION 1. No LA, RA or SUKH thrombus. 2. Normal pulmonary venous anatomy. 3. Coronary calcification with evidence of coronary stents. 4. Multiple hilar and mediastinal lymph adenopathy which could be inflammatory, infectious, neoplastic or non-specific. 5. Bronchiectatic changes with peribronchial scaring in the bases of the lungs. ==== Hx of CAD s/p KRISTI to LAD and D1, T2DM, HTN, ILD, and mixed connective tissue disease. Pulmonary CT venogram to assess left atrial (LA) and pulmonary veins (PV) anatomy. CT PV ==== There are 4 pulmonary veins (PV) draining to the left atrium (LA). The measurements of the PV at their LA insertion sites are measured in cm as follows: RUPV: 21 X 20 mm RLPV: 18 X 15 mm LUPV: 18 X 12 mm LLPV: 19 X 11 mm Left and right atrial enlargement. There is no LA, RA or SUKH thrombus by first pass and delayed images. coronary calcification with evidence of prior PCI LAD and diagonal branch. No aortic valve calcification. No mitral annular calcification. The ascending aorta is normal in size measuring 31 mm. No calcifications in the aortic root, ascending or descending thoracic segment. The main pulmonary artery is mildly dilated measuring 31 mm. Extra cardiac findings: limited field of view. Chest Wall: Mild degenerative changes in the thoracic spine. Mediastinum/balwinder: multiple, non calcified enlarged lymph node for example there is a 12x9 mm in the anterior mediastinum, another LN is 20x7 mm pre aortic arch. There is a 16x10 mm enlarged LN in the pretracheal area. Pleural Spaces: Normal, without thickening/effusion or pneumothorax Lung Parenchyma: bronchiectasis and sammie bronchial thickening/scaring in the lower right and lower left lobes. STUDY QUALITY: Study quality is good. 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[email or web address] SCANNER MODEL: [employer] Alpha DOSE REDUCTION ALGORITHM: Prospective/[id number] SCAN COVERAGE ZONE: Pulmonary Veins/SUKH EKG GATED: Yes GENERAL ------- CONTRAST AGENT CONTRAST AGENT USED?: Yes TYPE: Omnipaque 350 DOSE: 50 ml RATE: 4 ml/s ROUTE: IV ARM: Left BOLUS TECHNIQUE: Biphasic SCAN DELAY TIME METHOD: Bolus Track SERUM CREATININE: 0.56 mg/dL GFR: 118.18 ml/min/1.73m^2 CREATININE DATE: CT CONTRAST REACTION: None RADIATION DOSE DLP: 280 SETUP DATE OF EVENT: SCAN TYPE: Clinical PATIENT TYPE: Outpatient REASON(S) FOR SCAN: EP procedure planning REFERRING PHYSICIAN: 1) YA [place] FELLOW: GLORIA Bartholomew MD NURSE: Chloé Jurado ATTENDING PHYSICIAN: ASMITA Moe TECHNOLOGIST: Bela Flores RT (R) (CT) BILLING Patient Account [id number] CPT Codes 32978 ICD10 Codes I48.0 Report generated by [employer], a product of [employer] CARDIOLOGY Asmita Roberts MD 09/26/[address] [facility] [address] Report Name: CASSIA HOLLAND : 1965 Scan Date: 2023-09-26 11:55:34 Electronically signed by Asmita Roberts 15:46:40 VITALS ==== HEIGHT: 63 in (160.02 cm) WEIGHT: 198.00 lbs (89.81 kgs) BSA: 1.93 m^2 BMI: 35 kg/m^2 BP: 120 / 65 mmHg BASELINE HR: 74 BPM FINAL IMPRESSION ==== 1. No LA, RA or SUKH thrombus. 2. Normal pulmonary venous anatomy. 3. Coronary calcification with evidence of coronary stents. 4. Multiple hilar and mediastinal lymph adenopathy which could be inflammatory, infectious, neoplastic or non-specific. 5. Bronchiectatic changes with peribronchial scaring in the bases of the lungs. Hx of CAD s/p KRISTI to LAD and D1, T2DM, HTN, ILD, and mixed connective tissue disease. Pulmonary CT venogram to assess left atrial (LA) and pulmonary veins (PV) anatomy. CT PV There are 4 pulmonary veins (PV) draining to the left atrium (LA). The measurements of the PV at their LA insertion sites are measured in cm as follows: RUPV: 21 X 20 mm RLPV: 18 X 15 mm LUPV: 18 X 12 mm LLPV: 19 X 11 mm Left and right atrial enlargement. There is no LA, RA or SUKH thrombus by first pass and delayed images. coronary calcification with evidence of prior PCI LAD and diagonal branch. No aortic valve calcification. No mitral annular calcification. The ascending aorta is normal in size measuring 31 mm. No calcifications in the aortic root, ascending or descending thoracic segment. The main pulmonary artery is mildly dilated measuring 31 mm. Extra cardiac findings: limited field of view. Chest Wall: Mild degenerative changes in the thoracic spine. Mediastinum/balwinder: multiple, non calcified enlarged lymph node for example there is a 12x9 mm in the anterior mediastinum, another LN is 20x7 mm pre aortic arch. There is a 16x10 mm enlarged LN in the pretracheal area. Pleural Spaces: Normal, without thickening/effusion or pneumothorax Lung Parenchyma: bronchiectasis and sammie bronchial thickening/scaring in the lower right and lower left lobes. STUDY QUALITY: Study quality is good. SCAN INFO ==== TEST TYPE: Venogram SCANNER AUTOMOTIVE DESIGNER: [email or web address] SCANNER MODEL: NAEOTOM [employer] DOSE REDUCTION ALGORITHM: Prospective/Qoxr-[id number]-[id number] SCAN COVERAGE ZONE: Pulmonary Veins/SUKH EKG GATED: Yes GENERAL CONTRAST AGENT CONTRAST AGENT USED?: Yes TYPE: Omnipaque 350 DOSE: 50 ml RATE: 4 ml/s ROUTE: IV ARM: Left BOLUS TECHNIQUE: Biphasic SCAN DELAY TIME METHOD: Bolus Track SERUM CREATININE: 0.56 mg/dL GFR: 118.18 ml/min/1.73m^2 CREATININE DATE: CT CONTRAST REACTION: None RADIATION DOSE DLP: 280 SETUP DATE OF EVENT: SCAN TYPE: Clinical PATIENT TYPE: Outpatient REASON(S) FOR SCAN: EP procedure planning REFERRING PHYSICIAN: 1) YA [place] FELLOW: GLORIA Bartholomew MD NURSE: Chloé Jurado ATTENDING PHYSICIAN: ASMITA Moe TECHNOLOGIST: Bela Flores RT (R) (CT) BILLING ==== Patient Account [id number] CPT Codes 39465 ICD10 Codes I48.0 Report generated by [employer], a product of [employer] [facility] Radiology Study observation (narrative) [facility] Chest>Heart.atrium.left+Pulm onary veins CT angiogram and 3D reconstruction W contrast IVOrdered By: Asmita Roberts on 09-26-2023 [facility] Work Phone: Absolute lymphocyte countOrd ered By: Raffi Rendon on 08-28-2023 Lymphocytes Auto (Unsp spec) [#/Vol] 1.16 10*3/uL 0.83-4.51 [facility] Automated lymphocyte count a s percentage of total leukocytesOrdered By: Raffi Rendon on 08-28-2023 Lymphocytes/100 WBC Auto (Unsp spec) 27.4 % 19-41 [facility] Basophil percentageOrdered B y: Raffi Rendon on 08-28-2023 Basophils/100 WBC (Bld) 0.2 % 0-1 [facility] Bilirubin [Mass/Vol] 0.40 mg/dL 0.20-1.00 [facility] Comment on above: For patients on eltr ombopag therapy, use of Dimension [place] TBIL is not recommended. Chloride [Moles/Vol] 103 mmol/L 98-107 [facility] Eosinophils/100 WBC (Bld) 0.9 % 0-5 [facility] Glucose [Mass/Vol] 154 mg/dL 74-106 [facility] Comment on above: Fasting Glucose resu lt greater than or equal to 126 mg/dL suggests DIABETES MELLITUS per A.D.A. criteria. Hemoglobin (Bld) [Mass/Vol] 11.2 g/dL 12.0-15.0 [facility] Monocytes/100 WBC (Bld) 9.2 % 0-10 [facility] Neutrophils (Bld) [#/Vol] 2.6 10*3/uL 2.0-7.7 [facility] Neutrophils/100 WBC (Bld) 62.1 % 47-70 [facility] Potassium [Moles/Vol] 4.4 mmol/L 3.5-5.1 [facility] Protein [Mass/Vol] 7.2 g/dL 6.4-8.2 [facility] Sodium [Moles/Vol] 134 mmol/L 136-145 [facility] WBC (Bld) [#/Vol] 4.2 10*3/uL 4.4-11.0 [facility] Blood manual differential co mment interpretation (narrative result)Ordered By: Raffi Rendno on 08-28-2023 Manual differential comment Tho (Bld) [Interp] See comment [facility] Comment on above: 2+ ANISOCYTOSIS Determination of erythrocyte mean corpuscular volume (MCV)Ordered By: Raffi Rendon on 08-28-2023 MCV (RBC) [Entitic vol] 86.9 fL 81-99 [facility] Direct bilirubinOrdered By: Raffi Rendon on 08-28-2023 Bilirubin.direct [Mass/Vol] 0.13 mg/dL 0.00-0.30 [facility] Erythrocyte distribution wid th ratioOrdered By: Raffi Rendon on 08-28-2023 Erythrocyte distribution width (RBC) [Ratio] 24.1 % 11.6-14.6 [facility] Erythrocyte distribution wid th standard deviationOrdered By: Raffi Rendon on 08-28-2023 Erythrocyte distribution width (RBC) [Entitic vol] 75.6 fL 35.1-43.9 [facility] Hematocrit Auto (Bld) [Volum e fraction]Ordered By: Raffi Rendon on 08-28-2023 Hematocrit (Bld) [Volume fraction] 35.8 % 37-47 [facility] Immature granulocytes/100 WB C Auto (Bld)Ordered By: Raffi Rendon on 08-28-2023 Immature granulocytes/100 WBC (Bld) 0.200 % 0.0-0.9 [facility] Comment on above: IG% - Immature Granu locytes (promyelocytes, myelocytes and metamyelocytes) > 1% indicates that a LEFT SHIFT is Present. Iron measurement (mass/mass) Ordered By: Raffi Rendon on 08-28-2023 Iron (Unsp spec) [Mass/Mass] 42 ug/dL 50-170 [facility] Laboratory - Chemistry and C hemistry - challengeOrdered By: Raffi Julieta on 08-28-2023 ALP [Catalytic activity/Vol] 105 U/L 45-117 [facility] ALT [Catalytic activity/Vol] 139 U/L 13-56 [facility] CO2 [Moles/Vol] 24.0 mmol/L 21.0-32.0 [facility] Cobalamin (Vitamin B12) [Mass/Vol] 336 pg/mL 211-911 [facility] Ferritin [Mass/Vol] 58 ng/mL 8-252 [facility] Globulin (S) [Mass/Vol] 4.0 g/dL 2.2-4.2 [facility] Urea nitrogen/Creatinine [Mass ratio] 17.5 mg/mg 10-20 [facility] Laboratory - CoagulationOrde red By: Raffi Rendon on 08-28-2023 INR Coag (Bld) [Relative time] 1.2 {INR} [facility] PT Coag (PPP) [Time] 15.1 s 11.7-14.9 [facility] Laboratory - Hematology and Cell countsOrdered By: Raffi Rendon on 08-28-2023 MCH (RBC) [Entitic mass] 27.2 pg 27.0-32.0 [facility] MCHC (RBC) [Mass/Vol] 31.3 g/dL 32-36 [facility] Nucleated RBC/100 WBC (Bld) [Ratio] 0 % 0-5 [facility] Platelet mean volume (Bld) [Entitic vol] 11.2 fL 6.2-12.0 [facility] Platelets (Bld) [#/Vol] 138 10*3/uL 150-450 [facility] No Panel InformationOrdered By: Raffi Rendon on 08-28-2023 Estimated GFR (MDRD) Amer 126 mL/min >60 [facility] Comment on above: GFR Calc Estimated GFR (MDRD) Non-Af Amer 104 mL/min >60 [facility] Comment on above: Non- GFR Calc Total Iron Binding Capacity 325 ug/dL 250-450 [facility] Tumor Marker Alpha Fetoprotein 6.5 ng/mL 0.0-9.2 [facility] Comment on above: [employer] El ectrochemiluminescence Immunoassay(ECLIA)Values obtained with different assay methods or kits cannotbe used interchangeably. Results cannot be interpreted asabsolute evidence of the presence or absence of malignantdisease.This test is not interpretable in females.Performed at: [id number] [id number] Director: Jose Castillo PhD, Phone: [phone] Vitamin D 25-Hydroxy 34.9 ng/mL [facility] Comment on above: Vitamin D 25(OH) Sta tus Range Deficiency <20 ng/mL (50nmol/L) Insufficiency 20 - 30 ng/mL (50 - 75 nmol/L) Sufficiency 30 - 100 ng/mL (75 - 250 nmol/L) Toxicity >100 ng/mL (>250 nmol/L) RBC Auto (Bld) [#/Vol]Ordere d By: Raffi Rendon on 08-28-2023 RBC (Bld) [#/Vol] 4.12 10*6/uL 4.2-5.4 [facility] Serum or plasma calcium hailee urement (mass/volume)Ordered By: Raffi Rendon on 08-28-2023 Calcium [Mass/Vol] 8.7 mg/dL 8.5-10.1 [facility] Serum or plasma creatinine m easurement (mass/volume)Ordered By: Raffi Rendon on 08-28-2023 Creatinine [Mass/Vol] 0.63 mg/dL 0.55-1.02 [facility] Comment on above: The validity of the calculated GFR & GFRAA in patients over 70 years has not been determined. Clinical correlation is essential. Serum or plasma iron saturat ion measurement (mass fraction)Ordered By: Raffi Samshmy on 08-28-2023 Iron saturation [Mass fraction] 12.9 % 15.0-55.0 [facility] Serum or plasma thyroid stim ulating hormone (TSH) measurement (units/volume)Ordered By: [facility] on 08-28-2023 TSH Qn 1.64 uIU/mL 0.358-3.74 [facility] Serum or plasma urea nitroge n measurement (mass/volume)Ordered By: [facility] on 08-28-2023 Urea nitrogen [Mass/Vol] 11 mg/dL 7-18 [facility] Thin prep Papanicolaou smear with manual screeningOrdered By: [facility] on 08-28-2023 Thin prep Papanicolaou smear with manual screening 3.2 g/dL 3.2-5.0 [facility] Thin prep Papanicolaou smear with manual screening 83 U/L 15-37 [facility] Thin prep Papanicolaou smear with manual screening 7 5-15 [facility] Basophil percentageOrdered B y: Alicia Jose Juan on 08-17-2023 Bilirubin [Mass/Vol] 0.50 mg/dL 0.20-1.00 [facility] Comment on above: For patients on eltr ombopag therapy, use of Dimension [place] TBIL is not recommended. Chloride [Moles/Vol] 104 mmol/L 98-107 [facility] Cholesterol [Mass/Vol] 196 mg/dL <200 [facility] Comment on above: <200 mg/dL Desirable 200-240 mg/dL Borderline >240 mg/dL High Risk Glucose [Mass/Vol] 93 mg/dL 74-106 [facility] Potassium [Moles/Vol] 4.3 mmol/L 3.5-5.1 [facility] Protein [Mass/Vol] 7.6 g/dL 6.4-8.2 [facility] Sodium [Moles/Vol] 135 mmol/L 136-145 [facility] Triglyceride [Mass/Vol] 83 mg/dL <199 [facility] Comment on above: The drugs N-Acetylcy steine and Metamizole may falsely depress this assay.Serum Triglycerides Reference Interval Normal <150 mg/dL Borderline high 150 - 199 mg/dL High 200 - 499 mg/dL Very High > or = 500 mg/dL Laboratory - Chemistry and C hemistry - challengeOrdered By: Alicia Manzano on 08-17-2023 Albumin/Globulin [Mass ratio] 0.8 {ratio} 0.9-2.4 [facility] ALP [Catalytic activity/Vol] 109 U/L 45-117 [facility] ALT [Catalytic activity/Vol] 190 U/L 13-56 [facility] Cholesterol in HDL [Mass/Vol] 60 mg/dL >40 [facility] Comment on above: The drugs N-Acetylcy steine and Metamizole may falsely depress this assay. Reference Range HDL <40 mg/dL Low HDL Cholesterol HDL >or= 60 mg/dL High HDL Cholesterol Cholesterol in LDL [Mass/Vol] 119 mg/dL 0-130 [facility] CO2 [Moles/Vol] 27.0 mmol/L 21.0-32.0 [facility] Globulin (S) [Mass/Vol] 4.2 g/dL 2.2-4.2 [facility] Urea nitrogen/Creatinine [Mass ratio] 23.6 mg/mg 10-20 [facility] No Panel InformationOrdered By: Alicia Manzano on 08-17-2023 Estimated GFR (MDRD) Amer 124 mL/min >60 [facility] Comment on above: GFR Calc Estimated GFR (MDRD) Non-Af Amer 102 mL/min >60 [facility] Comment on above: Non- GFR Calc VLDL Cholesterol 17 mg/dL 5-40 [facility] Serum or plasma calcium hailee urement (mass/volume)Ordered By: Alicia Manzano on 08-17-2023 Calcium [Mass/Vol] 9.1 mg/dL 8.5-10.1 [facility] Serum or plasma creatinine m easurement (mass/volume)Ordered By: Alicia Manzano on 08-17-2023 Creatinine [Mass/Vol] 0.64 mg/dL 0.55-1.02 [facility] Comment on above: The validity of the calculated GFR & GFRAA in patients over 70 years has not been determined. Clinical correlation is essential. Serum or plasma urea nitroge n measurement (mass/volume)Ordered By: Alicia Manzano on 08-17-2023 Urea nitrogen [Mass/Vol] 15 mg/dL 7-18 [facility] Thin prep Papanicolaou smear with manual screeningOrdered By: Alicia Manzano on 08-17-2023 Thin prep Papanicolaou smear with manual screening 3.4 g/dL 3.2-5.0 [facility] Thin prep Papanicolaou smear with manual screening 79 U/L 15-37 [facility] Thin prep Papanicolaou smear with manual screening 4 5-15 [facility] CBC W Auto Differential pane l (Bld)on 08-09-2023 Basophils (Bld) [#/Vol] <0.11 k/uL [facility] Basophils/100 WBC (Bld) 0.3 % [facility] Differential cell count method Nom (Bld) Auto [facility] Eosinophils (Bld) [#/Vol] 0.03 10*3/uL <0.46 k/uL [facility] Eosinophils/100 WBC (Bld) 0.5 % [facility] Erythrocyte distribution width (RBC) [Ratio] 23.9 % High 11.5 - 15.0 % [facility] Hematocrit (Bld) [Volume fraction] 36.8 % 36.0 - 46.0 % [facility] Hemoglobin (Bld) [Mass/Vol] 11.4 g/dL Low 11.5 - 15.5 g/dL [facility] Immature granulocytes (Bld) [#/Vol] <0.10 k/uL [facility] Immature granulocytes/100 WBC (Bld) 0.3 % [facility] Lymphocytes (Bld) [#/Vol] 2.27 10*3/uL 1.00 - 4.00 k/uL [facility] Lymphocytes/100 WBC (Bld) 34.1 % [facility] MCH (RBC) [Entitic mass] 26.1 pg 26.0 - 34.0 pg [facility] MCHC (RBC) [Mass/Vol] 31.0 g/dL 30.5 - 36.0 g/dL [facility] MCV (RBC) [Entitic vol] 84.4 fL 80.0 - 100.0 fL [facility] Monocytes (Bld) [#/Vol] 0.65 10*3/uL <0.87 k/uL [facility] Monocytes/100 WBC (Bld) 9.8 % [facility] Neutrophils (Bld) [#/Vol] 3.66 10*3/uL 1.45 - 7.50 k/uL [facility] Neutrophils/100 WBC (Bld) 55.0 % [facility] Nucleated RBC (Bld) [#/Vol] <0.01 k/uL [facility] Nucleated RBC/100 WBC (Bld) [Ratio] 0.0 /100 WBC [facility] Platelet mean volume (Bld) [Entitic vol] [facility] Platelets (Bld) [#/Vol] 170 10*3/uL 150 - 400 k/uL [facility] RBC (Bld) [#/Vol] 4.36 10*6/uL 3.90 - 5.20 m/uL [facility] WBC (Bld) [#/Vol] 6.65 10*3/uL 3.70 - 11.00 k/uL [facility] Gram stain for investigation of transfusion reactionOrdered By: Lauro Mason on 07-25-2023 Microscopic observation Gram stain Nom (Unsp spec) [facility] Microbial respiratory cultur eOrdered By: Lauro Mason on 07-25-2023 Bacteria identified Respiratory culture Nom (Unsp spec) or Staphylococcus aureus isolated. [facility] No Panel InformationOrdered By: Lauro Mason on 07-25-2023 Nasopharyngeal Culture Pseudomonas aeruginosa [facility] Absolute lymphocyte countOrd ered By: Freddy Lane on 06-21-2023 Lymphocytes Auto (Unsp spec) [#/Vol] 1.09 10*3/uL 0.83-4.51 [facility] Automated lymphocyte count a s percentage of total leukocytesOrdered By: Freddy Laen on 06-21-2023 Lymphocytes/100 WBC Auto (Unsp spec) 29.1 % 19-41 [facility] Basophil percentageOrdered B y: Freddy Lane on 06-21-2023 Basophil percentage 0 SEEN /hpf 0-5 [facility] Basophils/100 WBC (Bld) 0.3 % 0-1 [facility] Bilirubin [Mass/Vol] 0.50 mg/dL 0.20-1.00 [facility] Comment on above: For patients on eltr ombopag therapy, use of Dimension [place] TBIL is not recommended. Chloride [Moles/Vol] 104 mmol/L 98-107 [facility] Eosinophils/100 WBC (Bld) 1.9 % 0-5 [facility] Glucose [Mass/Vol] 80 mg/dL 74-106 [facility] Hemoglobin (Bld) [Mass/Vol] 8.9 g/dL 12.0-15.0 [facility] Monocytes/100 WBC (Bld) 9.9 % 0-10 [facility] Neutrophils (Bld) [#/Vol] 2.2 10*3/uL 2.0-7.7 [facility] Neutrophils/100 WBC (Bld) 58.5 % 47-70 [facility] Potassium [Moles/Vol] 4.2 mmol/L 3.5-5.1 [facility] Protein [Mass/Vol] 7.5 g/dL 6.4-8.2 [facility] Sodium [Moles/Vol] 134 mmol/L 136-145 [facility] WBC (Bld) [#/Vol] 3.8 10*3/uL 4.4-11.0 [facility] Bilirubin Test strip Ql (U)O rdered By: Freddy Lane on 06-21-2023 Bilirubin Ql (U) Negative Negative [facility] Determination of erythrocyte mean corpuscular volume (MCV)Ordered By: Freddy Lane on 06-21-2023 MCV (RBC) [Entitic vol] 81.5 fL 81-99 [facility] Erythrocyte distribution wid th ratioOrdered By: Freddy Lane on 06-21-2023 Erythrocyte distribution width (RBC) [Ratio] 16.0 % 11.6-14.6 [facility] Erythrocyte distribution wid th standard deviationOrdered By: Freddy Lane on 06-21-2023 Erythrocyte distribution width (RBC) [Entitic vol] 47.7 fL 35.1-43.9 [facility] Hematocrit Auto (Bld) [Volum e fraction]Ordered By: Freddy Lane on 06-21-2023 Hematocrit (Bld) [Volume fraction] 28.6 % 37-47 [facility] Immature granulocytes/100 WB C Auto (Bld)Ordered By: Freddy Lane on 06-21-2023 Immature granulocytes/100 WBC (Bld) 0.300 % 0.0-0.9 [facility] Comment on above: IG% - Immature Granu locytes (promyelocytes, myelocytes and metamyelocytes) > 1% indicates that a LEFT SHIFT is Present. Ketones Test strip Ql (U)Ord ered By: Freddy Lane on 06-21-2023 Ketones Ql (U) Negative Negative [facility] Laboratory - Chemistry and C hemistry - challengeOrdered By: Freddy Lane on 06-21-2023 Albumin/Globulin [Mass ratio] 0.8 {ratio} 0.9-2.4 [facility] ALP [Catalytic activity/Vol] 117 U/L 45-117 [facility] ALT [Catalytic activity/Vol] 74 U/L 13-56 [facility] CO2 [Moles/Vol] 26.0 mmol/L 21.0-32.0 [facility] Globulin (S) [Mass/Vol] 4.1 g/dL 2.2-4.2 [facility] Lipase [Catalytic activity/Vol] 79 U/L 13-75 [facility] Comment on above: Please note:LIPASE r evised reference range effective 22. New Lipase methodology. Expected to produce lower values than the previous assay method. NEW Reference Range: 13 - 75 U/L Urea nitrogen/Creatinine [Mass ratio] 13.4 mg/mg 10-20 [facility] Laboratory - Hematology and Cell countsOrdered By: Freddy Lane on 06-21-2023 MCH (RBC) [Entitic mass] 25.4 pg 27.0-32.0 [facility] MCHC (RBC) [Mass/Vol] 31.1 g/dL 32-36 [facility] Nucleated RBC/100 WBC (Bld) [Ratio] 0 % 0-5 [facility] Platelet mean volume (Bld) [Entitic vol] 11.5 fL 6.2-12.0 [facility] Platelets (Bld) [#/Vol] 175 10*3/uL 150-450 [facility] Mucus LM Ql (Urine sed)Order ed By: Freddy Lane on 06-21-2023 Mucus Ql (Urine sed) 0 SEEN /hpf [facility] Nitrite Test strip Ql (U)Ord ered By: Freddy Lane on 06-21-2023 Nitrite Ql (U) Negative Negative [facility] No Panel InformationOrdered By: Freddy Lane on 06-21-2023 Estimated Creatinine Clearance Calc 106.37 ml/min [facility] Estimated GFR (MDRD) Amer 133 mL/min >60 [facility] Comment on above: GFR Calc Estimated GFR (MDRD) Non-Af Amer 110 mL/min >60 [facility] Comment on above: Non- GFR Calc Urine RBC 0 SEEN /hpf 0-5 [facility] Protein Test strip Ql (U)Ord ered By: Freddy Lane on 06-21-2023 Protein Ql (U) 15 mg/dl Negative [facility] RBC Auto (Bld) [#/Vol]Ordere d By: Freddy Lane on 06-21-2023 RBC (Bld) [#/Vol] 3.51 10*6/uL 4.2-5.4 [facility] Serum or plasma calcium hailee urement (mass/volume)Ordered By: Freddy Lane on 06-21-2023 Calcium [Mass/Vol] 9.0 mg/dL 8.5-10.1 [facility] Serum or plasma creatinine m easurement (mass/volume)Ordered By: Freddy Lane on 06-21-2023 Creatinine [Mass/Vol] 0.60 mg/dL 0.55-1.02 [facility] Comment on above: The validity of the calculated GFR & GFRAA in patients over 70 years has not been determined. Clinical correlation is essential. Serum or plasma urea nitroge n measurement (mass/volume)Ordered By: Freddy Lane on 06-21-2023 Urea nitrogen [Mass/Vol] 8 mg/dL 7-18 [facility] Squamous epithelial cells de tection in urine sediment by light microscopyOrdered By: Freddy Lane on 06-21-2023 Epithelial cells.squamous LM Ql (Urine sed) 0-5 SEEN /hpf 5-10 [facility] Thin prep Papanicolaou smear with manual screeningOrdered By: Freddy Lane on 06-21-2023 Thin prep Papanicolaou smear with manual screening 3.4 g/dL 3.2-5.0 [facility] Thin prep Papanicolaou smear with manual screening 64 U/L 15-37 [facility] Thin prep Papanicolaou smear with manual screening 4 5-15 [facility] Urine blood detectionOrdered By: Freddy Lane on 06-21-2023 RBC Ql (U) Negative Negative [facility] Urine clarityOrdered By: Fredis Lane on 06-21-2023 Clarity (U) Clear Clear [facility] Urine color determinationOrd ered By: Freddy Lane on 06-21-2023 Color (U) Yellow Yellow [facility] Urine glucose detectionOrder ed By: Freddy Lane on 06-21-2023 Glucose Ql (U) Normal mg/dl Normal [facility] Urine leukocyte esterase det ection by dipstickOrdered By: Freddy Lane on 06-21-2023 Leukocyte esterase Test strip Ql (U) Negative Negative [facility] Urine pHOrdered By: Freddy christianson on 06-21-2023 pH (U) 7.0 [pH] 5.0 - 8.0 [facility] [facility] Urine sediment bacteria coun t by microscopy (number/high power field)Ordered By: Freddy Lane on 06-21-2023 Bacteria LM.HPF (Urine sed) [#/Area] 0 /[HPF] None Seen [facility] Urine specific gravity measu rementOrdered By: Freddy Lane on 06-21-2023 Specific gravity (U) [Rel density] 1.005 1.002-1.03 0 [facility] Urine urobilinogen measureme ntOrdered By: Freddy Lane on 06-21-2023 Urobilinogen Ql (U) Normal mg/dl Normal [facility] Basophil percentageOrdered B y: Alicia Jose Juan on 06-13-2023 Bilirubin [Mass/Vol] 0.50 mg/dL 0.20-1.00 [facility] Comment on above: For patients on eltr ombopag therapy, use of Dimension [place] TBIL is not recommended. Chloride [Moles/Vol] 106 mmol/L 98-107 [facility] Cholesterol [Mass/Vol] 149 mg/dL <200 [facility] Comment on above: <200 mg/dL Desirable 200-240 mg/dL Borderline >240 mg/dL High Risk Glucose [Mass/Vol] 135 mg/dL 74-106 [facility] Comment on above: Fasting Glucose resu lt greater than or equal to 126 mg/dL suggests DIABETES MELLITUS per A.D.A. criteria. Potassium [Moles/Vol] 4.4 mmol/L 3.5-5.1 [facility] Protein [Mass/Vol] 7.5 g/dL 6.4-8.2 [facility] Sodium [Moles/Vol] 134 mmol/L 136-145 [facility] Triglyceride [Mass/Vol] 91 mg/dL <199 [facility] Comment on above: The drugs N-Acetylcy steine and Metamizole may falsely depress this assay.Serum Triglycerides Reference Interval Normal <150 mg/dL Borderline high 150 - 199 mg/dL High 200 - 499 mg/dL Very High > or = 500 mg/dL Gram stain for investigation of transfusion reactionOrdered By: Wilder Anguiano on 06-13-2023 Microscopic observation Gram stain Nom (Unsp spec) [facility] Microscopic observation Gram stain Nom (Unsp spec) [facility] Laboratory - Chemistry and C hemistry - challengeOrdered By: Alicia Manzano on 06-13-2023 Albumin/Globulin [Mass ratio] 0.8 {ratio} 0.9-2.4 [facility] ALP [Catalytic activity/Vol] 126 U/L 45-117 [facility] ALT [Catalytic activity/Vol] 91 U/L 13-56 [facility] Cholesterol in HDL [Mass/Vol] 45 mg/dL >40 [facility] Comment on above: The drugs N-Acetylcy steine and Metamizole may falsely depress this assay. Reference Range HDL <40 mg/dL Low HDL Cholesterol HDL >or= 60 mg/dL High HDL Cholesterol Cholesterol in LDL [Mass/Vol] 86 mg/dL 0-130 [facility] CO2 [Moles/Vol] 24.0 mmol/L 21.0-32.0 [facility] Globulin (S) [Mass/Vol] 4.1 g/dL 2.2-4.2 [facility] Urea nitrogen/Creatinine [Mass ratio] 19.6 mg/mg 10-20 [facility] No Panel InformationOrdered By: Wilder Anguiano on 06-13-2023 Nasopharyngeal Culture Pseudomonas aeruginosa [facility] Nasopharyngeal Culture Pseudomonas aeruginosa [facility] No Panel InformationOrdered By: Alicia Manzano on 06-13-2023 Estimated GFR (MDRD) Amer 143 mL/min >60 [facility] Comment on above: GFR Calc Estimated GFR (MDRD) Non-Af Amer 118 mL/min >60 [facility] Comment on above: Non- GFR Calc VLDL Cholesterol 18 mg/dL 5-40 [facility] Serum or plasma calcium hailee urement (mass/volume)Ordered By: Alicia Manzano on 06-13-2023 Calcium [Mass/Vol] 9.1 mg/dL 8.5-10.1 [facility] Serum or plasma creatinine m easurement (mass/volume)Ordered By: Alicia Manzano on 06-13-2023 Creatinine [Mass/Vol] 0.56 mg/dL 0.55-1.02 [facility] Comment on above: The validity of the calculated GFR & GFRAA in patients over 70 years has not been determined. Clinical correlation is essential. Serum or plasma urea nitroge n measurement (mass/volume)Ordered By: Alicia Manzano on 06-13-2023 Urea nitrogen [Mass/Vol] 11 mg/dL 7-18 [facility] Thin prep Papanicolaou smear with manual screeningOrdered By: Alicia Manzano on 06-13-2023 Thin prep Papanicolaou smear with manual screening 3.4 g/dL 3.2-5.0 [facility] Thin prep Papanicolaou smear with manual screening 73 U/L 15-37 [facility] Thin prep Papanicolaou smear with manual screening 4 5-15 [facility] Absolute lymphocyte countOrd ered By: Lakshmi Resendiz on 04-29-2023 Lymphocytes Auto (Unsp spec) [#/Vol] 1.20 10*3/uL 0.83-4.51 [facility] Basophil percentageOrdered B y: Lakshmi Resendiz on 04-29-2023 Basophils/100 WBC (Bld) 0.2 % 0-1 [facility] Chloride [Moles/Vol] 102 mmol/L 98-107 [facility] Eosinophils/100 WBC (Bld) 0.2 % 0-5 [facility] Glucose [Mass/Vol] 189 mg/dL 74-106 [facility] Comment on above: Fasting Glucose resu lt greater than or equal to 126 mg/dL suggests DIABETES MELLITUS per A.D.A. criteria. Neutrophils (Bld) [#/Vol] 2.8 10*3/uL 2.0-7.7 [facility] Neutrophils/100 WBC (Bld) 60.3 % 47-70 [facility] Potassium [Moles/Vol] 3.8 mmol/L 3.5-5.1 [facility] Sodium [Moles/Vol] 133 mmol/L 136-145 [facility] WBC (Bld) [#/Vol] 4.6 10*3/uL 4.4-11.0 [facility] Blood erythrocytes count (nu mber/volume)Ordered By: Lakshmi Resendiz on 04-29-2023 RBC (Bld) [#/Vol] 3.43 10*6/uL 4.2-5.4 [facility] Blood hemoglobin measurement (mass/volume)Ordered By: Lakshmi Resendiz on 04-29-2023 Hemoglobin (Bld) [Mass/Vol] 9.5 g/dL 12.0-15.0 [facility] Blood lymphocytes/100 leukoc ytesOrdered By: Lakshmi Resendiz on 04-29-2023 Lymphocytes/100 WBC (Bld) 26.2 % 19-41 [facility] Blood monocytes/100 leukocyt esOrdered By: Lakshmi Resendiz on 04-29-2023 Monocytes/100 WBC (Bld) 12.7 % 0-10 [facility] Blood platelet mean volumeOr dered By: Lakshmi Resendiz on 04-29-2023 Platelet mean volume (Bld) [Entitic vol] 12.4 fL 6.2-12.0 [facility] Determination of erythrocyte mean corpuscular volume (MCV)Ordered By: Lakshmi Resendiz on 04-29-2023 MCV (RBC) [Entitic vol] 87.2 fL 81-99 [facility] Hematocrit Auto (Bld) [Volum e fraction]Ordered By: Lakshmi Resendiz on 04-29-2023 Hematocrit (Bld) [Volume fraction] 29.9 % 37-47 [facility] Laboratory - Chemistry and C hemistry - challengeOrdered By: Lakshmi Resendiz on 04-29-2023 CO2 [Moles/Vol] 25.0 mmol/L 21.0-32.0 [facility] Magnesium [Mass/Vol] 1.7 mg/dL 1.6-2.6 [facility] Urea nitrogen/Creatinine [Mass ratio] 15.6 mg/mg 10-20 [facility] - Hematology and Cell countsOrdered By: Lakshmi Resendiz on 04-29-2023 Erythrocyte distribution width (RBC) [Entitic vol] 46.1 fL 35.1-43.9 [facility] Erythrocyte distribution width (RBC) [Ratio] 14.4 % 11.6-14.6 [facility] Immature granulocytes/100 WBC (Bld) 0.400 % 0.0-0.9 [facility] Comment on above: IG% - Immature Granu locytes (promyelocytes, myelocytes and metamyelocytes) > 1% indicates that a LEFT SHIFT is Present. MCH (RBC) [Entitic mass] 27.7 pg 27.0-32.0 [facility] Nucleated RBC/100 WBC (Bld) [Ratio] 0 % 0-5 [facility] MCHC Auto (RBC) [Mass/Vol]Or dered By: Lakshmi Resendiz on 04-29-2023 MCHC (RBC) [Mass/Vol] 31.8 g/dL 32-36 [facility] No Panel InformationOrdered By: Lakshmi Resendiz on 04-29-2023 Troponin I High Sensitivity 8 pg/mL 3.0-54.0 [facility] Comment on above: Please Note: New Vani t Units and Gender Specific Reference Ranges. For more information see Policy Stat Procedure [facility] High Sensitivity Troponin (TNIH) and attachments. Estimated Creatinine Clearance Calc 88.53 ml/min [facility] Estimated GFR (MDRD) Amer 138 mL/min >60 [facility] Comment on above: GFR Calc Estimated GFR (MDRD) Non-Af Amer 114 mL/min >60 [facility] Comment on above: Non- GFR Calc Thyroid Stimulating Hormone (TSH) 0.54 uIU/mL 0.358-3.74 [facility] Platelets bldOrdered By: Giovana Resendiz on 04-29-2023 Platelets (Bld) [#/Vol] 139 10*3/uL 150-450 [facility] Serum or plasma calcium hailee urement (mass/volume)Ordered By: Lakshmi Resendiz on 04-29-2023 Calcium [Mass/Vol] 9.0 mg/dL 8.5-10.1 [facility] Serum or plasma creatinine m easurement (mass/volume)Ordered By: Lakshmi Resendiz on 04-29-2023 Creatinine [Mass/Vol] 0.58 mg/dL 0.55-1.02 [facility] Comment on above: The validity of the calculated GFR & GFRAA in patients over 70 years has not been determined. Clinical correlation is essential. Serum or plasma urea nitroge n measurement (mass/volume)Ordered By: Lakshmi Resendiz on 04-29-2023 Urea nitrogen [Mass/Vol] 9 mg/dL 7-18 [facility] Thin prep Papanicolaou smear with manual screeningOrdered By: Lakshmi Resendiz on 04-29-2023 Thin prep Papanicolaou smear with manual screening 6 09-18 [facility] COVID & INFLUENZA A/B & RSV NAAT, ROUTINEon 04-17-2023 FLUAV RNA [place]+probe Ql (Unsp spec) Not detected Not Detected [facility] FLUBV RNA [place]+probe Ql (Unsp spec) Not detected Not Detected [facility] RSV A RNA CAR[place]INA+probe Ql (Unsp spec) Not detected Not Detected [facility] SARS-CoV-2 (COVID-19) RNA CAROLINA+probe Ql (Resp) Not detected See comment [facility] EMERGENCY REPORTon 3 EMERGENCY REPORT [facility] EMERGENCY ROOM REPORT NAME ACCOUNT SEX AGE ADMIT DISCHARGE PT MED. RECORD# NUMBER DATE DATE TYPE CASSIA HOLLAND [id number] F 57 03/16/23 03/16/23 3 [id number] ROOM: ER DATE OF : 1965 DICTATING PHYSICIAN: Marylu Chaudhary CHIEF COMPLAINT: Palpitations. HISTORY OF PRESENT ILLNESS: This is a 57-year-old female with a history of atrial fibrillation who presents for a feeling of her heart racing. Symptoms began approximately 1 hour ago, and feels similar to her previous episode of atrial fibrillation with rapid ventricular response. She has a history of having had coronary stents placed in December of this year. Approximately 2 weeks ago, then she had her first episode of atrial fibrillation, presented to another hospital with rapid heart rate. This converted spontaneously in the ER, and she was discharged to home without being admitted for it. She was put on Eliquis, and her previous medication Coreg dose adjusted up. She had been feeling relatively well for the past 2 weeks, and then up until about an hour ago as dictated is when the palpitations began. She states overall she has felt poor energy level ever since her coronary stents were placed a few months ago, but she denies any chest pain or difficulty breathing. The only complaint she has right now is the fluttering and racing feeling in her chest. She denies dizziness or lightheadedness. She denies any other acute complaints. PAST MEDICAL HISTORY: Coronary artery disease, atrial fibrillation, diabetes mellitus, and mix connective tissue disorder. PAST SURGICAL HISTORY: Positive for heart catheterization, stent placements, and hysterectomy. SOCIAL HISTORY: The patient rarely drinks alcohol. She denies cigarettes. She denies recreational drugs. REVIEW OF SYSTEMS: As noted on paper record. PHYSICAL EXAMINATION: VITAL SIGNS: Temperature was 98.5, pulse 111, respiratory rate 16, blood pressure 130/82, and pulse oximetry 99% on room air. GENERAL APPEARANCE: The patient is awake, alert, oriented, and in no acute distress. She appears well-nourished, well-hydrated, and nontoxic. SKIN: Warm and dry and non-diaphoretic. HEENT: Normocephalic and atraumatic. Conjunctivae are clear. Oral: Mucous membranes are moist. HEART: Heart rate is irregularly irregular, tachycardic without murmurs or rubs. LUNGS: Clear to auscultation bilaterally. ABDOMEN: Soft, nontender, and nondistended. EXTREMITIES: Extremities are without edema or calf tenderness. There is no lower extremity erythema. Page 1 of 2 CASSIA HOLLAND Emergency Room Report CASSIA HOLLAND : 1965 DIAGNOSTIC DATA: EKG demonstrates atrial fibrillation with rapid ventricular response. Laboratory studies included CBC with a hemoglobin of 11.3, otherwise essentially normal. Chemistries show a sodium of 125, chloride 89, BUN 21, glucose 123, ALT 92, ALT 113. Remainder of the chemistries are unremarkable. TSH is normal at 0.84. High-sensitivity troponin is normal at 5.0. EMERGENCY DEPARTMENT COURSE AND TREATMENT: Before we could treat the patient's atrial fibrillation as I had ordered with IV Cardizem, she spontaneously converted back to normal sinus rhythm with a rate of approximately 80, blood pressure in the 120s, and she is maintained at that rhythm for the remainder of her ED stay. At the time of disposition, she is stable, has no symptoms, and comfortable. DIAGNOSIS: Atrial fibrillation with rapid ventricular response converted to normal sinus rhythm spontaneously. PLAN/DISPOSITION: I discussed the patient's care with the [employer] electronic equipment maint tech for her [employer] at [facility]. The electronic equipment maint tech [employer] Ch[employer] Worker, Dr. Zuluaga, recommended that I discontinue the patient's hydrochlorothiazide and amlodipine and put her on Cardizem CD 120 mg daily. I gave her the first dose of this today and discharged her with a prescription for this Cardizem for home, and she was comfortable with the plan, stable at the time of disposition and diagnosis. She is to followup with her Coal Chute Worker next week, return to the ED if symptoms return or for any new symptoms of concern. Dictated By: Marylu Chaudhary DO 03/17/23 01:20 JOB #: [id number] Transcribed By: am 03/17/23 07:30 Electronically signed by: Dr. Marylu Chaudhary DO 04/04/23 07:13 Page 2 of 2 CASSIA HOLLAND Emergency Room Report Normal [facility] Absolute lymphocyte countOrd ered By: Myriam Carmel on 03-29-2023 Lymphocytes Auto (Unsp spec) [#/Vol] 1.36 10*3/uL 0.83-4.51 [facility] Basophil percentageOrdered B y: Myriam Carmel on 03-29-2023 Basophils/100 WBC (Bld) 0.2 % 0-1 [facility] Chloride [Moles/Vol] 107 mmol/L 98-107 [facility] Eosinophils/100 WBC (Bld) 0.2 % 0-5 [facility] Glucose [Mass/Vol] 162 mg/dL 74-106 [facility] Comment on above: Fasting Glucose resu lt greater than or equal to 126 mg/dL suggests DIABETES MELLITUS per A.D.A. criteria. Neutrophils (Bld) [#/Vol] 2.2 10*3/uL 2.0-7.7 [facility] Neutrophils/100 WBC (Bld) 55.4 % 47-70 [facility] Potassium [Moles/Vol] 4.1 mmol/L 3.5-5.1 [facility] Sodium [Moles/Vol] 136 mmol/L 136-145 [facility] WBC (Bld) [#/Vol] 4.0 10*3/uL 4.4-11.0 [facility] Blood erythrocytes count (nu mber/volume)Ordered By: Myriam Burt on 03-29-2023 RBC (Bld) [#/Vol] 3.21 10*6/uL 4.2-5.4 [facility] Blood hemoglobin measurement (mass/volume)Ordered By: Myriam Burt on 03-29-2023 Hemoglobin (Bld) [Mass/Vol] 9.9 g/dL 12.0-15.0 [facility] Blood lymphocytes/100 leukoc ytesOrdered By: Myriam Burt on 03-29-2023 Lymphocytes/100 WBC (Bld) 33.8 % 19-41 [facility] Blood monocytes/100 leukocyt esOrdered By: Myriam Burt on 03-29-2023 Monocytes/100 WBC (Bld) 10.2 % 0-10 [facility] Blood platelet mean volumeOr dered By: Myriam Burt on 03-29-2023 Platelet mean volume (Bld) [Entitic vol] 11.2 fL 6.2-12.0 [facility] Determination of erythrocyte mean corpuscular volume (MCV)Ordered By: Myriam Burt on 03-29-2023 MCV (RBC) [Entitic vol] 94.1 fL 81-99 [facility] Hematocrit Auto (Bld) [Volum e fraction]Ordered By: Myriam Burt on 03-29-2023 Hematocrit (Bld) [Volume fraction] 30.2 % 37-47 [facility] Laboratory - Chemistry and C hemistry - challengeOrdered By: Myriam Burt on 03-29-2023 CO2 [Moles/Vol] 22.0 mmol/L 21.0-32.0 [facility] Urea nitrogen/Creatinine [Mass ratio] 16.3 mg/mg 10-20 [facility] - Hematology and Cell countsOrdered By: Myriam Burt on 03-29-2023 Erythrocyte distribution width (RBC) [Entitic vol] 50.1 fL 35.1-43.9 [facility] Erythrocyte distribution width (RBC) [Ratio] 14.6 % 11.6-14.6 [facility] Immature granulocytes/100 WBC (Bld) 0.200 % 0.0-0.9 [facility] Comment on above: IG% - Immature Granu locytes (promyelocytes, myelocytes and metamyelocytes) > 1% indicates that a LEFT SHIFT is Present. MCH (RBC) [Entitic mass] 30.8 pg 27.0-32.0 [facility] Nucleated RBC/100 WBC (Bld) [Ratio] 0 % 0-5 [facility] MCHC Auto (RBC) [Mass/Vol]Or dered By: Myriam Burt on 03-29-2023 MCHC (RBC) [Mass/Vol] 32.8 g/dL 32-36 [facility] No Panel InformationOrdered By: Myriam Burt on 03-29-2023 Estimated Creatinine Clearance Calc 52.39 ml/min [facility] Estimated GFR (MDRD) Amer 75 mL/min >60 [facility] Comment on above: GFR Calc Estimated GFR (MDRD) Non-Af Amer 62 mL/min >60 [facility] Comment on above: Non- GFR Calc Thyroid Stimulating Hormone (TSH) 0.84 uIU/mL 0.358-3.74 [facility] Troponin I High Sensitivity 6 pg/mL 3.0-54.0 [facility] Comment on above: Please Note: New Vani t Units and Gender Specific Reference Ranges. For more information see Policy Stat Procedure [facility] High Sensitivity Troponin (TNIH) and attachments. Platelets bldOrdered By: Leandra Burt on 03-29-2023 Platelets (Bld) [#/Vol] 135 10*3/uL 150-450 [facility] Serum or plasma calcium hailee urement (mass/volume)Ordered By: Myriam Burt on 03-29-2023 Calcium [Mass/Vol] 9.0 mg/dL 8.5-10.1 [facility] Serum or plasma creatinine m easurement (mass/volume)Ordered By: Myriam Burt on 03-29-2023 Creatinine [Mass/Vol] 0.98 mg/dL 0.55-1.02 [facility] Comment on above: The validity of the calculated GFR & GFRAA in patients over 70 years has not been determined. Clinical correlation is essential. Serum or plasma urea nitroge n measurement (mass/volume)Ordered By: Myriam Burt on 03-29-2023 Urea nitrogen [Mass/Vol] 16 mg/dL 11-21 [facility] Thin prep Papanicolaou smear with manual screeningOrdered By: Myriam Burt on 03-29-2023 Thin prep Papanicolaou smear with manual screening 09-18 [facility] CBC + DIFFon 03-16-2023 Baso # 0.00 x10EE3/UL Normal 0.00 - 0.10 [facility] Comment on above: Performed By: #### 2 [id number] #### [facility],[address] [place] [address] Basophils/100 WBC (Bld) 0.5 % Normal 0.0 - 2.0 [facility] Comment on above: Performed By: #### 2 [id number] #### [facility],[address] [place] [address] CBC + DIFF Normal [facility] Comment on above: Result Comment: CBC- COMPLETE BLOOD COUNT Performed By: #### 2 [id number] #### [place] [address] EO # 0.00 x10EE3/UL Normal 0.00 - 0.50 [facility] Comment on above: Performed By: #### 2 [id number] #### [facility],[address] [place], [place] [id number] Eosinophils/100 WBC (Bld) 0.9 % Normal 0.0 - 7.0 [facility] Comment on above: Performed By: #### 2 [id number] #### [place] [address] Erythrocyte distribution width (RBC) [Ratio] 14.7 % Normal 12.0 - 15.6 [facility] Comment on above: Performed By: #### 2 [id number] #### [place] [address] Hematocrit (Bld) [Volume fraction] 34.0 % Normal 34.0 - 46.0 [facility] Comment on above: Performed By: #### 2 [id number] #### [facility],[address] [place] [address] Hemoglobin (Bld) [Mass/Vol] 11.3 g/dL Low 12.0 - 16.0 [facility] Comment on above: Performed By: #### 2 [id number] #### [facility],[address] [place] [address] Lymph # 1.30 x10EE3/UL Normal 0.80 - 2.80 [facility] Comment on above: Performed By: #### 2 89838 #### [facility],[address] [place] [address] Lymphocytes/100 WBC (Bld) 26.4 % Normal 20.0 - 45.0 [facility] Comment on above: Performed By: #### 2 [id number] #### [facility],[address] [place] [address] MANUAL DIFF N/A Normal [facility] Comment on above: Performed By: #### 2 [id number] #### [facility],[address] [place], [place] [id number] MCH (RBC) [Entitic mass] 30 pg Normal 27 - 33 [facility] Comment on above: Performed By: #### 2 [id number] #### [facility],[address] [place], [place] [id number] MCHC 33 X10 3 Normal 32 - 36 [facility] Comment on above: Performed By: #### 2 66988 #### [facility],[address] [place], [place] [id number] MCV (RBC) [Entitic vol] 91 fL Normal 80 - 99 [facility] Comment on above: Performed By: #### 2 [id number] #### [facility],[address],[place] [address] [place] # 0.60 x10EE3/UL Normal 0.20 - 1.00 [facility] Comment on above: Performed By: #### 2 69826 #### [address] [address] MONOS % 13.2 % High 0.0 - 10.0 [facility] Comment on above: Performed By: #### 2 89802 #### [facility],[address] [place], [place] [id number] Morphology Tho (Bld) [Interp] N/A Normal [facility] Comment on above: Result Comment: {CD] Performed By: #### 2 [id number] #### [place] [address] Neut # 2.80 x10EE3/UL Normal 1.50 - 7.10 [facility] Comment on above: Performed By: #### 2 40923 #### [place] [address] Neutrophils/100 WBC (Bld) 59.0 % Normal 46.0 - 76.0 [facility] Comment on above: Performed By: #### 2 60594 #### [place] [id number] PLATELET 192 x10EE3/UL Normal 150 - 450 [facility] Comment on above: Performed By: #### 2 75837 #### [facility],[address] [place] [address] Platelet mean volume (Bld) [Entitic vol] 9.8 fL Normal 6.6 - 10.5 [facility] Comment on above: Result Comment: AUTO MATED DIFFERENTIAL Performed By: #### 2 89179 #### [place] [id number] RBC 3.72 x 10EE6/UL Low 4.10 - 5.30 [facility] Comment on above: Performed By: #### 2 33318 #### [facility] [place] [address] WBC 4.8 x 10EE3/UL Normal 4.5 - 10.8 [facility] Comment on above: Performed By: #### 2 63556 #### [facility],[address] [place] [id number] CHEST 1 VIEWon 03-16-2023 CHEST 1 VIEW [place] [address] Patient: CASSIA HOLLAND Phone#: : 1965 Age: 57 Gender: F Pt. Type: ER Account: [id number] Location: [facility] Ordering: DR. MARYLU CHAUDHARY Exam Date: 03/16/2023/17:40 Family Phys: Charge Code: 543010 Physician: Grand Order #: [id number] Dose#: PROCEDURE: X-RAY CHEST 1 VIEW COMPARISON: None. INDICATIONS: Dyspnea. FINDINGS: LUNGS: Normal. No significant pulmonary parenchymal abnormalities. VASCULATURE: Normal. Unremarkable pulmonary vasculature. CARDIAC: Normal. No cardiac silhouette abnormality or cardiomegaly. MEDIASTINUM: Normal. No visible mass or adenopathy. PLEURA: Normal. No effusion or pleural thickening. BONES: Normal. No fracture or visible bony lesion. OTHER: Monitoring leads project across the thorax. CONCLUSION: No acute disease. Dictated by: Nancy Rene MD on 03/16/2023 at 17:51 Approved by: Nancy Rene MD on 03/16/2023 at 17:54 Normal [facility] CMP with eGFRon 03-16-2023 AGE 57 years Normal [facility] Comment on above: Performed By: #### 2 [id number] #### [facility],[address] [place] [address] Albumin [Mass/Vol] 3.8 g/dL Normal 3.4 - 5.0 [facility] Comment on above: Performed By: #### 2 [id number] #### [facility],[address] [place] [address] 13928 Albumin/Globulin [Mass ratio] 0.8 {ratio} Low 0.9 - 1.6 [facility] Comment on above: Performed By: #### 2 [id number] #### [facility],[address] [place] [address] 14515 ALK PHOS 129 U/L High 46 - 116 [facility] Comment on above: Performed By: #### 2 [id number] #### [facility],[address] [place] [address] 44107 ALT [Catalytic activity/Vol] 113 U/L High 14 - 59 [facility] Comment on above: Performed By: #### 2 [id number] #### [facility],[address] [place] [address] 64728 Anion gap [Moles/Vol] 19 mmol/L Normal 10 - 20 [facility] Comment on above: Performed By: #### 2 [id number] #### [facility],[address] [place] [address] 21324 AST [Catalytic activity/Vol] 92 U/L High 13 - 39 [facility] Comment on above: Performed By: #### 2 [id number] #### [facility],[address] [place] [address] 95290 B/C RATIO 31 ratio High 0 - 30 [facility] Comment on above: Performed By: #### 2 [id number] #### [facility],[address] [place] [address] 46737 Bilirubin [Mass/Vol] 0.5 mg/dL Normal 0.2 - 1.0 [facility] Comment on above: Performed By: #### 2 [id number] #### [facility],[address] [place] [address] 41354 Calcium [Mass/Vol] 9.1 mg/dL Normal 8.5 - 10.1 [facility] Comment on above: Performed By: #### 2 [id number] #### [facility],[address] [place] [address] Chloride [Moles/Vol] 89 mmol/L Low 98 - 107 [facility] Comment on above: Performed By: #### 2 [id number] #### [facility],[address] [place], [place] [id number] CMP with eGFR Normal [facility] Comment on above: Result Comment: COMP REHENSIVE METABOLIC PANEL Performed By: #### 2 [id number] #### [facility],[address] [place] [address] CO2 [Moles/Vol] 21.3 mmol/L Normal 21.0 - 32.0 [facility] Comment on above: Performed By: #### 2 [id number] #### [facility],[address] [place] [address] Creatinine [Mass/Vol] 0.68 mg/dL Normal 0.55 - 1.02 [facility] Comment on above: Performed By: #### 2 [id number] #### [facility],[address] [place] [address] GFR/1.73 sq M.predicted among non-blacks MDRD (S/P/Bld) [Vol rate/Area] mL/min/{1.73_m2} Normal 60 - 999 [facility] Comment on above: Performed By: #### 2 [id number] #### [facility],[address] [place] [address] Result Comment: ACCO RDING TO THE NATIONAL KIDNEY DISEASE EDUCATION PROGRAM(NKDE), A NORMAL eGFR IS A VALUE GREATER THAN OR EQUAL TO 60 ML/MIN/1.73 SQ METERS. CHRONIC KIDNEY DISEASE: <60mL/MIN/1.73 SQ METERS KIDNEY FAILURE: <15mL/MIN/1.73 SQ METERS THIS TEST SHOULD ONLY BE USED FOR PATIENTS 18 YEARS OF AGE AND OLDER. Globulin (S) [Mass/Vol] 4.6 g/dL High 1.5 - 3.8 [facility] Comment on above: Performed By: #### 2 [id number] #### [facility],[address] [place] [address] 05940 Glucose [Mass/Vol] 123 mg/dL High 74 - 106 [facility] Comment on above: Performed By: #### 2 [id number] #### [facility],[address] [place] [address] 80820 Potassium [Moles/Vol] 3.9 mmol/L Normal 3.5 - 5.1 [facility] Comment on above: Performed By: #### 2 [id number] #### [facility],[address] [place] [address] 30176 Protein [Mass/Vol] 8.4 g/dL High 6.4 - 8.2 [facility] Comment on above: Performed By: #### 2 [id number] #### [facility],[address] [place] [address] 94470 Sodium [Moles/Vol] 125 mmol/L Low 136 - 145 [facility] Comment on above: Performed By: #### 2 [id number] #### [facility],[address] [place] [address] 17498 Urea nitrogen [Mass/Vol] 21 mg/dL High 7 - 18 [facility] Comment on above: Performed By: #### 2 [id number] #### [facility],[address] [place] [address] 04315 TROPONIN I, HIGH SENSITIVITY on 03-16-2023 HS TROPONIN 5.0 pg/mL Normal 0.0 - 51.4 [facility] Comment on above: Performed By: #### 2 [id number] #### [facility],[address] [place] [address] 66854 TSHon 03-16-2023 TSH Qn 0.84 m[IU]/L Normal 0.35 - 3.74 [facility] Comment on above: Performed By: #### 2 [id number] #### [facility],[address] [place] [address] 40468 Gram stain for investigation of transfusion reactionOrdered By: Wilder Anguiano on 03-12-2023 Microscopic observation Gram stain Nom (Unsp spec) [facility] Influenza virus A and B RNA and SARS-CoV-2 (COVID-19) N gene panel CAROLINA+probe (Resp)on 03-12-2023 FLUAV RNA CAROLINA+probe Ql (Unsp spec) Not detected Not Detected [facility] FLUBV RNA CAROLINA+probe Ql (Unsp spec) Not detected Not Detected [facility] SARS-CoV-2 (COVID-19) RNA CAROLINA+probe Ql (Resp) Not detected See comment [facility] No Panel InformationOrdered By: Wilder Anguiano on 03-12-2023 Nasopharyngeal Culture Pseudomonas aeruginosa [facility] HbA1c (Bld)on 02-28-2023 Average glucose Estimated from glycated hemoglobin (Bld) [Mass/Vol] 134 mg/dL [facility] HbA1c (Bld) [Mass fraction] 6.3 % High 4.3 - 5.6 % [facility] MAGNESIUM BLDon 02-28-2023 Magnesium [Mass/Vol] 1.7 mg/dL 1.7 - 2 .3 mg/dL [facility] T4 FREE/FREE THYROXon 2022 Free T4 [Mass/Vol] 1.5 ng/dL 0.9 - 1.7 ng/dL [facility] TSH BLDon 02-28-2023 TSH Qn 0.572 m[IU]/L 0.270 - 4.200 mIU/L [facility] Absolute lymphocyte countOrd ered By: Cassia Grover on 02-27-2023 Lymphocytes Auto (Unsp spec) [#/Vol] 1.03 10*3/uL 0.83-4.51 [facility] Basophil percentageOrdered B y: Cassia Grover on 02-27-2023 Basophils/100 WBC (Bld) 0.3 % 0-1 [facility] Bilirubin [Mass/Vol] 0.30 mg/dL 0.20-1.00 [facility] Comment on above: For patients on eltr ombopag therapy, use of Dimension [place] TBIL is not recommended. Chloride [Moles/Vol] 99 mmol/L 98-107 [facility] Eosinophils/100 WBC (Bld) 3.6 % 0-5 [facility] Glucose [Mass/Vol] 119 mg/dL 74-106 [facility] Comment on above: Fasting Glucose resu lt from 100 to 125 mg/dL suggests IMPAIRED HOMEOSTASIS per A.D.A. criteria. Neutrophils (Bld) [#/Vol] 2.0 10*3/uL 2.0-7.7 [facility] Neutrophils/100 WBC (Bld) 54.0 % 47-70 [facility] Potassium [Moles/Vol] 3.8 mmol/L 3.5-5.1 [facility] Protein [Mass/Vol] 7.5 g/dL 6.4-8.2 [facility] Sodium [Moles/Vol] 132 mmol/L 136-145 [facility] WBC (Bld) [#/Vol] 3.6 10*3/uL 4.4-11.0 [facility] Blood erythrocytes count (nu mber/volume)Ordered By: Cassia Grover on 02-27-2023 RBC (Bld) [#/Vol] 3.39 10*6/uL 4.2-5.4 [facility] Blood hemoglobin measurement (mass/volume)Ordered By: Cassia Grover on 02-27-2023 Hemoglobin (Bld) [Mass/Vol] 10.3 g/dL 12.0-15.0 [facility] Blood lymphocytes/100 leukoc ytesOrdered By: Cassia Grover on 02-27-2023 Lymphocytes/100 WBC (Bld) 28.5 % 19-41 [facility] Blood monocytes/100 leukocyt esOrdered By: Cassia Grover on 02-27-2023 Monocytes/100 WBC (Bld) 13.3 % 0-10 [facility] Blood platelet mean volumeOr dered By: Cassia Grover on 02-27-2023 Platelet mean volume (Bld) [Entitic vol] 12.7 fL 6.2-12.0 [facility] Determination of erythrocyte mean corpuscular volume (MCV)Ordered By: Cassia Grover on 02-27-2023 MCV (RBC) [Entitic vol] 91.4 fL 81-99 [facility] Direct bilirubinOrdered By: Cassia Grover on 02-27-2023 Bilirubin.direct [Mass/Vol] 0.14 mg/dL 0.00-0.30 [facility] Hematocrit Auto (Bld) [Volum e fraction]Ordered By: Cassia Grover on 02-27-2023 Hematocrit (Bld) [Volume fraction] 31.0 % 37-47 [facility] Laboratory - Chemistry and C hemistry - challengeOrdered By: Cassia Grover on 02-27-2023 ALP [Catalytic activity/Vol] 108 U/L 45-117 [facility] ALT [Catalytic activity/Vol] 110 U/L 13-56 [facility] CO2 [Moles/Vol] 22.0 mmol/L 21.0-32.0 [facility] Globulin (S) [Mass/Vol] 4.1 g/dL 2.2-4.2 [facility] Lipase [Catalytic activity/Vol] 89 U/L - [facility] Comment on above: Please note:LIPASE r evised reference range effective 22. New Lipase methodology. Expected to produce lower values than the previous assay method. NEW Reference Range: 13 - 75 U/L Urea nitrogen/Creatinine [Mass ratio] 19.7 mg/mg 10-20 [facility] Laboratory - Hematology and Cell countsOrdered By: Cassia Grover on 02-27-2023 Erythrocyte distribution width (RBC) [Entitic vol] 45.7 fL 35.1-43.9 [facility] Erythrocyte distribution width (RBC) [Ratio] 13.5 % 11.6-14.6 [facility] Immature granulocytes/100 WBC (Bld) 0.300 % 0.0-0.9 [facility] Comment on above: IG% - Immature Granu locytes (promyelocytes, myelocytes and metamyelocytes) > 1% indicates that a LEFT SHIFT is Present. MCH (RBC) [Entitic mass] 30.4 pg 27.0-32.0 [facility] Nucleated RBC/100 WBC (Bld) [Ratio] 0 % 0-5 [facility] MCHC Auto (RBC) [Mass/Vol]Or dered By: Cassia Grover on 02-27-2023 MCHC (RBC) [Mass/Vol] 33.2 g/dL 32-36 [facility] No Panel InformationOrdered By: Cassia Grover on 02-27-2023 Troponin I High Sensitivity 5 pg/mL 3.0-54.0 [facility] Comment on above: Please Note: New Vani t Units and Gender Specific Reference Ranges. For more information see Policy Stat Procedure [place] High Sensitivity Troponin (TNIH) and attachments. Estimated Creatinine Clearance Calc 59.70 ml/min [facility] Estimated GFR (MDRD) Amer 87 mL/min >60 [facility] Comment on above: GFR Calc Estimated GFR (MDRD) Non-Af Amer 72 mL/min >60 [facility] Comment on above: Non- GFR Calc Platelets bldOrdered By: Whit Grover on 02-27-2023 Platelets (Bld) [#/Vol] 135 10*3/uL 150-450 [facility] Serum or plasma albumin hailee urement (mass/volume)Ordered By: Cassia Grover on 02-27-2023 Albumin [Mass/Vol] 3.4 g/dL 3.2-5.0 [facility] Serum or plasma calcium hailee urement (mass/volume)Ordered By: Cassia Grover on 02-27-2023 Calcium [Mass/Vol] 8.4 mg/dL 8.5-10.1 [facility] Serum or plasma creatinine m easurement (mass/volume)Ordered By: Cassia Grover on 02-27-2023 Creatinine [Mass/Vol] 0.86 mg/dL 0.55-1.02 [facility] Comment on above: The validity of the calculated GFR & GFRAA in patients over 70 years has not been determined. Clinical correlation is essential. Serum or plasma urea nitroge n measurement (mass/volume)Ordered By: Cassia Grover on 02-27-2023 Urea nitrogen [Mass/Vol] 17 mg/dL 7-18 [facility] Thin prep Papanicolaou smear with manual screeningOrdered By: Cassia Grover on 02-27-2023 Thin prep Papanicolaou smear with manual screening 112 U/L 15-37 [facility] Thin prep Papanicolaou smear with manual screening 11 5-15 [facility] Gram stain for investigation of transfusion reactionOrdered By: Wilder Anguiano on 02-12-2023 Microscopic observation Gram stain Nom (Unsp spec) [facility] No Panel InformationOrdered By: Wilder Anguiano on 02-12-2023 Nasopharyngeal Culture Pseudomonas aeruginosa [facility] Basophil percentageOrdered B y: Alicia Manzano on 01-24-2023 Bilirubin [Mass/Vol] 0.60 mg/dL 0.20-1.00 [facility] Comment on above: For patients on eltr ombopag therapy, use of Dimension [place] TBIL is not recommended. Chloride [Moles/Vol] 103 mmol/L 98-107 [facility] Cholesterol [Mass/Vol] 167 mg/dL <200 [facility] Comment on above: <200 mg/dL Desirable 200-240 mg/dL Borderline >240 mg/dL High Risk Glucose [Mass/Vol] 219 mg/dL 74-106 [facility] Comment on above: Glucose result great er than or equal to 200 mg/dLsuggests DIABETES MELLITUS per A.D.A. criteria. Potassium [Moles/Vol] 4.1 mmol/L 3.5-5.1 [facility] Comment on above: Slight Hemolysis, Re sult may be falsely increased. Protein [Mass/Vol] 7.6 g/dL 6.4-8.2 [facility] Sodium [Moles/Vol] 134 mmol/L 136-145 [facility] Triglyceride [Mass/Vol] 126 mg/dL <199 [facility] Comment on above: The drugs N-Acetylcy steine and Metamizole may falsely depress this assay.Serum Triglycerides Reference Interval Normal <150 mg/dL Borderline high 150 - 199 mg/dL High 200 - 499 mg/dL Very High > or = 500 mg/dL WBC (Bld) [#/Vol] 3.9 10*3/uL 4.4-11.0 [facility] Blood erythrocytes count (nu mber/volume)Ordered By: Alicia Manzano on 01-24-2023 RBC (Bld) [#/Vol] 3.33 10*6/uL 4.2-5.4 [facility] Blood hemoglobin measurement (mass/volume)Ordered By: Alicia Manzano on 01-24-2023 Hemoglobin (Bld) [Mass/Vol] 10.8 g/dL 12.0-15.0 [facility] Blood platelet mean volumeOr dered By: Alicia Manzano on 01-24-2023 Platelet mean volume (Bld) [Entitic vol] 11.4 fL 6.2-12.0 [facility] Determination of erythrocyte mean corpuscular volume (MCV)Ordered By: Alicia Manzano on 01-24-2023 MCV (RBC) [Entitic vol] 95.2 fL 81-99 [facility] Hematocrit Auto (Bld) [Volum e fraction]Ordered By: Alicia Manzano on 01-24-2023 Hematocrit (Bld) [Volume fraction] 31.7 % 37-47 [facility] INR in Blood by Coagulation assayOrdered By: Alicia Manzano on 01-24-2023 INR Coag (Bld) [Relative time] 1.0 {INR} [facility] Laboratory - Chemistry and C hemistry - challengeOrdered By: Alicialatoya Manzano on 01-24-2023 ALP [Catalytic activity/Vol] 112 U/L 45-117 [facility] ALT [Catalytic activity/Vol] 179 U/L 13-56 [facility] CO2 [Moles/Vol] 25.0 mmol/L 21.0-32.0 [facility] Globulin (S) [Mass/Vol] 4.2 g/dL 2.2-4.2 [facility] Urea nitrogen/Creatinine [Mass ratio] 16.8 mg/mg 10-20 [facility] Laboratory - CoagulationOrde red By: Alicia Manzano on 01-24-2023 aPTT Coag (Bld) [Time] 29.1 s 24.1-36.2 [facility] PT Coag (PPP) [Time] 13.6 s 11.7-14.9 [facility] Laboratory - Hematology and Cell countsOrdered By: Alicialatoya Manzano on 01-24-2023 Erythrocyte distribution width (RBC) [Entitic vol] 49.5 fL 35.1-43.9 [facility] Erythrocyte distribution width (RBC) [Ratio] 14.3 % 11.6-14.6 [facility] MCH (RBC) [Entitic mass] 32.4 pg 27.0-32.0 [facility] MCHC Auto (RBC) [Mass/Vol]Or dered By: Alicia Manzano on 01-24-2023 MCHC (RBC) [Mass/Vol] 34.1 g/dL 32-36 [facility] No Panel InformationOrdered By: Alicia Manzano on 01-24-2023 Estimated GFR (MDRD) Amer 108 mL/min >60 [facility] Comment on above: GFR Calc Estimated GFR (MDRD) Non-Af Amer 89 mL/min >60 [facility] Comment on above: Non- GFR Calc Platelets bldOrdered By: Yanet Manzano on 01-24-2023 Platelets (Bld) [#/Vol] 146 10*3/uL 150-450 [facility] Serum or plasma albumin hailee urement (mass/volume)Ordered By: Alicia Manzano on 01-24-2023 Albumin [Mass/Vol] 3.4 g/dL 3.2-5.0 [facility] Serum or plasma albumin/glob ulin mass ratioOrdered By: Alicia Manzano on 01-24-2023 Albumin/Globulin [Mass ratio] 0.8 {ratio} 0.9-2.4 [facility] Serum or plasma calcium hailee urement (mass/volume)Ordered By: Alicia Manzano on 01-24-2023 Calcium [Mass/Vol] 8.8 mg/dL 8.5-10.1 [facility] Serum or plasma cholesterol in HDL measurement (mass/volume)Ordered By: Alicia Manzano on 01-24-2023 Cholesterol in HDL [Mass/Vol] 38 mg/dL >40 [facility] Comment on above: The drugs N-Acetylcy steine and Metamizole may falsely depress this assay. Reference Range HDL <40 mg/dL Low HDL Cholesterol HDL >or= 60 mg/dL High HDL Cholesterol Serum or plasma cholesterol in VLDL measurement (mass/volume)Ordered By: Alicia Manzano on 01-24-2023 Cholesterol in VLDL [Mass/Vol] 25 mg/dL 5-40 [facility] Serum or plasma creatinine m easurement (mass/volume)Ordered By: Alicia Manzano on 01-24-2023 Creatinine [Mass/Vol] 0.72 mg/dL 0.55-1.02 [facility] Comment on above: The validity of the calculated GFR & GFRAA in patients over 70 years has not been determined. Clinical correlation is essential. Serum or plasma low density lipoprotein (LDL) cholesterol measurement (mass/volume)Ordered By: Alicia Manzano on 01-24-2023 Cholesterol in LDL [Mass/Vol] 104 mg/dL 0-130 [facility] Serum or plasma urea nitroge n measurement (mass/volume)Ordered By: Aliica Manzano on 01-24-2023 Urea nitrogen [Mass/Vol] 12 mg/dL 7-18 [facility] Thin prep Papanicolaou smear with manual screeningOrdered By: Alicia Manzano on 01-24-2023 Thin prep Papanicolaou smear with manual screening 168 U/L 15-37 [facility] Comment on above: Slight Hemolysis, Re sult may be falsely increased. Thin prep Papanicolaou smear with manual screening 6 5-15 [facility] Absolute lymphocyte countOrd ered By: Meg Painting on 01-16-2023 Lymphocytes Auto (Unsp spec) [#/Vol] 1.42 10*3/uL 0.83-4.51 [facility] Basophil percentageOrdered B y: Meg Painting on 01-16-2023 Basophils/100 WBC (Bld) 0.4 % 0-1 [facility] Eosinophils/100 WBC (Bld) 3.8 % 0-5 [facility] Neutrophils (Bld) [#/Vol] 2.4 10*3/uL 2.0-7.7 [facility] Neutrophils/100 WBC (Bld) 53.7 % 47-70 [facility] WBC (Bld) [#/Vol] 4.5 10*3/uL 4.4-11.0 [facility] Blood erythrocytes count (nu mber/volume)Ordered By: Meg Painting on 01-16-2023 RBC (Bld) [#/Vol] 3.51 10*6/uL 4.2-5.4 [facility] Blood hemoglobin measurement (mass/volume)Ordered By: Meg Painting on 01-16-2023 Hemoglobin (Bld) [Mass/Vol] 11.0 g/dL 12.0-15.0 [facility] Blood lymphocytes/100 leukoc ytesOrdered By: Meg Painting on 01-16-2023 Lymphocytes/100 WBC (Bld) 31.8 % 19-41 [facility] Blood monocytes/100 leukocyt esOrdered By: Meg Painting on 01-16-2023 Monocytes/100 WBC (Bld) 9.9 % 0-10 [facility] Blood platelet mean volumeOr dered By: Meg Painting on 01-16-2023 Platelet mean volume (Bld) [Entitic vol] 11.5 fL 6.2-12.0 [facility] Determination of erythrocyte mean corpuscular volume (MCV)Ordered By: Meg Painting on 01-16-2023 MCV (RBC) [Entitic vol] 94.3 fL 81-99 [facility] Hematocrit Auto (Bld) [Volum e fraction]Ordered By: Meg Painting on 01-16-2023 Hematocrit (Bld) [Volume fraction] 33.1 % 37-47 [facility] Laboratory - Hematology and Cell countsOrdered By: Meg Painting on 01-16-2023 Erythrocyte distribution width (RBC) [Entitic vol] 47.0 fL 35.1-43.9 [facility] Erythrocyte distribution width (RBC) [Ratio] 13.7 % 11.6-14.6 [facility] Immature granulocytes/100 WBC (Bld) 0.400 % 0.0-0.9 [facility] Comment on above: IG% - Immature Granu locytes (promyelocytes, myelocytes and metamyelocytes) > 1% indicates that a LEFT SHIFT is Present. MCH (RBC) [Entitic mass] 31.3 pg 27.0-32.0 [facility] Nucleated RBC/100 WBC (Bld) [Ratio] 0 % 0-5 [facility] MCHC Auto (RBC) [Mass/Vol]Or dered By: Meg Painting on 01-16-2023 MCHC (RBC) [Mass/Vol] 33.2 g/dL 32-36 [facility] Platelets bldOrdered By: Alix Painting on 01-16-2023 Platelets (Bld) [#/Vol] 141 10*3/uL 150-450 [facility] Absolute lymphocyte countOrd ered By: Placido Albrecht on 12-31-2022 Lymphocytes Auto (Unsp spec) [#/Vol] 1.40 10*3/uL 0.83-4.51 [facility] Basophil percentageOrdered B y: Placido Albrecht on 12-31-2022 Basophil percentage 50-100 SEEN /hpf 0-5 [facility] Basophils/100 WBC (Bld) 0.2 % 0-1 [facility] Chloride [Moles/Vol] 100 mmol/L 98-107 [facility] Eosinophils/100 WBC (Bld) 1.1 % 0-5 [facility] Glucose [Mass/Vol] 191 mg/dL 74-106 [facility] Comment on above: Fasting Glucose resu lt greater than or equal to 126 mg/dL suggests DIABETES MELLITUS per A.D.A. criteria. Neutrophils (Bld) [#/Vol] 3.5 10*3/uL 2.0-7.7 [facility] Neutrophils/100 WBC (Bld) 62.9 % 47-70 [facility] Potassium [Moles/Vol] 4.0 mmol/L 3.5-5.1 [facility] Comment on above: Moderate Hemolysis, Result may be falsely increased. Sodium [Moles/Vol] 131 mmol/L 136-145 [facility] WBC (Bld) [#/Vol] 5.5 10*3/uL 4.4-11.0 [facility] Bilirubin Test strip Ql (U)O rdered By: Placido Albrecht on 12-31-2022 Bilirubin Ql (U) Negative Negative [facility] Blood erythrocytes count (nu mber/volume)Ordered By: Placido Albrecht on 12-31-2022 RBC (Bld) [#/Vol] 3.92 10*6/uL 4.2-5.4 [facility] Blood hemoglobin measurement (mass/volume)Ordered By: Placido Albrecht on 12-31-2022 Hemoglobin (Bld) [Mass/Vol] 12.1 g/dL 12.0-15.0 [facility] Blood lymphocytes/100 leukoc ytesOrdered By: Placido Albrecht on 12-31-2022 Lymphocytes/100 WBC (Bld) 25.4 % 19-41 [facility] Blood monocytes/100 leukocyt esOrdered By: Placido Albrecht on 12-31-2022 Monocytes/100 WBC (Bld) 10.0 % 0-10 [facility] Blood platelet mean volumeOr dered By: Placido Albrceht on 12-31-2022 Platelet mean volume (Bld) [Entitic vol] 12.2 fL 6.2-12.0 [facility] Culture, urineOrdered By: Marcelo Albrecht on 12-31-2022 Bacteria identified Cx Nom (U) Proteus mirabilis [facility] Bacteria identified Cx Nom (U) Proteus mirabilis [facility] Determination of erythrocyte mean corpuscular volume (MCV)Ordered By: Placido Albrecht on 12-31-2022 MCV (RBC) [Entitic vol] 94.4 fL 81-99 [facility] Hematocrit Auto (Bld) [Volum e fraction]Ordered By: Placido Albrecht on 12-31-2022 Hematocrit (Bld) [Volume fraction] 37.0 % 37-47 [facility] Ketones Test strip Ql (U)Ord ered By: Placido Albrecht on 12-31-2022 Ketones Ql (U) Negative Negative [facility] Laboratory - Chemistry and C hemistry - challengeOrdered By: Placido Albrecht on 12-31-2022 CO2 [Moles/Vol] 23.0 mmol/L 21.0-32.0 [facility] Urea nitrogen/Creatinine [Mass ratio] 16.4 mg/mg 10-20 [facility] Laboratory - Hematology and Cell countsOrdered By: Placido Albrecht on 12-31-2022 Erythrocyte distribution width (RBC) [Entitic vol] 48.8 fL 35.1-43.9 [facility] Erythrocyte distribution width (RBC) [Ratio] 14.2 % 11.6-14.6 [facility] Immature granulocytes/100 WBC (Bld) 0.400 % 0.0-0.9 [facility] Comment on above: IG% - Immature Granu locytes (promyelocytes, myelocytes and metamyelocytes) > 1% indicates that a LEFT SHIFT is Present. MCH (RBC) [Entitic mass] 30.9 pg 27.0-32.0 [facility] Nucleated RBC/100 WBC (Bld) [Ratio] 0 % 0-5 [facility] MCHC Auto (RBC) [Mass/Vol]Or dered By: Placido Albrecht on 12-31-2022 MCHC (RBC) [Mass/Vol] 32.7 g/dL 32-36 [facility] Mucus LM Ql (Urine sed)Order ed By: Placido Albrecht on 12-31-2022 Mucus Ql (Urine sed) 0 SEEN /hpf [facility] Nitrite Test strip Ql (U)Ord ered By: Placido Albrecht on 12-31-2022 Nitrite Ql (U) Positive Negative [facility] No Panel InformationOrdered By: Placido Albrecht on 12-31-2022 Troponin I High Sensitivity 35 pg/mL 3.0-54.0 [facility] Comment on above: Please Note: New Vani t Units and Gender Specific Reference Ranges. For more information see Policy Stat Procedure [place] High Sensitivity Troponin (TNIH) and attachments. Estimated Creatinine Clearance Calc 64.99 ml/min [facility] Estimated GFR (MDRD) Amer 96 mL/min >60 [facility] Comment on above: GFR Calc Estimated GFR (MDRD) Non-Af Amer 79 mL/min >60 [facility] Comment on above: Non- GFR Calc Platelets bldOrdered By: Bacilio Albrecht on 12-31-2022 Platelets (Bld) [#/Vol] 121 10*3/uL 150-450 [facility] Protein Test strip Ql (U)Ord ered By: Placido Albrecht on 12-31-2022 Protein Ql (U) 15 mg/dl Negative [facility] Serum or plasma calcium hailee urement (mass/volume)Ordered By: Placido Albrecht on 12-31-2022 Calcium [Mass/Vol] 8.7 mg/dL 8.5-10.1 [facility] Serum or plasma creatinine m easurement (mass/volume)Ordered By: Placido Albrecht on 12-31-2022 Creatinine [Mass/Vol] 0.79 mg/dL 0.55-1.02 [facility] Comment on above: The validity of the calculated GFR & GFRAA in patients over 70 years has not been determined. Clinical correlation is essential. Serum or plasma urea nitroge n measurement (mass/volume)Ordered By: Placido Albrecht on 12-31-2022 Urea nitrogen [Mass/Vol] 13 mg/dL 7-18 [facility] Squamous epithelial cells de tection in urine sediment by light microscopyOrdered By: Placido Albrecht on 12-31-2022 Epithelial cells.squamous LM Ql (Urine sed) 0-5 SEEN /hpf 5-10 [facility] Thin prep Papanicolaou smear with manual screeningOrdered By: Placido Albrecht on 12-31-2022 Thin prep Papanicolaou smear with manual screening 8 5-15 [facility] Urine blood detectionOrdered By: Placido Albrecht on 12-31-2022 RBC Ql (U) 10 /ul Negative [facility] RBC Ql (U) 0 SEEN /hpf 0-5 [facility] Urine clarityOrdered By: Bacilio Albrecht on 12-31-2022 Clarity (U) Sl. Cloudy Clear [facility] Urine color determinationOrd ered By: Placido Albrecht on 12-31-2022 Color (U) Yellow Yellow [facility] Urine glucose detectionOrder ed By: Placido Albrecht on 12-31-2022 Glucose Ql (U) 250 mg/dl Normal [facility] Urine leukocyte esterase det ection by dipstickOrdered By: Placido Albrecht on 12-31-2022 Leukocyte esterase Test strip Ql (U) 500 /ul Negative [facility] Urine pHOrdered By: Placido mike on 12-31-2022 pH (U) 8.0 [pH] 5.0 - 8.0 [facility] Urine sediment bacteria coun t by microscopy (number/high power field)Ordered By: Placido Albrecht on 12-31-2022 Bacteria LM.HPF (Urine sed) [#/Area] 2 /[HPF] None Seen [facility] Urine specific gravity measu rementOrdered By: Placido Albrecht on 12-31-2022 Specific gravity (U) [Rel density] 1.010 1.002-1.03 0 [facility] Urobilinogen Auto test strip Ql (U)Ordered By: Placido Albrecht on 12-31-2022 Urobilinogen Ql (U) 1 mg/dl Normal [facility] Basophil percentageOrdered B y: Alicia Manzano on 12-28-2022 Bilirubin [Mass/Vol] 0.60 mg/dL 0.20-1.00 [facility] Comment on above: For patients on eltr ombopag therapy, use of Dimension [place] TBIL is not recommended. Chloride [Moles/Vol] 107 mmol/L 98-107 [facility] Glucose [Mass/Vol] 131 mg/dL 74-106 [facility] Comment on above: Fasting Glucose resu lt greater than or equal to 126 mg/dL suggests DIABETES MELLITUS per A.D.A. criteria. Potassium [Moles/Vol] 4.0 mmol/L 3.5-5.1 [facility] Protein [Mass/Vol] 6.5 g/dL 6.4-8.2 [facility] Sodium [Moles/Vol] 138 mmol/L 136-145 [facility] WBC (Bld) [#/Vol] 3.3 10*3/uL 4.4-11.0 [facility] Blood erythrocytes count (nu mber/volume)Ordered By: Alicia Manzano on 12-28-2022 RBC (Bld) [#/Vol] 3.56 10*6/uL 4.2-5.4 [facility] Blood hemoglobin measurement (mass/volume)Ordered By: Alicia Manzano on 12-28-2022 Hemoglobin (Bld) [Mass/Vol] 11.2 g/dL 12.0-15.0 [facility] Blood platelet mean volumeOr dered By: Alicia Manzano on 12-28-2022 Platelet mean volume (Bld) [Entitic vol] 11.7 fL 6.2-12.0 [facility] Determination of erythrocyte mean corpuscular volume (MCV)Ordered By: Alicia Manzano on 12-28-2022 MCV (RBC) [Entitic vol] 94.9 fL 81-99 [facility] Hematocrit Auto (Bld) [Volum e fraction]Ordered By: Alicia Manzano on 12-28-2022 Hematocrit (Bld) [Volume fraction] 33.8 % 37-47 [facility] Laboratory - Chemistry and C hemistry - challengeOrdered By: Alicialatoya Manzano on 12-28-2022 ALP [Catalytic activity/Vol] 97 U/L 45-117 [facility] ALT [Catalytic activity/Vol] 120 U/L 13-56 [facility] CO2 [Moles/Vol] 25.0 mmol/L 21.0-32.0 [facility] Globulin (S) [Mass/Vol] 3.5 g/dL 2.2-4.2 [facility] Urea nitrogen/Creatinine [Mass ratio] 16.7 mg/mg 10-20 [facility] - Hematology and Cell countsOrdered By: Alicia Manzano on 12-28-2022 Erythrocyte distribution width (RBC) [Entitic vol] 49.0 fL 35.1-43.9 [facility] Erythrocyte distribution width (RBC) [Ratio] 14.1 % 11.6-14.6 [facility] MCH (RBC) [Entitic mass] 31.5 pg 27.0-32.0 [facility] MCHC Auto (RBC) [Mass/Vol]Or dered By: Alicia Manzano on 12-28-2022 MCHC (RBC) [Mass/Vol] 33.1 g/dL 32-36 [facility] No Panel InformationOrdered By: Alicia Manzano on 12-28-2022 Estimated Creatinine Clearance Calc 106.97 ml/min [facility] Estimated GFR (MDRD) Amer 171 mL/min >60 [facility] Comment on above: GFR Calc Estimated GFR (MDRD) Non-Af Amer 142 mL/min >60 [facility] Comment on above: Non- GFR Calc Platelets bldOrdered By: Yanet Manzano on 12-28-2022 Platelets (Bld) [#/Vol] 105 10*3/uL 150-450 [facility] Serum or plasma albumin hailee urement (mass/volume)Ordered By: Alicia Manzano on 12-28-2022 Albumin [Mass/Vol] 3.0 g/dL 3.2-5.0 [facility] Serum or plasma albumin/glob ulin mass ratioOrdered By: Alicia Manzano on 12-28-2022 Albumin/Globulin [Mass ratio] 0.9 {ratio} 0.9-2.4 [facility] Serum or plasma calcium hailee urement (mass/volume)Ordered By: Alicia Manzano on 12-28-2022 Calcium [Mass/Vol] 8.5 mg/dL 8.5-10.1 [facility] Serum or plasma creatinine m easurement (mass/volume)Ordered By: Alicia Manzano on 12-28-2022 Creatinine [Mass/Vol] 0.48 mg/dL 0.55-1.02 [facility] Comment on above: The validity of the calculated GFR & GFRAA in patients over 70 years has not been determined. Clinical correlation is essential. Serum or plasma urea nitroge n measurement (mass/volume)Ordered By: Alicia Manzano on 12-28-2022 Urea nitrogen [Mass/Vol] 8 mg/dL 7-18 [facility] Thin prep Papanicolaou smear with manual screeningOrdered By: Alicialatoya Manzano on 12-28-2022 Thin prep Papanicolaou smear with manual screening 98 U/L 15-37 [facility] Thin prep Papanicolaou smear with manual screening 6 5-15 [facility] No Panel InformationOrdered By: Alicia Manzano on 12-27-2022 Activated Clotting Time 239 sec 74-137 [facility] Absolute lymphocyte countOrd ered By: Chanel Saleh on 11-27-2022 Lymphocytes Auto (Unsp spec) [#/Vol] 1.81 10*3/uL 0.83-4.51 [facility] Basophil percentageOrdered B y: Chanel Saleh on 11-27-2022 Basophil percentage 0-5 SEEN /hpf 0-5 [facility] Basophils/100 WBC (Bld) 0.3 % 0-1 [facility] Bilirubin [Mass/Vol] 0.60 mg/dL 0.20-1.00 [facility] Comment on above: For patients on eltr ombopag therapy, use of Dimension [place] TBIL is not recommended. Chloride [Moles/Vol] 101 mmol/L 98-107 [facility] Eosinophils/100 WBC (Bld) 2.0 % 0-5 [facility] Glucose [Mass/Vol] 98 mg/dL 74-106 [facility] Lactate [Moles/Vol] 1.7 mmol/L 0.4-2.0 [facility] Neutrophils (Bld) [#/Vol] 1.6 10*3/uL 2.0-7.7 [facility] Neutrophils/100 WBC (Bld) 40.8 % 47-70 [facility] Potassium [Moles/Vol] 3.6 mmol/L 3.5-5.1 [facility] Protein [Mass/Vol] 7.6 g/dL 6.4-8.2 [facility] Sodium [Moles/Vol] 132 mmol/L 136-145 [facility] WBC (Bld) [#/Vol] 4.0 10*3/uL 4.4-11.0 [facility] Bilirubin Test strip Ql (U)O rdered By: Chanel Saleh on 11-27-2022 Bilirubin Ql (U) Negative Negative [facility] Blood erythrocytes count (nu mber/volume)Ordered By: Chanel Saleh on 11-27-2022 RBC (Bld) [#/Vol] 3.88 10*6/uL 4.2-5.4 [facility] Blood hemoglobin measurement (mass/volume)Ordered By: Chanel Saleh on 11-27-2022 Hemoglobin (Bld) [Mass/Vol] 12.1 g/dL 12.0-15.0 [facility] Blood lymphocytes/100 leukoc ytesOrdered By: Chanel Saleh on 11-27-2022 Lymphocytes/100 WBC (Bld) 45.8 % 19-41 [facility] Blood monocytes/100 leukocyt esOrdered By: Chanel Saleh on 11-27-2022 Monocytes/100 WBC (Bld) 10.6 % 0-10 [facility] Blood platelet mean volumeOr dered By: Chanel Saleh on 11-27-2022 Platelet mean volume (Bld) [Entitic vol] 12.1 fL 6.2-12.0 [facility] Determination of erythrocyte mean corpuscular volume (MCV)Ordered By: Chanel Saleh on 11-27-2022 MCV (RBC) [Entitic vol] 93.3 fL 81-99 [facility] Hematocrit Auto (Bld) [Volum e fraction]Ordered By: Chanel Saleh on 11-27-2022 Hematocrit (Bld) [Volume fraction] 36.2 % 37-47 [facility] Ketones Test strip Ql (U)Ord ered By: Chanel Saleh on 07-24-2023 Ketones Ql (U) Negative Negative [facility] Laboratory - Chemistry and C hemistry - challengeOrdered By: Chanel Saleh on 11-27-2022 ALP [Catalytic activity/Vol] 123 U/L 45-117 [facility] ALT [Catalytic activity/Vol] 167 U/L 13-56 [facility] CO2 [Moles/Vol] 25.0 mmol/L 21.0-32.0 [facility] Globulin (S) [Mass/Vol] 4.1 g/dL 2.2-4.2 [facility] Lipase [Catalytic activity/Vol] 161 U/L 13-75 [facility] Comment on above: Please note:LIPASE r evised reference range effective 22. New Lipase methodology. Expected to produce lower values than the previous assay method. NEW Reference Range: 13 - 75 U/L Urea nitrogen/Creatinine [Mass ratio] 13.5 mg/mg 10-20 [facility] Laboratory - Hematology and Cell countsOrdered By: Chanel Saleh on 11-27-2022 Erythrocyte distribution width (RBC) [Entitic vol] 45.4 fL 35.1-43.9 [facility] Erythrocyte distribution width (RBC) [Ratio] 13.5 % 11.6-14.6 [facility] Immature granulocytes/100 WBC (Bld) 0.500 % 0.0-0.9 [facility] Comment on above: IG% - Immature Granu locytes (promyelocytes, myelocytes and metamyelocytes) > 1% indicates that a LEFT SHIFT is Present. MCH (RBC) [Entitic mass] 31.2 pg 27.0-32.0 [facility] Nucleated RBC/100 WBC (Bld) [Ratio] 0 % 0-5 [facility] MCHC Auto (RBC) [Mass/Vol]Or dered By: Chanel Saleh on 11-27-2022 MCHC (RBC) [Mass/Vol] 33.4 g/dL 32-36 [facility] Mucus LM Ql (Urine sed)Order ed By: Chanel Saleh on 11-27-2022 Mucus Ql (Urine sed) 0 SEEN /hpf [facility] Nitrite Test strip Ql (U)Ord ered By: Chanel Saleh on 11-27-2022 Nitrite Ql (U) Negative Negative [facility] No Panel InformationOrdered By: Chanel Delfino on 11-27-2022 Estimated Creatinine Clearance Calc 69.38 ml/min [facility] Estimated GFR (MDRD) Amer 104 mL/min >60 [facility] Comment on above: GFR Calc Estimated GFR (MDRD) Non-Af Amer 86 mL/min >60 [facility] Comment on above: Non- GFR Calc Platelets bldOrdered By: Shannan wood Delfino on 11-27-2022 Platelets (Bld) [#/Vol] 138 10*3/uL 150-450 [facility] Protein Test strip Ql (U)Ord ered By: Chanel Delfino on 11-27-2022 Protein Ql (U) Negative Negative [facility] Serum or plasma albumin hailee urement (mass/volume)Ordered By: Chanel Delfino on 11-27-2022 Albumin [Mass/Vol] 3.5 g/dL 3.2-5.0 [facility] Serum or plasma albumin/glob ulin mass ratioOrdered By: Chanel Delfino on 11-27-2022 Albumin/Globulin [Mass ratio] 0.9 {ratio} 0.9-2.4 [facility] Serum or plasma calcium hailee urement (mass/volume)Ordered By: Chanel Delfino on 11-27-2022 Calcium [Mass/Vol] 8.7 mg/dL 8.5-10.1 [facility] Serum or plasma creatinine m easurement (mass/volume)Ordered By: Chanel Delfino on 11-27-2022 Creatinine [Mass/Vol] 0.74 mg/dL 0.55-1.02 [facility] Comment on above: The validity of the calculated GFR & GFRAA in patients over 70 years has not been determined. Clinical correlation is essential. Serum or plasma urea nitroge n measurement (mass/volume)Ordered By: Chanel Delfino on 11-27-2022 Urea nitrogen [Mass/Vol] 10 mg/dL 7-18 [facility] Squamous epithelial cells de tection in urine sediment by light microscopyOrdered By: Chanel Saleh on 11-27-2022 Epithelial cells.squamous LM Ql (Urine sed) 0-5 SEEN /hpf 5-10 [facility] Thin prep Papanicolaou smear with manual screeningOrdered By: Chanel Saleh on 11-27-2022 Thin prep Papanicolaou smear with manual screening 146 U/L 15-37 [facility] Thin prep Papanicolaou smear with manual screening 6 5-15 [facility] Urine blood detectionOrdered By: Remus Saleh on 11-27-2022 RBC Ql (U) Negative Negative [facility] RBC Ql (U) 0-5 SEEN /hpf 0-5 [facility] Urine clarityOrdered By: Rem us Delfino on 11-27-2022 Clarity (U) Clear Clear [facility] Urine color determinationOrd ered By: Chanel Saleh on 11-27-2022 Color (U) Yellow Yellow [facility] Urine glucose detectionOrder ed By: Chanel Saleh on 11-27-2022 Glucose Ql (U) Normal mg/dl Normal [facility] Urine leukocyte esterase det ection by dipstickOrdered By: Chanel Saleh on 11-27-2022 Leukocyte esterase Test strip Ql (U) Negative Negative [facility] Urine pHOrdered By: Chanel cheung on 11-27-2022 pH (U) 7.0 [pH] 5.0 - 8.0 [facility] Urine sediment bacteria coun t by microscopy (number/high power field)Ordered By: Chanel Saleh on 11-27-2022 Bacteria LM.HPF (Urine sed) [#/Area] RARE /hpf None Seen [facility] Urine specific gravity measu rementOrdered By: Chanel Saleh on 11-27-2022 Specific gravity (U) [Rel density] 1.005 1.002-1.03 0 [facility] Urobilinogen Auto test strip Ql (U)Ordered By: Chanel Saleh on 11-27-2022 Urobilinogen Ql (U) Normal mg/dl Normal [facility] Basophil percentageOrdered B y: Alicia Manzano on 11-16-2022 Cholesterol [Mass/Vol] 154 mg/dL <200 [facility] Comment on above: <200 mg/dL Desirable 200-240 mg/dL Borderline >240 mg/dL High Risk Triglyceride [Mass/Vol] 210 mg/dL <199 [facility] Comment on above: The drugs N-Acetylcy steine and Metamizole may falsely depress this assay.Serum Triglycerides Reference Interval Normal <150 mg/dL Borderline high 150 - 199 mg/dL High 200 - 499 mg/dL Very High > or = 500 mg/dL INR in Blood by Coagulation assayOrdered By: Alicia Manzano on 11-16-2022 INR Coag (Bld) [Relative time] 1.1 {INR} [facility] Laboratory - CoagulationOrde red By: Alicia Manzano on 11-16-2022 aPTT Coag (Bld) [Time] 31.7 s 24.1-36.2 [facility] PT Coag (PPP) [Time] 14.0 s 11.7-14.9 [facility] Serum or plasma cholesterol in HDL measurement (mass/volume)Ordered By: Alicia Manzano on 11-16-2022 Cholesterol in HDL [Mass/Vol] 32 mg/dL >40 [facility] Comment on above: The drugs N-Acetylcy steine and Metamizole may falsely depress this assay. Reference Range HDL <40 mg/dL Low HDL Cholesterol HDL >or= 60 mg/dL High HDL Cholesterol Serum or plasma cholesterol in VLDL measurement (mass/volume)Ordered By: Alicia Manzano on 11-16-2022 Cholesterol in VLDL [Mass/Vol] 42 mg/dL 5-40 [facility] Serum or plasma low density lipoprotein (LDL) cholesterol measurement (mass/volume)Ordered By: Alicia Manzano on 11-16-2022 Cholesterol in LDL [Mass/Vol] 80 mg/dL 0-130 [facility] MIN SCREENING W TOMOon 11-09 [facility] US ABD RIGHT UPPER QUADRANTo n 09-21-2022 [facility] CBC W Auto Differential pane l (Bld)on 09-14-2022 Basophils (Bld) [#/Vol] <0.11 k/uL [facility] Basophils/100 WBC (Bld) 0.4 % [facility] Differential cell count method Nom (Bld) Auto [facility] Eosinophils (Bld) [#/Vol] 0.07 10*3/uL <0.46 k/uL [facility] Eosinophils/100 WBC (Bld) 1.5 % [facility] Erythrocyte distribution width (RBC) [Ratio] 14.0 % 11.5 - 15.0 % [facility] Hematocrit (Bld) [Volume fraction] 39.1 % 36.0 - 46.0 % [facility] Hemoglobin (Bld) [Mass/Vol] 12.8 g/dL 11.5 - 15.5 g/dL [facility] Immature granulocytes (Bld) [#/Vol] <0.10 k/uL [facility] Immature granulocytes/100 WBC (Bld) 0.2 % [facility] Lymphocytes (Bld) [#/Vol] 1.69 10*3/uL 1.00 - 4.00 k/uL [facility] Lymphocytes/100 WBC (Bld) 37.2 % [facility] MCH (RBC) [Entitic mass] 30.8 pg 26.0 - 34.0 pg [facility] MCHC (RBC) [Mass/Vol] 32.7 g/dL 30.5 - 36.0 g/dL [facility] MCV (RBC) [Entitic vol] 94.0 fL 80.0 - 100.0 fL [facility] Monocytes (Bld) [#/Vol] 0.39 10*3/uL <0.87 k/uL [facility] Monocytes/100 WBC (Bld) 8.6 % [facility] Neutrophils (Bld) [#/Vol] 2.36 10*3/uL 1.45 - 7.50 k/uL [facility] Neutrophils/100 WBC (Bld) 52.1 % [facility] Nucleated RBC (Bld) [#/Vol] <0.01 k/uL [facility] Nucleated RBC/100 WBC (Bld) [Ratio] 0.0 /100 WBC [facility] Platelet mean volume (Bld) [Entitic vol] 12.6 fL 9.0 - 12.7 fL [facility] Platelets (Bld) [#/Vol] 152 10*3/uL 150 - 400 k/uL [facility] RBC (Bld) [#/Vol] 4.16 10*6/uL 3.90 - 5.20 m/uL [facility] WBC (Bld) [#/Vol] 4.54 10*3/uL 3.70 - 11.00 k/uL [facility] No Panel InformationOrdered By: Dr. Anguiano on 08-25-2022 Nasopharyngeal Culture Culture exhibits no growth. [facility] Gram stain for investigation of transfusion reactionOrdered By: Dr. Anguiano on 08-24-2022 Microscopic observation Gram stain Nom (Unsp spec) [facility] Gram stain for investigation of transfusion reactionOrdered By: Wilder Anguiano on 08-23-2022 Microscopic observation Gram stain Nom (Unsp spec) [facility] No Panel InformationOrdered By: Wilder Anguiano on 08-23-2022 Nasopharyngeal Culture Culture exhibits no growth. [facility] CBC W Auto Differential pane l (Bld)on 06-16-2022 Basophils (Bld) [#/Vol] <0.11 k/uL [facility] Basophils/100 WBC (Bld) 0.4 % [facility] Differential cell count method Nom (Bld) Auto [facility] Eosinophils (Bld) [#/Vol] 0.08 10*3/uL <0.46 k/uL [facility] Eosinophils/100 WBC (Bld) 1.5 % [facility] Erythrocyte distribution width (RBC) [Ratio] 14.0 % 11.5 - 15.0 % [facility] Hematocrit (Bld) [Volume fraction] 39.8 % 36.0 - 46.0 % [facility] Hemoglobin (Bld) [Mass/Vol] 13.3 g/dL 11.5 - 15.5 g/dL [facility] Immature granulocytes (Bld) [#/Vol] <0.10 k/uL [facility] Immature granulocytes/100 WBC (Bld) 0.2 % [facility] Lymphocytes (Bld) [#/Vol] 1.95 10*3/uL 1.00 - 4.00 k/uL [facility] Lymphocytes/100 WBC (Bld) 35.7 % [facility] MCH (RBC) [Entitic mass] 31.1 pg 26.0 - 34.0 pg [facility] MCHC (RBC) [Mass/Vol] 33.4 g/dL 30.5 - 36.0 g/dL [facility] MCV (RBC) [Entitic vol] 93.0 fL 80.0 - 100.0 fL [facility] Monocytes (Bld) [#/Vol] 0.49 10*3/uL <0.87 k/uL [facility] Monocytes/100 WBC (Bld) 9.0 % [facility] Neutrophils (Bld) [#/Vol] 2.91 10*3/uL 1.45 - 7.50 k/uL [facility] Neutrophils/100 WBC (Bld) 53.2 % [facility] Nucleated RBC (Bld) [#/Vol] <0.01 k/uL [facility] Nucleated RBC/100 WBC (Bld) [Ratio] 0.0 /100 WBC [facility] Platelet mean volume (Bld) [Entitic vol] 13.6 fL High 9.0 - 12.7 fL [facility] Platelets (Bld) [#/Vol] 140 10*3/uL Low 150 - 400 k/uL [facility] RBC (Bld) [#/Vol] 4.28 10*6/uL 3.90 - 5.20 m/uL [facility] WBC (Bld) [#/Vol] 5.46 10*3/uL 3.70 - 11.00 k/uL [facility] ESR Westergren method (Bld) [Velocity]on 06-16-2022 ESR (Bld) [Velocity] 29 mm/h High 0 - 20 mm/hr [facility] HbA1c (Bld)on 06-16-2022 Average glucose Estimated from glycated hemoglobin (Bld) [Mass/Vol] 200 mg/dL [facility] HbA1c (Bld) [Mass fraction] 8.6 % High 4.3 - 5.6 % [facility] No Panel InformationOrdered By: Dr. Anguiano on 05-19-2022 Nasopharyngeal Culture No growth in 48 hours. [facility] Gram stain for investigation of transfusion reactionOrdered By: Dr. Anguiano on 05-18-2022 Microscopic observation Gram stain Nom (Unsp spec) [facility] XR CHEST 2V FRONTAL/LATon [facility] XR Chest PA and Lateralon IMPRESSION: No acute radiographic abnormality. [employer]: PSCB Transcribe Date/Time: Apr 19 2022 9:42A Dictated by : RONNIE LOVE MD This examination was interpreted and the report reviewed and electronically signed by: RONNIE LOVE MD on Apr 19 2022 9:43AM [facility] [facility] * * *Final Report* * * DATE OF EXAM: Apr 19 2022 9:30AM WOX 5291 - XR CHEST 2V FRONTAL/LAT / PROCEDURE REASON: multiple diagnoses * * * * Physician Interpretation * * * * EXAMINATION: CHEST RADIOGRAPH (2 VIEW FRONTAL & LATERAL) CLINICAL HISTORY: Fatigue, unspecified type Acute cough MQ: XC2_6 EXAM DATE/TIME: 04/19/2022 9:30 AM COMPARISON: No relevant prior studies available. RESULT: Lines, tubes, and devices: None. Lungs and pleura: No consolidation. No lung mass. No pleural effusion. No pneumothorax. Cardiomediastinal silhouette: Normal cardiomediastinal silhouette. Bones and soft tissues: Unremarkable. DIVISION OF RADIOLOGY Provider, [facility] - 04/19/2022 * * *Final Report* * * DATE OF EXAM: Apr 19 2022 9:30AM WOX 5291 - XR CHEST 2V FRONTAL/LAT / PROCEDURE REASON: multiple diagnoses * * * * Physician Interpretation * * * * EXAMINATION: CHEST RADIOGRAPH (2 VIEW FRONTAL & LATERAL) CLINICAL HISTORY: Fatigue, unspecified type Acute cough MQ: XC2_6 EXAM DATE/TIME: 04/19/2022 9:30 AM COMPARISON: No relevant prior studies available. RESULT: Lines, tubes, and devices: None. Lungs and pleura: No consolidation. No lung mass. No pleural effusion. No pneumothorax. Cardiomediastinal silhouette: Normal cardiomediastinal silhouette. Bones and soft tissues: Unremarkable. IMPRESSION IMPRESSION: No acute radiographic abnormality. [employer] Technician: ASHOK Transcribe Date/Time: Apr 19 2022 9:42A Dictated by : RONNIE LOVE MD This examination was interpreted and the report reviewed and electronically signed by: RONNIE LOVE MD on Apr 19 2022 9:43AM EST [facility] Radiology Study observation (narrative) [facility] XR Chest PA and LateralOrder ed By: [facility] Provider on 04-19-2022 [facility] Basophil percentageon 2021 Bilirubin [Mass/Vol] 0.90 mg/dL 0.20-1.00 [facility] Comment on above: For patients on eltr ombopag therapy, use of Dimension Hadley TBIL is not recommended. Protein [Mass/Vol] 7.4 g/dL 6.4-8.2 [facility] Direct bilirubinon Bilirubin.direct [Mass/Vol] 0.26 mg/dL 0.00-0.30 [facility] Laboratory - Chemistry and C hemistry - challengeon 04-05-2022 ALP [Catalytic activity/Vol] 121 U/L 45-117 [facility] ALT [Catalytic activity/Vol] 185 U/L 13-56 [facility] Globulin (S) [Mass/Vol] 3.7 g/dL 2.2-4.2 [facility] Serum or plasma albumin hailee urement (mass/volume)on 04-05-2022 Albumin [Mass/Vol] 3.7 g/dL 3.2-5.0 [facility] Thin prep Papanicolaou smear with manual screeningon 04-05-2022 Thin prep Papanicolaou smear with manual screening 148 U/L 15-37 [facility] Absolute lymphocyte counton 03-17-2022 Lymphocytes Auto (Unsp spec) [#/Vol] 1.70 10*3/uL 0.83-4.51 [facility] Basophil percentageon 2021 Basophils/100 WBC (Bld) 0.2 % 0-1 [facility] Bilirubin [Mass/Vol] 0.70 mg/dL 0.20-1.00 [facility] Comment on above: For patients on eltr ombopag therapy, use of Dimension [place] TBIL is not recommended. Chloride [Moles/Vol] 101 mmol/L 98-107 [facility] Cholesterol [Mass/Vol] 169 mg/dL <200 [facility] Comment on above: <200 mg/dL Desirable 200-240 mg/dL Borderline >240 mg/dL High Risk Eosinophils/100 WBC (Bld) 1.8 % 0-5 [facility] Glucose [Mass/Vol] 142 mg/dL 74-106 [facility] Comment on above: Fasting Glucose resu lt greater than or equal to 126 mg/dL suggests DIABETES MELLITUS per A.D.A. criteria. Neutrophils (Bld) [#/Vol] 2.3 10*3/uL 2.0-7.7 [facility] Neutrophils/100 WBC (Bld) 51.2 % 47-70 [facility] Potassium [Moles/Vol] 3.9 mmol/L 3.5-5.1 [facility] Protein [Mass/Vol] 7.2 g/dL 6.4-8.2 [facility] Sodium [Moles/Vol] 135 mmol/L 136-145 [facility] Triglyceride [Mass/Vol] 105 mg/dL <199 [facility] Comment on above: The drugs N-Acetylcy steine and Metamizole may falsely depress this assay.Serum Triglycerides Reference Interval Normal <150 mg/dL Borderline high 150 - 199 mg/dL High 200 - 499 mg/dL Very High > or = 500 mg/dL WBC (Bld) [#/Vol] 4.4 10*3/uL 4.4-11.0 [facility] Blood erythrocytes count (nu mber/volume)on 03-17-2022 RBC (Bld) [#/Vol] 4.10 10*6/uL 4.2-5.4 [facility] Blood hemoglobin measurement (mass/volume)on 03-17-2022 Hemoglobin (Bld) [Mass/Vol] 13.1 g/dL 12.0-15.0 [facility] Blood lymphocytes/100 leukoc yteson 03-17-2022 Lymphocytes/100 WBC (Bld) 38.5 % 19-41 [facility] Blood monocytes/100 leukocyt eson 03-17-2022 Monocytes/100 WBC (Bld) 8.1 % 0-10 [facility] Blood platelet mean volumeon 03-17-2022 Platelet mean volume (Bld) [Entitic vol] 12.9 fL 6.2-12.0 [facility] Determination of erythrocyte mean corpuscular volume (MCV)on 03-17-2022 MCV (RBC) [Entitic vol] 96.6 fL 81-99 [facility] Direct bilirubinon 2 Bilirubin.direct [Mass/Vol] 0.24 mg/dL 0.00-0.30 [facility] Hematocrit Auto (Bld) [Volum e fraction]on 03-17-2022 Hematocrit (Bld) [Volume fraction] 39.6 % 37-47 [facility] INR in Blood by Coagulation assayon 03-17-2022 INR Coag (Bld) [Relative time] 1.1 {INR} [facility] Iron measurement (mass/mass) on 03-17-2022 Iron (Unsp spec) [Mass/Mass] 133 ug/dL 50-170 [facility] Laboratory - Chemistry and C hemistry - challengeon 03-17-2022 Albumin [Mass/Vol] 3.6 g/dL 2.9-4.4 [facility] ALP [Catalytic activity/Vol] 108 U/L 45-117 [facility] ALT [Catalytic activity/Vol] 186 U/L 13-56 [facility] Amylase [Catalytic activity/Vol] 203 U/L 5-55 [facility] CO2 [Moles/Vol] 26.0 mmol/L 21.0-32.0 [facility] Cobalamin (Vitamin B12) [Mass/Vol] 355 pg/mL 211-911 [facility] Globulin (S) [Mass/Vol] 3.7 g/dL 2.2-4.2 [facility] T4 [Mass/Vol] 14.5 ug/dL 4.8-13.9 [facility] Urea nitrogen/Creatinine [Mass ratio] 16.8 mg/mg 10-20 [facility] Laboratory - Coagulationon 1 05-17-2021 aPTT Coag (Bld) [Time] 31.6 s 24.1-36.2 [facility] PT Coag (PPP) [Time] 14.1 s 11.7-14.9 [facility] Laboratory - Hematology and Cell countson 03-17-2022 Erythrocyte distribution width (RBC) [Entitic vol] 47.5 fL 35.1-43.9 [facility] Erythrocyte distribution width (RBC) [Ratio] 13.3 % 11.6-14.6 [facility] Immature granulocytes/100 WBC (Bld) 0.200 % 0.0-0.9 [facility] Comment on above: IG% - Immature Granu locytes (promyelocytes, myelocytes and metamyelocytes) > 1% indicates that a LEFT SHIFT is Present. MCH (RBC) [Entitic mass] 32.0 pg 27.0-32.0 [facility] Nucleated RBC/100 WBC (Bld) [Ratio] 0 % 0-5 [facility] MCHC Auto (RBC) [Mass/Vol]on 03-17-2022 MCHC (RBC) [Mass/Vol] 33.1 g/dL 32-36 [facility] No Panel Informationon 03-17 Addendum Document Comment . [facility] Comment on above: The SPE pattern appe ars unremarkable. Evidence ofmonoclonal protein is not apparent. Qgbeo-7-Nujhfvgut 0.3 g/dL 0.0-0.4 [facility] Qpijx-2-Grcvgjept 0.6 g/dL 0.4-1.0 [facility] Anti-Gliadin IgA Antibody 8 units 0-19 [facility] Comment on above: Negative 0 - 19 Weak Positive 20 - 30 Moderate to Strong Positive >30 Anti-Gliadin IgG Antibody 3 units 0-19 [facility] Comment on above: Negative 0 - 19 Weak Positive 20 - 30 Moderate to Strong Positive >30 Anti-Nuclear Antibody Screen Positive Negative [facility] Ceruloplasmin 23.8 mg/dL 19.0-39.0 [facility] Cytomegalovirus DNA Qual (PCR) Negative Negative [facility] Comment on above: No Cytomegalovirus D NA Detected.This test was developed and its performance characteristicsdetermined by [employer]. It has not been cleared or approvedby the Food and Drug Administration. The FDA hasdetermined that such clearance or approval is notnecessary. Estimated GFR (MDRD) Amer 134 mL/min >60 [facility] Comment on above: GFR Calc Estimated GFR (MDRD) Non-Af Amer 111 mL/min >60 [facility] Comment on above: Non- GFR Calc Gamma Globulins 1.0 g/dL 0.4-1.8 [facility] Miscellaneous Test See comment [facility] Comment on above: TEST RESULT LIMITSLi jean-Kidney Microsomal Ab 1.2 Units 0.0- 20.0 Negative 0.0 - 20.0 Equivocal 20.1 - 24.9 Positive >24.9 LKM type 1 antibodies are detected in patients with autoimmune hepatitis type 2 and in up to 8% of patients with chronic HCV infection. ____ TESTING PERFORMED AT [facility]. ORIGINAL REPORT ON FILE IN LAB CONTAINS ADDITIONAL TEST SITE INFORMATION. TEST RESULT LIMITSTr ansglutaminase Ab IgG/M/A [facility] IgG <1.2 U/mL < 6.0 Reference Range Negative < 6.0 U/mL Weak Positive 6.0 - 9.0 U/mL Positive > 9.0 U/mL Tr[facility] IgM 2.4 U/mL <9.6 Reference Range Negative < 9.6 U/mL Equivocal 9.6 - 12.4 U/mL Positive > 12.4 U/mLThe performance characteristics of the listed assay wasvalidated by [facility]. The [place] FDA has not approved or cleared this test. The results ofthis assay can be used for clinical diagnosis without FDAapproval. [facility] is a CLIA certified, CAP accredited laboratory for performing high complexity assays such as this one.Testing Performed at: [facility] [address] [place], [place] [address]Tr[facility] IgA <1.2 U/mL < 4.0 Reference Range Negative < 4.0 U/mL Weak Positive 4.0 - 10.0 U/mL Positive > 10.0 U/mL TESTING PERFORMED AT [employer]. ORIGINAL REPORT ON FILE IN LAB CONTAINS ADDITIONAL TEST SITE INFORMATION. Total Iron Binding Capacity 358 ug/dL 250-450 [facility] Platelets bldon 03-17-2022 Platelets (Bld) [#/Vol] 146 10*3/uL 150-450 [facility] Protein Fractions Elph [Inte rp]on 03-17-2022 Protein Fractions [Interp] Comment . [facility] Comment on above: Protein electrophore sis scan will follow via computer,mail, or emergency department coordinator delivery. Serum Thais Bacon virus cap sharron IgG antibody assay (units/volume)on 03-17-2022 EBV capsid IgG Qn (S) 149.0 [arb'U]/mL 0.0-17.9 [facility] Comment on above: Negative <18.0 Equiv ocal 18.0 - 21.9 Positive >21.9 Serum Thais Abcon virus cap sharron IgM antibody assay (units/volume)on 03-17-2022 EBV capsid IgM Qn (S) [arb'U]/mL 0.0-35.9 [facility] Comment on above: Negative <36.0 Equiv ocal 36.0 - 43.9 Positive >43.9 Serum Thais Bacon virus nuc lear IgG antibody assay (units/volume)on 03-17-2022 EBV nuclear IgG Qn (S) < 18.0 U/mL 0.0-17.9 [facility] Comment on above: Negative <18.0 Equiv ocal 18.0 - 21.9 Positive >21.9 Serum albumin to globulin ra paula by protein electrophoresison 03-17-2022 Albumin/Globulin Elph [Mass ratio] 1.2 0.7-1.7 [facility] Serum qthzp-4-gkzkiypppjq me asurementon 03-17-2022 Alpha 1 antitrypsin [Mass/Vol] 183 mg/dL 101-187 [facility] Comment on above: Performed at: [address] [id number] Director: Jose Castillo PhD, Phone: [phone] Serum globulin measurement ( mass/volume)on 03-17-2022 Globulin (S) [Mass/Vol] 2.9 g/dL 2.2-3.9 [facility] Serum mitochondria antibody detectionon 03-17-2022 Mitochondria Ab Ql (S) <20.0 Units 0.0-20.0 [facility] Comment on above: Negative 0.0 - 20.0 Equivocal 20.1 - 24.9 Positive >24.9Mitochondrial (M2) Antibodies are found in 90-96% ofpatients with primary biliary cirrhosis. Serum or plasma IgA measurem ent (mass/volume)on 03-17-2022 IgA [Mass/Vol] 223 mg/dL 87-352 [facility] Comment on above: Performed at: [facility] [employer] [address] [place], [place] [id number] Director: Jose Castillo PhD, Phone: [phone] at: - [facility] [id number] Director: Brigido Mtz MD, Phone: [phone] Serum or plasma actin IgG an tibody assay (units/volume)on 03-17-2022 Actin IgG Qn 11 Units 0-19 [facility] Comment on above: Negative 0 - 19 Weak positive 20 - 30 Moderate to strong positive >30 Actin Antibodies are found in 52-85% of patients with autoimmune hepatitis or chronic active hepatitis and in 22% of patients with primary biliary cirrhosis. Serum or plasma albumin hailee urement (mass/volume)on 03-17-2022 Albumin [Mass/Vol] 3.5 g/dL 3.2-5.0 [facility] Serum or plasma niptz-8-ejyo protein tumor marker measurement (units/volume)on 03-17-2022 AFP.tumor marker Qn 6.7 ng/mL 0.0-9.2 [facility] Comment on above: [facility] El ectrochemiluminescence Immunoassay(ECLIA)Values obtained with different assay methods or kits cannotbe used interchangeably. Results cannot be interpreted asabsolute evidence of the presence or absence of malignantdisease.This test is not interpretable in females. Serum or plasma beta globuli n measurement by electrophoresis (mass/volume)on 03-17-2022 Beta globulin Elph [Mass/Vol] 1.0 g/dL 0.7-1.3 [facility] Serum or plasma calcium hailee urement (mass/volume)on 03-17-2022 Calcium [Mass/Vol] 9.2 mg/dL 8.5-10.1 [facility] Serum or plasma cholesterol in HDL measurement (mass/volume)on 03-17-2022 Cholesterol in HDL [Mass/Vol] 39 mg/dL >40 [facility] Comment on above: The drugs N-Acetylcy steine and Metamizole may falsely depress this assay. Reference Range HDL <40 mg/dL Low HDL Cholesterol HDL >or= 60 mg/dL High HDL Cholesterol Serum or plasma cholesterol in VLDL measurement (mass/volume)on 03-17-2022 Cholesterol in VLDL [Mass/Vol] 21 mg/dL 5-40 [facility] Serum or plasma creatinine m easurement (mass/volume)on 03-17-2022 Creatinine [Mass/Vol] 0.59 mg/dL 0.55-1.02 [facility] Comment on above: The validity of the calculated GFR & GFRAA in patients over 70 years has not been determined. Clinical correlation is essential. Serum or plasma ferritin prince surement (mass/volume)on 03-17-2022 Ferritin [Mass/Vol] 177 ng/mL 8-252 [facility] Serum or plasma iron saturat ion measurement (mass fraction)on 03-17-2022 Iron saturation [Mass fraction] 37.2 % 15.0-55.0 [facility] Serum or plasma low density lipoprotein (LDL) cholesterol measurement (mass/volume)on 03-17-2022 Cholesterol in LDL [Mass/Vol] 109 mg/dL 0-130 [facility] Serum or plasma retinol hailee urement (mass/volume)on 03-17-2022 Retinol [Mass/Vol] 31.1 ug/dL 20.1-62.0 [facility] Comment on above: Reference intervals for vitamin A determined from [facility] studies. Individuals with vitamin A less than 20ug/dL are considered vitamin A deficient and those withserum concentrations less than 10 ug/dL are consideredseverely deficient.This test was developed and its performance characteristicsdetermined by [facility]. It has not been cleared orapproved by the Food and Drug Administration. Serum or plasma urea nitroge n measurement (mass/volume)on 03-17-2022 Urea nitrogen [Mass/Vol] 10 mg/dL 7-18 [facility] Thin prep Papanicolaou smear with manual screeningon 03-17-2022 Thin prep Papanicolaou smear with manual screening 159 U/L 15-37 [facility] Thin prep Papanicolaou smear with manual screening 8 5-15 [facility] Thin prep Papanicolaou smear with manual screening See comment [facility] Comment on above: Result: Not Observed Thin prep Papanicolaou smear with manual screening Comment . [facility] Comment on above: EBV Interpretation Janiya heAnjana: Antibody Present + Antibody Absent -Interpretation VCA-IgM VCA-IgG EBNA-IgGNo previous infection/ - - -SusceptiblePrimary infection (new + + -or recent)Past Infection +or- + +See comment below* + - -*Results indicate infection with EBV at some time however cannot predict the timing of the infection since antibodies to EBNA usually develop after primary infection or, alternatively, approximately 5-10% of patients with EBV never develop antibodies to EBNA. Total protein bloodon 2021 Protein [Mass/Vol] 6.5 g/dL 6.0-8.5 [facility] UA DIP, URINE (POC)on 2021 BILIRUBIN UA (POCT) Negative Negative [facility] CLARITY UA (POCT) [facility]y [facility] COLOR UA (POCT) Dark yellow [facility] GLUCOSE UA (POCT) Negative Negative mg/dL [facility] HEMOGLOBIN/BLOOD UA (POCT) Moderate Abnormal Negative [facility] KETONE UA (POCT) Negative Negative mg/dL [facility] LEUKOCYTES UA (POCT) Large [facility]normal [facility] NITRITE UA (POCT) Negative Negative [facility] PH UA (POCT) 7.0 4.5 - 8.0 [facility] Protein Ql (U) 30 mg/dL Abnormal Negative mg/dL [facility] SPECIFIC GRAVITY UA (POCT) 1.015 1.005 - 1.030 [facility] UROBILINOGEN UA (POCT) 2.0 E.U./dL Abnormal Dee l E.U./dL [facility] HEMOGLOBIN A1C (POC)on 01-19 HbA1c (Bld) [Mass fraction] 7.2 % Abnormal 4.2 - 5.6 % [facility] STREP A MOLECULAR (POC)on Procedural Control Valid [facility] Strep A (POCT) Negative Negative [facility] Basophil percentageon 2021 WBC (Bld) [#/Vol] 5.3 10*3/uL 4.4-11.0 [facility] Work Phone: Blood erythrocytes count (nu mber/volume)on 11-17-2021 RBC (Bld) [#/Vol] 4.00 10*6/uL 4.2-5.4 [facility] Work Phone: Blood hemoglobin measurement (mass/volume)on 11-17-2021 Hemoglobin (Bld) [Mass/Vol] 12.8 g/dL 12.0-15.0 [facility] Work Phone: Blood platelet mean volumeon 11-17-2021 Platelet mean volume (Bld) [Entitic vol] 11.6 fL 6.2-12.0 [facility] Work Phone: Determination of erythrocyte mean corpuscular volume (MCV)on 11-17-2021 MCV (RBC) [Entitic vol] 94.3 fL 81-99 [facility] Work Phone: Hematocrit Auto (Bld) [Volum e fraction]on 11-17-2021 Hematocrit (Bld) [Volume fraction] 37.7 % 37-47 [facility] Work Phone: Laboratory - Hematology and Cell countson 11-17-2021 Erythrocyte distribution width (RBC) [Entitic vol] 45.8 fL 35.1-43.9 [facility] Work Phone: Erythrocyte distribution width (RBC) [Ratio] 13.3 % 11.6-14.6 [facility] Work Phone: MCH (RBC) [Entitic mass] 32.0 pg 27.0-32.0 [facility] Work Phone: MCHC Auto (RBC) [Mass/Vol]on 11-17-2021 MCHC (RBC) [Mass/Vol] 34.0 g/dL 32-36 [facility] Work Phone: Platelets bldon 11-17-2021 Platelets (Bld) [#/Vol] 136 10*3/uL 150-450 [facility] Work Phone: MIN DIAG W ROBERT RTon 022 [facility] Absolute lymphocyte counton 10-24-2021 Lymphocytes Auto (Unsp spec) [#/Vol] 2.06 10*3/uL 0.83-4.51 [facility] Work Phone: Basophil percentageon 2021 Basophils/100 WBC (Bld) 0.4 % 0-1 [facility] Work Phone: Eosinophils/100 WBC (Bld) 1.5 % 0-5 [facility] Work Phone: Neutrophils (Bld) [#/Vol] 2.8 10*3/uL 2.0-7.7 [facility] Work Phone: Neutrophils/100 WBC (Bld) 51.0 % 47-70 [facility] Work Phone: WBC (Bld) [#/Vol] 5.4 10*3/uL 4.4-11.0 [facility] Work Phone: [phone] Blood erythrocytes count (nu mber/volume)on 10-24-2021 RBC (Bld) [#/Vol] 4.57 10*6/uL 4.2-5.4 [facility]: Blood hemoglobin measurement (mass/volume)on 10-24-2021 Hemoglobin (Bld) [Mass/Vol] 14.3 g/dL 12.0-15.0 [facility] Work Phone: Blood lymphocytes/100 leukoc yteson 10-24-2021 Lymphocytes/100 WBC (Bld) 37.9 % 19-41 [facility] Work Phone: Blood monocytes/100 leukocyt eson 10-24-2021 Monocytes/100 WBC (Bld) 9.0 % 0-10 [facility] Work Phone: Blood platelet mean volumeon 10-24-2021 Platelet mean volume (Bld) [Entitic vol] 12.2 fL 6.2-12.0 [facility] Work Phone: Determination of erythrocyte mean corpuscular volume (MCV)on 10-24-2021 MCV (RBC) [Entitic vol] 92.1 fL 81-99 [facility] Work Phone: [phone] Hematocrit Auto (Bld) [Volum e fraction]on 10-24-2021 Hematocrit (Bld) [Volume fraction] 42.1 % 37-47 [facility] Work Phone: [phone] Laboratory - Hematology and Cell countson 10-24-2021 Erythrocyte distribution width (RBC) [Entitic vol] 44.1 fL 35.1-43.9 [facility] Work Phone: Erythrocyte distribution width (RBC) [Ratio] 13.0 % 11.6-14.6 [facility] Work Phone: Immature granulocytes/100 WBC (Bld) 0.200 % 0.0-0.9 [facility] Work Phone: Comment on above: IG% - Immature Granu locytes (promyelocytes, myelocytes and metamyelocytes) > 1% indicates that a LEFT SHIFT is Present. MCH (RBC) [Entitic mass] 31.3 pg 27.0-32.0 [facility] Work Phone: Nucleated RBC/100 WBC (Bld) [Ratio] 0 % 0-5 [facility] Work Phone: MCHC Auto (RBC) [Mass/Vol]on 10-24-2021 MCHC (RBC) [Mass/Vol] 34.0 g/dL 32-36 [facility] Work Phone: Platelets bldon 10-24-2021 Platelets (Bld) [#/Vol] 156 10*3/uL 150-450 [facility] Work Phone: HEMOGLOBIN A1C (POC)on 10-13 HbA1c (Bld) [Mass fraction] 8.4 % Abnormal 4.2 - 5.6 % [facility] [place] ABD RT UPPER QUADRANTon 0 10-13-2021 [facility] XR STERNUM 2V DESAI/LATon - [facility] XR Sternum Lateral and right anterior obliqueon 10-13-2021 IMPRESSION: Calcific or ossific prominence along the anterior aspect of the lower sternum noted. [employer] Technician: ASHOK Transcribe Date/Time: Oct 13 2021 2:49P Dictated by : ROMULO ROMO, DO This examination was interpreted and the report reviewed and electronically signed by: ROMULO ROMO DO on Oct 13 2021 2:53PM EST [email or web address] USE_DIVISIO N OF RADIOLOGY * * *Final Report* * * DATE OF EXAM: Oct 13 2021 8:50AM WOX 5292 - XR STERNUM 2V DESAI/LAT / PROCEDURE REASON: Type 2 diabetes mellitus without complication, without long-term current use of * * * * Physician Interpretation * * * * XR STERNUM 2V DESAI/LAT EXAM DATE/TIME: 10/13/2021 8:50 AM HISTORY: 56 years old Clinical information: Type 2 diabetes mellitus without complication, without long-term current use of insulin (HCC) Lump over the distal sternum x 1 month without injury TECHNIQUE: Images: XR STERNUM 2V DESAI/LAT Comparison: None. RESULT: Findings: Calcific or ossific prominence along the anterior aspect of the lower sternum noted in the lateral view. [email or web address] USE_DIVISIO N OF RADIOLOGY Provider, [facility] - 10/13/2021 * * *Final Report* * * DATE OF EXAM: Oct 13 2021 8:50AM WOX 5292 - XR STERNUM 2V DESAI/LAT / PROCEDURE REASON: Type 2 diabetes mellitus without complication, without long-term current use of * * * * Physician Interpretation * * * * XR STERNUM 2V DESAI/LAT EXAM DATE/TIME: 10/13/2021 8:50 AM HISTORY: 56 years old Clinical information: Type 2 diabetes mellitus without complication, without long-term current use of insulin (HCC) Lump over the distal sternum x 1 month without injury TECHNIQUE: Images: XR STERNUM 2V DESAI/LAT Comparison: None. RESULT: Findings: Calcific or ossific prominence along the anterior aspect of the lower sternum noted in the lateral view. IMPRESSION IMPRESSION: Calcific or ossific prominence along the anterior aspect of the lower sternum noted. [employer] Production Technician: ASHOK Transcribe Date/Time: Oct 13 2021 2:49P Dictated by : ROMULO ROMO DO This examination was interpreted and the report reviewed and electronically signed by: ROMULO ROMO DO on Oct 13 2021 2:53PM EST [facility] Radiology Study observation (narrative) [facility] XR Sternum Lateral and right anterior obliqueOrdered By: Ccf Provider on 10-13-2021 [facility] UA DIP, URINE (POC)on 2021 BILIRUBIN UA (POCT) Negative Negative [place] [facility] CLARITY UA (POCT) Clear [facility] COLOR UA (POCT) Dark yellow [facility] GLUCOSE UA (POCT) Negative Negative mg/dL [facility] HEMOGLOBIN/BLOOD UA (POCT) Negative Negative [facility] KETONE UA (POCT) Trace Negative mg/dL [facility] LEUKOCYTES [facility] (POCT) [facility] NITRITE UA (POCT) Negative Negative [facility] PH UA (POCT) 6.5 4.5 - 8.0 [facility] Protein Ql (U) Negative Negative mg/dL [facility] SPECIFIC GRAVITY UA (POCT) 1.020 1.005 - 1.030 [facility] UROBILINOGEN UA (POCT) 1.0 E.U./dL Dee l E.U./dL [facility] Automated blood hematocrit ( percentage)on 10-06-2021 Hematocrit (Bld) [Volume fraction] 37.1 % 37-47 [facility] Work Phone: Basophil percentageon 2021 WBC (Bld) [#/Vol] 5.4 10*3/uL 4.4-11.0 [facility] Work Phone: Blood erythrocytes count (nu mber/volume)on 10-06-2021 RBC (Bld) [#/Vol] 3.96 10*6/uL 4.2-5.4 [facility] Work Phone: Blood hemoglobin measurement (mass/volume)on 10-06-2021 Hemoglobin (Bld) [Mass/Vol] 12.3 g/dL 12.0-15.0 [facility] Work Phone: Blood platelet mean volumeon 10-06-2021 Platelet mean volume (Bld) [Entitic vol] 12.1 fL 6.2-12.0 [facility] Work Phone: CBC/DIFF (OUTSIDE )on BASO ABS [facility] Basophil % [facility] EOS ABS [facility] Eosinophil % [facility] Immature Gran % [facility] LYMPH ABS [facility] Lymphocyte % [facility] MONO ABS [facility] Monocyte % [facility] NEUT ABS [facility] Neutrophil % [facility] RDW 44.8 K/uL Abnormal 140 - 440 K/uL [facility] Determination of erythrocyte mean corpuscular volume (MCV)on 10-06-2021 MCV (RBC) [Entitic vol] 93.7 fL 81-99 [facility] Work Phone: Laboratory - Hematology and Cell countson 10-06-2021 Erythrocyte distribution width (RBC) [Entitic vol] 44.8 fL 35.1-43.9 [facility] Work Phone: Erythrocyte distribution width (RBC) [Ratio] 13.1 % 11.6-14.6 [facility] Work Phone: MCH (RBC) [Entitic mass] 31.1 pg 27.0-32.0 [facility] Work Phone: MCHC [Mass/volume] by Automa clayton counton 10-06-2021 MCHC (RBC) [Mass/Vol] 33.2 g/dL 32-36 [facility] Work Phone: Platelets bldon 10-06-2021 Platelets (Bld) [#/Vol] 133 10*3/uL 150-450 [facility] Work Phone: US DOPPLER ABD/PEL/RETRO/LMT Don 01-14-2020 Patient Name: CASSIA HOLLAND ---Ultrasound--- Exam Date/Time 01/14/2020 10:25:00 EDT Exam US Art/Vein Abd/Pelvis/Scrotal Complete Ordering Physician DIA GALARZA Accession Number [id number] CPT4 Codes 53923 () Reason For Exam fatty liver, elevated liver enzymes, melena, constipation Report Indication: Fatty liver. Elevated enzymes. FINDINGS: There is patent antegrade flow identified in the splenic vein, the main left and right portal veins, hepatic artery, left middle and right hepatic veins and IVC. Common duct 4.2 mm. Right kidney 12.5 cm. No definite gallstones seen. No focal liver lesion visualized within limits of the study. IMPRESSION: No acute vascular process visualized. Report Dictated on --- Final --- Dictated: 01/14/2020 10:53 am Dictating Physician: MD FRANKLIN JOHN Signed Date and Time: 01/14/2020 11:00 am Signed by: MD FRANKLIN JOHN Transcribed Date and Time: 01/14/2020 10:53 [place], [place] [facility], [facility]iology Results From [facility] - 01/14/2020 11:01 AM EDT Patient Name: CASSIA HOLLAND ---Ultrasound--- Exam Date/Time 01/14/2020 10:25:00 EDT Exam US Art/Vein Abd/Pelvis/Scrotal Complete Ordering Physician DIA GALARZA Accession Number [id number] CPT4 Codes 89189 () Reason For Exam fatty liver, elevated liver enzymes, melena, constipation Report Indication: Fatty liver. Elevated enzymes. FINDINGS: There is patent antegrade flow identified in the splenic vein, the main left and right portal veins, hepatic artery, left middle and right hepatic veins and IVC. Common duct 4.2 mm. Right kidney 12.5 cm. No definite gallstones seen. No focal liver lesion visualized within limits of the study. IMPRESSION: No acute vascular process visualized. Report Dictated on --- Final --- Dictated: 01/14/2020 10:53 am Dictating Physician: MD FRANKLIN JOHN Signed Date and Time: 01/14/2020 11:00 am Signed by: MD FRANKLIN JOHN Transcribed Date and Time: 01/14/2020 10:53 [place], [place] US Liver Doppleron 0 US Liver Doppler Patient Name: CASSIA HOLLAND Ultrasound Exam Date/Time 01/14/2020 10:25:00 EDT Exam US Art/Vein Abd/Pelvis/Scrotal Complete Ordering Physician DIA GALARZA Accession Number [id number] CPT4 Codes 07504 () Reason For Exam fatty liver, elevated liver enzymes, melena, constipation Report Indication: Fatty liver. Elevated enzymes. FINDINGS: There is patent antegrade flow identified in the splenic vein, the main left and right portal veins, hepatic artery, left middle and right hepatic veins and IVC. Common duct 4.2 mm. Right kidney 12.5 cm. No definite gallstones seen. No focal liver lesion visualized within limits of the study. IMPRESSION: No acute vascular process visualized. Report Dictated on Final Dictated: 01/14/2020 10:53 am Dictating Physician: MD FRANKLIN JOHN Signed Date and Time: 01/14/2020 11:00 am Signed by: MD FRANKLIN JOHN Transcribed Date and Time: 01/14/2020 10:53 [facility] Vital Signs Date Time Vital Sign Value Performing Clinician Facility 10-20-2024 08:35-0400 Body height 160.[address] Opal Mathews MD Work Phone: [phone] [place] [address] 10-20-2024 08:35-0400 Body mass index (BMI) [Ratio] 35.7 kg/m2 Dr. Opal Mathews MD Work Phone: 7(475)[phone] [place] [address] 10-20-2024 08:35-0400 Body weight 91.[address] Opal Mathews MD Work Phone: 9(391)[phone] [place] [address] 10-20-2024 08:35-0400 Diastolic blood pressure 73 mm[Hg] Dr. Opal Mathews MD Work Phone: 4(690)[phone] [place] [address] 10-20-2024 08:35-0400 Heart rate 78 /min Dr. Opal Mathews MD Work Phone: 0(996)[phone] [place] [address] 10-20-2024 08:35-0400 Respiratory rate 16 /min Dr. Opal Mathews MD Work Phone: 6(070)[phone] [place] [address] 10-20-2024 08:35-0400 Systolic blood pressure 114 mm[Hg] Dr. Opal Mathews MD Work Phone: 2([phone])[phone] [place] [address] 08-19-2024 15:18-0400 Body mass index (BMI) [Ratio] 35.6 kg/m2 Krislyn Aberegg PA Work Phone: [facility] 08-19-2024 15:18-0400 Body temperature 98.01 [degF] Krislyn Aberegg PA Work Phone: [facility] 08-19-2024 15:18-0400 Body weight 89 kg Krislyn Aberegg PA Work Phone: [facility] 08-19-2024 15:18-0400 Diastolic blood pressure 82 mm[Hg] Krislyn Aberegg PA Work Phone: [facility] 08-19-2024 15:18-0400 Heart rate 81 /min Krislyn Aberegg PA Work Phone: [facility] 08-19-2024 15:18-0400 Respiratory rate 18 /min Krislyn Aberegg PA Work Phone: [facility] 08-19-2024 15:18-0400 SaO2% (BldA) [Mass fraction] 99 % Krislyn Aberegg PA Work Phone: [facility] 08-19-2024 15:18-0400 Systolic blood pressure 132 mm[Hg] Krislyn Aberegg PA Work Phone: [facility] 08-18-2024 16:08-0400 Body mass index (BMI) [Ratio] 34.11 kg/m2 Opal Mathews MD Work Phone: [facility] 08-18-2024 16:08-0400 Body temperature 98.2 [degF] Opal Mathews MD Work Phone: [facility] 08-18-2024 16:08-0400 Body weight 85.28 kg Opal Mathews MD Work Phone: [facility] 08-18-2024 16:08-0400 Diastolic blood pressure 81 mm[Hg] Opal Mathews MD Work Phone: [facility] 08-18-2024 16:08-0400 Heart rate 89 /min Opal Mathews MD Work Phone: [facility] 08-18-2024 16:08-0400 Respiratory rate 16 /min Opal Mathews MD Work Phone: [facility] 08-18-2024 16:08-0400 Systolic blood pressure 138 mm[Hg] Opal Mathews MD Work Phone: [facility] 06-30-2024 08:30-0500 Body mass index (BMI) [Ratio] 33.6 kg/m2 [employer] Work Phone: [facility] 06-30-2024 08:30-0500 Body weight 86.18 kg [employer] Work Phone: [facility] 06-30-2024 08:30-0500 Diastolic blood pressure 88 mm[Hg] [employer] Work Phone: [facility] 06-30-2024 08:30-0500 Heart rate 85 /min [employer] Work Phone: [facility] 06-30-2024 08:30-0500 Respiratory rate 18 /min [employer] Work Phone: [facility] 06-30-2024 08:30-0500 Systolic blood pressure 145 mm[Hg] [employer] Work Phone: [facility] 05-28-2024 12:12-0500 Body mass index (BMI) [Ratio] 34.11 kg/m2 Shahriar [employer] SUPER[employer] Work Phone: [facility] 05-28-2024 12:12-0500 Body weight 85.28 kg Shahriar [employer] SUPERVISOR Work Phone: [facility] 05-28-2024 12:12-0500 Diastolic blood pressure 78 mm[Hg] Shahriar [employer] SUPERVISOR Work Phone: [facility] 05-28-2024 12:12-0500 Heart rate 90 /min Shahriar [employer] SUPERVISOR Work Phone: [facility] 05-28-2024 12:12-0500 Respiratory rate 16 /min Shahriar [employer] MA[employer] SUPERVISOR Work Phone: [facility] 05-28-2024 12:12-0500 SaO2% (BldA) [Mass fraction] 99 % Shahriar [employer] MA[employer] SUPERVISOR Work Phone: [facility] 05-28-2024 12:12-0500 Systolic blood pressure 138 mm[Hg] Shahriar [employer] MA[employer] SUPERVISOR Work Phone: [facility] 05-14-2024 16:05-0500 Body temperature 97.7 [degF] [employer] Work Phone: [facility] 05-14-2024 16:05-0500 Diastolic blood pressure 70 mm[Hg] [employer] Work Phone: [facility] 05-14-2024 16:05-0500 Heart rate 75 /min [employer] Work Phone: [facility] 05-14-2024 16:05-0500 Respiratory rate 18 /min [employer] Work Phone: [facility] 05-14-2024 16:05-0500 SaO2% (BldA) [Mass fraction] 100 % [employer] Work Phone: [facility] 05-14-2024 16:05-0500 Systolic blood pressure 129 mm[Hg] [employer] Work Phone: [facility] 05-14-2024 13:44-0500 Body height 160.02 cm [employer] Work Phone: [facility] 05-14-2024 13:44-0500 Body mass index (BMI) [Ratio] 33.2 kg/m2 [employer] Work Phone: [facility] 05-14-2024 13:44-0500 Body weight 85 kg [employer] Work Phone: [facility] 05-14-2024 09:23-0500 Body mass index (BMI) [Ratio] 34.11 kg/m2 Shahriar [employer] SUPERVISOR Work Phone: [facility] 05-14-2024 09:23-0500 Body weight 85.28 kg Shahriar [employer] MAKING SUPERVISOR Work Phone: [facility] 05-14-2024 09:23-0500 Diastolic blood pressure 58 mm[Hg] Shahriar [employer] MAKING SUPERVISOR Work Phone: [facility] 05-14-2024 09:23-0500 Heart rate 84 /min Shahriar [employer] MAKING SUPERVISOR Work Phone: [facility] 05-14-2024 09:23-0500 Respiratory rate 16 /min Shahriar [employer] MAKING SUPERVISOR Work Phone: [facility] 05-14-2024 09:23-0500 SaO2% (BldA) [Mass fraction] 98 % Shahriar [employer] MAKING SUPERVISOR Work Phone: [facility] 05-14-2024 09:23-0500 Systolic blood pressure 102 mm[Hg] Shahriar [employer] MAKING SUPERVISOR Work Phone: [facility] 05-11-2024 00:39-0500 Diastolic blood pressure 74 mm[Hg] [employer] Work Phone: [facility] 05-11-2024 00:39-0500 Heart rate 89 /min [employer] Work Phone: [facility] 05-11-2024 00:39-0500 Respiratory rate 16 /min [employer] Work Phone: [facility] 05-11-2024 00:39-0500 SaO2% (BldA) [Mass fraction] 98 % [employer] Work Phone: [facility] 05-11-2024 00:39-0500 Systolic blood pressure 150 mm[Hg] [employer] Work Phone: [facility] 05-11-2024 00:16-0500 Body temperature 98.6 [degF] [employer] Work Phone: [facility] 05-10-2024 15:55-0500 Body mass index (BMI) [Ratio] 33.4 kg/m2 [employer] Work Phone: [facility] 05-10-2024 15:55-0500 Body weight 85.63 kg [employer] Work Phone: [facility] 05-06-2024 14:18-0500 Body weight 86.18 kg [employer] Work Phone: [facility] 04-27-2024 13:54-0500 Body temperature 98 [degF] [employer] Work Phone: [facility] 04-27-2024 13:54-0500 Diastolic blood pressure 66 mm[Hg] [employer] Work Phone: [facility] 04-27-2024 13:54-0500 Heart rate 69 /min [employer] Work Phone: [facility] 04-27-2024 13:54-0500 Respiratory rate 18 /min [employer] Work Phone: [facility] 04-27-2024 13:54-0500 SaO2% (BldA) [Mass fraction] 99 % [employer] Work Phone: [facility] 04-27-2024 13:54-0500 Systolic blood pressure 124 mm[Hg] [employer] Work Phone: [facility] 04-27-2024 12:03-0500 Body mass index (BMI) [Ratio] 33.7 kg/m2 [employer] Work Phone: [facility] 04-27-2024 12:03-0500 Body weight 86.59 kg [employer] Work Phone: [facility] 04-15-2024 11:20-0500 Body mass index (BMI) [Ratio] 32.8 kg/m2 [employer] Work Phone: [facility] 04-15-2024 11:20-0500 Body weight 83.91 kg [employer] Work Phone: [facility] 04-15-2024 11:20-0500 Diastolic blood pressure 76 mm[Hg] [employer] Work Phone: [facility] 04-15-2024 11:20-0500 Heart rate 88 /min [employer] Work Phone: [facility] 04-15-2024 11:20-0500 Respiratory rate 16 /min [employer] Work Phone: [facility] 04-15-2024 11:20-0500 Systolic blood pressure 119 mm[Hg] [employer] Work Phone: [facility] 03-28-2024 12:56-0500 Body mass index (BMI) [Ratio] 33.75 kg/m2 Shahriar [employer] MA[employer] SUPERVISOR Work Phone: [facility] 03-28-2024 12:56-0500 Body temperature 97.81 [degF] Shahriar [employer] MAKING SUPERVISOR Work Phone: [facility] 03-28-2024 12:56-0500 Body weight 84.37 kg Shahriar [employer] MAKING SUPERVISOR Work Phone: [facility] 03-28-2024 12:56-0500 Diastolic blood pressure 80 mm[Hg] Shahriar [employer] MAKING SUPERVISOR Work Phone: [facility] 03-28-2024 12:56-0500 Heart rate 77 /min Shahriar [employer] MAKING SUPERVISOR Work Phone: [facility] 03-28-2024 12:56-0500 Respiratory rate 16 /min Shahriar [employer] MAKING SUPERVISOR Work Phone: [facility] 03-28-2024 12:56-0500 SaO2% (BldA) [Mass fraction] 99 % Shahriar [employer] MAKING SUPERVISOR Work Phone: [facility] 03-28-2024 12:56-0500 Systolic blood pressure 162 mm[Hg] Shahriar [employer] MAKING SUPERVISOR Work Phone: [facility] 02-14-2024 14:20-0400 Body mass index (BMI) [Ratio] 33.38 kg/m2 Shahriar [employer] MAKING SUPERVISOR Work Phone: [facility] 02-14-2024 14:20-0400 Body weight 83.46 kg Shahriar [employer] MAKING SUPERVISOR Work Phone: [facility] 02-14-2024 14:20-0400 Diastolic blood pressure 68 mm[Hg] Shahriar [employer] MAKING SUPERVISOR Work Phone: [facility] 02-14-2024 14:20-0400 Heart rate 88 /min Shahriar [employer]MER[employer] MAKING SUPERVISOR Work Phone: [facility] 02-14-2024 14:20-0400 Respiratory rate 16 /min Shahriar [employer]MER[employer] MAKING SUPERVISOR Work Phone: [facility] 02-14-2024 14:20-0400 SaO2% (BldA) [Mass fraction] 98 % Shahriar [employer] MAKING SUPERVISOR Work Phone: [facility] 02-14-2024 14:20-0400 Systolic blood pressure 112 mm[Hg] Shahriar [employer] MAKING SUPERVISOR Work Phone: [facility] 01-21-2024 14:25-0400 Body height 158.1 cm Chhaya Crowe MD Work Phone: [facility] 01-21-2024 14:25-0400 Body mass index (BMI) [Ratio] 34.15 kg/m2 Chhaya Crowe MD Work Phone: [facility] 01-21-2024 14:25-0400 Body weight 85.37 kg Chhaya Crowe MD Work Phone: [facility] 01-21-2024 14:25-0400 Diastolic blood pressure 76 mm[Hg] Chhaya Crowe MD Work Phone: [facility] 01-21-2024 14:25-0400 Systolic blood pressure 120 mm[Hg] Chhaya Crowe MD Work Phone: [facility] 01-17-2024 13:20-0400 Body mass index (BMI) [Ratio] 32.79 kg/m2 Shahriar [employer] MAKING SUPERVISOR Work Phone: [facility] 01-17-2024 13:20-0400 Body weight 85.3 kg Shahriar [employer]MER[employer] MAKING SUPERVISOR Work Phone: [facility] 01-17-2024 13:20-0400 Diastolic blood pressure 80 mm[Hg] Shahriar [employer]MER[employer] MAKING SUPERVISOR Work Phone: [facility] 01-17-2024 13:20-0400 Heart rate 80 /min Shahriar [employer]MER[employer] MAKING SUPERVISOR Work Phone: [facility] 01-17-2024 13:20-0400 Respiratory rate 16 /min Shahriar [employer]MER.[employer] MAKING SUPERVISOR Work Phone: [facility] 01-17-2024 13:20-0400 SaO2% (BldA) [Mass fraction] 98 % Shahriar [employer] MAKING SUPERVISOR Work Phone: [facility] 01-17-2024 13:20-0400 Systolic blood pressure 132 mm[Hg] Shahriar [employer] MAKING SUPERVISOR Work Phone: [facility] 12-18-2023 07:58-0400 Body mass index (BMI) [Ratio] 33.13 kg/m2 Shahriar [employer] MAKING SUPERVISOR Work Phone: [facility] 12-18-2023 07:58-0400 Body weight 86.18 kg Shahriar [employer]MER[employer] MAKING SUPERVISOR Work Phone: [facility] 12-18-2023 07:58-0400 Diastolic blood pressure 80 mm[Hg] Shahriar [employer]MER[employer] MAKING SUPERVISOR Work Phone: [facility] 12-18-2023 07:58-0400 Heart rate 80 /min Shahriar [employer]MER.[employer] MAKING SUPERVISOR Work Phone: [facility] 12-18-2023 07:58-0400 Respiratory rate 16 /min Shahriar [employer]MER.[employer] MAKING SUPERVISOR Work Phone: [facility] 12-18-2023 07:58-0400 SaO2% (BldA) [Mass fraction] 98 % Shahriar [employer]MER[employer] MAKING SUPERVISOR Work Phone: [facility] 12-18-2023 07:58-0400 Systolic blood pressure 138 mm[Hg] Shahriar [employer]MER[employer] MAKING SUPERVISOR Work Phone: [facility] 09-27-2023 14:30-0400 Diastolic blood pressure 79 mm[Hg] Ya Cleveland MD Work Phone: [facility] 09-27-2023 14:30-0400 Heart rate 85 /min Ya Cleveland MD Work Phone: [facility] 09-27-2023 14:30-0400 Respiratory rate 31 /min Ya Cleveland MD Work Phone: [facility] 09-27-2023 14:30-0400 SaO2% (BldA) [Mass fraction] 96 % Ya Cleveland MD Work Phone: [facility] 09-27-2023 14:30-0400 Systolic blood pressure 153 mm[Hg] Ya Cleveland MD Work Phone: [facility] 09-27-2023 11:00-0400 Body temperature 98.29 [degF] Ya Cleveland MD Work Phone: [facility] 09-27-2023 06:51-0400 Body height 160 cm Ya Cleveland MD Work Phone: [facility] 09-27-2023 06:51-0400 Body mass index (BMI) [Ratio] 32.96 kg/m2 Ya Cleveland MD Work Phone: [facility] [facility] 09[facility]-2023 06:51-0400 Body weight 84.4 kg Ya Cleveland MD Work Phone: [facility] 09-26-2023 11:44-0400 Body height 160 cm Ya Cleveland MD Work Phone: [facility] 09-26-2023 11:44-0400 Diastolic blood pressure 65 mm[Hg] Ya Cleveland MD Work Phone: 4(916)744-503032 [address] 09-26-2023 11:44-0400 Heart rate 74 /min Ya Cleveland MD Work Phone: [facility] 09-26-2023 11:44-0400 Systolic blood pressure 120 mm[Hg] Ya Cleveland MD Work Phone: 8(811)132-833832 [address] 08-16-2023 13:14-0400 Body height 160.[address] Opal Mathews Work Phone: 9(143)912-769190 [place] [address] 08-16-2023 13:14-0400 Body mass index (BMI) [Ratio] 32.2 kg/m2 Dr. Opal Mathews Work Phone: 6(245)157-334102 [place] [address] 08-16-2023 13:14-0400 Body weight 82.[address] Opal Mathews Work Phone: 3(847)852-660902 [place] [address] 08-16-2023 13:14-0400 Diastolic blood pressure 82 mm[Hg] Dr. Opal Mathews Work Phone: 1(539)755-482602 [place] [address] 08-16-2023 13:14-0400 Heart rate 87 /min Dr. Opal Mathews Work Phone: [facility] 08-16-2023 13:14-0400 Respiratory rate 14 /min Dr. Opal Mathews Work Phone: 7(655)530-864102 [place] [address] 08-16-2023 13:14-0400 SaO2% (BldA) [Mass fraction] 98 % Dr. Opal Mathews Work Phone: [facility] 08-16-2023 13:14-0400 Systolic blood pressure 169 mm[Hg] Dr. Opal Mathews Work Phone: [facility] 08-09-2023 07:55-0400 Diastolic blood pressure 86 mm[Hg] Shahriar Older [employer] SUPERVISOR Work Phone: [facility] 08-09-2023 07:55-0400 Systolic blood pressure 142 mm[Hg] Shahriar Older [employer]MER.[employer] MAKING SUPERVISOR Work Phone: [facility] 08-09-2023 07:31-0400 Body weight 80.74 kg Shahriar Older [employer] MAKING SUPERVISOR Work Phone: [facility] 08-09-2023 07:31-0400 Heart rate 80 /min Shahriar Older [employer]MER.[employer] MAKING SUPERVISOR Work Phone: [facility] 08-09-2023 07:31-0400 Respiratory rate 16 /min Shahriar Older [employer] MAKING SUPERVISOR Work Phone: [facility] 08-09-2023 07:31-0400 SaO2% (BldA) [Mass fraction] 98 % Shahriar Older [employer] MAKING SUPERVISOR Work Phone: [facility] 07-05-2023 08:10-0500 Body weight 83.01 kg Shahriar Older [employer]KING SUPERVISOR Work Phone: [facility] 07-05-2023 08:10-0500 Diastolic blood pressure 88 mm[Hg] Shahriar Older [employer]MER.[employer] MAKING SUPERVISOR Work Phone: [facility] 07-05-2023 08:10-0500 Heart rate 84 /min Shahriar Older [employer]MER.[employer] MAKING SUPERVISOR Work Phone: [facility] 07-05-2023 08:10-0500 Respiratory rate 16 /min Shahriar Older [employer]MER.[employer] MAKING SUPERVISOR Work Phone: [facility] 07-05-2023 08:10-0500 SaO2% (BldA) [Mass fraction] 99 % Shahriar Older [employer]MER.[employer] MAKING SUPERVISOR Work Phone: [facility] 07-05-2023 08:10-0500 Systolic blood pressure 160 mm[Hg] Shahriar Kevin [employer]MER.[employer] MAKING SUPERVISOR Work Phone: [facility] 06-21-2023 18:34-0500 Body temperature 98.5 [degF] Dr. Opal Mathews Work Phone: [facility] 06-21-2023 18:34-0500 Diastolic blood pressure 75 mm[Hg] Dr. Opal Mathews Work Phone: [facility] 06-21-2023 18:34-0500 Heart rate 78 /min Dr. Opal Mathews Work Phone: [facility] 06-21-2023 18:34-0500 Respiratory rate 16 /min Dr. Opal Mathews Work Phone: [facility] 06-21-2023 18:34-0500 SaO2% (BldA) [Mass fraction] 98 % Dr. Opal Mathews Work Phone: [facility] 06-21-2023 18:34-0500 Systolic blood pressure 146 mm[Hg] Dr. Opal Mathews Work Phone: [facility] 06-21-2023 15:04-0500 Body height 160.[address] Opal Mathews Work Phone: [facility] 06-21-2023 15:04-0500 Body mass index (BMI) [Ratio] 32.8 kg/m2 Dr. Opal Mathews Work Phone: [facility] 06-21-2023 15:04-0500 Body weight 84.[address] Opal Mathews Work Phone: [facility] 06-21-2023 14:44-0500 Body temperature 99.39 [degF] Rubi Araya PA-C Work Phone: [facility] 06-21-2023 14:44-0500 Body weight 83.92 kg Rubi Araya PA-C Work Phone: [facility] 06-21-2023 14:44-0500 Diastolic blood pressure 78 mm[Hg] Rubi Athy PA-C Work Phone: [facility] 06-21-2023 14:44-0500 Heart rate 74 /min Rubi Athy PA-C Work Phone: [facility] 06-21-2023 14:44-0500 Respiratory rate 16 /min Rubi Athy PA-C Work Phone: [facility] 06-21-2023 14:44-0500 SaO2% (BldA) [Mass fraction] 99 % Rubi Athy PA-C Work Phone: [facility] 06-21-2023 14:44-0500 Systolic blood pressure 138 mm[Hg] Rubi Athy PA-C Work Phone: [facility] 06-05-2023 09:42-0500 Body height 160.[address] Opal Mathews Work Phone: 9(987)452-557202 [place] [address] 06-05-2023 09:42-0500 Body mass index (BMI) [Ratio] 32.8 kg/m2 Dr. Opal Mathews Work Phone: 4(198)756-743090 [place] [address] 06-05-2023 09:42-0500 Body weight 83.[address] Opal Mathews Work Phone: 2(704)722-683890 [place] [address] 06-05-2023 09:42-0500 Diastolic blood pressure 85 mm[Hg] Dr. Opal Mathews Work Phone: 8(695)961-712302 [place] [address] 06-05-2023 09:42-0500 Heart rate 77 /min Dr. Opal Mathews Work Phone: 5(057)573-730990 [place] [address] 06-05-2023 09:42-0500 Respiratory rate 18 /min Dr. Opal Mathews Work Phone: 9(298)686-160902 [place] [address] 06-05-2023 09:42-0500 Systolic blood pressure 153 mm[Hg] Dr. Opal Mathews Work Phone: 5(768)001-308290 [place] [address] 04-29-2023 05:42-0500 Diastolic blood pressure 84 mm[Hg] Dr. Opal Mathews Work Phone: 9(809)199-479190 [place] [address] 04-29-2023 05:42-0500 Heart rate 77 /min Dr. Opal Mathews Work Phone: 0(834)694-815290 [place] [address] 04-29-2023 05:42-0500 Respiratory rate 18 /min Dr. Opal Mathews Work Phone: 5(587)723-860390 [place] [address] 04-29-2023 05:42-0500 SaO2% (BldA) [Mass fraction] 96 % Dr. Opal Mathews Work Phone: 9(154)035-458790 [place] [address] 04-29-2023 05:42-0500 Systolic blood pressure 168 mm[Hg] Dr. Opal Mathews Work Phone: 7(827)374-090890 [place] [address] 04-28-2023 23:46-0500 Body height 160.[address] Opal Mathews Work Phone: 7(211)762-823390 [place] [address] 04-28-2023 23:46-0500 Body mass index (BMI) [Ratio] 32.6 kg/m2 Dr. Opal Mathews Work Phone: 8(634)744-812990 [place] [address] 04-28-2023 23:46-0500 Body temperature 98 [degF] Dr. pOal Mathews Work Phone: 0(368)160-132690 [place] [address] 04-28-2023 23:46-0500 Body weight 83.[address] Opal Mathews Work Phone: 0(622)509-888390 [place] [address] 04-18-2023 11:48-0500 Body weight 84.[address] Opal Mathews Work Phone: 2(779)157-657790 [place] [address] 04-16-2023 15:33-0500 Body temperature 97.9 [degF] Rubi Araya PA-C Work Phone: 1(070)985-679414 [place] [address] 04-16-2023 15:33-0500 Body weight 84.46 kg Rubi Araya PA-C Work Phone: 6(843)924-740314 [place] [address] 04-16-2023 15:33-0500 Diastolic blood pressure 83 mm[Hg] Rubi Athy PA-C Work Phone: [facility] 04-16-2023 15:33-0500 Heart rate 77 /min Rubi Athy PA-C Work Phone: [facility] 04-16-2023 15:33-0500 Respiratory rate 18 /min Rubi Athy PA-C Work Phone: [facility] 04-16-2023 15:33-0500 SaO2% (BldA) [Mass fraction] 98 % Rubi Athy PA-C Work Phone: [facility] 04-16-2023 15:33-0500 Systolic blood pressure 151 mm[Hg] Rubi Athy PA-C Work Phone: [facility] 03-29-2023 23:49-0500 Diastolic blood pressure 71 mm[Hg] Dr. Opal Mathews Work Phone: [facility] 03-29-2023 23:49-0500 Heart rate 78 /min Dr. Opal Mathews Work Phone: [facility] 03-29-2023 23:49-0500 Respiratory rate 20 /min Dr. Opal Mathews Work Phone: [facility] 03-29-2023 23:49-0500 SaO2% (BldA) [Mass fraction] 98 % Dr. Opal Mathews Work Phone: [facility] 03-29-2023 23:49-0500 Systolic blood pressure 131 mm[Hg] Dr. Opal Mathews Work Phone: [facility] 03-29-2023 22:14-0500 Body height 160.[address] Opal Mathews Work Phone: [facility] 03-29-2023 22:14-0500 Body mass index (BMI) [Ratio] 33.1 kg/m2 Dr. Opal Mathews Work Phone: [facility] 03-29-2023 22:14-0500 Body temperature 97.9 [degF] Dr. Opal Mathews Work Phone: [facility] 03-29-2023 22:14-0500 Body weight 84.[address] Opal Mathews Work Phone: [facility] 03-28-2023 15:50-0500 Diastolic blood pressure 70 mm[Hg] Shahriar Older [employer] SUPERVISOR Work Phone: [facility] 03-28-2023 15:50-0500 Systolic blood pressure 130 mm[Hg] Shahriar Older [employer]MER.[employer] MAKING SUPERVISOR Work Phone: [facility] 03-28-2023 15:35-0500 Body weight 84.82 kg Shahriar Older [employer]MER.[employer] MAKING SUPERVISOR Work Phone: [facility] 03-28-2023 15:35-0500 Heart rate 74 /min Shahriar Older [employer]MER.[employer] MAKING SUPERVISOR Work Phone: [facility] 03-28-2023 15:35-0500 Respiratory rate 16 /min Shahriar Older [employer]MER.[employer] MAKING SUPERVISOR Work Phone: [facility] 03-28-2023 15:35-0500 SaO2% (BldA) [Mass fraction] 99 % Shahriar Older [employer]MER.[employer] MAKING SUPERVISOR Work Phone: [facility] 03-21-2023 13:05-0500 Body mass index (BMI) [Ratio] 32.8 kg/m2 Dr. Opal Mathews Work Phone: [facility] 03-21-2023 13:05-0500 Body weight 83.[address] Opal Mathews Work Phone: [facility] 03-21-2023 13:05-0500 Diastolic blood pressure 75 mm[Hg] Dr. Opal Mathews Work Phone: [facility] 03-21-2023 13:05-0500 Heart rate 76 /min Dr. Opal Mathews Work Phone: [facility] 03-21-2023 13:05-0500 Respiratory rate 18 /min Dr. Opal Mathews Work Phone: [facility] 03-21-2023 13:05-0500 Systolic blood pressure 126 mm[Hg] Dr. Opal Mathews Work Phone: [facility] 03-21-2023 08:16-0500 Body weight 82.[address] Opal Mathews Work Phone: [facility] 03-12-2023 13:06-0500 Body height 161.3 cm Ivett Denbow PA-C Work Phone: [facility] 03-12-2023 13:06-0500 Body temperature 98.01 [degF] Ivett Denbow PA-C Work Phone: [facility] 03-12-2023 13:06-0500 Body weight 83.01 kg Ivett Denbow PA-C Work Phone: [facility] 03-12-2023 13:06-0500 Diastolic blood pressure 70 mm[Hg] Ivett Denbow PA-C Work Phone: [facility] 03-12-2023 13:06-0500 Heart rate 78 /min Ivett Denbow PA-C Work Phone: [facility] 03-12-2023 13:06-0500 Respiratory rate 12 /min Ivett Denbow PA-C Work Phone: [facility] 03-12-2023 13:06-0500 SaO2% (BldA) [Mass fraction] 99 % Ivett Denbow PA-C Work Phone: [facility] 03-12-2023 13:06-0500 Systolic blood pressure 138 mm[Hg] Ivett Denbow PA-C Work Phone: [facility] 02-28-2023 10:44-0400 Body weight 83.92 kg Shahriar Older [employer] SUPERVISOR Work Phone: [facility] 02-28-2023 10:44-0400 Diastolic blood pressure 82 mm[Hg] Shahriar Older [employer]MER.[employer] MAKING SUPERVISOR Work Phone: [facility] 02-28-2023 10:44-0400 Heart rate 80 /min Shahriar Older [employer]MER.[employer] MAKING SUPERVISOR Work Phone: [facility] 02-28-2023 10:44-0400 Respiratory rate 16 /min Shahriar Older [employer]MER.[employer] MAKING SUPERVISOR Work Phone: [facility] 02-28-2023 10:44-0400 SaO2% (BldA) [Mass fraction] 99 % Shahriar Older [employer]MER.[employer] MAKING SUPERVISOR Work Phone: [facility] 02-28-2023 10:44-0400 Systolic blood pressure 142 mm[Hg] Shahriar Older [employer]MER.[employer] MAKING SUPERVISOR Work Phone: [facility] 02-27-2023 19:00-0400 Diastolic blood pressure 84 mm[Hg] Dr. Opal Mathews Work Phone: [facility] 02-27-2023 19:00-0400 Heart rate 82 /min Dr. Opal Mathews Work Phone: [facility] 02-27-2023 19:00-0400 Respiratory rate 13 /min Dr. Opal Mathews Work Phone: [facility] 02-27-2023 19:00-0400 SaO2% (BldA) [Mass fraction] 96 % Dr. Opal Mathews Work Phone: [facility] 02-27-2023 19:00-0400 Systolic blood pressure 122 mm[Hg] Dr. Opal Mathews Work Phone: [facility] 02-27-2023 16:14-0400 Body height 160.[address] Opal Mathews Work Phone: [facility] 02-27-2023 16:14-0400 Body mass index (BMI) [Ratio] 33.3 kg/m2 Dr. Opal Mathews Work Phone: [facility] 02-27-2023 16:14-0400 Body temperature 97 [degF] Dr. Opal Mathews Work Phone: 3(567)935-990802 [place] [address] 02-27-2023 16:14-0400 Body weight 85.[address] Opal Mathews Work Phone: 5(964)756-929490 [place] [address] 02-21-2023 12:59-0400 Body mass index (BMI) [Ratio] 32.9 kg/m2 Dr. Opal Mathews Work Phone: 8(937)530-748890 [place] [address] 02-21-2023 12:59-0400 Body weight 84.[address] Opal Mathews Work Phone: 1(845)546-118490 [place] [address] 02-21-2023 12:59-0400 Diastolic blood pressure 79 mm[Hg] Dr. Opal Mathews Work Phone: 6(900)631-067790 [place] [address] 02-21-2023 12:59-0400 Heart rate 88 /min Dr. Opal Mathews Work Phone: 2(478)693-340490 [place] [address] 02-21-2023 12:59-0400 Respiratory rate 16 /min Dr. Opal Mathews Work Phone: 7(848)277-073190 [place] [address] 02-21-2023 12:59-0400 Systolic blood pressure 126 mm[Hg] Dr. Opal Mathews Work Phone: 1(991)507-952990 [place] [address] 02-16-2023 08:41-0400 Body weight 85.[address] Opal Mathews Work Phone: 4(617)896-545990 [place] [address] 01-24-2023 10:19-0400 Body height 160.[address] Opal Mathews Work Phone: 6(988)783-758390 [place] [address] 01-24-2023 10:19-0400 Body mass index (BMI) [Ratio] 32.9 kg/m2 Dr. Opal Mathews Work Phone: 1(330)847-041190 [place] [address] 01-24-2023 10:19-0400 Body weight 84.[address] Opal Mathews Work Phone: 1(590)275-436490 [place] [address] 01-24-2023 10:19-0400 Diastolic blood pressure 80 mm[Hg] Dr. Opal Mathews Work Phone: 7(943)751-985290 [place] [address] 01-24-2023 10:19-0400 Heart rate 86 /min Dr. Opal Mathews Work Phone: 8(726)941-369602 [place] [address] 01-24-2023 10:19-0400 Respiratory rate 20 /min Dr. Opal Mathews Work Phone: 8(060)826-954290 [place] [address] 01-24-2023 10:19-0400 Systolic blood pressure 135 mm[Hg] Dr. Opal Mathews Work Phone: 1(205)287-918190 [place] [address] 01-19-2023 09:12-0400 Body mass index (BMI) [Ratio] 33.6 kg/m2 Dr. Opal Mathews Work Phone: 4(152)386-831590 [place] [address] 01-19-2023 08:39-0400 Diastolic blood pressure 80 mm[Hg] Dr. Opal Mathews Work Phone: 9(452)255-363590 [place] [address] 01-19-2023 08:39-0400 Heart rate 87 /min Dr. Opal Mathews Work Phone: 8(467)651-200590 [place] [address] 01-19-2023 08:39-0400 SaO2% (BldA) [Mass fraction] 98 % Dr. Opal Mathews Work Phone: 8(590)304-770790 [place] [address] 01-19-2023 08:39-0400 Systolic blood pressure 132 mm[Hg] Dr. Opal Mathews Work Phone: 0(734)804-129690 [place] [address] 01-19-2023 08:15-0400 Body height 160.[address] Opal Mathews Work Phone: 6(046)820-512990 [place] [address] 01-19-2023 08:15-0400 Body weight 86.[address] Opal Mathews Work Phone: 0(676)578-431190 [place] [address] 12-31-2022 18:15-0400 Body temperature 98.6 [degF] Dr. Opal Mathews Work Phone: 2(571)833-264790 [place] [address] 12-31-2022 18:09-0400 Diastolic blood pressure 77 mm[Hg] Dr. Opal Mathews Work Phone: 7(358)074-778190 [place] [address] 12-31-2022 18:09-0400 Heart rate 79 /min Dr. Opal Mathews Work Phone: 7(046)879-031190 [place] [address] 12-31-2022 18:09-0400 Respiratory rate 18 /min Dr. Opal Mathews Work Phone: 7(333)028-276390 [place] [address] 12-31-2022 18:09-0400 SaO2% (BldA) [Mass fraction] 97 % Dr. Opal Mathews Work Phone: 6(310)205-188290 [place] [address] 12-31-2022 18:09-0400 Systolic blood pressure 141 mm[Hg] Dr. Opal Mathews Work Phone: 6(349)071-598790 [place] [address] 12-31-2022 13:46-0400 Body mass index (BMI) [Ratio] 33 kg/m2 Dr. Opal Mathews Work Phone: 5(113)653-595590 [place] [address] 12-31-2022 13:46-0400 Body weight 84.[address] Opal Mathews Work Phone: 0(927)631-612990 [place] [address] 12-28-2022 11:00-0400 Body temperature 98.1 [degF] Dr. Opal Mathews Work Phone: 1(418)326-450590 [place] [address] 12-28-2022 11:00-0400 Diastolic blood pressure 70 mm[Hg] Dr. Opal Mathews Work Phone: 7(615)048-149890 [place] [address] 12-28-2022 11:00-0400 Heart rate 72 /min Dr. Opal Mathews Work Phone: 8(663)374-278390 [place] [address] 12-28-2022 11:00-0400 Systolic blood pressure 130 mm[Hg] Dr. Opal Mathews Work Phone: 1(629)334-654990 [place] [address] 12-28-2022 08:11-0400 Body temperature 98 [degF] Dr. Opal Mathews Work Phone: 6(454)132-772590 [place] [address] 12-28-2022 08:11-0400 Diastolic blood pressure 76 mm[Hg] Dr. Opal Mathews Work Phone: 7(334)149-404990 [place] [address] 12-28-2022 08:11-0400 Heart rate 75 /min Dr. Opal Mathews Work Phone: 2(761)453-628090 [place] [address] 12-28-2022 08:11-0400 Respiratory rate 14 /min Dr. Opal Mathews Work Phone: [facility] 12-28-2022 08:11-0400 SaO2% (BldA) [Mass fraction] 99 % Dr. Opal Mathews Work Phone: [facility] 12-28-2022 08:11-0400 Systolic blood pressure 148 mm[Hg] Dr. Opal Mathews Work Phone: [facility] 12-28-2022 05:41-0400 Body mass index (BMI) [Ratio] 33.9 kg/m2 Dr. Opal Mathews Work Phone: [facility] 12-28-2022 05:41-0400 Body weight 86.[address] Opal Mathews Work Phone: [facility] 12-27-2022 14:50-0400 Body height 160.[address] Opal Mathews Work Phone: [facility] 12-20-2022 17:26-0400 Body temperature 98.71 [degF] Shahriar Older [employer]KING SUPERVISOR Work Phone: [facility] 12-20-2022 17:26-0400 Diastolic blood pressure 74 mm[Hg] Shahriar Older [employer]MER.[employer] MAKING SUPERVISOR Work Phone: [facility] 12-20-2022 17:26-0400 Heart rate 84 /min Shahriar Older [employer]MER.[employer] MAKING SUPERVISOR Work Phone: [facility] 12-20-2022 17:26-0400 Respiratory rate 16 /min Shahriar Older [employer]MER.[employer] MAKING SUPERVISOR Work Phone: [facility] 12-20-2022 17:26-0400 SaO2% (BldA) [Mass fraction] 98 % Shahriar Older [employer]MER.[employer] MAKING SUPERVISOR Work Phone: [facility] 12-20-2022 17:26-0400 Systolic blood pressure 132 mm[Hg] Shahriar Older [employer] FORMER.M[employer] MAKING SUPERVISOR Work Phone: [facility] 12-14-2022 10:36-0400 Body temperature 98.2 [degF] Shahriar Older [employer] FORMER.[employer] MAKING SUPERVISOR Work Phone: [facility] 12-14-2022 10:36-0400 Body weight 84.82 kg Shahriar Older [employer] FORMER.[employer] MAKING SUPERVISOR Work Phone: [facility] 12-14-2022 10:36-0400 Diastolic blood pressure 82 mm[Hg] Shahriar Older [employer] FORMER.M[employer] MAKING SUPERVISOR Work Phone: [facility] 12-14-2022 10:36-0400 Heart rate 72 /min Shahriar Older [employer] FORMER.M[employer] MAKING SUPERVISOR Work Phone: [facility] 12-14-2022 10:36-0400 Respiratory rate 16 /min Shahriar Older [employer] FORMER.M[employer] MAKING SUPERVISOR Work Phone: [facility] 12-14-2022 10:36-0400 SaO2% (BldA) [Mass fraction] 99 % Shahriar Older [employer] FORMER.[employer] MAKING SUPERVISOR Work Phone: [facility] 12-14-2022 10:36-0400 Systolic blood pressure 144 mm[Hg] Shahriar Older [employer] FORMER.[employer] MAKING SUPERVISOR Work Phone: [facility] 12-09-2022 14:55-0400 Body temperature 99 [degF] John Pendlebury [employer]MER.[employer] MAKING SUPERVISOR Work Phone: [facility] 12-09-2022 14:55-0400 Body weight 86.64 kg John Pendlebury [employer]MER.M[employer] MAKING SUPERVISOR Work Phone: [facility] 12-09-2022 14:55-0400 Diastolic blood pressure 80 mm[Hg] John Pendlebury [employer] FORMER.MOLD MAKING SUPERVISOR Work Phone: [facility] 12-09-2022 14:55-0400 Heart rate 82 /min John Pendlebury [employer]MER.MOLD MAKING SUPERVISOR Work Phone: [facility] 12-09-2022 14:55-0400 Respiratory rate 16 /min John Pendlebury [employer]MER.M[employer] MAKING SUPERVISOR Work Phone: [facility] 12-09-2022 14:55-0400 SaO2% (BldA) [Mass fraction] 98 % John Barthpatricia [employer]MER.M[employer] MAKING SUPERVISOR Work Phone: [facility] 12-09-2022 14:55-0400 Systolic blood pressure 134 mm[Hg] John Michael [employer]MER.[employer] MAKING SUPERVISOR Work Phone: [facility] 12-03-2022 11:12-0400 Body height 160.[address] Opal Mathews Work Phone: [facility] 12-03-2022 11:12-0400 Body mass index (BMI) [Ratio] 33.3 kg/m2 Dr. Opal Mathews Work Phone: [facility] 12-03-2022 11:12-0400 Body temperature 97.7 [degF] Dr. Opal Mathews Work Phone: [facility] 12-03-2022 11:12-0400 Body weight 85.[address] Opal Mathews Work Phone: [facility] 12-03-2022 11:12-0400 Diastolic blood pressure 81 mm[Hg] Dr. Opal Mathews Work Phone: [facility] 12-03-2022 11:12-0400 Heart rate 86 /min Dr. Opal Mathews Work Phone: [facility] 12-03-2022 11:12-0400 Respiratory rate 18 /min Dr. Opal Mathews Work Phone: [facility] 12-03-2022 11:12-0400 SaO2% (BldA) [Mass fraction] 99 % Dr. Opal Mathews Work Phone: [facility] 12-03-2022 11:12-0400 Systolic blood pressure 125 mm[Hg] Dr. Opal Mathews Work Phone: [facility] 12-03-2022 10:50-0400 Body temperature 98.4 [degF] Rubi Araya PA-C Work Phone: [facility] 12-03-2022 10:50-0400 Body weight 85.28 kg Rubi Athy PA-C Work Phone: [facility] 12-03-2022 10:50-0400 Diastolic blood pressure 84 mm[Hg] Rubi Athy PA-C Work Phone: [facility] 12-03-2022 10:50-0400 Heart rate 79 /min Rubi Athy PA-C Work Phone: [facility] 12-03-2022 10:50-0400 Respiratory rate 18 /min Rubi Athy PA-C Work Phone: [facility] 12-03-2022 10:50-0400 SaO2% (BldA) [Mass fraction] 98 % Rubi Athy PA-C Work Phone: [facility] 12-03-2022 10:50-0400 Systolic blood pressure 142 mm[Hg] Rubi Athy PA-C Work Phone: [facility] 11-27-2022 21:04-0400 Respiratory rate 16 /min Dr. Opal Mathews Work Phone: [facility] 11-27-2022 15:55-0400 Body mass index (BMI) [Ratio] 33.5 kg/m2 Dr. Opal Mathews Work Phone: [facility] 11-27-2022 15:55-0400 Body temperature 97.8 [degF] Dr. Opal Mathews Work Phone: [facility] 11-27-2022 15:55-0400 Body weight 85.[address] Opal Mathews Work Phone: [facility] 11-27-2022 15:55-0400 Diastolic blood pressure 86 mm[Hg] Dr. Opal Mathews Work Phone: [facility] 11-27-2022 15:55-0400 Heart rate 81 /min Dr. Opal Mathews Work Phone: [facility] 11-27-2022 15:55-0400 SaO2% (BldA) [Mass fraction] 100 % Dr. Opal Mathews Work Phone: 1(244)548-207302 [place] [address] 11-27-2022 15:55-0400 Systolic blood pressure 154 mm[Hg] Dr. Opal Mathews Work Phone: 2(623)308-603890 [place] [address] 11-16-2022 14:55-0400 Body mass index (BMI) [Ratio] 33.6 kg/m2 Dr. Opal Mtahews Work Phone: 0(920)957-321890 [place] [address] 11-16-2022 14:55-0400 Body weight 86.[address] Opal Mathews Work Phone: 3(095)264-292390 [place] [address] 11-16-2022 14:55-0400 Diastolic blood pressure 85 mm[Hg] Dr. Opal Mathews Work Phone: 9(465)143-821890 [place] [address] 11-16-2022 14:55-0400 Heart rate 90 /min Dr. Opal Mathews Work Phone: 0(752)335-420390 [place] [address] 11-16-2022 14:55-0400 Respiratory rate 16 /min Dr. Opal Mathews Work Phone: 8(720)526-138890 [place] [address] 11-16-2022 14:55-0400 Systolic blood pressure 136 mm[Hg] Dr. Opal Mathews Work Phone: 7(382)494-350790 [place] [address] 10-12-2022 10:09-0400 Body height 161.3 cm Chhaya Crowe MD Work Phone: 8(037)704-558814 [place] [address] 10-12-2022 10:09-0400 Body weight 87.77 kg Chhaya Crowe MD Work Phone: 2(657)341-476914 [place] [address] 10-12-2022 10:09-0400 Diastolic blood pressure 72 mm[Hg] Chhaya Crowe MD Work Phone: [facility] 10-12-2022 10:09-0400 Systolic blood pressure 128 mm[Hg] Chhaya Crowe MD Work Phone: 6(983)041-888614 [place] [address] 10-12-2022 08:31-0400 Diastolic blood pressure 71 mm[Hg] Dr. Opal Mathews Work Phone: 8(287)962-810290 [place] [address] 10-12-2022 08:31-0400 Systolic blood pressure 141 mm[Hg] Dr. Opal Mathews Work Phone: [facility] 10-12-2022 08:19-0400 Heart rate 75 /min Dr. Opal Mathews Work Phone: 5(153)597-132402 [place] [address] 10-12-2022 07:59-0400 Body mass index (BMI) [Ratio] 34.3 kg/m2 Dr. Opal Mathews Work Phone: [facility] 10-12-2022 07:59-0400 Body temperature 97.6 [degF] Dr. Opal Mathews Work Phone: 1(662)962-321802 [place] [address] 10-12-2022 07:59-0400 Body weight 87.[address] Opal Mathews Work Phone: 3(125)926-058902 [place] [address] 10-12-2022 07:59-0400 Respiratory rate 16 /min Dr. Opal Mathews Work Phone: [facility] 10-12-2022 07:59-0400 SaO2% (BldA) [Mass fraction] 100 % Dr. Opal Mathews Work Phone: [facility] 09-14-2022 09:22-0400 Diastolic blood pressure 82 mm[Hg] Shahriar Older [employer]MER.[employer] MAKING SUPERVISOR Work Phone: [facility] 09-14-2022 09:22-0400 Systolic blood pressure 138 mm[Hg] Shahriar Older [employer]MER.M[employer] MAKING SUPERVISOR Work Phone: [facility] 09-14-2022 08:55-0400 Body weight 86.64 kg Shahriar Older [employer]MER.M[employer] MAKING SUPERVISOR Work Phone: [facility] 09-14-2022 08:55-0400 Heart rate 80 /min Shahriar Older [employer]MER.M[employer] MAKING SUPERVISOR Work Phone: [facility] 09-14-2022 08:55-0400 Respiratory rate 16 /min Shahriar Older [employer] FORMER.M[employer] MAKING SUPERVISOR Work Phone: [facility] 09-04-2022 13:28-0400 Body temperature 97.7 [degF] Shahriar Older [employer] FORMER.M[employer] MAKING SUPERVISOR Work Phone: [facility] 09-04-2022 13:28-0400 Body weight 88 kg Shahriar Older [employer] FORMER.M[employer] MAKING SUPERVISOR Work Phone: [facility] 09-04-2022 13:28-0400 Diastolic blood pressure 90 mm[Hg] Shahriar Older [employer] FORMER.M[employer] MAKING SUPERVISOR Work Phone: [facility] 09-04-2022 13:28-0400 Heart rate 86 /min Shahriar Older [employer] FORMER.M[employer] MAKING SUPERVISOR Work Phone: [facility] 09-04-2022 13:28-0400 Respiratory rate 16 /min Shahriar Older [employer]MER.M[employer] MAKING SUPERVISOR Work Phone: [facility] 09-04-2022 13:28-0400 SaO2% (BldA) [Mass fraction] 98 % Shahriar Older [employer] FORMER.M[employer] MAKING SUPERVISOR Work Phone: [facility] 09-04-2022 13:28-0400 Systolic blood pressure 144 mm[Hg] Shahriar Older [employer] FORMER.M[employer] MAKING SUPERVISOR Work Phone: [facility] 08-17-2022 08:34-0400 Body temperature 98.49 [degF] Shahriar Older [employer] FORMER.M[employer] MAKING SUPERVISOR Work Phone: [facility] 08-17-2022 08:34-0400 Body weight 88 kg Shahriar Older [employer] FORMER.M[employer] MAKING SUPERVISOR Work Phone: [facility] 08-17-2022 08:34-0400 Diastolic blood pressure 90 mm[Hg] Shahriar Older [employer] FORMER.M[employer] MAKING SUPERVISOR Work Phone: [facility] 08-17-2022 08:34-0400 Heart rate 68 /min Shahriar Older [employer] FORMER.M[employer] MAKING SUPERVISOR Work Phone: [facility] 08-17-2022 08:34-0400 Respiratory rate 16 /min Shahriar Older [employer] FORMER.M[employer] MAKING SUPERVISOR Work Phone: [facility] 08-17-2022 08:34-0400 SaO2% (BldA) [Mass fraction] 98 % Shahriar Older [employer] FORMER.M[employer] MAKING SUPERVISOR Work Phone: [facility] 08-17-2022 08:34-0400 Systolic blood pressure 152 mm[Hg] Shahriar Older [employer] FORMER.M[employer] MAKING SUPERVISOR Work Phone: [facility] 08-08-2022 13:45-0400 Body height 160.[address] Opal Mathews Work Phone: [facility] 08-08-2022 13:45-0400 Body mass index (BMI) [Ratio] 33.8 kg/m2 Dr. Opal Mahtews Work Phone: [facility] 08-08-2022 13:45-0400 Body weight 86.[address] Opal Mathews Work Phone: [facility] 08-08-2022 13:45-0400 Diastolic blood pressure 85 mm[Hg] Dr. Opal Mathews Work Phone: [facility] 08-08-2022 13:45-0400 Heart rate 81 /min Dr. Opal Mathews Work Phone: [facility] 08-08-2022 13:45-0400 Respiratory rate 16 /min Dr. Opal Mathews Work Phone: [facility] 08-08-2022 13:45-0400 Systolic blood pressure 147 mm[Hg] Dr. Opal Mathews Work Phone: [facility] 07-17-2022 15:38-0400 Body height 157.5 cm Opal Mathews MD Work Phone: [facility] 07-17-2022 15:38-0400 Body temperature 99 [degF] Opal Mathews MD Work Phone: [facility] 07-17-2022 15:38-0400 Body weight 87.54 kg Opal Mathews MD Work Phone: [facility] 07-17-2022 15:38-0400 Diastolic blood pressure 70 mm[Hg] Opal Mathews MD Work Phone: [facility] 07-17-2022 15:38-0400 Heart rate 80 /min Opal Mathews MD Work Phone: [facility] 07-17-2022 15:38-0400 Respiratory rate 12 /min Opal Mathews MD Work Phone: [facility] 07-17-2022 15:38-0400 SaO2% (BldA) [Mass fraction] 97 % Opal Mathews MD Work Phone: [facility] 07-17-2022 15:38-0400 Systolic blood pressure 126 mm[Hg] Opal Mathews MD Work Phone: [facility] 06-26-2022 08:58-0500 Diastolic blood pressure 83 mm[Hg] Shahriar Older [employer]MER.[employer] MAKING SUPERVISOR Work Phone: [facility] 06-26-2022 08:58-0500 Systolic blood pressure 135 mm[Hg] Shahriar Older [employer] FORMER.M[employer] MAKING SUPERVISOR Work Phone: [facility] 06-26-2022 08:23-0500 Body weight 88 kg Shahriar Older [employer] FORMER.M[employer] MAKING SUPERVISOR Work Phone: [facility] 06-26-2022 08:23-0500 Heart rate 68 /min Shahriar Older [employer] FORMER.M[employer] MAKING SUPERVISOR Work Phone: [facility] 06-26-2022 08:23-0500 Respiratory rate 16 /min Shahriar Older [employer] FORMER.M[employer] MAKING SUPERVISOR Work Phone: [facility] 06-15-2022 15:30-0500 Diastolic blood pressure 81 mm[Hg] Shahriar Older [employer] FORMER.M[employer] MAKING SUPERVISOR Work Phone: [facility] 06-15-2022 15:30-0500 Heart rate 85 /min Shahriar Older [employer] FORMER.M[employer] MAKING SUPERVISOR Work Phone: [facility] 06-15-2022 15:30-0500 Systolic blood pressure 137 mm[Hg] Shahriar Older [employer] FORMER.M[employer] MAKING SUPERVISOR Work Phone: [facility] 06-15-2022 14:45-0500 Body temperature 99.1 [degF] Shahriar Older [employer] FORMER.M[employer] MAKING SUPERVISOR Work Phone: [facility] 06-15-2022 14:45-0500 Body weight 88.45 kg Shahriar Older [employer] FORMER.MOLD MAKING SUPERVISOR Work Phone: [facility] 06-15-2022 14:45-0500 Respiratory rate 16 /min Shahriar Older [employer] FORMER.MOLD MAKING SUPERVISOR Work Phone: [facility] 06-15-2022 14:45-0500 SaO2% (BldA) [Mass fraction] 99 % Shahriar Older [employer] FORMER.M[employer] MAKING SUPERVISOR Work Phone: [facility] 04-17-2022 09:54-0500 Diastolic blood pressure 82 mm[Hg] Shahriar Older [employer] FORMER.M[employer] MAKING SUPERVISOR Work Phone: [facility] 04-17-2022 09:54-0500 Systolic blood pressure 140 mm[Hg] Shahriar Older [employer] FORMER.M[employer] MAKING SUPERVISOR Work Phone: [facility] 04-17-2022 09:37-0500 Body height 157.5 cm Shahriar Older [employer] FORMER.MOLD MAKING SUPERVISOR Work Phone: [facility] 04-17-2022 09:37-0500 Body temperature 98.1 [degF] Shahriar Older [employer] FORMER.M[employer] MAKING SUPERVISOR Work Phone: [facility] 04-17-2022 09:37-0500 Body weight 88.91 kg Shahriar Older [employer] FORMER.M[employer] MAKING SUPERVISOR Work Phone: [facility] 04-17-2022 09:37-0500 Heart rate 75 /min Shahriar Older [employer] FORMER.M[employer] MAKING SUPERVISOR Work Phone: [facility] 04-17-2022 09:37-0500 SaO2% (BldA) [Mass fraction] 98 % Shahriar Older [employer] FORMER.M[employer] MAKING SUPERVISOR Work Phone: [facility] 02-14-2022 12:45-0400 Body temperature 99.1 [degF] Tracy Podlogar [employer] FORMER.MOLD MAKING SUPERVISOR Work Phone: [facility] 02-14-2022 12:45-0400 Body weight 89.18 kg Rtacy Podlogar [employer] FORMER.M[employer] MAKING SUPERVISOR Work Phone: [facility] 02-14-2022 12:45-0400 Diastolic blood pressure 88 mm[Hg] Tracy Podlogar [employer] FORMER.MOLD MAKING SUPERVISOR Work Phone: [facility] 02-14-2022 12:45-0400 Heart rate 80 /min Tracy Podlogar HAND [employer]ING FORMER.MOLD MAKING SUPERVISOR Work Phone: [facility] 02-14-2022 12:45-0400 Respiratory rate 18 /min Tracy Podlogar [employer] FORMER.MOLD MAKING SUPERVISOR Work Phone: [facility] 02-14-2022 12:45-0400 SaO2% (BldA) [Mass fraction] 97 % Tracy Podlogar [employer] FORMER.MOLD MAKING SUPERVISOR Work Phone: [facility] 02-14-2022 12:45-0400 Systolic blood pressure 130 mm[Hg] Tracy Podlogar [employer] FORMER.MOLD MAKING SUPERVISOR Work Phone: [facility] 02-07-2022 10:48-0400 Body temperature 98.29 [degF] Praisler-Wood [employer] FORMER.M[employer] MAKING SUPERVISOR Work Phone: [facility] 02-07-2022 10:48-0400 Body weight 89.72 kg Praisler-Wood [employer] FORMER.M[employer] MAKING SUPERVISOR Work Phone: [facility] 02-07-2022 10:48-0400 Diastolic blood pressure 80 mm[Hg] Praisler-Wood [employer] FORMER.MOLD MAKING SUPERVISOR Work Phone: [facility] 02-07-2022 10:48-0400 Heart rate 69 /min Praisler[employer]Wood [employer] FORMER.MOLD MAKING SUPERVISOR Work Phone: [facility] 02-07-2022 10:48-0400 Respiratory rate 16 /min Praisler[employer]Wood [employer] FORMER.MOLD MAKING SUPERVISOR Work Phone: [facility] 02-07-2022 10:48-0400 SaO2% (BldA) [Mass fraction] 98 % Praisler-Wood [employer] FORMER.M[employer] MAKING SUPERVISOR Work Phone: [facility] 02-07-2022 10:48-0400 Systolic blood pressure 132 mm[Hg] Praisler[employer]Wood [employer] FORMER.M[employer] MAKING SUPERVISOR Work Phone: [facility] 01-19-2022 09:04-0400 Diastolic blood pressure 86 mm[Hg] Shahriar Older [employer] FORMER.MOLD MAKING SUPERVISOR Work Phone: [facility] 01-19-2022 09:04-0400 Systolic blood pressure 136 mm[Hg] Shahriar Older [employer] FORMER.MOLD MAKING SUPERVISOR Work Phone: [facility] 01-19-2022 08:10-0400 Body weight 88.91 kg Shahriar Older [employer] FORMER.MOLD MAKING SUPERVISOR Work Phone: [facility] 01-19-2022 08:10-0400 Heart rate 68 /min Shahriar Older [employer] FORMER.MOLD MAKING SUPERVISOR Work Phone: [facility] 01-19-2022 08:10-0400 Respiratory rate 16 /min Shahriar Older [employer] FORMER.MOLD MAKING SUPERVISOR Work Phone: [facility] 11-20-2021 13:06-0400 Body temperature 98.29 [degF] Praisler[employer]Wood [employer] FORMER.MOLD MAKING SUPERVISOR Work Phone: [facility] 11-20-2021 13:06-0400 Body weight 88.72 kg Praisler-Wood [employer] FORMER.MOLD MAKING SUPERVISOR Work Phone: [facility] 11-20-2021 13:06-0400 Diastolic blood pressure 84 mm[Hg] Praisler[employer]Wood [employer] FORMER.MOLD MAKING SUPERVISOR Work Phone: [facility] 11-20-2021 13:06-0400 Heart rate 68 /min P[employer]ler[employer] FORMER.MOLD MAKING SUPERVISOR Work Phone: [facility] 11-20-2021 13:06-0400 Respiratory rate 16 /min P[employer]ler[employer] FORMER.MOLD MAKING SUPERVISOR Work Phone: [facility] 11-20-2021 13:06-0400 SaO2% (BldA) [Mass fraction] 98 % P[employer]ler[employer]Wood [employer] FORMER.MOLD MAKING SUPERVISOR Work Phone: [facility] 11-20-2021 13:06-0400 Systolic blood pressure 136 mm[Hg] P[employer]ler[employer]Wood [employer] FORMER.MOLD MAKING SUPERVISOR Work Phone: [facility] 10-13-2021 07:49-0400 Body weight 88.45 kg Shahriar Older [employer] FORMER.MOLD MAKING SUPERVISOR Work Phone: [facility] 10-13-2021 07:49-0400 Diastolic blood pressure 100 mm[Hg] Shahriar Older [employer] FORMER.MOLD MAKING SUPERVISOR Work Phone: [facility] 10-13-2021 07:49-0400 Heart rate 64 /min Shahriar Older [employer] FORMER.MOLD MAKING SUPERVISOR Work Phone: [facility] 10-13-2021 07:49-0400 Respiratory rate 16 /min Shahriar Older [employer] FORMER.MOLD MAKING SUPERVISOR Work Phone: [facility] 10-13-2021 07:49-0400 Systolic blood pressure 144 mm[Hg] Shahriar Older [employer] FORMER.MOLD MAKING SUPERVISOR Work Phone: [facility] 10-10-2021 18:09-0400 Body temperature 97.9 [degF] P[employer]ler[employer] FORMER.M[employer] MAKING SUPERVISOR Work Phone: [facility] 10-10-2021 18:09-0400 Body weight 90.54 kg Praisler-Wood [employer] FORMER.MOLD MAKING SUPERVISOR Work Phone: [facility] 10-10-2021 18:09-0400 Diastolic blood pressure 94 mm[Hg] Praisler[employer]Wood [employer] FORMER.MOLD MAKING SUPERVISOR Work Phone: [facility] 10-10-2021 18:09-0400 Heart rate 79 /min P[employer]ler[employer] FORMER.MOLD MAKING SUPERVISOR Work Phone: [facility] 10-10-2021 18:09-0400 Respiratory rate 21 /min P[employer]ler[employer] FORMER.MOLD MAKING SUPERVISOR Work Phone: [facility] 10-10-2021 18:09-0400 SaO2% (BldA) [Mass fraction] 99 % Praisler[employer]Wood [employer] FORMER.M[employer] MAKING SUPERVISOR Work Phone: [facility] 10-10-2021 18:09-0400 Systolic blood pressure 172 mm[Hg] Kathy Alejandre HAND [employer] FORMER.MOLD MAKING SUPERVISOR Work Phone: [facility] 09-19-2021 15:16-0400 Diastolic blood pressure 80 mm[Hg] Dyana Haagen [employer] FORMER.MOLD MAKING SUPERVISOR Work Phone: [facility] 09-19-2021 15:16-0400 Heart rate 73 /min Dyana Haagen HAND [employer]ING FORMER.MOLD MAKING SUPERVISOR Work Phone: [facility] 09-19-2021 15:16-0400 Respiratory rate 18 /min Dyana Haagen HAND [employer] FORMER.MOLD MAKING SUPERVISOR Work Phone: [facility] 09-19-2021 15:16-0400 SaO2% (BldA) [Mass fraction] 98 % Dyana Haagen [employer] FORMER.MOLD MAKING SUPERVISOR Work Phone: [facility] 09-19-2021 15:16-0400 Systolic blood pressure 132 mm[Hg] Dyana Haagen [employer] FORMER.MOLD MAKING SUPERVISOR Work Phone: [facility] Encounters Encounter Date Encounter Type Care Provider Facility Start: 11-26-2024 ambulatory Mike Daley Facility :[facility] Start: 10-29-2024 ambulatory Lauor V Sibilia Facili ty:[facility] Start: 10-28-[address] Lauro Mason MD -Laboratory Specimen Work Phone: Start: 10-28-2024 ambulatory Lauro Alba ty:[facility] Start: 10-24-2024 End: 10-24-2024 ambulatory OPAL MATHEWS Facility:[facility] Start: 10-21-2024 End: 10-21-[address] Opal Mathews MD Work Phone: [facility] Work Phone: Start: 10-21-2024 End: 10-21-[address] Alicia Manzano MD -Laboratory Work Phone: Start: 10-20-2024 End: 10-20-[address] Alicia Manzano MD -[facility] Work Phone: Start: 10-20-2024 End: 10-21-[address] Opal Mathews MD Work Phone: [facility] Work Phone: Start: 09-26-2024 End: 09-26-[address] Opal Mathews MD Work Phone: [facility] Work Phone: Start: 09-26-2024 End: 09-26-[address] Lauro Mason MD -Laboratory Specimen Work Phone: Start: 09-26-2024 End: 09-26-2024 ambulatory Lauro Mason Facility:[facility] Start: 09-19-2024 End: 09-19-[address] Opal Mathews MD Work Phone: [facility] Work Phone: Start: 09-19-2024 End: 09-19-[address] Lauro Mason MD -Pulmonary Services/Neurology Work Phone: Start: 09-18-2024 End: 09-19-2024 ambulatory Shahriar Brown APRN.MOLD MAKING SUPERVISOR Work Phone: [facility] [place] Comment on above: Health Start: 09-17-2024 End: 09-17-[address] Opal Mathews MD Work Phone: [facility] Work Phone: Start: 09-17-2024 End: 09-17-[address] Lauro Mason MD -Radiology [facility] Work Phone: Start: 09-17-2024 End: 09-17-2024 ambulatory Lauro Mason Facility:[facility] Start: 08-27-2024 End: 08-27-2024 ambulatory SHAHRIAR BROWN Facility:[facility] Start: 08-20-2024 ambulatory Alicia Manzano Facility:[facility] Start: 08-20-2024 Non-patient / Non-visit Dr. Alicia Manzano MD -[facility] Start: 08-19-2024 End: 08-19-2024 Patient encounter procedure Jacque HAWK Work Phone: [facility] Comment on above: Puncture wound of ri ght foot, initial encounter (Primary Dx); Not up to date with diphtheria-tetanus vaccination Start: 08-19-2024 End: 08-19-2024 ambulatory Opal Mathews MD Work Phone: [facility] [place] Comment on above: Puncture Wound Start: 08-18-2024 End: 08-18-2024 Office outpatient visit 15 minutes Opal Mahtews MD Work Phone: Internal [facility] Comment on above: Dog scratch (Primary Dx); Bleeding from wound Start: 08-18-2024 End: 08-18-[address] Opal Mathews MD Work Phone: [facility] Work Phone: Start: 08-18-2024 End: 08-18-[address] Alicia Manzano MD -Cardiovascular Services Work Phone: Start: 08-18-2024 End: 08-18-2024 ambulatory Alicia Manzano Facility:[facility] Start: 08-18-2024 Non-patient / Non-visit Dr. Alicia Manzano MD -[facility] Start: 08-07-2024 End: 08-12-2024 ambulatory Shahriar Brown APRN.MOLD MAKING SUPERVISOR Work Phone: [facility] Comment on above: Possible UTI or some kind of infection Refill Request Start: 07-31-2024 End: 07-31-2024 ambulatory SHAHRIAR BROWN [employer]C Work Phone: [facility] Work Phone: Start: 07-31-2024 End: 07-31-2024 Patient encounter procedure Meg HAWK -Laboratory Work Phone: Start: 07-30-2024 End: 08-04-2024 ambulatory Shahriar Brown [employer]MER.M[employer] MAKING SUPERVISOR Work Phone: [facility] [place] Comment on above: Work Start: 07-28-2024 End: 07-28-2024 ambulatory SHAHRIAR OLDER SKIVER UPPERS [employer] LININGS-C Work Phone: [facility] Work Phone: Start: 07-28-2024 End: 07-28-[address] Lauro Mason MD -Cat Scan, [facility] [facility] Work Phone: Start: 07-28-2024 End: 07-28-2024 ambulatory Lauro Mason Facility:[facility] Start: 07-21-2024 End: 07-21-2024 Patient encounter procedure Mario HAWK -Laboratory, Specimen Work Phone: Start: 07-21-2024 End: 07-21-2024 ambulatory Mario Mcdaniel Facility:[facility] Start: 07-17-2024 End: 07-17-2024 ambulatory SHAHRIAR BROWN SKIVER [employer]INGS-C Work Phone: [facility] Work Phone: Start: 07-17-2024 End: 07-17-[address] Alicia Manzano MD -Laboratory Work Phone: Start: 07-17-2024 End: 07-17-2024 ambulatory Alicia Jose Juan Facility:[facility] Start: 06-30-2024 End: 06-30-[address] Alicia Manzano MD -[facility] Work Phone: Start: 06-30-2024 End: 06-30-2024 ambulatory Alicia Manzano Facility:[facility] Start: 06-25-2024 End: 06-25-2024 ambulatory [facility] Facility:[facility] Start: 06-18-2024 End: 06-18-2024 Patient encounter procedure Kaya HAWK -[facility] Work Phone: Start: 06-18-2024 End: 06-18-2024 ambulatory Kaya Pierce Facility:[facility] Start: 06-18-2024 End: 06-18-2024 ambulatory Kaya Pierce Facility:[facility] Start: 06-17-2024 End: 06-17-2024 Patient encounter procedure Kaya HAWK -[facility] Work Phone: Start: 06-17-2024 End: 06-17-2024 ambulatory [facility] Facility:[facility] Start: 06-06-2024 End: 06-09-2024 ambulatory Opal Mathews MD Work Phone: [facility] [place] Comment on above: Dizziness Start: 05-28-2024 End: 05-28-2024 ambulatory SHAHRIAR BROWN Facility:[facility] Start: 05-28-2024 End: 05-28-2024 Patient encounter procedure Shahriar Brown HAND [employer]ING FORMER.MOLD MAKING SUPERVISOR Work Phone: [facility] [place] Comment on above: Anemia, unspecified type (Primary Dx); Type 2 diabetes mellitus without complication, without long-term current use of insulin (HCC) Start: 05-21-2024 End: 05-21-2024 [facility]: Start: 05-21-2024 End: 05-21-2024 ambulatory [facility] Facility:[facility] Start: 05-21-2024 End: 05-21-2024 ambulatory Kaya Pierce Facility:[facility] Start: 05-14-2024 End: 05-14-2024 Non-patient / Non-visit Dr. Caden Charles MD -[facility] Work Phone: Start: 05-14-2024 End: 05-14-2024 Admission to same day surgery center Mike Daley DO -Endoscopy Work Phone: Start: 05-14-2024 End: 05-29-2024 ambulatory Shahriar Brown [employer]ING FORMER.MOLD MAKING SUPERVISOR Work Phone: [facility] [place] Comment on above: Functional testing Start: 05-14-2024 End: 05-14-2024 Patient encounter procedure Shahriar Brown [employer] FORMER.MOLD MAKING SUPERVISOR Work Phone: [facility] [place] Comment on above: Anemia, unspecified type (Primary Dx) Start: 05-12-2024 End: 05-13-2024 Refill Opal Mathews MD Work Phone: [facility] [place] Comment on above: Refill Request Start: 05-10-2024 End: 05-11-2024 Emergency department patient visit Dr. Alfredo Sr MD -Emergency Department Work Phone: Start: 05-06-2024 End: 05-06-2024 Discharged Recurring SHAHRIAR OLDER SKIVER [employer]PP[employer] LININGS-C -Occupational Thera py Work Phone: Start: 05-06-2024 End: 05-06-2024 ambulatory HSAHRIAR OLDER Facility:[facility] Start: 05-02-2024 End: 05-02-2024 ambulatory OPAL MATHEWS Facility:[facility] Start: 04-29-2024 End: 05-02-2024 ambulatory Opal Mathews MD Work Phone: Internal [facility] [place] [id number] Start: 04-27-2024 End: 04-27-2024 Emergency department patient visit Dr. Jian Nazario DO -Emergency Department Work Phone: Start: 04-25-2024 End: 04-25-2024 Refill Shahriar Older [employer]ING FORMER.MOLD MAKING SUPERVISOR Work Phone: [facility] [place] Comment on above: Refill Request Start: 04-24-2024 End: 04-24-2024 ambulatory Shahriar Older [employer]MER.MOLD MAKING SUPERVISOR Work Phone: [facility] [place] Comment on above: Exhaustion Start: 04-16-2024 End: 04-21-2024 Telephone encounter Shahriar Older [employer] FORMER.MOLD MAKING SUPERVISOR Work Phone: [facility] [place] Comment on above: Work Forms Start: 04-15-2024 End: 04-15-2024 Patient encounter procedure Meg HAWK -[facility] Work Phone: Start: 04-15-2024 End: 04-15-2024 ambulatory SHAHRIAR OLDER Facility:[facility] Start: 03-28-2024 End: 03-28-2024 Patient encounter procedure Shahriar Older [employer]ING FORMER.MOLD MAKING SUPERVISOR Work Phone: [facility] [place] Comment on above: Acute midline low ba ck pain without sciatica (Primary Dx); Hypertension, unspecified type Start: 03-28-2024 End: 03-28-2024 ambulatory [facility] Facility:[facility] Start: 03-21-2024 End: 03-21-2024 ambulatory [facility] Facility:[facility] Start: 03-18-2024 End: 03-19-2024 Refill Shahriar Brown HAND [employer] FORMER.MOLD MAKING SUPERVISOR Work Phone: Internal [facility] Comment on above: Refill Request Start: 03-13-2024 End: 03-13-[address] [facility] Facility:[facility] Start: 02-28-2024 End: 02-28-2024 ambulatory [facility] Facility:[facility] Start: 02-19-2024 End: 02-20-2024 Telephone encounter Shahriar Brown [employer]ING FORMER.MOLD MAKING SUPERVISOR Work Phone: Internal [facility] Comment on above: Results Start: 02-14-2024 End: 02-14-2024 Patient encounter procedure Shahriar Brown HAND [employer] FORMER.MOLD MAKING SUPERVISOR Work Phone: Internal [facility] Comment on above: Other fatigue (Prima ry Dx); Hypertension, unspecified type; Anxiety and depression; Encounter for immunization Start: 02-14-2024 End: 02-14-2024 ambulatory OPAL GANTA Facility:[facility] Start: 02-13-2024 End: 02-13-2024 ambulatory [facility] Facility:[facility] Start: 02-13-2024 End: 02-13-2024 ambulatory [facility] Facility:[facility] Start: 01-24-2024 End: 01-24-2024 ambulatory Shahriar Brown HAND [employer] FORMER.MOLD MAKING SUPERVISOR Work Phone: Internal [facility] Comment on above: Liver Start: 01-21-2024 End: 01-21-2024 ambulatory CHHAYA CROWE Facility:[facility] Start: 01-21-2024 End: 01-21-2024 Patient encounter procedure Chhaya Crowe MD Work Phone: OB/Gynecology Comment on above: Encounter for gyneco logical examination (general) (routine) without abnormal findings (Primary Dx); Encounter for screening mammogram for breast cancer Start: 01-21-2024 End: 01-21-2024 Patient encounter status Chhaya Crowe MD Work Phone: [facility] Start: 01-17-2024 End: 01-17-2024 [facility] Facility:[facility] Start: 01-17-2024 End: 01-17-2024 Patient encounter procedure Shahriar Brown APRN.MOLD MAKING SUPERVISOR Work Phone: [facility] [place] Comment on above: Other fatigue (Prima ry Dx); HERMILO (obstructive sleep apnea); Hypertension, unspecified type; Anxiety and depression; Type 2 diabetes mellitus without complication, without long-term current use of insulin (HCC) Start: 01-15-2024 End: 01-15-2024 Refill Luz Cordoba APRN.CNP Work Phone: [facility] [place] Comment on above: Refill Request Start: 01-01-2024 ambulatory MALLY Oshea ity:[facility] Start: 12-31-2023 End: 12-31-2023 ambulatory [facility] Facility:[facility] Start: 12-25-2023 End: 12-26-2023 Documentation procedure Mammography Coordinator [facility] Department Start: 12-25-2023 End: 12-26-2023 Letter encounter Mammography Coordinator [facility] Start: 12-25-2023 End: 12-25-2023 [facility] Facility:[facility] Start: 12-25-2023 End: 12-25-2023 Subsequent hospital visit by physician Screen Mammo [facility] Comment on above: Encounter for screen ing mammogram for breast cancer [Z12.31] Start: 12-24-2023 End: 01-24-2024 ambulatory Shahriar Brown APRN.MOLD MAKING SUPERVISOR Work Phone: [facility] [place] Comment on above: Bloodwork Start: 12-18-2023 End: 12-18-2023 [facility] Facility:[facility] Start: 12-18-2023 End: 12-18-2023 Patient encounter procedure Shahriar Brown HAND [employer]ING FORMER.MOLD MAKING SUPERVISOR Work Phone: [facility] [place] Comment on above: Type 2 diabetes mili itus without complication, without long- term current use of insulin (HCC) (Primary Dx); Other fatigue; HERMILO (obstructive sleep apnea); Atrial fibrillation, unspecified type (HCC); Hypertension, unspecified type; Anemia, unspecified type; Lupus (HCC) Start: 12-12-2023 ambulatory Opal Arellano Work Phone: Internal Medicine [place] [id number] Start: 12-11-2023 End: 12-11-2023 [facility] Facility:[facility] Start: 11-12-2023 Refill Luz gallegos HAND [employer]ING FORMER.MOLD MAKING SUPERVISOR Work Phone: [facility] [place] Comment on above: Refill Request Start: 10-31-2023 End: 10-31-2023 [facility] Facility:[facility] Start: 10-17-2023 Telephone encounter Shahriar Brown APRN.MOLD MAKING SUPERVISOR Work Phone: [facility] [place] Comment on above: Patient Question Start: 10-15-2023 Telephone encounter Opal perez MD Work Phone: [facility] [place] Comment on above: Appointment Start: 10-05-2023 ambulatory Shahriar Brown HAND [employer] FORMER .MOLD MAKING SUPERVISOR Work Phone: [facility] [place] Comment on above: Bloodwork Start: 10-03-2023 Telephone encounter Suzie juarez HAND SPRING FORMER.MOLD MAKING SUPERVISOR Work Phone: [facility] [place] Comment on above: Results Start: 10-02-2023 ambulatory Shahriar Brown HAND [employer] FORMER .MOLD MAKING SUPERVISOR Work Phone: [facility] [place] Comment on above: Ablation Start: 09-27-2023 End: 09-27-2023 Subsequent hospital visit by physician Ya Cleveland MD Work Phone: [facility] Comment on above: Paroxysmal atrial fi brillation Start: 09-26-2023 End: 09-26-2023 Subsequent hospital visit by physician Ya Cleveland MD Work Phone: Cardiovascular Imaging Lab [facility] Comment on above: Arrived Start: 09-17-2023 Refill Shahriar Older HAND [employer]ING FORMER .MOLD MAKING SUPERVISOR Work Phone: [facility] [place] Comment on above: Refill Request Start: 09-11-2023 ambulatory Shahriar Older [employer] FORMER .MOLD MAKING SUPERVISOR Work Phone: [facility] [place] Comment on above: Ablation and anxiety Start: 09-07-2023 Refill Shahriar Older HAND [employer] FORMER .MOLD MAKING SUPERVISOR Work Phone: [facility] [place] Comment on above: Refill Request Start: 08-28-2023 End: 08-28-[address] Opal Mathews Work Phone: [facility] Work Phone: Start: 08-28-2023 End: 08-28-[address] Opal Mathews Work Phone: [facility]-Ultrasound, [facility] Work Phone: Start: 08-17-2023 End: 08-17-[address] Opal Mathews Work Phone: [facility] Work Phone: Start: 08-17-2023 End: 08-17-[address] Opal Mathews Work Phone: [facility]-Laboratory Work Phone: Start: 08-16-2023 End: 08-16-[address] Opal Mathews Work Phone: [facility] [facility] Work Phone: Start: 08-09-2023 End: 08-09-2023 Patient encounter procedure Shahriar Older HAND SPRING FORMER.MOLD MAKING SUPERVISOR Work Phone: [facility] [place] Comment on above: Anemia, unspecified type (Primary Dx); Hypertension, unspecified type; Type 2 diabetes mellitus without complication, without long-term current use of insulin (HCC) Start: 07-26-2023 Telephone encounter Opal perez MD Work Phone: [facility] [place] Comment on above: Patient Update Start: 07-25-2023 End: 07-25-[address] Opal Mathews Work Phone: [facility] Work Phone: Start: 07-25-2023 End: 07-25-[address] Opal Mathews Work Phone: [facility]-Laboratory, Specimen Work Phone: Start: 07-24-2023 Telephone encounter Opal perez MD Work Phone: [facility] [place] Comment on above: Patient Update Start: 07-18-2023 Refill Ivett Dunn PA-C Work Phone: [facility] [place] Comment on above: Refill Request Start: 07-13-2023 Telephone encounter Shahriar Brown APRN.MOLD MAKING SUPERVISOR Work Phone: [facility] [place] Comment on above: Results Start: 07-11-2023 ambulatory Shahriar Older [employer] FORMER .MOLD MAKING SUPERVISOR Work Phone: [facility] [place] Comment on above: Anemia Start: 07-07-2023 ambulatory Shahriar Older HAND SPRING FORMER .MOLD MAKING SUPERVISOR Work Phone: [facility] [place] Comment on above: Anemia Start: 07-06-2023 Telephone encounter Shahriar Brown HAND SPRING FORMER.MOLD MAKING SUPERVISOR Work Phone: [facility] [place] Comment on above: Patient Update Start: 07-05-2023 End: 07-05-2023 Patient encounter procedure Shahriar Brown HAND SPRING FORMER.MOLD MAKING SUPERVISOR Work Phone: [facility] [place] Comment on above: Subacute sinusitis, unspecified location (Primary Dx); Hypertension, unspecified type; Atrial fibrillation, unspecified type (HCC); Type 2 diabetes mellitus without complication, without long-term current use of insulin (HCC); Anemia, unspecified type Start: 06-25-2023 Non-patient / Non-visit Dr. Opal Mathews Work Phone: [facility] Start: 06-22-2023 Telephone encounter Shahriar Brown HAND SPRING FORMER.MOLD MAKING SUPERVISOR Work Phone: [facility] [place] Comment on above: Patient Update Start: 06-21-2023 End: 06-21-2023 Emergency department patient visit Dr. Opal Mathews Work Phone: [facility]-Emergency Department Work Phone: Start: 06-21-2023 End: 06-21-2023 Patient encounter procedure Rubi Araya PA-C Work Phone: [facility] Comment on above: Right upper quadrant pain (Primary Dx) Start: 06-21-2023 Refill Shahriar Older HAND SPRING FORMER .MOLD MAKING SUPERVISOR Work Phone: [facility] [place] Comment on above: Refill Request Start: 06-21-2023 Telephone encounter Shahriar Brown HAND SPRING FORMER.MOLD MAKING SUPERVISOR Work Phone: [facility] [place] Comment on above: Nausea (& upset stom ach) Start: 06-21-2023 End: 06-21-[address] Opal Mathews Work Phone: [facility] Work Phone: Start: 06-21-2023 End: 06-21-[address] Opal Mathews Work Phone: [facility]-Cardiovascular Services Work Phone: Start: 06-21-2023 Non-patient / Non-visit Dr. Opal Mathews Work Phone: [facility] Start: 06-19-2023 Refill Shahriar Older HAND SPRING FORMER .MOLD MAKING SUPERVISOR Work Phone: [facility] [place] Comment on above: Refill Request Start: 06-18-2023 Refill Shahriar Older HAND SPRING FORMER .MOLD MAKING SUPERVISOR Work Phone: [facility] [place] Comment on above: Refill Request Start: 06-13-2023 End: 06-13-[address] Opal Mathews Work Phone: [facility] Work Phone: Start: 06-13-2023 End: 06-13-[address] Opal Mathews Work Phone: [facility]-Laboratory Work Phone: Start: 06-08-2023 Refill Shahriar Brown HAND [employer]ING FORMER .MOLD MAKING SUPERVISOR Work Phone: [facility] Comment on above: Refill Request Start: 06-05-2023 End: 06-05-[address] Opal Mathews Work Phone: [facility] Work Phone: Start: 04-28-2023 End: 04-29-2023 Emergency department patient visit Dr. Opal Mathews Work Phone: [facility]-Emergency Department Work Phone: Start: 04-27-2023 End: 05-06-[address] Opal Mathews Work Phone: [facility] Work Phone: Start: 04-27-2023 End: 05-06-[address] Opal Mathews Work Phone: [facility]-Cardiac Rehab Work Phone: Start: 04-27-[address] Daxa Mathews Work Phone: [facility]-Cardiac Rehab Work Phone: Start: 04-16-2023 End: 04-16-2023 Patient encounter procedure Rubi Araya PA-C Work Phone: [facility] Comment on above: Viral illness (Prima ry Dx) Start: 04-04-2023 End: 04-05-[address] Opal Mathews Work Phone: [facility] Work Phone: Start: 04-04-2023 End: 04-05-[address] Opal Mathews Work Phone: [facility]-Cardiac Rehab Work Phone: Start: 03-29-2023 End: 03-29-2023 Emergency department patient visit Dr. pOal Mathews Work Phone: [facility]-Emergency Department Work Phone: Start: 03-28-2023 End: 03-28-2023 Patient encounter procedure Shahriar Brown APRN.MOLD MAKING SUPERVISOR Work Phone: Internal [facility] Comment on above: New onset a-fib (HCC ) (Primary Dx) Start: 03-28-[address] Daxa Mathews Work Phone: [facility]-Cardiac Rehab Work Phone: Start: 03-21-2023 End: 03-21-[address] Opal Mathews Work Phone: [facility] Work Phone: Start: 03-20-2023 Refill Travon SULTANA RN.MOLD MAKING SUPERVISOR Work Phone: [facility] Comment on above: Refill Request Start: 03-16-2023 End: 03-16-2023 Emergency department patient visit MARYLU GLEZ [facility] Start: 03-12-2023 End: 03-12-[address] Opal Mathews Work Phone: [facility]-Laboratory Work Phone: Start: 03-12-2023 End: 03-12-2023 Patient encounter procedure Ivett Dunn PA-C Work Phone: [facility] Comment on above: Chronic sinusitis, u nspecified location (Primary Dx) Start: 03-08-2023 ambulatory Shahriar DesaiMOLD MAKING SUPERVISOR Work Phone: [facility] Comment on above: Weather Start: 03-05-2023 End: 03-06-[address] Opal Mathews Work Phone: [facility] Work Phone: Start: 03-05-2023 End: 03-06-[address] Opal Mathews Work Phone: [facility]-Cardiac Rehab Work Phone: Start: 03-01-2023 Refill Shahriar Brown APRN .MOLD MAKING SUPERVISOR Work Phone: [facility] [place] Comment on above: Refill Request Start: 02-28-2023 End: 02-28-2023 Patient encounter procedure Shahriar Brown APRN.MOLD MAKING SUPERVISOR Work Phone: [facility] [place] Comment on above: New onset a-fib (HCC ) (Primary Dx); Type 2 diabetes mellitus without complication, without long-term current use of insulin (HCC) Start: 02-27-2023 End: 02-27-2023 Emergency department patient visit Dr. Opal Mathews Work Phone: [facility]-Emergency Department Work Phone: Start: 02-26-[address] aDxa Mathews Work Phone: [facility]-Cardiac Rehab Work Phone: Start: 02-21-2023 End: 02-21-[address] Opal Mathews Work Phone: [facility] [place] [facility] Work Phone: Start: 02-12-2023 End: 02-12-[address] pOal Mathews Work Phone: [facility] Work Phone: Start: 02-12-2023 End: 02-12-[address] Opal Mathews Work Phone: [facility]-Laboratory, Specimen Work Phone: Start: 02-09-[address] Daxa Mathews Work Phone: [facility]-Cardiac Rehab Work Phone: Start: 02-07-2023 Non-patient / Non-visit Dr. Opal Mathews Work Phone: [facility] Start: 02-07-2023 End: 02-07-[address] Opal Mathews Work Phone: [facility]-Cardiovascular Services Work Phone: Start: 02-02-2023 ambulatory Shahriar Older HAND [employer]ING FORMER .MOLD MAKING SUPERVISOR Work Phone: [facility] Start: 02-02-2023 Letter encounter Shahriar Older APR N.MOLD MAKING SUPERVISOR Work Phone: [facility] [place] Comment on above: Letter Start: 01-29-2023 End: 02-03-[address] Opal Mathews Work Phone: [facility] Work Phone: Start: 01-29-2023 End: 02-03-[address] Opal Mathews Work Phone: [facility]Cardiac Rehab Work Phone: Start: 01-29-[address] Daxa Mathews Work Phone: [facility]Cardiac [facility] Work Phone: Start: 01-24-2023 Non-patient / Non-visit Dr. Opal Mathews Work Phone: [facility] Start: 01-24-2023 End: 01-24-[address] Opal Mathews Work Phone: [facility] Work Phone: Start: 01-24-2023 End: 01-24-[address] Opal Mathews Work Phone: [facility] Work Phone: Start: 01-24-2023 End: 01-24-[address] Opal Mathews Work Phone: [facility]-Pulmonary Services/Neurology Work Phone: Start: 01-19-2023 End: 01-19-[address] Opal Mathews Work Phone: [facility] Work Phone: Start: 01-19-2023 End: 01-19-[address] Opal Mathews Work Phone: [facility]-Cardiac Rehab Work Phone: Start: 01-16-2023 End: 01-16-[address] Opal Mathews Work Phone: [facility] Work Phone: Start: 01-16-2023 End: 01-16-[address] Opal Mathews Work Phone: [facility]-Laboratory Work Phone: Start: 12-31-2022 End: 12-31-2022 Emergency department patient visit Dr. Opal Mathews Work Phone: [facility]-Emergency Department Work Phone: Start: 12-31-2022 End: 12-31-2022 Patient encounter procedure John Rodriguez APRN.MOLD MAKING SUPERVISOR Work Phone: [facility] Comment on above: Procedure not roddy d out (Primary Dx) Start: 12-28-2022 Non-patient / Non-visit Dr. Opal Mathews Work Phone: [facility] Start: 12-27-2022 End: 12-28-2022 Evaluation and management of inpatient Dr. Opal Mathews Work Phone: [facility]-Progressive Care Unit Work Phone: Start: 12-27-2022 End: 12-28-[address] Opal Mathews Work Phone: [facility] Work Phone: Start: 12-27-2022 Non-patient / Non-visit Dr. Opal Mathews Work Phone: [facility] Start: 12-20-2022 End: 12-20-2022 Patient encounter procedure Shahriar Brown APRN.MOLD MAKING SUPERVISOR Work Phone: [facility] [place] Comment on above: Cellulitis of right lower extremity (Primary Dx); Dependent edema Start: 12-19-2022 Telephone encounter Ivett Lentz PA-C Work Phone: [facility] [place] Comment on above: Cellulitis Update Start: 12-14-2022 End: 12-14-2022 Patient encounter procedure Shahriar Brown APRN.MOLD MAKING SUPERVISOR Work Phone: [facility] [place] Comment on above: Cellulitis of right lower extremity (Primary Dx); Subacute sinusitis, unspecified location; RUQ pain; Liver fibrosis; Type 2 diabetes mellitus without complication, without long-term current use of insulin (HCC) Start: 12-14-2022 End: 12-14-[address] Opal Mathews Work Phone: [facility] Work Phone: Start: 12-14-2022 End: 12-14-[address] Opal Mathews Work Phone: [facility] Work Phone: Start: 12-09-2022 End: 12-09-2022 Office outpatient visit 25 minutes John Rodriguez APRN.MOLD MAKING SUPERVISOR Work Phone: [facility] Comment on above: Bacterial sinusitis (Primary Dx) Start: 12-07-2022 End: 12-07-[address] Opal Mathews Work Phone: [facility] Work Phone: Start: 12-07-2022 End: 12-07-[address] Opal Mathews Work Phone: [facility]Cat Scan, [facility] Work Phone: Start: 12-03-2022 Non-patient / Non-visit Dr. Opal Mathews Work Phone: [facility] Start: 12-03-2022 End: 12-03-2022 Emergency department patient visit Dr. Opal Mathews Work Phone: [facility]-Emergency Department Work Phone: Start: 12-03-2022 End: 12-03-2022 Patient encounter procedure Rubi Araya PA-C Work Phone: [facility] Comment on above: Leg swelling (Primar y Dx) Start: 11-28-2022 ambulatory Opal Arellano Work Phone: [facility] Start: 11-27-2022 End: 11-27-2022 Emergency department patient [facility] Work Phone: Start: 11-17-2022 ambulatory Shahriar Brown [employer] .[employer] Work Phone: Internal Medicine [place] Comment on above: Sinus spray Start: 11-16-2022 End: 11-16-[address] Opal Mathews Work Phone: [facility] Work Phone: Start: 11-10-2022 ambulatory Shahriar Brown [employer] .[employer] SUPER[employer] Work Phone: Internal Medicine [place] Comment on above: Start: 11-10-2022 Documentation procedure Mammography Coordinator [facility] Start: 11-10-2022 Letter encounter Mammography Coordinator [facility] Department Start: 11-09-2022 End: 11-09-2022 Subsequent hospital visit by physician Screen Mammo [facility] Comment on above: Encounter for screen ing mammogram for breast cancer [Z12.31] Start: 10-30-2022 Refill Shahriar Brown [employer] .[employer] SUPER[employer] Work Phone: Internal Medicine [place] Comment on above: Refill Request Start: 10-13-2022 Non-patient / Non-visit Dr. Opal Mathews Work Phone: [facility] Start: 10-12-2022 End: 10-12-2022 Patient encounter procedure Chhaya Crowe MD Work Phone: OB/Gynecology Comment on above: Encounter for gyneco logical examination (general) (routine) without abnormal findings (Primary Dx); Encounter for screening mammogram for breast cancer; Vaginal itching; Dense breast tissue on mammogram; Vulvar itching; Vulvar candidiasis Start: 10-12-2022 End: 10-12-2022 Patient encounter status Chhaya Crowe MD Work Phone: OB/Gynecology Start: 10-12-2022 End: 10-12-[address] Opal Mathews Work Phone: [facility] Work Phone: Start: 10-09-2022 Refill Shahriar DesaiMOLD MAKING SUPERVISOR Work Phone: [facility] [place] Comment on above: Refill Request Start: 09-21-2022 End: 09-21-2022 Subsequent hospital visit by physician [facility] Work Phone: Radiology Comment on above: Liver fibrosis [K74. 00] Start: 09-14-2022 End: 09-14-2022 Patient encounter procedure Shahriar Brown APRN.MOLD MAKING SUPERVISOR Work Phone: Internal Medicine [place] Comment on above: Type 2 diabetes mili itus without complication, without long- term current use of insulin (HCC) (Primary Dx); Hypertension, unspecified type; Liver fibrosis; RUQ pain; Vaginal candidiasis; Palpitations Start: 09-04-2022 End: 09-04-2022 Patient encounter procedure Shahriar Brown APRN.[employer] MAKING SUPERVISOR Work Phone: Internal Medicine [place] Comment on above: Acute recurrent sinu sitis, unspecified location (Primary Dx) Start: 08-31-2022 Non-patient / Non-visit Dr. Opal Mathews Work Phone: [facility] Start: 08-31-2022 Non-patient / Non-visit Dr. Opal Mathews Work Phone: [facility] Start: 08-31-2022 End: 08-31-[address] Opal Mathews Work Phone: [facility] Work Phone: Start: 08-31-2022 End: 08-31-[address] Opal Mathews Work Phone: [facility]-Cardiovascular Services Start: 08-25-2022 Telephone encounter Opal perez MD Work Phone: Internal [facility] Comment on above: Results Start: 08-23-2022 End: 08-23-[address] Opal Mathews Work Phone: [facility] Work Phone: Start: 08-23-2022 End: 08-23-[address] Opal Mathews Work Phone: [facility]-Laboratory, Specimen Start: 08-17-2022 End: 08-17-2022 Patient encounter procedure Shahriar Brown APRN.[employer] MAKING SUPERVISOR Work Phone: [facility] Comment on above: Graves disease (Prim ximena Dx); History of Srini thyroiditis; Hypertension, unspecified type; Acute non-recurrent maxillary sinusitis Start: 08-08-2022 End: 08-08-[address] Opal Mathews Work Phone: [facility] [facility] Start: 07-27-2022 Telephone encounter Opal perez MD Work Phone: [facility] Comment on above: Faxed cardiology ref erral to [place] [facility] Start: 07-26-2022 Telephone encounter Shahriar Brown APRN.M[employer] MAKING SUPERVISOR Work Phone: Internal [facility] Comment on above: Results New Patient Start: 07-21-2022 Telephone encounter Opal perez MD Work Phone: Internal [facility] Comment on above: patient update/illne ss persisting Start: 07-17-2022 End: 07-17-2022 Patient encounter procedure Opal Mathews MD Work Phone: Internal [facility] Comment on above: Viral illness (Prima ry Dx) Start: 07-09-2022 Refill Shahriar DesaiMOLD MAKING SUPERVISOR Work Phone: Internal [facility] Comment on above: Refill Request Start: 06-26-2022 End: 06-26-2022 Patient encounter procedure Shahriar Brown [employer] SUPERVISOR Work Phone: Internal [facility] [place] Comment on above: Chest pain, unspecif ied type (Primary Dx); Palpitations; Type 2 diabetes mellitus without complication, without long-term current use of insulin (HCC); Hypertension, unspecified type; Xyphoidalgia; Headaches Start: 06-22-2022 Telephone encounter Shahriar Brown [employer] SUPER[employer]OR Work Phone: [facility] [place] Comment on above: Results Start: 06-15-2022 End: 06-15-2022 Patient encounter procedure Shahriar Brown [employer] SUPER[employer] Work Phone: [facility] [place] Comment on above: Chest pain, unspecif ied type (Primary Dx); Palpitations; Headaches; Type 2 diabetes mellitus without complication, without long-term current use of insulin (HCC); Hypertension, unspecified type Start: 06-12-2022 Telephone encounter Opal perez MD Work Phone: [facility] [place] Comment on above: Patient Request Start: 06-08-2022 Refill Shahriar Brown APRN .[employer] MAKING SUPERVISOR Work Phone: [facility] [place] Comment on above: Refill Request Insurance Authorizat ion Start: 05-17-2022 End: 05-17-2022 ambulatory [facility] Work Phone: Start: 05-17-2022 End: 05-17-2022 Patient encounter procedure [facility]Laboratory, Specimen Start: 04-19-2022 ambulatory Shahriar Brown [employer] .[employer] SUPERVISOR Work Phone: [facility] Start: 04-19-2022 Letter encounter Shahriar Brown APR N.[employer] MAKING SUPERVISOR Work Phone: Internal [facility] [place] Comment on above: Letter for work Letter for work and paperwork from work to fill out Start: 04-19-2022 End: 04-19-2022 Subsequent hospital visit by physician Adonay [facility] [place] Work Phone: Radiology Comment on above: Fatigue, unspecified type [R53.83] Start: 04-18-2022 ambulatory Shahriar Older [employer] .[employer] SUPERVIS[employer] Work Phone: [facility] Start: 04-18-2022 Letter encounter Shahriar Older APR N.M[employer] MAKING SUPERVISOR Work Phone: [facility] [place] Comment on above: Letter for work Start: 04-17-2022 End: 04-17-2022 Patient encounter procedure Shahriar Older [employer] SUPERVIS[employer] Work Phone: [facility] [place] Comment on above: Other acute sinusiti s, recurrence not specified (Primary Dx) Start: 04-05-2022 End: 04-05-2022 ambulatory [facility] Work Phone: Start: 04-05-2022 End: 04-05-2022 Patient encounter procedure [facility] Start: 03-23-2022 End: 03-23-2022 ambulatory [facility] Work Phone: Start: 03-23-2022 End: 03-23-2022 Patient encounter procedure [facility]Ul[facility], [facility] Start: 03-18-2022 Refill Shahriar Older [employer] .[employer]KING SUPERVISOR Work Phone: Pediatrics [place] Comment on above: Refill Request Start: 03-17-2022 Telephone encounter Opal perez MD Work Phone: [facility] [place] Comment on above: Fax Request Start: 03-17-2022 End: 03-17-2022 ambulatory [facility] Work Phone: Start: 03-17-2022 End: 03-17-2022 Patient encounter procedure [facility] Start: 03-16-2022 ambulatory Shahriar Older [employer] .[employer] MAKING SUPERVISOR Work Phone: [facility] [place] Comment on above: Urine Test Start: 03-08-2022 Refill Saskia Palomo [employer]KING SUPERVISOR Work Phone: [facility] [place] Comment on above: Refill Request Start: 02-24-2022 Telephone encounter Shahriar Brown [employer]KING SUPERVISOR Work Phone: [facility] [place] Comment on above: Results Start: 02-16-2022 ambulatory Shahriar Older [employer] .[employer] MAKING SUPERVISOR Work Phone: Internal [facility] [place] Comment on above: Urine test results Start: 02-15-2022 Telephone encounter Tracy tapia [employer] MAKING SUPERVISOR Work Phone: Family [facility] Comment on above: Results Start: 02-14-2022 End: 02-14-2022 Patient encounter procedure Tracyyessica Mendes [employer] MAKING SUPERVISOR Work Phone: Family [facility] Comment on above: Upper respiratory sy mptom (Primary Dx); UTI symptoms Start: 02-07-2022 End: 02-07-2022 Patient encounter procedure Kathy Alejandre [employer] MAKING SUPERVISOR Work Phone: [place] [facility] Comment on above: Suspected COVID-19 v irus infection (Primary Dx) Start: 01-27-2022 ambulatory Shahriar Older [employer] .[employer] MAKING SUPERVISOR Work Phone: Internal [facility] [place] Comment on above: Diflucan Start: 01-19-2022 End: 01-19-2022 Patient encounter procedure Shahriar Older [employer]KING SUPERVISOR Work Phone: Internal [facility] [place] Comment on above: Type 2 diabetes mili itus without complication, without long- term current use of insulin (HCC) (Primary Dx); Hypertension, unspecified type; Interstitial lung disease (HCC); Mixed hyperlipidemia; Bacteria in urine; Leukocytes in urine; Acute non-recurrent sinusitis, unspecified location; Need for influenza vaccination Start: 01-15-2022 Refill Shahriar Brown [employer] .[employer] MAKING SUPERVISOR Work Phone: Internal [facility] [place] Comment on above: Refill Request Start: 12-18-2021 Refill Shahriar Older [employer] .[employer] MAKING SUPERVISOR Work Phone: Internal [facility] [place] Comment on above: Refill Request Start: 11-20-2021 End: 11-20-2021 Patient encounter procedure Kathy Alejandre [employer] MAKING SUPERVISOR Work Phone: [place] [facility] Comment on above: Sore throat (Primary Dx); Exposure to COVID-19 virus Start: 11-17-2021 End: 11-17-2021 Patient encounter procedure [facility], [facility] Start: 11-16-2021 Refill Shahriar Brown [employer] .[employer] MAKING SUPERVISOR Work Phone: Internal [facility] [place] Comment on above: Refill Request Start: 11-02-2021 End: 11-02-2021 Subsequent hospital visit by physician Diagnostic Mammo [facility] Start: 11-02-2021 ambulatory Shahriar Brown [employer] .[employer] MAKING SUPERVISOR Work Phone: [facility] [place] Comment on above: Liver scan Start: 10-24-2021 End: 10-24-2021 Patient encounter procedure [facility], [facility] Start: 10-14-2021 ambulatory Shahriar Brown [employer] .[employer] MAKING SUPERVISOR Work Phone: Internal [facility] [place] Comment on above: Results of tests Start: 10-13-2021 End: 10-13-2021 Subsequent hospital visit by physician Xr [facility] Work Phone: Radiology Comment on above: Type 2 diabetes mili itus without complication, without long- term current use of insulin (HCC) [E11.9] Start: 10-13-2021 End: 10-13-2021 Patient encounter procedure Shahriar Brown [employer] MAKING SUPERVISOR Work Phone: Internal [facility] [place] Comment on above: Xyphoidalgia (Primar y Dx); RUQ pain; Nausea; Type 2 diabetes mellitus without complication, without long-term current use of insulin (HCC) Start: 10-10-2021 End: 10-10-2021 Patient encounter procedure Kathy Alejandre [employer] MAKING SUPERVISOR Work Phone: [facility] Comment on above: Frequency of urinati on (Primary Dx) Start: 10-06-2021 End: 10-06-2021 Patient encounter procedure [facility], [place] Start: 09-26-2021 Telephone encounter Hui fitzgerald [employer] MAKING SUPERVISOR Work Phone: OB/Gynecology Comment on above: Orders Start: 09-22-2021 Documentation procedure Mammography Coordinator [facility] Start: 09-22-2021 Letter encounter Mammography Coordinator [facility] Department Start: 09-19-2021 End: 09-19-2021 Patient encounter procedure Dyana Valadez [employer] MAKING SUPERVISOR Work Phone: Family [facility] [place] Comment on above: Xyphoidalgia (Primar y Dx) Start: 08-08-2021 Refill Eladio Hoskins [employer] MAKING SUPERVISOR Work Phone: Internal [facility] [place] Comment on above: Refill Request Start: 01-14-2020 End: 01-14-2020 Subsequent hospital visit by physician Dia Galarza Work Phone: [facility] Comment on above: Arrived Procedures Date Procedure Procedure Detail Performing Clinician Start: 09-26-2024 Gram stain microscopy Latoya Mathews MD Work Phone: Start: 09-26-2024 Res[address] microbia l culture Dr. Opal Mathews MD Work Phone: Start: 09-19-[address] Opal Mathews MD Work Phone: Start: 09-19-2024 SARS-CoV-2, Influenz a & RSV (PCR) Dr. Opal Mathews MD Work Phone: Start: 09-17-2024 X-ray of chest, PA a nd lateral views Dr. Opal Mathews MD Work Phone: Start: 08-18-2024 Radionuclide imaging of perfusion of myocardium under exercise stress Dr. Opal Mathews MD Work Phone: Start: 07-28-2024 CT of chest without contrast SHAHRIAR BROWN [employer]-C Work Phone: Start: 07-21-2024 Gram stain microscopy Zay BROWN [employer] Work Phone: Start: 07-21-2024 End: 07-21-2024 Respiratory microbial culture SHAHRIAR BROWN [employer] Work Phone: Start: 06-18-2024 Measurement of renal function Dr. Opal Mathews MD Work Phone: Comment on above: GFR Calc Start: 06-18-2024 Vitamin D, 25-hydrox y measurement Dr. Opal Mathews MD Work Phone: Comment on above: Vitamin D 25(OH) Sta tus Range Deficiency <20 ng/mL (50nmol/L) Insufficiency 20 - 30 ng/mL (50 - 75 nmol/L) Sufficiency 30 - 100 ng/mL (75 - 250 nmol/L) Toxicity >100 ng/mL (>250 nmol/L) Start: 06-17-2024 Iadna-dna/rna gi pth gn multiplex probe tq 6-11 Dr. Opal Mathews MD Work Phone: Start: 06-17-2024 Clostridium difficil e detection SHAHRIAR BROWN [employer] Work Phone: Start: 06-17-2024 End: 06-17-2024 Giardia lamblia antigen assay SHAHRIAR BROWN [employer] Work Phone: Start: 06-17-2024 Lactoferrin measurement SHAHRIAR BROWN [employer] Work Phone: Start: 06-17-2024 Nucleic acid assay SHAHRIAR BROWN [employer] Work Phone: Start: 06-17-2024 Ova OR parasites identification SHAHRIAR BROWN [employer] Work Phone: Start: 05-10-2024 X-ray of chest, PA a nd lateral views SHAHRIAR BRONW [employer] Work Phone: Start: 05-10-2024 CT of head without contrast SHAHRIAR BROWN [employer] Work Phone: Start: 05-10-2024 Measurement of occul t blood in stool specimen using immunoassay SHAHRIAR [employer]OWN [employer] Work Phone: Start: 05-10-2024 SARS-CoV-2, Influenz a & RSV (PCR) SHAHRIAR BROWN [employer] Work Phone: Start: 04-27-2024 Plain chest X-ray SHAHRIAR Appiah LDER [employer] Work Phone: Start: 04-27-2024 CT of head without contrast SHAHRIAR BROWN [employer] Work Phone: Start: 03-28-2024 Urnls dip stick/tabl et rgnt auto w/o microscopy Shahriar Brown [employer] SUPERVISOR Work Phone: Start: 12-25-2023 Screening digital br east tomosynthesis bi Bulk Order Provider Start: 09-27-2023 Ephys evl trnsptl tx atrial fib isolat pulm vein Ya Cleveland MD Work Phone: Start: 09-27-2023 ACT* LOW RANGE, POC Gary ph Roberto Cleveland MD Work Phone: Start: 09-27-2023 Glucose measurement, blood Ya Cleveland MD Work Phone: Start: 09-27-2023 End: 09-27-2023 ACT* LOW RANGE, POC Ya [place] MD Work Phone: Start: 09-27-2023 Glucose measurement, blood Ya Cleveland MD Work Phone: Start: 09-27-2023 Prothrombin time Pat Turner [employer]-[facility] Work Phone: Start: 09-27-2023 Ecg routine ecg w/le ast 12 lds w/i&r Pat Turner [employer]-[facility] Work Phone: Start: 09-26-2023 Ct heart contrast ev al cardiac structure&morph Ya Cleveland MD Work Phone: Start: 08-28-[address] Daxa Mathews Work Phone: Start: 07-25-2023 Investigation of transfusion reaction Dr. Opal Mathews Work Phone: Start: 07-25-[address] Opal Mathews Work Phone: Start: 07-25-[address] l culture Dr. Opal Mathews Work Phone: Start: 06-21-2023 Computed tomography of abdomen and pelvis with intravenous contrast Dr. Opal Mathews Work Phone: Start: 06-21-2023 US scan of gallbladder Dr. Opal Mathews Work Phone: Start: 06-21-2023 Radionuclide imaging of perfusion of myocardium under exercise stress Dr. Opal Mathews Work Phone: Start: 06-13-2023 Investigation of transfusion reaction Dr. Opal Mathews Work Phone: Start: 06-13-[address] Opal Mathews Work Phone: Start: 04-29-2023 Plain chest X-ray Dr. Janiya Mathews Work Phone: Start: 04-16-2023 COVID & INFLUENZA A/ B & RSV NAAT, ROUTINE Rubi Araya PA-C Work Phone: Start: 03-29-2023 Plain chest X-ray Dr. Janiya Mathews Work Phone: Start: 03-12-2023 Investigation of transfusion reaction Dr. Opal Mathews Work Phone: Start: 03-12-[address] Opal Mathews Work Phone: Start: 03-12-2023 COVID & INFLUENZA A/ B NAAT, ROUTINE Ivett Dunn PA-C Work Phone: Start: 02-27-2023 Plain chest X-ray Dr. Janiya Mathews Work Phone: Start: 02-12-2023 Investigation of transfusion reaction Dr. Opal Mathews Work Phone: Start: 02-12-2023 Microscopic observat ion [Identifier] in Unspecified specimen by Gram stain Dr. Opal Mathews Work Phone: Start: 02-12-[address] Opal Mathews Work Phone: Start: 02-12-[address] Daxa Mathews Work Phone: Start: 12-31-2022 Plain chest X-ray Dr. Janiya Mathews Work Phone: Start: 12-31-[address] Daxa Mathews Work Phone: Start: 12-14-[address] Christina Mathews Work Phone: Start: 12-07-2022 Computed tomography of abdomen and pelvis with contrast Dr. Opal Mathews Work Phone: Start: 11-27-2022 Computed tomography of abdomen and pelvis with intravenous contrast Dr. Opal Mathews Work Phone: Start: 11-27-2022 US scan of gallbladder Dr. Opal Mathews Work Phone: Start: 11-16-2022 Plain chest X-ray Dr. Janiya Mathews Work Phone: Start: 11-09-2022 End: 11-09-2022 Mammography Chhaya Crowe MD Work Phone: Start: 10-12-2022 Cardiac computed tomography for calcium scoring Dr. Opal Mathews Work Phone: Start: 09-21-2022 Us abdominal real ti me w/image limited Shahriar Brown [employer] SUPERVIS[employer] Work Phone: Start: 08-23-2022 Investigation of transfusion reaction Dr. Opal Mathews Work Phone: Start: 08-23-[address] Opal Mathews Work Phone: Start: 04-19-2022 Radiologic exam ches t 2 views Shahriar Brown [employer] SUPERVIS[employer] Work Phone: Start: 03-23-2022 US urinary tract Start: 02-14-2022 Urnls dip stick/tabl et rgnt auto w/o microscopy Tracy Podlogar [employer] SUPER[employer] Work Phone: Start: 01-19-2022 Hemoglobin A1c/Hemoglobin.total in Blood Shahriar Brown [employer] SUPERVISOR Work Phone: Start: 01-19-2022 INFLUENZA VACCINE QUADRIVALENT 6 MO - 64 YRS IM Shahriar Brown [employer] SUPERVISOR Work Phone: Start: 11-20-2021 STREP A MOLECULAR (POC) Kathy Alejandre [employer] MAKING SUPERVISOR Work Phone: Start: 11-17-2021 CT of chest without contrast Start: 11-02-2021 MIN DIAG W ROBERT RT [facility] [employer] Work Phone: Start: 10-24-2021 Ultrasound elastography Start: 10-13-2021 Radex sternum minimu m 2 views Shahriar Brown [employer] SUPERVISOR Work Phone: Start: 10-13-2021 Hemoglobin A1c/Hemoglobin.total in Blood Shahriar Brown [employer] SUPERVIS[employer] Work Phone: Start: 10-10-2021 Urnls dip stick/tabl et rgnt auto w/o microscopy Anabela Angulo PA-C Work Phone: Start: 10-06-2021 CBC/DIFF (OUTSIDE ) R jayrama Mason Work Phone: Start: 09-22-2021 Mammography Mammograph y Coordinator Start: 06-16-2021 Adult depression screening assessment Eladio Hoskins [employer] SUPERVIS[employer] Work Phone: Start: 03-15-2020 Mammography Eladio ohara [employer] Work Phone: Start: 01-22-2020 Colonoscopy Eladio ohara [employer].[facility] Work Phone: Start: 01-14-2020 Dup-scan artl marlon abdl/pel/scrot&/rpr orgn lmt Dia Galarza Work Phone: History of placement of stent for coronary artery disease Status post coronary artery stent placement Dr. Opal Mathews Work Phone: Investigation of transfusion reaction Investigation of transfusion reaction Dr. Opal Mathews Work Phone: Nasopharyngeal Culture Nasopharyngeal Culture Dr. Janiya Mathews Work Phone: Plan of Treatment Date Care Activity Detail Author Start: 08-19-2034 Urine microalbumin profile DTaP,Tdap,Td Vaccine (2 - Td or Tdap) [facility] Start: 08-27-2025 Annual PCP Team Chronic Disease Visit Annual PCP Team Chronic Disease Visit [facility] Start: 08-18-2025 Annual PCP Team Chronic Disease Visit Annual PCP Team Chronic Disease Visit [facility] Start: 05-28-2025 Annual PCP Team Chronic Disease Visit Annual PCP Team Chronic Disease Visit [facility] Start: 05-14-2025 Annual PCP Team Chronic Disease Visit Annual PCP Team Chronic Disease Visit [facility] Start: 05-14-2025 BP Controlled (<130/80) BP Controlled (<130/80) [facility] Start: 05-02-2025 Hepatitis B surface antibody level LDL Cholesterol [facility] Start: 03-28-2025 Annual PCP Team Chronic Disease Visit Annual PCP Team Chronic Disease Visit [facility] Start: 02-13-2025 Annual PCP Team Chronic Disease Visit Annual PCP Team Chronic Disease Visit [facility] Start: 02-13-2025 BP Controlled (<130/80) BP Controlled (<130/80) [facility] Start: 01-26-2025 End: 01-26-2025 Patient encounter procedure Mammogram Comment on above: Encounter for screening mammogram for br east cancer [Z12.31] Annual Start: 01-20-2025 BP Controlled (<130/80) BP Controlled (<130/80) [facility] Start: 01-16-2025 Annual PCP Team Chronic Disease Visit Annual PCP Team Chronic Disease Visit [facility] Start: 01-16-2025 Covid-19 Vaccine () Covid-19 Vaccine () [facility] Comment on above: Postponed from 01/06/2024 (Declined at t his time) Start: 01-16-2025 Covid-19 Vaccine () Covid-19 Vaccine () [facility] Comment on above: Postponed from 01/06/2024 (Declined at t his time) Start: 01-16-2025 HIV screening HIV Screening [facility] Comment on above: Postponed from 09/13/1983 (Declined at t his time) Start: 01-07-2025 Glaucoma screening Dilated Retinal Exam [facility] Start: 12-24-2024 Screening for malignant neoplasm of breast Mammogram Screening [facility] Start: 12-17-2024 Annual PCP Team Chronic Disease Visit Annual PCP Team Chronic Disease Visit [facility] Start: 12-17-2024 Diabetic foot examination Diabetic Foot Exam [facility] Start: 12-17-2024 Hepatitis B screening Urine Albumin:Creatinine Ratio [facility] Start: 12-17-2024 Hepatitis B Vaccine (1 of 3 - 19+ 3-dose series) Hepatitis B Vaccine (1 of 3 - 19+ 3-dose series) [facility] Comment on above: Postponed from 1984 (Declined at t his time) Start: 12-17-2024 Pneumococcal vaccination Pneumococcal Vaccine (1 of 2 - PCV) [facility] Comment on above: Postponed from 09/13/1971 (Declined at t his time) Start: 12-17-2024 Shingrix Vaccine (1 of 2) Shingrix Vaccine (1 of 2) [facility] Comment on above: Postponed from 09/13/2015 (Declined at t his time) Start: 12-17-2024 Urine microalbumin profile DTaP,Tdap,Td Vaccine (1 - Tdap) [facility] Comment on above: Postponed from 1984 (Declined at t his time) Start: 11-26-2024 End: 11-26-2024 Patient encounter procedure 11/26/2024 8:40 AM EDT Office Visit [facility] [address] [place] [address] Shahriar Brown APRN.MOLD MAKING SUPERVISOR [address] [place] [address] 3 month follow up [facility] [place] Comment on above: 3 month follow up Start: 11-25-2024 Hemoglobin A1c measurement HbA1C [facility] Start: 11-03-2024 Influenza vaccination Influenza Vaccine (#1) [facility] Comment on above: Postponed from 01/06/2024 (Declined at t his time) Start: 10-28-2024 Acid Fast Bacilli Culture Acid Fast Bacilli Culture [facility] Start: 10-28-2024 Acid Fast Bacilli Smear Acid Fast Bacilli Smear [facility] Start: 10-28-2024 Microscopic observation [Identifier] in Unspecified specimen by Gram stain [facility] Start: 10-28-2024 Respiratory Culture Respiratory Culture [facility] Start: 10-28-2024 Acid fast bacilli culture [facility] Start: 08-27-2024 End: 08-27-2024 Patient encounter procedure 08/27/2024 9:20 AM EDT Office Visit [facility] [place] [address] [facility] [place] [address] Shahriar Brown APRN.MOLD MAKING SUPERVISOR [address] [facility] [place] [address] 3 month follow up [facility] [place] Comment on above: 3 month follow up Start: 08-08-2024 Annual PCP Team Chronic Disease Visit Annual PCP Team Chronic Disease Visit [facility] Start: 07-04-2024 Annual PCP Team Chronic Disease Visit Annual PCP Team Chronic Disease Visit [facility] Start: 06-25-2024 Screening for malignant neoplasm of colon Fecal Occult Blood [facility] Start: 06-19-2024 Hemoglobin A1c measurement HbA1C [facility] Start: 06-17-2024 Inf agent det nucleic acid clostridium amp probe C DIFF AMPLIFIED PROBE [facility] Start: 06-13-2024 Hepatitis B surface antibody level LDL Cholesterol [facility] Start: 06-10-2024 End: 06-10-2024 Patient encounter procedure 06/10/2024 8:40 AM EST Office Visit [facility] [place] [address] [place] [address] Anabela Angulo PA-C [address] [place] [address] vertigo dizziness and lightheadness, triaged see TE [facility] [place] Comment on above: vertigo dizziness and lightheadness, tri aged see TE Start: 05-28-2024 End: 08-27-2024 Basic metabolic 2000 panel - Serum or Plasma [facility] Work Phone: Comment on above: Expected: 05/28/2024, Expires: Start: 05-28-2024 End: 05-28-2024 Patient encounter procedure 05/28/2024 12:20 PM EST Office Visit [facility] [address] [facility] [place] [place] [id number] Shahriar Brown APRN.MOLD MAKING SUPERVISOR [address] [facility] [place] [id number] 2 week follow up, EGD follow up [facility] [place] Comment on above: 2 week follow up, EGD follow up Start: 05-23-2024 Annual PCP Team Chronic Disease Visit Annual PCP Team Chronic Disease Visit [facility] Start: 05-14-2024 Egd removal tumor polyp/other lesion snare tech EGD REMOVE LESION SNARE [facility] Start: 05-14-2024 Egd transoral control bleeding any method EGD CONTROL BLEEDING ANY [facility] Start: 05-14-2024 End: 05-14-2024 Patient encounter procedure 05/14/2024 9:40 AM EST Office Visit [facility] [place] [address] [place] [address] Shahriar Brown APRN.MOLD MAKING SUPERVISOR [address] [place] [address] 3 month follow up [facility] [place] Comment on above: 3 month follow up Start: 05-14-2024 Patient discharge [facility] Start: 05-11-2024 [facility] Start: 05-10-2024 End: 05-10-2024 Administration of blood product [facility] Start: 04-29-2024 End: 07-29-2024 Lipid 1996 panel - Serum or Plasma LIPID PANEL BASIC Lab Routine Diabetes (HCC) Expected: 04/29/2024, Expires: 07/29/2024 [facility] Work Phone: Comment on above: Expected: 04/29/2024, Expires: Start: 03-28-2024 Annual PCP Team Chronic Disease Visit Annual PCP Team Chronic Disease Visit [facility] Start: 03-28-2024 Colorectal Cancer Screening Colorectal Cancer Screening [facility] Comment on above: Postponed from 2010 (Declined at t his time) Start: 03-28-2024 Covid-19 Vaccine () Covid-19 Vaccine () [facility] Comment on above: Postponed from 01/05/2023 (Declined at t his time) Start: 03-28-2024 Screening for malignant neoplasm of colon Colorectal Cancer Screening [facility] Comment on above: Postponed from 2010 (Declined at t his time) Start: 03-12-2024 Annual PCP Team Chronic Disease Visit Annual PCP Team Chronic Disease Visit [facility] Start: 03-05-2024 End: 06-04-2024 CBC W Auto Differential panel - Blood COMPLETE BLOOD COUNT AND DIFFERENTIAL Lab Routine Anemia, unspecified type Expected: 03/05/2024 (Approximate), Expires: 06/04/2024 [facility] Work Phone: Comment on above: Expected: 03/05/2024 (Approximate), Expi res: 06/04/2024 Start: 02-29-2024 Annual PCP Team Chronic Disease Visit Annual PCP Team Chronic Disease Visit [facility] Start: 02-14-2024 End: 02-14-2024 Patient encounter procedure 02/14/2024 2:20 PM EDT Office Visit [facility] [place] [address] [place] [address] Shahriar Brown APRN.MOLD MAKING SUPERVISOR [address] [place] [address] 4 week follo up fatigue [facility] Comment on above: 4 week follo up fatigue Start: 01-21-2024 End: 01-21-2024 Patient encounter procedure 01/21/2024 2:20 PM EDT Office Visit OB/Gynecology [address] [place] [address] Chhaya Crowe MD [address] [place] [address] annual OB/Gynecology Comment on above: annual Start: 01-17-2024 End: 01-17-2024 Patient encounter procedure 01/17/2024 1:20 PM EDT Office Visit [facility] [place] [address] [place] [address] Shahriar Brown APRN.MOLD MAKING SUPERVISOR [address] [place] [address] 4 week follow up [facility] [place] Comment on above: 4 week follow up Start: 01-06-2024 Covid-19 Vaccine ( season) Covid-19 Vaccine () [facility] Start: 01-06-2024 Influenza vaccination [facility] Start: 01-01-2024 End: 01-01-2024 Patient encounter procedure 01/01/2024 11:30 AM EDT Office Visit [facility] [address] [place] [id number] Mally Sawant APRN-MOLD MAKING SUPERVISOR [address] [place] [address] [facility] Start: 12-25-2023 End: 12-25-2023 Patient encounter procedure 12/25/2023 8:30 AM EDT Appointment Mammogram [address] [place] [place], [place] [address] Encounter for screening mammogram for breast cancer [Z12.31] Mammogram Comment on above: Encounter for screening mammogram for br east cancer [Z12.31] Start: 12-21-2023 ANNUAL PCP TEAM CHRONIC DISEASE VISIT ANNUAL PCP TEAM CHRONIC DISEASE VISIT [facility] Start: 12-18-2023 End: 03-18-2024 Ferritin [Mass/volume] in Serum or Plasma [facility] Comment on above: Expected: 12/18/2023, Expires: Start: 12-18-2023 End: 03-18-2024 Hemoglobin A1c in Blood [facility] Comment on above: Expected: 12/18/2023, Expires: 4 Start: 12-18-2023 End: 03-18-2024 Iron and Iron binding capacity panel - Serum or Plasma [facility] Comment on above: Expected: 12/18/2023, Expires: Start: 12-18-2023 End: 03-18-2024 Microalbumin/Creatinine [Mass Ratio] in Urine [facility] Work Phone: Comment on above: Expected: 12/18/2023, Expires: Start: 12-18-2023 End: 11-12-2024 Thyrotropin [Units/volume] in Serum or Plasma [facility] Comment on above: Expected: 12/18/2023, Expires: Start: 12-18-2023 End: 12-18-2023 Patient encounter procedure 12/18/2023 8:00 AM EDT Office Visit [facility] [place] [address] [facility] [place] [address] Shahriar Brown APRN.MOLD MAKING SUPERVISOR [address] [facility] [place] [address] follow up visit [facility] Comment on above: follow up visit Start: 12-15-2023 ANNUAL PCP TEAM CHRONIC DISEASE VISIT ANNUAL PCP TEAM CHRONIC DISEASE VISIT [facility] Start: 12-12-2023 Hemoglobin A1c measurement HbA1C [facility] Start: 12-08-2023 Hepatitis B screening URINE ALBUMIN:CREATININE RATIO [facility] Start: 12-08-2023 Hepatitis B surface antibody level LDL CHOLESTEROL [facility] Start: 12-07-2023 End: 12-07-2023 Patient encounter procedure 12/07/2023 9:20 AM EDT Office Visit [facility] [address] [facility] [place] [address] Shahriar Brown APRN.MOLD MAKING SUPERVISOR [address] [facility] [place] [address] Follow up, ablasion [facility] Comment on above: Follow up, ablasion Start: 11-12-2023 End: 11-12-2023 Patient encounter procedure 11/12/2023 7:40 AM EDT Office Visit [facility] [address] [facility] [place] [address] Shahriar Brown APRN.MOLD MAKING SUPERVISOR [address] [facility] [place] [address] 3 month follow up [facility] Comment on above: 3 month follow up Start: 11-10-2023 Mammography [facility] Start: 11-10-2023 Screening for malignant neoplasm of breast Mammogram Screening [facility] Start: 11-08-2023 End: 09-26-2024 Cardiac telemetry MOBILE CARDIAC TELEMETRY ECG Routine Paroxysmal atrial fibrillation Expected: 11/08/2023, Expires: 09/26/2024 [facility] Comment on above: Expected: 11/08/2023, Expires: Start: 11-04-2023 Influenza vaccination Influenza Vaccine (#1) [facility] Comment on above: Postponed from 01/05/2023 (Declined at t his time) Start: 10-24-2023 Glaucoma screening Dilated Retinal Exam [facility] Start: 10-24-2023 Hepatitis C antibody, confirmatory test DILATED RETINAL EXAM [facility] Start: 10-16-2023 End: 10-16-2023 Patient encounter procedure 10/16/2023 10:40 AM EDT Office Visit [facility] [address] [place] [address] Anabela Angulo PA-C [address] [place], [place] [id number] Mole that is red and irritated. See TE 10/15/23. [facility] Comment on above: Mole that is red and irritated. See TE . Start: 10-13-2023 BP CONTROLLED (<130/80) BP CONTROLLED (<130/80) [facility] Start: 10-02-2023 End: 01-01-2024 Bacteria identified in Urine by Culture URINE CULTURE Microbiology Routine UTI symptoms Expected: 10/02/2023, Expires: 01/01/2024 [facility] Comment on above: Expected: 10/02/2023, Expires: Start: 10-02-2023 End: 01-01-2024 Urinalysis complete panel - Urine URINALYSIS, WITH MICROSCOPIC Lab Routine UTI symptoms Expected: 10/02/2023, Expires: 01/01/2024 [facility] Work Phone: Comment on above: Expected: 10/02/2023, Expires: Start: 09-27-2023 End: 09-27-2023 Ephys evl trnsptl tx atrial fib isolat pulm vein ABLATION SCHED INTERCARDIAC A-FIB TRANSEPTAL BY PULM VEIN ISOLATION W/EP EVAL (60649) Paroxysmal atrial fibrillation 09/27/2023 8:19 AM EDT [facility] Start: 09-15-2023 ANNUAL PCP TEAM CHRONIC DISEASE VISIT ANNUAL PCP TEAM CHRONIC DISEASE VISIT [facility] Start: 09-15-2023 COVID-19 VACCINE (3 - Booster for Moderna series) COVID-19 VACCINE (3 - Booster for Moderna series) [facility] Comment on above: Postponed from 10/29/2020 (Declined at t his time) Start: 09-15-2023 COVID-19 VACCINE (3 - Moderna series) COVID-19 VACCINE (3 - Moderna series) [facility] Comment on above: Postponed from 10/29/2020 (Declined at t his time) Start: 09-15-2023 HEPATITIS B (1 of 3 - 3-dose series) HEPATITIS B (1 of 3 - 3-dose series) [facility] Comment on above: Postponed from 1965 (Declined at t his time) Start: 09-15-2023 Hepatitis B Vaccine (1 of 3 - 19+ 3-dose series) Hepatitis B Vaccine (1 of 3 - 19+ 3-dose series) [facility] Comment on above: Postponed from 1984 (Declined at t his time) Start: 09-15-2023 Hepatitis B Vaccine (1 of 3 - 3-dose series) Hepatitis B Vaccine (1 of 3 - 3-dose series) [facility] Comment on above: Postponed from 1965 (Declined at t his time) Start: 09-15-2023 HIV SCREENING HIV SCREENING [facility] Comment on above: Postponed from 09/13/1983 (Declined at t his time) Start: 09-15-2023 HIV screening HIV Screening [facility] Comment on above: Postponed from 09/13/1983 (Declined at t his time) Start: 09-15-2023 HPV TESTING HPV TESTING [facility] Comment on above: Postponed from 09/13/1995 (Declined at t his time) Start: 09-15-2023 PNEUMOCOCCAL (1 - PCV) PNEUMOCOCCAL (1 - PCV) [facility] Comment on above: Postponed from 09/13/1971 (Declined at t his time) Start: 09-15-2023 Pneumococcal vaccination [facility] Comment on above: Postponed from 09/13/1971 (Declined at t his time) Start: 09-15-2023 Screening for malignant neoplasm of cervix HPV Testing [facility] Comment on above: Postponed from 09/13/1995 (Declined at t his time) Start: 09-15-2023 SHINGRIX VACCINE (1 of 2) SHINGRIX VACCINE (1 of 2) [facility] Comment on above: Postponed from 09/13/2015 (Declined at t his time) Start: 09-15-2023 Urine microalbumin profile [facility] Comment on above: Postponed from 1984 (Declined at t his time) Start: 09-05-2023 ANNUAL PCP TEAM CHRONIC DISEASE VISIT ANNUAL PCP TEAM CHRONIC DISEASE VISIT [facility] Start: 08-30-2023 Hemoglobin A1c measurement HbA1C [facility] Start: 08-30-2023 Hemoglobin A1c/Hemoglobin.total in Blood HbA1C [facility] Start: 08-18-2023 ANNUAL PCP TEAM CHRONIC DISEASE VISIT ANNUAL PCP TEAM CHRONIC DISEASE VISIT [facility] Start: 07-18-2023 ANNUAL PCP TEAM CHRONIC DISEASE VISIT ANNUAL PCP TEAM CHRONIC DISEASE VISIT [facility] Start: 07-18-2023 BP CONTROLLED (<130/80) BP CONTROLLED (<130/80) [facility] Start: 07-06-2023 End: 10-05-2023 CBC W Auto Differential panel - Blood CBC + DIFF Lab Routine Anemia, unspecified type Expected: 07/06/2023, Expires: 10/05/2023 [facility] Work Phone: Comment on above: Expected: 07/06/2023, Expires: Start: 06-26-2023 ANNUAL PCP TEAM CHRONIC DISEASE VISIT ANNUAL PCP TEAM CHRONIC DISEASE VISIT [facility] Start: 06-26-2023 Screening for malignant neoplasm of colon Colorectal Cancer Screening [facility] Start: 06-21-2023 [facility] Start: 06-15-2023 ANNUAL PCP TEAM CHRONIC DISEASE VISIT ANNUAL PCP TEAM CHRONIC DISEASE VISIT [facility] Start: 05-07-2023 Behavioral Health Screening Behavioral Health Screening [facility] Start: 05-07-2023 Depression Assessment Depression Assessment [facility] Start: 04-29-2023 [facility] Start: 04-29-2023 [facility] Start: 04-17-2023 ANNUAL PCP TEAM CHRONIC DISEASE VISIT ANNUAL PCP TEAM CHRONIC DISEASE VISIT [facility] Start: 03-29-2023 [facility] Start: 03-21-2023 Patient referral [facility] Work Phone: Start: 03-17-2023 Hemoglobin A1c/Hemoglobin.total in Blood HBA1C [facility] Start: 02-27-2023 [facility] Start: 02-27-2023 [facility] Start: 02-14-2023 ANNUAL PCP TEAM CHRONIC DISEASE VISIT ANNUAL PCP TEAM CHRONIC DISEASE VISIT [facility] Start: 01-21-2023 Colonoscopy COLONOSCOPY [facility] Start: 01-21-2023 COLORECTAL CANCER SCREENING COLORECTAL CANCER SCREENING [facility] Start: 01-21-2023 Screening for malignant neoplasm of colon Colonoscopy [facility] Start: 01-19-2023 ANNUAL PCP TEAM CHRONIC DISEASE VISIT ANNUAL PCP TEAM CHRONIC DISEASE VISIT [facility] Start: 01-19-2023 Hepatitis B screening URINE ALBUMIN:CREATININE RATIO [facility] Start: 01-19-2023 Hepatitis B surface antibody level LDL CHOLESTEROL [facility] Start: 01-05-2023 Covid-19 Vaccine ( season) Covid-19 Vaccine () [facility] Start: 01-05-2023 Influenza vaccination [facility] Start: 12-31-2022 [facility] Start: 12-30-2022 Electrocardiographic procedure [facility] Start: 12-29-2022 Electrocardiographic procedure [facility] Start: 12-28-2022 Electrocardiographic procedure [facility] Start: 12-28-2022 Patient discharge [facility] Start: 12-27-2022 Following clinical pathway protocol [facility] Start: 12-27-2022 Patient referral [facility] Work Phone: Start: 12-27-2022 Ambulation without limitation [facility] Start: 12-27-2022 Cardiac monitoring [facility] Start: 12-27-2022 Cardiac rehabilitation - phase 1 [facility] Start: 12-27-2022 Cardiac rehabilitation - phase 2 [facility] Start: 12-27-2022 Notification of physician [facility] Start: 12-27-2022 Oxygen therapy [facility] Start: 12-27-2022 Patient discharge [facility] Start: 12-27-2022 Taking patient vital signs [facility] Start: 12-27-2022 Vascular disease risk assessment [facility] Start: 12-27-2022 Vital signs measurements [facility] Start: 12-27-2022 End: 12-27-2022 [facility] Start: 12-27-2022 Admission procedure [facility] Start: 11-28-2022 End: 01-28-2023 ALBUMIN/CREAT RATIO RND UR ALBUMIN/CREAT RATIO RND UR Lab Routine Diabetes (HCC) Expected: 11/28/2022, Expires: 01/28/2023 [facility] Work Phone: Comment on above: Expected: 11/28/2022, Expires: 3 Start: 11-28-2022 End: 01-28-2023 Lipid 1996 panel - Serum or Plasma LIPID PANEL BASIC Lab Routine Diabetes (HCC) Expected: 11/28/2022, Expires: 01/28/2023 [facility] Work Phone: Comment on above: Expected: 11/28/2022, Expires: 3 Start: 10-13-2022 ANNUAL PCP TEAM CHRONIC DISEASE VISIT ANNUAL PCP TEAM CHRONIC DISEASE VISIT [facility] Start: 10-12-2022 Following clinical pathway protocol [facility] Start: 09-22-2022 Mammography MAMMOGRAM [facility] Start: 09-19-2022 ANNUAL PCP TEAM CHRONIC DISEASE VISIT ANNUAL PCP TEAM CHRONIC DISEASE VISIT [facility] Start: 09-14-2022 End: 11-14-2022 Comprehensive metabolic 2000 panel - Serum or Plasma [facility] Work Phone: Comment on above: Expected: 09/14/2022, Expires: 3 Start: 09-14-2022 End: 11-14-2022 Hemoglobin A1c in Blood [facility] Work Phone: Comment on above: Expected: 09/14/2022, Expires: 3 Start: 2022 Hemoglobin A1c/Hemoglobin.total in Blood HBA1C [facility] Start: 08-28-2022 End: 10-28-2022 Thyroglobulin Ab [Units/volume] in Serum or Plasma THYROGLOBULIN AB Lab Routine Graves disease History of Srini thyroiditis Expected: 08/28/2022, Expires: 10/28/2022 [facility] Work Phone: Comment on above: Expected: 08/28/2022, Expires: Start: 08-28-2022 End: 10-28-2022 THYROID PEROXIDASE ANTIBODY BLOOD THYROID PEROXIDASE ANTIBODY BLOOD Lab Routine Graves disease History of Srini thyroiditis Expected: 08/28/2022, Expires: 10/28/2022 [facility] Work Phone: Comment on above: Expected: 08/28/2022, Expires: Start: 08-28-2022 End: 10-28-2022 Thyrotropin [Units/volume] in Serum or Plasma TSH BLD Lab Routine Graves disease History of Srini thyroiditis Expected: 08/28/2022, Expires: 10/28/2022 [facility] Work Phone: Comment on above: Expected: 08/28/2022, Expires: 3 Start: 08-28-2022 End: 10-28-2022 Thyroxine (T4) free [Mass/volume] in Serum or Plasma T4 FREE/FREE THYROX Lab Routine Graves disease History of Srini thyroiditis Expected: 08/28/2022, Expires: 10/28/2022 [facility] Work Phone: Comment on above: Expected: 08/28/2022, Expires: 3 Start: 08-28-2022 End: 10-28-2022 Triiodothyronine (T3) [Mass/volume] in Serum or Plasma T3 BLD Lab Routine Graves disease History of Srini thyroiditis Expected: 08/28/2022, Expires: 10/28/2022 [facility] Work Phone: Comment on above: Expected: 08/28/2022, Expires: 3 Start: 07-19-2022 Hemoglobin A1c/Hemoglobin.total in Blood HBA1C [facility] Start: 07-17-2022 End: 07-31-2022 Influenza virus A and B RNA and SARS-CoV-2 (COVID-19) N gene panel - Respiratory specimen by CAROLINA with probe detection [facility] Work Phone: Comment on above: Expected: 07/17/2022, Expires: 3 Start: 06-16-2022 Adult depression screening assessment DEPRESSION SCREENING [facility] Start: 06-16-2022 ANNUAL PCP TEAM CHRONIC DISEASE VISIT ANNUAL PCP TEAM CHRONIC DISEASE VISIT [facility] Start: 06-16-2022 COVID-19 VACCINE (3 - Booster for Moderna series) COVID-19 VACCINE (3 - Booster for Moderna series) [facility] Comment on above: Postponed from 02/03/2021 (Declined at t his time) Postponed from 10/29 (Declined at this time) Start: 06-16-2022 HIV SCREENING HIV SCREENING [facility] Comment on above: Postponed from 09/13/1983 (Declined at t his time) Start: 06-16-2022 HPV TESTING HPV TESTING [facility] Comment on above: Postponed from 09/13/1995 (Declined at t his time) Start: 06-16-2022 ONE PNEUMOVAX PRIOR TO AGE 65 ONE PNEUMOVAX PRIOR TO AGE 65 [facility] Comment on above: Postponed from 1981 (Declined at t his time) Start: 06-16-2022 PNEUMOCOCCAL (1 - PCV) PNEUMOCOCCAL (1 - PCV) [facility] Comment on above: Postponed from 09/13/1971 (Declined at t his time) Start: 06-16-2022 SHINGRIX VACCINE (1 of 2) SHINGRIX VACCINE (1 of 2) [facility] Comment on above: Postponed from 09/13/2015 (Declined at t his time) Start: 06-16-2022 Urine microalbumin profile DTAP,TDAP,TD (1 - Tdap) [facility] Comment on above: Postponed from 1984 (Declined at t his time) Start: 06-15-2022 End: 08-15-2022 C reactive protein [Mass/volume] in Serum or Plasma [facility] Work Phone: Comment on above: Expected: 06/15/2022, Expires: 3 Start: 06-15-2022 End: 08-15-2022 Comprehensive metabolic 2000 panel - Serum or Plasma [facility] Work Phone: Comment on above: Expected: 06/15/2022, Expires: 3 Start: 06-15-2022 End: 08-15-2022 Magnesium [Mass/volume] in Serum or Plasma [facility] Work Phone: Comment on above: Expected: 06/15/2022, Expires: 3 Start: 06-15-2022 End: 08-15-2022 Thyrotropin [Units/volume] in Serum or Plasma [facility] Work Phone: Comment on above: Expected: 06/15/2022, Expires: 3 Start: 06-15-2022 End: 08-15-2022 Thyroxine (T4) free [Mass/volume] in Serum or Plasma [facility] Work Phone: Comment on above: Expected: 06/15/2022, Expires: 3 Start: 06-15-2022 End: 08-15-2022 Triiodothyronine (T3) [Mass/volume] in Serum or Plasma [facility] Work Phone: Comment on above: Expected: 06/15/2022, Expires: 3 Start: 05-07-2022 DEPRESSION ASSESSMENT DEPRESSION ASSESSMENT [facility] Start: 03-23-2022 US Kidney - bilateral and Urinary bladder [facility] Work Phone: Start: 03-23-2022 US urinary tract Kidney and Bladder [facility] Work Phone: Start: 03-17-2022 Procedure [facility] Start: 03-07-2022 3 comp foot exam completed DIABETIC FOOT EXAM [facility] Start: 03-07-2022 Diabetic foot examination Diabetic Foot Exam [facility] Start: 02-07-2022 End: 02-21-2022 Influenza virus A and B RNA and SARS-CoV-2 (COVID-19) N gene panel - Respiratory specimen by CAROLINA with probe detection COVID WITH FLUA+B, ROUTINE Microbiology Routine Suspected COVID-19 virus infection Expected: 02/07/2022, Expires: 02/21/2022 [facility] Work Phone: Comment on above: Expected: 02/07/2022, Expires: 2 Start: 01-19-2022 End: 03-21-2022 ALBUMIN/CREAT RATIO RND UR [facility] Work Phone: Comment on above: Expected: 01/19/2022, Expires: 2 Start: 01-19-2022 End: 03-21-2022 Comprehensive metabolic 2000 panel - Serum or Plasma [facility] Work Phone: Comment on above: Expected: 01/19/2022, Expires: 2 Start: 01-19-2022 End: 03-21-2022 Lipid 1996 panel - Serum or Plasma [facility] Work Phone: Comment on above: Expected: 01/19/2022, Expires: 2 Start: 01-19-2022 End: 03-21-2022 Urinalysis complete panel - Urine [facility] Work Phone: Comment on above: Expected: 01/19/2022, Expires: 2 Start: 01-13-2022 Hemoglobin A1c/Hemoglobin.total in Blood HBA1C [facility] Start: 01-05-2022 Influenza vaccination INFLUENZA (#1) [facility] Start: 12-24-2021 Hepatitis B screening URINE ALBUMIN:CREATININE RATIO [facility] Start: 12-24-2021 Hepatitis B surface antibody level LDL CHOLESTEROL [facility] Start: 11-20-2021 End: 12-04-2021 Influenza virus A and B RNA and SARS-CoV-2 (COVID-19) N gene panel - Respiratory specimen by CAROLINA with probe detection COVID WITH FLUA+B, ROUTINE Microbiology Routine Exposure to COVID-19 virus Expected: 11/20/2021, Expires: 12/04/2021 [facility] Work Phone: Comment on above: Expected: 11/20/2021, Expires: 2 Start: 11-03-2021 Hemoglobin A1c/Hemoglobin.total in Blood HBA1C [facility] Start: 10-24-2021 Ultrasound elastography [facility] Work Phone: Start: 10-13-2021 End: 12-13-2021 Amylase [Enzymatic activity/volume] in Serum or Plasma [facility] Work Phone: Comment on above: Expected: 10/13/2021, Expires: 2 Start: 10-13-2021 End: 12-13-2021 Comprehensive metabolic 2000 panel - Serum or Plasma [facility] Work Phone: Comment on above: Expected: 10/13/2021, Expires: 2 Start: 10-13-2021 End: 12-13-2021 Lipase [Enzymatic activity/volume] in Serum or Plasma [facility] Work Phone: Comment on above: Expected: 10/13/2021, Expires: 2 Start: 05-07-2021 DEPRESSION ASSESSMENT DEPRESSION ASSESSMENT [facility] Start: 03-15-2021 Mammography MAMMOGRAM [facility] Start: 03-09-2021 Hepatitis C antibody, confirmatory test DILATED RETINAL EXAM [facility] Start: 10-29-2020 COVID-19 VACCINE (3 - Booster for Moderna series) COVID-19 VACCINE (3 - Booster for Moderna series) [facility] Start: 01-06-2020 Influenza vaccination Flu vaccine (#1) [place], [place] Start: 09-13-2015 Screening for malignant neoplasm of breast Breast cancer screen [place], [place] Start: 09-13-2015 Screening for malignant neoplasm of colon Colon cancer screen colonoscopy [place], [place] Start: 09-13-2015 Shingles Vaccine (1 of 2) Shingles Vaccine (1 of 2) [place] Start: 09-13-2015 SHINGRIX VACCINE (1 of 2) SHINGRIX VACCINE (1 of 2) [facility] Start: 09-13-2015 Zoster vaccine hzv live for subcutaneous use ZOSTER (SHINGLES) VACCINE (1 of 2) [facility] Start: 2010 COLOGUARD (FIT-DNA) COLOGUARD (FIT-DNA) [facility] Start: [address] COLONOGRAPHY [facility] Start: 2010 FECAL OCCULT BLOOD FECAL OCCULT BLOOD [facility] Start: 2010 Screening for malignant neoplasm of colon [facility] Start: 2010 SIGMOIDOSCOPY SIGMOIDOSCOPY [facility] Start: 2005 Lipid panel [facility] Start: 2005 Screening for malignant neoplasm of breast MAMMOGRAM SCREENING DISCUSSION [facility] Start: 09-13-1995 HPV TESTING HPV TESTING [facility] Start: 09-13-1995 Screening for malignant neoplasm of cervix HPV Testing [facility] Start: 1986 Screening for malignant neoplasm of cervix [facility] Start: 1984 DTaP/Tdap/Td vaccine (1 - Tdap) DTaP/Tdap/Td vaccine (1 - Tdap) [place] Start: 1984 HEPATITIS B (1 of 3 - Risk 3-dose series) HEPATITIS B (1 of 3 - Risk 3-dose series) [facility] Start: 1984 Hepatitis B vaccination HEP B VACCINE (1 of 3 - 19+ 3-dose series) [facility] Start: 1984 Hepatitis B Vaccine (1 of 3 - 19+ 3-dose series) Hepatitis B Vaccine (1 of 3 - 19+ 3-dose series) [facility] Start: 1984 Pneumococcal Vaccine: 50+ (1 of 2 - PCV) Pneumococcal Vaccine: 50+ (1 of 2 - PCV) [facility] Start: 1984 Third diphtheria, tetanus and acellular pertussis (DTaP) vaccination TDAP (ADULT) [facility] Start: 1984 Urine microalbumin profile [facility] Start: 09-13-1983 Anxiety Screening Anxiety Screening [facility] Start: 09-13-1983 BP CONTROLLED (<130/80) BP CONTROLLED (<130/80) [facility] Start: 09-13-1983 Depression Screening Depression Screening [facility] Start: 09-13-1983 HIV SCREENING HIV SCREENING [facility] Start: 09-13-1983 HIV screening HIV Screening [facility] Start: 1980 HIV screening [facility] Start: 09-13-1971 PNEUMOCOCCAL (1 - PCV) PNEUMOCOCCAL (1 - PCV) [facility] Start: 09-13-1971 Pneumococcal vaccination Pneumococcal Vaccine (1 of 2 - PCV) [facility] Start: 1965 HEPATITIS B (1 of 3 - 3-dose series) HEPATITIS B (1 of 3 - 3-dose series) [facility] Start: 1965 Hepatitis C screening HEPATITIS C VIRUS SCREENING [facility] Start: 1965 Tetanus vaccination TETANUS [facility] Albumin/Globulin [Ma ss Ratio] in Serum or Plasma by Electrophoresis [facility] Work Phone: [id number]. tumor marker [Units/volume] in Serum or Plasma [facility] Work Phone: Bacteria identified in Sputum by Respiratory culture [facility] Bacteria identified in Urine by Culture URINE CULTURE Microbiology Routine Frequency of urination Ordered: 10/10/2021 [facility] Work Phone: Comment on above: Ordered: 10/10/2021 Bacteria identified in Urine by Culture URINE CULTURE Microbiology Routine UTI symptoms 02/14/2022 1:31 PM EDT [facility] Work Phone: BACTERIAL VAGINOSIS AMPLIFICATION BACTERIAL VAGINOSIS AMPLIFICATION Lab Routine Vaginal itching 10/12/2022 11:24 AM EDT [facility] Work Phone: FLORENTIN / TRICHOMONA S AMPLIFICATION FLORENTIN / TRICHOMONAS AMPLIFICATION Microbiology Routine Vaginal itching 10/12/2022 11:24 AM EDT [facility] Work Phone: Cardiovascular stress testing [facility] Ceruloplasmin [Mass/ volume] in Serum or Plasma [facility] Work Phone: Complete blood count [facility] Cytomegalovirus DNA [Presence] in Unspecified specimen by CAROLINA with probe detection [facility] Work Phone: End: 01-10-2025 DBT Breast - bilateral screening MIN SCREENING W ROBERT Radiology Routine Encounter for screening mammogram for breast cancer 1 Occurrences starting 12/12/2023 until 01/10/2025 [facility] Work Phone: Comment on above: 1 Occurrences starting 12/12/2023 until 01/10/2025 End: 02-19-2025 DBT Breast - bilateral screening MIN SCREENING W ROBERT Radiology Routine Encounter for screening mammogram for breast cancer 1 Occurrences starting 01/21/2024 until 02/19/2025 [facility] Work Phone: Comment on above: 1 Occurrences starting 01/21/2024 until 02/19/2025 DDI VIBRATION CONTRO LLED TRANSIENT ELASTOGRAPHY (VCTE) DDI VIBRATION CONTROLLED TRANSIENT ELASTOGRAPHY (VCTE) Procedures Routine Elevated liver enzymes Fatty liver Ordered: 10/17/2021 [facility] Work Phone: Comment on above: Ordered: 10/17/2021 End: 10-26-2022 Diagnostic mammography computer-aided detcj uni MIN DIAGNOSTIC RT Radiology Routine Abnormal mammogram 1 Occurrences starting 09/26/2021 until 10/26/2022 [facility] Work Phone: Comment on above: 1 Occurrences starting 09/26/2021 until 10/26/2022 End: 06-15-2023 ECG COMPLETE ECG COMPLETE ECG Routine Chest pain, unspecified type Palpitations 1 Occurrences starting 06/15/2022 until 06/15/2023 [facility] Work Phone: Comment on above: 1 Occurrences starting 06/15/2022 until 06/15/2023 End: 06-15-2023 Echocardiography ECHO Cardiology Routine Chest pain, unspecified type Palpitations 1 Occurrences starting 06/15/2022 until 06/15/2023 [facility] Work Phone: Comment on above: 1 Occurrences starting 06/15/2022 until 06/15/2023 Electrophoresis: albumin [facility] Work Phone: Electrophoresis: [id number] [facility] Work Phone: Electrophoresis: [id number] [facility] Work Phone: Electrophoresis: randy ma globulin [facility] Work Phone: Thais Bacon virus c apsid IgG Ab [Units/volume] in Serum [facility] Work Phone: Thais Bacon virus c apsid IgM Ab [Units/volume] in Serum [facility] Work Phone: Thais Bacon virus n uclear IgG Ab [Units/volume] in Cerebral spinal fluid [facility] Work Phone: Thais-Bacon virus s erologic test [facility] Work Phone: Gliadin peptide IgA Ab [Units/volume] in Serum [facility] Work Phone: Gliadin peptide IgG Ab [Units/volume] in Serum [facility] Work Phone: Globulin measurement [facility] Work Phone: IgA [Mass/volume] in Serum or Plasma [facility] Work Phone: Influenza virus A an d B RNA and SARS-CoV-2 (COVID-19) N gene panel - Respiratory specimen by CAROLINA with probe detection COVID WITH FLUA+B, ROUTINE Microbiology Routine Upper respiratory symptom 02/14/2022 1:31 PM EDT [facility] Work Phone: Lipid 1996 panel - S dianna or Plasma [facility] End: 11-11-2023 MIN SCREENING W ROBERT MIN SCREENING W ROBERT Radiology Routine Encounter for screening mammogram for breast cancer Dense breast tissue on mammogram 1 Occurrences starting 10/12/2022 until 11/11/2023 [facility] Work Phone: Comment on above: 1 Occurrences starting 10/12/2022 until 11/11/2023 Mycobacterium sp zac ntified in Unspecified specimen by Organism specific culture [facility] Mycoplasma IgM measurement W [facility] Mycoplasma pneumonia e IgG Ab [Presence] in Serum [facility] OUTSIDE VENDOR CARDI AC OUTPATIENT EXTENDED RHYTHM RECORDING (WITHOUT TELEMETRY) OUTSIDE VENDOR CARDIAC OUTPATIENT EXTENDED RHYTHM RECORDING (WITHOUT TELEMETRY) Holter Routine Chest pain, unspecified type Palpitations Ordered: 06/15/2022 [facility] Work Phone: Comment on above: Ordered: 06/15/2022 Partial thromboplast in time, activated [facility] Patient Education [facility] Work Phone: Patient referral [facility] Work Phone: Physical performance test/hailee w/reprt ea 15 min PHYSICAL PERFORMANCE TEST Procedures Routine Interstitial lung disease (HCC) Graves disease Type 2 diabetes mellitus without complication, without long-term current use of insulin (HCC) Mixed connective tissue disease (HCC) Ordered: 04/16/2024 [facility] Work Phone: Comment on above: Ordered: 04/16/2024 Procedure [facility] Work Phone: Protein electrophore sis panel - Serum or Plasma [facility] Work Phone: Prothrombin time [facility] Radionuclide imaging of perfusion of myocardium under exercise stress [facility] Radionuclide imaging of perfusion of myocardium under exercise stress [facility] Retinol [Mass/volume ] in Serum or Plasma [facility] Work Phone: SARS-CoV-2 (COVID-19 ) RNA [Presence] in Respiratory specimen by CAROLINA with probe detection 2019 CORONAVIRUS Microbiology Routine Upper respiratory symptom Ordered: 02/14/2022 [facility] Work Phone: Comment on above: Ordered: 02/14/2022 Serum protein electrophoresis [facility] Work Phone: Smooth muscle Ab [Pr esence] in Serum [facility] Work Phone: Total globulins measurement [facility] Work Phone: End: 10-14-2023 US ABD RIGHT UPPER QUADRANT US ABD RIGHT UPPER QUADRANT Radiology Routine Liver fibrosis 1 Occurrences starting 09/14/2022 until 10/14/2023 [facility] Work Phone: Comment on above: 1 Occurrences starting 09/14/2022 until 10/14/2023 End: 10-26-2022 Us breast uni real time with image limited US BREAST LTD RT Radiology Routine Abnormal mammogram 1 Occurrences starting 09/26/2021 until 10/26/2022 [facility] Work Phone: Comment on above: 1 Occurrences starting 09/26/2021 until 10/26/2022 Heart [facility] Immunizations Immunization Date Immunization Notes Care Provider Flaquita pizano 08-27-2024 pneumococcal conjuga te (PCV20) vaccine, 20 valent (PREVNAR 20) Shahriar Older [employer] Work Phone: [facility] 08-19-2024 tetanus toxoid, redu daniel diphtheria toxoid, and acellular pertussis vaccine, adsorbed Krislyn Aberegg PA Work Phone: [facility] 02-26-2024 influenza, high dose seasonal, preservative-free Krislyn Aberegg PA Work Phone: [facility] 02-14-2024 influenza, seasonal, injectable Shahriar Older [employer]PER[employer] Work Phone: [facility] 01-27-2022 influenza, high dose seasonal, preservative-free Krislyn Aberegg PA Work Phone: [facility] 01-19-2022 influenza, injectabl e, quadrivalent, contains preservative Shahriar Brown [employer] Work Phone: [facility] 01-19-2022 influenza virus vaccine, unspecified formulation Shahriar Older [employer]PER[employer] Work Phone: [facility] 03-17-2021 influenza, injectabl e, quadrivalent, contains preservative Eladio Hoskins [employer] Work Phone: [facility] 02-14-2021 influenza, high dose seasonal, preservative-free Krislyn Aberegg PA Work Phone: [facility] 09-03-2020 COVID-19 vaccine, fu ll dose (MODERNA) Eladio Hoskins [employer] Work Phone: [facility] 08-06-2020 COVID-19 vaccine, fu ll dose (MODERNA) Eladio Hoskins APRN.[employer] MAKING SUPERVISOR Work Phone: [facility] Work Phone: 01-28-2020 influenza, injectabl e, quadrivalent, contains preservative Eladio Hoskins APRN.[employer] SUPER[employer] Work Phone: [facility] Work Phone: 02-19-2019 influenza, injectabl e, quadrivalent, contains preservative Eladio Hoskins APRN.[employer]PER[employer] Work Phone: [facility] Payers Date Payer Category Payer Self-pay [id number] 2023 Medicaid [id number] 2023 Unknown [id number] 2023 Private Health Insurance [id number] 2021 Unknown [employer] PPO [id number] 2021-Present [phone] [address] [place] [address] PPO [id number] 2021 Unknown [id number] .[id number] 1965 Unknown [id number] 2.16.840.1.915982.3.579.2.6 51 1965 Unknown [id number] 2.16.840.1.445159.3.579.2.5 94 1965 Unknown [id number] 2.16.840.1.205522.3.579.2.5 94 Private Health Insurance PNB [id number] Unknown [id number] Unknown [id number] Unknown [id number] 2.16.840.1.235995.3.579.2.4 62 Unknown [id number] 2.16.840.1.660599.3.579.2.4 62 Unknown [id number] 2.16.840.1.298803.3.579.2.4 62 Unknown [id number] 2.16.840.1.743675.3.579.2.4 62 Unknown [id number] 2.16.840.1.517767.3.579.2.4 62 Unknown [id number] 2.16.840.1.174603.3.579.2.4 62 Unknown [id number] 2.16.840.1.359293.3.579.2.4 62 Unknown [id number] 2.16.840.1.086912.3.579.2.4 62 Unknown [id number] 2.16.840.1.275795.3.579.2.4 62 Unknown [id number] 2.16.840.1.478583.3.579.2.4 62 Unknown [id number] 2.16.840.1.073675.3.579.2.4 62 Unknown [id number] 2.16.840.1.985917.3.579.2.4 62 Unknown [id number] 2.16.840.1.151881.3.579.2.4 62 Unknown [id number] 2.16.840.1.227682.3.579.2.4 62 Unknown [id number] 2.16.840.1.074779.3.579.2.4 62 Unknown [id number] 2.16.840.1.387709.3.579.2.4 62 Unknown [id number] 2.16.840.1.474278.3.579.2.4 62 Unknown [id number] 2.16.840.1.335268.3.579.2.4 62 Unknown [id number] 2.16.840.1.885655.3.579.2.4 62 Unknown [id number] 2.16.840.1.665653.3.579.2.4 62 Unknown [id number] 2.16.840.1.257031.3.579.2.4 62 Unknown [id number] 2.16.840.1.193272.3.579.2.4 62 Unknown [id number] 2.16.840.1.239660.3.579.2.4 62 Unknown [id number] 2.16.840.1.843622.3.579.2.4 62 Unknown [id number] 2.16.840.1.968833.3.579.2.4 62 Unknown [id number] 2.16.840.1.656607.3.579.2.4 62 Unknown [id number] 2.16.840.1.803157.3.579.2.4 62 Unknown [id number] 2.16.840.1.341556.3.579.2.4 62 Unknown [id number] 2.16.840.1.172889.3.579.2.4 62 Unknown [id number] 2.16.840.1.369163.3.579.2.4 62 Unknown [id number] 2.16.840.1.639723.3.579.2.4 62 Unknown [id number] 2.16.840.1.955135.3.579.2.4 62 Unknown [id number] 2.16.840.1.202103.3.579.2.4 62 Unknown [id number] 2.16.840.1.478690.3.579.2.4 62 Unknown [id number] 2.16.840.1.808637.3.579.2.4 62 Social History Date Type Detail Facility Tobacco smoking stat us NHIS Unknown if ever smoked [facility] Start: 1965 [facility] Start: 01-22-2019 End: 07-25-2024 Tobacco smoking status NHIS Never smoked tobacco [facility] Start: 01-22-2019 End: 02-14-2022 Tobacco use and exposure Smokeless tobacco non-user [facility] Start: 06-16-2021 End: 08-27-2024 Alcohol intake Ex-drinker (finding) [facility] Start: 01-28-2020 End: 05-18-2020 History SDOH Alcohol Frequency 2 [facility] Start: 01-28-2020 End: 05-18-2020 History SDOH Alcohol Std Drinks 1 [facility] Start: 05-16-2021 History SDOH Alcohol Comment rare [facility] Start: 01-28-2020 History SDOH Social Connections Living 5 [facility] Start: 01-28-2020 History SDOH Physical Activity DPW 0 [facility] Start: 01-28-2020 History SDOH Financial 4 [facility] Start: 05-18-2020 History SDOH Housing Unable to Pay 3 [facility] Start: 01-06-2020 Education 21 [facility] Start: 1965 Sex Assigned At Female [facility] Start: 09-04-2021 End: 01-19-2022 Exposure to SARS-CoV-2 (event) Unable to assess [facility] Work Phone: Start: 2021 End: 02-23-2022 Exposure to SARS-CoV-2 (event) Not sure [facility] Start: 05-15-2020 End: 08-16-2023 Tobacco smoking status NHIS Unknown if ever smoked [facility] Start: 01-28-2020 End: 09-14-2022 [facility] Start: 01-28-2020 End: 09-14-2022 Social connection and isolation panel [facility] Do you belong to any clubs or organizations such as mandaen groups, unions, fraternal or athletic groups, or school groups? No [facility] Are you now , , , , never or living with a partner? [facility] How often to you hav e a drink containing alcohol? Monthly or less [facility] How many standard dr inks containing alcohol do you have on a typical day? 1 or 2 [facility] How often do you hav e 6 or more drinks on 1 occasion? Never [facility] How hard is it for y ou to pay for the very basics like food, housing, medical care, and heating Not very hard [facility] Do you feel stress - tense, restless, nervous, or anxious, or unable to sleep at night because your mind is troubled all the time - these days [OSQ] Only a little [facility] (I/We) worried wheth er (my/our) food would run out before (I/we) got money to buy more. Never true [facility] In the past 12 month s, has lack of transportation kept you from medical appointments or from getting medications? No [facility] Start: 01-06-2020 Gender identity Identifies as female gender (finding) [facility] Start: 01-06-2020 Sexual orientation Heterosexual (finding) [facility] Do you feel stress - tense, restless, nervous, or anxious, or unable to sleep at night because your mind is troubled all the time - these days [OSQ] Not at all [facility] (I/We) worried wheth er (my/our) food would run out before (I/we) got money to buy more. DK or Refused [facility] Start: 09-27-2023 Alcoholic beverage intake Current drinker of alcohol (finding) [facility] Start: 01-21-2024 Alcohol Comment Rare [facility] Start: 07-28-2024 End: 08-20-2024 Sex Female (finding) [facility] Medical Equipment Procedure Code Equipment Code Equipment Original Text Equipment Identifier Dates EGD, with monitored anesthesia care Ligation clip, metallic [id number] Start: 05-14-2024 [id number] Start: 05-09-2021 Comment on above: use 1 TEST STRIP to TEST BLOOD SUGAR once daily Test blood sugar(s) 1 times daily. Dx: Type 2 DM - Controlled E11.9 Insulin: No Drug-eluting coronary artery stent, non-bioabsorbable -polymer-coated ()[id number] FDA Start: 12-27-2022 Drug-eluting coronary artery stent, non-bioabsorbable -polymer-coated ()[id number] FDA Start: 12-27-2022 Goals Date Patient Goal Desired Activity /State Functional Status Date Assessment Result Facility 12-28-2022 Functional status Bathroom Privilege [facility] Work Phone: Mental Status Date Assessment Result Facility 05-14-2024 Cognitive function Voice/Name [facility] Work Phone: 05-10-2024 Cognitive function Level Of Cons ciousness Awake;Alert;Appropriate;Follow s Commands [facility] Work Phone: 04-28-2023 Cognitive function Level Of Cons ciousness Awake;Alert;Appropriate [facility] Work Phone: 03-29-2023 Cognitive function Voice/Name [facility] Work Phone: 02-27-2023 Cognitive function Voice/Name [facility] Work Phone: 12-31-2022 Cognitive function Voice/Name [facility] Work Phone: 12-28-2022 Cognitive function Voice/Name [facility] Work Phone: 10-12-2022 Cognitive function Awake;Alert;Appropriat e [facility] Work Phone: Clinical Notes 08-08-2021 to 09-18-2024 Telephone Encounter - Julieta Campuzano MA - 09/18/2024 3:25 PM EDTTelephone Encounter - Julieta Campuzano MA - 09/18/2024 3:25 PM Jacque Jennings PA - 08/19/2024 3:29 PM EDTPatient Instructions Note Date & Type Note Facility 09-18-2024 Telephone encounter Note X-ray scanned in documents. [facility] 09-18-2024 Miscellaneous Notes X-ray scanned in documents. documented in this encounter [facility] 09-18-2024 Radiology Diagnostic study note [facility] Imaging Services [address] [place], [place] [id number] Chest PA and Lateral MR#: [id number] Acct: [id number] Name: CASSIA HOLLAND Rep #: [id number] : 1965 F [id number] From: Dale Schwartz MD PCP: Dr. Opal Mathews MD Status: REG C [place] Study:Chest PA and Lateral Date of Exam: 09/17/24 Exam# [id number] Ordering Dr: Lauro Mason MD PROCEDURE: CHEST PA AND LATERAL 09/17/2024 REASON FOR EXAM: SOB, COUGH TECHNIQUE: Frontal and lateral views of the chest. COMPARISON: 05/10/2024 FINDINGS: Mild increased appearing bilateral perihilar markings may be inflammatory/infectious, possible viral etiology or less likely edema, clinically correlate. No focal consolidation or pleural effusion. The cardiac and mediastinal contours appear within limits. Asymmetric right mid cervical facet hypertrophic changes. Old right-sided rib fracture again noted. RAD/Chest PA and Lateral IMPRESSION: Mild increased appearing bilateral perihilar markings may be inflammatory/infectious, possible viral etiology or less likely edema, clinically correlate. No focal consolidation or pleural effusion. Reading Location: [facility] CC: Dr. Opal Mathews MD; Dr. Lauro Mason MD ~ Biodiesel Production Technician: Signed [facility] 08-27-2024 Note HNO ID: [id number] Author: SHAHRIAR BROWN APRN.MOLD MAKING SUPERVISOR Service: ? Author Type: Nurse Practitioner Type: Progress Notes Filed: 08/27/2024 17:02 Note Text: CC: Patient presents with: Recheck: 3 month follow up HPI Cassia Holland is a 58 year old female who presents today for routine follow up. Recording using enStage software for draft documentation of the visit was discussed with the patient/authorized congressional representative; all questions welcomed and answered. Patient/authorized congressional representative agreed to proceed Liver Fibrosis: - Last blood work showed improvement. 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 - Colonoscopy scheduled for October 01. Anemia: - Reports improvement in fatigue and pallor since treatment for gastric bleeding. - Denies melena, hematochezia, abdominal pain, nausea, or emesis. Anxiety: - Currently taking citalopram 40 mg and Wellbutrin 150 mg. - Recent psychiatric evaluation for disability application without reported concern. - No suicidal or homicidal ideation. - reports sleeping well and normal appetite. - lives with sister Dyspnea: - chronic without change - Dyspnea attributed to weight gain and residual lung damage from COVID-19. - Recent pulmonary function test showed slight improvement. - denies cough, wheezing, fever, chills. Hypertension: - Taking losartan; missed dose today. - Denies chest pain or palpitations. - follows with [facility] and has appointment with them next week. Had a stress test last week. Edema: - Notable edema in the left leg, more pronounced than the right. Allergies: - Seasonal allergies; considering allergy shots. - Follow-up with ENT pending. REVIEW OF SYSTEMS See HPI PAST MEDICAL HISTORY Diagnosis Date Diabetes (HCC) adult onset Fibromyalgia Graves disease High blood pressure HSV-2 infection Interstitial lung disease (HCC) Lupus Mixed connective tissue disease (HCC) Raynaud disease PAST SURGICAL HISTORY Procedure Laterality Date D AND C HYSTERECTOMY LAPAROSCOPY DIAGNOSTIC PAST SURGICAL HISTORY OF 7 sinus surgeries PAST SURGICAL HISTORY OF bilateral cataract surgeries PT [facility] HEART AND VASCULAR 12/2022 2 heart stents placed PT ED HEART AND VASCULAR 09/2023 heart ablation TONSILLECTOMY HX ALLERGIES Cantaloupe, Levaquin [Levofloxacin], and Sulfa (Sulfonamide Antibiotics) MEDICATIONS buPROPion XL (WELLBUTRIN XL) 150 mg 24 hr tablet Take 1 tablet by mouth once daily. citalopram (CELEXA) 40 mg tablet Take 1 tablet by mouth once daily. losartan (COZAAR) 50 mg tablet Take 1 tablet by mouth once daily. montelukast (SINGULAIR) 10 mg tablet Take 1 tablet by mouth once daily. metFORMIN ER (GLUCOPHAGE XR) 500 mg 24 hr tablet Take 2 tablets by mouth two times a day with meals. ferrous sulfate 325 mg (65 mg iron) tablet Take 1 tablet by mouth two times a day with meals. budesonide (PULMICORT) 1 mg/2 mL nebulizer solution instill contents of 1 vial IN NASAL SALINE WASHES AND USE TWICE DAILY tiZANidine HCl (ZANAFLEX) 2 mg capsule Take 1 capsule by mouth three times a day as needed. triamcinolone acetonide (KENALOG) 0.1 % cream Apply to affected area two times a day. carvedilol (COREG) 25 mg tablet Take 12.5 mg by mouth two times a day with meals. Takes 12.5mg BID nitroglycerin sublingual (NITROSTAT) 0.4 mg SL tablet Dissolve 0.4 mg under the tongue every 5 minutes as needed for chest pain. hydrOXYchloroQUINE (PLAQUENIL) 200 mg tablet Take 200 mg by mouth once daily. isosorbide mononitrate ER (IMDUR) 30 mg 24 hr tablet Take 30 mg by mouth every morning. lansoprazole (PREVACID) 30 mg capsule take 1 capsule by mouth once daily , 1/2 HOUR BEFORE BREAKFAST fluticasone (FLONASE) 50 mcg/actuation nasal spray instill 2 sprays into each nostril once daily benzonatate (TESSALON PERLES) 100 mg capsule Take 2 capsules by mouth three times a day as needed for cough. apixaban (ELIQUIS) 5 mg tab(s) Take 5 mg by mouth two times a day. pravastatin sodium (PRAVASTATIN ORAL) Take by mouth. hydroCHLOROthiazide 25 mg tablet take 1 tablet by mouth once daily EPINEPHrine (EPIPEN) 0.3 mg/0.3 mL auto-injector Use per directed for severe allergic reaction lancets (RetSKUUCH DELICA PLUS LANCET) 33 gauge Test blood sugar(s) 1 times daily. Dx: Type 2 DM - Controlled E11.9 Insulin: No blood sugar diagnostic (RetSKUUCH ULTRA TEST) test strip use 1 TEST STRIP to TEST BLOOD SUGAR once daily levalbuterol tartrate HFA (XOPENEX HFA) 45 mcg/actuation inhaler Inhale 1-2 Puffs as instructed every 4 hours as needed. Blood-Glucose Meter Dispense 1 kit FAMILY HISTORY Problem Relation Age of Onset Heart Mother stents Hypertension Mother other (pacemaker) Mother other (enlarged heart) Mother other (vertigo) Mother Arthritis Mother Prostate Cancer Father other (sjogrens) Sister No Kn (more content not included)... [facility] 08-19-2024 Note HNO ID: [id number] Author: JACQUE ARRIOLA PA Service: ? Author Type: Physician Carpet Mechanic Type: Progress Notes Filed: 08/19/2024 15:56 Note Text: [facility] Subjective Cassia Holland is a 58 year old female. Patient presents with: right foot pain: Stepped on a nail this am HPI 58-year-old female presents for puncture wound to right foot. Patient states that she stepped on a carpet nail this morning twice. She was barefoot. She has 2 small puncture wounds to right heel. No active bleeding. No pain. No drainage. She states she was advised to come in by PCP for tetanus. Unsure when last tetanus was. She does have diabetes. No other complaint PAST MEDICAL HISTORY Diagnosis Date Diabetes (HCC) adult onset Fibromyalgia Graves disease High blood pressure HSV-2 infection Interstitial lung disease (HCC) Lupus Mixed connective tissue disease (HCC) Raynaud disease PAST SURGICAL HISTORY Procedure Laterality Date D AND C HYSTERECTOMY LAPAROSCOPY DIAGNOSTIC PAST SURGICAL HISTORY OF 7 sinus surgeries PAST SURGICAL HISTORY OF bilateral cataract surgeries PT ED HEART AND VASCULAR 12/2022 2 heart stents placed PT ED HEART AND VASCULAR 09/2023 heart ablation TONSILLECTOMY HX ALLERGIES Cantaloupe, Levaquin [Levofloxacin], and Sulfa (Sulfonamide Antibiotics) MEDICATIONS montelukast (SINGULAIR) 10 mg tablet Take 1 tablet by mouth once daily. metFORMIN ER (GLUCOPHAGE XR) 500 mg 24 hr tablet Take 2 tablets by mouth two times a day with meals. ferrous sulfate 325 mg (65 mg iron) tablet Take 1 tablet by mouth two times a day with meals. budesonide (PULMICORT) 1 mg/2 mL nebulizer solution instill contents of 1 vial IN NASAL SALINE WASHES AND USE TWICE DAILY tiZANidine HCl (ZANAFLEX) 2 mg capsule Take 1 capsule by mouth three times a day as needed. citalopram (CELEXA) 40 mg tablet Take 1 tablet by mouth once daily. buPROPion XL (WELLBUTRIN XL) 150 mg 24 hr tablet Take 1 tablet by mouth once daily. triamcinolone acetonide (KENALOG) 0.1 % cream Apply to affected area two times a day. carvedilol (COREG) 25 mg tablet Take 12.5 mg by mouth two times a day with meals. Takes 12.5mg BID nitroglycerin sublingual (NITROSTAT) 0.4 mg SL tablet Dissolve 0.4 mg under the tongue every 5 minutes as needed for chest pain. losartan (COZAAR) 50 mg tablet Take 1 tablet by mouth once daily. hydrOXYchloroQUINE (PLAQUENIL) 200 mg tablet Take 200 mg by mouth once daily. isosorbide mononitrate ER (IMDUR) 30 mg 24 hr tablet Take 30 mg by mouth every morning. lansoprazole (PREVACID) 30 mg capsule take 1 capsule by mouth once daily , 1/2 HOUR BEFORE BREAKFAST fluticasone (FLONASE) 50 mcg/actuation nasal spray instill 2 sprays into each nostril once daily benzonatate (TESSALON PERLES) 100 mg capsule Take 2 capsules by mouth three times a day as needed for cough. apixaban (ELIQUIS) 5 mg tab(s) Take 5 mg by mouth two times a day. pravastatin sodium (PRAVASTATIN ORAL) Take by mouth. clopidogrel (PLAVIX) 75 mg tablet take 4 tablets by mouth on day 1 then 1 tablet by mouth once daily after hydroCHLOROthiazide 25 mg tablet take 1 tablet by mouth once daily EPINEPHrine (EPIPEN) 0.3 mg/0.3 mL auto-injector Use per directed for severe allergic reaction lancets (RetSKUUCH DELICA PLUS LANCET) 33 gauge Test blood sugar(s) 1 times daily. Dx: Type 2 DM - Controlled E11.9 Insulin: No blood sugar diagnostic (tenXerTOUCH ULTRA TEST) test strip use 1 TEST STRIP to TEST BLOOD SUGAR once daily levalbuterol tartrate HFA (XOPENEX HFA) 45 mcg/actuation inhaler Inhale 1-2 Puffs as instructed every 4 hours as needed. Blood-Glucose Meter Dispense 1 kit cephALEXin (KEFLEX) 500 mg capsule Take 1 capsule by mouth four times daily for 5 days. FAMILY HISTORY Problem Relation Age of Onset Heart Mother stents Hypertension Mother other (pacemaker) Mother other (enlarged heart) Mother other (vertigo) Mother Arthritis Mother Prostate Cancer Father other (sjogrens) Sister No Known Problems Maternal Grandmother Heart Attack Maternal Grandfather No Known Problems Paternal Grandmother No Known Problems Paternal Grandfather Social History Tobacco Use Smoking status: Never Smokeless tobacco: Never Vaping Use Vaping status: Never Used Substance Use Topics Alcohol use: Not Currently Comment: Rare Drug use: Never Review of Systems Constitutional: Negative for chills and fever. HENT: Negative for congestion, ear pain and sore throat. Respiratory: Negative for cough and shortness of breath. Cardiovascular: Negative for chest pain. Gastrointestinal: Negative for diarrhea and vomiting. Skin: Positive for wound. Objective BP 132/82 Pulse 81 Temp 36.7 ?C (98 ?F) (Tympanic) Resp 18 Wt 89 kg (196 lb 3.4 oz) SpO2 99% BMI 35.60 kg/m? Physical Exam Vitals and nursing note reviewed. Constitutional: General: She is not in acute distress. Appearan (more content not included)... [facility] 08-19-2024 History of Presen t illness Narrative Images from the original note were not included. [facility] Subjective Cassia Holland is a 58 year old female. Patient presents with: right foot pain: Stepped on a nail this am HPI 58-year-old female presents for puncture wound to right foot. Patient states that she stepped on a carpet nail this morning twice. She was barefoot. She has 2 small puncture wounds to right heel. No active bleeding. No pain. No drainage. She states she was advised to come in by PCP for tetanus. Unsure when last tetanus was. She does have diabetes. No other complaint PAST MEDICAL HISTORY Diagnosis Date Diabetes (HCC) adult onset Fibromyalgia Graves disease High blood pressure HSV-2 infection Interstitial lung disease (HCC) Lupus Mixed connective tissue disease (HCC) Raynaud disease PAST SURGICAL HISTORY Procedure Laterality Date D AND C HYSTERECTOMY LAPAROSCOPY DIAGNOSTIC PAST SURGICAL HISTORY OF 7 sinus surgeries PAST SURGICAL HISTORY OF bilateral cataract surgeries PT ED HEART AND VASCULAR 12/2022 2 heart stents placed PT ED HEART AND VASCULAR 09/2023 heart ablation TONSILLECTOMY HX ALLERGIES Cantaloupe, Levaquin [Levofloxacin], and Sulfa (Sulfonamide Antibiotics) MEDICATIONS montelukast (SINGULAIR) 10 mg tablet Take 1 tablet by mouth once daily. metFORMIN ER (GLUCOPHAGE XR) 500 mg 24 hr tablet Take 2 tablets by mouth two times a day with meals. ferrous sulfate 325 mg (65 mg iron) tablet Take 1 tablet by mouth two times a day with meals. budesonide (PULMICORT) 1 mg/2 mL nebulizer solution instill contents of 1 vial IN NASAL SALINE WASHES AND USE TWICE DAILY tiZANidine HCl (ZANAFLEX) 2 mg capsule Take 1 capsule by mouth three times a day as needed. citalopram (CELEXA) 40 mg tablet Take 1 tablet by mouth once daily. buPROPion XL (WELLBUTRIN XL) 150 mg 24 hr tablet Take 1 tablet by mouth once daily. triamcinolone acetonide (KENALOG) 0.1 % cream Apply to affected area two times a day. carvedilol (COREG) 25 mg tablet Take 12.5 mg by mouth two times a day with meals. Takes 12.5mg BID nitroglycerin sublingual (NITROSTAT) 0.4 mg SL tablet Dissolve 0.4 mg under the tongue every 5 minutes as needed for chest pain. losartan (COZAAR) 50 mg tablet Take 1 tablet by mouth once daily. hydrOXYchloroQUINE (PLAQUENIL) 200 mg tablet Take 200 mg by mouth once daily. isosorbide mononitrate ER (IMDUR) 30 mg 24 hr tablet Take 30 mg by mouth every morning. lansoprazole (PREVACID) 30 mg capsule take 1 capsule by mouth once daily , 1/2 HOUR BEFORE BREAKFAST fluticasone (FLONASE) 50 mcg/actuation nasal spray instill 2 sprays into each nostril once daily benzonatate (TESSALON PERLES) 100 mg capsule Take 2 capsules by mouth three times a day as needed for cough. apixaban (ELIQUIS) 5 mg tab(s) Take 5 mg by mouth two times a day. pravastatin sodium (PRAVASTATIN ORAL) Take by mouth. clopidogrel (PLAVIX) 75 mg tablet take 4 tablets by mouth on day 1 then 1 tablet by mouth once daily after hydroCHLOROthiazide 25 mg tablet take 1 tablet by mouth once daily EPINEPHrine (EPIPEN) 0.3 mg/0.3 mL auto-injector Use [...] as instructed every 4 hours as needed. Blood-Glucose Meter Dispense 1 kit cephALEXin (KEFLEX) 500 mg capsule Take 1 capsule by mouth four times daily for 5 days. FAMILY HISTORY Problem Relation Age of Onset Heart Mother stents Hypertension Mother other (pacemaker) Mother other (enlarged heart) Mother other (vertigo) Mother Arthritis Mother Prostate Cancer Father other (sjogrens) Sister No Known Problems Maternal Grandmother Heart Attack Maternal Grandfather No Known Problems Paternal Grandmother No Known Problems Paternal Grandfather Social History Tobacco Use Smoking status: Never Smokeless tobacco: Never Vaping Use Vaping status: Never Used Substance Use Topics Alcohol use: Not Currently Comment: Rare Drug use: Never Review of Systems Constitutional: Negative for chills and fever. HENT: Negative for congestion, ear pain and sore throat. Respiratory: Negative for cough and shortness of breath. Cardiovascular: Negative for chest pain. Gastrointestinal: Negative for diarrhea and vomiting. Skin: Positive for wound. Objective BP 132/82 Pulse 81 Temp 36.7 C (98 F) (Tympanic) Resp 18 Wt 89 kg (196 lb 3.4 oz) SpO2 99% BMI 35.60 kg/m Physical Exam Vitals and nursing note reviewed. Constitutional: General: She is not in acute distress. Appearance: Normal appearance. She is not toxic-appearing. Cardiovascular: Pulses: Dorsalis pedis pulses are 2+ on the right side. Posterior tibial pulses are 2+ on the right side. Musculoskeletal: Feet: Feet: Right foot: Skin integrity: No skin breakdown, erythema or warmth. Comments: 2 superficial puncture wounds noted to right heel. No active bleeding. No erythema. No foreign body seen. No tenderness. No drainage or fluctuance. Normal ROM of foot. Normal sensation. Able to ambulate. Skin: General: Skin is warm and dry. Neurological: Mental Status: She is alert. {ASSESSMENT/PLAN: 1. Puncture wound of right foot, initial encounter - ICD9: 892.0, ICD10: S91.331A (primary diagnosis) - Rx for Keflex. Patient is a diabetic. Puncture wound was barefoot, not through the sole of shoe. - Follow-up for signs of infection - Tetanus updated 2. Not up to date with diphtheria-tetanus vaccination - ICD9: V49.89, ICD10: Z28.39 -Tetanus updated Diagnosis and treatment plan were discussed and questions were answered to the patient's satisfaction. Pt acknowledged understanding of concepts and follow up plan. Specific signs and symptoms that would indicate the need for higher level of care were discussed in detail warranting prompt ER evaluation. KENN Mcfadden History and Record Review External record(s) reviewed: immunization history. Differential Diagnoses - Puncture wound of foot is more likely for the following reason(s): suggested by H&P - Cellulitis is less likely for the following reason(s): H&P not suggestive - Foreign body is less likely for the following reason(s): H&P not suggestive Disposition The patient was discharged. Procedures documented in this encounter [facility] 08-19-2024 Telephone encounter Note Patient calls for puncture wound. Nurse triage completed. Protocol recommends see provider within 24 hours. Offered same day. Patient going to [place] for an appt and declined scheduling. Prefers to go to . Care advice reviewed. Patient verbalizes understanding. Reason for Disposition [1] Last tetanus shot > 5 years ago AND [2] DIRTY puncture (e.g., object OR skin was dirty, objects on ground/floor) Answer Assessment - Initial Assessment Questions 1. LOCATION: Right heel. Patient has two small puncture wounds from a carpet nail. Patient reports the carpet was placed awhile back but not that long ago. Patient reports minimal bleeding. Area was cleansed with hydrogen peroxide but concerned that she needs a tetanus shot. Patient has an appointment in [place] today and not able to come in for any of the appointments offered. Patient reports that she will go to . Spoke with to verify if a tetanus shot was needed they would administer. 2. OBJECT: Carpet nail 3. DEPTH: Not deep as carpet nails are not that deep. 4. ONSET: Earlier this morning 5. PAIN: Mild 6. TETANUS: Patient is not certain. None on file. Protocols used: Puncture [id number] [facility] 08-19-2024 Miscellaneous Notes Patient calls for puncture wound. Nurse triage completed. Protocol recommends see provider within 24 hours. Offered same day. Patient going to [place] for an appt and declined scheduling. Prefers to go to . Care advice reviewed. Patient verbalizes understanding. Reason for Disposition [1] Last tetanus shot > 5 years ago AND [2] DIRTY puncture (e.g., object OR skin was dirty, objects on ground/floor) Answer Assessment - Initial Assessment Questions 1. LOCATION: Right heel. Patient has two small puncture wounds from a carpet nail. Patient reports the carpet was placed awhile back but not that long ago. Patient reports minimal bleeding. Area was cleansed with hydrogen peroxide but concerned that she needs a tetanus shot. Patient has an appointment in [place] today and not able to come in for any of the appointments offered. Patient reports that she will go to . Spoke with to verify if a tetanus shot was needed they would administer. 2. OBJECT: Carpet nail 3. DEPTH: Not deep as carpet nails are not that deep. 4. ONSET: Earlier this morning 5. PAIN: Mild 6. TETANUS: Patient is not certain. None on file. Protocols used: Puncture [id number] documented in this encounter [facility] 08-18-2024 Note HNO ID: [id number] Author: OPAL MATHEWS MD Service: ? Author Type: Physician Type: Progress Notes Filed: 08/18/2024 17:56 Note Text: Reason for Visit Dig bite JOSE Florez is a 58-year-old female, with a history of A-fib, presenting with a laceration on the left arm. Cassia reports a laceration on the left arm sustained approximately 1 hour prior to arrival. The injury occurred when one of her cats jumped on her, using her as a jumping board. She has been cleaning the wound with hydrogen peroxide and applying Neosporin, keeping it covered with a bandage. Her sister, who has some nursing training, advised her to seek medical attention due to concerns about the wound's appearance and persistent bleeding. Cassia is currently on Eliquis and another unspecified anticoagulant for A-fib, which was treated in September with a procedure in [place]. She has a follow-up appointment at the end of September to discuss discontinuing Eliquis. She denies allergies except to cantaloupe and Levaquin. Social History Tobacco Use Smoking status: Never Smokeless tobacco: Never Vaping Use Vaping status: Never Used Substance Use Topics Alcohol use: Not Currently Comment: Rare Drug use: Never Past medical history, appointments, medications, allergies reviewed. Pertinent Lab/Diagnostic Studies are reviewed and discussed today Current Outpatient Medications: montelukast (SINGULAIR) 10 mg tablet metFORMIN ER (GLUCOPHAGE XR) 500 mg 24 hr tablet ferrous sulfate 325 mg (65 mg iron) tablet budesonide (PULMICORT) 1 mg/2 mL nebulizer solution tiZANidine HCl (ZANAFLEX) 2 mg capsule citalopram (CELEXA) 40 mg tablet buPROPion XL (WELLBUTRIN XL) 150 mg 24 hr tablet triamcinolone acetonide (KENALOG) 0.1 % cream carvedilol (COREG) 25 mg tablet nitroglycerin sublingual (NITROSTAT) 0.4 mg SL tablet losartan (COZAAR) 50 mg tablet hydrOXYchloroQUINE (PLAQUENIL) 200 mg tablet isosorbide mononitrate ER (IMDUR) 30 mg 24 hr tablet lansoprazole (PREVACID) 30 mg capsule fluticasone (FLONASE) 50 mcg/actuation nasal spray benzonatate (TESSALON PERLES) 100 mg capsule apixaban (ELIQUIS) 5 mg tab(s) pravastatin sodium (PRAVASTATIN ORAL) clopidogrel (PLAVIX) 75 mg tablet hydroCHLOROthiazide 25 mg tablet EPINEPHrine (EPIPEN) 0.3 mg/0.3 mL auto-injector lancets (tenXerTOUCH DELICA PLUS LANCET) 33 gauge blood sugar diagnostic (tenXerTOUCH ULTRA TEST) test strip levalbuterol tartrate HFA (XOPENEX HFA) 45 mcg/actuation inhaler Blood-Glucose Meter Health Maintenance Depression Screening Anxiety Screening BP Controlled (<130/80) Pneumococcal Vaccine: 50+(1 of 2 - PCV) Colorectal Cancer Screening Mammogram Screening@ Review Of Systems Skin: (+) open wound on left arm with bleeding, (+) local soreness Physical Exam BP 138/81 Pulse 89 Temp 36.8 ?C (98.2 ?F) (Temporal) Resp 16 Wt 85.3 kg (188 lb) BMI 34.11 kg/m? GENERAL: NAD, alert and oriented. SKIN: Laceration on the arm, avulsed skin linearly which is approximately but there is a circular area which is open. seeping blood. No signs of infection noted. HEAD: Normocephalic. EYES: PERRLA, EOMI, conjunctiva clear. LUNGS: Clear to auscultation bilaterally, no wheezes/rhonchi/rales. HEART: Regular rate and rhythm, no murmurs. No ectopy. EXTREMITIES: Normal, no deformities, no skin discoloration, no edema. NEURO: Awake, alert and oriented x3, cranial nerves II-XII grossly intact, normal gait, no involuntary motions. Assessment and Plan 1. Dog scratch (W54.8XXA) Bleeding from wound (T14.8XXA) Persistent bleeding from a dog scratch on the left arm since Sunday evening, exacerbated by anticoagulation therapy with Eliquis. Wound is not suitable for suturing due to its nature. - Applied pressure bandage to the wound. - Discontinue Eliquis for 3 days to allow hemostasis; resume on Sunday. - Advised against wetting the bandage and to leave it in place for 2-3 days. - Provided additional non-adherent bandages for home use. - Educated on signs of infection, including erythema and streaking, and instructed to return if these occur. - Once bleeding ceases, apply Vaseline to maintain moisture and facilitate epithelialization. Voice recognition software was used to compose this office note. Please excuse any unintended typographical errors. Recording using enStage software for draft documentation of the visit was discussed with the patient/authorized congressional representative; all questions welcomed and answered. Patient/authorized congressional representative agreed to proceed Opal Mathews MD [facility] 08-18-2024 History of Presen t illness Narrative Reason for Visit Dig bite HPI Cassia is a 58-year-old female, with a history of A-fib, presenting with a laceration on the left arm. Cassia reports a laceration on the left arm sustained approximately 1 hour prior to arrival. The injury occurred when one of her cats jumped on her, using her as a jumping board. She has been cleaning the wound with hydrogen peroxide and applying Neosporin, keeping it covered with a bandage. Her sister, who has some nursing training, advised her to seek medical attention due to concerns about the wound's appearance and persistent bleeding. Cassia is currently on Eliquis and another unspecified anticoagulant for A-fib, which was treated in September with a procedure in [place]. She has a follow-up appointment at the end of September to discuss discontinuing Eliquis. She denies allergies except to cantaloupe and Levaquin. Social History Tobacco Use Smoking status: Never Smokeless tobacco: Never Vaping Use Vaping status: Never Used Substance Use Topics Alcohol use: Not Currently Comment: Rare Drug use: Never Past medical history, appointments, medications, allergies reviewed. Pertinent Lab/Diagnostic Studies are reviewed and discussed today Current Outpatient Medications: montelukast (SINGULAIR) 10 mg tablet metFORMIN ER (GLUCOPHAGE XR) 500 mg 24 hr tablet ferrous sulfate 325 mg (65 mg iron) tablet budesonide (PULMICORT) 1 mg/2 mL nebulizer solution tiZANidine HCl (ZANAFLEX) 2 mg capsule citalopram (CELEXA) 40 mg tablet buPROPion XL (WELLBUTRIN XL) 150 mg 24 hr tablet triamcinolone acetonide (KENALOG) 0.1 % cream carvedilol (COREG) 25 mg tablet nitroglycerin sublingual (NITROSTAT) 0.4 mg SL tablet losartan (COZAAR) 50 mg tablet hydrOXYchloroQUINE (PLAQUENIL) 200 mg tablet isosorbide mononitrate ER (IMDUR) 30 mg 24 hr tablet lansoprazole (PREVACID) 30 mg capsule fluticasone (FLONASE) 50 mcg/actuation nasal spray benzonatate (TESSALON PERLES) 100 mg capsule apixaban (ELIQUIS) 5 mg tab(s) pravastatin sodium (PRAVASTATIN ORAL) clopidogrel (PLAVIX) 75 mg tablet hydroCHLOROthiazide 25 mg tablet EPINEPHrine (EPIPEN) 0.3 mg/0.3 mL auto-injector lancets (ONETOUCH DELICA PLUS LANCET) 33 gauge blood sugar diagnostic (ONETOUCH ULTRA TEST) test strip levalbuterol tartrate HFA (XOPENEX HFA) 45 mcg/actuation inhaler Blood-Glucose Meter Health Maintenance Depression Screening Anxiety Screening BP Controlled (<130/80) Pneumococcal Vaccine: 50+(1 of 2 - PCV) Colorectal Cancer Screening Mammogram Screening@ Review Of Systems Skin: (+) open wound on left arm with bleeding, (+) local soreness Physical Exam BP 138/81 Pulse 89 Temp 36.8 C (98.2 F) (Temporal) Resp 16 Wt 85.3 kg (188 lb) BMI 34.11 kg/m GENERAL: NAD, alert and oriented. SKIN: Laceration on the arm, avulsed skin linearly which is approximately but there is a circular area which is open. seeping blood. No signs of infection noted. HEAD: Normocephalic. EYES: PERRLA, EOMI, conjunctiva clear. LUNGS: Clear to auscultation bilaterally, no wheezes/rhonchi/rales. HEART: Regular rate and rhythm, no murmurs. No ectopy. EXTREMITIES: Normal, no deformities, no skin discoloration, no edema. NEURO: Awake, alert and oriented x3, cranial nerves II-XII grossly intact, normal gait, no involuntary motions. Assessment and Plan 1. Dog scratch (W54.8XXA) Bleeding from wound (T14.8XXA) Persistent bleeding from a dog scratch on the left arm since Sunday evening, exacerbated by anticoagulation therapy with Eliquis. Wound is not suitable for suturing due to its nature. - Applied pressure bandage to the wound. - Discontinue Eliquis for 3 days to allow hemostasis; resume on Sunday. - Advised against wetting the bandage and to leave it in place for 2-3 days. - Provided additional non-adherent bandages for home use. - Educated on signs of infection, including erythema and streaking, and instructed to return if these occur. - Once bleeding ceases, apply Vaseline to maintain moisture and facilitate epithelialization. Voice recognition software was used to compose this office note. Please excuse any unintended typographical errors. Recording using enStage software for draft documentation of the visit was discussed with the patient/authorized congressional representative; all questions welcomed and answered. Patient/authorized congressional representative agreed to proceed Opal Mathews MD documented in this encounter [facility] 08-18-2024 Instructions Opal Mathews MD - 08/18/2024 4:35 PM EDT We discussed your arm wound: - The wound is bleeding due to your use of Eliquis (a blood thinner). To manage this: - Stop taking Eliquis for 3 days, starting today (Sunday). Resume Eliquis on Sunday. - A pressure bandage has been applied to help stop the bleeding. Leave the bandage in place for 2-3 days and avoid getting it wet. - If the bandage feels too tight or uncomfortable, you may loosen it slightly or reapply it more loosely. - After the bleeding stops, you can apply Vaseline to the wound to keep it moist and promote healing. Cover it lightly with a bandage to protect it. - Watch for signs of infection, such as redness, swelling, warmth, or red streaks spreading from the wound. If you notice any of these symptoms, please contact our office immediately. - You were sent home with additional non-adherent bandages to use if needed. Once the bleeding stops, you will not need to continue using bandages. If you have any questions or concerns, or if the wound does not improve, please let us know. documented in this encounter [facility] 08-12-2024 Telephone encounter Note Patient MyChart message requesting the following refill Refill(s) Requested: Requested Prescriptions Pending Prescriptions Disp Refills montelukast (SINGULAIR) 10 mg tablet 90 tablet 3 Sig: Take 1 tablet by mouth once daily. metFORMIN ER (GLUCOPHAGE XR) 500 mg 24 hr tablet 360 tablet 1 Sig: Take 2 tablets by mouth two times a day with meals. ALLERGIES Allergen Reactions Cantaloupe Angioedema Levaquin [Levofloxa* Rash Sulfa (Sulfonamide * Hives (home) [phone] (cell) Last Office Visit Date: 05/28/2024 Last Distance Health Visit: Visit date not found Future Appointment: 08/27/2024 The patients preferred pharmacy has been captured for this encounter? yes Request is for script(s) to be escript to pharmacy. Bonnie Pompa LPN [facility] 08-12-2024 Miscellaneous Notes Patient [employer] message requesting the following refill Refill(s) Requested: Requested Prescriptions Pending Prescriptions Disp Refills montelukast (SINGULAIR) 10 mg tablet 90 tablet 3 Sig: Take 1 tablet by mouth once daily. metFORMIN ER (GLUCOPHAGE XR) 500 mg 24 hr tablet 360 tablet 1 Sig: Take 2 tablets by mouth two times a day with meals. ALLERGIES Allergen Reactions Cantaloupe Angioedema Levaquin [Levofloxa* Rash Sulfa (Sulfonamide * Hives (home) [phone] (cell) Last Office Visit Date: 05/28/2024 Last Distance Health Visit: Visit date not found Future Appointment: 08/27/2024 The patients preferred pharmacy has been captured for this encounter? yes Request is for script(s) to be escript to pharmacy. Bonnie Pompa LPN documented in this encounter [facility] 08-04-2024 Telephone encounter Note Forms faxed as requested. [facility] 08-04-2024 Miscellaneous Notes Forms faxed as requested. Form filled out. Please fax as requested and update patient. Thank you Shahriar Brown APRN.MOLD MAKING SUPERVISOR documented in this encounter [facility] 08-04-2024 Telephone encounter Note Form filled out. Please fax as requested and update patient. Thank you Shahriar Brown APRN.CNP [facility] 07-28-2024 Radiology Diagnostic study note [facility] Imaging Services [address] [place] [address] Chest without Contrast MR#: [id number] Acct: [id number] Name: CASSIA HOLLAND Rep #: [id number] : 1965 F 58 From: Evangelina Casey MD PCP: Dr. Opal Mathews MD Status: REG C [place] Study:Chest without Contrast Date of Exam: 07/28/24 Exam# [id number] Ordering Dr: Lauro Mason MD EXAM: CT Chest Without Intravenous Contrast CLINICAL INDICATION: CHEST PAIN ON BREATHING TECHNIQUE: Axial computed tomography images of the chest without intravenous contrast. This CT exam was performed using one or more of the following dose reduction techniques: automated exposure control, adjustment of the mA and/or kV according to patient size, and/or use of iterative reconstruction technique. COMPARISON: CT Chest dated 10/22/2023 FINDINGS: LUNGS AND PLEURAL SPACES: Lung emphysema/COPD. No consolidation. No pneumothorax. No significant effusion. No new suspicious pulmonary nodules. HEART: Unremarkable. No cardiomegaly. No significant pericardial effusion. No significant coronary artery calcifications. BONES/JOINTS: Unremarkable. No acute fracture. No dislocation. SOFT TISSUES: Unremarkable. VASCULATURE: Unremarkable. No thoracic aortic aneurysm. LYMPH NODES: Unremarkable. No enlarged lymph nodes. CT/Chest without Contrast IMPRESSION: 1. No new suspicious pulmonary nodules. 2. Lung emphysema/COPD. Reading Location: [facility] CC: Dr. Opal Mathews MD; Dr. Lauro Mason MD ~ Biodiesel Production Technician: Signed [facility] 06-30-2024 Evaluation note Diagnosis Onset Date Resolution Coronary artery disease chronic F ebruary 5 9:37am Diabetes chronic June 30, 2024 9:37am Dyslipidemia chronic June 9:37am Essential hypertension chronic 2024 9:37am Graves disease chronic June 082024 9:37am Interstitial lung disease chronic June 30 9:37am Paroxysmal atrial fibrillation chronic June 30 9:37am Raynaud disease chronic June 30, 2024 9:37am [facility] Work Phone: 1(586) 950-311902-24-2025 Evaluation note* Diagnosis Onset Date Resolution Status Admit Date Coronary artery disease chronic F ary 2024 9:37am Diabetes chronic June 30, 2024 9:37am Dyslipidemia chronic June 9:37am Essential hypertension chronic 2024 9:37am Graves disease chronic June 082024 9:37am Interstitial lung disease chronic June 30, 2024 9:37am Paroxysmal atrial fibrillation chron ic June 30, 2024 9:37am Raynaud disease chronic June 30, 2024 9:37am Coronary artery disease chronic [facility] 2024 1:35pm Diabetes chronic October 20 1:35pm Dyslipidemia chronic October 20 1:35pm Essential hypertension chronic Ju 2024 1:35pm Graves disease chronic October 20, 2024 1:35pm Interstitial lung disease chronic October 20, 2024 1:35pm Paroxysmal atrial fibrillation chron ic October 20, 2024 1:35pm Raynaud disease chronic October 1:35pm [facility] Work Phone: 1(413) 187-832002-12-2025 Evaluation note* Diagnosis Onset Date Resolution Status Admit Date Fatigue acute June 18, 2024 9:15am Fatty liver acute June 9:15am Anemia inactive June 18, 2024 9:15am Coronary artery disease chronic F ebary 2024 9:37am Diabetes chronic June 30, 2024 9:37am Dyslipidemia chronic June 9:37am Essential hypertension chronic 2024 9:37am Graves disease chronic June 082024 9:37am Interstitial lung disease chronic June 30, 2024 9:37am Paroxysmal atrial fibrillation chronic June 30, 2 025 9:37am Raynaud disease chronic June 30, 2024 9:37am [facility] Work Phone: 1(615) 234-532102-03-2025 Telephone encounter Note* Telephone Encounter - Reyna Lamb RN - 06/09/2024 9:16 AM EST Pt scheduled on 06/10/24. [facility]02-03-2025 Miscellaneous Notes* Telephone Encounter - Reyna Lamb RN - 06/09/2024 9:16 AM EST Pt scheduled on 06/10/24. * Telephone Encounter - Reyna Lamb RN - 06/06/2024 12:33 PM EST Called and left a detailed voicemail notifying patient of providers message per Pts request and sent in a [employer] message. Clinic phone number was left for patient call and schedule an appointment. Reyna Lamb RN * Telephone Encounter - Shahriar Brown APRN.CNP - 06/06/2024 12:20 PM EST She needs seen. With her cardiac history, recent GI bleed, and multiple other co-morbidities there could be a multitude of issues. Thank you Shahriar Brown APRN.CNP * Telephone Encounter - Reyna Lamb RN - 06/06/2024 11:03 AM EST Protocol recommends see PCP in 3 days. I told her provider would probably want to see her, but she thought she would only want to do lab work. She wanted to wait to hear from provider first. Care plan reviewed with patient. Patient voices understanding. Advised patient that if symptoms get worse delmi evaluated in Urgent Care or ER. Reason for Disposition [1] MODERATE dizziness (e.g., vertigo; feels very unsteady, interferes with normal activities) AND [2] has been evaluated by doctor (or [facility] LININGS/PA) for this Answer Assessment - Initial Assessment Questions 1. DESCRIPTION: Pt states when she stands up it feels like the room is spinning. 2. VERTIGO: Pt feels like the room is spinning, when she stands up. 3. LIGHTHEADED: She feels weak upon standing. 4. SEVERITY: How bad is it? Can you walk? - MILD: Feels slightly dizzy and unsteady, but is walking normally. - MODERATE: Feels unsteady when walking, but not falling; interferes with normal activities (e.g., school, work). - SEVERE: Unable to walk without falling, or requires assistance to walk without falling. Pt reports moderate dizziness, she feels unsteady but hasn't fallen. She reports she can walk. She states after she has stood for a while the dizziness will go away. 5. ONSET: The dizziness began about a year ago. She states the dizziness today is worse than it wasyesterday. She reports she isn't dizzy all the time, but it has been happening more frequently today. 6. AGGRAVATING FACTORS: Pt states standing makes the dizziness come. 7. CAUSE: Pt thinks low iron is causing the dizziness. 8. RECURRENT SYMPTOM: Pt has this dizziness before. She reports she is on iron. She states they didan upper scope and cauterized some bleeds and removed some polyps. Pt states they are supposed to do a lower scope in July. That was the earliest they could get her in. 9. OTHER SYMPTOMS: Pt denies earache, headache, numbness, or vomiting. Pt reports tinnitus, weakness, and extreme fatigue. 10. : Denies. Protocols used: Dizziness - [id number] [facility] Telephone encounter Note * Telephone Encounter - Reyna Lamb RN - 06/06/2024 12:33 PM EST Called and left a detailed voicemail notifying patient of providers message per Pts request and sent in a [employer] message. Clinic phone number was left for patient call and schedule an appointment. Reyna Lamb RN [facility]01-31-2025 Telephone encounter Note* Telephone Encounter - Shahriar Brown APRN.CNP - 06/06/2024 12:20 PM EST She needs seen. With her cardiac history, recent GI bleed, and multiple other co-morbidities there could be a multitude of issues. Thank you Shahriar Brown APRN.CNP [facility]01-31-2025 Telephone encounter Note* Telephone Encounter - Reyna Lamb RN - 06/06/2024 11:03 AM EST Protocol recommends see PCP in 3 days. I told her provider would probably want to see her, but she thought she would only want to do lab work. She wanted to wait to hear from provider first. Care plan reviewed with patient. Patient voices understanding. Advised patient that if symptoms get worse delmi evaluated in Urgent Care or ER. Reason for Disposition [1] MODERATE dizziness (e.g., vertigo; feels very unsteady, interferes with normal activities) AND [2] has been evaluated by doctor (or [facility]ERS OR LININGS/PA) for this Answer Assessment - Initial Assessment Questions 1. DESCRIPTION: Pt states when she stands up it feels like the room is spinning. 2. VERTIGO: Pt feels like the room is spinning, when she stands up. 3. LIGHTHEADED: She feels weak upon standing. 4. SEVERITY: How bad is it? Can you walk? - MILD: Feels slightly dizzy and unsteady, but is walking normally. - MODERATE: Feels unsteady when walking, but not falling; interferes with normal activities (e.g., school, work). - SEVERE: Unable to walk without falling, or requires assistance to walk without falling. Pt reports moderate dizziness, she feels unsteady but hasn't fallen. She reports she can walk. She states after she has stood for a while the dizziness will go away. 5. ONSET: The dizziness began about a year ago. She states the dizziness today is worse than it wasyesterday. She reports she isn't dizzy all the time, but it has been happening more frequently today. 6. AGGRAVATING FACTORS: Pt states standing makes the dizziness come. 7. CAUSE: Pt thinks low iron is causing the dizziness. 8. RECURRENT SYMPTOM: Pt has this dizziness before. She reports she is on iron. She states they didan upper scope and cauterized some bleeds and removed some polyps. Pt states they are supposed to do a lower scope in July. That was the earliest they could get her in. 9. OTHER SYMPTOMS: Pt denies earache, headache, numbness, or vomiting. Pt reports tinnitus, weakness, and extreme fatigue. 10. : Denies. Protocols used: Dizziness - [id number] [facility]01-22-2025 NoteHNO ID: [id number] Author: SHAHRIAR BROWN APRN.MOLD MAKING SUPERVISOR Service: ? Author Type: Nurse Practitioner Type: Progress Notes Filed: 05/28/2024 18:33 Note Text: CC: Patient presents with: Recheck: Follow up HPI Cassia Holland is a 58 year old female who presents today for 2 week follow up post upper EGD for occult GI bleeding .Patient presented to the ER on 05/10/24 related to extreme fatigue and dizziness. Patient reports that most concerning symptoms prior to EGD such as the intense fatigue, dizziness and lightheadedness, dark stools, generalized weakness, hot with increased sweating, SOB with exertion, face puffiness, headaches, sinus pressure, ringing in ears, and bloody sinus drainage but was green with sinus rinse. are starting to resolve from continuous to intermittent with no reports of green with sinus rinse. Last visit prior to EGD. Most concerning symptoms were: Current symptoms: still with intense fatigue, dizziness and lightheadedness, dark stools, generalized weakness, hot with increased sweating, SOB with exertion, face puffiness, headaches, sinus pressure, ringing in ears, and bloody sinus drainage but was green with sinus rinse. Had EGD as planned and reports they found multiple gastric polyps and reported Cauterization and clamping of lesions and gastric polyps were removed States that symptoms have lessened in intensity and are intermittent now. No longer with dark stool or green sinus drainage. Now has a Colonoscopy on July 30 of this year DIABETES MELLITUS: Ms. Holland denies excessive thirst or increased frequency of urination, chest pain or dyspnea , numbness, tingling or pain in extremities, new or unusual visual symptoms, low sugar/hypoglycemic reactions, weight loss/gain, lightheadedness/dizziness, and bowel changes/loose stools,denies positive DM symptoms Follows a diabetic diet some of the time. She is compliant with medication(s) and is tolerating med(s) without any side effects. She reports checking her glucose on a blood glucose test strip a few times a month and when she feels she may be hypoglycemic.schedule with sugars in the <120 range. Patient's last HgA1C was Hemoglobin A1C (%) Date Value 12/18/2023 5.6 06/13/2023 6.4 05/05/2021 7.3 12/24/2020 9.1 Hemoglobin A1C (POCT) (%) Date Value 01/19/2022 7.2 10/13/2021 8.4 ) Denies secondary issues of DM REVIEW OF SYSTEMS General: no fevers, no [...] chest pressure, no palpitations, and no swelling Skin: Negative for lesions, rash, and itching PAST MEDICAL HISTORY Diagnosis Date Diabetes (HCC) adult onset Fibromyalgia Graves disease High blood pressure HSV-2 infection Interstitial lung disease (HCC) Lupus (HCC) Mixed connective tissue disease (HCC) Raynaud disease PAST SURGICAL HISTORY Procedure Laterality Date D AND C HYSTERECTOMY LAPAROSCOPY DIAGNOSTIC PAST SURGICAL HISTORY OF 7 sinus surgeries PAST SURGICAL HISTORY OF bilateral cataract surgeries PT ED HEART AND VASCULAR 12/2022 2 heart stents placed PT ED HEART AND VASCULAR 09/2023 heart ablation TONSILLECTOMY HX ALLERGIES Cantaloupe, Levaquin [Levofloxacin], and Sulfa (Sulfonamide Antibiotics) MEDICATIONS clopidogrel (PLAVIX) 75 mg tablet take 4 tablets by mouth on day 1 then 1 tablet by mouth once daily after ferrous sulfate 325 mg (65 mg iron) tablet Take 1 tablet by mouth two times a day with meals. budesonide (PULMICORT) 1 mg/2 mL nebulizer solution instill contents of 1 vial IN NASAL SALINE WASHES AND USE TWICE DAILY tiZANidine HCl (ZANAFLEX) 2 mg capsule Take 1 capsule by mouth three times a day as needed. citalopram (CELEXA) 40 mg tablet Take 1 tablet by mouth once daily. buPROPion XL (WELLBUTRIN XL) 150 mg 24 hr tablet Take 1 tablet by mouth once daily. triamcinolone acetonide (KENALOG) 0.1 % cream Apply to affected area two times a day. carvedilol (COREG) 25 mg tablet Take 12.5 mg by mouth two times a day with meals. Takes 12.5mg BID nitroglycerin sublingual (NITROSTAT) 0.4 mg SL tablet Dissolve 0.4 mg under the tongue every 5 minutes as needed for chest pain. losartan (COZAAR) 50 mg tablet Take 1 tablet by mouth once daily. metFORMIN ER (GLUCOPHAGE XR) 500 mg 24 hr tablet Take 2 tablets by mouth two times a day with meals. hydrOXYchloroQUINE (PLAQUENIL) 200 mg tablet Take 200 mg by mouth once daily. isosorbide mononitrate ER (IMDUR) 30 mg 24 hr tablet Take 30 mg by mouth every morning. lansoprazole (PREVACID) 30 mg capsule take 1 capsule by mouth once daily , 1/2 HOUR BEFORE BREAKFAST fluticasone (F (more content not included)...[facility] 05-28-2024 History of Present illness Narrative* Shahriar Brown APRN.[facility] - 05/28/2024 12:13 PM EST CC: Patient presents with: Recheck: Follow up HPI Cassia Holland is a 58 year old female who presents today for 2 week follow up post upper EGD for occult GI bleeding .Patient presented to the ER on 05/10/24 related to extreme fatigue and dizziness. Patient reports that most concerning symptoms prior to EGD such as the intense fatigue, dizziness and li ghtheadedness, dark stools, generalized weakness, hot with increased sweating, SOB with exertion, face puffiness, headaches, sinus pressure, ringing in ears, and bloody sinus drainage but was green with sinus rinse. are starting to resolve from continuous to intermittent with no reports of green with sinus rinse. Last visit prior to EGD. Most concerning symptoms were: Current symptoms: still with intense fatigue, dizziness and lightheadedness, dark stools, generalized weakness, hot with increased sweating, SOB with exertion, face puffiness, headaches, sinus pressure, ringing in ears, and bloody sinus drainage but was green with sinus rinse. Had EGD as planned and reports they found multiple gastric polyps and reported Cauterization and clamping of lesions and gastric polyps were removed States that symptoms have lessened in intensity and are intermittent now. No longer with dark stoolor green sinus drainage. Now has a Colonoscopy on July 30 of this year DIABETES MELLITUS: Ms. Holland denies excessive thirst or increased frequency of urination, chest pain or dyspnea , numbness, tingling or pain in extremities, new or unusual visual symptoms, low sugar/hypoglycemic reactions, weight loss/gain, lightheadedness/dizziness, and bowel changes/loose stools,denies positive DM symptoms Follows a diabetic diet some of the time. She is compliant with medication(s) and is tolerating med(s) without any side effects. She reports checking her glucose on a bloodglucose test strip a few times a month and when she feels she may be hypoglycemic.schedule with sugars in the <120 range. Patient's last HgA1C was Hemoglobin A1C (%) Date Value 12/18/2023 5.6 06/13/2023 6.4 05/05/2021 7.3 12/24/2020 9.1 Hemoglobin A1C (POCT) (%) Date Value 01/19/2022 7.2 10/13/2021 8.4 ) Denies secondary issues of DM REVIEW OF SYSTEMS General: no fevers, no [...] chest pressure, no palpitations, and no swelling Skin: Negative for lesions, rash, and itching PAST MEDICAL HISTORY Diagnosis Date Diabetes (HCC) adult onset Fibromyalgia Graves disease High blood pressure HSV-2 infection Interstitial lung disease (HCC) Lupus (HCC) Mixed connective tissue disease (HCC) Raynaud disease PAST SURGICAL HISTORY Procedure Laterality Date D AND C HYSTERECTOMY LAPAROSCOPY DIAGNOSTIC PAST SURGICAL HISTORY OF 7 sinus surgeries PAST SURGICAL HISTORY OF bilateral cataract surgeries PT ED HEART AND VASCULAR 12/2022 2 heart stents placed PT ED HEART AND VASCULAR 09/2023 heart ablation TONSILLECTOMY HX ALLERGIES Cantaloupe, Levaquin [Levofloxacin], and Sulfa (Sulfonamide Antibiotics) MEDICATIONS clopidogrel (PLAVIX) 75 mg tablet take 4 tablets by mouth on day 1 then 1 tablet by mouth once daily after ferrous sulfate 325 mg (65 mg iron) tablet Take 1 tablet by mouth two times a day with meals. budesonide (PULMICORT) 1 mg/2 mL nebulizer solution instill contents of 1 vial IN NASAL SALINE WASHES AND USE TWICE DAILY tiZANidine HCl (ZANAFLEX) 2 mg capsule Take 1 capsule by mouth three times a day as needed. citalopram (CELEXA) 40 mg tablet Take 1 tablet by mouth once daily. buPROPion XL (WELLBUTRIN XL) 150 mg 24 hr tablet Take 1 tablet by mouth once daily. triamcinolone acetonide (KENALOG) 0.1 % cream Apply to affected area two times a day. carvedilol (COREG) 25 mg tablet Take 12.5 mg by mouth two times a day with meals. Takes 12.5mg BID nitroglycerin sublingual (NITROSTAT) 0.4 mg SL tablet Dissolve 0.4 mg under the tongue every 5 minutes as needed for chest pain. losartan (COZAAR) 50 mg tablet Take 1 tablet by mouth once daily. metFORMIN ER (GLUCOPHAGE XR) 500 mg 24 hr tablet Take 2 tablets by mouth two times a day with meals. hydrOXYchloroQUINE (PLAQUENIL) 200 mg tablet Take 200 mg by mouth once daily. isosorbide mononitrate ER (IMDUR) 30 mg 24 hr tablet Take 30 mg by mouth every morning. lansoprazole (PREVACID) 30 mg capsule take 1 capsule by mouth once daily , 1/2 HOUR BEFORE BREAKFAST fluticasone (FLONASE) 50 mcg/actuation nasal spray instill 2 sprays into each nostril once daily benzonatate (TESSALON PERLES) 100 mg capsule Take 2 capsules by mouth three times a day as needed for cough. montelukast (SINGULAIR) 10 mg tablet take 1 tablet by mouth once daily apixaban (ELIQUIS) 5 mg tab(s) Take 5 mg by mouth two times a day. pravastatin sodium (PRAVASTATIN ORAL) Take by mouth. hydroCHLOROthiazide 25 mg tablet take 1 tablet by mouth once daily EPINEPHrine (EPIPEN) 0.3 mg/0.3 mL auto-injector Use per directed for severe allergic reaction lancets (Problemsolutions24 DELICA PLUS LANCET) 33 gauge Test blood sugar(s) 1 times daily. Dx: Type 2 DM - Controlled E11.9 Insulin: No blood sugar diagnostic (RetSKUUCH ULTRA TEST) test strip use 1 TEST STRIP to TEST BLOOD SUGAR once daily levalbuterol tartrate HFA (XOPENEX HFA) 45 mcg/actuation inhaler Inhale 1-2 Puffs as instructed every 4 hours as needed. Blood-Glucose Meter Dispense 1 kit FAMILY HISTORY Problem Relation Age of Onset Heart Mother stents Hypertension Mother other (pacemaker) Mother other (enlarged heart) Mother other (vertigo) Mother Arthritis Mother Prostate Cancer Father other (sjogrens) Sister No Known Problems Maternal Grandmother Heart Attack Maternal Grandfather No Known Problems Paternal Grandmother No Known Problems Paternal Grandfather Social History Tobacco Use Smoking status: Never Smokeless tobacco: Never Vaping Use Vaping status: Never Used Substance Use Topics Alcohol use: Not Currently Comment: Rare Drug use: Never PHYSICAL EXAM BP 138/78 Pulse 90 Resp 16 Wt 85.3 kg (188 lb) SpO2 99% BMI 34.11 kg/m General Appearance: well appearing, in no acute distress, alert Lungs: Lungs clear to auscultation. No wheezing, rhonchi, rales. Heart: RRR without murmur, gallop, or rubs. No ectopy DEL [employer] student Health maintenance reviewed with patient: Depression Screening Never done Anxiety Screening Never done BP Controlled (<130/80) Never done Pneumococcal Vaccine: 50+(1 of 2 - PCV) Never done Colorectal Cancer Screening due on 06/26/2023 DTaP,Tdap,Td Vaccine(1 - Tdap) due on 12/17/2024 Hepatitis B Vaccine(1 of 3 - 19+ 3-dose series) due on 12/17/2024 Shingrix Vaccine(1 of 2) due on 12/17/2024 HIV Screening due on 01/16/2025 Covid-19 Vaccine(3 - 2023- season) due on 01/16/2025 HbA1C due on 06/19/2024 Urine Albumin:Creatinine Ratio due on 12/17/2024 Diabetic Foot Exam due on 12/17/2024 Mammogram Screening due on 12/24/2024 Dilated Retinal Exam due on 01/07/2025 LDL Cholesterol due on 05/02/2025 Annual PCP Team Chronic Disease Visit due on 05/28/2025 Influenza Vaccine Completed Hepatitis C Screening Completed Cervical Cancer Screening Discontinued DATA REVIEWED: Most recent labs and imaging results. ASSESSMENT/PLAN: 1. Anemia, unspecified type - ICD9: 285.9, ICD10: D64.9 (primary diagnosis) Symptoms are improving. Last HGB was 8.1 a week ago. Will recheck - COMPLETE BLOOD COUNT AND DIFFERENTIAL - BASIC METABOLIC PANEL - HEMOGLOBIN A1C 2. Type 2 diabetes mellitus without complication, without long-term current use of insulin (HCC) - ICD9: 250.00, ICD10: E11.9 - Control undetermined, due for labs - Continue current medications - Blood glucose monitoring on a once daily schedule - Counseled on healthy diet and regular exercise - Discussed need for and benefit of weight loss. BMI 34.11 kg/(m^2) - HEMOGLOBIN A1C Prescription instructions reviewed with patient as applicable. Potential red flag symptoms discussed with the patient. Reviewed appropriate action plan to take if red flag symptoms occur. Patient agreeable to treatment plan. Shahriar Brown APRN.CNP [facility] Telephone encounter Note * Telephone Encounter - Ivett Barragan MA - 05/28/2024 11:38 AM EST Scan on 05/06/2024 2:29 PM by Provider, External, PA-C: Consultation - PT/OT/Speech Please see above FCE. Ivett Barragan MA [facility]01-22-2025 Miscellaneous Notes* Telephone Encounter - Ivett Barragan MA - 05/28/2024 11:38 AM EST Scan on 05/06/2024 2:29 PM by Provider, External, PAHannaC: Consultation - PT/OT/Speech Please see above FCE. Ivett Barragan MA documented in this encounter[facility] Evaluation note* Diagnosis Onset Date Resolution Status Admit Date Acute on chronic blood loss anemia inactive May 14 12:55pm Occult GI bleeding inactive 2024 12:55pm Elevated LFTs acute May 8:48am Gastric polyps acute May 212024 8:48am Anemia inactive May 21, 2024 8:48am Fatigue acute June 18, 2024 9:15am Fatty liver acute June 9:15am Anemia inactive June 18, 2024 9:15am Coronary artery disease chronic F ebruary 2024 9:37am Diabetes chronic June 30, 2024 9:37am Dyslipidemia chronic June 9:37am Essential hypertension chronic bru2024 9:37am Graves disease chronic June 082024 9:37am Interstitial lung disease chronic June 30, 2024 9:37am Paroxysmal atrial fibrillation chronic June 30, 9:37am Raynaud disease chronic June 30, 2024 9:37am [facility] Work Phone: [phone] 335-754401-08-2025 [facility]01-08-2025 NoteHNO ID: [id number] Author: SHAHRIAR BROWN APRN.[employer] Service: ? Author Type: Nurse Practitioner Type: Progress Notes Filed: 05/14/2024 10:05 Note Text: CC: Patient presents with: Recheck: 3 month follow up, recent ER follow up HPI Cassia Samuel Holland is a 58 year old female who presents today for ER follow-up. Facility: [facility] ER Date of visit: 05/10/24 Reason for visit: extreme fatigue and dizziness. Hospital course: CT of the brain and CXR showing no acute pathology of the brain but full report not available for review in appointment. Hgb of 6.4 with HCT of 21.4 - 1 unit of PRBC and is holding her plavix and Eliquis which she was on for paroxysmal a-fib and stent placement in 2022. Has an EGD with Dr. Daley later today with repeat blood work and possible transfusions. Will be admitted if transfusion is needed. Diagnosis: anemia Current symptoms: still with intense fatigue, dizziness and lightheadedness, dark stools, generalized weakness, hot with increased sweating, SOB with exertion, face puffiness, headaches, sinus pressure, ringing in ears, and bloody sinus drainage but was green with sinus rinse. Denies vomiting, abdominal pain, alicia blood in stool, syncope, palpitations, chest pain, and edema. REVIEW OF SYSTEMS See HPI PAST MEDICAL HISTORY Diagnosis Date Diabetes (HCC) adult onset Fibromyalgia Graves disease High blood pressure HSV-2 infection Interstitial lung disease (HCC) Lupus (HCC) Mixed connective tissue disease (HCC) Raynaud disease PAST SURGICAL HISTORY Procedure Laterality Date D AND C HYSTERECTOMY LAPAROSCOPY DIAGNOSTIC PAST SURGICAL HISTORY OF 7 sinus surgeries PAST SURGICAL HISTORY OF bilateral cataract surgeries PT ED HEART AND VASCULAR 12/2022 2 heart stents placed PT ED HEART AND VASCULAR 09/2023 heart ablation TONSILLECTOMY HX ALLERGIES Cantaloupe, Levaquin [Levofloxacin], and Sulfa (Sulfonamide Antibiotics) MEDICATIONS budesonide (PULMICORT) 1 mg/2 mL nebulizer solution instill contents of 1 vial IN NASAL SALINE WASHES AND USE TWICE DAILY tiZANidine HCl (ZANAFLEX) 2 mg capsule Take 1 capsule by mouth three times a day as needed. citalopram (CELEXA) 40 mg tablet Take 1 tablet by mouth once daily. buPROPion XL (WELLBUTRIN XL) 150 mg 24 hr tablet Take 1 tablet by mouth once daily. triamcinolone acetonide (KENALOG) 0.1 % cream Apply to affected area two times a day. carvedilol (COREG) 25 mg tablet Take 12.5 mg by mouth two times a day with meals. Takes 12.5mg BID nitroglycerin sublingual (NITROSTAT) 0.4 mg SL tablet Dissolve 0.4 mg under the tongue every 5 minutes as needed for chest pain. losartan (COZAAR) 50 mg tablet Take 1 tablet by mouth once daily. metFORMIN ER (GLUCOPHAGE XR) 500 mg 24 hr tablet Take 2 tablets by mouth two times a day with meals. ferrous sulfate 325 mg (65 mg iron) tablet Take 1 tablet by mouth two times a day with meals. hydrOXYchloroQUINE (PLAQUENIL) 200 mg tablet Take 200 mg by mouth once daily. isosorbide mononitrate ER (IMDUR) 30 mg 24 hr tablet Take 30 mg by mouth every morning. lansoprazole (PREVACID) 30 mg capsule take 1 capsule by mouth once daily , 1/2 HOUR BEFORE BREAKFAST fluticasone (FLONASE) 50 mcg/actuation nasal spray instill 2 sprays into each nostril once daily benzonatate (TESSALON PERLES) 100 mg capsule Take 2 capsules by mouth three times a day as needed for cough. montelukast (SINGULAIR) 10 mg tablet take 1 tablet by mouth once daily apixaban (ELIQUIS) 5 mg tab(s) Take 5 mg by mouth two times a day. pravastatin sodium (PRAVASTATIN ORAL) Take by mouth. clopidogrel (PLAVIX) 75 mg tablet take 4 tablets by mouth on day 1 then 1 tablet by mouth once daily after hydroCHLOROthiazide 25 mg tablet take 1 tablet by mouth once daily EPINEPHrine (EPIPEN) 0.3 mg/0.3 mL auto-injector Use per directed for severe allergic reaction lancets (tenXerTOUCH DELICA PLUS LANCET) 33 gauge Test blood sugar(s) 1 times daily. Dx: Type 2 DM - Controlled E11.9 Insulin: No blood sugar diagnostic (tenXerTOUCH ULTRA TEST) test strip use 1 TEST STRIP to TEST BLOOD SUGAR once daily levalbuterol tartrate HFA (XOPENEX HFA) 45 mcg/actuation inhaler Inhale 1-2 Puffs as instructed every 4 hours as needed. Blood-Glucose Meter Dispense 1 kit FAMILY HISTORY Problem Relation Age of Onset Heart Mother stents Hypertension Mother other (pacemaker) Mother other (enlarged heart) Mother other (vertigo) Mother Arthritis Mother Prostate Cancer Father other (sjogrens) Sister No Known Problems Maternal Grandmother Heart Attack Maternal Grandfather No Known Problems Paternal Grandmother No Known Problems Paternal Grandfather Social History Tobacco Use Smoking status: Never Smokeless tobacco: Never Vaping Use Vaping status: Never Used Substance Use Topics Alcohol use: Not Currently Comment: Rare Drug use: Never PHYSICAL EXAM BP 102/58 Pulse 84 Resp 16 (more content not included)...[facility]01[facility] History of Present illness Narrative* Shahriar Brown APRN.[employer] - 05/14/2024 9:33 AM EST CC: Patient presents with: Recheck: 3 month follow up, recent ER follow up HPI Cassia Holland is a 58 year old female who presents today for ER follow-up. Facility: [facility] ER Date of visit: 05/10/24 Reason for visit: extreme fatigue and dizziness. Hospital course: CT of the brain and CXR showing no acute pathology of the brain but full report not available for review in appointment. Hgb of 6.4 with HCT of 21.4 - 1 unit of PRBC and is holding her plavix and Eliquis which she was on for paroxysmal a-fib and stent placement in 2022. Has an EGD with Dr. Daley later today with repeat blood work and possible transfusions. Will be admitted if transfusion is needed. Diagnosis: anemia Current symptoms: still with intense fatigue, dizziness and lightheadedness, dark stools, generalized weakness, hot with increased sweating, SOB with exertion, face puffiness, headaches, sinus pressure, ringing in ears, and bloody sinus drainage but was green with sinus rinse. Denies vomiting, abdominal pain, alicia blood in stool, syncope, palpitations, chest pain, and edema. REVIEW OF SYSTEMS See HPI PAST MEDICAL HISTORY Diagnosis Date Diabetes (HCC) adult onset Fibromyalgia Graves disease High blood pressure HSV-2 infection Interstitial lung disease (HCC) Lupus (HCC) Mixed connective tissue disease (HCC) Raynaud disease PAST SURGICAL HISTORY Procedure Laterality Date D AND C HYSTERECTOMY LAPAROSCOPY DIAGNOSTIC PAST SURGICAL HISTORY OF 7 sinus surgeries PAST SURGICAL HISTORY OF bilateral cataract surgeries PT ED HEART AND VASCULAR 12/2022 2 heart stents placed PT ED HEART AND VASCULAR 09/2023 heart ablation TONSILLECTOMY HX ALLERGIES Cantaloupe, Levaquin [Levofloxacin], and Sulfa (Sulfonamide Antibiotics) MEDICATIONS budesonide (PULMICORT) 1 mg/2 mL nebulizer solution instill contents of 1 vial IN NASAL SALINE WASHES AND USE TWICE DAILY tiZANidine HCl (ZANAFLEX) 2 mg capsule Take 1 capsule by mouth three times a day as needed. citalopram (CELEXA) 40 mg tablet Take 1 tablet by mouth once daily. buPROPion XL (WELLBUTRIN XL) 150 mg 24 hr tablet Take 1 tablet by mouth once daily. triamcinolone acetonide (KENALOG) 0.1 % cream Apply to affected area two times a day. carvedilol (COREG) 25 mg tablet Take 12.5 mg by mouth two times a day with meals. Takes 12.5mg BID nitroglycerin sublingual (NITROSTAT) 0.4 mg SL tablet Dissolve 0.4 mg under the tongue every 5 minutes as needed for chest pain. losartan (COZAAR) 50 mg tablet Take 1 tablet by mouth once daily. metFORMIN ER (GLUCOPHAGE XR) 500 mg 24 hr tablet Take 2 tablets by mouth two times a day with meals. ferrous sulfate 325 mg (65 mg iron) tablet Take 1 tablet by mouth two times a day with meals. hydrOXYchloroQUINE (PLAQUENIL) 200 mg tablet Take 200 mg by mouth once daily. isosorbide mononitrate ER (IMDUR) 30 mg 24 hr tablet Take 30 mg by mouth every morning. lansoprazole (PREVACID) 30 mg capsule take 1 capsule by mouth once daily , 1/2 HOUR BEFORE BREAKFAST fluticasone (FLONASE) 50 mcg/actuation nasal spray instill 2 sprays into each nostril once daily benzonatate (TESSALON PERLES) 100 mg capsule Take 2 capsules by mouth three times a day as needed for cough. montelukast (SINGULAIR) 10 mg tablet take 1 tablet by mouth once daily apixaban (ELIQUIS) 5 mg tab(s) Take 5 mg by mouth two times a day. pravastatin sodium (PRAVASTATIN ORAL) Take by mouth. clopidogrel (PLAVIX) 75 mg tablet take 4 tablets by mouth on day 1 then 1 tablet by mouth once daily after hydroCHLOROthiazide 25 mg tablet take 1 tablet by mouth once daily EPINEPHrine (EPIPEN) 0.3 mg/0.3 mL auto-injector Use per directed for severe allergic reaction lancets (tenXerTOUCH DELICA PLUS LANCET) 33 gauge Test blood sugar(s) 1 times daily. Dx: Type 2 DM - Controlled E11.9 Insulin: No blood sugar diagnostic (ONETOUCH ULTRA TEST) test strip use 1 TEST STRIP to TEST BLOOD SUGAR once daily levalbuterol tartrate HFA (XOPENEX HFA) 45 mcg/actuation inhaler Inhale 1-2 Puffs as instructed every 4 hours as needed. Blood-Glucose Meter Dispense 1 kit FAMILY HISTORY Problem Relation Age of Onset Heart Mother stents Hypertension Mother other (pacemaker) Mother other (enlarged heart) Mother other (vertigo) Mother Arthritis Mother Prostate Cancer Father other (sjogrens) Sister No Known Problems Maternal Grandmother Heart Attack Maternal Grandfather No Known Problems Paternal Grandmother No Known Problems Paternal Grandfather Social History Tobacco Use Smoking status: Never Smokeless tobacco: Never Vaping Use Vaping status: Never Used Substance Use Topics Alcohol use: Not Currently Comment: Rare Drug use: Never PHYSICAL EXAM BP 102/58 Pulse 84 Resp 16 Wt 85.3 kg (188 lb) SpO2 98% BMI 34.11 kg/m General Appearance: well appearing, in no acute distress, alert Skin: pale in color Eyes: PERRLA, EOM's intact, sclera white, non-injected, conjunctiva pale Lungs: Lungs clear to auscultation. No wheezing, rhonchi, rales. Heart: RRR without murmur, gallop, or rubs. No ectopy Abdomen: Abdomen soft, non-tender. Bowel sounds normal. No masses, organomegaly Depression Screening Never done Anxiety Screening Never done Pneumococcal Vaccine: 50+(1 of 2 - PCV) Never done Colorectal Cancer Screening due on 06/26/2023 DTaP,Tdap,Td Vaccine(1 - Tdap) due on 12/17/2024 Hepatitis B Vaccine(1 of 3 - 19+ 3-dose series) due on 12/17/2024 Shingrix Vaccine(1 of 2) due on 12/17/2024 HIV Screening due on 01/16/2025 Covid-19 Vaccine(2023- season) due on 01/16/2025 HbA1C due on 06/19/2024 Urine Albumin:Creatinine Ratio due on 12/17/2024 Diabetic Foot Exam due on 12/17/2024 Mammogram Screening due on 12/24/2024 Dilated Retinal Exam due on 01/07/2025 LDL Cholesterol due on 05/02/2025 Annual PCP Team Chronic Disease Visit due on 05/14/2025 BP Controlled (<130/80) due on 05/14/2025 Influenza Vaccine Completed Hepatitis C Screening Completed Cervical Cancer Screening Discontinued DATA REVIEWED: Outside chart from [facility] reviewed. ASSESSMENT/PLAN: 1. Anemia, unspecified type - ICD9: 285.9, ICD10: D64.9 Obviously pale in office, and BP low side of normal. Symptomatic with fatigue dizziness and SOB on exertion. Has EGD scheduled in a few hours with Dr. Daley with plans of transfusion and admission if needed. Keep appointment as scheduled and go to ER for any increase in symptoms or any other concerns that occur prior to appointment - has appointment with f/u with Dr. Daley next week so will have her follow up in office in 2 weeks or earlier if f/u with dr daley is canceled. Prescription instructions reviewed with patient as applicable. Potential red flag symptoms discussed with the patient. Reviewed appropriate action plan to take if red flag symptoms occur. Patient agreeable to treatment plan. Shahriar Brown APRN.CNP documented in this encounter[facility] Telephone encounter Note * Telephone Encounter - Luz Cordoba APRN.CNP - 05/13/2024 7:31 AM EST Discuss if this should be continued at appointment with Shahriar tomorrow Luz Cordoba APRN.CNP [facility]01-07-2025 Miscellaneous Notes* Telephone Encounter - Luz Cordoba APRN.CNP - 05/13/2024 7:31 AM EST Discuss if this should be continued at appointment with Shahriar tomorrow Luz Cordoba APRN.CNP * Telephone Encounter - Diamond Vaughn LPN - 05/12/2024 7:49 PM EST Patient has been identified by name and date of : Yes Patient phones for refill(s): Requested Prescriptions Pending Prescriptions Disp Refills ferrous sulfate 325 mg (65 mg iron) tablet 60 tablet 1 Sig: Take 1 tablet by mouth two times a day with meals. Date of last office visit in primary care: 03/28/2024 Date of next office visit in primary care: 05/14/2024 Please advise. Thank you. Diamond Vaughn LPN. documented in this encounterSelect [facility]25 Telephone encounter Note * Telephone Encounter - Diamond Vaughn LPN - 05/12/2024 7:49 PM EST Patient has been identified by name and date of : Yes Patient phones for refill(s): Requested Prescriptions Pending Prescriptions Disp Refills ferrous sulfate 325 mg (65 mg iron) tablet 60 tablet 1 Sig: Take 1 tablet by mouth two times a day with meals. Date of last office visit in primary care: 03/28/2024 Date of next office visit in primary care: 05/14/2024 Please advise. Thank you. Diamond Vaughn LPN. [facility]12-24-[facility]24 NotePatient Outreach (KAYCEEMMN) CASSIA HOLLAND ([id number]) 1965 F Date Time Provider Department 04/29/24 OPAL MATHEWS During your visit today, we recorded the following information about you: Allergies As of Date: 04/29/2024 Noted Allergy Reaction CANTALOUPE 01/22/2019 18 - Angioedema LEVAQUIN (LEVOFLOXACIN) 04/12/2021 2 - Rash SULFA (SULFONAMIDE ANTIBIOTICS) 01/22/2019 4 - Hives Date Reviewed: 03/28/2024 Reviewed by: Julieta Campuzano MA - Fully Assessed Visit Diagnosis:Diabetes (HCC) [E11.9] Order(s):LIPID PANEL BASIC [SQLIPB] Order #: [id number] FUTURE Prescriptions as of 05/02/2024 - budesonide (PULMICORT) 1 mg/2 mL nebulizer solution instill contents of 1 vial IN NASAL SALINE WASHES AND USE TWICE DAILY - tiZANidine HCl (ZANAFLEX) 2 mg capsule Take 1 capsule by mouth three times a day as needed. - citalopram (CELEXA) 40 mg tablet Take 1 tablet by mouth once daily. - buPROPion XL (WELLBUTRIN XL) 150 mg 24 hr tablet Take 1 tablet by mouth once daily. - triamcinolone acetonide (KENALOG) 0.1 % cream Apply to affected area two times a day. - carvedilol (COREG) 25 mg tablet Take 12.5 mg by mouth two times a day with meals. Takes 12.5mg BID - nitroglycerin sublingual (NITROSTAT) 0.4 mg SL tablet Dissolve 0.4 mg under the tongue every 5 minutes as needed for chest pain. - losartan (COZAAR) 50 mg tablet Take 1 tablet by mouth once daily. - metFORMIN ER (GLUCOPHAGE XR) 500 mg 24 hr tablet Take 2 tablets by mouth two times a day with meals. - ferrous sulfate 325 mg (65 mg iron) tablet Take 1 tablet by mouth two times a day with meals. - hydrOXYchloroQUINE (PLAQUENIL) 200 mg tablet Take 200 mg by mouth once daily. - isosorbide mononitrate ER (IMDUR) 30 mg 24 hr tablet Take 30 mg by mouth every morning. - lansoprazole (PREVACID) 30 mg capsule take 1 capsule by mouth once daily , 1/2 HOUR BEFORE BREAKFAST - fluticasone (FLONASE) 50 mcg/actuation nasal spray instill 2 sprays into each nostril once daily - benzonatate (TESSALON PERLES) 100 mg capsule Take 2 capsules by mouth three times a day as needed for cough. - montelukast (SINGULAIR) 10 mg tablet take 1 tablet by mouth once daily - apixaban (ELIQUIS) 5 mg tab(s) Take 5 mg by mouth two times a day. - pravastatin sodium (PRAVASTATIN ORAL) Take by mouth. - clopidogrel (PLAVIX) 75 mg tablet take 4 tablets by mouth on day 1 then 1 tablet by mouth once daily after - hydroCHLOROthiazide 25 mg tablet take 1 tablet by mouth once daily - EPINEPHrine (EPIPEN) 0.3 mg/0.3 mL auto-injector Use per directed for severe allergic reaction - lancets (tenXerTOUCH DELICA PLUS LANCET) 33 gauge Test blood sugar(s) 1 times daily. Dx: Type 2 DM - Controlled E11.9 Insulin: No - blood sugar diagnostic (tenXerTOUCH ULTRA TEST) test strip use 1 TEST STRIP to TEST BLOOD SUGAR once daily - levalbuterol tartrate HFA (XOPENEX HFA) 45 mcg/actuation inhaler Inhale 1-2 Puffs as instructed every 4 hours as needed. - Blood-Glucose Meter Dispense 1 kit Problem List As Of Date 04/29/2024 Noted Resolved Diabetes (HCC) [E11.9] Hypertension [I10] Other forms of systemic lupus erythematosus (HC* Graves disease [E05.00] Raynaud disease [I73.00] Mixed connective tissue disease (HCC) [M35.1] Interstitial lung disease (HCC) [J84.9] Fibromyalgia [M79.7] Cervicalgia [M54.2] 04/07/2021 Encounter Status:Closed by adsquareMILY on 05/02/24[facility] 04-25-2024 Telephone encounter Note* Telephone Encounter - Deepti Hedrick LPN - 04/25/2024 2:59 PM EST Prescription Refill Information The patient has been identified by name and date of : Yes Caregiver verified no other encounters exist for this prescription request: Yes Caregiver confirmed with patient/requestor that no other refills are due, in the near future, with this provider at this time: Yes The last office visit in the department: 03/28/24 Does the patient have a future office visit with this provider/department: Yes 05/14/24 Requested Prescriptions Pending Prescriptions Disp Refills budesonide (PULMICORT) 1 mg/2 mL nebulizer solution 120 mL 2 Sig: instill contents of 1 vial IN NASAL SALINE WASHES AND USE TWICE DAILY Deepti Hedrick LPN April 25, 2024 2:59 PM [facility]12-20-2024 Miscellaneous Notes* Telephone Encounter - Deepti Hedrick LPN - 04/25/2024 2:59 PM EST Prescription Refill Information The patient has been identified by name and date of : Yes Caregiver verified no other encounters exist for this prescription request: Yes Caregiver confirmed with patient/requestor that no other refills are due, in the near future, with this provider at this time: Yes The last office visit in the department: 03/28/24 Does the patient have a future office visit with this provider/department: Yes 05/14/24 Requested Prescriptions Pending Prescriptions Disp Refills budesonide (PULMICORT) 1 mg/2 mL nebulizer solution 120 mL 2 Sig: instill contents of 1 vial IN NASAL SALINE WASHES AND USE TWICE DAILY Deepti Hedrick LPN April 25, 2024 2:59 PM documented in this encounterSelect [facility]12-16-2024 Telephone encounter Note * Telephone Encounter - Marvel Rice RN - 04/21/2024 3:24 PM EST Patient returns call and reports that testing can be completed at [place] and requests order befaxed. Faxed to [phone] per request. Marvel Rice RN [facility]12-16-2024 Miscellaneous Notes* Telephone Encounter - Marvel Rice RN - 04/21/2024 3:24 PM EST Patient returns call and reports that testing can be completed at [facility] and requests order befaxed. Faxed to [phone] per request. Marvel Rice RN * Telephone Encounter - Myrtle Ramirez - 04/21/2024 3:07 PM EST Called patient to schedule test appt only location performing this test is [facility],patient stated that she would check with [facility] if this is something that she could have done there if so she will call back to have us fax order. * Telephone Encounter - Lissette Newton - 04/18/2024 9:12 AM EST 1st attempt to call patient to schedule test. LVM. * Telephone Encounter - Julieta Campuzano MA - 04/16/2024 2:14 PM EST Patient notified, please assist in scheduling. * Telephone Encounter - Shahriar Brown APRN.CNP - 04/16/2024 11:06 AM EST Forms for work reviewed but they are requesting detailed info like how much she can lift. This needs completed by functional capacity testing. Order placed. Thank you Shahriar Brown APRN.CNP documented in this encounterSelect [facility]12-16-2024 Telephone encounter Note * Telephone Encounter - Myrtle Ramirez - 04/21/2024 3:07 PM EST Called patient to schedule test appt only location performing this test is [facility],patient stated that she would check with [facility] if this is something that she could have done there if so she will call back to have us fax order. [facility]12-13-2024 Telephone encounter Note* Telephone Encounter - Lissette Newton - 04/18/2024 9:12 AM EST 1st attempt to call patient to schedule test. LVM. [facility]12-11-2024 Telephone encounter Note* Telephone Encounter - Julieta Campuzano MA - 04/16/2024 2:14 PM EST Patient notified, please assist in scheduling. [facility]12-11-2024 Telephone encounter Note* Telephone Encounter - Shahriar Brown APRN.CNP - 04/16/2024 11:06 AM EST Forms for work reviewed but they are requesting detailed info like how much she can lift. This needs completed by functional capacity testing. Order placed. Thank you Shahriar Brown APRN.CNP [facility]12-10-2024 Evaluation note* Diagnosis Onset Date Resolution Status Admit Date Coronary artery disease chronic D ecember 2023 11:11am Dyslipidemia chronic April 11:11am Essential hypertension chronic De cem2023 11:11am Paroxysmal atrial fibrillation chronic April 15 11:11am Acute on chronic blood loss anemia inactive May 14 12:55pm Occult GI bleeding inactive 2024 12:55pm Elevated LFTs acute May 8:48am Gastric polyps acute May 212024 8:48am Anemia inactive May 21, 2024 8:48am Fatigue acute June 18, 2024 9:15am Fatty liver acute June 9:15am Anemia inactive June 18, 2024 9:15am Coronary artery disease chronic F ebruary 2024 9:37am Diabetes chronic June 30, 2024 9:37am Dyslipidemia chronic June 9:37am Essential hypertension chronic Fe bruary 2024 9:37am Graves disease chronic June 082024 9:37am Interstitial lung disease chronic June 30, 2024 9:37am Paroxysmal atrial fibrillation chronic June 30, 2 025 9:37am Raynaud disease chronic June 30, 2024 9:37am [facility] Work Phone: 1(977) 288-920411-22-2024 NoteHNO ID: [id number] Author: SHAHRIAR BROWN APRN.[employer]PER[employer]OR Service: ? Author Type: Nurse Practitioner Type: Progress Notes Filed: 03/28/2024 13:33 Note Text: CC: Patient presents with: Back Pain: Back pain mid to low back pain HPI Cassia Holland is a 58 year old female who presents today for back pain. Has had lower back pain since her 20s after falling down steps but has been worse for the last few weeks without cause. Pain is now mid to low back and is described as achy. If she lays flat and allows legs to hang over side of bed it relieves the pain. Sitting on the toilet worsens the pain. Not using the bathroom but she thinks it is how she is sitting. Takes tylenol which does help decrease the pain. Pain does not radiate elsewhere outside of being mid to low back. Currently on cefdinir for ongoing sinus infection. Denies any falls, weakness, numbness, saddle anesthesia, loss of bowel/bladder control, difficulty/pain urinating, fever, or abdominal pain. HTN: Blood pressure has been elevated at home as high as the 180s systolic. Has a call with her tin pourer this afternoon to further work on this. Denies chest pain, shortness of breath, edema, or palpitations at this time. Has had a headache but unsure if due to BP or ongoing sinus infection REVIEW OF SYSTEMS See HPI PAST MEDICAL HISTORY Diagnosis Date Diabetes (HCC) adult onset Fibromyalgia Graves disease High blood pressure HSV-2 infection Interstitial lung disease (HCC) Lupus (HCC) Mixed connective tissue disease (HCC) Raynaud disease PAST SURGICAL HISTORY Procedure Laterality Date D AND C HYSTERECTOMY LAPAROSCOPY DIAGNOSTIC PAST SURGICAL HISTORY OF 7 sinus surgeries PAST SURGICAL HISTORY OF bilateral cataract surgeries PT [facility] 12/2022 2 heart stents placed PT [facility] VASCULAR 09/2023 heart ablation TONSILLECTOMY HX ALLERGIES Cantaloupe, Levaquin [Levofloxacin], and Sulfa (Sulfonamide Antibiotics) MEDICATIONS citalopram (CELEXA) 40 mg tablet Take 1 tablet by mouth once daily. buPROPion XL (WELLBUTRIN XL) 150 mg 24 hr tablet Take 1 tablet by mouth once daily. triamcinolone acetonide (KENALOG) 0.1 % cream Apply to affected area two times a day. carvedilol (COREG) 25 mg tablet Take 12.5 mg by mouth two times a day with meals. Takes 12.5mg BID nitroglycerin sublingual (NITROSTAT) 0.4 mg SL tablet Dissolve 0.4 mg under the tongue every 5 minutes as needed for chest pain. losartan (COZAAR) 50 mg tablet Take 1 tablet by mouth once daily. metFORMIN ER (GLUCOPHAGE XR) 500 mg 24 hr tablet Take 2 tablets by mouth two times a day with meals. ferrous sulfate 325 mg (65 mg iron) tablet Take 1 tablet by mouth two times a day with meals. hydrOXYchloroQUINE (PLAQUENIL) 200 mg tablet Take 200 mg by mouth once daily. isosorbide mononitrate ER (IMDUR) 30 mg 24 hr tablet Take 30 mg by mouth every morning. lansoprazole (PREVACID) 30 mg capsule take 1 capsule by mouth once daily , 1/2 HOUR BEFORE BREAKFAST fluticasone (FLONASE) 50 mcg/actuation nasal spray instill 2 sprays into each nostril once daily budesonide (PULMICORT) 1 mg/2 mL nebulizer solution instill contents of 1 vial IN NASAL SALINE WASHES AND USE TWICE DAILY benzonatate (TESSALON PERLES) 100 mg capsule Take 2 capsules by mouth three times a day as needed for cough. montelukast (SINGULAIR) 10 mg tablet take 1 tablet by mouth once daily apixaban (ELIQUIS) 5 mg tab(s) Take 5 mg by mouth two times a day. pravastatin sodium (PRAVASTATIN ORAL) Take by mouth. clopidogrel (PLAVIX) 75 mg tablet take 4 tablets by mouth on day 1 then 1 tablet by mouth once daily after hydroCHLOROthiazide 25 mg tablet take 1 tablet by mouth once daily EPINEPHrine (EPIPEN) 0.3 mg/0.3 mL auto-injector Use per directed for severe allergic reaction lancets (RetSKUUCH DELICA PLUS LANCET) 33 gauge Test blood sugar(s) 1 times daily. Dx: Type 2 DM - Controlled E11.9 Insulin: No blood sugar diagnostic (RetSKUUCH ULTRA TEST) test strip use 1 TEST STRIP to TEST BLOOD SUGAR once daily levalbuterol tartrate HFA (XOPENEX HFA) 45 mcg/actuation inhaler Inhale 1-2 Puffs as instructed every 4 hours as needed. Blood-Glucose Meter Dispense 1 kit FAMILY HISTORY Problem Relation Age of Onset Heart Mother stents Hypertension Mother other (pacemaker) Mother other (enlarged heart) Mother other (vertigo) Mother Arthritis Mother Prostate Cancer Father other (sjogrens) Sister No Known Problems Maternal Grandmother Heart Attack Maternal Grandfather No Known Problems Paternal Grandmother No Known Problems Paternal Grandfather Social History Tobacco Use Smoking status: Never Smokeless tobacco: Never Vaping Use Vaping status: Never Used Substance Use Topics Alcohol use: Not Currently Comment: Rare Drug use: Never PHYSICAL EXAM BP 162/80 Pulse 77 Temp 36.6 ?C (97.8 ?F) (Temporal) Resp 16 Wt 84.4 kg (186 lb) SpO2 99 (more content not included)...[facility] 03-28-2024 History of Present illness Narrative* Shahriar Brown APRN.[facility] - 03/28/2024 12:58 PM EST CC: Patient presents with: Back Pain: Back pain mid to low back pain HPI Cassia Holland is a 58 year old female who presents today for back pain. Has had lower back pain since her 20s after falling down steps but has been worse for the last few weeks without cause. Pain is now mid to low back and is described as achy. If she lays flat and allows legs to hang over side of bed it relieves the pain. Sitting on the toilet worsens the pain. Not using the bathroom but she thinks it is how she is sitting. Takes tylenol which does help decrease the pain. Pain does not radiate elsewhere outside of being mid to low back. Currently on cefdinir for ongoing sinus infection. Denies any falls, weakness, numbness, saddle anesthesia, loss of bowel/bladder control, difficulty/pain urinating, fever, or abdominal pain. HTN: Blood pressure has been elevated at home as high as the 180s systolic. Has a call with her tin pourer this afternoon to further work on this. Denies chest pain, shortness of breath, edema, or palpitations at this time. Has had a headache but unsure if due to BP or ongoing sinus infection REVIEW OF SYSTEMS See HPI PAST MEDICAL HISTORY Diagnosis Date Diabetes (HCC) adult onset Fibromyalgia Graves disease High blood pressure HSV-2 infection Interstitial lung disease (HCC) Lupus (HCC) Mixed connective tissue disease (HCC) Raynaud disease PAST SURGICAL HISTORY Procedure Laterality Date D AND C HYSTERECTOMY LAPAROSCOPY DIAGNOSTIC PAST SURGICAL HISTORY OF 7 sinus surgeries PAST SURGICAL HISTORY OF bilateral cataract surgeries PT ED HEART AND VASCULAR 12/2022 2 heart stents placed PT ED HEART AND VASCULAR 09/2023 heart ablation TONSILLECTOMY HX ALLERGIES Cantaloupe, Levaquin [Levofloxacin], and Sulfa (Sulfonamide Antibiotics) MEDICATIONS citalopram (CELEXA) 40 mg tablet Take 1 tablet by mouth once daily. buPROPion XL (WELLBUTRIN XL) 150 mg 24 hr tablet Take 1 tablet by mouth once daily. triamcinolone acetonide (KENALOG) 0.1 % cream Apply to affected area two times a day. carvedilol (COREG) 25 mg tablet Take 12.5 mg by mouth two times a day with meals. Takes 12.5mg BID nitroglycerin sublingual (NITROSTAT) 0.4 mg SL tablet Dissolve 0.4 mg under the tongue every 5 minutes as needed for chest pain. losartan (COZAAR) 50 mg tablet Take 1 tablet by mouth once daily. metFORMIN ER (GLUCOPHAGE XR) 500 mg 24 hr tablet Take 2 tablets by mouth two times a day with meals. ferrous sulfate 325 mg (65 mg iron) tablet Take 1 tablet by mouth two times a day with meals. hydrOXYchloroQUINE (PLAQUENIL) 200 mg tablet Take 200 mg by mouth once daily. isosorbide mononitrate ER (IMDUR) 30 mg 24 hr tablet Take 30 mg by mouth every morning. lansoprazole (PREVACID) 30 mg capsule take 1 capsule by mouth once daily , 1/2 HOUR BEFORE BREAKFAST fluticasone (FLONASE) 50 mcg/actuation nasal spray instill 2 sprays into each nostril once daily budesonide (PULMICORT) 1 mg/2 mL nebulizer solution instill contents of 1 vial IN NASAL SALINE WASHES AND USE TWICE DAILY benzonatate (TESSALON PERLES) 100 mg capsule Take 2 capsules by mouth three times a day as needed for cough. montelukast (SINGULAIR) 10 mg tablet take 1 tablet by mouth once daily apixaban (ELIQUIS) 5 mg tab(s) Take 5 mg by mouth two times a day. pravastatin sodium (PRAVASTATIN ORAL) Take by mouth. clopidogrel (PLAVIX) 75 mg tablet take 4 tablets by mouth on day 1 then 1 tablet by mouth once daily after hydroCHLOROthiazide 25 mg tablet take 1 tablet by mouth once daily EPINEPHrine (EPIPEN) 0.3 mg/0.3 mL auto-injector Use per directed for severe allergic reaction lancets (RetSKUUCH DELICA PLUS LANCET) 33 gauge Test blood sugar(s) 1 times daily. Dx: Type 2 DM - Controlled E11.9 Insulin: No blood sugar diagnostic (RetSKUUCH ULTRA TEST) test strip use 1 TEST STRIP to TEST BLOOD SUGAR once daily levalbuterol tartrate HFA (XOPENEX HFA) 45 mcg/actuation inhaler Inhale 1-2 Puffs as instructed every 4 hours as needed. Blood-Glucose Meter Dispense 1 kit FAMILY HISTORY Problem Relation Age of Onset Heart Mother stents Hypertension Mother other (pacemaker) Mother other (enlarged heart) Mother other (vertigo) Mother Arthritis Mother Prostate Cancer Father other (sjogrens) Sister No Known Problems Maternal Grandmother Heart Attack Maternal Grandfather No Known Problems Paternal Grandmother No Known Problems Paternal Grandfather Social History Tobacco Use Smoking status: Never Smokeless tobacco: Never Vaping Use Vaping status: Never Used Substance Use Topics Alcohol use: Not Currently Comment: Rare Drug use: Never PHYSICAL EXAM BP 162/80 Pulse 77 Temp 36.6 C (97.8 F) (Temporal) Resp 16 Wt 84.4 kg (186 lb) SpO2 99% BMI 33.75 kg/m General Appearance: well appearing, in no acute distress, alert Eyes: conjunctiva pink and moist, no icterus, sclera white, non-injected Back: No pain to palpation, Full and painless ROM including flexion, extension, lateral side bending and rotation, Reflexes 2+ and symmetric. Negative bilateral SLR in both sitting and supine position. Strength 5/5 to BLE and gait normal Lungs: Lungs clear to auscultation. No wheezing, rhonchi, rales. Heart: RRR without murmur, gallop, or rubs. No ectopy Abdomen: Abdomen soft, non-tender. Bowel sounds normal. No masses, organomegaly, Negative CVA tenderness Health maintenance reviewed with patient: Depression Screening Never done Anxiety Screening Never done Colorectal Cancer Screening due on 06/26/2023 DTaP,Tdap,Td Vaccine(1 - Tdap) due on 12/17/2024 Hepatitis B Vaccine(1 of 3 - 19+ 3-dose series) due on 12/17/2024 Shingrix Vaccine(1 of 2) due on 12/17/2024 Pneumococcal Vaccine(1 of 2 - PCV) due on 12/17/2024 HIV Screening due on 01/16/2025 Covid-19 Vaccine(3 - 2023- season) due on 01/16/2025 LDL Cholesterol due on 06/13/2024 HbA1C due on 06/19/2024 Urine Albumin:Creatinine Ratio due on 12/17/2024 Diabetic Foot Exam due on 12/17/2024 Mammogram Screening due on 12/24/2024 Dilated Retinal Exam due on 01/07/2025 Annual PCP Team Chronic Disease Visit due on 02/13/2025 BP Controlled (<130/80) due on 02/13/2025 Influenza Vaccine Completed Hepatitis C Screening Completed Cervical Cancer Screening Discontinued DATA REVIEWED: No new labs ASSESSMENT/PLAN: 1. Acute midline low back pain without sciatica - ICD9: 724.2, ICD10: M54.50 (primary diagnosis) Most likely musculoskeletal Exercises as discussed. - small amount of low dose tizanidine given as treatment options are limited for her. - UA DIP, URINE (POC) 2. Hypertension, unspecified type - ICD9: 401.9, ICD10: I10 - Uncontrolled Continue with plans to discuss with tin pourer today. If this does not occur for any reason, please call for possible med changes. - Recommend home blood pressure monitoring, to bring results to next visit - Encouraged sodium restriction, DASH or Mediterranean diet - Recommend regular aerobic exercise Prescription instructions reviewed with patient as applicable. Potential red flag symptoms discussed with the patient. Reviewed appropriate action plan to take if red flag symptoms occur. Patient agreeable to treatment plan. Shahriar Brown APRN.CNP documented in this encounterSelect [facility] Telephone encounter Note * Telephone Encounter - Christina Ray LPN - 03/19/2024 8:03 AM EST Pt notified there is a lab order to be completed. Pt reports she will try get in today and do this. Christina Ray LPN The patient has been identified by name and date of : Yes Caregiver verified no other encounters exist for this prescription request: Yes Caregiver confirmed with patient/requestor that no other refills are due, in the near future, with this provider at this time: Yes The last office visit in the department: 02/14/2024 Does the patient have a future office visit with this provider/department: Yes 05/14/2024 Requested Prescriptions Pending Prescriptions Disp Refills citalopram (CELEXA) 40 mg tablet 90 tablet 1 Sig: Take 1 tablet by mouth once daily. buPROPion XL (WELLBUTRIN XL) 150 mg 24 hr tablet 30 tablet 1 Sig: Take 1 tablet by mouth once daily. Christina Ray LPN March 19, 2024 8:12 AM [facility]11-13-2024 Miscellaneous Notes* Telephone Encounter - Christina Ray LPN - 03/19/2024 8:03 AM EST Pt notified there is a lab order to be completed. Pt reports she will try get in today and do this. Christina Ray LPN The patient has been identified by name and date of : Yes Caregiver verified no other encounters exist for this prescription request: Yes Caregiver confirmed with patient/requestor that no other refills are due, in the near future, with this provider at this time: Yes The last office visit in the department: 02/14/2024 Does the patient have a future office visit with this provider/department: Yes 05/14/2024 Requested Prescriptions Pending Prescriptions Disp Refills citalopram (CELEXA) 40 mg tablet 90 tablet 1 Sig: Take 1 tablet by mouth once daily. buPROPion XL (WELLBUTRIN XL) 150 mg 24 hr tablet 30 tablet 1 Sig: Take 1 tablet by mouth once daily. Christina Ray LPN March 19, 2024 8:12 AM documented [facility] Telephone encounter Note * Telephone Encounter - Julieta Campuzano MA - 02/20/2024 8:46 AM EDT Patient notified. [facility]24 Miscellaneous Notes* Telephone Encounter - Julieta Campuzano MA - 02/20/2024 8:46 AM EDT Patient notified. * Telephone Encounter - Shahriar Brown APRN.MOLD MAKING SUPERVISOR - 02/20/2024 8:23 AM EDT She has been varying in 9s to 10s over the past year. If no active bleeding or new/worsening concerns, we can recheck in 2-4 weeks. Thank you Shahriar Brown APRN.MOLD MAKING SUPERVISOR * Telephone Encounter - Opal Mathews MD - 02/19/2024 5:25 PM EDT Lab results are not emergent. Would route to Shahriar as I have not seen the patient recently [place], Opal Mathews MD * Telephone Encounter - Chloé Dhaliwal LPN - 02/19/2024 1:33 PM EDT Pt had labs ordered & drawn by [facility] on 02/14/24 & wanted to be sure Joylooked at them, specifically the HGB which was low at 9.2. Please review in Shahriar's absence. Chloé Dhaliwal LPN documented in this encounterSelect [facility] Telephone encounter Note * Telephone Encounter - Shahriar Brown APRN.CNP - 02/20/2024 8:23 AM EDT She has been varying in 9s to 10s over the past year. If no active bleeding or new/worsening concerns, we can recheck in 2-4 weeks. Thank you Shahriar Brown APRN.ANTHONY [facility]10-15-2024 Telephone encounter Note* Telephone Encounter - Opal Mathews MD - 02/19/2024 5:25 PM EDT Lab results are not emergent. Would route to Shahriar as I have not seen the patient recently Regards, Opal Mathews MD [facility]10-15-[facility]24 Telephone encounter Note* Telephone Encounter - Chloé Dhaliwal LPN - 02/19/2024 1:33 PM EDT Pt had labs ordered & drawn by [facility] on 02/14/24 & wanted to be sure Joylooked at them, specifically the HGB which was low at 9.2. Please review in Shahriar's absence. Chloé Dhaliwal LPN [facility]-10-2024 NoteHNO ID: [id number] Author: SHAHRIAR BROWN APRN.ANTHONY Service: ? Author Type: Nurse Practitioner Type: Progress Notes Filed: 02/14/2024 15:17 Note Text: CC: Patient presents with: Recheck: Follow up fatigue HPI Cassia Holland is a 58 year old female who presents today for follow up on chronic worsening fatigue. Blood work unremarkable. Working with rheumatology to improve Lupus. Started using her cpap nightly since last visit. Antihypertensives changed by cardiology due to low blood pressure and started on wellbutrin 6 weeks ago. Still with no improvement in fatigue. HTN and A-fib: Ms. Holland indicates that she is feeling well and denies any symptoms referable to elevated blood pressure. Specifically denies headache, chest pain, palpitations, change in chronic dyspnea, and peripheral edema. Patient denies any side effects of her medication(s) and is compliant with their regimen. She does check BP's away from this office with average BP's in the 90s-120s/40s-50s range. When blood pressure is low she is dizzy and lightheaded which has caused her to have to miss work. Last 3 Encounter BP Readings: Date: BP: 02/14/2024 112/68 01/21/2024 120/76 01/17/2024 132/80 Has tolerated wellbutrin since starting but has not noticed a difference in motivation or depression. Sleep: is described as normal Alcohol use: does not drink any alcohol Drug use: No Appetite: good Suicidal Thoughts: No suicidal ideation, intent or plan REVIEW OF SYSTEMS See HPI PAST MEDICAL HISTORY Diagnosis Date Diabetes (HCC) adult onset Fibromyalgia Graves disease High blood pressure HSV-2 infection Interstitial lung disease (HCC) Lupus (HCC) Mixed connective tissue disease (HCC) Raynaud disease PAST SURGICAL HISTORY Procedure Laterality Date D AND C HYSTERECTOMY LAPAROSCOPY DIAGNOSTIC PAST SURGICAL HISTORY OF 7 sinus surgeries PAST SURGICAL HISTORY OF bilateral cataract surgeries PT ED HEART AND VASCULAR 12/2022 2 heart stents placed PT ED HEART AND VASCULAR 09/2023 heart ablation TONSILLECTOMY HX ALLERGIES Cantaloupe, Levaquin [Levofloxacin], and Sulfa (Sulfonamide Antibiotics) MEDICATIONS carvedilol (COREG) 25 mg tablet Take 12.5 mg by mouth two times a day with meals. Takes 12.5mg BID losartan (COZAAR) 50 mg tablet Take 1 tablet by mouth once daily. citalopram (CELEXA) 40 mg tablet Take 1 tablet by mouth once daily. isosorbide mononitrate ER (IMDUR) 30 mg 24 hr tablet Take 30 mg by mouth every morning. apixaban (ELIQUIS) 5 mg tab(s) Take 5 mg by mouth two times a day. pravastatin sodium (PRAVASTATIN ORAL) Take by mouth. clopidogrel (PLAVIX) 75 mg tablet take 4 tablets by mouth on day 1 then 1 tablet by mouth once daily after hydroCHLOROthiazide 25 mg tablet take 1 tablet by mouth once daily triamcinolone acetonide (KENALOG) 0.1 % cream Apply to affected area two times a day. nitroglycerin sublingual (NITROSTAT) 0.4 mg SL tablet Dissolve 0.4 mg under the tongue every 5 minutes as needed for chest pain. metFORMIN ER (GLUCOPHAGE XR) 500 mg 24 hr tablet Take 2 tablets by mouth two times a day with meals. buPROPion XL (WELLBUTRIN XL) 150 mg 24 hr tablet Take 1 tablet by mouth once daily. ferrous sulfate 325 mg (65 mg iron) tablet Take 1 tablet by mouth two times a day with meals. hydrOXYchloroQUINE (PLAQUENIL) 200 mg tablet Take 200 mg by mouth once daily. lansoprazole (PREVACID) 30 mg capsule take 1 capsule by mouth once daily , 1/2 HOUR BEFORE BREAKFAST fluticasone (FLONASE) 50 mcg/actuation nasal spray instill 2 sprays into each nostril once daily budesonide (PULMICORT) 1 mg/2 mL nebulizer solution instill contents of 1 vial IN NASAL SALINE WASHES AND USE TWICE DAILY benzonatate (TESSALON PERLES) 100 mg capsule Take 2 capsules by mouth three times a day as needed for cough. montelukast (SINGULAIR) 10 mg tablet take 1 tablet by mouth once daily EPINEPHrine (EPIPEN) 0.3 mg/0.3 mL auto-injector Use per directed for severe allergic reaction lancets (tenXerTOUCH DELICA PLUS LANCET) 33 gauge Test blood sugar(s) 1 times daily. Dx: Type 2 DM - Controlled E11.9 Insulin: No blood sugar diagnostic (ONETOUCH ULTRA TEST) test strip use 1 TEST STRIP to TEST BLOOD SUGAR once daily levalbuterol tartrate HFA (XOPENEX HFA) 45 mcg/actuation inhaler Inhale 1-2 Puffs as instructed every 4 hours as needed. Blood-Glucose Meter Dispense 1 kit FAMILY HISTORY Problem Relation Age of Onset Heart Mother stents Hypertension Mother other (pacemaker) Mother other (enlarged heart) Mother other (vertigo) Mother Arthritis Mother Prostate Cancer Father other (sjogrens) Sister No Known Problems Maternal Grandmother Heart Attack Maternal Grandfather No Known Problems Paternal Grandmother No Known Problems Paternal Grandfather Social History Tobacco Use Smoking status: Never Smokeless tobacco: Never Vaping Use Vaping status: Never Used Substance U (more content not included)...[facility]10-10-2024 History of Present illness Narrative* Older, ShahriarBOOKER.MOLD MAKING SUPERVISOR - 02/14/2024 2:29 PM EDT CC: Patient presents with: Recheck: Follow up fatigue HPI Cassia Holland is a 58 year old female who presents today for follow up on chronic worsening fatigue. Blood work unremarkable. Working with rheumatology to improve Lupus. Started using her cpap nightlysince last visit. Antihypertensives changed by cardiology due to low blood pressure and started on wellbutrin 6 weeks ago. Still with no improvement in fatigue. HTN and A-fib: Ms. Holland indicates that she is feeling well and denies any symptoms referable to elevated blood pressure. Specifically denies headache, chest pain, palpitations, change in chronic dyspnea, and peripheral edema. Patient denies any side effects of her medication(s) and is compliant with their regimen. She does check BP's away from this office with average BP's in the 90s-120s/40s-50s range. When blood pressure is low she is dizzy and lightheaded which has caused her to have to miss work. Last 3 Encounter BP Readings: Date: BP: 02/14/2024 112/68 01/21/2024 120/76 01/17/2024 132/80 Has tolerated wellbutrin since starting but has not noticed a difference in motivation or depression. Sleep: is described as normal Alcohol use: does not drink any alcohol Drug use: No Appetite: good Suicidal Thoughts: No suicidal ideation, intent or plan REVIEW OF SYSTEMS See HPI PAST MEDICAL HISTORY Diagnosis Date Diabetes (HCC) adult onset Fibromyalgia Graves disease High blood pressure HSV-2 infection Interstitial lung disease (HCC) Lupus (HCC) Mixed connective tissue disease (HCC) Raynaud disease PAST SURGICAL HISTORY Procedure Laterality Date D AND C HYSTERECTOMY LAPAROSCOPY DIAGNOSTIC PAST SURGICAL HISTORY OF 7 sinus surgeries PAST SURGICAL HISTORY OF bilateral cataract surgeries PT ED HEART AND VASCULAR 12/2022 2 heart stents placed PT ED HEART AND VASCULAR 09/2023 heart ablation TONSILLECTOMY HX ALLERGIES Cantaloupe, Levaquin [Levofloxacin], and Sulfa (Sulfonamide Antibiotics) MEDICATIONS carvedilol (COREG) 25 mg tablet Take 12.5 mg by mouth two times a day with meals. Takes 12.5mg BID losartan (COZAAR) 50 mg tablet Take 1 tablet by mouth once daily. citalopram (CELEXA) 40 mg tablet Take 1 tablet by mouth once daily. isosorbide mononitrate ER (IMDUR) 30 mg 24 hr tablet Take 30 mg by mouth every morning. apixaban (ELIQUIS) 5 mg tab(s) Take 5 mg by mouth two times a day. pravastatin sodium (PRAVASTATIN ORAL) Take by mouth. clopidogrel (PLAVIX) 75 mg tablet take 4 tablets by mouth on day 1 then 1 tablet by mouth once daily after hydroCHLOROthiazide 25 mg tablet take 1 tablet by mouth once daily triamcinolone acetonide (KENALOG) 0.1 % cream Apply to affected area two times a day. nitroglycerin sublingual (NITROSTAT) 0.4 mg SL tablet Dissolve 0.4 mg under the tongue every 5 minutes as needed for chest pain. metFORMIN ER (GLUCOPHAGE XR) 500 mg 24 hr tablet Take 2 tablets by mouth two times a day with meals. buPROPion XL (WELLBUTRIN XL) 150 mg 24 hr tablet Take 1 tablet by mouth once daily. ferrous sulfate 325 mg (65 mg iron) tablet Take 1 tablet by mouth two times a day with meals. hydrOXYchloroQUINE (PLAQUENIL) 200 mg tablet Take 200 mg by mouth once daily. lansoprazole (PREVACID) 30 mg capsule take 1 capsule by mouth once daily , 1/2 HOUR BEFORE BREAKFAST fluticasone (FLONASE) 50 mcg/actuation nasal spray instill 2 sprays into each nostril once daily budesonide (PULMICORT) 1 mg/2 mL nebulizer solution instill contents of 1 vial IN NASAL SALINE WASHES AND USE TWICE DAILY benzonatate (TESSALON PERLES) 100 mg capsule Take 2 capsules by mouth three times a day as needed for cough. montelukast (SINGULAIR) 10 mg tablet take 1 tablet by mouth once daily EPINEPHrine (EPIPEN) 0.3 mg/0.3 mL auto-injector Use per directed for severe allergic reaction lancets (RetSKUUCH DELICA PLUS LANCET) 33 gauge Test blood sugar(s) 1 times daily. Dx: Type 2 DM - Controlled E11.9 Insulin: No blood sugar diagnostic (RetSKUUCH ULTRA TEST) test strip use 1 TEST STRIP to TEST BLOOD SUGAR once daily levalbuterol tartrate HFA (XOPENEX HFA) 45 mcg/actuation inhaler Inhale 1-2 Puffs as instructed every 4 hours as needed. Blood-Glucose Meter Dispense 1 kit FAMILY HISTORY Problem Relation Age of Onset Heart Mother stents Hypertension Mother other (pacemaker) Mother other (enlarged heart) Mother other (vertigo) Mother Arthritis Mother Prostate Cancer Father other (sjogrens) Sister No Known Problems Maternal Grandmother Heart Attack Maternal Grandfather No Known Problems Paternal Grandmother No Known Problems Paternal Grandfather Social History Tobacco Use Smoking status: Never Smokeless tobacco: Never Vaping Use Vaping status: Never Used Substance Use Topics Alcohol use: Not Currently Comment: Rare Drug use: Never PHYSICAL EXAM BP 112/68 Pulse 88 Resp 16 Wt 83.5 kg (184 lb) SpO2 98% BMI 33.38 kg/m General Appearance: well appearing, in no acute distress, alert Pysch: mood and affect broad and appropriate Eyes: conjunctiva pink and moist, no icterus, sclera white, non-injected Lungs: Lungs clear to auscultation. No wheezing, rhonchi, rales. Heart: RRR without murmur, gallop, or rubs. No ectopy Health maintenance reviewed with patient: Depression Screening Never done Anxiety Screening Never done Colorectal Cancer Screening due on 06/26/2023 Influenza Vaccine(1) due on 11/03/2024 DTaP,Tdap,Td Vaccine(1 - Tdap) due on 12/17/2024 Hepatitis B Vaccine(1 of 3 - 19+ 3-dose series) due on 12/17/2024 Shingrix Vaccine(1 of 2) due on 12/17/2024 Pneumococcal Vaccine(1 of 2 - PCV) due on 12/17/2024 HIV Screening due on 01/16/2025 Covid-19 Vaccine(3 - 2023- season) due on 01/16/2025 LDL Cholesterol due on 06/13/2024 HbA1C due on 06/19/2024 Urine Albumin:Creatinine Ratio due on 12/17/2024 Diabetic Foot Exam due on 12/17/2024 Mammogram Screening due on 12/24/2024 Dilated Retinal Exam due on 01/07/2025 Annual PCP Team Chronic Disease Visit due on 01/16/2025 BP Controlled (<130/80) due on 01/20/2025 Hepatitis C Screening Completed Cervical Cancer Screening Discontinued DATA REVIEWED: Most recent labs ASSESSMENT/PLAN: 1. Other fatigue - ICD9: 780.79, ICD10: R53.83 (primary diagnosis) No improvement or specific cause found. Patient with multiple chronic conditions possibly causing this. Will continue wellbutrin at this time. Once BP is normalized, if no improvement in energy, recommend we increase this. 2. Hypertension, unspecified type - ICD9: 401.9, ICD10: I10 - Controlled in office but varying at home. Continue with following up with cardiology and their recommendations. - Continue current medications - Recommend home blood pressure monitoring, to bring results to next visit - Encouraged sodium restriction, DASH or Mediterranean diet - Recommend regular aerobic exercise 3. Anxiety and depression - ICD9: 300.00, 311, ICD10: F41.9, F32.A Mild but no improvement with wellbutrin See #1 - Reviewed concept of neurochemical imbalance wth depression/anxiety, treatment options and benefits of counseling in combination with medication. Also reviewed benefits of sleep hygeine, diet and exercise Instructed patient to contact office or [id number] after-hours promptly should condition worsen or any new symptoms appear. - [facility] and after hours crisis line 4. Encounter for immunization - ICD9: V03.89, ICD10: Z23 - INFLUENZA VACCINE, AGE 6MO-64YR, TRIVALENT (AFLURIA, FLULAVAL, FLUVIRIN, FLUZONE) Prescription instructions reviewed with patient as applicable. Potential red flag symptoms discussed with the patient. Reviewed appropriate action plan to take if red flag symptoms occur. Patient agreeable to treatment plan. Shahriar Brown APRN.CNP documented in this encounterSelect [facility] NoteHNO ID: [id number] Author: CHHAYA CROWE MD Service: ? Author Type: Physician Type: Progress Notes Filed: 01/21/2024 16:30 Note Text: Hot Mill Worker offered: Patient declines. Cassia is a 58 year old who presents for an annual gynecologic exam without complaints. Postmenopausal: Yes No PMB HRT use: No. Last Pap: no record HPV: no record History of abnormal pap: No Last mammogram: 2023 normal OB History T0 L0 SAB0 IAB0 Ectopic0 Multiple0 Live Births0 Supervisor Special Education History LMP: Hysterectomy Age at Menarche: Age at First : Age at Menopause: Supervisor Special Education History Comments: Sexual Activity: Not Currently; No [...] PAST SURGICAL HISTORY OF bilateral cataract surgeries PT ED HEART AND VASCULAR 12/2022 2 heart stents placed PT ED HEART AND VASCULAR 09/2023 heart ablation TONSILLECTOMY HX FAMILY HISTORY Problem Relation Age of Onset Heart Mother stents Hypertension Mother other (pacemaker) Mother other (enlarged heart) Mother other (vertigo) Mother Arthritis Mother Prostate Cancer Father other (sjogrens) Sister No Known Problems Maternal Grandmother Heart Attack Maternal Grandfather No Known Problems Paternal Grandmother No Known Problems Paternal Grandfather SOCIAL HISTORY Social History Tobacco Use Smoking status: Never Smokeless tobacco: Never Vaping Use Vaping status: Never Used Substance Use Topics Alcohol use: Not Currently Comment: Rare Drug use: Never REVIEW OF SYSTEMS Abdomen: No abdominal pain, nausea, vomiting, diarrhea, or constipation. No bloating, early satiety, indigestion, or increased flatulence. Bladder: No dysuria, gross hematuria, urinary frequency, urinary urgency, or incontinence Breast: No breast lumps, nipple d/c, overlying skin changes, redness or skin retraction Allergies and current medication updated:Yes SENSITIVE EXAM: The sensitive examination was discussed with the Patient or Patient's Authorized Oracle Consultant. As applicable, any other physician, advance practice provider, medical student, or other health professional student that will be observing or involved in the sensitive examination for educational or training purposes was discussed with the Patient or Authorized Oracle Consultant. The Patient or Authorized Oracle Consultant has agreed to proceed with the sensitive examination. (Sensitive examination includes inspection and/or palpation of the breasts, pelvis, prostate and anorectal regions). EXAM: BP 120/76 Ht 5' 2.25 (1.58m) Wt 188 lb 3.2 oz (85.4kg) BMI 34.15 kg/(m2). GENERAL: pleasant, female in no apparent distress HEENT: Normocephalic and atraumatic NECK: full range of motion DERMATOLOGY: Normal, without lesions, non-icteric, and non-hirsute BREAST: soft, non-tender, symmetric, no dominant mass, normal nipple-areolar complex, no lymphadenopathy, and no nipple discharge CHEST: Normal inspiratory effort ABDOMEN: soft, non-tender, and no masses PELVIC: external genitalia normal, normal Bartholin's glands, urethra, Boulder's glands, no vulvar lesions, good vaginal support, physiologic discharge present, normal appearing perineal body and perianal region BIMANUAL: no adnexal masses and non-tender RECTOVAGINAL: deferred. NEURO: exam grossly non-focal EXTREMITIES: normal ASSESSMENT/PLAN: 1) Health maintenance: Pap/HPV screening no longer needed Mammogram ordered Nutrition, exercise and routine health maintenance exams reviewed. Colon cancer screening: up to date with screening TSH/lipids/glucose: followed by PCP 2) Follow up one year or sooner as needed Chhaya Crowe [facility]09-16-2024 History of Present illness Narrative* Chhaya Crowe MD - 01/21/2024 2:11 PM EDT Hot Mill Worker offered: Patient declines. Cassia is a 58 year old who presents for an annual gynecologic exam without complaints. Postmenopausal: Yes No PMB HRT use: No. Last Pap: no record HPV: no record History of abnormal pap: No Last mammogram: 2023 normal OB History T0 L0 SAB0 IAB0 Ectopic0 Multiple0 Live Births0 Supervisor Special Education History LMP: Hysterectomy Age at Menarche: Age at First : Age at Menopause: Supervisor Special Education History Comments: Sexual Activity: Not Currently; No [...] PAST SURGICAL HISTORY OF bilateral cataract surgeries PT ED HEART AND VASCULAR 12/2022 2 heart stents placed PT ED HEART AND VASCULAR 09/2023 heart ablation TONSILLECTOMY HX FAMILY HISTORY Problem Relation Age of Onset Heart Mother stents Hypertension Mother other (pacemaker) Mother other (enlarged heart) Mother other (vertigo) Mother Arthritis Mother Prostate Cancer Father other (sjogrens) Sister No Known Problems Maternal Grandmother Heart Attack Maternal Grandfather No Known Problems Paternal Grandmother No Known Problems Paternal Grandfather SOCIAL HISTORY Social History Tobacco Use Smoking status: Never Smokeless tobacco: Never Vaping Use Vaping status: Never Used Substance Use Topics Alcohol use: Not Currently Comment: Rare Drug use: Never REVIEW OF SYSTEMS Abdomen: No abdominal pain, nausea, vomiting, diarrhea, or constipation. No bloating, early satiety, indigestion, or increased flatulence. Bladder: No dysuria, gross hematuria, urinary frequency, urinary urgency, or incontinence Breast: No breast lumps, nipple d/c, overlying skin changes, redness or skin retraction Allergies and current medication updated:Yes SENSITIVE EXAM: The sensitive examination was discussed with the Patient or Patient's Authorized Oracle Consultant. As applicable, any other physician, advance practice provider, medical student, or other health professional student that will be observing or involved in the sensitive examination for educational or training purposes was discussed with the Patient or Authorized Oracle Consultant. The Patient or Authorized Oracle Consultant has agreed to proceed with the sensitive examination. (Sensitive examination includes inspection and/or palpation of the breasts, pelvis, prostate and anorectal regions). EXAM: BP 120/76 Ht 5' 2.25 (1.58m) Wt 188 lb 3.2 oz (85.4kg) BMI 34.15 kg/(m^2). GENERAL: pleasant, female in no apparent distress HEENT: Normocephalic and atraumatic NECK: full range of motion DERMATOLOGY: Normal, without lesions, non-icteric, and non-hirsute BREAST: soft, non-tender, symmetric, no dominant mass, normal nipple-areolar complex, no lymphadenopathy, and no nipple discharge CHEST: Normal inspiratory effort ABDOMEN: soft, non-tender, and no masses PELVIC: external genitalia normal, normal Bartholin's glands, urethra, Boulder's glands, no vulvar lesions, good vaginal support, physiologic discharge present, normal appearing perineal body and perianal region BIMANUAL: no adnexal masses and non-tender RECTOVAGINAL: deferred. NEURO: exam grossly non-focal EXTREMITIES: normal ASSESSMENT/PLAN: 1) Health maintenance: Pap/HPV screening no longer needed Mammogram ordered Nutrition, exercise and routine health maintenance exams reviewed. Colon cancer screening: up to date with screening TSH/lipids/glucose: followed by PCP 2) Follow up one year or sooner as needed Chhaya Crowe DO documented in this encounterSelect [facility] Instructions* Patient Instructions* Shahriar Brown APRN.CNP - 01/17/2024 1:43 PM EDT Start using your cpap documented in this encounterSelect [facility]2024 NoteHNO ID: [id number] Author: SHAHRIAR BROWN APRN.CNP Service: ? Author Type: Nurse Practitioner Type: Progress Notes Filed: 01/18/2024 07:21 Note Text: CC: Patient presents with: Recheck: 4 week follow up HPI Cassia Holland is a 58 year old female who presents today for follow up on fatigue. Was seen 4 weeks ago and told to start using her cpap regularly. Anemia stable. Other blood work unremarkable. Last Visit: Continues to feel exhausted and gaining weight. Too exhausted to exercise outside of work and currently living with her sister who encourages eating junk food. Continues her iron supplement. Just was switched to plaquenil by rheumatology for her lupus. HERMILO: Has not used her cpap in the past few months. Has not started using her cpap. Did have carvedilol stopped by cardiology the other day due to low blood pressures but unsure if this has improved her energy. States she can sleep all day. Depression and anxiety: Unsure of control. With all her health issues, she can struggle with this. Sleep: is described as normal Alcohol use: does not drink any alcohol Drug use: No Appetite: good Suicidal Thoughts: No suicidal ideation, intent or plan REVIEW OF SYSTEMS General: no fevers, no chills, no night sweats, no recurrent infections, Respiratory: no cough, no wheezing, no shortness of breath, no hemoptysis Cardiovascular: no chest pain, no chest pressure, no palpitations, and no swelling 01/17/2024 MARIANO-7 ANXIETY SCALE Feeling nervous, anxious, or on edge 1 Several days Not being able to stop or control worrying 0 Not at all sure Worrying too much about different things 0 Not at all sure Trouble relaxing 1 Several days Being so restless that it's hard to sit still 0 Not at all sure Being easily annoyed or irritable 0 Not at all sure Feeling afraid as if something awful might happen 0 Not at all sure MARIANO-7 Anxiety Score 2 If you checked off any problems, how difficult have these problems made it for you to do your work, take care of things at home, or get along with other people? Somewhat difficult CP PHQ9 Little interest or pleasure 1 - Several days Feeling down, depressed, hopeless 1 - Several days Trouble falling or staying asleep, sleeping too much 0 - Not at all Feeling tired, having little energy 2 - More than half the days Poor appetite or overeating 1 - Several days Feeling bad about yourself, failure or you have let yourself/family down 1 - Several days Trouble concentrating on things 2 - More than half the days Moving or speaking so slowly, or fidgety or restless 0 - Not at all Thoughts that you would be better off , or of hurting yourself in some way 0 - Not at all How difficult have these problems made things Somewhat difficult Interpretation of Total Score 5-9 Mild depression PAST MEDICAL HISTORY No date: Diabetes (HCC) Comment: adult onset No date: Fibromyalgia No date: Graves disease No date: High blood pressure 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 ferrous sulfate 325 mg (65 mg iron) tablet Take 1 tablet by mouth two times a day with meals. hydrOXYchloroQUINE (PLAQUENIL) 200 mg tablet Take 200 mg by mouth once daily. citalopram (CELEXA) 40 mg tablet Take 1 tablet by mouth once daily. metFORMIN ER (GLUCOPHAGE XR) 500 mg 24 hr tablet take 2 tablets by mouth twice a day with meals isosorbide mononitrate ER (IMDUR) 30 mg 24 hr tablet Take 30 mg by mouth every morning. molnupiravir (LAGEVRIO, EUA,) 200 mg capsule Take 800 mg by mouth two times a day. naproxen (NAPROSYN) 500 mg tablet take 1 tablet by mouth twice a day with food if needed for PAIN/INFLAMMATION lansoprazole (PREVACID) 30 mg capsule take 1 capsule by mouth once daily , 1/2 HOUR BEFORE BREAKFAST fluticasone (FLONASE) 50 mcg/actuation nasal spray instill 2 sprays into each nostril once daily budesonide (PULMICORT) 1 mg/2 mL nebulizer solution instill contents of 1 vial IN NASAL SALINE WASHES AND USE TWICE DAILY benzonatate (TESSALON PERLES) 100 mg capsule Take 2 capsules by mouth three times a day as needed for cough. dilTIAZem CD (CARDIZEM CD) 180 mg 24 hr capsule Take 120 mg by mouth two times a day. 120 mg BID montelukast (SINGULAIR) 10 mg tablet take 1 tablet by mouth once daily apixaban (ELIQUIS) 5 mg tab(s) Take 5 mg by mouth two times a day. pravastatin sodium (PRAVASTATIN ORAL) T (more content not included)...[facility]2024 History of Present illness Narrative* Shahriar Brown APRN.MOLD MAKING SUPERVISOR - 01/17/2024 1:25 PM EDT CC: Patient presents with: Recheck: 4 week follow up HPI Cassia Holland is a 58 year old female who presents today for follow up on fatigue. Was seen 4 weeks ago and told to start using her cpap regularly. Anemia stable. Other blood work unremarkable. Last Visit: Continues to feel exhausted and gaining weight. Too exhausted to exercise outside of work and currently living with her sister who encourages eating junk food. Continues her iron supplement. Just was switched to plaquenil by rheumatology for her lupus. HERMILO: Has not used her cpap in the past few months. Has not started using her cpap. Did have carvedilol stopped by cardiology the other day due to low blood pressures but unsure if this has improved her energy. States she can sleep all day. Depression and anxiety: Unsure of control. With all her health issues, she can struggle with this. Sleep: is described as normal Alcohol use: does not drink any alcohol Drug use: No Appetite: good Suicidal Thoughts: No suicidal ideation, intent or plan REVIEW OF SYSTEMS General: no fevers, no chills, no night sweats, no recurrent infections, Respiratory: no cough, no wheezing, no shortness of breath, no hemoptysis Cardiovascular: no chest pain, no chest pressure, no palpitations, and no swelling 01/17/2024 MARIANO-7 ANXIETY SCALE Feeling nervous, anxious, or on edge 1 Several days Not being able to stop or control worrying 0 Not at all sure Worrying too much about different things 0 Not at all sure Trouble relaxing 1 Several days Being so restless that it's hard to sit still 0 Not at all sure Being easily annoyed or irritable 0 Not at all sure Feeling afraid as if something awful might happen 0 Not at all sure MARIANO-7 Anxiety Score 2 If you checked off any problems, how difficult have these problems made it for you to do your work,take care of things at home, or get along with other people? Somewhat difficult CP PHQ9 Little interest or pleasure 1 - Several days Feeling down, depressed, hopeless 1 - Several days Trouble falling or staying asleep, sleeping too much 0 - Not at all Feeling tired, having little energy 2 - More than half the days Poor appetite or overeating 1 - Several days Feeling bad about yourself, failure or you have let yourself/family down 1 - Several days Trouble concentrating on things 2 - More than half the days Moving or speaking so slowly, or fidgety or restless 0 - Not at all Thoughts that you would be better off , or of hurting yourself in some way 0 - Not at all How difficult have these problems made things Somewhat difficult Interpretation of Total Score 5-9 Mild depression PAST MEDICAL HISTORY No date: Diabetes (HCC) Comment: adult onset No date: Fibromyalgia No date: Graves disease No date: High blood pressure 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 ferrous sulfate 325 mg (65 mg iron) tablet Take 1 tablet by mouth two times a day with meals. hydrOXYchloroQUINE (PLAQUENIL) 200 mg tablet Take 200 mg by mouth once daily. citalopram (CELEXA) 40 mg tablet Take 1 tablet by mouth once daily. metFORMIN ER (GLUCOPHAGE XR) 500 mg 24 hr tablet take 2 tablets by mouth twice a day with meals isosorbide mononitrate ER (IMDUR) 30 mg 24 hr tablet Take 30 mg by mouth every morning. molnupiravir (LAGEVRIO, EUA,) 200 mg capsule Take 800 mg by mouth two times a day. naproxen (NAPROSYN) 500 mg tablet take 1 tablet by mouth twice a day with food if needed for PAIN/INFLAMMATION lansoprazole (PREVACID) 30 mg capsule take 1 capsule by mouth once daily , 1/2 HOUR BEFORE BREAKFAST fluticasone (FLONASE) 50 mcg/actuation nasal spray instill 2 sprays into each nostril once daily budesonide (PULMICORT) 1 mg/2 mL nebulizer solution instill contents of 1 vial IN NASAL SALINE WASHES AND USE TWICE DAILY benzonatate (TESSALON PERLES) 100 mg capsule Take 2 capsules by mouth three times a day as needed for cough. dilTIAZem CD (CARDIZEM CD) 180 mg 24 hr capsule Take 120 mg by mouth two times a day. 120 mg BID montelukast (SINGULAIR) 10 mg tablet take 1 tablet by mouth once daily apixaban (ELIQUIS) 5 mg tab(s) Take 5 mg by mouth two times a day. pravastatin sodium (PRAVASTATIN ORAL) Take by mouth. clopidogrel (PLAVIX) 75 mg tablet take 4 tablets by mouth on day 1 then 1 tablet by mouth once daily after losartan (COZAAR) 100 mg tablet Take 0.5 tablets by mouth once daily. hydroCHLOROthiazide 25 mg tablet take 1 tablet by mouth once daily nystatin (MYCOSTATIN) powder Apply 1 application to affected area three times daily. EPINEPHrine (EPIPEN) 0.3 mg/0.3 mL auto-injector Use per directed for severe allergic reaction lancets (tenXerTOUCH DELICA PLUS LANCET) 33 gauge Test blood sugar(s) 1 times daily. Dx: Type 2 DM - Controlled E11.9 Insulin: No blood sugar diagnostic (ONETOUCH ULTRA TEST) test strip use 1 TEST STRIP to TEST BLOOD SUGAR once daily levalbuterol tartrate HFA (XOPENEX HFA) 45 mcg/actuation inhaler Inhale 1-2 Puffs as instructed every 4 hours as needed. Blood-Glucose Meter Dispense 1 kit FAMILY HISTORY Problem Relation Age of Onset Heart Mother stents Hypertension Mother other (pacemaker) Mother other (enlarged heart) Mother other (vertigo) Mother Prostate Cancer Father other (sjogrens) Sister Social History Tobacco Use Smoking status: Never Smokeless tobacco: Never Vaping Use Vaping status: Never Used Substance Use Topics Alcohol use: Not Currently Drug use: Never PHYSICAL EXAM BP 132/80 Pulse 80 Resp 16 Wt 85.3 kg (188 lb 0.8 oz) SpO2 98% BMI 32.79 kg/m General Appearance: well appearing, in no acute distress, alert Pysch: mood and affect broad and appropriate Eyes: conjunctiva pink and moist, no icterus, sclera white, non-injected Lungs: Lungs clear to auscultation. No wheezing, rhonchi, rales. Heart: RRR without murmur, gallop, or rubs. No ectopy Health maintenance reviewed with patient: Depression Screening Never done Anxiety Screening Never done HIV Screening Never done BP Controlled (<130/80) Never done Colorectal Cancer Screening due on 06/26/2023 Covid-19 Vaccine(2022- season) due on 01/06/2024 Influenza Vaccine(1) due on 01/06/2024 DTaP,Tdap,Td Vaccine(1 - Tdap) due on 12/17/2024 Hepatitis B Vaccine(1 of 3 - 19+ 3-dose series) due on 12/17/2024 Shingrix Vaccine(1 of 2) due on 12/17/2024 Pneumococcal Vaccine(1 of 2 - PCV) due on 12/17/2024 LDL Cholesterol due on 06/13/2024 HbA1C due on 06/19/2024 Urine Albumin:Creatinine Ratio due on 12/17/2024 Diabetic Foot Exam due on 12/17/2024 Annual PCP Team Chronic Disease Visit due on 12/17/2024 Mammogram Screening due on 12/24/2024 Dilated Retinal Exam due on 01/07/2025 Hepatitis C Screening Completed Cervical Cancer Screening Discontinued DATA REVIEWED: Most recent labs ASSESSMENT/PLAN: 1. Other fatigue - ICD9: 780.79, ICD10: R53.83 (primary diagnosis) Needs to start wearing cpap and possibly not being on carvedilol may help as well. With the concernof possible depression increasing this as well, will treat with wellbutrin Follow up in 4-6 weeks 2. HERMILO (obstructive sleep apnea) - ICD9: 327.23, ICD10: G47.33 Start wearing the cpap regularly with a goal of nightly at least for 4 hoiurs 3. Hypertension, unspecified type - ICD9: 401.9, ICD10: I10 - Controlled - Continue current medications - Recommend home blood pressure monitoring, to bring results to next visit - Encouraged sodium restriction, DASH or Mediterranean diet - Recommend regular aerobic exercise 4. Anxiety and depression - ICD9: 300.00, 311, ICD10: F41.9, F32.A Uncontrolled depression - adding wellbutrin - Reviewed concept of neurochemical imbalance wth depression/anxiety, treatment options and benefits of counseling in combination with medication. Also reviewed benefits of sleep hygeine, diet and exercise - Follow-up in 4-6 weeks or sooner as needed - Instructed patient to contact office or [id number] after-hours promptly should condition worsen or any new symptoms appear. - [facility] and after hours crisis line 5. Type 2 diabetes mellitus without complication, without long-term current use of insulin (HCC) - ICD9: 250.00, ICD10: E11.9 Not discussed today, refill needed - METFORMIN ER 500 MG TABLET,EXTENDED RELEASE 24 HR Prescription instructions reviewed with patient as applicable. Potential red flag symptoms discussed with the patient. Reviewed appropriate action plan to take if red flag symptoms occur. Patient agreeable to treatment plan. Shahriar Brown APRN.CNP documented [facility] Telephone encounter Note * Telephone Encounter - Tio Bentley MA - 01/15/2024 9:18 AM EDT Prescription Refill Information The patient has been identified by name and date of : Yes Caregiver verified no other encounters exist for this prescription request: Yes Caregiver confirmed with patient/requestor that no other refills are due, in the near future, with this provider at this time: Yes The last office visit in the department: 12/18/2023 Does the patient have a future office visit with this provider/department: Yes Requested Prescriptions Pending Prescriptions Disp Refills ferrous sulfate 325 mg (65 mg iron) tablet 60 tablet 1 Sig: Take 1 tablet by mouth two times a day with meals. Tio Bentley MA January 15, 2024 9:18 AM [facility]09-10-2024 Miscellaneous Notes* Telephone Encounter - Tio Bentley MA - 01/15/2024 9:18 AM EDT Prescription Refill Information The patient has been identified by name and date of : Yes Caregiver verified no other encounters exist for this prescription request: Yes Caregiver confirmed with patient/requestor that no other refills are due, in the near future, with this provider at this time: Yes The last office visit in the department: 12/18/2023 Does the patient have a future office visit with this provider/department: Yes Requested Prescriptions Pending Prescriptions Disp Refills ferrous sulfate 325 mg (65 mg iron) tablet 60 tablet 1 Sig: Take 1 tablet by mouth two times a day with meals. Tio Bentley MA January 15, 2024 9:18 AM documented in this encounterSelect [facility]-20-[facility] Note* Letter - Coordinator, [facility] - 12/25/2023 8:44 PM EDT December 26, 2023 PID: [id number] Cassia Holland [address] [place] [address] Dear Ms. Holland, We are pleased to inform you that the results of your recent breast imaging exam on 12/25/2023 are normal. Breast tissue can be either dense or not dense. Dense tissue makes it harder to find breast cancer on a mammogram and also raises the risk of developing breast cancer. Your breast tissue is dense. Insome people with dense tissue, other imaging tests in addition to a mammogram may help find cancers. Talk to your healthcare provider about breast density, risks for breast cancer, and your individual situation. Early detection of cancer is very important. We also understand recommendations regarding breast cancer screening are controversial. Please discuss with your primary care provider which strategy is best for you and whether a mammogram is right for you. Your imaging studies and report will be kept on file at [facility] as part of your permanent medical record and are available for your continuing care. Thank you for allowing us to help in meeting your health care needs. Sincerely, Dr. Jameson Interpreting Radiologist [facility] (Normal over 40) [facility]08-20-2024 Miscellaneous Notes* Letter - Coordinator, Mammography - 12/25/2023 8:44 PM EDT December 26, 2023 PID: [id number] Cassia Holland [address] [place] [address] Dear Ms. Holland, We are pleased to inform you that the results of your recent breast imaging exam on 12/25/2023 are normal. Breast tissue can be either dense or not dense. Dense tissue makes it harder to find breast cancer on a mammogram and also raises the risk of developing breast cancer. Your breast tissue is dense. Insome people with dense tissue, other imaging tests in addition to a mammogram may help find cancers. Talk to your healthcare provider about breast density, risks for breast cancer, and your individual situation. Early detection of cancer is very important. We also understand recommendations regarding breast cancer screening are controversial. Please discuss with your primary care provider which strategy is best for you and whether a mammogram is right for you. Your imaging studies and report will be kept on file at [facility] as part of your permanent medical record and are available for your continuing care. Thank you for allowing us to help in meeting your health care needs. Sincerely, Dr. Jameson Interpreting Radiologist [facility] (Normal over 40) documented in this encounterSelect [facility] History of Present illness Narrative* Figueroa Davies Mammo Tech - 12/25/2023 8:30 AM EDT Radiology Service Progress Note PATIENT NAME: Cassia Holland DATE OF SERVICE: December 25, 2023 TIME: 10:06 AM PATIENT IDENTITY VERIFICATION COMPLETED USING TWO (2) IDENTIFIERS: Name and Date of confirmedby patient verbally. FALL SCREENING: Has the patient had 2 falls in the last year or 1 fall with injury or currently using an Ambulatory Assistive Device (Walker, Cane, Wheelchair, Crutches, etc.)? No PATIENT GENDER DATA: Female. status: : No status: NO. PATIENT RELEVANT IMPLANT DATA REVIEWED: Not Applicable PATIENT PRESENTS WITH AN IMPLANTABLE OR ATTACHED AUTOMOTIVE SPECIALTY TECHNICIAN: No RADIOLOGY DEPARTMENT: Mammography PERIPHERAL IV DATA: Not applicable SIGNED BY: Paul Huertas December 25, 2023 10:06 AM documented in this encounterSelect [facility]08-20-2024 NoteHNO ID: [id number] Author: FIGUEROA DAVIES Mammo Tech Service: ? Author Type: Technologist Type: Progress Notes Filed: 12/25/2023 10:06 Note Text: Radiology Service Progress Note PATIENT NAME: Cassia Holland DATE OF SERVICE: December 25, 2023 TIME: 10:06 AM PATIENT IDENTITY VERIFICATION COMPLETED USING TWO (2) IDENTIFIERS: Name and Date of confirmed by patient verbally. FALL SCREENING: Has the patient had 2 falls in the last year or 1 fall with injury or currently using an Ambulatory Assistive Device (Walker, Cane, Wheelchair, Crutches, etc.)? No PATIENT GENDER DATA: Female. status: : No status: NO. PATIENT RELEVANT IMPLANT DATA REVIEWED: Not Applicable PATIENT PRESENTS WITH AN IMPLANTABLE OR ATTACHED AUTOMOTIVE SPECIALTY TECHNICIAN: No RADIOLOGY DEPARTMENT: Mammography PERIPHERAL IV DATA: Not applicable SIGNED BY: Paul Huertas December 25, 2023 10:06 [facility]08-13-2024 Instructions* Patient Instructions* Shahriar Brown APRN.CNP - 12/18/2023 8:33 AM EDT Start using a CPAP Continue plaquenil as directed by rheumatology Start doing some strength and stretching exercises in the evenings. documented in this encounterSelect [facility]-13-2024 NoteHNO ID: [id number] Author: SHAHRIAR BROWN APRN.ANTHONY Service: ? Author Type: Nurse Practitioner Type: Progress Notes Filed: 12/18/2023 09:45 Note Text: CC: Patient presents with: Recheck: Follow up HPI Cassia Holland is a 58 year old female who presents today for routine follow up. A-fib, HTN: ablation this past September. Overall has had a regular rhythm but patient reports occasional HR in the 90s. Ms. Holland indicates that she is feeling well and denies any symptoms referable to elevated blood pressure. Specifically denies headache, chest pain, dyspnea, and peripheral edema. Has had some palpitations but feels her heart is regular rhythm. Patient denies any side effects of her medication(s) and is compliant with their regimen. She does check BP's away from this office with average BP's in the 140s-190s/70s-90s range but is working with her cardiology group to get it consistently lower. Cassia denies regular aerobic exercise. She watches her diet for sodium, low fat and low cholesterol generally not very much. Last 3 Encounter BP Readings: Date: BP: 12/18/2023 138/80 08/09/2023 142/86 07/05/2023 160/88 DIABETES MELLITUS: Ms. Holland denies excessive thirst or increased frequency of urination, chest pain or dyspnea , numbness, tingling or pain in extremities, new or unusual visual symptoms, low sugar/hypoglycemic reactions, weight loss/gain, lightheadedness/dizziness, and bowel changes/loose stools. Follows a diabetic diet generally not very much. She is compliant with medication(s) and is tolerating med(s) without any side effects. She reports checking her glucose on a once a day schedule with sugars in the fasting 120s range. Patient's last HgA1C was Hemoglobin A1C (%) Date Value 06/13/2023 6.4 02/28/2023 6.3 05/05/2021 7.3 12/24/2020 9.1 Hemoglobin A1C (POCT) (%) Date Value 01/19/2022 7.2 10/13/2021 8.4 ) Last Ophthalmology exam was over a year ago but has appointment next month with Dr. Haas. Continues to feel exhausted and gaining weight. Too exhausted to exercise outside of work and currently living with her sister who encourages eating junk food. Continues her iron supplement. Just was switched to plaquenil by rheumatology for her lupus. HERMILO: Has not used her cpap in the past few months. 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 ferrous sulfate 325 mg (65 mg iron) tablet Take 1 tablet by mouth two times a day with meals. citalopram (CELEXA) 40 mg tablet Take 1 tablet by mouth once daily. predniSONE (DELTASONE) 20 mg tablet Take 20 mg by mouth once daily. metFORMIN ER (GLUCOPHAGE XR) 500 mg 24 hr tablet take 2 tablets by mouth twice a day with meals isosorbide mononitrate ER (IMDUR) 30 mg 24 hr tablet Take 30 mg by mouth every morning. molnupiravir (LAGEVRIO, EUA,) 200 mg capsule Take 800 mg by mouth two times a day. naproxen (NAPROSYN) 500 mg tablet take 1 tablet by mouth twice a day with food if needed for PAIN/INFLAMMATION lansoprazole (PREVACID) 30 mg capsule take 1 capsule by mouth once daily , 1/2 HOUR BEFORE BREAKFAST fluticasone (FLONASE) 50 mcg/actuation nasal spray instill 2 sprays into each nostril once daily budesonide (PULMICORT) 1 mg/2 mL nebulizer solution instill contents of 1 vial IN NASAL SALINE WASHES AND USE TWICE DAILY benzonatate (TESSALON PERLES) 100 mg capsule Take 2 capsules by mouth three times a day as needed for cough. dilTIAZem CD (CARDIZEM CD) 180 mg 24 hr capsule Take 120 mg by mouth two times a day. 120 mg BID montelukast (SINGULAIR) 10 mg tablet take 1 tablet by mouth once daily apixaban (ELIQUIS) 5 mg tab(s) Take 5 mg by mouth two times a day. pravastatin sodium (PRAVASTATIN ORAL) Take by mouth. clopidogrel (PLAVIX) 75 mg tablet take 4 tablets by mouth on day 1 then 1 tablet by mouth once daily after losartan (COZAAR) 100 mg tablet Take 0.5 tablets by mouth once daily. hydroCHLOROthiazide 25 mg tablet take 1 tablet by mouth once daily carvedilol (COREG) 6.25 mg tablet Take 25 mg by mouth two times a day with meals. nystatin (MYCOSTATIN) powder Apply 1 application to affected area three times daily. EPINEPHrine (EPIPEN) 0.3 mg/0.3 mL auto-injector Use per directed for (more content not included)...[facility] History of Present illness Narrative* Shahriar Brown APRN.MOLD MAKING SUPERVISOR - 12/18/2023 8:06 AM EDT CC: Patient presents with: Recheck: Follow up HPI Cassia Holland is a 58 year old female who presents today for routine follow up. A-fib, HTN: ablation this past September. Overall has had a regular rhythm but patient reports occasionalHR in the 90s. Ms. Holland indicates that she is feeling well and denies any symptoms referable to elevated blood pressure. Specifically denies headache, chest pain, dyspnea, and peripheral edema. Has had some palpitations but feels her heart is regular rhythm. Patient denies any side effects of her medication(s) and is compliant with their regimen. She does check BP's away from this office with average BP's in the 140s-190s/70s-90s range but is working with her cardiology group to get it consistently lower. Cassia denies regular aerobic exercise. She watches her diet for sodium, low fat and low c holesterol generally not very much. Last 3 Encounter BP Readings: Date: BP: 12/18/2023 138/80 08/09/2023 142/86 07/05/2023 160/88 DIABETES MELLITUS: Ms. Holland denies excessive thirst or increased frequency of urination, chest pain or dyspnea , numbness, tingling or pain in extremities, new or unusual visual symptoms, low sugar/hypoglycemic reactions, weight loss/gain, lightheadedness/dizziness, and bowel changes/loose stools.Follows a diabetic diet generally not very much. She is compliant with medication(s) and is tolerating med(s) without any side effects. She reports checking her glucose on a once a day schedule with sugars in the fasting 120s range. Patient's last HgA1C was Hemoglobin A1C (%) Date Value 06/13/2023 6.4 02/28/2023 6.3 05/05/2021 7.3 12/24/2020 9.1 Hemoglobin A1C (POCT) (%) Date Value 01/19/2022 7.2 10/13/2021 8.4 ) Last Ophthalmology exam was over a year ago but has appointment next month with Dr. Haas. Continues to feel exhausted and gaining weight. Too exhausted to exercise outside of work and currently living with her sister who encourages eating junk food. Continues her iron supplement. Just wasswitched to plaquenil by rheumatology for her lupus. HERMILO: Has not used her cpap in the past few months. 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 ferrous sulfate 325 mg (65 mg iron) tablet Take 1 tablet by mouth two times a day with meals. citalopram (CELEXA) 40 mg tablet Take 1 tablet by mouth once daily. predniSONE (DELTASONE) 20 mg tablet Take 20 mg by mouth once daily. metFORMIN ER (GLUCOPHAGE XR) 500 mg 24 hr tablet take 2 tablets by mouth twice a day with meals isosorbide mononitrate ER (IMDUR) 30 mg 24 hr tablet Take 30 mg by mouth every morning. molnupiravir (LAGEVRIO, EUA,) 200 mg capsule Take 800 mg by mouth two times a day. naproxen (NAPROSYN) 500 mg tablet take 1 tablet by mouth twice a day with food if needed for PAIN/INFLAMMATION lansoprazole (PREVACID) 30 mg capsule take 1 capsule by mouth once daily , 1/2 HOUR BEFORE BREAKFAST fluticasone (FLONASE) 50 mcg/actuation nasal spray instill 2 sprays into each nostril once daily budesonide (PULMICORT) 1 mg/2 mL nebulizer solution instill contents of 1 vial IN NASAL SALINE WASHES AND USE TWICE DAILY benzonatate (TESSALON PERLES) 100 mg capsule Take 2 capsules by mouth three times a day as needed for cough. dilTIAZem CD (CARDIZEM CD) 180 mg 24 hr capsule Take 120 mg by mouth two times a day. 120 mg BID montelukast (SINGULAIR) 10 mg tablet take 1 tablet by mouth once daily apixaban (ELIQUIS) 5 mg tab(s) Take 5 mg by mouth two times a day. pravastatin sodium (PRAVASTATIN ORAL) Take by mouth. clopidogrel (PLAVIX) 75 mg tablet take 4 tablets by mouth on day 1 then 1 tablet by mouth once daily after losartan (COZAAR) 100 mg tablet Take 0.5 tablets by mouth once daily. hydroCHLOROthiazide 25 mg tablet take 1 tablet by mouth once daily carvedilol (COREG) 6.25 mg tablet Take 25 mg by mouth two times a day with meals. nystatin (MYCOSTATIN) powder Apply 1 application to affected area three times daily. EPINEPHrine (EPIPEN) 0.3 mg/0.3 mL auto-injector [...] as instructed every 4 hours as needed. Blood-Glucose Meter Dispense 1 kit FAMILY HISTORY Problem Relation Age of Onset Heart Mother stents Hypertension Mother other (pacemaker) Mother other (enlarged heart) Mother other (vertigo) Mother Prostate Cancer Father other (sjogrens) Sister Social History Tobacco Use Smoking status: Never Smokeless tobacco: Never Vaping Use Vaping Use: Never used Substance Use Topics Alcohol use: Not Currently Drug use: Never PHYSICAL EXAM BP 138/80 Pulse 80 Resp 16 Wt 86.2 kg (190 lb) SpO2 98% BMI 33.13 kg/m General Appearance: well appearing, in no acute distress, alert Eyes: conjunctiva pink and moist, no icterus, sclera white, non-injected Lungs: Lungs clear to auscultation. No wheezing, rhonchi, rales. Heart: RRR without murmur, gallop, or rubs. No ectopy Extremities: No deformities, edema, skin discoloration, clubbing or cyanosis. Good capillary refill. Feet:Shoes and socks removed, normal distal pulses, sensitive to 10 gm monofilament, and vibratory perception normal Health maintenance reviewed with patient: Pneumococcal Vaccine(1 of 2 - PCV) Never done Depression Screening Never done Anxiety Screening Never done HIV Screening Never done BP Controlled (<130/80) Never done DTaP,Tdap,Td Vaccine(1 - Tdap) Never done Hepatitis B Vaccine(1 of 3 - 19+ 3-dose series) Never done Shingrix Vaccine(1 of 2) Never done Diabetic Foot Exam due on 03/07/2022 Colorectal Cancer Screening due on 06/26/2023 Dilated Retinal Exam due on 10/24/2023 Mammogram Screening due on 11/10/2023 HbA1C due on 12/12/2023 Urine Albumin:Creatinine Ratio due on 12/08/2023 Covid-19 Vaccine(3 - season) due on 03/28/2024 Influenza Vaccine(1) due on 01/06/2024 LDL Cholesterol due on 06/13/2024 Annual PCP Team Chronic Disease Visit due on 08/08/2024 Hepatitis C Screening Completed Cervical Cancer Screening Discontinued DATA REVIEWED: Most recent labs ASSESSMENT/PLAN: 1. Type 2 diabetes mellitus without complication, without long-term current use of insulin (HCC) - ICD9: 250.00, ICD10: E11.9 (primary diagnosis) - Control undetermined, due for labs - Continue current medications - Blood glucose monitoring on a once daily schedule - Counseled on healthy diet and regular exercise - Discussed need for and benefit of weight loss. BMI 33.13 kg/(m^2) - ALBUMIN/CREATININE RATIO, URINE - HEMOGLOBIN A1C (POC) - HEMOGLOBIN A1C 2. Other fatigue - ICD9: 780.79, ICD10: R53.83 Patient with many conditions that may attribute to this. Will check anemia and thyroid. Come back in 4 weeks after utilizing your cpap machine regularly, starting some form of exercise, and continuing your hydroxychlorquine as ordered by [facility]. If no improvement or cause found need to evaluate for mental health cause. - COMPLETE BLOOD COUNT AND DIFFERENTIAL - IRON AND TIBC - FERRITIN - THYROID STIMULATING HORMONE 3. HERMILO (obstructive sleep apnea) - ICD9: 327.23, ICD10: G47.33 Start wearing your cpap nightly with goal of at least 4 hours a night. Follow up in 4 weeks 4. Atrial fibrillation, unspecified type (HCC) - ICD9: 427.31, ICD10: I48.91 Stable Continue with recommendations by cardiology 5. Hypertension, unspecified type - ICD9: 401.9, ICD10: I10 - working with cardiology for blood pressure control - continue with recommendations by them - Recommend home blood pressure monitoring, to bring results to next visit - Encouraged sodium restriction, DASH or Mediterranean diet - Recommend regular aerobic exercise 6. Anemia, unspecified type - ICD9: 285.9, ICD10: D64.9 Possible cause of fatigue. - COMPLETE BLOOD COUNT AND DIFFERENTIAL - IRON AND TIBC - FERRITIN 7. Lupus (HCC) - ICD9: 710.0, ICD10: M32.9 Continue with recommendations by rheum Prescription instructions reviewed with patient as applicable. Potential red flag symptoms discussed with the patient. Reviewed appropriate action plan to take if red flag symptoms occur. Patient agreeable to treatment plan. Shahriar Brown APRN.ANTHONY documented in this encounterSelect [facility] NotePatient Outreach (INTMMN) CASSIA HOLLAND ([id number]) 1965 F Date Time Provider Department 12/12/23 OPAL MATHEWS During your visit today, we recorded the following information about you: Allergies As of Date: 12/12/2023 Noted Allergy Reaction CANTALOUPE 01/22/2019 18 - Angioedema LEVAQUIN (LEVOFLOXACIN) 04/12/2021 2 - Rash SULFA (SULFONAMIDE ANTIBIOTICS) 01/22/2019 4 - Hives Date Reviewed: 08/09/2023 Reviewed by: Julieta Campuzano MA - Fully Assessed Visit Diagnosis:Encounter for screening mammogram for breast cancer [Z12.31] Order(s):MIN SCREENING W ROBERT [[id number]] Order #: [id number] FUTURE Prescriptions as of 12/17/2023 - ferrous sulfate 325 mg (65 mg iron) tablet Take 1 tablet by mouth two times a day with meals. - citalopram (CELEXA) 40 mg tablet Take 1 tablet by mouth once daily. - predniSONE (DELTASONE) 20 mg tablet Take 20 mg by mouth once daily. - metFORMIN ER (GLUCOPHAGE XR) 500 mg 24 hr tablet take 2 tablets by mouth twice a day with meals - isosorbide mononitrate ER (IMDUR) 30 mg 24 hr tablet Take 30 mg by mouth every morning. - molnupiravir (LAGEVRIO, EUA,) 200 mg capsule Take 800 mg by mouth two times a day. - naproxen (NAPROSYN) 500 mg tablet take 1 tablet by mouth twice a day with food if needed for PAIN/INFLAMMATION - lansoprazole (PREVACID) 30 mg capsule take 1 capsule by mouth once daily , 1/2 HOUR BEFORE BREAKFAST - fluticasone (FLONASE) 50 mcg/actuation nasal spray instill 2 sprays into each nostril once daily - budesonide (PULMICORT) 1 mg/2 mL nebulizer solution instill contents of 1 vial IN NASAL SALINE WASHES AND USE TWICE DAILY - benzonatate (TESSALON PERLES) 100 mg capsule Take 2 capsules by mouth three times a day as needed for cough. - dilTIAZem CD (CARDIZEM CD) 180 mg 24 hr capsule Take 120 mg by mouth two times a day. 120 mg BID - montelukast (SINGULAIR) 10 mg tablet take 1 tablet by mouth once daily - apixaban (ELIQUIS) 5 mg tab(s) Take 5 mg by mouth two times a day. - pravastatin sodium (PRAVASTATIN ORAL) Take by mouth. - clopidogrel (PLAVIX) 75 mg tablet take 4 tablets by mouth on day 1 then 1 tablet by mouth once daily after - losartan (COZAAR) 100 mg tablet Take 0.5 tablets by mouth once daily. - hydroCHLOROthiazide 25 mg tablet take 1 tablet by mouth once daily - carvedilol (COREG) 6.25 mg tablet Take 25 mg by mouth two times a day with meals. - nystatin (MYCOSTATIN) powder Apply 1 application to affected area three times daily. - EPINEPHrine (EPIPEN) 0.3 mg/0.3 mL auto-injector Use per directed for severe allergic reaction - lancets (tenXerTOUCH DELICA PLUS LANCET) 33 gauge Test blood sugar(s) 1 times daily. Dx: Type 2 DM - Controlled E11.9 Insulin: No - blood sugar diagnostic (ONETOUCH ULTRA TEST) test strip use 1 TEST STRIP to TEST BLOOD SUGAR once daily - levalbuterol tartrate HFA (XOPENEX HFA) 45 mcg/actuation inhaler Inhale 1-2 Puffs as instructed every 4 hours as needed. - Blood-Glucose Meter Dispense 1 kit Problem List As Of Date 12/12/2023 Noted Resolved Diabetes (HCC) [E11.9] Hypertension [I10] Lupus (HCC) [M32.9] Graves disease [E05.00] Raynaud disease [I73.00] Mixed connective tissue disease (HCC) [M35.1] Interstitial lung disease (HCC) [J84.9] Fibromyalgia [M79.7] Cervicalgia [M54.2] 04/07/2021 Encounter Status:Closed by MILY DELANEY on 12/17/23[facility] 11-12-2023 Miscellaneous Notes* Telephone Encounter - Michelle Luz LPN - 11/12/2023 10:50 AM EDT Prescription Refill Information The patient has been identified by name and date of : Yes Caregiver verified no other encounters exist for this prescription request: Yes Caregiver confirmed with patient/requestor that no other refills are due, in the near future, with this provider at this time: Yes The last office visit in the department: 08/09/23 Does the patient have a future office visit with this provider/department: Yes Requested Prescriptions Pending Prescriptions Disp Refills ferrous sulfate 325 mg (65 mg iron) tablet 60 tablet 1 Sig: Take 1 tablet by mouth two times a day with meals. Michelle Luz LPN November 12, 2023 10:50 AM documented in this encounterSelect [facility]07-08-2024 Telephone encounter Note * Telephone Encounter - Michelle Luz LPN - 11/12/2023 10:50 AM EDT Prescription Refill Information The patient has been identified by name and date of : Yes Caregiver verified no other encounters exist for this prescription request: Yes Caregiver confirmed with patient/requestor that no other refills are due, in the near future, with this provider at this time: Yes The last office visit in the department: 08/09/23 Does the patient have a future office visit with this provider/department: Yes Requested Prescriptions Pending Prescriptions Disp Refills ferrous sulfate 325 mg (65 mg iron) tablet 60 tablet 1 Sig: Take 1 tablet by mouth two times a day with meals. Michelle Luz LPN November 12, 2023 10:50 AM [facility]06-13-2024 Telephone encounter Note* Telephone Encounter - Samuel Cox RN - 10/18/2023 12:37 PM EDT Pt returned call and given provider's message below with verbalized understanding. [facility]06-13-2024 Miscellaneous Notes* Telephone Encounter - Samuel Cox RN - 10/18/2023 12:37 PM EDT Pt returned call and given provider's message below with verbalized understanding. * Telephone Encounter - Willow Amaro OCCA - 10/18/2023 8:10 AM EDT TC no answer. Left VM to return call. ADRYAN Bright * Telephone Encounter - Shahriar Brown APRN.CNP - 10/17/2023 6:30 PM EDT Liver enzymes are at baseline and stable. Kidney function good. Was there something specific I was to be reviewing? That is all that was scanned in. Other blood work should be reviewed by ordering provider. Thank you Shahriar Brown APRN.MOLD MAKING SUPERVISOR * Telephone Encounter - Alyssa Wilson RN - 10/17/2023 9:20 AM EDT Patient calls and states that she had labs done on 10/04/2023 that were ordered by [facility]. Patient states that she was told by [facility] doctor that PCP needed to review these labs. Patient asking if Shahriar can review these labs and advise? Patient reports that she has been struggling with exhaustion and that she is running on empty. 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 Patient wondering if there is any issues with the labs that were done that reflects this? Please review and advise, Alyssa Wilson RN documented in this encounterSelect [facility]06-13-2024 Telephone encounter Note * Telephone Encounter - Willow Amaro OCCA - 10/18/2023 8:10 AM EDT TC no answer. Left VM to return call. ADRYAN Bright [facility]06-12-2024 Telephone encounter Note* Telephone Encounter - Shahriar Brown APRN.CNP - 10/17/2023 6:30 PM EDT Liver enzymes are at baseline and stable. Kidney function good. Was there something specific I was to be reviewing? That is all that was scanned in. Other blood work should be reviewed by ordering provider. Thank you Shahriar Brown APRN.MOLD MAKING SUPERVISOR [facility]06-12-2024 Telephone encounter Note* Telephone Encounter - Alyssa Wilson RN - 10/17/2023 9:20 AM EDT Patient calls and states that she had labs done on 10/04/2023 that were ordered by [facility]. Patient states that she was told by [facility] doctor that PCP needed to review these labs. Patient asking if Shahriar can review these labs and advise? Patient reports that she has been struggling with exhaustion and that she is running on empty. 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 Patient wondering if there is any issues with the labs that were done that reflects this? Please review and advise, Alyssa Wilson RN [facility]06-10-2024 Telephone encounter Note* Telephone Encounter - Reyna Lamb RN - 10/15/2023 8:50 AM EDT Pt called in and reports she has a mole on her arm that she has had for years, that is now red an irritated. She reports that it is a raised mole. Pt denies injuring it on anything, but states she wears a CPAP at night and doesn't know if it could have gotten caught on that. Pt scheduled with Anabela HAWK tomorrow at 1040 am. [facility]06-10-2024 Miscellaneous Notes* Telephone Encounter - Reyna Lamb RN - 10/15/2023 8:50 AM EDT Pt called in and reports she has a mole on her arm that she has had for years, that is now red an irritated. She reports that it is a raised mole. Pt denies injuring it on anything, but states she wears a CPAP at night and doesn't know if it could have gotten caught on that. Pt scheduled with Anabela HAWK tomorrow at 1040 am. documented in this encounterSelect [facility]05-23-2024 Nurse Note* Nursing Notes - Agnieszka Low RN - 09/27/2023 3:06 PM EDTSummary: avs Patient verbalize understanding of instructions, saline lock removed, catheter intact, family to transport home [facility]05-23-2024 Miscellaneous Notes* Nursing Notes - Agnieszka Low RN - 09/27/2023 3:06 PM EDTSummary: avs Patient verbalize understanding of instructions, saline lock removed, catheter intact, family to transport home * Nursing Notes - Derrell Sorto RN - 09/27/2023 6:55 AM EDT Pt arrives to room 2430 in IPR for AF RFA. ECG completed. IV started in L arm. Labs drawn and sent.0.9 NS IVF initiated @ 20mL/ hr per pump. Pt prep completed. Valuables given to sister. Clothes secured in room. Questions about procedure answered. Family brought to bedside. Bed in low position, side rail up x2 and call light given to pt. Tele monitor shows NSR. [facility] in [facility]U [facility] Discharge instructions* Discharge Instr - Activity* MARCO A Hicks - 09/27/2023 10:48 AM EDT Post Ablation Activity Your activity is restricted only as indicated by your physician. Please refer to education for ablation and other care recommendations. - No driving for 24 hours - Keep incision dry - Limit bending at the waist for 48 hours - May resume regular activity in 1-2 weeks unless otherwise notified - Return to work in 1 week - No tub baths or hot tub for 2 weeks or until groin site is healed - No lifting greater than 10-15 pounds for 1 week. Rest for 24 hours after you are home. You should have someone with you to help you the first night you are home. DO NOT drive for 24 hours. DO NOT make any important decisions for 24 hours. DO NOT work around the stove, machinery or power equipment for 24 hours. * Discharge Instr - Diet* MARCO A Hicks - 09/27/2023 10:48 AM EDT Diet: Cardiac 4gm NA Low sodium, low fat, low cholesterol, caffeine controlled. Sodium restricted to 4 grams. * Discharge Instr - Notify* MARCO A Hicks - 09/27/2023 10:48 AM EDT Images from the original note were not included. NOTIFY PHYSICIAN BLEEDING/BRUISING -If severe bleeding, apply pressure -Increased bleeding from site -Increased bruising or hematoma Chest pain or shortness of breath Respiratory Changes Call your doctor or nurse if you have shortness of breath that gets worse -Cough that gets worse -Coughing up blood Stroke Symptoms Call 911 if you suddenly have any of these signs of a stroke: -Numbness or muscle weakness -Trouble swallowing -Problems talking -Dizziness or feeling unsteady -Severe headache -Confusion SYMPTOMS OF DVT DVT = Deep Vein Thrombus, or Blood Clot -any tender, swollen, or reddened areas from your groin to your heels. -numbness or tingling in groin or calf -the skin on your leg looks pale or blue or it feels cold to touch -any shortness of breath -chest pain -fever or chills NAUSEA: When you are nauseated, you may feel weak and sweaty and notice a lot of saliva in your mouth. Nausea often leads to vomiting. Most of the time you do not need to worry about nausea and vomiting, butthey can be signs of other illnesses. The doctor has checked you carefully, but problems can develop later. If you notice any problems ornew symptoms, get medical treatment right away. Follow-up care is a petersen part of your treatment and safety. Be sure to make and go to all appointments, and call your doctor if you are having problems. It's also a good idea to know your test resultsand keep a list of the medicines you take. How can you care for yourself at home? To prevent dehydration, drink plenty of fluids, enough so that your urine is light yellow or clear like water. Choose water and other caffeine-free clear liquids until you feel better. If you have kidney, heart, or liver disease and have to limit fluids, talk with your doctor before you increase the amount of fluids you drink. Rest in bed until you feel better. When you are able to eat, try clear soups, mild foods, and liquids until all symptoms are gone for 12 to 48 hours. Other good choices include dry toast, crackers, cooked cereal, and gelatin dessert, such as Jell-O. When should you call for help? Call 911 anytime you think you may need emergency care. For example, call if: You passed out (lost consciousness) Call your doctor now or seek immediate medical care if: You have symptoms of dehydration, such as: Dry eyes and a dry mouth Passing only a little dark urine Feeling thirstier than usual You have new or worsening belly pain You have a new or higher fever You vomit blood or what looks like coffee grounds Watch closely for changes in your health, and be sure to contact your doctor if: You have on going nausea and vomiting Your vomiting gets worse Your vomiting last longer than 2 days You are not getting better as expected Where can you learn more? Go to [email or web address]. * Discharge Instr - Wound Care* MARCO A Hicks - 09/27/2023 10:48 AM EDT Catheter site care You can remove your bandages the day after the procedure. You may shower 24 to 48 hours after the procedure, if your doctor okays it. Pat the incision dry. Do not soak the catheter site until it is healed. Don't take a bath for 1 week, or until your doctor tells you it is okay. Watch for bleeding from the site. A small amount of blood (up to the size of a quarter) on the bandage can be normal. If you are bleeding, lie down and press on the area for 15 minutes to try to make it stop. If the bleeding does not stop, call your doctor or seek immediate medical care. documented in this encounterOSU [facility]* Nursing Notes - Derrell Sorto RN - 09/27/2023 6:55 AM EDT Pt arrives to room 2430 in IPR for AF RFA. ECG completed. IV started in L arm. Labs drawn and sent.0.9 NS IVF initiated @ 20mL/ hr per pump. Pt prep completed. Valuables given to sister. Clothes secured in room. Questions about procedure answered. Family brought to bedside. Bed in low position, side rail up x2 and call light given to pt. Tele monitor shows NSR. [facility]05-23-2024 History and physical note* Pat Moe Turner, [employer] FORMER-MOLD MAKING SUPERVISOR - 09/27/2023 6:22 AM EDT Images from the original note were not included. Chief Complaint Ablation HPI Cassia Holland is a 58 y.o. female with history of CAD s/p KRISTI to LAD and D1 in 12/2022, DM, HTN, HERMILO, interstitial lung disease, lupus, mixed connective tissue disease, Raynaud disease, fibromyalgia, Graves disease and atrial fibrillation. She has had paroxysmal episodes of symptomatic Afib without requiring cardioversion. She is anticoagulated with eliquis. Ms. Holland was seen in EP clinic in April where treatment options were discussed and it was decided to proceed with ablation. She presents today for procedure. Patient Active Problem List Diagnosis Cervicalgia Fibromyalgia Diabetes Graves disease Hypertension Interstitial lung disease Lupus Mixed connective tissue disease Raynaud disease Paroxysmal atrial fibrillation Atherosclerosis of samish coronary artery of samish heart with angina pectoris Past Medical History: Diagnosis Date Diabetes mellitus Essential hypertension, benign No past surgical history on file. Medications Prior to Admission Medication Sig Dispense Refill Last Dose budesonide 0.5 MG/2ML nebulizer suspension Inhale 4 mL 2 times daily. 09/26/2023 carveDILOL 12.5 MG tablet Take 1 tablet by mouth 2 times daily with meals. 09/27/2023 Citalopram 40 MG tablet Take 1 tablet by mouth daily. 09/27/2023 Clopidogrel 75 MG tablet Take 1 tablet by mouth daily. 09/27/2023 Diltiazem 120 MG Cap SR 24HR capsule XL Take 1 capsule by mouth daily. 09/27/2023 Eliquis 5 MG tablet Take 1 tablet by mouth every 12 hours. 09/27/2023 Isosorbide mononitrate 30 MG Tab SR 24 HR tablet XL Take 1 tablet by mouth daily every morning. 09/27/[address] capsule Take 1 capsule by mouth daily. 09/27/2023 Losartan 50 MG tablet Take 1 tablet by mouth daily. 09/26/2023 metFORMIN 500 MG tablet Take 2 tablets by mouth 2 times daily with meals. 09/26/2023 PRAVASTATIN SODIUM PO Take 20 mg by mouth at bedtime as needed. 09/26/2023 Singulair 10 MG tablet 1 tab(s) orally once a day for 30 day(s) 09/27/2023 EPINEPHrine 0.3 MG/0.3ML Solution Auto-injector injection Inject 0.3 mL intramuscularly as needed. Inject contents of 1 autoinjector (0.3 mg) into thigh for allergic reactions (hives, lip/tongue/throat swelling, breathing trouble, lightheadedness, passing out or other symptoms of an allergic reaction) and seek medical attention immediately. If symptoms do not resolve after 5 min and still awaiting medical care, inject contents of a second autoinjector. fluticasone 50 MCG/ACT Suspension nasal spray 2 sprays by Nasal route daily. levalbuterol 45 MCG/ACT Aerosol inhaler Inhale 1 puff every 6 hours as needed for Shortness of Breath. 09/24/[address] Take by mouth 2 times daily as needed for Mild Pain. nitroGLYCERIN 0.[address] 1 tablet under the tongue if needed every 5 minutes for sofie...(REFER TO PRESCRIPTION NOTES). nystatin [id number] UNIT/GM Powder powder Apply 1 Application topically Three times a day. Ondansetron 4 MG Tab Dispersible tablet Take 1 tablet by mouth Every 6 hours as needed. triamcinolone 0.1 % Cream cream Apply 1 Application topically as needed. Allergies Allergen Reactions Cantaloupe (Diagnostic) Anaphylaxis Other Reaction(s): Angioedema Levofloxacin Rash Sulfa Antibiotics Hives Social History Socioeconomic History Marital status: Social Determinants of Health Financial Resource Strain: Patient Declined (03/12/2023) Received from [facility] Overall Financial Resource Strain (CARDIA) Difficulty of Paying Living Expenses: Patient declined Food Insecurity: Patient Declined (03/12/2023) Received from [facility] Hunger Vital Sign Worried About Running Out of Food in the Last Year: Patient declined Ran Out of Food in the Last Year: Patient declined Transportation Needs: No Transportation Needs (03/12/2023) Received from [facility] PRAPARE - Transportation Lack of Transportation (Medical): No Lack of Transportation (Non-Medical): No Physical Activity: Insufficiently Active (03/12/2023) Received from [facility] Exercise Vital Sign Days of Exercise per Week: 3 days Minutes of Exercise per Session: 30 min Stress: No Stress Concern Present (03/12/2023) Received from [facility] [place] [employer] - Occupational Stress Questionnaire Feeling of Stress : Not at all Social Connections: Unknown (03/12/2023) Received from [facility] Social Connection and Isolation Panel [NHANES] Frequency of Communication with Friends and Family: More than three times a week Frequency of Social Gatherings with Friends and Family: Patient declined Attends Restoration Services: Patient declined Active Member of Clubs or Organizations: No Attends Club or Organization Meetings: Never Marital Status: Housing Stability: Low Risk (03/12/2023) Received from [facility] Housing Stability Vital Sign Unable to Pay for Housing in the Last Year: No Number of Places Lived in the Last Year: 1 Unstable Housing in the Last Year: No No family history on file. Referring MD: Dr. Manzano PCP Opal VERA MD: Dr. Cleveland Anticoagulation: eliquis Has the patient missed any doses of anticoagulation. Not recently When was the last dose taken. 09/27/2023 [id number]- Vasc score: 4 (CAD, HTN, DM, female). Prior Cardiac testing: Outside echo 02/2023 CT 09/26/2023 1. No LA, RA or SUKH thrombus. 2. Normal pulmonary venous anatomy. 3. Coronary calcification with evidence of coronary stents. 4. Multiple hilar and mediastinal lymph adenopathy which could be inflammatory, infectious, neoplastic or non-specific. 5. Bronchiectatic changes with peribronchial scaring in the bases of the lungs. Review of System Constitutional: Negative for fever, weight loss, weight gain and reports malaise/fatigue. Skin: Negative. HEENT: Negative. Cardiovascular: + for leg swelling. Negative for palpitations, chest pain, dyspnea, orthopnea, and PND. Negative for lightheadedness or syncope. Respiratory: Is not experiencing shortness of breath currently. Gastrointestinal: Negative for abdominal pain, nausea, vomiting, diarrhea, melena, and constipation. Endocrine: Negative for polyuria, polydipsia, heat or cold intolerance. Genitourinary: Negative for frequency or burning with urination. Neurological: Negative for dizziness and headaches. Psychiatric: depression/anxiety Telemetry SR There were no vitals taken for this visit. There is no height or weight on file to calculate BMI. Physical Exam General appearance - alert, LOC x 3, well appearing, and in no distress Neck - supple, no significant adenopathy, carotids upstroke normal bilaterally without bruits. Chest - lungs clear to auscultation, breath sounds equal and symmetric, no rhonchi, rales or wheezes, no accessory muscle use Heart - regular rate and rhythm, S1 and S2 normal, no murmurs, clicks, gallops or rubs, normal bilateral carotid upstroke without bruits, no JVD Abdomen - soft, nontender, nondistended, no masses or organomegaly, bowel sounds present x 4 quadrants. Extremities - peripheral pulses normal, no pedal edema, no clubbing or cyanosis Skin - normal coloration and turgor, no rashes, no suspicious skin lesions noted Lab Results Component Value Date SODIUM 134 (L) 09/26/2023 POTASSIUM 4.3 09/26/2023 CHLORIDE 102 09/26/2023 CO2 24 09/26/2023 BUN 14 09/26/2023 CREATSERUM 0.56 09/26/2023 Lab Results Component Value Date WBC 3.40 (L) 09/26/2023 HGB 10.7 (L) 09/26/2023 HCT 34.1 (L) 09/26/2023 PLATELET 165 09/26/2023 MCV 94.5 09/26/2023 No results found for: INR Assessment and Plan Atrial Fibrillation: Proceed with ablation with routine post procedure orders. Continue eliquis. Associated attestation - Ya Cleveland MD - 09/27/2023 8:38 AM EDT Attending Physician Note I have personally interviewed and examined this patient with the [employer] on 09/27/23. I have reviewed the history and examination and edited these in the note above. I agree with the medical decision and components of the note as edited by me. Patient is alert and oriented and VS stable. She presents with history of Graves DZ, fibromyalgia, DM, HERMILO and PAF for elective AF ablation. We plan PFA with 3D mapping. The procedure was explained with indication, risks and benefits and she consents to proceed. She has incidental findings of smallnon-calcified lymph nodes which will need follow-up. Ya Cleveland MD, [facility] Yudy Sanabria Chair in Cardiac Electrophysiology Professor of Clinical Medicine [facility]05-23-2024 History and physical note* Pat Abhi Turner, [employer] SUPERVISOR - 09/27/2023 6:22 AM EDT Images from the original note were not included. Chief Complaint Ablation HPI Cassia Holland is a 58 y.o. female with history of CAD s/p KRISTI to LAD and D1 in 12/2022, DM, HTN, HERMILO, interstitial lung disease, lupus, mixed connective tissue disease, Raynaud disease, fibromyalgia, Graves disease and atrial fibrillation. She has had paroxysmal episodes of symptomatic Afib without requiring cardioversion. She is anticoagulated with eliquis. Ms. Holland was seen in EP clinic in April where treatment options were discussed and it was decided to proceed with ablation. She presents today for procedure. Patient Active Problem List Diagnosis Cervicalgia Fibromyalgia Diabetes Graves disease Hypertension Interstitial lung disease Lupus Mixed connective tissue disease Raynaud disease Paroxysmal atrial fibrillation Atherosclerosis of samish coronary artery of samish heart with angina pectoris Past Medical History: Diagnosis Date Diabetes mellitus Essential hypertension, benign No past surgical history on file. Medications Prior to Admission Medication Sig Dispense Refill Last Dose budesonide 0.5 MG/2ML nebulizer suspension Inhale 4 mL 2 times daily. 09/26/2023 carveDILOL 12.5 MG tablet Take 1 tablet by mouth 2 times daily with meals. 09/27/2023 Citalopram 40 MG tablet Take 1 tablet by mouth daily. 09/27/2023 Clopidogrel 75 MG tablet Take 1 tablet by mouth daily. 09/27/2023 Diltiazem 120 MG Cap SR 24HR capsule XL Take 1 capsule by mouth daily. 09/27/2023 Eliquis 5 MG tablet Take 1 tablet by mouth every 12 hours. 09/27/2023 Isosorbide mononitrate 30 MG Tab SR 24 HR tablet XL Take 1 tablet by mouth daily every morning. 09/27/[address] capsule Take 1 capsule by mouth daily. 09/27/2023 Losartan 50 MG tablet Take 1 tablet by mouth daily. 09/26/2023 metFORMIN 500 MG tablet Take 2 tablets by mouth 2 times daily with meals. 09/26/2023 PRAVASTATIN SODIUM PO Take 20 mg by mouth at bedtime as needed. 09/26/2023 Singulair 10 MG tablet 1 tab(s) orally once a day for 30 day(s) 09/27/2023 EPINEPHrine 0.3 MG/0.3ML Solution Auto-injector injection Inject 0.3 mL intramuscularly as needed. Inject contents of 1 autoinjector (0.3 mg) into thigh for allergic reactions (hives, lip/tongue/throat swelling, breathing trouble, lightheadedness, passing out or other symptoms of an allergic reaction) and seek medical attention immediately. If symptoms do not resolve after 5 min and still awaiting medical care, inject contents of a second autoinjector. fluticasone 50 MCG/ACT Suspension nasal spray 2 sprays by Nasal route daily. levalbuterol 45 MCG/ACT Aerosol inhaler Inhale 1 puff every 6 hours as needed for Shortness of Breath. 09/24/[address] Take by mouth 2 times daily as needed for Mild Pain. nitroGLYCERIN 0.[address] 1 tablet under the tongue if needed every 5 minutes for sofie...(REFER TO PRESCRIPTION NOTES). nystatin [id number] UNIT/GM Powder powder Apply 1 Application topically Three times a day. Ondansetron 4 MG Tab Dispersible tablet Take 1 tablet by mouth Every 6 hours as needed. triamcinolone 0.1 % Cream cream Apply 1 Application topically as needed. Allergies Allergen Reactions Cantaloupe (Diagnostic) Anaphylaxis Other Reaction(s): Angioedema Levofloxacin Rash Sulfa Antibiotics Hives Social History Socioeconomic History Marital status: Social Determinants of Health Financial Resource Strain: Patient Declined (03/12/2023) Received from [facility] Overall Financial Resource Strain (CARDIA) Difficulty of Paying Living Expenses: Patient declined Food Insecurity: Patient Declined (03/12/2023) Received from [facility] Hunger Vital Sign Worried About Running Out of Food in the Last Year: Patient declined Ran Out of Food in the Last Year: Patient declined Transportation Needs: No Transportation Needs (03/12/2023) Received from [facility] PRAPARE - Transportation Lack of Transportation (Medical): No Lack of Transportation (Non-Medical): No Physical Activity: Insufficiently Active (03/12/2023) Received from [facility] Exercise Vital Sign Days of Exercise per Week: 3 days Minutes of Exercise per Session: 30 min Stress: No Stress Concern Present (03/12/2023) Received from [facility] [place] [employer] - Occupational Stress Questionnaire Feeling of Stress : Not at all Social Connections: Unknown (03/12/2023) Received from [facility] Social Connection and Isolation Panel [NHANES] Frequency of Communication with Friends and Family: More than three times a week Frequency of Social Gatherings with Friends and Family: Patient declined Attends Restoration Services: Patient declined Active Member of Clubs or Organizations: No Attends Club or Organization Meetings: Never Marital Status: Housing Stability: Low Risk (03/12/2023) Received from [facility] Housing Stability Vital Sign Unable to Pay for Housing in the Last Year: No Number of Places Lived in the Last Year: 1 Unstable Housing in the Last Year: No No family history on file. Referring MD: Dr. Manzano PCP Opal VERA MD: Dr. Cleveland Anticoagulation: eliquis Has the patient missed any doses of anticoagulation. Not recently When was the last dose taken. 09/27/2023 [id number]- Vasc score: 4 (CAD, HTN, DM, female). Prior Cardiac testing: Outside echo 02/2023 CT 09/26/2023 1. No LA, RA or SUKH thrombus. 2. Normal pulmonary venous anatomy. 3. Coronary calcification with evidence of coronary stents. 4. Multiple hilar and mediastinal lymph adenopathy which could be inflammatory, infectious, neoplastic or non-specific. 5. Bronchiectatic changes with peribronchial scaring in the bases of the lungs. Review of System Constitutional: Negative for fever, weight loss, weight gain and reports malaise/fatigue. Skin: Negative. HEENT: Negative. Cardiovascular: + for leg swelling. Negative for palpitations, chest pain, dyspnea, orthopnea, and PND. Negative for lightheadedness or syncope. Respiratory: Is not experiencing shortness of breath currently. Gastrointestinal: Negative for abdominal pain, nausea, vomiting, diarrhea, melena, and constipation. Endocrine: Negative for polyuria, polydipsia, heat or cold intolerance. Genitourinary: Negative for frequency or burning with urination. Neurological: Negative for dizziness and headaches. Psychiatric: depression/anxiety Telemetry SR There were no vitals taken for this visit. There is no height or weight on file to calculate BMI. Physical Exam General appearance - alert, LOC x 3, well appearing, and in no distress Neck - supple, no significant adenopathy, carotids upstroke normal bilaterally without bruits. Chest - lungs clear to auscultation, breath sounds equal and symmetric, no rhonchi, rales or wheezes, no accessory muscle use Heart - regular rate and rhythm, S1 and S2 normal, no murmurs, clicks, gallops or rubs, normal bilateral carotid upstroke without bruits, no JVD Abdomen - soft, nontender, nondistended, no masses or organomegaly, bowel sounds present x 4 quadrants. Extremities - peripheral pulses normal, no pedal edema, no clubbing or cyanosis Skin - normal coloration and turgor, no rashes, no suspicious skin lesions noted Lab Results Component Value Date SODIUM 134 (L) 09/26/2023 POTASSIUM 4.3 09/26/2023 CHLORIDE 102 09/26/2023 CO2 24 09/26/2023 BUN 14 09/26/2023 CREATSERUM 0.56 09/26/2023 Lab Results Component Value Date WBC 3.40 (L) 09/26/2023 HGB 10.7 (L) 09/26/2023 HCT 34.1 (L) 09/26/2023 PLATELET 165 09/26/2023 MCV 94.5 09/26/2023 No results found for: INR Assessment and Plan Atrial Fibrillation: Proceed with ablation with routine post procedure orders. Continue eliquis. Associated attestation - Ya Cleveland MD - 09/27/2023 8:38 AM EDT Attending Physician Note I have personally interviewed and examined this patient with the [employer] on 09/27/23. I have reviewed the history and examination and edited these in the note above. I agree with the medical decision and components of the note as edited by me. Patient is alert and oriented and VS stable. She presents with history of Graves DZ, fibromyalgia, DM, HERMILO and PAF for elective AF ablation. We plan PFA with 3D mapping. The procedure was explained with indication, risks and benefits and she consents to proceed. She has incidental findings of smallnon-calcified lymph nodes which will need follow-up. Ya Cleveland MD, [facility] Yudy Sanabria Chair in Cardiac Electrophysiology Professor of Clinical Medicine [facility] Telephone encounter Note* Telephone Encounter - Ivett Barragan MA - 09/17/2023 11:23 AM EDT Pharmacy request denied. Patient needs to contact office for refills. Ivett Barragan MA [facility]05-13-2024 Miscellaneous Notes* Telephone Encounter - Ivett Barragan MA - 09/17/2023 11:23 AM EDT Pharmacy request denied. Patient needs to contact office for refills. Ivett Barragan MA [facility] Telephone encounter Note * Telephone Encounter - Deepti Hedrick LPN - 09/07/2023 1:57 PM EDT Patient has been identified by name and date of : Yes, Patient phones for refill(s): Requested Prescriptions Pending Prescriptions Disp Refills ferrous sulfate 325 mg (65 mg iron) tablet 60 tablet 1 Sig: Take 1 tablet by mouth two times a day with meals. Date of last office visit in primary care: 08/09/2023 Date of next office visit in primary care: 11/09/2023 Please advise. Thank you. Deepti Hedrick LPN. [facility]05-03-2024 Miscellaneous Notes* Telephone Encounter - Deepti Hedrick LPN - 09/07/2023 1:57 PM EDT Patient has been identified by name and date of : Yes, Patient phones for refill(s): Requested Prescriptions Pending Prescriptions Disp Refills ferrous sulfate 325 mg (65 mg iron) tablet 60 tablet 1 Sig: Take 1 tablet by mouth two times a day with meals. Date of last office visit in primary care: 08/09/2023 Date of next office visit in primary care: 11/09/2023 Please advise. Thank you. Deepti Hedrick LPN. [facility] History of Present illness Narrative* Shahriar Brown APRN.[employer] MA[employer] SUPERVISOR - 08/09/2023 7:39 AM EDT CC: Patient presents with: Recheck: 4 week BP follow up HPI Cassia Holland is a 57 year old female who presents today for blood pressure follow up. HTN: Ms. Holland indicates that she is feeling well and denies any symptoms referable to elevated blood pressure. Specifically denies headache, chest pain, palpitations, and peripheral edema. Patient denies any side effects of her medication(s) and is compliant with their regimen. She does check BP'saway from this office with average BP's in the 150s/80s range prior to medications and will be 130s/60s after her medications. Has not taken her meds yet today. Sees [facility] and next appointment is in a week. Last 3 Encounter BP Readings: Date: BP: 08/09/2023 142/86 07/05/2023 160/88 06/21/2023 138/78 On prednisone for 30 days for her shortness of breath as ordered by pulmonology. Is starting to feel better but recently lost her job. Blood sugars have been controlled with highest in the 140s. Anemia: Taking iron supplement twice a day and tolerating well. Started this almost 4 weeks ago. Last blood count check showed anemia as stable. REVIEW OF SYSTEMS See HPI PAST MEDICAL [...] Levaquin [Levofloxacin], and Sulfa (Sulfonamide Antibiotics) MEDICATIONS isosorbide mononitrate ER (IMDUR) 30 mg 24 hr tablet^Take 30 mg by mouth every morning.^Disp: ^Rfl: dilTIAZem CD (CARDIZEM CD) 180 mg 24 hr capsule^Take 120 mg by mouth two times a day. 120 mg BID^Disp: ^Rfl: losartan (COZAAR) 100 mg tablet^Take 0.5 tablets by mouth once daily.^Disp: 30 tablet^Rfl: 5 hydroCHLOROthiazide 25 mg tablet^take 1 tablet by mouth once daily^Disp: 30 tablet^Rfl: 4 predniSONE (DELTASONE) 20 mg tablet^Take 20 mg by mouth once daily.^Disp: ^Rfl: ferrous sulfate 325 mg (65 mg iron) tablet^Take 1 tablet by mouth two times a day with meals.^Disp:60 tablet^Rfl: 1 metFORMIN ER (GLUCOPHAGE XR) 500 mg 24 hr tablet^take 2 tablets by mouth twice a day with meals^Disp: 360 tablet^Rfl: 1 molnupiravir (LAGEVRIO, EUA,) 200 mg capsule^Take 800 mg by mouth two times a day.^Disp: ^Rfl: naproxen (NAPROSYN) 500 mg tablet^take 1 tablet by mouth twice a day with food if needed for PAIN/INFLAMMATION^Disp: 30 tablet^Rfl: 1 lansoprazole (PREVACID) 30 mg capsule^take 1 capsule by mouth once daily , 1/2 HOUR BEFORE BREAKFAST^Disp: 90 capsule^Rfl: 3 fluticasone (FLONASE) 50 mcg/actuation nasal spray^instill 2 sprays into each nostril once daily^Disp: 16 g^Rfl: 2 budesonide (PULMICORT) 1 mg/2 mL nebulizer solution^instill contents of 1 vial IN NASAL SALINE WASHES AND USE TWICE DAILY^Disp: 120 mL^Rfl: 2 citalopram (CELEXA) 20 mg tablet^take 1 tablet by mouth once daily^Disp: 30 tablet^Rfl: 5 benzonatate (TESSALON PERLES) 100 mg capsule^Take 2 capsules by mouth three times a day as needed for cough.^Disp: 60 capsule^Rfl: 0 montelukast (SINGULAIR) 10 mg tablet^take 1 tablet by mouth once daily^Disp: 90 tablet^Rfl: 3 apixaban (ELIQUIS) 5 mg tab(s)^Take 5 mg by mouth two times a day.^Disp: ^Rfl: pravastatin sodium (PRAVASTATIN ORAL)^Take by mouth.^Disp: ^Rfl: clopidogrel (PLAVIX) 75 mg tablet^take 4 tablets by mouth on day 1 then 1 tablet by mouth once daily after^Disp: ^Rfl: carvedilol (COREG) 6.25 mg tablet^Take 25 mg by mouth two times a day with meals.^Disp: ^Rfl: nystatin (MYCOSTATIN) powder^Apply 1 application to affected area three times daily.^Disp: 30 g^Rfl: 3 EPINEPHrine (EPIPEN) 0.3 mg/0.3 mL auto-injector^Use per directed for severe allergic reaction^Disp: 2 Each^Rfl: 1 lancets (tenXerTOUCH DELICA PLUS LANCET) 33 gauge^Test blood sugar(s) 1 times daily. Dx: Type 2 DM - Controlled E11.9 Insulin: No^Disp: 100 Each^Rfl: 11 blood sugar diagnostic (tenXerTOUCH ULTRA TEST) test strip^use 1 TEST STRIP [...] Currently Drug use: Never PHYSICAL EXAM BP 142/86 Pulse 80 Resp 16 Wt 80.7 kg (178 lb) SpO2 98% BMI 31.04 kg/m General Appearance: well appearing, in no acute distress, alert Eyes: conjunctiva pink and moist, no icterus, sclera white, non-injected Lungs: Lungs clear to auscultation. No wheezing, rhonchi, rales. Heart: RRR without murmur, gallop, or rubs. No ectopy Health maintenance reviewed with patient: BP Controlled (<130/80) Never done Diabetic Foot Exam due on 03/07/2022 Behavioral Health Screening Never done Colorectal Cancer Screening due on 06/26/2023 DTaP,Tdap,Td Vaccine(1 - Tdap) due on 09/15/2023 Hepatitis B Vaccine(1 of 3 - 19+ 3-dose series) due on 09/15/2023 HPV Testing due on 09/15/2023 HIV Screening due on 09/15/2023 Shingrix Vaccine(1 of 2) due on 09/15/2023 Pneumococcal Vaccine(1 of 2 - PCV) due on 09/15/2023 Covid-19 Vaccine( - season) due on 03/28/2024 Dilated Retinal Exam due on 10/24/2023 Mammogram Screening due on 11/10/2023 Urine Albumin:Creatinine Ratio due on 12/08/2023 HbA1C due on 12/12/2023 Influenza Vaccine(Season Ended) due on 01/06/2024 LDL Cholesterol due on 06/13/2024 Annual PCP Team Chronic Disease Visit due on 07/04/2024 Hepatitis C Screening Completed Pap Testing Discontinued DATA REVIEWED: Most recent labs ASSESSMENT/PLAN: 1. Anemia, unspecified type - ICD9: 285.9, ICD10: D64.9 (primary diagnosis) Continue current treatment Has upcoming appointment with hematology liver specialist in a few weeks - CBC + DIFF 2. Hypertension, unspecified type - ICD9: 401.9, ICD10: I10 - Improving control - Continue current medications and recommendations by cardiology - Recommend home blood pressure monitoring, to bring results to next visit - Encouraged sodium restriction, DASH or Mediterranean diet - Recommend regular aerobic exercise 3. Type 2 diabetes mellitus without complication, without long-term current use of insulin (HCC) - ICD9: 250.00, ICD10: E11.9 - Controlled - Continue current medications - Blood glucose monitoring on a once daily schedule - Counseled on healthy diet and regular exercise - Discussed need for and benefit of weight loss. BMI 31.04 kg/(m^2) - patient to continue close monitoring of blood sugars while on prednisone and call if blood sugarsare consistently greater then 150 to start sliding scale insulin Prescription instructions reviewed with patient as applicable. Potential red flag symptoms discussed with the patient. Reviewed appropriate action plan to take if red flag symptoms occur. Patient agreeable to treatment plan. Shahriar Brown APRN.CNP documented in this encounterSelect [facility]24 Miscellaneous Notes* Telephone Encounter - Julieta Campuzano Ma - 07/26/2023 3:22 PM EDT Left detailed message on [employer]. * Telephone Encounter - Shahriar Brown APRN.CNP - 07/26/2023 12:23 PM EDT Patient to monitor fasting blood sugar while on prednisone and call if continuously greater than 150-200 for sliding scale insulin order. Thank you Shahriar Brown APRN.CNP * Telephone Encounter - Marvel Rice RN - 07/26/2023 11:54 AM EDT Patient returns call and provider message reviewed. Patient reports she has never been on insulin. She hasn't recently been monitoring BS but will start. Marvel Rice, RN * Telephone Encounter - Julieta Campuzano Ma - 07/26/2023 11:16 AM EDT Left message for return call. * Telephone Encounter - Shahriar Brown APRN.CNP - 07/26/2023 11:12 AM EDT She will need to monitor glucose closely at home. She very well might need sliding scale insulin asthe prednisone will increase her glucose. Has she ever done insulin before? How have her blood sugars currently been? Thank you Shahriar Older, [employer].MOLD MAKING SUPERVISOR * Telephone Encounter - Marvel Rice RN - 07/25/2023 11:35 AM EDT Patient returns call and reports that Dr. Mason ordered prednisone 20 mg daily x 30 days to starttoday. Marvel Rice RN * Telephone Encounter - Reyna Lamb RN - 07/25/2023 9:10 AM EDT Called and left a detailed voicemail notifying patient of providers message. Clinic phone number was left for the patient call back and answer the providers questions. Reyna Lamb RN * Telephone Encounter - Shahriar Brown APRN.CNP - 07/25/2023 8:16 AM EDT I have heard nothing from mary office. How much is she taking and for how long? .Thank you Shahriar Brown APRN.ANTHONY * Telephone Encounter - Reyna Lamb RN - 07/24/2023 11:30 AM EDT Pt called in and report she just saw Dr Hardy and they want to put her on Prednisone for lung issues from when she had Covid in April. She states his office will be getting in touch with providers office as Pt is a DM to see what provider would like to do about her medication. Pt is only on Metformin. documented in this encounterSelect [facility]03-21-2024 Miscellaneous Notes* Telephone Encounter - Shahriar Brown APRN.CNP - 07/26/2023 2:20 PM EDT See other TE. Shahriar Brown APRN.CNP * Telephone Encounter - Marisabel Sarabia RN - 07/26/2023 12:42 PM EDT Teresa calling from Dr. Mason's office to update pt's PCP team that patient has been put on prednisone 20 mg daily for 30 days. Due to pt having diagnosis of diabetes they wanted to be sure PCP team was aware and to advise pt accordingly. Details will be faxed to Shahriar Brown CNP for review. Thank you. documented in this encounterSelect [facility]03-14-2024 Miscellaneous Notes* Telephone Encounter - Gina Yanez MA - 07/19/2023 11:34 AM EDT Spoke with pt she is still on the Eliquis at least for another week, but pharmacy has her on automatic refills and pharmacy actually requested the refill on Naproxen. Gina Yanez MA * Telephone Encounter - Luz Cordoba APRN.CNP - 07/18/2023 5:59 PM EDT If she is still taking the Apixaban I would recommend against routine use of Naproxen due to high risk for bleeding Luz Cordoba APRN.CNP * Telephone Encounter - Diamond Vaughn LPN - 07/18/2023 11:41 AM EDT Patient has been identified by name and date of : Yes Patient phones for refill(s): Requested Prescriptions Pending Prescriptions Disp Refills naproxen (NAPROSYN) 500 mg tablet [Pharmacy Med Name: NAPROXEN 500 MG TABLET] 30 tablet 1 Sig: take 1 tablet by mouth twice a day with food NEEDED FOR PAIN or inflammation Date of last office visit in primary care: 07/05/2023 Date of next office visit in primary care: 08/09/2023 Please advise. Thank you. Diamond Vaughn LPN. documented in this encounterSelect [facility]03-08-2024 Miscellaneous Notes* Telephone Encounter - Julieta Campuzano Ma - 07/13/2023 2:53 PM EST Left detailed message on [employer] * Addendum Note - Shahriar Brown APRN.CNP - 07/13/2023 2:32 PM ESTAddended by: SHAHRIAR BROWN on: 07/13/2023 02:32 PM Modules accepted: Orders * Telephone Encounter - Shahriar Brown APRN.CNP - 07/13/2023 2:30 PM EST Increase to twice a day and we will recheck blood counts at next appointment and if still low, willconsult to hematology for iron infusions. I sent in a prescription for iron supplement. Take care Shahriar Brown APRN.CNP * Telephone Encounter - Alyssa Wilson RN - 07/13/2023 1:35 PM EST Patient calls and notified of results. Patient calls back and states that she has been taking slo fe once a day. Patient asking if she needs to increase this? Patient has been tolerating symptoms. Alyssa Wilson RN * Telephone Encounter - Julieta Campuzano Ma - 07/13/2023 12:48 PM EST Left detailed message on secure VM. * Telephone Encounter - Shahriar Brown APRN.CNP - 07/13/2023 8:24 AM EST Iron levels remain low but anemia is stable. Has she been taking supplement as ordered? Is she tolerating supplement? Thank you Shahriar Brown APRN.CNP documented in this encounterSelect [facility]03-08-2024 Miscellaneous Notes* Telephone Encounter - Willow Amaro OCCA - 07/13/2023 9:58 AM EST Please see dated 07/07/23. documented in this encounterSelect [facility]03-01-2024 Miscellaneous Notes* Telephone Encounter - Julieta Campuzano Ma - 07/06/2023 10:02 AM EST Patient notified. * Telephone Encounter - Shahriar Brown APRN.CNP - 07/06/2023 9:47 AM EST Take iron supplement as discussed. Will recheck blood counts next week. For any abnormal bleeding or worsening of symptoms Thank you Shahriar Brown APRN.CNP * Telephone Encounter - Julieta Campuzano Ma - 07/06/2023 9:33 AM EST Hemoglobin was only 8.4 not A1C. * Telephone Encounter - Shahriar Brown APRN.CNP - 07/06/2023 9:22 AM EST We just did an A1c 3 weeks ago that was 6.4. Please get blood work levels to review. Thank you Shahriar Brown APRN.ANTHONY * Telephone Encounter - Alyssa Wilson RN - 07/06/2023 8:21 AM EST Patient calls and states that she saw [facility] yesterday and they did labs on her. Patient states that her Hgb was 8.4. Patient is very concerned about this. Patient continues to feel fatigued. Please review and advise, Alyssa Wilson RN documented in this encounterSelect Medical [facility]02-29-2024 History of Present illness Narrative* Shahriar Brown APRN.ANTHONY - 07/05/2023 8:21 AM EST CC: Patient presents with: Recheck: BP follow up HPI Cassia Holland is a 57 year old female who presents today for follow up. Recurrent sinusitis: Seeing ENT for this now and currently on doxycycline. Feels she has had some improvement and doesn't feel ill with fatigue, fever, chills, headaches, wheezing, or shortness of breath. Still with green sinus drainage that results in a cough. HTN and A-fib: Ms. Holland indicates that she is feeling well and denies any symptoms referable to elevated blood pressure. Specifically denies headache, chest pain, palpitations, dyspnea, and peripheral edema. Had blood pressure of 80s/40s which resulted in getting lightheaded. Cardiology is having her hold her losartan and decreased diltiazem. Has ablation scheduled for next month Last 3 Encounter BP Readings: Date: BP: 07/05/2023 160/88 06/21/2023 138/78 05/23/2023 147/83[BP Cecily[ DIABETES MELLITUS: Ms. Holland denies excessive thirst [...] a infrequent to not at all basis schedule. Patient's last HgA1C was Hemoglobin A1C (%) Date Value 06/13/2023 6.4 02/28/2023 6.3 05/05/2021 7.3 12/24/2020 9.1 Hemoglobin A1C (POCT) (%) Date Value 01/19/2022 7.2 10/13/2021 8.4 ) Iron deficiency. Is supposed to be taking an iron supplement but only takes it on average once a week. REVIEW OF SYSTEMS See HPI PAST MEDICAL [...] ER (GLUCOPHAGE XR) 500 mg 24 hr tablet^take 2 tablets by mouth twice a day with meals^Disp: 360 tablet^Rfl: 1 isosorbide mononitrate ER (IMDUR) 30 mg 24 hr tablet^Take 30 mg by mouth every morning.^Disp: ^Rfl: molnupiravir (LAGEVRIO, EUA,) 200 mg capsule^Take 800 mg by mouth two times a day.^Disp: ^Rfl: naproxen (NAPROSYN) 500 mg tablet^take 1 tablet by mouth twice a day with food if needed for PAIN/INFLAMMATION^Disp: 30 tablet^Rfl: 1 lansoprazole (PREVACID) 30 mg capsule^take 1 capsule by mouth once daily , 1/2 HOUR BEFORE BREAKFAST^Disp: 90 capsule^Rfl: 3 fluticasone (FLONASE) 50 mcg/actuation nasal spray^instill 2 sprays into each nostril once daily^Disp: 16 g^Rfl: 2 budesonide (PULMICORT) 1 mg/2 mL nebulizer solution^instill contents of 1 vial IN NASAL SALINE WASHES AND USE TWICE DAILY^Disp: 120 mL^Rfl: 2 citalopram (CELEXA) 20 mg tablet^take 1 tablet by mouth once daily^Disp: 30 tablet^Rfl: 5 benzonatate (TESSALON PERLES) 100 mg capsule^Take 2 capsules by mouth three times a day as needed for cough.^Disp: 60 capsule^Rfl: 0 dilTIAZem CD (CARDIZEM CD) 180 mg 24 hr capsule^Take 120 mg by mouth two times a day. 120 mg BID^Disp: ^Rfl: montelukast (SINGULAIR) 10 mg tablet^take 1 tablet [...] by mouth once daily.^Disp: 30 tablet^Rfl: 5 hydroCHLOROthiazide 25 mg tablet^take 1 tablet by mouth once daily^Disp: 30 tablet^Rfl: 4 amLODIPine (NORVASC) 5 mg tablet^take 1 tablet by mouth once daily^Disp: 30 tablet^Rfl: 1 (Patient not taking: Reported on 06/21/2023) carvedilol (COREG) 6.25 mg tablet^Take 25 mg by mouth two times a day with meals.^Disp: ^Rfl: nystatin (MYCOSTATIN) powder^Apply 1 application to affected area three times daily.^Disp: 30 g^Rfl: 3 EPINEPHrine (EPIPEN) 0.3 mg/0.3 mL auto-injector^Use per directed for severe allergic reaction^Disp: 2 Each^Rfl: 1 lancets (tenXerTOUCH DELICA PLUS LANCET) 33 gauge^Test blood sugar(s) [...] Currently Drug use: Never PHYSICAL EXAM BP 160/88 Pulse 84 Resp 16 Wt 83 kg (183 lb) SpO2 99% BMI 31.91 kg/m General Appearance: well appearing, in no acute distress, alert Skin: Skin texture, turgor normal for age; slightly pale Eyes: conjunctiva pink and moist, no icterus, sclera white, non-injected Lungs: Lungs clear to auscultation. No wheezing, rhonchi, rales. Heart: RRR without murmur, gallop, or rubs. No ectopy Health maintenance reviewed with patient: BP Controlled (<130/80) Never done Diabetic Foot Exam due on 03/07/2022 Depression Assessment due on 05/07/2023 Colorectal Cancer Screening due on 06/26/2023 DTaP,Tdap,Td Vaccine(1 - Tdap) due on 09/15/2023 Hepatitis B Vaccine(1 of 3 - 3-dose series) due on 09/15/2023 HPV Testing due on 09/15/2023 HIV Screening due on 09/15/2023 Shingrix Vaccine(1 of 2) due on 09/15/2023 Pneumococcal Vaccine(1 of 2 - PCV) due on 09/15/2023 Influenza Vaccine(1) due on 11/04/2023 Covid-19 Vaccine(3 - 2022- season) due on 03/28/2024 Dilated Retinal Exam due on 10/24/2023 Mammogram Screening due on 11/10/2023 Urine Albumin:Creatinine Ratio due on 12/08/2023 HbA1C due on 12/12/2023 Annual PCP Team Chronic Disease Visit due on 05/23/2024 LDL Cholesterol due on 06/13/2024 Hepatitis C Screening Completed Pap Testing Discontinued DATA REVIEWED: Most recent labs ASSESSMENT/PLAN: 1. Subacute sinusitis, unspecified location - ICD9: 461.9, ICD10: J01.90 (primary diagnosis) - improving with treatment Continue with recommendations by ENT 2. Hypertension, unspecified type - ICD9: 401.9, ICD10: I10 - Uncontrolled - meds being adjusted by cardiology - continue with recommendations by cardiology and follow up in 4 weeks. - Continue current medications - Recommend home blood pressure monitoring, to bring results to next visit - Encouraged sodium restriction, DASH or Mediterranean diet - Recommend regular aerobic exercise 3. Atrial fibrillation, unspecified type (HCC) - ICD9: 427.31, ICD10: I48.91 Stable Continue with current medications and plans for upcoming ablation. 4. Type 2 diabetes mellitus without complication, without long-term current use of insulin (HCC) - ICD9: 250.00, ICD10: E11.9 - Controlled - Continue current medications - Blood glucose monitoring on a once daily schedule - Counseled on healthy diet and regular exercise - Discussed need for and benefit of weight loss. BMI 31.91 kg/(m^2) 5. Anemia, unspecified type - ICD9: 285.9, ICD10: D64.9 Start taking iron supplement regularly along with increasing iron in diet. - will recheck at follow up. If no improvement will need to evaluate possible need for iron infusions. Prescription instructions reviewed with patient as applicable. Potential red flag symptoms discussed with the patient. Reviewed appropriate action plan to take if red flag symptoms occur. Patient agreeable to treatment plan. Shahriar Brown APRN.ANTHONY documented in this encounterSelect [facility]02-16-2024 Miscellaneous Notes* Telephone Encounter - Yanci Phillip RN - 06/22/2023 8:10 AM EST Pt just calling with an update. States she had called yesterday with c/o feeling nauseated all week. Was encouraged to go to [facility] which she did and they sent her to ER. Pt states the ER did lots of testing on her GB and all were negative. She was given an RX for something for nausea but didn't have time to pick it up last night. States this morning she is feeling better. She has an appt with Shahriar Brown on for a BP follow up. Offered an appt with Ivett Dunn for next week but pt declined andstates she will just wait and see Shahriar on the and will call if she gets worse between now and then. documented in this encounterSelect Medical [facility]02-15-2024 History of Present illness Narrative* Rubi Araya PA-C - 06/21/2023 3:07 PM EST This note was created using Quintiqriter. Subjective Cassia Holland is a 57 year old female. HPI Presents with right upper quadrant abdominal pain, nausea and fever for 4 days. States her fevers have been in the high 99's. She has been very nauseated. Denies vomiting. No diarrhea. She has had pain in this area before and does have liver fibrosis. She also has diabetes and lupus as well as coronary artery disease. She did have a stress test this morning. She states pain and nausea had not improved so came in for evaluation. No chest pain or shortness of breath. She had been taking some Tylenol [id number]-[id number]. She still does have her gallbladder. Patient also had labs about a week ago which showed her to have some acute anemia, she had not had repeat test for this yet. Hemoglobin was 9 when it is typically 12-13. She denies blood in stools. No lightheadedness or dizziness. Review of Systems Constitutional: Positive for fever. HENT: Negative. Respiratory: Negative. Cardiovascular: Negative. Gastrointestinal: Positive for abdominal pain and nausea. Negative for diarrhea and vomiting. All other systems reviewed and are negative. PAST MEDICAL HISTORY Diagnosis Date Diabetes (HCC) adult onset Fibromyalgia Graves disease High blood pressure HSV-2 infection Interstitial lung disease (HCC) Lupus (HCC) Mixed connective tissue disease (HCC) Raynaud disease Current Outpatient Medications Medication Sig Dispense Refill metFORMIN ER (GLUCOPHAGE XR) 500 mg 24 hr tablet take 2 tablets by mouth twice a day with meals 360tablet 1 molnupiravir (LAGEVRIO, EUA,) 200 mg capsule Take 800 mg by mouth two times a day. naproxen (NAPROSYN) 500 mg tablet take 1 tablet by mouth twice a day with food if needed for PAIN/INFLAMMATION 30 tablet 1 lansoprazole (PREVACID) 30 mg capsule take 1 capsule by mouth once daily , 1/2 HOUR BEFORE BREAKFAST 90 capsule 3 fluticasone (FLONASE) 50 mcg/actuation nasal spray instill 2 sprays into each nostril once daily 16g 2 budesonide (PULMICORT) 1 mg/2 mL nebulizer solution instill contents of 1 vial IN NASAL SALINE WASHES AND USE TWICE DAILY 120 mL 2 citalopram (CELEXA) 20 mg tablet take 1 tablet by mouth once daily 30 tablet 5 benzonatate (TESSALON PERLES) 100 mg capsule Take 2 capsules by mouth three times a day as needed for cough. 60 capsule 0 dilTIAZem CD (CARDIZEM CD) 180 mg 24 hr capsule Take 120 mg by mouth two times a day. 120 mg BID montelukast (SINGULAIR) 10 mg tablet take 1 [...] by mouth once daily. 30 tablet 5 hydroCHLOROthiazide 25 mg tablet take 1 tablet by mouth once daily 30 tablet 4 carvedilol (COREG) 6.25 mg tablet Take 25 mg by mouth two times a day with meals. nystatin (MYCOSTATIN) powder Apply 1 application to affected area three times daily. 30 g 3 EPINEPHrine (EPIPEN) 0.3 mg/0.3 mL auto-injector Use [...] 4 hours as needed. 1 Inhaler 2 Blood-Glucose Meter Dispense 1 kit 1 Each 0 isosorbide mononitrate ER (IMDUR) 30 mg 24 hr tablet Take 30 mg by mouth every morning. amLODIPine (NORVASC) 5 mg tablet take 1 tablet by mouth once daily (Patient not taking: Reported on06/21/2023) 30 tablet 1 Current Facility-Administered Medications Medication Dose Route Frequency Provider Last Rate Last Admin perflutren lipid microspheres 1.3 mL in NaCl (PF) 0.9% 10 mL injection (DEFINITY) INTRAVENOUS DIRECTED PRN Shahriar Brown APRN.CNP sodium chloride 0.9 % (flush) 10 mL (BD POSIFLUSH) 10 mL INTRAVENOUS DIRECTED PRN Shahriar Brown APRN.ANTHONY PAST SURGICAL HISTORY Procedure Laterality [...] Not Currently Drug use: Never Objective BP 138/78 Pulse 74 Temp 37.4 C (99.4 F) Resp 16 Wt 83.9 kg (185 lb) SpO2 99% BMI 32.26 kg/m Physical Exam Vitals reviewed. Constitutional: Appearance: Normal appearance. HENT: Head: Normocephalic and atraumatic. Pulmonary: Effort: Pulmonary effort is normal. Breath sounds: Normal breath sounds. Abdominal: General: Abdomen is flat. Palpations: Abdomen is soft. Comments: Moderate tenderness right upper quadrant. Abdomen soft and nondistended. Bowel sounds active. Skin: General: Skin is warm and dry. Neurological: Mental Status: She is alert. Assessment and Plan ASSESSMENT/PLAN: 1. Right upper quadrant pain - ICD9: 789.01, ICD10: R10.11 With fever and right upper quadrant pain recommended the patient be evaluated in the emergency department for further evaluation. Likely needs imaging and labs. [facility]. I did send the ER passport. Rubi Araya PA-C documented in this encounterSelect Medical Specialty [facility]02-15-2024 Miscellaneous Notes* Telephone Encounter - Julieta Campuzano Ma - 06/21/2023 12:58 PM EST Patient notified, patient can't be seen until July with Liver specialist. Advised patient to reachback out to them and see if could be seen sooner considering her new symptoms or to be seen in our UC. * Telephone Encounter - Shahriar Brown APRN.CNP - 06/21/2023 12:37 PM EST Cassia has had multiple issues from cardiac, to liver, to autoimmune disorder recently. She would really need evaluated to see what possible cause of her symptoms are. With the nausea and RUQ pain, arely called her liver specialist? Thank you Shahriar Brown APRN.MOLD MAKING SUPERVISOR * Telephone Encounter - Chloé Dhaliwal LPN - 06/21/2023 11:08 AM EST Pt states she has had stomach queasiness & nausea X4 days. Temp in the 99s. +bloated. Pt is sticking to a bland diet. Taking Tums which helps a little. Pt states she also has pain below rib cage right side, pain is mostly achy but occasionally has sharp pains. Pt states this has been checked out several times but nothing has been found. Appointment was offered today but pt asked that I check with TONI Brown for her opinion first. Pleaseadvise. Chloé Dhaliwal LPN documented in this encounterSelect Medical [facility]ty [facility]02-15-2024 Miscellaneous Notes* Telephone Encounter - Diamond Vaughn LPN - 06/21/2023 10:37 AM EST Patient has been identified by name and [...] you. Diamond Vaughn LPN. documented in this encounterSelect Medical Specialty [facility]02-13-2024 Miscellaneous Notes* Telephone Encounter - Michelle Hurtado LPN - 06/19/2023 4:00 PM EST Patient has been identified by name and date of : No Patient phones for refill(s): Requested Prescriptions Pending Prescriptions Disp Refills naproxen (NAPROSYN) 500 mg tablet 30 tablet 1 Date of last office visit in primary care: 05/23/2023 Date of next office visit in primary care: 07/05/2023 Please advise. Thank you. Michelle Hurtado LPN. documented in this encounterSelect Medical [facility]02-12-2024 Miscellaneous Notes* Telephone Encounter - Michelle Hurtado LPN - 06/18/2023 3:12 PM EST Patient has been identified by name and [...] you. Michelle Hurtado LPN. documented in this encounterSelect Medical [facility]02-12-2024 Miscellaneous Notes* Telephone Encounter - Michelle Hurtado LPN - 06/18/2023 10:55 AM EST Patient has been identified by name and [...] you. Michelle Hurtado LPN. documented in this encounterSelect Medical [facility]02-05-2024 Miscellaneous Notes* Telephone Encounter - FAHEEM Hurtado Kim E - 06/11/2023 11:00 AM EST Patient has been identified by name and [...] you. Michelle Hurtado LPN. documented in this encounterSelect Medical Specialty [facility]12-24-2023 Discharge summary Author [facility] April 29, 2023 5:44am Note Date/Time April 29, 2023 2:08am [facility] Medical Records Department [address] [place] [address] Emergency Department Summary 04/29/23 MR#: [id number] Acct: [id number] Name: CASSIA HOLLAND Rep #:[id number] : 1965 57 From: [facility] PCP: Dr. Opal Mathews MD Status:REG E R Location: ED HPI History of Present Illness Chief Complaint: Palpitations Informant: patient Narrative Narrative: Patient is a 57-year-old female with history of Graves' disease, atrial fibrillation entheses proximal (on Eliquis), coronary artery disease and interstitial lung disease as well as recent diagnosis of COVID-19 infection presenting with palpitations. Patient states she started having a sore throat on , 3 days ago, and took a COVID test the following day. It was positive. She is subsequently been started on antiviral, Lagevrio. She states she is continue to have significant nasal congestion and feeling crummy and achy. Denies any difficulty breathing. States that she went to bed tonight andthen woke up with her heart racing. It felt like when she goes in atrial fibrillation. She tried to wait it out because usually will stop on its own however it did not so she called 911. Patient was found to be in atrial fibrillation with RVR per EMS. Patient converted to normal sinus rhythm and route. She is currently asymptomatic. No other complaints or concerns at this time. Currently denies any chest pain or difficulty breathing. Notes her bloodpressure has been higher lately but she also has been taking Mucinex DM. Notes she normally does not deal with elevated blood pressure readings. Her tin pourer is Dr. Manzano. Last had Tylenol around 7 PM [facility] Medical History Abnormal bruising Abnormal exercise tolerance test Abnormal finding on EKG Atrial fibrillation by electrocardiography Cervicalgia Chest pain Coronary artery disease Diabetes Dyslipidemia Dyspnea Essential hypertension Fibromyalgia Graves disease Srini's disease HSV-2 infection Interstitial lung disease Lupus Mixed connective tissue disease Palpitations Raynaud disease SOB (shortness of breath) on exertion Home Medications citalopram 20 mg tablet 20 mg PO DAILY 05/15/20 [History Last Taken Unknown] fluticasone propionate 50 mcg/actuation nasal spray,suspension 2 spray NASAL DAILY 05/15/20 [History Last Taken Unknown] levalbuterol tartrate 45 mcg/actuation aerosol inhaler 15 g IH Q4H PRN PRN Shortness Of Breath 05/15/20 [History Last Taken Unknown] losartan 100 mg tablet 50 mg PO DAILY 05/15/20 [History Last Taken 12/27/22] montelukast 10 mg tablet 10 mg PO DAILY 05/15/20 [History Last Taken Unknown] epinephrine 0.3 mg/0.3 mL injection, auto-injector 0.3 mg IM ONCE 08/04/22 [History Last Taken Unknown] triamcinolone acetonide 0.1 % topical cream 1 applic topical DAILY 08/04/22 [History Last Taken Unknown] lansoprazole 30 mg capsule,delayed release 30 mg PO DAILY 08/08/22 [History Last Taken Unknown] metformin 500 mg tablet,extended release 24 hr 1,000 mg PO BID 08/08/22 [History Last Taken 12/26/22] naproxen 500 mg tablet 500 mg PO BID PRN pain 08/08/22 [History Last Taken Unknown] nitroglycerin 0.4 mg sublingual tablet 0.4 mg sublingual Q5M PRN Cardiac/Chest Pain #15 tabs 12/27/22 [Rx Last Taken Unknown] budesonide 1 mg/2 mL suspension for nebulization (Pulmicort) 0.5 mg inhalation BID PRN sob 01/24/23 [History Last Taken Unknown] pravastatin 20 mg tablet 20 mg PO QHS #30 tabs 02/21/23 [Rx Last Taken Unknown] carvedilol 25 mg tablet 25 mg PO BID 30 days #60 tabs 02/27/23 [Rx Last Taken Unknown] diltiazem HCl 180 mg capsule,extended release 24 hr (Cardizem CD) 180 mg PO DAILY #30 caps 03/21/23 [Rx Last Taken Unknown] clopidogrel 75 mg tablet (Plavix) 75 mg PO DAILY #90 tabs 03/26/23 [Rx Last Taken Unknown] apixaban 5 mg tablet (Eliquis) 5 mg PO BID #60 tabs 04/02/23 [Rx Last Taken Unknown] benzonatate 200 mg capsule 200 mg PO TID PRN cough #20 caps 04/29/23 [Rx Last Taken Unknown] molnupiravir 200 mg capsule (EUA) (Lagevrio) 200 mg PO Q6H 04/29/23 [History Last Taken Unknown] Allergy/AdvReac Type Severity Reaction Status Date / Time cantaloupe Allergy Angioedema Verified 04/28/23 23:46 Sulfa (Sulfonamide Allergy Hives Verified 04/28/23 23:46 Antibiotics) levofloxacin [From Levaquin] AdvReac Intermediate Hives Verified 04/28/23 23:46 Family History Mother CAD (coronary artery disease) stents Hypertension Vertigo Pacemaker Enlarged heart Father Cancer prostate Sister Sjogrens syndrome Grandmother Heart disease Grandfather Heart disease Uncle Heart disease Enlarged heart Surgical History Hx of bilateral cataract extraction Hx of dilation and curettage Hx of hysterectomy Hx of sinus surgery Hx of tonsillectomy Stented coronary artery (~12/27/22) Social History Smoking Status: Never smoker alcohol intake: current alcohol intake frequency: holidays/special occasions only substance use type: does not use caffeine: Yes Type: coffee Number of servings: 1 ROS ROS ED Constitutional Constitutional ED: Denies chills or fever(s) Eyes Eyes: Denies change in vision ENT ENT ED: Reports rhinorrhea and sore throat; Denies ear pain Cardiovascular Cardiovascular: Reports palpitations and racing heartbeat; Denies chest pain Respiratory/Chest Respiratory/Chest: Denies cough or dyspnea Gastrointestinal Gastrointestinal: Denies abdominal pain, nausea or vomiting Genitourinary Genitourinary ED: Denies dysuria or urinary frequency Musculoskeletal Musculoskeletal: Reports myalgias; Denies arthralgias Integumentary Denies rash Neurologic Neurologic: Denies paresthesias or weakness Psychiatric Psychiatric: Denies anxiety Hematologic/Lymphatic Hematologic/Lymphatic: Reports easy bleeding and easy bruising EXAM Physical Exam Const Vital Signs: 04/28/23 23:46 04/28/23 23:45 04/29/23 00:45 Temperature 98.0 F Temperature Source Temporal Pulse Rate 100 94 91 Respiratory Rate 19 H 17 24 H Blood Pressure 172/92 H 171/90 H 168/89 H Blood Pressure Mean 118 117 115 Pulse Ox 98 98 96 Oxygen Delivery Method Room Air Room Air Room Air 04/29/23 01:00 04/29/23 01:29 04/29/23 02:00 Temperature Temperature Source Pulse Rate 87 85 Respiratory Rate 12 22 H Blood Pressure 174/84 H 176/87 H Blood Pressure Mean 114 116 Pulse Ox 98 99 Oxygen Delivery Method Room Air Room Air Room Air 04/29/23 03:00 04/29/23 00:38 04/29/23 00:40 Temperature Temperature Source Pulse Rate 88 94 94 Respiratory Rate 21 H 23 H 25 H Blood Pressure 176/82 H Blood Pressure Mean 113 Pulse Ox 96 96 96 Oxygen Delivery Method Room Air 04/29/23 00:45 04/29/23 00:50 04/29/23 01:00 Temperature Temperature Source Pulse Rate 88 90 Respiratory Rate 24 H 24 H Blood Pressure 174/89 H 166/89 H Blood Pressure Mean 112 112 Pulse Ox 96 95 Oxygen Delivery Method 04/29/23 01:10 04/29/23 01:15 04/29/23 01:20 Temperature Temperature Source Pulse Rate 84 89 87 Respiratory Rate 24 H 23 H 25 H Blood Pressure 182/93 H Blood Pressure Mean 119 Pulse Ox 96 96 97 Oxygen Delivery Method 04/29/23 01:45 04/29/23 01:47 04/29/23 01:50 Temperature Temperature Source Pulse Rate 85 85 Respiratory Rate 15 16 Blood Pressure 182/86 H 177/90 H Blood Pressure Mean 115 116 Pulse Ox 99 97 Oxygen Delivery Method 04/29/23 02:00 04/29/23 02:10 04/29/23 02:15 Temperature Temperature Source Pulse Rate 84 81 81 Respiratory Rate 20 H 25 H 24 H Blood Pressure 176/87 H 183/96 H Blood Pressure Mean 114 118 Pulse Ox 99 98 97 Oxygen Delivery Method 04/29/23 02:20 04/29/23 02:30 04/29/23 02:40 Temperature Temperature Source Pulse Rate 82 81 81 Respiratory Rate 26 H 24 H 24 H Blood Pressure 182/90 H Blood Pressure Mean 115 Pulse Ox 98 96 96 Oxygen Delivery Method 04/29/23 02:45 04/29/23 02:50 04/29/23 03:00 Temperature Temperature Source Pulse Rate 83 80 83 Respiratory Rate 23 H 22 H 21 H Blood Pressure 175/87 H 176/82 H Blood Pressure Mean 112 109 Pulse Ox 96 95 94 Oxygen Delivery Method 04/29/23 03:10 04/29/23 03:15 04/29/23 03:20 Temperature Temperature Source Pulse Rate 83 84 77 Respiratory Rate 22 H 23 H 22 H Blood Pressure 180/90 H Blood Pressure Mean 116 Pulse Ox 95 95 95 Oxygen Delivery Method Room Air 04/29/23 04:25 04/29/23 04:59 04/29/23 05:20 Temperature Temperature Source Pulse Rate 83 88 87 Respiratory Rate 16 20 H 18 Blood Pressure 193/93 H 172/88 H 176/81 H Blood Pressure Mean 126 116 112 Pulse Ox 97 95 97 Oxygen Delivery Method 12/24/23 05:42 Temperature Temperature Source Pulse Rate 77 Respiratory Rate 18 Blood Pressure 168/84 H Blood Pressure Mean 112 Pulse Ox 96 Oxygen Delivery Method Positive well nourished and well developed General Appearance ED: well developed and NAD HEENT Reports TM's clear and moist mucous membranes HEENT Narrative: Congestion present Tympanic Membrane ED: Yes TM's clear Eyes PERRL and EOMs intact bilaterally Neck supple and no JVD Chest Wall inspection of chest normal and palpation of chest normal Resp normal respiratory effort Resp Narrative: Mild crackles at the left base present, no increased work of breathing or wheezing appreciated Cardio regular rate, regular rhythm and no murmurs GI normal to inspection, nondistended, normoactive bowel sounds and non-tender Extremity normal to inspection General Extremety ED: Negative for edema General Extremity: Negative for edema Neuro oriented x3 Sensorium / Orientation: alert Motor Exam: Negative for general weakness Psych mental status grossly normal Skin no rashes or lesions noted and no wounds MDM MDM MDM Narrative Medical decision making narrative: Patient evaluated for palpitations. Patient was in A-fib RVR which she has a history of per EMS but is converted to normal sinus rhythm in the emergency room. Relatively asymptomatic at this time. Will obtain cardiac workup including TSH and magnesium as well as chest x-ray looking for signs of secondary pneumonia associated with her current COVID-19 infection. Anticipate if workup is negative and patient's vital signs remained stable can be discharged home. Workup largely normal. Patient is mildly hypertensive in the ER. Chest x-ray viewed by myself as well as radiology does not show any acute process. Patient remains hypertensive and is given a dose of IV labetalol in the ER. Her lab work does show mild anemia with a hemoglobin 9.5 which is chronic and stable. Very mild hyponatremia the sodium 133. She is given IV fluids in the ER. No TANO. High since he troponin stable at 6 and 8. TSH is normal so suspicion for acute thyroid abnormality causing her presentation. Patient is anticoagulant Eliquis so have a low suspicion for pulmonary emboli. Patient has no further arrhythmia in the ER. Plan to have the patient discontinue decongestants to help lower her blood pressure. Plan to start her on Tessalon Perles to help with her cough. Patientis agreeable. She is given return precautions. Discharged home in stable condition. Blood pressure improved with labetalol. Will be discharged home. Will follow-up with her medical doctor for further blood pressure management. Take blood pressure medicine when she gets home. History & Record Review Discussion w/independent historian: EMS personnel (Meds records-patient presented with A-fib RVR and converted to normal sinus rhythm) Lab Data Attestation: I reviewed the patient's lab results. Labs: Laboratory Results - last 24 hr 04/29/23 04/29/23 00:00 02:00 WBC 4.6 RBC 3.43 L Hgb 9.5 L Hct 29.9 L MCV 87.2 MCH 27.7 MCHC 31.8 L RDW Std Deviation 46.1 H RDW Coeff of Ted 14.4 Plt Count 139 L MPV 12.4 H Immature Gran % (Auto) 0.400 Neut % (Auto) 60.3 Lymph % (Auto) 26.2 [place] % (Auto) 12.7 H Eos % (Auto) 0.2 Baso % (Auto) 0.2 Absolute Neuts (auto) 2.8 Absolute Lymphs (auto) 1.20 Nucleated RBC % 0 Sodium 133 L Potassium 3.8 Chloride 102 Carbon Dioxide 25.0 Anion Gap 6 BUN 9 Creatinine 0.58 Estim Creat Clear Calc 88.53 Est GFR (MDRD) Af Amer 138 Est GFR (MDRD) Non-Af 114 BUN/Creatinine Ratio 15.6 Glucose 189 H Calcium 9.0 Magnesium 1.7 Troponin I High Sens 6 8 TSH 0.54 Radiography Diagnostic Testing: Clinical Impression(s) from Imaging Studies Chest X-Ray 04/29/23 01:40 IMPRESSION: No radiographic evidence of acute cardiopulmonary disease. Electronically Signed: Rey Bautista MD at 2:02 EST , Rhythm Strip Rhythm Strip: Sinus Rhythm Rate: 94 Ectopy: None EKG Initial EKG: Attestation: I personally reviewed and interpreted this EKG as follows: Interpretation: Sinus Rhythm Comments: Sinus rhythm at a rate of 94 bpm Normal axis Minimal voltage criteria for LVH Normal ST segments Compared to prior EKG on 03/29/2023 patient is no longer in atrial fibrillation Discharge Plan Triage Chief Complaint: Palpitations ED Provider: Lakshmi Resendiz Dx/Rx/DC Orders Clinical Impression: Essential hypertension, Paroxysmal atrial fibrillation, Cough in adult Instructions: Coronavirus Disease 2019 (COVID-19): Caring for Yourself or Others, ED AFIB, ED Hypertension, Established Prescriptions: New benzonatate 200 mg capsule 200 mg PO TID PRN (Reason: cough) Qty: 20 0RF No Action epinephrine 0.3 mg/0.3 mL auto-injector 0.3 mg IM ONCE Rx Instructions: as a single dose; may repeat once triamcinolone acetonide 0.1 % cream 1 applic topical DAILY naproxen 500 mg tablet 500 mg PO BID PRN (Reason: pain) budesonide [Pulmicort] 1 mg/2 mL suspension for nebulization 0.5 mg inhalation BID PRN (Reason: sob) pravastatin 20 mg tablet 20 mg PO QHS Qty: 30 4RF diltiazem HCl [Cardizem CD] 180 mg capsule,extended release 24hr 180 mg PO DAILY Qty: 30 6RF fluticasone propionate 1 SPRAY spray,suspension 2 spray NASAL DAILY citalopram 20 MG tablet 20 mg PO DAILY montelukast 10 MG tablet 10 mg PO DAILY losartan 100 MG tablet 50 mg PO DAILY levalbuterol tartrate 15 GM HFA aerosol inhaler 15 g IH Q4H PRN PRN (Reason: Shortness Of Breath) lansoprazole 30 mg capsule,delayed release(DR/EC) 30 mg PO DAILY metformin 500 mg tablet extended release 24 hr 1,000 mg PO BID carvedilol 25 mg tablet 25 mg PO BID 30 Days Qty: 60 0RF Rx Instructions: must administer with a meal/food. nitroglycerin 0.4 mg Tablet, Sublingual 0.4 mg sublingual Q5M PRN (Reason: Cardiac/Chest Pain) Qty: 15 6RF Lagevrio (EUA) 200 mg capsule 200 mg PO Q6H Patient Comments: for 5 days starting 04/28/23 clopidogrel [Plavix] 75 mg tablet 75 mg PO DAILY Qty: 90 3RF Eliquis 5 mg tablet 5 mg PO BID Qty: 60 11RF Primary Care Provider: Opal Mathews Referrals: Opal Mathews MD [Primary Care Provider] - Activity Restrictions/Additional Instructions: Please continue taking all your medications as prescribed. If you do not have issues with your blood pressure being more elevated than normal please follow-upwith your primary care doctor. If you develop chest pain further concerns please return to the emergency room. Your workup today was largely normal. I would recommend avoiding [id number] decongestants as these can raise your blood pressure. I would recommend continuing regular Mucinex to help thin out secretions in your chest and sinuses. Disposition Disposition: Home, Self Care What to do if you have Problems For any increased pain, shortness of breath, bleeding, nausea or vomiting, chestpain, or any unexpected problems, contact your Primary Care Provider. Call [facility] ([phone]) or report to the closest Emergency Room. Call 911 if necessary. 04/29/23 0544 <Electronically signed by Lakshmi Resendiz DO> Cosigner Signature (if applicable): CC: Dr. Opal Mathews MD ~ Signed [facility] Work Phone: 1(207) 826-711712-11-2023 History of Present illness Narrative* Rubi Araya PA-C - 04/16/2023 4:24 PM EST This note was created using Quintiqriter. Subjective Cassia Holland is a 57 year old female. HPI Presents with nausea, low-grade fever, body aches since this morning. She states she was exposed toCOVID and influenza. [place] [facility] and [place] [facility]. She also was exposed to COVID by her friend recently. No cough. Some mild congestion. Nodiarrhea or vomiting. She does have a history [...] 2 sprays into each nostril once daily 16g 2 budesonide (PULMICORT) 1 mg/2 mL nebulizer [...] by mouth daily before breakfast. 1/2 hr beforemeal. 30 capsule 11 naproxen (NAPROSYN) 500 mg tablet take 1 tablet by mouth twice a day with food if needed for PAIN/INFLAMMATION 30 tablet 1 EPINEPHrine (EPIPEN) 0.3 mg/0.3 mL auto-injector Use per directed for severe allergic reaction 2 Each 1 lancets (RetSKUUCH DELICA PLUS LANCET) 33 gauge Test blood sugar(s) 1 times daily. Dx: Type 2 DM - Controlled E11.9 Insulin: No 100 Each 11 blood sugar diagnostic (tenXerTOUCH ULTRA TEST) test strip use 1 TEST [...] 10 mL injection (DEFINITY) INTRAVENOUS DIRECTED PRN Shahriar Brown APRN.MOLD MAKING SUPERVISOR sodium chloride 0.9 % (flush) 10 mL (BD POSIFLUSH) 10 mL INTRAVENOUS DIRECTED PRN Shahriar Brown APRN.MOLD MAKING SUPERVISOR PAST SURGICAL HISTORY Procedure Laterality Date D [...] kg (186 lb 3.2 oz) SpO2 98% BMI32.47 kg/m Physical Exam Vitals reviewed. Constitutional: Appearance: [...] ROUTINE Rubi Araya PA-C documented [facility] History of Present illness Narrative* Shahriar Brown APRN.MOLD MAKING SUPERVISOR - 03/28/2023 3:34 PM EST CC: Patient presents with: Follow Up: Hypertension and thyroid HPI Cassia Holland is a 57 year old female who presents today for new onset A-fib. Has been in the ER [facility] at [facility] for palpitations since last being seen for new onset A-fib found in other ER visit 4 weeks ago. Saw her tin pourer and is scheduling an ablation. Records not available for review. Per patient they switched her BP pills at request of tin pourer. Per cardiology note. Amlodipine was stopped and cardizem increased. No further palpitations, chest pain, or shortness of breath. BP at home [id number] REVIEW OF SYSTEMS General: no fevers, no [...] by mouth daily before breakfast. 1/2 hr beforemeal.^Disp: 30 capsule^Rfl: 11 naproxen (NAPROSYN) 500 mg [...] Vaccine(1) due on 01/05/2023 Covid-19 Vaccine(3 - 24 season) due on 01/05/2023 Colorectal Cancer Screening [...] Testing Discontinued DATA REVIEWED: Outside chart from [facility] reviewed. [facility] records requested ASSESSMENT/PLAN: 1. [...] symptoms occur. Patient agreeable to treatment plan. Shahriar Brown APRN.CNP documented in this encounterSelect [facility]-14-2023 Miscellaneous Notes* Telephone Encounter - Elicia Gardner LPN - 03/20/2023 3:03 PM EST Patient has been identified by name and [...] you. Elicia Gardner LPN. documented in this encounterSelect [facility]-09-2023 Miscellaneous Notes* Telephone Encounter - Shahriar Brown APRN.CNP - 03/15/2023 11:57 AM EST Was reviewed in appointment with Ivett. Shahriar Brown APRN.ANTHONY documented in this encounterSelect [facility]-2023 History of Present illness Narrative* Ivett Dunn PA-C - 03/12/2023 1:12 PM EST CC: Patient presents with: Same Day Appointment: [...] eat - she can't taste it well. Hasbeen coughing up clear sputum when I get something up. Has been sick since she was seen at the [facility] 01/27. Has had extensive sinus issues in the past, having had 7 sinus surgeries previously. Most recently,had been txed by Dr. Wilder Anguiano with [...] by mouth daily before breakfast. 1/2 hr beforemeal.^Disp: 30 capsule^Rfl: 11 naproxen (NAPROSYN) 500 mg tablet^take 1 tablet by mouth twice a day with food if needed for PAIN/INFLAMMATION^Disp: 30 tablet^Rfl: 1 EPINEPHrine (EPIPEN) 0.3 mg/0.3 mL auto-injector^Use per directed for severe allergic reaction^Disp: 2 Each^Rfl: 1 lancets (RetSKUUCH DELICA PLUS LANCET) 33 gauge^Test blood sugar(s) [...] 2 Sprays in each nostril once daily.^Disp: 1Each^Rfl: 3 triamcinolone acetonide (KENALOG) 0.1 % cream^Apply [...] F) Resp 12 Ht 161.3 cm (5' 3.5) Wt 83 kg (183 lb) SpO2 99% [...] x2. Covid and flu testing ordered; Results [facility] to [facility] in 24-48 hours. Explained to patient that her situation is more complex thanyour typical acute sinusitis, and is clearly not [...] symptoms occur. Patient agreeable to treatment plan. Ivett Dunn PA-C documented in this encounterSelect [facility]10-26-2023 Miscellaneous Notes* Telephone Encounter - Ellis Sykes Ma - 03/01/2023 4:13 PM EDT Patient last visit 02/28/23 Follow up appointment scheduled 03/28/23 Ellis Sykes Ma documented in this encounterSelect [facility]-25-2023 History of Present illness Narrative* Shahriar Brown APRN.MOLD MAKING SUPERVISOR - 02/28/2023 10:55 AM EDT CC: Patient presents with: Recheck: ER follow up, AFIB HPI Cassia Holland is a 57 year old female who presents today for routine follow-up but was in ER yesterday for new onset A-fib. Facility: [facility] Date of visit: 02/27/23. Sudden onset of odd feeling, heart was racing, and also with visual disturbances. Hospital course: labs unremarkable but no thyroid or mag checked. EKG showed A- fib with RVR at 106 Diagnosis: new onset [...] 2 Sprays in each nostril once daily.^Disp: 1Each^Rfl: 3 hydroCHLOROthiazide 25 mg tablet^take 1 tablet [...] by mouth daily before breakfast. 1/2 hr beforemeal.^Disp: 30 capsule^Rfl: 11 montelukast (SINGULAIR) 10 mg tablet^take 1 tablet by mouth once daily^Disp: 30 tablet^Rfl: 11 naproxen (NAPROSYN) 500 mg tablet^take 1 tablet by mouth twice a day with food if needed for PAIN/INFLAMMATION^Disp: 30 tablet^Rfl: 1 EPINEPHrine (EPIPEN) 0.3 mg/0.3 mL auto-injector^Use per directed for severe allergic reaction^Disp: 2 Each^Rfl: 1 lancets (tenXerTOUCH DELICA PLUS LANCET) 33 gauge^Test blood sugar(s) 1 times daily. Dx: Type 2 DM - Controlled E11.9 Insulin: No^Disp: 100 Each^Rfl: 11 blood sugar diagnostic (tenXerTOUCH ULTRA TEST) test strip^use 1 TEST STRIP [...] Testing Discontinued DATA REVIEWED: Outside chart from [facility] reviewed. ASSESSMENT/PLAN: 1. New onset a-fib [...] review at upcoming appointment. - HGB A1C Shahriar Brown APRN.CNP Prescription instructions reviewed with patient as applicable. Potential red flag symptoms discussed with the patient. Reviewed appropriate action plan to take if red flag symptoms occur. Patient agreeable to treatment plan. Shahriar Brown APRN.CNP documented in this encounterSelect [facility]09-20-[facility]23 Procedure [facility]08-27-2023 History of Present illness Narrative* John Rodriguez APRN.CNP - 12/31/2022 1:26 PM EDT Nontoxic female presents urgent care chief complaint fever chest pressure and feeling fatigue. Duration of symptoms 24 hours. Associated symptoms listed above. Patient presents today with concerns ofpossible infection. Did recently have a heart cath performed on December 27. Actual temperature todayat home 100.5. With patient's burning symptoms I recommend patient be seen the ED to rule out postoperative infection. Patient verbalized understand agrees with plan of care. Be seen at [facility] for further evaluation care. John Rodriguez APRN.CNP documented in this encounterSelect [facility]08-24-2023 Progress note Author Alicia Manzano [facility] December 28, 2022 9:14am Note Date/Time December 28, 2022 9: 14am [facility] Medical Records Department [address] [place] [address] Progress Note 12/28/22913 MR#: [id number] Acct: [id number] Name: CASSIA HOLLAND Rep #:[id number] : 1965 57 From: Alicia Manzano MD PCP: Dr. Opal Mathews MD Status:ADM I NO Location: [place] [address] Progress Note Patient not on statin because of her elevated ALT/AST. Last LDL cholesterol 80 mg/dL. We will continue follow-up as outpatient. 12/28/22913 <Electronically signed by Alicia Manzano MD> Alicia Manzano MD Cosigner Signature (if applicable): CC: ~ Signed [facility] Work Phone: 1(160) 656-987108-23-2023 Discharge summary Author Alicia Manzano [facility] December 27, 2022 1:05pm Note Date/Time December 27, 2022 1: 03pm [facility] Medical Records Department [address] [place] [address] Instructions for Home/Discharge Instructions 12/27/22 1302 MR#: [id number] Acct: [id number] Name: CASSIA HOLLAND Rep #:[id number] : 1965 57 From: Alicia Manzano MD PCP: Dr. Opal Mathews MD Status:REG S DC Discharge Instructions Diet Discharge Diet: 2000 Calorie Control Diet Activity Discharge Activity: Return to Normal Activity May resume sexual activity in: No Restrictions Dressing / Incision Call your doctor if your incision/area has: Continuous Slow Oozing, Sudden Increased Bleeding, Increased Pain/ Swelling, Increased Redness, Foul Smelling Discharge and Swelling at the incision site Call your doctor if you observe: Fever of 101 or Higher, Coldness, Increased Pain, Shortness of breath and Chest pain Follow Up Care Please Follow Up With: Alicia Manzano MD When: 2 weeks Test Results: Test results from this visit will be discussed in further detail at your follow- up appointment, if applicable. Discharge Plan Admission Attending Provider: Alicia Manzano Primary Care Provider: Opal Mathews Discharge Orders/Prescriptions Prescriptions: New Brilinta 90 mg Tablet 90 mg PO BID Qty: 60 6RF nitroglycerin 0.4 mg Tablet, Sublingual 0.4 mg sublingual Q5M PRN (Reason: Cardiac/Chest Pain) Qty: 15 6RF Continued amlodipine 2.5 mg tablet 2.5 mg PO DAILY epinephrine 0.3 mg/0.3 mL auto-injector 0.3 mg IM ONCE Rx Instructions: as a single dose; may repeat once budesonide [Pulmicort] 1 mg/2 mL suspension for nebulization 0.5 mg inhalation BID triamcinolone acetonide 0.1 % cream 1 applic topical DAILY naproxen 500 mg tablet 500 mg PO BID PRN (Reason: pain) aspirin 81 mg tablet,delayed release (DR/EC) 81 mg PO DAILY fluticasone propionate 1 SPRAY spray,suspension 2 spray NASAL DAILY citalopram 20 MG tablet 20 mg PO DAILY montelukast 10 MG tablet 10 mg PO DAILY hydrochlorothiazide 25 MG tablet 25 mg PO DAILY losartan 100 MG tablet 100 mg PO DAILY levalbuterol tartrate 15 GM HFA aerosol inhaler 15 g IH Q4H PRN PRN (Reason: Shortness Of Breath) lansoprazole 30 mg capsule,delayed release(DR/EC) 30 mg PO DAILY metformin 500 mg tablet extended release 24 hr 1,000 mg PO BID carvedilol 12.5 mg tablet 12.5 mg PO BID Qty: 180 1RF Rx Instructions: must administer with a meal/food Referrals / Follow Up: Opal Mathews MD [Primary Care Provider] - Disposition Disposition (needs filled in before D/C Order can be placed): Home, Self Care 12/27/22 1305<Electronically signed by Alicia Manzano MD>Alicia Manzano MD CC: Dr. Opal Mathews MD ~ Signed [facility] Work Phone: [phone] 412-664508-16-2023 Instructions* Patient Instructions* Shahriar Brown APRN.CNP - 12/20/2022 5:35 PM EDT Get compression socks and wear during the day to help decrease edema. Elevate legs as able documented in this encounterSelect [facility]-16-[facility]23 History of Present illness Narrative* Shahriar Brown APRN.CNP - 12/20/2022 5:30 PM EDT CC: Patient presents with: Recheck: Follow up [...] antibiotics to make sure it is completely resolvedand prevent needing to reschedule heart cath. Does have history of dependant edema that worsens throughout the day and is better with elevation or in AM. 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 1/2 hr beforemeal.^Disp: 30 capsule^Rfl: 11 montelukast (SINGULAIR) 10 mg tablet^take 1 tablet by mouth once daily^Disp: 30 tablet^Rfl: 11 naproxen (NAPROSYN) 500 mg tablet^take 1 tablet by mouth twice a day with food if needed for PAIN/INFLAMMATION^Disp: 30 tablet^Rfl: 1 EPINEPHrine (EPIPEN) 0.3 mg/0.3 mL auto-injector^Use per directed for severe allergic reaction^Disp: 2 Each^Rfl: 1 lancets (tenXerTOUCH DELICA PLUS LANCET) 33 gauge^Test blood sugar(s) 1 times daily. Dx: Type 2 DM - Controlled E11.9 Insulin: No^Disp: 100 Each^Rfl: 11 blood sugar diagnostic (RetSKUUCH ULTRA TEST) test strip^use 1 TEST STRIP [...] symptoms occur. Patient agreeable to treatment plan. Shahriar Brown APRN.CNP documented in this encounterSelect Medical [facility]ty [facility]08-15-2023 Miscellaneous Notes* Telephone Encounter - Tio Bentley Ma - 12/19/2022 3:28 PM EDT Patient notified, scheduled for tomorrow with Shahriar. * Telephone Encounter - Luz Brown APRN.CNP - 12/19/2022 3:22 PM EDT Patient was to follow-up for any recurrent symptoms per Shahriar Brown's office visit note. Please schedule Luz Brown APRN.CNP * Telephone Encounter - Chloé Dhaliwal LPN - 12/19/2022 2:17 PM EDT Pt seen in twice & with TONI Brown on 12/14/22 for cellulitis right lower [...] advise. Chloé Dhaliwal LPN documented in this encounterSelect Medical [facility]08-10-2023 History of Present illness Narrative* Shahriar Brown APRN.CNP - 12/14/2022 10:55 AM EDT CC: Patient presents with: Recheck: 3 month follow up HPI Cassia Baker White is a 57 year old female who presents today for routine follow up but has been to the ER twice since last visit and 2 express care visit. 11/27 - went to [place] ER for increase in RUQ pain and severe nausea. US of abdomen showed cirrhosis of liver which is not new for her and a possible gallbladder polyp. CT showed 5mm possible ureter stone. Had a CT urogram by Dr. Wylie last week which per patient was normal. 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 Repeat abdominal CT on 12/07 with no concerns outside of her known liver disease. RUQ pain is at baseline except last night had episode after eating a large meal of vietnamese fries andBBQ sandwich. Self resolved during the night No vomiting, diarrhea, fever, chest pain, shortness of breath, or palpitations. 12/03 - went back to [place] ER for RLE swelling and red without [...] Has a heart cath being performed by [facility] at the end of this month: [...] 2 Sprays in each nostril once daily.^Disp: 1Each^Rfl: 3 hydroCHLOROthiazide 25 mg tablet^take 1 tablet [...] by mouth daily before breakfast. 1/2 hr beforemeal.^Disp: 30 capsule^Rfl: 11 losartan (COZAAR) 100 mg [...] severe allergic reaction^Disp: 2 Each^Rfl: 1 lancets (RetSKUUCH DELICA PLUS LANCET) 33 gauge^Test blood sugar(s) 1 times daily. Dx: Type 2 DM - Controlled E11.9 Insulin: No^Disp: 100 Each^Rfl: 11 blood sugar diagnostic (tenXerTOUCH ULTRA TEST) test strip^use 1 TEST STRIP [...] TESTING Discontinued DATA REVIEWED: Outside chart from [facility] reviewed. ASSESSMENT/PLAN: 1. Cellulitis of right [...] baseline - continue with upcoming EGD with Rate Analyst - if negative or no cause for RUQ found, will consult to general surgery for evaluation of possiblyunderlying gallbladder problems - follow up in 6 [...] symptoms occur. Patient agreeable to treatment plan. Shahriar Brown APRN.CNP documented in this encounterSelect Medical [facility]ty [facility]08-05-2023 History of Present illness Narrative* oJhn Rodriguez APRN.CNP - 12/09/2022 3:00 PM EDT Subjective HPI Nontoxic-appearing female presents urgent care chief complaint possible sinus affection. Duration of symptoms 8 days. Associated symptoms worsening sinus pressure. History of sinus infections this feels similar. Did have low-grade fever earlier this week. That has since subsided. History of chronicsinus infection. Is currently under care by ENT. [...] 2 Sprays in each nostril once daily.^Disp: 1Each^Rfl: 3 hydroCHLOROthiazide 25 mg tablet^take 1 tablet [...] by mouth daily before breakfast. 1/2 hr beforemeal.^Disp: 30 capsule^Rfl: 11 losartan (COZAAR) 100 mg [...] severe allergic reaction^Disp: 2 Each^Rfl: 1 lancets (tenXerTOUCH DELICA PLUS LANCET) 33 gauge^Test blood sugar(s) 1 times daily. Dx: Type 2 DM - Controlled E11.9 Insulin: No^Disp: 100 Each^Rfl: 11 blood sugar diagnostic (tenXerTOUCH ULTRA TEST) test strip^use 1 TEST STRIP [...] at this time. Based on exam and clinicalfinding, the patient is stable for discharge. Plan of care was discussed with patient. Patient verbalizes understanding and agrees to plan of care. This note was generated using Alloptic software. It may contain errors in wording, punctuation, or spelling. John Rodriguez APRN.ANTHONY * John Rodriguez APRN.CNP - 12/09/2022 2:55 PM EDT Subjective HPI ROS Objective Physical Exam documented in this encounterSelect Medical [facility]07-30-2023 History of Present illness Narrative* Rubi Araya PA-C - 12/03/2022 11:17 AM EDT This note was created using Quintiqriter. Subjective Cassia Holland is a 57 year [...] by mouth daily before breakfast. 1/2 hr beforemeal. 30 capsule 11 losartan (COZAAR) 100 mg [...] severe allergic reaction 2 Each 1 lancets (RetSKUUCH DELICA PLUS LANCET) 33 gauge Test blood sugar(s) 1 times daily. Dx: Type 2 DM - Controlled E11.9 Insulin: No 100 Each 11 blood sugar diagnostic (tenXerTOUCH ULTRA TEST) test strip use 1 TEST [...] affected area twice daily. For 7-10 days. 45g 0 Blood-Glucose Meter Dispense 1 kit 1 Each 0 Current Facility-Administered Medications Medication Dose Route Frequency Provider Last Rate Last Admin perflutren lipid microspheres 1.3 mL in NaCl (PF) 0.9% 10 mL injection (DEFINITY) INTRAVENOUS DIRECTED PRN Shahriar Brown APRN.CNP sodium chloride 0.9 % (flush) 10 mL (BD POSIFLUSH) 10 mL INTRAVENOUS DIRECTED PRN Shahriar Brown APRN.ANTHONY PAST SURGICAL HISTORY Procedure Laterality [...] the emergency department. She will go to [facility] ER. Rubi Araya PA-C documented in this encounterSelect Medical [facility]07-17-2023 Miscellaneous Notes* Telephone Encounter - Travon Cerrato APRN.CNP - 11/20/2022 6:58 AM EDT The following approved medication requests have been transmitted electronically. Requested Prescriptions Signed Prescriptions Disp Refills fluticasone (FLONASE) 50 mcg/actuation nasal spray 1 Each 3 Sig: Use 2 Sprays in each nostril once daily. Travon Cerrato APRN.CNP * Telephone Encounter - Deepti Hedrick LPN - 11/17/2022 4:01 PM EDT Last office visit: 09/14/22 Next appointment scheduled: 12/14/22 Patient phones requesting refills as follows: Requested Prescriptions Pending Prescriptions Disp Refills fluticasone (FLONASE) 50 mcg/actuation nasal spray 1 Each 3 Sig: Use 2 Sprays in each nostril once daily. Deepti Hedrick LPN documented in this encounterSelect Medical [facility]07-07-2023 Miscellaneous Notes* Letter - Coordinator, Mammography - 11/10/2022 8:27 AM EDT November 13, 2022 PID: [id number] Cassia Holland [address] [place] [address] Dear Ms. Holland, We are pleased to [...] dense breast tissue in addition to other riskfactors. Early detection of cancer is very important. We also understand recommendations regarding breast cancer screening are controversial. Please discuss with your primary care provider which strategy is best for you and whether a mammogram is right for you. Your imaging studies and report will be kept on file at [facility] as part of your permanent medical record and are available for your continuing care. Thank you for allowing us to help in meeting your health care needs. Sincerely, Dr. Elam Interpreting Radiologist [facility] (Normal over 40) documented in this encounterSelect Medical Specialty Hospital [facility]06-26-2023 Miscellaneous Notes* Telephone Encounter - Michelle Judd LPN - 10/30/2022 11:55 AM EDT Patient has been identified by name and [...] you. Michelle Judd LPN documented in this encounterSelect Medical Specialty [facility]06-08-2023 Instructions* Patient Instructions* Chhaya Crowe MD - 10/12/2022 10:49 AM EDT - Use prescribed creams BID for 2 weeks. If symptoms return, call the office for a follow up appointment and would recommend biopsy at that time. If symptoms improve, can start estrogen cream nightlyfor 2 weeks and then 2 days a week documented in this encounterSelect Medical [facility]ty [facility]06-08-2023 History of Present illness Narrative* Chhaya Crowe MD - 10/12/2022 9:39 AM EDT Hot Mill Worker offered: Patient declinesLloyd Florez is a 57 year old who presents for an annual gynecologic exam with complaints, fatigue . Postmenopausal: Yes HRT use: No. History of abnormal pap: No - no LEEP or CKC Last mammogram: 2021 had diagnostic imaging, dense breast tissue Patient concerns for STD exposure: No. OB History T0 L0 SAB0 IAB0 Ectopic0 Multiple0 Live Births0 Supervisor Special Education History LMP: Hysterectomy Age at Menarche: Age at First : Age at Menopause: Supervisor Special Education History Comments: Sexual Activity: Not Currently; No [...] and swelling present, normal Bartholin's glands, urethra, Boulder's glands, no vulvar lesions, good vaginal support, [...] needs follow up appointment for vulvar biopsy. D iscussed proper use of vaginal estrogen as well 2) Follow up one year or sooner as needed Chhaya Crwoe DO documented in this encounterSelect Medical [facility]06-05-2023 Miscellaneous Notes* Telephone Encounter - Michelle Nguyenfrandy MAYEN - 10/09/2022 10:18 AM EDT Patient has been identified by name and [...] you. Michelle Judd LPN documented in this encounterSelect Medical [facility]ty [facility]05-18-2023 History of Present illness Narrative* Ariadna Pérez RDMS - 09/21/2022 7:00 AM EDT Radiology Service Progress Note PATIENT NAME: Cassia Holland DATE OF SERVICE: September 21, 2022 TIME: 7:31 AM PATIENT IDENTITY VERIFICATION COMPLETED USING TWO (2) IDENTIFIERS: Name and Date of confirmedby patient verbally. FALL SCREENING: Has the patient [...] 21, 2022 7:31 AM documented in this encounterSelect Medical [facility]ty [facility]05-11-2023 History of Present illness Narrative* Shahriar Brown APRN.ANTHONY - 09/14/2022 9:05 AM EDT CC: Patient presents with: Recheck: 2 week BP follow up HPI Cassia Holland is a 57 year old female complex patient who presents today for routine follow up for blood pressure and diabetes. Currently on antibiotic for sinusitis. Feels much better as symptoms are resolving but now states she has vaginal itching and yeast infection. Awaiting a calcium scoring test as ordered by [facility]. Has some dizziness she attributes [...] fall showing moderate to severe fibrosis. Feels herchronic nausea is more frequent. Has continuous tingling to RUQ but when she leans or slouches willget stabbing to achy pressure to RUQ. Sees her brake operator sheet metal at the end of October for follow up. Denies any bowel changes, light colored stool, or vomiting. HTN: Ms. Holland indicates that she is feeling well and denies any symptoms referable to elevated blood pressure. Specifically denies headache, chest pain, dyspnea, and peripheral edema. Patient deniesany side effects of her medication(s) and is compliant with their regimen. She does check BP's awayfrom this office with average BP's in the [...] by mouth daily before breakfast. 1/2 hr beforemeal.^Disp: 30 capsule^Rfl: 11 hydroCHLOROthiazide (HYDRODIURIL, ESIDRIX) 25 mg tablet^Take 1 tablet by mouth once daily.^Disp: 30tablet^Rfl: 4 losartan (COZAAR) 100 mg tablet^Take 0.5 [...] 2 Sprays in each nostril once daily.^Disp: 1Each^Rfl: 3 EPINEPHrine (EPIPEN) 0.3 mg/0.3 mL auto-injector^Use per directed for severe allergic reaction^Disp: 2 Each^Rfl: 1 lancets (tenXerTOUCH DELICA PLUS LANCET) 33 gauge^Test blood sugar(s) 1 times daily. Dx: Type 2 DM - Controlled E11.9 Insulin: No^Disp: 100 Each^Rfl: 11 blood sugar diagnostic (tenXerTOUCH ULTRA TEST) test strip^use 1 TEST STRIP [...] symptoms occur. Patient agreeable to treatment plan. Shahriar Brown APRN.CNP documented in this encounterSelect Medical [facility]05-01-2023 History of Present illness Narrative* Shahriar Brown APRN.CNP - 09/04/2022 1:34 PM EDT CC: Patient presents with: Head Congestion: Head [...] no recurrent infections, no change in appetite, andno significant changes in weight HEENT: no changes [...] by mouth daily before breakfast. 1/2 hr beforemeal.^Disp: 30 capsule^Rfl: 11 hydroCHLOROthiazide (HYDRODIURIL, ESIDRIX) 25 mg tablet^Take 1 tablet by mouth once daily.^Disp: 30tablet^Rfl: 4 losartan (COZAAR) 100 mg tablet^Take 0.5 [...] 2 Sprays in each nostril once daily.^Disp: 1Each^Rfl: 3 EPINEPHrine (EPIPEN) 0.3 mg/0.3 mL auto-injector^Use per directed for severe allergic reaction^Disp: 2 Each^Rfl: 1 lancets (RetSKUUCH DELICA PLUS LANCET) 33 gauge^Test blood sugar(s) 1 times daily. Dx: Type 2 DM - Controlled E11.9 Insulin: No^Disp: 100 Each^Rfl: 11 blood sugar diagnostic (RetSKUUCH ULTRA TEST) test strip^use 1 TEST STRIP [...] symptoms occur. Patient agreeable to treatment plan. Shahriar Brown APRN.CNP documented in this encounterSelect Medical [facility]ty [facility]04-24-2023 Miscellaneous Notes* Telephone Encounter - Julieta Campuzano Ma - 08/28/2022 4:05 PM EDT Spoke with patient, will come and get labs done. [facility] states Endocrinology will coming to [place] int next month. * Telephone Encounter - Shahriar Brown APRN.CNP - 08/28/2022 8:49 AM EDT Please let patient know below information. We can recheck her thyroid levels and continue to monitor this. Once resulted, if abnormal, can send again to [place] [facility] but I can try to have her schedule with endocrinology through [facility] which would require going outside of [place] travel. Thank you Shahriar Brown APRN.CNP * Telephone Encounter - Yamile Garrett LPN - 08/25/2022 9:13 AM EDT [place] [facility] calling states there was a referral sent over on pt .Doctor viewed this and states no reason for them to see her because all her tests are normal. documented in this encounterSelect Medical [facility]04-13-2023 History of Present illness Narrative* Shahriar Brown APRN.CNP - 08/17/2022 8:39 AM EDT CC: Patient presents with: Recheck: Follow up, discuss Thyroid HPI Cassia Holland is a 56 year old female who presents today for thyroid concerns. History of Graves Disease with overactive disorder in early and was PTU to keep symptoms under control, but levels normalized with diagnosis of lupus. Also reports history of hashimotos withoutneeding supplementation. Has had issues with palpitations, hair thinning, and just doesn't feel right. Previous episodes of hyperthyroid had shaking which is not present at this time. HTN: Ms. Holland indicates that she is feeling well and denies any symptoms referable to elevated blood pressure. Specifically denies headache, chest pain, dyspnea, and peripheral edema. Patient deniesany side effects of her medication(s) and is compliant with their regimen. She does check BP's awayfrom this office with average BP's in the 150s/90s range. Was seen by [facility] few days ago and [...] no recurrent infections, no change in appetite, andno significant changes in weight HEENT: no frequent [...] by mouth daily before breakfast. 1/2 hr beforemeal.^Disp: 30 capsule^Rfl: 11 hydroCHLOROthiazide (HYDRODIURIL, ESIDRIX) 25 mg tablet^Take 1 tablet by mouth once daily.^Disp: 30tablet^Rfl: 4 losartan (COZAAR) 100 mg tablet^Take 0.5 [...] 2 Sprays in each nostril once daily.^Disp: 1Each^Rfl: 3 EPINEPHrine (EPIPEN) 0.3 mg/0.3 mL auto-injector^Use per directed for severe allergic reaction^Disp: 2 Each^Rfl: 1 lancets (RetSKUUCH DELICA PLUS LANCET) 33 gauge^Test blood sugar(s) 1 times daily. Dx: Type 2 DM - Controlled E11.9 Insulin: No^Disp: 100 Each^Rfl: 11 blood sugar diagnostic (tenXerTOUCH ULTRA TEST) test strip^use 1 TEST STRIP [...] send to endocrinology, patient wants faxed to [place] [facility] - CONSULT TO ENDOCRINOLOGY 2. History [...] symptoms occur. Patient agreeable to treatment plan. Shahriar Brown APRN.CNP documented in this encounterSelect Medical [facility]ty [facility]03-23-2023 Miscellaneous Notes* Telephone Encounter - Shahriar Brown APRN.CNP - 07/27/2022 4:11 PM EDT Noted. Shahriar Brown APRN.CNP * Telephone Encounter - Samuel Cox RN - 07/27/2022 1:13 PM EDT Faxed cardiology referral to [facility], per patient request. States it is more convenientfor her to see cardiology there. Asking message be sent to Toni Tompkins, to let her know. documented in this encounterSelect Medical Specialty [facility]03-22-2023 Miscellaneous Notes* Telephone Encounter - Alcira Parikh RN - 07/26/2022 2:18 PM EDT Spoke to pt. States she is unavailable to come on Mondays due to her work schedule. This nurse informed her that we are currently only offering Cardiology in [place] on Mondays. Pt. states she is willing to drive to [place] for Cardiology services and that she will call to set up Cardio consult there. Alcira Parikh RN * Telephone Encounter - Saskia Le - 07/26/2022 2:03 PM EDT Patient is being referred to cardiology for SVT (supraventricular tachycardia) ([facility]) [I47.1 (ICD-10-CM)]. She is unable to accept the appointment with Dr. Ac on 07/31/22. Next appointment with the practice is not until 11/27/22. Please notify patient if she can be seen sooner. She is waiting to schedule until she is notified by the office if she can be seen sooner. documented in this encounterSelect Medical [facility]ty [facility]03-22-2023 Miscellaneous Notes* Telephone Encounter - Reyna Lamb RN - 07/26/2022 2:01 PM EDT Pt called and is notified of providers results and instructions. Pt voices understanding. Pt put through to scheduling to set up Cardiology appointment. Reyna Lamb RN * Telephone Encounter - Julieta Campuzano Ma - 07/26/2022 10:21 AM EDT Left detailed message on secure VM. Please assist in scheduling. * Telephone Encounter - Shahriar Brown APRN.CNP - 07/26/2022 9:54 AM EDT Please let patient know her heart monitor did show her heart rate speeding up at times for short bursts. I am going to have her see cardiology for further evaluation of this. Thank you Shahriar Brown APRN.ANTHONY documented in this encounterSelect Medical Specialty [facility]03-17-2023 Miscellaneous Notes* Telephone Encounter - Julieta Campuzano Ma - 07/21/2022 4:53 PM EDT Patient notified. * Telephone Encounter - Opal Mathews MD - 07/21/2022 4:46 PM EDT Please tell cassia Cameron sent an abx , To hold the zofran when she is taking the zpak regularly a * Telephone Encounter - Christina Ray LPN - 07/21/2022 12:11 PM EDT Pt calling with an update. Pt was seen on 07-17-22 in the office. Pt reports she is not getting any better. Symptoms fever, exhaustion, drainage down back of throat and coughing when there is drainagedown throat. Pt not sleeping. Fever and down and chills. Please review office apt and may want to call somethingin for pt. Please advise pt. Christina Ray LPN documented in this encounterSelect Medical Specialty [facility]03-13-2023 Miscellaneous Notes* Addendum Note - Opal Mathews MD - 07/17/2022 4:48 PM EDTAddended by: OPAL MATHEWS on: 07/17/2022 04:48 PM Modules accepted: Orders documented in this encounterSelect Medical Specialty [facility]03-13-2023 History of Present illness Narrative* Opal Mathews MD - 07/17/2022 4:07 PM EDT Reason for Visit Patient presents with: Same [...] itching. 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 - has an ongoing uti. 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 given Macrobid which she is [...] EPINEPHrine (EPIPEN) 0.3 mg/0.3 mL auto-injector lancets (tenXerTOUCH DELICA PLUS LANCET) 33 gauge blood sugar diagnostic (tenXerTOUCH ULTRA TEST) test strip levalbuterol tartrate HFA [...] F) Resp 12 Ht 157.5 cm (5' 2) Wt 87.5 kg (193 lb) SpO2 97% [...] and rest - COVID WITH FLUA+B, ROUTINE Opal Mathews MD documented in this encounterSelect Medical Specialty [facility]03-07-2023 Miscellaneous Notes* Telephone Encounter - Aubree Garcia LPN - 07/11/2022 8:31 AM EST Patient has been identified by name and date of : Yes, Provider Shahriar Brown Date 07/11/22 Time 8:31am Patient phones [...] you. Aubree Garcia LPN documented in this encounterSelect Medical Specialty [facility]02-20-2023 History of Present illness Narrative* Shahriar Brown APRN.MOLD MAKING SUPERVISOR - 06/26/2022 8:27 AM EST CC: Patient presents with: Recheck: 2 week [...] 130/60s - 140s/70s range. Cassia denies regular aerobicexercise. She watches her diet for sodium, low [...] reactions, weight loss/gain, lightheadedness/dizziness, and bowel changes/loose stools.Follows a diabetic diet some of the time. [...] heat intolerance, no polyuria, no polyphagia, and nopolydipsia Neurologic: No headache, weakness, numbness, tingling, dizziness, [...] by mouth daily before breakfast. 1/2 hr beforemeal.^Disp: 30 capsule^Rfl: 11 hydroCHLOROthiazide (HYDRODIURIL, ESIDRIX) 25 mg tablet^Take 1 tablet by mouth once daily.^Disp: 30tablet^Rfl: 4 losartan (COZAAR) 100 mg tablet^Take 0.5 [...] 2 Sprays in each nostril once daily.^Disp: 1Each^Rfl: 3 EPINEPHrine (EPIPEN) 0.3 mg/0.3 mL auto-injector^Use per directed for severe allergic reaction^Disp: 2 Each^Rfl: 1 lancets (Problemsolutions24 DELICA PLUS LANCET) 33 gauge^Test blood sugar(s) 1 times daily. Dx: Type 2 DM - Controlled E11.9 Insulin: No^Disp: 100 Each^Rfl: 11 blood sugar diagnostic (RetSKUUCH ULTRA TEST) test strip^use 1 TEST STRIP [...] disorders. Will have her discuss with her icing coater to see if this chronic inflammation is [...] symptoms occur. Patient agreeable to treatment plan. Shahriar Brown APRN.CNP documented in this encounterSelect Medical [facility]ty [facility]02-17-2023 Miscellaneous Notes* Telephone Encounter - Shahriar Brown APRN.CNP - 06/23/2022 3:22 PM EST Lab work reviewed. Will review with patient at upcoming visit. Shahriar Brown APRN.CNP * Telephone Encounter - Julieta Campuzano Ma - 06/22/2022 1:41 PM EST No current lab work completed at [facility]. Last blood work printed and given to provider. * Telephone Encounter - Shahriar Brown APRN.CNP - 06/22/2022 12:54 PM EST Please see if patient has any previous lab work at [facility] to compare current lab results to. Thank you Shahriar Brown APRN.CNP documented in this encounterSelect [facility]-09-[facility] History of Present illness Narrative* Shahriar Brown APRN.CNP - 06/15/2022 2:57 PM EST CC: Patient presents with: Recheck: Elevated BP [...] with average BP's in the 120s-160s/70s-80s range. Lisadenies regular aerobic exercise. She watches her diet [...] and not with exercise or after eating. Doesnot have any nasuea, shortness of breath, or [...] excessive thirst or increased frequency of urination, numbness,tingling or pain in extremities, low sugar/hypoglycemic reactions, [...] heat intolerance, no polyuria, no polyphagia, and nopolydipsia Neurologic: No weakness, numbness, tingling, dizziness, syncope. [...] by mouth daily before breakfast. 1/2 hr beforemeal.^Disp: 30 capsule^Rfl: 11 hydroCHLOROthiazide (HYDRODIURIL, ESIDRIX) 25 mg tablet^Take 1 tablet by mouth once daily.^Disp: 30tablet^Rfl: 4 losartan (COZAAR) 100 mg tablet^Take 0.5 [...] 2 Sprays in each nostril once daily.^Disp: 1Each^Rfl: 3 EPINEPHrine (EPIPEN) 0.3 mg/0.3 mL auto-injector^Use per directed for severe allergic reaction^Disp: 2 Each^Rfl: 1 lancets (tenXerTOUCH DELICA PLUS LANCET) 33 gauge^Test blood sugar(s) 1 times daily. Dx: Type 2 DM - Controlled E11.9 Insulin: No^Disp: 100 Each^Rfl: 11 blood sugar diagnostic (tenXerTOUCH ULTRA TEST) test strip^use 1 TEST STRIP [...] tablets by mouth twice daily. take 1 tabletby mouth every morning and 2 tablets by [...] enlargement and left ventricular hypertrophy INTERVALS: Normal VA interval QRS COMPLEX: Normal ST SEGMENT: Normal [...] history of lupus she sees an outside icing coater for so may need to contact office [...] symptoms occur. Patient agreeable to treatment plan. Shahriar Bronw APRN.ANTHONY documented in this encounterSelect Medical [facility]02-07-2023 Miscellaneous Notes* Telephone Encounter - Ariane Anton LPN - 06/13/2022 3:00 PM EST Rec'd approval for nebivolol hcl 06/12/22 to 06/12/23. documented in this encounterSelect [facility]02-06-2023 Miscellaneous Notes* Telephone Encounter - Marisabel Sarabia RN - 06/12/2022 9:44 AM EST Mauro with [facility] calling and requesting most recent OV note for patient for prior authorization process for [facility]. Faxed as requested to Mauro at [phone]. Marisabel Sarabia RN documented in this encounterSelect Medical Specialty [facility]12-15-2022 Miscellaneous Notes* Telephone Encounter - Julieta Campuzano Ma - 04/20/2022 7:49 AM EST APImetricshart message sent to patient, no number on paper work to have them Faxed. * Telephone Encounter - Shahriar Brown APRN.CNP - 04/20/2022 7:36 AM EST Please fax papers as requested and then update patient this has been completed. Thank you Shahriar Brown APRN.CNP documented in this encounterSelect [facility]12-15-2022 Miscellaneous Notes* Telephone Encounter - Shahriar Brown APRN.CNP - 04/20/2022 7:26 AM EST Addressed in other mychart encounter. Shahriar Brown APRN.CNP documented in this encounterSelect Medical [facility]12-14-2022 History of Present illness Narrative* Do Delgado, RT(R) - 04/19/2022 9:30 AM EST Radiology Service Progress Note PATIENT NAME: Cassia Holland DATE OF SERVICE: April 19, 2022 TIME: 9:28 AM PATIENT IDENTITY VERIFICATION COMPLETED USING TWO (2) IDENTIFIERS: Name and Date of confirmedby patient verbally. FALL SCREENING: Has the patient had 2 falls in the last year or 1 fall with injury or currently using an Ambulatory Assistive Device (Walker, Cane, Wheelchair, Crutches, etc.)? No PATIENT GENDER DATA: Female. status: : No status: NO. PATIENT RELEVANT IMPLANT DATA REVIEWED: Not Applicable RADIOLOGY DEPARTMENT: General X-ray: Exam(s) Completed: Chest X-Ray PERIPHERAL IV DATA: Not applicable SIGNED BY: RT Patrick(R) April 19, 2022 9:28 AM documented in this encounterSelect Medical [facility]12-14-2022 Miscellaneous Notes* Telephone Encounter - Shahriar Brown APRN.CNP - 04/19/2022 8:38 AM EST See other my chart encounter Shahriar Brown APRN.CNP documented in this encounterSelect Medical [facility]12-12-2022 History of Present illness Narrative* Shahriar Brown APRN.CNP - 04/17/2022 9:42 AM EST CC: Patient presents with: URI: Started with sinus drainage last week on Sunday. Cough and congestion. Moved into chest congestion. HPI Cassia Holland is a 56 year old female who presents today for sinus congestion since last Sunday. 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 Current symptomsare sinus congestion with pressure, drainage of green nasal drainage, cough occasionally productiveof yellow sputum, sore throat, headache, some increase [...] tablet by mouth every morning and 2 tabletsby mouth every evening with meals fluticasone (FLONASE) 50 mcg/actuation nasal spray Use 2 Sprays in each nostril once daily. lansoprazole (PREVACID) 30 mg capsule Take 1 capsule by mouth daily before breakfast. 1/2 hr beforemeal. nebivolol (BYSTOLIC) 10 mg tablet Take 1 tablet by mouth once daily. EPINEPHrine (EPIPEN) 0.3 mg/0.3 mL auto-injector Use per directed for severe allergic reaction lancets (RetSKUUCH DELICA PLUS LANCET) 33 gauge Test blood sugar(s) 1 times daily. Dx: Type 2 DM - Controlled E11.9 Insulin: No blood sugar diagnostic (RetSKUUCH ULTRA TEST) test strip use 1 TEST [...] C (98.1 F) Ht 157.5 cm (5' 2) Wt 88.9 kg (196 lb) SpO2 98% [...] symptoms occur. Patient agreeable to treatment plan. Shahriar Brown APRN.CNP documented in this encounterSelect Medical [facility]11-11-2022 Miscellaneous Notes* Telephone Encounter - Marisabel Sarabia RN - 03/17/2022 11:00 AM EST Patient requesting Urology referral order and information be faxed to Dr. Wylie's office at [phone]. Faxed as requested. Marisabel Sarabia RN documented in this encounterSelect Medical [facility]11-11-2022 Miscellaneous Notes* Telephone Encounter - Shahriar Brown APRN.CNP - 03/17/2022 8:35 AM EST See other my chart encounter. Shahriar Brown APRN.CNP documented in this encounterSelect Medical [facility]11-03-2022 Miscellaneous Notes* Telephone Encounter - Yanci Horowitz LPN - 03/09/2022 7:40 AM EDT Patient phones requesting refills as follows: Requested Prescriptions Pending Prescriptions Disp Refills montelukast (SINGULAIR) 10 mg tablet [Pharmacy Med Name: MONTELUKAST SOD 10 MG TABLET] 30 tablet 11 Sig: take 1 tablet by mouth once daily REGULO-02/14/22 Labs-02/23/22 NOV-07/20/22 med filled 02/07/21 Please review and advise. Yanci Horowitz LPN documented in this [facility]10-21-2022 Miscellaneous Notes* Telephone Encounter - Julieta Campuzano Ma - 02/24/2022 9:26 AM EDT Left detailed message on [employer]. * Telephone Encounter - Shahriar Brown APRN.MOLD MAKING SUPERVISOR - 02/24/2022 7:21 AM EDT Please let patient know her urine does indicate a UTI. I am starting her on Keflex/Cephalexin twicea day for 7 days. I do not have the culture back yet, but will let her know once I do. Thank you Shahriar Brown APRN.MOLD MAKING SUPERVISOR documented in this encounterSelect Medical [facility]10-14-2022 Miscellaneous Notes* Telephone Encounter - Opal Mathews MD - 02/17/2022 5:38 PM EDT Tracy, Could you please address this, Thanks documented in this [facility]10-12-2022 Miscellaneous Notes* Telephone Encounter - Meg Myers LPN - 02/15/2022 9:37 AM EDT Patient telephoned and made aware. Meg Myers LPN * Telephone Encounter - Tracy Mendes APRN.CNP - 02/15/2022 8:21 AM EDT Please call patient and let her know her COVID-19 test and flu testing are negative. Tracy Mendes APRN.CNP documented in this encounterSelect Medical [facility]10-11-2022 History of Present illness Narrative* Tracy Mendes APRN.CNP - 02/14/2022 12:41 PM EDT 02/14/2022 Patient presents with: UTI: Pressure since [...] for similar symptoms. Follows with ENT in [place] for allergies. Denies wheezing, dyspnea, nausea, vomiting or diarrhea For the last week has had lower abdominal pressure when urinates. Also positive for urgency. Deniesback pain, dysuria, urinary frequency or hematuria. Component [...] tablet by mouth every morning and 2 tabletsby mouth every evening with meals fluticasone (FLONASE) 50 mcg/actuation nasal spray Use 2 Sprays in each nostril once daily. lansoprazole (PREVACID) 30 mg capsule Take 1 capsule by mouth daily before breakfast. 1/2 hr beforemeal. nebivolol (BYSTOLIC) 10 mg tablet Take 1 tablet by mouth once daily. EPINEPHrine (EPIPEN) 0.3 mg/0.3 mL auto-injector Use per directed for severe allergic reaction lancets (tenXerTOUCH DELICA PLUS LANCET) 33 gauge Test blood sugar(s) 1 times daily. Dx: Type 2 DM - Controlled E11.9 Insulin: No blood sugar diagnostic (tenXerTOUCH ULTRA TEST) test strip use 1 TEST [...] kg (196 lb 9.6 oz) SpO2 97% BMI35.10 kg/m . Vital signs reviewed by this [...] which included preparing to see the patient, [id number] patient care, completing clinical documentation, obtaining and/or reviewing separately obtained history, performing a medically appropriate examination, counseling and educating the pat ient/family/caregiver, and ordering medications, tests, or procedures. documented in this encounterSelect [facility]10-04-2022 History of Present illness Narrative* Kathy Alejandre APRN.CNP - 02/07/2022 11:26 AM EDT Subjective Cough Associated symptoms include ear pain, [...] tablet by mouth every morning and 2 tabletsby mouth every evening with meals fluticasone (FLONASE) 50 mcg/actuation nasal spray Use 2 Sprays in each nostril once daily. lansoprazole (PREVACID) 30 mg capsule Take 1 capsule by mouth daily before breakfast. 1/2 hr beforemeal. nebivolol (BYSTOLIC) 10 mg tablet Take 1 tablet by mouth once daily. EPINEPHrine (EPIPEN) 0.3 mg/0.3 mL auto-injector Use per directed for severe allergic reaction lancets (RetSKUUCH DELICA PLUS LANCET) 33 gauge Test blood sugar(s) 1 times daily. Dx: Type 2 DM - Controlled E11.9 Insulin: No blood sugar diagnostic (tenXerTOUCH ULTRA TEST) test strip use 1 TEST [...] Discussed expected course of illness Kathy Alejandre APRN.MOLD MAKING SUPERVISOR documented in this encounterSelect Medical [facility]10-04-2022 Instructions* Patient Instructions* Kathy Alejandre APRN.CNP - 02/07/2022 11:26 AM [...] when the body is fighting an infection. Tohelp treat a fever: Drink plenty of fluids [...] your chest such as Vicks, which can helpreduce cough. Try cough drops. Avoid smoking and other strong odors or perfumes. Try breathing exercises to keep your lungs open and clear. Take a big deep breath through your noseand hold for 5 seconds before slowly releasing. [...] of water every 10-15 minutes and increase astolerated. You can try sucking an ice cube [...] with SARS-CoV-2, the virus that causes COVID-19, frompeople who are not infected. People who are [...] to your local emergency facility: Notify the senior operator that you are seeking care for [...] expert at your local health department to determinewhen you can be around others. documented in this encounterSelect [facility]09-15-2022 History of Present illness Narrative* Shahriar Brown APRN.CNP - 01/19/2022 8:13 AM EDT CC: Patient presents with: Recheck: 4 month [...] rarely. Feels a little short of breath aftergoing to the fair last night and looking at the animals, but not to the point of needing to use herinhaler. No recent exacerbation, cough, or wheezing. Has [...] loss, no cold intolerance, no heat intolerance, nopolyuria, no polyphagia, and no polydipsia Neurologic: No [...] tablet by mouth every morning and 2 tabletsby mouth every evening with meals fluticasone (FLONASE) 50 mcg/actuation nasal spray Use 2 Sprays in each nostril once daily. lansoprazole (PREVACID) 30 mg capsule Take 1 capsule by mouth daily before breakfast. 1/2 hr beforemeal. nebivolol (BYSTOLIC) 10 mg tablet Take 1 tablet by mouth once daily. EPINEPHrine (EPIPEN) 0.3 mg/0.3 mL auto-injector Use per directed for severe allergic reaction lancets (RetSKUUCH DELICA PLUS LANCET) 33 gauge Test blood sugar(s) 1 times daily. Dx: Type 2 DM - Controlled E11.9 Insulin: No blood sugar diagnostic (RetSKUUCH ULTRA TEST) test strip use 1 TEST [...] QUADRIVALENT 6 MO - 64 YRS IM Shahriar Brown APRN.CNP Prescription instructions reviewed with patient as applicable. Potential red flag symptoms discussed with the patient. Reviewed appropriate action plan to take if red flag symptoms occur. Patient agreeable to treatment plan. Shahriar Brown APRN.CNP documented in this encounterSelect Medical [facility]08-15-2022 Miscellaneous Notes* Telephone Encounter - Michelle Judd LPN - 12/19/2021 8:28 AM EDT Patient has been identified by name and [...] you. Michelle Judd LPN documented in this encounterSelect Medical [facility]08-03-2022 Miscellaneous Notes* Telephone Encounter - Julieta Campuzano Ma - 12/07/2021 2:42 PM EDT Consult and imaging faxed to provider as requested. * Telephone Encounter - Shahriar Brown APRN.CNP - 12/07/2021 10:50 AM EDT Please fax consult to MDs as requested. Thank you Shahriar Brown APRN.CNP * Telephone Encounter - Shahriar Brown APRN.CNP - 11/11/2021 12:28 PM EDT Please call patient to schedule hepatology consult. Thank you Shahriar Brown APRN.CNP * Telephone Encounter - Maxine Davenport LPN - 11/04/2021 8:09 AM EDT Placed on desk. * Telephone Encounter - Shahriar Brown APRN.CNP - 11/04/2021 7:35 AM EDT Please get liver scan results from [facility] and lay on my desk. Thank you Shahriar Brown APRN.CNP documented in this encounterSelect Medical [facility]07-17-2022 History of Present illness Narrative* Kathy Alejandre APRN.CNP - 11/20/2021 1:20 PM EDT Subjective HPI Cassia Holland is a 56 [...] tablet by mouth every morning and 2 tabletsby mouth every evening with meals fluticasone (FLONASE) 50 mcg/actuation nasal spray Use 2 Sprays in each nostril once daily. lansoprazole (PREVACID) 30 mg capsule Take 1 capsule by mouth daily before breakfast. 1/2 hr beforemeal. losartan (COZAAR) 100 mg tablet Take 0.5 tablets by mouth once daily. citalopram (CELEXA) 20 mg tablet Take 1 tablet by mouth once daily. nebivolol (BYSTOLIC) 10 mg tablet Take 1 tablet by mouth once daily. EPINEPHrine (EPIPEN) 0.3 mg/0.3 mL auto-injector Use per directed for severe allergic reaction lancets (RetSKUUCH DELICA PLUS LANCET) 33 gauge Test blood sugar(s) 1 times daily. Dx: Type 2 DM - Controlled E11.9 Insulin: No blood sugar diagnostic (tenXerTOUCH ULTRA TEST) test strip use 1 TEST [...] illness Kathy Alejandre APRN.ANTHONY documented in this encounterSelect Medical [facility]07-17-2022 Instructions* Patient Instructions* Kathy Alejandre APRN.CNP - 11/20/2021 1:19 PM EDT ASSESSMENT/PLAN: 1. [...] Discussed expected course of illness Kathy Alejandre APRN.MOLD MAKING SUPERVISOR Beginning Home Isolation Isolation is used to separate people infected with SARS-CoV-2, the virus that causes COVID-19, frompeople who are not infected. People who are [...] to your local emergency facility: Notify the senior operator that you are seeking care for [...] expert at your local health department to determinewhen you can be around others. How to Manage Common Symptoms Associated with COVID for Adults Fever- Fever is a temperature over 100.4 F and can occur when the body is fighting an infection. Tohelp treat a fever: Drink plenty of fluids [...] your chest such as Vicks, which can helpreduce cough. Try cough drops. Avoid smoking and other strong odors or perfumes. Try breathing exercises to keep your lungs open and clear. Take a big deep breath through your noseand hold for 5 seconds before slowly releasing. [...] of water every 10-15 minutes and increase astolerated. You can try sucking an ice cube [...] or concerning to you. documented in this encounterSelect [facility]07-13-2022 Miscellaneous Notes* Telephone Encounter - Christina Ray LPN - 11/16/2021 11:30 AM EDT Patient has been identified by name and [...] you. Christina Ray LPN documented in this encounterSelect Medical [facility]06-29-2022 History of Present illness Narrative* RT Negrito(R) - 11/02/2021 2:30 PM EDT Radiology Service Progress Note PATIENT NAME: Cassia Holland DATE OF SERVICE: November 02, 2021 TIME: 2:32 PM PATIENT IDENTITY VERIFICATION COMPLETED USING TWO (2) IDENTIFIERS: Name and Date of confirmedby patient verbally. FALL SCREENING: Has the patient [...] 02, 2021 2:32 PM documented in this encounterSelect Medical [facility]06-15-2022 Miscellaneous Notes* Telephone Encounter - Tonie Day LPN - 10/19/2021 9:49 AM EDT [facility] Ultrasound calling asking for copy of report for RUQ ultrasound and spleen to be faxed to [phone]. Printed reports and faxed as requested. * Telephone Encounter - Julieta Campuzano Ma - 10/19/2021 8:22 AM EDT Order faxed. * Telephone Encounter - Shahriar Brown APRN.CNP - 10/17/2021 4:19 PM EDT Please fax order to [facility]. Thank you Shahriar Brown APRN.CNP documented in this encounterSelect Medical [facility]06-09-2022 History of Present illness Narrative* Karen Duong RT(R) - 10/13/2021 8:40 AM EDT Radiology Service Progress Note PATIENT NAME: Cassia Holladn DATE OF SERVICE: October 13, 2021 TIME: 8:41 AM PATIENT IDENTITY VERIFICATION COMPLETED USING TWO (2) IDENTIFIERS: Name and Date of confirmedby patient verbally. FALL SCREENING: Has the patient had 2 falls in the last year or 1 fall with injury or currently using an Ambulatory Assistive Device (Walker, Cane, Wheelchair, Crutches, etc.)? No PATIENT GENDER DATA: Female. status: : No status: NO. PATIENT RELEVANT IMPLANT DATA REVIEWED: Yes RADIOLOGY DEPARTMENT: General X-ray: Exam(s) Completed: Sternum X-Ray PERIPHERAL IV DATA: Not applicable SIGNED BY: RT Randy(R) October 13, 2021 8:41 AM documented in this encounterSelect Medical [facility]ty [facility]06-09-2022 History of Present illness Narrative* Shahriar Brown APRN.ANTHONY - 10/13/2021 7:52 AM EDT CC: Patient presents with: Recheck: 3 month [...] is supposed to start pulmonary rehab, and receiveda kenalog shot last at his office for [...] pain, palpitations, vomiting, change in appetite, diarrhea, orconstipation. A1c was 8.4 REVIEW OF SYSTEMS General: [...] mg capsule Take 1 capsule by mouth twicedaily for 5 days. metFORMIN ER (GLUCOPHAGE XR) 500 mg 24 hr tablet take 1 tablet by mouth every morning and 2 tabletsby mouth every evening with meals fluticasone (FLONASE) 50 mcg/actuation nasal spray Use 2 Sprays in each nostril once daily. lansoprazole (PREVACID) 30 mg capsule Take 1 capsule by mouth daily before breakfast. 1/2 hr beforemeal. losartan (COZAAR) 100 mg tablet Take 0.5 tablets by mouth once daily. hydroCHLOROthiazide (HYDRODIURIL, ESIDRIX) 25 mg tablet Take 1 tablet by mouth once daily. citalopram (CELEXA) 20 mg tablet Take 1 tablet by mouth once daily. nebivolol (BYSTOLIC) 10 mg tablet Take 1 tablet by mouth once daily. EPINEPHrine (EPIPEN) 0.3 mg/0.3 mL auto-injector Use per directed for severe allergic reaction lancets (Problemsolutions24 DELStylesight PLUS LANCET) 33 gauge Test blood sugar(s) 1 times daily. Dx: Type 2 DM - Controlled E11.9 Insulin: No blood sugar diagnostic (tenXerTOUCH ULTRA TEST) test strip use 1 TEST [...] will further evaluate. Recent labs reviewed at [facility] and [facility] No recent CMP completed, but CBC without [...] symptoms occur. Patient agreeable to treatment plan. Shahriar Brown APRN.CNP documented in this encounterSelect Medical [facility]06-06-2022 History of Present illness Narrative* Kathy Alejandre APRN.CNP - 10/10/2021 6:39 PM EDT Subjective Cassia Holland is a 56 year [...] history is provided by the patient. No flatwork finisher hand was used. UTI This is a new [...] kg (199 lb 9.6 oz) SpO2 99% BMI35.64 kg/m PAST MEDICAL HISTORY Diagnosis Date Diabetes [...] tablet by mouth every morning and 2 tabletsby mouth every evening with meals fluticasone (FLONASE) 50 mcg/actuation nasal spray Use 2 Sprays in each nostril once daily. lansoprazole (PREVACID) 30 mg capsule Take 1 capsule by mouth daily before breakfast. 1/2 hr beforemeal. losartan (COZAAR) 100 mg tablet Take 0.5 tablets by mouth once daily. hydroCHLOROthiazide (HYDRODIURIL, ESIDRIX) 25 mg tablet Take 1 tablet by mouth once daily. citalopram (CELEXA) 20 mg tablet Take 1 tablet by mouth once daily. nebivolol (BYSTOLIC) 10 mg tablet Take 1 tablet by mouth once daily. EPINEPHrine (EPIPEN) 0.3 mg/0.3 mL auto-injector Use per directed for severe allergic reaction lancets (RetSKUUCH DELICA PLUS LANCET) 33 gauge Test blood sugar(s) 1 times daily. Dx: Type 2 DM - Controlled E11.9 Insulin: No blood sugar diagnostic (tenXerTOUCH ULTRA TEST) test strip use 1 TEST [...] mg capsule Take 1 capsule by mouth twicedaily for 5 days. FAMILY HISTORY Problem Relation [...] result done 2 days ago at her icing coater office which showed 2+ bacteria, 2+ leukocytes, nitrates. Kathy Alejandre APRN.MOLD MAKING SUPERVISOR TEACHING PROVIDER (Physician/PA/[employer]) NOTE OF PERSONAL INVOLVEMENT IN CARE: I have personally seen and examined the patient and performed the medical decision-making components. I have reviewed the Advanced Practice Registered Nurse ([employer] FOR[employer]) Student's documentation and verified the findings in the note as written. Any additions or changes are noted in bold/italics. Signature: Kathy Alejandre Date: 10/10/2021 Time: 7:50 PM documented in this encounterSelect Medical Specialty [facility]06-06-2022 Instructions* Patient Instructions* Ximena Narvaez - 10/10/2021 6:27 PM EDT [...] from front to back documented in this encounterSelect Medical Specialty [facility]05-19-2022 Miscellaneous Notes* Letter - Mammography Coordinator - 09/22/2021 11:17 AM EDT September 22, 2021 PID: [id number] Cassia Holland [address] [place] [address] Dear Ms. Holland, Your recent breast imaging [...] dense breast tissue in addition to other riskfactors. If you have a healthcare provider who ordered/prescribed your screening mammogram: Please call [phone] or [phone] to schedule an appointment for your additional imaging (if youhave not already done so). If you DO [...] and reports are kept on file at [facility] as part of your permanent medical record, and are available for your continuing care. Thank you for allowing us to help in meeting your health care needs. Sincerely, Dr. Swain Interpreting Radiologist [facility] (Additional imaging) documented in this encounterSelect Medical Specialty [facility]05-16-2022 Instructions* Patient Instructions* Dyana Valadez APRN.CNP - 09/19/2021 3:35 PM EDT 1. Routine course of ibuprofen X 1 week. 2. Ice to the area. 3. If no better or any worsening, let us know. documented in this encounterSelect Medical Specialty [facility]05-16-2022 History of Present illness Narrative* Dyana Valadez APRN.CNP - 09/19/2021 3:21 PM EDT This is a 56 year old female [...] Refers that it is hit or miss. [place] like it may be a little larger [...] by mouth daily before breakfast. 1/2 hr beforemeal. metFORMIN ER (GLUCOPHAGE XR) 500 mg 24 hr tablet take 1 tablet by mouth every morning and 2 tabletsevery evening with meals losartan (COZAAR) 100 mg [...] per directed for severe allergic reaction lancets (tenXerTOUCH DELICA PLUS LANCET) 33 gauge Test blood sugar(s) 1 times daily. Dx: Type 2 DM - Controlled E11.9 Insulin: No blood sugar diagnostic (tenXerTOUCH ULTRA TEST) test strip use 1 TEST [...] as needed for worsening/no improvement. Dyana Valadez APRN.CNP The patient indicates understanding of these issues and agrees with the plan. This note was partially generated using Alloptic voice recognition system. Note was reviewed for accuracy. There may be minor misspellings or grammar miscues with Alloptic voice recognition. [facility] Miscellaneous Notes* Telephone Encounter - Elicia Kidd MA - 08/08/2021 1:38 PM EDT NOV 09/15/21 REGULO 06/16/21 Patient electronically sent a request for the following prescription(s) Pending Prescriptions Disp Refills LANSOPRAZOLE 30 MG CAPSULE,DELAYED RELEASE 30 capsule 11 Sig: Take 1 capsule by mouth daily before breakfast. 1/2 hr before meal. LANCE: No Patient aware RX will be sent to pharmacy. No need to notify patient. Please review. Elicia Kidd MA documented [facility] Author Ivett Welsh [facility] December 28, 2022 9:46am Note Date/Time December 28, 2022 9: 46am [facility] Medical Records Department [address] [place] [address] Counseling Note - Pharmacy 12/28/22945 MR#: [id number] Acct: [id number] Name: CASSIA HOLLAND Rep #:[id number] : 1965 57 From: Ivett Welsh PCP: Dr. Opal Mathews MD Status:ADM I NO Y Location: [place] [address] Pharmacy [facility] Service has performed discharge medication reconciliation and counseling for this patient. The patient was counseled on the following discharge medications and changes in medications for homegoing were reviewed. 1. NITROSTAT 2. BRILINTA The Reason for Use, instructions for use, and potential side effects were reviewed for all new medications. The patient's questions regarding all of their medications were answered. The patient was able to verbally demonstrate an understanding of their dischargemedications. The patient's discharge medication list was reviewed for discrepancies and discrepancies were resolved. The patient was counselled by Althea Rodriguez PharmD Candidate 12/28/22945 <Electronically signed by Ivett Welsh > Date _ Ivett Welsh Cosigner Signature (if applicable): Date CC: ~ Signed [facility] Work Phone: Evaluation note* Diagnosis Xyphoidalgia- Primary Disorder of bone and cartilage, unspecified [facility] Diagnosis Abnormal mammogram- Primary Abnormal mammogram, unspecified documented in this encounter [facility]* Diagnosis Frequency of urination- Primary Urinary frequency documented [facility] this [facility] noteNo assessment information availableWOhio [facility] Surgical [facility] Work Phone: Evaluation note* Diagnosis Xyphoidalgia- Primary Disorder of bone and cartilage, unspecified RUQ pain Abdominal pain, right upper quadrant Nausea Nausea alone Type 2 diabetes mellitus without complication, without long-term current use of insulin ([facility]) documented [facility] this encounter [facility]* Diagnosis Elevated liver enzymes- Primary Other nonspecific abnormal serum enzyme levels Fatty liver Other chronic nonalcoholic liver disease [facility]* Diagnosis Mastalgia Mastodynia documented [facility] this [facility]* Diagnosis Sore throat- Primary Acute pharyngitis Exposure to COVID-19 virus [facility]* Diagnosis Liver fibrosis- Primary Cirrhosis of liver without mention of alcohol Elevated liver enzymes Other nonspecific abnormal serum enzyme levels documented [facility] this [facility]* Diagnosis Type 2 diabetes [...] inoculation against influenza documented [facility] this [facility]* Diagnosis Suspected COVID-19 virus infection- Primary documented [facility] this [facility]* Diagnosis Upper respiratory symptom- Primary Other symptoms involving respiratory system and chest UTI symptoms Other symptoms involving urinary system [facility]* Diagnosis Type 2 diabetes mellitus without complication, without long-term current use of insulin (HCC) documented in this [facility]* Diagnosis Other acute sinusitis, recurrence not specified- Primary documented in this [facility]* Diagnosis Fatigue, unspecified type- Primary Acute cough Shortness of breath documented in this encounter [facility]* Diagnosis Type 2 diabetes mellitus without complication, without long-term current use of insulin ([facility]) documented in this encounter [facility]* Diagnosis Chest pain, unspecified type- Primary Palpitations Headaches Type 2 diabetes mellitus without complication, without long-term current use of insulin ([facility]) Hypertension, unspecified type documented in this encounter [facility]* Diagnosis Chest pain, unspecified type- Primary Palpitations Type 2 diabetes mellitus without complication, without long-term current use of insulin (HCC) Hypertension, unspecified type Xyphoidalgia Disorder of bone and cartilage, unspecified Headaches documented in this encounter [facility]* Diagnosis Viral illness- Primary Unspecified viral infection, in conditions classified elsewhere and of unspecified site documented in this encounter [facility]* Diagnosis SVT (supraventricular tachycardia) ([facility])- Primary Other specified cardiac dysrhythmias documented in this encounter [facility]* Diagnosis Graves disease- Primary Toxic diffuse goiter without mention of thyrotoxic crisis or storm History of Srini thyroiditis Personal history of other endocrine, metabolic, and immunity disorders Hypertension, unspecified type Acute non-recurrent maxillary sinusitis documented in this encounter [facility]* Diagnosis Graves disease- Primary Toxic diffuse goiter without mention of thyrotoxic crisis or storm History of Srini thyroiditis Personal history of other endocrine, metabolic, and immunity disorders Palpitations documented in this encounter [facility]* Diagnosis Onset Date Resolution Status Chest pain chronic Diabetes chronic Essential hypertension chron ic Graves disease chronic Palpitations chronic Raynaud disease chronic [facility] Work Phone: Evaluation note* Diagnosis Acute recurrent sinusitis, unspecified location- Primary documented in this encounter [facility]* Diagnosis Type 2 diabetes mellitus without complication, without long-term current use of insulin (HCC)- Primary Hypertension, unspecified type Liver fibrosis Cirrhosis of liver without mention of alcohol RUQ pain Abdominal pain, right upper quadrant Vaginal candidiasis Candidiasis of vulva and vagina Palpitations documented in this encounter [facility]* Diagnosis Encounter for gynecological examination (general) (routine) without abnormal findings- Primary Encounter for screening mammogram for breast cancer Vaginal itching Pruritus of genital organs Dense breast tissue on mammogram Vulvar itching Pruritus of genital organs Vulvar candidiasis Candidiasis of vulva and vagina documented [facility] this encounter [facility]* Diagnosis Diabetes (HCC) Type II or unspecified type diabetes mellitus without mention of complication, not stated as uncontrolled documented in this encounter [facility]* Diagnosis Onset Date Resolution Status Chest pain chronic Diabetes chronic Essential hypertension chron ic Graves disease chronic Palpitations chronic Raynaud disease chronic 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 Diabetes chronic Essential hypertension chron ic Graves disease chronic Raynaud disease [facility] Work Phone: Evaluation note* Diagnosis Leg swelling- Primary Swelling of limb documented in this encounter [facility]* Diagnosis Bacterial sinusitis- Primary Unspecified sinusitis (chronic) documented in this encounter [facility]* Diagnosis Onset Date Resolution Status 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 Diabetes chronic Essential hypertension chron ic Graves disease chronic Raynaud disease [facility] Work Phone: Evaluation note* Diagnosis Cellulitis of right lower extremity- Primary Cellulitis and abscess of leg, except foot Subacute sinusitis, unspecified location RUQ pain Abdominal pain, right upper quadrant Liver fibrosis Cirrhosis of liver without mention of alcohol Type 2 diabetes mellitus without complication, without long-term current use of insulin (HCC) documented in this encounter [facility]* Diagnosis Cellulitis of right lower extremity- Primary Cellulitis and abscess of leg, except foot Dependent edema Edema documented in this encounter [facility]* Diagnosis Procedure not carried out- Primary Procedure not carried out for other reasons documented in this encounter [facility]* Diagnosis Onset Date Resolution Status 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 Diabetes chronic Essential hypertension chron ic Graves disease chronic Raynaud disease chronic Dyspnea acute 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 Diabetes chronic Essential hypertension chron ic Graves disease chronic Raynaud disease [facility] Work Phone: Evaluation note* Diagnosis Onset Date Resolution Status 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 Diabetes chronic Essential hypertension chron ic Graves disease chronic Raynaud disease chronic 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 Diabetes chronic Essential hypertension chron ic Graves disease chronic Raynaud disease chronic Dyspnea resolved 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 Diabetes chronic Dyslipidemia chronic Essential hypertension chron ic Graves disease chronic Raynaud disease chronic Dyspnea resolved [facility] Work Phone: Evaluation note* Diagnosis New onset a-fib (HCC)- Primary Atrial fibrillation Type 2 diabetes mellitus without complication, without long-term current use of insulin (HCC) documented in this encounter [facility]* Diagnosis Encounter for screening mammogram for breast cancer Dense breast tissue on mammogram documented in this encounter [facility]* Diagnosis Liver fibrosis Cirrhosis of liver without mention of alcohol documented in this encounter [facility]* Diagnosis Chronic sinusitis, unspecified location- Primary documented in this encounter [facility]* Diagnosis New onset a-fib (HCC)- Primary Atrial fibrillation documented in this encounter [facility]* Diagnosis Onset Date Resolution Status 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 Diabetes chronic Essential hypertension chron ic Graves disease chronic Raynaud disease chronic Dyspnea resolved 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 Diabetes chronic Dyslipidemia chronic Essential hypertension chron ic Graves disease chronic Raynaud disease chronic Dyspnea resolved 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 Diabetes chronic Dyslipidemia chronic Essential hypertension chron ic Graves disease chronic Interstitial lung disease ch ronic Paroxysmal atrial fibrillation chronic Raynaud disease [facility] Work Phone: Evaluation note* Diagnosis Viral illness- Primary Unspecified viral infection, in conditions classified elsewhere and of unspecified site documented in this encounter [facility]* Diagnosis Onset Date Resolution Status 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 Diabetes chronic Dyslipidemia chronic Essential hypertension chron ic Graves disease chronic Raynaud disease chronic Dyspnea resolved 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 Diabetes chronic Dyslipidemia chronic Essential hypertension chron ic Graves disease chronic Interstitial lung disease ch ronic Paroxysmal atrial fibrillation chronic Raynaud disease chronic Chest pain chronic 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 Diabetes chronic Dyslipidemia chronic Essential hypertension chron ic Graves disease chronic Interstitial lung disease ch ronic Paroxysmal atrial fibrillation chronic Raynaud disease [facility] Work Phone: Evaluation note* Diagnosis Type 2 diabetes mellitus without complication, without long-term current use of insulin (HCC) documented in this encounter [facility]* Diagnosis Right upper quadrant pain- Primary Abdominal pain, right upper quadrant documented [facility] this encounter [facility]* Diagnosis Onset Date Resolution Status 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 Diabetes chronic Dyslipidemia chronic Essential hypertension chron ic Graves disease chronic Interstitial lung disease ch ronic Paroxysmal atrial fibrillation chronic Raynaud disease chronic Chest pain chronic 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 Diabetes chronic Dyslipidemia chronic Essential hypertension chron ic Graves disease chronic Interstitial lung disease ch ronic Paroxysmal atrial fibrillation chronic Raynaud disease [facility] Work Phone: Evaluation note* Diagnosis Subacute sinusitis, unspecified location- Primary Hypertension, unspecified type Atrial fibrillation, unspecified type (HCC) Type 2 diabetes mellitus without complication, without long-term current use of insulin (HCC) Anemia, unspecified type documented in this encounter [facility]* Diagnosis Anemia, unspecified type- Primary documented in this encounter [facility]* Diagnosis Onset Date Resolution Status Chest pain chronic 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 Diabetes chronic Dyslipidemia chronic Essential hypertension chron ic Graves disease chronic Interstitial lung disease ch ronic Paroxysmal atrial fibrillation chronic Raynaud disease [facility] Work Phone: Evaluation note* Diagnosis Anemia, unspecified type- Primary Hypertension, unspecified type Type 2 diabetes mellitus without complication, without long-term current use of insulin (HCC) documented in this encounter [facility] note* Diagnosis Onset Date Resolution Status Chest pain chronic 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 Diabetes chronic Dyslipidemia chronic Essential hypertension chron ic Graves disease chronic Interstitial lung disease ch ronic Paroxysmal atrial fibrillation chronic Raynaud disease chronic 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 Diabetes chronic Dyslipidemia chronic Essential hypertension chron ic Graves disease chronic Interstitial lung disease ch ronic Paroxysmal atrial fibrillation chronic Raynaud disease [facility] Work Phone: Evaluation note* Diagnosis Paroxysmal atrial fibrillation Atrial fibrillation documented in this encounter [facility]* Diagnosis Paroxysmal atrial fibrillation Atrial fibrillation Paroxysmal atrial fibrillation Atrial fibrillation documented in this encounter [facility] note* Diagnosis UTI symptoms- Primary Other symptoms involving urinary system documented in this encounter [facility]* Diagnosis Encounter for screening mammogram for breast cancer documented in this encounter [facility] note* Diagnosis Type 2 diabetes mellitus without complication, without long-term current use of insulin (HCC)- Primary Other fatigue HERMILO (obstructive sleep apnea) Obstructive sleep apnea (adult) (pediatric) Atrial fibrillation, unspecified type (HCC) Hypertension, unspecified type Anemia, unspecified type Lupus (HCC) Systemic lupus erythematosus documented in this encounter [facility] note* Diagnosis Encounter for screening mammogram for breast cancer documented in this encounter [facility] note* Diagnosis Other fatigue- Primary HERMILO (obstructive sleep apnea) Obstructive sleep apnea (adult) (pediatric) Hypertension, unspecified type Anxiety and depression Dysthymic disorder Type 2 diabetes mellitus without complication, without long-term current use of insulin (HCC) [facility]* Diagnosis Encounter for gynecological examination (general) (routine) without abnormal findings- Primary Encounter for screening mammogram for breast cancer documented [facility]* Diagnosis Fatigue, unspecified type Acute cough Shortness of breath documented [facility]* Diagnosis Type 2 diabetes mellitus without complication, without long-term current use of insulin (HCC) documented [facility] this [facility]* Diagnosis Other fatigue- Primary Hypertension, unspecified type Anxiety and depression Dysthymic disorder Encounter for immunization Need for other specified prophylactic vaccination against single bacterial disease [facility] this [facility]* Diagnosis Anemia, unspecified type- Primary documented [facility]* Diagnosis Acute midline low back pain without sciatica- Primary Hypertension, unspecified type documented [facility] this [facility]* Diagnosis Interstitial lung disease (HCC)- Primary Postinflammatory pulmonary fibrosis Graves disease Toxic diffuse goiter without mention of thyrotoxic crisis or storm Type 2 diabetes mellitus without complication, without long-term current use of insulin (HCC) Mixed connective tissue disease (HCC) Other specified diffuse disease of connective tissue Other forms of systemic lupus erythematosus, unspecified organ involvement status (HCC) Raynaud's disease without gangrene Paroxysmal atrial fibrillation (HCC) Atrial fibrillation [facility]* Diagnosis Subacute sinusitis, unspecified location- Primary documented [facility] this [facility]* Diagnosis Diabetes (HCC) Type II or unspecified type diabetes mellitus without mention of complication, not stated as uncontrolled [facility] this [facility]* Diagnosis Anemia, unspecified type- Primary documented [facility] this [facility]* Diagnosis Anemia, unspecified type- Primary Type 2 diabetes mellitus without complication, without long-term current use of insulin (HCC) documented [facility] this [facility]* Diagnosis Type 2 diabetes mellitus without complication, without long-term current use of insulin (HCC) [facility]* Diagnosis Dog scratch- Primary Other and unspecified superficial injury of other, multiple, and unspecified sites, without mention of infection Bleeding from wound Secondary and recurrent hemorrhage as an early complication of trauma [facility]* Diagnosis Puncture wound of right foot, initial encounter- Primary Not up to date with diphtheria-tetanus vaccination [facility] Additional Instructions Use the Liban wrap for comfort, ice and elevate. Return for any worsening symptoms [facility] Work Phone: Hospital Discharge instructionsAmbulatory Orders* Phase II, Outpatient Cardiac Rehab Location: None Selected [facility] Work Phone: Hospital Discharge instructions Additional Instructions STOP TAKING ASPIRIN. Keep taking plavix and I prescribed a new blood thinner called Eliquis which you take twice daily. This is to prevent blood clots which can occur when you have an irregular heartbeat called A-fib. You already take carvedilol twice daily. I am increasing the dose to 25 mg twice a day. Please call the cardiology office for follow-up appointment.[facility] Work Phone: Hospital Discharge instructions Additional Instructions Please continue taking all your medications as prescribed. If you do not have issues with your blood pressure being more elevated than normal please follow-up with your primary care doctor. If you develop chest pain further concerns please return to the emergency room. Your workup today was largely normal. I would recommend avoiding [id number] decongestants as these can raise your blood pressure. I would recommend continuing regular Mucinex to help thin out secretions in your chest and sinuses.[facility] Work Phone: Reason for referral (narrative)* Diagnostic Procedure Only (Routine) - Pending Review Specialty Diagnoses / Procedures Referred By Contac t Referred To Contact [facility] Diagnoses Abnormal mammogram Procedures MIN DIAGNOSTIC RT DIAGNOSTIC MAMMOGRAPHY COMPUTER-AIDED DETCJ Hui Tijerina, BOOKER.MOLD MAKING SUPERVISOR [address] [place] [address] [facility] [address] [place] [address] Referral ID Status Reason Start Date Expiration Date Visits Requested Visits Authorized [id number] Pending Review Auto-Generat ed Referral 09/26/2021 10/26/2022 1 1 * Diagnostic Procedure Only (Routine) - Pending Review Specialty Diagnoses / Procedures Referred By Contac t Referred To Contact [facility] IMAG[facility] Diagnoses Abnormal mammogram Procedures US BREAST LTD RT US BREAST UNI REAL TIME WITH IMAGE LIMITED Hui Lewis APRN.MOLD MAKING SUPERVISOR [address] [place] [address] Br Imaging [address] [place] [address] Referral ID Status Reason Start Date Expiration Date Visits Requested Visits Authorized [id number] Pending Review Auto-Generat ed Referral 09/26/2021 10/26/2022 1 1 [facility] for referral (narrative)* Diagnostic Procedure Only (Routine) - Closed Specialty Diagnoses / Procedures Referred By Contac t Referred To Contact XR IMAGING Diagnoses Type 2 diabetes mellitus without complication, without long-term current use of insulin (HCC) Procedures XR STERNUM 2V DESAI/LAT RADEX STERNUM MINIMUM 2 VIEWS Shahriar Brown APRN.MOLD MAKING SUPERVISOR [address] [place] [address] Xr Imaging Referral ID Status Reason Start Date Expiration Date V isits Requested Visits Authorized [id number] Closed Auto-Generate d Referral 10/13/2021 05/06/2022 1 1 * Diagnostic Procedure Only (Routine) - Closed Specialty Diagnoses / Procedures Referred By Contac t Referred To Contact US IMAGING Diagnoses Type 2 diabetes mellitus without complication, without long-term current use of insulin (HCC) RUQ pain Nausea Procedures US ABD RT UPPER QUADRANT US ABDOMINAL REAL TIME W/IMAGE LIMITED Shahriar Brown APRN.CNP [address] [place] [address] Us Imaging Referral ID Status Reason Start Date Expiration Date V isits Requested Visits Authorized [id number] Closed Auto-Generate d Referral 10/13/2021 05/06/2022 1 1 [facility] for referral (narrative)* Outpatient Procedure (Routine) - Pending Review Specialty Diagnoses / Procedures Referred By Contac t Referred To Contact [facility] Diagnoses Elevated liver enzymes Fatty liver Procedures DDI VIBRATION CONTROLLED TRANSIENT ELASTOGRAPHY (VCTE) LIVER ELASTOGRAPHY W/O IMAG W/I&R Shahriar Brown APRN.MOLD MAKING SUPERVISOR [address] [place] [address] [facility] [place] [address] [place], [place] [id number] Referral ID Status Reason Start Date Expiration Date Visits Requested Visits Authorized [id number] Pending Review Auto-Generat ed Referral 10/17/2021 10/17/2022 1 1 [facility] for referral (narrative)* Outpatient Procedure (Routine) - Pending Review Specialty Diagnoses / Procedures Referred By Contac t Referred To Contact [facility] Diagnoses Chest pain, unspecified type Palpitations Procedures ECG COMPLETE ECG ROUTINE ECG W/LEAST 12 LDS W/I&R Shahriar Brown APRN.MOLD MAKING SUPERVISOR [address] [place] [address] [facility] [place] [id number] Referral ID Status Reason Start Date Expiration Date Visits Requested Visits Authorized [id number] Pending Review Auto-Generat ed Referral 06/15/2022 06/15/2023 1 1 * Consult, Test, Treat (Routine) - Authorized Specialty Diagnoses / Procedures Referred By Contac t Referred To Contact [facility] Diagnoses Chest pain, unspecified type Palpitations Procedures ECHO ECHO TTHRC R-T 2D W/WOM-MODE COMPL SPEC&COLR D Shahriar Bronw APRN.MOLD MAKING SUPERVISOR [address] [place] [address] [facility] [place] [address] [place] [address] Referral ID Status Reason Start Date Expiration Date Visits Requested Visits Authorized [id number] Authorized Auto-Generat ed Referral 06/22/2022 05/06/2023 1 1 [facility] for referral (narrative)* Diagnostic Procedure Only (Routine) - Authorized Specialty Diagnoses / Procedures Referred By Contac t Referred To Contact US IMAGING Diagnoses Liver fibrosis Procedures US ABD RIGHT UPPER QUADRANT US ABDOMINAL REAL TIME W/IMAGE LIMITED Shahriar Brown APRN.CNP [address] [place] [address] Us Imaging Referral ID Status Reason Start Date Expiration Date Visits Requested Visits Authorized [id number] Authorized Auto-Generat ed Referral 09/21/2022 05/06/2023 1 1 T [facility] for referral (narrative)* Diagnostic Procedure Only (Routine) - Authorized Specialty Diagnoses / Procedures Referred By Contac t Referred To Contact [facility] Diagnoses Encounter for screening mammogram for breast cancer Dense breast tissue on mammogram Procedures MIN SCREENING W ROBERT SCREENING DIGITAL BREAST TOMOSYNTHESIS BI SCREENING MAMMOGRAPHY BI 2-VIEW BREAST INC Chhaya Hernandez MD [address] [place] [address] [facility] [address] [place] [address] Referral ID Status Reason Start Date Expiration Date Visits Requested Visits Authorized [id number] Authorized Auto-Generat ed Referral 11/09/2022 05/06/2023 1 1 [facility] for referral (narrative)* Diagnostic Procedure Only (Routine) - Closed Specialty Diagnoses / Procedures Referred By Contac t Referred To Contact [facility] Diagnoses Encounter for screening mammogram for breast cancer Dense breast tissue on mammogram Procedures MIN SCREENING W ROBERT SCREENING DIGITAL BREAST TOMOSYNTHESIS BI SCREENING MAMMOGRAPHY BI 2-VIEW BREAST INC Chhaya Hernandez MD [address] [place] [address] [facility] [address] [place] [address] Referral ID Status Reason Start Date Expiration Date V isits Requested Visits Authorized [id number] Closed Auto-Generate d Referral 11/09/2022 05/06/2023 1 1 [facility] for referral (narrative)* Diagnostic Procedure Only (Routine) - Closed Specialty Diagnoses / Procedures Referred By Contac t Referred To Contact US IMAGING Diagnoses Liver fibrosis Procedures US ABD RIGHT UPPER QUADRANT US ABDOMINAL REAL TIME W/IMAGE LIMITED Shahriar Brown APRN.CNP [address] [place] [address] [place] [id number] Referral ID Status Reason Start Date Expiration Date V isits Requested Visits Authorized [id number] Closed Auto-Generate d Referral 09/21/2022 05/06/2023 1 1 T [facility] for referral (narrative)* Diagnostic Procedure Only (Routine) - New Request Specialty Diagnoses / Procedures Referred By Conterik t Referred To Contact [facility] Diagnoses Encounter for screening mammogram for breast cancer Procedures MIN SCREENING W ROBERT SCREENING DIGITAL BREAST TOMOSYNTHESIS BI SCREENING MAMMOGRAPHY BI 2-VIEW BREAST INC CAD [place] Mathews MD [address] [place] [address] [facility] [address] [place] [address] Referral ID Status Reason Start Date Expiration Date Visits Requested Visits Authorized [id number] New Request Auto-Generat ed Referral 12/12/2023 01/10/2025 1 1 T [facility] for referral (narrative)* Diagnostic Procedure Only (Routine) - Closed Specialty Diagnoses / Procedures Referred By Abeba t Referred To Contact [facility] Diagnoses Encounter for screening mammogram for breast cancer Procedures MIN SCREENING W ROBERT SCREENING DIGITAL BREAST TOMOSYNTHESIS BI SCREENING MAMMOGRAPHY BI 2-VIEW BREAST INC [place] New MD [address] [place] [address] [facility] [address] [place] [address] Referral ID Status Reason Start Date Expiration Date V isits Requested Visits Authorized [id number] Closed Auto-Generate d Referral 12/12/2023 01/10/2025 1 1 [facility] for referral (narrative)* Diagnostic Procedure Only (Routine) - Authorized Specialty Diagnoses / Procedures Referred By Contac t Referred To Contact [facility] Diagnoses Encounter for screening mammogram for breast cancer Procedures MIN SCREENING W ROBERT SCREENING DIGITAL BREAST TOMOSYNTHESIS BI SCREENING MAMMOGRAPHY BI 2-VIEW BREAST INC Chhaya Hernandez MD [address] [place] [address] [facility] [address] [place] [address] Referral ID Status Reason Start Date Expiration Date Visits Requested Visits Authorized [id number] Authorized Auto-Generat ed Referral 01/21/2024 02/19/2025 1 1 [facility] for referral (narrative)* Diagnostic Procedure Only (Routine) - Closed Specialty Diagnoses / Procedures Referred By Maeganac abhi Referred To Contact XR IMAGING Diagnoses Type 2 diabetes mellitus without complication, without long-term current use of insulin (HCC) Procedures XR STERNUM 2V DESAI/LAT RADEX STERNUM MINIMUM 2 VIEWS Shahriar Brown APRN.CNP [address] [place] [address] [place] [id number] Referral ID Status Reason Start Date Expiration Date V isits Requested Visits Authorized [id number] Closed Auto-Generate d Referral 10/13/2021 05/06/2022 1 1 [facility] for referral (narrative)No reason for referral [facility] Narrative* Diagnostic Procedure Only (Routine) - Closed Specialty Diagnoses / Procedures Referred By Contac t Referred To Contact [facility] Diagnoses Encounter for screening mammogram for breast cancer Dense breast tissue on mammogram Procedures MIN SCREENING W ROBERT SCREENING DIGITAL BREAST TOMOSYNTHESIS BI SCREENING MAMMOGRAPHY BI 2-VIEW BREAST INC CAD Chhaya Crowe MD [address] [place] [address] [facility] [address] [place] [address] Referral ID Status Reason Start Date Expiration Date V isits Requested Visits Authorized [id number] Closed Auto-Generate d Referral 11/09/2022 05/06/2023 1 1 [facility] for visit Narrative* Diagnostic Procedure Only (Routine) - Closed Specialty Diagnoses / Procedures Referred By Abeba t Referred To Contact [facility] Diagnoses Encounter for screening mammogram for breast cancer Procedures MIN SCREENING W ROBERT SCREENING DIGITAL BREAST TOMOSYNTHESIS BI SCREENING MAMMOGRAPHY BI 2-VIEW BREAST INC CAD [place] Mathews MD [address] [place] [address] [facility] [address] [place] [address] Referral ID Status Reason Start Date Expiration Date V isits Requested Visits Authorized [id number] Closed Auto-Generate d Referral 12/12/2023 01/10/2025 1 1 [facility] for visit Narrative* Diagnostic Procedure Only (Routine) - Closed Specialty Diagnoses / Procedures Referred By Abeba t Referred To Contact XR IMAGING Diagnoses Type 2 diabetes mellitus without complication, without long-term current use of insulin (HCC) Procedures XR STERNUM 2V DESAI/LAT RADEX STERNUM MINIMUM 2 VIEWS Shahriar Brown APRN.MOLD MAKING SUPERVISOR [address] [place] [address] [place] [id number] Referral ID Status Reason Start Date Expiration Date V isits Requested Visits Authorized [id number] Closed Auto-Generate d Referral 10/13/2021 05/06/2022 1 1 [facility] Summary Purpose Family History No Family History Records Found Relationship Condition Age at Onset Recorded Date/T jocelyn mother Coronary artery disease Unknown Hypertension Unknown Vertigo Unknown Presence of cardiac pacemaker Unknown Cardiomegaly Unknown father Malignant neoplasm Unknown sister Sjogren's syndrome Unknown grandmother Cardiac disease Unknown grandfather Cardiac disease Unknown uncle Cardiac disease Unknown Advance Directives No Advanced Directives Records Found Advance Directive Response Recorded Date/ Time Living Will No May 15 3:49pm Power of Director Of Psychology No May 15 3:49pm Advance Directive Response Recorded Date/ Time Living Will No May 15 2:49pm Power of Director Of Psychology No May 15 021 2:49pm Advance Directive Response Recorded Date/ Time Living Will No December 03, 2022 11:20am Power of Director Of Psychology No December 03 11:20am Advance Directive Response Recorded Date/ Time Advance Directives No December 27, 2022 9:44am Living Will No December 27 9:44am Power of Director Of Psychology No December 27 9:44am Advance Directive Response Recorded Date/ Time Advance Directives on File No [facility] 2022 8:09am Advance Directives No December 27, 2022 9:44am Living Will No January 19, 2023 8:09am Power of Director Of Psychology No January 8:09am Advance Directive Response Recorded Date/ Time Advance Directives on File No Jansan carlos [facility] 2022 8:09am Advance Directives No December 27, 2022 9:44am Living Will No February 27 4:41pm Power of Director Of Psychology No February 27, 2023 4:41pm Advance Directive Response Recorded Date/ Time Advance Directives on File No [facility] 2022 7:09am Advance Directives No December 27, 2022 8:44am Living Will No March 29 023 10:36pm Power of Director Of Psychology No March 29, 2023 10:36pm Advance Directive Response Recorded Date/ Time Advance Directives on File No [facility] 2022 7:09am Advance Directives No December 27, 2022 8:44am Living Will No April 28 023 11:51pm Power of Director Of Psychology No April 28, 2023 11:51pm Advance Directive Response Recorded Date/ Time Advance Directives No December 27, 2022 8:44am Living Will No April 28 11:51pm Power of Director Of Psychology No April 28, 2023 11:51pm Advance Directive Response Recorded Date/ Time Advance Directives No December 27, 2022 8:44am Living Will No June 21 024 3:42pm Power of Director Of Psychology No June 21, 2023 3:42pm Advance Directive Response Recorded Date/ Time Advance Directives No December 27, 2022 9:44am Living Will No June 21 4:42pm Power of Director Of Psychology No June 21, 2023 4:42pm Advance Directive Response Recorded Date/ Time Living Will No October 22, 2023 4:43pm Do you have a Healthcare Power of Director Of Psychology? No October 22, 2023 4:43pm Living Will No May 12 12:44pm Do you have a Healthcare Power of Director Of Psychology? No May 12, 2024 12:44pm Living Will No April 27 1:16pm Do you have a Healthcare Power of Director Of Psychology? No April 27, 2024 1:16pm Living Will No May 10 5:34pm Do you have a Healthcare Power of Director Of Psychology? No May 10, 2024 5:34pm Advance Directives No December 27, 2022 9:44am Advance Directive Response Recorded Date/ Time Living Will No October 22, 2023 4:43pm Do you have a Healthcare Power of Director Of Psychology? No October 22, 2023 4:43pm Advance Directives No December 27, 2022 9:44am Chief Complaint and Reason for Visit Chief Complaint ELEVATED LIVER ENZYM ES Chief Complaint ELEVATED LIVER ENZYM ES INTERSTITIAL PNEUMONITIS Chief Complaint UTI Chief Complaint SVT, FAMILY HX SINISITIS Reason for Visit Chest pain Diabetes Essential hypertension Graves disease Palpitations Raynaud disease Chief Complaint SVT, FAMILY HX SINISITIS PALPITATIONS PALPITATIONS Amb Documentation Reason for Visit Chest pain Diabetes Essential hypertension Graves disease Palpitations Raynaud disease Chief Complaint SVT, FAMILY HX SINISITIS PALPITATIONS PALPITATIONS Amb Documentation CHEST PAIN ABN CARIO FUNCTION STUDY CHEST PAIN ABN CARIO FUNCTION STUDY 3 m fu ABD RIGHT LEG PAIN SWELLING Reason for Visit Chest pain Diabetes Essential hypertension Graves disease Palpitations Raynaud disease Coronary artery disease Diabetes Essential hypertension Graves disease Raynaud disease Chief Complaint SINISITIS PALPITATIONS PALPITATIONS Amb Documentation CHEST PAIN ABN CARIO FUNCTION STUDY CHEST PAIN ABN CARIO FUNCTION STUDY 3 m fu ABD RIGHT LEG PAIN SWELLING ABN FINDINGS OF ORGANS, ABD PAIN Reason for Visit Coronary artery dise [facility] Diabetes Essential hypertension Graves disease Raynaud disease Chief Complaint SINISITIS PALPITATIONS PALPITATIONS Amb Documentation CHEST PAIN ABN CARIO FUNCTION STUDY CHEST PAIN ABN CARIO FUNCTION STUDY 3 m fu ABD RIGHT LEG PAIN SWELLING ABN FINDINGS OF ORGANS, ABD PAIN ABDOMINAL PAIN Reason for Visit Coronary artery dise [facility] Diabetes Essential hypertension Graves disease Raynaud disease Chief Complaint PALPITATIONS PALPITATIONS Amb Documentation CHEST PAIN ABN CARIO FUNCTION STUDY CHEST PAIN ABN CARIO FUNCTION STUDY 3 m fu ABD RIGHT LEG PAIN SWELLING ABN FINDINGS OF ORGANS, ABD PAIN ABDOMINAL PAIN ABNORMAL STRESS TEST, SOB, CHEST PAIN Reason for Visit Coronary artery dise [facility] Diabetes Essential hypertension Graves disease Raynaud disease Chief Complaint CHEST PAIN ABN CARIO FUNCTION STUDY CHEST PAIN ABN CARIO FUNCTION STUDY 3 m fu ABD RIGHT LEG PAIN SWELLING ABN FINDINGS OF ORGANS, ABD PAIN ABDOMINAL PAIN ABNORMAL STRESS TEST, SOB, CHEST PAIN CHEST PRESSURE INT LABS PCI with coronary stent Reason for Visit Coronary artery dise [facility] Diabetes Essential hypertension Graves disease Raynaud disease Chief Complaint CHEST PAIN ABN CARIO FUNCTION STUDY CHEST PAIN ABN CARIO FUNCTION STUDY 3 m fu ABD RIGHT LEG PAIN SWELLING ABN FINDINGS OF ORGANS, ABD PAIN ABDOMINAL PAIN ABNORMAL STRESS TEST, SOB, CHEST PAIN CHEST PRESSURE INT LABS PCI with coronary stent PARESTHESIA OF RIGHT ARM S/P [facility] STENTS 12/27/22 Reason for Visit Coronary artery dise [facility] Diabetes Essential hypertension Graves disease Raynaud disease Dyspnea Coronary artery disease Diabetes Essential hypertension Graves disease Raynaud disease Chief Complaint CHEST PAIN ABN CARIO FUNCTION STUDY CHEST PAIN ABN CARIO FUNCTION STUDY 3 m fu ABD RIGHT LEG PAIN SWELLING ABN FINDINGS OF ORGANS, ABD PAIN ABDOMINAL PAIN ABNORMAL STRESS TEST, SOB, CHEST PAIN CHEST PRESSURE INT LABS PCI with coronary stent PARESTHESIA OF RIGHT ARM S/P [facility] STENTS 12/27/22 PARESTHESIA OF RIGHT ARM PCI with stent Reason for Visit Coronary artery dise [facility] Diabetes Essential hypertension Graves disease Raynaud disease Dyspnea Coronary artery disease Diabetes Essential hypertension Graves disease Raynaud disease Chief Complaint 3 m fu ABD RIGHT LEG PAIN SWELLING ABN FINDINGS OF ORGANS, ABD PAIN ABDOMINAL PAIN ABNORMAL STRESS TEST, SOB, CHEST PAIN CHEST PRESSURE INT LABS PCI with coronary stent PARESTHESIA OF RIGHT ARM S/P [facility] STENTS 12/27/22 PARESTHESIA OF RIGHT ARM PCI with stent SOB PCI with stent SINUSITIS Reason for Visit Coronary artery dise ase Diabetes Essential hypertension Graves disease Raynaud disease Dyspnea Coronary artery disease Diabetes Essential hypertension Graves disease Raynaud disease Chief Complaint 3 m fu ABD RIGHT LEG PAIN SWELLING ABN FINDINGS OF ORGANS, ABD PAIN ABDOMINAL PAIN ABNORMAL STRESS TEST, SOB, CHEST PAIN CHEST PRESSURE INT LABS PCI with coronary stent PARESTHESIA OF RIGHT ARM S/P [facility] STENTS 12/27/22 PARESTHESIA OF RIGHT ARM PCI with stent SOB SINUSITIS 4 wk fu PCI with stent CHEST PAIN Reason for Visit Coronary artery dise ase Diabetes Essential hypertension Graves disease Raynaud disease Coronary artery disease Diabetes Essential hypertension Graves disease Raynaud disease Dyspnea Coronary artery disease Diabetes Dyslipidemia Essential hypertension Graves disease Raynaud disease Dyspnea Chief Complaint 3 m fu ABD RIGHT LEG PAIN SWELLING ABN FINDINGS OF ORGANS, ABD PAIN ABDOMINAL PAIN ABNORMAL STRESS TEST, SOB, CHEST PAIN CHEST PRESSURE INT LABS PCI with coronary stent PARESTHESIA OF RIGHT ARM S/P [facility] STENTS 12/27/22 PARESTHESIA OF RIGHT ARM PCI with stent SOB SINUSITIS 4 wk fu CHEST PAIN PCI with stent Reason for Visit Coronary artery dise ase Diabetes Essential hypertension Graves disease Raynaud disease Coronary artery disease Diabetes Essential hypertension Graves disease Raynaud disease Dyspnea Coronary artery disease Diabetes Dyslipidemia Essential hypertension Graves disease Raynaud disease Dyspnea Chief Complaint RIGHT LEG PAIN SWELL ING ABN FINDINGS OF ORGANS, ABD PAIN ABDOMINAL PAIN ABNORMAL STRESS TEST, SOB, CHEST PAIN CHEST PRESSURE INT LABS PCI with coronary stent PARESTHESIA OF RIGHT ARM S/P [facility] STENTS 12/27/22 PARESTHESIA OF RIGHT ARM PCI with stent SOB SINUSITIS 4 wk fu CHEST PAIN PCI with stent chronic sinusitis S/P [facility] 02/27 PCI with stent AFIB Reason for Visit Coronary artery dise ase Diabetes Essential hypertension Graves disease Raynaud disease Dyspnea Coronary artery disease Diabetes Dyslipidemia Essential hypertension Graves disease Raynaud disease Dyspnea Coronary artery disease Diabetes Dyslipidemia Essential hypertension Graves disease Interstitial lung disease Paroxysmal atrial fibrillation Raynaud disease Chief Complaint ABN FINDINGS OF O RGANS, ABD PAIN ABDOMINAL PAIN ABNORMAL STRESS TEST, SOB, CHEST PAIN CHEST PRESSURE INT LABS PCI with coronary stent PARESTHESIA OF RIGHT ARM S/P [facility] STENTS 12/27/22 PARESTHESIA OF RIGHT ARM PCI with stent SOB SINUSITIS 4 wk fu CHEST PAIN PCI with stent chronic sinusitis S/P [facility] 02/27 AFIB PCI with stent Reason for Visit Coronary artery dise ase Diabetes Essential hypertension Graves disease Raynaud disease Dyspnea Coronary artery disease Diabetes Dyslipidemia Essential hypertension Graves disease Raynaud disease Dyspnea Coronary artery disease Diabetes Dyslipidemia Essential hypertension Graves disease Interstitial lung disease Paroxysmal atrial fibrillation Raynaud disease Chief Complaint CHEST PRESSURE INT LABS PCI with coronary stent PARESTHESIA OF RIGHT ARM S/P [facility] STENTS 12/27/22 PARESTHESIA OF RIGHT ARM PCI with stent SOB SINUSITIS 4 wk fu CHEST PAIN PCI with stent chronic sinusitis S/P [facility] 02/27 AFIB PCI with stent PCI with stent afib Reason for Visit Coronary artery dise ase Diabetes Essential hypertension Graves disease Raynaud disease Dyspnea Coronary artery disease Diabetes Dyslipidemia Essential hypertension Graves disease Raynaud disease Dyspnea Coronary artery disease Diabetes Dyslipidemia Essential hypertension Graves disease Interstitial lung disease Paroxysmal atrial fibrillation Raynaud disease Chief Complaint INT LABS PCI with coronary stent PARESTHESIA OF RIGHT ARM S/P [facility] STENTS 12/27/22 PARESTHESIA OF RIGHT ARM PCI with stent SOB SINUSITIS 4 wk fu CHEST PAIN PCI with stent chronic sinusitis S/P [facility] 02/27 AFIB PCI with stent PCI with stent afib Reason for Visit Coronary artery dise ase Diabetes Essential hypertension Graves disease Raynaud disease Dyspnea Coronary artery disease Diabetes Dyslipidemia Essential hypertension Graves disease Raynaud disease Dyspnea Coronary artery disease Diabetes Dyslipidemia Essential hypertension Graves disease Interstitial lung disease Paroxysmal atrial fibrillation Raynaud disease Chief Complaint 4 wk fu CHEST PAIN PCI with stent chronic sinusitis S/P [facility] 02/27 AFIB PCI with stent PCI with stent afib S/P [facility] 04/29 INT LABS Reason for Visit Coronary artery dise ase Diabetes Dyslipidemia Essential hypertension Graves disease Raynaud disease Dyspnea Coronary artery disease Diabetes Dyslipidemia Essential hypertension Graves disease Interstitial lung disease Paroxysmal atrial fibrillation Raynaud disease Chest pain Coronary artery disease Diabetes Dyslipidemia Essential hypertension Graves disease Interstitial lung disease Paroxysmal atrial fibrillation Raynaud disease Chief Complaint 4 wk fu CHEST PAIN PCI with stent chronic sinusitis S/P [facility] 02/27 AFIB PCI with stent PCI with stent afib S/P [facility] 04/29 INT LABS CHEST PAIN abd pain Reason for Visit Coronary artery dise ase Diabetes Dyslipidemia Essential hypertension Graves disease Raynaud disease Dyspnea Coronary artery disease Diabetes Dyslipidemia Essential hypertension Graves disease Interstitial lung disease Paroxysmal atrial fibrillation Raynaud disease Chest pain Coronary artery disease Diabetes Dyslipidemia Essential hypertension Graves disease Interstitial lung disease Paroxysmal atrial fibrillation Raynaud disease Chief Complaint CHEST PAIN PCI with stent chronic sinusitis S/P [facility] 02/27 AFIB PCI with stent PCI with stent afib S/P [facility] 04/29 INT LABS CHEST PAIN abd pain CHEST PAIN Reason for Visit Coronary artery dise ase Diabetes Dyslipidemia Essential hypertension Graves disease Interstitial lung disease Paroxysmal atrial fibrillation Raynaud disease Chest pain Coronary artery disease Diabetes Dyslipidemia Essential hypertension Graves disease Interstitial lung disease Paroxysmal atrial fibrillation Raynaud disease Chief Complaint PCI with stent PCI with stent afib S/P [facility] 04/29 INT LABS CHEST PAIN CHEST PAIN abd pain CHEST PAIN Reason for Visit Chest pain Coronary artery disease Diabetes Dyslipidemia Essential hypertension Graves disease Interstitial lung disease Paroxysmal atrial fibrillation Raynaud disease Chief Complaint PCI with stent afib S/P [facility] 04/29 INT LABS CHEST PAIN CHEST PAIN abd pain CHEST PAIN 3 M FU E ORDER Reason for Visit Chest pain Coronary artery disease Diabetes Dyslipidemia Essential hypertension Graves disease Interstitial lung disease Paroxysmal atrial fibrillation Raynaud disease Coronary artery disease Diabetes Dyslipidemia Essential hypertension Graves disease Interstitial lung disease Paroxysmal atrial fibrillation Raynaud disease Chief Complaint S/P [facility] 04/29 INT LABS CHEST PAIN CHEST PAIN abd pain CHEST PAIN 3 M FU E ORDER [place]//LABWORK SCANNED IN US ACCT Reason for Visit Chest pain Coronary artery disease Diabetes Dyslipidemia Essential hypertension Graves disease Interstitial lung disease Paroxysmal atrial fibrillation Raynaud disease Coronary artery disease Diabetes Dyslipidemia Essential hypertension Graves disease Interstitial lung disease Paroxysmal atrial fibrillation Raynaud disease Chief Complaint Admit Date 6 M FU April 15, 2024 11:11am EYE PROBLEM April 27, 2024 12:02pm GRAVES DISEASE/MIXEDCONNECTIVETISSUE DIS EASE. RX H May 06, 2024 7:24am SORE THROAT May 10, 2024 3: 54pm PREOP May 14, 2024 1: 49pm 3 M FU May 21, 2024 8 :48am STOOL June 17, 2024 3:06pm LOW IRON LEVELS June 18, 2024 9:15am INT LABS TWO DR'S June 18, 2024 9:42am PCP ASKED PT TO BE SEEN SOONER THAN SEPT . June 30, 2024 9:37am INT LAB ORDERS July 17, 2024 1:3 0pm CHEST PAIN July 28, 2024 6:4 5am Reason for Visit Admit Date Coronary artery disease April 15 024 11:11am Dyslipidemia April 15, 2024 11:11am Essential hypertension April 15 11:11am Paroxysmal atrial fibrillation April 15, 2024 11:11am Acute on chronic blood loss anemia Janua 2024 12:55pm Occult GI bleeding May 14, 2024 12 :55pm Elevated LFTs May 21, 2024 8 :48am Gastric polyps May 21, 2024 8 :48am Anemia May 21, 2024 8 :48am Fatigue June 18, 2024 9:15am Fatty liver June 18, 2024 9:15am Anemia June 18, 2024 9:15am Coronary artery disease June 30, 2 025 9:37am Diabetes June 30, 2024 9:37am Dyslipidemia June 30, 2024 9:37am Essential hypertension June 30 9:37am Graves disease June 30, 2024 9:37am Interstitial lung disease June 30, 2024 9:37am Paroxysmal atrial fibrillation June 30, 2024 9:37am Raynaud disease June 30, 2024 9:37am Chief Complaint Admit Date 6 M FU April 15, 2024 11:11am EYE PROBLEM April 27, 2024 12:02pm GRAVES DISEASE/MIXEDCONNECTIVETISSUE DIS EASE. RX H May 06, 2024 7:24am SORE THROAT May 10, 2024 3: 54pm PREOP May 14, 2024 1: 49pm 3 M FU May 21, 2024 8 :48am STOOL June 17, 2024 3:06pm LOW IRON LEVELS June 18, 2024 9:15am INT LABS TWO 'Roberto June 18, 2024 9:42am PCP ASKED PT TO BE SEEN SOONER THAN JAN . June 30, 2024 9:37am INT LAB ORDERS July 17, 2024 1:3 0pm CHEST PAIN July 28, 2024 6:4 5am E-ORDER July 31, 2024 12: 57pm Chief Complaint Admit Date 6 M FU April 15, 2024 11:11am EYE PROBLEM April 27, 2024 12:02pm GRAVES DISEASE/MIXEDCONNECTIVETISSUE DIS EASE. RX H May 06, 2024 7:24am SORE THROAT May 10, 2024 3: 54pm PREOP May 14, 2024 1: 49pm 3 M FU May 21, 2024 8 :48am STOOL June 17, 2024 3:06pm LOW IRON LEVELS June 18, 2024 9:15am INT LABS KYREE BROWN'Roberto June 18, 2024 9:42am PCP ASKED PT TO BE SEEN SOONER THAN SEPT . June 30, 2024 9:37am INT LAB ORDERS July 17, 2024 1:3 0pm ACUTE SINUSITIS July 21, 2024 3:4 9pm CHEST PAIN July 28, 2024 6:4 5am E-ORDER July 31, 2024 12: 57pm Chief Complaint Admit Date EYE PROBLEM April 27, 2024 12:02pm GRAVES DISEASE/MIXEDCONNECTIVETISSUE DIS EASE. RX H May 06, 2024 7:24am SORE THROAT May 10, 2024 3: 54pm PREOP May 14, 2024 1: 49pm 3 M FU May 21, 2024 8 :48am STOOL June 17, 2024 3:06pm LOW IRON LEVELS June 18, 2024 9:15am INT LABS TWO JULIÁN June 18, 2024 9:42am PCP ASKED PT TO BE SEEN SOONER THAN SEPT . June 30, 2024 9:37am INT LAB ORDERS July 17, 2024 1:3 0pm ACUTE SINUSITIS July 21, 2024 3:4 9pm CHEST PAIN July 28, 2024 6:4 5am E-ORDER July 31, 2024 12: 57pm CAD/ASHD August 18, 2024 6:4 9am Reason for Visit Admit Date Acute on chronic blood loss anemia Janua 2024 12:55pm Occult GI bleeding May 14, 2024 12 :55pm Elevated LFTs May 21, 2024 8 :48am Gastric polyps May 21, 2024 8 :48am Anemia May 21, 2024 8 :48am Fatigue June 18, 2024 9:15am Fatty liver June 18, 2024 9:15am Anemia June 18, 2024 9:15am Coronary artery disease June 30, 9:37am Diabetes June 30, 2024 9:37am Dyslipidemia June 30, 2024 9:37am Essential hypertension June 30 9:37am Graves disease June 30, 2024 9:37am Interstitial lung disease June 30, 2024 9:37am Paroxysmal atrial fibrillation June 30, 2024 9:37am Raynaud disease June 30, 2024 9:37am Chief Complaint Admit Date STOOL June 17, 2024 3:06pm LOW IRON LEVELS June 18, 2024 9:15am INT LABS TWO DR'S June 18, 2024 9:42am PCP ASKED PT TO BE SEEN SOONER THAN SEPT . June 30, 2024 9:37am INT LAB ORDERS July 17, 2024 1:3 0pm ACUTE SINUSITIS July 21, 2024 3:4 9pm CHEST PAIN July 28, 2024 6:4 5am E-ORDER July 31, 2024 12: 57pm CAD/ASHD August 18, 2024 12: 00am CAD/ASHD August 18, 2024 6:4 9am CAD/ASHD August 20, 2024 5:1 1pm DYSPNEA September 19, 2024 8:13a m Reason for Visit Admit Date Fatigue June 18, 2024 9:15am Fatty liver June 18, 2024 9:15am Anemia June 18, 2024 9:15am Coronary artery disease June 30, 2 025 9:37am Diabetes June 30, 2024 9:37am Dyslipidemia June 30, 2024 9:37am Essential hypertension June 30 9:37am Graves disease June 30, 2024 9:37am Interstitial lung disease June 30, 2024 9:37am Paroxysmal atrial fibrillation June 30, 2024 9:37am Raynaud disease June 30, 2024 9:37am Chief Complaint Admit Date PCP ASKED PT TO BE SEEN SOONER THAN JAN . June 30, 2024 9:37am INT LAB ORDERS July 17, 2024 1:3 0pm ACUTE SINUSITIS July 21, 2024 3:4 9pm CHEST PAIN July 28, 2024 6:4 5am E-ORDER July 31, 2024 12: 57pm CAD/ASHD August 18, 2024 12: 00am CAD/ASHD August 18, 2024 6:4 9am CAD/ASHD August 20, 2024 5:1 1pm DYSPNEA September 19, 2024 8:13a m 3 M FU October 20, 2024 1:35 pm Reason for Visit Admit Date Coronary artery disease June 30, 2 025 9:37am Diabetes June 30, 2024 9:37am Dyslipidemia June 30, 2024 9:37am Essential hypertension June 30 9:37am Graves disease June 30, 2024 9:37am Interstitial lung disease June 30, 2024 9:37am Paroxysmal atrial fibrillation June 30, 2024 9:37am Raynaud disease June 30, 2024 9:37am Chief Complaint Admit Date PCP ASKED PT TO BE SEEN SOONER THAN SEPT . June 30, 2024 9:37am INT LAB ORDERS July 17, 2024 1:3 0pm ACUTE SINUSITIS July 21, 2024 3:4 9pm CHEST PAIN July 28, 2024 6:4 5am E-ORDER July 31, 2024 12: 57pm CAD/ASHD August 18, 2024 12: 00am CAD/ASHD August 18, 2024 6:4 9am CAD/ASHD August 20, 2024 5:1 1pm DYSPNEA September 19, 2024 8:13a m 3 M FU October 20, 2024 1:35 pm EORDERS October 21, 2024 9:21 am LABSPEC October 28, 2024 10:3 6am Reason for Visit Admit Date Coronary artery disease June 30 9:37am Diabetes June 30, 2024 9:37am Dyslipidemia June 30, 2024 9:37am Essential hypertension June 30 9:37am Graves disease June 30, 2024 9:37am Interstitial lung disease June 30, 2024 9:37am Paroxysmal atrial fibrillation June 30, 2024 9:37am Raynaud disease June 30, 2024 9:37am Coronary artery disease October 20, 2024 1:35pm Diabetes October 20, 2024 1:35 pm Dyslipidemia October 20, 2024 1:35 pm Essential hypertension October 20, 2024 1 :35pm Graves disease October 20, 2024 1:35 pm Interstitial lung disease October 20 1:35pm Paroxysmal atrial fibrillation October 1:35pm Raynaud disease October 20, 2024 1:35 pm Reason for Referral Specialty Diagnoses / Procedures Referred By Abeba moe Referred To Contact Diagnoses Liver fibrosis Elevated liver enzymes Procedures CONSULT TO HEPATOLOGY OFFICE/OUTPATIENT [facility] 60-74 MINUTES 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, 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.[employer] 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 [address] [place] [address] Referral ID Status Reason Start Date Expiration Date Visits Requested Visits Authorized [id number] Pending Review PCP Requested Referral 11/11/2021 11/11/2022 1 1 Specialty Diagnoses / Procedures Referred By Contac t Referred To Contact Shahriar Brown APRN.[employer] SUPERVISOR [address] [place] [address] Referral ID Status Reason Start Date Expiration Date V isits Requested Visits Authorized [id number] Pending Review 1 1 Specialty Diagnoses / Procedures Referred By Contac t Referred To Contact Cardiology Diagnoses SVT (supraventricular tachycardia) ([facility]) Procedures CONSULT TO CARDIOLOGY OFFICE/OUTPATIENT [facility] 60-74 MINUTES Shahriar Brown APRN.[employer] MAKING SUPERVISOR [address] [place] [address] Referral ID Status Reason Start Date Expiration Date Visits Requested Visits Authorized [id number] Pending Review PCP Requested Referral 07/26/2022 07/26/2023 1 1 Specialty Diagnoses / Procedures Referred By Contac t Referred To Contact Endocrinology Diagnoses Graves disease History of Srini thyroiditis Procedures CONSULT TO ENDOCRINOLOGY OFFICE/OUTPATIENT [facility] 60-74 MINUTES Shahriar Brown APRN.[employer] MAKING SUPERVISOR [address] [place] [address] Referral ID Status Reason Start Date Expiration Date Visits Requested Visits Authorized [id number] Pending Review PCP Requested Referral 08/17/2022 08/17/2023 1 1 Specialty Diagnoses / Procedures Referred By Contac t Referred To Contact Diagnoses Paroxysmal atrial fibrillation Procedures CT CARDIAC PULMONARY VENOGRAM VA CHG CT HEART CONTRAST EVAL CARDIAC STRUCT/MORPH Ya Cleveland MD [address] [place] [id number] Referral ID Status Reason Start Date Expiration Date Visits Re quested Visits Authorized [id number] Closed 04/06/2023 04/30/2024 1 1 Specialty Diagnoses / Procedures Referred By Contac t Referred To Contact Diagnoses Paroxysmal atrial fibrillation Procedures MOBILE CARDIAC TELEMETRY Ya Cleveland MD [address] [place] [address] Referral ID Status Reason Start Date Expiration Date V isits Requested Visits Authorized [id number] New Request 09/27/2023 10/21/2024 1 1 Specialty Diagnoses / Procedures Referred By Contac t Referred To Contact Procedures ECG Pat Turner, HAND [employer]ING FORMER-[employer] MAKING SUPERVISOR [address] [place] [address] Referral ID Status Reason Start Date Expiration Date V isits Requested Visits Authorized [id number] New Request 09/27/2023 10/21/2024 1 1 Specialty Diagnoses / Procedures Referred By Contac t Referred To Contact Diagnoses Subacute sinusitis, unspecified location Shahriar Brown APRN.[employer]OLD MAKING SUPERVISOR [address] [place] [address] Referral ID Status Reason Start Date Expiration Date Visits Re quested Visits Authorized [id number] Closed 1 1 Health Concerns Infection Onset Date [...] ized section and content) DATE CREATED AUTHOR 01/14/2020 [facility] DATE CREATED AUTHOR AUTHOR'S ORGANIZ ATION 04/06/2023 [facility] DATE CREATED AUTHOR AUTHOR'S ORGANIZ ATION 10/28/2024 [facility] DATE CREATED AUTHOR AUTHOR'S ORGANIZ ATION 10/29/2024 [facility] DATE CREATED AUTHOR AUTHOR'S ORGANIZ ATION 10/30/2024 [facility] Source Comments (unrecognize d section and content) In the event this informatio n is protected by the Federal Confidentiality of Alcohol and Drug Abuse Patient Records regulations: The Federal rules restrict any use of the information to criminally investigate or prosecute any alcohol or drug abuse patient.[facility] the event this information is protected by the Federal Confidentiality of Alcohol and Drug Abuse Patient Records regulations: The Federal rules restrict any use of the information to criminally investigate or prosecute any alcohol or drug abuse patient.[facility]In the event this information is protected by the Federal Confidentiality of Alcohol and Drug Abuse Patient Records regulations: The Federal rules restrict any use of the information to criminally investigate or prosecute any alcohol or drug abuse patient.[facility]In the event this information is protected by the Federal Confidentiality of Alcohol and Drug Abuse Patient Records regulations: The Federal rules restrict any use of the information to criminally investigate or prosecute any alcohol or drug abuse patient.[facility]In the event this information is protected by the Federal Confidentiality of Alcohol and Drug Abuse Patient Records regulations: The Federal rules restrict any use of the information to criminally investigate or prosecute any alcohol or drug abuse patient.[facility]In the event this information is protected by the Federal Confidentiality of Alcohol and Drug Abuse Patient Records regulations: The Federal rules restrict any use of the information to criminally investigate or prosecute any alcohol or drug abuse patient.[facility] NorthIn the event this information is protected by the Federal Confidentiality of Alcohol and Drug Abuse Patient Records regulations: The Federal rules restrict any use of the information to criminally investigate or prosecute any alcohol or drug abuse patient.[facility] NorthIn the event this information is protected by the Federal Confidentiality of Alcohol and Drug Abuse Patient Records regulations: The Federal rules restrict any use of the information to criminally investigate or prosecute any alcohol or drug abuse patient.[facility] NorthIn the event this information is protected by the Federal Confidentiality of Alcohol and Drug Abuse Patient Records regulations: The Federal rules restrict any use of the information to criminally investigate or prosecute any alcohol or drug abuse patient.[facility] NorthIn the event this information is protected by the Federal Confidentiality of Alcohol and Drug Abuse Patient Records regulations: The Federal rules restrict any use of the information to criminally investigate or prosecute any alcohol or drug abuse patient.[facility] NorthIn the event this information is protected by the Federal Confidentiality of Alcohol and Drug Abuse Patient Records regulations: The Federal rules restrict any use of the information to criminally investigate or prosecute any alcohol or drug abuse patient.[facility] NorthIn the event this information is protected by the Federal Confidentiality of Alcohol and Drug Abuse Patient Records regulations: The Federal rules restrict any use of the information to criminally investigate or prosecute any alcohol or drug abuse patient.[facility] NorthIn the event this information is protected by the Federal Confidentiality of Alcohol and Drug Abuse Patient Records regulations: The Federal rules restrict any use of the information to criminally investigate or prosecute any alcohol or drug abuse patient.[facility] NorthIn the event this information is protected by the Federal Confidentiality of Alcohol and Drug Abuse Patient Records regulations: The Federal rules restrict any use of the information to criminally investigate or prosecute any alcohol or drug abuse patient.[facility] NorthIn the event this information is protected by the Federal Confidentiality of Alcohol and Drug Abuse Patient Records regulations: The Federal rules restrict any use of the information to criminally investigate or prosecute any alcohol or drug abuse patient.[facility] NorthIn the event this information is protected by the Federal Confidentiality of Alcohol and Drug Abuse Patient Records regulations: The Federal rules restrict any use of the information to criminally investigate or prosecute any alcohol or drug abuse patient.[facility] NorthIn the event this information is protected by the Federal Confidentiality of Alcohol and Drug Abuse Patient Records regulations: The Federal rules restrict any use of the information to criminally investigate or prosecute any alcohol or drug abuse patient.[facility] NorthIn the event this information is protected by the Federal Confidentiality of Alcohol and Drug Abuse Patient Records regulations: The Federal rules restrict any use of the information to criminally investigate or prosecute any alcohol or drug abuse patient.[facility] NorthIn the event this information is protected by the Federal Confidentiality of Alcohol and Drug Abuse Patient Records regulations: The Federal rules restrict any use of the information to criminally investigate or prosecute any alcohol or drug abuse patient.[facility] NorthIn the event this information is protected by the Federal Confidentiality of Alcohol and Drug Abuse Patient Records regulations: The Federal rules restrict any use of the information to criminally investigate or prosecute any alcohol or drug abuse patient.[facility] NorthIn the event this information is protected by the Federal Confidentiality of Alcohol and Drug Abuse Patient Records regulations: The Federal rules restrict any use of the information to criminally investigate or prosecute any alcohol or drug abuse patient.[facility] NorthIn the event this information is protected by the Federal Confidentiality of Alcohol and Drug Abuse Patient Records regulations: The Federal rules restrict any use of the information to criminally investigate or prosecute any alcohol or drug abuse patient.[facility] NorthIn the event this information is protected by the Federal Confidentiality of Alcohol and Drug Abuse Patient Records regulations: The Federal rules restrict any use of the information to criminally investigate or prosecute any alcohol or drug abuse patient.[facility] NorthIn the event this information is protected by the Federal Confidentiality of Alcohol and Drug Abuse Patient Records regulations: The Federal rules restrict any use of the information to criminally investigate or prosecute any alcohol or drug abuse patient.[facility] NorthIn the event this information is protected by the Federal Confidentiality of Alcohol and Drug Abuse Patient Records regulations: The Federal rules restrict any use of the information to criminally investigate or prosecute any alcohol or drug abuse patient.[facility] NorthIn the event this information is protected by the Federal Confidentiality of Alcohol and Drug Abuse Patient Records regulations: The Federal rules restrict any use of the information to criminally investigate or prosecute any alcohol or drug abuse patient.[facility] NorthIn the event this information is protected by the Federal Confidentiality of Alcohol and Drug Abuse Patient Records regulations: The Federal rules restrict any use of the information to criminally investigate or prosecute any alcohol or drug abuse patient.[facility] NorthIn the event this information is protected by the Federal Confidentiality of Alcohol and Drug Abuse Patient Records regulations: The Federal rules restrict any use of the information to criminally investigate or prosecute any alcohol or drug abuse patient.[facility] the event this information is protected by the Federal Confidentiality of Alcohol and Drug Abuse Patient Records regulations: The Federal rules restrict any use of the information to criminally investigate or prosecute any alcohol or drug abuse patient.[facility] NorthIn the event this information is protected by the Federal Confidentiality of Alcohol and Drug Abuse Patient Records regulations: The Federal rules restrict any use of the information to criminally investigate or prosecute any alcohol or drug abuse patient.[facility] NorthIn the event this information is protected by the Federal Confidentiality of Alcohol and Drug Abuse Patient Records regulations: The Federal rules restrict any use of the information to criminally investigate or prosecute any alcohol or drug abuse patient.[facility] the event this information is protected by the Federal Confidentiality of Alcohol and Drug Abuse Patient Records regulations: The Federal rules restrict any use of the information to criminally investigate or prosecute any alcohol or drug abuse patient.[facility] NorthIn the event this information is protected by the Federal Confidentiality of Alcohol and Drug Abuse Patient Records regulations: The Federal rules restrict any use of the information to criminally investigate or prosecute any alcohol or drug abuse patient.[facility] NorthIn the event this information is protected by the Federal Confidentiality of Alcohol and Drug Abuse Patient Records regulations: The Federal rules restrict any use of the information to criminally investigate or prosecute any alcohol or drug abuse patient.[facility] NorthIn the event this information is protected by the Federal Confidentiality of Alcohol and Drug Abuse Patient Records regulations: The Federal rules restrict any use of the information to criminally investigate or prosecute any alcohol or drug abuse patient.[facility] NorthIn the event this information is protected by the Federal Confidentiality of Alcohol and Drug Abuse Patient Records regulations: The Federal rules restrict any use of the information to criminally investigate or prosecute any alcohol or drug abuse patient.[facility] NorthIn the event this information is protected by the Federal Confidentiality of Alcohol and Drug Abuse Patient Records regulations: The Federal rules restrict any use of the information to criminally investigate or prosecute any alcohol or drug abuse patient.[facility] NorthIn the event this information is protected by the Federal Confidentiality of Alcohol and Drug Abuse Patient Records regulations: The Federal rules restrict any use of the information to criminally investigate or prosecute any alcohol or drug abuse patient.[facility] NorthIn the event this information is protected by the Federal Confidentiality of Alcohol and Drug Abuse Patient Records regulations: The Federal rules restrict any use of the information to criminally investigate or prosecute any alcohol or drug abuse patient.[facility] NorthIn the event this information is protected by the Federal Confidentiality of Alcohol and Drug Abuse Patient Records regulations: The Federal rules restrict any use of the information to criminally investigate or prosecute any alcohol or drug abuse patient.[facility] NorthIn the event this information is protected by the Federal Confidentiality of Alcohol and Drug Abuse Patient Records regulations: The Federal rules restrict any use of the information to criminally investigate or prosecute any alcohol or drug abuse patient.[facility]In the event this information is protected by the Federal Confidentiality of Alcohol and Drug Abuse Patient Records regulations: The Federal rules restrict any use of the information to criminally investigate or prosecute any alcohol or drug abuse patient.[facility]In the event this information is protected by the Federal Confidentiality of Alcohol and Drug Abuse Patient Records regulations: The Federal rules restrict any use of the information to criminally investigate or prosecute any alcohol or drug abuse patient.[facility]In the event this information is protected by the Federal Confidentiality of Alcohol and Drug Abuse Patient Records regulations: The Federal rules restrict any use of the information to criminally investigate or prosecute any alcohol or drug abuse patient.[facility] [place] [facility]In the event this information is protected by the Federal Confidentiality of Alcohol and Drug Abuse Patient Records regulations: The Federal rules restrict any use of the information to criminally investigate or prosecute any alcohol or drug abuse patient.[facility] [place] [facility]In the event this information is protected by the Federal Confidentiality of Alcohol and Drug Abuse Patient Records regulations: The Federal rules restrict any use of the information to criminally investigate or prosecute any alcohol or drug abuse patient.[facility] [place] [facility]In the event this information is protected by the Federal Confidentiality of Alcohol and Drug Abuse Patient Records regulations: The Federal rules restrict any use of the information to criminally investigate or prosecute any alcohol or drug abuse patient.[facility] [place] [facility]In the event this information is protected by the Federal Confidentiality of Alcohol and Drug Abuse Patient Records regulations: The Federal rules restrict any use of the information to criminally investigate or prosecute any alcohol or drug abuse patient.[facility] [place] [facility]In the event this information is protected by the Federal Confidentiality of Alcohol and Drug Abuse Patient Records regulations: The Federal rules restrict any use of the information to criminally investigate or prosecute any alcohol or drug abuse patient.[facility] [place] [facility]In the event this information is protected by the Federal Confidentiality of Alcohol and Drug Abuse Patient Records regulations: The Federal rules restrict any use of the information to criminally investigate or prosecute any alcohol or drug abuse patient.[facility] [place] [facility]In the event this information is protected by the Federal Confidentiality of Alcohol and Drug Abuse Patient Records regulations: The Federal rules restrict any use of the information to criminally investigate or prosecute any alcohol or drug abuse patient.[facility] [place] [facility]In the event this information is protected by the Federal Confidentiality of Alcohol and Drug Abuse Patient Records regulations: The Federal rules restrict any use of the information to criminally investigate or prosecute any alcohol or drug abuse patient.[facility] [place] [facility]In the event this information is protected by the Federal Confidentiality of Alcohol and Drug Abuse Patient Records regulations: The Federal rules restrict any use of the information to criminally investigate or prosecute any alcohol or drug abuse patient.[facility] [place] [facility]In the event this information is protected by the Federal Confidentiality of Alcohol and Drug Abuse Patient Records regulations: The Federal rules restrict any use of the information to criminally investigate or prosecute any alcohol or drug abuse patient.[facility] [place] [facility]In the event this information is protected by the Federal Confidentiality of Alcohol and Drug Abuse Patient Records regulations: The Federal rules restrict any use of the information to criminally investigate or prosecute any alcohol or drug abuse patient.[facility] [place] [facility]In the event this information is protected by the Federal Confidentiality of Alcohol and Drug Abuse Patient Records regulations: The Federal rules restrict any use of the information to criminally investigate or prosecute any alcohol or drug abuse patient.[facility] [place] [facility]In the event this information is protected by the Federal Confidentiality of Alcohol and Drug Abuse Patient Records regulations: The Federal rules restrict any use of the information to criminally investigate or prosecute any alcohol or drug abuse patient.[facility] [place] [facility]In the event this information is protected by the Federal Confidentiality of Alcohol and Drug Abuse Patient Records regulations: The Federal rules restrict any use of the information to criminally investigate or prosecute any alcohol or drug abuse patient.[facility] [place] [facility]In the event this information is protected by the Federal Confidentiality of Alcohol and Drug Abuse Patient Records regulations: The Federal rules restrict any use of the information to criminally investigate or prosecute any alcohol or drug abuse patient.[facility] [place] [facility]In the event this information is protected by the Federal Confidentiality of Alcohol and Drug Abuse Patient Records regulations: The Federal rules restrict any use of the information to criminally investigate or prosecute any alcohol or drug abuse patient.[facility] [place] [facility]In the event this information is protected by the Federal Confidentiality of Alcohol and Drug Abuse Patient Records regulations: The Federal rules restrict any use of the information to criminally investigate or prosecute any alcohol or drug abuse patient.[facility] [place] [facility]In the event this information is protected by the Federal Confidentiality of Alcohol and Drug Abuse Patient Records regulations: The Federal rules restrict any use of the information to criminally investigate or prosecute any alcohol or drug abuse patient.[facility] [place] NorthIn the event this information is protected by the Federal Confidentiality of Alcohol and Drug Abuse Patient Records regulations: The Federal rules restrict any use of the information to criminally investigate or prosecute any alcohol or drug abuse patient.[facility] [place] NorthIn the event this information is protected by the Federal Confidentiality of Alcohol and Drug Abuse Patient Records regulations: The Federal rules restrict any use of the information to criminally investigate or prosecute any alcohol or drug abuse patient.[facility] [place] NorthIn the event this information is protected by the Federal Confidentiality of Alcohol and Drug Abuse Patient Records regulations: The Federal rules restrict any use of the information to criminally investigate or prosecute any alcohol or drug abuse patient.[facility] [place] NorthIn the event this information is protected by the Federal Confidentiality of Alcohol and Drug Abuse Patient Records regulations: The Federal rules restrict any use of the information to criminally investigate or prosecute any alcohol or drug abuse patient.[facility] [place] NorthIn the event this information is protected by the Federal Confidentiality of Alcohol and Drug Abuse Patient Records regulations: The Federal rules restrict any use of the information to criminally investigate or prosecute any alcohol or drug abuse patient.[facility] [place] NorthIn the event this information is protected by the Federal Confidentiality of Alcohol and Drug Abuse Patient Records regulations: The Federal rules restrict any use of the information to criminally investigate or prosecute any alcohol or drug abuse patient.[facility] [place] NorthIn the event this information is protected by the Federal Confidentiality of Alcohol and Drug Abuse Patient Records regulations: The Federal rules restrict any use of the information to criminally investigate or prosecute any alcohol or drug abuse patient.[facility] [place] NorthIn the event this information is protected by the Federal Confidentiality of Alcohol and Drug Abuse Patient Records regulations: The Federal rules restrict any use of the information to criminally investigate or prosecute any alcohol or drug abuse patient.[facility] [place] NorthIn the event this information is protected by the Federal Confidentiality of Alcohol and Drug Abuse Patient Records regulations: The Federal rules restrict any use of the information to criminally investigate or prosecute any alcohol or drug abuse patient.[facility] [place] NorthIn the event this information is protected by the Federal Confidentiality of Alcohol and Drug Abuse Patient Records regulations: The Federal rules restrict any use of the information to criminally investigate or prosecute any alcohol or drug abuse patient.[facility] [place] NorthIn the event this information is protected by the Federal Confidentiality of Alcohol and Drug Abuse Patient Records regulations: The Federal rules restrict any use of the information to criminally investigate or prosecute any alcohol or drug abuse patient.[facility] [place] NorthIn the event this information is protected by the Federal Confidentiality of Alcohol and Drug Abuse Patient Records regulations: The Federal rules restrict any use of the information to criminally investigate or prosecute any alcohol or drug abuse patient.[facility] [place] NorthIn the event this information is protected by the Federal Confidentiality of Alcohol and Drug Abuse Patient Records regulations: The Federal rules restrict any use of the information to criminally investigate or prosecute any alcohol or drug abuse patient.[facility] [place] NorthIn the event this information is protected by the Federal Confidentiality of Alcohol and Drug Abuse Patient Records regulations: The Federal rules restrict any use of the information to criminally investigate or prosecute any alcohol or drug abuse patient.[facility] [place] NorthIn the event this information is protected by the Federal Confidentiality of Alcohol and Drug Abuse Patient Records regulations: The Federal rules restrict any use of the information to criminally investigate or prosecute any alcohol or drug abuse patient.[facility] [place] NorthIn the event this information is protected by the Federal Confidentiality of Alcohol and Drug Abuse Patient Records regulations: The Federal rules restrict any use of the information to criminally investigate or prosecute any alcohol or drug abuse patient.[facility] the event this information is protected by the Federal Confidentiality of Alcohol and Drug Abuse Patient Records regulations: The Federal rules restrict any use of the information to criminally investigate or prosecute any alcohol or drug abuse patient.[facility] [place] NorthIn the event this information is protected by the Federal Confidentiality of Alcohol and Drug Abuse Patient Records regulations: The Federal rules restrict any use of the information to criminally investigate or prosecute any alcohol or drug abuse patient.[facility] [place] NorthIn the event this information is protected by the Federal Confidentiality of Alcohol and Drug Abuse Patient Records regulations: The Federal rules restrict any use of the information to criminally investigate or prosecute any alcohol or drug abuse patient.[facility]In the event this information is protected by the Federal Confidentiality of Alcohol and Drug Abuse Patient Records regulations: The Federal rules restrict any use of the information to criminally investigate or prosecute any alcohol or drug abuse patient.[facility] [place] [facility]In the event this information is protected by the Federal Confidentiality of Alcohol and Drug Abuse Patient Records regulations: The Federal rules restrict any use of the information to criminally investigate or prosecute any alcohol or drug abuse patient.[facility] [place] NorthIn the event this information is protected by the Federal Confidentiality of Alcohol and Drug Abuse Patient Records regulations: The Federal rules restrict any use of the information to criminally investigate or prosecute any alcohol or drug abuse patient.[facility] [place] NorthIn the event this information is protected by the Federal Confidentiality of Alcohol and Drug Abuse Patient Records regulations: The Federal rules restrict any use of the information to criminally investigate or prosecute any alcohol or drug abuse patient.[facility] [place] NorthIn the event this information is protected by the Federal Confidentiality of Alcohol and Drug Abuse Patient Records regulations: The Federal rules restrict any use of the information to criminally investigate or prosecute any alcohol or drug abuse patient.[facility] [place] NorthIn the event this information is protected by the Federal Confidentiality of Alcohol and Drug Abuse Patient Records regulations: The Federal rules restrict any use of the information to criminally investigate or prosecute any alcohol or drug abuse patient.[facility] [place] NorthIn the event this information is protected by the Federal Confidentiality of Alcohol and Drug Abuse Patient Records regulations: The Federal rules restrict any use of the information to criminally investigate or prosecute any alcohol or drug abuse patient.[facility] [place] NorthIn the event this information is protected by the Federal Confidentiality of Alcohol and Drug Abuse Patient Records regulations: The Federal rules restrict any use of the information to criminally investigate or prosecute any alcohol or drug abuse patient.[facility] [place] NorthIn the event this information is protected by the Federal Confidentiality of Alcohol and Drug Abuse Patient Records regulations: The Federal rules restrict any use of the information to criminally investigate or prosecute any alcohol or drug abuse patient.[facility] [place] NorthIn the event this information is protected by the Federal Confidentiality of Alcohol and Drug Abuse Patient Records regulations: The Federal rules restrict any use of the information to criminally investigate or prosecute any alcohol or drug abuse patient.[facility] [place] NorthIn the event this information is protected by the Federal Confidentiality of Alcohol and Drug Abuse Patient Records regulations: The Federal rules restrict any use of the information to criminally investigate or prosecute any alcohol or drug abuse patient.[facility] [place] NorthIn the event this information is protected by the Federal Confidentiality of Alcohol and Drug Abuse Patient Records regulations: The Federal rules restrict any use of the information to criminally investigate or prosecute any alcohol or drug abuse patient.[facility] [place] NorthIn the event this information is protected by the Federal Confidentiality of Alcohol and Drug Abuse Patient Records regulations: The Federal rules restrict any use of the information to criminally investigate or prosecute any alcohol or drug abuse patient.[facility] [place] NorthIn the event this information is protected by the Federal Confidentiality of Alcohol and Drug Abuse Patient Records regulations: The Federal rules restrict any use of the information to criminally investigate or prosecute any alcohol or drug abuse patient.[facility] [place] NorthIn the event this information is protected by the Federal Confidentiality of Alcohol and Drug Abuse Patient Records regulations: The Federal rules restrict any use of the information to criminally investigate or prosecute any alcohol or drug abuse patient.[facility] [place] NorthIn the event this information is protected by the Federal Confidentiality of Alcohol and Drug Abuse Patient Records regulations: The Federal rules restrict any use of the information to criminally investigate or prosecute any alcohol or drug abuse patient.[facility] [place] NorthIn the event this information is protected by the Federal Confidentiality of Alcohol and Drug Abuse Patient Records regulations: The Federal rules restrict any use of the information to criminally investigate or prosecute any alcohol or drug abuse patient.[facility] [place] NorthIn the event this information is protected by the Federal Confidentiality of Alcohol and Drug Abuse Patient Records regulations: The Federal rules restrict any use of the information to criminally investigate or prosecute any alcohol or drug abuse patient.[facility] [place] NorthIn the event this information is protected by the Federal Confidentiality of Alcohol and Drug Abuse Patient Records regulations: The Federal rules restrict any use of the information to criminally investigate or prosecute any alcohol or drug abuse patient.[facility] [place] NorthIn the event this information is protected by the Federal Confidentiality of Alcohol and Drug Abuse Patient Records regulations: The Federal rules restrict any use of the information to criminally investigate or prosecute any alcohol or drug abuse patient.[facility] [place] NorthIn the event this information is protected by the Federal Confidentiality of Alcohol and Drug Abuse Patient Records regulations: The Federal rules restrict any use of the information to criminally investigate or prosecute any alcohol or drug abuse patient.[facility] [place] NorthIn the event this information is protected by the Federal Confidentiality of Alcohol and Drug Abuse Patient Records regulations: The Federal rules restrict any use of the information to criminally investigate or prosecute any alcohol or drug abuse patient.[facility] [place] NorthIn the event this information is protected by the Federal Confidentiality of Alcohol and Drug Abuse Patient Records regulations: The Federal rules restrict any use of the information to criminally investigate or prosecute any alcohol or drug abuse patient.[facility] [place] NorthIn the event this information is protected by the Federal Confidentiality of Alcohol and Drug Abuse Patient Records regulations: The Federal rules restrict any use of the information to criminally investigate or prosecute any alcohol or drug abuse patient.[facility] [place] NorthIn the event this information is protected by the Federal Confidentiality of Alcohol and Drug Abuse Patient Records regulations: The Federal rules restrict any use of the information to criminally investigate or prosecute any alcohol or drug abuse patient.[facility] [place] NorthIn the event this information is protected by the Federal Confidentiality of Alcohol and Drug Abuse Patient Records regulations: The Federal rules restrict any use of the information to criminally investigate or prosecute any alcohol or drug abuse patient.[facility] [place] NorthIn the event this information is protected by the Federal Confidentiality of Alcohol and Drug Abuse Patient Records regulations: The Federal rules restrict any use of the information to criminally investigate or prosecute any alcohol or drug abuse patient.[facility] [place] NorthIn the event this information is protected by the Federal Confidentiality of Alcohol and Drug Abuse Patient Records regulations: The Federal rules restrict any use of the information to criminally investigate or prosecute any alcohol or drug abuse patient.[facility] [place] NorthIn the event this information is protected by the Federal Confidentiality of Alcohol and Drug Abuse Patient Records regulations: The Federal rules restrict any use of the information to criminally investigate or prosecute any alcohol or drug abuse patient.[facility] [place] NorthIn the event this information is protected by the Federal Confidentiality of Alcohol and Drug Abuse Patient Records regulations: The Federal rules restrict any use of the information to criminally investigate or prosecute any alcohol or drug abuse patient.[facility] [place] NorthIn the event this information is protected by the Federal Confidentiality of Alcohol and Drug Abuse Patient Records regulations: The Federal rules restrict any use of the information to criminally investigate or prosecute any alcohol or drug abuse patient.[facility] [place] NorthIn the event this information is protected by the Federal Confidentiality of Alcohol and Drug Abuse Patient Records regulations: The Federal rules restrict any use of the information to criminally investigate or prosecute any alcohol or drug abuse patient.[facility] [place] NorthIn the event this information is protected by the Federal Confidentiality of Alcohol and Drug Abuse Patient Records regulations: The Federal rules restrict any use of the information to criminally investigate or prosecute any alcohol or drug abuse patient.[facility] [place] NorthIn the event this information is protected by the Federal Confidentiality of Alcohol and Drug Abuse Patient Records regulations: The Federal rules restrict any use of the information to criminally investigate or prosecute any alcohol or drug abuse patient.[facility] [place] NorthIn the event this information is protected by the Federal Confidentiality of Alcohol and Drug Abuse Patient Records regulations: The Federal rules restrict any use of the information to criminally investigate or prosecute any alcohol or drug abuse patient.[facility] [place] NorthIn the event this information is protected by the Federal Confidentiality of Alcohol and Drug Abuse Patient Records regulations: The Federal rules restrict any use of the information to criminally investigate or prosecute any alcohol or drug abuse patient.[facility] [place] NorthIn the event this information is protected by the Federal Confidentiality of Alcohol and Drug Abuse Patient Records regulations: The Federal rules restrict any use of the information to criminally investigate or prosecute any alcohol or drug abuse patient.[facility] [place] NorthIn the event this information is protected by the Federal Confidentiality of Alcohol and Drug Abuse Patient Records regulations: The Federal rules restrict any use of the information to criminally investigate or prosecute any alcohol or drug abuse patient.[facility] the event this information is protected by the Federal Confidentiality of Alcohol and Drug Abuse Patient Records regulations: The Federal rules restrict any use of the information to criminally investigate or prosecute any alcohol or drug abuse patient.[facility] the event this information is protected by the Federal Confidentiality of Alcohol and Drug Abuse Patient Records regulations: The Federal rules restrict any use of the information to criminally investigate or prosecute any alcohol or drug abuse patient.[facility]In the event this information is protected by the Federal Confidentiality of Alcohol and Drug Abuse Patient Records regulations: The Federal rules restrict any use of the information to criminally investigate or prosecute any alcohol or drug abuse patient.[facility] the event this information is protected by the Federal Confidentiality of Alcohol and Drug Abuse Patient Records regulations: The Federal rules restrict any use of the information to criminally investigate or prosecute any alcohol or drug abuse patient.[facility] the event this information is protected by the Federal Confidentiality of Alcohol and Drug Abuse Patient Records regulations: The Federal rules restrict any use of the information to criminally investigate or prosecute any alcohol or drug abuse patient.[facility] Reason for Visit (unrecogniz ed section and content) Reason Onset Date Comments Refill Request 08/08/2021 Reason Comments Acute Visit lump on sternum x 1 week Specialty Diagnoses / Procedures Referred By Contac t Referred To Contact Internal Medicine / INTERNAL MEDICINE Diagnoses 3 month follow up Procedures 4C EST Shahriar Brown APRN.MOLD MAKING SUPERVISOR [address] [place] [address] Opal Mathews MD [address] [place] [address] Referral ID Status Reason Start Date Expiration Date Visits Re quested Visits Authorized [id number] Closed 09/15/2021 12/14/2021 1 1 Reason Comments Orders Reason Comments UTI frquency of urinatio n x 2 days Specialty Diagnoses / Procedures Referred By Contac t Referred To Contact [facility] / [facility] Diagnoses uti symptoms x2days Procedures EST SAME DAY Self [facility] [address] [place] [address] Referral ID Status Reason Start Date Expiration Date V isits Requested Visits Authorized [id number] Outside PCP 10/10/2021 01/08/2022 1 1 Reason Comments Recheck 3 month follow up Specialty Diagnoses / Procedures Referred By Contac t Referred To Contact Internal Medicine / INTERNAL MEDICINE Diagnoses RED SPOTS HANDS AND RT SHOULDER AND FOOT Procedures EST Opal Mcdonald MD [address] [place] [address] Opal Mathews MD [address] [place] [address] Referral ID Status Reason Start Date Expiration Date V isits Requested Visits Authorized [id number] Authorized 11/24/2020 11/24/2021 99 99 Specialty Diagnoses / Procedures Referred By Contac t Referred To Contact COMPONENT ENGINEER Diagnoses Encounter for general adult medical examination without abnormal findings mamm Procedures SCREENING MAMMOGRAPHY BI 2-VIEW BREAST INC CAD mamm Hui Lewis APRN.MOLD MAKING SUPERVISOR [address] [place] [address] [employer] [facility] [employer] [address] [place] [address] Referral ID Status Reason Start Date Expiration Date V isits Requested Visits Authorized [id number] Closed OON/Self Pay Override 11/02/2021 05/06/2022 1 1 Reason Comments Refill Request Reason Comments Sore Throat ST and drainage-woke up with symptoms-COVID exposure Specialty Diagnoses / Procedures Referred By Contac t Referred To Contact [facility] / [facility] Diagnoses Sore Throat - COVID exposure Procedures EST SAME DAY Alessia Lawrence APRN.MOLD MAKING SUPERVISOR [address] [place] [address] [facility] [address] [place] [address] Referral ID Status Reason Start Date Expiration Date V isits Requested Visits Authorized [id number] Pending Review 11/20/2021 02/18/2022 1 1 Reason Onset Date Comments Recheck 4 month follow u p Immunizations 01/19/2022 Flu vaccination Specialty Diagnoses / Procedures Referred By Contac t Referred To Contact Internal Medicine / INTERNAL MEDICINE Diagnoses Follow-up examination 4 month Follow up Procedures OFFICE/OUTPATIENT ESTABLISHED MOD MDM 30-39 MIN 4C EST Opal Mathews MD [address] [place] [address] Shahriar Brown APRN.MOLD MAKING SUPERVISOR [address] [place] [address] Referral ID Status Reason Start Date Expiration Date Visits Re quested Visits Authorized [id number] Closed 01/19/2022 05/06/2022 1 1 Reason Comments Cough Cough, diarrhea, sin us, bodyaches, fever and ST x 4 days Specialty Diagnoses / Procedures Referred By Contac t Referred To Contact [facility] / [facility] Diagnoses diarrhea, sinus, bodyaches, low grade fever, cough and sore throat Procedures OFFICE/OUTPATIENT ESTABLISHED [facility] 30-39 MIN EST SAME DAY Self [facility] [address] [place] [id number] Referral ID Status Reason Start Date Expiration Date Visits Re quested Visits Authorized [id number] Closed 02/07/2022 05/06/2022 1 1 Reason Comments UTI Pressure since been on ATB Musculoskeletal Problem Achy all over; exposed to covid Specialty Diagnoses / Procedures Referred By Contac t Referred To Contact Family Medicine / FAMILY MEDICINE Diagnoses Encounter for general adult medical examination without abnormal findings UTI/not feeling well Procedures OFFICE/OUTPATIENT ESTABLISHED [facility] 30-39 MIN 4C EST Podlogar, Tracy, HAND SPRING FORMER.MOLD MAKING SUPERVISOR [address] [place] [id number] PodlogarTracy, HAND SPRING FORMER.MOLD MAKING SUPERVISOR [address] [place] [phone] Referral ID Status Reason Start Date Expiration Date Visits Re quested Visits Authorized [id number] Closed 02/14/2022 05/06/2022 1 1 Reason Comments Results Reason Comments Fax Request Reason Comments URI Started with sinus d rainage last week on Sunday. Cough and congestion. Moved into chest congestion. Specialty Diagnoses / Procedures Referred By Contac t Referred To Contact Internal Medicine / INTERNAL MEDICINE Diagnoses Sinus congestion Cough No energy sinus congestion and cough, no energy Procedures OFFICE/OUTPATIENT ESTABLISHED [facility] 30-39 MIN 4C EST Self Older, Shahriar, HAND SPRING FORMER.MOLD MAKING SUPERVISOR [address] [place] [phone] Referral ID Status Reason Start Date Expiration Date Visits Re quested Visits Authorized [id number] Closed 04/17/2022 05/06/2022 1 1 Reason Onset Date Comments Refill Request 06/08/2022 Reason Comments Patient Request Reason Comments Insurance Authorization Reason Comments Recheck Elevated BP and BS, headaches Specialty Diagnoses / Procedures Referred By Contac t Referred To Contact Internal Medicine / INTERNAL MEDICINE Diagnoses BP (high blood pressure) high BP Procedures OFFICE/OUTPATIENT ESTABLISHED [facility] 30-39 MIN 4C EST Self OlderShahriar, HAND SPRING FORMER.MOLD MAKING SUPERVISOR [address] [place] [address] Referral ID Status Reason Start Date Expiration Date Visits Re quested Visits Authorized [id number] Closed 06/15/2022 05/06/2023 1 1 Reason Comments Recheck 2 week follow up Specialty Diagnoses / Procedures Referred By Contac t Referred To Contact Internal Medicine / INTERNAL MEDICINE Diagnoses Encounter for follow-up examination after completed treatment for conditions other than malignant neoplasm 2 wk follow up Procedures OFFICE/OUTPATIENT ESTABLISHED [facility] 30-39 MIN 4C EST Self OlderShahriar, HAND SPRING FORMER.MOLD MAKING SUPERVISOR [address] [place] [address] Referral ID Status Reason Start Date Expiration Date Visits Re quested Visits Authorized [id number] Closed 06/26/2022 05/06/2023 1 1 Reason Comments Same Day Appointment sinus pressure, con gestion,fever chills,body aches,cough,nausea x since Sunday Specialty Diagnoses / Procedures Referred By Conterik t Referred To Contact Internal Medicine / INTERNAL MEDICINE Diagnoses Cough Fever Sinus pressure sinus pressure, congestion, cough, fever Procedures OFFICE/OUTPATIENT ESTABLISHED [facility] 30-39 MIN 4C Opal Sandhu MD [address] [place] [address] Opal Mathews MD [address] [place] [address] Referral ID Status Reason Start Date Expiration Date Visits Re quested Visits Authorized [id number] Closed 07/17/2022 05/06/2023 1 1 Reason Comments patient update/illness persisting Reason Comments Results Reason Comments New Patient Reason Comments Faxed cardiology referral to [facility] Reason Comments Recheck Follow up, discuss T hyroid Specialty Diagnoses / Procedures Referred By Contac t Referred To Contact Internal Medicine / INTERNAL MEDICINE Diagnoses Thyroid condition discuss possible thyroid issues Procedures OFFICE/OUTPATIENT ESTABLISHED [facility] 30-39 MIN 4C EST Opal Mathews MD [address] [place] [address] Shahriar Brown APRN.MOLD MAKING SUPERVISOR [address] [place] [address] Referral ID Status Reason Start Date Expiration Date Visits Re quested Visits Authorized [id number] Closed 08/17/2022 05/06/2023 1 1 Reason Comments Head Congestion Head congestion, cou gh, sinus pain, headaches x 3 days Specialty Diagnoses / Procedures Referred By Contac t Referred To Contact Internal Medicine / INTERNAL MEDICINE Diagnoses Nasal congestion nasal congestion, sinus pressure, drainage Procedures OFFICE/OUTPATIENT ESTABLISHED [facility] 30-39 MIN 4C EST Shahriar Brown APRN.MOLD MAKING SUPERVISOR [address] [place] [address] Shahriar Brown APRN.MOLD MAKING SUPERVISOR [address] [place] [address] Referral ID Status Reason Start Date Expiration Date Visits Re quested Visits Authorized [id number] Closed 09/04/2022 05/06/2023 1 1 Reason Comments Recheck 2 week BP follow up Specialty Diagnoses / Procedures Referred By Contac t Referred To Contact Internal Medicine / INTERNAL MEDICINE Diagnoses Follow-up exam BP follow up Procedures OFFICE/OUTPATIENT ESTABLISHED [facility] 30-39 MIN 4C Opal Sandhu MD [address] [place] [address] Shahriar Brown APRN.MOLD MAKING SUPERVISOR [address] [place] [address] Referral ID Status Reason Start Date Expiration Date Visits Re quested Visits Authorized [id number] Closed 09/14/2022 05/06/2023 1 1 Reason Comments [...] month follow up Procedures OFFICE/OUTPATIENT ESTABLISHED [facility] 30-39 MIN 4C Opal Sandhu MD [address] [place] [address] Shahriar Brown APRN.MOLD MAKING SUPERVISOR [address] [place] [address] Referral ID Status Reason Start Date Expiration Date V isits Requested Visits Authorized [id number] Authorized 12/11/2022 05/06/2023 2 2 Reason Comments Cellulitis Update Reason Comments Recheck Follow up cellulitis Specialty Diagnoses / Procedures Referred By Contac t Referred To Contact Internal Medicine / INTERNAL MEDICINE Diagnoses Follow-up exam follow up - cellulitis Procedures OFFICE/OUTPATIENT ESTABLISHED MOD MDM 30-39 MIN 4C EST Self Older, Shahriar, BOOKER.MOLD MAKING SUPERVISOR [address] [place] [phone] Referral ID Status Reason Start Date Expiration Date Visits Re quested Visits Authorized [id number] Closed 12/20/2022 05/06/2023 1 1 Specialty Diagnoses / Procedures Referred By Contac t Referred To Contact [facility] / [facility] Diagnoses FEELING OF NEEDING TO URINATE AND THEN UNABLE TO GET MUCH OUT, ALSO HAVING A LOW GRADE 100.4 FEVER - PATIENT HAD A HEART CATH AND 2 STENTS PLACED ON 12/27/22 Procedures EST SAME DAY Self [facility] [address] [place] [phone] Referral ID Status Reason Start Date Expiration Date V isits Requested Visits Authorized [id number] Outside PCP 12/31/2022 03/01/2023 1 1 Reason Comments Recheck ER follow up, AFIB Specialty Diagnoses / Procedures Referred By Contac t Referred To Contact Internal Medicine / INTERNAL MEDICINE Diagnoses Follow-up exam 6 week follow up Procedures OFFICE/OUTPATIENT ESTABLISHED MOD MDM 30-39 MIN 4C EST Self Older, Shahriar, HAND SPRING FORMER.MOLD MAKING SUPERVISOR [address] [place] [address] Referral ID Status Reason Start Date Expiration Date Visits Re quested Visits Authorized [id number] Closed 02/08/2023 06/06/2023 1 1 Reason Comments Radiology US Specialty Diagnoses / Procedures Referred By Contac t Referred To Contact US IMAGING Diagnoses Liver fibrosis Procedures US ABD RIGHT UPPER QUADRANT US ABDOMINAL REAL TIME W/IMAGE LIMITED Kevin, Shahriar, HAND SPRING FORMER.MOLD MAKING SUPERVISOR [address] [place] [address] [place] [address] Referral ID Status Reason Start Date Expiration Date V isits Requested Visits Authorized [id number] Closed Auto-Generate d Referral 09/21/2022 05/06/2023 1 1 Reason Comments Same Day Appointment sick not feeling we ll, sore throat, ear pain, temp this weekend,coughing Reason Comments Follow Up Hypertension and thy roid Reason Comments Flu Like Symptoms Nausea, low fever, b odyaches x this AM, exposure to Covid and Flu Reason Onset Date Comments Refill Request 06/19/2023 Reason Comments Nausea Left side mid abd pa in, low grade fever x 4 days Reason Comments Nausea & upset stomach Reason Comments Patient Update Reason Comments Recheck BP follow up Reason Comments Recheck 4 week BP follow up Reason Onset Date Comments Refill Request 09/07/2023 Specialty Diagnoses / Procedures Referred By Contac t Referred To Contact Diagnoses Paroxysmal atrial fibrillation Procedures CT CARDIAC PULMONARY VENOGRAM VA CHG CT HEART CONTRAST EVAL CARDIAC STRUCT/MORPH Ya Cleveland MD [address] [place] [address] Referral ID Status Reason Start Date Expiration Date Visits Re quested Visits Authorized [id number] Closed 04/06/2023 04/30/2024 1 1 Specialty Diagnoses / [facility] Diagnoses Paroxysmal atrial fibrillation Paroxysmal atrial fibrillation [I48.0] Procedures VA COMPRE EP EVAL ABLTJ ATR FIB PULM VEIN ISOLATION ABLATION SCHED INTERCARDIAC A-FIB TRANSEPTAL BY PULM VEIN ISOLATION W/EP EVAL ([id number]) Ya Cleveland MD [address] [place] [address] [facility] [address] [place] [address] Referral ID Status Reason Start Date Expiration Date Visits Re quested Visits Authorized [id number] 1 1 Reason Comments Appointment Reason Comments Patient Question Reason Onset Date Comments Refill Request 11/12/2023 Reason Comments Recheck Follow up Reason Onset Date Comments Refill Request 01/15/2024 Reason Comments Recheck 4 week follow up Specialty Diagnoses / Procedures Referred By Abeba t Referred To Contact Radiology / [facility] Diagnoses fatigue, acute cough, shortness of breath Procedures RADIOLOGIC EXAM CHEST 2 VIEWS XR CHEST Kevin, Shahriar, BOOKER.MOLD MAKING SUPERVISOR [address] [place] [address] [facility] [address] [place] [address] Referral ID Status Reason Start Date Expiration Date Visits Re quested Visits Authorized [id number] Closed 04/19/2022 05/06/2022 1 1 Reason Comments Recheck Follow up fatigue Reason Onset Date Comments Refill Request 03/18/2024 Reason Comments Back Pain Back pain mid to low back pain Reason Comments Work Forms Reason Onset Date Comments Refill Request 04/25/2024 Reason Onset Date Comments Refill Request 05/12/2024 Reason Comments Recheck 3 month follow up, r ecent ER follow up Reason Comments Recheck Follow up Reason Comments Dizziness Reason Onset Date Comments Refill Request 08/07/2024 Reason Comments Laceration from dog's nail LEFT forearm x3 days Reason Comments Puncture Wound Reason Comments right foot pain Stepped on a nail th is am Care Teams (unrecognized sec tion and content) Zipper Measurer Relationship Specialty Start Date End Date Opal Mathews MD [address] [place] [address] PCP - General Internal Medicine 02/19/19 Zipper Measurer Relationship Specialty Start Date End Date Opal Mathews MD [address] [place], [place] [id number] [phone] PCP - General Internal Medicine 02/19/19 Zipper Measurer Relationship Specialty Start Date End Date Opal Mathews MD [address] [place], [place] [id number] PCP - General Internal Medicine 02/19/19 Zipper Measurer Relationship Specialty Start Date End Date Opal Mathews MD [address] [place] [address] PCP - General Internal Medicine 02/19/19 Zipper Measurer Relationship Specialty Start Date End Date Opal Mathews MD [address] [facility] [place] [address] PCP - General Internal Medicine 02/19/19 Zipper Measurer Relationship Specialty Start Date End Date Opal Mathews MD [address] [facility] [place] [address] PCP - General Internal Medicine 02/19/19 Zipper Measurer Relationship Specialty Start Date End Date Opal Mathews MD [address] [facility] [place] [address] PCP - General Internal Medicine 02/19/19 Zipper Measurer Relationship Specialty Start Date End Date Opal Mathews MD [address] [facility] [place] [address] PCP - General Internal Medicine 02/19/19 Zipper Measurer Relationship Specialty Start Date End Date Opal Mathews MD [address] [facility] [place] [address] PCP - General Internal Medicine 02/19/19 Zipper Measurer Relationship Specialty Start Date End Date Opal Mathews MD [address] [place] [address] PCP - General Internal Medicine 02/19/19 Zipper Measurer Relationship Specialty Start Date End Date Opal Mathews MD [address] [place] [address] PCP - General Internal Medicine 02/19/19 Zipper Measurer Relationship Specialty Start Date End Date Opal Mathews MD [address] [place] [address] PCP - General Internal Medicine 02/19/19 Zipper Measurer Relationship Specialty Start Date End Date Opal Mathews MD [address] [facility] [place] [address] PCP - General Internal Medicine 02/19/19 Zipper Measurer Relationship Specialty Start Date End Date Opal Mathews MD [address] [place] [address] PCP - General Internal Medicine 02/19/19 Zipper Measurer Relationship Specialty Start Date End Date Opal Mathews MD [address] [place] [address] PCP - General Internal Medicine 02/19/19 Zipper Measurer Relationship Specialty Start Date End Date Opal Mathews MD [address] [place] [address] PCP - General Internal Medicine 02/19/19 Team Status: Active Member Role Status Dates Dr. Opal Mathews MD Family Provider Active Dr. Opal Mathews MD Primary Care Provider Active Team Status: Inactive Member Role Status Dates Dr. Opal Mathews MD Primary Care Provider Active LUDY WESTFALL Attending Provider, Referring Provider Active Team Status: Inactive Member Role Status Dates Dr. Opal Mathews MD Primary Care Provider Active Dr. Kyra Wylie MD Attending Provider Active Team Status: Inactive Member Role Status Dates Dr. Opal Mathews MD Primary Care Provider Active LUDY WESTFALL Attending Provider Active Team Status: Inactive Member Role Status Dates Dr. Opal Mathews MD Primary Care Provider Active Dr. Wilder Anguiano MD Attending Provider, Refe rring Provider Active Zipper Measurer Relationship Specialty Start Date End Date Opal Mathews MD [address] [place] [address] PCP - General Internal Medicine 02/19/19 Zipper Measurer Relationship Specialty Start Date End Date Opal Mathews MD [address] [place] [address] PCP - General Internal Medicine 02/19/19 Zipper Measurer Relationship Specialty Start Date End Date Opal Mathews MD [address] [place] [address] PCP - General Internal Medicine 02/19/19 Zipper Measurer Relationship Specialty Start Date End Date Opal Mathews MD [address] [facility] [place] [address] PCP - General Internal Medicine 02/19/19 Zipper Measurer Relationship Specialty Start Date End Date Opal Mathews MD [address] [facility] [facility] [place] [address] PCP - General Internal Medicine 02/19/19 Zipper Measurer Relationship Specialty Start Date End Date Opal Mathews MD [address] [place] [address] PCP - General Internal Medicine 02/19/19 Zipper Measurer Relationship Specialty Start Date End Date Opal Mathews MD [address] [place] [address] PCP - General Internal Medicine 02/19/19 Zipper Measurer Relationship Specialty Start Date End Date Opal Mathews MD [address] [place] [address] PCP - General Internal Medicine 02/19/19 Zipper Measurer Relationship Specialty Start Date End Date Opal Mathews MD [address] [place] [address] PCP - General Internal Medicine 02/19/19 Zipper Measurer Relationship Specialty Start Date End Date Opal Mathews MD [address] [place] [address] PCP - General Internal Medicine 02/19/19 Zipper Measurer Relationship Specialty Start Date End Date Opal Mathews MD [address] [facility] [place] [address] PCP - General Internal Medicine 02/19/19 Team Status: Inactive Member Role Status Dates Dr. Opal Mathews MD Primary Care Provider, Referring Provider Active Dr. Alicia Manzano MD Attending Provider Active Team Status: Inactive Member Role Status Dates Dr. Opal Mathews MD Primary Care Provider Active Dr. Wilder Anguiano MD Attending Provider Activ e Team Status: Active Member Role Status Dates Dr. Opal Mathews MD Primary Care Provider Active Dr. Alicia Manzano MD Attending Provider , Referring Provider, Other Provider Active Team Status: Active Member Role Status Dates Dr. Opal Mathews MD Primary Care Provider Active Meg Valentine Attending Provider Active Team Status: Inactive Member Role Status Dates Dr. Opal Mathews MD Primary Care Provider Active Dr. Alicia Manzano MD Attending Provider, Referring Pr ovider Active Zipper Measurer Relationship Specialty Start Date End Date Opal Mathews MD [address] [place] [address] PCP - General Internal Medicine 02/19/19 Zipper Measurer Relationship Specialty Start Date End Date Opal Mathews MD [address] [place] [address] PCP - General Internal Medicine 02/19/19 Zipper Measurer Relationship Specialty Start Date End Date Opal Mathews MD [address] [place] [address] PCP - General Internal Medicine 02/19/19 Zipper Measurer Relationship Specialty Start Date End Date Opal Mathews MD [address] [place] [address] PCP - General Internal Medicine 02/19/19 Zipper Measurer Relationship Specialty Start Date End Date Opal Mathews MD [address] [place] [address] PCP - General Internal Medicine 02/19/19 Team Status: Active Member Role Status Dates Dr. Opal Mathews MD Primary Care Provider Active Dr. Alicia Manzano MD Referring Provider, Other Provid er Active Dr. Fabrizio Centeno MD Attending Provider Active Team Status: Inactive Member Role Status Dates Dr. Opal Mathews MD Primary Care Provider Active Dr. Chanel Saleh DO Attending Provider, Emergency Pro vider Active Team Status: Inactive Member Role Status Dates Dr. Opal Mathews MD Primary Care Provider Active Dr. Myriam Burt MD Emergency Provider Active Zipper Measurer Relationship Specialty Start Date End Date Opal Mathews MD [address] [place] [address] PCP - General Internal Medicine 02/19/19 Zipper Measurer Relationship Specialty Start Date End Date Opal Mathews MD [address] [place] [address] PCP - General Internal Medicine 02/19/19 Team Status: Active Member Role Status Dates Dr. Opal Mathews MD Primary Care Provider Active Dr. Mario Salinas MD Attending Provider Active Team Status: Inactive Member Role Status Dates Dr. Opal Mathews MD Primary Care Provider Active Dr. Kyra Wylie MD Attending Provider, Referring Jimbo barrett Active Team Status: Inactive Member Role Status Dates Dr. Opal Mathews MD Primary Care Provider Active Dr. Myriam Burt MD Attending Provider, Emergency Provider Active Zipper Measurer Relationship Specialty Start Date End Date Opal Mathews MD [address] [place] [address] PCP - General Internal Medicine 02/19/19 Zipper Measurer Relationship Specialty Start Date End Date Opal Mathews MD [address] [place] [address] PCP - General Internal Medicine 02/19/19 Zipper Measurer Relationship Specialty Start Date End Date Opal Mathews MD [address] [place] [address] PCP - General Internal Medicine 02/19/19 Team Status: Active Member Role Status Dates Dr. Opal Mathews MD Primary Care Provider Active Dr. Alicia Manzano MD Attending Provider Active Team Status: Inactive Member Role Status Dates Dr. Opal Mathews MD Primary Care Provider Active Dr. Alicia Manzano MD Admit Provider, At tending Provider, Referring Provider Active Zipper Measurer Relationship Specialty Start Date End Date Opal Mathews MD [address] [place] [address] PCP - General Internal Medicine 02/19/19 Team Status: Active Member Role Status Dates Dr. Opal Mathews MD Primary Care Provider Active Dr. Mario Salinas MD Attending Provider Active YUNI Carson Referring Provider Active Team Status: Active Member Role Status Dates Dr. Opal Mathews MD Primary Care Provider Active Dr. Alicia Manzano MD Attending Provider, Referring Pr ovider Active Team Status: Inactive Member Role Status Dates Dr. Opal Mathews MD Primary Care Provider Active Placido Albrecht MD Attending Provider, Emergency Provid er Active Team Status: Inactive Member Role Status Dates Dr. Opal Mathews MD Primary Care Provider Active Meg Painting PA, PA Attending Provider, Referr ing Provider Active Dr. Alicia Manzano MD Other Provider Active Team Status: Active Member Role Status Dates Dr. Opal Mathews MD Primary Care Provider Active TARAN VENEGAS MD Attending Provider, Referring Pro vider Active Dr. Alicia Manzano MD Other Provider Active Team Status: Active Member Role Status Dates Dr. Opal Mathews MD Primary Care Provider Active TARAN VENEGAS MD Referring Provider, Other Provide r Active Dr. Alicia Manzano MD Other Provider Active Dr. Kan Mckinnon MD Attending Provider Active Team Status: Inactive Member Role Status Dates Dr. Opal Mathews MD Primary Care Provider Active TARAN VENEGAS MD Attending Provider, Referring Pro vider Active Dr. Alicia Manzano MD Other Provider Active Team Status: Inactive Member Role Status Dates Dr. Opal Mathews MD Primary Care Provider Active Dr. Alicia Manzano MD Attending Provider Active Zipper Measurer Relationship Specialty Start Date End Date Opal Mathews MD [address] [place] [address] PCP - General Internal Medicine 02/19/19 Zipper Measurer Relationship Specialty Start Date End Date Opal Mathews MD [address] [place] [address] PCP - General Internal Medicine 02/19/19 Zipper Measurer Relationship Specialty Start Date End Date Opal Mathews MD [address] [place] [address] PCP - General Internal Medicine 02/19/19 Zipper Measurer Relationship Specialty Start Date End Date Opal Mathews MD [address] [place] [address] PCP - General Internal Medicine 02/19/19 Team Status: Inactive Member Role Status Dates Dr. Opal Mathews MD Primary Care Provider Active Dr. Lakshmi Resendiz DO Emergency Provider Active Team Status: Inactive Member Role Status Dates Dr. Opal Mathews MD Primary Care Provider Active Dr. Lakshmi Resendiz DO Attending Provider, Emergency P nena Active Zipper Measurer Relationship Specialty Start Date End Date Opal Mathews MD [address] [place] [address] PCP - General Internal Medicine 02/19/19 Team Status: Inactive Member Role Status Dates Dr. Opal Mathews MD Primary Care Provider Active Dr. Alicia Manzano MD Attending Provider, Referring Pr ovider Active Dr. Wilder Anguiano MD Other Provider Active Zipper Measurer Relationship Specialty Start Date End Date Opal Mathews MD [address] [place] [address] PCP - General Internal Medicine 02/19/19 Team Status: Active Member Role Status Dates Dr. Opal Mathews MD Family Provider Active SHAHRIAR OLDER , SKIVER UPPERS OR LININGS-C Primary Care Provider Active Team Status: Inactive Member Role Status Dates Dr. Freddy Lane MD Emergency Provider Active SHAHRIAR BROWN , SKIVER UPPERS OR LININGS-C Primary Care Provider Active Zipper Measurer Relationship Specialty Start Date End Date Opal Mathews MD [address] [place] [address] PCP - General Internal Medicine 02/19/19 Zipper Measurer Relationship Specialty Start Date End Date Opal Mathews MD [address] [place] [address] PCP - General Internal Medicine 02/19/19 Zipper Measurer Relationship Specialty Start Date End Date Opal Mathews MD [address] [place] [address] PCP - General Internal Medicine 02/19/19 Team Status: Inactive Member Role Status Dates Dr. Freddy Lane MD Attending Provider, Emergency Pro vider Active SHAHRIAR BROWN , SKIVER UPPERS OR LININGS-C Primary Care Provider Active Team Status: Inactive Member Role Status Dates Dr. Opal Mathews MD Primary Care Provider Active Dr. Lauro Mason MD Attending Provider, Referrin g Provider Active Dr. Wilder Anguiano MD Other Provider Active Zipper Measurer Relationship Specialty Start Date End Date Opal Mathews MD [address] [place] [address] PCP - General Internal Medicine 02/19/19 Team Status: Inactive Member Role Status Dates SHAHRIAR BROWN , SKIVER UPPERS OR LININGS-C Primary Care Provider Active Dr. Alicia Manzano MD Attending Provider, Referring Pr ovider Active Team Status: Inactive Member Role Status Dates SHAHRIAR BROWN , SKIVER UPPERS OR LININGS-C Primary Care Provider Active Dr. Raffi Rendon MD Attending Provider, Referring Pro vider Active Zipper Measurer Relationship Specialty Start Date End Date Alicia Manzano MD [address] [address] Cardiovascular Disease 03/22/23 Zipper Measurer Relationship Specialty Start Date End Date Opal Mathews MD [address] [place] [address] PCP - General Internal Medicine 09/27/23 Alicia Manzano MD [address] [address] Cardiovascular Disease 03/22/23 Zipper Measurer Relationship Specialty Start Date End Date Opal Mathews MD [address] [place] [address] PCP - General Internal Medicine 02/19/19 Zipper Measurer Relationship Specialty Start Date End Date Opal Mathews MD [address] [place] [address] PCP - General Internal Medicine 02/19/19 Zipper Measurer Relationship Specialty Start Date End Date Opal Mathews MD [address] [place] [address] PCP - General Internal Medicine 02/19/19 Zipper Measurer Relationship Specialty Start Date End Date Opal Mathews MD [address] [place] [address] PCP - General Internal Medicine 02/19/19 Zipper Measurer Relationship Specialty Start Date End Date Opal Mathews MD [address] [place] [address] PCP - General Internal Medicine 02/19/19 Ivett Dunn, CARMENC [address] [place] [id number] Aerospace Project Manager Family Medicine 04/13/24 Shahriar Brown APRN.MOLD MAKING SUPERVISOR [address] [place] [address] Aerospace Project Manager Internal Medicine 04/13/24 Anabela Angulo PA-C [address] [place] [address] Aerospace Project Manager Family Medicine 04/13/24 Zipper Measurer Relationship Specialty Start Date End Date Opal Mathews MD [address] [place] [address] PCP - General Internal Medicine 02/19/19 Ivett Dunn PA-C [address] [place] [address] [phone] Aerospace Project Manager Family Medicine 04/13/24 Shhariar Brown APRN.MOLD MAKING SUPERVISOR [address] [place] [address] Aerospace Project Manager Internal Medicine 04/13/24 Anabela Angulo PA-C [address] [place] [address] [facility]13/[facility] Zipper Measurer Relationship Specialty Start Date End Date Opal Mathews MD [address] [place] [address] PCP - General Internal Medicine 02/19/19 Ivett Dunn PA-C [address] [place] [id number] Aerospace Project Manager Family Medicine 04/13/24 Shahriar Brown APRN.MOLD MAKING SUPERVISOR [address] [place] [address] Aerospace Project Manager Internal Medicine 04/13/24 Anabela Angulo PA-C [address] [place] [address] Aerospace Project Manager Family Medicine 04/13/24 Zipper Measurer Relationship Specialty Start Date End Date Opal Mathews MD [address] [place] [address] PCP - General Internal Medicine 02/19/19 Ivett Dunn PA-C [address] [place] [id number] Aerospace Project Manager Family Medicine 04/13/24 Shahriar Brown APRN.MOLD MAKING SUPERVISOR [address] [place] [address] Aerospace Project Manager Internal Medicine 04/13/24 Anabela Angulo PA-C [address] [place] [address] Aerospace Project Manager Family Medicine 04/13/24 Zipper Measurer Relationship Specialty Start Date End Date Opal Mathews MD [address] [place] [address] PCP - General Internal Medicine 02/19/19 Ivett Dunn PA-C [address] [place] [address] Aerospace Project Manager Family Medicine 04/13/24 Shahriar Brown APRN.MOLD MAKING SUPERVISOR [address] [place] [address] Aerospace Project Manager Internal Medicine 04/13/24 Anabela Angulo PA-C [address] [place] [address] Aerospace Project Manager Family [facility] 04/13/24 Zipper Measurer Relationship Specialty Start Date End Date Opal Mathews MD [address] [place] [address] PCP - General Internal Medicine 02/19/19 Ivett Dunn PA-C [address] [place], [place] [id number] [phone] Aerospace Project Manager Family [facility] 04/13/24 Shahriar Brown APRN.MOLD MAKING SUPERVISOR [address] [place] [address] Aerospace Project Manager Internal Medicine 04/13/24 Anabela Angulo PA-C [address] [place] [address] [facility] 04/13/24 Zipper Measurer Relationship Specialty Start Date End Date Opal Mathews MD [address] [place] [address] PCP - General Internal Medicine 02/19/19 Ivett Dunn PA-C [address] [place] [address] Aerospace Project Manager Family Medicine 04/13/24 Shahriar Brown APRN.MOLD MAKING SUPERVISOR [address] [place] [address] Aerospace Project Manager Internal Medicine 04/13/24 Anabela Angulo PA-C [address] [place] [address] Aerospace Project Manager Family [facility] 04/13/24 Zipper Measurer Relationship Specialty Start Date End Date Opal Mathews MD [address] [place] [address] PCP - General Internal Medicine 02/19/19 Ivett Dunn PA-C [address] [place] [id number] Aerospace Project Manager Family Medicine 04/13/24 Shahriar Brown APRN.MOLD MAKING SUPERVISOR [address] [place] [address] Aerospace Project Manager Internal Medicine 04/13/24 Anabela Angulo PA-C [address] [place] [address] Aerospace Project Manager Family Medicine 04/13/24 Zipper Measurer Relationship Specialty Start Date End Date Opal Mathews MD [address] [place] [address] PCP - General Internal Medicine 02/19/19 Ivett Dunn PA-C [address] [place] [address] Aerospace Project Manager Family Medicine 04/13/24 Shahriar Brown APRN.MOLD MAKING SUPERVISOR [address] [place] [address] Aerospace Project Manager Internal Medicine 04/13/24 Anabela Angulo PA-C [address] [place] [address] Aerospace Project Manager Family Medicine 04/13/24 Team Status: Active Member Role Status Dates Dr. Opal Mathews MD Primary Care Provider Active Team Status: Inactive Member Role Status Dates SHAHRIAR BROWN SKIVER UPPERS OR LININGS-C Referring Provider Active Start : April 15, 2024 End: April 15, 2024 Meg Painting PA, PA Attending Provider Active Start: April 15, 2024 End: April 15, 2024 Dr. Opal Mathews MD Primary Care Provider Active Start: April 15, 2024 End: April 15, 2024 Team Status: Inactive Member Role Status Dates Dr. Opal Mathews MD Primary Care Provider Active Start: April 27, 2024 End: April 27, 2024 Dr. Jian Nazario DO Attending Provider Active Start: April 27, 2024 End: April 27, 2024 Dr. Jian Nazario DO Emergency Provider Active Start: April 27, 2024 End: April 27, 2024 Team Status: Inactive Member Role Status Dates Dr. Opal Mathews MD Primary Care Provider Active Start: May 06, 2024 End: May 06, 2024 SHAHRIAR BROWN , SKIVER UPPERS OR LININGS-C Attending Provider Active Start : May 06, 2024 End: May 06, 2024 SHAHRIAR BROWN SKIVER UPPERS OR LININGS-C Referring Provider Active Start : May 06, 2024 End: May 06, 2024 Team Status: Inactive Member Role Status Dates Dr. Opal Mathews MD Primary Care Provider Active Start: May 10, 2024 End: May 11, 2024 Dr. Alfredo Sr MD Attending Provider Active Start: May 10, 2024 End: May 11, 2024 Dr. Alfredo Sr MD Emergency Provider Active Start: May 10, 2024 End: May 11, 2024 Team Status: Inactive Member Role Status Dates Dr. Mike Daley DO Attending Provider Active Start: May 14, 2024 End: May 14, 2024 Dr. Opal Mathews MD Primary Care Provider Active Start: May 14, 2024 End: May 14, 2024 Dr. Opal Mathews MD Referring Provider Active Start: May 14, 2024 End: May 14, 2024 Team Status: Active Member Role Status Dates Dr. Mike Daley DO Attending Provider Active Start: May 14, 2024 Dr. Mike Daley DO Other Provider Active St art: May 14, 2024 Dr. Opal Mathews MD Primary Care Provider Active Start: May 14, 2024 Dr. Opal Mathews MD Referring Provider Active Start: May 14, 2024 Team Status: Active Member Role Status Dates Dr. Opal Mathews MD Primary Care Provider Active Start: May 14, 2024 End: May 14, 2024 Dr. Caden Charles MD Attending Provider Active Start: May 14, 2024 End: May 14, 2024 Dr. Mike Daley DO Referring Provider Active Start: May 14, 2024 End: May 14, 2024 Team Status: Inactive Member Role Status Dates YUNI WILLARD Referring Provider Active Start : May 21, 2024 End: May 21, 2024 KENN Perez Attending Provider Active Start: May 21, 2024 End: May 21, 2024 Dr. Opal Mathews MD Primary Care Provider Active Start: May 21, 2024 End: May 21, 2024 Team Status: Inactive Member Role Status Dates Dr. Opal Mathews MD Primary Care Provider Active Start: May 21, 2024 End: May 21, 2024 KENN Perez Attending Provider Active Start: May 21, 2024 End: May 21, 2024 KENN Perez Referring Provider Active Start: May 21, 2024 End: May 21, 2024 Team Status: Inactive Member Role Status Dates Dr. Opal Mathews MD Primary Care Provider Active Start: June 17, 2024 End: June 17, 2024 KENN Perez Attending Provider Active Start: June 17, 2024 End: June 17, 2024 KENN Perez Referring Provider Active Start: June 17, 2024 End: June 17, 2024 Team Status: Inactive Member Role Status Dates Dr. Opal Mathews MD Primary Care Provider Active Start: June 18, 2024 End: June 18, 2024 Dr. Opal Mathews MD Referring Provider Active Start: June 18, 2024 End: June 18, 2024 KENN Perez Attending Provider Active Start: June 18, 2024 End: June 18, 2024 Team Status: Inactive Member Role Status Dates Dr. Opal Mathews MD Primary Care Provider Active Start: June 18, 2024 End: June 18, 2024 Maryjane King SKIVER UPPERS OR LININGS, SKIVER UPPERS OR LININGS-C Attending Provider Active Start: June 18, 2024 End: June 18, 2024 Maryjane King SKIVER UPPERS OR LININGS, SKIVER UPPERS OR LININGS-C Referring Provider Active Start: June 18, 2024 End: June 18, 2024 KENN Perez Other Provider Active Star t: June 18, 2024 End: June 18, 2024 Team Status: Inactive Member Role Status Dates Dr. Opal Mathews MD Primary Care Provider Active Start: June 30, 2024 End: June 30, 2024 Dr. Opal Mathews MD Referring Provider Active Start: June 30, 2024 End: June 30, 2024 Dr. Alicia Manzano MD Attending Provider Active Start: June 30, 2024 End: June 30, 2024 Team Status: Inactive Member Role Status Dates Dr. Opal Mathews MD Primary Care Provider Active Start: July 17, 2024 End: July 17, 2024 Dr. Alicia Manzano MD Attending Provider Active Start: July 17, 2024 End: July 17, 2024 Dr. Alicia Manzano MD Referring Provider Active Start: July 17, 2024 End: July 17, 2024 Team Status: Active Member Role Status Dates Dr. Lauro Mason MD Attending Provider Active Start: July 28, 2024 Dr. Lauro Mason MD Referring Provider Active Start: July 28, 2024 Dr. Opal Mathews MD Primary Care Provider Active Start: July 28, 2024 Team Status: Inactive Member Role Status Dates Dr. Lauro Mason MD Attending Provider Active Start: July 28, 2024 End: July 28, 2024 Dr. Lauro Mason MD Referring Provider Active Start: July 28, 2024 End: July 28, 2024 Dr. Opal Mathews MD Primary Care Provider Active Start: July 28, 2024 End: July 28, 2024 Team Status: Active Member Role Status Dates Dr. Opal Mathews MD Primary Care Provider Active Start: July 31, 2024 Meg Painting PA, PA Attending Provider Active Start: July 31, 2024 Meg Painting PA, PA Referring Provider Active Start: July 31, 2024 Zipper Measurer Relationship Specialty Start Date End Date Opal Mathews MD [address] [facility] [place], [place] [address] PCP - General Internal Medicine 02/19/19 Shahriar Brown APRN.MOLD MAKING SUPERVISOR [address] [facility] [place], [place] [id number] Aerospace Project Manager Internal Medicine 04/13/24 Team Status: Inactive Member Role Status Dates KENN Coronado Attending Provider Active Star t: July 21, 2024 End: July 21, 2024 KENN Coronado Referring Provider Active Star t: July 21, 2024 End: July 21, 2024 Team Status: Inactive Member Role Status Dates Dr. Opal Mathews MD Primary Care Provider Active Start: July 31, 2024 End: July 31, 2024 Meg HAWK PA Attending Provider Active Start: July 31, 2024 End: July 31, 2024 Meg HAWK PA Referring Provider Active Start: July 31, 2024 End: July 31, 2024 Zipper Measurer Relationship Specialty Start Date End Date Opal Mathews MD [address] [facility] [place], [place] [address] PCP - General Internal Medicine 02/19/19 Shahriar Brown APRN.MOLD MAKING SUPERVISOR [address] [facility] [place] [id number] Aerospace Project Manager Internal Medicine 04/13/24 Zipper Measurer Relationship Specialty Start Date End Date Opal aMthews MD [address] [facility] [place], [place] [address] PCP - General Internal Medicine 02/19/19 Shahriar Brown APRN.MOLD MAKING SUPERVISOR [address] [facility] [place] [id number] Aerospace Project Manager Internal Medicine 04/13/24 Zipper Measurer Relationship Specialty Start Date End Date Opal Mathews MD [address] [facility] [place], [place] [address] PCP - General Internal Medicine 02/19/19 Shahriar Brown APRN.MOLD MAKING SUPERVISOR [address] [facility] [place], [place] [address] Aerospace Project Manager Internal Medicine 04/13/24 Zipper Measurer Relationship Specialty Start Date End Date Opal Mathews MD [address] [address] [facility] [place] [address] PCP - General Internal Medicine 02/19/19 Shahriar Brown APRN.MOLD MAKING SUPERVISOR [address] [facility] [place] [address] Aerospace Project Manager Internal Medicine 04/13/24 Zipper Measurer Relationship Specialty Start Date End Date Opal Mathews MD [address] [facility] [address] [facility] [place] [address] PCP - General Internal Medicine 02/19/19 Shahriar Brown APRN.MOLD MAKING SUPERVISOR [address] [facility] [place] [address] Aerospace Project Manager Internal Medicine 04/13/24 Team Status: Inactive Member Role Status Dates Dr. Opal Mathews MD Primary Care Provider Active Start: August 18, 2024 End: August 18, 2024 Dr. Alicia Manzano MD Attending Provider Active Start: August 18, 2024 End: August 18, 2024 Dr. Alicia Manzano MD Referring Provider Active Start: August 18, 2024 End: August 18, 2024 Zipper Measurer Relationship Specialty Start Date End Date Opal Mathews MD [address] [facility], [place] [id number] PCP - General Internal Medicine 02/19/19 Older, BOOKER Tompkins.MOLD MAKING SUPERVISOR [address] [place] [address] Aerospace Project Manager Internal Medicine 04/13/24 Team Status: Active Member Role Status Dates Dr. Opal Mathews MD Primary Care Provider Active Start: August 18, 2024 Dr. Alicia Manzano MD Attending Provider Active Start: August 18, 2024 Dr. Alicia Manzano MD Referring Provider Active Start: August 18, 2024 Team Status: Active Member Role Status Dates Dr. Opal Mathews MD Primary Care Provider Active Start: August 20, 2024 Dr. Alicia Manzano MD Attending Provider Active Start: August 20, 2024 Dr. Alicia Manzano MD Referring Provider Active Start: August 20, 2024 Dr. Alicia Manzano MD Other Provider Active Star t: August 20, 2024 Team Status: Inactive Member Role Status Dates Dr. Opal Mathews MD Primary Care Provider Active Start: September 17, 2024 End: September 17, 2024 Dr. Lauro Mason MD Attending Provider Active Start: September 17, 2024 End: September 17, 2024 Dr. Lauro Mason MD Referring Provider Active Start: September 17, 2024 End: September 17, 2024 Team Status: Active Member Role Status Dates Dr. Opal Mathews MD Primary Care Provider Active Start: September 19, 2024 Dr. Lauro Mason MD Attending Provider Active Start: September 19, 2024 Dr. Lauro Mason MD Referring Provider Active Start: September 19, 2024 Team Status: Inactive Member Role Status Dates Dr. Opal Mathews MD Primary Care Provider Active Start: September 19, 2024 End: September 19, 2024 Dr. Lauro Mason MD Attending Provider Active Start: September 19, 2024 End: September 19, 2024 Dr. Lauro Mason MD Referring Provider Active Start: September 19, 2024 End: September 19, 2024 Team Status: Inactive Member Role Status Dates Dr. Opal Mathews MD Primary Care Provider Active Start: September 26, 2024 End: September 26, 2024 Dr. Lauor Mason MD Attending Provider Active Start: September 26, 2024 End: September 26, 2024 Dr. Lauro Mason MD Referring Provider Active Start: September 26, 2024 End: September 26, 2024 Team Status: Inactive Member Role Status Dates Dr. Opal Mathews MD Primary Care Provider Active Start: October 20, 2024 End: October 20, 2024 Dr. Opal Mathews MD Referring Provider Active Start: October 20, 2024 End: October 20, 2024 Dr. Alicia Manzano MD Attending Provider Active Start: October 20, 2024 End: October 20, 2024 Team Status: Inactive Member Role Status Dates Dr. Opal Mathews MD Primary Care Provider Active Start: October 21, 2024 End: October 21, 2024 Dr. Alicia Manzano MD Attending Provider Active Start: October 21, 2024 End: October 21, 2024 Dr. Alicia Manzano MD Referring Provider Active Start: October 21, 2024 End: October 21, 2024 Team Status: Active Member Role Status Dates Dr. Opal Mathews MD Primary Care Provider Active Start: October 28, 2024 Dr. Lauro Mason MD Attending Provider Active Start: October 28, 2024 Dr. Lauro Mason MD Referring Provider Active Start: October 28, 2024 Goals (unrecognized section and content) Goals may be documented in a n alternate sectionGoals may be documented in an alternate sectionGoals may be documented in an alternate sectionGoals may be documented in an alternate sectionGoals may be documented in an alternate sectionGoals may be documented in an alternate sectionGoals may be documented in an alternate sectionGoals may be documented in an alternate sectionGoals may be documented in an alternate sectionGoals may be documented in an alternate sectionGoals may be documented in an alternate sectionGoals may be documented in an alternate sectionGoals may be documented in an alternate sectionGoals may be documented in an alternate sectionGoals may be documented in an alternate sectionGoals may be documented in an alternate sectionGoals may be documented in an alternate sectionGoals may be documented in an alternate sectionGoals may be documented in an alternate sectionGoals may be documented in an alternate sectionGoals may be documented in an alternate sectionGoals may be documented in an alternate sectionGoals may be documented in an alternate sectionGoals may be documented in an alternate sectionGoals may be documented in an alternate section Scheduled Active and Recently Administ ered Medications (unrecognized section and content) Medication Order 09/25/2023 09/26/2023 09/27/2023 apixaban (ELIQUIS) tablet 5 mg 5 mg, Oral, EVERY 12 HOURS, First dose (after last modification) on Tere 09/27/23 at 1500, Until Discontinued, Due to the rapid onset of action of apixaban, no overlap is needed with other anticoagulants (e.g. enoxaparin, heparin)., Indications: Atrial Fibrillation, Post-op/Post-Proc 1454 (Given - Provid er: Agnieszka Low RN) Continuous Medication Order 09/25/2023 09/26/2023 09/27/2023 Sodium chloride 0.9% IV solution 500 mL Intravenous, at 20 mL/hr, CONTINUOUS, Starting on Tere 09/27/23 at 0600, Until Tere 09/27/23 at 1721, KVO fluids, start the morning of procedure., Pre-op/Pre-Proc 0712 ($$New Bag$$ - Provider: Derrell Sorto RN)0815 (Rate/Dose Change - Provider: Wilder Carey, [facility]) PRN Medication Order 09/25/2023 09/26/2023 09/27/2023 Acetaminophen (TYLENOL) tablet 650 mg 650 mg, Oral, EVERY 6 HOURS NEEDED, Starting on Tere 09/27/23 at 1042, Until Tere 24 at 1721, Mild Pain, Maximum dose of acetaminophen is 4000 mg from all sources in 24 hours., Post-op/Post-Proc 1121 (Given - Provid er: Agnieszka Low RN) alum/mag hydrox.-simethicone oral suspension 30 mL 30 mL, Oral, EVERY 6 HOURS NEEDED, Starting on Tere 09/27/23 at 1042, Until Tere 24 at 1721, Indigestion, Per 5 mL is equivalent to: (Alum-Mag Hydroxide 200-225 mg and Simethicone 20 mg) and (Alum-Mag Hydroxide 200-200 mg and Simethicone 20 mg), Post-op/Post-Proc HYDROmorphone (DILAUDID) injection 0.2 mg 0.2 mg, Intravenous, EVERY 2 HOURS NEEDED, Starting on Tere 09/27/23 at 1042, Until Tere 09/27/23 at 1721, Severe Pain, If unable to tolerate PO, Post-op/Post-Proc Lidocaine (XYLOCAINE) 10 mg/mL injection (CANCELED) NEEDED, Starting on Tere 09/27/23 at 0900, Until Tere 09/27/23 at 1054, Intra-op/Intra-Proc 0900 (Given - Provid er: Yamilet Arnago MD) magnesium oxide (MAG-OX) tablet 800 mg 800 mg, Oral, ADMINISTER DIRECTED, Starting on Tere 09/27/23 at 1042, Until Tere 09/27/23 at 1721, See admin instructions, For Magnesium 1.6 - 2.0, give 800 mg of Magnesium oxide, Post-op/Post-Proc Magnesium sulfate 4 g in sterile water 50 ml premix IVPB 4 g, Intravenous, Administer over 4 Hours, ADMINISTER DIRECTED, Starting on Tere 09/27/23 at 1042, Until Tere 09/27/23 at 1721, Other, Magnesium Replacement Therapy, If Magnesium less than 1.6, give 4 g Magnesium Sulfate IVPB over 4 hours (may give over 1 hour if arrhythmias present)., Post-op/Post-Proc Melatonin tablet 3 mg 3 mg, Oral, DAILY AT BEDTIME NEEDED, Starting on Tere 09/27/23 at 1042, Until Tere 09/27/23 at 1721, Insomnia, Post-op/Post-Proc Ondansetron 4mg/2ml (ZOFRAN) injection 4 mg 4 mg, Intravenous, EVERY 4 HOURS NEEDED, Starting on Tere 09/27/23 at 1042, Until Tere 09/27/23 at 1721, Nausea / Vomiting, Post-op/Post-Proc oxyCODONE (ROXICODONE) tablet 5 mg(Linked Group 1) 5 mg, Oral, EVERY 4 HOURS NEEDED, Starting on Tere 09/27/23 at 1042, Until Tere 09/27/23 at 1721, Moderate Pain, Severe Pain, PRN for Moderate Pain. Use for Severe Pain if IV not available for use as initial dose. Higher dose may be administred if lower dose was previously documented as ineffective and did not result in adverse effects (RR<10, decrease in level of consciousness)., Post-op/Post-Proc oxyCODONE HCl (ROXICODONE) tablet 10 mg(Linked Group 1) 10 mg, Oral, EVERY 4 HOURS NEEDED, Starting on Tere 09/27/23 at 1042, Until Tere 09/27/23 at 1721, Moderate Pain, Severe Pain, PRN for Moderate Pain. Use for Severe Pain if IV not available for use as initial dose. Higher dose may be administred if lower dose was previously documented as ineffective and did not result in adverse effects (RR<10, decrease in level of consciousness), Post-op/Post-Proc Polyethylene glycol (MIRALAX) packet 17 g 17 g, Oral, DAILY NEEDED, Starting on Tere 09/27/23 at 1042, Until Tere 09/27/23 at 1721, Constipation 1st Line, Post-op/Post-Proc Potassium chloride (K-DUR) tablet ER 20 mEq 20 mEq, Oral, ADMINISTER DIRECTED, Starting on Tere 09/27/23 at 1042, Until Tere 09/27/23 at 1721, See admin instructions, If Cr 2.0 - 2.5 mg/dL For Potassium less than 3.6, give 20 mEq Potassium Chloride orally, recheck in AM. If Cr greater than 2.5 mg/dL contact physician/LIP for Potassium less than 3.6 for replacement orders. If potassium is low please administer magnesium first if indicated, Post-op/Post-Proc Potassium chloride (K-DUR) tablet ER 40-60 mEq 40-60 mEq, Oral, ADMINISTER DIRECTED, Starting on Tere 09/27/23 at 1042, Until Tere 09/27/23 at 1721, See admin instructions, If Cr less than 2.0 mg/dL 1. For Potassium 3.6 - 4.0, give 40 mEq of Potassium Chloride orally, recheck in the AM. 2. For Potassium less than 3.6, give 60 mEq Potassium Chloride orally, recheck in 8 hours. 3. If potassium is low please administer magnesium first if indicated., Post-op/Post-Proc Sodium chloride 0.9% IV solution Intravenous, at 1 mL/hr, CONTINUOUS NEEDED, Starting on Tere 09/27/23 at 1042, Until Tere 09/27/23 at 1721, See administration instructions, Per pressure bag for all transduced lines., Post-op/Post-Proc No Frequency Medication Order 09/25/2023 09/26/2023 09/27/2023 Sodium chloride 0.9% IV solution 1 dose, Starting on Tere 09/27/23 at 0600, Until Tere 09/27/23 at 1721, Created by cabinet override [id number] (Canceled Entry - Provider: System Discharge - Comment: Automatically canceled at discontinue of medication order) Linked Groups Order Group 1: oxyCODONE (ROXICODONE) tablet 5 mgJump to med 5 mg, Oral, EVERY 4 HOURS NEEDED, Starting on Tere 09/27/23 at 1042, Until Tere 09/27/23 at 1721, Moderate Pain, Severe Pain, PRN for Moderate Pain. Use for Severe Pain if IV not available for use as initial dose. Higher dose may be administred if lower dose was previously documented as ineffective and did not result in adverse effects (RR<10, decrease in level of consciousness)., Post-op/Post-Proc Or oxyCODONE HCl (ROXICODONE) tablet 10 mgJump to med 10 mg, Oral, EVERY 4 HOURS NEEDED, Starting on Tere 09/27/23 at 1042, Until Tere 09/27/23 at 1721, Moderate Pain, Severe Pain, PRN for Moderate Pain. Use for Severe Pain if IV not available for use as initial dose. Higher dose may be administred if lower dose was previously documented as ineffective and did not result in adverse effects (RR<10, decrease in level of consciousness), Post-op/Post-Proc FOR RECORDS PERTAINING TO PATIENTS WHO ARE [...] BE BASED ON THE PRIMARY CLINICAL RECORDS. [facility]. provides no warranty or guarantee of the accuracy or completeness of information in this document.
== END | disposition home or self-care (01) ==
PROVIDERS: PCP Internal Medicine; Referring Provider Internal Medicine Pulmonary Disease; Visit Provider Internal Medicine Pulmonary Disease
DX: J84.113 Idiopathic non-specific interstitial pneumonitis (principal)
CPT/HCPCS: 87015; 87116; 87206

== ENCOUNTER → 2024-10-31 | Outpatient (CLI) | payer MEDICAID, SELFPAY ==
[2023-04-18 11:48] VITALS: BMI 32.9
== END | disposition home or self-care (01) ==
LOC: LAB 13:14
PROVIDERS: PCP Internal Medicine; Referring Provider Internal Medicine Pulmonary Disease; Visit Provider Internal Medicine Pulmonary Disease
DX: J84.113 Idiopathic non-specific interstitial pneumonitis (principal)
CPT/HCPCS: 87015; 87116; 87206

== ENCOUNTER → 2024-11-17 | Outpatient (CLI) | payer MEDICAID, SELFPAY ==
[2023-04-18 11:48] VITALS: BMI 32.9
--- NOTE | 2024-11-17 18:29 | CT_ITS ---
PROCEDURE: CHEST WITHOUT CONTRAST 11/17/2024 REASON FOR EXAM: IDIOPATHIC NON-SPECIFIC INTERSTITIAL PNEUMONITIS TECHNIQUE: Chest CT without contrast. Coronal and Sagittal reconstruction series were provided. One or more dose reduction techniques were used (e.g., Automated exposure control, adjustment of the mA and/or kV according to patient size, use of iterative reconstruction technique RADIATION DOSE SUMMARY: CTDlvol: 14.37 mGy DLP: 466.65 mGycm COMPARISON: Prior study dated July 28, 2024. FINDINGS: Hardware: None Lymph nodes: Mildly enlarged fat containing bilateral axillary lymph nodes. Heart and Vasculature: The heart is not enlarged. There is evidence of coronary artery calcification. Coronary Artery Calcifications: Present Lungs and Airways: Stable increased linear markings at the lung bases with evidence of bronchiectasis more prominent at the right lung base. This is suggestive of scarring. Pleura: No evidence of pleural effusion. Upper Abdomen: Hiatal hernia Bones: Degenerative changes of the thoracic spine. CT/Chest without Contrast IMPRESSION: Coronary artery calcification (CAC) is is present Stable increased linear markings at the lung bases suggestive of scarring. Reading Location: [place] [id number]
== END | disposition home or self-care (01) ==
PROVIDERS: PCP Internal Medicine; Referring Provider Internal Medicine Pulmonary Disease; Visit Provider Internal Medicine Pulmonary Disease
DX: J84.113 Idiopathic non-specific interstitial pneumonitis (principal)
CPT/HCPCS: 71250

== ENCOUNTER 2024-11-23 14:03 | Emergency (ER) | payer MEDICAID, SELFPAY ==
[2023-04-18 11:48] VITALS: BMI 32.9
[2024-11-23 14:03] VITALS: BP 185/96; PULSE 87; RESP 16; TEMP 36.3; O2SAT 97; BMI 35.9
--- NOTE | 2024-11-23 14:48 | RAD_ITS ---
PROCEDURE: KNEE 4 OR MORE VIEWS 11/23/2024 REASON FOR EXAM: INJURY/PAIN TECHNIQUE: KNEE 4 OR MORE VIEWS FINDINGS: No fracture or dislocation. No joint effusion RAD/Knee 4 or More Views IMPRESSION: Negative right knee Reading [facility]
--- OUTSIDE RECORDS SUMMARY | 2024-11-23 15:02 | XMS RPT_ITS | CCD ---
Author Organization [facility] CliniSypr Care Team Providers Care Bulb Sorter Name Role Phone Unavailable [facility] Mathews MD Primary Care Provider Opal [...] Referring Provider MD TARAN VENEGAS Other Provider Dr. Kan Mckinnon Attending Provider Dr. Opal Mathews Primary Care Provider Jose Juan, Dr. Vargas Other Provider Gabe, Dr. Joseph Primary Care Provider Dr. Mario Salinas Attending Provider 1([facility])[phone] YfnaniYUNI leon Referring Provider 1([facility])[phone] Jose Juan, Dr. Vargas Attending Provider Ganana, Dr. Joseph Referring Provider 1([facility])[phone] MD TARAN VENEGAS Referring Provider 1([facility])[phone] MD TARAN VENEGAS Other Provider 1([facility])[phone] Jose Juan, Dr. Vargas Other Provider Dr. Kan Mckinnon Attending Provider 1([facility])[phone] Gabe, Dr. Joseph Primary Care Provider 1([facility])[phone] MARYLU CHAUDHARY DO Attending Unavailable MARYLU CHAUDHARY DO Primary Care Unavailable MARYLU CHAUDHARY DO Admitting Unavailable Gabe, Dr. Joseph Primary Care Provider Jose Juan, Dr. Vargas Attending Provider Ganana, Dr. Joseph Primary Care Provider Gabe, Dr. Joseph Referring Provider 1([facility])[phone] Jose Juan, Dr. Vargas Attending Provider Gabe, Dr. Joseph Primary Care Provider Ganana, Dr. Joseph Referring Provider Jose Juan, Dr. Vargas Attending Provider Jose Juan, Dr. Vargas Referring Provider Jose Juan, Dr. Vargas Other Provider Gabe, Dr. Joseph Primary Care Provider Gabe, Dr. Joseph Referring Provider Jose Juan, Dr. Vargas Attending Provider Jose Juan, Dr. Vargas Referring Provider Jose Juan, Dr. Vargas Other Provider Opal Mathews MD Primary Care Provider Alicia Manzano MD Unavailable Opal Mathews MD Primary Care Provider Shaun PA-C, Ivett L Unavailable Older CHILLER OPERATOR.NURSE STAFF, Shahriar Unavailable Adele PA-C, Anabela Unavailable OLDER FURNITURE FABRICATOR-C, SHAHRIAR Referring Provider Meg Urban Attending Provider Gabe KOENIG, Dr. Joseph Primary Care Provider Dr. Jian Nazario DO Attending Provider Dr. Jian Nazario DO Emergency Provider OLDER FURNITURE FABRICATOR-CSHAHRIAR Attending Provider Dr. Alfredo Sr MD Attending Provider Dr. Alfredo Sr MD Emergency Provider Dr. Mike Daley DO Attending Provider Dr. Opal Matehws MD Referring Provider Dr. Mike Daley DO Other Provider Dr. Caden Charles MD Attending Provider Dr. Mike Daley DO Referring Provider Kaya Monroy Attending Provider Kaya Monroy Referring Provider Maryjane Carrillo Attending Provider Maryjane Carrillo Referring Provider Kaya Monroy Other Provider Jose Juan KOENIG, Dr. Vargas Attending Provider Dr. Alicia Manzano MD Referring Provider Marlon KOENIG, Dr. Lauro Bartholomew Attending Provider Marlon KOENIG, Dr. Lauro Bartholomew Referring Provider Meg Urban Referring Provider Mcdaniel PA, Mario Attending Provider Mcdaniel PA, Mario Referring Provider Gabe KOENIG, Dr. Joseph Primary Care Provider OLDER FURNITURE FABRICATOR-C, SHAHRIAR Referring Provider Meg Urban Attending Provider Gabe KOENIG, Dr. Joseph Primary Care Provider Kaya Monroy Attending Provider Kaya Monroy Referring Provider Gabe KOENIG, Dr. Joseph Referring Provider Jose Juan KOENIG, Dr. Vargas Other Provider Gabe KOENIG, Dr. Joseph Primary Care Provider Dr. Opal Mathews MD Referring Provider Gabe KOENIG, Dr. Joseph Primary Care Provider Dr. Alicia Manzano MD Attending Provider Gabe KOENIG, Dr. Joseph Referring Provider GANTA, OPAL C Referring Unavailable MALLY HERRON Attending Unavailable GANTA, OPAL C Primary Care Unavailable LIANNA, JOSÉ MANUEL N Attending Unavailable GANTA, OPAL C Primary Care Unavailable GANTA, OPAL C Referring Unavailable WISWELL, CHHAYA Attending Unavailable GANTA, OPAL Primary Care Unavailable [...] Care Unavailable GANTA, OPAL Primary Care Unavailable Ganta , Dr. Joseph Primary Care Provider [phone] Jose Juan KOENIG, Dr. Vargas Attending Provider Jose Juan KOENIG, Dr. Vargas Referring Provider TARAN VENEGAS MD Attending Provider [phone] TARAN VENEGAS MD Referring Provider Wilder Anguiano Referring Unavailabl e Wilder Anguiano Attending Unavailabl e Ganta, Opal Primary Care Unavailable Ganta, Opal Primary Care Unavailable Jian Nazario Attending Unavailable Mcdaniel, Mario Attending Unavailable Mcdaniel, Mario Referring Unavailable Ganta, Opal Primary Care Unavailable Alfredo Sr Attending Unavailable Ganta, Opal Primary Care Unavailable Sibilia, Lauro V Attending Unavailable Sibilia, Lauro V Referring Unavailable OLDER, SHAHRIAR Primary Care Unavailable Fernando FURNITURE FABRICATOR, Maryjane Referring Unavailable Fernando FURNITURE FABRICATOR, Maryjane Attending Unavailable Thuy, Mike Attending Unavailable Ganta, Opal Referring Unavailable Ganta, Opal Primary Care Unavailable Sibilia, Lauro V Attending Unavailable Ganta, Opal Primary Care Unavailable Sibilia, Lauro V Referring Unavailable Meg Urban Referring Unavail able Meg Urban Attending Unavail able Ganta, Opal Primary Care Unavailable Ganta, Opal Primary Care Unavailable Sibilia, Lauro V Attending Unavailable Sibilia, Lauro V Referring Unavailable Ganta, Opal Primary Care Unavailable Sibilia, Lauro V Attending Unavailable Sibilia, Lauro V Referring Unavailable Ganta, Opal Primary Care Unavailable Sibilia, Lauro V Attending Unavailable Sibilia, Lauro V Referring Unavailable Kaya Pierce Referring Unavailable Kaya Pierce Attending Unavailable OLDER, SHAHRIAR Primary Care Unavailable Kaya Pierce Referring Unavailable Kaya Pierce Attending Unavailable Ganta, Opal Primary Care Unavailable Kaya Pierce Consulting Unavailable Fernando FURNITURE FABRICATOR, Maryjane Referring Unavailable Fernando FURNITURE FABRICATOR, Maryjane Attending Unavailable Ganta, Opal Primary Care Unavailable Kaya Pierce Referring Unavailable Ganta, Opal Primary Care Unavailable Kaya Pierce Attending Unavailable Ganta, Opal Primary Care Unavailable Sibilia, Lauro V Referring Unavailable Sibilia, Lauro V Attending Unavailable Jose Juan, Alicia Referring Unavailable Jose Juan, Alicia Attending Unavailable Ganta, Opal Primary Care Unavailable Jose Juan, Alicia Referring Unavailable Jose Juan, Alicia Attending Unavailable Ganta, Opal Primary Care Unavailable Jose Juan, Alicia Referring Unavailable Jose Juan, Alicia Attending Unavailable Ganta, Opal Primary Care Unavailable Jose Juan, Aliica Referring Unavailable Jose Juan, Alicia Attending Unavailable Ganta, Opal Primary Care Unavailable Mert HAWK, Meg Baker Attending Unavail able OLDER, SHAHRIAR Referring Unavailable Ganta, Opal Primary Care Unavailable Ganta, Opal Primary Care Unavailable Friend, Mike Attending Unavailable Jose Juan, Alicia Attending Unavailable Ganta, Opal Primary Care Unavailable Ganta, Opal Referring Unavailable Friend, Mike Referring Unavailable Ganta, Opal Primary Care Unavailable Caden Charles Attending Unavailable Jose Juan, Alicia Consulting Unavailable Jose Juan, Alicia Referring Unavailable Jose Juan, Alicia Attending Unavailable Ganta, Opal Primary Care Unavailable Friend, Mike Consulting Unavailable Friend, Mike Attending Unavailable Ganta, Opal Primary Care Unavailable Ganta, Opal Referring Unavailable Jose Juan, Alicia Attending Unavailable Ganta, Opal Primary Care Unavailable Ganta, Opal Referring Unavailable Kaya Pierce Attending Unavailable Ganta, Opal Referring Unavailable Ganta, Opal Primary Care Unavailable Kaya Pierce Attending Unavailable OLDER, SHAHRIAR Referring Unavailable Ganta, Opal Primary Care Unavailable Kaya Pierce Attending Unavailable OLDER, SHAHRIAR Primary Care Unavailable OLDER, SHAHRIAR Referring Unavailable Kaya Pierce Referring Unavailable Kaya Pierce Attending Unavailable OLDER, SHAHRIAR Primary Care Unavailable TARAN VENEGAS Referring Unavailable BIELAWSKI, TARAN Attending Unavailable Gan, Opal Primary Care Unavailable SibiliaLauro V Attending Unavailable Ganta, Opal Primary Care Unavailable Sibilia Lauro V Referring Unavailable SibiliaLauro V Attending Unavailable Ganta, Opal Primary Care Unavailable Sibilia Lauro V Referring Unavailable SHAHRIAR BROWN Referring Unavailable OLDERSHAHRIAR Attending Unavailable [facility] Primary Care Unavailable Allergies Allergy Classification Reported Allergen(s) Allergy Type Date of Onset Reaction(s) Facility cantaloupe allergenic extract (1 source) cantaloupe allergenic extract Drug Allergy 9 Angioedema [facility] Work Phone: Quinolones (antibiotic) (1 source) levoFLOXacin Drug Allergy 1 [facility] Sulfonamides (antibiotic) (1 source) Sulfonamides (Antibiotic) Drug Allergy 9 [facility] (20 sources) cantaloupe allergenic extract; Translations: [CANTALOUPE] Drug Allergy 9 Angioedema [facility] Work Phone: (20 sources) levoFLOXacin; Translations: [LEVOFLOXACIN] Drug Allergy 1 [facility] (20 sources) Sulfonamides (Antibiotic); Translations: [SULFA (SULFONAMIDE ANTIBIOTICS)] Drug Allergy 9 [facility] (20 sources) Sulfonamides (Antibiotic) Allergy to substance 1 [facility] (1 source) levoFLOXacin Drug Allergy [facility] (1 source) Sulfonamides (Antibiotic) Drug allergy (disorder) [facility] (2 sources) cantaloupe allergenic extract Drug Allergy 9 Anaphylaxis [facility] (13 sources) dilTIAZem Drug Allergy 5 Hypotension, lightheaded and dizzy [facility] (1 source) dilTIAZem Drug Allergy 5 [facility] (1 source) levoFLOXacin Drug Allergy 5 [facility] (1 source) Sulfonamides (Antibiotic) Drug allergy (disorder) 5 [facility] Repository Medications Current Medications Medication Drug Class(es) Dates Sig (Normalized) Sig (Original) [id number] 200 actuat albuterol 0.09 mg/actuat metered dose inhaler (6 sources) beta2-Adrenergic Agonist Start: 10-20-2024 Albuterol Sulfate (Ventolin Hfa) 90 mcg/actuation HFA aerosol inhaler Active 2 NMA INHALATION October 20, 2024 12:00am wheezing amLODIPine 5 mg oral tablet (20 sources) [...] Discontinued 5 mg PO TWICE A DAY 60 April 07, 2024 12:19pm May 10, 2024 10:45pm Comment on above: Take 5 mg by mouth t wo times a day. aspirin 81 mg delayed release oral tablet (20 sources) Platelet Aggregation Inhibitor, Nonsteroidal Anti-inflammatory Drug Start: 04-15-2024 take 1 tablet by mouth once daily Aspirin (Adult Aspirin Regimen) 81 mg tablet,delayed release (DR/EC) Active 81 mg PO DAILY 90 3 April 15, 2024 1:00am Start: 11-16-2022 End: [...] complication, without long-term current use of insulin ([facility] Dispense 1 kit 1 Each 04/13/2020 Active Start: 04-13-2020 Blood-Glucose Meter Indications: Type 2 diabetes mellitus without complication, without long-term current use of insulin ([facility]) Dispense 1 kit 1 Each 0 04/13/2020 Active Comment on above: Dispense 1 kit 24 hr buPROPion hydrochloride 150 mg extended release oral tablet (20 sources) Aminoketone Start: 11-13-2024 take 1 tablet by mouth once daily buPROPion XL (WELLBUTRIN XL) 150 mg 24 hr tablet Take 1 tablet by mouth once daily. 90 tablet 3 11/13/2024 Active Start: 01-17-2024 End: 11-10-2024 take 1 tablet by mouth once daily buPROPion XL (WELLBUTRIN XL) 150 mg 24 hr tablet Take 1 tablet by mouth once daily. 90 tablet 3 08/27/2024 11/10/2024 Discontinued carvedilol 25 mg oral tablet (20 sources) alpha-Adrenergic Oriana, beta-Adrenergic Oriana Start: 06-30-2024 End: 08-18-2024 take 1 tablet by mouth twice daily [...] 12.5 mg PO TWICE A DAY 180 1 November 28, 2022 3:30pm March 15, 2023 [...] with meals. cefdinir 300 mg oral capsule (16 sources) Cephalosporin Antibacterial Start: 10-05-2023 End: 10-12-2023 [...] 500 mg PO EVERY 12 HOURS 14 0 December 31, 2022 12:00am January 22, 2023 [...] on above: Take 1 capsule by mo ut twice daily for 7 days. Take 1 capsule by mo [facility] four times daily for 10 days. citalopram 40 mg oral tablet (20 sources) Serotonin Reuptake Inhibitor Start: 05-10-2024 End: 11-10-2024 take 1 tablet by mouth once daily citalopram (CELEXA) 40 mg tablet Take 1 tablet by mouth once daily. 90 tablet 1 11/13/2024 Active Start: 2023 End: 03-18-2024 take 1 tablet [...] on above: Take 1 tablet by [facility] once daily. take 1 tablet by [facility] once daily clotrimazole 10 mg/ml topical cream (1 source) Azole Antifungal Start: 10-12-2022 End: 10-26-2022 clotrimazole (LOTRIMIN) 1 % cream Indications: Vulvar itching , Vulvar candidiasis Apply to affected area twice daily for 14 days. 28 g 1 10/12/2022 10/26/2022 Active Comment on above: Apply to affected ar ea twice daily for 14 days. [id number] 0.3 ml EPINEPHrine 1 mg/ml auto-injector (20 sources) alpha-Adrenergic Agonist, beta-Adrenergic Agonist, Catecholamine Start: 11-13-2024 EPINEPHrine (EPIPEN) 0.3 mg/0.3 mL auto-injector Use per directed for severe allergic reaction 2 each 1 11/13/2024 Active Start: 08-04-2022 Epinephrine 0. 3 mg/0.3 mL auto-injector Active 0.3 mg IM ONCE August 04, 2022 12:00am as a single dose; may repeat once Start: 06-16-2021 End: 11-10-2024 EPINEPHrine (EPIPEN) 0.3 mg/ 0.3 mL auto-injector Use per directed for severe allergic reaction 2 Each 1 06/16/2021 11/10/2024 Discontinued EPINEPHrine 0.3 MG/0.3ML Solution Auto-injector injection Inject [...] 325 mg oral tablet (20 sources) Start: 09-24-2024 take 1 tablet by mouth twice daily at mealtime ferrous sulfate 325 mg (65 mg iron) tablet Take 1 tablet by mouth two times a day with meals. 60 tablet 1 09/24/2024 Active Start: 07-17-2024 take 1 tablet by [facility] twice daily at mealtime ferrous sulfate 325 [...] above: Take 1 tablet by [facility] th one time only for 1 dose. Repeat in 3 days as needed. fluticasone propionate 0.05 mg/actuat metered dose nasal spray (20 sources) Corticosteroid Start: 3 End: take 2 spray(s) nasal route once daily fluticasone (FLONASE) 50 mcg/actuation nasal spray Use 2 Sprays in each nostril once daily. 1 Each 3 11/20/2022 03/20/2023 Discontinued Start: 08-31-2021 End: 11-17-2022 take 2 spray(s) nasal route once daily fluticasone (FLONASE) 50 mcg/actuation nasal spray Use 2 Sprays in each nostril once daily. 1 Each 3 08/31/2021 11/17/2022 Discontinued Start: 05-15-2020 End: 11-11-2024 take 2 spray(s) nasal route once daily fluticasone (FLONASE) 50 mcg/actuation nasal spray Use 2 sprays in each nostril once daily. 16 g 2 11/13/2024 Active Start: 05-15-2020 Fluticasone Pr opionate Active 2 [...] hr Active 30 mg PO EVERY MORNING 90 June 02, 2024 11:14am Start: 06-05-2023 End: 05-21-2024 take 1 tablet by mouth once daily in the morning, then take 1 tablet by mouth every twenty-four hours Isosorbide Mononitrate 30 mg tablet extended release 24 hr Discontinued 30 mg PO EVERY MORNING 90 June 05, 2023 1:00am May 21, 2024 10:04am Comment on above: Take 30 mg by mouth every morning. lansoprazole 30 mg delayed release oral capsule (20 sources) Proton Pump Inhibitor Start: take 1 capsule by mouth once daily lansoprazole (PREVACID) 30 mg capsule Take 1 capsule by mouth once daily. 90 capsule 3 11/13/2024 Active Start: 05-15-2020 End: 11-10-2024 take 1 capsule by mouth once daily Lansoprazole 30 mg capsule,delayed release(DR/EC) Discontinued 30 mg PO DAILY August 08, 2022 1:48pm June 30, 2024 10:45am Comment on above: Take 1 capsule by mo [facility] daily before breakfast. 1/2 hr before meal. take 1 capsule by mo [facility] once daily , 1/2 HOUR BEFORE BREAKFAST 200 actuat levalbuterol 0.045 mg/actuat metered dose inhaler (20 sources) beta2-Adrenergic Agonist Start: 02-08-20 take 1-2 puff(s) by inhalation every four [...] release oral tablet (20 sources) Biguanide Start: take 2 tablets by mouth twice daily at mealtime metFORMIN ER (GLUCOPHAGE XR) 500 mg 24 hr tablet Indications: Type 2 diabetes mellitus without complication, without long-term current use of insulin (HCC) Take 2 tablets by mouth two times a day with meals. 360 tablet 1 11/13/2024 Active Start: 08-08-2022 End: 11-10-2024 take 2 tablets by mouth twice daily at mealtime metFORMIN ER (GLUCOPHAGE XR) 500 mg 24 hr tablet Indications: Type 2 diabetes mellitus without complication, without long-term current use of insulin (HCC) Take 2 tablets by mouth two times a day with meals. 360 tablet 1 08/12/2024 11/10/2024 Discontinued Start: 06-19-2022 End: 01-17-2024 take 2 tablets [...] with meals Take 2 tablets by mo [facility] twice daily. take 1 tablet by mouth every morning and 2 tablets by mouth every evening with meals Take 2 tablets by mo [facility] twice daily with meals. take 2 tablets by mo [facility] twice a day with meals montelukast 10 mg oral tablet (20 sources) Leukotriene Receptor Antagonist Start: take 1 tablet by mouth once daily montelukast (SINGULAIR) 10 mg tablet Take 1 tablet by mouth once daily. 90 tablet 3 11/13/2024 Active Start: 05-15-2020 End: 11-10-2024 take 1 tablet by mouth once daily montelukast (SINGULAIR) 10 mg tablet Take 1 tablet by mouth once daily. 90 tablet 3 08/12/2024 11/10/2024 Discontinued Comment on above: Take 1 tablet [...] capsule (7 sources) Nitrofuran Antibacterial Start: 10-03-19 take 1 capsule by mouth twice daily [...] on above: Take 1 capsule by mo [facility] twice daily for 5 days. Take 1 capsule by [facility] twice daily with meals for 7 days. nitroglycerin 0.4 mg sublingual tablet (20 sources) Nitrate Vasodilator Start: 12-27-2022 Nitroglycerin 0.4 mg Tablet, Sublingual Active 0.4 mg SL Q5M as needed for Cardiac/Chest Pain 19 10December 27, 2022 12:00am Start: 12-27-2022 nitroGLYCERIN 0.[address] 1 tablet under the tongue if needed every 5 minutes for sofie... (REFER TO PRESCRIPTION NOTES). 02/13/2023 Active pantoprazole 40 mg delayed release oral tablet (14 sources) Proton Pump Inhibitor Start: 06-18-2024 End: 11-11-2024 take 1 tablet by mouth once daily Pantoprazole 40 mg tablet,delayed release (DR/EC) Active 40 mg PO daily 60 2 November 11, 2024 2:32pm perflutren lipid microspheres 1.3 mL in NaCl (PF) 0.9% 10 mL injection (DEFINITY) (20 sources) Start: 06-15-2022 End: 09-15-2023 perflutren lipid microspheres 1.3 mL in NaCl (PF) 0.9% 10 mL injection (Silatronix) tobramycin 40 mg/ml injectable solution (6 sources) Aminoglycoside Antibacterial Start: 10-20-2024 take 160 [...] on Tere 09/27/23 at 1042, Until Tere 524 at 1721, Indigestion, Per 5 mL is [...] on above: Take 1 tablet by [facility] twice daily for 7 days. Take 1 tablet by [facility] twice daily for 10 days. Take 1 tablet by [facility] th twice daily for 3 days. Start after current augmentin regimen is completed for a full 10 days of treatment. Take 1 tablet by [facility] th twice daily for 5 days. benzonatate 100 [...] TIMES A DAY as needed for cough 20 0 April 29, 2023 1:00am May 10, 2024 [...] mg tablet Discontinued 75 mg PO DAILY 90 March 12, 2024 11:17am April 15, 2024 [...] 140 or greater. Start: 05-16-2023 End: 07-04-2023 Diltiazem Hcl 120 mg capsule ,extended release 24hr Discontinued 120 mg PO TWICE A DAY 60 May 16, 2023 1:00am July 04, 2023 5:34pm Stopping Diltiazem CD 180, changing to this. Start: 03-21-2023 End: 09-27-2023 take 1 capsule by mouth once daily, then take 1 capsule by mouth every twenty-four hours Diltiazem Hcl (Cardizem Cd) 180 mg capsule,extended release 24hr Discontinued 180 mg PO DAILY 30 March 21, 2023 1:00am May 16, 2023 [...] sources) Tetracycline-cla ss Drug Start: 02-21-2023 End: 02-27-2023 take 1 tablet by mouth twice daily [...] Comment on above: Take 1 tablet by [facility] twice daily for 7 days. hydroCHLOROthiazide 12.5 mg oral tablet (20 sources) Thiazide Diuretic Start: 025 End: 025 take 1 tablet by mouth once daily Hydrochlorothiazide 12.5 mg tablet Discontinued 12.5 mg PO daily June 30, 2024 1:00am August 14, 2024 4:47pm On Hold: None Start: 05-15-2020 End: 09-27-2023 take 1 tablet by mouth once daily Hydrochlorothiazide 25 MG tablet Discontinued 25 mg PO DAILY May 15, 2020 1:00am March 21, 2023 2:10pm Comment on above: Take 1 tablet by [facility] once daily. take 1 tablet by [facility] th once daily 1 ml HYDROmorphone hydrochloride 1 [...] 1-171 mL, Intravenous, ONCE, 1 dose, On 09/26/23 at 1145, Extravasation Risk, CT Procedure losartan potassium 50 mg oral tablet (20 sources) Angiotensin 2 Receptor Oriana Start: End: take 1 tablet by mouth once daily Losartan 50 mg tablet Discontinued 50 mg PO daily 90 September 04, 2024 11:30am September 04, 2024 11:31am Start: 04-15-2024 End: 09-04-2024 take 1 tablet by mouth twice daily Losartan 50 mg tablet Discontinued 50 mg PO TWICE A DAY 180 April 29, 2024 2:05pm September 04, 2024 11:31am this is dose increase Start: 08-16-2023 End: 04-29-2024 take 1 tablet by mouth at bedtime Losartan 50 mg tablet Discontinued 50 mg PO AT BEDTIME April 15, 2024 12:23pm April 29, 2024 2:04pm Start: 07-24-2023 End: 08-16-2023 take 1 tablet by mouth twice daily Losartan 50 mg tablet Discontinued 50 mg PO TWICE A DAY 180 July 24, 2023 4:08pm August 16, 2023 1:19pm Start: 07-06-2023 End: 07-24-2023 take 1 tablet by mouth once daily Losartan 50 mg tablet Discontinued 50 mg PO DAILY 90 July 06, 2023 1:00am July 24, 2023 4:09pm This is a dose DECREASE, bp was too low Start: 06-16-2021 End: 01-17-2024 take 0.5 tablet by mouth once daily losartan (COZAAR) 100 mg tablet Take 0.5 tablets by mouth once daily. 30 tablet 5 06/16/2021 01/19/2022 Discontinued Start: 05-15-2020 End: 09-27-2023 take 1 tablet by mouth once daily Losartan 100 mg tablet Discontinued 100 mg PO .COMPLEX 90 3 July 04, 2023 5:37pm July 06, 2023 [...] Until Tere 09/27/23 at 1721, Insomnia, Post-op/Post-Proc Molnupiravir (20 sources) Start: 3 End: 4 take 1 [...] sources) Nonsteroidal Anti-inflammatory Drug Start: 2 End: 4 take 1 tablet by mouth twice daily as needed for pain Naproxen 500 mg tablet Discontinued 500 mg PO TWICE A DAY as needed for pain August 08, 2022 1:49pm August 16, 2023 1:16pm Naproxen [address] Take by mouth 2 times daily as needed for Mild Pain. Active Comment on above: Take 1 tablet by [facility] twice daily as needed (for pain/inflammation). Take with food. take 1 tablet by [facility] twice a day with food if needed for PAIN/INFLAMMATION nebivolol 10 mg oral tablet (20 sources) Start: 05-15-19 End: 06-08-19 take 1 tablet by mouth once daily Nebivolol 10 mg tablet Discontinued 10 mg PO DAILY August 08, 2022 1:50pm August 08, 2022 2:25pm Comment on above: Take 1 tablet by [facility] once daily. nystatin 100 unt/mg topical powder [...] Q8H as needed for nausea and vomiting 10 0 June 21, 2023 1:00am October 31, 2023 [...] (ROXICODONE) tablet 5 mg polyethylene glycol [id number] mg powder for oral solution (1 source) Osmotic Laxative Start: End: 17 g, Oral, DAILY NEEDED, Starting on Tere 09/27/23 at 1042, Until Tere 09/27/23 at 1721, Constipation 1st Line, Post-op/Post-Proc microencapsulated [...] Discontinued 20 mg PO AT BEDTIME 90 4 July 10, 2023 12:05pm 2024 11:39am pravastatin [...] 90 mg PO TWICE A DAY 60 6 December 27, 2022 12:00am January 24, 2023 [...] to bruising; Translations: [Spontaneous ecchymoses] 01-22-2023 Episodic Coronary atherosclerosis and other heart disease (20 sources) Coronary arteriosclerosis; Translations: [Atherosclerotic heart disease of [place] coronary artery without angina pectoris] Onset: 3 11-16-2022 Chronic Comment on above: Drug-eluting stent t o the proximal LAD. Drug-eluting stent to mid D1. Deficiency and other anemia (13 sources) Pancytopenia; Translations: [Other pancytopenia] 10-30-2023 Chronic [...] [Essential (primary) hypertension] Onset: 3 01-22-2019 Chronic Genitourinary symptoms and ill-defined conditions (5 sources) [...] foot, initial encounter] 08-19-2024 Episodic Other aftercare (13 sources) Wound ; Translations: [Encounter for other specified surgical aftercare] 10-13-2023 Episodic Other aftercare (13 sources) Drug therapy finding; Translations: [director long term care (current) use of anticoagulants] 10-30-2023 Episodic Other aftercare (1 source) Encounter for therapeutic drug level monitoring; Translations: [Encounter for therapeutic drug monitoring] Onset: 5 Episodic Other aftercare (1 source) longterm (current) use of anticoagulants; Translations: [longterm (current) use of anticoagulants] Onset: 5 Episodic Other and unspecified benign neoplasm (17 sources) Gastric polyp; Translations: [Polyp of stomach [...] and respiratory systems] Episodic Other circulatory disease (13 sources) Hemorrhage, not elsewhere classified; Translations: [Postoperative [...] unspecified] Onset: 5 Chronic Other gastrointestinal disorders (13 sources) Diarrhea; Translations: [Diarrhea, unspecified] 02-13-2024 Episodic Other gastrointestinal disorders (17 sources) Occult blood in stools; Translations: [Other fecal abnormalities] 05-19-2024 Episodic Other inflammatory condition of skin (1 source) Pruritus of vulva; Translations: [Pruritus vulvae] Episodic Other injuries and conditions due to external causes (1 source) Wound hemorrhage; Translations: [Other injury of unspecified body region, initial encounter] 08-18-2024 Episodic Other liver diseases (20 sources) Steatosis of liver; Translations: [Fatty (change [...] 5 03-21-2023 Chronic Other lower respiratory disease (1 source) Idiopathic non-specific interstitial pneumonitis; Translations: [Idiopathic non-specific interstitial pneumonitis] Onset: 5 Chronic Other lower respiratory disease (20 sources) Cough; Translations: [Acute cough] Episodic Other [...] without sciatica] Onset: 4 Unclassified (1 source) Other intervertebral disc degeneration, lumbar region with discogenic back pain and lower extremity pain; Translations: [Other intervertebral disc degeneration, lumbar region with discogenic back pain and lower extremity pain] Onset: 5 Unclassified (1 source) Cough, unspecified; Translations: [Cough, unspecified] Onset: 5 Urinary tract infections (20 sources) Urinary tract infectious disease; Translations: [Urinary tract infection, site not specified] 01-08-2023 Episodic Viral infection (2 sources) Viral disease; Translations: [Viral infection, unspecified] Episodic Past or Other Problems Problem Classification Problem Date Documented Da te Episodic/Chronic Acute posthemorrhagic anemia (18 sources) Anemia due to blood loss; Translations: [Acute posthemorrhagic anemia] Onset: 5 05-19-2024 Episodic Conditions associated with dizziness or vertigo (20 sources) Dizziness; Translations: [Dizziness and giddiness] Onset: 5 10-13-2023 Episodic Coronary atherosclerosis and other heart disease (20 sources) Stented coronary artery; Translations: [Presence of coronary angioplasty implant and graft] Onset: 3 12-27-2022 Episodic Comment on above: KRISTI Prox LAD using R esolute Holland 3.5x8 mm, optimized proximally using 4.0 mm balloon,KRISTI Mid D1 using Resolute Aníbal 2.25x15 mm Deficiency and other anemia (2 sources) Anemia, unspecified; Translations: [Anemia, unspecified type] Onset: 4 Episodic Fluid and electrolyte disorders (14 sources) Hyponatremia; Translations: [Hypo-osmolality and hyponatremia] Onset: 5 07-17-2024 Episodic Gastrointestinal hemorrhage (1 source) Gastrointestinal hemorrhage, unspecified; Translations: [Gastrointestinal hemorrhage, unspecified] Onset: 5 Episodic Immunizations and screening for infectious disease (5 sources) Contact with or exposure to other viral diseases; Translations: [Exposure to COVID-19 virus] Onset: 4 Episodic Other eye disorders (1 source) Conjunctival hemorrhage, right eye; Translations: [Conjunctival hemorrhage, right eye] Onset: 5 Episodic Other gastrointestinal disorders (1 source) Other [...] Test Name Value Interpretation Reference Range Facility Chest without Contraston Chest without Contrast Normal [facility] CBC W Auto Differential pane l (Bld)on 11-14-2024 Basophils (Bld) [#/Vol] NINF [facility] Basophils/100 WBC (Bld) 0.5 % [facility] Differential cell count method Nom (Bld) Auto [facility] Eosinophils (Bld) [#/Vol] 0.15 [facility] WBC (Bld) 3.5 % [facility] Erythrocyte distribution width (RBC) [Ratio] 13.7 % 11.5 - 15.0 % [facility] Hematocrit (Bld) [Volume fraction] 37.7 % 36.0 - 46.0 % [facility] Hemoglobin (Bld) [Mass/Vol] 12.6 g/dL 11.5 - 15.5 g/dL [facility] Immature granulocytes (Bld) [#/Vol] [facility] Immature granulocytes/100 WBC (Bld) 0.2 % [facility] Lymphocytes (Bld) [#/Vol] 1.19 10*3/uL [facility] Lymphocytes/100 WBC (Bld) 27.5 % [facility] MCH (RBC) [Entitic mass] 32.1 pg 26.0 - 34.0 pg [facility] MCHC (RBC) [Mass/Vol] 33.4 g/dL 30.5 - 36.0 g/dL [facility] MCV (RBC) [Entitic vol] 95.9 fL 80.0 - 100.0 fL [facility] Monocytes (Bld) [#/Vol] 0.56 10*3/uL [facility] Monocytes/100 WBC (Bld) 12.9 % [facility] Neutrophils (Bld) [#/Vol] 2.4 10*3/uL [facility] Neutrophils/100 WBC (Bld) 55.4 % [facility] Nucleated RBC (Bld) [#/Vol] [facility] Nucleated RBC/100 WBC (Bld) [Ratio] 0 % /100 WBC [facility] Platelet mean volume (Bld) [Entitic vol] 11.7 fL 9.0 - 12.7 fL [facility] Platelets (Bld) [#/Vol] 157 10*3/uL [facility] RBC (Bld) [#/Vol] 3.93 10*6/uL 3.90 - 5.20 m/uL [facility] WBC (Bld) [#/Vol] 4.33 10*3/uL [facility] Basophils (Bld) [#/Vol] 10*3/uL Normal <0.11 [facility] Comment on above: Order Comment: Speci men Type: BLOOD SPECIMENOrdering Facility: [facility] Address: [address] [place] [address] Performed By: #### 5 7021-8 ####[facility] [id number] [address] [place] Basophils/100 WBC (Bld) 0.5 % Normal [facility] Comment on above: Order Comment: Speci men Type: BLOOD SPECIMENOrdering Facility: [facility] Address: [address] [place] [address] Performed By: #### 5 7021-8 ####[facility] [id number] [place] [address] [place] Differential cell count method Nom (Bld) Auto Normal [facility] Comment on above: Order Comment: Speci men Type: BLOOD SPECIMENOrdering Facility: [facility] Address: [address] [place] [address] Performed By: #### 5 7021-8 ####[facility] [id number] [place] [address] [place] Eosinophils (Bld) [#/Vol] 0.15 10*3/uL Normal <0.46 [facility] Comment on above: Order Comment: Speci men Type: BLOOD SPECIMENOrdering Facility: [facility] Address: [address] [place] [address] Performed By: #### 5 7021-8 ####[facility] [id number] [place] [address] [place] Eosinophils/100 WBC (Bld) 3.5 % Normal [facility] Comment on above: Order Comment: Speci men Type: BLOOD SPECIMENOrdering Facility: [facility] Address: [address] [place] [address] Performed By: #### 5 7021-8 ####[facility] [id number] [place] [address] [place] Erythrocyte distribution width (RBC) [Ratio] 13.7 % Normal 11.5-15.0 [facility] Comment on above: Order Comment: Speci men Type: BLOOD SPECIMENOrdering Facility: [facility] Address: [address] [place] [address] Performed By: #### 5 7021-8 ####[facility] [id number] [address], [place] [address] [place] Hematocrit (Bld) [Volume fraction] 37.7 % Normal 36.0-46.0 [facility] Comment on above: Order Comment: Speci men Type: BLOOD SPECIMENOrdering Facility: [facility] Address: [address] [place] [address] Performed By: #### 5 7021-8 ####[facility] [id number] [address], [place] [address] [place] Hemoglobin (Bld) [Mass/Vol] 12.6 g/dL Normal 11.5-15.5 [facility] Comment on above: Order Comment: Speci men Type: BLOOD SPECIMENOrdering Facility: [facility] Address: [address] [place] [address] Performed By: #### 5 7021-8 ####[facility] [id number] [address], [place] [address] [place] Immature granulocytes (Bld) [#/Vol] 10*3/uL Normal <0.10 [facility] Comment on above: Order Comment: Speci men Type: BLOOD SPECIMENOrdering Facility: [facility] Address: [address] [place] [address] Performed By: #### 5 7021-8 ####[facility] [id number] [place] [address] [place] Immature granulocytes/100 WBC (Bld) 0.2 % Normal [facility] Comment on above: Order Comment: Speci men Type: BLOOD SPECIMENOrdering Facility: [facility] Address: [address] [place] [address] Performed By: #### 5 7021-8 ####[facility] [id number] [address], [facility]95 [place] Lymphocytes (Bld) [#/Vol] 1.19 10*3/uL Normal 1.00-4.00 [facility] Comment on above: Order Comment: Speci men Type: BLOOD SPECIMENOrdering Facility: [facility] Address: [address] [place] [address] Performed By: #### 5 7021-8 ####[facility] [id number] [place] [address] [place] Lymphocytes/100 WBC (Bld) 27.5 % Normal [facility] Comment on above: Order Comment: Speci men Type: BLOOD SPECIMENOrdering Facility: [facility] Address: [address] [place] [address] Performed By: #### 5 7021-8 ####[facility] [id number] [place] [address] [place] MCH (RBC) [Entitic mass] 32.1 pg Normal 26.0-34.0 [facility] Comment on above: Order Comment: Speci men Type: BLOOD SPECIMENOrdering Facility: [facility] Address: [address] [place] [address] Performed By: #### 5 7021-8 ####[facility] [id number] [place] [address] [place] MCHC (RBC) [Mass/Vol] 33.4 g/dL Normal 30.5-36.0 [facility] Comment on above: Order Comment: Speci men Type: BLOOD SPECIMENOrdering Facility: [facility] Address: [address] [place] [address] Performed By: #### 5 7021-8 ####[facility] [id number] [place] [address] [place] MCV (RBC) [Entitic vol] 95.9 fL Normal 80.0-100.0 [facility] Comment on above: Order Comment: Speci men Type: BLOOD SPECIMENOrdering Facility: [facility] Address: [address] [place] [address] Performed By: #### 5 7021-8 ####[facility] [id number] [address], [place] [address] [place] Monocytes (Bld) [#/Vol] 0.56 10*3/uL Normal <0.87 [facility] Comment on above: Order Comment: Speci men Type: BLOOD SPECIMENOrdering Facility: [facility] Address: [address] [place] [address] Performed By: #### 5 7021-8 ####[facility] [id number] [address], [place] [address] [place] Monocytes/100 WBC (Bld) 12.9 % Normal [facility] Comment on above: Order Comment: Speci men Type: BLOOD SPECIMENOrdering Facility: [facility] Address: [address] [place] [address] Performed By: #### 5 7021-8 ####[facility] [id number] [address], [facility]95 [place] Neutrophils (Bld) [#/Vol] 2.40 10*3/uL Normal 1.45-7.50 [facility] Comment on above: Order Comment: Speci men Type: BLOOD SPECIMENOrdering Facility: [facility] Address: [address] [place] [address] Performed By: #### 5 7021-8 ####[facility] [id number] [address], [facility]95 [place] Neutrophils/100 WBC (Bld) 55.4 % Normal [facility] Comment on above: Order Comment: Speci men Type: BLOOD SPECIMENOrdering Facility: [facility] Address: [address] [place] [address] Performed By: #### 5 7021-8 ####[facility] [id number] [address] [place] [address] [place] Nucleated RBC (Bld) [#/Vol] 10*3/uL Normal <0.01 [facility] Comment on above: Order Comment: Speci men Type: BLOOD SPECIMENOrdering Facility: [facility] Address: [address] [place] [address] Performed By: #### 5 7021-8 ####[facility] [id number] [place] [address] [place] Nucleated RBC/100 WBC (Bld) [Ratio] 0.0 /100 WBC Normal [facility] Comment on above: Order Comment: Speci men Type: BLOOD SPECIMENOrdering Facility: [facility] Address: [address] [place] [address] Performed By: #### 5 7021-8 ####[facility] [id number] [place] [address] [place] Platelet mean volume (Bld) [Entitic vol] 11.7 fL Normal 9.0-12.7 [facility] Comment on above: Order Comment: Speci men Type: BLOOD SPECIMENOrdering Facility: [facility] Address: [address] [place] [address] Performed By: #### 5 7021-8 ####[facility] [id number] [place] [address] [place] Platelets (Bld) [#/Vol] 157 10*3/uL Normal 150-400 [facility] Comment on above: Order Comment: Speci men Type: BLOOD SPECIMENOrdering Facility: [facility] Address: [address] [place] [address] Performed By: #### 5 7021-8 ####[facility] [id number] [place] [address] [place] RBC (Bld) [#/Vol] 3.93 10*6/uL Normal 3.90-5.20 [facility] Comment on above: Order Comment: Speci men Type: BLOOD SPECIMENOrdering Facility: [facility] Address: [address] [place] [address] Performed By: #### 5 7021-8 ####[facility] [id number] [address] [address] [place] WBC (Bld) [#/Vol] 4.33 10*3/uL Normal 3.70-11.00 [facility] Comment on above: Order Comment: Speci men Type: BLOOD SPECIMENOrdering Facility: [facility] Address: [address] [place] [address] Performed By: #### 5 7021-8 ####[facility] [id number] [place] [id number] [place] Prot/Creat Uron 11-14-2024 Protein/Creatinine (U) [Mass ratio] 0.07 mg/mg Normal <0.15 [facility] Comment on above: Order Comment: Speci men Type: URINE SPECIMENOrdering Facility: [facility] Address: [address] [place] [address] [address]LY MILLER, [place] [address] Result Comment: Adul t Proteinuria Categories: <0.15 mg/mg is considered normal to mildly increased 0.15 - 0.50 mg/mg is considered moderately increased >0.50 mg/mg is considered severely increased KDIGO. (2013). KDIGO 2012 Clinical Practice Guideline for the Evaluation and Management of Chronic Kidney Disease. Official Journal of the International Society of Nephrology, 3(1), 1-150. Performed By: #### 2 890-2 ####[facility] [id number] [place] [id number] [place] Protein/Creatinine (U) [Mass ratio]on 11-14-2024 Creatinine (U) [Mass/Vol] 83.0 mg/dL Normal 20.0-300.0 [facility] Comment on above: Order Comment: Speci men Type: URINE SPECIMENOrdering Facility: [facility] Address: [address] [place] [address] [address]LY MILLER, [place] [id number] Performed By: #### 2 890-2 ####[facility] [id number] [address] [place] [address] [place] Protein (U) [Mass/Vol] 6 mg/dL Normal 0-20 [facility] Comment on above: Order Comment: Speci men Type: URINE SPECIMENOrdering Facility: [facility] Address: [address] [place], [place] [address] [address] Performed By: #### 2 890-2 ####[facility] [id number] [address] [address] [place] Urinalysis complete panel (U )on 11-14-2024 Bacteria LM.HPF (Urine sed) [#/Area] Negative Normal Negative [facility] Comment on above: Order Comment: Speci men Type: URINE SPECIMENOrdering Facility: [facility] Address: [address] [place], [place] [address] [address] Performed By: #### 2 4356-8 ####[facility] [id number] [place] [id number] [place] Bilirubin Ql (U) Negative Normal Negative [facility] Comment on above: Order Comment: Speci men Type: URINE SPECIMENOrdering Facility: [facility] Address: [address] [place], [place] [address] [address] Performed By: #### 2 4356-8 ####[facility] [id number] [address] [place] [address] [place] Clarity (Unsp spec) Clear Normal Clear [facility] Comment on above: Order Comment: Speci men Type: URINE SPECIMENOrdering Facility: [facility] Address: [address] [place], [place] [address] [address] Performed By: #### 2 4356-8 ####[facility] [id number] [address], [place] [address] [place] [address] [facility] Color (U) Yellow Normal Yellow [facility] Comment on above: Order Comment: Speci men Type: URINE SPECIMENOrdering Facility: [facility] Address: [address] [place], [place] [address]A[place]ia , [place] [address] Performed By: #### 2 4356-8 ####[facility] [id number] [facility] [address] [place] [address] [place] Epithelial cells LM.HPF (Urine sed) [#/Area] Moderate Normal [facility] Comment on above: Order Comment: Speci men Type: URINE SPECIMENOrdering Facility: [facility] Address: [address] [place] [address], [place] [address] Performed By: #### 2 4356-8 ####[facility] [id number] [facility] [address], [facility]95 [place] Glucose Test strip (U) [Mass/Vol] Negative Normal Negative [facility] Comment on above: Order Comment: Speci men Type: URINE SPECIMENOrdering Facility: [facility] Address: [address] [place] [address], [place] [address] Performed By: #### 2 4356-8 ####[facility] [id number] [address] [place] [address] [place] Hemoglobin Ql (U) Negative Normal [facility] Comment on above: Order Comment: Speci men Type: URINE SPECIMENOrdering Facility: [facility] Address: [address] [place], [place] [address]A[place] , [place] [address] Performed By: #### 2 4356-8 ####[facility] [id number] [address] [address] [place] Hyaline casts (Urine sed) [#/Area] 1-3 /LPF Abnormal 0 /LPF [facility] Comment on above: Order Comment: Speci men Type: URINE SPECIMENOrdering Facility: [facility] Address: [address] [place], [place] [address]MARIA GUADALUPE [address]ILLER, [place] [address] Performed By: #### 2 4356-8 ####[facility] [id number] [facility] [address] [place] [address] [place] Ketones Ql (U) Negative Normal Negative [facility] Comment on above: Order Comment: Speci men Type: URINE SPECIMENOrdering Facility: [facility] Address: [address] [place] [address], [place] [address] Performed By: #### 2 4356-8 ####[facility] [id number] [facility] [address] [place] [address] [place] Leukocyte esterase Test strip Ql (U) Negative Normal Negative [facility] Comment on above: Order Comment: Speci men Type: URINE SPECIMENOrdering Facility: [facility] Address: [address] [place] [address] Performed By: #### 2 4356-8 ####[facility] [id number] [place] [id number] [place] Nitrite Ql (U) Negative Normal Negative [facility] Comment on above: Order Comment: Speci men Type: URINE SPECIMENOrdering Facility: [facility] Address: [address] [place] [address] Performed By: #### 2 4356-8 ####[facility] [id number] [place] [id number] [place] pH (U) 5.5 [pH] Normal <8.5 [facility] Comment on above: Order Comment: Speci men Type: URINE SPECIMENOrdering Facility: [facility] Address: [address] [place] [address], [place] [address] Performed By: #### 2 4356-8 ####[facility] [id number] [address] [place] [address] [place] Protein (U) [Mass/Vol] Negative Normal Negative [facility] Comment on above: Order Comment: Speci men Type: URINE SPECIMENOrdering Facility: [facility] Address: [address] [place] [address] Performed By: #### 2 4356-8 ####[facility] [id number] [address] [place] RBC LM.HPF (Urine sed) [#/Area] 0-2 /HPF Normal 0-2 /HPF [facility] Comment on above: Order Comment: Speci men Type: URINE SPECIMENOrdering Facility: [facility] Address: [address] [place], [place] [address] Performed By: #### 2 4356-8 ####[facility] [id number] [place] [address] [place] Specific gravity (U) [Rel density] 1.016 Normal 1.005-1.03 0 [facility] Comment on above: Order Comment: Speci men Type: URINE SPECIMENOrdering Facility: [facility] Address: [address] [place], [place] [address] Performed By: #### 2 4356-8 ####[facility] [id number] [address] Urobilinogen Ql (U) 1.0 EU/dL Normal 0.2-1.0 EU/dL [facility] Comment on above: Order Comment: Speci men Type: URINE SPECIMENOrdering Facility: [facility] Address: [address] [place], [place] [address] Performed By: #### 2 4356-8 ####[facility] [id number] [address] [place] [facility] WBC LM.HPF (Urine sed) [#/Area] 0-5 /HPF Normal 0-5 /HPF [facility] Comment on above: Order Comment: Speci men Type: URINE SPECIMENOrdering Facility: [facility] Address: [address] [facility], [place] [id number] Performed By: #### 2 4356-8 ####[facility] [id number] [address] OF [facility] Kyle 11-13-2024 ANTHONYN Telephone ([facility]) CASSIA HOLLAND ([id number]) 1965 F Date Time Provider Department 11/13/24 SHAHRIAR BROWN During your visit today, we recorded the following information about you: Tonie Day LPN 11/13/2024 10:58 AM Signed Patient calling she has been feeling very exhausted past few weeks. Patient is wondering if her anemia is worse again. Patient has conference in [place] next week does not want to get sick and need blood transfusion. Patient asking if could have lab orders to check? She said her stools are dark but she takes iron, she is scheduled for colonoscopy on 11/26. Patient has appt with Shahriar on 11/24/2024. Pending CBC, not sure what else may be wanted. Please advise Marvel Rice RN 11/14/2024 8:26 AM Signed Patient calls to check on status of request from yesterday. Notified pending provider review and will be notified once there is a response to request. BRYAN Guaamn Joy, APRN.NURSE STAFF 11/14/2024 1:06 PM Signed I have placed this but with her history numerous things could be causing her fatigue and I recommend she be seen. Thank you Shahriar Brown APRN.Julieta Sequeira MA 11/14/2024 1:48 PM Signed Patient notified, will get lab done and if needed schedule sooner appointment. Allergies As of Date: 11/13/2024 Noted Allergy Reaction CANTALOUPE 01/22/2019 18 - Angioedema LEVAQUIN (LEVOFLOXACIN) 04/12/2021 2 - Rash SULFA (SULFONAMIDE ANTIBIOTICS) 01/22/2019 4 - Hives Date Reviewed: 08/27/2024 Reviewed by: Shahriar Brown APRN.NURSE STAFF - Fully Assessed Reason for Visit: Patient Question [9777] Orders [681] Primary Visit Diagnosis:Other fatigue [R53.83] Order(s):COMPLETE BLOOD COUNT AND DIFFERENTIAL [SQCBCDIF] Order #: [id number] FUTURE Prescriptions as of 11/14/2024 - montelukast (SINGULAIR) 10 mg tablet Take 1 tablet by mouth once daily. - metFORMIN ER (GLUCOPHAGE XR) 500 mg 24 hr tablet Take 2 tablets by mouth two times a day with meals. - EPINEPHrine (EPIPEN) 0.3 mg/0.3 mL auto-injector Use per directed for severe allergic reaction - lansoprazole (PREVACID) 30 mg capsule Take 1 capsule by mouth once daily. - buPROPion XL (WELLBUTRIN XL) 150 mg 24 hr tablet Take 1 tablet by mouth once daily. - citalopram (CELEXA) 40 mg tablet Take 1 tablet by mouth once daily. - losartan (COZAAR) 50 mg tablet Take 1 tablet by mouth once daily. - fluticasone (FLONASE) 50 mcg/actuation nasal spray Use 2 sprays in each nostril once daily. - ferrous sulfate 325 mg (65 mg iron) tablet Take 1 tablet by mouth two times a day with meals. - budesonide (PULMICORT) 1 mg/2 mL nebulizer solution instill contents of 1 vial IN NASAL SALINE WASHES AND USE TWICE DAILY - tiZANidine HCl (ZANAFLEX) 2 mg capsule Take 1 capsule by mouth three times a day as needed. - triamcinolone acetonide (KENALOG) 0.1 % cream Apply to affected area two times a day. - carvedilol (COREG) 25 mg tablet Take 12.5 mg by mouth two times a day with meals. Takes 12.5mg BID - nitroglycerin sublingual (NITROSTAT) 0.4 mg SL tablet Dissolve 0.4 mg under the tongue every 5 minutes as needed for chest pain. - hydrOXYchloroQUINE (PLAQUENIL) 200 mg tablet Take 200 mg by mouth once daily. - isosorbide mononitrate ER (IMDUR) 30 mg 24 hr tablet Take 30 mg by mouth every morning. - benzonatate (TESSALON PERLES) 100 mg capsule Take 2 capsules by mouth three times a day as needed for cough. - apixaban (ELIQUIS) 5 mg tab(s) Take 5 mg by mouth two times a day. - pravastatin sodium (PRAVASTATIN ORAL) Take by mouth. - hydroCHLOROthiazide 25 mg tablet take 1 tablet by mouth once daily - lancets ([facility] DELICA PLUS LANCET) 33 gauge Test blood sugar(s) 1 times daily. Dx: Type 2 DM - Controlled E11.9 Insulin: No - blood sugar diagnostic ([facility] ULTRA TEST) test strip use 1 TEST STRIP to TEST BLOOD SUGAR once daily - levalbuterol tartrate HFA (XOPENEX HFA) 45 mcg/actuation inhaler Inhale 1-2 Puffs as instructed every 4 hours as needed. - Blood-Glucose Meter Dispense 1 kit Problem List As Of Date 11/13/2024 Noted Resolved Diabetes (HCC) [E11.9] Hypertension [I10] Other forms of systemic lupus erythematosus (HC* Graves disease [E05.00] Raynaud disease [I73.00] Mixed connective tissue disease (HCC) [M35.1] Interstitial lung disease (HCC) [J84.9] Fibromyalgia [M79.7] Cervicalgia [M54.2] 04/07/2021 Encounter Status:Closed by JULIETA CAMPUZANO on 11/14/24 Normal [facility] Inital Evaluation (1) - PTon 11-13-2024 Inital Evaluation (1) - PT Normal [facility] Respiratory Cultureon 2024 RESPC Mixed normal respira tory lior. No Streptococcus pneumoniae, beta-hemolytic Streptococcus or Staphylococcus aureus isolated. Normal [facility] Comment on above: Performed By: #### M 100.2000, M100.2400 ####[facility] [address] [place], [address] Gram Stainon 10-29-2024 GS Acceptable Specimen? Yes (<25 Epithelial cells per/lpf) Gram Stain 2+ Gram positive cocci 3+ White Blood Cells 1+ Epithelial cells Normal [facility] Comment on above: Performed By: #### M 100.2000, M100.2400 ####[facility] [address] [place], [address] Gram stainOrdered By: Lauro Mason on 10-28-2024 Microscopic observation Gram stain Nom (Unsp spec) [facility] Microbial respiratory cultur eOrdered By: Lauro Mason on 10-28-2024 Microorganism identified Cx Nom (Unsp spec) or Staphylococcus aureus isolated. [facility] C3 SerPl-mCncon 10-24-2024 Complement C3 [Mass/Vol] 131 mg/dL Normal 86-166 [facility] Comment on above: Order Comment: Bradley castellanos Type: BLOOD SPECIMENOrdering Facility: [facility] Address: [address] [place] [address] Performed By: #### 4 498-2, 4485-9, 39198-7, 1987-09 ####[facility] [id number] [place] [id number] [place] C4 SerPl-mCncon 10-24-2024 Complement C4 [Mass/Vol] 16 mg/dL Normal 13-46 [facility] Comment on above: Order Comment: Bradley castellanos Type: BLOOD SPECIMENOrdering Facility: [facility] Address: [address] [place], [place] [address] Performed By: #### 4 498-2, 4485-9, 71081-4, 1987-09 ####[facility] [id number] [place] [id number] [place] CBC W Auto Differential pane l (Bld)on 10-24-2024 Basophils (Bld) [#/Vol] 10*3/uL Normal <0.11 [facility] Comment on above: Order Comment: Bradley castellanos Type: BLOOD SPECIMENOrdering Facility: [facility] Address: [address] [place] [address], [place] [id number] Performed By: #### 4 537-7, 65937-7 ####[facility]CL[facility] [id number] [facility] [address] [place] [address] [place] Basophils/100 WBC (Bld) 0.2 % Normal [facility] Comment on above: Order Comment: Speci men Type: BLOOD SPECIMENOrdering Facility: [facility] Address: [address] [place] [address] Performed By: #### 4 537-7, 87364-7 ####[facility]CL[facility] [id number] [facility] [address] [place] [address] [place] Differential cell count method Nom (Bld) Auto Normal [facility] Comment on above: Order Comment: Speci men Type: BLOOD SPECIMENOrdering Facility: [facility] Address: [address] [place] [address] Performed By: #### 4 537-7, 19764-9 ####[facility]CL[facility] [id number] [address], [facility]95 [place] Eosinophils (Bld) [#/Vol] 0.12 10*3/uL Normal <0.46 [facility] Comment on above: Order Comment: Speci men Type: BLOOD SPECIMENOrdering Facility: [facility] Address: [address] [place] [address] Performed By: #### 4 537-7, 83774-2 ####[facility]CL[facility] [id number] [address], [facility]95 [place] Eosinophils/100 WBC (Bld) 2.7 % Normal [facility] Comment on above: Order Comment: Speci men Type: BLOOD SPECIMENOrdering Facility: [facility] Address: [address] [place] [address] Performed By: #### 4 537-7, 27707-8 ####[facility]CL[facility] [id number] [address], [facility]95 [place] Erythrocyte distribution width (RBC) [Ratio] 15.0 % Normal 11.5-15.0 [facility] Comment on above: Order Comment: Natashai emanuel Type: BLOOD SPECIMENOrdering Facility: [facility] Address: [address] [place] [address] Performed By: #### 4 537-7, 15123-1 ####[facility]CL[facility] [id number] [place] [id number] [place] Hematocrit (Bld) [Volume fraction] 36.4 % Normal 36.0-46.0 [facility] Comment on above: Order Comment: Bradley castellanos Type: BLOOD SPECIMENOrdering Facility: [facility] Address: [address] [place] [address] Performed By: #### 4 537-7, 67867-7 ####[facility] LABIA [id number] [place] [id number] [place] Hemoglobin (Bld) [Mass/Vol] 12.0 g/dL Normal 11.5-15.5 [facility] Comment on above: Order Comment: Bradley castellanos Type: BLOOD SPECIMENOrdering Facility: [facility] Address: [address] [place] [address] Performed By: #### 4 537-7, 40763-2 ####[facility] LABIA [id number] [place] [id number] [place] Immature granulocytes (Bld) [#/Vol] 10*3/uL Normal <0.10 [facility] Comment on above: Order Comment: Bradley castellanos Type: BLOOD SPECIMENOrdering Facility: [facility] Address: [address] [place] [address] Performed By: #### 4 537-7, 43422-3 ####[facility]CL[facility] [id number] [place] [id number] [place] Immature granulocytes/100 WBC (Bld) 0.5 % Normal [facility] Comment on above: Order Comment: Speci men Type: BLOOD SPECIMENOrdering Facility: [facility] Address: [address] [place] [address] ADINAMARIA GUADALUPE [address]ER, [place] [address] Performed By: #### 4 537-7, 28416-9 ####[facility]CLIA [id number] [place] [phone] [place] Lymphocytes (Bld) [#/Vol] 1.18 10*3/uL Normal 1.00-4.00 [facility] Comment on above: Order Comment: Speci men Type: BLOOD SPECIMENOrdering Facility: [facility] Address: [address] [place] [address] ADINAMARIA GUADALUPE [address]ER, [place] [address] Performed By: #### 4 537-7, 09271-3 ####[facility] LABIA [id number] [place] [phone] [place] Lymphocytes/100 WBC (Bld) 26.9 % Normal [facility] Comment on above: Order Comment: Speci men Type: BLOOD SPECIMENOrdering Facility: [facility] Address: [address] [place] [address] ADINAMARIA GUADALUPE [address]ILLER, [place] [address] Performed By: #### 4 537-7, 53413-1 ####[facility]IA [id number] [place] [phone] [place] MCH (RBC) [Entitic mass] 31.7 pg Normal 26.0-34.0 [facility] Comment on above: Order Comment: Speci men Type: BLOOD SPECIMENOrdering Facility: [facility] Address: [address] [place] [address] ADINAMAR[address] GUADALUPE [address]ILLER, [place] [address] Performed By: #### 4 537-7, 31780-0 ####[facility]CL[facility] [id number] [address] [address] [place] MCHC (RBC) [Mass/Vol] 33.0 g/dL Normal 30.5-36.0 [facility] Comment on above: Order Comment: Speci men Type: BLOOD SPECIMENOrdering Facility: [facility] Address: [address] [place] [address], [place] [address] Performed By: #### 4 537-7, 16244-1 ####[facility]CL[facility] [id number] [address] [address] [place] MCV (RBC) [Entitic vol] 96.3 fL Normal 80.0-100.0 [facility] Comment on above: Order Comment: Speci men Type: BLOOD SPECIMENOrdering Facility: [facility] Address: [address] [place] [address], [place] [address] Performed By: #### 4 537-7, 02846-9 ####[facility]CL[facility] [id number] [place] [address] [place] Monocytes (Bld) [#/Vol] 0.53 10*3/uL Normal <0.87 [facility] Comment on above: Order Comment: Speci men Type: BLOOD SPECIMENOrdering Facility: [facility] Address: [address] [place] [address], [place] [address] Performed By: #### 4 537-7, 45704-5 ####[facility]IA [id number] [place] [phone] [place] Monocytes/100 WBC (Bld) 12.1 % Normal [facility] Comment on above: Order Comment: Speci men Type: BLOOD SPECIMENOrdering Facility: [facility] Address: [address] [place] [address], [place] [address] Performed By: #### 4 537-7, 62513-3 ####[facility]IA [id number] [address] [address] [place] Neutrophils (Bld) [#/Vol] 2.52 10*3/uL Normal 1.45-7.50 [facility] Comment on above: Order Comment: Speci men Type: BLOOD SPECIMENOrdering Facility: [facility] Address: [address] [place] [address], [place] [address] Performed By: #### 4 537-7, 84237-9 ####[facility]IA [id number] [place] [address] [place] Neutrophils/100 WBC (Bld) 57.6 % Normal [facility] Comment on above: Order Comment: Speci men Type: BLOOD SPECIMENOrdering Facility: [facility] Address: [address] [place] [address], [place] [address] Performed By: #### 4 537-7, 40071-4 ####[facility] [id number] [place] [address] [place] Nucleated RBC (Bld) [#/Vol] 10*3/uL Normal <0.01 [facility] Comment on above: Order Comment: Speci men Type: BLOOD SPECIMENOrdering Facility: [facility] Address: [address] [place] [address], [place] [address] Performed By: #### 4 537-7, 14394-5 ####[facility] [id number] [place] [address] [place] Nucleated RBC/100 WBC (Bld) [Ratio] 0.0 /100 WBC Normal [facility] Comment on above: Order Comment: Speci men Type: BLOOD SPECIMENOrdering Facility: [facility] Address: [address] [place] [address], [place] [address] Performed By: #### 4 537-7, 46798-5 ####[facility] [id number] [place] [phone] [place] Platelet mean volume (Bld) [Entitic vol] 11.5 fL Normal 9.0-12.7 [facility] Comment on above: Order Comment: Speci men Type: BLOOD SPECIMENOrdering Facility: [facility] Address: [address] [place] [address] Performed By: #### 4 537-7, 44165-1 ####[facility] LABIA [id number] [address] [address] [place] Platelets (Bld) [#/Vol] 161 10*3/uL Normal 150-400 [facility] Comment on above: Order Comment: Speci men Type: BLOOD SPECIMENOrdering Facility: [facility] Address: [address] [place] [address] Performed By: #### 4 537-7, 55429-7 ####[facility] LABIA [id number] [place] [phone] [place] RBC (Bld) [#/Vol] 3.78 10*6/uL Low 3.90-5.20 [facility] Comment on above: Order Comment: Speci men Type: BLOOD SPECIMENOrdering Facility: [facility] Address: [address] [place] [address] Performed By: #### 4 537-7, 35067-4 ####[facility]IA [id number] [place] [phone] [place] WBC (Bld) [#/Vol] 4.38 10*3/uL Normal 3.70-11.00 [facility] Comment on above: Order Comment: Speci men Type: BLOOD SPECIMENOrdering Facility: [facility] Address: [address] [place], [place] [address] [address] Performed By: #### 4 537-7, 91848-0 ####[facility] [id number] [place] [phone] [place] [facility] [place] CRP SerPl-mCncon 10-24-2024 CRP [Mass/Vol] 0.3 mg/dL Normal <0.9 [facility] Comment on above: Order Comment: Speci men Type: BLOOD SPECIMENOrdering Facility: [facility] Address: [address] [place], [place] [address]MARIA GUADALUPE MILLER, [place] [address] Performed By: #### 4 498-2, 4485-9, 72430-8, 1987- ####[facility] [id number] [place] [address] [place] Creatinine + eGFR Pnl SerPlB ldon 10-24-2024 Creatinine and Glomerular filtration rate.predicted panel (S/P/Bld) 80 mL/min/1.73m??? Normal >=60 [facility] Comment on above: Order Comment: Speci men Type: BLOOD SPECIMENOrdering Facility: [facility] Address: [address] [place], [place] [address]Aleshia [place], [place] [address] Result Comment: Arianna mated Glomerular Filtration Rate [...] actual GFR. Performed By: #### 4 5066-8 ####[facility] [id number] [place] [address] [place] [facility] Creatinine and Glomerular fi ltration rate.predicted panel (S/P/Bld)on 10-24-2024 Creatinine [Mass/Vol] 0.84 mg/dL Normal 0.58-0.96 [facility] Comment on above: Order Comment: Natashai emanuel Type: BLOOD SPECIMENOrdering Facility: [facility] Address: [address] [place], [place] [address]Aleshia MILLER, [place] [phone] Performed By: #### 4 5066-8 ####[facility] [id number] [place] [phone] [place] DNA ANTIBODY DS BLDon 2024 DNA ANTIBODY 89 IU/mL Normal <=200 [facility] Comment on above: Order Comment: Speci men Type: BLOOD SPECIMENOrdering Facility: [facility] Address: [address] [place], [place] [address]MARIA GUADALUPE , [place] [address] Result Comment: Nega tive: <200 IU/mL Equivocal: 201-300 IU/mL Moderate Positive: 301-800 IU/mL Strong Positive: >801 IU/mL Performed By: #### D NAAB ####[facility]CL[facility] [id number] [place] [address] [place] DNA ANTIBODY QUALITATIVE INTERPRETATION Negative Normal Negative [facility] Comment on above: Order Comment: Speci men Type: BLOOD SPECIMENOrdering Facility: [facility] Address: [address] [place], [place] [address]Aleshia , [place] [address] Performed By: #### D NAAB ####[facility] [id number] [place] [address] [place] ESR Westergren method (Bld) [Velocity]on 10-24-2024 ESR (Bld) [Velocity] 12 mm/h Normal 0-20 [facility] Comment on above: Order Comment: Speci men Type: BLOOD SPECIMENOrdering Facility: [facility] Address: [address] [place], [place] [address]A[place]ia , [place] [address] Performed By: #### 4 537-7, 92064-2 ####[facility] [id number] [place] [address] [place] Hepatic function 2000 panelo n 10-24-2024 Albumin [Mass/Vol] 4.2 g/dL Normal 3.9-4.9 [facility] Comment on above: Order Comment: Speci men Type: BLOOD SPECIMENOrdering Facility: [facility] Address: [address] [place], [place] [address]MARIA GUADALUPE , [place] [phone] Performed By: #### 4 498-2, 4485-9, 92420-0, 1987- ####[facility]CL[facility] [id number] [place] [phone] [place] ALP [Catalytic activity/Vol] 82 U/L Normal 34-123 [facility] Comment on above: Order Comment: Speci men Type: BLOOD SPECIMENOrdering Facility: [facility] Address: [address] [place] [address] CARLY MILLER, [place] [address] Performed By: #### 4 498-2, 4485-9, , 1987-09 ####[facility]CL[facility] [id number] [address] [address] [place] ALT [Catalytic activity/Vol] 41 U/L High 7-38 [facility] Comment on above: Order Comment: Speci men Type: BLOOD SPECIMENOrdering Facility: [facility] Address: [address] [place] [address] CARLY MILLER, [place] [phone] Performed By: #### 4 498-2, 448-9, , 1987-09 ####[facility] [id number] [place] [address] [place] AST [Catalytic activity/Vol] 40 U/L High 13-35 [facility] Comment on above: Order Comment: Speci men Type: BLOOD SPECIMENOrdering Facility: [facility] Address: [address] [place] [address] CARLY MILLER, [place] [phone] Performed By: #### 4 498-2, 448-9, , 1987-09 ####[facility] [id number] [address] [address] [place] Bilirubin [Mass/Vol] 0.5 mg/dL Normal 0.2-1.3 [facility] Comment on above: Order Comment: Speci men Type: BLOOD SPECIMENOrdering Facility: [facility] Address: [address] [place] [address] CARLY MILLER, [place] [address] Performed By: #### 4 498-2, 4485-9, , 1987-09 ####[facility] [id number] [address] [address] [place] Bilirubin.conjugated [Mass/Vol] 0.2 mg/dL Normal <0.3 [facility] Comment on above: Order Comment: Speci men Type: BLOOD SPECIMENOrdering Facility: [facility] Address: [address] [place] [address] ADINAMARIA GUADALUPE MILLER, [place] [address] Performed By: #### 4 498-2, 4485-9, 24941-3, 1987-09 ####[facility] [id number] [address] [address] [place] Protein [Mass/Vol] 6.6 g/dL Normal 6.3-8.0 [facility] Comment on above: Order Comment: Speci men Type: BLOOD SPECIMENOrdering Facility: [facility] Address: [address] [place] [address] ADINAMARIA GUADALUPE MILLER, [place] [address] Performed By: #### 4 498-2, 4485-9, , 1987-09 ####[facility] [id number] [place] [id number] [place] Anion gap in Serum or Plasma Ordered By: Alicia Manzano on 10-21-2024 Anion gap [Moles/Vol] 11 mmol/L 5-15 [facility] BUN/creatinine ratioOrdered By: Alicia Manzano on 10-21-2024 Urea nitrogen/Creatinine [Mass ratio] 16.4 mg/mg 10-20 [facility] Bilirubin, totalOrdered By: Alicia Manzano on 10-21-2024 Bilirubin [Mass/Vol] 0.73 mg/dL 0.00-1.30 [facility] CBC-Complete Blood Cnt No Di ffon 10-21-2024 Erythrocyte distribution width (RBC) [Ratio] 14.9 % High 11.6-14.6 [facility] Comment on above: Performed By: #### L 100.0500, L500.4100, L500.4050 ####[facility] [address] [place], [place], [id number] Hematocrit (Bld) [Volume fraction] 36.7 % Low 37-47 [facility] Comment on above: Performed By: #### L 100.0500, L500.4100, L500.4050 ####[facility] [address] [place], [address] Hemoglobin (Bld) [Mass/Vol] 12.5 g/dL Normal 12.0-15.0 [facility] Comment on above: Performed By: #### L 100.0500, L500.4100, L500.4050 ####[facility] [address] [place], [address] MCH (RBC) [Entitic mass] 31.6 pg Normal 27.0-32.0 [facility] Comment on above: Performed By: #### L 100.0500, L500.4100, L500.4050 ####[facility] [address] [place], [address] MCHC (RBC) [Mass/Vol] 34.1 g/dL Normal 32-36 [facility] Comment on above: Performed By: #### L 100.0500, L500.4100, L500.4050 ####[facility] [address] [place], [address] MCV (RBC) [Entitic vol] 92.7 fL Normal 81-99 [facility] Comment on above: Performed By: #### L 100.0500, L500.4100, L500.4050 ####[facility] [address] [place], [address] Platelet mean volume (Bld) [Entitic vol] 10.4 fL Normal 6.2-12.0 [facility] Comment on above: Performed By: #### L 100.0500, L500.4100, L500.4050 ####[facility] [facility] [address] [place], [address] Platelets (Bld) [#/Vol] 146 10*3/uL Low 150-450 [facility] Comment on above: Performed By: #### L 100.0500, L500.4100, L500.4050 ####[facility] [address] [place], [address] RBC (Bld) [#/Vol] 3.96 10*6/uL Low 4.2-5.4 [facility] Comment on above: Performed By: #### L 100.0500, L500.4100, L500.4050 ####[facility] [address] [place], [address] RDW SD 51.2 fl High 35.1-43.9 [facility] Comment on above: Performed By: #### L 100.0500, L500.4100, L500.4050 ####[facility] [address] [place], [address] WBC (Bld) [#/Vol] 3.3 10*3/uL Low 4.4-11.0 [facility] Comment on above: Performed By: #### L 100.0500, L500.4100, L500.4050 ####[facility] [address] [place], [address] Calculated very low density lipoprotein (VLDL) cholesterol measurementOrdered By: Alicia Manzano on 10-21-2024 Calculated very low density lipoprotein (VLDL) cholesterol measurement 14 mg/dL 5-40 [facility] Carbon dioxide, total [Moles /volume] in Central venous bloodOrdered By: Alicia Manzano on 10-21-2024 CO2 [Moles/Vol] 23.6 mmol/L 21.0-32.0 [facility] Chloride assayOrdered By: Earl Manzano on 10-21-2024 Chloride [Moles/Vol] 101 mmol/L 98-108 [facility] Comprehensive Metabolic Prof ilon 10-21-2024 Albumin [Mass/Vol] 4.3 g/dL Normal 3.5-5.0 [facility] Comment on above: Performed By: #### L 100.0500, L500.4100, L500.4050 ####[facility] [address] [place], [address] Albumin/Globulin [Mass ratio] 1.6 {ratio} Normal 0.9-2.4 [facility] Comment on above: Performed By: #### L 100.0500, L500.4100, L500.4050 ####[facility] [address] [place], [address] ALK PHOS 87 U/L Normal 35-104 [facility] Comment on above: Performed By: #### L 100.0500, L500.4100, L500.4050 ####[facility] [address] [place], [address] ALT [Catalytic activity/Vol] 46 U/L High <=34 [facility] Comment on above: Performed By: #### L 100.0500, L500.4100, L500.4050 ####[facility] [address] [place], [address] AST [Catalytic activity/Vol] 41 U/L High <=31 [facility] Comment on above: Performed By: #### L 100.0500, L500.4100, L500.4050 ####[facility] [address] [place], [address] Bilirubin [Mass/Vol] 0.73 mg/dL Normal 0.00-1.30 [facility] Comment on above: Performed By: #### L 100.0500, L500.4100, L500.4050 ####[facility] [address] [place], [address] BUN/CRE 16.4 RATIO Normal 10-20 [facility] Comment on above: Performed By: #### L 100.0500, L500.4100, L500.4050 ####[facility] [address] [place], [address] Calcium [Mass/Vol] 9.4 mg/dL Normal 7.6-11.0 [facility] Comment on above: Performed By: #### L 100.0500, L500.4100, L500.4050 ####[facility] [address] [place], [address] Chloride [Moles/Vol] 101 mmol/L Normal 98-108 [facility] Comment on above: Performed By: #### L 100.0500, L500.4100, L500.4050 ####[facility] [address] [place], [address] CO2 [Moles/Vol] 23.6 mmol/L Normal 21.0-32.0 [facility] Comment on above: Performed By: #### L 100.0500, L500.4100, L500.4050 ####[facility] [address] [place], [address] Creatinine [Mass/Vol] 0.72 mg/dL Normal 0.70-1.20 [facility] Comment on above: Performed By: #### L 100.0500, L500.4100, L500.4050 ####[facility] [address] [place], [address] GAP 11 Normal 5-15 [facility] Comment on above: Performed By: #### L 100.0500, L500.4100, L500.4050 ####[facility] [address] [place], [address] GFR/1.73 sq M.predicted among non-blacks MDRD (S/P/Bld) [Vol rate/Area] 97 mL/min/{1.73_m2} Normal >60 [facility] Comment on above: Result Comment: mL/m in/1.73m2 CKD-EPI Creatinine Equation (2020) Performed By: #### L 100.0500, L500.4100, L500.4050 ####[facility] [address] [place], [address] Globulin (S) [Mass/Vol] 2.8 g/dL Normal 2.2-4.2 [facility] Comment on above: Performed By: #### L 100.0500, L500.4100, L500.4050 ####[facility] [address] [place], [address] Glucose [Mass/Vol] 118 mg/dL High 70-99 [facility] Comment on above: Performed By: #### L 100.0500, L500.4100, L500.4050 ####[facility] [address] [place], [address] Potassium [Moles/Vol] 4.5 mmol/L Normal 3.3-5.1 [facility] Comment on above: Performed By: #### L 100.0500, L500.4100, L500.4050 ####[facility] [address] [place], [address] Sodium [Moles/Vol] 136 mmol/L Normal 133-145 [facility] Comment on above: Performed By: #### L 100.0500, L500.4100, L500.4050 ####[facility] [address] [place], [address] T PROT 7.1 g/dL Normal 5.9-8.4 [facility] Comment on above: Performed By: #### L 100.0500, L500.4100, L500.4050 ####[facility] [address] [place], [address] Urea nitrogen [Mass/Vol] 12 mg/dL Normal 4-19 [facility] Comment on above: Performed By: #### L 100.0500, L500.4100, L500.4050 ####[facility] [address] [place], [place], [address] Erythrocyte distribution wid th ratioOrdered By: Alicia Manzano on 10-21-2024 Erythrocyte distribution width (RBC) [Ratio] 14.9 % High 11.6-14.6 [facility] Erythrocyte distribution wid th standard deviationOrdered By: Alicia Manzano on 10-21-2024 Erythrocyte distribution width (RBC) [Ratio] 51.2 fl High 35.1-43.9 [facility] Glomerular filtration rate ( GFR) estimation/1.73 sq m using serum, plasma, or whole bOrdered By: Alicia Manzano on 10-21-2024 GFR/1.73 sq M.predicted among non-blacks MDRD (S/P/Bld) [Vol rate/Area] 97 mL/min/{1.73_m2} >60 [facility] Comment on above: mL/min/1.73m2 CKD-EP I Creatinine Equation (2020) Hematocrit Auto (Bld) [Volum e fraction]Ordered By: Alicia Manzano on 10-21-2024 Hematocrit (Bld) [Volume fraction] 36.7 % Low 37-47 [facility] Hemoglobin measurementOrdere d By: Alicia Manzano on 10-21-2024 Hemoglobin (Bld) [Mass/Vol] 12.5 g/dL 12.0-15.0 [facility] LDL calc ser/plasOrdered By: Alicia Manzano on 10-21-2024 Cholesterol in LDL [Mass/Vol] 87 mg/dL [facility] Comment on above: Lojunrilfq=613-901 m g/dL & Higher Xivf=315 mg/dL or greater Laboratory - Chemistry and C hemistry - challengeOrdered By: Alicia Manzano on 10-21-2024 AST [Catalytic activity/Vol] 41 U/L High <32 [facility] Lipid Profileon 10-21-2024 CHOL:HDL 2.54 Normal [facility] Comment on above: Performed By: #### L 100.0500, L500.4100, L500.4050 ####[facility] [address] [place], [address] Cholesterol [Mass/Vol] 167 mg/dL Normal <=200 [facility] Comment on above: Result Comment: Chol esterol level, Desirable <200 mg/dLBorderline high cholesterol 200-239 mg/dLHigh cholesterol >=240 mg/dLRecommendations of the NCEP Adult Treatment Panel for thefollowing risk-cutoff thresholds for the [place] Americanpulation. Performed By: #### L 100.0500, L500.4100, L500.4050 ####[facility] [address] [place], [address] Cholesterol in HDL [Mass/Vol] 66 mg/dL Normal [facility] Comment on above: Result Comment: Cristin onal Cholesterol Education Program (NCEP) guidelines:<40 mg/dL: Low HDL-cholesterol (major risk factor for CHD)>= 60 mg/dL: High HDL-cholesterol (negative risk factor forCHD)HDL-cholesterol is affected by a number of factors, e.g.smoking, exercise, hormones, sex and age. Performed By: #### L 100.0500, L500.4100, L500.4050 ####[facility] [address] [place], [address] Cholesterol in LDL [Mass/Vol] 87 mg/dL Normal [facility] Comment on above: Result Comment: Bord letmod=860-440 mg/dL Higher Udgc=193 mg/dL or greater Performed By: #### L 100.0500, L500.4100, L500.4050 ####[facility] [address] [place], [address] Cholesterol in VLDL [Mass/Vol] 14 mg/dL Normal 5-40 [facility] Comment on above: Performed By: #### L 100.0500, L500.4100, L500.4050 ####[facility] [address] [place], [address] Triglyceride [Mass/Vol] 70 mg/dL Normal [facility] Comment on above: Result Comment: The drugs N-Acetylcysteine and Metamizole may falselydepress this assay.Normal range: <150 mg/dLBorderline High: 150-199 mg/dLHigh: 200-499 mg/dLVery High: >500 mg/dL Performed By: #### L 100.0500, L500.4100, L500.4050 ####[facility] [address] [place], [address] MCV (mean corpuscular volume ) determinationOrdered By: Alicia Manzano on 10-21-2024 MCV (RBC) [Entitic vol] 92.7 fL 81-99 [facility] Mean corpuscular hemoglobin (MCH) determinationOrdered By: Alicia Manzano on 10-21-2024 MCH (RBC) [Entitic mass] 31.6 pg 27.0-32.0 [facility] Mean corpuscular hemoglobin concentration (MCHC) determinationOrdered By: Alicia Manzano on 10-21-2024 MCHC (RBC) [Mass/Vol] 34.1 g/dL 32-36 [facility] Mean platelet volume determi nationOrdered By: Alicia Manzano on 10-21-2024 Platelet mean volume (Bld) [Entitic vol] 10.4 fL 6.2-12.0 [facility] Platelet countOrdered By: Earl Manzano on 10-21-2024 Platelets (Bld) [#/Vol] 146 10*3/uL Low 150-450 [facility] Potassium measurement (mass/ volume)Ordered By: Alicia Manzano on 10-21-2024 Potassium (Unsp spec) [Mass/Vol] 4.5 mmol/L 3.3-5.1 [facility] RBC Auto (Bld) [#/Vol]Ordere d By: Alicia Manzano on 10-21-2024 RBC (Bld) [#/Vol] 3.96 10*6/uL Low 4.2-5.4 [facility] Screening total cholesterol/ high density lipoprotein (HDL) cholesterol ratioOrdered By: Alicia Manzano on 10-21-2024 Cholesterol.total/Chol esterol in HDL [Mass ratio] 2.54 {ratio} [facility] Serum creatinine measurement (mass/volume)Ordered By: Alicia Manzano on 10-21-2024 Creatinine [Mass/Vol] 0.72 mg/dL 0.70-1.20 [facility] Serum globulin measurementOr dered By: Alicia Manzano on 10-21-2024 Globulin (S) [Mass/Vol] 2.8 g/dL 2.2-4.2 [facility] Serum glucose measurement (m ass/volume)Ordered By: Alicia Manzano on 10-21-2024 Glucose [Mass/Vol] 118 mg/dL High 70-99 [facility] Serum or plasma alanine amaro otransferase (ALT) measurementOrdered By: Alicia Manzano on 10-21-2024 ALT [Catalytic activity/Vol] 46 U/L High <35 [facility] Serum or plasma albumin hailee urement (mass/volume)Ordered By: Alicia Manzano on 10-21-2024 Albumin [Mass/Vol] 4.3 g/dL 3.5-5.0 [facility] Serum or plasma albumin/glob ulin mass ratioOrdered By: Alicia Manzano on 10-21-2024 Albumin/Globulin [Mass ratio] 1.6 {ratio} 0.9-2.4 [facility] Serum or plasma alkaline caren sphatase measurementOrdered By: Alicia Manzano on 10-21-2024 ALP [Catalytic activity/Vol] 87 U/L 35-104 [facility] Serum or plasma calcium hailee urement (mass/volume)Ordered By: Alicia Manzano on 10-21-2024 Calcium [Mass/Vol] 9.4 mg/dL 7.6-11.0 [facility] Serum or plasma cholesterol in HDL measurement (mass/volume)Ordered By: Alicia Manzano on 10-21-2024 Cholesterol in HDL [Mass/Vol] 66 mg/dL >40 [facility] Comment on above: National Cholesterol Education Program (NCEP) guidelines:<40 mg/dL: Low HDL-cholesterol (major risk factor for CHD)>= 60 mg/dL: High HDL-cholesterol (negative risk factor for CHD)HDL-cholesterol is affected by a number of factors, e.g. smoking, exercise, hormones, sex and age. Serum or plasma cholesterol measurement (mass/volume)Ordered By: Alicia Manzano on 10-21-2024 Cholesterol [Mass/Vol] 167 mg/dL <201 [facility] Comment on above: Cholesterol level, D esirable <200 mg/dLBorderline high cholesterol 200-239 mg/dLHigh cholesterol >=240 mg/dLRecommendations of the NCEP Adult Treatment Panel for the following risk-cutoff thresholds for the [place] population. Serum or plasma urea nitroge n measurement (mass/volume)Ordered By: Alicia Manzano on 10-21-2024 Urea nitrogen [Mass/Vol] 12 mg/dL 4-19 [facility] Sodium levelOrdered By: Nico Manzano on 10-21-2024 Sodium [Moles/Vol] 136 mmol/L 133-145 [facility] Total proteinOrdered By: Yanet Manzano on 10-21-2024 Protein [Mass/Vol] 7.1 g/dL 5.9-8.4 [facility] Triglycerides measurementOrd ered By: Alicia Manzano on 10-21-2024 Triglyceride [Mass/Vol] 70 mg/dL <199 [facility] Comment on above: The drugs N-Acetylcy steine and Metamizole may falsely depress this assay. Normal range: <150 mg/dLBorderline High: 150-199 mg/dLHigh: 200-499 mg/dLVery High: >500 mg/dL White blood cell (WBC) count Ordered By: Alicia Manzano on 10-21-2024 WBC (Bld) [#/Vol] 3.3 10*3/uL Low 4.4-11.0 [facility] Cardiology Visit Reporton Cardiology Visit Report Normal [facility] Respiratory Cultureon 2024 RESPC Normal [facility] Comment on above: Performed By: #### M 100.2000, M100.2400 ####[facility] [address] [place], [address] Gram Stainon 09-26-2024 GS Acceptable Specimen? Yes (<25 Epithelial cells per/lpf) Gram Stain 4+ Gram positive cocci 2+ Gram positive rods 1+ Epithelial cells Rare White Blood Cells Normal [facility] Comment on above: Performed By: #### M 100.2000, M100.2400 ####[facility] [address] [facility] [place], [place], [id number] Gram stainOrdered By: Lauro Mason on 09-26-2024 Microscopic observation Gram stain Nom (Unsp spec) [facility] Microbial respiratory cultur eOrdered By: Lauro Mason on 09-26-2024 Microorganism identified Cx Nom (Unsp spec) Pseudomonas aeruginosa Abnormal [facility] Mycoplasma Pneu IgG / IgMon 09-22-2024 M PNEUMONIA IgG 201 U/mL High 0-99 [facility] Comment on above: Result Comment: Nega tive: <100 Indeterminate: 100 - 320 Positive: >320The reference interval established is intended as abaseline only. Values >100 may indicate a recentinfection with Mycoplasma pneumoniae and need to beconfirmed either by a positive IgM result and/or anadditional specimen drawn 2-4 weeks later showing asignificant increase in antibody levels. Performed By: #### L 7000.2400 ####[facility] [address] [facility] [place], [place], [address] M PNEUMONIA IgM < 770 Normal 0-769 [facility] Comment on above: Result Comment: Nega tive <770Clinically significant amount of M. pneumoniae antibodynot detected. Low Positive 770 - 950M. pneumoniae specific IgM presumptively detected. Itis recommended that another sample be collected 1-2weeks later to assure reactivity. Positive >950Highly significant amount of M. pneumoniae specificIgM antibody detected.Performed at: [facility] [id number] Director: Jose Castillo PhD, Phone: [phone] Performed By: #### L 7000.2400 ####[facility] [address] [place], [place], [id number] RESPIRATORY PANEL MOLECULARo n 09-19-2024 RP PANEL Normal [facility] Comment on above: Performed By: #### M 100.638 ####[facility] [address] [place], [address] Respiratory pathogens detect ion panel by molecular detection methodOrdered By: Lauro Mason on 09-19-2024 Respiratory pathogens DNA and RNA panel CAROLINA+probe (Resp) Human [place] Abnormal [facility] Serum Mycoplasma pneumoniae IgG antibody detectionOrdered By: Lauro Mason on 09-19-2024 M. pneumoniae IgG Ql (S) 201 U/mL High 0-99 [facility] Comment on above: Negative: <100 Indet erminate: [...] IgM Ql (S) < 770 U/mL 0-769 [facility] Comment on above: Negative <770Clinica lly significant amount of M. pneumoniae antibodynot detected. Low Positive 770 - 950M. pneumoniae specific IgM presumptively detected. Itis recommended that another sample be collected 1-2weeks later to assure reactivity. Positive >950Highly significant amount of M. pneumoniae specificIgM antibody detected.Performed at: [facility] [id number] Director: Jose Castillo PhD, Phone: [phone] Chest PA and Lateralon 09-17 Chest PA and Lateral Normal [facility] CBC W Auto Differential pane l (Bld)on 08-27-2024 Basophils (Bld) [#/Vol] 10*3/uL Normal <0.11 [facility] Comment on above: Order Comment: Speci men Type: BLOOD SPECIMENOrdering Facility: [facility] Address: [address] [place] [address] Performed By: #### 5 7021-8 ####[facility] LABCLIA [id number] [place] [address] [place] Basophils/100 WBC (Bld) 0.5 % Normal [facility] Comment on above: Order Comment: Speci men Type: BLOOD SPECIMENOrdering Facility: [facility] Address: [address] [place] [address] Performed By: #### 5 7021-8 ####[facility]CL[facility] [id number] [place] [address] [place] Differential cell count method Nom (Bld) Auto Normal [facility] Comment on above: Order Comment: Speci men Type: BLOOD SPECIMENOrdering Facility: [facility] Address: [address] [place] [address] Performed By: #### 5 7021-8 ####[facility]IA [id number] [place] [address] [place] Eosinophils (Bld) [#/Vol] 0.09 10*3/uL Normal <0.46 [facility] Comment on above: Order Comment: Speci men Type: BLOOD SPECIMENOrdering Facility: [facility] Address: [address] [place] [address] Performed By: #### 5 7021-8 ####[facility] [id number] [place] [address] [place] Eosinophils/100 WBC (Bld) 2.3 % Normal [facility] Comment on above: Order Comment: Speci men Type: BLOOD SPECIMENOrdering Facility: [facility] Address: [address] [place] [address] Performed By: #### 5 7021-8 ####[facility]IA [id number] [place] [address] [place] Erythrocyte distribution width (RBC) [Ratio] 18.1 % High 11.5-15.0 [facility] Comment on above: Order Comment: Speci men Type: BLOOD SPECIMENOrdering Facility: [facility] Address: [address] [place] [address] Performed By: #### 5 7021-8 ####[facility]CL[facility] [id number] [place] [address] [place] Hematocrit (Bld) [Volume fraction] 37.1 % Normal 36.0-46.0 [facility] Comment on above: Order Comment: Speci men Type: BLOOD SPECIMENOrdering Facility: [facility] Address: [address] [place] [address] Performed By: #### 5 7021-8 ####[facility] [id number] [place] [address] [place] Hemoglobin (Bld) [Mass/Vol] 12.3 g/dL Normal 11.5-15.5 [facility] Comment on above: Order Comment: Speci men Type: BLOOD SPECIMENOrdering Facility: [facility] Address: [address] [place] [address] Performed By: #### 5 7021-8 ####[facility]IA [id number] [place] [address] [place] Immature granulocytes (Bld) [#/Vol] 10*3/uL Normal <0.10 [facility] Comment on above: Order Comment: Speci men Type: BLOOD SPECIMENOrdering Facility: [facility] Address: [address] [place] [address] Performed By: #### 5 7021-8 ####[facility]IA [id number] [place] [address] [place] Immature granulocytes/100 WBC (Bld) 0.0 % Normal [facility] Comment on above: Order Comment: Speci men Type: BLOOD SPECIMENOrdering Facility: [facility] Address: [address] [place] [address] Performed By: #### 5 7021-8 ####[facility]CL[facility] [id number] [place] [address] [place] Lymphocytes (Bld) [#/Vol] 1.03 10*3/uL Normal 1.00-4.00 [facility] Comment on above: Order Comment: Speci men Type: BLOOD SPECIMENOrdering Facility: [facility] Address: [address] [place] [address] Performed By: #### 5 7021-8 ####[facility]IA [id number] [place] [address] [place] Lymphocytes/100 WBC (Bld) 26.9 % Normal [facility] Comment on above: Order Comment: Speci men Type: BLOOD SPECIMENOrdering Facility: [facility] Address: [address] [place] [address] Performed By: #### 5 7021-8 ####[facility]IA [id number] [place] [address] [place] MCH (RBC) [Entitic mass] 28.9 pg Normal 26.0-34.0 [facility] Comment on above: Order Comment: Speci men Type: BLOOD SPECIMENOrdering Facility: [facility] Address: [address] [place] [address] Performed By: #### 5 7021-8 ####[facility]IA [id number] [place] [address] [place] MCHC (RBC) [Mass/Vol] 33.2 g/dL Normal 30.5-36.0 [facility] Comment on above: Order Comment: Speci men Type: BLOOD SPECIMENOrdering Facility: [facility] Address: [address] [place] [address] Performed By: #### 5 7021-8 ####[facility]IA [id number] [place] [address] [place] MCV (RBC) [Entitic vol] 87.3 fL Normal 80.0-100.0 [facility] Comment on above: Order Comment: Speci men Type: BLOOD SPECIMENOrdering Facility: [facility] Address: [address] [place] [address] Performed By: #### 5 7021-8 ####[facility]CLIA [id number] [facility] [address], [place] [address] [place] Monocytes (Bld) [#/Vol] 0.45 10*3/uL Normal <0.87 [facility] Comment on above: Order Comment: Speci men Type: BLOOD SPECIMENOrdering Facility: [facility] Address: [address] [place] [address] Performed By: #### 5 7021-8 ####[facility]CL[facility] [id number] [address], [place] [address] [place] Monocytes/100 WBC (Bld) 11.7 % Normal [facility] Comment on above: Order Comment: Speci men Type: BLOOD SPECIMENOrdering Facility: [facility] Address: [address] [place] [address] Performed By: #### 5 7021-8 ####[facility]CL[facility] [id number] [address], [place] [address] [place] Neutrophils (Bld) [#/Vol] 2.24 10*3/uL Normal 1.45-7.50 [facility] Comment on above: Order Comment: Speci men Type: BLOOD SPECIMENOrdering Facility: [facility] Address: [address] [place] [address] Performed By: #### 5 7021-8 ####[facility] [id number] [facility] [address], [facility]95 [place] Neutrophils/100 WBC (Bld) 58.6 % Normal [facility] Comment on above: Order Comment: Speci men Type: BLOOD SPECIMENOrdering Facility: [facility] Address: [address] [place] [address] Performed By: #### 5 7021-8 ####[facility] [id number] [facility] [address], [facility]95 [place] Nucleated RBC (Bld) [#/Vol] 10*3/uL Normal <0.01 [facility] Comment on above: Order Comment: Speci men Type: BLOOD SPECIMENOrdering Facility: [facility] Address: [address] [place] [address] Performed By: #### 5 7021-8 ####[facility] [id number] [place] [address] [place] Nucleated RBC/100 WBC (Bld) [Ratio] 0.0 /100 WBC Normal [facility] Comment on above: Order Comment: Speci men Type: BLOOD SPECIMENOrdering Facility: [facility] Address: [address] [place] [address] Performed By: #### 5 7021-8 ####[facility] [id number] [place] [address] [place] Platelet mean volume (Bld) [Entitic vol] 11.2 fL Normal 9.0-12.7 [facility] Comment on above: Order Comment: Speci men Type: BLOOD SPECIMENOrdering Facility: [facility] Address: [address] [place] [address] Performed By: #### 5 7021-8 ####[facility] [id number] [place] [address] [place] Platelets (Bld) [#/Vol] 134 10*3/uL Low 150-400 [facility] Comment on above: Order Comment: Speci men Type: BLOOD SPECIMENOrdering Facility: [facility] Address: [address] [place] [address] Result Comment: Resu lts checked and verified.No clot detected. Performed By: #### 5 7021-8 ####[facility] [id number] [place] [address] [place] RBC (Bld) [#/Vol] 4.25 10*6/uL Normal 3.90-5.20 [facility] Comment on above: Order Comment: Speci men Type: BLOOD SPECIMENOrdering Facility: [facility] Address: [address] [place] [address] Performed By: #### 5 7021-8 ####[facility] [id number] [place] [address] [place] WBC (Bld) [#/Vol] 3.83 10*3/uL Normal 3.70-11.00 [facility] Comment on above: Order Comment: Speci men Type: BLOOD SPECIMENOrdering Facility: [facility] Address: [address] [place] [address] Performed By: #### 5 7021-8 ####[facility] [id number] [place] [address] [place] CNOVon 08-27-2024 CNOV Office Visit (INTMWS ) CASSIA HOLLAND ([id number]) 1965 F Date Time Provider Department 08/27/24 9:20 AM SHAHRIAR BROWN During your visit today, we recorded the following information about you: Pulse Respiration Blood pressure Weight 76/minute 16/minute 140/82 88 kg Shahriar Brown APRN.CNP 08/27/2024 9:45 AM Signed Request a refill at [facility] for your losartan, citalopram, and bupropion. [...] feeling well--plan to discuss this possibility [facility]. Schedule repeat blood work to ensure your blood counts remain within a good range, as we discussed. Attend your follow-up appointments: - See Dr. Manzano at [facility] next week regarding your chest symptoms. - Have your colonoscopy as scheduled - See your car wrecker (with Anurag) as scheduled. - Return for a general follow-up visit in 3 months to review your progress and any medication adjustments. Shahriar Brown APRN.CNP 08/27/2024 5:02 PM Signed CC: Patient presents with: Recheck: 3 month follow up HPI Cassia Holland is a 58 year old female who presents today for routine follow up. Recording using [employer] software for draft documentation of the visit was discussed with the patient/authorized patient registration representative; all questions welcomed and answered. Patient/authorized patient registration representative agreed to proceed Liver Fibrosis: - Last blood work showed improvement. - Follow-up with car wrecker and GI at [facility] - Feeling good at this time [...] chest pain or palpitations. - follows with [facility] and has appointment with them next week. [...] isosorbide mononitra (more content not included)... Normal [facility] Comprehensive metabolic 2000 panelon 08-27-2024 Albumin [Mass/Vol] 4.3 g/dL Normal 3.9-4.9 [facility] Comment on above: Order Comment: Speci men Type: BLOOD SPECIMEN Ordering Facility: [facility] Address: [address] [place] [id number] Performed By: #### C RET1 #### [facility] CLIA [id number] [address] [place] [address] [place] ALP [Catalytic activity/Vol] 108 U/L Normal 34-123 [facility] Comment on above: Order Comment: Speci men Type: BLOOD SPECIMEN Ordering Facility: [facility] Address: [address] [place] [address] [address] [place], [place] [address] Performed By: #### C RET1 #### [facility] CLIA [id number] [address] [place] [id number] [place] ALT [Catalytic activity/Vol] 49 U/L High 7-38 [facility] Comment on above: Order Comment: Speci men Type: BLOOD SPECIMEN Ordering Facility: [facility] Address: [address] [place] [address] [address] [place], [place] [address] Performed By: #### C RET1 #### [facility] CLIA [id number] [address] [place] [address] [place] Anion gap [Moles/Vol] 10 mmol/L Normal 8-15 [facility] Comment on above: Order Comment: Speci men Type: BLOOD SPECIMEN Ordering Facility: [facility] Address: [address] [place] [address] [address] [place], [place] [address] Performed By: #### C RET1 #### [facility] CLIA [id number] [address] [place] [address] [place] AST [Catalytic activity/Vol] 43 U/L High 13-35 [facility] Comment on above: Order Comment: Speci men Type: BLOOD SPECIMEN Ordering Facility: [facility] Address: [address] [place] [address] [address] [place], [place] [address] Performed By: #### C RET1 #### [facility] CLIA [id number] [address] [place], [place] [address] [place] Bilirubin [Mass/Vol] 0.5 mg/dL Normal 0.2-1.3 [facility] Comment on above: Order Comment: Speci men Type: BLOOD SPECIMEN Ordering Facility: [facility] Address: [address] [place] [address] [address], [place] [address] Performed By: #### C RET1 #### [facility] CLIA [id number] [address] [place] [id number] [place] Calcium [Mass/Vol] 9.6 mg/dL Normal 8.5-10.2 [facility] Comment on above: Order Comment: Speci men Type: BLOOD SPECIMEN [facility] Address: [address] [place], [place] [address] , [place] [address] Performed By: #### C RET1 #### [facility] CLIA [id number] [address] [place] [address] [place] Chloride [Moles/Vol] 102 mmol/L Normal 98-107 [facility] Comment on above: Order Comment: Speci men Type: BLOOD SPECIMEN [facility] Address: [address] [place], [place] [address], [place] [address] Performed By: #### C RET1 #### [facility] CLIA [id number] [address] [place] [address] [place] CO2 [Moles/Vol] 25 mmol/L Normal 22-30 [facility] Comment on above: Order Comment: Speci men Type: BLOOD SPECIMEN Ordering Facility: [facility] Address: [address] [place] [address] [address] , [place] [address] Performed By: #### C RET1 #### [facility] CLIA [id number] [address] [place] [id number] [place] Creatinine [Mass/Vol] 0.63 mg/dL Normal 0.58-0.96 [facility] Comment on above: Order Comment: Speci men Type: BLOOD SPECIMEN [facility] Address: [address] [place], [place] [address] , [place] [address] Performed By: #### C RET1 #### [facility] CLIA [id number] [address] [place] [id number] [place] Creatinine and Glomerular filtration rate.predicted panel (S/P/Bld) 103 mL/min/1.73m??? Normal >=60 [facility] Comment on above: Order Comment: Bradley castellanos Type: BLOOD SPECIMEN Ordering Facility: [facility] Address: [address] [place], [place] [address] , [place] [address] Result Comment: Arianna mated Glomerular Filtration Rate [...] actual GFR. Performed By: #### C RET1 #### [facility] CLIA [id number] [address] [place] [address] [place] Glucose [Mass/Vol] 104 mg/dL High 74-99 [facility] Comment on above: Order Comment: Bradley castellanos Type: BLOOD SPECIMEN Ordering Facility: [facility] Address: [address] [place] [address], [place] [address] Result Comment: The [place] Diabetes Association (ADA) provides guidance for cutoff [...] Standards of Medical Care in Diabetes 2016, [place] Diabetes Association. Diabetes Care. 2016.39(Suppl 1). Performed By: #### C RET1 #### [facility] CLIA [id number] [facility] [place] [id number] [place] Potassium [Moles/Vol] 5.1 mmol/L Normal 3.7-5.1 [facility] Comment on above: Order Comment: Bradley castellanos Type: BLOOD SPECIMEN Ordering Facility: [facility] Address: [address], [place] [address] Performed By: #### C RET1 #### [facility] CLIA [id number] [address] [place] [address] [place] Protein [Mass/Vol] 7.3 g/dL Normal 6.3-8.0 [facility] Comment on above: Order Comment: Bradley castellanos Type: BLOOD SPECIMEN [facility] Address: [address] [place] [address] [address] [place], [place] [id number] Performed By: #### C RET1 #### [facility] CLIA [id number] [address] [place] [address] [place] Sodium [Moles/Vol] 137 mmol/L Normal 136-144 [facility] Comment on above: Order Comment: Bradley castellanos Type: BLOOD SPECIMEN [facility] Address: [address] [place] [address] [address], [place] [address] Performed By: #### C RET1 #### [facility] CLIA [id number] [address] [place] [address] [place] Urea nitrogen [Mass/Vol] 12 mg/dL Normal 7-21 [facility] Comment on above: Order Comment: Bradley castellanos Type: BLOOD SPECIMEN [facility] Address: [address] [facility] [address], [place] [address] Performed By: #### C RET1 #### [facility] CLIA [id number] [address] [place] [address] [place] Stress Reporton 08-20-2024 Stress Report Normal [facility] CNOVon 08-19-2024 CNOV Office Visit (UCWSTR ) CASSIA HOLLAND ([id number]) 1965 F Date Time Provider Department 08/19/24 3:15 PM JACQUE ARRIOLA [facility] During your visit today, we recorded the following information about you: Temperature Pulse Respiration Blood pressure 98 degrees 81/minute 18/minute 132/82 Weight 89 kg Jacque Arriola, KENN 08/19/2024 3:56 PM Signed [facility] Subjective Cassia Holland is [...] per directed for severe allergic reaction lancets ([employer] CoatingTOUCH DELICA PLUS LANCET) 33 gauge Test blood sugar(s) 1 times daily. Dx: Type 2 DM - Controlled E11.9 Insulin: No blood sugar diagnostic ([employer] CoatingTOUCH ULTRA TEST) test strip use 1 TEST [...] and vomitin (more content not included)... Normal [facility] CNOVon 08-18-2024 CNOV Office Visit (INTMWS ) CASSIA HOLLAND ([id number]) 1965 F Date Time Provider Department 08/18/24 4:00 PM OPAL MATHEWS INTSamuelWS During your visit today, we recorded the [...] 5:56 PM Signed Reason for Visit Dig bite HPI Cassia [...] treated in September with a procedure in [place]. She has a follow-up appointment at the [...] EPINEPHrine (EPIPEN) 0.3 mg/0.3 mL auto-injector lancets ([employer] CoatingTOUCH DELICA PLUS LANCET) 33 gauge blood sugar diagnostic ([employer] CoatingTOUCH ULTRA TEST) test strip levalbuterol tartrate HFA [...] Persistent blee (more content not included)... Normal [facility] Anion gap in Serum or Plasma Ordered By: Meg Painting on 07-31-2024 Anion gap [Moles/Vol] 12 mmol/L 5-15 [facility] BUN/creatinine ratioOrdered By: Meg Painting on 07-31-2024 Urea nitrogen/Creatinine [Mass ratio] 18.0 mg/mg 10- [facility] Basic Metabolic Profile (BMP )on 07-31-2024 BUN/CRE 18.0 RATIO Normal - [facility] Comment on above: Performed By: #### L 500.2500 ####[facility] [address] [place], [address] Calcium [Mass/Vol] 9.0 mg/dL Normal 7.6-11.0 [facility] Comment on above: Performed By: #### L 500.2500 ####[facility] [address] [place], [address] Chloride [Moles/Vol] 101 mmol/L Normal 98-108 [facility] Comment on above: Performed By: #### L 500.2500 ####[facility] [address] [place], [address] CO2 [Moles/Vol] 21.6 mmol/L Normal 21.0-32.0 [facility] Comment on above: Performed By: #### L 500.2500 ####[facility] [address] [place], [address] Creatinine [Mass/Vol] 0.68 mg/dL Low 0.70-1.20 [facility] Comment on above: Performed By: #### L 500.2500 ####[facility] [address] [place], [address] GAP 12 Normal 5-15 [facility] Comment on above: Performed By: #### L 500.2500 ####[facility] [address] [place], [address] GFR/1.73 sq M.predicted among non-blacks MDRD (S/P/Bld) [Vol rate/Area] 101 mL/min/{1.73_m2} Normal >60 [facility] Comment on above: Result Comment: mL/m in/1.73m2 CKD-EPI Creatinine Equation (2020) Performed By: #### L 500.2500 ####[facility] [address] [place], [address] Glucose [Mass/Vol] 81 mg/dL Normal 70-99 [facility] Comment on above: Performed By: #### L 500.2500 ####[facility] [address] [place], [address] Potassium [Moles/Vol] 4.9 mmol/L Normal 3.3-5.1 [facility] Comment on above: Performed By: #### L 500.2500 ####[facility] [address] [place], [address] Sodium [Moles/Vol] 134 mmol/L Normal 133-145 [facility] Comment on above: Performed By: #### L 500.2500 ####[facility] [address] [place], [address] Urea nitrogen [Mass/Vol] 12 mg/dL Normal 4-19 [facility] Comment on above: Performed By: #### L 500.2500 ####[facility] [address] [place], [address] Carbon dioxide, total [Moles /volume] in Central venous bloodOrdered By: Meg Painting on 07-31-2024 CO2 [Moles/Vol] 21.6 mmol/L 21.0-32.0 [facility] Chloride assayOrdered By: Vanessa Painting on 07-31-2024 Chloride [Moles/Vol] 101 mmol/L 98-108 [facility] GFR/1.73 sq M.predicted debby g non-blacks MDRD (S/P/Bld) [Vol rate/Area]Ordered By: Meg Painting on 07-31-2024 Estimated GFR (MDRD) Non-Af Amer 101 >60 [facility] Comment on above: mL/min/1.73m2 CKD-EP I Creatinine Equation (2020) Glomerular filtration rate ( GFR) estimation/1.73 sq m using serum, plasma, or whole bOrdered By: Meg Painting on 07-31-2024 GFR/1.73 sq M.predicted among non-blacks MDRD (S/P/Bld) [Vol rate/Area] 101 mL/min/{1.73_m2} >60 [facility] Comment on above: mL/min/1.73m2 CKD-EP I Creatinine Equation (2020) Potassium (Unsp spec) [Mass/ Vol]Ordered By: Meg Painting on 07-31-2024 Potassium [Moles/Vol] 4.9 mmol/L 3.3-5.1 [facility] Potassium measurement (mass/ volume)Ordered By: Meg Painting on 07-31-2024 Potassium (Unsp spec) [Mass/Vol] 4.9 mmol/L 3.3-5.1 [facility] Serum creatinine measurement (mass/volume)Ordered By: Meg Painting on 07-31-2024 Creatinine [Mass/Vol] 0.68 mg/dL Low 0.70-1.20 [facility] Serum glucose measurement (m ass/volume)Ordered By: Meg Painting on 07-31-2024 Glucose [Mass/Vol] 81 mg/dL 70-99 [facility] Serum or plasma calcium hailee urement (mass/volume)Ordered By: Meg Painting on 07-31-2024 Calcium [Mass/Vol] 9.0 mg/dL 7.6-11.0 [facility] Serum or plasma urea nitroge n measurement (mass/volume)Ordered By: Meg Painting on 07-31-2024 Urea nitrogen [Mass/Vol] 12 mg/dL 4-19 [facility] Sodium levelOrdered By: Tao Painting on 07-31-2024 Sodium [Moles/Vol] 134 mmol/L 133-145 [facility] Chest without Contraston Chest without Contrast Normal [facility] MR/PAT.ANEon 07-25-2024 MR/PAT.ANE Normal [facility] Nasopharyngeal Cultureon NAC Normal [facility] Comment on above: Performed By: #### M 100.2500, M1.1999 ####[facility] [address] [place], [address] Gram Stainon 07-22-2024 GS Gram Stain No organisms seen Rare White Blood Cells Normal [facility] Comment on above: Performed By: #### M 100.2500, M1.1999 ####[facility] [address] [place], [address] Gram stainOrdered By: Mario lambert on 07-21-2024 Microscopic observation Gram stain Nom (Unsp spec) [facility] Nasopharyngeal cultureOrdere d By: Mario Mcdaniel on 07-21-2024 Nasopharyngeal Culture Pseudomonas aeruginosa Abnormal [facility] Anion gap in Serum or Plasma Ordered By: Alicia Manzano on 07-17-2024 Anion gap [Moles/Vol] 12 mmol/L 5-15 [facility] BUN/creatinine ratioOrdered By: Alicia Manzano on 07-17-2024 Urea nitrogen/Creatinine [Mass ratio] 18.3 mg/mg 10- [facility] Basic Metabolic Profile (BMP )on 07-17-2024 BUN/CRE 18.3 RATIO Normal - [facility] Comment on above: Performed By: #### L 500.2500 ####[facility] [address] [place], [address] Calcium [Mass/Vol] 9.0 mg/dL Normal 7.6-11.0 [facility] Comment on above: Performed By: #### L 500.2500 ####[facility] [address] [place], [address] Chloride [Moles/Vol] 94 mmol/L Low 98-108 [facility] Comment on above: Performed By: #### L 500.2500 ####[facility] [address] [place], [address] CO2 [Moles/Vol] 22.5 mmol/L Normal 21.0-32.0 [facility] Comment on above: Performed By: #### L 500.2500 ####[facility] [address] [place], [address] Creatinine [Mass/Vol] 0.65 mg/dL Low 0.70-1.20 [facility] Comment on above: Performed By: #### L 500.2500 ####[facility] [address] [place], [address] GAP 12 Normal 5-15 [facility] Comment on above: Performed By: #### L 500.2500 ####[facility] [address] [place], [address] GFR/1.73 sq M.predicted among non-blacks MDRD (S/P/Bld) [Vol rate/Area] 102 mL/min/{1.73_m2} Normal >60 [facility] Comment on above: Result Comment: mL/m in/1.73m2 CKD-EPI Creatinine Equation (2020) Performed By: #### L 500.2500 ####[facility] [address] [place], [address] Glucose [Mass/Vol] 108 mg/dL High 70-99 [facility] Comment on above: Performed By: #### L 500.2500 ####[facility] [address] [place], [address] Potassium [Moles/Vol] 4.4 mmol/L Normal 3.3-5.1 [facility] Comment on above: Performed By: #### L 500.2500 ####[facility] [address] [place], [address] Sodium [Moles/Vol] 128 mmol/L Low 133-145 [facility] Comment on above: Performed By: #### L 500.2500 ####[facility] [address] [place], [address] Urea nitrogen [Mass/Vol] 12 mg/dL Normal 4-19 [facility] Comment on above: Performed By: #### L 500.2500 ####[facility] [address] [place], [address] Carbon dioxide, total [Moles /volume] in Central venous bloodOrdered By: Alicia Manzano on 07-17-2024 CO2 [Moles/Vol] 22.5 mmol/L 21.0-32.0 [facility] Chloride assayOrdered By: Earl Manzano on 07-17-2024 Chloride [Moles/Vol] 94 mmol/L Low 98-108 [facility] GFR/1.73 sq M.predicted debby g non-blacks MDRD (S/P/Bld) [Vol rate/Area]Ordered By: Alicia Manzano on 07-17-2024 Estimated GFR (MDRD) Non-Af Amer 102 >60 [facility] Comment on above: mL/min/1.73m2 CKD-EP I Creatinine Equation (2020) Glomerular filtration rate ( GFR) estimation/1.73 sq m using serum, plasma, or whole bOrdered By: Alicia Manzano on 07-17-2024 GFR/1.73 sq M.predicted among non-blacks MDRD (S/P/Bld) [Vol rate/Area] 102 mL/min/{1.73_m2} >60 [facility] Comment on above: mL/min/1.73m2 CKD-EP I Creatinine Equation (2020) Potassium (Unsp spec) [Mass/ Vol]Ordered By: Alicia Manzano on 07-17-2024 Potassium [Moles/Vol] 4.4 mmol/L 3.3-5.1 [facility] Potassium measurement (mass/ volume)Ordered By: Alicia Manzano on 07-17-2024 Potassium (Unsp spec) [Mass/Vol] 4.4 mmol/L 3.3-5.1 [facility] Serum creatinine measurement (mass/volume)Ordered By: Alicia Manzano on 07-17-2024 Creatinine [Mass/Vol] 0.65 mg/dL Low 0.70-1.20 [facility] Serum glucose measurement (m ass/volume)Ordered By: Alicia Manzano on 07-17-2024 Glucose [Mass/Vol] 108 mg/dL High 70-99 [facility] Serum or plasma calcium hailee urement (mass/volume)Ordered By: Alicia Manzano on 07-17-2024 Calcium [Mass/Vol] 9.0 mg/dL 7.6-11.0 [facility] Serum or plasma urea nitroge n measurement (mass/volume)Ordered By: Alicia Manzano on 07-17-2024 Urea nitrogen [Mass/Vol] 12 mg/dL - [facility] Sodium levelOrdered By: Nico Manzano on 07-17-2024 Sodium [Moles/Vol] 128 mmol/L Low 133-145 [facility] Cardiology Visit Reporton Cardiology Visit Report Normal [facility] C3 SerPl-mCncon 06-25-2024 Complement C3 [Mass/Vol] 130 mg/dL Normal 86-166 [facility] Comment on above: Order Comment: Bradley castellanos Type: BLOOD SPECIMENOrdering Facility: [facility] Address: [address] [place] [address] Performed By: #### 4 498-2, 4485-9, ####[facility] [id number] [address] [place] C4 SerPl-mCncon 06-25-2024 Complement C4 [Mass/Vol] 13 mg/dL Normal 13-46 [facility] Comment on above: Order Comment: Bradley castellanos Type: BLOOD SPECIMENOrdering Facility: [facility] Address: [address] [place], [place] [address]Aleshia , [place] [address] Performed By: #### 4 498-2, 4485-9, ####[facility] [id number] [place] [address] [place] CBC W Auto Differential pane l (Bld)on 06-25-2024 Basophils (Bld) [#/Vol] 10*3/uL Normal <0.11 [facility] Comment on above: Order Comment: Speci men Type: BLOOD SPECIMENOrdering Facility: [facility] Address: [address] [place] [address], [place] [address] Performed By: #### 4 537-7, 87031-7 ####[facility] [id number] [place] [address] [place] Basophils/100 WBC (Bld) 0.3 % Normal [facility] Comment on above: Order Comment: Speci men Type: BLOOD SPECIMENOrdering Facility: [facility] Address: [address] [place] [address], [place] [address] Performed By: #### 4 537-7, 35313-9 ####[facility] [id number] [place] [address] [place] Differential cell count method Nom (Bld) Auto Normal [facility] Comment on above: Order Comment: Speci men Type: BLOOD SPECIMENOrdering Facility: [facility] Address: [address] [place] [address], [place] [address] Performed By: #### 4 537-7, 80143-3 ####[facility] [id number] [place] [address] [place] Eosinophils (Bld) [#/Vol] 0.08 10*3/uL Normal <0.46 [facility] Comment on above: Order Comment: Speci men Type: BLOOD SPECIMENOrdering Facility: [facility] Address: [address] [place] [address], [place] [address] Performed By: #### 4 537-7, 73548-4 ####[facility] [id number] [place] [address] [place] Eosinophils/100 WBC (Bld) 2.3 % Normal [facility] Comment on above: Order Comment: Speci men Type: BLOOD SPECIMENOrdering Facility: [facility] Address: [address] [place] [address], [place] [address] Performed By: #### 4 537-7, 91652-9 ####[facility] [id number] [place] [id number] [place] Erythrocyte distribution width (RBC) [Ratio] 15.5 % High 11.5-15.0 [facility] Comment on above: Order Comment: Speci men Type: BLOOD SPECIMENOrdering Facility: [facility] Address: [address] [place], [place] [address] [address] Performed By: #### 4 537-7, 97855-5 ####[facility] [id number] [place] [address] [place] Hematocrit (Bld) [Volume fraction] 32.3 % Low 36.0-46.0 [facility] Comment on above: Order Comment: Speci emanuel Type: BLOOD SPECIMENOrdering Facility: [facility] Address: [address] [place], [place] [address] [address] Performed By: #### 4 537-7, 97972-1 ####[facility]IA [id number] [place] [id number] [place] Hemoglobin (Bld) [Mass/Vol] 10.0 g/dL Low 11.5-15.5 [facility] Comment on above: Order Comment: Speci men Type: BLOOD SPECIMENOrdering Facility: [facility] Address: [address] [place], [place] [address]MARIA GUADALUPE [place] [address] Performed By: #### 4 537-7, 57265-6 ####[facility]IA [id number] [place] [id number] [place] Immature granulocytes (Bld) [#/Vol] 10*3/uL Normal <0.10 [facility] Comment on above: Order Comment: Speci men Type: BLOOD SPECIMENOrdering Facility: [facility] Address: [address] [place], [place] [address] [address] Performed By: #### 4 537-7, 17220-4 ####[facility] [id number] [place] [id number] [place] Immature granulocytes/100 WBC (Bld) 0.3 % Normal [facility] Comment on above: Order Comment: Speci men Type: BLOOD SPECIMENOrdering Facility: [facility] Address: [address] [place], [place] [address] [address] Performed By: #### 4 537-7, 73865-6 ####[facility] [id number] [place] [address] [place] Lymphocytes (Bld) [#/Vol] 0.98 10*3/uL Low 1.00-4.00 [facility] Comment on above: Order Comment: Speci men Type: BLOOD SPECIMENOrdering Facility: [facility] Address: [address] [place], [place] [address]MAR[place] [address] Performed By: #### 4 537-7, 45858-1 ####[facility]IA [id number] [address] [place] Lymphocytes/100 WBC (Bld) 28.7 % Normal [facility] Comment on above: Order Comment: Speci men Type: BLOOD SPECIMENOrdering Facility: [facility] Address: [address] [place] [address] CARLY MILLER, [place] [address] Performed By: #### 4 537-7, 93083-6 ####[facility]IA [id number] [place] [id number] [place] MCH (RBC) [Entitic mass] 27.4 pg Normal 26.0-34.0 [facility] Comment on above: Order Comment: Speci men Type: BLOOD SPECIMENOrdering Facility: [facility] Address: [address] [place], [place] [address]MAR[place] [address] Performed By: #### 4 537-7, 83348-9 ####[facility] [id number] [address] [address] [place] MCHC (RBC) [Mass/Vol] 31.0 g/dL Normal 30.5-36.0 [facility] Comment on above: Order Comment: Speci men Type: BLOOD SPECIMENOrdering Facility: [facility] Address: [address] [place] [address], [place] [address] Performed By: #### 4 537-7, 85913-4 ####[facility] [id number] [place] [address] [place] MCV (RBC) [Entitic vol] 88.5 fL Normal 80.0-100.0 [facility] Comment on above: Order Comment: Speci men Type: BLOOD SPECIMENOrdering Facility: [facility] Address: [address] [place] [address], [place] [address] Performed By: #### 4 537-7, 64305-7 ####[facility]IA [id number] [place] [address] [place] Monocytes (Bld) [#/Vol] 0.37 10*3/uL Normal <0.87 [facility] Comment on above: Order Comment: Speci men Type: BLOOD SPECIMENOrdering Facility: [facility] Address: [address] [place] [address], [place] [address] Performed By: #### 4 537-7, 55435-6 ####[facility]IA [id number] [place] [id number] [place] Monocytes/100 WBC (Bld) 10.9 % Normal [facility] Comment on above: Order Comment: Speci men Type: BLOOD SPECIMENOrdering Facility: [facility] Address: [address] [place] [address] Performed By: #### 4 537-7, 13047-6 ####[facility] [id number] [place] [address] [place] Neutrophils (Bld) [#/Vol] 1.96 10*3/uL Normal 1.45-7.50 [facility] Comment on above: Order Comment: Bradley castellanos Type: BLOOD SPECIMENOrdering Facility: [facility] Address: [address] [place] [address] Performed By: #### 4 537-7, 18083-3 ####[facility] [id number] [place] [address] [place] Neutrophils/100 WBC (Bld) 57.5 % Normal [facility] Comment on above: Order Comment: Bradley castellanos Type: BLOOD SPECIMENOrdering Facility: [facility] Address: [address] [place] [address] Performed By: #### 4 537-7, 13813-5 ####[facility] [id number] [place] [address] [place] Nucleated RBC (Bld) [#/Vol] 10*3/uL Normal <0.01 [facility] Comment on above: Order Comment: Bradley castellanos Type: BLOOD SPECIMENOrdering Facility: [facility] Address: [address] [place] [address] Performed By: #### 4 537-7, 52635-1 ####[facility] [id number] [place] [address] [place] Nucleated RBC/100 WBC (Bld) [Ratio] 0.0 /100 WBC Normal [facility] Comment on above: Order Comment: Bradley castellanos Type: BLOOD SPECIMENOrdering Facility: [facility] Address: [address] [place] [address] Performed By: #### 4 537-7, 23612-4 ####[facility] [id number] [address] [id number] [address] [place] Platelet mean volume (Bld) [Entitic vol] 10.9 fL Normal 9.0-12.7 [facility] Comment on above: Order Comment: Speci men Type: BLOOD SPECIMENOrdering Facility: [facility] Address: [address] [place] [address] Performed By: #### 4 537-7, 40548-7 ####[facility] [id number] [place] [id number] [place] Platelets (Bld) [#/Vol] 165 10*3/uL Normal 150-400 [facility] Comment on above: Order Comment: Speci men Type: BLOOD SPECIMENOrdering Facility: [facility] Address: [address] [place] [address] Performed By: #### 4 537-7, 71295-3 ####[facility] [id number] [place] [id number] [place] RBC (Bld) [#/Vol] 3.65 10*6/uL Low 3.90-5.20 [facility] Comment on above: Order Comment: Speci men Type: BLOOD SPECIMENOrdering Facility: [facility] Address: [address] [place] [address] Performed By: #### 4 537-7, 42436-5 ####[facility]IA [id number] [place] [id number] [place] WBC (Bld) [#/Vol] 3.41 10*3/uL Low 3.70-11.00 [facility] Comment on above: Order Comment: Speci men Type: BLOOD SPECIMENOrdering Facility: [facility] Address: [address] [place] [address] Performed By: #### 4 537-7, 29116-4 ####[facility] [id number] [place] [id number] [place] CREATININE BLDon 06-25-2024 Creatinine [Mass/Vol] 0.67 mg/dL Normal 0.58-0.96 [facility] Comment on above: Order Comment: Bradley castellanos Type: BLOOD SPECIMEN [facility] Address: [address] [place] [address] ADINAMARIA GUADALUPE [place], [place] [address] Performed By: #### C RET1 #### [facility] CLIA [id number] [address] [place] [address] [place] Creatinine and Glomerular filtration rate.predicted panel (S/P/Bld) 101 mL/min/1.73m??? Normal >=60 [facility] Comment on above: Order Comment: Bradley castellanos Type: BLOOD SPECIMEN [facility] Address: [address] [place] [address] ADINAMARIA GUADALUPE MILLER, [place] [address] Result Comment: Arianna mated Glomerular Filtration Rate [...] actual GFR. Performed By: #### C RET1 #### [facility] CLIA [id number] [address] [place] [address] [place] CRP SerPl-mCncon 06-25-2024 CRP [Mass/Vol] 0.5 mg/dL Normal <0.9 [facility] Comment on above: Order Comment: Bradley castellanos Type: BLOOD SPECIMENOrdering Facility: [facility] Address: [address] [place] [address] ADINAMARIA GUADALUPE MILLER, [place] [address] Performed By: #### 4 498-2, 4485-9, 1987-5, 99107-0 ####[facility] [id number] [place] [address] [place] DNA ANTIBODY DS BLDon 2024 DNA ANTIBODY 101 IU/mL Normal <=200 [facility] Comment on above: Order Comment: Bradley castellanos Type: BLOOD SPECIMENOrdering Facility: [facility] Address: [address] [place] [address] Result Comment: Nega tive: <200 IU/mL Equivocal: 201-300 IU/mL Moderate Positive: 301-800 IU/mL Strong Positive: >801 IU/mL Performed By: #### D NAAB ####[facility] [id number] [address] STATES OF [facility] DNA ANTIBODY QUALITATIVE INTERPRETATION Negative Normal Negative [facility] Comment on above: Order Comment: Bradley castellanos Type: BLOOD SPECIMENOrdering Facility: [facility] Address: [address] [place] [address] Performed By: #### D NAAB ####[facility] [id number] [place] [address] [place] ESR Westergren method (Bld) [Velocity]on 06-25-2024 ESR (Bld) [Velocity] 20 mm/h Normal 0-20 [facility] Comment on above: Order Comment: Bradley castellanos Type: BLOOD SPECIMENOrdering Facility: [facility] Address: [address] [place] [address] Performed By: #### 4 537-7, 86994-8 ####[facility] [id number] [place] [address] [place] Hepatic function 2000 panelo n 06-25-2024 Albumin [Mass/Vol] 4.1 g/dL Normal 3.9-4.9 [facility] Comment on above: Order Comment: Bradley castellanos Type: BLOOD SPECIMENOrdering Facility: [facility] Address: [address] [place] [address] Performed By: #### 4 498-2, 4485-9, 1988-5, 19634-8 ####[facility] [id number] [place] [address] [place] ALP [Catalytic activity/Vol] 110 U/L Normal 34-123 [facility] Comment on above: Order Comment: Speci men Type: BLOOD SPECIMENOrdering Facility: [facility] Address: [address] [place] [address] Performed By: #### 4 498-2, 44859, 1987-09, ####[facility] [id number] [place] [address] [place] ALT [Catalytic activity/Vol] 37 U/L Normal 7-38 [facility] Comment on above: Order Comment: Speci men Type: BLOOD SPECIMENOrdering Facility: [facility] Address: [address] [place] [address] Performed By: #### 4 498-2, 44809-12, 1987-09, ####[facility] [id number] [place] [address] [place] AST [Catalytic activity/Vol] 42 U/L High 13-35 [facility] Comment on above: Order Comment: Speci men Type: BLOOD SPECIMENOrdering Facility: [facility] Address: [address] [place] [address] Performed By: #### 4 498-2, 44809-12, 1987-09, ####[facility] [id number] [place] [address] [place] Bilirubin [Mass/Vol] 0.2 mg/dL Normal 0.2-1.3 [facility] Comment on above: Order Comment: Speci men Type: BLOOD SPECIMENOrdering Facility: [facility] Address: [address] [place] [address], [place] [address] Performed By: #### 4 498-2, 4489, 1987-09, ####[facility] [id number] [place] [id number] [place] Bilirubin.conjugated [Mass/Vol] 0.1 mg/dL Normal <0.3 [facility] Comment on above: Order Comment: Speci men Type: BLOOD SPECIMENOrdering Facility: [facility] Address: [address] [place], [place] [address]MARIA GUADALUPE , [place] [address] Performed By: #### 4 498-2, 4485-9, ####[facility] [id number] [place] [id number] [place] Protein [Mass/Vol] 7.0 g/dL Normal 6.3-8.0 [facility] Comment on above: Order Comment: Speci men Type: BLOOD SPECIMENOrdering Facility: [facility] Address: [address] [place], [place] [address] [address] Performed By: #### 4 498-2, 4489, ####[facility] [id number] [place] [id number] [place] Prot/Creat Uron 06-25-2024 Protein/Creatinine (U) [Mass ratio] 0.22 mg/mg High <0.15 [facility] Comment on above: Order Comment: Speci men Type: BLOOD SPECIMEN Ordering Facility: [facility] Address: [address] [place], [place] [address]A[place]ia , [place] [address] Result Comment: Adul t Proteinuria Categories: <0.15 mg/mg is considered normal to mildly increased 0.15 - 0.50 mg/mg is considered moderately increased >0.50 mg/mg is considered severely increased KDIGO. (2013). KDIGO 2012 Clinical Practice Guideline for the Evaluation and Management of Chronic Kidney Disease. Official Journal of the International Society of Nephrology, 3(1), 1-150. Performed By: #### C RET1 #### [facility] CLIA [id number] [address] [place] [id number] [place] Protein/Creatinine (U) [Mass ratio]on 06-25-2024 Creatinine (U) [Mass/Vol] 44.9 mg/dL Normal 20.0-300.0 [facility] Comment on above: Order Comment: Speci men Type: BLOOD SPECIMEN [facility] Address: [address] [place] [address] Performed By: #### C RET1 #### [facility] CLIA [id number] [address] [place] [address] [place] Protein (U) [Mass/Vol] 10 mg/dL Normal 0-20 [facility] Comment on above: Order Comment: Speci men Type: BLOOD SPECIMEN [facility] Address: [address] [place] [address] Performed By: #### C RET1 #### [facility] CLIA [id number] [address] [place] [address] [place] Urinalysis complete panel (U )on 06-25-2024 BACTERIA UL 2977.2 uL High Negative [facility] Comment on above: Order Comment: Speci men Type: BLOOD SPECIMEN [facility] Address: [address] [place] [address] Performed By: #### C RET1 #### [facility] CLIA [id number] [address] [place] [address] [place] Bilirubin Ql (U) Negative Normal Negative [facility] Comment on above: Order Comment: Speci men Type: BLOOD SPECIMEN [facility] Address: [address] [place] [address] Performed By: #### C RET1 #### [facility] CLIA [id number] [address] [place] [address] [place] Clarity (Unsp spec) Cloudy Abnormal Clear [facility] Comment on above: Order Comment: Speci men Type: BLOOD SPECIMEN [facility] Address: [address] [place], [place] [address]SHRUTHIAleshia , [place] [address] Performed By: #### C RET1 #### [facility] CLIA [id number] [address] STATES OF [facility] Color (U) Yellow Normal Yellow [facility] Comment on above: Order Comment: Speci men Type: BLOOD SPECIMEN [facility] Address: [address] [place], [place] [address] [address] Performed By: #### C RET1 #### [facility] CLIA [id number] [address] [place] Epithelial cells LM.HPF (Urine sed) [#/Area] None Seen Normal [facility] Comment on above: Order Comment: Speci men Type: BLOOD SPECIMEN [facility]ing [facility]: [facility] Address: [address] [place], [place] [address] [address] Performed By: #### C RET1 #### [facility] CLIA [id number] [address] [place] Glucose Test strip (U) [Mass/Vol] Negative Normal Negative [facility] Comment on above: Order Comment: Speci men Type: BLOOD SPECIMEN [facility] Address: [address] [place], [place] [address] [address] Performed By: #### C RET1 #### [facility] CLIA [id number] [address] [place] Hemoglobin Ql (U) Negative Normal Negative [facility] Comment on above: Order Comment: Speci men Type: BLOOD SPECIMEN [facility]ing [facility]: [facility] Address: [address] [place], [place] [address] [address] Performed By: #### C RET1 #### [facility] CLIA [id number] [address] [place] [address] [place] Hyaline casts (Urine sed) [#/Area] 0 /[LPF] Normal 0 /LPF [facility] Comment on above: Order Comment: Speci men Type: BLOOD SPECIMEN Ordering Facility: [facility] Address: [address] [place] [address] CARLY , [place] [address] Performed By: #### C RET1 #### [facility] CLIA [id number] [address] [place] [address] [place] Ketones Ql (U) Negative Normal Negative [facility] Comment on above: Order Comment: Speci men Type: BLOOD SPECIMEN [facility] Address: [address] [place] [address] Performed By: #### C RET1 #### [facility] CLIA [id number] [address] [place] [address] [place] Leukocyte esterase Test strip Ql (U) 2+ Abnormal Negative [facility] Comment on above: Order Comment: Speci men Type: BLOOD SPECIMEN [facility] Address: [address] [place], [place] [address]A[place]ia , [place] [address] Performed By: #### C RET1 #### [facility] CLIA [id number] [address] [place] [address] [place] Nitrite Ql (U) Negative Normal Negative [facility] Comment on above: Order Comment: Speci men Type: BLOOD SPECIMEN [facility] Address: [address] [place] [address] JUSTINAleshia , [place] [address] Performed By: #### C RET1 #### [facility] CLIA [id number] [address] [place] [address] [place] pH (U) 7.0 [pH] Normal <8.5 [facility] Comment on above: Order Comment: Speci men Type: BLOOD SPECIMEN [facility] Address: [address] [place], [place] [address]lesh[place] [id number] Performed By: #### C RET1 #### [facility] CLIA [id number] [address] [place] [address] [place] Protein (U) [Mass/Vol] Negative Normal Negative [facility] Comment on above: Order Comment: Speci men Type: BLOOD SPECIMEN [facility] Address: [address] [place] [address] Performed By: #### C RET1 #### [facility] CLIA [id number] [address] [place] [address] [place] RBC LM.HPF (Urine sed) [#/Area] 0-2 /HPF Normal 0-2 /HPF [facility] Comment on above: Order Comment: Speci men Type: BLOOD SPECIMEN [facility]: [facility] Address: [address] [place] [address] Performed By: #### C RET1 #### [facility] IA [id number] [address] [place] [address] [place] Specific gravity (U) [Rel density] 1.012 Normal 1.005-1.03 0 [facility] Comment on above: Order Comment: Speci men Type: BLOOD SPECIMEN [facility]ing Facility: [facility] Address: [address] [place] [address] Performed By: #### C RET1 #### [facility] IA [id number] [address] [place] [address] [place] Urobilinogen Ql (U) 0.2 EU/dL Normal 0.2-1.0 EU/dL [facility] Comment on above: Order Comment: Speci men Type: BLOOD SPECIMEN [facility] Address: [address] [place] [address] Performed By: #### C RET1 #### [facility] IA [id number] [address] [place] [address] [place] WBC LM.HPF (Urine sed) [#/Area] /[HPF] Abnormal 0-5 /HPF [facility] Comment on above: Order Comment: Speci men Type: BLOOD SPECIMEN Ordering Facility: [facility] Address: [address] [place] [address] CARLY MILLER, [place] [id number] Performed By: #### C RET1 #### [facility] CLIA [id number] [address] [place] [address] [facility] Calprotectin, Stoolon [address] 102 ug/g Normal 0-120 [facility] Comment on above: Result Comment: Conc entration Interpretation Follow-Up< 5 - 50 ug/g Normal None>50 -120 ug/g Borderline Re-evaluate in 4-6 weeks >120 ug/g Abnormal Repeat as clinically indicatedPerformed at: [employer] [id number] Director: Brigido Mtz MD, Phone: [phone] Performed By: #### M 100.637, L7000.0750, M600.5000, M7400.3302, M100.0605, L7000.0700 ####[facility] [address] [place], [address] L7000.0750on 06-21-2024 P ELASTASE,FECA 669 Normal >200 [facility] Comment on above: Result Comment: Resu lt Units: ug Elast./g Severe Pancreatic Insufficiency: <100 Moderate Pancreatic Insufficiency: 100 - 200 Normal: >200Performed at: [facility] [address] [place], [place] [id number] Director: Brigido Mtz MD, Phone: [phone] Performed By: #### M 100.637, L7000.0750, M600.5000, M7400.3302, M100.0605, L7000.0700 ####[facility] [address] [place], [address] M7400.3302on 06-20-2024 M7400.3302 Normal [facility] Comment on above: Performed By: #### M 100.637, L7000.0750, M600.5000, M7400.3302, M100.0605, L7000.0700 ####[facility] [address] [place], [address] [employer] 8623on OP Normal [facility] Comment on above: Performed By: #### M 100.637, L7000.0750, M600.5000, M7400.3302, M100.0605, L7000.0700 ####[facility] [address] [place], [address] 01-DF-Zxyniki DOrdered By: Magda Pierce on 06-18-2024 Vitamin D 25-Hydroxy 29.9 ng/mL [facility] Comment on above: Vitamin D 25(OH) Sta tus Range Deficiency <20 ng/mL (50nmol/L) Insufficiency 20 - 30 ng/mL (50 - 75 nmol/L) Sufficiency 30 - 100 ng/mL (75 - 250 nmol/L) Toxicity >100 ng/mL (>250 nmol/L) Absolute lymphocyte countOrd ered By: Kaya Pierce on 06-18-2024 Lymphocytes Auto (Unsp spec) [#/Vol] 0.82 10*3/uL Low 0.83-4.51 [facility] Absolute neutrophil countOrd ered By: Kaya Pierce on 06-18-2024 Neutrophils (Bld) [#/Vol] 1.8 10*3/uL Low 2.0-7.7 [facility] Albumin to globulin ratioOrd ered By: Kaya Pierce on 06-18-2024 Albumin/Globulin [Mass ratio] 1.0 {ratio} 0.9-2.4 [facility] Automated lymphocyte count a s percentage of total leukocytesOrdered By: Kaya Pierce on 06-18-2024 Lymphocytes/100 WBC Auto (Unsp spec) 26.1 % 19-41 [facility] Basophil percentageOrdered B y: Kaya Pierce on 06-18-2024 Basophils/100 WBC (Bld) 0.6 % 0-1 [facility] Bilirubin directOrdered By: Maryjane King on 06-18-2024 Bilirubin.direct [Mass/Vol] 0.15 mg/dL 0.00-0.30 [facility] Bilirubin, totalOrdered By: Maryjane King on 06-18-2024 Bilirubin [Mass/Vol] 0.30 mg/dL 0.20-1.00 [facility] Comment on above: For patients on eltr ombopag therapy, use of Dimension [place] TBIL is not recommended. Blood urea nitrogen (BUN)/cr eatinine ratioOrdered By: Kaya Pierce on 06-18-2024 Urea nitrogen/Creatinine [Mass ratio] 12.6 mg/mg 10-20 [facility] CBC W/Diff, Automatedon 06-07 Absolute Lymph 0.82 X10 3/uL Low 0.83-4.51 [facility] Comment on above: Performed By: #### L 506.1000, L100.0100, L500.4050, L503.6150 ####[facility] [address] [place], [address] Absolute Neut 1.8 X10 3/uL Low 2.0-7.7 [facility] Comment on above: Performed By: #### L 506.1000, L100.0100, L500.4050, L503.6150 ####[facility] [address] [place], [address] Basophils/100 WBC (Bld) 0.6 % Normal 0-1 [facility] Comment on above: Performed By: #### L 506.1000, L100.0100, L500.4050, L503.6150 ####[facility] [address] [place], [address] Eosinophils/100 WBC (Bld) 5.4 % High 0-5 [facility] Comment on above: Performed By: #### L 506.1000, L100.0100, L500.4050, L503.6150 ####[facility] [address] [place], [address] Erythrocyte distribution width (RBC) [Ratio] 15.2 % High 11.6-14.6 [facility] Comment on above: Performed By: #### L 506.1000, L100.0100, L500.4050, L503.6150 ####[facility] [address] [place], [address] Hematocrit (Bld) [Volume fraction] 33.2 % Low 37-47 [facility] Comment on above: Performed By: #### L 506.1000, L100.0100, L500.4050, L503.6150 ####[facility] [address] [place], [address] Hemoglobin (Bld) [Mass/Vol] 10.2 g/dL Low 12.0-15.0 [facility] Comment on above: Performed By: #### L 506.1000, L100.0100, L500.4050, L503.6150 ####[facility] [address] [place], [address] IG% 0.300 Normal 0.0-0.9 [facility] Comment on above: Result Comment: IG% - Immature Granulocytes (promyelocytes, myelocytes andmetamyelocytes) > 1% indicates that a LEFT SHIFT is Present. Performed By: #### L 506.1000, L100.0100, L500.4050, L503.6150 ####[facility] [address] [place], [address] Lymphocytes/100 WBC (Bld) 26.1 % Normal 19-41 [facility] Comment on above: Performed By: #### L 506.1000, L100.0100, L500.4050, L503.6150 ####[facility] [address] [place], [address] MCH (RBC) [Entitic mass] 27.0 pg Normal 27.0-32.0 [facility] Comment on above: Performed By: #### L 506.1000, L100.0100, L500.4050, L503.6150 ####[facility] [address] [place], [address] MCHC (RBC) [Mass/Vol] 30.7 g/dL Low 32-36 [facility] Comment on above: Performed By: #### L 506.1000, L100.0100, L500.4050, L503.6150 ####[facility] [address] [place], [address] MCV (RBC) [Entitic vol] 87.8 fL Normal 81-99 [facility] Comment on above: Performed By: #### L 506.1000, L100.0100, L500.4050, L503.6150 ####[facility] [address] [place], [address] Monocytes/100 WBC (Bld) 11.5 % High 0-10 [facility] Comment on above: Performed By: #### L 506.1000, L100.0100, L500.4050, L503.6150 ####[facility] [address] [place], [address] Neutrophils/100 WBC (Bld) 56.1 % Normal 47-70 [facility] Comment on above: Performed By: #### L 506.1000, L100.0100, L500.4050, L503.6150 ####[facility] [address] [place], [address] Nucleated RBC (Bld) [#/Vol] 0 10*3/uL Normal 0-5 [facility] Comment on above: Performed By: #### L 506.1000, L100.0100, L500.4050, L503.6150 ####[facility] [address] [place], [address] Platelet mean volume (Bld) [Entitic vol] 11.0 fL Normal 6.2-12.0 [facility] Comment on above: Performed By: #### L 506.1000, L100.0100, L500.4050, L503.6150 ####[facility] [address] [place], [address] Platelets (Bld) [#/Vol] 174 10*3/uL Normal 150-450 [facility] Comment on above: Performed By: #### L 506.1000, L100.0100, L500.4050, L503.6150 ####[facility] [address] [place], [address] RBC (Bld) [#/Vol] 3.78 10*6/uL Low 4.2-5.4 [facility] Comment on above: Performed By: #### L 506.1000, L100.0100, L500.4050, L503.6150 ####[facility] [address] [place], [address] RDW SD 48.4 fl High 35.1-43.9 [facility] Comment on above: Performed By: #### L 506.1000, L100.0100, L500.4050, L503.6150 ####[facility] [address] [place], [address] WBC (Bld) [#/Vol] 3.1 10*3/uL Low 4.4-11.0 [facility] Comment on above: Performed By: #### L 506.1000, L100.0100, L500.4050, L503.6150 ####[facility] [address] [place], [address] Carbon dioxide measurementOr dered By: Kaya Pierce on 06-18-2024 CO2 [Moles/Vol] 26.0 mmol/L 21.0-32.0 [facility] Chloride measurementOrdered By: Kaya Pierce on 06-18-2024 Chloride [Moles/Vol] 101 mmol/L 98-107 [facility] Comprehensive Metabolic Prof ilon 06-18-2024 Albumin [Mass/Vol] 3.7 g/dL Normal 3.2-5.0 [facility] Comment on above: Performed By: #### L 506.1000, L100.0100, L500.4050, L503.6150 ####[facility] [address] [place], [address] Albumin/Globulin [Mass ratio] 1.0 {ratio} Normal 0.9-2.4 [facility] Comment on above: Performed By: #### L 506.1000, L100.0100, L500.4050, L503.6150 ####[facility] [address] [place], [address] ALK P 113 U/L Normal 45-117 [facility] Comment on above: Performed By: #### L 506.1000, L100.0100, L500.4050, L503.6150 ####[facility] [address] [place], [address] ALT [Catalytic activity/Vol] 47 U/L Normal 13-56 [facility] Comment on above: Performed By: #### L 506.1000, L100.0100, L500.4050, L503.6150 ####[facility] [address] [place], [address] AST [Catalytic activity/Vol] 40 U/L High 15-37 [facility] Comment on above: Performed By: #### L 506.1000, L100.0100, L500.4050, L503.6150 ####[facility] [address] [place], [address] Bilirubin [Mass/Vol] 0.30 mg/dL Normal 0.20-1.00 [facility] Comment on above: Result Comment: For patients on eltrombopag therapy, use of Dimension [place] TBIL is not recommended. Performed By: #### L 506.1000, L100.0100, L500.4050, L503.6150 ####[facility] [address] [place], [address] BUN/CRE 12.6 RATIO Normal 10-20 [facility] Comment on above: Performed By: #### L 506.1000, L100.0100, L500.4050, L503.6150 ####[facility] [address] [place], [address] CA,Total 8.7 mg/dL Normal 8.5-10.1 [facility] Comment on above: Performed By: #### L 506.1000, L100.0100, L500.4050, L503.6150 ####[facility] [address] [place], [address] Chloride [Moles/Vol] 101 mmol/L Normal 98-107 [facility] Comment on above: Performed By: #### L 506.1000, L100.0100, L500.4050, L503.6150 ####[facility] [address] [place], [address] CO2 [Moles/Vol] 26.0 mmol/L Normal 21.0-32.0 [facility] Comment on above: Performed By: #### L 506.1000, L100.0100, L500.4050, L503.6150 ####[facility] [address] [place], [address] Creatinine [Mass/Vol] 0.64 mg/dL Normal 0.55-1.02 [facility] Comment on above: Result Comment: The validity of the calculated GFR GFRAA in patients over70 years has not been determined. Clinical correlation isessential. Performed By: #### L 506.1000, L100.0100, L500.4050, L503.6150 ####[facility] [address] [place], [address] EST GFR - AA 123 mL/min Normal >60 [facility] Comment on above: Result Comment: Afri can Norwegian GFR Calc Performed By: #### L 506.1000, L100.0100, L500.4050, L503.6150 ####[facility] [address] [place], [address] GAP 6 Normal 5-15 [facility] Comment on above: Performed By: #### L 506.1000, L100.0100, L500.4050, L503.6150 ####[facility] [address] [place], [address] GFR/1.73 sq M.predicted among non-blacks MDRD (S/P/Bld) [Vol rate/Area] 102 mL/min/{1.73_m2} Normal >60 [facility] Comment on above: Result Comment: Non- GFR Calc Performed By: #### L 506.1000, L100.0100, L500.4050, L503.6150 ####[facility] [address] [place], [address] Globulin (S) [Mass/Vol] 3.7 g/dL Normal 2.2-4.2 [facility] Comment on above: Performed By: #### L 506.1000, L100.0100, L500.4050, L503.6150 ####[facility] [address] [place], [address] Glucose [Mass/Vol] 114 mg/dL High 74-106 [facility] Comment on above: Result Comment: Fast ing Glucose result from 100 to 125 mg/dLsuggests IMPAIRED HOMEOSTASIS per A.D.A. criteria. Performed By: #### L 506.1000, L100.0100, L500.4050, L503.6150 ####[facility] [address] [place], [address] Potassium [Moles/Vol] 4.5 mmol/L Normal 3.5-5.1 [facility] Comment on above: Performed By: #### L 506.1000, L100.0100, L500.4050, L503.6150 ####[facility] [address] [place], [address] Sodium [Moles/Vol] 132 mmol/L Low 136-145 [facility] Comment on above: Performed By: #### L 506.1000, L100.0100, L500.4050, L503.6150 ####[facility] [address] [place], [address] T PROT 7.4 g/dL Normal 6.4-8.2 [facility] Comment on above: Performed By: #### L 506.1000, L100.0100, L500.4050, L503.6150 ####[facility] [address] [place], [address] Urea nitrogen [Mass/Vol] 8 mg/dL Normal 7-18 [facility] Comment on above: Performed By: #### L 506.1000, L100.0100, L500.4050, L503.6150 ####[facility] [address] [place], [address] Eosinophil percentageOrdered By: Kaya Pierce on 06-18-2024 Eosinophils/100 WBC (Bld) 5.4 % High 0-5 [facility] Erythrocyte distribution wid th ratioOrdered By: Kaya Pierce on 06-18-2024 Erythrocyte distribution width (RBC) [Ratio] 15.2 % High 11.6-14.6 [facility] Erythrocyte distribution wid th standard deviationOrdered By: Kaya Pierce on 06-18-2024 Erythrocyte distribution width (RBC) [Entitic vol] 48.4 fL High 35.1-43.9 [facility] Erythrocyte distribution width (RBC) [Ratio] 48.4 fl High 35.1-43.9 [facility] Estimated glomerular filtrat ion rate (GFR) AmericanOrdered By: Kaya Pierce on 06-18-2024 Estimated GFR (MDRD) Amer 123 mL/min >60 [facility] Comment on above: GFR Calc Gastroenterology Visit Repor ton 06-18-2024 Gastroenterology Visit Report Normal [facility] Glomerular filtration rate ( GFR) estimationOrdered By: Kaya Pierce on 06-18-2024 Estimated GFR (MDRD) Non-Af Amer 102 mL/min >60 [facility] Comment on above: Non- GFR Calc GFR/1.73 sq M.predicted among non-blacks MDRD (S/P/Bld) [Vol rate/Area] 102 mL/min/{1.73_m2} >60 [facility] Comment on above: Non- GFR Calc Glucose measurementOrdered B y: Kaya Pierce on 06-18-2024 Glucose [Mass/Vol] 114 mg/dL High 74-106 [facility] Comment on above: Fasting Glucose resu lt from 100 to 125 mg/dL suggests IMPAIRED HOMEOSTASIS per A.D.A. criteria. Hematocrit Auto (Bld) [Volum e fraction]Ordered By: Kaya Pierce on 06-18-2024 Hematocrit (Bld) [Volume fraction] 33.2 % Low 37-47 [facility] Hemoglobin measurementOrdere d By: Kaya Pierce on 06-18-2024 Hemoglobin (Bld) [Mass/Vol] 10.2 g/dL Low 12.0-15.0 [facility] High density lipoprotein (HD L) measurementOrdered By: Maryjane King on 06-18-2024 Cholesterol in HDL [Mass/Vol] 58 mg/dL >40 [facility] Comment on above: The drugs N-Acetylcy steine and Metamizole may falsely depress this assay. Reference Range HDL <40 mg/dL Low HDL Cholesterol HDL >or= 60 mg/dL High HDL Cholesterol Immature granulocytes/100 WB C Auto (Bld)Ordered By: Kaya Pierce on 06-18-2024 Immature granulocytes/100 WBC (Bld) 0.300 % 0.0-0.9 [facility] Comment on above: IG% - Immature Granu locytes (promyelocytes, myelocytes and metamyelocytes) > 1% indicates that a LEFT SHIFT is Present. Ironon 06-18-2024 Iron [Mass/Vol] 19 ug/dL Low 50-170 [facility] Comment on above: Performed By: #### L 506.1000, L100.0100, L500.4050, L503.6150 ####[facility] [address] [place], [address] Iron (Unsp spec) [Mass/Mass] Ordered By: Kaya Pierce on 06-18-2024 Iron [Mass/Vol] 19 ug/dL Low 50-170 [facility] Iron measurement (mass/mass) Ordered By: Kaya Pierce on 06-18-2024 Iron (Unsp spec) [Mass/Mass] 19 ug/dL Low 50-170 [facility] Laboratory - Chemistry and C hemistry - challengeOrdered By: Maryjane King on 06-18-2024 AST [Catalytic activity/Vol] 40 U/L High 15-37 [facility] Lipid Profileon 06-18-2024 Cholesterol [Mass/Vol] 130 mg/dL Normal 200 [facility] Comment on above: Result Comment: <200 mg/dL Desirable 200-240 mg/dL Borderline >240 mg/dL High Risk Performed By: #### L 500.3400, L500.4100 ####[facility] [address] [place], [address] Cholesterol in HDL [Mass/Vol] 58 mg/dL Normal [facility] Comment on above: Result Comment: The drugs N-Acetylcysteine and Metamizole may falselydepress this assay. Reference Range HDL <40 mg/dL Low HDL Cholesterol HDL >or= 60 mg/dL High HDL Cholesterol Performed By: #### L 500.3400, L500.4100 ####[facility] [address] [place], [address] Cholesterol in LDL [Mass/Vol] 61 mg/dL Normal 0-130 [facility] Comment on above: Performed By: #### L 500.3400, L500.4100 ####[facility] [address] [place], [address] Cholesterol in VLDL [Mass/Vol] 11 mg/dL Normal 5-40 [facility] Comment on above: Performed By: #### L 500.3400, L500.4100 ####[facility] [address] [place], [address] Triglyceride [Mass/Vol] 54 mg/dL Normal [facility] Comment on above: Result Comment: The drugs N-Acetylcysteine and Metamizole may falselydepress this assay.Serum Triglycerides Reference Interval Normal <150 mg/dL Borderline high 150 - 199 mg/dL High 200 - 499 mg/dL Very High > or = 500 mg/dL Performed By: #### L 500.3400, L500.4100 ####[facility] [address] [place], [address] Liver Profileon 06-18-2024 Albumin [Mass/Vol] 3.7 g/dL Normal 3.2-5.0 [facility] Comment on above: Performed By: #### L 500.3400, L500.4100 ####[facility] [address] [place], [address] ALK P 115 U/L Normal 45-117 [facility] Comment on above: Performed By: #### L 500.3400, L500.4100 ####[facility] [address] [place], [address] ALT [Catalytic activity/Vol] 48 U/L Normal 13-56 [facility] Comment on above: Performed By: #### L 500.3400, L500.4100 ####[facility] [address] [place], [address] AST [Catalytic activity/Vol] 40 U/L High 15-37 [facility] Comment on above: Performed By: #### L 500.3400, L500.4100 ####[facility] [address] [place], [address] Bilirubin [Mass/Vol] 0.30 mg/dL Normal 0.20-1.00 [facility] Comment on above: Result Comment: For patients on eltrombopag therapy, use of Dimension [place] TBIL is not recommended. Performed By: #### L 500.3400, L500.4100 ####[facility] [address] [place], [address] Bilirubin.direct [Mass/Vol] 0.15 mg/dL Normal 0.00-0.30 [facility] Comment on above: Performed By: #### L 500.3400, L500.4100 ####[facility] [address] [place], [address] Globulin (S) [Mass/Vol] 3.6 g/dL Normal 2.2-4.2 [facility] Comment on above: Performed By: #### L 500.3400, L500.4100 ####[facility] [address] [place], [address] T PROT 7.3 g/dL Normal 6.4-8.2 [facility] Comment on above: Performed By: #### L 500.3400, L500.4100 ####[facility] [address] [place], [address] Low density lipoprotein (LDL ) cholesterol measurementOrdered By: Maryjane King on 06-18-2024 Cholesterol in LDL [Mass/Vol] 61 mg/dL 0-130 [facility] Lymphocytes Auto (Unsp spec) [#/Vol]Ordered By: Kaya Pierce on 06-18-2024 Lymphocytes (Bld) [#/Vol] 0.82 10*3/uL Low 0.83-4.51 [facility] Lymphocytes/100 WBC Auto (Un sp spec)Ordered By: Kaya Pierce on 06-18-2024 Lymphocytes/100 WBC (Bld) 26.1 % 19-41 [facility] MCV (mean corpuscular volume ) determinationOrdered By: Kaya Pierce on 06-18-2024 MCV (RBC) [Entitic vol] 87.8 fL 81-99 [facility] Mean corpuscular hemoglobin (MCH) determinationOrdered By: Kaya Pierce on 06-18-2024 MCH (RBC) [Entitic mass] 27.0 pg 27.0-32.0 [facility] Mean corpuscular hemoglobin concentration (MCHC) determinationOrdered By: Kaya Pierce on 06-18-2024 MCHC (RBC) [Mass/Vol] 30.7 g/dL Low 32-36 [facility] Mean platelet volume determi nationOrdered By: Kaya Pierce on 06-18-2024 Platelet mean volume (Bld) [Entitic vol] 11.0 fL 6.2-12.0 [facility] Monocyte percentageOrdered B y: Kaya Pierce on 06-18-2024 Monocytes/100 WBC (Bld) 11.5 % High 0-10 [facility] Neutrophil percentageOrdered By: Kaya Pierce on 06-18-2024 Neutrophils/100 WBC (Bld) 56.1 % 47-70 [facility] Nucleated red blood cell per centageOrdered By: Kaya Pierce on 06-18-2024 Nucleated RBC/100 WBC (Bld) [Ratio] 0 % 0-5 [facility] Platelet countOrdered By: Arcadio Pierce on 06-18-2024 Platelets (Bld) [#/Vol] 174 10*3/uL 150-450 [facility] Potassium measurementOrdered By: Kaya Pierce on 06-18-2024 Potassium [Moles/Vol] 4.5 mmol/L 3.5-5.1 [facility] RBC Auto (Bld) [#/Vol]Ordere d By: Kaya Pierce on 06-18-2024 RBC (Bld) [#/Vol] 3.78 10*6/uL Low 4.2-5.4 [facility] Serum anion gap measurementO rdered By: Kaya Pierce on 06-18-2024 Anion gap [Moles/Vol] 6 mmol/L 5-15 [facility] Serum globulin measurementOr dered By: Maryjane King on 06-18-2024 Globulin (S) [Mass/Vol] 3.6 g/dL 2.2-4.2 [facility] Serum or plasma alanine amaro otransferase (ALT) measurementOrdered By: Maryjane King on 06-18-2024 ALT [Catalytic activity/Vol] 48 U/L 13-56 [facility] Serum or plasma albumin hailee urement (mass/volume)Ordered By: Maryjane King on 06-18-2024 Albumin [Mass/Vol] 3.7 g/dL 3.2-5.0 [facility] Serum or plasma alkaline caren sphatase measurementOrdered By: Maryjane King on 06-18-2024 ALP [Catalytic activity/Vol] 115 U/L 45-117 [facility] Serum or plasma calcium hailee urement (mass/volume)Ordered By: Kaya Pirece on 06-18-2024 Calcium [Mass/Vol] 8.7 mg/dL 8.5-10.1 [facility] Serum or plasma cholesterol measurement (mass/volume)Ordered By: Maryjane King on 06-18-2024 Cholesterol [Mass/Vol] 130 mg/dL <200 [facility] Comment on above: <200 mg/dL Desirable 200-240 mg/dL Borderline >240 mg/dL High Risk Serum or plasma creatinine m easurement (mass/volume)Ordered By: Kaya Pierce on 06-18-2024 Creatinine [Mass/Vol] 0.64 mg/dL 0.55-1.02 [facility] Comment on above: The validity of the calculated GFR & GFRAA in patients over 70 years has not been determined. Clinical correlation is essential. Serum or plasma urea nitroge n measurement (mass/volume)Ordered By: Kaya Pierce on 06-18-2024 Urea nitrogen [Mass/Vol] 8 mg/dL 7-18 [facility] Sodium levelOrdered By: Mami Pierce on 06-18-2024 Sodium [Moles/Vol] 132 mmol/L Low 136-145 [facility] Total proteinOrdered By: Hector King on 06-18-2024 Protein [Mass/Vol] 7.3 g/dL 6.4-8.2 [facility] Triglycerides measurementOrd ered By: Maryjane King on 06-18-2024 Triglyceride [Mass/Vol] 54 mg/dL <199 [facility] Comment on above: The drugs N-Acetylcy steine and Metamizole may falsely depress this assay.Serum Triglycerides Reference Interval Normal <150 mg/dL Borderline high 150 - 199 mg/dL High 200 - 499 mg/dL Very High > or = 500 mg/dL Very low density lipoprotein (VLDL) cholesterol measurementOrdered By: Maryjane King on 06-18-2024 Very low density lipoprotein (VLDL) cholesterol measurement 11 mg/dL 5-40 [facility] VLDL Cholesterol 11 mg/dL 5-40 [facility] Vitamin D,25 Hydroxyon 06-18 Vitamin D 25-OH 29.9 ng/mL Normal [facility] Comment on above: Result Comment: Winifred min D 25(OH) Status Range Deficiency <20 ng/mL (50nmol/L) Insufficiency 20 - 30 ng/mL (50 - 75 nmol/L) Sufficiency 30 - 100 ng/mL (75 - 250 nmol/L) Toxicity >100 ng/mL (>250 nmol/L) Performed By: #### L 506.1000, L100.0100, L500.4050, L503.6150 ####[facility] [id number] [place], [address] White blood cell (WBC) count Ordered By: Kaya Pierce on 06-18-2024 WBC (Bld) [#/Vol] 3.1 10*3/uL Low 4.4-11.0 [facility] Calprotectin stoolOrdered By : Kaya Pierce on 06-17-2024 Calprotectin stool 102 ug/g 0-120 [facility] Comment on above: Concentration Interp retation Follow-Up< 5 - 50 ug/g Normal None>50 -120 ug/g Borderline Re-evaluate in 4-6 weeks >120 ug/g Abnormal Repeat as clinically indicatedPerformed at: - [facility] [id number] Director: Brigido Mtz MD, Phone: [phone] Stool Calprotectin 102 ug/g 0-120 [facility] Comment on above: Concentration Interp retation Follow-Up< 5 - 50 ug/g Normal None>50 -120 ug/g Borderline Re-evaluate in 4-6 weeks >120 ug/g Abnormal Repeat as clinically indicatedPerformed at: [facility] [id number] Director: Brigido Mtz MD, Phone: [phone] ENTERIC PATHOGEN PANEL STOOL on 06-17-2024 EP PANEL CAMPYLOBACTER Not Detected Norovirus Not Detected Rotavirus Not Detected Salmonella Not Detected Shiga Toxin Not Detected Shigella sp. Not Detected VIBRIO Not Detected Yersinia Not Detected Normal [facility] Comment on above: Performed By: #### M 100.637, L7000.0750, M600.5000, M7400.3302, M100.0605, L7000.0700 ####[facility] [id number] [place], [place], [id number] Elastase.pancreatic (Stl) [M ass/Mass]Ordered By: Kaya iPerce on 06-17-2024 Stool Pancreatic Elastase 669 >200 [facility] Comment on above: Result Units: ug Carmen st./g Severe Pancreatic Insufficiency: <100 Moderate Pancreatic Insufficiency: 100 - 200 Normal: >200Performed at: [facility] [id number] Director: Brigido Mtz MD, Phone: [phone] Giardia lamblia antigen assa y by enzyme immunoassayOrdered By: Kaya Pierce on 06-17-2024 Giardia Antigen (ALIX) [facility] Lactoferrin IA Ql (Stl)Order ed By: Kaya Pierce on 06-17-2024 Stool Lactoferrin [facility] Ova and parasitesOrdered By: Kaya Pierce on 06-17-2024 Ova and Parasites [facility] Stool Lactoferrin/WBCon 06-07 WBCST Normal Reference Ran ge = Negative Fecal WBC Lactoferrin Negative: No Fecal WBC Lactoferrin present Normal [facility] Comment on above: Performed By: #### M 100.637, L7000.0750, M600.5000, M7400.3302, M100.0605, L7000.0700 ####[facility] [id number] [place], [address] Stool enteric pathogen panel by probe and target amplification methodOrdered By: Kaya Pierce on 06-17-2024 Enteric Bacteriology [facility] Stool lactoferrin detection by immunoassayOrdered By: Kaya Pierce on 06-17-2024 Lactoferrin IA Ql (Stl) [facility] Stool pancreatic elastase me asurement (mass/mass)Ordered By: Kaya Pierce on 06-17-2024 Elastase.pancreatic (Stl) [Mass/Mass] 669 >200 [facility] Comment on above: Result Units: ug Carmen st./g Severe Pancreatic Insufficiency: <100 Moderate Pancreatic Insufficiency: 100 - 200 Normal: >200Performed at: [facility] [address] [id number] Director: Brigido Mtz MD, Phone: [phone] Basic metabolic 2000 panelon 05-28-2024 Anion gap [Moles/Vol] 11 mmol/L Normal 8-15 [facility] Comment on above: Order Comment: Speci men Type: BLOOD SPECIMENOrdering Facility: [facility] Address: [address] [place] [address] Performed By: #### 2 4321-2 ####[facility] LABCLIA [id number] [place] [address] [place] Calcium [Mass/Vol] 9.1 mg/dL Normal 8.5-10.2 [facility] Comment on above: Order Comment: Speci men Type: BLOOD SPECIMENOrdering Facility: [facility] Address: [address] [place] [address] Performed By: #### 2 4321-2 ####[facility] LABCLIA [id number] [address] [address] [place] Chloride [Moles/Vol] 99 mmol/L Normal 98-107 [facility] Comment on above: Order Comment: Speci men Type: BLOOD SPECIMENOrdering Facility: [facility] Address: [address] [place] [address] Performed By: #### 2 4321-2 ####[facility] LABCLIA [id number] [place] [address] [place] CO2 [Moles/Vol] 23 mmol/L Normal 22-30 [facility] Comment on above: Order Comment: Speci men Type: BLOOD SPECIMENOrdering Facility: [facility] Address: [address] [place] [address] Performed By: #### 2 4321-2 ####[facility] LABIA [id number] [address] [place] [facility] Creatinine [Mass/Vol] 0.61 mg/dL Normal 0.58-0.96 [facility] Comment on above: Order Comment: Speci men Type: BLOOD SPECIMENOrdering Facility: [facility] Address: [address] [place] [address] Performed By: #### 2 4321-2 ####[facility] LABIA [id number] [address] OF [facility] Creatinine and Glomerular filtration rate.predicted panel (S/P/Bld) 104 mL/min/1.73m??? Normal >=60 [facility] Comment on above: Order Comment: Speci men Type: BLOOD SPECIMENOrdering Facility: [facility] Address: [address] [place] [address] Result Comment: Arianna mated Glomerular Filtration Rate [...] actual GFR. Performed By: #### 2 4321-2 ####[facility] LABCLIA [id number] [place] [address] [place] Glucose [Mass/Vol] 95 mg/dL Normal 74-99 [facility] Comment on above: Order Comment: Speci men Type: BLOOD SPECIMENOrdering Facility: [facility] Address: [address] [place] [address] Result Comment: The [place] Diabetes Association (ADA) provides guidance for cutoff [...] Standards of Medical Care in Diabetes 2016, [place] Diabetes Association. Diabetes Care. 2016.39(Suppl 1). Performed By: #### 2 4321-2 ####[facility] LABCLIA [id number] [place] [address] [place] Potassium [Moles/Vol] 4.8 mmol/L Normal 3.7-5.1 [facility] Comment on above: Order Comment: Speci men Type: BLOOD SPECIMENOrdering Facility: [facility] Address: [address] [place] [address] Performed By: #### 2 4321-2 ####[facility] LABIA [id number] [place] [id number] [place] Sodium [Moles/Vol] 133 mmol/L Low 136-144 [facility] Comment on above: Order Comment: Speci men Type: BLOOD SPECIMENOrdering Facility: [facility] Address: [address] [id number] Performed By: #### 2 4321-2 ####[facility] LABIA [id number] [place] [address] [place] Urea nitrogen [Mass/Vol] 9 mg/dL Normal 7-21 [facility] Comment on above: Order Comment: Speci men Type: BLOOD SPECIMENOrdering Facility: [facility] Address: [address] [place] [address] Performed By: #### 2 4321-2 ####[facility] LABCLIA [id number] [facility] [address] [place] CBC W Auto Differential pane l (Bld)on 05-28-2024 Basophils (Bld) [#/Vol] [facility] Basophils/100 WBC (Bld) 0.5 % [facility] Differential cell count method Nom (Bld) Auto [facility] Eosinophils (Bld) [#/Vol] 0.06 10*3/uL [facility] Eosinophils/100 WBC (Bld) 1.5 % [facility] Erythrocyte distribution width (RBC) [Ratio] 15.3 % High 11.5 - 15.0 % [facility] Hematocrit (Bld) [Volume fraction] 29.5 % Low 36.0 - 46.0 % [facility] Hemoglobin (Bld) [Mass/Vol] 8.9 g/dL Low 11.5 - 15.5 g/dL [facility] Immature granulocytes (Bld) [#/Vol] [facility] Immature granulocytes/100 WBC (Bld) 0.2 % [facility] Interpretation and review of laboratory results Abnormal [facility] Lymphocytes (Bld) [#/Vol] 1.19 10*3/uL [facility] Lymphocytes/100 WBC (Bld) 29.7 % [facility] MCH (RBC) [Entitic mass] 28.0 pg 26.0 - 34.0 pg [facility] MCHC (RBC) [Mass/Vol] 30.2 g/dL Low 30.5 - 36.0 g/dL [facility] MCV (RBC) [Entitic vol] 92.8 fL 80.0 - 100.0 fL [facility] Monocytes (Bld) [#/Vol] 0.56 10*3/uL [facility] Monocytes/100 WBC (Bld) 14.0 % [facility] Neutrophils (Bld) [#/Vol] 2.17 10*3/uL [facility] Neutrophils/100 WBC (Bld) 54.1 % [facility] Nucleated RBC (Bld) [#/Vol] NINF [facility] Nucleated RBC/100 WBC (Bld) [Ratio] 0.0 % /100 WBC [facility] Platelet mean volume (Bld) [Entitic vol] 11.7 fL 9.0 - 12.7 fL [facility] Platelets (Bld) [#/Vol] 210 10*3/uL [facility] RBC (Bld) [#/Vol] 3.18 10*6/uL Low 3.90 - 5.20 m/uL [facility] WBC (Bld) [#/Vol] 4.01 10*3/uL [facility] Basophils (Bld) [#/Vol] 10*3/uL Normal <0.11 [facility] Comment on above: Order Comment: Speci men Type: BLOOD SPECIMENOrdering Facility: [facility] Address: [address] [place] [address] Performed By: #### 5 7021-8 ####[facility] LABCLIA [id number] [place] [address] [place] Basophils/100 WBC (Bld) 0.5 % Normal [facility] Comment on above: Order Comment: Speci men Type: BLOOD SPECIMENOrdering Facility: [facility] Address: [address] [place] [address] Performed By: #### 5 7021-8 ####[facility] LABCLIA [id number] [place] [address] [place] Differential cell count method Nom (Bld) Auto Normal [facility] Comment on above: Order Comment: Speci men Type: BLOOD SPECIMENOrdering Facility: [facility] Address: [address] [place] [address] Performed By: #### 5 7021-8 ####[facility] LABCLIA [id number] [place] [address] [place] Eosinophils (Bld) [#/Vol] 0.06 10*3/uL Normal <0.46 [facility] Comment on above: Order Comment: Speci men Type: BLOOD SPECIMENOrdering Facility: [facility] Address: [address] [place] [address] Performed By: #### 5 7021-8 ####[facility] LABIA [id number] [place] [address] [place] Eosinophils/100 WBC (Bld) 1.5 % Normal [facility] Comment on above: Order Comment: Speci men Type: BLOOD SPECIMENOrdering Facility: [facility] Address: [address] [place] [address] Performed By: #### 5 7021-8 ####[facility] LABIA [id number] [place] [address] [place] Erythrocyte distribution width (RBC) [Ratio] 15.3 % High 11.5-15.0 [facility] Comment on above: Order Comment: Speci men Type: BLOOD SPECIMENOrdering Facility: [facility] Address: [address] [place] [address] Performed By: #### 5 7021-8 ####[facility] LABIA [id number] [place] [address] [place] Hematocrit (Bld) [Volume fraction] 29.5 % Low 36.0-46.0 [facility] Comment on above: Order Comment: Speci men Type: BLOOD SPECIMENOrdering Facility: [facility] Address: [address] [place] [address] Performed By: #### 5 7021-8 ####[facility] LABIA [id number] [place] [address] [place] Hemoglobin (Bld) [Mass/Vol] 8.9 g/dL Low 11.5-15.5 [facility] Comment on above: Order Comment: Speci men Type: BLOOD SPECIMENOrdering Facility: [facility] Address: [address] [place] [address] Performed By: #### 5 7021-8 ####[facility] LABCLIA [id number] [place] [address] [place] Immature granulocytes (Bld) [#/Vol] 10*3/uL Normal <0.10 [facility] Comment on above: Order Comment: Speci men Type: BLOOD SPECIMENOrdering Facility: [facility] Address: [address] [place] [address] Performed By: #### 5 7021-8 ####[facility] LABCLIA [id number] [place] [address] [place] Immature granulocytes/100 WBC (Bld) 0.2 % Normal [facility] Comment on above: Order Comment: Speci men Type: BLOOD SPECIMENOrdering Facility: [facility] Address: [address] [place] [address] Performed By: #### 5 7021-8 ####[facility] LABCLIA [id number] [place] [address] [place] Lymphocytes (Bld) [#/Vol] 1.19 10*3/uL Normal 1.00-4.00 [facility] Comment on above: Order Comment: Speci men Type: BLOOD SPECIMENOrdering Facility: [facility] Address: [address] [place] [address] Performed By: #### 5 7021-8 ####[facility] LABCLIA [id number] [place] [address] [place] Lymphocytes/100 WBC (Bld) 29.7 % Normal [facility] Comment on above: Order Comment: Speci men Type: BLOOD SPECIMENOrdering Facility: [facility] Address: [address] [place] [address] Performed By: #### 5 7021-8 ####[facility] LABCLIA [id number] [place] [address] [place] MCH (RBC) [Entitic mass] 28.0 pg Normal 26.0-34.0 [facility] Comment on above: Order Comment: Speci men Type: BLOOD SPECIMENOrdering Facility: [facility] Address: [address] [place] [address] Performed By: #### 5 7021-8 ####[facility] LABCLIA [id number] [place] [address] [place] MCHC (RBC) [Mass/Vol] 30.2 g/dL Low 30.5-36.0 [facility] Comment on above: Order Comment: Speci men Type: BLOOD SPECIMENOrdering Facility: [facility] Address: [address] [place] [address] Performed By: #### 5 7021-8 ####[facility] LABIA [id number] [place] [address] [place] MCV (RBC) [Entitic vol] 92.8 fL Normal 80.0-100.0 [facility] Comment on above: Order Comment: Speci men Type: BLOOD SPECIMENOrdering Facility: [facility] Address: [address] [place] [address] Performed By: #### 5 7021-8 ####[facility] LABIA [id number] [place] [address] [place] Monocytes (Bld) [#/Vol] 0.56 10*3/uL Normal <0.87 [facility] Comment on above: Order Comment: Speci men Type: BLOOD SPECIMENOrdering Facility: [facility] Address: [address] [place] [address] Performed By: #### 5 7021-8 ####[facility] LABIA [id number] [place] [address] [place] Monocytes/100 WBC (Bld) 14.0 % Normal [facility] Comment on above: Order Comment: Speci men Type: BLOOD SPECIMENOrdering Facility: [facility] Address: [address] [place] [address] Performed By: #### 5 7021-8 ####[facility] LABCLIA [id number] [place] [address] [place] Neutrophils (Bld) [#/Vol] 2.17 10*3/uL Normal 1.45-7.50 [facility] Comment on above: Order Comment: Speci men Type: BLOOD SPECIMENOrdering Facility: [facility] Address: [address] [place] [address] Performed By: #### 5 7021-8 ####[facility] LABCLIA [id number] [place] [address] [place] Neutrophils/100 WBC (Bld) 54.1 % Normal [facility] Comment on above: Order Comment: Speci men Type: BLOOD SPECIMENOrdering Facility: [facility] Address: [address] [place] [address] Performed By: #### 5 7021-8 ####[facility] LABCLIA [id number] [place] [address] [place] Nucleated RBC (Bld) [#/Vol] 10*3/uL Normal <0.01 [facility] Comment on above: Order Comment: Speci men Type: BLOOD SPECIMENOrdering Facility: [facility] Address: [address] [place] [address] Performed By: #### 5 7021-8 ####[facility] LABCLIA [id number] [place] [address] [place] Nucleated RBC/100 WBC (Bld) [Ratio] 0.0 /100 WBC Normal [facility] Comment on above: Order Comment: Speci men Type: BLOOD SPECIMENOrdering Facility: [facility] Address: [address] [place] [address] Performed By: #### 5 7021-8 ####[facility] LABCLIA [id number] [place] [address] [place] Platelet mean volume (Bld) [Entitic vol] 11.7 fL Normal 9.0-12.7 [facility] Comment on above: Order Comment: Speci men Type: BLOOD SPECIMENOrdering Facility: [facility] Address: [address] [place] [address] Performed By: #### 5 7021-8 ####[facility] LABIA [id number] [place] [address] [place] Platelets (Bld) [#/Vol] 210 10*3/uL Normal 150-400 [facility] Comment on above: Order Comment: Speci men Type: BLOOD SPECIMENOrdering Facility: [facility] Address: [address] [place] [address] Performed By: #### 5 7021-8 ####[facility] LABIA [id number] [place] [address] [place] RBC (Bld) [#/Vol] 3.18 10*6/uL Low 3.90-5.20 [facility] Comment on above: Order Comment: Speci men Type: BLOOD SPECIMENOrdering Facility: [facility] Address: [address] [place] [address] Performed By: #### 5 7021-8 ####[facility] LABIA [id number] [place] [address] [place] WBC (Bld) [#/Vol] 4.01 10*3/uL Normal 3.70-11.00 [facility] Comment on above: Order Comment: Speci men Type: BLOOD SPECIMENOrdering Facility: [facility] Address: [address] [place] [address] Performed By: #### 5 7021-8 ####[facility] LABIA [id number] [place] [address] [place] CNOVon 05-28-2024 CNOV Office Visit (INTMWS ) CASSIA HOLLAND ([id number]) 1965 F Date Time Provider Department 05/28/24 12:20 PM SHAHRIAR BROWN During your visit today, [...] (PLAQUENIL) 200 (more content not included)... Normal [facility] HbA1c (Bld)on 05-28-2024 Average glucose Estimated from glycated hemoglobin (Bld) [Mass/Vol] 80 mg/dL [facility] Comment on above: eAG: (Estimated aver age glucose) is a calculated value from HgbA1c and is patient registration representative of the average blood glucose level in the last 2-3 month period. HbA1c (Bld) [Mass fraction] 4.4 % 4.3 - 5.6 % [facility] Comment on above: [place] Diabetes As sociation guidelines indicate that patients with HgbA1c in the range 5.7-6.4% are at increased risk for development of diabetes, and intervention by lifestyle modification may be beneficial. HgbA1c greater or equal to 6.5% is considered diagnostic of diabetes. [facility] Average glucose Estimated from glycated hemoglobin (Bld) [Mass/Vol] 80 mg/dL Normal [facility] Comment on above: Order Comment: Speci men Type: BLOOD SPECIMENOrdering Facility: [facility] Address: [address] [place] [address] Result Comment: eAG: (Estimated average glucose) is a calculated value from HgbA1c and is patient registration representative of the average blood glucose level in the last 2-3 month period. Performed By: #### 5 5454-3 ####[facility] LABCLIA [id number] [place] [address] [place] HbA1c (Bld) [Mass fraction] 4.4 % Normal 4.3-5.6 [facility] Comment on above: Order Comment: Speci men Type: BLOOD SPECIMENOrdering Facility: [facility] Address: [address] [id number] Result Comment: [place] Diabetes Association guidelines indicate that patients with HgbA1c in the range 5.7-6.4% are at increased risk for development of diabetes, and intervention by lifestyle modification may be beneficial. HgbA1c greater or equal to 6.5% is considered diagnostic of diabetes. Performed By: #### 5 5454-3 ####[facility] LABCLIA [id number] [id number] [address] [place] [facility] Absolute neutrophil countOrd ered By: Kaya Pierce on 05-21-2024 Neutrophils (Bld) [#/Vol] 1.8 10*3/uL Low 2.0-7.7 [facility] Basophil percentageOrdered B y: Kaya Pierce on 05-21-2024 Basophils/100 WBC (Bld) 0.7 % 0-1 [facility] CBC W/Diff, Automatedon 05-07-2024 Absolute Lymph 0.71 X10 3/uL Low 0.83-4.51 [facility] Comment on above: Performed By: #### L 100.0100 ####[facility] [id number] [facility] [place], [address] Absolute Neut 1.8 X10 3/uL Low 2.0-7.7 [facility] Comment on above: Performed By: #### L 100.0100 ####[facility] [id number] [place], [address] Basophils/100 WBC (Bld) 0.7 % Normal 0-1 [facility] Comment on above: Performed By: #### L 100.0100 ####[facility] [address] [facility] [place], [address] Eosinophils/100 WBC (Bld) 1.7 % Normal 0-5 [facility] Comment on above: Performed By: #### L 100.0100 ####[facility] [address] [place], [address] Erythrocyte distribution width (RBC) [Ratio] 15.8 % High 11.6-14.6 [facility] Comment on above: Performed By: #### L 100.0100 ####[facility] [address] [place], [address] Hematocrit (Bld) [Volume fraction] 26.8 % Low 37-47 [facility] Comment on above: Performed By: #### L 100.0100 ####[facility] [address] [place], [address] Hemoglobin (Bld) [Mass/Vol] 8.1 g/dL Low 12.0-15.0 [facility] Comment on above: Performed By: #### L 100.0100 ####[facility] [address] [place], [address] IG% 0.300 Normal 0.0-0.9 [facility] Comment on above: Result Comment: IG% - Immature Granulocytes (promyelocytes, myelocytes andmetamyelocytes) > 1% indicates that a LEFT SHIFT is Present. Performed By: #### L 100.0100 ####[facility] [address] [place], [address] Lymphocytes/100 WBC (Bld) 23.9 % Normal 19-41 [facility] Comment on above: Performed By: #### L 100.0100 ####[facility] [address] [place], [address] MCH (RBC) [Entitic mass] 28.1 pg Normal 27.0-32.0 [facility] Comment on above: Performed By: #### L 100.0100 ####[facility] [address] [place], [address] MCHC (RBC) [Mass/Vol] 30.2 g/dL Low 32-36 [facility] Comment on above: Performed By: #### L 100.0100 ####[facility] [address] [place], [address] MCV (RBC) [Entitic vol] 93.1 fL Normal 81-99 [facility] Comment on above: Performed By: #### L 100.0100 ####[facility] [address] [place], [address] Monocytes/100 WBC (Bld) 13.1 % High 0-10 [facility] Comment on above: Performed By: #### L 100.0100 ####[facility] [address] [place], [address] Neutrophils/100 WBC (Bld) 60.3 % Normal 47-70 [facility] Comment on above: Performed By: #### L 100.0100 ####[facility] [address] [place], [address] Nucleated RBC (Bld) [#/Vol] 0 10*3/uL Normal 0-5 [facility] Comment on above: Performed By: #### L 100.0100 ####[facility] [address] [place], [address] Platelet mean volume (Bld) [Entitic vol] 11.5 fL Normal 6.2-12.0 [facility] Comment on above: Performed By: #### L 100.0100 ####[facility] [address] [place], [address] Platelets (Bld) [#/Vol] 182 10*3/uL Normal 150-450 [facility] Comment on above: Performed By: #### L 100.0100 ####[facility] [address] [place], [address] RBC (Bld) [#/Vol] 2.88 10*6/uL Low 4.2-5.4 [facility] Comment on above: Performed By: #### L 100.0100 ####[facility] [address] [place], [address] RDW SD 54.3 fl High 35.1-43.9 [facility] Comment on above: Performed By: #### L 100.0100 ####[facility] [address] [place], [address] WBC (Bld) [#/Vol] 3.0 10*3/uL Low 4.4-11.0 [facility] Comment on above: Performed By: #### L 100.0100 ####[facility] [address] [place], [address] Eosinophil percentageOrdered By: Kaya Pierce on 05-21-2024 Eosinophils/100 WBC (Bld) 1.7 % 0-5 [facility] Erythrocyte distribution wid th ratioOrdered By: Kaya Pierce on 05-21-2024 Erythrocyte distribution width (RBC) [Ratio] 15.8 % High 11.6-14.6 [facility] Erythrocyte distribution wid th standard deviationOrdered By: Kaya Pierce on 05-21-2024 Erythrocyte distribution width (RBC) [Entitic vol] 54.3 fL High 35.1-43.9 [facility] Gastroenterology Visit Repor ton 05-21-2024 Gastroenterology Visit Report Normal [facility] Hematocrit Auto (Bld) [Volum e fraction]Ordered By: Kaya Pierce on 05-21-2024 Hematocrit (Bld) [Volume fraction] 26.8 % Low 37-47 [facility] Hemoglobin measurementOrdere d By: Kaya Pierce on 05-21-2024 Hemoglobin (Bld) [Mass/Vol] 8.1 g/dL Low 12.0-15.0 [facility] Immature granulocytes/100 WB C Auto (Bld)Ordered By: Kaya Pierce on 05-21-2024 Immature granulocytes/100 WBC (Bld) 0.300 % 0.0-0.9 [facility] Comment on above: IG% - Immature Granu locytes (promyelocytes, myelocytes and metamyelocytes) > 1% indicates that a LEFT SHIFT is Present. Lymphocytes Auto (Unsp spec) [#/Vol]Ordered By: Kaya Pierce on 05-21-2024 Lymphocytes (Bld) [#/Vol] 0.71 10*3/uL Low 0.83-4.51 [facility] Lymphocytes/100 WBC Auto (Un sp spec)Ordered By: Kaya Pierce on 05-21-2024 Lymphocytes/100 WBC (Bld) 23.9 % 19-41 [facility] MCV (mean corpuscular volume ) determinationOrdered By: Kaya Pierce on 05-21-2024 MCV (RBC) [Entitic vol] 93.1 fL 81-99 [facility] Mean corpuscular hemoglobin (MCH) determinationOrdered By: Kaya Pierce on 05-21-2024 MCH (RBC) [Entitic mass] 28.1 pg 27.0-32.0 [facility] Mean corpuscular hemoglobin concentration (MCHC) determinationOrdered By: Kaya Pierce on 05-21-2024 MCHC (RBC) [Mass/Vol] 30.2 g/dL Low 32-36 [facility] Mean platelet volume determi nationOrdered By: Kaya Pierce on 05-21-2024 Platelet mean volume (Bld) [Entitic vol] 11.5 fL 6.2-12.0 [facility] Monocyte percentageOrdered B y: Kaya Pierce on 05-21-2024 Monocytes/100 WBC (Bld) 13.1 % High 0-10 [facility] Neutrophil percentageOrdered By: Kaya Pierce on 05-21-2024 Neutrophils/100 WBC (Bld) 60.3 % 47-70 [facility] Nucleated red blood cell per centageOrdered By: Kaya Pierce on 05-21-2024 Nucleated RBC/100 WBC (Bld) [Ratio] 0 % 0-5 [facility] Platelet countOrdered By: Arcadio Pierce on 05-21-2024 Platelets (Bld) [#/Vol] 182 10*3/uL 150-450 [facility] RBC Auto (Bld) [#/Vol]Ordere d By: Kaya Pierce on 05-21-2024 RBC (Bld) [#/Vol] 2.88 10*6/uL Low 4.2-5.4 [facility] White blood cell (WBC) count Ordered By: Kaya Pierce on 05-21-2024 WBC (Bld) [#/Vol] 3.0 10*3/uL Low 4.4-11.0 [facility] 12 Lead EKGon 05-14-2024 12 Lead EKG Normal [facility] Albumin to globulin ratioOrd ered By: Franklin Anne on 05-14-2024 Albumin/Globulin [Mass ratio] 0.9 {ratio} 0.9-2.4 [facility] Bedside Glucoseon 05-14-2024 FINGERSTICK GLU 100 mg/dL Normal 74-106 [facility] Comment on above: Result Comment: MATTHEW PLASCENCIA OF PATIENT CARE PER NURSING PROTOCOL Performed By: #### L 501.080 ####[facility] [address] [place], [place], [id number] Bilirubin, totalOrdered By: Frankiln Anne on 05-14-2024 Bilirubin [Mass/Vol] 0.40 mg/dL 0.20-1.00 [facility] Comment on above: For patients on eltr ombopag therapy, use of Dimension [place] TBIL is not recommended. Blood urea nitrogen (BUN)/cr eatinine ratioOrdered By: Franklin Anne on 05-14-2024 Urea nitrogen/Creatinine [Mass ratio] 37.9 mg/mg High 10-20 [facility] CBC-Complete Blood Cnt No Di ffon 05-14-2024 Erythrocyte distribution width (RBC) [Ratio] 18.2 % High 11.6-14.6 [facility] Comment on above: Performed By: #### L 500.4050, L300.4310, L100.0500, L300.3900 ####[facility] [address] [place], [address] Hematocrit (Bld) [Volume fraction] 23.4 % Low 37-47 [facility] Comment on above: Performed By: #### L 500.4050, L300.4310, L100.0500, L300.3900 ####[facility] [address] [place], [address] Hemoglobin (Bld) [Mass/Vol] 7.5 g/dL Low 12.0-15.0 [facility] Comment on above: Performed By: #### L 500.4050, L300.4310, L100.0500, L300.3900 ####[facility] [address] [place], [address] MCH (RBC) [Entitic mass] 30.0 pg Normal 27.0-32.0 [facility] Comment on above: Performed By: #### L 500.4050, L300.4310, L100.0500, L300.3900 ####[facility] [address] [place], [address] MCHC (RBC) [Mass/Vol] 32.1 g/dL Normal 32-36 [facility] Comment on above: Performed By: #### L 500.4050, L300.4310, L100.0500, L300.3900 ####[facility] [address] [place], [address] MCV (RBC) [Entitic vol] 93.6 fL Normal 81-99 [facility] Comment on above: Performed By: #### L 500.4050, L300.4310, L100.0500, L300.3900 ####[facility] [address] [place], [address] Platelet mean volume (Bld) [Entitic vol] 11.5 fL Normal 6.2-12.0 [facility] Comment on above: Performed By: #### L 500.4050, L300.4310, L100.0500, L300.3900 ####[facility] [address] [place], [address] Platelets (Bld) [#/Vol] 193 10*3/uL Normal 150-450 [facility] Comment on above: Performed By: #### L 500.4050, L300.4310, L100.0500, L300.3900 ####[facility] [address] [place], [address] RBC (Bld) [#/Vol] 2.50 10*6/uL Low 4.2-5.4 [facility] Comment on above: Performed By: #### L 500.4050, L300.4310, L100.0500, L300.3900 ####[facility] [address] [place], [address] RDW SD 61.5 fl High 35.1-43.9 [facility] Comment on above: Performed By: #### L 500.4050, L300.4310, L100.0500, L300.3900 ####[facility] [address] [place], [address] WBC (Bld) [#/Vol] 4.1 10*3/uL Low 4.4-11.0 [facility] Comment on above: Performed By: #### L 500.4050, L300.4310, L100.0500, L300.3900 ####[facility] [address] [place], [address] CNOVon 05-14-2024 CNOV Office Visit (INTMWS ) CASSIA HOLLAND ([id number]) 1965 F Date Time Provider Department 05/14/24 9:40 AM OLDER, SHAHRIAR INTMWS During your visit today, we recorded the following information about you: Pulse Respiration Blood pressure Weight 84/minute 16/minute 102/58 85.3 kg Shahriar Brown APRN.CNP 05/14/2024 10:05 AM Signed CC: Patient presents with: Recheck: 3 month follow up, recent ER follow up HPI Cassia Holland is a 58 year old female who presents today for ER follow-up. Facility: [facility] ER Date of visit: 05/10/24 Reason [...] per directed for severe allergic reaction lancets ([facility] DELICA PLUS LANCET) 33 gauge Test blood sugar(s) 1 times daily. Dx: Type 2 DM - Controlled E11.9 Insulin: No blood sugar diagnostic ([facility] ULTRA TEST) test strip use 1 TEST [...] Grandfather Soc (more content not included)... Normal [facility] Carbon dioxide measurementOr dered By: Franklin Anne on 05-14-2024 CO2 [Moles/Vol] 23.0 mmol/L 21.0-32.0 [facility] Chloride measurementOrdered By: Franklin Anne on 05-14-2024 Chloride [Moles/Vol] 102 mmol/L 98-107 [facility] Comprehensive Metabolic Prof ilon 05-14-2024 Albumin [Mass/Vol] 3.1 g/dL Low 3.2-5.0 [facility] Comment on above: Performed By: #### L 500.4050, L300.4310, L100.0500, L300.3900 ####[facility] [address] [place], [address] Albumin/Globulin [Mass ratio] 0.9 {ratio} Normal 0.9-2.4 [facility] Comment on above: Performed By: #### L 500.4050, L300.4310, L100.0500, L300.3900 ####[facility] [address] [place], [address] ALK P 92 U/L Normal 45-117 [facility] Comment on above: Performed By: #### L 500.4050, L300.4310, L100.0500, L300.3900 ####[facility] [address] [place], [address] ALT [Catalytic activity/Vol] 69 U/L High 13-56 [facility] Comment on above: Performed By: #### L 500.4050, L300.4310, L100.0500, L300.3900 ####[facility] [address] [place], [address] AST [Catalytic activity/Vol] 52 U/L High 15-37 [facility] Comment on above: Performed By: #### L 500.4050, L300.4310, L100.0500, L300.3900 ####[facility] [address] [place], [address] Bilirubin [Mass/Vol] 0.40 mg/dL Normal 0.20-1.00 [facility] Comment on above: Result Comment: For patients on eltrombopag therapy, use of Dimension [place] TBIL is not recommended. Performed By: #### L 500.4050, L300.4310, L100.0500, L300.3900 ####[facility] [address] [place], [address] BUN/CRE 37.9 RATIO High 10-20 [facility] Comment on above: Performed By: #### L 500.4050, L300.4310, L100.0500, L300.3900 ####[facility] [address] [place], [address] CA,Total 8.3 mg/dL Low 8.5-10.1 [facility] Comment on above: Performed By: #### L 500.4050, L300.4310, L100.0500, L300.3900 ####[facility] [address] [place], [address] Chloride [Moles/Vol] 102 mmol/L Normal 98-107 [facility] Comment on above: Performed By: #### L 500.4050, L300.4310, L100.0500, L300.3900 ####[facility] [address] [place], [address] CO2 [Moles/Vol] 23.0 mmol/L Normal 21.0-32.0 [facility] Comment on above: Performed By: #### L 500.4050, L300.4310, L100.0500, L300.3900 ####[facility] [address] [place], [address] Creatinine [Mass/Vol] 0.58 mg/dL Normal 0.55-1.02 [facility] Comment on above: Result Comment: The validity of the calculated GFR GFRAA in patients over70 years has not been determined. Clinical correlation isessential. Performed By: #### L 500.4050, L300.4310, L100.0500, L300.3900 ####[facility] [address] [place], [address] ECRCL 109.22 ml/min Normal [facility] Comment on above: Performed By: #### L 500.4050, L300.4310, L100.0500, L300.3900 ####[facility] [address] [place], [address] EST GFR - AA 137 mL/min Normal >60 [facility] Comment on above: Result Comment: Afri can Norwegian GFR Calc Performed By: #### L 500.4050, L300.4310, L100.0500, L300.3900 ####[facility] [address] [place], [address] GAP 7 Normal 5-15 [facility] Comment on above: Performed By: #### L 500.4050, L300.4310, L100.0500, L300.3900 ####[facility] [address] [place], [address] GFR/1.73 sq M.predicted among non-blacks MDRD (S/P/Bld) [Vol rate/Area] 113 mL/min/{1.73_m2} Normal >60 [facility] Comment on above: Result Comment: Non- GFR Calc Performed By: #### L 500.4050, L300.4310, L100.0500, L300.3900 ####[facility] [address] [place], [address] Globulin (S) [Mass/Vol] 3.4 g/dL Normal 2.2-4.2 [facility] Comment on above: Performed By: #### L 500.4050, L300.4310, L100.0500, L300.3900 ####[facility] [address] [place], [address] Glucose [Mass/Vol] 100 mg/dL Normal 74-106 [facility] Comment on above: Result Comment: Fast ing Glucose result from 100 to 125 mg/dLsuggests IMPAIRED HOMEOSTASIS per A.D.A. criteria. Performed By: #### L 500.4050, L300.4310, L100.0500, L300.3900 ####[facility] [address] [place], [address] Potassium [Moles/Vol] 4.5 mmol/L Normal 3.5-5.1 [facility] Comment on above: Performed By: #### L 500.4050, L300.4310, L100.0500, L300.3900 ####[facility] [address] [place], [address] Sodium [Moles/Vol] 132 mmol/L Low 136-145 [facility] Comment on above: Performed By: #### L 500.4050, L300.4310, L100.0500, L300.3900 ####[facility] [address] [place], [address] T PROT 6.5 g/dL Normal 6.4-8.2 [facility] Comment on above: Performed By: #### L 500.4050, L300.4310, L100.0500, L300.3900 ####[facility] [address] [place], [address] Urea nitrogen [Mass/Vol] 22 mg/dL High 7-18 [facility] Comment on above: Performed By: #### L 500.4050, L300.4310, L100.0500, L300.3900 ####[facility] [address] [place], [address] EGD Reporton 05-14-2024 EGD Report Normal [facility] Erythrocyte distribution wid th ratioOrdered By: Franklin Anne on 05-14-2024 Erythrocyte distribution width (RBC) [Ratio] 18.2 % High 11.6-14.6 [facility] Erythrocyte distribution wid th standard deviationOrdered By: Franklin Anne on 05-14-2024 Erythrocyte distribution width (RBC) [Entitic vol] 61.5 fL High 35.1-43.9 [facility] Estimated glomerular filtrat ion rate (GFR) AmericanOrdered By: Franklin Anne on 05-14-2024 Estimated GFR (MDRD) Amer 137 mL/min >60 [facility] Comment on above: GFR Calc Estimation of creatinine javi aranceOrdered By: Franklin Anne on 05-14-2024 Estimated Creatinine Clearance Calc 109.22 ml/min [facility] Glomerular filtration rate ( GFR) estimationOrdered By: Franklin Anne on 05-14-2024 Estimated GFR (MDRD) Non-Af Amer 113 mL/min >60 [facility] Comment on above: Non- GFR Calc Glucose measurementOrdered B y: Franklin Anne on 05-14-2024 Glucose [Mass/Vol] 100 mg/dL 74-106 [facility] Comment on above: Fasting Glucose resu lt from 100 to 125 mg/dL suggests IMPAIRED HOMEOSTASIS per A.D.A. criteria. [facility] deOrdered By: Mike Daley on 05-14-2024 Bedside Glucose (Misc Panel) 100 mg/dL 74-106 [facility] Comment on above: MANAGEMENT OF PATIEN T CARE PER NURSING PROTOCOL H Pylori (initial)on 025 H Pylori (initial) Normal [facility] Comment on above: Performed By: #### P H.PYLORI ####[facility] [address] [place], [place], [address] Hematocrit Auto (Bld) [Volum e fraction]Ordered By: Franklin Anne on 05-14-2024 Hematocrit (Bld) [Volume fraction] 23.4 % Low 37-47 [facility] Hemoglobin measurementOrdere d By: Franklin Anne on 05-14-2024 Hemoglobin (Bld) [Mass/Vol] 7.5 g/dL Low 12.0-15.0 [facility] International normalized rat io (INR) calculationOrdered By: Franklin Anne on 05-14-2024 INR Coag (Bld) [Relative time] 1.2 {INR} [facility] Laboratory - Chemistry and C hemistry - challengeOrdered By: Franklin Anne on 05-14-2024 AST [Catalytic activity/Vol] 52 U/L High 15-37 [facility] MCV (mean corpuscular volume ) determinationOrdered By: Franklin Anne on 05-14-2024 MCV (RBC) [Entitic vol] 93.6 fL 81-99 [facility] Comment on above: Delta: 100.9 on MR/POSTOP.ANEon 05-14-2024 MR/POSTOP.ANE Normal [facility] MR/QMXEDCXM6tn 05-14-2024 MR/POSTOPAN2 Normal [facility] Mean corpuscular hemoglobin (MCH) determinationOrdered By: Franklin Anne on 05-14-2024 MCH (RBC) [Entitic mass] 30.0 pg 27.0-32.0 [facility] Mean corpuscular hemoglobin concentration (MCHC) determinationOrdered By: Franklin Anne on 05-14-2024 MCHC (RBC) [Mass/Vol] 32.1 g/dL 32-36 [facility] Comment on above: Delta: 29.9 on 05/10 Mean platelet volume determi nationOrdered By: Franklin Anne on 05-14-2024 Platelet mean volume (Bld) [Entitic vol] 11.5 fL 6.2-12.0 [facility] Partial Thromboplast Timeon 05-14-2024 aPTT Coag (Bld) [Time] 28.8 s Normal 24.1-36.2 [facility] Comment on above: Performed By: #### L 500.4050, L300.4310, L100.0500, L300.3900 ####[facility] [address] [place], [address] Platelet countOrdered By: Dennis Anne on 05-14-2024 Platelets (Bld) [#/Vol] 193 10*3/uL 150-450 [facility] Potassium measurementOrdered By: Franklin Anne on 05-14-2024 Potassium [Moles/Vol] 4.5 mmol/L 3.5-5.1 [facility] Prothrombin Time w/INRon INR Coag (PPP) [Relative time] 1.2 {INR} Normal [facility] Comment on above: Performed By: #### L 500.4050, L300.4310, L100.0500, L300.3900 ####[facility] [address] [place], [address] PT Coag (PPP) [Time] 15.7 s High 11.7-14.9 [facility] Comment on above: Performed By: #### L 500.4050, L300.4310, L100.0500, L300.3900 ####[facility] [address] [place], [address] Prothrombin timeOrdered By: Franklin Anne on 05-14-2024 PT Coag (PPP) [Time] 15.7 s High 11.7-14.9 [facility] RBC Auto (Bld) [#/Vol]Ordere d By: Franklin Anne on 05-14-2024 RBC (Bld) [#/Vol] 2.50 10*6/uL Low 4.2-5.4 [facility] Serum anion gap measurementO rdered By: Franklin Anne on 05-14-2024 Anion gap [Moles/Vol] 7 mmol/L 5-15 [facility] Serum globulin measurementOr dered By: Franklin Anne on 05-14-2024 Globulin (S) [Mass/Vol] 3.4 g/dL 2.2-4.2 [facility] Serum or plasma alanine amaro otransferase (ALT) measurementOrdered By: Franklin Anne on 05-14-2024 ALT [Catalytic activity/Vol] 69 U/L High 13-56 [facility] Serum or plasma albumin hailee urement (mass/volume)Ordered By: Franklin Anne on 05-14-2024 Albumin [Mass/Vol] 3.1 g/dL Low 3.2-5.0 [facility] Serum or plasma alkaline caren sphatase measurementOrdered By: Franklin Anne on 05-14-2024 ALP [Catalytic activity/Vol] 92 U/L 45-117 [facility] Serum or plasma calcium hailee urement (mass/volume)Ordered By: Franklin Anne on 05-14-2024 Calcium [Mass/Vol] 8.3 mg/dL Low 8.5-10.1 [facility] Serum or plasma creatinine m easurement (mass/volume)Ordered By: Franklin Anne on 05-14-2024 Creatinine [Mass/Vol] 0.58 mg/dL 0.55-1.02 [facility] Comment on above: The validity of the calculated GFR & GFRAA in patients over 70 years has not been determined. Clinical correlation is essential. Serum or plasma urea nitroge n measurement (mass/volume)Ordered By: Franklin Anne on 05-14-2024 Urea nitrogen [Mass/Vol] 22 mg/dL High 7-18 [facility] Sodium levelOrdered By: Franklin Anne on 05-14-2024 Sodium [Moles/Vol] 132 mmol/L Low 136-145 [facility] Surgery Specimen Level Margarita 05-14-2024 Surgery Specimen Level IV Normal [facility] Comment on above: Performed By: #### P SUIV ####[facility] [address] [place], [address] Total proteinOrdered By: Franklin Anne on 05-14-2024 Protein [Mass/Vol] 6.5 g/dL 6.4-8.2 [facility] White blood cell (WBC) count Ordered By: Franklin Anne on 05-14-2024 WBC (Bld) [#/Vol] 4.1 10*3/uL Low 4.4-11.0 [facility] aPTT Coag (PPP) [Time]Ordere d By: Franklin Anne on 05-14-2024 aPTT Coag (Bld) [Time] 28.8 s 24.1-36.2 [facility] MR/PAT.ANEon 05-12-2024 MR/PAT.ANE Normal [facility] 12 Lead EKGon 05-10-2024 12 Lead EKG Normal [facility] Absolute neutrophil countOrd ered By: Alfredo Sr on 05-10-2024 Neutrophils (Bld) [#/Vol] 2.2 10*3/uL 2.0-7.7 [facility] BRCon 05-10-2024 RC Normal [facility] Comment on above: Result Comment: [id number] ON RC TRANSFUSED 05/10/24 2150 Performed By: #### B TS, BRC, M100.7900 ####[facility] [address] [place], [address] Basic Metabolic Profile (BMP )on 05-10-2024 BUN/CRE 29.5 RATIO High 10-20 [facility] Comment on above: Performed By: #### L 100.0100, L500.2500 ####[facility] [address] [place], [address] CA,Total 8.3 mg/dL Low 8.5-10.1 [facility] Comment on above: Performed By: #### L 100.0100, L500.2500 ####[facility] [address] [place], [address] Chloride [Moles/Vol] 103 mmol/L Normal 98-107 [facility] Comment on above: Performed By: #### L 100.0100, L500.2500 ####[facility] [address] [place], [address] CO2 [Moles/Vol] 25.0 mmol/L Normal 21.0-32.0 [facility] Comment on above: Performed By: #### L 100.0100, L500.2500 ####[facility] [address] [place], [address] Creatinine [Mass/Vol] 0.54 mg/dL Low 0.55-1.02 [facility] Comment on above: Result Comment: The validity of the calculated GFR GFRAA in patients over70 years has not been determined. Clinical correlation isessential. Performed By: #### L 100.0100, L500.2500 ####[facility] [address] [place], [address] ECRCL 117.77 ml/min Normal [facility] Comment on above: Performed By: #### L 100.0100, L500.2500 ####[facility] [address] [place], [address] EST GFR - AA 148 mL/min Normal >60 [facility] Comment on above: Result Comment: Afri can Norwegian GFR Calc Performed By: #### L 100.0100, L500.2500 ####[facility] [address] [place], [address] GAP 5 Normal 5-15 [facility] Comment on above: Performed By: #### L 100.0100, L500.2500 ####[facility] [address] [place], [address] GFR/1.73 sq M.predicted among non-blacks MDRD (S/P/Bld) [Vol rate/Area] 122 mL/min/{1.73_m2} Normal >60 [facility] Comment on above: Result Comment: Non- GFR Calc Performed By: #### L 100.0100, L500.2500 ####[facility] [address] [place], [address] Glucose [Mass/Vol] 84 mg/dL Normal 74-106 [facility] Comment on above: Performed By: #### L 100.0100, L500.2500 ####[facility] [address] [place], [address] Potassium [Moles/Vol] 4.5 mmol/L Normal 3.5-5.1 [facility] Comment on above: Performed By: #### L 100.0100, L500.2500 ####[facility] [address] [place], [address] Sodium [Moles/Vol] 133 mmol/L Low 136-145 [facility] Comment on above: Performed By: #### L 100.0100, L500.2500 ####[facility] [address] [place], [address] Urea nitrogen [Mass/Vol] 16 mg/dL Normal 7-18 [facility] Comment on above: Performed By: #### L 100.0100, L500.2500 ####[facility] [address] [place], [address] Basophil percentageOrdered B y: Alfredo Sr on 05-10-2024 Basophils/100 WBC (Bld) 0.2 % 0-1 [facility] Blood urea nitrogen (BUN)/cr eatinine ratioOrdered By: Alfredo Sr on 05-10-2024 Urea nitrogen/Creatinine [Mass ratio] 29.5 mg/mg High 10-20 [facility] Brain/Head without Contrasto n 05-10-2024 Brain/Head without Contrast Normal [facility] CBC W/Diff, Automatedon Absolute Lymph 1.34 X10 3/uL Normal 0.83-4.51 [facility] Comment on above: Performed By: #### L 100.0100, L500.2500 ####[facility] [address] [place], [address] Absolute Neut 2.2 X10 3/uL Normal 2.0-7.7 [facility] Comment on above: Performed By: #### L 100.0100, L500.2500 ####[facility] [address] [place], [address] Basophils/100 WBC (Bld) 0.2 % Normal 0-1 [facility] Comment on above: Performed By: #### L 100.0100, L500.2500 ####[facility] [address] [place], [address] Eosinophils/100 WBC (Bld) 2.5 % Normal 0-5 [facility] Comment on above: Performed By: #### L 100.0100, L500.2500 ####[facility] [address] [place], [address] Erythrocyte distribution width (RBC) [Ratio] 17.2 % High 11.6-14.6 [facility] Comment on above: Performed By: #### L 100.0100, L500.2500 ####[facility] [address] [place], [address] Hematocrit (Bld) [Volume fraction] 21.4 % Low 37-47 [facility] Comment on above: Performed By: #### L 100.0100, L500.2500 ####[facility] [address] [place], [address] Hemoglobin (Bld) [Mass/Vol] 6.4 g/dL Low 12.0-15.0 [facility] Comment on above: Performed By: #### L 100.0100, L500.2500 ####[facility] [address] [place], [address] IG% 0.500 Normal 0.0-0.9 [facility] Comment on above: Result Comment: IG% - Immature Granulocytes (promyelocytes, myelocytes andmetamyelocytes) > 1% indicates that a LEFT SHIFT is Present. Performed By: #### L 100.0100, L500.2500 ####[facility] [address] [place], [address] Lymphocytes/100 WBC (Bld) 32.8 % Normal 19-41 [facility] Comment on above: Performed By: #### L 100.0100, L500.2500 ####[facility] [address] [place], [address] MCH (RBC) [Entitic mass] 30.2 pg Normal 27.0-32.0 [facility] Comment on above: Performed By: #### L 100.0100, L500.2500 ####[facility] [address] [place], [address] MCHC (RBC) [Mass/Vol] 29.9 g/dL Low 32-36 [facility] Comment on above: Performed By: #### L 100.0100, L500.2500 ####[facility] [address] [place], [address] MCV (RBC) [Entitic vol] 100.9 fL High 81-99 [facility] Comment on above: Performed By: #### L 100.0100, L500.2500 ####[facility] [address] [place], [address] Monocytes/100 WBC (Bld) 9.1 % Normal 0-10 [facility] Comment on above: Performed By: #### L 100.0100, L500.2500 ####[facility] [address] [place], [address] Neutrophils/100 WBC (Bld) 54.9 % Normal 47-70 [facility] Comment on above: Performed By: #### L 100.0100, L500.2500 ####[facility] [address] [place], [address] Nucleated RBC (Bld) [#/Vol] 0 10*3/uL Normal 0-5 [facility] Comment on above: Performed By: #### L 100.0100, L500.2500 ####[facility] [address] [place], [address] Platelet mean volume (Bld) [Entitic vol] 11.0 fL Normal 6.2-12.0 [facility] Comment on above: Performed By: #### L 100.0100, L500.2500 ####[facility] [address] [place], [address] Platelets (Bld) [#/Vol] 161 10*3/uL Normal 150-450 [facility] Comment on above: Performed By: #### L 100.0100, L500.2500 ####[facility] [address] [place], [address] RBC (Bld) [#/Vol] 2.12 10*6/uL Low 4.2-5.4 [facility] Comment on above: Performed By: #### L 100.0100, L500.2500 ####[facility] [address] [place], [address] RDW SD 59.7 fl High 35.1-43.9 [facility] Comment on above: Performed By: #### L 100.0100, L500.2500 ####[facility] [address] [place], [address] WBC (Bld) [#/Vol] 4.1 10*3/uL Low 4.4-11.0 [facility] Comment on above: Performed By: #### L 100.0100, L500.2500 ####[facility] [address] [place], [address] Carbon dioxide measurementOr dered By: Alfredo Sr on 05-10-2024 CO2 [Moles/Vol] 25.0 mmol/L 21.0-32.0 [facility] Chest PA and Lateralon 05-10 Chest PA and Lateral Normal [facility] Chloride measurementOrdered By: Alfredo Sr on 05-10-2024 Chloride [Moles/Vol] 103 mmol/L 98-107 [facility] Emergency Department Summary on 05-10-2024 Emergency Department Summary Normal [facility] Eosinophil percentageOrdered By: Alfredo Sr on 05-10-2024 Eosinophils/100 WBC (Bld) 2.5 % 0-5 [facility] Erythrocyte distribution wid th ratioOrdered By: Alfredo Sr on 05-10-2024 Erythrocyte distribution width (RBC) [Ratio] 17.2 % High 11.6-14.6 [facility] Erythrocyte distribution wid th standard deviationOrdered By: Alfredo Sr on 05-10-2024 Erythrocyte distribution width (RBC) [Entitic vol] 59.7 fL High 35.1-43.9 [facility] Estimated glomerular filtrat ion rate (GFR) AmericanOrdered By: Alfredo Sr on 05-10-2024 Estimated GFR (MDRD) Amer 148 mL/min >60 [facility] Comment on above: GFR Calc Estimation of creatinine javi aranceOrdered By: Alfredo Sr on 05-10-2024 Estimated Creatinine Clearance Calc 117.77 ml/min [facility] Glomerular filtration rate ( GFR) estimationOrdered By: Alfredo Sr on 05-10-2024 Estimated GFR (MDRD) Non-Af Amer 122 mL/min >60 [facility] Comment on above: Non- GFR Calc Glucose measurementOrdered B y: Alfredo Sr on 05-10-2024 Glucose [Mass/Vol] 84 mg/dL 74-106 [facility] Hematocrit Auto (Bld) [Volum e fraction]Ordered By: Alfredo Sr on 05-10-2024 Hematocrit (Bld) [Volume fraction] 21.4 % Low 37-47 [facility] Hemoglobin measurementOrdere d By: Alfredo Sr on 05-10-2024 Hemoglobin (Bld) [Mass/Vol] 6.4 g/dL Low 12.0-15.0 [facility] Immature granulocytes/100 WB C Auto (Bld)Ordered By: Alfredo Sr on 05-10-2024 Immature granulocytes/100 WBC (Bld) 0.500 % 0.0-0.9 [facility] Comment on above: IG% - Immature Granu locytes (promyelocytes, myelocytes and metamyelocytes) > 1% indicates that a LEFT SHIFT is Present. Influenza virus A and B and SARS-CoV-2 (COVID-19) and Respiratory syncytial virus RNAOrdered By: Alfredo Sr on 05-10-2024 SARS-CoV-2 (COVID-19) RNA [place]+probe Ql (Unsp spec) [facility] Lower GI hemoglobin IA Ql (S tl)Ordered By: Alfredo Sr on 05-10-2024 Stool Occult Blood (ALIX) Positive Abnormal [facility] Lymphocytes Auto (Unsp spec) [#/Vol]Ordered By: Alfredo Sr on 05-10-2024 Lymphocytes (Bld) [#/Vol] 1.34 10*3/uL 0.83-4.51 [facility] Lymphocytes/100 WBC Auto (Un sp spec)Ordered By: Alfredo Sr on 05-10-2024 Lymphocytes/100 WBC (Bld) 32.8 % 19-41 [facility] M100.678on 05-10-2024 M100.678 Pending SARS-CoV-2 (COVID 19) Negative INFLUENZA A Negative INFLUENZA B Negative RSV PCR Negative Normal [facility] Comment on above: Performed By: #### M 100.678 ####[facility] [address] [place], [address] MCV (mean corpuscular volume ) determinationOrdered By: Alfredo Sr on 05-10-2024 MCV (RBC) [Entitic vol] 100.9 fL High 81-99 [facility] Mean corpuscular hemoglobin (MCH) determinationOrdered By: Alfredo Sr on 05-10-2024 MCH (RBC) [Entitic mass] 30.2 pg 27.0-32.0 [facility] Mean corpuscular hemoglobin concentration (MCHC) determinationOrdered By: Alfredo Sr on 05-10-2024 MCHC (RBC) [Mass/Vol] 29.9 g/dL Low 32-36 [facility] Mean platelet volume determi nationOrdered By: Alfredo Sr on 05-10-2024 Platelet mean volume (Bld) [Entitic vol] 11.0 fL 6.2-12.0 [facility] Monocyte percentageOrdered B y: Alfredo Sr on 05-10-2024 Monocytes/100 WBC (Bld) 9.1 % 0-10 [facility] Neutrophil percentageOrdered By: Alfredo Sr on 05-10-2024 Neutrophils/100 WBC (Bld) 54.9 % 47-70 [facility] Nucleated red blood cell per centageOrdered By: Alfredo Sr on 05-10-2024 Nucleated RBC/100 WBC (Bld) [Ratio] 0 % 0-5 [facility] Platelet countOrdered By: Clay Sr on 05-10-2024 Platelets (Bld) [#/Vol] 161 10*3/uL 150-450 [facility] Potassium measurementOrdered By: Alfredo Sr on 05-10-2024 Potassium [Moles/Vol] 4.5 mmol/L 3.5-5.1 [facility] RBC Auto (Bld) [#/Vol]Ordere d By: Alfredo Sr on 05-10-2024 RBC (Bld) [#/Vol] 2.12 10*6/uL Low 4.2-5.4 [facility] Serum anion gap measurementO rdered By: Alfredo Sr on 05-10-2024 Anion gap [Moles/Vol] 5 mmol/L 5-15 [facility] Serum or plasma calcium hailee urement (mass/volume)Ordered By: Alfredo Sr on 05-10-2024 Calcium [Mass/Vol] 8.3 mg/dL Low 8.5-10.1 [facility] Serum or plasma creatinine m easurement (mass/volume)Ordered By: Alfredo Sr on 05-10-2024 Creatinine [Mass/Vol] 0.54 mg/dL Low 0.55-1.02 [facility] Comment on above: The validity of the calculated GFR & GFRAA in patients over 70 years has not been determined. Clinical correlation is essential. Serum or plasma urea nitroge n measurement (mass/volume)Ordered By: Alfredo Sr on 05-10-2024 Urea nitrogen [Mass/Vol] 16 mg/dL 7-18 [facility] Sodium levelOrdered By: Abundio Sr on 05-10-2024 Sodium [Moles/Vol] 133 mmol/L Low 136-145 [facility] Stool Occult Blood iFOBon STOB Positive Normal [facility] Comment on above: Performed By: #### B NAMRATA, [facility], M100.7900 ####[facility] [address] [place], [place], [address] Type AND Screenon 05-10-2024 ABO and Rh group Nom (Bld) Blood group A Rh(D) positive Normal [facility] Comment on above: Order Comment: CMV N EG? NNumber of units to transfuse: 1Is pt's Hgb is = to 7.0 mg/dl or Hct </= 21%? YReason for Ordering Blood: ChronicAre the blood/blood products to be transfused? YIs the patient having/had surgery? NWobey [place] Performed By: #### B NAMRATA, [facility], M100.7900 ####[facility] [address] [place], [place], [address] White blood cell (WBC) count Ordered By: Alfredo Sr on 05-10-2024 WBC (Bld) [#/Vol] 4.1 10*3/uL Low 4.4-11.0 [facility] OT Functional Capacity Evalo n 05-06-2024 OT Functional Capacity Eval Normal [facility] Lipid 1996 panelon 4 Cholesterol [Mass/Vol] 122 mg/dL Normal <200 [facility] Comment on above: Order Comment: Speci men Type: BLOOD SPECIMENOrdering Facility: [facility] Address: [address] [place] [address] Result Comment: <200 mg/dL, Desirable 200-239 mg/dL, Borderline high >239 mg/dL, High Performed By: #### 2 4331-1 ####[facility] LABCLIA [id number] [id number] [address] [place] Cholesterol in HDL [Mass/Vol] 44 mg/dL Normal >39 [facility] Comment on above: Order Comment: Speci men Type: BLOOD SPECIMENOrdering Facility: [facility] Address: [address] [place] [address] Result Comment: 40-5 9 mg/dL, Acceptable >59 mg/dL, High: Negative risk factor for coronary heart disease <40 mg/dL, Low: Positive risk factor for coronary heart disease Performed By: #### 2 4331-1 ####[facility] LABCLIA [id number] [place] [address] [place] Cholesterol in LDL [Mass/Vol] 67 mg/dL Normal <100 [facility] Comment on above: Order Comment: Speci men Type: BLOOD SPECIMENOrdering Facility: [facility] Address: [address] [place] [address] Result Comment: <100 mg/dL, Optimal 100-129 mg/dL, Near optimal/above optimal 130-159 mg/dL, Borderline high 160-189 mg/dL, High >189 mg/dL, Very high Secondary prevention optimal LDL Cholesterol levels are recommended to be < 70 mg/dL Performed By: #### 2 4331-1 ####[facility] LABCLIA [id number] [address] [place] Cholesterol in LDL/Cholesterol in HDL [Mass ratio] 1.52 {ratio} Normal <2.54 [facility] Comment on above: Order Comment: Speci men Type: BLOOD SPECIMENOrdering Facility: [facility] Address: [address] [place] [address] Result Comment: Refe rence: 1. National Cholesterol Education Program ATP III Guideline At-A-Glance Quick Desk Reference: National Heart, Lung, and Blood [place]. National Institutes of Health. 2001: NIH Publication No. 01-3305. 2. An International Atherosclerosis Society position paper: global recommendations for the management of dyslipidemia: executive summary, Atherosclerosis. 2014: 232(2):410-413. Performed By: #### 2 4331-1 ####[facility] LABCLIA [id number] [place] [address] [place] Cholesterol in VLDL [Mass/Vol] 11 mg/dL Normal <30 [facility] Comment on above: Order Comment: Speci men Type: BLOOD SPECIMENOrdering Facility: [facility] Address: [address] [place] [address] Performed By: #### 2 4331-1 ####[facility] LABCLIA [id number] [place] [address] [place] Cholesterol non HDL [Mass/Vol] 78 mg/dL Normal <130 [facility] Comment on above: Order Comment: Speci men Type: BLOOD SPECIMENOrdering Facility: [facility] Address: [address] [place] [address] Result Comment: <130 mg/dL, Optimal 130-159 mg/dL, Near optimal/above optimal 160-189 mg/dL, Borderline high 190-219 mg/dL, High >219 mg/dL, Very high Secondary prevention optimal non HDL Cholesterol levels are recommended to be <100 mg/dL Performed By: #### 2 4331-1 ####[facility] LABCLIA [id number] [place] [address] [place] Cholesterol.total/Chol esterol in HDL [Mass ratio] 2.77 {ratio} Normal <5.10 [facility] Comment on above: Order Comment: Speci men Type: BLOOD SPECIMENOrdering Facility: [facility] Address: [address] [place], [place] [address] Performed By: #### 2 4331-1 ####[facility] LABCLIA [id number] [place] [address] [place] FASTING TIME 14 hrs Normal [facility] Comment on above: Order Comment: Speci men Type: BLOOD SPECIMENOrdering Facility: [facility] Address: [address] [place] [address] Performed By: #### 2 4331-1 ####[facility] LABCLIA [id number] [place] [address] [place] Triglyceride [Mass/Vol] 55 mg/dL Normal <150 [facility] Comment on above: Order Comment: Speci men Type: BLOOD SPECIMENOrdering Facility: [facility] Address: [address] [place] [address] Result Comment: <150 mg/dL, Normal 150-199 mg/dL, Borderline high 200-499 mg/dL, High >499 mg/dL, Very high Performed By: #### 2 4331-1 ####[facility] LABCLIA [id number] [facility] [address] [place] [address] [facility] CNPNon 05-01-2024 CNPN Telephone (INTMWS) CASSIA HOLLAND ([id number]) 1965 F Date Time Provider Department 05/01/24 OPAL MATHEWS INTWS During your visit today, we recorded the following information about you: Ellis Sykes MA 05/01/2024 1:43 PM Signed Received PA request from Jorge Garcia for Budesonide. Prior Authorization has been completed online at [employer] for Budesonide, will await response. [id number] Please keep encounter open until final decision has been received and documented from insurance company. Ellis Bateman MA, MA 05/05/2024 5:18 PM Signed PA for budesonide is not covered due to no trail/failure of formulary brand. Called patient and she is aware will need to call [facility] to get covered alternatives than let office [...] Fully Assessed Reason for Visit: Insurance Authorization [[id number]] Cmt: Budesonide Prescriptions as of 05/20/2024 - [...] directed for severe allergic reaction - lancets ([employer] CoatingTOUCH DELICA PLUS LANCET) 33 gauge Test blood sugar(s) 1 times daily. Dx: Type 2 DM - Controlled E11.9 Insulin: No - blood sugar diagnostic ([employer] Cry[employer] CoatingTOUCH ULTRA TEST) test strip use 1 TEST [...] Status:Closed by ELLIS SYKES on 05/20/24 Normal [facility] 12 Lead EKGon 04-27-2024 12 Lead EKG Normal [facility] Absolute neutrophil countOrd ered By: Jian Nazario on 04-27-2024 Neutrophils (Bld) [#/Vol] 2.5 10*3/uL 2.0-7.7 [facility] Albumin to globulin ratioOrd ered By: Jian Nazario on 04-27-2024 Albumin/Globulin [Mass ratio] 0.9 {ratio} 0.9-2.4 [facility] Basophil percentageOrdered B y: Jian Nazario on 04-27-2024 Basophils/100 WBC (Bld) 0.2 % 0-1 [facility] Bilirubin, totalOrdered By: Jian Nazario on 04-27-2024 Bilirubin [Mass/Vol] 0.30 mg/dL 0.20-1.00 [facility] Comment on above: For patients on eltr ombopag therapy, use of Dimension [place] TBIL is not recommended. Blood urea nitrogen (BUN)/cr eatinine ratioOrdered By: Jian Nazario on 04-27-2024 Urea nitrogen/Creatinine [Mass ratio] 39.0 mg/mg High 10- [facility] Brain/Head without Contrasto n 04-27-2024 Brain/Head without Contrast Normal [facility] CBC W/Diff, Automatedon 12- Absolute Lymph 1.13 X10 3/uL Normal 0.83-4.51 [facility] Comment on above: Performed By: #### L 500.4050, L501.9520, L100.0100, L501.4020 ####[facility] [address] [place], [address] Absolute Neut 2.5 X10 3/uL Normal 2.0-7.7 [facility] Comment on above: Performed By: #### L 500.4050, L501.9520, L100.0100, L501.4020 ####[facility] [address] [place], [address] Basophils/100 WBC (Bld) 0.2 % Normal 0-1 [facility] Comment on above: Performed By: #### L 500.4050, L501.9520, L100.0100, L501.4020 ####[facility] [address] [place], [address] Eosinophils/100 WBC (Bld) 3.2 % Normal 0-5 [facility] Comment on above: Performed By: #### L 500.4050, L501.9520, L100.0100, L501.4020 ####[facility] [address] [place], [address] Erythrocyte distribution width (RBC) [Ratio] 14.3 % Normal 11.6-14.6 [facility] Comment on above: Performed By: #### L 500.4050, L501.9520, L100.0100, L501.4020 ####[facility] [address] [place], [address] Hematocrit (Bld) [Volume fraction] 24.6 % Low 37-47 [facility] Comment on above: Performed By: #### L 500.4050, L501.9520, L100.0100, L501.4020 ####[facility] [address] [place], [address] Hemoglobin (Bld) [Mass/Vol] 7.5 g/dL Low 12.0-15.0 [facility] Comment on above: Performed By: #### L 500.4050, L501.9520, L100.0100, L501.4020 ####[facility] [address] [place], [address] IG% 0.500 Normal 0.0-0.9 [facility] Comment on above: Result Comment: IG% - Immature Granulocytes (promyelocytes, myelocytes andmetamyelocytes) > 1% indicates that a LEFT SHIFT is Present. Performed By: #### L 500.4050, L501.9520, L100.0100, L501.4020 ####[facility] [address] [place], [address] Lymphocytes/100 WBC (Bld) 26.0 % Normal 19-41 [facility] Comment on above: Performed By: #### L 500.4050, L501.9520, L100.0100, L501.4020 ####[facility] [address] [place], [address] MCH (RBC) [Entitic mass] 30.1 pg Normal 27.0-32.0 [facility] Comment on above: Performed By: #### L 500.4050, L501.9520, L100.0100, L501.4020 ####[facility] [address] [place], [address] MCHC (RBC) [Mass/Vol] 30.5 g/dL Low 32-36 [facility] Comment on above: Performed By: #### L 500.4050, L501.9520, L100.0100, L501.4020 ####[facility] [address] [place], [address] MCV (RBC) [Entitic vol] 98.8 fL Normal 81-99 [facility] Comment on above: Performed By: #### L 500.4050, L501.9520, L100.0100, L501.4020 ####[facility] [address] [place], [address] Monocytes/100 WBC (Bld) 11.5 % High 0-10 [facility] Comment on above: Performed By: #### L 500.4050, L501.9520, L100.0100, L501.4020 ####[facility] [address] [place], [address] Neutrophils/100 WBC (Bld) 58.6 % Normal 47-70 [facility] Comment on above: Performed By: #### L 500.4050, L501.9520, L100.0100, L501.4020 ####[facility] [address] [place], [address] Nucleated RBC (Bld) [#/Vol] 0 10*3/uL Normal 0-5 [facility] Comment on above: Performed By: #### L 500.4050, L501.9520, L100.0100, L501.4020 ####[facility] [address] [place], [address] Platelet mean volume (Bld) [Entitic vol] 11.7 fL Normal 6.2-12.0 [facility] Comment on above: Performed By: #### L 500.4050, L501.9520, L100.0100, L501.4020 ####[facility] [address] [place], [address] Platelets (Bld) [#/Vol] 164 10*3/uL Normal 150-450 [facility] Comment on above: Performed By: #### L 500.4050, L501.9520, L100.0100, L501.4020 ####[facility] [address] [place], [address] RBC (Bld) [#/Vol] 2.49 10*6/uL Low 4.2-5.4 [facility] Comment on above: Performed By: #### L 500.4050, L501.9520, L100.0100, L501.4020 ####[facility] [address] [place], [address] RDW SD 50.8 fl High 35.1-43.9 [facility] Comment on above: Performed By: #### L 500.4050, L501.9520, L100.0100, L501.4020 ####[facility] [address] [place], [address] WBC (Bld) [#/Vol] 4.3 10*3/uL Low 4.4-11.0 [facility] Comment on above: Performed By: #### L 500.4050, L501.9520, L100.0100, L501.4020 ####[facility] [address] [place], [address] Carbon dioxide measurementOr dered By: Jian Nazario on 04-27-2024 CO2 [Moles/Vol] 26.0 mmol/L 21.0-32.0 [facility] Chest 1 View (Portable)on Chest 1 View (Portable) Normal [facility] Chloride measurementOrdered By: Jian Nazario on 04-27-2024 Chloride [Moles/Vol] 104 mmol/L 98-107 [facility] Comprehensive Metabolic Prof ilon 04-27-2024 Albumin [Mass/Vol] 3.1 g/dL Low 3.2-5.0 [facility] Comment on above: Order Comment: 'TROP ' Serial specimen #1, #2 or #3: 1 Performed By: #### L 500.4050, L501.9520, L100.0100, L501.4020 ####[facility] [address] [place], [address] Albumin/Globulin [Mass ratio] 0.9 {ratio} Normal 0.9-2.4 [facility] Comment on above: Order Comment: 'TROP ' Serial specimen #1, #2 or #3: 1 Performed By: #### L 500.4050, L501.9520, L100.0100, L501.4020 ####[facility] [address] [place], [address] ALK P 84 U/L Normal 45-117 [facility] Comment on above: Order Comment: 'TROP ' Serial specimen #1, #2 or #3: 1 Performed By: #### L 500.4050, L501.9520, L100.0100, L501.4020 ####[facility] [address] [place], [address] ALT [Catalytic activity/Vol] 52 U/L Normal 13-56 [facility] Comment on above: Order Comment: 'TROP ' Serial specimen #1, #2 or #3: 1 Performed By: #### L 500.4050, L501.9520, L100.0100, L501.4020 ####[facility] [address] [place], [address] AST [Catalytic activity/Vol] 39 U/L High 15-37 [facility] Comment on above: Order Comment: 'TROP ' Serial specimen #1, #2 or #3: 1 Performed By: #### L 500.4050, L501.9520, L100.0100, L501.4020 ####[facility] [address] [place], [address] Bilirubin [Mass/Vol] 0.30 mg/dL Normal 0.20-1.00 [facility] Comment on above: Order Comment: 'TROP ' Serial specimen #1, #2 or #3: 1 Result Comment: For patients on eltrombopag therapy, use of Dimension [place] TBIL is not recommended. Performed By: #### L 500.4050, L501.9520, L100.0100, L501.4020 ####[facility] [address] [place], [address] BUN/CRE 39.0 RATIO High 10-20 [facility] Comment on above: Order Comment: 'TROP ' Serial specimen #1, #2 or #3: 1 Performed By: #### L 500.4050, L501.9520, L100.0100, L501.4020 ####[facility] [address] [place], [address] CA,Total 8.4 mg/dL Low 8.5-10.1 [facility] Comment on above: Order Comment: 'TROP ' Serial specimen #1, #2 or #3: 1 Performed By: #### L 500.4050, L501.9520, L100.0100, L501.4020 ####[facility] [address] [place], [address] Chloride [Moles/Vol] 104 mmol/L Normal 98-107 [facility] Comment on above: Order Comment: 'TROP ' Serial specimen #1, #2 or #3: 1 Performed By: #### L 500.4050, L501.9520, L100.0100, L501.4020 ####[facility] [address] [place], [address] CO2 [Moles/Vol] 26.0 mmol/L Normal 21.0-32.0 [facility] Comment on above: Order Comment: 'TROP ' Serial specimen #1, #2 or #3: 1 Performed By: #### L 500.4050, L501.9520, L100.0100, L501.4020 ####[facility] [address] [place], [address] Creatinine [Mass/Vol] 0.54 mg/dL Low 0.55-1.02 [facility] Comment on above: Order Comment: 'TROP ' Serial specimen #1, #2 or #3: 1 Result Comment: The validity of the calculated GFR GFRAA in patients over70 years has not been determined. Clinical correlation isessential. Performed By: #### L 500.4050, L501.9520, L100.0100, L501.4020 ####[facility] [address] [place], [address] ECRCL 118.45 ml/min Normal [facility] Comment on above: Order Comment: 'TROP ' Serial specimen #1, #2 or #3: 1 Performed By: #### L 500.4050, L501.9520, L100.0100, L501.4020 ####[facility] [address] [place], [address] EST GFR - AA 149 mL/min Normal >60 [facility] Comment on above: Order Comment: 'TROP ' Serial specimen #1, #2 or #3: 1 Result Comment: Afri can Norwegian GFR Calc Performed By: #### L 500.4050, L501.9520, L100.0100, L501.4020 ####[facility] [address] [place], [address] GAP 5 Normal 5-15 [facility] Comment on above: Order Comment: 'TROP ' Serial specimen #1, #2 or #3: 1 Performed By: #### L 500.4050, L501.9520, L100.0100, L501.4020 ####[facility] [address] [place], [address] GFR/1.73 sq M.predicted among non-blacks MDRD (S/P/Bld) [Vol rate/Area] 123 mL/min/{1.73_m2} Normal >60 [facility] Comment on above: Order Comment: 'TROP ' Serial specimen #1, #2 or #3: 1 Result Comment: Non- GFR Calc Performed By: #### L 500.4050, L501.9520, L100.0100, L501.4020 ####[facility] [address] [place], [address] Globulin (S) [Mass/Vol] 3.3 g/dL Normal 2.2-4.2 [facility] Comment on above: Order Comment: 'TROP ' Serial specimen #1, #2 or #3: 1 Performed By: #### L 500.4050, L501.9520, L100.0100, L501.4020 ####[facility] [address] [place], [address] Glucose [Mass/Vol] 117 mg/dL High 74-106 [facility] Comment on above: Order Comment: 'TROP ' Serial specimen #1, #2 or #3: 1 Result Comment: Fast ing Glucose result from 100 to 125 mg/dLsuggests IMPAIRED HOMEOSTASIS per A.D.A. criteria. Performed By: #### L 500.4050, L501.9520, L100.0100, L501.4020 ####[facility] [address] [place], [address] Potassium [Moles/Vol] 4.8 mmol/L Normal 3.5-5.1 [facility] Comment on above: Order Comment: 'TROP ' Serial specimen #1, #2 or #3: 1 Performed By: #### L 500.4050, L501.9520, L100.0100, L501.4020 ####[facility] [address] [place], [address] Sodium [Moles/Vol] 135 mmol/L Low 136-145 [facility] Comment on above: Order Comment: 'TROP ' Serial specimen #1, #2 or #3: 1 Performed By: #### L 500.4050, L501.9520, L100.0100, L501.4020 ####[facility] [address] [place], [address] T PROT 6.4 g/dL Normal 6.4-8.2 [facility] Comment on above: Order Comment: 'TROP ' Serial specimen #1, #2 or #3: 1 Performed By: #### L 500.4050, L501.9520, L100.0100, L501.4020 ####[facility] [address] [place], [address] Urea nitrogen [Mass/Vol] 21 mg/dL High 7-18 [facility] Comment on above: Order Comment: 'TROP ' Serial specimen #1, #2 or #3: 1 Performed By: #### L 500.4050, L501.9520, L100.0100, L501.4020 ####[facility] [address] [place], [address] Emergency Department Summary on 04-27-2024 Emergency Department Summary Normal [facility] Eosinophil percentageOrdered By: Jian Nazario on 04-27-2024 Eosinophils/100 WBC (Bld) 3.2 % 0-5 [facility] Erythrocyte distribution wid th ratioOrdered By: Jian Nazario on 04-27-2024 Erythrocyte distribution width (RBC) [Ratio] 14.3 % 11.6-14.6 [facility] Erythrocyte distribution wid th standard deviationOrdered By: Jian Nazario on 04-27-2024 Erythrocyte distribution width (RBC) [Entitic vol] 50.8 fL High 35.1-43.9 [facility] Estimated glomerular filtrat ion rate (GFR) AmericanOrdered By: Jian Nazario on 04-27-2024 Estimated GFR (MDRD) Amer 149 mL/min >60 [facility] Comment on above: GFR Calc Estimation of creatinine javi aranceOrdered By: Jian Nazario on 04-27-2024 Estimated Creatinine Clearance Calc 118.45 ml/min [facility] Glomerular filtration rate ( GFR) estimationOrdered By: Jian Nazario on 04-27-2024 Estimated GFR (MDRD) Non-Af Amer 123 mL/min >60 [facility] Comment on above: Non- GFR Calc Glucose measurementOrdered B y: Jian Nazario on 04-27-2024 Glucose [Mass/Vol] 117 mg/dL High 74-106 [facility] Comment on above: Fasting Glucose resu lt from 100 to 125 mg/dL suggests IMPAIRED HOMEOSTASIS per A.D.A. criteria. Hematocrit Auto (Bld) [Volum e fraction]Ordered By: Jian Nazario on 04-27-2024 Hematocrit (Bld) [Volume fraction] 24.6 % Low 37-47 [facility] Hemoglobin measurementOrdere d By: Jian Nazario on 04-27-2024 Hemoglobin (Bld) [Mass/Vol] 7.5 g/dL Low 12.0-15.0 [facility] Immature granulocytes/100 WB C Auto (Bld)Ordered By: Jian Nazario on 04-27-2024 Immature granulocytes/100 WBC (Bld) 0.500 % 0.0-0.9 [facility] Comment on above: IG% - Immature Granu locytes (promyelocytes, myelocytes and metamyelocytes) > 1% indicates that a LEFT SHIFT is Present. L501.4020on 04-27-2024 TROPONIN-I HS 3 pg/mL Normal 3.0-54.0 [facility] Comment on above: Order Comment: 'TROP ' Serial specimen #1, #2 or #3: 1 Result Comment: Plea se Note: New Test Units and Gender Specific Reference Ranges. For more information see Policy Stat Procedure [place] High Sensitivity Troponin (TNIH) and attachments. Performed By: #### L 500.4050, L501.9520, L100.0100, L501.4020 ####[facility] [address] [place], [address] Laboratory - Chemistry and C hemistry - challengeOrdered By: Jian Nazario on 04-27-2024 AST [Catalytic activity/Vol] 39 U/L High 15-37 [facility] Lymphocytes Auto (Unsp spec) [#/Vol]Ordered By: Jian Nazario on 04-27-2024 Lymphocytes (Bld) [#/Vol] 1.13 10*3/uL 0.83-4.51 [facility] Lymphocytes/100 WBC Auto (Un sp spec)Ordered By: Jian Nazario on 04-27-2024 Lymphocytes/100 WBC (Bld) 26.0 % 19-41 [facility] MCV (mean corpuscular volume ) determinationOrdered By: Jian Nazario on 04-27-2024 MCV (RBC) [Entitic vol] 98.8 fL 81-99 [facility] Mean corpuscular hemoglobin (MCH) determinationOrdered By: Jian Nazario on 04-27-2024 MCH (RBC) [Entitic mass] 30.1 pg 27.0-32.0 [facility] Mean corpuscular hemoglobin concentration (MCHC) determinationOrdered By: Jian Nazario on 04-27-2024 MCHC (RBC) [Mass/Vol] 30.5 g/dL Low 32-36 [facility] Mean platelet volume determi nationOrdered By: Jian Nazario on 04-27-2024 Platelet mean volume (Bld) [Entitic vol] 11.7 fL 6.2-12.0 [facility] Monocyte percentageOrdered B y: Jian Nazario on 04-27-2024 Monocytes/100 WBC (Bld) 11.5 % High 0-10 [facility] Neutrophil percentageOrdered By: Jian Nazario on 04-27-2024 Neutrophils/100 WBC (Bld) 58.6 % 47-70 [facility] Nucleated red blood cell per centageOrdered By: Jian Nazario on 04-27-2024 Nucleated RBC/100 WBC (Bld) [Ratio] 0 % 0-5 [facility] Platelet countOrdered By: Cecilio Nazario on 04-27-2024 Platelets (Bld) [#/Vol] 164 10*3/uL 150-450 [facility] Potassium measurementOrdered By: Jian Nazario on 04-27-2024 Potassium [Moles/Vol] 4.8 mmol/L 3.5-5.1 [facility] RBC Auto (Bld) [#/Vol]Ordere d By: Jian Nazario on 04-27-2024 RBC (Bld) [#/Vol] 2.49 10*6/uL Low 4.2-5.4 [facility] Serum anion gap measurementO rdered By: Jian Nazario on 04-27-2024 Anion gap [Moles/Vol] 5 mmol/L 5-15 [facility] Serum globulin measurementOr dered By: Jian Nazario on 04-27-2024 Globulin (S) [Mass/Vol] 3.3 g/dL 2.2-4.2 [facility] Serum or plasma alanine amaro otransferase (ALT) measurementOrdered By: Jian Nazario on 04-27-2024 ALT [Catalytic activity/Vol] 52 U/L 13-56 [facility] Serum or plasma albumin hailee urement (mass/volume)Ordered By: Jian Nazario on 04-27-2024 Albumin [Mass/Vol] 3.1 g/dL Low 3.2-5.0 [facility] Serum or plasma alkaline caren sphatase measurementOrdered By: Jian Nazario on 04-27-2024 ALP [Catalytic activity/Vol] 84 U/L 45-117 [facility] Serum or plasma calcium hailee urement (mass/volume)Ordered By: Jian Nazario on 04-27-2024 Calcium [Mass/Vol] 8.4 mg/dL Low 8.5-10.1 [facility] Serum or plasma creatinine m easurement (mass/volume)Ordered By: Jian Nazario on 04-27-2024 Creatinine [Mass/Vol] 0.54 mg/dL Low 0.55-1.02 [facility] Comment on above: The validity of the calculated GFR & GFRAA in patients over 70 years has not been determined. Clinical correlation is essential. Serum or plasma urea nitroge n measurement (mass/volume)Ordered By: Jian Nazario on 04-27-2024 Urea nitrogen [Mass/Vol] 21 mg/dL High 7-18 [facility] Sodium levelOrdered By: Pooja Nazario on 04-27-2024 Sodium [Moles/Vol] 135 mmol/L Low 136-145 [facility] TSH QnOrdered By: Sudha on 04-27-2024 Thyroid Stimulating Hormone (TSH) 0.721 uIU/mL 0.358-3.74 0 [facility] Thyroid Stim Hormone (TSH)on 04-27-2024 TSH 0.721 uIU/mL Normal 0.358-3.74 0 [facility] Comment on above: Order Comment: 'TROP ' Serial specimen #1, #2 or #3: 1 Performed By: #### L 500.4050, L501.9520, L100.0100, L501.4020 ####[facility] [address] [place], [address] Total proteinOrdered By: Mindi Nazario on 04-27-2024 Protein [Mass/Vol] 6.4 g/dL 6.4-8.2 [facility] Troponin IOrdered By: Jian Nazario on 04-27-2024 Troponin I High Sensitivity 3 pg/mL 3.0-54.0 [facility] Comment on above: Please Note: New Vani t Units and Gender Specific Reference Ranges. For more information see Policy Stat Procedure [place] High Sensitivity Troponin (TNIH) and attachments. White blood cell (WBC) count Ordered By: Jian Nazario on 04-27-2024 WBC (Bld) [#/Vol] 4.3 10*3/uL Low 4.4-11.0 [facility] CNPNon 04-16-2024 CNPN Telephone ([place]) CASSIA HOLLAND ([id number]) 1965 F Date Time Provider Department 04/16/24 SHAHRIAR BROWN During your visit today, we recorded the following information about you: Shahriar Brown APRN.CNP 04/16/2024 11:12 AM Signed Forms for work reviewed but they are requesting detailed info like how much she can lift. This needs completed by functional capacity testing. Order placed. Thank you BOOKER Gonzalez Jane, MA 04/16/2024 2:14 PM Signed Patient notified, please assist in scheduling. Lissette Newton 04/18/2024 9:13 AM Signed 1st attempt to call patient to schedule test. Myrtle Velasco 04/21/2024 3:10 PM Signed Called patient to schedule test appt only location performing this test is [facility] [place],patient stated that she would check with [facility] if this is something that she could have done there if so she will call back to have us fax order. Marvel Rice RN 04/21/2024 3:25 PM Signed Patient returns call and reports that testing can be completed at [facility] and requests order be faxed. Faxed to [phone] per request. BRYAN Guaman Jane, MA 04/24/2024 [...] atrial fibrillation (HCC) [I48.0] Order(s):PHYSICAL PERFORMANCE TEST [[id number]] Order #: [id number] Prescriptions as of 04/24/2024 - tiZANidine HCl [...] directed for severe allergic reaction - lancets (Q[employer] Crystech CoatingTOUCH DELICA PLUS LANCET) 33 gauge Test blood [...] Status:Closed by MARVEL RICE on 04/21/24 Normal [facility] Cardiology Visit Reporton Cardiology Visit Report Normal [facility] CNOVon 03-28-2024 CNOV Office Visit (INTMWS ) CASSIA HOLLAND ([id number]) 1965 F Date Time Provider Department 03/28/24 1:00 PM SHAHRIAR BROWN During your visit today, we recorded the following information about you: Temperature Pulse Respiration Blood pressure 97.8 degrees 77/minute 16/minute 162/80 Weight 84.4 kg Shahriar Brown APRN.NURSE STAFF 03/28/2024 1:33 PM Signed CC: Patient presents [...] 180s systolic. 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 [...] per directed for severe allergic reaction lancets ([employer] Cryste[employer] CoatingTOUCH DELICA PLUS LANCET) 33 gauge Test blood [...] Use Smoking (more content not included)... Normal [facility] UA DIP, URINE (POC)on 2023 BILIRUBIN UA (POCT) Negative Negative [facility] CLARITY UA (POCT) Clear [facility] COLOR UA (POCT) Yellow [facility] GLUCOSE UA (POCT) Negative Negative mg/dL [facility] Hemoglobin Ql (U) Negative Negative [facility] KETONE UA (POCT) Negative Negative mg/dL [facility] LEUKOCYTES UA (POCT) Negative Negative [facility] NITRITE UA (POCT) Negative Negative [facility] PH UA (POCT) 7.0 4.5 - 8.0 [facility] Protein Ql (U) Negative Negative mg/dL [facility] SPECIFIC GRAVITY UA (POCT) 1.020 1.005 - 1.030 [facility] UROBILINOGEN UA (POCT) 0.2 Dee l E.U./dL [facility] Location:[address], [address] [place] [address] POINT OF CARE [facility] CBC W Auto Differential pane l (Bld)on 03-21-2024 Basophils (Bld) [#/Vol] 10*3/uL Normal <0.11 [facility] Comment on above: Order Comment: Speci men Type: BLOOD SPECIMENOrdering Facility: [facility] Address: [address] [place] [address] Performed By: #### 5 7021-8 ####[facility] LABCLIA [id number] [place] [address] [place] Basophils/100 WBC (Bld) 0.5 % Normal [facility] Comment on above: Order Comment: Speci men Type: BLOOD SPECIMENOrdering Facility: [facility] Address: [address] [place] [address] Performed By: #### 5 7021-8 ####[facility] LABCLIA [id number] [place] [address] [place] Differential cell count method Nom (Bld) Auto Normal [facility] Comment on above: Order Comment: Speci men Type: BLOOD SPECIMENOrdering Facility: [facility] Address: [address] [place] [address] Performed By: #### 5 7021-8 ####[facility] LABCLIA [id number] [place] [address] [place] Eosinophils (Bld) [#/Vol] 0.07 10*3/uL Normal <0.46 [facility] Comment on above: Order Comment: Speci men Type: BLOOD SPECIMENOrdering Facility: [facility] Address: [address] [place] [address] Performed By: #### 5 7021-8 ####[facility] LABCLIA [id number] [place] [address] [place] Eosinophils/100 WBC (Bld) 1.8 % Normal [facility] Comment on above: Order Comment: Speci men Type: BLOOD SPECIMENOrdering Facility: [facility] Address: [address] [place] [address] Performed By: #### 5 7021-8 ####[facility] LABCLIA [id number] [place] [address] [place] Erythrocyte distribution width (RBC) [Ratio] 13.0 % Normal 11.5-15.0 [facility] Comment on above: Order Comment: Speci men Type: BLOOD SPECIMENOrdering Facility: [facility] Address: [address] [place] [address] Performed By: #### 5 7021-8 ####[facility] LABCLIA [id number] [place] [address] [place] Hematocrit (Bld) [Volume fraction] 31.4 % Low 36.0-46.0 [facility] Comment on above: Order Comment: Speci men Type: BLOOD SPECIMENOrdering Facility: [facility] Address: [address] [place] [address] Performed By: #### 5 7021-8 ####[facility] LABCLIA [id number] [place] [address] [place] Hemoglobin (Bld) [Mass/Vol] 9.8 g/dL Low 11.5-15.5 [facility] Comment on above: Order Comment: Speci men Type: BLOOD SPECIMENOrdering Facility: [facility] Address: [address] [place] [address] Performed By: #### 5 7021-8 ####[facility]CLIA [id number] [place] [address] [place] Immature granulocytes (Bld) [#/Vol] 10*3/uL Normal <0.10 [facility] Comment on above: Order Comment: Speci men Type: BLOOD SPECIMENOrdering Facility: [facility] Address: [address] [place] [address] Performed By: #### 5 7021-8 ####[facility] LABCLIA [id number] [place] [address] [place] Immature granulocytes/100 WBC (Bld) 0.0 % Normal [facility] Comment on above: Order Comment: Speci men Type: BLOOD SPECIMENOrdering Facility: [facility] Address: [address] [place] [address] Performed By: #### 5 7021-8 ####[facility] LABCLIA [id number] [place] [address] [place] Lymphocytes (Bld) [#/Vol] 1.05 10*3/uL Normal 1.00-4.00 [facility] Comment on above: Order Comment: Speci men Type: BLOOD SPECIMENOrdering Facility: [facility] Address: [address] [place] [address] Performed By: #### 5 7021-8 ####[facility]CLIA [id number] [place] [address] [place] Lymphocytes/100 WBC (Bld) 27.1 % Normal [facility] Comment on above: Order Comment: Speci men Type: BLOOD SPECIMENOrdering Facility: [facility] Address: [address] [place] [address] Performed By: #### 5 7021-8 ####[facility] LABCLIA [id number] [place] [address] [place] MCH (RBC) [Entitic mass] 31.0 pg Normal 26.0-34.0 [facility] Comment on above: Order Comment: Speci men Type: BLOOD SPECIMENOrdering Facility: [facility] Address: [address] [place] [address] Performed By: #### 5 7021-8 ####[facility]CLIA [id number] [place] [address] [place] MCHC (RBC) [Mass/Vol] 31.2 g/dL Normal 30.5-36.0 [facility] Comment on above: Order Comment: Speci men Type: BLOOD SPECIMENOrdering Facility: [facility] Address: [address] [place] [address] Performed By: #### 5 7021-8 ####[facility]CLIA [id number] [place] [address] [place] MCV (RBC) [Entitic vol] 99.4 fL Normal 80.0-100.0 [facility] Comment on above: Order Comment: Speci men Type: BLOOD SPECIMENOrdering Facility: [facility] Address: [address] [place] [address] Performed By: #### 5 7021-8 ####[facility]CLIA [id number] [place] [address] [place] Monocytes (Bld) [#/Vol] 0.48 10*3/uL Normal <0.87 [facility] Comment on above: Order Comment: Speci men Type: BLOOD SPECIMENOrdering Facility: [facility] Address: [address] [place] [address] Performed By: #### 5 7021-8 ####[facility] LABCLIA [id number] [place] [address] [place] Monocytes/100 WBC (Bld) 12.4 % Normal [facility] Comment on above: Order Comment: Speci men Type: BLOOD SPECIMENOrdering Facility: [facility] Address: [address] [place] [address] Performed By: #### 5 7021-8 ####[facility] LABCLIA [id number] [place] [address] [place] Neutrophils (Bld) [#/Vol] 2.25 10*3/uL Normal 1.45-7.50 [facility] Comment on above: Order Comment: Speci men Type: BLOOD SPECIMENOrdering Facility: [facility] Address: [address] [place] [address] Performed By: #### 5 7021-8 ####[facility] LABCLIA [id number] [place] [address] [place] Neutrophils/100 WBC (Bld) 58.2 % Normal [facility] Comment on above: Order Comment: Speci men Type: BLOOD SPECIMENOrdering Facility: [facility] Address: [address] [place] [address] Performed By: #### 5 7021-8 ####[facility]CLIA [id number] [place] [address] [place] Nucleated RBC (Bld) [#/Vol] 10*3/uL Normal <0.01 [facility] Comment on above: Order Comment: Speci men Type: BLOOD SPECIMENOrdering Facility: [facility] Address: [address] [place] [address] Performed By: #### 5 7021-8 ####[facility] LABCLIA [id number] [place] [address] [place] Nucleated RBC/100 WBC (Bld) [Ratio] 0.0 /100 WBC Normal [facility] Comment on above: Order Comment: Speci men Type: BLOOD SPECIMENOrdering Facility: [facility] Address: [address] [place] [address] Performed By: #### 5 7021-8 ####[facility] LABIA [id number] [place] [address] [place] Platelet mean volume (Bld) [Entitic vol] 11.3 fL Normal 9.0-12.7 [facility] Comment on above: Order Comment: Speci men Type: BLOOD SPECIMENOrdering Facility: [facility] Address: [address] [place] [address] Performed By: #### 5 7021-8 ####[facility] LABIA [id number] [place] [address] [place] Platelets (Bld) [#/Vol] 172 10*3/uL Normal 150-400 [facility] Comment on above: Order Comment: Speci men Type: BLOOD SPECIMENOrdering Facility: [facility] Address: [address] [place] [address] Performed By: #### 5 7021-8 ####[facility] LABIA [id number] [place] [address] [place] RBC (Bld) [#/Vol] 3.16 10*6/uL Low 3.90-5.20 [facility] Comment on above: Order Comment: Speci men Type: BLOOD SPECIMENOrdering Facility: [facility] Address: [address] [place] [address] Performed By: #### 5 7021-8 ####[facility] LABIA [id number] [place] [address] [place] WBC (Bld) [#/Vol] 3.87 10*3/uL Normal 3.70-11.00 [facility] Comment on above: Order Comment: Speci men Type: BLOOD SPECIMENOrdering Facility: [facility] Address: [address] [place] [address] Performed By: #### 5 7021-8 ####[facility] LABCLIA [id number] [facility] [id number] [address] [place] Nasopharyngeal Cultureon NAC Normal [facility] Comment on above: Performed By: #### M 100.2500, M100.1999 ####[facility] [address] [place], [address] Gram Stainon 03-14-2024 GS Gram Stain 4+ White Blood Cells No organisms seen Normal [facility] Comment on above: Performed By: #### M 100.2500, M1.1999 ####[facility] [address] [place], [place], [address] ABD Limited w/ Elastographyo n 02-28-2024 ABD Limited w/ Elastography Normal [facility] ANCAon 02-19-2024 Atypical pANCA <1:20 Normal Neg:<1:20 [facility] Comment on above: Order Comment: N Result Comment: The atypical pANCA pattern has been observed in asignificant percentage of patients with ulcerative colitis,primary sclerosing cholangitis and autoimmune hepatitis.Performed at: [facility] [address] [id number] Director: Jose Castillo PhD, Phone: [phone] at: [facility] [address] [id number] Director: Brigido Mtz MD, Phone: [phone] Performed By: #### L 3100.3425, L506.0400, L100.0100, L501.28533, L3100.5440, L101.9900, L501.9520, L501.6710, L2100.0000, L500.4050, L3200.1100, L504.2610, L3300.1200, L3410.2400, L5500.0550 ####[facility] [address] [place], [place], [address] Cytoplasmic Ab <1:20 Normal Neg:<1:20 [facility] Comment on above: Order Comment: N Performed By: #### L 3100.3425, L506.0400, L100.0100, L501.27611, L3100.5440, L101.9900, L501.9520, L501.6710, L2100.0000, L500.4050, L3200.1100, L504.2610, L3300.1200, L3410.2400, L5500.0550 ####[facility] [address] [place], [place], [address] Perinuclear Ab. <1:20 Normal Neg:<1:20 [facility] Comment on above: Order Comment: N Result Comment: The presence of positive fluorescence exhibiting P-ANCA orC-ANCA patterns alone is not specific for the diagnosis ofWegener's Granulomatosis (WG) or microscopic polyangiitis.Decisions about treatment should not be based solely onANCA IFA results. The International ANCA Group Consensusrecommends follow up testing of positive sera with both WV-3 and MPO-ANCA enzyme immunoassays. As many as 5% serumsamples are positive only by EIA. Ref. AM J Clin Ewzaux4947;111:507-513. Performed By: #### L 3100.3425, L506.0400, L100.0100, L501.29612, L3100.5440, L101.9900, L501.9520, L501.6710, L2100.0000, L500.4050, L3200.1100, L504.2610, L3300.1200, L3410.2400, L5500.0550 ####[facility] [address] [place], [address] Kyle 02-19-2024 [facility] SKYLERCASSIA ([id number]) 1965 F Date Time Provider Department 02/19/24 SHAHRIAR BROWN During your visit today, we recorded the following information about you: Chloé Dhaliwal LPN 02/19/2024 1:42 PM Signed Pt had labs ordered AND drawn by [facility] on 02/14/24 AND wanted to be sure Shahriar looked at them, specifically the HGB which was low at 9.2. Please review in Shahriar's absence. FAHEEM Knapp Chitra, MD 02/19/2024 5:25 PM Signed Lab results are not emergent. Would route to Shahriar as I have not seen the patient recently Opal Cormier MD, Joy, APRN.NURSE STAFF 02/20/2024 8:24 AM Signed She has been varying in 9s to 10s over the past year. If no active bleeding or new/worsening concerns, we can recheck in 2-4 weeks. Thank you Shahriar Brown APRN.NURSE STAFF Julieta Campuzano MA 02/20/2024 8:46 AM Signed Patient notified. Allergies As of Date: 02/19/2024 Noted Allergy Reaction CANTALOUPE 01/22/2019 18 - Angioedema LEVAQUIN (LEVOFLOXACIN) 04/12/2021 2 - Rash SULFA (SULFONAMIDE ANTIBIOTICS) 01/22/2019 4 - Hives Date Reviewed: 02/14/2024 Reviewed by: Julieta Campuzano MA - Fully Assessed Reason for Visit: Results [95] Primary Visit Diagnosis:Anemia, unspecified type [D64.9] Order(s):COMPLETE BLOOD COUNT AND DIFFERENTIAL [SQCBCDIF] Order #: [id number] FUTURE Prescriptions as of 02/20/2024 - triamcinolone [...] directed for severe allergic reaction - lancets ([employer] Crystech CoatingTOUCH DELICA PLUS LANCET) 33 gauge Test blood [...] Diabetes (HCC) [E11.9] Hypertension [I10] Lupus (HCC) [GKE7735] Graves disease [E05.00] Raynaud disease [I73.00] Mixed connective tissue disease (HCC) [M35.1] Interstitial lung disease (HCC) [J84.9] Fibromyalgia [M79.7] Cervicalgia [M54.2] 04/07/2021 Encounter Status:Closed by JULIETA CAMPUZANO on 02/20/24 Normal [facility] Celiac Disease Profileon ENDOMYSIAL IGA Negative Normal Negative [facility] Comment on above: Order Comment: N Performed By: #### L 3100.3425, L506.0400, L100.0100, L501.11147, L3100.5440, L101.9900, L501.9520, L501.6710, L2100.0000, L500.4050, L3200.1100, L504.2610, L3300.1200, L3410.2400, L5500.0550 ####[facility] [address] [place], [address] tTG IGA <2 Normal 0-3 [facility] Comment on above: Order Comment: N Result Comment: Nega tive 0 - 3 Weak Positive 4 - 10 Positive >10 Tissue Transglutaminase (tTG) has been identified as the endomysial antigen. Studies have demonstr- ated that endomysial IgA antibodies have over 99% specificity for gluten sensitive enteropathy. Performed By: #### L 3100.3425, L506.0400, L100.0100, L501.54404, L3100.5440, L101.9900, L501.9520, L501.6710, L2100.0000, L500.4050, L3200.1100, L504.2610, L3300.1200, L3410.2400, L5500.0550 ####[facility] [address] [place], [address] TERESE + Protein Elect, Serumon 02-19-2024 Albumin [Mass/Vol] 3.7 g/dL Normal 2.9-4.4 [facility] Comment on above: Order Comment: N Performed By: #### L 3100.3425, L506.0400, L100.0100, L501.13500, L3100.5440, L101.9900, L501.9520, L501.6710, L2100.0000, L500.4050, L3200.1100, L504.2610, L3300.1200, L3410.2400, L5500.0550 ####[facility] [address] [place], [place], [phone]) Albumin/Globulin [Mass ratio] 1.3 {ratio} Normal 0.7-1.7 [facility] Comment on above: Order Comment: N Performed By: #### L 3100.3425, L506.0400, L100.0100, L501.10085, L3100.5440, L101.9900, L501.9520, L501.6710, L2100.0000, L500.4050, L3200.1100, L504.2610, L3300.1200, L3410.2400, L5500.0550 ####[facility] [address] [facility] [address] [place], [place], [phone] YSRKP-9-ATME 0.3 g/dL Normal 0.0-0.4 [facility] Comment on above: Order Comment: N Performed By: #### L 3100.3425, L506.0400, L100.0100, L501.60352, L3100.5440, L101.9900, L501.9520, L501.6710, L2100.0000, L500.4050, L3200.1100, L504.2610, L3300.1200, L3410.2400, L5500.0550 ####[facility] [address] [place], [place], [phone](113) VJYEJ-9-ZBPX 0.5 g/dL Normal 0.4-1.0 [facility] Comment on above: Order Comment: N Performed By: #### L 3100.3425, L506.0400, L100.0100, L501.25772, L3100.5440, L101.9900, L501.9520, L501.6710, L2100.0000, L500.4050, L3200.1100, L504.2610, L3300.1200, L3410.2400, L5500.0550 ####[facility] [address] [place], [phone]) BETA GLOBULIN 0.9 g/dL Normal 0.7-1.3 [facility] Comment on above: Order Comment: N Performed By: #### L 3100.3425, L506.0400, L100.0100, L501.35086, L3100.5440, L101.9900, L501.9520, L501.6710, L2100.0000, L500.4050, L3200.1100, L504.2610, L3300.1200, L3410.2400, L5500.0550 ####[facility] [address] [place], [phone]) GAMMA GLOBULIN 1.3 g/dL Normal 0.4-1.8 [facility] Comment on above: Order Comment: N Performed By: #### L 3100.3425, L506.0400, L100.0100, L501.68375, L3100.5440, L101.9900, L501.9520, L501.6710, L2100.0000, L500.4050, L3200.1100, L504.2610, L3300.1200, L3410.2400, L5500.0550 ####[facility] [address] [place], [place], [phone]) Globulin (S) [Mass/Vol] 3.0 g/dL Normal 2.2-3.9 [facility] Comment on above: Order Comment: N Performed By: #### L 3100.3425, L506.0400, L100.0100, L501.48412, L3100.5440, L101.9900, L501.9520, L501.6710, L2100.0000, L500.4050, L3200.1100, L504.2610, L3300.1200, L3410.2400, L5500.0550 ####[facility] [address] [place], [place], [phone]([phone]) TERESE RESULT,S Comment Normal . [facility] Comment on above: Order Comment: N Result Comment: No m onoclonality detected. Performed By: #### L 3100.3425, L506.0400, L100.0100, L501.35435, L3100.5440, L101.9900, L501.9520, L501.6710, L2100.0000, L500.4050, L3200.1100, L504.2610, L3300.1200, L3410.2400, L5500.0550 ####[facility] [address] [place], [place], [phone] IMMUNOGLOB A QN 162 mg/dL Normal 87-352 [facility] Comment on above: Order Comment: N Performed By: #### L 3100.3425, L506.0400, L100.0100, L501.91761, L3100.5440, L101.9900, L501.9520, L501.6710, L2100.0000, L500.4050, L3200.1100, L504.2610, L3300.1200, L3410.2400, L5500.0550 ####[facility] [address] [place], [place], [phone](946) IMMUNOGLOB G QN 1438 mg/dL Normal 586-1602 [facility] Comment on above: Order Comment: N Performed By: #### L 3100.3425, L506.0400, L100.0100, L501.64819, L3100.5440, L101.9900, L501.9520, L501.6710, L2100.0000, L500.4050, L3200.1100, L504.2610, L3300.1200, L3410.2400, L5500.0550 ####[facility] [address] [place], [place], [phone] IMMUNOGLOB M QN 64 mg/dL Normal 26-217 [facility] Comment on above: Order Comment: N Performed By: #### L 3100.3425, L506.0400, L100.0100, L501.26424, L3100.5440, L101.9900, L501.9520, L501.6710, L2100.0000, L500.4050, L3200.1100, L504.2610, L3300.1200, L3410.2400, L5500.0550 ####[facility] [address] [place], [place], [phone] M-Parth Not Observed Normal Not Observed [facility] Comment on above: Order Comment: N Performed By: #### L 3100.3425, L506.0400, L100.0100, L501.12853, L3100.5440, L101.9900, L501.9520, L501.6710, L2100.0000, L500.4050, L3200.1100, L504.2610, L3300.1200, L3410.2400, L5500.0550 ####[facility] [address] [place], [place], [phone] NOTE: Comment Normal . [facility] Comment on above: Order Comment: N Result Comment: Prot ein electrophoresis scan will follow via computer,mail, or representative delivery. Performed By: #### L 3100.3425, L506.0400, L100.0100, L501.01405, L3100.5440, L101.9900, L501.9520, L501.6710, L2100.0000, L500.4050, L3200.1100, L504.2610, L3300.1200, L3410.2400, L5500.0550 ####[facility] [address] [place], [place], [phone] Protein [Mass/Vol] 6.7 g/dL Normal 6.0-8.5 [facility] Comment on above: Order Comment: N Performed By: #### L 3100.3425, L506.0400, L100.0100, L501.85105, L3100.5440, L101.9900, L501.9520, L501.6710, L2100.0000, L500.4050, L3200.1100, L504.2610, L3300.1200, L3410.2400, L5500.0550 ####[facility] [address] [place], [place], [phone] Immunoglobulins G/A/M/Mikhail IMMUNOGLOB E QN 5 IU/mL Low 6-495 [facility] Comment on above: Order Comment: N Performed By: #### L 3100.3425, L506.0400, L100.0100, L501.68647, L3100.5440, L101.9900, L501.9520, L501.6710, L2100.0000, L500.4050, L3200.1100, L504.2610, L3300.1200, L3410.2400, L5500.0550 ####[facility] [address] [place], [place], [phone] L2100.0000on 02-19-2024 ACCA 12 units Normal 0-90 [facility] Comment on above: Order Comment: N Result Comment: Nega tive: <80 Equivocal: 80-90 Positive: >90 Performed By: #### L 3100.3425, L506.0400, L100.0100, L501.09144, L3100.5440, L101.9900, L501.9520, L501.6710, L2100.0000, L500.4050, L3200.1100, L504.2610, L3300.1200, L3410.2400, L5500.0550 ####[facility] [address] [place], [place], [phone] ALCA 7 units Normal 0-60 [facility] Comment on above: Order Comment: N Result Comment: Nega tive:<55 Equivocal: 55-60 Positive: >60 Performed By: #### L 3100.3425, L506.0400, L100.0100, L501.80852, L3100.5440, L101.9900, L501.9520, L501.6710, L2100.0000, L500.4050, L3200.1100, L504.2610, L3300.1200, L3410.2400, L5500.0550 ####[facility] [address] [place], [place], [phone] AMCA 30 units Normal 0-100 [facility] Comment on above: Order Comment: N Result Comment: Nega tive: <90 Equivocal: 90-100 Positive: >100 This test was developed and its performance characteristics determined by [employer]. It has not been cleared or approved by the Food and Drug Administration. The FDA has determined that such clearance or approval is not necessary. Performed By: #### L 3100.3425, L506.0400, L100.0100, L501.77893, L3100.5440, L101.9900, L501.9520, L501.6710, L2100.0000, L500.4050, L3200.1100, L504.2610, L3300.1200, L3410.2400, L5500.0550 ####[facility] [address] [place], [place], [phone] Atypical pANCA Negative Normal Negative [facility] Comment on above: Order Comment: N Performed By: #### L 3100.3425, L506.0400, L100.0100, L501.48948, L3100.5440, L101.9900, L501.9520, L501.6710, L2100.0000, L500.4050, L3200.1100, L504.2610, L3300.1200, L3410.2400, L5500.0550 ####[facility] [address] [place], [place], [phone] COMMENT Comment Normal . [facility] Comment on above: Order Comment: N Result Comment: Filomena canelo is not suggestive of Inflammatory Bowel Disease Performed By: #### L 3100.3425, L506.0400, L100.0100, L501.11119, L3100.5440, L101.9900, L501.9520, L501.6710, L2100.0000, L500.4050, L3200.1100, L504.2610, L3300.1200, L3410.2400, L5500.0550 ####[facility] [address] [place], [place], [phone] Misa 17 units Normal 0-50 [facility] Comment on above: Order Comment: N Result Comment: Nega tive: <45 Equivocal: 45-50 Positive: >50 Performed By: #### L 3100.3425, L506.0400, L100.0100, L501.13407, L3100.5440, L101.9900, L501.9520, L501.6710, L2100.0000, L500.4050, L3200.1100, L504.2610, L3300.1200, L3410.2400, L5500.0550 ####[facility] [address] [place], [place], [phone] ROSA Comprehensive Panelon ROSA TABLE Comment Normal . [facility] Comment on above: Result Comment: Auto antibody Disease Association -------- Condition Frequency ---------Antinuclear Antibody, SLE, mixed connectiveDirect (ROSA-D) tissue diseases ---------dsDNA SLE 40 - 60% ---------Chromatin Drug induced SLE 90% SLE 48 - 97% ---------SSA (Ro) SLE 25 - 35% Sjogren's Syndrome 40 - 70% Lupus 100% ---------SSB (La) SLE 10% Sjogren's Syndrome 30% ---------Sm (anti-Tee) SLE 15 - 30% ---------ECONOMIC FORECASTER Mixed Connective Tissue Disease 95%(U1 nRNP, SLE 30 - 50%anti-ribonucleoprotein) Polymyositis and/or Dermatomyositis 20% ---------Scl-70 (antiDNA Scleroderma (diffuse) 20 - 35%topoisomerase) Crest 13% ---------Celeste-1 Polymyositis and/or Dermatomyositis 20 - 40% ---------Centromere B Scleroderma - Crest variant 80% Performed By: #### L 3100.3425, L506.0400, L100.0100, L501.21228, L3100.5440, L101.9900, L501.9520, L501.6710, L2100.0000, L500.4050, L3200.1100, L504.2610, L3300.1200, L3410.2400, L5500.0550 ####[facility] [id number] [facility] [place], [address] ANTI-CENT B AB <0.2 Normal 0.0-0.9 [facility] Comment on above: Performed By: #### L 3100.3425, L506.0400, L100.0100, L501.04368, L3100.5440, L101.9900, L501.9520, L501.6710, L2100.0000, L500.4050, L3200.1100, L504.2610, L3300.1200, L3410.2400, L5500.0550 ####[facility] [id number] [facility] [place], [address] ANTI-DNA (DS)AB 2 IU/mL Normal 0-9 [facility] Comment on above: Result Comment: Nega tive <5 Equivocal 5 - 9 Positive >9 Performed By: #### L 3100.3425, L506.0400, L100.0100, L501.67222, L3100.5440, L101.9900, L501.9520, L501.6710, L2100.0000, L500.4050, L3200.1100, L504.2610, L3300.1200, L3410.2400, L5500.0550 ####[facility] [address] [place], [address] ANTI-CELESTE-1 <0.2 Normal 0.0-0.9 [facility] Comment on above: Performed By: #### L 3100.3425, L506.0400, L100.0100, L501.47025, L3100.5440, L101.9900, L501.9520, L501.6710, L2100.0000, L500.4050, L3200.1100, L504.2610, L3300.1200, L3410.2400, L5500.0550 ####[facility] [address] [place], [address] ANTI-SS-A < 0.2 Normal 0.0-0.9 [facility] Comment on above: Performed By: #### L 3100.3425, L506.0400, L100.0100, L501.01462, L3100.5440, L101.9900, L501.9520, L501.6710, L2100.0000, L500.4050, L3200.1100, L504.2610, L3300.1200, L3410.2400, L5500.0550 ####[facility] [address] [place], [address] ANTI-SS-B < 0.2 Normal 0.0-0.9 [facility] Comment on above: Performed By: #### L 3100.3425, L506.0400, L100.0100, L501.75205, L3100.5440, L101.9900, L501.9520, L501.6710, L2100.0000, L500.4050, L3200.1100, L504.2610, L3300.1200, L3410.2400, L5500.0550 ####[facility] [address] [place], [place], [id number] ANTICHROMATIN 6.2 AI Abnormal 0.0-0.9 [facility] Comment on above: Performed By: #### L 3100.3425, L506.0400, L100.0100, L501.15476, L3100.5440, L101.9900, L501.9520, L501.6710, L2100.0000, L500.4050, L3200.1100, L504.2610, L3300.1200, L3410.2400, L5500.0550 ####[facility] [address] [place], [address] ANTISCLERODERM <0.2 Normal 0.0-0.9 [facility] Comment on above: Performed By: #### L 3100.3425, L506.0400, L100.0100, L501.79956, L3100.5440, L101.9900, L501.9520, L501.6710, L2100.0000, L500.4050, L3200.1100, L504.2610, L3300.1200, L3410.2400, L5500.0550 ####[facility] [address] [place], [place], [id number] ECONOMIC FORECASTER Ab 5.8 AI Abnormal 0.0-0.9 [facility] Comment on above: Performed By: #### L 3100.3425, L506.0400, L100.0100, L501.70219, L3100.5440, L101.9900, L501.9520, L501.6710, L2100.0000, L500.4050, L3200.1100, L504.2610, L3300.1200, L3410.2400, L5500.0550 ####[facility] [address] [place], [place], [id number] TEE Ab 0.2 AI Normal 0.0-0.9 [facility] Comment on above: Performed By: #### L 3100.3425, L506.0400, L100.0100, L501.18314, L3100.5440, L101.9900, L501.9520, L501.6710, L2100.0000, L500.4050, L3200.1100, L504.2610, L3300.1200, L3410.2400, L5500.0550 ####[facility] [address] [facility] [address] [place], [place], [phone] L5500.0550on 02-17-2024 BEEF <0.10 Normal Class 0 [facility] Comment on above: Performed By: #### L 3100.3425, L506.0400, L100.0100, L501.44851, L3100.5440, L101.9900, L501.9520, L501.6710, L2100.0000, L500.4050, L3200.1100, L504.2610, L3300.1200, L3410.2400, L5500.0550 ####[facility] [address] [facility] [address] [place], [place], [id number] CHOCOLATE <0.10 Normal Class 0 [facility] Comment on above: Performed By: #### L 3100.3425, L506.0400, L100.0100, L501.18558, L3100.5440, L101.9900, L501.9520, L501.6710, L2100.0000, L500.4050, L3200.1100, L504.2610, L3300.1200, L3410.2400, L5500.0550 ####[facility] [address] [facility] [address] [place], [place], [id number] CODFISH <0.10 Normal Class 0 [facility] Comment on above: Performed By: #### L 3100.3425, L506.0400, L100.0100, L501.70369, L3100.5440, L101.9900, L501.9520, L501.6710, L2100.0000, L500.4050, L3200.1100, L504.2610, L3300.1200, L3410.2400, L5500.0550 ####[facility] [address] [place], [place], [id number] COMMENT Comment Normal . [facility] Comment on above: Result Comment: Jesika thornton of Specific IgE Class Description of Class ----- < 0.10 0 Negative 0.10 - 0.31 0/I Equivocal/Low 0.32 - 0.55 I Low 0.56 - 1.40 II Moderate 1.41 - 3.90 III High 3.91 - 19.00 IV Very High 19.01 - 100.00 V Very High >100.00 Very High Performed By: #### L 3100.3425, L506.0400, L100.0100, L501.70185, L3100.5440, L101.9900, L501.9520, L501.6710, L2100.0000, L500.4050, L3200.1100, L504.2610, L3300.1200, L3410.2400, L5500.0550 ####[facility] [address] [place], [place], [id number] CORN <0.10 Normal Class 0 [facility] Comment on above: Performed By: #### L 3100.3425, L506.0400, L100.0100, L501.75911, L3100.5440, L101.9900, L501.9520, L501.6710, L2100.0000, L500.4050, L3200.1100, L504.2610, L3300.1200, L3410.2400, L5500.0550 ####[facility] [address] [place], [address] EGG, WHOLE <0.10 Normal Class 0 [facility] Comment on above: Result Comment: Perf ormed at: [facility] [place], [place] [id number] Director: Jose Castillo PhD, Phone: [phone] at: [facility] [address] [id number] Director: Brigido Mtz MD, Phone: [phone] Performed By: #### L 3100.3425, L506.0400, L100.0100, L501.86558, L3100.5440, L101.9900, L501.9520, L501.6710, L2100.0000, L500.4050, L3200.1100, L504.2610, L3300.1200, L3410.2400, L5500.0550 ####[facility] [address] [place], [address] MILK (COW) <0.10 Normal Class 0 [facility] Comment on above: Performed By: #### L 3100.3425, L506.0400, L100.0100, L501.35239, L3100.5440, L101.9900, L501.9520, L501.6710, L2100.0000, L500.4050, L3200.1100, L504.2610, L3300.1200, L3410.2400, L5500.0550 ####[facility] [address] [place], [place], [phone]) MUSSELS <0.10 Normal Class 0 [facility] Comment on above: Performed By: #### L 3100.3425, L506.0400, L100.0100, L501.58975, L3100.5440, L101.9900, L501.9520, L501.6710, L2100.0000, L500.4050, L3200.1100, L504.2610, L3300.1200, L3410.2400, L5500.0550 ####[facility] [address] [place], [address] PEANUT <0.10 Normal Class 0 [facility] Comment on above: Performed By: #### L 3100.3425, L506.0400, L100.0100, L501.97620, L3100.5440, L101.9900, L501.9520, L501.6710, L2100.0000, L500.4050, L3200.1100, L504.2610, L3300.1200, L3410.2400, L5500.0550 ####[facility] [address] [place], [place], [id number] PORK <0.10 Normal Class 0 [facility] Comment on above: Performed By: #### L 3100.3425, L506.0400, L100.0100, L501.76770, L3100.5440, L101.9900, L501.9520, L501.6710, L2100.0000, L500.4050, L3200.1100, L504.2610, L3300.1200, L3410.2400, L5500.0550 ####[facility] [address] [place], [place], [id number] SALMON <0.10 Normal Class 0 [facility] Comment on above: Performed By: #### L 3100.3425, L506.0400, L100.0100, L501.12165, L3100.5440, L101.9900, L501.9520, L501.6710, L2100.0000, L500.4050, L3200.1100, L504.2610, L3300.1200, L3410.2400, L5500.0550 ####[facility] [address] [place], [address] SHRIMP <0.10 Normal Class 0 [facility] Comment on above: Performed By: #### L 3100.3425, L506.0400, L100.0100, L501.51578, L3100.5440, L101.9900, L501.9520, L501.6710, L2100.0000, L500.4050, L3200.1100, L504.2610, L3300.1200, L3410.2400, L5500.0550 ####[facility] [address] [place], [place], [id number] SOYBEAN <0.10 Normal Class 0 [facility] Comment on above: Performed By: #### L 3100.3425, L506.0400, L100.0100, L501.01527, L3100.5440, L101.9900, L501.9520, L501.6710, L2100.0000, L500.4050, L3200.1100, L504.2610, L3300.1200, L3410.2400, L5500.0550 ####[facility] [address] [place], [address] TUNA <0.10 Normal Class 0 [facility] Comment on above: Performed By: #### L 3100.3425, L506.0400, L100.0100, L501.85749, L3100.5440, L101.9900, L501.9520, L501.6710, L2100.0000, L500.4050, L3200.1100, L504.2610, L3300.1200, L3410.2400, L5500.0550 ####[facility] [address] [place], [place], [id number] WHEAT <0.10 Normal Class 0 [facility] Comment on above: Performed By: #### L 3100.3425, L506.0400, L100.0100, L501.48710, L3100.5440, L101.9900, L501.9520, L501.6710, L2100.0000, L500.4050, L3200.1100, L504.2610, L3300.1200, L3410.2400, L5500.0550 ####[facility] [address] [place], [address] CBC W Auto Differential pane l (Bld)on 02-14-2024 Basophils (Bld) [#/Vol] 0.00 10*3/uL Normal <0.11 [facility] Comment on above: Order Comment: Speci men Type: BLOOD SPECIMEN [facility] Address: [address] [place] [address], [place] [address] Performed By: #### C RET1 #### [facility] CLIA [id number] [address] [place] [address] [place] Basophils/100 WBC (Bld) 0.0 % Normal [facility] Comment on above: Order Comment: Speci men Type: BLOOD SPECIMEN Ordering Facility: [facility] Address: [address] [place] [address], [place] [address] Performed By: #### C RET1 #### [facility] CLIA [id number] [address] [place] [address] [place] Dacrocytes LM Ql (Bld) Few Normal [facility] Comment on above: Order Comment: Speci men Type: BLOOD SPECIMEN [facility] Address: [address] [place], [place] [address] [address] Performed By: #### C RET1 #### [facility] CLIA [id number] [address] [place] [address] [place] Differential cell count method Nom (Bld) Manual Normal [facility] Comment on above: Order Comment: Speci men Type: BLOOD SPECIMEN [facility] Address: [address] [place], [place] [address] [id number] Performed By: #### C RET1 #### [facility] [place] [id number] [address] [place], [place] [id number] [place] Eosinophils (Bld) [#/Vol] 0.09 10*3/uL Normal <0.46 [facility] Comment on above: Order Comment: Speci men Type: BLOOD SPECIMEN [facility] Address: [address] [place] [address] Performed By: #### C RET1 #### [facility] CLIA [id number] [address] [place] [address] [place] Eosinophils/100 WBC (Bld) 2.0 % Normal [facility] Comment on above: Order Comment: Speci men Type: BLOOD SPECIMEN [facility] Address: [address] [place] [address] Performed By: #### C RET1 #### [facility] CLIA [id number] [address] [place] [address] [place] Erythrocyte distribution width (RBC) [Ratio] 14.2 % Normal 11.5-15.0 [facility] Comment on above: Order Comment: Speci men Type: BLOOD SPECIMEN [facility] Address: [address] [place] [address] Performed By: #### C RET1 #### [facility] CLIA [id number] [address] [place] [address] [place] Hematocrit (Bld) [Volume fraction] 29.2 % Low 36.0-46.0 [facility] Comment on above: Order Comment: Speci men Type: BLOOD SPECIMEN [facility] Address: [address] [place] [address] Performed By: #### C RET1 #### [facility] CLIA [id number] [address] [place] [address] [place] Hemoglobin (Bld) [Mass/Vol] 9.2 g/dL Low 11.5-15.5 [facility] Comment on above: Order Comment: Speci men Type: BLOOD SPECIMEN [facility] Address: [address] [place] [address] [place] , [place] [address] Performed By: #### C RET1 #### [facility] CLIA [id number] [address] [place] [address] [place] Lymphocytes (Bld) [#/Vol] 1.44 10*3/uL Normal 1.00-4.00 [facility] Comment on above: Order Comment: Speci men Type: BLOOD SPECIMEN [facility] Address: [address] [place] [address], [place] [address] Performed By: #### C RET1 #### [facility] CLIA [id number] [address] [place] [address] [place] Lymphocytes/100 WBC (Bld) 33.0 % Normal [facility] Comment on above: Order Comment: Speci men Type: BLOOD SPECIMEN [facility] Address: [address] [place] [address], [place] [address] Performed By: #### C RET1 #### [facility] CLIA [id number] [address] [place] [address] [place] MCH (RBC) [Entitic mass] 31.9 pg Normal 26.0-34.0 [facility] Comment on above: Order Comment: Speci men Type: BLOOD SPECIMEN [facility] Address: [address] [place] [address] [place] [address] Performed By: #### C RET1 #### [facility] CLIA [id number] [address] [place] [address] [place] MCHC (RBC) [Mass/Vol] 31.5 g/dL Normal 30.5-36.0 [facility] Comment on above: Order Comment: Speci men Type: BLOOD SPECIMEN [facility] Address: [address] [place] [address], [place] [address] Performed By: #### C RET1 #### [facility] CLIA [id number] [address] [place] [address] [place] MCV (RBC) [Entitic vol] 101.4 fL High 80.0-100.0 [facility] Comment on above: Order Comment: Speci men Type: BLOOD SPECIMEN [facility] Address: [address] [place] [address] Performed By: #### C RET1 #### [facility] CLIA [id number] [address] [place] [address] [place] Monocytes (Bld) [#/Vol] 0.17 10*3/uL Normal <0.87 [facility] Comment on above: Order Comment: Speci men Type: BLOOD SPECIMEN [facility] Address: [address] [place] [address] Performed By: #### C RET1 #### [facility] IA [id number] [address] [place] [address] [place] Monocytes/100 WBC (Bld) 4.0 % Normal [facility] Comment on above: Order Comment: Speci men Type: BLOOD SPECIMEN [facility] Address: [address] [place] [address] Performed By: #### C RET1 #### [facility] IA [id number] [address] [place] [address] [place] Neutrophils (Bld) [#/Vol] 2.65 10*3/uL Normal 1.45-7.50 [facility] Comment on above: Order Comment: Speci men Type: BLOOD SPECIMEN [facility] Address: [address] [place] [address] Performed By: #### C RET1 #### [facility] IA [id number] [facility] [place] [address] [place] Neutrophils/100 WBC (Bld) 61.0 % Normal [facility] Comment on above: Order Comment: Speci emanuel Type: BLOOD SPECIMEN Ordering Facility: [facility] Address: [address] [place] [address] [place]IA GUADALUPE [place], [place] [id number] Performed By: #### C RET1 #### [facility] CLIA [id number] [address] [place] [address] [place] Nucleated RBC (Bld) [#/Vol] 10*3/uL Normal <0.01 [facility] Comment on above: Order Comment: Natashai emanuel Type: BLOOD SPECIMEN Ordering Facility: [facility] Address: [address] [place], [place] [address]MARIA GUADALUPE [place], [place] [address] Performed By: #### C RET1 #### [facility] CLIA [id number] [address] [place] [address] [place] Nucleated RBC/100 WBC (Bld) [Ratio] 0.0 /100 WBC Normal [facility] Comment on above: Order Comment: Natashai emanuel Type: BLOOD SPECIMEN [facility] Address: [address] [place] [address] ADINAMARIA GUADALUPE [place], [place] [address] Performed By: #### C RET1 #### [facility] CLIA [id number] [address] [place] [address] [place] Ovalocytes LM Ql (Bld) Few Normal [facility] Comment on above: Order Comment: Natashai emanuel Type: BLOOD SPECIMEN Ordering Facility: [facility] Address: [address] [place] [address] ADINAM[place]IA GUADALUPE [place], [place] [address] Performed By: #### C RET1 #### [facility] CLIA [id number] [address] [place] [address] [place] Platelet mean volume (Bld) [Entitic vol] 11.7 fL Normal 9.0-12.7 [facility] Comment on above: Order Comment: Natashai men Type: BLOOD SPECIMEN Ordering Facility: [facility] Address: [address] [place] [address] [place]ER, [place] [address] Performed By: #### C RET1 #### [facility] CLIA [id number] [address] [place] [address] [place] Platelets (Bld) [#/Vol] 172 10*3/uL Normal 150-400 [facility] Comment on above: Order Comment: Speci men Type: BLOOD SPECIMEN [facility] Address: [address] [place] [address], [place] [address] Performed By: #### C RET1 #### [facility] CLIA [id number] [address] [place] [address] [place] Platelets Estimate (Bld) [#/Vol] Adequate Normal [facility] Comment on above: Order Comment: Speci men Type: BLOOD SPECIMEN [facility] Address: [address] [place], [place] [address]A[place] , [place] [address] Performed By: #### C RET1 #### [facility] CLIA [id number] [facility] [place] [address] [place] Polychromasia LM Ql (Bld) Slight Normal [facility] Comment on above: Order Comment: Speci men Type: BLOOD SPECIMEN [facility] Address: [address] [place] [address], [place] [address] Performed By: #### C RET1 #### [facility] CLIA [id number] [facility] [place] [address] [place] RBC (Bld) [#/Vol] 2.88 10*6/uL Low 3.90-5.20 [facility] Comment on above: Order Comment: Speci men Type: BLOOD SPECIMEN [facility] Address: [address] [place], [place] [address]A[place]ia , [place] [address] Performed By: #### C RET1 #### [facility] CLIA [id number] [facility] [address] OF [place] RBC FRAGMENTS Few Abnormal None Seen [facility] Comment on above: Order Comment: Bradley castellanos Type: BLOOD SPECIMEN [facility] Address: [facility] [place]ER, [place] [address] Performed By: #### C RET1 #### [facility] CLIA [id number] [address] [place] [address] OF [place] RED CELL MORPH Reviewed: see result s of individual morphologies Normal [facility] Comment on above: Order Comment: Bradley castellanos Type: BLOOD SPECIMEN [facility] Address: [address] [place] [address] [place] [address] Performed By: #### C RET1 #### [facility] CLIA [id number] [address] [place] [address] [place] WBC (Bld) [#/Vol] 4.35 10*3/uL Normal 3.70-11.00 [facility] Comment on above: Order Comment: Bradley castellanos Type: BLOOD SPECIMEN [facility] Address: [address] [place] [address] [place]ER, [place] [address] Performed By: #### C RET1 #### [facility] CLIA [id number] [address] [place] [address] OF [place] CNOVon 02-14-2024 CNOV Office Visit (INTMWS ) CASSIA HOLLAND ([id number]) 1965 F Date Time Provider Department 02/14/24 2:20 PM SHAHRIAR BROWN During your visit today, we recorded the following information about you: Pulse Respiration Blood pressure Weight 88/minute 16/minute 112/68 83.5 kg Shahriar Brown APRN.NURSE STAFF 02/14/2024 3:17 PM Signed CC: Patient presents [...] per directed for severe allergic reaction lancets ([employer]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 Normal [facility] CBC W/Diff, Automatedon 10-0 Absolute Lymph 0.78 X10 3/uL Low 0.83-4.51 [facility] Comment on above: Performed By: #### L 3100.3425, L506.0400, L100.0100, L501.80907, L3100.5440, L101.9900, L501.9520, L501.6710, L2100.0000, L500.4050, L3200.1100, L504.2610, L3300.1200, L3410.2400, L5500.0550 ####[facility] [address] [place], [place], [phone] Absolute Neut 1.8 X10 3/uL Low 2.0-7.7 [facility] Comment on above: Performed By: #### L 3100.3425, L506.0400, L100.0100, L501.58884, L3100.5440, L101.9900, L501.9520, L501.6710, L2100.0000, L500.4050, L3200.1100, L504.2610, L3300.1200, L3410.2400, L5500.0550 ####[facility] [address] [place], [place], [phone] Basophils/100 WBC (Bld) 0.3 % Normal 0-1 [facility] Comment on above: Performed By: #### L 3100.3425, L506.0400, L100.0100, L501.47410, L3100.5440, L101.9900, L501.9520, L501.6710, L2100.0000, L500.4050, L3200.1100, L504.2610, L3300.1200, L3410.2400, L5500.0550 ####[facility] [address] [place], [address] Eosinophils/100 WBC (Bld) 1.9 % Normal 0-5 [facility] Comment on above: Performed By: #### L 3100.3425, L506.0400, L100.0100, L501.17351, L3100.5440, L101.9900, L501.9520, L501.6710, L2100.0000, L500.4050, L3200.1100, L504.2610, L3300.1200, L3410.2400, L5500.0550 ####[facility] [address] [place], [place], [phone] Erythrocyte distribution width (RBC) [Ratio] 14.6 % Normal 11.6-14.6 [facility] Comment on above: Performed By: #### L 3100.3425, L506.0400, L100.0100, L501.59568, L3100.5440, L101.9900, L501.9520, L501.6710, L2100.0000, L500.4050, L3200.1100, L504.2610, L3300.1200, L3410.2400, L5500.0550 ####[facility] [address] [place], [place], [phone]) Hematocrit (Bld) [Volume fraction] 30.9 % Low 37-47 [facility] Comment on above: Performed By: #### L 3100.3425, L506.0400, L100.0100, L501.41734, L3100.5440, L101.9900, L501.9520, L501.6710, L2100.0000, L500.4050, L3200.1100, L504.2610, L3300.1200, L3410.2400, L5500.0550 ####[facility] [address] [place], [place], [phone]) Hemoglobin (Bld) [Mass/Vol] 9.8 g/dL Low 12.0-15.0 [facility] Comment on above: Performed By: #### L 3100.3425, L506.0400, L100.0100, L501.57810, L3100.5440, L101.9900, L501.9520, L501.6710, L2100.0000, L500.4050, L3200.1100, L504.2610, L3300.1200, L3410.2400, L5500.0550 ####[facility] [address] [place], [address] IG% 0.300 Normal 0.0-0.9 [facility] Comment on above: Result Comment: IG% - Immature Granulocytes (promyelocytes, myelocytes andmetamyelocytes) > 1% indicates that a LEFT SHIFT is Present. Performed By: #### L 3100.3425, L506.0400, L100.0100, L501.67971, L3100.5440, L101.9900, L501.9520, L501.6710, L2100.0000, L500.4050, L3200.1100, L504.2610, L3300.1200, L3410.2400, L5500.0550 ####[facility] [address] [place], [place], [phone] Lymphocytes/100 WBC (Bld) 25.3 % Normal 19-41 [facility] Comment on above: Performed By: #### L 3100.3425, L506.0400, L100.0100, L501.05549, L3100.5440, L101.9900, L501.9520, L501.6710, L2100.0000, L500.4050, L3200.1100, L504.2610, L3300.1200, L3410.2400, L5500.0550 ####[facility] [address] [place], [address] MCH (RBC) [Entitic mass] 31.9 pg Normal 27.0-32.0 [facility] Comment on above: Performed By: #### L 3100.3425, L506.0400, L100.0100, L501.96286, L3100.5440, L101.9900, L501.9520, L501.6710, L2100.0000, L500.4050, L3200.1100, L504.2610, L3300.1200, L3410.2400, L5500.0550 ####[facility] [address] [place], [place], [phone] MCHC (RBC) [Mass/Vol] 31.7 g/dL Low 32-36 [facility] Comment on above: Performed By: #### L 3100.3425, L506.0400, L100.0100, L501.32358, L3100.5440, L101.9900, L501.9520, L501.6710, L2100.0000, L500.4050, L3200.1100, L504.2610, L3300.1200, L3410.2400, L5500.0550 ####[facility] [address] [place], [place], [phone] MCV (RBC) [Entitic vol] 100.7 fL High 81-99 [facility] Comment on above: Performed By: #### L 3100.3425, L506.0400, L100.0100, L501.47297, L3100.5440, L101.9900, L501.9520, L501.6710, L2100.0000, L500.4050, L3200.1100, L504.2610, L3300.1200, L3410.2400, L5500.0550 ####[facility] [address] [place], [address] Monocytes/100 WBC (Bld) 12.3 % High 0-10 [facility] Comment on above: Performed By: #### L 3100.3425, L506.0400, L100.0100, L501.31365, L3100.5440, L101.9900, L501.9520, L501.6710, L2100.0000, L500.4050, L3200.1100, L504.2610, L3300.1200, L3410.2400, L5500.0550 ####[facility] [address] [place], [address] Neutrophils/100 WBC (Bld) 59.9 % Normal 47-70 [facility] Comment on above: Performed By: #### L 3100.3425, L506.0400, L100.0100, L501.90357, L3100.5440, L101.9900, L501.9520, L501.6710, L2100.0000, L500.4050, L3200.1100, L504.2610, L3300.1200, L3410.2400, L5500.0550 ####[facility] [address] [facility] [place], [place], [phone]([phone] Nucleated RBC (Bld) [#/Vol] 0 10*3/uL Normal 0-5 [facility] Comment on above: Performed By: #### L 3100.3425, L506.0400, L100.0100, L501.84543, L3100.5440, L101.9900, L501.9520, L501.6710, L2100.0000, L500.4050, L3200.1100, L504.2610, L3300.1200, L3410.2400, L5500.0550 ####[facility] [address] [place], [place], [phone]) Platelet mean volume (Bld) [Entitic vol] 11.2 fL Normal 6.2-12.0 [facility] Comment on above: Performed By: #### L 3100.3425, L506.0400, L100.0100, L501.44373, L3100.5440, L101.9900, L501.9520, L501.6710, L2100.0000, L500.4050, L3200.1100, L504.2610, L3300.1200, L3410.2400, L5500.0550 ####[facility] [address] [place], [place], [phone] Platelets (Bld) [#/Vol] 168 10*3/uL Normal 150-450 [facility] Comment on above: Performed By: #### L 3100.3425, L506.0400, L100.0100, L501.13025, L3100.5440, L101.9900, L501.9520, L501.6710, L2100.0000, L500.4050, L3200.1100, L504.2610, L3300.1200, L3410.2400, L5500.0550 ####[facility] [address] [place], [place], [address] RBC (Bld) [#/Vol] 3.07 10*6/uL Low 4.2-5.4 [facility] Comment on above: Performed By: #### L 3100.3425, L506.0400, L100.0100, L501.75138, L3100.5440, L101.9900, L501.9520, L501.6710, L2100.0000, L500.4050, L3200.1100, L504.2610, L3300.1200, L3410.2400, L5500.0550 ####[facility] [address] [place], [place], [address] RDW SD 54.6 fl High 35.1-43.9 [facility] Comment on above: Performed By: #### L 3100.3425, L506.0400, L100.0100, L501.29210, L3100.5440, L101.9900, L501.9520, L501.6710, L2100.0000, L500.4050, L3200.1100, L504.2610, L3300.1200, L3410.2400, L5500.0550 ####[facility] [address] [place], [place], [phone] WBC (Bld) [#/Vol] 3.1 10*3/uL Low 4.4-11.0 [facility] Comment on above: Performed By: #### L 3100.3425, L506.0400, L100.0100, L501.87951, L3100.5440, L101.9900, L501.9520, L501.6710, L2100.0000, L500.4050, L3200.1100, L504.2610, L3300.1200, L3410.2400, L5500.0550 ####[facility] [address] [facility] [address] [place], [place], [phone] CRPon 02-13-2024 C-REACTIVE PROT 3.95 mg/L High 0.0-3.0 [facility] Comment on above: Order Comment: 1 Result Comment: C-Re active Protein (CRP) provides useful information for thediagnosis, therapy and monitoring of inflammatory processesand associated diseases. For the evaluation of Relative Riskfor Cardiovascular Disease, a High Sensitivity CRP (HSCRP)should be ordered. Performed By: #### L 3100.3425, L506.0400, L100.0100, L501.75777, L3100.5440, L101.9900, L501.9520, L501.6710, L2100.0000, L500.4050, L3200.1100, L504.2610, L3300.1200, L3410.2400, L5500.0550 ####[facility] [address] [facility] [address] [place], [place], [phone] Comprehensive Metabolic Prof ilon 02-13-2024 Albumin [Mass/Vol] 3.6 g/dL Normal 3.2-5.0 [facility] Comment on above: Order Comment: 1 Performed By: #### L 3100.3425, L506.0400, L100.0100, L501.66567, L3100.5440, L101.9900, L501.9520, L501.6710, L2100.0000, L500.4050, L3200.1100, L504.2610, L3300.1200, L3410.2400, L5500.0550 ####[facility] [address] [place], [address] Albumin/Globulin [Mass ratio] 0.9 {ratio} Normal 0.9-2.4 [facility] Comment on above: Order Comment: 1 Performed By: #### L 3100.3425, L506.0400, L100.0100, L501.24969, L3100.5440, L101.9900, L501.9520, L501.6710, L2100.0000, L500.4050, L3200.1100, L504.2610, L3300.1200, L3410.2400, L5500.0550 ####[facility] [address] [place], [address] ALK P 91 U/L Normal 45-117 [facility] Comment on above: Order Comment: 1 Performed By: #### L 3100.3425, L506.0400, L100.0100, L501.72316, L3100.5440, L101.9900, L501.9520, L501.6710, L2100.0000, L500.4050, L3200.1100, L504.2610, L3300.1200, L3410.2400, L5500.0550 ####[facility] [address] [facility] [place], [address] ALT [Catalytic activity/Vol] 53 U/L Normal 13-56 [facility] Comment on above: Order Comment: 1 Performed By: #### L 3100.3425, L506.0400, L100.0100, L501.38295, L3100.5440, L101.9900, L501.9520, L501.6710, L2100.0000, L500.4050, L3200.1100, L504.2610, L3300.1200, L3410.2400, L5500.0550 ####[facility] [address] [place], [place], [phone] AST [Catalytic activity/Vol] 48 U/L High 15-37 [facility] Comment on above: Order Comment: 1 Performed By: #### L 3100.3425, L506.0400, L100.0100, L501.17012, L3100.5440, L101.9900, L501.9520, L501.6710, L2100.0000, L500.4050, L3200.1100, L504.2610, L3300.1200, L3410.2400, L5500.0550 ####[facility] [address] [place], [place], [phone] Bilirubin [Mass/Vol] 0.50 mg/dL Normal 0.20-1.00 [facility] Comment on above: Order Comment: 1 Result Comment: For patients on eltrombopag therapy, use of Dimension [place] TBIL is not recommended. Performed By: #### L 3100.3425, L506.0400, L100.0100, L501.02934, L3100.5440, L101.9900, L501.9520, L501.6710, L2100.0000, L500.4050, L3200.1100, L504.2610, L3300.1200, L3410.2400, L5500.0550 ####[facility] [address] [place], [place], [phone] BUN/CRE 20.8 RATIO High 10-20 [facility] Comment on above: Order Comment: 1 Performed By: #### L 3100.3425, L506.0400, L100.0100, L501.49348, L3100.5440, L101.9900, L501.9520, L501.6710, L2100.0000, L500.4050, L3200.1100, L504.2610, L3300.1200, L3410.2400, L5500.0550 ####[facility] [address] [place], [address] CA,Total 9.8 mg/dL Normal 8.5-10.1 [facility] Comment on above: Order Comment: 1 Performed By: #### L 3100.3425, L506.0400, L100.0100, L501.59038, L3100.5440, L101.9900, L501.9520, L501.6710, L2100.0000, L500.4050, L3200.1100, L504.2610, L3300.1200, L3410.2400, L5500.0550 ####[facility] [address] [place], [address] Chloride [Moles/Vol] 105 mmol/L Normal 98-107 [facility] Comment on above: Order Comment: 1 Performed By: #### L 3100.3425, L506.0400, L100.0100, L501.01875, L3100.5440, L101.9900, L501.9520, L501.6710, L2100.0000, L500.4050, L3200.1100, L504.2610, L3300.1200, L3410.2400, L5500.0550 ####[facility] [address] [place], [place], [phone](979) CO2 [Moles/Vol] 22.0 mmol/L Normal 21.0-32.0 [facility] Comment on above: Order Comment: 1 Performed By: #### L 3100.3425, L506.0400, L100.0100, L501.91495, L3100.5440, L101.9900, L501.9520, L501.6710, L2100.0000, L500.4050, L3200.1100, L504.2610, L3300.1200, L3410.2400, L5500.0550 ####[facility] [address] [place], [address] Creatinine [Mass/Vol] 0.63 mg/dL Normal 0.55-1.02 [facility] Comment on above: Order Comment: 1 Result Comment: The validity of the calculated GFR GFRAA in patients over70 years has not been determined. Clinical correlation isessential. Performed By: #### L 3100.3425, L506.0400, L100.0100, L501.42332, L3100.5440, L101.9900, L501.9520, L501.6710, L2100.0000, L500.4050, L3200.1100, L504.2610, L3300.1200, L3410.2400, L5500.0550 ####[facility] [address] [place], [address] EST GFR - AA 126 mL/min Normal >60 [facility] Comment on above: Order Comment: 1 Result Comment: Afri can Norwegian GFR Calc Performed By: #### L 3100.3425, L506.0400, L100.0100, L501.23796, L3100.5440, L101.9900, L501.9520, L501.6710, L2100.0000, L500.4050, L3200.1100, L504.2610, L3300.1200, L3410.2400, L5500.0550 ####[facility] [address] [place], [address] GAP 6 Normal 5-15 [facility] Comment on above: Order Comment: 1 Performed By: #### L 3100.3425, L506.0400, L100.0100, L501.21744, L3100.5440, L101.9900, L501.9520, L501.6710, L2100.0000, L500.4050, L3200.1100, L504.2610, L3300.1200, L3410.2400, L5500.0550 ####[facility] [address] [place], [address] GFR/1.73 sq M.predicted among non-blacks MDRD (S/P/Bld) [Vol rate/Area] 104 mL/min/{1.73_m2} Normal >60 [facility] Comment on above: Order Comment: 1 Result Comment: Non- GFR Calc Performed By: #### L 3100.3425, L506.0400, L100.0100, L501.78908, L3100.5440, L101.9900, L501.9520, L501.6710, L2100.0000, L500.4050, L3200.1100, L504.2610, L3300.1200, L3410.2400, L5500.0550 ####[facility] [address] [place], [place], [phone] Globulin (S) [Mass/Vol] 3.8 g/dL Normal 2.2-4.2 [facility] Comment on above: Order Comment: 1 Performed By: #### L 3100.3425, L506.0400, L100.0100, L501.72028, L3100.5440, L101.9900, L501.9520, L501.6710, L2100.0000, L500.4050, L3200.1100, L504.2610, L3300.1200, L3410.2400, L5500.0550 ####[facility] [address] [place], [place], [phone] Glucose [Mass/Vol] 114 mg/dL High 74-106 [facility] Comment on above: Order Comment: 1 Result Comment: Fast ing Glucose result from 100 to 125 mg/dLsuggests IMPAIRED HOMEOSTASIS per A.D.A. criteria. Performed By: #### L 3100.3425, L506.0400, L100.0100, L501.06037, L3100.5440, L101.9900, L501.9520, L501.6710, L2100.0000, L500.4050, L3200.1100, L504.2610, L3300.1200, L3410.2400, L5500.0550 ####[facility] [address] [place], [address] Potassium [Moles/Vol] 4.4 mmol/L Normal 3.5-5.1 [facility] Comment on above: Order Comment: 1 Performed By: #### L 3100.3425, L506.0400, L100.0100, L501.26625, L3100.5440, L101.9900, L501.9520, L501.6710, L2100.0000, L500.4050, L3200.1100, L504.2610, L3300.1200, L3410.2400, L5500.0550 ####[facility] [address] [place], [address] Sodium [Moles/Vol] 133 mmol/L Low 136-145 [facility] Comment on above: Order Comment: 1 Performed By: #### L 3100.3425, L506.0400, L100.0100, L501.79187, L3100.5440, L101.9900, L501.9520, L501.6710, L2100.0000, L500.4050, L3200.1100, L504.2610, L3300.1200, L3410.2400, L5500.0550 ####[facility] [address] [place], [place], [phone](570) T PROT 7.4 g/dL Normal 6.4-8.2 [facility] Comment on above: Order Comment: 1 Performed By: #### L 3100.3425, L506.0400, L100.0100, L501.16181, L3100.5440, L101.9900, L501.9520, L501.6710, L2100.0000, L500.4050, L3200.1100, L504.2610, L3300.1200, L3410.2400, L5500.0550 ####[facility] [address] [place], [place], [phone](334) Urea nitrogen [Mass/Vol] 13 mg/dL Normal 7-18 [facility] Comment on above: Order Comment: 1 Performed By: #### L 3100.3425, L506.0400, L100.0100, L501.39371, L3100.5440, L101.9900, L501.9520, L501.6710, L2100.0000, L500.4050, L3200.1100, L504.2610, L3300.1200, L3410.2400, L5500.0550 ####[facility] [address] [place], [address] Erythrocyte Sed Rateon 02-12 SED RATE 17 mm/hr Normal 0-30 [facility] Comment on above: Performed By: #### L 3100.3425, L506.0400, L100.0100, L501.77576, L3100.5440, L101.9900, L501.9520, L501.6710, L2100.0000, L500.4050, L3200.1100, L504.2610, L3300.1200, L3410.2400, L5500.0550 ####[facility] [address] [place], [place], [address] Free T3on 02-13-2024 Free T3 [Mass/Vol] 2.5 pg/mL Normal 2.18-3.98 [facility] Comment on above: Order Comment: 1 Performed By: #### L 3100.3425, L506.0400, L100.0100, L501.28712, L3100.5440, L101.9900, L501.9520, L501.6710, L2100.0000, L500.4050, L3200.1100, L504.2610, L3300.1200, L3410.2400, L5500.0550 ####[facility] [address] [place], [place], [address] Gastroenterology Visit Repor ton 02-13-2024 Gastroenterology Visit Report Normal [facility] LDHon 02-13-2024 LDH 198 U/L Normal 84-246 [facility] Comment on above: Order Comment: 1 Performed By: #### L 3100.3425, L506.0400, L100.0100, L501.99731, L3100.5440, L101.9900, L501.9520, L501.6710, L2100.0000, L500.4050, L3200.1100, L504.2610, L3300.1200, L3410.2400, L5500.0550 ####[facility] [address] [place], [place], [phone] T4 Free Directon 02-13-2024 T4 FREE DIRECT 1.00 ng/dL Normal 0.76-1.46 [facility] Comment on above: Order Comment: 1 Performed By: #### L 3100.3425, L506.0400, L100.0100, L501.85226, L3100.5440, L101.9900, L501.9520, L501.6710, L2100.0000, L500.4050, L3200.1100, L504.2610, L3300.1200, L3410.2400, L5500.0550 ####[facility] [address] [place], [place], [phone] Thyroid Stim Hormone (TSH)on 02-13-2024 TSH 1.070 uIU/mL Normal 0.358-3.74 0 [facility] Comment on above: Order Comment: 1 Performed By: #### L 3100.3425, L506.0400, L100.0100, L501.22390, L3100.5440, L101.9900, L501.9520, L501.6710, L2100.0000, L500.4050, L3200.1100, L504.2610, L3300.1200, L3410.2400, L5500.0550 ####[facility] [address] [place], [place], [phone] CNOVon 01-21-2024 CNOV Office Visit (OBGYWM ) CASSIA HOLLAND ([id number]) 1965 F Date Time Provider Department 01/21/24 2:20 PM CHHAYA CROWE OBGYWM During your visit today, we recorded the following information about you: Blood pressure Weight Height 120/76 85.4 kg 1.581 m Chhaya Crowe MD 01/21/2024 4:30 PM Signed Nursing Administrator offered: Patient declines. Cassia is a 58 year old who presents for an annual gynecologic exam without complaints. Postmenopausal: Yes No PMB HRT use: No. 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 As applicable, any other physician, advance practice provider, medical student, or other health professional student that will be observing or involved in the sensitive examination for educational or training purposes was discussed with the Patient or Authorized Ep Specialist. The Patient or Authorized Ep Specialist has agreed to proceed with the sensitive [...] external genitalia normal, normal Bartholin's glands, urethra, Azle's glands, no vulvar lesions, good vaginal support, [...] breast cancer [Z12.31] Order(s):MIN SCREENING W ROBERT [[id number]] Order #: [id number] FUTURE Prescriptions as of 01/21/2024 - tria (more content not included)... Normal [facility] CNOVon 01-17-2024 CNOV Office Visit (INTMWS ) CASSIA HOLLAND ([id number]) 1965 F Date Time Provider Department 01/17/24 1:20 PM SHAHRIAR BROWN INTMWS During your visit today, we recorded the following information about you: Pulse Respiration Blood pressure Weight Normal [facility] C3 SerPl-mCncon 12-31-2023 Complement C3 [Mass/Vol] 137 mg/dL Normal 86-166 [facility] Comment on above: Order Comment: Speci men Type: BLOOD SPECIMENOrdering Facility: [facility] Address: [address] [place] [address] [place] [address] Performed By: #### 4 485-9, 87751-9, 4498-2, 1987- ####[facility] LABCLIA [id number] [place] [address] [place] C4 SerPl-mCncon 12-31-2023 Complement C4 [Mass/Vol] 11 mg/dL Low 13-46 [facility] Comment on above: Order Comment: Speci men Type: BLOOD SPECIMENOrdering Facility: [facility] Address: [address] [place] [address] [address] MILLER [place] [id number] Performed By: #### 4 485-9, 07147-8, 4498-2, 1987-09 ####[facility] LABCLIA [id number] [place] [id number] [place] CREATININE BLDon 12-31-2023 Creatinine [Mass/Vol] 0.54 mg/dL Low 0.58-0.96 [facility] Comment on above: Order Comment: Specemy castellanos Type: BLOOD SPECIMENOrdering Facility: [facility] Address: [address] [place] [address], [place] [id number] Performed By: #### C RET1 ####[facility] [id number] [place] [address] [place] Creatinine and Glomerular filtration rate.predicted panel (S/P/Bld) 107 mL/min/1.73m??? Normal >=60 [facility] Comment on above: Order Comment: Bradley castellanos Type: BLOOD SPECIMENOrdering Facility: [facility] Address: [address] [place] [address], [place] [address] Result Comment: Arianna mated Glomerular Filtration Rate [...] actual GFR. Performed By: #### C RET1 ####[facility] LABIA [id number] [place] [id number] [place] CRP SerPl-mCncon 12-31-2023 CRP [Mass/Vol] 0.8 mg/dL Normal <0.9 [facility] Comment on above: Order Comment: Bradley castellanos Type: BLOOD SPECIMENOrdering Facility: [facility] Address: [address] [place] [address], [place] [id number] Performed By: #### 4 485-9, 17107-3, 4497-2, 1987-09 ####[facility] LABCLIA [id number] [place] [address] [place] DNASE B ANTIBODYon ANTI-DNASE B AB <86 Normal <=259 [facility] Comment on above: Order Comment: Bradley castellanos Type: BLOOD SPECIMENOrdering Facility: [facility] Address: [address] [place] [address], [place] [address] Result Comment: REFE RENCE INTERVAL: DNAse B [...] of a recent Streptococcus infection. Performed By: [employer] [address] [place] [id number] Student Liaison Officer: Ramses Huffman MD, PhD CLIA Number: [id number] Performed By: #### D [facility] ####[facility] [id number] [place] [address] Hepatic function 2000 panelo n 12-31-2023 Albumin [Mass/Vol] 4.0 g/dL Normal 3.9-4.9 [facility] Comment on above: Order Comment: Bradley castellanos Type: BLOOD SPECIMENOrdering Facility: [employer] Address: [address] [place] [address], [place] [address] Performed By: #### 4 485-9, 15256-5, 4498-2, 1987- ####[facility] LABCLIA [id number] [place] [id number] [place] ALP [Catalytic activity/Vol] 106 U/L Normal 34-123 [facility] Comment on above: Order Comment: Bradley castellanos Type: BLOOD SPECIMENOrdering Facility: [facility] Address: [address] [place], [place] [address], [place] [address] Performed By: #### 4 485-9, 10055-2, 8-2, 1987-09 ####[facility] LABCLIA [id number] [address] [address] [place] ALT [Catalytic activity/Vol] 60 U/L High 7-38 [facility] Comment on above: Order Comment: Speci men Type: BLOOD SPECIMENOrdering Facility: [facility] Address: [address] [place], [place] [address], [place] [address] Performed By: #### 4 485-9, 96186-9, 4498-2, 1987-09 ####[facility] LABCLIA [id number] [place] [address] [place] AST [Catalytic activity/Vol] 70 U/L High 13-35 [facility] Comment on above: Order Comment: Speci men Type: BLOOD SPECIMENOrdering Facility: [employer] [facility] Address: [address] [place], [place] [address] , [place] [address] Performed By: #### 4 485-9, 00405-7, 4497-06, 1987-09 ####[facility]CL[facility] [id number] [place] [address] [place] Bilirubin [Mass/Vol] 0.4 mg/dL Normal 0.2-1.3 [facility] Comment on above: Order Comment: Speci men Type: BLOOD SPECIMENOrdering Facility: [facility] Address: [address] [place], [place] [address] , [place] [address] Performed By: #### 4 485-9, 62639-9, 4497-, 1987-09 ####[facility]CL[facility] [id number] [place] [address] [place] Bilirubin.conjugated [Mass/Vol] mg/dL Normal <0.2 [facility] Comment on above: Order Comment: Speci men Type: BLOOD SPECIMENOrdering Facility: [employer] [facility] Address: [address] [place] [address] [address], [place] [address] Performed By: #### 4 485-9, 35676-2, 4498-, 1987-09 ####[facility]CLIA [id number] [place] [id number] [place] Protein [Mass/Vol] 7.4 g/dL Normal 6.3-8.0 [facility] Comment on above: Order Comment: Speci men Type: BLOOD SPECIMENOrdering Facility: [facility] Address: [address] [place] [address] [address], [place] [address] Performed By: #### 4 485-9, 08551-0, 4498, 1987-09 ####[facility]CLIA [id number] [place] [address] [place] Prot/Creat Uron 12-31-2023 Protein/Creatinine (U) [Mass ratio] 0.13 mg/mg Normal <0.15 [facility] Comment on above: Order Comment: Speci men Type: URINE SPECIMEN [facility] Address: [address] [place] [address] [address], [place] [address] Result Comment: Adul t Proteinuria Categories: <0.15 mg/mg is considered normal to mildly increased 0.15 - 0.50 mg/mg is considered moderately increased >0.50 mg/mg is considered severely increased KDIGO. (2013). KDIGO 2012 Clinical Practice Guideline for the Evaluation and Management of Chronic Kidney Disease. Official Journal of the International Society of Nephrology, 3(1), 1-150. Performed By: #### 2 890-2 #### [facility] CLIA [id number] [address] [id number] [place] Protein/Creatinine (U) [Mass ratio]on 12-31-2023 Creatinine (U) [Mass/Vol] 68.4 mg/dL Normal 20.0-300.0 [facility] Comment on above: Order Comment: Speci men Type: URINE SPECIMEN [facility] Address: [address] [place], [place] [address] , [place] [address] Performed By: #### 2 890-2 #### [facility] CLIA [id number] [address] [place] [address] [place] Protein (U) [Mass/Vol] 9 mg/dL Normal 0-20 [facility] Comment on above: Order Comment: Speci men Type: URINE SPECIMEN [facility]ing Facility[facility] Address: [address] [place], [place] [address]Aleshia , [place] [address] Performed By: #### 2 890-2 #### [facility] [place] [id number] [address] [place] [address] [place] Urinalysis complete panel (U )on 12-31-2023 Bacteria LM.HPF (Urine sed) [#/Area] Negative Normal Negative [facility] Comment on above: Order Comment: Speci men Type: BLOOD SPECIMEN [facility] Address: [address] [place] [address] Performed By: #### C RET1 #### [facility] CLIA [id number] [address] [place] [address] [place] Bilirubin Ql (U) Negative Normal Negative [facility] Comment on above: Order Comment: Speci men Type: BLOOD SPECIMEN [facility]ing Facility[facility] Address: [address] [place], [place] [address]A[place]ia , [place] [address] Performed By: #### C RET1 #### [facility] CLIA [id number] [facility] [place] [address] [place] Clarity (Unsp spec) Clear Normal Clear [facility] Comment on above: Order Comment: Speci men Type: BLOOD SPECIMEN [facility] Address: [address] [place], [place] [address]SHRUTHIAleshia , [place] [address] Performed By: #### C RET1 #### [facility] CLIA [id number] [address] [place] Color (U) Yellow Normal Yellow [facility] Comment on above: Order Comment: Speci men Type: BLOOD SPECIMEN [facility] Address: [address] [place] [address] ADINAMARIA GUADALUPE MILLER, [place] [address] Performed By: #### C RET1 #### [facility] CLIA [id number] [address] [place] Epithelial cells LM.HPF (Urine sed) [#/Area] Few Normal [facility] Comment on above: Order Comment: Speci men Type: BLOOD SPECIMEN [facility] Address: [address] [place], [place] [address]MARIA GUADALUPE MILLER, [place] [address] Performed By: #### C RET1 #### [facility] CLIA [id number] [facility] [address] [place] Glucose Test strip (U) [Mass/Vol] Negative Normal Negative [facility] Comment on above: Order Comment: Speci men Type: BLOOD SPECIMEN [facility] Address: [address] [place], [place] [address]MARIA GUADALUPE MILLER, [place] [address] Performed By: #### C RET1 #### [facility] CLIA [id number] [address] [place] Hemoglobin Ql (U) Negative Normal [facility] Comment on above: Order Comment: Speci men Type: BLOOD SPECIMEN [facility] Address: [address] [place], [place] [address]MARIA GUADALUPE MILLER, [place] [address] Performed By: #### C RET1 #### [facility] CLIA [id number] [address] [place] [address] [place] Hyaline casts (Urine sed) [#/Area] 0 /[LPF] Normal 0 /LPF [facility] Comment on above: Order Comment: Speci men Type: BLOOD SPECIMEN [facility] Address: [address] [place], [place] [address]MARIA GUADALUPE MILLER, [place] [address] Performed By: #### C RET1 #### [facility] CLIA [id number] [address] [place] [address] [place] Ketones Ql (U) Negative Normal Negative [facility] Comment on above: Order Comment: Speci men Type: BLOOD SPECIMEN [facility] Address: [address] [place] [address] JUSTINAleshia MILLER, [place] [address] Performed By: #### C RET1 #### [facility] CLIA [id number] [address] [place] [address] [place] Leukocyte esterase Test strip Ql (U) Negative Normal Negative [facility] Comment on above: Order Comment: Speci men Type: BLOOD SPECIMEN [facility]ing [facility]: [facility] Address: [address] [place] [address] ADINAMARIA GUADALUPE MILLER, [place] [address] Performed By: #### C RET1 #### [facility] CLIA [id number] [address] [place] [address] [place] Nitrite Ql (U) Negative Normal Negative [facility] Comment on above: Order Comment: Speci men Type: BLOOD SPECIMEN [facility] Address: [address] [place] [address] ADINAMARIA GUADALUPE MILLER, [place] [address] Performed By: #### C RET1 #### [facility] CLIA [id number] [address] [place] [address] [place] pH (U) 7.0 [pH] Normal <8.5 [facility] Comment on above: Order Comment: Speci men Type: BLOOD SPECIMEN [facility] Address: [address] [place] [address] JUSTINAleshia MILLER, [place] [address] Performed By: #### C RET1 #### [facility] CLIA [id number] [address] [id number] [place] Protein (U) [Mass/Vol] Negative Normal Negative [facility] Comment on above: Order Comment: Speci men Type: BLOOD SPECIMEN [facility] Address: [address] [place] [address] Performed By: #### C RET1 #### [facility] IA [id number] [address] [place] [address] [place] RBC LM.HPF (Urine sed) [#/Area] 0-2 /HPF Normal 0-2 /HPF [facility] Comment on above: Order Comment: Speci men Type: BLOOD SPECIMEN [facility] Address: [address] [place] [address] Performed By: #### C RET1 #### [facility] [id number] [address] [place] [address] [place] Specific gravity (U) [Rel density] 1.016 Normal 1.005-1.03 0 [facility] Comment on above: Order Comment: Speci men Type: BLOOD SPECIMEN [facility] Address: [address] [place] [address] Performed By: #### C RET1 #### [facility] [id number] [address] [place] [address] [place] Urobilinogen Ql (U) 1.0 EU/dL Normal 0.2-1.0 EU/dL [facility] Comment on above: Order Comment: Speci men Type: BLOOD SPECIMEN [facility] Address: [address] [place] [address] Performed By: #### C RET1 #### [facility] [id number] [address] [place] [address] [place] WBC LM.HPF (Urine sed) [#/Area] 0-5 /HPF Normal 0-5 /HPF [facility] Comment on above: Order Comment: Speci men Type: BLOOD SPECIMEN [facility] Address: [address] [place], [place] [address] [address] Performed By: #### C RET1 #### [facility] CLIA [id number] [address] [facility] [address] [facility] [place] CNCPebbles 12-25-2023 [facility] HNO ID: [id number] Author: COORDINATOR, MAMMOGRAPHY, ? Service: ? Author Type: Physician Type: Letter Filed: 12/25/2023 20:44 Note Text: December 26, 2023 PID: [id number] Cassia Holland [address] [place] [address] Dear Ms. Holland, We are pleased to [...] report will be kept on file at [facility] as part of your permanent medical record and are available for your continuing care. Thank you for allowing us to help in meeting your health care needs. Sincerely, Dr. Jameson Interpreting Radiologist [facility] (Normal over 40) Normal [facility] DBT Breast - bilateral scree florenciogon 12-25-2023 IMPRESSION: BENIGN There is no mammographic evidence of malignancy. A 1 year screening mammogram is recommended. Gene thornton/penrad:12/25/2023 20:44:15 [employer] Worker(s): RT Aleksandar(R)(M), [facility] letter sent: Normal over 40 Mammogram [...] Health, Family Medicine, and Medical/Surgical Oncology, the [facility] has carefully reviewed the data and reached [...] their providers when to stop screening mammograms. Refrigeration Insulator: William Transcribe Date/Time: Dec 25 2023 8:31A Dictated by: GENE JAMESON MD This examination was interpreted and the report reviewed and electronically signed by: GENE JAMESON MD on Dec 25 2023 8:44PM [facility] DIVISION OF RADIOLOGY * * *Final Report* * * DATE OF EXAM: Dec 25 2023 2:26PM [facility] 0582 - [facility] SCREENING W ROBERT / PROCEDURE REASON: Encounter for screening mammogram for breast cancer * * * * Physician Interpretation * * * * RESULT: #[id number] - [facility] SCREENING W ROBERT BILATERAL DIGITAL SCREENING MAMMOGRAM [...] mammogram, 09/22/2021 mammogram, and 03/15/2020 mammogram - [facility]. The breasts are heterogeneously dense, which may obscure small masses. There are benign calcifications in both breasts. No significant masses, calcifications, or other findings are seen in either breast. There has been no significant interval change. DIVISION OF RADIOLOGY Provider, [facility] - 12/25/2023 * * *Final Report* * * DATE OF EXAM: Dec 25 2023 2:26PM [facility] 0582 - [facility] SCREENING W ROBERT / PROCEDURE REASON: Encounter for screening mammogram for breast cancer * * * * Physician Interpretation * * * * RESULT: #[id number] - [facility] SCREENING W ROBERT BILATERAL DIGITAL [...] mammogram, 09/22/2021 mammogram, and 03/15/2020 mammogram - [facility]. The breasts are heterogeneously dense, which may obscure small masses. There are benign calcifications in both breasts. No significant masses, calcifications, or other findings are seen in either breast. There has been no significant interval change. IMPRESSION IMPRESSION: BENIGN There is no mammographic evidence of malignancy. A 1 year screening mammogram is recommended. Gene thornton/william:12/25/2023 20:44:15 [employer] [place] Worker(s): RT Aleksandar(R)(M), [facility] letter sent: Normal over 40 Mammogram [...] Health, Family Medicine, and Medical/Surgical Oncology, the [facility] has carefully reviewed the data and reached [...] their providers when to stop screening mammograms. Refrigeration Insulator: William Transcribe Date/Time: Dec 25 2023 8:31A Dictated by: GENE JAMESON MD This examination was interpreted and the report reviewed and electronically signed by: GENE JAMESON MD on Dec 25 2023 8:44PM EST [facility] Radiology Study observation (narrative) [facility] DBT Breast - bilateral scree ningOrdered By: [facility]cf Provider on 12-25-2023 [facility] MIN SCREENING W TOMOon 12-24 MIN SCREENING W ROBERT * * *Final Report* * * DATE OF EXAM: Dec 25 2023 2:26PM [facility] 0582 - MIN SCREENING W ROBERT / PROCEDURE REASON: Encounter for screening mammogram for breast cancer * * * * Physician Interpretation * * * * RESULT: #[id number] - [facility] SCREENING W ROBERT BILATERAL DIGITAL SCREENING MAMMOGRAM [...] mammogram, 09/22/2021 mammogram, and 03/15/2020 mammogram - [facility]. The breasts are heterogeneously dense, which may obscure small masses. There are benign calcifications in both breasts. No significant masses, calcifications, or other findings are seen in either breast. There has been no significant interval change. IMPRESSION: BENIGN There is no mammographic evidence of malignancy. A 1 year screening mammogram is recommended. Gene thornton/william:12/25/2023 20:44:15 [employer] [place] Worker(s): RT Aleksandar(R)(M), [facility] letter sent: Normal over 40 Mammogram [...] Health, Family Medicine, and Medical/Surgical Oncology, the [facility] has carefully reviewed the data and reached [...] their providers when to stop screening mammograms. Refrigeration Insulator: William Transcribe Date/Time: Dec 25 2023 8:31A Dictated by: GENE JAMESON MD This examination was interpreted and the report reviewed and electronically signed by: GENE JAMESON MD on Dec 25 2023 8:44PM EST [id number] Normal [facility] ALBUMIN/CREATININE RATIO, UR INEon 12-18-2023 Albumin DL <= 20 mg/L (U) [Mass/Vol] mg/dL Normal [facility] Comment on above: Order Comment: Speci men Type: URINE SPECIMENOrdering Facility: [facility] Address: [address] [place] [address] Performed By: #### U ACR ####[facility] [id number] [place] [address] [place] Albumin/Creatinine (U) [Mass ratio] <21 Normal <30 [facility] Comment on above: Order Comment: Speci men Type: URINE SPECIMENOrdering Facility: [facility] Address: [address] [place] [address] Result Comment: Adul t Male and Female Nephrotic Criteria: <30 mg/g is considered normal to mildly increased 30-300 mg/g is considered moderately increased >300 mg/g is considered severely increased KDIGO. (2013). KDIGO 2012 Clinical Practice Guideline for the Evaluation and Management of Chronic Kidney Disease. Official Journal of the International Society of Nephrology, 3(1), 1-150. Performed By: #### U ACR ####[facility] [id number] [place] [address] [place] Creatinine (U) [Mass/Vol] 56.0 mg/dL Normal 20.0-300.0 [facility] Comment on above: Order Comment: Speci men Type: URINE SPECIMENOrdering Facility: [facility] Address: [address] [place] [address] Performed By: #### U ACR ####[facility] [id number] [address] [place] CBC W Auto Differential pane l (Bld)on 12-18-2023 Basophils (Bld) [#/Vol] [facility] Basophils/100 WBC (Bld) 0.6 % [facility] Differential cell count method Nom (Bld) Auto [facility] Eosinophils (Bld) [#/Vol] 0.09 10*3/uL [facility] Eosinophils/100 WBC (Bld) 2.9 % [facility] Erythrocyte distribution width (RBC) [Ratio] 15.9 % High 11.5 - 15.0 % [facility] Hematocrit (Bld) [Volume fraction] 32.2 % Low 36.0 - 46.0 % [facility] Hemoglobin (Bld) [Mass/Vol] 10.5 g/dL Low 11.5 - 15.5 g/dL [facility] Immature granulocytes (Bld) [#/Vol] [facility] Immature granulocytes/100 WBC (Bld) 0.3 % [facility] Interpretation and review of laboratory results Abnormal [facility] Lymphocytes (Bld) [#/Vol] 0.86 10*3/uL Low [facility] Lymphocytes/100 WBC (Bld) 27.7 % [facility] MCH (RBC) [Entitic mass] 32.4 pg 26.0 - 34.0 pg [facility] MCHC (RBC) [Mass/Vol] 32.6 g/dL 30.5 - 36.0 g/dL [facility] MCV (RBC) [Entitic vol] 99.4 fL 80.0 - 100.0 fL [facility] Monocytes (Bld) [#/Vol] 0.37 10*3/uL [facility] Monocytes/100 WBC (Bld) 11.9 % [facility] Neutrophils (Bld) [#/Vol] 1.75 10*3/uL [facility] Neutrophils/100 WBC (Bld) 56.6 % [facility] Nucleated RBC (Bld) [#/Vol] NINF [facility] Nucleated RBC/100 WBC (Bld) [Ratio] 0.0 % /100 WBC [facility] Platelet mean volume (Bld) [Entitic vol] 11.5 fL 9.0 - 12.7 fL [facility] Platelets (Bld) [#/Vol] 149 10*3/uL Low [facility] RBC (Bld) [#/Vol] 3.24 10*6/uL Low 3.90 - 5.20 m/uL [facility] WBC (Bld) [#/Vol] 3.10 10*3/uL Low [facility] Basophils (Bld) [#/Vol] 10*3/uL Normal <0.11 [facility] Comment on above: Order Comment: Speci men Type: BLOOD SPECIMENOrdering Facility: [facility] Address: [address] [place] [address] Performed By: #### 5 7021-8 ####[facility] [id number] [place] [address] [place] Basophils/100 WBC (Bld) 0.6 % Normal [facility] Comment on above: Order Comment: Speci men Type: BLOOD SPECIMENOrdering Facility: [facility] Address: [address] [place] [address] Performed By: #### 5 7021-8 ####[facility] [id number] [place] [address] [place] Differential cell count method Nom (Bld) Auto Normal [facility] Comment on above: Order Comment: Speci men Type: BLOOD SPECIMENOrdering Facility: [facility] Address: [address] [place] [address] Performed By: #### 5 7021-8 ####[facility] [id number] [place] [address] [place] Eosinophils (Bld) [#/Vol] 0.09 10*3/uL Normal <0.46 [facility] Comment on above: Order Comment: Speci men Type: BLOOD SPECIMENOrdering Facility: [facility] Address: [address] [place] [address] Performed By: #### 5 7021-8 ####[facility] [id number] [place] [address] [place] Eosinophils/100 WBC (Bld) 2.9 % Normal [facility] Comment on above: Order Comment: Speci men Type: BLOOD SPECIMENOrdering Facility: [facility] Address: [address] [place] [address] Performed By: #### 5 7021-8 ####[facility] [id number] [place] [address] [place] Erythrocyte distribution width (RBC) [Ratio] 15.9 % High 11.5-15.0 [facility] Comment on above: Order Comment: Speci men Type: BLOOD SPECIMENOrdering Facility: [facility] Address: [address] [place] [address] Performed By: #### 5 7021-8 ####[facility] [id number] [place] [address] [place] Hematocrit (Bld) [Volume fraction] 32.2 % Low 36.0-46.0 [facility] Comment on above: Order Comment: Speci men Type: BLOOD SPECIMENOrdering Facility: [facility] Address: [address] [place] [address] Performed By: #### 5 7021-8 ####[facility] [id number] [place] [address] [place] Hemoglobin (Bld) [Mass/Vol] 10.5 g/dL Low 11.5-15.5 [facility] Comment on above: Order Comment: Speci men Type: BLOOD SPECIMENOrdering Facility: [facility] Address: [address] [place] [address] Performed By: #### 5 7021-8 ####[facility] [id number] [place] [address] [place] Immature granulocytes (Bld) [#/Vol] 10*3/uL Normal <0.10 [facility] Comment on above: Order Comment: Speci men Type: BLOOD SPECIMENOrdering Facility: [facility] Address: [address] [place] [address] Performed By: #### 5 7021-8 ####[facility] [id number] [place] [address] [place] Immature granulocytes/100 WBC (Bld) 0.3 % Normal [facility] Comment on above: Order Comment: Speci men Type: BLOOD SPECIMENOrdering Facility: [facility] Address: [address] [place] [address] Performed By: #### 5 7021-8 ####[facility] [id number] [place] [address] [place] Lymphocytes (Bld) [#/Vol] 0.86 10*3/uL Low 1.00-4.00 [facility] Comment on above: Order Comment: Speci men Type: BLOOD SPECIMENOrdering Facility: [facility] Address: [address] [place] [address] Performed By: #### 5 7021-8 ####[facility] [id number] [place] [address] [place] Lymphocytes/100 WBC (Bld) 27.7 % Normal [facility] Comment on above: Order Comment: Speci men Type: BLOOD SPECIMENOrdering Facility: [facility] Address: [address] [place] [address] Performed By: #### 5 7021-8 ####[facility] [id number] [place] [address] [place] MCH (RBC) [Entitic mass] 32.4 pg Normal 26.0-34.0 [facility] Comment on above: Order Comment: Speci men Type: BLOOD SPECIMENOrdering Facility: [facility] Address: [address] [place] [address] Performed By: #### 5 7021-8 ####[facility] [id number] [place] [address] [place] MCHC (RBC) [Mass/Vol] 32.6 g/dL Normal 30.5-36.0 [facility] Comment on above: Order Comment: Speci men Type: BLOOD SPECIMENOrdering Facility: [facility] Address: [address] [place] [address] Performed By: #### 5 7021-8 ####[facility] [id number] [place] [address] [place] MCV (RBC) [Entitic vol] 99.4 fL Normal 80.0-100.0 [facility] Comment on above: Order Comment: Speci men Type: BLOOD SPECIMENOrdering Facility: [facility] Address: [address] [place] [address] Performed By: #### 5 7021-8 ####[facility] [id number] [place] [address] [place] Monocytes (Bld) [#/Vol] 0.37 10*3/uL Normal <0.87 [facility] Comment on above: Order Comment: Speci men Type: BLOOD SPECIMENOrdering Facility: [facility] Address: [address] [place] [address] Performed By: #### 5 7021-8 ####[facility] [id number] [address] [address] [place] Monocytes/100 WBC (Bld) 11.9 % Normal [facility] Comment on above: Order Comment: Speci men Type: BLOOD SPECIMENOrdering Facility: [facility] Address: [address] [place] [address] Performed By: #### 5 7021-8 ####[facility] [id number] [place] [address] [place] Neutrophils (Bld) [#/Vol] 1.75 10*3/uL Normal 1.45-7.50 [facility] Comment on above: Order Comment: Speci men Type: BLOOD SPECIMENOrdering Facility: [facility] Address: [address] [place] [address] Performed By: #### 5 7021-8 ####[facility] [id number] [place] [address] [place] Neutrophils/100 WBC (Bld) 56.6 % Normal [facility] Comment on above: Order Comment: Speci men Type: BLOOD SPECIMENOrdering Facility: [facility] Address: [address] [place] [address] Performed By: #### 5 7021-8 ####[facility] LABCLIA [id number] [place] [address] [place] Nucleated RBC (Bld) [#/Vol] 10*3/uL Normal <0.01 [facility] Comment on above: Order Comment: Speci men Type: BLOOD SPECIMENOrdering Facility: [facility] Address: [address] [place] [address] Performed By: #### 5 7021-8 ####[facility]CL[facility] [id number] [place] [id number] [place] Nucleated RBC/100 WBC (Bld) [Ratio] 0.0 /100 WBC Normal [facility] Comment on above: Order Comment: Speci men Type: BLOOD SPECIMENOrdering Facility: [facility] Address: [address] [place] [address] Performed By: #### 5 7021-8 ####[facility] LABIA [id number] [place] [address] [place] Platelet mean volume (Bld) [Entitic vol] 11.5 fL Normal 9.0-12.7 [facility] Comment on above: Order Comment: Speci men Type: BLOOD SPECIMENOrdering Facility: [facility] Address: [address] [place] [address] Performed By: #### 5 7021-8 ####[facility] LABIA [id number] [place] [address] [place] Platelets (Bld) [#/Vol] 149 10*3/uL Low 150-400 [facility] Comment on above: Order Comment: Speci men Type: BLOOD SPECIMENOrdering Facility: [facility] Address: [address] [place] [address] Performed By: #### 5 7021-8 ####[facility] LABIA [id number] [place] [address] [place] RBC (Bld) [#/Vol] 3.24 10*6/uL Low 3.90-5.20 [facility] Comment on above: Order Comment: Speci men Type: BLOOD SPECIMENOrdering Facility: [facility] Address: [address] [place] [address] Performed By: #### 5 7021-8 ####[facility] LABIA [id number] [place] [address] [place] WBC (Bld) [#/Vol] 3.10 10*3/uL Low 3.70-11.00 [facility] Comment on above: Order Comment: Speci men Type: BLOOD SPECIMENOrdering Facility: [facility] Address: [address] [place] [address] [place] [address] Performed By: #### 5 7021-8 ####[facility] LABCLSAURAV [id number] [facility] HARMONYMAB[id number] [address] [place] CNOVon 12-18-2023 CNOV Office Visit (INTMWS ) CASSIA HOLLAND ([id number]) 1965 F Date Time Provider Department 12/18/23 8:00 AM SHAHRIAR BROWN INTLIBRA During your visit today, we recorded the following information about you: Pulse Respiration Blood pressure Weight 80/minute 16/minute 138/80 86.2 kg Shahriar Brown APRN.NURSE STAFF 12/18/2023 9:45 AM Signed CC: Patient presents [...] mouth on (more content not included)... Normal [facility] Ferritin SerPl-mCncon 2023 Ferritin [Mass/Vol] 139.0 ng/mL Normal 14.7-205.1 [facility] Comment on above: Order Comment: Speci men Type: BLOOD SPECIMENOrdering Facility: [facility] Address: [address] [place] [address] [place] [address] Performed By: #### 3 016-3, 2276-4, 89293-9 ####[facility]CLIA [id number] [place] [address] [place] HbA1c (Bld)on 12-18-2023 Average glucose Estimated from glycated hemoglobin (Bld) [Mass/Vol] 114 mg/dL Normal [facility] Comment on above: Order Comment: Speci men Type: BLOOD SPECIMENOrdering Facility: [facility] Address: [address] [place] [address] Result Comment: eAG: (Estimated average glucose) is a calculated value from HgbA1c and is patient registration representative of the average blood glucose level in the last 2-3 month period. Performed By: #### 5 5454-3 ####[facility] LABIA [id number] [place] [address] [place] HbA1c (Bld) [Mass fraction] 5.6 % Normal 4.3-5.6 [facility] Comment on above: Order Comment: Natashai men Type: BLOOD SPECIMENOrdering Facility: [facility] Address: [address] [place] [address] Result Comment: [place] Diabetes Association guidelines indicate that patients with HgbA1c in the range 5.7-6.4% are at increased risk for development of diabetes, and intervention by lifestyle modification may be beneficial. HgbA1c greater or equal to 6.5% is considered diagnostic of diabetes. Performed By: #### 5 5454-3 ####[facility] LABIA [id number] [place] [address] [place] Iron and Iron binding capaci ty panelon 12-18-2023 Iron [Mass/Vol] 250 ug/dL High 41-186 [facility] Comment on above: Order Comment: Speci men Type: BLOOD SPECIMENOrdering Facility: [facility] Address: [address] [place] [address] Performed By: #### 3 016-3, 2276-4, 28904-7 ####[facility] LABIA [id number] [place] [address] [place] Iron binding capacity [Mass/Vol] 330 ug/dL Normal 232-386 [facility] Comment on above: Order Comment: Speci men Type: BLOOD SPECIMENOrdering Facility: [facility] Address: [address] [place] [address] Performed By: #### 3 016-3, 2276-4, 13263-2 ####[facility] LABCLIA [id number] [place] [id number] [place] Iron/TIBC [Molar ratio] 75.8 % High 15.0-57.0 [facility] Comment on above: Order Comment: Speci men Type: BLOOD SPECIMENOrdering Facility: [facility] Address: [address] [place] [address] Performed By: #### 3 016-3, 2276-4, 44872-9 ####[facility] LABCLIA [id number] [place] [id number] [place] TSH SerPl-aCncon 12-18-2023 TSH Qn 1.410 m[IU]/L Normal 0.270-4.20 0 [facility] Comment on above: Order Comment: Speci men Type: BLOOD SPECIMENOrdering Facility: [facility] Address: [address] [place] [address] Performed By: #### 3 016-3, 2276-4, 60328-3 ####[facility] LABIA [id number] [place] [address] [place] Lipid Profileon 12-11-2023 Cholesterol [Mass/Vol] 143 mg/dL Normal 200 [facility] Comment on above: Result Comment: <200 mg/dL Desirable 200-240 mg/dL Borderline >240 mg/dL High Risk Performed By: #### L 500.3400, L500.4100 ####[facility] [address] [place], [place], [id number] Cholesterol in HDL [Mass/Vol] 37 mg/dL Low [facility] Comment on above: Result Comment: The drugs N-Acetylcysteine and Metamizole may falselydepress this assay. Reference Range HDL <40 mg/dL Low HDL Cholesterol HDL >or= 60 mg/dL High HDL Cholesterol Performed By: #### L 500.3400, L500.4100 ####[facility] [address] [place], [address] Cholesterol in LDL [Mass/Vol] 89 mg/dL Normal 0-130 [facility] Comment on above: Performed By: #### L 500.3400, L500.4100 ####[facility] [address] [place], [address] Cholesterol in VLDL [Mass/Vol] 17 mg/dL Normal 5-40 [facility] Comment on above: Performed By: #### L 500.3400, L500.4100 ####[facility] [address] [place], [address] Triglyceride [Mass/Vol] 83 mg/dL Normal [facility] Comment on above: Result Comment: The drugs N-Acetylcysteine and Metamizole may falselydepress this assay.Serum Triglycerides Reference Interval Normal <150 mg/dL Borderline high 150 - 199 mg/dL High 200 - 499 mg/dL Very High > or = 500 mg/dL Performed By: #### L 500.3400, L500.4100 ####[facility] [address] [place], [address] Liver Profileon 12-11-2023 Albumin [Mass/Vol] 3.2 g/dL Normal 3.2-5.0 [facility] Comment on above: Performed By: #### L 500.3400, L500.4100 ####[facility] [address] [place], [address] ALK P 125 U/L High 45-117 [facility] Comment on above: Performed By: #### L 500.3400, L500.4100 ####[facility] [address] [place], [address] ALT [Catalytic activity/Vol] 97 U/L High 13-56 [facility] Comment on above: Performed By: #### L 500.3400, L500.4100 ####[facility] [address] [place], [address] AST [Catalytic activity/Vol] 95 U/L High 15-37 [facility] Comment on above: Performed By: #### L 500.3400, L500.4100 ####[facility] [address] [place], [address] Bilirubin [Mass/Vol] 0.70 mg/dL Normal 0.20-1.00 [facility] Comment on above: Result Comment: For patients on eltrombopag therapy, use of Dimension [place] TBIL is not recommended. Performed By: #### L 500.3400, L500.4100 ####[facility] [address] [place], [address] Bilirubin.direct [Mass/Vol] 0.21 mg/dL Normal 0.00-0.30 [facility] Comment on above: Performed By: #### L 500.3400, L500.4100 ####[facility] [address] [place], [address] Globulin (S) [Mass/Vol] 4.4 g/dL High 2.2-4.2 [facility] Comment on above: Performed By: #### L 500.3400, L500.4100 ####[facility] [address] [place], [address] T PROT 7.6 g/dL Normal 6.4-8.2 [facility] Comment on above: Performed By: #### L 500.3400, L500.4100 ####[facility] [address] [place], [address] ACT* LOW RANGE, POCon 2023 ACT LOW RANGE, POC 361.0 High [facility] Interpretation and review of laboratory results Abnormal [facility] Test performed at ad dress of the patient encounter. [facility]OW [facility], POC 393.0 High [facility] Interpretation and review of laboratory results Abnormal [facility] Test performed at ad dress of the patient encounter. [facility] ACT LOW RANGE, POC [facility] Comment on above: Out of Range High. The test result is outside clinical range and should not be used for patient-management decisions. Test performed at ad dress of the patient encounter. [facility] ACT LOW RANGE, POC [facility] Comment on above: Out of Range High. The test result is outside clinical range and should not be used for patient-management decisions. Test performed at ad dress of the patient encounter. [facility] Electrophysiology studyon Body surface area Derived from formula 1.88 m2 [facility] Cassia Holland is a 58 y.o. female with paroxysmal atrial fibrillation who presented to the [facility] EP lab for atrial fibrillation ablation. CT [...] monitor per protocol. Follow up with EP FURNITURE FABRICATOR in 3 months. Discharge home today. [facility] Radiology Study observation (narrative) [facility] GLUCOSE POCon 09-27-2023 Glucose [Mass/Vol] 128 mg/dL High 70 - 99 mg/dL [facility] Comment on above: Notified RNread back Interpretation and review of laboratory results Abnormal [facility] POC Sample Type CAPBL [facility] Test performed at ad dress of the patient encounter. [facility] Glucose [Mass/Vol] 113 mg/dL High 70 - 99 mg/dL [facility] Interpretation and review of laboratory results Abnormal [facility] POC Sample Type CAPBL [facility] Test performed at ad dress of the patient encounter. [facility] PT,INR,PTTon 09-27-2023 aPTT Coag (PPP) [Time] 34.6 s High [facility] INR Coag (Bld) [Relative time] 1.4 {INR} High 0.9 - 1.1 [facility] Interpretation and review of laboratory results Abnormal [facility] PT Coag (PPP) [Time] 17.4 s High [facility] Chest>Heart.atrium.left+Pulm onary veins CT angiogram and 3D reconstruction W contrast Margarita 09-26-[address] [facility] CT Report Name: CASSIA HOLLAND : 1965 [...] good. SCAN INFO TEST TYPE: Venogram SCANNER PARTS COUNTER CLERK: Umeng SCANNER MODEL: NAEOTOM Alpha DOSE REDUCTION ALGORITHM: Prospective/Efmv-fro-fnqpi SCAN COVERAGE ZONE: Pulmonary Veins/SUKH EKG GATED: [...] Jurado ATTENDING PHYSICIAN: ASMITA Moe TECHNOLOGIST: Bela TYLER (R) (CT) BILLING Patient Account [id number] CPT Codes 24854 ICD10 Codes I48.0 Report generated by [employer], a product of [employer] CARDIOLOGY Asmita Roberts MD - 09/26/[address] [facility] [address] Report Name: CASSIA HOLLAND : 1965 [...] SCAN INFO ==== TEST TYPE: Venogram SCANNER PARTS COUNTER CLERK: Umeng SCANNER MODEL: NAEOTOM Alpha DOSE REDUCTION ALGORITHM: Prospective/Zoxw-wjz-nojit SCAN COVERAGE ZONE: Pulmonary Veins/SUKH EKG GATED: [...] RT (R) (CT) BILLING ==== Patient Account [id number] CPT Codes 71046 ICD10 Codes I48.0 Report generated by [employer], a product of [employer] [facility] Radiology Study observation (narrative) [facility] Chest>Heart.atrium.left+Pulm onary veins CT angiogram and 3D reconstruction W contrast IVOrdered By: Asmita Roberts on 09-26-2023 [facility] Work Phone: Absolute lymphocyte countOrd ered By: Raffi Rendon on 08-28-2023 Lymphocytes Auto (Unsp spec) [#/Vol] 1.16 10*3/uL 0.83-4.51 [facility] Automated lymphocyte count a s percentage of total leukocytesOrdered By: Raffi Rendon on 08-28-2023 Lymphocytes/100 WBC Auto (Unsp spec) 27.4 % 19-41 [facility] Basophil percentageOrdered B y: Raffi Rendon on 08-28-2023 Basophils/100 WBC (Bld) 0.2 % 0-1 [facility] Bilirubin [Mass/Vol] 0.40 mg/dL 0.20-1.00 [facility] Comment on above: For patients on eltr ombopag therapy, use of Dimension [place] TBIL is not recommended. Chloride [Moles/Vol] 103 mmol/L 98-107 [facility] Eosinophils/100 WBC (Bld) 0.9 % 0-5 [facility] Glucose [Mass/Vol] 154 mg/dL 74-106 [facility] Comment on above: Fasting Glucose resu lt greater than or equal to 126 mg/dL suggests DIABETES MELLITUS per A.D.A. criteria. Hemoglobin (Bld) [Mass/Vol] 11.2 g/dL 12.0-15.0 [facility] Monocytes/100 WBC (Bld) 9.2 % 0-10 [facility] Neutrophils (Bld) [#/Vol] 2.6 10*3/uL 2.0-7.7 [facility] Neutrophils/100 WBC (Bld) 62.1 % 47-70 [facility] Potassium [Moles/Vol] 4.4 mmol/L 3.5-5.1 [facility] Protein [Mass/Vol] 7.2 g/dL 6.4-8.2 [facility] Sodium [Moles/Vol] 134 mmol/L 136-145 [facility] WBC (Bld) [#/Vol] 4.2 10*3/uL 4.4-11.0 [facility] Blood manual differential co mment interpretation (narrative result)Ordered By: Raffi Rendon on 08-28-2023 Manual differential comment Tho (Bld) [Interp] See comment [facility] Comment on above: 2+ ANISOCYTOSIS Determination of erythrocyte mean corpuscular volume (MCV)Ordered By: Raffi Rendon on 08-28-2023 MCV (RBC) [Entitic vol] 86.9 fL 81-99 [facility] Direct bilirubinOrdered By: Raffi Rendon on 08-28-2023 Bilirubin.direct [Mass/Vol] 0.13 mg/dL 0.00-0.30 [facility] Erythrocyte distribution wid th ratioOrdered By: Raffi Rendon on 08-28-2023 Erythrocyte distribution width (RBC) [Ratio] 24.1 % 11.6-14.6 [facility] Erythrocyte distribution wid th standard deviationOrdered By: Raffi Rendon on 08-28-2023 Erythrocyte distribution width (RBC) [Entitic vol] 75.6 fL 35.1-43.9 [facility] Hematocrit Auto (Bld) [Volum e fraction]Ordered By: Raffi Rendon on 08-28-2023 Hematocrit (Bld) [Volume fraction] 35.8 % 37-47 [facility] Immature granulocytes/100 WB C Auto (Bld)Ordered By: Raffi Samshmy on 08-28-2023 Immature granulocytes/100 WBC (Bld) 0.200 % 0.0-0.9 [facility] Comment on above: IG% - Immature Granu locytes (promyelocytes, myelocytes and metamyelocytes) > 1% indicates that a LEFT SHIFT is Present. Iron measurement (mass/mass) Ordered By: Raffi Rendon on 08-28-2023 Iron (Unsp spec) [Mass/Mass] 42 ug/dL 50-170 [facility] Laboratory - Chemistry and C hemistry - challengeOrdered By: Raffi Rendon on 08-28-2023 ALP [Catalytic activity/Vol] 105 U/L 45-117 [facility] ALT [Catalytic activity/Vol] 139 U/L 13-56 [facility] CO2 [Moles/Vol] 24.0 mmol/L 21.0-32.0 [facility] Cobalamin (Vitamin B12) [Mass/Vol] 336 pg/mL 211-911 [facility] Ferritin [Mass/Vol] 58 ng/mL 8-252 [facility] Globulin (S) [Mass/Vol] 4.0 g/dL 2.2-4.2 [facility] Urea nitrogen/Creatinine [Mass ratio] 17.5 mg/mg 10-20 [facility] Laboratory - CoagulationOrde red By: Raffi Rendon on 08-28-2023 INR Coag (Bld) [Relative time] 1.2 {INR} [facility] PT Coag (PPP) [Time] 15.1 s 11.7-14.9 [facility] Laboratory - Hematology and Cell countsOrdered By: Raffi Rendon on 08-28-2023 MCH (RBC) [Entitic mass] 27.2 pg 27.0-32.0 [facility] MCHC (RBC) [Mass/Vol] 31.3 g/dL 32-36 [facility] Nucleated RBC/100 WBC (Bld) [Ratio] 0 % 0-5 [facility] Platelet mean volume (Bld) [Entitic vol] 11.2 fL 6.2-12.0 [facility] Platelets (Bld) [#/Vol] 138 10*3/uL 150-450 [facility] No Panel InformationOrdered By: Raffi Rendon on 08-28-2023 Estimated GFR (MDRD) Amer 126 mL/min >60 [facility] Comment on above: GFR Calc Estimated GFR (MDRD) Non-Af Amer 104 mL/min >60 [facility] Comment on above: Non- GFR Calc Total Iron Binding Capacity 325 ug/dL 250-450 [facility] Tumor Marker Alpha Fetoprotein 6.5 ng/mL 0.0-9.2 [facility] Comment on above: [facility] El ectrochemiluminescence Immunoassay(ECLIA)Values obtained with different assay methods or kits cannotbe used interchangeably. Results cannot be interpreted asabsolute evidence of the presence or absence of malignantdisease.This test is not interpretable in females.Performed at: [email or web address] - [address] [id number] Director: Jose Castillo PhD, Phone: [phone] Vitamin D 25-Hydroxy 34.9 ng/mL [facility] Comment on above: Vitamin D 25(OH) Sta tus Range Deficiency <20 ng/mL (50nmol/L) Insufficiency 20 - 30 ng/mL (50 - 75 nmol/L) Sufficiency 30 - 100 ng/mL (75 - 250 nmol/L) Toxicity >100 ng/mL (>250 nmol/L) RBC Auto (Bld) [#/Vol]Ordere d By: Raffi Rendon on 08-28-2023 RBC (Bld) [#/Vol] 4.12 10*6/uL 4.2-5.4 [facility] Serum or plasma calcium hailee urement (mass/volume)Ordered By: Raffi Rendon on 08-28-2023 Calcium [Mass/Vol] 8.7 mg/dL 8.5-10.1 [facility] Serum or plasma creatinine m easurement (mass/volume)Ordered By: Raffi Rendon on 08-28-2023 Creatinine [Mass/Vol] 0.63 mg/dL 0.55-1.02 [facility] Comment on above: The validity of the calculated GFR & GFRAA in patients over 70 years has not been determined. Clinical correlation is essential. Serum or plasma iron saturat ion measurement (mass fraction)Ordered By: Raffi Rendon on 08-28-2023 Iron saturation [Mass fraction] 12.9 % 15.0-55.0 [facility] Serum or plasma thyroid stim ulating hormone (TSH) measurement (units/volume)Ordered By: Raffi Julieta on 08-28-2023 TSH Qn 1.64 uIU/mL 0.358-3.74 [facility] Serum or plasma urea nitroge n measurement (mass/volume)Ordered By: Raffi Rendon on 08-28-2023 Urea nitrogen [Mass/Vol] 11 mg/dL 7-18 [facility] Thin prep Papanicolaou smear with manual screeningOrdered By: Raffi Rendon on 08-28-2023 Thin prep Papanicolaou smear with manual screening 3.2 g/dL 3.2-5.0 [facility] Thin prep Papanicolaou smear with manual screening 83 U/L 15-37 [facility] Thin prep Papanicolaou smear with manual screening 7 5-15 [facility] Basophil percentageOrdered B y: Alicia Manzano on 08-17-2023 Bilirubin [Mass/Vol] 0.50 mg/dL 0.20-1.00 [facility] Comment on above: For patients on eltr ombopag therapy, use of Dimension [place] TBIL is not recommended. Chloride [Moles/Vol] 104 mmol/L 98-107 [facility] Cholesterol [Mass/Vol] 196 mg/dL <200 [facility] Comment on above: <200 mg/dL Desirable 200-240 mg/dL Borderline >240 mg/dL High Risk Glucose [Mass/Vol] 93 mg/dL 74-106 [facility] Potassium [Moles/Vol] 4.3 mmol/L 3.5-5.1 [facility] Protein [Mass/Vol] 7.6 g/dL 6.4-8.2 [facility] Sodium [Moles/Vol] 135 mmol/L 136-145 [facility] Triglyceride [Mass/Vol] 83 mg/dL <199 [facility] Comment on above: The drugs N-Acetylcy steine and Metamizole may falsely depress this assay.Serum Triglycerides Reference Interval Normal <150 mg/dL Borderline high 150 - 199 mg/dL High 200 - 499 mg/dL Very High > or = 500 mg/dL Laboratory - Chemistry and C hemistry - challengeOrdered By: Alicia Manzano on 08-17-2023 Albumin/Globulin [Mass ratio] 0.8 {ratio} 0.9-2.4 [facility] ALP [Catalytic activity/Vol] 109 U/L 45-117 [facility] ALT [Catalytic activity/Vol] 190 U/L 13-56 [facility] Cholesterol in HDL [Mass/Vol] 60 mg/dL >40 [facility] Comment on above: The drugs N-Acetylcy steine and Metamizole may falsely depress this assay. Reference Range HDL <40 mg/dL Low HDL Cholesterol HDL >or= 60 mg/dL High HDL Cholesterol Cholesterol in LDL [Mass/Vol] 119 mg/dL 0-130 [facility] CO2 [Moles/Vol] 27.0 mmol/L 21.0-32.0 [facility] Globulin (S) [Mass/Vol] 4.2 g/dL 2.2-4.2 [facility] Urea nitrogen/Creatinine [Mass ratio] 23.6 mg/mg 10-20 [facility] No Panel InformationOrdered By: Alicia Manzano on 08-17-2023 Estimated GFR (MDRD) Amer 124 mL/min >60 [facility] Comment on above: GFR Calc Estimated GFR (MDRD) Non-Af Amer 102 mL/min >60 [facility] Comment on above: Non- GFR Calc VLDL Cholesterol 17 mg/dL 5-40 [facility] Serum or plasma calcium hailee urement (mass/volume)Ordered By: Alicia Manzano on 08-17-2023 Calcium [Mass/Vol] 9.1 mg/dL 8.5-10.1 [facility] Serum or plasma creatinine m easurement (mass/volume)Ordered By: Alicia Manzano on 08-17-2023 Creatinine [Mass/Vol] 0.64 mg/dL 0.55-1.02 [facility] Comment on above: The validity of the calculated GFR & GFRAA in patients over 70 years has not been determined. Clinical correlation is essential. Serum or plasma urea nitroge n measurement (mass/volume)Ordered By: Alicia Manzano on 08-17-2023 Urea nitrogen [Mass/Vol] 15 mg/dL 7-18 [facility] Thin prep Papanicolaou smear with manual screeningOrdered By: Alicia Manzano on 08-17-2023 Thin prep Papanicolaou smear with manual screening 3.4 g/dL 3.2-5.0 [facility] Thin prep Papanicolaou smear with manual screening 79 U/L 15-37 [facility] Thin prep Papanicolaou smear with manual screening 4 5-15 [facility] CBC W Auto Differential pane l (Bld)on 08-09-2023 Basophils (Bld) [#/Vol] <0.11 k/uL [facility] Basophils/100 WBC (Bld) 0.3 % [facility] Differential cell count method Nom (Bld) Auto [facility] Eosinophils (Bld) [#/Vol] 0.03 10*3/uL <0.46 k/uL [facility] Eosinophils/100 WBC (Bld) 0.5 % [facility] Erythrocyte distribution width (RBC) [Ratio] 23.9 % High 11.5 - 15.0 % [facility] Hematocrit (Bld) [Volume fraction] 36.8 % 36.0 - 46.0 % [facility] Hemoglobin (Bld) [Mass/Vol] 11.4 g/dL Low 11.5 - 15.5 g/dL [facility] Immature granulocytes (Bld) [#/Vol] <0.10 k/uL [facility] Immature granulocytes/100 WBC (Bld) 0.3 % [facility] Lymphocytes (Bld) [#/Vol] 2.27 10*3/uL 1.00 - 4.00 k/uL [facility] Lymphocytes/100 WBC (Bld) 34.1 % [facility] MCH (RBC) [Entitic mass] 26.1 pg 26.0 - 34.0 pg [facility] MCHC (RBC) [Mass/Vol] 31.0 g/dL 30.5 - 36.0 g/dL [facility] MCV (RBC) [Entitic vol] 84.4 fL 80.0 - 100.0 fL [facility] Monocytes (Bld) [#/Vol] 0.65 10*3/uL <0.87 k/uL [facility] Monocytes/100 WBC (Bld) 9.8 % [facility] Neutrophils (Bld) [#/Vol] 3.66 10*3/uL 1.45 - 7.50 k/uL [facility] Neutrophils/100 WBC (Bld) 55.0 % [facility] Nucleated RBC (Bld) [#/Vol] <0.01 k/uL [facility] Nucleated RBC/100 WBC (Bld) [Ratio] 0.0 /100 WBC [facility] Platelet mean volume (Bld) [Entitic vol] [facility] Platelets (Bld) [#/Vol] 170 10*3/uL 150 - 400 k/uL [facility] RBC (Bld) [#/Vol] 4.36 10*6/uL 3.90 - 5.20 m/uL [facility] WBC (Bld) [#/Vol] 6.65 10*3/uL 3.70 - 11.00 k/uL [facility] Gram stain for investigation of transfusion reactionOrdered By: Lauro Mason on 07-25-2023 Microscopic observation Gram stain Nom (Unsp spec) [facility] Microbial respiratory cultur eOrdered By: Lauor Mason on 07-25-2023 Bacteria identified Respiratory culture Nom (Unsp spec) or Staphylococcus aureus isolated. [facility] No Panel InformationOrdered By: Lauro Mason on 07-25-2023 Nasopharyngeal Culture Pseudomonas aeruginosa [facility] Absolute lymphocyte countOrd ered By: Freddy Lane on 06-21-2023 Lymphocytes Auto (Unsp spec) [#/Vol] 1.09 10*3/uL 0.83-4.51 [facility] Automated lymphocyte count a s percentage of total leukocytesOrdered By: Freddy Lane on 06-21-2023 Lymphocytes/100 WBC Auto (Unsp spec) 29.1 % 19-41 [facility] Basophil percentageOrdered B y: Freddy Lane on 06-21-2023 Basophil percentage 0 SEEN /hpf 0-5 [facility] Basophils/100 WBC (Bld) 0.3 % 0-1 [facility] Bilirubin [Mass/Vol] 0.50 mg/dL 0.20-1.00 [facility] Comment on above: For patients on eltr ombopag therapy, use of Dimension [place] TBIL is not recommended. Chloride [Moles/Vol] 104 mmol/L 98-107 [facility] Eosinophils/100 WBC (Bld) 1.9 % 0-5 [facility] Glucose [Mass/Vol] 80 mg/dL 74-106 [facility] Hemoglobin (Bld) [Mass/Vol] 8.9 g/dL 12.0-15.0 [facility] Monocytes/100 WBC (Bld) 9.9 % 0-10 [facility] Neutrophils (Bld) [#/Vol] 2.2 10*3/uL 2.0-7.7 [facility] Neutrophils/100 WBC (Bld) 58.5 % 47-70 [facility] Potassium [Moles/Vol] 4.2 mmol/L 3.5-5.1 [facility] Protein [Mass/Vol] 7.5 g/dL 6.4-8.2 [facility] Sodium [Moles/Vol] 134 mmol/L 136-145 [facility] WBC (Bld) [#/Vol] 3.8 10*3/uL 4.4-11.0 [facility] Bilirubin Test strip Ql (U)O rdered By: Freddy Lane on 06-21-2023 Bilirubin Ql (U) Negative Negative [facility] Determination of erythrocyte mean corpuscular volume (MCV)Ordered By: Freddy Lane on 06-21-2023 MCV (RBC) [Entitic vol] 81.5 fL 81-99 [facility] Erythrocyte distribution wid th ratioOrdered By: Freddy Lane on 06-21-2023 Erythrocyte distribution width (RBC) [Ratio] 16.0 % 11.6-14.6 [facility] Erythrocyte distribution wid th standard deviationOrdered By: Freddy Lane on 06-21-2023 Erythrocyte distribution width (RBC) [Entitic vol] 47.7 fL 35.1-43.9 [facility] Hematocrit Auto (Bld) [Volum e fraction]Ordered By: Freddy Lane on 06-21-2023 Hematocrit (Bld) [Volume fraction] 28.6 % 37-47 [facility] Immature granulocytes/100 WB C Auto (Bld)Ordered By: Freddy Lane on 06-21-2023 Immature granulocytes/100 WBC (Bld) 0.300 % 0.0-0.9 [facility] Comment on above: IG% - Immature Granu locytes (promyelocytes, myelocytes and metamyelocytes) > 1% indicates that a LEFT SHIFT is Present. Ketones Test strip Ql (U)Ord ered By: Freddy Lane on 06-21-2023 Ketones Ql (U) Negative Negative [facility] Laboratory - Chemistry and C hemistry - challengeOrdered By: Freddy Lane on 06-21-2023 Albumin/Globulin [Mass ratio] 0.8 {ratio} 0.9-2.4 [facility] ALP [Catalytic activity/Vol] 117 U/L 45-117 [facility] ALT [Catalytic activity/Vol] 74 U/L 13-56 [facility] CO2 [Moles/Vol] 26.0 mmol/L 21.0-32.0 [facility] Globulin (S) [Mass/Vol] 4.1 g/dL 2.2-4.2 [facility] Lipase [Catalytic activity/Vol] 79 U/L 13-75 [facility] Comment on above: Please note:LIPASE r evised reference range effective 22. New Lipase methodology. Expected to produce lower values than the previous assay method. NEW Reference Range: 13 - 75 U/L Urea nitrogen/Creatinine [Mass ratio] 13.4 mg/mg 10-20 [facility] Laboratory - Hematology and Cell countsOrdered By: Freddy Lane on 06-21-2023 MCH (RBC) [Entitic mass] 25.4 pg 27.0-32.0 [facility] MCHC (RBC) [Mass/Vol] 31.1 g/dL 32-36 [facility] Nucleated RBC/100 WBC (Bld) [Ratio] 0 % 0-5 [facility] Platelet mean volume (Bld) [Entitic vol] 11.5 fL 6.2-12.0 [facility] Platelets (Bld) [#/Vol] 175 10*3/uL 150-450 [facility] Mucus LM Ql (Urine sed)Order ed By: Freddy Lane on 06-21-2023 Mucus Ql (Urine sed) 0 SEEN /hpf [facility] Nitrite Test strip Ql (U)Ord ered By: Freddy Lane on 06-21-2023 Nitrite Ql (U) Negative Negative [facility] No Panel InformationOrdered By: Freddy Lane on 06-21-2023 Estimated Creatinine Clearance Calc 106.37 ml/min [facility] Estimated GFR (MDRD) Amer 133 mL/min >60 [facility] Comment on above: GFR Calc Estimated GFR (MDRD) Non-Af Amer 110 mL/min >60 [facility] Comment on above: Non- GFR Calc Urine RBC 0 SEEN /hpf 0-5 [facility] Protein Test strip Ql (U)Ord ered By: Freddy Lane on 06-21-2023 Protein Ql (U) 15 mg/dl Negative [facility] RBC Auto (Bld) [#/Vol]Ordere d By: Freddy Lane on 06-21-2023 RBC (Bld) [#/Vol] 3.51 10*6/uL 4.2-5.4 [facility] Serum or plasma calcium hailee urement (mass/volume)Ordered By: Freddy Lane on 06-21-2023 Calcium [Mass/Vol] 9.0 mg/dL 8.5-10.1 [facility] Serum or plasma creatinine m easurement (mass/volume)Ordered By: Freddy Lane on 06-21-2023 Creatinine [Mass/Vol] 0.60 mg/dL 0.55-1.02 [facility] Comment on above: The validity of the calculated GFR & GFRAA in patients over 70 years has not been determined. Clinical correlation is essential. Serum or plasma urea nitroge n measurement (mass/volume)Ordered By: Freddy Lane on 06-21-2023 Urea nitrogen [Mass/Vol] 8 mg/dL 7-18 [facility] Squamous epithelial cells de tection in urine sediment by light microscopyOrdered By: Freddy Lane on 06-21-2023 Epithelial cells.squamous LM Ql (Urine sed) 0-5 SEEN /hpf 5-10 [facility] Thin prep Papanicolaou smear with manual screeningOrdered By: Freddy Lane on 06-21-2023 Thin prep Papanicolaou smear with manual screening 3.4 g/dL 3.2-5.0 [facility] Thin prep Papanicolaou smear with manual screening 64 U/L 15-37 [facility] Thin prep Papanicolaou smear with manual screening 4 5-15 [facility] Urine blood detectionOrdered By: Freddy Lane on 06-21-2023 RBC Ql (U) Negative Negative [facility] Urine clarityOrdered By: Fredis Lane on 06-21-2023 Clarity (U) Clear Clear [facility] Urine color determinationOrd ered By: Freddy Lane on 06-21-2023 Color (U) Yellow Yellow [facility] Urine glucose detectionOrder ed By: Freddy Lane on 06-21-2023 Glucose Ql (U) Normal mg/dl Normal [facility] Urine leukocyte esterase det ection by dipstickOrdered By: Freddy Lane on 06-21-2023 Leukocyte esterase Test strip Ql (U) Negative Negative [facility] Urine pHOrdered By: Freddy Silva ght on 06-21-2023 pH (U) 7.0 [pH] 5.0 - 8.0 [facility] Urine sediment bacteria coun t by microscopy (number/high power field)Ordered By: Freddy Lane on 06-21-2023 Bacteria LM.HPF (Urine sed) [#/Area] 0 /[HPF] None Seen [facility] Urine specific gravity measu rementOrdered By: Freddy Lane on 06-21-2023 Specific gravity (U) [Rel density] 1.005 1.002-1.03 0 [facility] Urine urobilinogen measureme ntOrdered By: Freddy Lane on 06-21-2023 Urobilinogen Ql (U) Normal mg/dl Normal [facility] Basophil percentageOrdered B y: Alicia Manzano on 06-13-2023 Bilirubin [Mass/Vol] 0.50 mg/dL 0.20-1.00 [facility] Comment on above: For patients on eltr ombopag therapy, use of Dimension [place] TBIL is not recommended. Chloride [Moles/Vol] 106 mmol/L 98-107 [facility] Cholesterol [Mass/Vol] 149 mg/dL <200 [facility] Comment on above: <200 mg/dL Desirable 200-240 mg/dL Borderline >240 mg/dL High Risk Glucose [Mass/Vol] 135 mg/dL 74-106 [facility] Comment on above: Fasting Glucose resu lt greater than or equal to 126 mg/dL suggests DIABETES MELLITUS per A.D.A. criteria. Potassium [Moles/Vol] 4.4 mmol/L 3.5-5.1 [facility] Protein [Mass/Vol] 7.5 g/dL 6.4-8.2 [facility] Sodium [Moles/Vol] 134 mmol/L 136-145 [facility] Triglyceride [Mass/Vol] 91 mg/dL <199 [facility] Comment on above: The drugs N-Acetylcy steine and Metamizole may falsely depress this assay.Serum Triglycerides Reference Interval Normal <150 mg/dL Borderline high 150 - 199 mg/dL High 200 - 499 mg/dL Very High > or = 500 mg/dL Gram stain for investigation of transfusion reactionOrdered By: Wilder Anguiano on 06-13-2023 Microscopic observation Gram stain Nom (Unsp spec) [facility] Microscopic observation Gram stain Nom (Unsp spec) [facility] Laboratory - Chemistry and C hemistry - challengeOrdered By: Alicia Manzano on 06-13-2023 Albumin/Globulin [Mass ratio] 0.8 {ratio} 0.9-2.4 [facility] ALP [Catalytic activity/Vol] 126 U/L 45-117 [facility] ALT [Catalytic activity/Vol] 91 U/L 13-56 [facility] Cholesterol in HDL [Mass/Vol] 45 mg/dL >40 [facility] Comment on above: The drugs N-Acetylcy steine and Metamizole may falsely depress this assay. Reference Range HDL <40 mg/dL Low HDL Cholesterol HDL >or= 60 mg/dL High HDL Cholesterol Cholesterol in LDL [Mass/Vol] 86 mg/dL 0-130 [facility] CO2 [Moles/Vol] 24.0 mmol/L 21.0-32.0 [facility] Globulin (S) [Mass/Vol] 4.1 g/dL 2.2-4.2 [facility] Urea nitrogen/Creatinine [Mass ratio] 19.6 mg/mg 10-20 [facility] No Panel InformationOrdered By: Wilder Anguiano on 06-13-2023 Nasopharyngeal Culture Pseudomonas aeruginosa [facility] Nasopharyngeal Culture Pseudomonas aeruginosa [facility] No Panel InformationOrdered By: Alicia Manzano on 06-13-2023 Estimated GFR (MDRD) Amer 143 mL/min >60 [facility] Comment on above: GFR Calc Estimated GFR (MDRD) Non-Af Amer 118 mL/min >60 [facility] Comment on above: Non- GFR Calc VLDL Cholesterol 18 mg/dL 5-40 [facility] Serum or plasma calcium hailee urement (mass/volume)Ordered By: Alicia Manzano on 06-13-2023 Calcium [Mass/Vol] 9.1 mg/dL 8.5-10.1 [facility] Serum or plasma creatinine m easurement (mass/volume)Ordered By: Alicia Manzano on 06-13-2023 Creatinine [Mass/Vol] 0.56 mg/dL 0.55-1.02 [facility] Comment on above: The validity of the calculated GFR & GFRAA in patients over 70 years has not been determined. Clinical correlation is essential. Serum or plasma urea nitroge n measurement (mass/volume)Ordered By: Alicia Manzano on 06-13-2023 Urea nitrogen [Mass/Vol] 11 mg/dL 7-18 [facility] Thin prep Papanicolaou smear with manual screeningOrdered By: Alicia Manzano on 06-13-2023 Thin prep Papanicolaou smear with manual screening 3.4 g/dL 3.2-5.0 [facility] Thin prep Papanicolaou smear with manual screening 73 U/L 15-37 [facility] Thin prep Papanicolaou smear with manual screening 4 5-15 [facility] Absolute lymphocyte countOrd ered By: Lakshmi Resendiz on 04-29-2023 Lymphocytes Auto (Unsp spec) [#/Vol] 1.20 10*3/uL 0.83-4.51 [facility] Basophil percentageOrdered B y: Lakshmi Resendiz on 04-29-2023 Basophils/100 WBC (Bld) 0.2 % 0-1 [facility] Chloride [Moles/Vol] 102 mmol/L 98-107 [facility] Eosinophils/100 WBC (Bld) 0.2 % 0-5 [facility] Glucose [Mass/Vol] 189 mg/dL 74-106 [facility] Comment on above: Fasting Glucose resu lt greater than or equal to 126 mg/dL suggests DIABETES MELLITUS per A.D.A. criteria. Neutrophils (Bld) [#/Vol] 2.8 10*3/uL 2.0-7.7 [facility] Neutrophils/100 WBC (Bld) 60.3 % 47-70 [facility] Potassium [Moles/Vol] 3.8 mmol/L 3.5-5.1 [facility] Sodium [Moles/Vol] 133 mmol/L 136-145 [facility] WBC (Bld) [#/Vol] 4.6 10*3/uL 4.4-11.0 [facility] Blood erythrocytes count (nu mber/volume)Ordered By: Lakshmi Resendiz on 04-29-2023 RBC (Bld) [#/Vol] 3.43 10*6/uL 4.2-5.4 [facility] Blood hemoglobin measurement (mass/volume)Ordered By: Lakshmi Resendiz on 04-29-2023 Hemoglobin (Bld) [Mass/Vol] 9.5 g/dL 12.0-15.0 [facility] Blood lymphocytes/100 leukoc ytesOrdered By: Lakshmi Resendiz on 04-29-2023 Lymphocytes/100 WBC (Bld) 26.2 % 19-41 [facility] Blood monocytes/100 leukocyt esOrdered By: Lakshmi Resendiz on 04-29-2023 Monocytes/100 WBC (Bld) 12.7 % 0-10 [facility] Blood platelet mean volumeOr dered By: Lakshmi Resendiz on 04-29-2023 Platelet mean volume (Bld) [Entitic vol] 12.4 fL 6.2-12.0 [facility] Determination of erythrocyte mean corpuscular volume (MCV)Ordered By: Lakshmi Resendiz on 04-29-2023 MCV (RBC) [Entitic vol] 87.2 fL 81-99 [facility] Hematocrit Auto (Bld) [Volum e fraction]Ordered By: Lakshmi Resendiz on 04-29-2023 Hematocrit (Bld) [Volume fraction] 29.9 % 37-47 [facility] Laboratory - Chemistry and C hemistry - challengeOrdered By: Lakshmi Resendiz on 04-29-2023 CO2 [Moles/Vol] 25.0 mmol/L 21.0-32.0 [facility] Magnesium [Mass/Vol] 1.7 mg/dL 1.6-2.6 [facility] Urea nitrogen/Creatinine [Mass ratio] 15.6 mg/mg 10-20 [facility] Laboratory - Hematology and Cell countsOrdered By: Lakshmi Resendiz on 04-29-2023 Erythrocyte distribution width (RBC) [Entitic vol] 46.1 fL 35.1-43.9 [facility] Erythrocyte distribution width (RBC) [Ratio] 14.4 % 11.6-14.6 [facility] Immature granulocytes/100 WBC (Bld) 0.400 % 0.0-0.9 [facility] Comment on above: IG% - Immature Granu locytes (promyelocytes, myelocytes and metamyelocytes) > 1% indicates that a LEFT SHIFT is Present. MCH (RBC) [Entitic mass] 27.7 pg 27.0-32.0 [facility] Nucleated RBC/100 WBC (Bld) [Ratio] 0 % 0-5 [facility] MCHC Auto (RBC) [Mass/Vol]Or dered By: Lakshmi Resendiz on 04-29-2023 MCHC (RBC) [Mass/Vol] 31.8 g/dL 32-36 [facility] No Panel InformationOrdered By: Lakshmi Resendiz on 04-29-2023 Troponin I High Sensitivity 8 pg/mL 3.0-54.0 [facility] Comment on above: Please Note: New Vani t Units and Gender Specific Reference Ranges. For more information see Policy Stat Procedure [place] High Sensitivity Troponin (TNIH) and attachments. Estimated Creatinine Clearance Calc 88.53 ml/min [facility] Estimated GFR (MDRD) Amer 138 mL/min >60 [facility] Comment on above: GFR Calc Estimated GFR (MDRD) Non-Af Amer 114 mL/min >60 [facility] Comment on above: Non- GFR Calc Thyroid Stimulating Hormone (TSH) 0.54 uIU/mL 0.358-3.74 [facility] Platelets bldOrdered By: Giovana Resendiz on 04-29-2023 Platelets (Bld) [#/Vol] 139 10*3/uL 150-450 [facility] Serum or plasma calcium hailee urement (mass/volume)Ordered By: Lakshmi Resendiz on 04-29-2023 Calcium [Mass/Vol] 9.0 mg/dL 8.5-10.1 [facility] Serum or plasma creatinine m easurement (mass/volume)Ordered By: Lakshmi Resendiz on 04-29-2023 Creatinine [Mass/Vol] 0.58 mg/dL 0.55-1.02 [facility] Comment on above: The validity of the calculated GFR & GFRAA in patients over 70 years has not been determined. Clinical correlation is essential. Serum or plasma urea nitroge n measurement (mass/volume)Ordered By: Lakshmi Resendiz on 04-29-2023 Urea nitrogen [Mass/Vol] 9 mg/dL 7-18 [facility] Thin prep Papanicolaou smear with manual screeningOrdered By: Lakshmi Resendiz on 04-29-2023 Thin prep Papanicolaou smear with manual screening 6 5-15 [facility] COVID & INFLUENZA A/B & RSV NAAT, ROUTINEon 04-17-2023 FLUAV RNA CAROLINA+probe Ql (Unsp spec) Not detected Not Detected [facility] FLUBV RNA CAROLINA+probe Ql (Unsp spec) Not detected Not Detected [facility] RSV A RNA CAROLINA+probe Ql (Unsp spec) Not detected Not Detected [facility] SARS-CoV-2 (COVID-19) RNA CAROLINA+probe Ql (Resp) Not detected See comment [facility] EMERGENCY REPORTon 3 EMERGENCY REPORT [facility] EMERGENCY ROOM REPORT NAME ACCOUNT SEX AGE ADMIT DISCHARGE PT MED. RECORD# NUMBER DATE DATE TYPE CASSIA HOLLAND [id number] F 57 03/16/23 03/16/23 [id number] ROOM: ER DATE OF : 1965 DICTATING [...] I discussed the patient's care with the Servomechanism Assembler special population paraprofessional for her Servomechanism Assembler at [facility]. The special population paraprofessional Servomechanism Assembler, Dr. Zuluaga, recommended that I discontinue the patient's hydrochlorothiazide and amlodipine and put her on Cardizem CD 120 mg daily. I gave her the first dose of this today and discharged her with a prescription for this Cardizem for home, and she was comfortable with the plan, stable at the time of disposition and diagnosis. She is to followup with her Servomechanism Assembler next week, return to the ED if symptoms return or for any new symptoms of concern. Dictated By: Marylu Chaudhary DO 03/17/23 01:20 JOB #: [id number] Transcribed By: am 03/17/23 07:30 Electronically signed by: Dr. Marylu Chaudhary, 04/04/23 07:13 Page 2 of 2 CASSIA HOLLAND Emergency Room Report [facility] Absolute lymphocyte countOrd ered By: Myriam Burt on 03-29-2023 Lymphocytes Auto (Unsp spec) [#/Vol] 1.36 10*3/uL 0.83-4.51 [facility] Basophil percentageOrdered B y: Myriam Burt on 03-29-2023 Basophils/100 WBC (Bld) 0.2 % 0-1 [facility] Chloride [Moles/Vol] 107 mmol/L 98-107 [facility] Eosinophils/100 WBC (Bld) 0.2 % 0-5 [facility] Glucose [Mass/Vol] 162 mg/dL 74-106 [facility] Comment on above: Fasting Glucose resu lt greater than or equal to 126 mg/dL suggests DIABETES MELLITUS per A.D.A. criteria. Neutrophils (Bld) [#/Vol] 2.2 10*3/uL 2.0-7.7 [facility] Neutrophils/100 WBC (Bld) 55.4 % 47-70 [facility] Potassium [Moles/Vol] 4.1 mmol/L 3.5-5.1 [facility] Sodium [Moles/Vol] 136 mmol/L 136-145 [facility] WBC (Bld) [#/Vol] 4.0 10*3/uL 4.4-11.0 [facility] Blood erythrocytes count (nu mber/volume)Ordered By: Myriam Burt on 03-29-2023 RBC (Bld) [#/Vol] 3.21 10*6/uL 4.2-5.4 [facility] Blood hemoglobin measurement (mass/volume)Ordered By: Myriam Burt on 03-29-2023 Hemoglobin (Bld) [Mass/Vol] 9.9 g/dL 12.0-15.0 [facility] Blood lymphocytes/100 leukoc ytesOrdered By: Myriam Burt on 03-29-2023 Lymphocytes/100 WBC (Bld) 33.8 % 19-41 [facility] Blood monocytes/100 leukocyt esOrdered By: Myiram Burt on 03-29-2023 Monocytes/100 WBC (Bld) 10.2 % 0-10 [facility] Blood platelet mean volumeOr dered By: Myriam Burt on 03-29-2023 Platelet mean volume (Bld) [Entitic vol] 11.2 fL 6.2-12.0 [facility] Determination of erythrocyte mean corpuscular volume (MCV)Ordered By: Myriam Burt on 03-29-2023 MCV (RBC) [Entitic vol] 94.1 fL 81-99 [facility] Hematocrit Auto (Bld) [Volum e fraction]Ordered By: Myriam Burt on 03-29-2023 Hematocrit (Bld) [Volume fraction] 30.2 % 37-47 [facility] Laboratory - Chemistry and C hemistry - challengeOrdered By: Myriam Burt on 03-29-2023 CO2 [Moles/Vol] 22.0 mmol/L 21.0-32.0 [facility] Urea nitrogen/Creatinine [Mass ratio] 16.3 mg/mg 10-20 [facility] Laboratory - Hematology and Cell countsOrdered By: Myriam Burt on 03-29-2023 Erythrocyte distribution width (RBC) [Entitic vol] 50.1 fL 35.1-43.9 [facility] Erythrocyte distribution width (RBC) [Ratio] 14.6 % 11.6-14.6 [facility] Immature granulocytes/100 WBC (Bld) 0.200 % 0.0-0.9 [facility] Comment on above: IG% - Immature Granu locytes (promyelocytes, myelocytes and metamyelocytes) > 1% indicates that a LEFT SHIFT is Present. MCH (RBC) [Entitic mass] 30.8 pg 27.0-32.0 [facility] Nucleated RBC/100 WBC (Bld) [Ratio] 0 % 0-5 [facility] MCHC Auto (RBC) [Mass/Vol]Or dered By: Myriam Burt on 03-29-2023 MCHC (RBC) [Mass/Vol] 32.8 g/dL 32-36 [facility] No Panel InformationOrdered By: Myriam Burt on 03-29-2023 Estimated Creatinine Clearance Calc 52.39 ml/min [facility] Estimated GFR (MDRD) Amer 75 mL/min >60 [facility] Comment on above: GFR Calc Estimated GFR (MDRD) Non-Af Amer 62 mL/min >60 [facility] Comment on above: Non- GFR Calc Thyroid Stimulating Hormone (TSH) 0.84 uIU/mL 0.358-3.74 [facility] Troponin I High Sensitivity 6 pg/mL 3.0-54.0 [facility] Comment on above: Please Note: New Vani t Units and Gender Specific Reference Ranges. For more information see Policy Stat Procedure [place] High Sensitivity Troponin (TNIH) and attachments. Platelets bldOrdered By: Leandra Burt on 03-29-2023 Platelets (Bld) [#/Vol] 135 10*3/uL 150-450 [facility] Serum or plasma calcium hailee urement (mass/volume)Ordered By: Myriam Burt on 03-29-2023 Calcium [Mass/Vol] 9.0 mg/dL 8.5-10.1 [facility] Serum or plasma creatinine m easurement (mass/volume)Ordered By: Myriam Burt on 03-29-2023 Creatinine [Mass/Vol] 0.98 mg/dL 0.55-1.02 [facility] Comment on above: The validity of the calculated GFR & GFRAA in patients over 70 years has not been determined. Clinical correlation is essential. Serum or plasma urea nitroge n measurement (mass/volume)Ordered By: Myriam Burt on 03-29-2023 Urea nitrogen [Mass/Vol] 16 mg/dL 7-18 [facility] Thin prep Papanicolaou smear with manual screeningOrdered By: Myriam Burt on 03-29-2023 Thin prep Papanicolaou smear with manual screening 7 5-15 [facility] CBC + DIFFon 03-16-2023 Baso # 0.00 x10EE3/UL Normal 0.00 - 0.10 [facility] Comment on above: Performed By: #### 2 [id number] #### [facility],[address] [place] [address] Basophils/100 WBC (Bld) 0.5 % Normal 0.0 - 2.0 [facility] Comment on above: Performed By: #### 2 [id number] #### [facility],[address] [place] [address] CBC + DIFF Normal [facility] Comment on above: Result Comment: CBC- COMPLETE BLOOD COUNT Performed By: #### 2 88746 #### [facility],[address] [place] [address] EO # 0.00 x10EE3/UL Normal 0.00 - 0.50 [facility] Comment on above: Performed By: #### 2 66092 #### [facility],[address] [place] [address] Eosinophils/100 WBC (Bld) 0.9 % Normal 0.0 - 7.0 [facility] Comment on above: Performed By: #### 2 82556 #### [facility],[address] [place] [address] Erythrocyte distribution width (RBC) [Ratio] 14.7 % Normal 12.0 - 15.6 [facility] Comment on above: Performed By: #### 2 65893 #### [facility],[address] [place] [address] Hematocrit (Bld) [Volume fraction] 34.0 % Normal 34.0 - 46.0 [facility] Comment on above: Performed By: #### 2 78164 #### [facility],[address] [place] [address] Hemoglobin (Bld) [Mass/Vol] 11.3 g/dL Low 12.0 - 16.0 [facility] Comment on above: Performed By: #### 2 46460 #### [facility],[address] [place] [address] Lymph # 1.30 x10EE3/UL Normal 0.80 - 2.80 [facility] Comment on above: Performed By: #### 2 44929 #### [facility],[address] [place] [address]27 Lymphocytes/100 WBC (Bld) 26.4 % Normal 20.0 - 45.0 [facility] Comment on above: Performed By: #### 2 39320 #### [facility],[address] [place], [place] [address] MANUAL DIFF N/A Normal [facility] Comment on above: Performed By: #### 2 49953 #### [facility],[address] [place] [address] MCH (RBC) [Entitic mass] 30 pg Normal 27 - 33 [facility] Comment on above: Performed By: #### 2 50111 #### [facility],[address] [place] [address] MCHC 33 X10 3 Normal 32 - 36 [facility] Comment on above: Performed By: #### 2 73666 #### [facility],[address] [place] [address] MCV (RBC) [Entitic vol] 91 fL Normal 80 - 99 [facility] Comment on above: Performed By: #### 2 41376 #### [facility],[address] [place] [address] Forest # 0.60 x10EE3/UL Normal 0.20 - 1.00 [facility] Comment on above: Performed By: #### 2 00654 #### [facility],[address] [place] [address] MONOS % 13.2 % High 0.0 - 10.0 [facility] Comment on above: Performed By: #### 2 32704 #### [facility],[address] [place] [address] Morphology Tho (Bld) [Interp] N/A Normal [facility] Comment on above: Result Comment: {CD] Performed By: #### 2 33820 #### [facility],[address] [place] [address] Neut # 2.80 x10EE3/UL Normal 1.50 - 7.10 [facility] Comment on above: Performed By: #### 2 18166 #### [facility],[address] [place] [address] Neutrophils/100 WBC (Bld) 59.0 % Normal 46.0 - 76.0 [facility] Comment on above: Performed By: #### 2 88085 #### [facility],[address] [place] [address] PLATELET 192 x10EE3/UL Normal 150 - 450 [facility] Comment on above: Performed By: #### 2 48593 #### [facility],[address] [place] [address] Platelet mean volume (Bld) [Entitic vol] 9.8 fL Normal 6.6 - 10.5 [facility] Comment on above: Result Comment: AUTO MATED DIFFERENTIAL Performed By: #### 2 45325 #### [address] [address] RBC 3.72 x 10EE6/UL Low 4.10 - 5.30 [facility] Comment on above: Performed By: #### 2 61672 #### [address] [address] WBC 4.8 x 10EE3/UL Normal 4.5 - 10.8 [facility] Comment on above: Performed By: #### 2 67108 #### [address] [address] CHEST 1 VIEWon 03-16-2023 CHEST [address] [address] Patient: CASSIA HOLLAND Phone#: : 1965 Age: 57 Gender: F Pt. Type: ER Account: [id number] Location: [facility] Ordering: DR. MARYLU CHAUDHARY Exam Date: 03/16/2023/17:40 Family Phys: Charge Code: [id number] Physician: [place] Order #: [id number] Dose#: PROCEDURE: X-RAY CHEST 1 VIEW COMPARISON: [...] Rene MD on 03/16/2023 at 17:54 Normal [facility] CMP with eGFRon 03-16-2023 AGE 57 years Normal [facility] Comment on above: Performed By: #### 2 90255 #### [facility],[address] [place] [address] Albumin [Mass/Vol] 3.8 g/dL Normal 3.4 - 5.0 [facility] Comment on above: Performed By: #### 2 62197 #### [facility],[address] [place] [address] Albumin/Globulin [Mass ratio] 0.8 {ratio} Low 0.9 - 1.6 [facility] Comment on above: Performed By: #### 2 55204 #### [facility],[address] [place] [address] ALK PHOS 129 U/L High 46 - 116 [facility] Comment on above: Performed By: #### 2 00286 #### [facility],[address] [place] [address] ALT [Catalytic activity/Vol] 113 U/L High 14 - 59 [facility] Comment on above: Performed By: #### 2 81239 #### [facility],[address] [place] [address] Anion gap [Moles/Vol] 19 mmol/L Normal 10 - 20 [facility] Comment on above: Performed By: #### 2 84763 #### [facility],[address] [place] [address]43 AST [Catalytic activity/Vol] 92 U/L High 13 - 39 [facility] Comment on above: Performed By: #### 2 71835 #### [facility],[address] [place] [address] B/C RATIO 31 ratio High 0 - 30 [facility] Comment on above: Performed By: #### 2 06362 #### [facility],[address] [place] [address] Bilirubin [Mass/Vol] 0.5 mg/dL Normal 0.2 - 1.0 [facility] Comment on above: Performed By: #### 2 72452 #### [facility],[address] [place] [address] Calcium [Mass/Vol] 9.1 mg/dL Normal 8.5 - 10.1 [facility] Comment on above: Performed By: #### 2 76056 #### [facility],[address] [place] [address] Chloride [Moles/Vol] 89 mmol/L Low 98 - 107 [facility] Comment on above: Performed By: #### 2 91662 #### [facility],[address] [place] [address] CMP with eGFR Normal [facility] Comment on above: Result Comment: COMP REHENSIVE METABOLIC PANEL Performed By: #### 2 83258 #### [facility],[address] [place] [address] CO2 [Moles/Vol] 21.3 mmol/L Normal 21.0 - 32.0 [facility] Comment on above: Performed By: #### 2 77186 #### [facility],[address] [place] [address] Creatinine [Mass/Vol] 0.68 mg/dL Normal 0.55 - 1.02 [facility] Comment on above: Performed By: #### 2 99822 #### [facility],[address] [place] [address] GFR/1.73 sq M.predicted among non-blacks MDRD (S/P/Bld) [Vol rate/Area] mL/min/{1.73_m2} Normal 60 - 999 [facility] Comment on above: Performed By: #### 2 19231 #### [facility],[address] [place] [address] Result Comment: ACCO RDING TO THE NATIONAL KIDNEY DISEASE EDUCATION PROGRAM(NKDE), A NORMAL eGFR IS A VALUE GREATER THAN OR EQUAL TO 60 ML/MIN/1.73 SQ METERS. CHRONIC KIDNEY DISEASE: <60mL/MIN/1.73 SQ METERS KIDNEY FAILURE: <15mL/MIN/1.73 SQ METERS THIS TEST SHOULD ONLY BE USED FOR PATIENTS 18 YEARS OF AGE AND OLDER. Globulin (S) [Mass/Vol] 4.6 g/dL High 1.5 - 3.8 [facility] Comment on above: Performed By: #### 2 90141 #### [address] [address] Glucose [Mass/Vol] 123 mg/dL High 74 - 106 [facility] Comment on above: Performed By: #### 2 76038 #### [facility],[address] [place] [address] Potassium [Moles/Vol] 3.9 mmol/L Normal 3.5 - 5.1 [facility] Comment on above: Performed By: #### 2 66386 #### [facility],[address] [place] [address] Protein [Mass/Vol] 8.4 g/dL High 6.4 - 8.2 [facility] Comment on above: Performed By: #### 2 11569 #### [facility],[address] [place] [address] Sodium [Moles/Vol] 125 mmol/L Low 136 - 145 [facility] Comment on above: Performed By: #### 2 43529 #### [facility],[address] [place] [address] Urea nitrogen [Mass/Vol] 21 mg/dL High 7 - 18 [facility] Comment on above: Performed By: #### 2 01642 #### [facility],[address] [place] [address] TROPONIN I, HIGH SENSITIVITY on 03-16-2023 HS TROPONIN 5.0 pg/mL Normal 0.0 - 51.4 [facility] Comment on above: Performed By: #### 2 66254 #### [facility],[address] [place] [address] TSHon 03-16-2023 TSH Qn 0.84 m[IU]/L Normal 0.35 - 3.74 [facility] Comment on above: Performed By: #### 2 03521 #### [facility],[address] [place] [address] Gram stain for investigation of transfusion reactionOrdered By: Wilder Anguiano on 03-12-2023 Microscopic observation Gram stain Nom (Unsp spec) [facility] Influenza virus A and B RNA and SARS-CoV-2 (COVID-19) N gene panel CAROLINA+probe (Resp)on 03-12-2023 FLUAV RNA CAROLINA+probe Ql (Unsp spec) Not detected Not Detected [facility] FLUBV RNA CAROLINA+probe Ql (Unsp spec) Not detected Not Detected [facility] SARS-CoV-2 (COVID-19) RNA CAROLINA+probe Ql (Resp) Not detected See comment [facility] No Panel InformationOrdered By: Wilder Anguiano on 03-12-2023 Nasopharyngeal Culture Pseudomonas aeruginosa [facility] HbA1c (Bld)on 02-28-2023 Average glucose Estimated from glycated hemoglobin (Bld) [Mass/Vol] 134 mg/dL [facility] HbA1c (Bld) [Mass fraction] 6.3 % High 4.3 - 5.6 % [facility] MAGNESIUM BLDon 02-28-2023 Magnesium [Mass/Vol] 1.7 mg/dL 1.7 - 2 .3 mg/dL [facility] T4 FREE/FREE THYROXon 2022 Free T4 [Mass/Vol] 1.5 ng/dL 0.9 - 1.7 ng/dL [facility] TSH BLDon 02-28-2023 TSH Qn 0.572 m[IU]/L 0.270 - 4.200 mIU/L [facility] Absolute lymphocyte countOrd ered By: Cassia Grover on 02-27-2023 Lymphocytes Auto (Unsp spec) [#/Vol] 1.03 10*3/uL 0.83-4.51 [facility] Basophil percentageOrdered B y: Cassia Chengishaanmorteza on 02-27-2023 Basophils/100 WBC (Bld) 0.3 % 0-1 [facility] Bilirubin [Mass/Vol] 0.30 mg/dL 0.20-1.00 [facility] Comment on above: For patients on eltr ombopag therapy, use of Dimension [place] TBIL is not recommended. Chloride [Moles/Vol] 99 mmol/L 98-107 [facility] Eosinophils/100 WBC (Bld) 3.6 % 0-5 [facility] Glucose [Mass/Vol] 119 mg/dL 74-106 [facility] Comment on above: Fasting Glucose resu lt from 100 to 125 mg/dL suggests IMPAIRED HOMEOSTASIS per A.D.A. criteria. Neutrophils (Bld) [#/Vol] 2.0 10*3/uL 2.0-7.7 [facility] Neutrophils/100 WBC (Bld) 54.0 % 47-70 [facility] Potassium [Moles/Vol] 3.8 mmol/L 3.5-5.1 [facility] Protein [Mass/Vol] 7.5 g/dL 6.4-8.2 [facility] Sodium [Moles/Vol] 132 mmol/L 136-145 [facility] WBC (Bld) [#/Vol] 3.6 10*3/uL 4.4-11.0 [facility] Blood erythrocytes count (nu mber/volume)Ordered By: Cassia Reilly on 02-27-2023 RBC (Bld) [#/Vol] 3.39 10*6/uL 4.2-5.4 [facility] Blood hemoglobin measurement (mass/volume)Ordered By: Cassia Grover on 02-27-2023 Hemoglobin (Bld) [Mass/Vol] 10.3 g/dL 12.0-15.0 [facility] Blood lymphocytes/100 leukoc ytesOrdered By: Cassia Grover on 02-27-2023 Lymphocytes/100 WBC (Bld) 28.5 % 19-41 [facility] Blood monocytes/100 leukocyt esOrdered By: Cassia Grover on 02-27-2023 Monocytes/100 WBC (Bld) 13.3 % 0-10 [facility] Blood platelet mean volumeOr dered By: Cassia Grover on 02-27-2023 Platelet mean volume (Bld) [Entitic vol] 12.7 fL 6.2-12.0 [facility] Determination of erythrocyte mean corpuscular volume (MCV)Ordered By: Cassia Grover on 02-27-2023 MCV (RBC) [Entitic vol] 91.4 fL 81-99 [facility] Direct bilirubinOrdered By: Cassia Grover on 02-27-2023 Bilirubin.direct [Mass/Vol] 0.14 mg/dL 0.00-0.30 [facility] Hematocrit Auto (Bld) [Volum e fraction]Ordered By: Cassia Grover on 02-27-2023 Hematocrit (Bld) [Volume fraction] 31.0 % 37-47 [facility] Laboratory - Chemistry and C hemistry - challengeOrdered By: Cassia Grover on 02-27-2023 ALP [Catalytic activity/Vol] 108 U/L 45-117 [facility] ALT [Catalytic activity/Vol] 110 U/L 13-56 [facility] CO2 [Moles/Vol] 22.0 mmol/L 21.0-32.0 [facility] Globulin (S) [Mass/Vol] 4.1 g/dL 2.2-4.2 [facility] Lipase [Catalytic activity/Vol] 89 U/L 13-75 [facility] Comment on above: Please note:LIPASE r evised reference range effective 22. New Lipase methodology. Expected to produce lower values than the previous assay method. NEW Reference Range: 13 - 75 U/L Urea nitrogen/Creatinine [Mass ratio] 19.7 mg/mg 10-20 [facility] Laboratory - Hematology and Cell countsOrdered By: Cassia Grover on 02-27-2023 Erythrocyte distribution width (RBC) [Entitic vol] 45.7 fL 35.1-43.9 [facility] Erythrocyte distribution width (RBC) [Ratio] 13.5 % 11.6-14.6 [facility] Immature granulocytes/100 WBC (Bld) 0.300 % 0.0-0.9 [facility] Comment on above: IG% - Immature Granu locytes (promyelocytes, myelocytes and metamyelocytes) > 1% indicates that a LEFT SHIFT is Present. MCH (RBC) [Entitic mass] 30.4 pg 27.0-32.0 [facility] Nucleated RBC/100 WBC (Bld) [Ratio] 0 % 0-5 [facility] MCHC Auto (RBC) [Mass/Vol]Or dered By: Cassia Grover on 02-27-2023 MCHC (RBC) [Mass/Vol] 33.2 g/dL 32-36 [facility] No Panel InformationOrdered By: Cassia Grover on 02-27-2023 Troponin I High Sensitivity 5 pg/mL 3.0-54.0 [facility] Comment on above: Please Note: New Vani t Units and Gender Specific Reference Ranges. For more information see Policy Stat Procedure [place] High Sensitivity Troponin (TNIH) and attachments. Estimated Creatinine Clearance Calc 59.70 ml/min [facility] Estimated GFR (MDRD) Amer 87 mL/min >60 [facility] Comment on above: GFR Calc Estimated GFR (MDRD) Non-Af Amer 72 mL/min >60 [facility] Comment on above: Non- GFR Calc Platelets bldOrdered By: Whit Grover on 02-27-2023 Platelets (Bld) [#/Vol] 135 10*3/uL 150-450 [facility] Serum or plasma albumin hailee urement (mass/volume)Ordered By: Cassia Grover on 02-27-2023 Albumin [Mass/Vol] 3.4 g/dL 3.2-5.0 [facility] Serum or plasma calcium hailee urement (mass/volume)Ordered By: Cassia Grover on 02-27-2023 Calcium [Mass/Vol] 8.4 mg/dL 8.5-10.1 [facility] Serum or plasma creatinine m easurement (mass/volume)Ordered By: Cassia Grover on 02-27-2023 Creatinine [Mass/Vol] 0.86 mg/dL 0.55-1.02 [facility] Comment on above: The validity of the calculated GFR & GFRAA in patients over 70 years has not been determined. Clinical correlation is essential. Serum or plasma urea nitroge n measurement (mass/volume)Ordered By: Cassia Grover on 02-27-2023 Urea nitrogen [Mass/Vol] 17 mg/dL 7-18 [facility] Thin prep Papanicolaou smear with manual screeningOrdered By: Cassia Grover on 02-27-2023 Thin prep Papanicolaou smear with manual screening 112 U/L 15- [facility] Thin prep Papanicolaou smear with manual screening 11 5- [facility] Gram stain for investigation of transfusion reactionOrdered By: Wilder Anguiano on 02-12-2023 Microscopic observation Gram stain Nom (Unsp spec) [facility] No Panel InformationOrdered By: Wilder Anguiano on 02-12-2023 Nasopharyngeal Culture Pseudomonas aeruginosa [facility] Basophil percentageOrdered B y: Aliciamynor Manzano on 01-24-2023 Bilirubin [Mass/Vol] 0.60 mg/dL 0.20-1.00 [facility] Comment on above: For patients on eltr ombopag therapy, use of Dimension [place] TBIL is not recommended. Chloride [Moles/Vol] 103 mmol/L 98-107 [facility] Cholesterol [Mass/Vol] 167 mg/dL <200 [facility] Comment on above: <200 mg/dL Desirable 200-240 mg/dL Borderline >240 mg/dL High Risk Glucose [Mass/Vol] 219 mg/dL 74-106 [facility] Comment on above: Glucose result great er than or equal to 200 mg/dLsuggests DIABETES MELLITUS per A.D.A. criteria. Potassium [Moles/Vol] 4.1 mmol/L 3.5-5.1 [facility] Comment on above: Slight Hemolysis, Re sult may be falsely increased. Protein [Mass/Vol] 7.6 g/dL 6.4-8.2 [facility] Sodium [Moles/Vol] 134 mmol/L 136-145 [facility] Triglyceride [Mass/Vol] 126 mg/dL <199 [facility] Comment on above: The drugs N-Acetylcy steine and Metamizole may falsely depress this assay.Serum Triglycerides Reference Interval Normal <150 mg/dL Borderline high 150 - 199 mg/dL High 200 - 499 mg/dL Very High > or = 500 mg/dL WBC (Bld) [#/Vol] 3.9 10*3/uL 4.4-11.0 [facility] Blood erythrocytes count (nu mber/volume)Ordered By: Alicia Manzano on 01-24-2023 RBC (Bld) [#/Vol] 3.33 10*6/uL 4.2-5.4 [facility] Blood hemoglobin measurement (mass/volume)Ordered By: Alicia Manzano on 01-24-2023 Hemoglobin (Bld) [Mass/Vol] 10.8 g/dL 12.0-15.0 [facility] Blood platelet mean volumeOr dered By: Alicialatoya Manzano on 01-24-2023 Platelet mean volume (Bld) [Entitic vol] 11.4 fL 6.2-12.0 [facility] Determination of erythrocyte mean corpuscular volume (MCV)Ordered By: Alicialatoya Manzano on 01-24-2023 MCV (RBC) [Entitic vol] 95.2 fL 81-99 [facility] Hematocrit Auto (Bld) [Volum e fraction]Ordered By: Alicialatoya Manzano on 01-24-2023 Hematocrit (Bld) [Volume fraction] 31.7 % 37-47 [facility] INR in Blood by Coagulation assayOrdered By: Alicia Manzano on 01-24-2023 INR Coag (Bld) [Relative time] 1.0 {INR} [facility] Laboratory - Chemistry and C hemistry - challengeOrdered By: Alicialatoya Manzano on 01-24-2023 ALP [Catalytic activity/Vol] 112 U/L 45-117 [facility] ALT [Catalytic activity/Vol] 179 U/L 13-56 [facility] CO2 [Moles/Vol] 25.0 mmol/L 21.0-32.0 [facility] Globulin (S) [Mass/Vol] 4.2 g/dL 2.2-4.2 [facility] Urea nitrogen/Creatinine [Mass ratio] 16.8 mg/mg 10-20 [facility] Laboratory - CoagulationOrde red By: Alciia Manzano on 01-24-2023 aPTT Coag (Bld) [Time] 29.1 s 24.1-36.2 [facility] PT Coag (PPP) [Time] 13.6 s 11.7-14.9 [facility] Laboratory - Hematology and Cell countsOrdered By: Alicia Manzano on 01-24-2023 Erythrocyte distribution width (RBC) [Entitic vol] 49.5 fL 35.1-43.9 [facility] Erythrocyte distribution width (RBC) [Ratio] 14.3 % 11.6-14.6 [facility] MCH (RBC) [Entitic mass] 32.4 pg 27.0-32.0 [facility] MCHC Auto (RBC) [Mass/Vol]Or dered By: Alicia Manzano on 01-24-2023 MCHC (RBC) [Mass/Vol] 34.1 g/dL 32-36 [facility] No Panel InformationOrdered By: Alicia Manzano on 01-24-2023 Estimated GFR (MDRD) Amer 108 mL/min >60 [facility] Comment on above: GFR Calc Estimated GFR (MDRD) Non-Af Amer 89 mL/min >60 [facility] Comment on above: Non- GFR Calc Platelets bldOrdered By: Yanet Manzano on 01-24-2023 Platelets (Bld) [#/Vol] 146 10*3/uL 150-450 [facility] Serum or plasma albumin hailee urement (mass/volume)Ordered By: Alicia Manzano on 01-24-2023 Albumin [Mass/Vol] 3.4 g/dL 3.2-5.0 [facility] Serum or plasma albumin/glob ulin mass ratioOrdered By: Alicia Manzano on 01-24-2023 Albumin/Globulin [Mass ratio] 0.8 {ratio} 0.9-2.4 [facility] Serum or plasma calcium hailee urement (mass/volume)Ordered By: Alicia Manzano on 01-24-2023 Calcium [Mass/Vol] 8.8 mg/dL 8.5-10.1 [facility] Serum or plasma cholesterol in HDL measurement (mass/volume)Ordered By: Alicia Manzano on 01-24-2023 Cholesterol in HDL [Mass/Vol] 38 mg/dL >40 [facility] Comment on above: The drugs N-Acetylcy steine and Metamizole may falsely depress this assay. Reference Range HDL <40 mg/dL Low HDL Cholesterol HDL >or= 60 mg/dL High HDL Cholesterol Serum or plasma cholesterol in VLDL measurement (mass/volume)Ordered By: Alicia Manzano on 01-24-2023 Cholesterol in VLDL [Mass/Vol] 25 mg/dL 5-40 [facility] Serum or plasma creatinine m easurement (mass/volume)Ordered By: Alicia Manzano on 01-24-2023 Creatinine [Mass/Vol] 0.72 mg/dL 0.55-1.02 [facility] Comment on above: The validity of the calculated GFR & GFRAA in patients over 70 years has not been determined. Clinical correlation is essential. Serum or plasma low density lipoprotein (LDL) cholesterol measurement (mass/volume)Ordered By: Alicia Manzano on 01-24-2023 Cholesterol in LDL [Mass/Vol] 104 mg/dL 0-130 [facility] Serum or plasma urea nitroge n measurement (mass/volume)Ordered By: Alicia Manzano on 01-24-2023 Urea nitrogen [Mass/Vol] 12 mg/dL 7-18 [facility] Thin prep Papanicolaou smear with manual screeningOrdered By: Alicia Manzano on 01-24-2023 Thin prep Papanicolaou smear with manual screening 168 U/L 15-37 [facility] Comment on above: Slight Hemolysis, Re sult may be falsely increased. Thin prep Papanicolaou smear with manual screening 6 5-15 [facility] Absolute lymphocyte countOrd ered By: Meg Painting on 01-16-2023 Lymphocytes Auto (Unsp spec) [#/Vol] 1.42 10*3/uL 0.83-4.51 [facility] Basophil percentageOrdered B y: Meg Painting on 01-16-2023 Basophils/100 WBC (Bld) 0.4 % 0-1 [facility] Eosinophils/100 WBC (Bld) 3.8 % 0-5 [facility] Neutrophils (Bld) [#/Vol] 2.4 10*3/uL 2.0-7.7 [facility] Neutrophils/100 WBC (Bld) 53.7 % 47-70 [facility] WBC (Bld) [#/Vol] 4.5 10*3/uL 4.4-11.0 [facility] Blood erythrocytes count (nu mber/volume)Ordered By: Meg Painting on 01-16-2023 RBC (Bld) [#/Vol] 3.51 10*6/uL 4.2-5.4 [facility] Blood hemoglobin measurement (mass/volume)Ordered By: Meg Painting on 01-16-2023 Hemoglobin (Bld) [Mass/Vol] 11.0 g/dL 12.0-15.0 [facility] Blood lymphocytes/100 leukoc ytesOrdered By: Meg Painting on 01-16-2023 Lymphocytes/100 WBC (Bld) 31.8 % 19-41 [facility] Blood monocytes/100 leukocyt esOrdered By: Meg Painting on 01-16-2023 Monocytes/100 WBC (Bld) 9.9 % 0-10 [facility] Blood platelet mean volumeOr dered By: Meg Painting on 01-16-2023 Platelet mean volume (Bld) [Entitic vol] 11.5 fL 6.2-12.0 [facility] Determination of erythrocyte mean corpuscular volume (MCV)Ordered By: Meg Painting on 01-16-2023 MCV (RBC) [Entitic vol] 94.3 fL 81-99 [facility] Hematocrit Auto (Bld) [Volum e fraction]Ordered By: Meg Painting on 01-16-2023 Hematocrit (Bld) [Volume fraction] 33.1 % 37-47 [facility] Laboratory - Hematology and Cell countsOrdered By: Meg Painting on 01-16-2023 Erythrocyte distribution width (RBC) [Entitic vol] 47.0 fL 35.1-43.9 [facility] Erythrocyte distribution width (RBC) [Ratio] 13.7 % 11.6-14.6 [facility] Immature granulocytes/100 WBC (Bld) 0.400 % 0.0-0.9 [facility] Comment on above: IG% - Immature Granu locytes (promyelocytes, myelocytes and metamyelocytes) > 1% indicates that a LEFT SHIFT is Present. MCH (RBC) [Entitic mass] 31.3 pg 27.0-32.0 [facility] Nucleated RBC/100 WBC (Bld) [Ratio] 0 % 0-5 [facility] MCHC Auto (RBC) [Mass/Vol]Or dered By: Meg Painting on 01-16-2023 MCHC (RBC) [Mass/Vol] 33.2 g/dL 32-36 [facility] Platelets bldOrdered By: Alix Painting on 01-16-2023 Platelets (Bld) [#/Vol] 141 10*3/uL 150-450 [facility] Absolute lymphocyte countOrd ered By: Placido Albrecht on 12-31-2022 Lymphocytes Auto (Unsp spec) [#/Vol] 1.40 10*3/uL 0.83-4.51 [facility] Basophil percentageOrdered B y: Placido Albrecht on 12-31-2022 Basophil percentage 50-100 SEEN /hpf 0-5 [facility] Basophils/100 WBC (Bld) 0.2 % 0-1 [facility] Chloride [Moles/Vol] 100 mmol/L 98-107 [facility] Eosinophils/100 WBC (Bld) 1.1 % 0-5 [facility] Glucose [Mass/Vol] 191 mg/dL 74-106 [facility] Comment on above: Fasting Glucose resu lt greater than or equal to 126 mg/dL suggests DIABETES MELLITUS per A.D.A. criteria. Neutrophils (Bld) [#/Vol] 3.5 10*3/uL 2.0-7.7 [facility] Neutrophils/100 WBC (Bld) 62.9 % 47-70 [facility] Potassium [Moles/Vol] 4.0 mmol/L 3.5-5.1 [facility] Comment on above: Moderate Hemolysis, Result may be falsely increased. Sodium [Moles/Vol] 131 mmol/L 136-145 [facility] WBC (Bld) [#/Vol] 5.5 10*3/uL 4.4-11.0 [facility] Bilirubin Test strip Ql (U)O rdered By: Placido Albrecht on 12-31-2022 Bilirubin Ql (U) Negative Negative [facility] Blood erythrocytes count (nu mber/volume)Ordered By: Placido Albrecht on 12-31-2022 RBC (Bld) [#/Vol] 3.92 10*6/uL 4.2-5.4 [facility] Blood hemoglobin measurement (mass/volume)Ordered By: Placido Albrecht on 12-31-2022 Hemoglobin (Bld) [Mass/Vol] 12.1 g/dL 12.0-15.0 [facility] Blood lymphocytes/100 leukoc ytesOrdered By: Placido Albrecht on 12-31-2022 Lymphocytes/100 WBC (Bld) 25.4 % 19-41 [facility] Blood monocytes/100 leukocyt esOrdered By: Placido Albrecht on 12-31-2022 Monocytes/100 WBC (Bld) 10.0 % 0-10 [facility] Blood platelet mean volumeOr dered By: Placido Albrecht on 12-31-2022 Platelet mean volume (Bld) [Entitic vol] 12.2 fL 6.2-12.0 [facility] Culture, urineOrdered By: Marcelo Albrecht on 12-31-2022 Bacteria identified Cx Nom (U) Proteus mirabilis [facility] Bacteria identified Cx Nom (U) Proteus mirabilis [facility] Determination of erythrocyte mean corpuscular volume (MCV)Ordered By: Placido Albrecht on 12-31-2022 MCV (RBC) [Entitic vol] 94.4 fL 81-99 [facility] Hematocrit Auto (Bld) [Volum e fraction]Ordered By: Placido Albrecht on 12-31-2022 Hematocrit (Bld) [Volume fraction] 37.0 % 37-47 [facility] Ketones Test strip Ql (U)Ord ered By: Placido Albrecht on 12-31-2022 Ketones Ql (U) Negative Negative [facility] Laboratory - Chemistry and C hemistry - challengeOrdered By: Placido Albrecht on 12-31-2022 CO2 [Moles/Vol] 23.0 mmol/L 21.0-32.0 [facility] Urea nitrogen/Creatinine [Mass ratio] 16.4 mg/mg 10-20 [facility] Laboratory - Hematology and Cell countsOrdered By: Placido Albrecht on 12-31-2022 Erythrocyte distribution width (RBC) [Entitic vol] 48.8 fL 35.1-43.9 [facility] Erythrocyte distribution width (RBC) [Ratio] 14.2 % 11.6-14.6 [facility] Immature granulocytes/100 WBC (Bld) 0.400 % 0.0-0.9 [facility] Comment on above: IG% - Immature Granu locytes (promyelocytes, myelocytes and metamyelocytes) > 1% indicates that a LEFT SHIFT is Present. MCH (RBC) [Entitic mass] 30.9 pg 27.0-32.0 [facility] Nucleated RBC/100 WBC (Bld) [Ratio] 0 % 0-5 [facility] MCHC Auto (RBC) [Mass/Vol]Or dered By: Placido Albrecht on 12-31-2022 MCHC (RBC) [Mass/Vol] 32.7 g/dL 32-36 [facility] Mucus LM Ql (Urine sed)Order ed By: Placido Albrecht on 12-31-2022 Mucus Ql (Urine sed) 0 SEEN /hpf [facility] Nitrite Test strip Ql (U)Ord ered By: Placido Albrceht on 12-31-2022 Nitrite Ql (U) Positive Negative [facility] No Panel InformationOrdered By: Placido Albrecht on 12-31-2022 Troponin I High Sensitivity 35 pg/mL 3.0-54.0 [facility] Comment on above: Please Note: New Vani t Units and Gender Specific Reference Ranges. For more information see Policy Stat Procedure [place] High Sensitivity Troponin (TNIH) and attachments. Estimated Creatinine Clearance Calc 64.99 ml/min [facility] Estimated GFR (MDRD) Amer 96 mL/min >60 [facility] Comment on above: GFR Calc Estimated GFR (MDRD) Non-Af Amer 79 mL/min >60 [facility] Comment on above: Non- GFR Calc Platelets bldOrdered By: Bacilio Albrecht on 12-31-2022 Platelets (Bld) [#/Vol] 121 10*3/uL 150-450 [facility] Protein Test strip Ql (U)Ord ered By: Placido Albrecht on 12-31-2022 Protein Ql (U) 15 mg/dl Negative [facility] Serum or plasma calcium hailee urement (mass/volume)Ordered By: Placido Albrecht on 12-31-2022 Calcium [Mass/Vol] 8.7 mg/dL 8.5-10.1 [facility] Serum or plasma creatinine m easurement (mass/volume)Ordered By: Placido Albrecht on 12-31-2022 Creatinine [Mass/Vol] 0.79 mg/dL 0.55-1.02 [facility] Comment on above: The validity of the calculated GFR & GFRAA in patients over 70 years has not been determined. Clinical correlation is essential. Serum or plasma urea nitroge n measurement (mass/volume)Ordered By: Placido Albrecht on 12-31-2022 Urea nitrogen [Mass/Vol] 13 mg/dL 7-18 [facility] Squamous epithelial cells de tection in urine sediment by light microscopyOrdered By: Placido Albrecht on 12-31-2022 Epithelial cells.squamous LM Ql (Urine sed) 0-5 SEEN /hpf 5-10 [facility] Thin prep Papanicolaou smear with manual screeningOrdered By: Placido Albrecht on 12-31-2022 Thin prep Papanicolaou smear with manual screening 8 5-15 [facility] Urine blood detectionOrdered By: Placido Albrecht on 12-31-2022 RBC Ql (U) 10 /ul Negative [facility] RBC Ql (U) 0 SEEN /hpf 0-5 [facility] Urine clarityOrdered By: Bacilio Albrecht on 12-31-2022 Clarity (U) Sl. Cloudy Clear [facility] Urine color determinationOrd ered By: Placido Albrecht on 12-31-2022 Color (U) Yellow Yellow [facility] Urine glucose detectionOrder ed By: Placido Albrecht on 12-31-2022 Glucose Ql (U) 250 mg/dl Normal [facility] Urine leukocyte esterase det ection by dipstickOrdered By: Placido Albrecht on 12-31-2022 Leukocyte esterase Test strip Ql (U) 500 /ul Negative [facility] Urine pHOrdered By: Placido mike on 12-31-2022 pH (U) 8.0 [pH] 5.0 - 8.0 [facility] Urine sediment bacteria coun t by microscopy (number/high power field)Ordered By: Placido Albrecht on 12-31-2022 Bacteria LM.HPF (Urine sed) [#/Area] 2 /[HPF] None Seen [facility] Urine specific gravity measu rementOrdered By: Placido Albrecht on 12-31-2022 Specific gravity (U) [Rel density] 1.010 1.002-1.03 0 [facility] Urobilinogen Auto test strip Ql (U)Ordered By: Placido Albrecht on 12-31-2022 Urobilinogen Ql (U) 1 mg/dl Normal [facility] Basophil percentageOrdered B y: Alicia Manzano on 12-28-2022 Bilirubin [Mass/Vol] 0.60 mg/dL 0.20-1.00 [facility] Comment on above: For patients on eltr ombopag therapy, use of Dimension [place] TBIL is not recommended. Chloride [Moles/Vol] 107 mmol/L 98-107 [facility] Glucose [Mass/Vol] 131 mg/dL 74-106 [facility] Comment on above: Fasting Glucose resu lt greater than or equal to 126 mg/dL suggests DIABETES MELLITUS per A.D.A. criteria. Potassium [Moles/Vol] 4.0 mmol/L 3.5-5.1 [facility] Protein [Mass/Vol] 6.5 g/dL 6.4-8.2 [facility] Sodium [Moles/Vol] 138 mmol/L 136-145 [facility] WBC (Bld) [#/Vol] 3.3 10*3/uL 4.4-11.0 [facility] Blood erythrocytes count (nu mber/volume)Ordered By: Alicia Manzano on 12-28-2022 RBC (Bld) [#/Vol] 3.56 10*6/uL 4.2-5.4 [facility] Blood hemoglobin measurement (mass/volume)Ordered By: Alicia Manzano on 12-28-2022 Hemoglobin (Bld) [Mass/Vol] 11.2 g/dL 12.0-15.0 [facility] Blood platelet mean volumeOr dered By: Alicia Manzano on 12-28-2022 Platelet mean volume (Bld) [Entitic vol] 11.7 fL 6.2-12.0 [facility] Determination of erythrocyte mean corpuscular volume (MCV)Ordered By: Alicia Manzano on 12-28-2022 MCV (RBC) [Entitic vol] 94.9 fL 81-99 [facility] Hematocrit Auto (Bld) [Volum e fraction]Ordered By: Alicia Manzano on 12-28-2022 Hematocrit (Bld) [Volume fraction] 33.8 % 37-47 [facility] Laboratory - Chemistry and C hemistry - challengeOrdered By: Alicia Manzano on 12-28-2022 ALP [Catalytic activity/Vol] 97 U/L 45-117 [facility] ALT [Catalytic activity/Vol] 120 U/L 13-56 [facility] CO2 [Moles/Vol] 25.0 mmol/L 21.0-32.0 [facility] Globulin (S) [Mass/Vol] 3.5 g/dL 2.2-4.2 [facility] Urea nitrogen/Creatinine [Mass ratio] 16.7 mg/mg 10-20 [facility] Laboratory - Hematology and Cell countsOrdered By: Alicia Manzano on 12-28-2022 Erythrocyte distribution width (RBC) [Entitic vol] 49.0 fL 35.1-43.9 [facility] Erythrocyte distribution width (RBC) [Ratio] 14.1 % 11.6-14.6 [facility] MCH (RBC) [Entitic mass] 31.5 pg 27.0-32.0 [facility] MCHC Auto (RBC) [Mass/Vol]Or dered By: Alicia Manzano on 12-28-2022 MCHC (RBC) [Mass/Vol] 33.1 g/dL 32-36 [facility] No Panel InformationOrdered By: Alicia Manzano on 12-28-2022 Estimated Creatinine Clearance Calc 106.97 ml/min [facility] Estimated GFR (MDRD) Amer 171 mL/min >60 [facility] Comment on above: GFR Calc Estimated GFR (MDRD) Non-Af Amer 142 mL/min >60 [facility] Comment on above: Non- GFR Calc Platelets bldOrdered By: Yanet Manzano on 12-28-2022 Platelets (Bld) [#/Vol] 105 10*3/uL 150-450 [facility] Serum or plasma albumin hailee urement (mass/volume)Ordered By: Alicia Manzano on 12-28-2022 Albumin [Mass/Vol] 3.0 g/dL 3.2-5.0 [facility] Serum or plasma albumin/glob ulin mass ratioOrdered By: Alicia Manzano on 12-28-2022 Albumin/Globulin [Mass ratio] 0.9 {ratio} 0.9-2.4 [facility] Serum or plasma calcium hailee urement (mass/volume)Ordered By: Alicia Manzano on 12-28-2022 Calcium [Mass/Vol] 8.5 mg/dL 8.5-10.1 [facility] Serum or plasma creatinine m easurement (mass/volume)Ordered By: Alicia Manzano on 12-28-2022 Creatinine [Mass/Vol] 0.48 mg/dL 0.55-1.02 [facility] Comment on above: The validity of the calculated GFR & GFRAA in patients over 70 years has not been determined. Clinical correlation is essential. Serum or plasma urea nitroge n measurement (mass/volume)Ordered By: Alicia Manzano on 12-28-2022 Urea nitrogen [Mass/Vol] 8 mg/dL 7-18 [facility] Thin prep Papanicolaou smear with manual screeningOrdered By: Alicia Manzano on 12-28-2022 Thin prep Papanicolaou smear with manual screening 98 U/L 15-37 [facility] Thin prep Papanicolaou smear with manual screening 6 5-15 [facility] No Panel InformationOrdered By: Alicia Manzano on 12-27-2022 Activated Clotting Time 239 sec 74-137 [facility] Absolute lymphocyte countOrd ered By: Chanel Saleh on 11-27-2022 Lymphocytes Auto (Unsp spec) [#/Vol] 1.81 10*3/uL 0.83-4.51 [facility] Basophil percentageOrdered B y: Chanel Saleh on 11-27-2022 Basophil percentage 0-5 SEEN /hpf 0-5 [facility] Basophils/100 WBC (Bld) 0.3 % 0-1 [facility] Bilirubin [Mass/Vol] 0.60 mg/dL 0.20-1.00 [facility] Comment on above: For patients on eltr ombopag therapy, use of Dimension [place] TBIL is not recommended. Chloride [Moles/Vol] 101 mmol/L 98-107 [facility] Eosinophils/100 WBC (Bld) 2.0 % 0-5 [facility] Glucose [Mass/Vol] 98 mg/dL 74-106 [facility] Lactate [Moles/Vol] 1.7 mmol/L 0.4-2.0 [facility] Neutrophils (Bld) [#/Vol] 1.6 10*3/uL 2.0-7.7 [facility] Neutrophils/100 WBC (Bld) 40.8 % 47-70 [facility] Potassium [Moles/Vol] 3.6 mmol/L 3.5-5.1 [facility] Protein [Mass/Vol] 7.6 g/dL 6.4-8.2 [facility] Sodium [Moles/Vol] 132 mmol/L 136-145 [facility] WBC (Bld) [#/Vol] 4.0 10*3/uL 4.4-11.0 [facility] Bilirubin Test strip Ql (U)O rdered By: Chanel Saleh on 11-27-2022 Bilirubin Ql (U) Negative Negative [facility] Blood erythrocytes count (nu mber/volume)Ordered By: Chanel Saleh on 11-27-2022 RBC (Bld) [#/Vol] 3.88 10*6/uL 4.2-5.4 [facility] Blood hemoglobin measurement (mass/volume)Ordered By: Chanel Saleh on 11-27-2022 Hemoglobin (Bld) [Mass/Vol] 12.1 g/dL 12.0-15.0 [facility] Blood lymphocytes/100 leukoc ytesOrdered By: Chanel Saleh on 11-27-2022 Lymphocytes/100 WBC (Bld) 45.8 % 19-41 [facility] Blood monocytes/100 leukocyt esOrdered By: Chanel Saleh on 11-27-2022 Monocytes/100 WBC (Bld) 10.6 % 0-10 [facility] Blood platelet mean volumeOr dered By: Chanel Saleh on 11-27-2022 Platelet mean volume (Bld) [Entitic vol] 12.1 fL 6.2-12.0 [facility] Determination of erythrocyte mean corpuscular volume (MCV)Ordered By: Chanel Saleh on 11-27-2022 MCV (RBC) [Entitic vol] 93.3 fL 81-99 [facility] Hematocrit Auto (Bld) [Volum e fraction]Ordered By: Chanel Saleh on 11-27-2022 Hematocrit (Bld) [Volume fraction] 36.2 % 37-47 [facility] Ketones Test strip Ql (U)Ord ered By: Chanel Saleh on 11-27-2022 Ketones Ql (U) Negative Negative [facility] Laboratory - Chemistry and C hemistry - challengeOrdered By: Chanel Saleh on 11-27-2022 ALP [Catalytic activity/Vol] 123 U/L 45-117 [facility] ALT [Catalytic activity/Vol] 167 U/L 13-56 [facility] CO2 [Moles/Vol] 25.0 mmol/L 21.0-32.0 [facility] Globulin (S) [Mass/Vol] 4.1 g/dL 2.2-4.2 [facility] Lipase [Catalytic activity/Vol] 161 U/L 13-75 [facility] Comment on above: Please note:LIPASE r evised reference range effective 22. New Lipase methodology. Expected to produce lower values than the previous assay method. NEW Reference Range: 13 - 75 U/L Urea nitrogen/Creatinine [Mass ratio] 13.5 mg/mg 10-20 [facility] Laboratory - Hematology and Cell countsOrdered By: Chanel Saleh on 11-27-2022 Erythrocyte distribution width (RBC) [Entitic vol] 45.4 fL 35.1-43.9 [facility] Erythrocyte distribution width (RBC) [Ratio] 13.5 % 11.6-14.6 [facility] Immature granulocytes/100 WBC (Bld) 0.500 % 0.0-0.9 [facility] Comment on above: IG% - Immature Granu locytes (promyelocytes, myelocytes and metamyelocytes) > 1% indicates that a LEFT SHIFT is Present. MCH (RBC) [Entitic mass] 31.2 pg 27.0-32.0 [facility] Nucleated RBC/100 WBC (Bld) [Ratio] 0 % 0-5 [facility] MCHC Auto (RBC) [Mass/Vol]Or dered By: Chanel Saleh on 11-27-2022 MCHC (RBC) [Mass/Vol] 33.4 g/dL 32-36 [facility] Mucus LM Ql (Urine sed)Order ed By: Chanel Saleh on 11-27-2022 Mucus Ql (Urine sed) 0 SEEN /hpf [facility] Nitrite Test strip Ql (U)Ord ered By: Chanel Saleh on 11-27-2022 Nitrite Ql (U) Negative Negative [facility] No Panel InformationOrdered By: Chanel Saleh on 11-27-2022 Estimated Creatinine Clearance Calc 69.38 ml/min [facility] Estimated GFR (MDRD) Amer 104 mL/min >60 [facility] Comment on above: GFR Calc Estimated GFR (MDRD) Non-Af Amer 86 mL/min >60 [facility] Comment on above: Non- GFR Calc Platelets bldOrdered By: Shannan Saleh on 11-27-2022 Platelets (Bld) [#/Vol] 138 10*3/uL 150-450 [facility] Protein Test strip Ql (U)Ord ered By: Chanel Saleh on 11-27-2022 Protein Ql (U) Negative Negative [facility] Serum or plasma albumin hailee urement (mass/volume)Ordered By: Chanel Saleh on 11-27-2022 Albumin [Mass/Vol] 3.5 g/dL 3.2-5.0 [facility] Serum or plasma albumin/glob ulin mass ratioOrdered By: Chanel Saleh on 11-27-2022 Albumin/Globulin [Mass ratio] 0.9 {ratio} 0.9-2.4 [facility] Serum or plasma calcium hailee urement (mass/volume)Ordered By: Chanel Saleh on 11-27-2022 Calcium [Mass/Vol] 8.7 mg/dL 8.5-10.1 [facility] Serum or plasma creatinine m easurement (mass/volume)Ordered By: Chnael Saleh on 11-27-2022 Creatinine [Mass/Vol] 0.74 mg/dL 0.55-1.02 [facility] Comment on above: The validity of the calculated GFR & GFRAA in patients over 70 years has not been determined. Clinical correlation is essential. Serum or plasma urea nitroge n measurement (mass/volume)Ordered By: Chanel Saleh on 11-27-2022 Urea nitrogen [Mass/Vol] 10 mg/dL 7-18 [facility] Squamous epithelial cells de tection in urine sediment by light microscopyOrdered By: Chanel Saleh on 11-27-2022 Epithelial cells.squamous LM Ql (Urine sed) 0-5 SEEN /hpf 5-10 [facility] Thin prep Papanicolaou smear with manual screeningOrdered By: Chanel Saleh on 11-27-2022 Thin prep Papanicolaou smear with manual screening 146 U/L 15-37 [facility] Thin prep Papanicolaou smear with manual screening 6 5-15 [facility] Urine blood detectionOrdered By: Chanel Saleh on 11-27-2022 RBC Ql (U) Negative Negative [facility] RBC Ql (U) 0-5 SEEN /hpf 0-5 [facility] Urine clarityOrdered By: Shannan Saleh on 11-27-2022 Clarity (U) Clear Clear [facility] Urine color determinationOrd ered By: Chanel Saleh on 11-27-2022 Color (U) Yellow Yellow [facility] Urine glucose detectionOrder ed By: Chanel Saleh on 11-27-2022 Glucose Ql (U) Normal mg/dl Normal [facility] Urine leukocyte esterase det ection by dipstickOrdered By: Chanel Saleh on 11-27-2022 Leukocyte esterase Test strip Ql (U) Negative Negative [facility] Urine pHOrdered By: Chanel Mayen gur on 11-27-2022 pH (U) 7.0 [pH] 5.0 - 8.0 [facility] Urine sediment bacteria coun t by microscopy (number/high power field)Ordered By: Chanel Saleh on 11-27-2022 Bacteria LM.HPF (Urine sed) [#/Area] RARE /hpf None Seen [facility] Urine specific gravity measu rementOrdered By: Chanel Saleh on 11-27-2022 Specific gravity (U) [Rel density] 1.005 1.002-1.03 0 [facility] Urobilinogen Auto test strip Ql (U)Ordered By: Chanel Saleh on 11-27-2022 Urobilinogen Ql (U) Normal mg/dl Normal [facility] Basophil percentageOrdered B y: Alicia Manzano on 11-16-2022 Cholesterol [Mass/Vol] 154 mg/dL <200 [facility] Comment on above: <200 mg/dL Desirable 200-240 mg/dL Borderline >240 mg/dL High Risk Triglyceride [Mass/Vol] 210 mg/dL <199 [facility] Comment on above: The drugs N-Acetylcy steine and Metamizole may falsely depress this assay.Serum Triglycerides Reference Interval Normal <150 mg/dL Borderline high 150 - 199 mg/dL High 200 - 499 mg/dL Very High > or = 500 mg/dL INR in Blood by Coagulation assayOrdered By: Alicia Manzano on 11-16-2022 INR Coag (Bld) [Relative time] 1.1 {INR} [facility] Laboratory - CoagulationOrde red By: Alicia Manzano on 11-16-2022 aPTT Coag (Bld) [Time] 31.7 s 24.1-36.2 [facility] PT Coag (PPP) [Time] 14.0 s 11.7-14.9 [facility] Serum or plasma cholesterol in HDL measurement (mass/volume)Ordered By: Alicia Manzano on 11-16-2022 Cholesterol in HDL [Mass/Vol] 32 mg/dL >40 [facility] Comment on above: The drugs N-Acetylcy steine and Metamizole may falsely depress this assay. Reference Range HDL <40 mg/dL Low HDL Cholesterol HDL >or= 60 mg/dL High HDL Cholesterol Serum or plasma cholesterol in VLDL measurement (mass/volume)Ordered By: Alicia Manzano on 11-16-2022 Cholesterol in VLDL [Mass/Vol] 42 mg/dL 5-40 [facility] Serum or plasma low density lipoprotein (LDL) cholesterol measurement (mass/volume)Ordered By: Alicia Manzano on 11-16-2022 Cholesterol in LDL [Mass/Vol] 80 mg/dL 0-130 [facility] MIN SCREENING W TOMOon 11-09 [facility] US ABD RIGHT UPPER QUADRANTo n 09-21-2022 [facility] CBC W Auto Differential pane l (Bld)on 09-14-2022 Basophils (Bld) [#/Vol] <0.11 k/uL [facility] Basophils/100 WBC (Bld) 0.4 % [facility] Differential cell count method Nom (Bld) Auto [facility] Eosinophils (Bld) [#/Vol] 0.07 10*3/uL <0.46 k/uL [facility] Eosinophils/100 WBC (Bld) 1.5 % [facility] Erythrocyte distribution width (RBC) [Ratio] 14.0 % 11.5 - 15.0 % [facility] Hematocrit (Bld) [Volume fraction] 39.1 % 36.0 - 46.0 % [facility] Hemoglobin (Bld) [Mass/Vol] 12.8 g/dL 11.5 - 15.5 g/dL [facility] Immature granulocytes (Bld) [#/Vol] <0.10 k/uL [facility] Immature granulocytes/100 WBC (Bld) 0.2 % [facility] Lymphocytes (Bld) [#/Vol] 1.69 10*3/uL 1.00 - 4.00 k/uL [facility] Lymphocytes/100 WBC (Bld) 37.2 % [facility] MCH (RBC) [Entitic mass] 30.8 pg 26.0 - 34.0 pg [facility] MCHC (RBC) [Mass/Vol] 32.7 g/dL 30.5 - 36.0 g/dL [facility] MCV (RBC) [Entitic vol] 94.0 fL 80.0 - 100.0 fL [facility] Monocytes (Bld) [#/Vol] 0.39 10*3/uL <0.87 k/uL [facility] Monocytes/100 WBC (Bld) 8.6 % [facility] Neutrophils (Bld) [#/Vol] 2.36 10*3/uL 1.45 - 7.50 k/uL [facility] Neutrophils/100 WBC (Bld) 52.1 % [facility] Nucleated RBC (Bld) [#/Vol] <0.01 k/uL [facility] Nucleated RBC/100 WBC (Bld) [Ratio] 0.0 /100 WBC [facility] Platelet mean volume (Bld) [Entitic vol] 12.6 fL 9.0 - 12.7 fL [facility] Platelets (Bld) [#/Vol] 152 10*3/uL 150 - 400 k/uL [facility] RBC (Bld) [#/Vol] 4.16 10*6/uL 3.90 - 5.20 m/uL [facility] WBC (Bld) [#/Vol] 4.54 10*3/uL 3.70 - 11.00 k/uL [facility] No Panel InformationOrdered By: Dr. Anguiano on 08-25-2022 Nasopharyngeal Culture Culture exhibits no growth. [facility] Gram stain for investigation of transfusion reactionOrdered By: Dr. Anguiano on 08-24-2022 Microscopic observation Gram stain Nom (Unsp spec) [facility] Gram stain for investigation of transfusion reactionOrdered By: Wilder Anguiano on 08-23-2022 Microscopic observation Gram stain Nom (Unsp spec) [facility] No Panel InformationOrdered By: Wilder Anguiano on 08-23-2022 Nasopharyngeal Culture Culture exhibits no growth. [facility] CBC W Auto Differential pane l (Bld)on 06-16-2022 Basophils (Bld) [#/Vol] <0.11 k/uL [facility] Basophils/100 WBC (Bld) 0.4 % [facility] Differential cell count method Nom (Bld) Auto [facility] Eosinophils (Bld) [#/Vol] 0.08 10*3/uL <0.46 k/uL [facility] Eosinophils/100 WBC (Bld) 1.5 % [facility] Erythrocyte distribution width (RBC) [Ratio] 14.0 % 11.5 - 15.0 % [facility] Hematocrit (Bld) [Volume fraction] 39.8 % 36.0 - 46.0 % [facility] Hemoglobin (Bld) [Mass/Vol] 13.3 g/dL 11.5 - 15.5 g/dL [facility] Immature granulocytes (Bld) [#/Vol] <0.10 k/uL [facility] Immature granulocytes/100 WBC (Bld) 0.2 % [facility] Lymphocytes (Bld) [#/Vol] 1.95 10*3/uL 1.00 - 4.00 k/uL [facility] Lymphocytes/100 WBC (Bld) 35.7 % [facility] MCH (RBC) [Entitic mass] 31.1 pg 26.0 - 34.0 pg [facility] MCHC (RBC) [Mass/Vol] 33.4 g/dL 30.5 - 36.0 g/dL [facility] MCV (RBC) [Entitic vol] 93.0 fL 80.0 - 100.0 fL [facility] Monocytes (Bld) [#/Vol] 0.49 10*3/uL <0.87 k/uL [facility] Monocytes/100 WBC (Bld) 9.0 % [facility] Neutrophils (Bld) [#/Vol] 2.91 10*3/uL 1.45 - 7.50 k/uL [facility] Neutrophils/100 WBC (Bld) 53.2 % [facility] Nucleated RBC (Bld) [#/Vol] <0.01 k/uL [facility] Nucleated RBC/100 WBC (Bld) [Ratio] 0.0 /100 WBC [facility] Platelet mean volume (Bld) [Entitic vol] 13.6 fL High 9.0 - 12.7 fL [facility] Platelets (Bld) [#/Vol] 140 10*3/uL Low 150 - 400 k/uL [facility] RBC (Bld) [#/Vol] 4.28 10*6/uL 3.90 - 5.20 m/uL [facility] WBC (Bld) [#/Vol] 5.46 10*3/uL 3.70 - 11.00 k/uL [facility] ESR Westergren method (Bld) [Velocity]on 06-16-2022 ESR (Bld) [Velocity] 29 mm/h High 0 - 20 mm/hr [facility] HbA1c (Bld)on 06-16-2022 Average glucose Estimated from glycated hemoglobin (Bld) [Mass/Vol] 200 mg/dL [facility] HbA1c (Bld) [Mass fraction] 8.6 % High 4.3 - 5.6 % [facility] No Panel InformationOrdered By: Dr. Anguiano on 05-19-2022 Nasopharyngeal Culture No growth in 48 hours. [facility] Gram stain for investigation of transfusion reactionOrdered By: Dr. Anguiano on 05-18-2022 Microscopic observation Gram stain Nom (Unsp spec) [facility] XR CHEST 2V FRONTAL/LATon [facility] XR Chest PA and Lateralon IMPRESSION: No acute radiographic abnormality. 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 DIVISION OF RADIOLOGY Provider, [facility] - 04/19/2022 * * *Final [...] Unremarkable. IMPRESSION IMPRESSION: No acute radiographic abnormality. Refrigeration Insulator: PSCB Transcribe Date/Time: Apr 19 2022 9:42A Dictated by : RONNIE LOVE MD This examination was interpreted and the report reviewed and electronically signed by: RONNIE LOVE MD on Apr 19 2022 9:43AM EST [facility] Radiology Study observation (narrative) [facility] XR Chest PA and LateralOrder ed By: [facility] Provider on 04-19-2022 [facility] Basophil percentageon 2021 Bilirubin [Mass/Vol] 0.90 mg/dL 0.20-1.00 [facility] Comment on above: For patients on eltr ombopag therapy, use of Dimension [place] TBIL is not recommended. Protein [Mass/Vol] 7.4 g/dL 6.4-8.2 [facility] Direct bilirubinon Bilirubin.direct [Mass/Vol] 0.26 mg/dL 0.00-0.30 [facility] Laboratory - Chemistry and C hemistry - challengeon 04-05-2022 ALP [Catalytic activity/Vol] 121 U/L 45-117 [facility] ALT [Catalytic activity/Vol] 185 U/L 13-56 [facility] Globulin (S) [Mass/Vol] 3.7 g/dL 2.2-4.2 [facility] Serum or plasma albumin hailee urement (mass/volume)on 04-05-2022 Albumin [Mass/Vol] 3.7 g/dL 3.2-5.0 [facility] Thin prep Papanicolaou smear with manual screeningon 04-05-2022 Thin prep Papanicolaou smear with manual screening 148 U/L 15-37 [facility] Absolute lymphocyte counton 03-17-2022 Lymphocytes Auto (Unsp spec) [#/Vol] 1.70 10*3/uL 0.83-4.51 [facility] Basophil percentageon 2021 Basophils/100 WBC (Bld) 0.2 % 0-1 [facility] Bilirubin [Mass/Vol] 0.70 mg/dL 0.20-1.00 [facility] Comment on above: For patients on eltr ombopag therapy, use of Dimension [place] TBIL is not recommended. Chloride [Moles/Vol] 101 mmol/L 98-107 [facility] Cholesterol [Mass/Vol] 169 mg/dL <200 [facility] Comment on above: <200 mg/dL Desirable 200-240 mg/dL Borderline >240 mg/dL High Risk Eosinophils/100 WBC (Bld) 1.8 % 0-5 [facility] Glucose [Mass/Vol] 142 mg/dL 74-106 [facility] Comment on above: Fasting Glucose resu lt greater than or equal to 126 mg/dL suggests DIABETES MELLITUS per A.D.A. criteria. Neutrophils (Bld) [#/Vol] 2.3 10*3/uL 2.0-7.7 [facility] Neutrophils/100 WBC (Bld) 51.2 % 47-70 [facility] Potassium [Moles/Vol] 3.9 mmol/L 3.5-5.1 [facility] Protein [Mass/Vol] 7.2 g/dL 6.4-8.2 [facility] Sodium [Moles/Vol] 135 mmol/L 136-145 [facility] Triglyceride [Mass/Vol] 105 mg/dL <199 [facility] Comment on above: The drugs N-Acetylcy steine and Metamizole may falsely depress this assay.Serum Triglycerides Reference Interval Normal <150 mg/dL Borderline high 150 - 199 mg/dL High 200 - 499 mg/dL Very High > or = 500 mg/dL WBC (Bld) [#/Vol] 4.4 10*3/uL 4.4-11.0 [facility] Blood erythrocytes count (nu mber/volume)on 03-17-2022 RBC (Bld) [#/Vol] 4.10 10*6/uL 4.2-5.4 [facility] Blood hemoglobin measurement (mass/volume)on 03-17-2022 Hemoglobin (Bld) [Mass/Vol] 13.1 g/dL 12.0-15.0 [facility] Blood lymphocytes/100 leukoc yteson 03-17-2022 Lymphocytes/100 WBC (Bld) 38.5 % 19-41 [facility] Blood monocytes/100 leukocyt eson 03-17-2022 Monocytes/100 WBC (Bld) 8.1 % 0-10 [facility] Blood platelet mean volumeon 03-17-2022 Platelet mean volume (Bld) [Entitic vol] 12.9 fL 6.2-12.0 [facility] Determination of erythrocyte mean corpuscular volume (MCV)on 03-17-2022 MCV (RBC) [Entitic vol] 96.6 fL 81-99 [facility] Direct bilirubinon Bilirubin.direct [Mass/Vol] 0.24 mg/dL 0.00-0.30 [facility] Hematocrit Auto (Bld) [Volum e fraction]on 03-17-2022 Hematocrit (Bld) [Volume fraction] 39.6 % 37-47 [facility] INR in Blood by Coagulation assayon 03-17-2022 INR Coag (Bld) [Relative time] 1.1 {INR} [facility] Iron measurement (mass/mass) on 03-17-2022 Iron (Unsp spec) [Mass/Mass] 133 ug/dL 50-170 [facility] Laboratory - Chemistry and C hemistry - challengeon 03-17-2022 Albumin [Mass/Vol] 3.6 g/dL 2.9-4.4 [facility] ALP [Catalytic activity/Vol] 108 U/L 45-117 [facility] ALT [Catalytic activity/Vol] 186 U/L 13-56 [facility] Amylase [Catalytic activity/Vol] 203 U/L 5-55 [facility] CO2 [Moles/Vol] 26.0 mmol/L 21.0-32.0 [facility] Cobalamin (Vitamin B12) [Mass/Vol] 355 pg/mL 211-911 [facility] Globulin (S) [Mass/Vol] 3.7 g/dL 2.2-4.2 [facility] T4 [Mass/Vol] 14.5 ug/dL 4.8-13.9 [facility] Urea nitrogen/Creatinine [Mass ratio] 16.8 mg/mg 10-20 [facility] Laboratory - Coagulationon 1 05-17-2021 aPTT Coag (Bld) [Time] 31.6 s 24.1-36.2 [facility] PT Coag (PPP) [Time] 14.1 s 11.7-14.9 [facility] Laboratory - Hematology and Cell countson 03-17-2022 Erythrocyte distribution width (RBC) [Entitic vol] 47.5 fL 35.1-43.9 [facility] Erythrocyte distribution width (RBC) [Ratio] 13.3 % 11.6-14.6 [facility] Immature granulocytes/100 WBC (Bld) 0.200 % 0.0-0.9 [facility] Comment on above: IG% - Immature Granu locytes (promyelocytes, myelocytes and metamyelocytes) > 1% indicates that a LEFT SHIFT is Present. MCH (RBC) [Entitic mass] 32.0 pg 27.0-32.0 [facility] Nucleated RBC/100 WBC (Bld) [Ratio] 0 % 0-5 [facility] MCHC Auto (RBC) [Mass/Vol]on 03-17-2022 MCHC (RBC) [Mass/Vol] 33.1 g/dL 32-36 [facility] No Panel Informationon 03-17 Addendum Document Comment . [facility] Comment on above: The SPE pattern appe ars unremarkable. Evidence ofmonoclonal protein is not apparent. Qtgfb-9-Qyxmnpsif 0.3 g/dL 0.0-0.4 [facility] Ouyfv-2-Ytitlhrzt 0.6 g/dL 0.4-1.0 [facility] Anti-Gliadin IgA Antibody 8 units 0-19 [facility] Comment on above: Negative 0 - 19 Weak Positive 20 - 30 Moderate to Strong Positive >30 Anti-Gliadin IgG Antibody 3 units 0-19 [facility] Comment on above: Negative 0 - 19 Weak Positive 20 - 30 Moderate to Strong Positive >30 Anti-Nuclear Antibody Screen Positive Negative [facility] Ceruloplasmin 23.8 mg/dL 19.0-39.0 [facility] Cytomegalovirus DNA Qual (PCR) Negative Negative [facility] Comment on above: No Cytomegalovirus D NA Detected.This test was developed and its performance characteristicsdetermined by [employer]. It has not been cleared or approvedby the Food and Drug Administration. The FDA hasdetermined that such clearance or approval is notnecessary. Estimated GFR (MDRD) Amer 134 mL/min >60 [facility] Comment on above: GFR Calc Estimated GFR (MDRD) Non-Af Amer 111 mL/min >60 [facility] Comment on above: Non- GFR Calc Gamma Globulins 1.0 g/dL 0.4-1.8 [facility] Miscellaneous Test See comment [facility] Comment on above: TEST RESULT LIMITSLi jean-Kidney Microsomal Ab 1.2 Units 0.0- 20.0 Negative 0.0 - 20.0 Equivocal 20.1 - 24.9 Positive >24.9 LKM type 1 antibodies are detected in patients with autoimmune hepatitis type 2 and in up to 8% of patients with chronic HCV infection. ____ TESTING PERFORMED AT [facility]. ORIGINAL REPORT ON FILE IN LAB CONTAINS [...] characteristics of the listed assay wasvalidated by [facility]. The [place] FDA has not approved or cleared this test. The results ofthis assay can be used for clinical diagnosis without FDAapproval. [facility] is a CLIA certified, CAP accredited laboratory for performing high complexity assays such as this one.Testing Performed at: [facility] [address] [place] [id number] IgA <1.2 U/mL < 4.0 Reference Range Negative < 4.0 U/mL Weak Positive 4.0 - 10.0 U/mL Positive > 10.0 U/mL TESTING PERFORMED AT [facility]. ORIGINAL REPORT ON FILE IN LAB CONTAINS ADDITIONAL TEST SITE INFORMATION. Total Iron Binding Capacity 358 ug/dL 250-450 [facility] Platelets bldon 03-17-2022 Platelets (Bld) [#/Vol] 146 10*3/uL 150-450 [facility] Protein Fractions Elph [Inte rp]on 03-17-2022 Protein Fractions [Interp] Comment . [facility] Comment on above: Protein electrophore sis scan will follow via computer,mail, or representative delivery. Serum Thais Bacon virus cap sharron IgG antibody assay (units/volume)on 03-17-2022 EBV capsid IgG Qn (S) 149.0 [arb'U]/mL 0.0-17.9 [facility] Comment on above: Negative <18.0 Equiv ocal 18.0 - 21.9 Positive >21.9 Serum Thais Bacon virus cap sharron IgM antibody assay (units/volume)on 03-17-2022 EBV capsid IgM Qn (S) [arb'U]/mL 0.0-35.9 [facility] Comment on above: Negative <36.0 Equiv ocal 36.0 - 43.9 Positive >43.9 Serum Thais Bacon virus nuc lear IgG antibody assay (units/volume)on 03-17-2022 EBV nuclear IgG Qn (S) < 18.0 U/mL 0.0-17.9 [facility] Comment on above: Negative <18.0 Equiv ocal 18.0 - 21.9 Positive >21.9 Serum albumin to globulin ra paula by protein electrophoresison 03-17-2022 Albumin/Globulin Elph [Mass ratio] 1.2 0.7-1.7 [facility] Serum [id number]-[id number]-wekqkghjpgz me asurementon 03-17-2022 Alpha 1 antitrypsin [Mass/Vol] 183 mg/dL 101-187 [facility] Comment on above: Performed at: [facility] [address] [id number] Director: Jose Castillo PhD, Phone: [phone] Serum globulin measurement ( mass/volume)on 03-17-2022 Globulin (S) [Mass/Vol] 2.9 g/dL 2.2-3.9 [facility] Serum mitochondria antibody detectionon 03-17-2022 Mitochondria Ab Ql (S) <20.0 Units 0.0-20.0 [facility] Comment on above: Negative 0.0 - 20.0 Equivocal 20.1 - 24.9 Positive >24.9Mitochondrial (M2) Antibodies are found in 90-96% ofpatients with primary biliary cirrhosis. Serum or plasma IgA measurem ent (mass/volume)on 03-17-2022 IgA [Mass/Vol] 223 mg/dL 87-352 [facility] Comment on above: Performed at: [facility] [address] [id number] Director: Jose Castillo PhD, Phone: [phone] at: - Lab[address] [id number] Director: Brigido Mtz MD, Phone: [phone] Serum or plasma actin IgG an tibody assay (units/volume)on 03-17-2022 Actin IgG Qn 11 Units 0-19 [facility] Comment on above: Negative 0 - 19 Weak positive 20 - 30 Moderate to strong positive >30 Actin Antibodies are found in 52-85% of patients with autoimmune hepatitis or chronic active hepatitis and in 22% of patients with primary biliary cirrhosis. Serum or plasma albumin hailee urement (mass/volume)on 03-17-2022 Albumin [Mass/Vol] 3.5 g/dL 3.2-5.0 [facility] Serum or plasma rjxud-4-wajk protein tumor marker measurement (units/volume)on 03-17-2022 AFP.tumor marker Qn 6.7 ng/mL 0.0-9.2 [facility] Comment on above: [employer] El ectrochemiluminescence Immunoassay(ECLIA)Values obtained with different assay methods or kits cannotbe used interchangeably. Results cannot be interpreted asabsolute evidence of the presence or absence of malignantdisease.This test is not interpretable in females. Serum or plasma beta globuli n measurement by electrophoresis (mass/volume)on 03-17-2022 Beta globulin Elph [Mass/Vol] 1.0 g/dL 0.7-1.3 [facility] Serum or plasma calcium hailee urement (mass/volume)on 03-17-2022 Calcium [Mass/Vol] 9.2 mg/dL 8.5-10.1 [facility] Serum or plasma cholesterol in HDL measurement (mass/volume)on 03-17-2022 Cholesterol in HDL [Mass/Vol] 39 mg/dL >40 [facility] Comment on above: The drugs N-Acetylcy steine and Metamizole may falsely depress this assay. Reference Range HDL <40 mg/dL Low HDL Cholesterol HDL >or= 60 mg/dL High HDL Cholesterol Serum or plasma cholesterol in VLDL measurement (mass/volume)on 03-17-2022 Cholesterol in VLDL [Mass/Vol] 21 mg/dL 5-40 [facility] Serum or plasma creatinine m easurement (mass/volume)on 03-17-2022 Creatinine [Mass/Vol] 0.59 mg/dL 0.55-1.02 [facility] Comment on above: The validity of the calculated GFR & GFRAA in patients over 70 years has not been determined. Clinical correlation is essential. Serum or plasma ferritin prince surement (mass/volume)on 03-17-2022 Ferritin [Mass/Vol] 177 ng/mL 8-252 [facility] Serum or plasma iron saturat ion measurement (mass fraction)on 03-17-2022 Iron saturation [Mass fraction] 37.2 % 15.0-55.0 [facility] Serum or plasma low density lipoprotein (LDL) cholesterol measurement (mass/volume)on 03-17-2022 Cholesterol in LDL [Mass/Vol] 109 mg/dL 0-130 [facility] Serum or plasma retinol hailee urement (mass/volume)on 03-17-2022 Retinol [Mass/Vol] 31.1 ug/dL 20.1-62.0 [facility] Comment on above: Reference intervals for vitamin [...] 03-17-2022 Urea nitrogen [Mass/Vol] 10 mg/dL 7-18 [facility] Thin prep Papanicolaou smear with manual screeningon 03-17-2022 Thin prep Papanicolaou smear with manual screening 159 U/L 15-37 [facility] Thin prep Papanicolaou smear with manual screening 8 5-15 [facility] Thin prep Papanicolaou smear with manual screening See comment [facility] Comment on above: Result: Not Observed Thin prep Papanicolaou smear with manual screening Comment . [facility] Comment on above: EBV Interpretation Janiya Ramirez: Antibody Present + Antibody Absent -Interpretation VCA-IgM [...] bloodon 2021 Protein [Mass/Vol] 6.5 g/dL 6.0-8.5 [facility] UA DIP, URINE (POC)on 2021 BILIRUBIN UA (POCT) Negative Negative [facility] CLARITY UA (POCT) Cloudy [facility] COLOR UA (POCT) Dark yellow [facility] GLUCOSE UA (POCT) Negative Negative mg/dL [facility] HEMOGLOBIN/BLOOD UA (POCT) Moderate Abnormal Negative [facility] KETONE UA (POCT) Negative Negative mg/dL [facility] LEUKOCYTES UA (POCT) Large Abnormal Negative [facility] NITRITE UA (POCT) Negative Negative [facility] PH UA (POCT) 7.0 4.5 - 8.0 [facility] Protein Ql (U) 30 mg/dL Abnormal Negative mg/dL [facility] SPECIFIC GRAVITY UA (POCT) 1.015 1.005 - 1.030 [facility] UROBILINOGEN UA (POCT) 2.0 E.U./dL Abnormal Dee l E.U./dL [facility] HEMOGLOBIN A1C (POC)on 01-19 HbA1c (Bld) [Mass fraction] 7.2 % Abnormal 4.2 - 5.6 % [facility] STREP A MOLECULAR (POC)on Procedural Control Valid [facility] Strep A (POCT) Negative Negative [facility] Basophil percentageon 2021 WBC (Bld) [#/Vol] 5.3 10*3/uL 4.4-11.0 [facility] System Work Phone: Blood erythrocytes count (nu mber/volume)on 11-17-2021 RBC (Bld) [#/Vol] 4.00 10*6/uL 4.2-5.4 [facility] Work Phone: Blood hemoglobin measurement (mass/volume)on 11-17-2021 Hemoglobin (Bld) [Mass/Vol] 12.8 g/dL 12.0-15.0 [facility] Work Phone: Blood platelet mean volumeon 11-17-2021 Platelet mean volume (Bld) [Entitic vol] 11.6 fL 6.2-12.0 [facility] Work Phone: Determination of erythrocyte mean corpuscular volume (MCV)on 11-17-2021 MCV (RBC) [Entitic vol] 94.3 fL 81-99 [facility] Work Phone: Hematocrit Auto (Bld) [Volum e fraction]on 11-17-2021 Hematocrit (Bld) [Volume fraction] 37.7 % 37-47 [facility] Work Phone: Laboratory - Hematology and Cell countson 11-17-2021 Erythrocyte distribution width (RBC) [Entitic vol] 45.8 fL 35.1-43.9 [facility] Work Phone: Erythrocyte distribution width (RBC) [Ratio] 13.3 % 11.6-14.6 [facility] Work Phone: MCH (RBC) [Entitic mass] 32.0 pg 27.0-32.0 [facility] Work Phone: MCHC Auto (RBC) [Mass/Vol]on 11-17-2021 MCHC (RBC) [Mass/Vol] 34.0 g/dL 32-36 [facility] Work Phone: Platelets bldon 11-17-2021 Platelets (Bld) [#/Vol] 136 10*3/uL 150-450 [facility] Work Phone: MNI DIAG W ROBERT RTon 022 [facility] Absolute lymphocyte counton 10-24-2021 Lymphocytes Auto (Unsp spec) [#/Vol] 2.06 10*3/uL 0.83-4.51 [facility] Work Phone: Basophil percentageon 2021 Basophils/100 WBC (Bld) 0.4 % 0-1 [facility] Work Phone: Eosinophils/100 WBC (Bld) 1.5 % 0-5 [facility] Work Phone: Neutrophils (Bld) [#/Vol] 2.8 10*3/uL 2.0-7.7 [facility] Work Phone: Neutrophils/100 WBC (Bld) 51.0 % 47-70 [facility] Work Phone: WBC (Bld) [#/Vol] 5.4 10*3/uL 4.4-11.0 [facility] Work Phone: Blood erythrocytes count (nu mber/volume)on 10-24-2021 RBC (Bld) [#/Vol] 4.57 10*6/uL 4.2-5.4 [facility] Work Phone: Blood hemoglobin measurement (mass/volume)on 10-24-2021 Hemoglobin (Bld) [Mass/Vol] 14.3 g/dL 12.0-15.0 [facility] Work Phone: Blood lymphocytes/100 leukoc yteson 10-24-2021 Lymphocytes/100 WBC (Bld) 37.9 % 19-41 [facility] Work Phone: Blood monocytes/100 leukocyt eson 10-24-2021 Monocytes/100 WBC (Bld) 9.0 % 0-10 [facility] Work Phone: Blood platelet mean volumeon 10-24-2021 Platelet mean volume (Bld) [Entitic vol] 12.2 fL 6.2-12.0 [facility] Work Phone: Determination of erythrocyte mean corpuscular volume (MCV)on 10-24-2021 MCV (RBC) [Entitic vol] 92.1 fL 81-99 [facility] Work Phone: Hematocrit Auto (Bld) [Volum e fraction]on 10-24-2021 Hematocrit (Bld) [Volume fraction] 42.1 % 37-47 [facility] Work Phone: Laboratory - Hematology and Cell countson 10-24-2021 Erythrocyte distribution width (RBC) [Entitic vol] 44.1 fL 35.1-43.9 [facility] Work Phone: Erythrocyte distribution width (RBC) [Ratio] 13.0 % 11.6-14.6 [facility] Work Phone: Immature granulocytes/100 WBC (Bld) 0.200 % 0.0-0.9 [facility] Work Phone: Comment on above: IG% - Immature Granu locytes (promyelocytes, myelocytes and metamyelocytes) > 1% indicates that a LEFT SHIFT is Present. MCH (RBC) [Entitic mass] 31.3 pg 27.0-32.0 [facility] Work Phone: Nucleated RBC/100 WBC (Bld) [Ratio] 0 % 0-5 [facility] Work Phone: MCHC Auto (RBC) [Mass/Vol]on 10-24-2021 MCHC (RBC) [Mass/Vol] 34.0 g/dL 32-36 [facility] Work Phone: Platelets bldon 10-24-2021 Platelets (Bld) [#/Vol] 156 10*3/uL 150-450 [facility] Work Phone: HEMOGLOBIN A1C (POC)on 10-13 HbA1c (Bld) [Mass fraction] 8.4 % Abnormal 4.2 - 5.6 % [facility] US ABD RT UPPER QUADRANTon 0 10-13-2021 [facility] XR STERNUM 2V DESAI/LATon 06-0 [facility] XR Sternum Lateral and right anterior obliqueon 10-13-2021 IMPRESSION: Calcific or ossific prominence along the anterior aspect of the lower sternum noted. Refrigeration Insulator: ASHOK Transcribe Date/Time: Oct 13 2021 2:49P Dictated by : ROMULO ROMO DO This examination was interpreted and the report reviewed and electronically signed by: ROMULO ROMO DO on Oct 13 2021 2:53PM EST INNA_DO_NOT_ USE_DIVISIO N OF RADIOLOGY * * *Final [...] view. ZZZ_DO_NOT_ USE_DIVISIO N OF RADIOLOGY Provider, Rojas Samuel - 10/13/2021 * * *Final Report* * [...] anterior aspect of the lower sternum noted. Refrigeration Insulator: PSCB Transcribe Date/Time: Oct 13 2021 2:49P Dictated by : ROMULO ROMO DO This examination was interpreted and the report reviewed and electronically signed by: ROMULO ROMO DO on Oct 13 2021 2:53PM EST [facility] Radiology Study observation (narrative) [facility] XR Sternum Lateral and right anterior obliqueOrdered By: [facility]cf Provider on 10-13-2021 [facility] UA DIP, URINE (POC)on 2021 BILIRUBIN UA (POCT) Negative Negative Enio [facility] CLARITY UA (POCT) Clear [facility] COLOR UA (POCT) Dark yellow [facility] GLUCOSE UA (POCT) Negative Negative mg/dL [facility] HEMOGLOBIN/BLOOD UA (POCT) Negative Negative [facility] KETONE UA (POCT) Trace Negative mg/dL [facility] LEUKOCYTES UA (POCT) Negative Negative [facility] NITRITE UA (POCT) Negative Negative [facility] PH UA (POCT) 6.5 4.5 - 8.0 [facility] Protein Ql (U) Negative Negative mg/dL [facility] SPECIFIC GRAVITY UA (POCT) 1.020 1.005 - 1.030 [facility] UROBILINOGEN UA (POCT) 1.0 E.U./dL Dee l E.U./dL [facility] Automated blood hematocrit ( percentage)on 10-06-2021 Hematocrit (Bld) [Volume fraction] 37.1 % 37-47 [facility] Work Phone: Basophil percentageon 2021 WBC (Bld) [#/Vol] 5.4 10*3/uL 4.4-11.0 [facility] Work Phone: Blood erythrocytes count (nu mber/volume)on 10-06-2021 RBC (Bld) [#/Vol] 3.96 10*6/uL 4.2-5.4 [facility] Work Phone: Blood hemoglobin measurement (mass/volume)on 10-06-2021 Hemoglobin (Bld) [Mass/Vol] 12.3 g/dL 12.0-15.0 [facility] Work Phone: Blood platelet mean volumeon 10-06-2021 Platelet mean volume (Bld) [Entitic vol] 12.1 fL 6.2-12.0 [facility] Work Phone: CBC/DIFF (OUTSIDE )on BASO ABS [facility] Basophil % [facility] EOS ABS [facility] Eosinophil % [facility] Immature Gran % [facility] LYMPH ABS [facility] Lymphocyte % [facility] MONO ABS [facility] Monocyte % [facility] NEUT ABS [facility] Neutrophil % [facility] RDW 44.8 K/uL Abnormal 140 - 440 K/uL [facility] Determination of erythrocyte mean corpuscular volume (MCV)on 10-06-2021 MCV (RBC) [Entitic vol] 93.7 fL 81-99 [facility] Work Phone: Laboratory - Hematology and Cell countson 10-06-2021 Erythrocyte distribution width (RBC) [Entitic vol] 44.8 fL 35.1-43.9 [facility] Work Phone: Erythrocyte distribution width (RBC) [Ratio] 13.1 % 11.6-14.6 [facility] Work Phone: MCH (RBC) [Entitic mass] 31.1 pg 27.0-32.0 [facility] Work Phone: MCHC [Mass/volume] by Automa clayton counton 10-06-2021 MCHC (RBC) [Mass/Vol] 33.2 g/dL 32-36 [facility] Work Phone: Platelets bldon 10-06-2021 Platelets (Bld) [#/Vol] 133 10*3/uL 150-450 [facility] Work Phone: US DOPPLER ABD/PEL/RETRO/LMT Don 01-14-2020 Patient Name: CASSIA HOLLAND ---Ultrasound--- Exam Date/Time 01/14/2020 10:25:00 EDT Exam US Art/Vein Abd/Pelvis/Scrotal Complete Ordering Physician DIA GALARZA Accession Number [id number] CPT4 Codes 83370 () Reason For Exam fatty liver, elevated [...] JOHN Transcribed Date and Time: 01/14/2020 10:53 [facility] [place] Incoming Radiology Results From [facility] - 01/14/2020 11:01 AM EDT Patient Name: CASSIA HOLLAND ---Ultrasound--- Exam Date/Time 01/14/2020 10:25:00 EDT Exam US Art/Vein Abd/Pelvis/Scrotal Complete Ordering Physician DIA GALARZA Accession Number [id number] CPT4 Codes 64526 () Reason For Exam fatty liver, elevated [...] JOHN Transcribed Date and Time: 01/14/2020 10:53 [place], [place] US Liver Doppleron 0 US Liver Doppler Patient Name: CASSIA HOLLAND Ultrasound Exam Date/Time 01/14/2020 10:25:00 EDT Exam US Art/Vein Abd/Pelvis/Scrotal Complete Ordering Physician DIA GALARZA Accession Number [id number] CPT4 Codes 62072 () Reason For Exam fatty liver, elevated [...] JOHN Transcribed Date and Time: 01/14/2020 10:53 [facility] Vital Signs Date Time Vital Sign Value Performing Clinician Facility 10-20-2024 08:35-0400 Body height 160.[address] Opal Mathews MD Work Phone: [facility] 10-20-2024 08:35-0400 Body mass index (BMI) [Ratio] 35.7 kg/m2 Dr. Opal Mathews MD Work Phone: 8(220)[phone] [place] [address] 10-20-2024 08:35-0400 Body weight 91.[address] Opal Mathews MD Work Phone: 2(076)130-869198 [place] [address] 10-20-2024 08:35-0400 Diastolic blood pressure 73 mm[Hg] Dr. Opal Mathews MD Work Phone: 0(468)741-061698 [place] [address] 10-20-2024 08:35-0400 Heart rate 78 /min Dr. Opal Mathews MD Work Phone: 8(513)847-811698 [place] [address] 10-20-2024 08:35-0400 Respiratory rate 16 /min Dr. Opal Mathews MD Work Phone: 5(916)720-576598 [place] [address] 10-20-2024 08:35-0400 Systolic blood pressure 114 mm[Hg] Dr. Opal Mathews MD Work Phone: 7(913)409-195198 [place] [address] 08-19-2024 15:18-0400 Body mass index (BMI) [Ratio] 35.6 kg/m2 Krislyn Aberegg PA Work Phone: [facility] 08-19-2024 15:18-0400 Body temperature 98.01 [degF] Krislyn Aberegg PA Work Phone: 6(698)835-539366 [place] [address] 08-19-2024 15:18-0400 Body weight 89 kg Krislyn Aberegg PA Work Phone: 7(408)911-069266 [place] [address] 08-19-2024 15:18-0400 Diastolic blood pressure 82 mm[Hg] Krislyn Aberegg PA Work Phone: [facility] 08-19-2024 15:18-0400 Heart rate 81 /min Krislyn Aberegg PA Work Phone: [facility] 08-19-2024 15:18-0400 Respiratory rate 18 /min Krislyn Aberegg PA Work Phone: [facility] 08-19-2024 15:18-0400 SaO2% (BldA) [Mass fraction] 99 % Krislyn Aberegg PA Work Phone: [facility] 08-19-2024 15:18-0400 Systolic blood pressure 132 mm[Hg] Jacque HAWK Work Phone: [facility] 08-18-2024 16:08-0400 Body mass index (BMI) [Ratio] 34.11 kg/m2 Opal Mathews MD Work Phone: [facility] 08-18-2024 16:08-0400 Body temperature 98.2 [degF] Opal Mathews MD Work Phone: [facility] 08-18-2024 16:08-0400 Body weight 85.28 kg Opal Mathews MD Work Phone: [facility] 08-18-2024 16:08-0400 Diastolic blood pressure 81 mm[Hg] Opal Mathews MD Work Phone: [facility] 08-18-2024 16:08-0400 Heart rate 89 /min Opal Mathews MD Work Phone: [facility] 08-18-2024 16:08-0400 Respiratory rate 16 /min Opal Mathews MD Work Phone: [facility] 08-18-2024 16:08-0400 Systolic blood pressure 138 mm[Hg] Opal Mathews MD Work Phone: [facility] 06-30-2024 08:30-0500 Body mass index (BMI) [Ratio] 33.6 kg/m2 SHAHRIAR OLDER FURNITURE FABRICATOR-C Work Phone: [facility] 06-30-2024 08:30-0500 Body weight 86.18 kg SHAHRIAR OLDER FURNITURE FABRICATOR-C Work Phone: [facility] 06-30-2024 08:30-0500 Diastolic blood pressure 88 mm[Hg] SHAHRIAR OLDER FURNITURE FABRICATOR-C Work Phone: [facility] 06-30-2024 08:30-0500 Heart rate 85 /min SHAHRIAR OLDER FURNITURE FABRICATOR-C Work Phone: [facility] 06-30-2024 08:30-0500 Respiratory rate 18 /min SHAHRIAR OLDER FURNITURE FABRICATOR-C Work Phone: [facility] 06-30-2024 08:30-0500 Systolic blood pressure 145 mm[Hg] SHAHRIAR OLDER FURNITURE FABRICATOR-C Work Phone: [facility] 05-28-2024 12:12-0500 Body mass index (BMI) [Ratio] 34.11 kg/m2 Shahriar Older CHILLER OPERATOR.NURSE STAFF Work Phone: [facility] 05-28-2024 12:12-0500 Body weight 85.28 kg Shahriar Older CHILLER OPERATOR.NURSE STAFF Work Phone: [facility] 05-28-2024 12:12-0500 Diastolic blood pressure 78 mm[Hg] Shahriar Older CHILLER OPERATOR.NURSE STAFF Work Phone: [facility] 05-28-2024 12:12-0500 Heart rate 90 /min Shahriar Older CHILLER OPERATOR.NURSE STAFF Work Phone: [facility] 05-28-2024 12:12-0500 Respiratory rate 16 /min Shahriar Older CHILLER OPERATOR.NURSE STAFF Work Phone: [facility] 05-28-2024 12:12-0500 SaO2% (BldA) [Mass fraction] 99 % Shahriar Older CHILLER OPERATOR.NURSE STAFF Work Phone: [facility] 05-28-2024 12:12-0500 Systolic blood pressure 138 mm[Hg] Shahriar Older CHILLER OPERATOR.NURSE STAFF Work Phone: [facility] 05-14-2024 16:05-0500 Body temperature 97.7 [degF] SHAHRIAR OLDER FURNITURE FABRICATOR-C Work Phone: [facility] 05-14-2024 16:05-0500 Diastolic blood pressure 70 mm[Hg] SHAHRIAR OLDER FURNITURE FABRICATOR-C Work Phone: [facility] 05-14-2024 16:05-0500 Heart rate 75 /min SHAHRIAR OLDER FURNITURE FABRICATOR-C Work Phone: [facility] 05-14-2024 16:05-0500 Respiratory rate 18 /min SHAHRIAR OLDER FURNITURE FABRICATOR-C Work Phone: [facility] 05-14-2024 16:05-0500 SaO2% (BldA) [Mass fraction] 100 % SHAHRIAR OLDER FURNITURE FABRICATOR-C Work Phone: [facility] 05-14-2024 16:05-0500 Systolic blood pressure 129 mm[Hg] SHAHRIAR OLDER FURNITURE FABRICATOR-C Work Phone: [facility] 05-14-2024 13:44-0500 Body height 160.02 cm SHAHRIAR OLDER FURNITURE FABRICATOR-C Work Phone: [facility] 05-14-2024 13:44-0500 Body mass index (BMI) [Ratio] 33.2 kg/m2 SHAHRIAR OLDER FURNITURE FABRICATOR-C Work Phone: [facility] 05-14-2024 13:44-0500 Body weight 85 kg SHAHRIAR OLDER FURNITURE FABRICATOR-C Work Phone: [facility] 05-14-2024 09:23-0500 Body mass index (BMI) [Ratio] 34.11 kg/m2 Shahriar Older CHILLER OPERATOR.NURSE STAFF Work Phone: [facility] 05-14-2024 09:23-0500 Body weight 85.28 kg Shahriar Older CHILLER OPERATOR.NURSE STAFF Work Phone: [facility] 05-14-2024 09:23-0500 Diastolic blood pressure 58 mm[Hg] Shahriar Older CHILLER OPERATOR.NURSE STAFF Work Phone: [facility] 05-14-2024 09:23-0500 Heart rate 84 /min Shahriar Older CHILLER OPERATOR.NURSE STAFF Work Phone: [facility] 05-14-2024 09:23-0500 Respiratory rate 16 /min Shahriar Older CHILLER OPERATOR.NURSE STAFF Work Phone: [facility] 05-14-2024 09:23-0500 SaO2% (BldA) [Mass fraction] 98 % Shahriar Older CHILLER OPERATOR.NURSE STAFF Work Phone: [facility] 05-14-2024 09:23-0500 Systolic blood pressure 102 mm[Hg] Shahriar Older CHILLER OPERATOR.NURSE STAFF Work Phone: [facility] 05-11-2024 00:39-0500 Diastolic blood pressure 74 mm[Hg] SHAHRIAR OLDER FURNITURE FABRICATOR-C Work Phone: [facility] 05-11-2024 00:39-0500 Heart rate 89 /min SHAHRIAR OLDER FURNITURE FABRICATOR-C Work Phone: [facility] 05-11-2024 00:39-0500 Respiratory rate 16 /min SHAHRIAR OLDER FURNITURE FABRICATOR-C Work Phone: [facility] 05-11-2024 00:39-0500 SaO2% (BldA) [Mass fraction] 98 % SHAHRIAR OLDER FURNITURE FABRICATOR-C Work Phone: [facility] 05-11-2024 00:39-0500 Systolic blood pressure 150 mm[Hg] SHAHRIAR OLDER FURNITURE FABRICATOR-C Work Phone: [facility] 05-11-2024 00:16-0500 Body temperature 98.6 [degF] SHAHRIAR OLDER FURNITURE FABRICATOR-C Work Phone: [facility] 05-10-2024 15:55-0500 Body mass index (BMI) [Ratio] 33.4 kg/m2 SHAHRIAR OLDER FURNITURE FABRICATOR-C Work Phone: [facility] 05-10-2024 15:55-0500 Body weight 85.63 kg SHAHRIAR OLDER FURNITURE FABRICATOR-C Work Phone: [facility] 05-06-2024 14:18-0500 Body weight 86.18 kg SHAHRIAR OLDER FURNITURE FABRICATOR-C Work Phone: [facility] 04-27-2024 13:54-0500 Body temperature 98 [degF] SHAHRIAR OLDER FURNITURE FABRICATOR-C Work Phone: [facility] 04-27-2024 13:54-0500 Diastolic blood pressure 66 mm[Hg] SHAHRIAR OLDER FURNITURE FABRICATOR-C Work Phone: [facility] 04-27-2024 13:54-0500 Heart rate 69 /min SHAHRIAR OLDER FURNITURE FABRICATOR-C Work Phone: [facility] 04-27-2024 13:54-0500 Respiratory rate 18 /min SHAHRIAR OLDER FURNITURE FABRICATOR-C Work Phone: [facility] 04-27-2024 13:54-0500 SaO2% (BldA) [Mass fraction] 99 % SHAHRIAR OLDER FURNITURE FABRICATOR-C Work Phone: [facility] 04-27-2024 13:54-0500 Systolic blood pressure 124 mm[Hg] SHAHRIAR OLDER FURNITURE FABRICATOR-C Work Phone: [facility] 04-27-2024 12:03-0500 Body mass index (BMI) [Ratio] 33.7 kg/m2 SHAHRIAR OLDER FURNITURE FABRICATOR-C Work Phone: 3(699)858-962237 [place] [address] 04-27-2024 12:03-0500 Body weight 86.59 kg SHAHRIAR OLDER FURNITURE FABRICATOR-C Work Phone: 9(537)[phone] [place] [address] 04-15-2024 11:20-0500 Body mass index (BMI) [Ratio] 32.8 kg/m2 SHAHRIAR OLDER FURNITURE FABRICATOR-C Work Phone: 5(831)498-894337 [place] [address] 04-15-2024 11:20-0500 Body weight 83.91 kg SHAHRIAR OLDER FURNITURE FABRICATOR-C Work Phone: [facility] 04-15-2024 11:20-0500 Diastolic blood pressure 76 mm[Hg] SHAHRIAR OLDER FURNITURE FABRICATOR-C Work Phone: 5(848)662-413537 [place] [address] 04-15-2024 11:20-0500 Heart rate 88 /min SHAHRIAR OLDER FURNITURE FABRICATOR-C Work Phone: 7(645)039-746237 [place] [address] 04-15-2024 11:20-0500 Respiratory rate 16 /min SHAHRIAR OLDER FURNITURE FABRICATOR-C Work Phone: [facility] 04-15-2024 11:20-0500 Systolic blood pressure 119 mm[Hg] SHAHRIAR OLDER FURNITURE FABRICATOR-C Work Phone: [facility] 03-28-2024 12:56-0500 Body mass index (BMI) [Ratio] 33.75 kg/m2 Shahriar Older CHILLER OPERATOR.NURSE STAFF Work Phone: [facility] 03-28-2024 12:56-0500 Body temperature 97.81 [degF] Shahriar Older CHILLER OPERATOR.NURSE STAFF Work Phone: [facility] 03-28-2024 12:56-0500 Body weight 84.37 kg Shahriar Older CHILLER OPERATOR.NURSE STAFF Work Phone: [facility] 03-28-2024 12:56-0500 Diastolic blood pressure 80 mm[Hg] Shahriar Older CHILLER OPERATOR.NURSE STAFF Work Phone: [facility] 03-28-2024 12:56-0500 Heart rate 77 /min Shahriar Older CHILLER OPERATOR.NURSE STAFF Work Phone: [facility] 03-28-2024 12:56-0500 Respiratory rate 16 /min Shahriar Older CHILLER OPERATOR.NURSE STAFF Work Phone: [facility] 03-28-2024 12:56-0500 SaO2% (BldA) [Mass fraction] 99 % Shahriar Older CHILLER OPERATOR.NURSE STAFF Work Phone: [facility] 03-28-2024 12:56-0500 Systolic blood pressure 162 mm[Hg] Shahriar Older CHILLER OPERATOR.NURSE STAFF Work Phone: [facility] 02-14-2024 14:20-0400 Body mass index (BMI) [Ratio] 33.38 kg/m2 Shahriar Older CHILLER OPERATOR.NURSE STAFF Work Phone: [facility] 02-14-2024 14:20-0400 Body weight 83.46 kg Shahriar Older CHILLER OPERATOR.NURSE STAFF Work Phone: [facility] 02-14-2024 14:20-0400 Diastolic blood pressure 68 mm[Hg] Shahriar Older CHILLER OPERATOR.NURSE STAFF Work Phone: [facility] 02-14-2024 14:20-0400 Heart rate 88 /min Shahriar Older CHILLER OPERATOR.NURSE STAFF Work Phone: [facility] 02-14-2024 14:20-0400 Respiratory rate 16 /min Shahriar Older CHILLER OPERATOR.NURSE STAFF Work Phone: [facility] 02-14-2024 14:20-0400 SaO2% (BldA) [Mass fraction] 98 % Shahriar Older CHILLER OPERATOR.NURSE STAFF Work Phone: [facility] 02-14-2024 14:20-0400 Systolic blood pressure 112 mm[Hg] Shahriar Older CHILLER OPERATOR.NURSE STAFF Work Phone: [facility] 01-21-2024 14:25-0400 Body height 158.1 cm Chhaya Crowe MD Work Phone: [facility] 01-21-2024 14:25-0400 Body mass index (BMI) [Ratio] 34.15 kg/m2 Chhaya Crowe MD Work Phone: [facility] 01-21-2024 14:25-0400 Body weight 85.37 kg Chhaya Crowe MD Work Phone: [facility] 01-21-2024 14:25-0400 Diastolic blood pressure 76 mm[Hg] Chhaya Crowe MD Work Phone: [facility] 01-21-2024 14:25-0400 Systolic blood pressure 120 mm[Hg] Chhaya Crowe MD Work Phone: [facility] 01-17-2024 13:20-0400 Body mass index (BMI) [Ratio] 32.79 kg/m2 Shahriar Older CHILLER OPERATOR.NURSE STAFF Work Phone: [facility] 01-17-2024 13:20-0400 Body weight 85.3 kg Shahriar Older CHILLER OPERATOR.NURSE STAFF Work Phone: [facility] 01-17-2024 13:20-0400 Diastolic blood pressure 80 mm[Hg] Shahriar Older CHILLER OPERATOR.NURSE STAFF Work Phone: [facility] 01-17-2024 13:20-0400 Heart rate 80 /min Shahriar Older CHILLER OPERATOR.NURSE STAFF Work Phone: [facility] 01-17-2024 13:20-0400 Respiratory rate 16 /min Shahriar Older CHILLER OPERATOR.NURSE STAFF Work Phone: [facility] 01-17-2024 13:20-0400 SaO2% (BldA) [Mass fraction] 98 % Shahriar Older CHILLER OPERATOR.NURSE STAFF Work Phone: [facility] 01-17-2024 13:20-0400 Systolic blood pressure 132 mm[Hg] Shahriar Older CHILLER OPERATOR.NURSE STAFF Work Phone: [facility] 12-18-2023 07:58-0400 Body mass index (BMI) [Ratio] 33.13 kg/m2 Shahriar Older CHILLER OPERATOR.NURSE STAFF Work Phone: [facility] 12-18-2023 07:58-0400 Body weight 86.18 kg Shahriar Older CHILLER OPERATOR.NURSE STAFF Work Phone: [facility] 12-18-2023 07:58-0400 Diastolic blood pressure 80 mm[Hg] Shahriar Older CHILLER OPERATOR.NURSE STAFF Work Phone: [facility] 12-18-2023 07:58-0400 Heart rate 80 /min Shahriar Older CHILLER OPERATOR.NURSE STAFF Work Phone: [facility] 12-18-2023 07:58-0400 Respiratory rate 16 /min Shahriar Older CHILLER OPERATOR.NURSE STAFF Work Phone: [facility] 12-18-2023 07:58-0400 SaO2% (BldA) [Mass fraction] 98 % Shahriar Older CHILLER OPERATOR.NURSE STAFF Work Phone: [facility] 12-18-2023 07:58-0400 Systolic blood pressure 138 mm[Hg] Shahriar Older CHILLER OPERATOR.NURSE STAFF Work Phone: [facility] 09-27-2023 14:30-0400 Diastolic blood pressure 79 mm[Hg] Ya Cleveland MD Work Phone: [facility] 09-27-2023 14:30-0400 Heart rate 85 /min Ya Cleveland MD Work Phone: [facility] 09-27-2023 14:30-0400 Respiratory rate 31 /min Ya Cleveland MD Work Phone: [facility] 09-27-2023 14:30-0400 SaO2% (BldA) [Mass fraction] 96 % Ya Cleveland MD Work Phone: [facility] 09-27-2023 14:30-0400 Systolic blood pressure 153 mm[Hg] Ya Cleveland MD Work Phone: 9(829)038-249347 [place] [address] 09-27-2023 11:00-0400 Body temperature 98.29 [degF] Ya Cleveland MD Work Phone: [facility] 09-27-2023 06:51-0400 Body height 160 cm Ya Cleveland MD Work Phone: [facility] 09-27-2023 06:51-0400 Body mass index (BMI) [Ratio] 32.96 kg/m2 Ya Cleveland MD Work Phone: 9(161)747-687147 [place] [address] 09-27-2023 06:51-0400 Body weight 84.4 kg Ya Cleveland MD Work Phone: 1(640)773-382956 [address] 09-26-2023 11:44-0400 Body height 160 cm Ya Cleveland MD Work Phone: 4(440)874-725056 [address] 09-26-2023 11:44-0400 Diastolic blood pressure 65 mm[Hg] Ya Cleveland MD Work Phone: 2(209)191-920356 [address] 09-26-2023 11:44-0400 Heart rate 74 /min Ya Cleveland MD Work Phone: 5(194)479-093556 [address] 09-26-2023 11:44-0400 Systolic blood pressure 120 mm[Hg] Ya Cleveland MD Work Phone: 7(664)494-195256 [address] 08-16-2023 13:14-0400 Body height 160.[address] Opal Mathews Work Phone: [facility] 08-16-2023 13:14-0400 Body mass index (BMI) [Ratio] 32.2 kg/m2 Dr. Opal Mathews Work Phone: [facility] 08-16-2023 13:14-0400 Body weight 82.[address] Opal Mathews Work Phone: [facility] 08-16-2023 13:14-0400 Diastolic blood pressure 82 mm[Hg] Dr. Opal Mathews Work Phone: [facility] 08-16-2023 13:14-0400 Heart rate 87 /min Dr. Opal Mathews Work Phone: [facility] 08-16-2023 13:14-0400 Respiratory rate 14 /min Dr. Opal Mathews Work Phone: [facility] 08-16-2023 13:14-0400 SaO2% (BldA) [Mass fraction] 98 % Dr. Opal Mathews Work Phone: [facility] 08-16-2023 13:14-0400 Systolic blood pressure 169 mm[Hg] Dr. Opal Mathews Work Phone: [facility] 08-09-2023 07:55-0400 Diastolic blood pressure 86 mm[Hg] Shahriar Older CHILLER OPERATOR.NURSE STAFF Work Phone: [facility] 08-09-2023 07:55-0400 Systolic blood pressure 142 mm[Hg] Shahriar Older CHILLER OPERATOR.NURSE STAFF Work Phone: [facility] 08-09-2023 07:31-0400 Body weight 80.74 kg Shahriar Older CHILLER OPERATOR.NURSE STAFF Work Phone: [facility] 08-09-2023 07:31-0400 Heart rate 80 /min Shahriar Older CHILLER OPERATOR.NURSE STAFF Work Phone: [facility] 08-09-2023 07:31-0400 Respiratory rate 16 /min Shahriar Older CHILLER OPERATOR.NURSE STAFF Work Phone: [facility] 08-09-2023 07:31-0400 SaO2% (BldA) [Mass fraction] 98 % Shahriar Older CHILLER OPERATOR.NURSE STAFF Work Phone: [facility] 07-05-2023 08:10-0500 Body weight 83.01 kg Shahriar Older CHILLER OPERATOR.NURSE STAFF Work Phone: [facility] 07-05-2023 08:10-0500 Diastolic blood pressure 88 mm[Hg] Shahriar Older CHILLER OPERATOR.NURSE STAFF Work Phone: [facility] 07-05-2023 08:10-0500 Heart rate 84 /min Shahriar Older CHILLER OPERATOR.NURSE STAFF Work Phone: [facility] 07-05-2023 08:10-0500 Respiratory rate 16 /min Shahriar Older CHILLER OPERATOR.NURSE STAFF Work Phone: [facility] 07-05-2023 08:10-0500 SaO2% (BldA) [Mass fraction] 99 % Shahriar Older CHILLER OPERATOR.NURSE STAFF Work Phone: [facility] 07-05-2023 08:10-0500 Systolic blood pressure 160 mm[Hg] Shahriar Older CHILLER OPERATOR.NURSE STAFF Work Phone: [facility] 06-21-2023 18:34-0500 Body temperature 98.5 [degF] Dr. Opal Mathews Work Phone: [facility] 06-21-2023 18:34-0500 Diastolic blood pressure 75 mm[Hg] Dr. Opal Mathews Work Phone: [facility] 06-21-2023 18:34-0500 Heart rate 78 /min Dr. Opal Mathews Work Phone: [facility] 06-21-2023 18:34-0500 Respiratory rate 16 /min Dr. Opal Mathews Work Phone: [facility] 06-21-2023 18:34-0500 SaO2% (BldA) [Mass fraction] 98 % Dr. Opal Mathews Work Phone: [facility] 06-21-2023 18:34-0500 Systolic blood pressure 146 mm[Hg] Dr. Opal Mathews Work Phone: [facility] 06-21-2023 15:04-0500 Body height 160.[address] Opal Mathews Work Phone: [facility] 06-21-2023 15:04-0500 Body mass index (BMI) [Ratio] 32.8 kg/m2 Dr. Opal Mathews Work Phone: [facility] 06-21-2023 15:04-0500 Body weight 84.[address] Opal Mathews Work Phone: [facility] 06-21-2023 14:44-0500 Body temperature 99.39 [degF] Rubi Athy PA-C Work Phone: [facility] 06-21-2023 14:44-0500 Body weight 83.92 kg Rubi Athy PA-C Work Phone: [facility] 06-21-2023 14:44-0500 Diastolic blood pressure 78 mm[Hg] Rubi Athy PA-C Work Phone: [facility] 06-21-2023 14:44-0500 Heart rate 74 /min Rubi Athy PA-C Work Phone: [facility] 06-21-2023 14:44-0500 Respiratory rate 16 /min Rubi Athy PA-C Work Phone: [facility] 06-21-2023 14:44-0500 SaO2% (BldA) [Mass fraction] 99 % Rubi Athy PA-C Work Phone: [facility] 06-21-2023 14:44-0500 Systolic blood pressure 138 mm[Hg] Rubi Athy PA-C Work Phone: [facility] 06-05-2023 09:42-0500 Body height 160.[address] Opal Mathews Work Phone: [facility] 06-05-2023 09:42-0500 Body mass index (BMI) [Ratio] 32.8 kg/m2 Dr. Opal Mathews Work Phone: 7(097)734-549698 [place] [address] 06-05-2023 09:42-0500 Body weight 83.[address] Opal Mathews Work Phone: 3(092)009-678298 [place] [address] 06-05-2023 09:42-0500 Diastolic blood pressure 85 mm[Hg] Dr. Opal Mathews Work Phone: 7(614)347-833198 [place] [address] 06-05-2023 09:42-0500 Heart rate 77 /min Dr. Opal Mathews Work Phone: 5(357)885-488498 [place] [address] 06-05-2023 09:42-0500 Respiratory rate 18 /min Dr. Opal Mathews Work Phone: 4(687)838-510398 [place] [address] 06-05-2023 09:42-0500 Systolic blood pressure 153 mm[Hg] Dr. Opal Mathews Work Phone: 3(225)772-967198 [place] [address] 04-29-2023 05:42-0500 Diastolic blood pressure 84 mm[Hg] Dr. Opal Mathews Work Phone: 9(853)540-953398 [place] [address] 04-29-2023 05:42-0500 Heart rate 77 /min Dr. Opal Mathews Work Phone: 8(787)815-720398 [place] [address] 04-29-2023 05:42-0500 Respiratory rate 18 /min Dr. Opal Mathews Work Phone: 1(670)486-023998 [place] [address] 04-29-2023 05:42-0500 SaO2% (BldA) [Mass fraction] 96 % Dr. Opal Mathews Work Phone: 5(948)804-854298 [place] [address] 04-29-2023 05:42-0500 Systolic blood pressure 168 mm[Hg] Dr. Opal Mathews Work Phone: 4(658)738-614398 [place] [address] 04-28-2023 23:46-0500 Body height 160.[address] Opal Mathews Work Phone: 3(117)416-268098 [place] [address] 04-28-2023 23:46-0500 Body mass index (BMI) [Ratio] 32.6 kg/m2 Dr. Opal Mathews Work Phone: 7(775)009-860298 [place] [address] 04-28-2023 23:46-0500 Body temperature 98 [degF] Dr. Opal Mathews Work Phone: [facility] 04-28-2023 23:46-0500 Body weight 83.[address] Opal Mathews Work Phone: [facility] 04-18-2023 11:48-0500 Body weight 84.[address] Opal Mathews Work Phone: [facility] 04-16-2023 15:33-0500 Body temperature 97.9 [degF] Rubi Athy PA-C Work Phone: [facility] 04-16-2023 15:33-0500 Body weight 84.46 kg Rubi Athy PA-C Work Phone: [facility] 04-16-2023 15:33-0500 Diastolic blood pressure 83 mm[Hg] Rubi Athy PA-C Work Phone: [facility] 04-16-2023 15:33-0500 Heart rate 77 /min Rubi Athy PA-C Work Phone: [facility] 04-16-2023 15:33-0500 Respiratory rate 18 /min Rubi Athy PA-C Work Phone: [facility] 04-16-2023 15:33-0500 SaO2% (BldA) [Mass fraction] 98 % Rubi Athy PA-C Work Phone: [facility] 04-16-2023 15:33-0500 Systolic blood pressure 151 mm[Hg] Rubi Athy PA-C Work Phone: [facility] 03-29-2023 23:49-0500 Diastolic blood pressure 71 mm[Hg] Dr. Opal Mathews Work Phone: [facility] 03-29-2023 23:49-0500 Heart rate 78 /min Dr. Opal Mathews Work Phone: [facility] 03-29-2023 23:49-0500 Respiratory rate 20 /min Dr. Opal Mathews Work Phone: [facility] 03-29-2023 23:49-0500 SaO2% (BldA) [Mass fraction] 98 % Dr. Opal Mathews Work Phone: [facility] 03-29-2023 23:49-0500 Systolic blood pressure 131 mm[Hg] Dr. Opal Mathews Work Phone: 3(941)637-073098 [place] [address] 03-29-2023 22:14-0500 Body height 160.[address] Opal Mathews Work Phone: 2(843)208-172998 [place] [address] 03-29-2023 22:14-0500 Body mass index (BMI) [Ratio] 33.1 kg/m2 Dr. Opal Mathews Work Phone: 2(893)638-798998 [place] [address] 03-29-2023 22:14-0500 Body temperature 97.9 [degF] Dr. Opal Mathews Work Phone: 7(179)506-868937 [place] [address] 03-29-2023 22:14-0500 Body weight 84.[address] Opal Mathews Work Phone: 0(902)080-621537 [place] [address] 03-28-2023 15:50-0500 Diastolic blood pressure 70 mm[Hg] Shahriar Older CHILLER OPERATOR.NURSE STAFF Work Phone: [facility] 03-28-2023 15:50-0500 Systolic blood pressure 130 mm[Hg] Shahriar Older CHILLER OPERATOR.NURSE STAFF Work Phone: [facility] 03-28-2023 15:35-0500 Body weight 84.82 kg Shahriar Older CHILLER OPERATOR.NURSE STAFF Work Phone: [facility] 03-28-2023 15:35-0500 Heart rate 74 /min Shahriar Older CHILLER OPERATOR.NURSE STAFF Work Phone: [facility] 03-28-2023 15:35-0500 Respiratory rate 16 /min Shahriar Older CHILLER OPERATOR.NURSE STAFF Work Phone: [facility] 03-28-2023 15:35-0500 SaO2% (BldA) [Mass fraction] 99 % Shahriar Older CHILLER OPERATOR.NURSE STAFF Work Phone: [facility] 03-21-2023 13:05-0500 Body mass index (BMI) [Ratio] 32.8 kg/m2 Dr. Opal Mathews Work Phone: [facility] 03-21-2023 13:05-0500 Body weight 83.[address] Opal Mathews Work Phone: 2(414)079-756898 [place] [address] 03-21-2023 13:05-0500 Diastolic blood pressure 75 mm[Hg] Dr. Opal Mathews Work Phone: 2(685)643-536298 [place] [address] 03-21-2023 13:05-0500 Heart rate 76 /min Dr. Opal Mathews Work Phone: 5(983)689-401598 [place] [address] 03-21-2023 13:05-0500 Respiratory rate 18 /min Dr. Opal Mathews Work Phone: 3(255)561-786398 [place] [address] 03-21-2023 13:05-0500 Systolic blood pressure 126 mm[Hg] Dr. Opal Mathews Work Phone: 3(952)318-404298 [place] [address] 03-21-2023 08:16-0500 Body weight 82.[address] Opal Mathews Work Phone: 8(941)152-887498 [place] [address] 03-12-2023 13:06-0500 Body height 161.3 cm Ivett Denbow PA-C Work Phone: [facility] 03-12-2023 13:06-0500 Body temperature 98.01 [degF] Ivett Denbow PA-C Work Phone: [facility] 03-12-2023 13:06-0500 Body weight 83.01 kg Ivett Denbow PA-C Work Phone: [facility] 03-12-2023 13:06-0500 Diastolic blood pressure 70 mm[Hg] Ivett Denbow PA-C Work Phone: [facility] 03-12-2023 13:06-0500 Heart rate 78 /min Ivett Denbow PA-C Work Phone: [facility] 03-12-2023 13:06-0500 Respiratory rate 12 /min Ivett Sahabow PA-C Work Phone: [facility] 03-12-2023 13:06-0500 SaO2% (BldA) [Mass fraction] 99 % Ivett Sahabow PA-C Work Phone: [facility] 03-12-2023 13:06-0500 Systolic blood pressure 138 mm[Hg] Ivett Sahabow PA-C Work Phone: [facility] 02-28-2023 10:44-0400 Body weight 83.92 kg Shahriar Older CHILLER OPERATOR.NURSE STAFF Work Phone: [facility] 02-28-2023 10:44-0400 Diastolic blood pressure 82 mm[Hg] Shahriar Older CHILLER OPERATOR.NURSE STAFF Work Phone: [facility] 02-28-2023 10:44-0400 Heart rate 80 /min Shahriar Older CHILLER OPERATOR.NURSE STAFF Work Phone: [facility] 02-28-2023 10:44-0400 Respiratory rate 16 /min Shahriar Older CHILLER OPERATOR.NURSE STAFF Work Phone: [facility] 02-28-2023 10:44-0400 SaO2% (BldA) [Mass fraction] 99 % Shahriar Older CHILLER OPERATOR.NURSE STAFF Work Phone: [facility] 02-28-2023 10:44-0400 Systolic blood pressure 142 mm[Hg] Shahriar Older CHILLER OPERATOR.NURSE STAFF Work Phone: [facility] 02-27-2023 19:00-0400 Diastolic blood pressure 84 mm[Hg] Dr. Opal Mathews Work Phone: [facility] 02-27-2023 19:00-0400 Heart rate 82 /min Dr. Opal Mathews Work Phone: [facility] 02-27-2023 19:00-0400 Respiratory rate 13 /min Dr. Opal Mathews Work Phone: [facility] 02-27-2023 19:00-0400 SaO2% (BldA) [Mass fraction] 96 % Dr. Opal Mathews Work Phone: 5(532)519-091698 [place] [address] 02-27-2023 19:00-0400 Systolic blood pressure 122 mm[Hg] Dr. Opal Mathews Work Phone: 8(866)435-361998 [place] [address] 02-27-2023 16:14-0400 Body height 160.[address] Opal Mathews Work Phone: 6(226)286-556698 [place] [address] 02-27-2023 16:14-0400 Body mass index (BMI) [Ratio] 33.3 kg/m2 Dr. Opal Mathews Work Phone: 1(567)735-310598 [place] [address] 02-27-2023 16:14-0400 Body temperature 97 [degF] Dr. Opal Mathews Work Phone: 1(091)300-032198 [place] [address] 02-27-2023 16:14-0400 Body weight 85.[address] Opal Mathews Work Phone: 4(953)332-266198 [place] [address] 02-21-2023 12:59-0400 Body mass index (BMI) [Ratio] 32.9 kg/m2 Dr. Opal Mathews Work Phone: 3(400)961-378598 [place] [address] 02-21-2023 12:59-0400 Body weight 84.[address] Opal Mathews Work Phone: 8(885)786-434598 [place] [address] 02-21-2023 12:59-0400 Diastolic blood pressure 79 mm[Hg] Dr. Opal Mathews Work Phone: 1(095)887-936398 [place] [address] 02-21-2023 12:59-0400 Heart rate 88 /min Dr. Opal Mathews Work Phone: 9(514)996-134798 [place] [address] 02-21-2023 12:59-0400 Respiratory rate 16 /min Dr. Opal Mathews Work Phone: 3(053)583-488698 [place] [address] 02-21-2023 12:59-0400 Systolic blood pressure 126 mm[Hg] Dr. Opal Mathews Work Phone: 8(535)383-353498 [place] [address] 02-16-2023 08:41-0400 Body weight 85.[address] Opal Mathews Work Phone: 6(090)932-868337 [place] [address] 01-24-2023 10:19-0400 Body height 160.[address] Opal Mathews Work Phone: 1(205)412-458198 [place] [address] 01-24-2023 10:19-0400 Body mass index (BMI) [Ratio] 32.9 kg/m2 Dr. Opal Mathews Work Phone: 4(267)751-450098 [place] [address] 01-24-2023 10:19-0400 Body weight 84.[address] Opal Mathews Work Phone: 1(486)634-622798 [place] [address] 01-24-2023 10:19-0400 Diastolic blood pressure 80 mm[Hg] Dr. Opal Mathews Work Phone: 5(200)953-991998 [place] [address] 01-24-2023 10:19-0400 Heart rate 86 /min Dr. Opal Mathews Work Phone: 8(172)809-919598 [place] [address] 01-24-2023 10:19-0400 Respiratory rate 20 /min Dr. Opal Mathews Work Phone: 7(401)175-822398 [place] [address] 01-24-2023 10:19-0400 Systolic blood pressure 135 mm[Hg] Dr. Opal Mathews Work Phone: 0(204)111-827298 [place] [address] 01-19-2023 09:12-0400 Body mass index (BMI) [Ratio] 33.6 kg/m2 Dr. Opal Mathews Work Phone: 0(087)364-248098 [place] [address] 01-19-2023 08:39-0400 Diastolic blood pressure 80 mm[Hg] Dr. Opal Mathews Work Phone: 2(680)756-193098 [place] [address] 01-19-2023 08:39-0400 Heart rate 87 /min Dr. Opal Mathews Work Phone: 7(065)495-401098 [place] [address] 01-19-2023 08:39-0400 SaO2% (BldA) [Mass fraction] 98 % Dr. Opal Mathews Work Phone: 4(969)577-343298 [place] [address] 01-19-2023 08:39-0400 Systolic blood pressure 132 mm[Hg] Dr. Opal Mathews Work Phone: 4(713)915-384798 [place] [address] 01-19-2023 08:15-0400 Body height 160.[address] Opal Mathews Work Phone: 1(192)215-740398 [place] [address] 01-19-2023 08:15-0400 Body weight 86.[address] Opal Mathews Work Phone: 5(417)021-544598 [place] [address] 12-31-2022 18:15-0400 Body temperature 98.6 [degF] Dr. Opal Mathews Work Phone: 8(194)467-302698 [place] [address] 12-31-2022 18:09-0400 Diastolic blood pressure 77 mm[Hg] Dr. Opal Mathews Work Phone: 3(241)272-264098 [place] [address] 12-31-2022 18:09-0400 Heart rate 79 /min Dr. Opal Mathews Work Phone: 8(590)495-636498 [place] [address] 12-31-2022 18:09-0400 Respiratory rate 18 /min Dr. Opal Mathews Work Phone: 9(709)084-132398 [place] [address] 12-31-2022 18:09-0400 SaO2% (BldA) [Mass fraction] 97 % Dr. Opal Mathews Work Phone: 2(720)845-538898 [place] [address] 12-31-2022 18:09-0400 Systolic blood pressure 141 mm[Hg] Dr. Opal Mathews Work Phone: 2(060)908-493198 [place] [address] 12-31-2022 13:46-0400 Body mass index (BMI) [Ratio] 33 kg/m2 Dr. Opal Mathews Work Phone: 0(734)041-287998 [place] [address] 12-31-2022 13:46-0400 Body weight 84.[address] Opal Mathews Work Phone: 3(673)302-960798 [place] [address] 12-28-2022 11:00-0400 Body temperature 98.1 [degF] Dr. Opal Mathews Work Phone: 7(807)626-934998 [place] [address] 12-28-2022 11:00-0400 Diastolic blood pressure 70 mm[Hg] Dr. Opal Mathews Work Phone: 4(798)185-997337 [place] [address] 12-28-2022 11:00-0400 Heart rate 72 /min Dr. Opal Mathews Work Phone: 1(321)821-470598 [place] [address] 12-28-2022 11:00-0400 Systolic blood pressure 130 mm[Hg] Dr. Opal Mathews Work Phone: 2(527)500-637898 [place] [address] 12-28-2022 08:11-0400 Body temperature 98 [degF] Dr. Opal Mathews Work Phone: 4(068)996-591498 [place] [address] 12-28-2022 08:11-0400 Diastolic blood pressure 76 mm[Hg] Dr. Opal Mathews Work Phone: 8(261)533-900698 [place] [address] 12-28-2022 08:11-0400 Heart rate 75 /min Dr. Opal Mathews Work Phone: 0(349)017-163198 [place] [address] 12-28-2022 08:11-0400 Respiratory rate 14 /min Dr. Opal Mathews Work Phone: 3(692)434-185198 [place] [address] 12-28-2022 08:11-0400 SaO2% (BldA) [Mass fraction] 99 % Dr. Opal Mathews Work Phone: 2(848)320-550198 [place] [address] 12-28-2022 08:11-0400 Systolic blood pressure 148 mm[Hg] Dr. Opal Mathews Work Phone: 4(528)411-097998 [place] [address] 12-28-2022 05:41-0400 Body mass index (BMI) [Ratio] 33.9 kg/m2 Dr. Opal Mathews Work Phone: 3(855)294-124798 [place] [address] 12-28-2022 05:41-0400 Body weight 86.[address] Opal Mathews Work Phone: 9(441)245-256198 [place] [address] 12-27-2022 14:50-0400 Body height 160.[address] Opal Mathews Work Phone: 2(797)013-105298 [place] [address] 12-20-2022 17:26-0400 Body temperature 98.71 [degF] Shahriar Brown APRN.CNP Work Phone: 8(049)801-400823 [place] [address] 12-20-2022 17:26-0400 Diastolic blood pressure 74 mm[Hg] Shahriar Older CHILLER OPERATOR.NURSE STAFF Work Phone: [facility] 12-20-2022 17:26-0400 Heart rate 84 /min Shahriar Older CHILLER OPERATOR.NURSE STAFF Work Phone: [facility] 12-20-2022 17:26-0400 Respiratory rate 16 /min Shahriar Older CHILLER OPERATOR.NURSE STAFF Work Phone: [facility] 12-20-2022 17:26-0400 SaO2% (BldA) [Mass fraction] 98 % Shahriar Older CHILLER OPERATOR.NURSE STAFF Work Phone: [facility] 12-20-2022 17:26-0400 Systolic blood pressure 132 mm[Hg] Shahriar Older CHILLER OPERATOR.NURSE STAFF Work Phone: [facility] 12-14-2022 10:36-0400 Body temperature 98.2 [degF] Shahriar Older CHILLER OPERATOR.NURSE STAFF Work Phone: [facility] 12-14-2022 10:36-0400 Body weight 84.82 kg Shahriar Older CHILLER OPERATOR.NURSE STAFF Work Phone: [facility] 12-14-2022 10:36-0400 Diastolic blood pressure 82 mm[Hg] Shahriar Older CHILLER OPERATOR.NURSE STAFF Work Phone: [facility] 12-14-2022 10:36-0400 Heart rate 72 /min Shahriar Older CHILLER OPERATOR.NURSE STAFF Work Phone: [facility] 12-14-2022 10:36-0400 Respiratory rate 16 /min Shahriar Older CHILLER OPERATOR.NURSE STAFF Work Phone: [facility] 12-14-2022 10:36-0400 SaO2% (BldA) [Mass fraction] 99 % Shahriar Older CHILLER OPERATOR.NURSE STAFF Work Phone: [facility] 12-14-2022 10:36-0400 Systolic blood pressure 144 mm[Hg] Shahriar Older CHILLER OPERATOR.NURSE STAFF Work Phone: [facility] 12-09-2022 14:55-0400 Body temperature 99 [degF] [facility] CHILLER OPERATOR.NURSE STAFF Work Phone: [facility] 12-09-2022 14:55-0400 Body weight 86.64 kg [facility] CHILLER OPERATOR.NURSE STAFF Work Phone: [facility] 12-09-2022 14:55-0400 Diastolic blood pressure 80 mm[Hg] [facility] CHILLER OPERATOR.NURSE STAFF Work Phone: [facility] 12-09-2022 14:55-0400 Heart rate 82 /min [facility] CHILLER OPERATOR.NURSE STAFF Work Phone: [facility] 12-09-2022 14:55-0400 Respiratory rate 16 /min [facility] CHILLER OPERATOR.NURSE STAFF Work Phone: [facility] 12-09-2022 14:55-0400 SaO2% (BldA) [Mass fraction] 98 % [facility] CHILLER OPERATOR.NURSE STAFF Work Phone: [facility] 12-09-2022 14:55-0400 Systolic blood pressure 134 mm[Hg] [facility] CHILLER OPERATOR.NURSE STAFF Work Phone: [facility] 12-03-2022 11:12-0400 Body height 160.[address] Opal Mathews Work Phone: [facility] 12-03-2022 11:12-0400 Body mass index (BMI) [Ratio] 33.3 kg/m2 Dr. Opal Mathews Work Phone: [facility] 12-03-2022 11:12-0400 Body temperature 97.7 [degF] Dr. Opal Mathews Work Phone: [facility] 12-03-2022 11:12-0400 Body weight 85.[address] Opal Mathews Work Phone: [facility] 12-03-2022 11:12-0400 Diastolic blood pressure 81 mm[Hg] Dr. Opal Mathews Work Phone: [facility] 12-03-2022 11:12-0400 Heart rate 86 /min Dr. Opal Mathews Work Phone: [facility] 12-03-2022 11:12-0400 Respiratory rate 18 /min Dr. Opal Mathews Work Phone: [facility] 12-03-2022 11:12-0400 SaO2% (BldA) [Mass fraction] 99 % Dr. Opal Mathews Work Phone: [facility] 12-03-2022 11:12-0400 Systolic blood pressure 125 mm[Hg] Dr. Opal Mathews Work Phone: [facility] 12-03-2022 10:50-0400 Body temperature 98.4 [degF] Rubi Athy PA-C Work Phone: [facility] 12-03-2022 10:50-0400 Body weight 85.28 kg Rubi Athy PA-C Work Phone: [facility] 12-03-2022 10:50-0400 Diastolic blood pressure 84 mm[Hg] Rubi Athy PA-C Work Phone: [facility] 12-03-2022 10:50-0400 Heart rate 79 /min Rubi Athy PA-C Work Phone: [facility] 12-03-2022 10:50-0400 Respiratory rate 18 /min Rubi Athy PA-C Work Phone: [facility] 12-03-2022 10:50-0400 SaO2% (BldA) [Mass fraction] 98 % Rubi Athy PA-C Work Phone: [facility] 12-03-2022 10:50-0400 Systolic blood pressure 142 mm[Hg] Rubi Athy PA-C Work Phone: [facility] 11-27-2022 21:04-0400 Respiratory rate 16 /min Dr. Opal Mathews Work Phone: [facility] 11-27-2022 15:55-0400 Body mass index (BMI) [Ratio] 33.5 kg/m2 Dr. Opal Mathews Work Phone: 0(992)145-461398 [place] [address] 11-27-2022 15:55-0400 Body temperature 97.8 [degF] Dr. Opal Mathews Work Phone: 6(266)105-268298 [place] [address] 11-27-2022 15:55-0400 Body weight 85.[address] Opal Mathews Work Phone: 0(162)908-983098 [place] [address] 11-27-2022 15:55-0400 Diastolic blood pressure 86 mm[Hg] Dr. Opal Mathews Work Phone: 3(149)190-150898 [place] [address] 11-27-2022 15:55-0400 Heart rate 81 /min Dr. Opal Mathews Work Phone: 9(998)217-483698 [place] [address] 11-27-2022 15:55-0400 SaO2% (BldA) [Mass fraction] 100 % Dr. Opal Mathews Work Phone: 2(507)064-033098 [place] [address] 11-27-2022 15:55-0400 Systolic blood pressure 154 mm[Hg] Dr. Opal Mathews Work Phone: 6(889)048-737898 [place] [address] 11-16-2022 14:55-0400 Body mass index (BMI) [Ratio] 33.6 kg/m2 Dr. Opal Mathews Work Phone: 2(484)389-019298 [place] [address] 11-16-2022 14:55-0400 Body weight 86.[address] Opal Mathews Work Phone: 8(826)365-902498 [place] [address] 11-16-2022 14:55-0400 Diastolic blood pressure 85 mm[Hg] Dr. Opal Mathews Work Phone: 8(342)006-150398 [place] [address] 11-16-2022 14:55-0400 Heart rate 90 /min Dr. Opal Mathews Work Phone: 2(663)007-937298 [place] [address] 11-16-2022 14:55-0400 Respiratory rate 16 /min Dr. Opal Mathews Work Phone: 2(961)666-632998 [place] [address] 11-16-2022 14:55-0400 Systolic blood pressure 136 mm[Hg] Dr. Opal Mathews Work Phone: [facility] 10-12-2022 10:09-0400 Body height 161.3 cm Chhaya Crowe MD Work Phone: [facility] 10-12-2022 10:09-0400 Body weight 87.77 kg Chhaya Crowe MD Work Phone: [facility] 10-12-2022 10:09-0400 Diastolic blood pressure 72 mm[Hg] Chhaya Crowe MD Work Phone: [facility] 10-12-2022 10:09-0400 Systolic blood pressure 128 mm[Hg] Chhaya Crowe MD Work Phone: 2(304)086-394066 [place] [address] 10-12-2022 08:31-0400 Diastolic blood pressure 71 mm[Hg] Dr. Opal Mathews Work Phone: 9(659)468-246898 [place] [address] 10-12-2022 08:31-0400 Systolic blood pressure 141 mm[Hg] Dr. Opal Mathews Work Phone: 9(237)039-900137 [place] [address] 10-12-2022 08:19-0400 Heart rate 75 /min Dr. Opal Mathews Work Phone: 8(936)314-579098 [place] [address] 10-12-2022 07:59-0400 Body mass index (BMI) [Ratio] 34.3 kg/m2 Dr. Opal Mathews Work Phone: 3(196)450-143898 [place] [address] 10-12-2022 07:59-0400 Body temperature 97.6 [degF] Dr. Opal Mathews Work Phone: 4(405)516-654837 [place] [address] 10-12-2022 07:59-0400 Body weight 87.[address] Opal Mathews Work Phone: 5(969)710-257798 [place] [address] 10-12-2022 07:59-0400 Respiratory rate 16 /min Dr. Opal Mathews Work Phone: 9(555)472-984198 [place] [address] 10-12-2022 07:59-0400 SaO2% (BldA) [Mass fraction] 100 % Dr. Opal Mathews Work Phone: 1(057)416-057337 [place] [address] 09-14-2022 09:22-0400 Diastolic blood pressure 82 mm[Hg] Shahriar Older CHILLER OPERATOR.NURSE STAFF Work Phone: [facility] 09-14-2022 09:22-0400 Systolic blood pressure 138 mm[Hg] Shahriar Older CHILLER OPERATOR.NURSE STAFF Work Phone: [facility] 09-14-2022 08:55-0400 Body weight 86.64 kg Shahriar Older CHILLER OPERATOR.NURSE STAFF Work Phone: [facility] 09-14-2022 08:55-0400 Heart rate 80 /min Shahriar Older CHILLER OPERATOR.NURSE STAFF Work Phone: [facility] 09-14-2022 08:55-0400 Respiratory rate 16 /min Shahriar Older CHILLER OPERATOR.NURSE STAFF Work Phone: [facility] 09-04-2022 13:28-0400 Body temperature 97.7 [degF] Shahriar Older CHILLER OPERATOR.NURSE STAFF Work Phone: [facility] 09-04-2022 13:28-0400 Body weight 88 kg Shahriar Older CHILLER OPERATOR.NURSE STAFF Work Phone: [facility] 09-04-2022 13:28-0400 Diastolic blood pressure 90 mm[Hg] Shahriar Older CHILLER OPERATOR.NURSE STAFF Work Phone: [facility] 09-04-2022 13:28-0400 Heart rate 86 /min Shahriar Older CHILLER OPERATOR.NURSE STAFF Work Phone: [facility] 09-04-2022 13:28-0400 Respiratory rate 16 /min Shahriar Older CHILLER OPERATOR.NURSE STAFF Work Phone: [facility] 09-04-2022 13:28-0400 SaO2% (BldA) [Mass fraction] 98 % Shahriar Older CHILLER OPERATOR.NURSE STAFF Work Phone: [facility] 09-04-2022 13:28-0400 Systolic blood pressure 144 mm[Hg] Shahriar Older CHILLER OPERATOR.NURSE STAFF Work Phone: [facility] 08-17-2022 08:34-0400 Body temperature 98.49 [degF] Shahriar Older CHILLER OPERATOR.NURSE STAFF Work Phone: [facility] 08-17-2022 08:34-0400 Body weight 88 kg Shahriar Older CHILLER OPERATOR.NURSE STAFF Work Phone: [facility] 08-17-2022 08:34-0400 Diastolic blood pressure 90 mm[Hg] Shahriar Older CHILLER OPERATOR.NURSE STAFF Work Phone: [facility] 08-17-2022 08:34-0400 Heart rate 68 /min Shahriar Older CHILLER OPERATOR.NURSE STAFF Work Phone: [facility] 08-17-2022 08:34-0400 Respiratory rate 16 /min Shahriar Older CHILLER OPERATOR.NURSE STAFF Work Phone: [facility] 08-17-2022 08:34-0400 SaO2% (BldA) [Mass fraction] 98 % Older CHILLER OPERATOR.NURSE STAFF Work Phone: [facility] 08-17-2022 08:34-0400 Systolic blood pressure 152 mm[Hg] Shahriar Older CHILLER OPERATOR.NURSE STAFF Work Phone: [facility] 08-08-2022 13:45-0400 Body height 160.[address] Opal Mathews Work Phone: [facility] 08-08-2022 13:45-0400 Body mass index (BMI) [Ratio] 33.8 kg/m2 Dr. Opal Mathews Work Phone: [facility] 08-08-2022 13:45-0400 Body weight 86.[address] Opal Mathews Work Phone: [facility] 08-08-2022 13:45-0400 Diastolic blood pressure 85 mm[Hg] Dr. Opal Mathews Work Phone: [facility] 08-08-2022 13:45-0400 Heart rate 81 /min Dr. Opal Mathews Work Phone: [facility] 08-08-2022 13:45-0400 Respiratory rate 16 /min Dr. Opal Mathews Work Phone: [facility] 08-08-2022 13:45-0400 Systolic blood pressure 147 mm[Hg] Dr. Opal Mathews Work Phone: [facility] 07-17-2022 15:38-0400 Body height 157.5 cm Opal Mathews MD Work Phone: [facility] 07-17-2022 15:38-0400 Body temperature 99 [degF] Opal Mathews MD Work Phone: [facility] 07-17-2022 15:38-0400 Body weight 87.54 kg Opal Mathews MD Work Phone: [facility] 07-17-2022 15:38-0400 Diastolic blood pressure 70 mm[Hg] Opal Mathews MD Work Phone: [facility] 07-17-2022 15:38-0400 Heart rate 80 /min Opal Mathews MD Work Phone: [facility] 07-17-2022 15:38-0400 Respiratory rate 12 /min Opal Mathews MD Work Phone: [facility] 07-17-2022 15:38-0400 SaO2% (BldA) [Mass fraction] 97 % Opal Mathews MD Work Phone: [facility] 07-17-2022 15:38-0400 Systolic blood pressure 126 mm[Hg] Opal Mathews MD Work Phone: [facility] 06-26-2022 08:58-0500 Diastolic blood pressure 83 mm[Hg] Shahriar Older CHILLER OPERATOR.NURSE STAFF Work Phone: [facility] 06-26-2022 08:58-0500 Systolic blood pressure 135 mm[Hg] Shahriar Older CHILLER OPERATOR.NURSE STAFF Work Phone: [facility] 06-26-2022 08:23-0500 Body weight 88 kg Shahriar Older CHILLER OPERATOR.NURSE STAFF Work Phone: [facility] 06-26-2022 08:23-0500 Heart rate 68 /min Shahriar Older CHILLER OPERATOR.NURSE STAFF Work Phone: [facility] 06-26-2022 08:23-0500 Respiratory rate 16 /min Shahriar Older CHILLER OPERATOR.NURSE STAFF Work Phone: [facility] 06-15-2022 15:30-0500 Diastolic blood pressure 81 mm[Hg] Shahriar Older CHILLER OPERATOR.NURSE STAFF Work Phone: [facility] 06-15-2022 15:30-0500 Heart rate 85 /min Shahriar Older CHILLER OPERATOR.NURSE STAFF Work Phone: [facility] 06-15-2022 15:30-0500 Systolic blood pressure 137 mm[Hg] Shahriar Older CHILLER OPERATOR.NURSE STAFF Work Phone: [facility] 06-15-2022 14:45-0500 Body temperature 99.1 [degF] Shahriar Older CHILLER OPERATOR.NURSE STAFF Work Phone: [facility] 06-15-2022 14:45-0500 Body weight 88.45 kg Shahriar Older CHILLER OPERATOR.NURSE STAFF Work Phone: [facility] 06-15-2022 14:45-0500 Respiratory rate 16 /min Shahriar Older CHILLER OPERATOR.NURSE STAFF Work Phone: [facility] 06-15-2022 14:45-0500 SaO2% (BldA) [Mass fraction] 99 % Shahriar Older CHILLER OPERATOR.NURSE STAFF Work Phone: [facility] 04-17-2022 09:54-0500 Diastolic blood pressure 82 mm[Hg] Shahriar Older CHILLER OPERATOR.NURSE STAFF Work Phone: [facility] 04-17-2022 09:54-0500 Systolic blood pressure 140 mm[Hg] Shahriar Older CHILLER OPERATOR.NURSE STAFF Work Phone: [facility] 04-17-2022 09:37-0500 Body height 157.5 cm Shahriar Older CHILLER OPERATOR.NURSE STAFF Work Phone: [facility] 04-17-2022 09:37-0500 Body temperature 98.1 [degF] Shahriar Older CHILLER OPERATOR.NURSE STAFF Work Phone: [facility] 04-17-2022 09:37-0500 Body weight 88.91 kg Shahriar Older CHILLER OPERATOR.NURSE STAFF Work Phone: [facility] 04-17-2022 09:37-0500 Heart rate 75 /min Shahriar Older CHILLER OPERATOR.NURSE STAFF Work Phone: [facility] 04-17-2022 09:37-0500 SaO2% (BldA) [Mass fraction] 98 % Shahriar Older CHILLER OPERATOR.NURSE STAFF Work Phone: [facility] 02-14-2022 12:45-0400 Body temperature 99.1 [degF] Tracy Podlogar CHILLER OPERATOR.NURSE STAFF Work Phone: [facility] 02-14-2022 12:45-0400 Body weight 89.18 kg Tracy Podlogar CHILLER OPERATOR.NURSE STAFF Work Phone: [facility] 02-14-2022 12:45-0400 Diastolic blood pressure 88 mm[Hg] Tracy Podlogar CHILLER OPERATOR.NURSE STAFF Work Phone: [facility] 02-14-2022 12:45-0400 Heart rate 80 /min Tracy Podlogar CHILLER OPERATOR.NURSE STAFF Work Phone: [facility] 02-14-2022 12:45-0400 Respiratory rate 18 /min Tracy Podlogar CHILLER OPERATOR.NURSE STAFF Work Phone: [facility] 02-14-2022 12:45-0400 SaO2% (BldA) [Mass fraction] 97 % Tracy Podlogar CHILLER OPERATOR.NURSE STAFF Work Phone: [facility] 02-14-2022 12:45-0400 Systolic blood pressure 130 mm[Hg] Tracy Podlogar CHILLER OPERATOR.NURSE STAFF Work Phone: [facility] 02-07-2022 10:48-0400 Body temperature 98.29 [degF] Kathy Leblanc-Klever CHILLER OPERATOR.NURSE STAFF Work Phone: [facility] 02-07-2022 10:48-0400 Body weight 89.72 kg Kathy Carterler-Klever CHILLER OPERATOR.NURSE STAFF Work Phone: [facility] 02-07-2022 10:48-0400 Diastolic blood pressure 80 mm[Hg] Praisler-Wood CHILLER OPERATOR.NURSE STAFF Work Phone: [facility] 02-07-2022 10:48-0400 Heart rate 69 /min Praisler-[place] CHILLER OPERATOR.NURSE STAFF Work Phone: [facility] 02-07-2022 10:48-0400 Respiratory rate 16 /min P[place]ler-[place] CHILLER OPERATOR.NURSE STAFF Work Phone: [facility] 02-07-2022 10:48-0400 SaO2% (BldA) [Mass fraction] 98 % Praisler-[place] CHILLER OPERATOR.NURSE STAFF Work Phone: [facility] 02-07-2022 10:48-0400 Systolic blood pressure 132 mm[Hg] Praisler-[place] CHILLER OPERATOR.NURSE STAFF Work Phone: [facility] 01-19-2022 09:04-0400 Diastolic blood pressure 86 mm[Hg] Shahriar Older CHILLER OPERATOR.NURSE STAFF Work Phone: [facility] 01-19-2022 09:04-0400 Systolic blood pressure 136 mm[Hg] Shahriar Older CHILLER OPERATOR.NURSE STAFF Work Phone: [facility] 01-19-2022 08:10-0400 Body weight 88.91 kg Shahriar Older CHILLER OPERATOR.NURSE STAFF Work Phone: [facility] 01-19-2022 08:10-0400 Heart rate 68 /min Shahriar Older CHILLER OPERATOR.NURSE STAFF Work Phone: [facility] 01-19-2022 08:10-0400 Respiratory rate 16 /min Shahriar Older CHILLER OPERATOR.NURSE STAFF Work Phone: [facility] 11-20-2021 13:06-0400 Body temperature 98.29 [degF] Praisler-[place] CHILLER OPERATOR.NURSE STAFF Work Phone: [facility] 11-20-2021 13:06-0400 Body weight 88.72 kg Praisler-Wood CHILLER OPERATOR.NURSE STAFF Work Phone: [facility] 11-20-2021 13:06-0400 Diastolic blood pressure 84 mm[Hg] Praisler-[place] CHILLER OPERATOR.NURSE STAFF Work Phone: [facility] 11-20-2021 13:06-0400 Heart rate 68 /min P[place] CHILLER OPERATOR.NURSE STAFF Work Phone: [facility] 11-20-2021 13:06-0400 Respiratory rate 16 /min P[place]ler[place] CHILLER OPERATOR.NURSE STAFF Work Phone: [facility] 11-20-2021 13:06-0400 SaO2% (BldA) [Mass fraction] 98 % P[place]ler-[place] CHILLER OPERATOR.NURSE STAFF Work Phone: [facility] 11-20-2021 13:06-0400 Systolic blood pressure 136 mm[Hg] Praisler-[place] CHILLER OPERATOR.NURSE STAFF Work Phone: [facility] 10-13-2021 07:49-0400 Body weight 88.45 kg Shahriar Older CHILLER OPERATOR.NURSE STAFF Work Phone: [facility] 10-13-2021 07:49-0400 Diastolic blood pressure 100 mm[Hg] Shahriar Older CHILLER OPERATOR.NURSE STAFF Work Phone: [facility] 10-13-2021 07:49-0400 Heart rate 64 /min Shahriar Older CHILLER OPERATOR.NURSE STAFF Work Phone: [facility] 10-13-2021 07:49-0400 Respiratory rate 16 /min Shahriar Older CHILLER OPERATOR.NURSE STAFF Work Phone: [facility] 10-13-2021 07:49-0400 Systolic blood pressure 144 mm[Hg] Shahriar Older CHILLER OPERATOR.NURSE STAFF Work Phone: [facility] 10-10-2021 18:09-0400 Body temperature 97.9 [degF] P[place]ler-[place] CHILLER OPERATOR.NURSE STAFF Work Phone: [facility] 10-10-2021 18:09-0400 Body weight 90.54 kg Praisler-[place] CHILLER OPERATOR.NURSE STAFF Work Phone: [facility] 10-10-2021 18:09-0400 Diastolic blood pressure 94 mm[Hg] Praisler-[place] CHILLER OPERATOR.NURSE STAFF Work Phone: [facility] 10-10-2021 18:09-0400 Heart rate 79 /min Praisler-[place] CHILLER OPERATOR.NURSE STAFF Work Phone: [facility] 10-10-2021 18:09-0400 Respiratory rate 21 /min Praisler-[place] CHILLER OPERATOR.NURSE STAFF Work Phone: [facility] 10-10-2021 18:09-0400 SaO2% (BldA) [Mass fraction] 99 % Praisler-[place] CHILLER OPERATOR.NURSE STAFF Work Phone: [facility] 10-10-2021 18:09-0400 Systolic blood pressure 172 mm[Hg] Praisler-[place] CHILLER OPERATOR.NURSE STAFF Work Phone: [facility] 09-19-2021 15:16-0400 Diastolic blood pressure 80 mm[Hg] Dyana Haagen CHILLER OPERATOR.NURSE STAFF Work Phone: [facility] 09-19-2021 15:16-0400 Heart rate 73 /min Dyana Haagen CHILLER OPERATOR.NURSE STAFF Work Phone: [facility] 09-19-2021 15:16-0400 Respiratory rate 18 /min Dyana Haagen CHILLER OPERATOR.NURSE STAFF Work Phone: [facility] 09-19-2021 15:16-0400 SaO2% (BldA) [Mass fraction] 98 % Dynaa Haagen CHILLER OPERATOR.NURSE STAFF Work Phone: [facility] 09-19-2021 15:16-0400 Systolic blood pressure 132 mm[Hg] Dyana Haagen CHILLER OPERATOR.NURSE STAFF Work Phone: [facility] Encounters Encounter Date Encounter Type Care Provider Facility Start: 11-26-2024 ambulatory Opal Mathews Facility:[facility] Start: 11-18-2024 ambulatory TARAN VENEGAS Facilit y:[facility] Start: 11-18-2024 Registered Recurring TARAN VENEGAS MD -Physical Therapy Work Phone: Start: 11-17-2024 End: 11-17-[address] Lauro Mason MD Work Phone: -Cat Scan [facility] Start: 11-17-2024 End: 11-17-[address] Lauro Mason MD -Cat Scan [facility] Work Phone: Start: 11-17-2024 End: 11-17-2024 ambulatory Opal Mathews Facility:[facility] Start: 11-14-2024 End: 11-14-2024 ambulatory SHAHRIAR BROWN Facility:[facility] Start: 11-13-2024 End: 11-14-2024 Telephone encounter Shahriar Brown APRN.NURSE STAFF Work Phone: [facility] [place] Comment on above: Patient Question; Or ders Start: 11-11-2024 End: 11-13-2024 Refill Opal Mathews MD Work Phone: [facility] [place] Comment on above: Refill Request Start: 11-10-2024 End: 11-13-2024 Refill Shahriar Brown CHILLER OPERATOR.NURSE STAFF Work Phone: [facility] [place] Comment on above: Refill Request Start: 10-31-2024 End: 10-31-[address] Opal Mathews MD Work Phone: -Laboratory Start: 10-31-2024 End: 10-31-[address] Lauro Mason MD -Laboratory Work Phone: Start: 10-30-2024 End: 10-31-[address] Opal Mathews MD Work Phone: -Laboratory Start: 10-30-2024 End: 10-30-[address] Lauro Mason MD -Laboratory Work Phone: Start: 10-29-2024 End: 10-30-2024 ambulatory JOSÉ MANUEL N LIANNA Facility:[facility] Start: 10-28-2024 End: 10-28-[address] Opal Mathews MD Work Phone: -Laboratory Specimen Start: 10-28-2024 End: 10-28-[address] Lauro Mason MD -Laboratory Specimen Work Phone: Start: 10-28-2024 End: 10-28-2024 ambulatory [facility] Facility:[facility] Start: 10-24-2024 End: 10-24-2024 ambulatory [facility] Facility:[facility] Start: 10-21-2024 End: 10-21-[address] Opal Mathews MD Work Phone: [facility] Work Phone: Start: 10-21-2024 End: 10-21-[address] Alicia Manzano MD -Laboratory Work Phone: Start: 10-20-2024 End: 10-20-[address] Alicia Manzano MD -[facility] Work Phone: Start: 10-20-2024 End: 10-21-[address] Opal Mathews MD Work Phone: [facility] Work Phone: Start: 09-26-2024 End: 09-26-[address] Opal Mathews MD Work Phone: [facility] Work Phone: Start: 09-26-2024 End: 09-26-[address] Lauro Mason MD -Laboratory Specimen Work Phone: Start: 09-26-2024 End: 09-26-2024 ambulatory Lauro Mason Facility:[facility] Start: 09-19-2024 End: 09-19-[address] Opal Matehws MD Work Phone: [facility] Work Phone: Start: 09-19-2024 End: 09-19-[address] Lauro Mason MD -Pulmonary Services/Neurology Work Phone: Start: 09-18-2024 End: 09-19-2024 ambulatory Shahriar Kevin CELESTELloydANTHONY Work Phone: [facility] [place] Comment on above: Health Start: 09-17-2024 End: 09-17-[address] Opal Mathews MD Work Phone: [facility] Work Phone: Start: 09-17-2024 End: 09-17-[address] Lauro Mason MD -Radiology [facility] Work Phone: Start: 09-17-2024 End: 09-17-2024 ambulatory Lauro Mason Facility:[facility] Start: 08-27-2024 End: 08-27-2024 ambulatory SHAHRIAR [facility] [facility] Start: 08-20-2024 ambulatory Alicia Manzano Facility:[facility] Start: 08-20-2024 Non-patient / Non-visit Dr. Alicia Manzano MD -[facility] Start: 08-19-2024 End: 08-19-2024 Patient encounter procedure Jacque HAWK Work Phone: [facility] Comment on above: Puncture wound of ri ght foot, initial encounter (Primary Dx); Not up to date with diphtheria-tetanus vaccination Start: 08-19-2024 End: 08-19-2024 ambulatory Opal Mathews MD Work Phone: [facility] [place] Comment on above: Puncture Wound Start: 08-18-2024 End: 08-18-2024 Office outpatient visit 15 minutes Opal Mathews MD Work Phone: [facility] [place] Comment on above: Dog scratch (Primary Dx); Bleeding from wound Start: 08-18-2024 End: 08-18-[address] Opal Mathews MD Work Phone: [facility] Work Phone: Start: 08-18-2024 End: 08-18-[address] Alicia Manzano MD -Cardiovascular Services Work Phone: Start: 08-18-2024 End: 08-18-2024 ambulatory Alicia Manzano Facility:[facility] Start: 08-18-2024 Non-patient / Non-visit Dr. Alicia Manzano MD -[facility] Start: 08-07-2024 End: 08-12-2024 ambulatory Shahriar Older CHILLER OPERATOR.NURSE STAFF Work Phone: [facility] [place] Comment on above: Possible UTI or some kind of infection Refill Request Start: 07-31-2024 End: 07-31-2024 ambulatory SHAHRIAR OLDER FURNITURE FABRICATOR-C Work Phone: [facility] Work Phone: Start: 07-31-2024 End: 07-31-2024 Patient encounter procedure Meg Painting PA -Laboratory Work Phone: Start: 07-30-2024 End: 08-04-2024 ambulatory Shahriar Older CHILLER OPERATOR.NURSE STAFF Work Phone: [facility] [place] Comment on above: Work Start: 07-28-2024 End: 07-28-2024 ambulatory SHAHRIAR OLDER FURNITURE FABRICATOR-C Work Phone: [facility] Work Phone: Start: 07-28-2024 End: 07-28-[address] Lauro Mason MD -[facility], [facility] Work Phone: Start: 07-28-2024 End: 07-28-2024 ambulatory [facility] Facility:[facility] Start: 07-21-2024 End: 07-21-2024 Patient encounter procedure Mario Mcdaniel PA -Laboratory, Specimen Work Phone: Start: 07-21-2024 End: 07-21-2024 ambulatory Mario Mcdaniel Facility:[facility] Start: 07-17-2024 End: 07-17-2024 ambulatory SHAHRIAR OLDER FURNITURE FABRICATOR-C Work Phone: [facility] Work Phone: Start: 07-17-2024 End: 07-17-[address] Alicia Manzano MD -Laboratory Work Phone: Start: 07-17-2024 End: 07-17-2024 ambulatory Alicia [facility] Facility:[facility] Start: 06-30-2024 End: 06-30-[address] Alicia Manzano MD -[facility] Work Phone: Start: 06-30-2024 End: 06-30-2024 ambulatory Alicia Jose Juan Facility:[facility] Start: 06-25-2024 End: 06-25-2024 ambulatory OPAL GANANA Facility:[facility] Start: 06-18-2024 End: 06-18-2024 Patient encounter procedure Kaya HAWK -[facility] Work Phone: Start: 06-18-2024 End: 06-18-2024 ambulatory Kaya Atadwight Facility:[facility] Start: 06-18-2024 End: 06-18-2024 ambulatory [facility] Facility:[facility] Start: 06-17-2024 End: 06-17-2024 Patient encounter procedure Kaya HAWK -[facility] Work Phone: Start: 06-17-2024 End: 06-17-2024 ambulatory [place] K[place] Facility:[facility] Start: 06-06-2024 End: 06-09-2024 ambulatory Opal Mathews MD Work Phone: [facility] [place] Comment on above: Dizziness Start: 05-28-2024 End: 05-28-2024 ambulatory SHAHRIAR BROWN Facility:[facility] Start: 05-28-2024 End: 05-28-2024 Patient encounter procedure Shahriar Brown APRN.NURSE STAFF Work Phone: [facility] [place] Comment on above: Anemia, unspecified type (Primary Dx); Type 2 diabetes mellitus without complication, without long-term current use of insulin (HCC) Start: 05-21-2024 End: 05-21-2024 Patient [facility] Work Phone: Start: 05-21-2024 End: 05-21-2024 ambulatory [place] Atanas Facility:[facility] Start: 05-21-2024 End: 05-21-2024 ambulatory [facility] Facility:[facility] Start: 05-14-2024 End: 05-14-2024 Non-patient / Non-visit Dr. Caden Charles MD -[facility] [facility] Work Phone: Start: 05-14-2024 End: 05-14-2024 Admission to same day surgery center Mike Daley DO -Endoscopy Work Phone: Start: 05-14-2024 End: 05-29-2024 ambulatory Shahriar Brown APRN.NURSE STAFF Work Phone: [facility] [place] Comment on above: Functional testing Start: 05-14-2024 End: 05-14-2024 Patient encounter procedure Shahriar Brown APRN.CNP Work Phone: [facility] [place] Comment on above: Anemia, unspecified type (Primary Dx) Start: 05-12-2024 End: 05-13-2024 Refill Opal Mathews MD Work Phone: [facility] [place] Comment on above: Refill Request Start: 05-10-2024 End: 05-11-2024 Emergency department patient visit Dr. Alfredo Sr MD -Emergency Department Work Phone: Start: 05-06-2024 End: 05-06-2024 Discharged Recurring SHAHRIAR BROWN FURNITURE FABRICATOR-C -Occupational [facility] py Work Phone: Start: 05-06-2024 End: 05-06-2024 ambulatory SHAHRIAR BROWN Facility:[facility] Start: 05-02-2024 End: 05-02-2024 ambulatory OPAL MATHEWS Facility:[facility] Start: 04-29-2024 End: 05-02-2024 ambulatory Opal Mathews MD Work Phone: Internal Medicine [place] [id number] Start: 04-27-2024 End: 04-27-2024 Emergency department patient visit Dr. Jian Nazario DO -Emergency Department Work Phone: Start: 04-25-2024 End: 04-25-2024 Refill Shahriar Older CHILLER OPERATOR.NURSE STAFF Work Phone: Internal [facility] Comment on above: Refill Request Start: 04-24-2024 End: 04-24-2024 ambulatory Shahriar Older CHILLER OPERATOR.NURSE STAFF Work Phone: Internal [facility] Comment on above: Exhaustion Start: 04-16-2024 End: 04-21-2024 Telephone encounter Shahriar Older CHILLER OPERATOR.NURSE STAFF Work Phone: [facility] Comment on above: Work Forms Start: 04-15-2024 End: 04-15-2024 Patient encounter procedure Meg HAWK -[place] [facility] Work Phone: Start: 04-15-2024 End: 04-15-2024 ambulatory Meg HAWK Facility:[facility] Start: 03-28-2024 End: 03-28-2024 Patient encounter procedure Shahriar Older CHILLER OPERATOR.NURSE STAFF Work Phone: [facility] Comment on above: Acute midline low ba ck pain without sciatica (Primary Dx); Hypertension, unspecified type Start: 03-28-2024 End: 03-28-2024 ambulatory [facility] Facility:[facility] Start: 03-21-2024 End: 03-21-2024 ambulatory [facility] Facility:[facility] Start: 03-18-2024 End: 03-19-2024 Refill Shahriar Older CHILLER OPERATOR.NURSE STAFF Work Phone: [facility] Comment on above: Refill Request Start: 03-13-2024 End: 03-13-2024 ambulatory [facility] Facility:[facility] Start: 02-28-2024 End: 02-28-2024 ambulatory [facility] Facility:[facility] Start: 02-19-2024 End: 02-20-2024 Telephone encounter Shahriar Older CHILLER OPERATOR.NURSE STAFF Work Phone: Internal [facility] Comment on above: Results Start: 02-14-2024 End: 02-14-2024 Patient encounter procedure Shahriar Older CHILLER OPERATOR.NURSE STAFF Work Phone: [facility] [place] Comment on above: Other fatigue (Prima ry Dx); Hypertension, unspecified type; Anxiety and depression; Encounter for immunization Start: 02-14-2024 End: 02-14-2024 ambulatory [facility] Facility:[facility] Start: 02-13-2024 End: 02-13-2024 ambulatory [facility] Facility:[facility] Start: 02-13-2024 End: 02-13-2024 ambulatory [facility] Facility:[facility] Start: 01-24-2024 End: 01-24-2024 ambulatory Shahriar Brown CHILLER OPERATOR.NURSE STAFF Work Phone: [facility] [place] Comment on above: Liver DrLloyd Start: 01-21-2024 End: 01-21-2024 ambulatory CHHAYA CROWE Facility:[facility] Start: 01-21-2024 End: 01-21-2024 Patient encounter procedure Chhaya Crowe MD Work Phone: OB/Gynecology Comment on above: Encounter for gyneco logical examination (general) (routine) without abnormal findings (Primary Dx); Encounter for screening mammogram for breast cancer Start: 01-21-2024 End: 01-21-2024 Patient encounter status Chhaya Crowe MD Work Phone: [facility] Start: 01-17-2024 End: 01-17-2024 ambulatory [facility] Facility:[facility] Start: 01-17-2024 End: 01-17-2024 Patient encounter procedure Shahriar Brown CHILLER OPERATOR.NURSE STAFF Work Phone: [facility] [place] Comment on above: Other fatigue (Prima ry Dx); HERMILO (obstructive sleep apnea); Hypertension, unspecified type; Anxiety and depression; Type 2 diabetes mellitus without complication, without long-term current use of insulin ([facility] Start: 01-15-2024 End: 01-15-2024 Refill Luz Cordoba CHILLER OPERATOR.NURSE STAFF Work Phone: [facility] [place] Comment on above: Refill Request Start: 01-01-2024 ambulatory [facility] Facility :[facility] Start: 12-31-2023 End: 12-31-2023 ambulatory [facility] Facility:[facility] Start: 12-25-2023 End: 12-26-2023 Documentation procedure Mammography Coordinator [facility] Start: 12-25-2023 End: 12-26-2023 Letter encounter Mammography Coordinator [facility] Start: 12-25-2023 End: 12-25-2023 ambulatory [facility] Facility:[facility] Start: 12-25-2023 End: 12-25-2023 Subsequent hospital visit by physician Screen Mammo [facility] Comment on above: Encounter for screen ing mammogram for breast cancer [Z12.31] Start: 12-24-2023 End: 01-24-2024 ambulatory Shahriar Brown APRN.CNP Work Phone: [facility] [place] Comment on above: Bloodwork Start: 12-18-2023 End: 12-18-2023 [facility] Facility:[facility] Start: 12-18-2023 End: 12-18-2023 Patient encounter procedure Shahriar Brown APRN.CNP Work Phone: [facility] [place] Comment on above: Type 2 diabetes mili itus without complication, without long- term current use of insulin (HCC) (Primary Dx); Other fatigue; HERMILO (obstructive sleep apnea); Atrial fibrillation, unspecified type (HCC); Hypertension, unspecified type; Anemia, unspecified type; Lupus (HCC) Start: 12-12-2023 ambulatory Opal Arellano Work Phone: Internal Medicine [facility] Start: 12-11-2023 End: 12-11-2023 ambulatory SHAHRIAR [facility] Facility:[facility] Start: 11-12-2023 Refill Luz gallegos APRNANYA Work Phone: [facility] [place] Comment on above: Refill Request Start: 10-17-2023 Telephone encounter Shahriar Brown APRN.CNP Work Phone: [facility] [place] Comment on above: Patient Question Start: 10-15-2023 Telephone encounter Opal perez MD Work Phone: [facility] [place] Comment on above: Appointment Start: 10-05-2023 ambulatory Shahriar Older CHILLER OPERATOR .NURSE STAFF Work Phone: [facility] [place] Comment on above: Bloodwork Start: 10-03-2023 Telephone encounter Suzie Ospina er CHILLER OPERATOR.NURSE STAFF Work Phone: [facility] [place] Comment on above: Results Start: 10-02-2023 ambulatory Shahriar Older CHILLER OPERATOR .NURSE STAFF Work Phone: [facility] [place] Comment on above: Ablation Start: 09-27-2023 End: 09-27-2023 Subsequent hospital visit by physician Ya Cleveland MD Work Phone: [facility] Comment on above: Paroxysmal atrial fi brillation Start: 09-26-2023 End: 09-26-2023 Subsequent hospital visit by physician Ya Cleveland MD Work Phone: Cardiovascular Imaging Lab [facility] Comment on above: Arrived Start: 09-17-2023 Refill Shahriar Older CHILLER OPERATOR .NURSE STAFF Work Phone: [facility] [place] Comment on above: Refill Request Start: 09-11-2023 ambulatory Shahriar Older CHILLER OPERATOR .NURSE STAFF Work Phone: [facility] [place] Comment on above: Ablation and anxiety Start: 09-07-2023 Refill Shahriar Older CHILLER OPERATOR .NURSE STAFF Work Phone: [facility] [place] Comment on above: Refill Request Start: 08-28-2023 End: 08-28-[address] Opal Mathews Work Phone: [facility] Work Phone: Start: 08-28-2023 End: 08-28-[address] Opal Mathews Work Phone: [facility]-Ultrasound, [facility] Work Phone: Start: 08-17-2023 End: 08-17-[address] Opal Mathews Work Phone: [facility] Work Phone: Start: 08-17-2023 End: 08-17-[address] Opal Mathews Work Phone: [facility]-Laboratory Work Phone: Start: 08-16-2023 End: 08-16-[address] Opal Mathews Work Phone: [facility] Work Phone: Start: 08-09-2023 End: 08-09-2023 Patient encounter procedure Shahriar Brown CHILLER OPERATOR.NURSE STAFF Work Phone: [facility] [place] Comment on above: Anemia, unspecified type (Primary Dx); Hypertension, unspecified type; Type 2 diabetes mellitus without complication, without long-term current use of insulin (HCC) Start: 07-26-2023 Telephone encounter Opal perez MD Work Phone: [facility] [place] Comment on above: Patient Update Start: 07-25-2023 End: 07-25-[address] Opal Mathews Work Phone: [facility] Work Phone: Start: 07-25-2023 End: 07-25-[address] Opal Mathews Work Phone: [facility]-Laboratory, Specimen Work Phone: Start: 07-24-2023 Telephone encounter Opal perez MD Work Phone: [facility] [place] Comment on above: Patient Update Start: 07-18-2023 Refill Ivett Dunn PA-C Work Phone: [facility] [place] Comment on above: Refill Request Start: 07-13-2023 Telephone encounter Shahriar Brown APRN.NURSE STAFF Work Phone: [facility] [place] Comment on above: Results Start: 07-11-2023 ambulatory Shahriar Brown CHILLER OPERATOR .NURSE STAFF Work Phone: [facility] [place] Comment on above: Anemia Start: 07-07-2023 ambulatory Shahriar Brown CHILLER OPERATOR .NURSE STAFF Work Phone: [facility] [place] Comment on above: Anemia Start: 07-06-2023 Telephone encounter Shahriar Brown APRN.NURSE STAFF Work Phone: [facility] [place] Comment on above: Patient Update Start: 07-05-2023 End: 07-05-2023 Patient encounter procedure Shahriar Brown APRN.NURSE STAFF Work Phone: [facility] [place] Comment on above: Subacute sinusitis, unspecified location (Primary Dx); Hypertension, unspecified type; Atrial fibrillation, unspecified type (HCC); Type 2 diabetes mellitus without complication, without long-term current use of insulin (HCC); Anemia, unspecified type Start: 06-25-2023 Non-patient / Non-visit Dr. Opal Mathews Work Phone: [facility] Start: 06-22-2023 Telephone encounter Shahriar Brown APRN.NURSE STAFF Work Phone: [facility] [place] Comment on above: Patient Update Start: 06-21-2023 End: 06-21-2023 Emergency department patient visit Dr. Opal Mathews Work Phone: [facility]-Emergency Department Work Phone: Start: 06-21-2023 End: 06-21-2023 Patient encounter procedure Rubi Araya PA-C Work Phone: [facility] [facility] Comment on above: Right upper quadrant pain (Primary Dx) Start: 06-21-2023 Refill Shahriar Brown APRN .NURSE STAFF Work Phone: [facility] [place] Comment on above: Refill Request Start: 06-21-2023 Telephone encounter Shahriar Brown APRN.NURSE STAFF Work Phone: [facility] [place] Comment on above: Nausea (& upset stom ach) Start: 06-21-2023 End: 06-21-[address] Opal Mathews Work Phone: [facility] Work Phone: Start: 06-21-2023 End: 06-21-[address] [facility] Start: 06-21-2023 Non-patient / Non-visit Dr. Opal Mathews Work Phone: [facility] Start: 06-19-2023 Refill Shahriar Older CHILLER OPERATOR .NURSE STAFF Work Phone: [facility] [place] Comment on above: Refill Request Start: 06-18-2023 Refill Shahriar Older CHILLER OPERATOR .NURSE STAFF Work Phone: [facility] [place] Comment on above: Refill Request Start: 06-13-2023 End: 06-13-[address] Opal Mathews Work Phone: [facility] Work Phone: Start: 06-13-2023 End: 06-13-[address] Opal Mathews Work Phone: [facility]-Laboratory Work Phone: Start: 06-08-2023 Refill Shahriar Older CHILLER OPERATOR .NURSE STAFF Work Phone: [facility] [place] Comment on above: Refill Request Start: 06-05-2023 End: 06-05-[address] Opal Mathews Work Phone: [facility] Work Phone: Start: 04-28-2023 End: 04-29-2023 Emergency department patient visit Dr. Opal Mathews Work Phone: [facility]-Emergency Department Work Phone: Start: 04-27-2023 End: 05-06-[address] Opal Mathews Work Phone: [facility] Work Phone: Start: 04-27-2023 End: 05-06-[address] Opal Mathews Work Phone: [facility]-Cardiac Rehab Work Phone: Start: 04-27-[address] Daxa Mathews Work Phone: [facility]-Cardiac Rehab Work Phone: Start: 04-16-2023 End: 04-16-2023 Patient encounter procedure Rubi Araya PA-C Work Phone: [facility] Comment on above: Viral illness (Prima ry Dx) Start: 04-04-2023 End: 04-05-[address] Opal Mathews Work Phone: [facility] Work Phone: Start: 04-04-2023 End: 04-05-[address] Opal Mathews Work Phone: [facility]-Cardiac Rehab Work Phone: Start: 03-29-2023 End: 03-29-2023 Emergency department patient visit Dr. Opal Mathews Work Phone: [facility]-Emergency Department Work Phone: Start: 03-28-2023 End: 03-28-2023 Patient encounter procedure Shahriar Brown APRN.NURSE STAFF Work Phone: Internal [facility] Comment on above: New onset a-fib (HCC ) (Primary Dx) Start: 03-28-[address] Daxa Mathews Work Phone: [facility]-Cardiac Rehab Work Phone: Start: 03-21-2023 End: 03-21-[address] Opal Mathews Work Phone: [facility] Work Phone: Start: 03-20-2023 Refill Travon SULTANA RN.NURSE STAFF Work Phone: Internal [facility] Comment on above: Refill Request Start: 03-16-2023 End: 03-16-2023 Emergency department patient visit MARYLU TOLED[facility] Start: 03-12-2023 End: 03-12-[address] Opal Mathews Work Phone: [facility]-Laboratory Work Phone: Start: 03-12-2023 End: 03-12-2023 Patient encounter procedure Ivett Dunn PA-C Work Phone: [facility] Comment on above: Chronic sinusitis, u nspecified location (Primary Dx) Start: 03-08-2023 ambulatory Shahriar DesaiNURSE STAFF Work Phone: Internal [facility] Comment on above: Weather Start: 03-05-2023 End: 03-06-[address] Opal Mathews Work Phone: [facility] Work Phone: Start: 03-05-2023 End: 03-06-[address] Opal Mathews Work Phone: [facility]-Cardiac Rehab Work Phone: Start: 03-01-2023 Refill Shahriar DesaiNURSE STAFF Work Phone: [facility] Comment on above: Refill Request Start: 02-28-2023 End: 02-28-2023 Patient encounter procedure Shahriar Brown APRN.NURSE STAFF Work Phone: [facility] Comment on above: New onset a-fib (HCC ) (Primary Dx); Type 2 diabetes mellitus without complication, without long-term current use of insulin (HCC) Start: 02-27-2023 End: 02-27-2023 Emergency department patient visit Dr. Opal Mathews Work Phone: [facility]-Emergency Department Work Phone: Start: 02-26-[address] Dxaa Mathews Work Phone: [facility]-Cardiac Rehab Work Phone: Start: 02-21-2023 End: 02-21-[address] Opal Mathews Work Phone: [facility] Work Phone: Start: 02-12-2023 End: 02-12-[address] Opal Mathews Work Phone: [facility] Work Phone: Start: 02-12-2023 End: 02-12-[address] Opal Mathews Work Phone: [facility]-Laboratory, Specimen Work Phone: Start: 02-09-[address] Daxa Mathews Work Phone: [facility]-Cardiac Rehab Work Phone: Start: 02-07-2023 Non-patient / Non-visit Dr. Opal Mathews Work Phone: [facility] Start: 02-07-2023 End: 02-07-[address] Opal Mathews Work Phone: [facility]-Cardiovascular Services Work Phone: Start: 02-02-2023 ambulatory Shahriar Older CHILLER OPERATOR .NURSE STAFF Work Phone: [facility] Start: 02-02-2023 Letter encounter Shahriar Brown APR N.NURSE STAFF Work Phone: [facility] [place] Comment on above: Letter Start: 01-29-2023 End: 02-03-[address] Opal Mathews Work Phone: [facility] Work Phone: Start: 01-29-2023 End: 02-03-[address] Opal Mathews Work Phone: [facility]-Cardiac Rehab Work Phone: Start: 01-29-[address] Daxa Mathews Work Phone: [facility]-Cardiac Rehab Work Phone: Start: 01-24-2023 Non-patient / Non-visit Dr. Opal Mathews Work Phone: [facility] Start: 01-24-2023 End: 01-24-[address] Opal Mathews Work Phone: [facility] Work Phone: Start: 01-24-2023 End: 01-24-[address] Opal Mathews Work Phone: [facility] Work Phone: Start: 01-24-2023 End: 01-24-[address] Opal Mathews Work Phone: [facility]-Pulmonary Services/Neurology Work Phone: Start: 01-19-2023 End: 01-19-[address] Oapl Mathews Work Phone: [facility] Work Phone: Start: 01-19-2023 End: 01-19-[address] Opal Mathews Work Phone: [facility]-Cardiac Rehab Work Phone: Start: 01-16-2023 End: 01-16-[address] Opal Mathews Work Phone: [facility] Work Phone: Start: 01-16-2023 End: 01-16-[address] Opal Mathews Work Phone: [facility]-Laboratory Work Phone: Start: 12-31-2022 End: 12-31-2022 Emergency department patient visit Dr. Opal Mathews Work Phone: [facility]-Emergency Department Work Phone: Start: 12-31-2022 End: 12-31-2022 Patient encounter procedure John Rodriguez APRN.NURSE STAFF Work Phone: [facility] Comment on above: Procedure not roddy d out (Primary Dx) Start: 12-28-2022 Non-patient / Non-visit Dr. Opal Mathews Work Phone: [facility] Start: 12-27-2022 End: 12-28-2022 Evaluation and management of inpatient Dr. Opal Mathews Work Phone: [facility] Work Phone: Start: 12-27-2022 End: 12-28-[address] Opal Mathews Work Phone: [facility] Work Phone: Start: 12-27-2022 Non-patient / Non-visit Dr. Opal Mathews Work Phone: [facility] Start: 12-20-2022 End: 12-20-2022 Patient encounter procedure Shahriar Brown APRN.NURSE STAFF Work Phone: [facility] [place] Comment on above: Cellulitis of right lower extremity (Primary Dx); Dependent edema Start: 12-19-2022 Telephone encounter Ivett Lentz PA-C Work Phone: [facility] Comment on above: Cellulitis Update Start: 12-14-2022 End: 12-14-2022 Patient encounter procedure Shahriar Brown APRN.NURSE STAFF Work Phone: [facility] [place] Comment on above: Cellulitis of right lower extremity (Primary Dx); Subacute sinusitis, unspecified location; RUQ pain; Liver fibrosis; Type 2 diabetes mellitus without complication, without long-term current use of insulin (HCC) Start: 12-14-2022 End: 12-14-[address] Opal Mathews Work Phone: [facility] Work Phone: Start: 12-14-2022 End: 12-14-[address] Opal Mathews Work Phone: [facility] [facility], [facility] Work Phone: Start: 12-09-2022 End: 12-09-2022 Office outpatient visit 25 minutes John Rodriguez APRN.NURSE STAFF Work Phone: [facility] Comment on above: Bacterial sinusitis (Primary Dx) Start: 12-07-2022 End: 12-07-[address] Opal Mathews Work Phone: [facility] Work Phone: Start: 12-07-2022 End: 12-07-[address] Opal Mathews Work Phone: [facility] Work Phone: Start: 12-03-2022 Non-patient / Non-visit Dr. Opal Mathews Work Phone: [facility] Start: 12-03-2022 End: 12-03-2022 Emergency department patient visit Dr. Opal Mathews Work Phone: [facility]Emer[facility] Work Phone: Start: 12-03-2022 End: 12-03-2022 Patient encounter procedure Rubi Araya PA-C Work Phone: [facility] Comment on above: Leg swelling (Primar y Dx) Start: 11-28-2022 ambulatory Opal Arellano Work Phone: Internal Medicine [facility] Start: 11-27-2022 End: 11-27-2022 Emergency department patient visit Dr. Opal Mathews Work Phone: [facility] Work Phone: Start: 11-17-2022 ambulatory Shahriar Brown CHILLER OPERATOR .NURSE STAFF Work Phone: [facility] [place] Comment on above: Sinus spray Start: 11-16-2022 End: 11-16-[address] Opal Mathews Work Phone: [facility] Work Phone: Start: 11-10-2022 ambulatory Shahriar Brown CHILLER OPERATOR .NURSE STAFF Work Phone: [facility] [place] Comment on above: Start: 11-10-2022 Documentation procedure Mammography Coordinator [facility] Start: 11-10-2022 Letter encounter Mammography Coordinator [facility] Department Start: 11-09-2022 End: 11-09-2022 Subsequent hospital visit by physician Screen Mammo [facility] Comment on above: Encounter for screen ing mammogram for breast cancer [Z12.31] Start: 10-30-2022 Refill Shahriar Brown APRN, .CNP Work Phone: [facility] [place] Comment on above: Refill Request Start: 10-13-2022 Non-patient / Non-visit Dr. Opal Mathews Work Phone: [facility] Start: 10-12-2022 End: 10-12-2022 Patient encounter procedure [...] encounter procedure Dr. Opal Mathews Work Phone: [facility] Work Phone: Start: 10-09-2022 Refill Shahriar DesaiNURSE STAFF Work Phone: [facility] [place] Comment on above: Refill Request Start: 09-21-2022 End: 09-21-2022 Subsequent hospital visit by physician [facility] 2 Work Phone: Radiology Comment on above: Liver fibrosis [K74. 00] Start: 09-14-2022 End: 09-14-2022 Patient encounter procedure Shahriar Brown APRN.CNP Work Phone: [facility] [place] Comment on above: Type 2 diabetes mili itus without complication, without long- term current use of insulin (HCC) (Primary Dx); Hypertension, unspecified type; Liver fibrosis; RUQ pain; Vaginal candidiasis; Palpitations Start: 09-04-2022 End: 09-04-2022 Patient encounter procedure Shahriar Brown APRN.CNP Work Phone: [facility] [place] Comment on above: Acute recurrent sinu sitis, unspecified location (Primary Dx) Start: 08-31-2022 Non-patient / Non-visit Dr. Opal Mathews Work Phone: [facility] Start: 08-31-2022 Non-patient / Non-visit Dr. Opal Mathews Work Phone: [facility] Start: 08-31-2022 End: 08-31-[address] Opal Mathews Work Phone: [facility] Work Phone: Start: 08-31-2022 End: 08-31-[address] Opal Mathews Work Phone: [facility]Cardi[facility] Services Start: 08-25-2022 Telephone encounter Opal perez MD Work Phone: [facility] [place] Comment on above: Results Start: 08-23-2022 End: 08-23-[address] Opal Mathews Work Phone: [facility] Work Phone: Start: 08-23-2022 End: 08-23-[address] Opal Mathews Work Phone: [facility]-Laboratory, Specimen Start: 08-17-2022 End: 08-17-2022 Patient encounter procedure Shahriar Brown APRN.CNP Work Phone: [facility] [place] Comment on above: Graves disease (Prim ximena Dx); History of Srini thyroiditis; Hypertension, unspecified type; Acute non-recurrent maxillary sinusitis Start: 08-08-2022 End: 08-08-[address] Opal Mathews Work Phone: [facility] Start: 07-27-2022 Telephone encounter Opal perez MD Work Phone: [facility] [place] Comment on above: Faxed cardiology ref erral to [facility] Start: 07-26-2022 Telephone encounter Shahriar Brown APRN.NURSE STAFF Work Phone: [facility] [place] Comment on above: Results New Patient Start: 07-21-2022 Telephone encounter Opal perez MD Work Phone: [facility] [place] Comment on above: patient update/illne ss persisting Start: 07-17-2022 End: 07-17-2022 Patient encounter procedure Opal Mathews MD Work Phone: [facility] [place] Comment on above: Viral illness (Prima ry Dx) Start: 07-09-2022 Refill Shahriar Brown CHILLER OPERATOR .NURSE STAFF Work Phone: [facility] [place] Comment on above: Refill Request Start: 06-26-2022 End: 06-26-2022 Patient encounter procedure Shahriar Brown CHILLER OPERATOR.NURSE STAFF Work Phone: [facility] [place] Comment on above: Chest pain, unspecif ied type (Primary Dx); Palpitations; Type 2 diabetes mellitus without complication, without long-term current use of insulin (HCC); Hypertension, unspecified type; Xyphoidalgia; Headaches Start: 06-22-2022 Telephone encounter Shahriar Brown APRN.NURSE STAFF Work Phone: [facility] [place] Comment on above: Results Start: 06-15-2022 End: 06-15-2022 Patient encounter procedure Shahriar Brown CHILLER OPERATOR.NURSE STAFF Work Phone: [facility] [place] Comment on above: Chest pain, unspecif ied type (Primary Dx); Palpitations; Headaches; Type 2 diabetes mellitus without complication, without long-term current use of insulin (HCC); Hypertension, unspecified type Start: 06-12-2022 Telephone encounter Opal perez MD Work Phone: [facility] [place] Comment on above: Patient Request Start: 06-08-2022 Refill Shahriar Brown CHILLER OPERATOR .NURSE STAFF Work Phone: [facility] [place] Comment on above: Refill Request Insurance Authorizat ion Start: 05-17-2022 End: 05-17-2022 ambulatory [facility] Work Phone: Start: 05-17-2022 End: 05-17-2022 Patient encounter procedure [facility]Laboratory, Specimen Start: 04-19-2022 ambulatory Shahriar Older CHILLER OPERATOR .NURSE STAFF Work Phone: [facility] Start: 04-19-2022 Letter encounter Shahriar Older APR N.NURSE STAFF Work Phone: [facility] [place] Comment on above: Letter for work Letter for work and paperwork from work to fill out Start: 04-19-2022 End: 04-19-2022 Subsequent hospital visit by physician [facility] [place] Work Phone: Radiology Comment on above: Fatigue, unspecified type [R53.83] Start: 04-18-2022 ambulatory Shahriar Older CHILLER OPERATOR .NURSE STAFF Work Phone: [facility] Start: 04-18-2022 Letter encounter Shahriar Older APR N.NURSE STAFF Work Phone: [facility] [place] Comment on above: Letter for work Start: 04-17-2022 End: 04-17-2022 Patient encounter procedure Shahriar Older CHILLER OPERATOR.NURSE STAFF Work Phone: [facility] [place] Comment on above: Other acute sinusiti s, recurrence not specified (Primary Dx) Start: 04-05-2022 End: 04-05-2022 ambulatory [facility] Work Phone: Start: 04-05-2022 End: 04-05-2022 Patient encounter procedure [facility], [place] Start: 03-23-2022 End: 03-23-2022 ambulatory [facility] Work Phone: Start: 03-23-2022 End: 03-23-2022 Patient encounter procedure [facility] [facility], [facility] Start: 03-18-2022 Refill Shahriar Older CHILLER OPERATOR .NURSE STAFF Work Phone: Pediatrics [place] Comment on above: Refill Request Start: 03-17-2022 Telephone encounter Opal perez MD Work Phone: [facility] [place] Comment on above: Fax Request Start: 03-17-2022 End: 03-17-2022 ambulatory [facility] Work Phone: Start: 03-17-2022 End: 03-17-2022 Patient encounter procedure [facility] Start: 03-16-2022 ambulatory Shahriar Brown CHILLER OPERATOR .NURSE STAFF Work Phone: [facility] [place] Comment on above: Urine Test Start: 03-08-2022 Refill Saskia Palomo CHILLER OPERATOR.NURSE STAFF Work Phone: [facility] [place] Comment on above: Refill Request Start: 02-24-2022 Telephone encounter Shahriar Brown CHILLER OPERATOR.NURSE STAFF Work Phone: [facility] [place] Comment on above: Results Start: 02-16-2022 ambulatory Shahriar Brown CHILLER OPERATOR .NURSE STAFF Work Phone: [facility] [place] Comment on above: Urine test results Start: 02-15-2022 Telephone encounter Tracy tapia CHILLER OPERATOR.NURSE STAFF Work Phone: [facility] [place] Comment on above: Results Start: 02-14-2022 End: 02-14-2022 Patient encounter procedure Tracy Mendes CHILLER OPERATOR.NURSE STAFF Work Phone: [facility] Comment on above: Upper respiratory sy mptom (Primary Dx); UTI symptoms Start: 02-07-2022 End: 02-07-2022 Patient encounter procedure Kathy Alejandre CHILLER OPERATOR.NURSE STAFF Work Phone: [facility] Comment on above: Suspected COVID-19 v irus infection (Primary Dx) Start: 01-27-2022 ambulatory Shahriar Brown CHILLER OPERATOR .NURSE STAFF Work Phone: [facility] [place] Comment on above: Diflucan Start: 01-19-2022 End: 01-19-2022 Patient encounter procedure Shahriar Brown CHILLER OPERATOR.NURSE STAFF Work Phone: [facility] [place] Comment on above: Type 2 diabetes mili itus without complication, without long- term current use of insulin (HCC) (Primary Dx); Hypertension, unspecified type; Interstitial lung disease (HCC); Mixed hyperlipidemia; Bacteria in urine; Leukocytes in urine; Acute non-recurrent sinusitis, unspecified location; Need for influenza vaccination Start: 01-15-2022 Refill Shahriar Brown APRN .ANTHONY Work Phone: [facility] [place] Comment on above: Refill Request Start: 12-18-2021 Refill Shahriar Brown APRN .NURSE STAFF Work Phone: [facility] [place] Comment on above: Refill Request Start: 11-20-2021 End: 11-20-2021 Patient encounter procedure Kathy Alejandre APRN.ANTHONY Work Phone: [facility] Comment on above: Sore throat (Primary Dx); Exposure to COVID-19 virus Start: 11-17-2021 End: 11-17-2021 [facility] Start: 11-16-2021 Refill Shahriar Brown APRN .ANTHONY Work Phone: Internal [facility] Comment on above: Refill Request Start: 11-02-2021 End: 11-02-2021 Subsequent hospital visit by physician Diagnostic Mammo [facility] Mammogram Start: 11-02-2021 ambulatory Shahriar Brown APRN .ANTHONY Work Phone: [facility] Comment on above: Liver scan Start: 10-24-2021 End: 10-24-2021 Patient encounter procedure [facility]Ultrasound, [facility] Start: 10-14-2021 ambulatory Shahriar Brown CHILLER OPERATOR .NURSE STAFF Work Phone: Internal [facility] Comment on above: Results of tests Start: 10-13-2021 End: 10-13-2021 Subsequent hospital visit by physician [facility] Work Phone: Radiology Comment on above: Type 2 diabetes mili itus without complication, without long- term current use of insulin (HCC) [E11.9] Start: 10-13-2021 End: 10-13-2021 Patient encounter procedure Shahriar Brown APRN.NURSE STAFF Work Phone: [facility] [place] Comment on above: Xyphoidalgia (Primar y Dx); RUQ pain; Nausea; Type 2 diabetes mellitus without complication, without long-term current use of insulin (HCC) Start: 10-10-2021 End: 10-10-2021 Patient encounter procedure hailee Alejandre CHILLER OPERATOR.NURSE STAFF Work Phone: [facility] [facility] Comment on above: Frequency of urinati on (Primary Dx) Start: 10-06-2021 End: 10-06-2021 Patient encounter procedure [facility] Start: 09-26-2021 Telephone encounter Hui [facility] residential CHILLER OPERATOR.NURSE STAFF Work Phone: OB/Gynecology Comment on above: Orders Start: 09-22-2021 Documentation procedure Mammography Coordinator [facility] Start: 09-22-2021 Letter encounter Mammography Coordinator [facility] Department Start: 09-19-2021 End: 09-19-2021 Patient encounter procedure Dyana Valadez CHILLER OPERATOR.NURSE STAFF Work Phone: [facility] [place] Comment on above: Xyphoidalgia (Primar y Dx) Start: 08-08-2021 Refill Eladio Hoskins CHILLER OPERATOR.NURSE STAFF Work Phone: [facility] [place] Comment on above: Refill Request Start: 01-14-2020 End: 01-14-2020 Subsequent hospital visit by physician Dia Galarza Work Phone: [facility] Comment on above: Arrived Procedures Date Procedure Procedure Detail Performing Clinician Start: 11-17-2024 CT of chest without contrast Dr. Lauro Mason MD Work Phone: Start: 10-28-2024 Gram stain microscopy Latoya Mathews MD Work Phone: Start: 10-28-2024 Respiratory microbia l culture Dr. Opal Mathews MD Work Phone: Start: 09-26-2024 Gram stain microscopy Latoya Mathews [...] of myocardium under exercise stress Dr. Opal Mathesw MD Work Phone: Start: 07-28-2024 CT of chest without contrast SHAHRIAR BROWN FURNITURE FABRICATOR-C Work Phone: Start: 07-21-2024 Gram stain microscopy J BRAYAN BROWN FURNITURE FABRICATOR-C Work Phone: Start: 07-21-2024 End: 07-21-2024 Respiratory microbial culture SHAHRIAR BROWN FURNITURE FABRICATOR-C Work Phone: Start: 06-18-2024 Measurement of renal [...] 06-17-2024 Clostridium difficil e detection SHAHRIAR BROWN FURNITURE FABRICATOR-C Work Phone: Start: 06-17-2024 End: 06-17-2024 Giardia lamblia antigen assay SHAHRIAR BROWN FURNITURE FABRICATOR-C Work Phone: Start: 06-17-2024 Lactoferrin measurement SHAHRIAR BROWN FURNITURE FABRICATOR-C Work Phone: Start: 06-17-2024 Nucleic acid assay SHAHRIAR BROWN FURNITURE FABRICATOR-C Work Phone: Start: 06-17-2024 Ova OR parasites identification SHAHRIAR OLDER FURNITURE FABRICATOR-C Work Phone: Start: 05-10-2024 X-ray of chest, PA a nd lateral views SHAHRIAR BROWN FURNITURE FABRICATOR-C Work Phone: Start: 05-10-2024 CT of head without contrast SHAHRIAR BROWN FURNITURE FABRICATOR-C Work Phone: Start: 05-10-2024 Measurement of occul t blood in stool specimen using immunoassay SHAHRIAR BROWN FURNITURE FABRICATOR-C Work Phone: Start: 05-10-2024 SARS-CoV-2, Influenz a & RSV (PCR) SHAHRIAR OLDER FURNITURE FABRICATOR-C Work Phone: Start: 04-27-2024 Plain chest X-ray SHAHRIAR Appiah LDER FURNITURE FABRICATOR-C Work Phone: Start: 04-27-2024 CT of head without contrast SHAHRIAR BROWN FURNITURE FABRICATOR-C Work Phone: Start: 03-28-2024 Urnls dip stick/tabl et rgnt auto w/o microscopy Shahriar Brown CHILLER OPERATOR.NURSE STAFF Work Phone: Start: 12-25-2023 Screening digital br east tomosynthesis bi Bulk Order Provider Start: 09-27-2023 Ephys evl trnsptl tx atrial fib isolat pulm vein Ya [place] MD Work Phone: Start: 09-27-2023 ACT* LOW RANGE, POC Gary [place] MD Work Phone: Start: 09-27-2023 Glucose measurement, blood Ya [place] MD Work Phone: Start: 09-27-2023 End: 09-27-2023 ACT* LOW RANGE, POC Ya [facility] MD Work Phone: Start: 09-27-2023 Glucose measurement, blood Ya [place] MD Work Phone: Start: 09-27-2023 Prothrombin time Pat Turner CHILLER OPERATOR-[employer] Work Phone: Start: 09-27-2023 Ecg routine ecg w/le ast 12 lds w/i&r Pat Turner CHILLER OPERATOR-NURSE STAFF Work Phone: Start: 09-26-2023 Ct heart contrast ev al cardiac structure&morph Yafredy [place] MD Work Phone: Start: 08-28-2023 CT [...] A/ B & RSV NAAT, ROUTINE Rubi R Athy PA-C Work Phone: Start: 03-29-2023 Plain chest [...] real ti me w/image limited Shahriar Brown CHILLER OPERATOR.NURSE STAFF Work Phone: Start: 08-23-2022 Investigation of transfusion reaction Dr. Opal Mathews Work Phone: Start: 08-23-[address] Opal Mathews Work Phone: Start: 04-19-2022 Radiologic exam ches t 2 views Shahriar Brown CHILLER OPERATOR.NURSE STAFF Work Phone: Start: 03-23-2022 US urinary tract Start: 02-14-2022 Urnls dip stick/tabl et rgnt auto w/o microscopy Tracy Humphrieslogearl CHILLER OPERATOR.NURSE STAFF Work Phone: Start: 01-19-2022 Hemoglobin A1c/Hemoglobin.total in Blood Shahriar Kevin CHILLER OPERATOR.NURSE STAFF Work Phone: Start: 01-19-2022 INFLUENZA VACCINE QUADRIVALENT 6 MO - 64 YRS IM Shahriar Brown CHILLER OPERATOR.NURSE STAFF Work Phone: Start: 11-20-2021 STREP A MOLECULAR (POC) Kathy Alejandre CHILLER OPERATOR.NURSE STAFF Work Phone: Start: 11-17-2021 CT of chest without contrast Start: 11-02-2021 MIN DIAG W ROBERT RT Molly Seymour CHILLER OPERATOR.CNM Work Phone: Start: 10-24-2021 Ultrasound elastography Start: 10-13-2021 Radex sternum minimu m 2 views Shahriar Kevin CHILLER OPERATOR.NURSE STAFF Work Phone: Start: 10-13-2021 Hemoglobin A1c/Hemoglobin.total in Blood Shahriar Brown CHILLER OPERATOR.NURSE STAFF Work Phone: Start: 10-10-2021 Urnls dip stick/tabl et rgnt auto w/o microscopy Anabela Angulo PA-C Work Phone: Start: 10-06-2021 CBC/DIFF (OUTSIDE ) R jay Mason Work Phone: Start: 09-22-2021 Mammography Mammograph y Coordinator Start: 06-16-2021 Adult depression screening assessment Eladio Gato BOOKER.NURSE STAFF Work Phone: Start: 03-15-2020 Mammography Eladio ohara CHILLER OPERATOR.NURSE STAFF Work Phone: Start: 01-22-2020 Colonoscopy Eladio ohara CHILLER OPERATOR.NURSE STAFF Work Phone: Start: 01-14-2020 Dup-scan artl marlon [...] DTaP,Tdap,Td Vaccine (2 - Td or Tdap) [facility] Start: 08-27-2025 Annual PCP Team Chronic Disease Visit Annual PCP Team Chronic Disease Visit [facility] Start: 08-18-2025 Annual PCP Team Chronic Disease Visit Annual PCP Team Chronic Disease Visit [facility] Start: 05-28-2025 Annual PCP Team Chronic Disease Visit Annual PCP Team Chronic Disease Visit [facility] Start: 05-14-2025 Annual PCP Team Chronic Disease Visit Annual PCP Team Chronic Disease Visit [facility] Start: 05-14-2025 BP Controlled (<130/80) BP Controlled (<130/80) [facility] Start: 05-02-2025 Hepatitis B surface antibody level LDL Cholesterol [facility] Start: 03-28-2025 Annual PCP Team Chronic Disease Visit Annual PCP Team Chronic Disease Visit [facility] Start: 02-13-2025 Annual PCP Team Chronic Disease Visit Annual PCP Team Chronic Disease Visit [facility] Start: 02-13-2025 BP Controlled (<130/80) BP Controlled (<130/80) [facility] Start: 01-26-2025 End: 01-26-2025 Patient encounter procedure Mammogram Comment on above: Encounter for screening mammogram for br east cancer [Z12.31] Annual Start: 01-20-2025 BP Controlled (<130/80) BP Controlled (<130/80) [facility] Start: 01-16-2025 Annual PCP Team Chronic Disease Visit Annual PCP Team Chronic Disease Visit [facility] Start: 01-16-2025 Covid-19 Vaccine () Covid-19 Vaccine () [facility] Comment on above: Postponed from 01/06/2024 (Declined at t his time) Start: 01-16-2025 Covid-19 Vaccine () Covid-19 Vaccine () [facility] Comment on above: Postponed from 01/06/2024 (Declined at t his time) Start: 01-16-2025 HIV screening HIV Screening [facility] Comment on above: Postponed from 09/13/1983 (Declined at t his time) Start: 01-07-2025 Glaucoma screening Dilated Retinal Exam [facility] Start: 01-05-2025 Influenza vaccination Influenza Vaccine (#1) [facility] Start: 12-24-2024 Screening for malignant neoplasm of breast Mammogram Screening [facility] Start: 12-17-2024 Annual PCP Team Chronic Disease Visit Annual PCP Team Chronic Disease Visit [facility] Start: 12-17-2024 Diabetic foot examination Diabetic Foot Exam [facility] Start: 12-17-2024 Hepatitis B screening Urine Albumin:Creatinine Ratio [facility] Start: 12-17-2024 Hepatitis B Vaccine (1 of 3 - 19+ 3-dose series) Hepatitis B Vaccine (1 of 3 - 19+ 3-dose series) [facility] Comment on above: Postponed from 1984 (Declined at t his time) Start: 12-17-2024 Pneumococcal vaccination Pneumococcal Vaccine (1 of 2 - PCV) [facility] Comment on above: Postponed from 09/13/1971 (Declined at t his time) Start: 12-17-2024 Shingrix Vaccine (1 of 2) Shingrix Vaccine (1 of 2) [facility] Comment on above: Postponed from 09/13/2015 (Declined at t his time) Start: 12-17-2024 Urine microalbumin profile DTaP,Tdap,Td Vaccine (1 - Tdap) [facility] Comment on above: Postponed from 1984 (Declined at t his time) Start: 11-26-2024 End: 11-26-2024 Patient encounter procedure 11/26/2024 8:40 AM EDT Office Visit [facility] [place] [address] [place] [address] Shahriar Brown APRN.NURSE STAFF [address] [place] [address] 3 month follow up [facility] [place] Comment on above: 3 month follow up Start: 11-25-2024 Hemoglobin A1c measurement HbA1C [facility] Start: 11-24-2024 End: 11-24-2024 Patient encounter procedure 11/24/2024 8:00 AM EDT Office Visit [facility] [place] [address] [place] [address] Shahriar Brown APRN.NURSE STAFF [address] [facility] [place] [address] 3 month follow up [facility] [place] Comment on above: 3 month follow up Start: 11-03-2024 Influenza vaccination Influenza Vaccine (#1) [facility] Comment on above: Postponed from 01/06/2024 (Declined at t his time) Start: 10-31-2024 Acid Fast Bacilli Culture Acid Fast Bacilli Culture [facility] Start: 10-31-2024 Acid Fast Bacilli Smear Acid Fast Bacilli Smear [facility] Start: 10-31-2024 Acid fast bacilli culture [facility] Start: 10-30-2024 Acid Fast Bacilli Culture Acid Fast Bacilli Culture [facility] Start: 10-30-2024 Acid Fast Bacilli Smear Acid Fast Bacilli Smear [facility] Start: 10-30-2024 Acid fast bacilli culture [facility] Start: 10-28-2024 Acid Fast Bacilli Culture Acid Fast Bacilli Culture [facility] Start: 10-28-2024 Acid Fast Bacilli Smear Acid Fast Bacilli Smear [facility] Start: 10-28-2024 Microscopic observation [Identifier] in Unspecified specimen by Gram stain [facility] Start: 10-28-2024 Respiratory Culture Respiratory Culture [facility] Start: 10-28-2024 Acid fast bacilli culture [facility] Start: 08-27-2024 End: 08-27-2024 Patient encounter procedure 08/27/2024 9:20 AM EDT Office Visit [facility] [place] [address] [place] [address] Shahriar Brown APRN.NURSE STAFF [address] [place] [address] 3 month follow up [facility] [place] Comment on above: 3 month follow up Start: 08-08-2024 Annual PCP Team Chronic Disease Visit Annual PCP Team Chronic Disease Visit [facility] Start: 07-04-2024 Annual PCP Team Chronic Disease Visit Annual PCP Team Chronic Disease Visit [facility] Start: 06-25-2024 Screening for malignant neoplasm of colon Fecal Occult Blood [facility] Start: 06-19-2024 Hemoglobin A1c measurement HbA1C [facility] Start: 06-17-2024 Inf agent det nucleic acid clostridium amp probe C DIFF AMPLIFIED PROBE [facility] Start: 06-13-2024 Hepatitis B surface antibody level LDL Cholesterol [facility] Start: 06-10-2024 End: 06-10-2024 Patient encounter procedure 06/10/2024 8:40 AM EST Office Visit [facility] [place] [address] [place] [address] Anabela Angulo PA-C [address] [place] [address] vertigo dizziness and lightheadness, triaged see TE [facility] [place] Comment on above: vertigo dizziness and lightheadness, tri aged see TE Start: 05-28-2024 End: 08-27-2024 Basic metabolic 2000 panel - Serum or Plasma [facility] Work Phone: Comment on above: Expected: 05/28/2024, Expires: Start: 05-28-2024 End: 05-28-2024 Patient encounter procedure 05/28/2024 12:20 PM EST Office Visit [facility] [place] [address] [place] [address] Shahriar Brown APRN.NURSE STAFF [address] [place] [address] 2 week follow up, EGD follow up [facility] [place] Comment on above: 2 week follow up, EGD follow up Start: 05-23-2024 Annual PCP Team Chronic Disease Visit Annual PCP Team Chronic Disease Visit [facility] Start: 05-14-2024 Egd removal tumor polyp/other lesion snare tech EGD REMOVE LESION SNARE [facility] Start: 05-14-2024 Egd transoral control bleeding any method EGD CONTROL BLEEDING ANY [facility] Start: 05-14-2024 End: 05-14-2024 Patient encounter procedure 05/14/2024 9:40 AM EST Office Visit [facility] [place] [address] [place] [address] Shahriar Brown APRN.NURSE STAFF [address] [place] [address] 3 month follow up [facility] [place] Comment on above: 3 month follow up Start: 05-14-2024 Patient discharge [facility] Start: 05-11-2024 [facility] Start: 05-10-2024 End: 05-10-2024 Administration of blood product [facility] Start: 04-29-2024 End: 07-29-2024 Lipid 1996 panel - Serum or Plasma LIPID PANEL BASIC Lab Routine Diabetes (HCC) Expected: 04/29/2024, Expires: 07/29/2024 [facility] Work Phone: Comment on above: Expected: 04/29/2024, Expires: Start: 03-28-2024 Annual PCP Team Chronic Disease Visit Annual PCP Team Chronic Disease Visit [facility] Start: 03-28-2024 Colorectal Cancer Screening Colorectal Cancer Screening [facility] Comment on above: Postponed from 2010 (Declined at t his time) Start: 03-28-2024 Covid-19 Vaccine () Covid-19 Vaccine (2022-) [facility] Comment on above: Postponed from 01/05/2023 (Declined at t his time) Start: 03-28-2024 Screening for malignant neoplasm of colon Colorectal Cancer Screening [facility] Comment on above: Postponed from 2010 (Declined at t his time) Start: 03-12-2024 Annual PCP Team Chronic Disease Visit Annual PCP Team Chronic Disease Visit [facility] Start: 03-05-2024 End: 06-04-2024 CBC W Auto Differential panel - Blood COMPLETE BLOOD COUNT AND DIFFERENTIAL Lab Routine Anemia, unspecified type Expected: 03/05/2024 (Approximate), Expires: 06/04/2024 [facility] Work Phone: Comment on above: Expected: 03/05/2024 (Approximate), Expi res: 06/04/2024 Start: 02-29-2024 Annual PCP Team Chronic Disease Visit Annual PCP Team Chronic Disease Visit [facility] Start: 02-14-2024 End: 02-14-2024 Patient encounter procedure 02/14/2024 2:20 PM EDT Office Visit [facility] [place] [address] [place] [address] Shahriar Brown APRN.NURSE STAFF [address] [place] [address] 4 week follo up fatigue [facility] [place] Comment on above: 4 week follo up fatigue Start: 01-21-2024 End: 01-21-2024 Patient encounter procedure 01/21/2024 2:20 PM EDT Office Visit OB/Gynecology [address] [place] [address] Chhaya Crowe MD [address] [place] [address] annual OB/Gynecology Comment on above: annual Start: 01-17-2024 End: 01-17-2024 Patient encounter procedure 01/17/2024 1:20 PM EDT Office Visit [facility] [place] [address] [place] [address] Shahriar Brown APRN.NURSE STAFF [address] [place] [address] 4 week follow up [facility] [place] Comment on above: 4 week follow up Start: 01-06-2024 Covid-19 Vaccine () Covid-19 Vaccine () [facility] Start: 01-06-2024 Influenza vaccination [facility] Start: 01-01-2024 End: 01-01-2024 Patient encounter procedure 01/01/2024 11:30 AM EDT Office Visit [facility] [address] [place] [id number] Mally Herron APRN-NURSE STAFF [address] [id number] [facility] Start: 12-25-2023 End: 12-25-2023 Patient encounter procedure 12/25/2023 8:30 AM EDT Appointment Mammogram [address] [place] [address] Encounter for screening mammogram for breast cancer [Z12.31] Mamm[facility] Comment on above: Encounter for screening mammogram for br east cancer [Z12.31] Start: 12-21-2023 ANNUAL PCP TEAM CHRONIC DISEASE VISIT ANNUAL PCP TEAM CHRONIC DISEASE VISIT [facility] Start: 12-18-2023 End: 03-18-2024 Ferritin [Mass/volume] in Serum or Plasma [facility] Comment on above: Expected: 12/18/2023, Expires: Start: 12-18-2023 End: 03-18-2024 Hemoglobin A1c in Blood [facility] Comment on above: Expected: 12/18/2023, Expires: Start: 12-18-2023 End: 03-18-2024 Iron and Iron binding capacity panel - Serum or Plasma [facility] Comment on above: Expected: 12/18/2023, Expires: Start: 12-18-2023 End: 03-18-2024 Microalbumin/Creatinine [Mass Ratio] in Urine [facility] Work Phone: Comment on above: Expected: 12/18/2023, Expires: Start: 12-18-2023 End: 03-18-2024 Thyrotropin [Units/volume] in Serum or Plasma [facility] Comment on above: Expected: 12/18/2023, Expires: Start: 12-18-2023 End: 12-18-2023 Patient encounter procedure 12/18/2023 8:00 AM EDT Office Visit [facility] [place] [address] [facility] [place] [address] Shahriar Brown APRN.NURSE STAFF [address] [facility] [place] [address] follow up visit [facility] [place] Comment on above: follow up visit Start: 12-15-2023 ANNUAL PCP TEAM CHRONIC DISEASE VISIT ANNUAL PCP TEAM CHRONIC DISEASE VISIT [facility] Start: 12-12-2023 Hemoglobin A1c measurement HbA1C [facility] Start: 12-08-2023 Hepatitis B screening URINE ALBUMIN:CREATININE RATIO [facility] Start: 12-08-2023 Hepatitis B surface antibody level LDL CHOLESTEROL [facility] Start: 12-07-2023 End: 12-07-2023 Patient encounter procedure 12/07/2023 9:20 AM EDT Office Visit [facility] [place] [address] [facility] [place] [address] Shahriar Brown APRN.NURSE STAFF [address] [facility] [place] [address] Follow up, ablasion [facility] [place] Comment on above: Follow up, ablasion Start: 11-12-2023 End: 11-12-2023 Patient encounter procedure 11/12/2023 7:40 AM EDT Office Visit [facility] [place] [address] [facility] [place] [address] Shahriar Brown APRN.NURSE STAFF [address] [facility] [place] [address] 3 month follow up [facility] [place] Comment on above: 3 month follow up Start: 11-10-2023 Mammography [facility] Start: 11-10-2023 Screening for malignant neoplasm of breast Mammogram Screening [facility] Start: 11-08-2023 End: 09-26-2024 Cardiac telemetry MOBILE CARDIAC TELEMETRY ECG Routine Paroxysmal atrial fibrillation Expected: 11/08/2023, Expires: 09/26/2024 [facility] Comment on above: Expected: 11/08/2023, Expires: Start: 11-04-2023 Influenza vaccination Influenza Vaccine (#1) [place] Jaylene [facility]ckett Comment on above: Postponed from 01/05/2023 (Declined at t his time) Start: 10-24-2023 Glaucoma screening Dilated Retinal Exam [facility] Start: 10-24-2023 Hepatitis C antibody, confirmatory test DILATED RETINAL EXAM [facility] Start: 10-16-2023 End: 10-16-2023 Patient encounter procedure 10/16/2023 10:40 AM EDT Office Visit [facility] [place] [address] [place] [address] [place], [place] [id number] Anabela Angulo PA-C [address] [place] [address] [place], [place] [phone] Mole that is red and irritated. See TE 10/15/23. [facility] [place] Comment on above: Mole that is red and irritated. See TE . Start: 10-13-2023 BP CONTROLLED (<130/80) BP CONTROLLED (<130/80) [facility] Start: 10-02-2023 End: 01-01-2024 Bacteria identified in Urine by Culture URINE CULTURE Microbiology Routine UTI symptoms Expected: 10/02/2023, Expires: 01/01/2024 [facility] Comment on above: Expected: 10/02/2023, Expires: Start: 10-02-2023 End: 01-01-2024 Urinalysis complete panel - Urine URINALYSIS, WITH MICROSCOPIC Lab Routine UTI symptoms Expected: 10/02/2023, Expires: 01/01/2024 [facility] Work Phone: Comment on above: Expected: 10/02/2023, Expires: Start: 09-27-2023 End: 09-27-2023 Ephys evl trnsptl tx atrial fib isolat pulm vein ABLATION SCHED INTERCARDIAC A-FIB TRANSEPTAL BY PULM VEIN ISOLATION W/EP EVAL ([id number]) Paroxysmal atrial fibrillation 09/27/2023 8:19 AM EDT [facility] EP Start: 09-15-2023 ANNUAL PCP TEAM CHRONIC DISEASE VISIT ANNUAL PCP TEAM CHRONIC DISEASE VISIT [facility] Start: 09-15-2023 COVID-19 VACCINE (3 - Booster for Moderna series) COVID-19 VACCINE (3 - Booster for Moderna series) [facility] Comment on above: Postponed from 10/29/2020 (Declined at t his time) Start: 09-15-2023 COVID-19 VACCINE (3 - Moderna series) COVID-19 VACCINE (3 - Moderna series) [facility] Comment on above: Postponed from 10/29/2020 (Declined at t his time) Start: 09-15-2023 HEPATITIS B (1 of 3 - 3-dose series) HEPATITIS B (1 of 3 - 3-dose series) [facility] Comment on above: Postponed from 1965 (Declined at t his time) Start: 09-15-2023 Hepatitis B Vaccine (1 of 3 - 19+ 3-dose series) Hepatitis B Vaccine (1 of 3 - 19+ 3-dose series) [facility] Comment on above: Postponed from 1984 (Declined at t his time) Start: 09-15-2023 Hepatitis B Vaccine (1 of 3 - 3-dose series) Hepatitis B Vaccine (1 of 3 - 3-dose series) [facility] Comment on above: Postponed from 1965 (Declined at t his time) Start: 09-15-2023 HIV SCREENING HIV SCREENING [facility] Comment on above: Postponed from 09/13/1983 (Declined at t his time) Start: 09-15-2023 HIV screening HIV Screening [facility] Comment on above: Postponed from 09/13/1983 (Declined at t his time) Start: 09-15-2023 HPV TESTING HPV TESTING [facility] Comment on above: Postponed from 09/13/1995 (Declined at t his time) Start: 09-15-2023 PNEUMOCOCCAL (1 - PCV) PNEUMOCOCCAL (1 - PCV) [facility] Comment on above: Postponed from 09/13/1971 (Declined at t his time) Start: 09-15-2023 Pneumococcal vaccination [facility] Comment on above: Postponed from 09/13/1971 (Declined at t his time) Start: 09-15-2023 Screening for malignant neoplasm of cervix HPV Testing [facility] Comment on above: Postponed from 09/13/1995 (Declined at t his time) Start: 09-15-2023 SHINGRIX VACCINE (1 of 2) SHINGRIX VACCINE (1 of 2) [facility] Comment on above: Postponed from 09/13/2015 (Declined at t his time) Start: 09-15-2023 Urine microalbumin profile [facility] tricia Comment on above: Postponed from 1984 (Declined at t his time) Start: 09-05-2023 ANNUAL PCP TEAM CHRONIC DISEASE VISIT ANNUAL PCP TEAM CHRONIC DISEASE VISIT [facility] Start: 08-30-2023 Hemoglobin A1c measurement HbA1C [facility] Start: 08-30-2023 Hemoglobin A1c/Hemoglobin.total in Blood HbA1C [facility] Start: 08-18-2023 ANNUAL PCP TEAM CHRONIC DISEASE VISIT ANNUAL PCP TEAM CHRONIC DISEASE VISIT [facility] Start: 07-18-2023 ANNUAL PCP TEAM CHRONIC DISEASE VISIT ANNUAL PCP TEAM CHRONIC DISEASE VISIT [facility] Start: 07-18-2023 BP CONTROLLED (<130/80) BP CONTROLLED (<130/80) [facility] Start: 07-06-2023 End: 10-05-2023 CBC W Auto Differential panel - Blood CBC + DIFF Lab Routine Anemia, unspecified type Expected: 07/06/2023, Expires: 10/05/2023 [facility] Work Phone: Comment on above: Expected: 07/06/2023, Expires: Start: 06-26-2023 ANNUAL PCP TEAM CHRONIC DISEASE VISIT ANNUAL PCP TEAM CHRONIC DISEASE VISIT [facility] Start: 06-26-2023 Screening for malignant neoplasm of colon Colorectal Cancer Screening [facility] Start: 06-21-2023 [facility] Start: 06-15-2023 ANNUAL PCP TEAM CHRONIC DISEASE VISIT ANNUAL PCP TEAM CHRONIC DISEASE VISIT [facility] Start: 05-07-2023 Behavioral Health Screening Behavioral Health Screening [facility] Start: 05-07-2023 Depression Assessment Depression Assessment [facility] Start: 04-29-2023 [facility] Start: 04-29-2023 [facility] Start: 04-17-2023 ANNUAL PCP TEAM CHRONIC DISEASE VISIT ANNUAL PCP TEAM CHRONIC DISEASE VISIT [facility] Start: 03-29-2023 [facility] Start: 03-21-2023 Patient referral [facility] Work Phone: Start: 03-17-2023 Hemoglobin A1c/Hemoglobin.total in Blood HBA1C [facility] Start: 02-27-2023 [facility] Start: 02-27-2023 [facility] Start: 02-14-2023 ANNUAL PCP TEAM CHRONIC DISEASE VISIT ANNUAL PCP TEAM CHRONIC DISEASE VISIT [facility] Start: 01-21-2023 Colonoscopy COLONOSCOPY [facility] Start: 01-21-2023 COLORECTAL CANCER SCREENING COLORECTAL CANCER SCREENING [facility] Start: 01-21-2023 Screening for malignant neoplasm of colon Colonoscopy [facility] Start: 01-19-2023 ANNUAL PCP TEAM CHRONIC DISEASE VISIT ANNUAL PCP TEAM CHRONIC DISEASE VISIT [facility] Start: 01-19-2023 Hepatitis B screening URINE ALBUMIN:CREATININE RATIO [facility] Start: 01-19-2023 Hepatitis B surface antibody level LDL CHOLESTEROL [facility] Start: 01-05-2023 Covid-19 Vaccine ( season) Covid-19 Vaccine ( season) [facility] Start: 01-05-2023 Influenza vaccination [facility] Start: 12-31-2022 [facility] Start: 12-30-2022 Electrocardiographic procedure [facility] Start: 12-29-2022 Electrocardiographic procedure [facility] Start: 12-28-2022 Electrocardiographic procedure [facility] Start: 12-28-2022 Patient discharge [facility] Start: 12-27-2022 Following clinical pathway protocol [facility] Start: 12-27-2022 Patient referral [facility] Work Phone: Start: 12-27-2022 Ambulation without limitation [facility] Start: 12-27-2022 Cardiac monitoring [facility] Start: 12-27-2022 Cardiac rehabilitation - phase 1 [facility] Start: 12-27-2022 Cardiac rehabilitation - phase 2 [facility] Start: 12-27-2022 Notification of physician [facility] Start: 12-27-2022 Oxygen therapy [facility] Start: 12-27-2022 Patient discharge [facility] Start: 12-27-2022 Taking patient vital signs [facility] Start: 12-27-2022 Vascular disease risk assessment [facility] Start: 12-27-2022 Vital signs measurements [facility] Start: 12-27-2022 End: 12-27-2022 [facility] Start: 12-27-2022 Admission procedure [facility] Start: 11-28-2022 End: 01-28-2023 ALBUMIN/CREAT RATIO RND UR ALBUMIN/CREAT RATIO RND UR Lab Routine Diabetes (HCC) Expected: 11/28/2022, Expires: 01/28/2023 [facility] Work Phone: Comment on above: Expected: 11/28/2022, Expires: 3 Start: 11-28-2022 End: 01-28-2023 Lipid 1996 panel - Serum or Plasma LIPID PANEL BASIC Lab Routine Diabetes (HCC) Expected: 11/28/2022, Expires: 01/28/2023 [facility] Work Phone: Comment on above: Expected: 11/28/2022, Expires: 3 Start: 10-13-2022 ANNUAL PCP TEAM CHRONIC DISEASE VISIT ANNUAL PCP TEAM CHRONIC DISEASE VISIT [facility] Start: 10-12-2022 Following clinical pathway protocol [facility] Start: 09-22-2022 Mammography MAMMOGRAM [facility] Start: 09-19-2022 ANNUAL PCP TEAM CHRONIC DISEASE VISIT ANNUAL PCP TEAM CHRONIC DISEASE VISIT [facility] Start: 09-14-2022 End: 11-14-2022 Comprehensive metabolic 2000 panel - Serum or Plasma [facility] Work Phone: Comment on above: Expected: 09/14/2022, Expires: 3 Start: 09-14-2022 End: 11-14-2022 Hemoglobin A1c in Blood [facility] Work Phone: Comment on above: Expected: 09/14/2022, Expires: 3 Start: 2022 Hemoglobin A1c/Hemoglobin.total in Blood HBA1C [facility] Start: 08-28-2022 End: 10-28-2022 Thyroglobulin Ab [Units/volume] in Serum or Plasma THYROGLOBULIN AB Lab Routine Graves disease History of Srini thyroiditis Expected: 08/28/2022, Expires: 10/28/2022 [facility] Work Phone: Comment on above: Expected: 08/28/2022, Expires: 3 Start: 08-28-2022 End: 10-28-2022 THYROID PEROXIDASE ANTIBODY BLOOD THYROID PEROXIDASE ANTIBODY BLOOD Lab Routine Graves disease History of Srini thyroiditis Expected: 08/28/2022, Expires: 10/28/2022 [facility] Work Phone: Comment on above: Expected: 08/28/2022, Expires: Start: 08-28-2022 End: 10-28-2022 Thyrotropin [Units/volume] in Serum or Plasma TSH BLD Lab Routine Graves disease History of Srini thyroiditis Expected: 08/28/2022, Expires: 10/28/2022 [facility] Work Phone: Comment on above: Expected: 08/28/2022, Expires: 3 Start: 08-28-2022 End: 10-28-2022 Thyroxine (T4) free [Mass/volume] in Serum or Plasma T4 FREE/FREE THYROX Lab Routine Graves disease History of Srini thyroiditis Expected: 08/28/2022, Expires: 10/28/2022 [facility] Work Phone: Comment on above: Expected: 08/28/2022, Expires: Start: 08-28-2022 End: 10-28-2022 Triiodothyronine (T3) [Mass/volume] in Serum or Plasma T3 BLD Lab Routine Graves disease History of Srini thyroiditis Expected: 08/28/2022, Expires: 10/28/2022 [facility] Work Phone: Comment on above: Expected: 08/28/2022, Expires: 3 Start: 07-19-2022 Hemoglobin A1c/Hemoglobin.total in Blood HBA1C [facility] Start: 07-17-2022 End: 07-31-2022 Influenza virus A and B RNA and SARS-CoV-2 (COVID-19) N gene panel - Respiratory specimen by CAROLINA with probe detection [facility] Work Phone: Comment on above: Expected: 07/17/2022, Expires: 3 Start: 06-16-2022 Adult depression screening assessment DEPRESSION SCREENING [facility] Start: 06-16-2022 ANNUAL PCP TEAM CHRONIC DISEASE VISIT ANNUAL PCP TEAM CHRONIC DISEASE VISIT [facility] Start: 06-16-2022 COVID-19 VACCINE (3 - Booster for Moderna series) COVID-19 VACCINE (3 - Booster for Moderna series) [facility] Comment on above: Postponed from 02/03/2021 (Declined at t his time) Postponed from 10/29 (Declined at this time) Start: 06-16-2022 HIV SCREENING HIV SCREENING [facility] Comment on above: Postponed from 09/13/1983 (Declined at t his time) Start: 06-16-2022 HPV TESTING HPV TESTING [facility] Comment on above: Postponed from 09/13/1995 (Declined at t his time) Start: 06-16-2022 ONE PNEUMOVAX PRIOR TO AGE 65 ONE PNEUMOVAX PRIOR TO AGE 65 [facility] Comment on above: Postponed from 1981 (Declined at t his time) Start: 06-16-2022 PNEUMOCOCCAL (1 - PCV) PNEUMOCOCCAL (1 - PCV) [facility] Comment on above: Postponed from 09/13/1971 (Declined at t his time) Start: 06-16-2022 SHINGRIX VACCINE (1 of 2) SHINGRIX VACCINE (1 of 2) [facility] Comment on above: Postponed from 09/13/2015 (Declined at t his time) Start: 06-16-2022 Urine microalbumin profile DTAP,TDAP,TD (1 - Tdap) [facility] Comment on above: Postponed from 1984 (Declined at t his time) Start: 06-15-2022 End: 08-15-2022 C reactive protein [Mass/volume] in Serum or Plasma [facility] Work Phone: Comment on above: Expected: 06/15/2022, Expires: 3 Start: 06-15-2022 End: 08-15-2022 Comprehensive metabolic 2000 panel - Serum or Plasma [facility] Work Phone: Comment on above: Expected: 06/15/2022, Expires: 3 Start: 06-15-2022 End: 08-15-2022 Magnesium [Mass/volume] in Serum or Plasma [facility] Work Phone: Comment on above: Expected: 06/15/2022, Expires: 3 Start: 06-15-2022 End: 08-15-2022 Thyrotropin [Units/volume] in Serum or Plasma [facility] Work Phone: Comment on above: Expected: 06/15/2022, Expires: 3 Start: 06-15-2022 End: 08-15-2022 Thyroxine (T4) free [Mass/volume] in Serum or Plasma [facility] Work Phone: Comment on above: Expected: 06/15/2022, Expires: 3 Start: 06-15-2022 End: 08-15-2022 Triiodothyronine (T3) [Mass/volume] in Serum or Plasma [facility] Work Phone: Comment on above: Expected: 06/15/2022, Expires: 3 Start: 05-07-2022 DEPRESSION ASSESSMENT DEPRESSION ASSESSMENT [facility] Start: 03-23-2022 US Kidney - bilateral and Urinary bladder [facility] Work Phone: Start: 03-23-2022 US urinary tract Kidney and Bladder [facility] Work Phone: Start: 03-17-2022 Procedure [facility] Start: 03-07-2022 3 comp foot exam [facility] Start: 03-07-2022 Diabetic foot examination Diabetic Foot Exam [facility] Start: 02-07-2022 End: 02-21-2022 Influenza virus A and B RNA and SARS-CoV-2 (COVID-19) N gene panel - Respiratory specimen by CAROLINA with probe detection COVID WITH FLUA+B, ROUTINE Microbiology Routine Suspected COVID-19 virus infection Expected: 02/07/2022, Expires: 02/21/2022 [facility] Work Phone: Comment on above: Expected: 02/07/2022, Expires: 2 Start: 01-19-2022 End: 03-21-2022 ALBUMIN/CREAT RATIO RND UR [facility] Work Phone: Comment on above: Expected: 01/19/2022, Expires: 2 Start: 01-19-2022 End: 03-21-2022 Comprehensive metabolic 2000 panel - Serum or Plasma [facility] Work Phone: Comment on above: Expected: 01/19/2022, Expires: 2 Start: 01-19-2022 End: 03-21-2022 Lipid 1996 panel - Serum or Plasma [facility] Work Phone: Comment on above: Expected: 01/19/2022, Expires: 2 Start: 01-19-2022 End: 03-21-2022 Urinalysis complete panel - Urine [facility] Work Phone: Comment on above: Expected: 01/19/2022, Expires: 2 Start: 01-13-2022 Hemoglobin A1c/Hemoglobin.total in Blood HBA1C [facility] Start: 01-05-2022 Influenza vaccination INFLUENZA (#1) [facility] Start: 12-24-2021 Hepatitis B screening URINE ALBUMIN:CREATININE RATIO [facility] Start: 12-24-2021 Hepatitis B surface antibody level LDL CHOLESTEROL [facility] Start: 11-20-2021 End: 12-04-2021 Influenza virus A and B RNA and SARS-CoV-2 (COVID-19) N gene panel - Respiratory specimen by CAROLINA with probe detection COVID WITH FLUA+B, ROUTINE Microbiology Routine Exposure to COVID-19 virus Expected: 11/20/2021, Expires: 12/04/2021 [facility] Work Phone: Comment on above: Expected: 11/20/2021, Expires: 2 Start: 11-03-2021 Hemoglobin A1c/Hemoglobin.total in Blood HBA1C [facility] Start: 10-24-2021 Ultrasound elastography [facility] Work Phone: Start: 10-13-2021 End: 12-13-2021 Amylase [Enzymatic activity/volume] in Serum or Plasma [facility] Work Phone: Comment on above: Expected: 10/13/2021, Expires: 2 Start: 10-13-2021 End: 12-13-2021 Comprehensive metabolic 2000 panel - Serum or Plasma [facility] Work Phone: Comment on above: Expected: 10/13/2021, Expires: 2 Start: 10-13-2021 End: 12-13-2021 Lipase [Enzymatic activity/volume] in Serum or Plasma [facility] Work Phone: Comment on above: Expected: 10/13/2021, Expires: 2 Start: 05-07-2021 DEPRESSION ASSESSMENT DEPRESSION ASSESSMENT [facility] Start: 03-15-2021 Mammography MAMMOGRAM [facility] Start: 03-09-2021 Hepatitis C antibody, confirmatory test DILATED RETINAL EXAM [facility] Start: 10-29-2020 COVID-19 VACCINE (3 - Booster for Moderna series) COVID-19 VACCINE (3 - Booster for Moderna series) [facility] Start: 01-06-2020 Influenza vaccination Flu vaccine (#1) [place], [place] Start: 09-13-2015 Screening for malignant neoplasm of breast Breast cancer screen [place], [place] Start: 09-13-2015 Screening for malignant neoplasm of colon Colon cancer screen colonoscopy [place] Start: 09-13-2015 Shingles Vaccine (1 of 2) Shingles Vaccine (1 of 2) [place] Start: 09-13-2015 SHINGRIX VACCINE (1 of 2) SHINGRIX VACCINE (1 of 2) [facility] Start: 09-13-2015 Zoster vaccine hzv live for subcutaneous use ZOSTER (SHINGLES) VACCINE (1 of 2) [facility] Start: 2010 COLOGUARD (FIT-DNA) COLOGUARD (FIT-DNA) [facility] Start: [address] COLONOGRAPHY [facility] Start: 2010 FECAL OCCULT BLOOD FECAL OCCULT BLOOD [facility] Start: 2010 Screening for malignant neoplasm of colon [facility] Start: 2010 SIGMOIDOSCOPY SIGMOIDOSCOPY [facility] Start: 2005 Lipid panel [facility] Start: 2005 Screening for malignant neoplasm of breast MAMMOGRAM SCREENING DISCUSSION [facility] Start: 09-13-1995 HPV TESTING HPV TESTING [facility] Start: 09-13-1995 Screening for malignant neoplasm of cervix HPV Testing [facility] Start: 1986 Screening for malignant neoplasm of cervix [facility] Start: 1984 DTaP/Tdap/Td vaccine (1 - Tdap) DTaP/Tdap/Td vaccine (1 - Tdap) [place] Start: 1984 HEPATITIS B (1 of 3 - Risk 3-dose series) HEPATITIS B (1 of 3 - Risk 3-dose series) [facility] Start: 1984 Hepatitis B vaccination HEP B VACCINE (1 of 3 - 19+ 3-dose series) [facility] Start: 1984 Hepatitis B Vaccine (1 of 3 - 19+ 3-dose series) Hepatitis B Vaccine (1 of 3 - 19+ 3-dose series) [facility] Start: 1984 Pneumococcal Vaccine: 50+ (1 of 2 - PCV) Pneumococcal Vaccine: 50+ (1 of 2 - PCV) [facility] Start: 1984 Third diphtheria, tetanus and acellular pertussis (DTaP) vaccination TDAP (ADULT) [facility] Start: 1984 [facility] Start: 09-13-1983 Anxiety Screening Anxiety Screening [facility] Start: 09-13-1983 BP CONTROLLED (<130/80) BP CONTROLLED (<130/80) [facility] Start: 09-13-1983 Depression Screening Depression Screening [facility] Start: 09-13-1983 HIV SCREENING HIV SCREENING [facility] Start: 09-13-1983 HIV screening HIV Screening [facility] Start: 1980 HIV screening [facility] Start: 09-13-1971 PNEUMOCOCCAL (1 - PCV) PNEUMOCOCCAL (1 - PCV) [facility] Start: 09-13-1971 Pneumococcal vaccination Pneumococcal Vaccine (1 of 2 - PCV) [facility] Start: 1965 HEPATITIS B (1 of 3 - 3-dose series) HEPATITIS B (1 of 3 - 3-dose series) [facility] Start: 1965 Hepatitis C screening HEPATITIS C VIRUS SCREENING [facility] Start: 1965 Tetanus vaccination TETANUS [facility] Albumin/Globulin [Ma ss Ratio] in Serum or Plasma by Electrophoresis [facility] Work Phone: [id number]. tumor marker [Units/volume] in Serum or Plasma [facility] Work Phone: Bacteria identified in Sputum by Respiratory culture [facility] Bacteria identified in Urine by Culture URINE CULTURE Microbiology Routine Frequency of urination Ordered: 10/10/2021 [facility] Work Phone: Comment on above: Ordered: 10/10/2021 Bacteria identified in Urine by Culture URINE CULTURE Microbiology Routine UTI symptoms 02/14/2022 1:31 PM EDT [facility] Work Phone: BACTERIAL VAGINOSIS AMPLIFICATION BACTERIAL VAGINOSIS AMPLIFICATION Lab Routine Vaginal itching 10/12/2022 11:24 AM EDT [facility] Work Phone: FLORENTIN / TRICHOMONA S AMPLIFICATION FLORENTIN / TRICHOMONAS AMPLIFICATION Microbiology Routine Vaginal itching 10/12/2022 11:24 AM EDT [facility] Work Phone: Cardiovascular stress testing [facility] Ceruloplasmin [Mass/ volume] in Serum or Plasma [facility] Work Phone: Complete blood count [facility] Cytomegalovirus DNA [Presence] in Unspecified specimen by CAROLINA with probe detection [facility] Work Phone: End: 01-10-2025 DBT Breast - bilateral screening MIN SCREENING W ROBERT Radiology Routine Encounter for screening mammogram for breast cancer 1 Occurrences starting 12/12/2023 until 01/10/2025 [facility] Work Phone: Comment on above: 1 Occurrences starting 12/12/2023 until 01/10/2025 End: 02-19-2025 DBT Breast - bilateral screening MIN SCREENING W ROBERT Radiology Routine Encounter for screening mammogram for breast cancer 1 Occurrences starting 01/21/2024 until 02/19/2025 [facility] Work Phone: Comment on above: 1 Occurrences starting 01/21/2024 until 02/19/2025 DDI VIBRATION CONTRO LLED TRANSIENT ELASTOGRAPHY (VCTE) DDI VIBRATION CONTROLLED TRANSIENT ELASTOGRAPHY (VCTE) Procedures Routine Elevated liver enzymes Fatty liver Ordered: 10/17/2021 [facility] Work Phone: Comment on above: Ordered: 10/17/2021 End: 10-26-2022 Diagnostic mammography computer-aided detcj uni MIN DIAGNOSTIC RT Radiology Routine Abnormal mammogram 1 Occurrences starting 09/26/2021 until 10/26/2022 [facility] Work Phone: Comment on above: 1 Occurrences starting 09/26/2021 until 10/26/2022 End: 06-15-2023 ECG COMPLETE ECG COMPLETE ECG Routine Chest pain, unspecified type Palpitations 1 Occurrences starting 06/15/2022 until 06/15/2023 [facility] Work Phone: Comment on above: 1 Occurrences starting 06/15/2022 until 06/15/2023 End: 06-15-2023 Echocardiography ECHO Cardiology Routine Chest pain, unspecified type Palpitations 1 Occurrences starting 06/15/2022 until 06/15/2023 [facility] Work Phone: Comment on above: 1 Occurrences starting 06/15/2022 until 06/15/2023 Electrophoresis: albumin [facility] Work Phone: Electrophoresis: [id number] [facility] Work Phone: Electrophoresis: [id number] [facility] Work Phone: Electrophoresis: randy ma globulin [facility] Work Phone: Thais Bacon virus c apsid IgG Ab [Units/volume] in Serum [facility] Work Phone: Thais Bacon virus c apsid IgM Ab [Units/volume] in Serum [facility] Work Phone: Thais Bacon virus n uclear IgG Ab [Units/volume] in Cerebral spinal fluid [facility] Work Phone: Thais-Bacon virus s erologic test [facility] Work Phone: Gliadin peptide IgA Ab [Units/volume] in Serum [facility] Work Phone: Gliadin peptide IgG Ab [Units/volume] in Serum [facility] Work Phone: Globulin measurement [facility] Work Phone: IgA [Mass/volume] in Serum or Plasma [facility] Work Phone: Influenza virus A an d B RNA and SARS-CoV-2 (COVID-19) N gene panel - Respiratory specimen by CRAOLINA with probe detection COVID WITH FLUA+B, ROUTINE Microbiology Routine Upper respiratory symptom 02/14/2022 1:31 PM EDT [facility] Work Phone: Lipid 1996 panel - S dianna or Plasma [facility] End: 11-11-2023 MIN SCREENING W ROBERT MIN SCREENING W ROBERT Radiology Routine Encounter for screening mammogram for breast cancer Dense breast tissue on mammogram 1 Occurrences starting 10/12/2022 until 11/11/2023 [facility] Work Phone: Comment on above: 1 Occurrences starting 10/12/2022 until 11/11/2023 Mycobacterium sp zac ntified in Unspecified specimen by Organism specific culture [facility] Mycobacterium sp zac ntified in Unspecified specimen by Organism specific culture [facility] Mycobacterium sp zac ntified in Unspecified specimen by Organism specific culture [facility] Mycoplasma IgM measurement W [facility] Mycoplasma pneumonia e IgG Ab [Presence] in Serum [facility] OUTSIDE VENDOR CARDI AC OUTPATIENT EXTENDED RHYTHM RECORDING (WITHOUT TELEMETRY) OUTSIDE VENDOR CARDIAC OUTPATIENT EXTENDED RHYTHM RECORDING (WITHOUT TELEMETRY) Holter Routine Chest pain, unspecified type Palpitations Ordered: 06/15/2022 [facility] Work Phone: Comment on above: Ordered: 06/15/2022 Partial thromboplast in time, activated [facility] Patient Education [facility] Work Phone: Patient referral [facility] Work Phone: Physical performance test/hailee w/reprt ea 15 min PHYSICAL PERFORMANCE TEST Procedures Routine Interstitial lung disease (HCC) Graves disease Type 2 diabetes mellitus without complication, without long-term current use of insulin (HCC) Mixed connective tissue disease (HCC) Ordered: 04/16/2024 [facility] Work Phone: Comment on above: Ordered: 04/16/2024 Procedure [facility] Work Phone: Protein electrophore sis panel - Serum or Plasma [facility] Work Phone: Prothrombin time [facility] Radionuclide imaging of perfusion of myocardium under exercise stress [facility] Radionuclide imaging of perfusion of myocardium under exercise stress [facility] Retinol [Mass/volume ] in Serum or Plasma [facility] Work Phone: SARS-CoV-2 (COVID-19 ) RNA [Presence] in Respiratory specimen by CAROLINA with probe detection 2019 CORONAVIRUS Microbiology Routine Upper respiratory symptom Ordered: 02/14/2022 [facility] Work Phone: Comment on above: Ordered: 02/14/2022 Serum protein electrophoresis [facility] Work Phone: Smooth muscle Ab [Pr esence] in Serum [facility] Work Phone: Total globulins measurement [facility] Work Phone: End: 10-14-2023 US ABD RIGHT UPPER QUADRANT US ABD RIGHT UPPER QUADRANT Radiology Routine Liver fibrosis 1 Occurrences starting 09/14/2022 until 10/14/2023 [facility] Work Phone: Comment on above: 1 Occurrences starting 09/14/2022 until 10/14/2023 End: 06-22-2023 Us breast uni real time with image limited US BREAST LTD RT Radiology Routine Abnormal mammogram 1 Occurrences starting 09/26/2021 until 10/26/2022 [facility] Work Phone: Comment on above: 1 Occurrences starting 09/26/2021 until 10/26/2022 [facility] Immunizations Immunization Date Immunization Notes Care Provider [facility] 08-27-2024 pneumococcal conjuga te (PCV20) vaccine, 20 valent (PREVNAR 20) Shahriar Older CHILLER OPERATOR.NURSE STAFF Work Phone: [facility] 08-19-2024 tetanus toxoid, reduced diphtheria toxoid, and acellular pertussis vaccine, adsorbed Krislyn Aberegg PA Work Phone: [facility] 02-26-2024 influenza, high dose seasonal, preservative-free Krislyn Aberegg PA Work Phone: [facility] 02-26-2024 influenza virus vaccine, unspecified formulation Luz Cordoba CHILLER OPERATOR.NURSE STAFF Work Phone: [facility] 02-14-2024 influenza, seasonal, injectable Shahriar Older CHILLER OPERATOR.NURSE STAFF Work Phone: [facility] 01-27-2022 influenza, high dose seasonal, preservative-free Krislyn Aberegg PA Work Phone: [facility] 01-19-2022 influenza, injectabl e, quadrivalent, contains preservative Shahriar Older CHILLER OPERATOR.NURSE STAFF Work Phone: [facility] 01-19-2022 influenza virus vaccine, unspecified formulation Shahriar Older CHILLER OPERATOR.NURSE STAFF Work Phone: [facility] 03-17-2021 influenza, injectabl e, quadrivalent, contains preservative Eladio Hoskins APRN.[facility] Work Phone: [facility] 02-14-2021 influenza, high dose seasonal, preservative-free Rosalinaaleshia nany HAWK Work Phone: [facility] 09-03-2020 COVID-19 vaccine, fu ll dose (MODERNA) Eladio Hoskins APRN.[facility] Work Phone: [facility] 08-06-2020 COVID-19 vaccine, fu ll dose (MODERNA) Eladio Hoskins APRN.[facility] Work Phone: [facility] Work Phone: 01-28-2020 influenza, injectabl e, quadrivalent, contains preservative Eladio Hoskins APRN.[facility] Work Phone: [facility] Work Phone: 02-19-2019 influenza, injectabl e, quadrivalent, contains preservative Eladio Hoskins APRN.[facility] Work Phone: [facility] Payers Date Payer Category Payer Self-pay [id number] 2023 Medicaid [id number] 2023 Unknown [id number] 2023 Private Health Insurance [id number] 2021 Unknown [employer] PPO [id number] 2021-Present [phone] [address] [place] [address] PPO [id number] 2021 Unknown [id number] .[id number] 1965 Unknown [id number] 2.16.840.1.458842.3.579.2.6 51 1965 Unknown [id number] 2.16.840.1.884847.3.579.2.5 94 1965 Unknown [id number] 2.16.840.1.865422.3.579.2.5 94 Private Health Insurance PNB [id number] Unknown [id number] Unknown [id number] Unknown [id number] 2.16.840.1.857344.3.579.2.4 62 Unknown [id number] 2.16.840.1.081549.3.579.2.4 62 Unknown [id number] 2.16.840.1.309857.3.579.2.4 62 Unknown [id number] 2.16.840.1.801997.3.579.2.4 62 Unknown [id number] 2.16.840.1.474127.3.579.2.4 62 Unknown [id number] 2.16.840.1.664171.3.579.2.4 62 Unknown [id number] 2.16.840.1.439400.3.579.2.4 62 Unknown [id number] 2.16.840.1.390432.3.579.2.4 62 Unknown [id number] 2.16.840.1.169721.3.579.2.4 62 Unknown [id number] 2.16.840.1.643248.3.579.2.4 62 Unknown [id number] 2.16.840.1.957487.3.579.2.4 62 Unknown [id number] 2.16.840.1.897047.3.579.2.4 62 Unknown [id number] 2.16.840.1.268762.3.579.2.4 62 Unknown [id number] 2.16.840.1.366050.3.579.2.4 62 Unknown [id number] 2.16.840.1.878879.3.579.2.4 62 Unknown [id number] 2.16.840.1.066237.3.579.2.4 62 Unknown [id number] 2.16.840.1.909401.3.579.2.4 62 Unknown [id number] 2.16.840.1.965373.3.579.2.4 62 Unknown [id number] 2.16.840.1.632255.3.579.2.4 62 Unknown [id number] 2.16.840.1.617290.3.579.2.4 62 Unknown [id number] 2.16.840.1.702890.3.579.2.4 62 Unknown [id number] 2.16.840.1.191605.3.579.2.4 62 Unknown [id number] 2.16.840.1.259315.3.579.2.4 62 Unknown [id number] 2.16.840.1.526368.3.579.2.4 62 Unknown [id number] 2.16.840.1.665271.3.579.2.4 62 Unknown [id number] 2.16.840.1.902890.3.579.2.4 62 Unknown [id number] 2.16.840.1.331040.3.579.2.4 62 Unknown [id number] 2.16.840.1.712603.3.579.2.4 62 Unknown [id number] 2.16.840.1.896547.3.579.2.4 62 Unknown [id number] 2.16.840.1.830630.3.579.2.4 62 Unknown [id number] 2.16.840.1.171904.3.579.2.4 62 Unknown [id number] 2.16.840.1.483646.3.579.2.4 62 Unknown [id number] 2.16.840.1.145666.3.579.2.4 62 Unknown [id number] 2.16.840.1.585737.3.579.2.4 62 Unknown [id number] 2.16.840.1.815490.3.579.2.4 62 Unknown [id number] 2.16.840.1.985630.3.579.2.4 62 Social History Date Type Detail [facility] [employer] [facility] [employer] [employer] [place] Start: 1965 Sex Assigned At Not on file [place], [place] Start: 01-22-2019 End: 07-25-2024 Tobacco smoking status NHIS Never smoked tobacco [facility] Start: 01-22-2019 End: 02-14-2022 Tobacco use and exposure Smokeless tobacco non-user [facility] Start: 06-16-2021 End: 08-27-2024 Alcohol intake Ex-drinker (finding) [facility] Start: 01-28-2020 End: 05-18-2020 History SDOH Alcohol Frequency 2 [facility] Start: 01-28-2020 End: 05-18-2020 History SDOH Alcohol Std Drinks 1 [facility] Start: 05-16-2021 History SDOH Alcohol Comment rare [facility] Start: 01-28-2020 History SDOH Social Connections Living 5 [facility] Start: 01-28-2020 History SDOH Physical Activity DPW 0 [facility] Start: 01-28-2020 History SDOH Financial 4 [facility] Start: 05-18-2020 History SDOH Housing Unable to Pay 3 [facility] Start: 01-06-2020 Education 21 [facility] Start: 1965 Sex Assigned At Female [facility] Start: 09-04-2021 End: 01-19-2022 Exposure to SARS-CoV-2 (event) Unable to assess [facility] Work Phone: Start: 2021 End: 02-23-2022 Exposure to SARS-CoV-2 (event) Not sure [facility] Start: 05-15-2020 End: 08-16-2023 Tobacco smoking status NHIS Unknown if ever smoked [facility] Start: 01-28-2020 End: 09-14-2022 History of Social function [facility] Start: 01-28-2020 End: 09-14-2022 Social connection and isolation panel [facility] Do you belong to any clubs or organizations such as jewish groups, unions, fraternal or athletic groups, or school groups? No [facility] Are you now , , , , never or living with a partner? [facility] How often to you hav e a drink containing alcohol? Monthly or less [facility] How many standard dr inks containing alcohol do you have on a typical day? 1 or 2 [facility] How often do you hav e 6 or more drinks on 1 occasion? Never [facility] How hard is it for y ou to pay for the very basics like food, housing, medical care, and heating Not very hard [facility] Do you feel stress - tense, restless, nervous, or anxious, or unable to sleep at night because your mind is troubled all the time - these days [OSQ] Only a little [facility] (I/We) worried wheth er (my/our) food would run out before (I/we) got money to buy more. Never true [facility] In the past 12 month s, has lack of transportation kept you from medical appointments or from getting medications? No [facility] Start: 01-06-2020 Gender identity Identifies as female gender (finding) [facility] Start: 01-06-2020 Sexual orientation Heterosexual (finding) [facility] Do you feel stress - tense, restless, nervous, or anxious, or unable to sleep at night because your mind is troubled all the time - these days [OSQ] Not at all [facility] (I/We) worried wheth er (my/our) food would run out before (I/we) got money to buy more. DK or Refused [facility] Start: 09-27-2023 Alcoholic beverage intake Current drinker of alcohol (finding) U [facility] Start: 01-21-2024 Alcohol Comment Rare [facility] Start: 07-28-2024 End: 08-20-2024 Sex Female (finding) [facility] Medical Equipment Procedure Code Equipment Code Equipment Original Text Equipment Identifier Dates EGD, with monitored anesthesia care Ligation clip, metallic ([id number] FDA Start: 05-14-2024 [id number], [id number] Start: 05-09-2021 Comment on above: use 1 TEST STRIP to TEST BLOOD SUGAR once daily Test blood sugar(s) 1 times daily. Dx: Type 2 DM - Controlled E11.9 Insulin: No Drug-eluting coronary artery stent, non-bioabsorbable -polymer-coated ()[id number] FDA Start: 12-27-2022 Drug-eluting coronary artery stent, non-bioabsorbable -polymer-coated ()[id number] FDA Start: 12-27-2022 Goals Date Patient Goal Desired Activity /State Functional Status Date Assessment Result Facility 12-28-2022 Functional status Bathroom Privilege [facility] Work Phone: Mental Status Date Assessment Result Facility 05-14-2024 Cognitive function Voice/Name [facility] Work Phone: 05-10-2024 Cognitive function Level Of Cons ciousness Awake;Alert;Appropriate;Follow s Commands [facility] Work Phone: 04-28-2023 Cognitive function Level Of Cons ciousness Awake;Alert;Appropriate [facility] Work Phone: 03-29-2023 Cognitive function Voice/Name [facility] Work Phone: 02-27-2023 Cognitive function Voice/Name [facility] Work Phone: 12-31-2022 Cognitive function Voice/Name [facility] Work Phone: 12-28-2022 Cognitive function Voice/Name [facility] Work Phone: 10-12-2022 Cognitive function Awake;Alert;Appropriat e [facility] Work Phone: Clinical Notes 08-08-2021 to 11-19-2024 Telephone Encounter - Julieta Campuzano MA - 11/14/2024 1:48 PM EDTTelephone Encounter - Julieta Campuzano MILAGRO - 11/14/2024 1:48 PM EDTTelephone Encounter - Shahriar Brown APRN.CNP - 11/14/2024 1:01 PM EDT Note Date & Type Note Facility 11-19-2024 Radiology Diagnostic study note [facility] Imaging Services [address] [place], [place] [id number] Chest without Contrast MR#: [id number] Acct: [id number] Name: CASSIA HOLLAND Rep #: [id number] : 1965 F 59 From: Micky Willis MD PCP: Dr. Opal Mathews MD Status: KSENIA ERVIN Study:Chest without Contrast Date of Exam: 11/17/24 Exam# [id number] Ordering Dr: Lauro Mason MD PROCEDURE: CHEST WITHOUT CONTRAST 11/17/2024 REASON FOR EXAM: IDIOPATHIC NON-SPECIFIC INTERSTITIAL PNEUMONITIS TECHNIQUE: Chest CT without contrast. Coronal and Sagittal reconstruction series were provided. One or more dose reduction techniques were used (e.g., Automated exposure control, adjustment of the mA and/or kV according to patient size, use of iterative reconstruction technique RADIATION DOSE SUMMARY: CTDlvol: 14.37 mGy DLP: 466.65 mGycm COMPARISON: Prior study dated July 28, 2024. FINDINGS: Hardware: None Lymph nodes: Mildly enlarged fat containing bilateral axillary lymph nodes. Heart and Vasculature: The heart is not enlarged. There is evidence of coronaryartery calcification. Coronary Artery Calcifications: Present Lungs and Airways: Stable increased linear markings at the lung bases with evidence of bronchiectasis more prominent at the right lung base. This is suggestive of scarring. Pleura: No evidence of pleural effusion. Upper Abdomen: Hiatal hernia Bones: Degenerative changes of the thoracic spine. CT/Chest without Contrast IMPRESSION: Coronary artery calcification (CAC) is is present Stable increased linear markings at the lung bases suggestive of scarring. Reading Location: [place] [address] CC: Dr. Opal Mathews MD; Dr. Lauro Mason MD ~ Refrigeration Insulator: Signed [facility] 11-14-2024 Telephone encount er Note Patient notified, will get lab done and if needed schedule sooner appointment. [facility] 11-14-2024 Miscellaneous Notes Formattin g of this note might be different from the original. Patient notified, will get lab done and if needed schedule sooner appointment. I have placed this but with her history numerous things could be causing her fatigue and I recommend she be seen. Thank you Shahriar Brown APRN.ANTHONY Patient calls to check on status of request from yesterday. Notified pending provider review and will be notified once there is a response to request. Marvel Rice RN Patient calling she has been feeling very exhausted past few weeks. Patient is wondering if her anemia is worse again. Patient has conference in [place] next week does not want to get sick and need blood transfusion. Patient asking if could have lab orders to check? She said her stools are dark but she takes iron, she is scheduled for colonoscopy on 11/26. Patient has appt with Shahriar on 11/24/2024. Pending CBC, not sure what else may be wanted. Please advise documented in this encounter [facility] 11-14-2024 Telephone encount er Note I have placed this but with her history numerous things could be causing her fatigue and I recommend she be seen. Thank you Shahriar Brown APRN.ANTHONY [facility] 11-14-2024 Telephone encount er Note Patient calls to check on status of request from yesterday. Notified pending provider review and will be notified once there is a response to request. Marvel Rice RN [facility] 11-13-2024 Telephone encount er Note Patient calling she has been feeling very exhausted past few weeks. Patient is wondering if her anemia is worse again. Patient has conference in [place] next week does not want to get sick and need blood transfusion. Patient asking if could have lab orders to check? She said her stools are dark but she takes iron, she is scheduled for colonoscopy on 11/26. Patient has appt with Shahriar on 11/24/2024. Pending CBC, not sure what else may be wanted. Please advise [facility] 11-11-2024 Telephone encount er Note Patient has been identified by name and date of : Yes Patient phones for refill(s): Requested Prescriptions Pending Prescriptions Disp Refills fluticasone (FLONASE) 50 mcg/actuation nasal spray 16 g 2 Si sprays once daily. Date of last office visit in primary care: 08/27/2024 Date of next office visit in primary care: 11/26/2024 Please advise. Thank you. Diamond Vaughn LPN. [facility] 11-11-2024 Miscellaneous Notes Formattin g of this note is different from the original. Patient has been identified by name and date of : Yes Patient phones for refill(s): Requested Prescriptions Pending Prescriptions Disp Refills fluticasone (FLONASE) 50 mcg/actuation nasal spray 16 g 2 Si sprays once daily. Date of last office visit in primary care: 08/27/2024 Date of next office visit in primary care: 11/26/2024 Please advise. Thank you. Diamond Vaughn LPN. documented in this encounter [facility] 11-10-2024 Telephone encount er Note Patient has been identified by name and date of : Yes Patient phones for refill(s): Requested Prescriptions Pending Prescriptions Disp Refills montelukast (SINGULAIR) 10 mg tablet 90 tablet 3 Sig: Take 1 tablet by mouth once daily. metFORMIN ER (GLUCOPHAGE XR) 500 mg 24 hr tablet 360 tablet 1 Sig: Take 2 tablets by mouth two times a day with meals. Date of last office visit in primary care: 08/27/2024 Date of next office visit in primary care: 11/10/2024 Please advise. Thank you. Diamond Vaughn LPN. [facility] 11-10-2024 Miscellaneous Notes Formattin g of this note is different from the original. Patient has been identified by name and date of : Yes Patient phones for refill(s): Requested Prescriptions Pending Prescriptions Disp Refills montelukast (SINGULAIR) 10 mg tablet 90 tablet 3 Sig: Take 1 tablet by mouth once daily. metFORMIN ER (GLUCOPHAGE XR) 500 mg 24 hr tablet 360 tablet 1 Sig: Take 2 tablets by mouth two times a day with meals. Date of last office visit in primary care: 08/27/2024 Date of next office visit in primary care: 11/10/2024 Please advise. Thank you. Diamond Vaughn LPN. documented in this encounter [facility] 11-10-2024 Telephone encount er Note Patient has been identified by name and date of : Yes Patient phones for refill(s): Requested Prescriptions Pending Prescriptions Disp Refills EPINEPHrine (EPIPEN) 0.3 mg/0.3 mL auto-injector 2 each 1 Sig: Use per directed for severe allergic reaction lansoprazole (PREVACID) 30 mg capsule 90 capsule 3 buPROPion XL (WELLBUTRIN XL) 150 mg 24 hr tablet 90 tablet 3 Sig: Take 1 tablet by mouth once daily. citalopram (CELEXA) 40 mg tablet 90 tablet 1 Sig: Take 1 tablet by mouth once daily. losartan (COZAAR) 50 mg tablet 90 tablet 1 Sig: Take 1 tablet by mouth once daily. Date of last office visit in primary care: 08/27/2024 Date of next office visit in primary care: 11/26/2024 Please advise. Thank you. Diamond Vaughn LPN. [facility] 11-10-2024 Miscellaneous Notes Formattin g of this note is different from the original. Patient has been identified by name and date of : Yes Patient phones for refill(s): Requested Prescriptions Pending Prescriptions Disp Refills EPINEPHrine (EPIPEN) 0.3 mg/0.3 mL auto-injector 2 each 1 Sig: Use per directed for severe allergic reaction lansoprazole (PREVACID) 30 mg capsule 90 capsule 3 buPROPion XL (WELLBUTRIN XL) 150 mg 24 hr tablet 90 tablet 3 Sig: Take 1 tablet by mouth once daily. citalopram (CELEXA) 40 mg tablet 90 tablet 1 Sig: Take 1 tablet by mouth once daily. losartan (COZAAR) 50 mg tablet 90 tablet 1 Sig: Take 1 tablet by mouth once daily. Date of last office visit in primary care: 08/27/2024 Date of next office visit in primary care: 11/26/2024 Please advise. Thank you. Diamond Vaughn LPN. documented in this encounter [facility] 10-20-2024 Evaluation note Diagnosis Onset Date Resolution Coronary artery disease chronic J une 2024 1:35pm Diabetes chronic October 20 1:35pm Dyslipidemia chronic October 20 1:35pm Essential hypertension chronic Ju ne 2024 1:35pm Graves disease chronic October 20, 2024 1:35pm Interstitial lung disease chronic October 20, 2024 1:35pm Paroxysmal atrial fibrillation chronic October 20, 2024 1:35pm Raynaud disease chronic October 1:35pm [facility] Work Phone: 1(726) 922-235405-15-2025 Telephone encounter Note* Telephone Encounter - Julieta Campuzano MA - 09/18/2024 3:25 PM EDT X-ray scanned in documents. [facility]05-15-2025 Miscellaneous Notes* Telephone Encounter - Julieta Campuzano MA - 09/18/2024 3:25 PM EDT X-ray scanned in documents. documented in this encounterC[facility] Radiology Diagnostic study note [facility] Imaging Services [address] [place], [place] [address] Chest PA and Lateral MR#: [id number] Acct: [id number] Name: CASSIA HOLLAND Rep #: [id number] : 1965 F 59 From: Dale Schwartz MD PCP: Dr. Opal Mathews MD Status: REG C ARCADIO Study:Chest PA and Lateral Date of Exam: 09/17/24 Exam# [id number] Ordering Dr: Lauro Mason MD PROCEDURE: CHEST [...] right mid cervical facet hypertrophic changes. Old right- sided rib fracture again noted. RAD/Chest PA and Lateral IMPRESSION: Mild increased appearing bilateral perihilar markings may be inflammatory/infectious, possible viral etiology or less likely edema, clinically correlate. No focal consolidation or pleural effusion. Reading Location: [id number] CC: Dr. Opal Mathews MD; Dr. Lauro Mason MD ~ Refrigeration Insulator: Signed [facility]04-23-2025 NoteHNO ID: [id number] Author: SHAHRIAR BROWN APRN.NURSE STAFF Service: ? Author Type: Nurse Practitioner Type: Progress Notes Filed: 08/27/2024 17:02 Note Text: CC: Patient presents with: Recheck: 3 month follow up HPI Cassia Holland is a 58 year old female who presents today for routine follow up. Recording using Trustifi software for draft documentation of the visit was discussed with the patient/authorized patient registration representative; all questions welcomed and answered. Patient/authorized patient registration representative agreed to proceed Liver Fibrosis: - Last blood work showed improvement. - Follow-up with car wrecker and GI at [facility] - Feeling good at this time [...] per directed for severe allergic reaction lancets ([employer] DELICA PLUS LANCET) 33 gauge Test blood sugar(s) 1 times daily. Dx: Type 2 DM - Controlled E11.9 Insulin: No blood sugar diagnostic ([facility] [employer] [facility] ULTRA TEST) test strip use 1 TEST [...] (sjogrens) Sister No Kn (more content not included)...[facility]04-15-2025 NoteHNO ID: [id number] Author: JACQUE ARRIOLA PA Service: ? Author Type: Physician Starter Cup Powder Mixer Type: Progress Notes Filed: 08/19/2024 15:56 Note [...] per directed for severe allergic reaction lancets ([employer] DELICA PLUS LANCET) 33 gauge Test blood sugar(s) 1 times daily. Dx: Type 2 DM - Controlled E11.9 Insulin: No blood sugar diagnostic ([facility] ULTRA TEST) test strip use 1 TEST [...] in acute distress. Appearan (more content not included)...[facility]04-15-2025 History of Present illness Narrative* Jacque Arriola PA - 08/19/2024 3:29 PM EDT Images from the original note were [...] per directed for severe allergic reaction lancets ([facility] DELICA PLUS LANCET) 33 gauge Test blood sugar(s) 1 times daily. Dx: Type 2 DM - Controlled E11.9 Insulin: No blood sugar diagnostic ([employer] Co[employer] ULTRA TEST) test strip use 1 TEST [...] patient was discharged. Procedures [place] [address]-15-2025 Telephone encounter Note * Telephone Encounter - Marvel Rice RN - 08/19/2024 9:03 AM EDT Patient calls for puncture wound. Nurse triage completed. Protocol recommends see provider within 24 hours. Offered same day. Patient going to [place] for an appt and declined scheduling. Prefers to go to [facility]. Care advice reviewed. Patient verbalizes understanding. Reason [...] tetanus shot. Patient has an appointment in [place] today and not able to come in for any of the appointments offered. Patient reports that she will go to [facility]. Spoke with [facility] to verify if a tetanus shot was needed they would administer. 2. OBJECT: Carpet nail 3. DEPTH: Not deep as carpet nails are not that deep. 4. ONSET: Earlier this morning 5. PAIN: Mild 6. TETANUS: Patient is not certain. None on file. Protocols used: Puncture [id number] [facility]04-15-2025 Miscellaneous Notes* Telephone Encounter - Marvel Rice RN - 08/19/2024 9:03 AM EDT Patient calls for puncture wound. Nurse triage completed. Protocol recommends see provider within 24 hours. Offered same day. Patient going to [place] for an appt and declined scheduling. Prefers to go to [facility]. Care advice reviewed. Patient verbalizes understanding. Reason [...] tetanus shot. Patient has an appointment in [place] today and not able to come in for any of the appointments offered. Patient reports that she will go to . Spoke with [facility] to verify if a tetanus shot was needed they would administer. 2. OBJECT: Carpet nail 3. DEPTH: Not deep as carpet nails are not that deep. 4. ONSET: Earlier this morning 5. PAIN: Mild 6. TETANUS: Patient is not certain. None on file. Protocols used: Puncture [id number] documented in this encounterC[facility]04-14-2025 NoteHNO ID: [id number] Author: OPAL MATHEWS MD Service: ? Author [...] treated in September with a procedure in [place]. She has a follow-up appointment at the [...] EPINEPHrine (EPIPEN) 0.3 mg/0.3 mL auto-injector lancets ([facility] DELICA PLUS LANCET) 33 gauge blood sugar diagnostic ([facility] [employer] [facility] ULTRA TEST) test strip levalbuterol tartrate HFA [...] excuse any unintended typographical errors. Recording using Trustifi software for draft documentation of the visit was discussed with the patient/authorized patient registration representative; all questions welcomed and answered. Patient/authorized patient registration representative agreed to proceed Opal Mathews [facility]04-14-2025 History of Present illness Narrative* Opal Mathews MD - 08/18/2024 5:54 PM EDT Reason for Visit Dig bite HPI Cassia [...] seek medical attention due to concerns about thewound's appearance and persistent bleeding. Cassia is currently on Eliquis and another unspecified anticoagulant for A-fib, which was treated in September with a procedure in [place]. She has a follow-up appointment at the [...] excuse any unintended typographical errors. Recording using Trustifi software for draft documentation of the visit was discussed with the patient/authorized patient registration representative; all questions welcomed and answered. Patient/authorized patient registration representative agreed to proceed Opal Mathews MD documented in this encounterC[facility]04-[facility] Instructions* Patient Instructions* Opal Mathews MD - 08/18/2024 4:35 PM EDT We discussed your arm wound: - The wound is bleeding due to your use of Eliquis (a blood thinner). To manage this: - Stop taking Eliquis for 3 days, starting today (Sunday). Resume Eliquis on Sunday. - A pressure bandage has been applied to help stop the bleeding. Leave the bandage in place for 2-3days and avoid getting it wet. - If [...] please let us know. documented in this encounterC[facility]04-[facility]-20[facility] Telephone encounter Note * Telephone Encounter - Bonnie Pompa LPN - 08/12/2024 8:42 AM EDT Patient MyChart message requesting the following refill [...] [Levofloxa* Rash Sulfa (Sulfonamide * Hives (home) [phone] (cell) Last Office Visit Date: 05/28/2024 Last [facility] Visit: Visit date not found Future Appointment: 08/27/2024 The patients preferred pharmacy has been captured for this encounter? yes Request is for script(s) to be escript to pharmacy. Bonnie Pompa LPN [facility]04-08-2025 Miscellaneous Notes* Telephone Encounter - Bonnie Pompa LPN - 08/12/2024 8:42 AM EDT Patient MyChart message requesting the following refill [...] [Levofloxa* Rash Sulfa (Sulfonamide * Hives (home) [phone] (cell) Last Office Visit Date: 05/28/2024 Last [facility] Visit: Visit date not found Future Appointment: 08/27/2024 The patients preferred pharmacy has been captured for this encounter? yes Request is for script(s) to be escript to pharmacy. Bonnie Pompa LPN documented in this encounterC[facility]03-[facility] Telephone encounter Note * Telephone Encounter - Julieta Campuzano MA - 08/04/2024 4:40 PM EDT Forms faxed as requested. [facility]03-31-2025 Miscellaneous Notes* Telephone Encounter - Julieta Campuzano MA - 08/04/2024 4:40 PM EDT Forms faxed as requested. * Telephone Encounter - Shahriar Brown APRN.CNP - 08/04/2024 4:13 PM EDT Form filled out. Please fax as requested and update patient. Thank you Shahriar Brown APRN.CNP documented in this encounterC[facility]03-[facility]-20[facility] Telephone encounter Note * Telephone Encounter - Shahriar Brown APRN.CNP - 08/04/2024 4:13 PM EDT Form filled out. Please fax as requested and update patient. Thank you Shahriar Brown APRN.NURSE STAFF [facility]03-24-2025 Radiology Diagnostic study note [facility] Imaging Services [address] [place], [place] [address] Chest without Contrast MR#: [id number] Acct: [id number] Name: CASSIA HOLLAND Rep #: [id number] : 1965 F 58 From: Evangelina Casey MD PCP: Dr. Opal Mathews MD Status: KSENIA ERVIN Study:Chest without Contrast Date of Exam: 07/28/24 Exam# [id number] Ordering Dr: Lauro Mason MD EXAM: CT Chest Without Intravenous Contrast CLINICAL INDICATION: CHEST PAIN ON BREATHING TECHNIQUE: Axial computed tomography images of the chest without intravenous contrast. This CT examwas performed using one or more of the [...] pulmonary nodules. 2. Lung emphysema/COPD. Reading Location: [facility] CC: Dr. Opal Mathews MD; Dr. Lauro Mason MD ~ Refrigeration Insulator: Signed [facility]02-24-2025 Evaluation note* Diagnosis Onset Date Resolution Status Admit Date Coronary artery disease chronic F ebruary 2024 9:37am Diabetes chronic June 30, 2024 9:37am Dyslipidemia chronic June 9:37am Essential hypertension chronic Fe bruary 2024 9:37am Graves disease chronic June 082024 9:37am Interstitial lung disease chronic June 30, 2024 9:37am Paroxysmal atrial fibrillation chron ic June 30, 2024 9:37am Raynaud disease chronic June 30, 2024 9:37am [facility] Work Phone: 1(692) 122-772402-24-2025 Evaluation note* Diagnosis Onset Date Resolution Status Admit Date Coronary artery disease chronic F ebruary 2024 9:37am Diabetes chronic June 30, 2024 9:37am Dyslipidemia chronic June 9:37am Essential hypertension chronic Fe bruary 2024 9:37am Graves disease chronic June 082024 9:37am Interstitial lung disease chronic June 30, 2024 9:37am Paroxysmal atrial fibrillation chron ic June 30, 2024 9:37am Raynaud disease chronic June 30, 2024 9:37am Coronary artery disease chronic J [facility] 2024 1:35pm Diabetes chronic October 20 1:35pm Dyslipidemia chronic October 20 1:35pm Essential hypertension chronic Ju 2024 1:35pm Graves disease chronic October 20, 2024 1:35pm Interstitial lung disease chronic October 20, 2024 1:35pm Paroxysmal atrial fibrillation chron ic October 20, 2024 1:35pm Raynaud disease chronic October 1:35pm [facility] Work Phone: 1(287) 135-709102-12-2025 Evaluation note* Diagnosis Onset Date Resolution Status [...] 9:37am Paroxysmal atrial fibrillation chronic June 30, 025 9:37am Raynaud disease chronic June 30, 2024 9:37am [facility] Work Phone: 1(645) 186-257202-03-2025 Telephone encounter Note* Telephone Encounter - Reyna Lamb RN - 06/09/2024 9:16 AM EST Pt scheduled on 06/10/24. [facility]02-03-2025 Miscellaneous Notes* Telephone Encounter - Reyna Lamb RN - 06/09/2024 9:16 AM EST Pt scheduled on 06/10/24. * Telephone Encounter - Reyna Lamb RN - 06/06/2024 12:33 PM EST Called and left a detailed voicemail notifying patient of providers message per Pts request and sent in a [employer] message. Clinic phone number was left for [...] [2] has been evaluated by doctor (or FURNITURE FABRICATOR/PA) for this Answer Assessment - Initial Assessment [...] 10. : Denies. Protocols used: Dizziness - [id number] documented in this encounterC[facility] Telephone encounter Note * Telephone Encounter - Reyna Lamb RN - 06/06/2024 12:33 PM EST Called and left a detailed voicemail notifying patient of providers message per Pts request and sent in a [employer] message. Clinic phone number was left for patient call and schedule an appointment. Reyna Lamb RN [facility]01-31-2025 Telephone encounter Note* Telephone Encounter - Shahriar Brown APRN.CNP - 06/06/2024 12:20 PM EST She needs seen. With her cardiac history, recent GI bleed, and multiple other co-morbidities there could be a multitude of issues. Thank you Shahriar Brown APRN.CNP [facility]01-31-2025 Telephone encounter Note* Telephone Encounter - Reyna [...] [2] has been evaluated by doctor (or FURNITURE FABRICATOR/PA) for this Answer Assessment - Initial Assessment [...] 10. : Denies. Protocols used: Dizziness - [id number]-OS [facility]01-22-2025 NoteHNO ID: [id number] Author: SHAHRIAR BROWN APRN.NURSE STAFF Service: ? Author Type: Nurse Practitioner Type: [...] BEFORE BREAKFAST fluticasone (F (more content not included)...[facility] 05-28-2024 History of Present illness Narrative* Shahriar Brown APRN.NURSE STAFF - 05/28/2024 12:13 PM EST CC: Patient presents with: Recheck: Follow up HPI Cassia Baker Skyler is a 58 year old female who [...] per directed for severe allergic reaction lancets ([facility] DELICA PLUS LANCET) 33 gauge Test blood sugar(s) 1 times daily. Dx: Type 2 DM - Controlled E11.9 Insulin: No blood sugar diagnostic ([facility] ULTRA TEST) test strip use 1 TEST [...] 12/17/2024 HIV Screening due on 01/16/2025 Covid-19 Vaccine( season) due on 01/16/2025 HbA1C due on [...] plan. Shahriar Brown APRN.CNP documented in this encounterC[facility]01-[facility] Telephone encounter Note * Telephone Encounter - Ivett Barragan MA - 05/28/2024 11:38 AM EST Scan on 05/06/2024 2:29 PM by Provider, External, PA-C: Consultation - PT/OT/Speech Please see above FCE. Ivett Barragan MA [place] [address]-22-2025 Miscellaneous Notes* Telephone Encounter - Ivett Barragan MA - 05/28/2024 11:38 AM EST Scan on 05/06/2024 2:29 PM by Provider, External, CARMENC: Consultation - PT/OT/Speech Please see above FCE. Ivett Barragan MA documented in this encounterCleveland [facility]01-[facility] Evaluation note* Diagnosis Onset Date Resolution Status [...] Raynaud disease chronic June 30, 2024 9:37am [facility] Work Phone: 1(993) 213-601201-08-2025 [facility]01-08-2025 NoteHNO ID: [id number] Author: SHAHRIAR BROWN APRN.NURSE STAFF Service: ? Author Type: Nurse Practitioner Type: Progress Notes Filed: 05/14/2024 10:05 Note Text: CC: Patient presents with: Recheck: 3 month follow up, recent ER follow up HPI Cassia Holland is a 58 year old female who presents today for ER follow-up. Facility: [facility] ER Date of visit: 05/10/24 Reason [...] per directed for severe allergic reaction lancets ([employer] DELICA PLUS LANCET) 33 gauge Test blood [...] Pulse 84 Resp 16 (more content not included)...[facility]01-08-2025 History of Present illness Narrative* Shahriar Brown APRN.ANTHONY - 05/14/2024 9:33 AM EST CC: Patient presents with: Recheck: 3 month follow up, recent ER follow up HPI Cassia Holland is a 58 year old female who presents today for ER follow-up. Facility: [facility] ER Date of visit: 05/10/24 Reason [...] per directed for severe allergic reaction lancets ([facility] [employer] [facility] DELICA PLUS LANCET) 33 gauge Test blood sugar(s) 1 times daily. Dx: Type 2 DM - Controlled E11.9 Insulin: No blood sugar diagnostic ([facility] ULTRA TEST) test strip use 1 TEST [...] 12/17/2024 HIV Screening due on 01/16/2025 Covid-19 Vaccine( - 2023-25 season) due on 01/16/2025 HbA1C due on [...] Screening Discontinued DATA REVIEWED: Outside chart from [facility] reviewed. ASSESSMENT/PLAN: 1. Anemia, unspecified type [...] plan. Shahriar Brown APRN.CNP documented in this encounterC[facility]01-[facility] Telephone encounter Note * Telephone Encounter - Luz Cordoba APRN.CNP - 05/13/2024 7:31 AM EST Discuss if this should be continued at appointment with Shahriar tomorrow Luz Cordoba APRN.CNP [facility]01-07-2025 Miscellaneous Notes* Telephone Encounter - Luz Cordoba [...] you. Diamond Vaughn LPN. documented in this encounterC[facility] Clinic [facility]01-06-2025 Telephone encounter Note * Telephone Encounter - [...] Please advise. Thank you. Diamond Vaughn LPN. [facility]12-24-2024 NotePatient Outreach (INTMMN) CASSIA HOLLAND ([id number]) 1965 F Date Time Provider Department 04/29/24 [...] [E11.9] Order(s):LIPID PANEL BASIC [SQLIPB] Order #: [id number] FUTURE Prescriptions as of 05/02/2024 - budesonide [...] directed for severe allergic reaction - lancets ([employer] Co[employer]OUCH DELICA PLUS LANCET) 33 gauge Test blood sugar(s) 1 times daily. Dx: Type 2 DM - Controlled E11.9 Insulin: No - blood sugar diagnostic ([employer] CoatingTOUCH ULTRA TEST) test strip use 1 TEST [...] 04/07/2021 Encounter Status:Closed by MILY DELANEY on 05/02/24[facility] 04-25-[facility] Telephone encounter Note* Telephone Encounter - [...] Hedrick LPN April 25, 2024 2:59 PM [facility]12-20-2024 Miscellaneous Notes* Telephone Encounter - Deepti Hedrick [...] 25, 2024 2:59 PM documented in this encounterCleveland Clinic [facility]12-16-2024 Telephone encounter Note * Telephone Encounter - Marvel Rice RN - 04/21/2024 3:24 PM EST Patient returns call and reports that testing can be completed at [facility] and requests order befaxed. Faxed to [phone] per request. Marvel Rice RN [facility]12-16-2024 Miscellaneous Notes* Telephone Encounter - Marvel Rice RN - 04/21/2024 3:24 PM EST Patient returns call and reports that testing can be completed at [facility] and requests order befaxed. Faxed to [phone] per request. Marvel Rice RN * Telephone Encounter - Myrtle Ramirez - 04/21/2024 3:07 PM EST Called patient to schedule test appt only location performing this test is [place],patient stated that she would check with [facility] if this is something that she [...] you Shahriar Brown APRN.CNP documented in this encounterCleveland Clinic [facility]12-16-2024 Telephone encounter Note * Telephone Encounter - Myrtle Ramirez - 04/21/2024 3:07 PM EST Called patient to schedule test appt only location performing this test is [facility],patient stated that she would check with [facility] if this is something that she could have done there if so she will call back to have us fax order. [facility]12-13-2024 Telephone encounter Note* Telephone Encounter - Lissette Newton - 04/18/2024 9:12 AM EST 1st attempt to call patient to schedule test. LVM. [facility]12-11-2024 Telephone encounter Note* Telephone Encounter - Julieta Campuzano MA - 04/16/2024 2:14 PM EST Patient notified, please assist in scheduling. [facility]12-11-2024 Telephone encounter Note* Telephone Encounter - Shahirar Brown APRN.CNP - 04/16/2024 11:06 AM EST Forms for work reviewed but they are requesting detailed info like how much she can lift. This needs completed by functional capacity testing. Order placed. Thank you Shahriar Brown APRN.NURSE STAFF [facility]12-10-2024 Evaluation note* Diagnosis Onset Date Resolution Status Admit Date Coronary artery disease chronic D ecember 2023 11:11am Dyslipidemia chronic April 11:11am Essential hypertension chronic De cember 2023 11:11am Paroxysmal atrial fibrillation chronic April 15 [...] 9:37am Paroxysmal atrial fibrillation chronic June 30, 025 9:37am Raynaud disease chronic June 30, 2024 9:37am [facility] Work Phone: 1(624) 838-267711-22-2024 NoteHNO ID: [id number] Author: SHAHRIAR BROWN APRN.NURSE STAFF Service: ? Author Type: Nurse Practitioner Type: [...] 180s systolic. 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 [...] per directed for severe allergic reaction lancets ([facility] [employer] [facility] DELICA PLUS LANCET) 33 gauge Test blood sugar(s) 1 times daily. Dx: Type 2 DM - Controlled E11.9 Insulin: No blood sugar diagnostic ([facility] ULTRA TEST) test strip use 1 TEST [...] (186 lb) SpO2 99 (more content not included)...[facility] 03-28-2024 History of Present illness Narrative* Shahriar Brown APRN.[facility] - 03/28/2024 12:58 PM EST CC: Patient [...] 180s systolic. 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 [...] per directed for severe allergic reaction lancets ([employer] DELICA PLUS LANCET) 33 gauge Test blood sugar(s) 1 times daily. Dx: Type 2 DM - Controlled E11.9 Insulin: No blood sugar diagnostic ([employer] CoatingTOUCH ULTRA TEST) test strip use 1 TEST [...] Uncontrolled Continue with plans to discuss with wool hat finisher today. If this does not occur for [...] plan. Shahriar Brown APRN.CNP documented in this encounterCleveland Clinic [facility]11-13-2024 Telephone encounter Note * Telephone Encounter - [...] Ray LPN March 19, 2024 8:12 AM [facility]11-13-2024 Miscellaneous Notes* Telephone Encounter - Christnia Ray LPN - 03/19/2024 8:03 AM EST [...] 19, 2024 8:12 AM documented in this encounterCleveland Clinic [facility]10-16-2024 Telephone encounter Note * Telephone Encounter - Julieta Campuzano MA - 02/20/2024 8:46 AM EDT Patient notified. [facility]10-16-2024 Miscellaneous Notes* Telephone Encounter - Julieta Campuzano MA - 02/20/2024 8:46 AM EDT Patient notified. * Telephone Encounter - Shahriar Brown APRN.CNP - 02/20/2024 8:23 AM EDT She has been varying in 9s to 10s over the past year. If no active bleeding or new/worsening concerns, we can recheck in 2-4 weeks. Thank you Shahriar Brown APRN.ANTHONY * Telephone Encounter - Opal Mathews MD - 02/19/2024 5:25 PM EDT Lab results are not emergent. Would route to Shahriar as I have not seen the patient recently Opal Cormier MD * Telephone Encounter - Chloé Dhaliwal LPN - 02/19/2024 1:33 PM EDT Pt had labs ordered & drawn by [facility] on 02/14/24 & wanted to be sure Joylooked at them, specifically the HGB which was low at 9.2. Please review in Shahriar's absence. Chloé Dhaliwal LPN documented in this encounterCleveland Clinic [facility]10-16-2024 Telephone encounter Note * Telephone Encounter - Shahriar Brown APRN.CNP - 02/20/2024 8:23 AM EDT She has been varying in 9s to 10s over the past year. If no active bleeding or new/worsening concerns, we can recheck in 2-4 weeks. Thank you Shahriar Brown APRN.NURSE STAFF [facility]10-15-2024 Telephone encounter Note* Telephone Encounter - Opal Mathews MD - 02/19/2024 5:25 PM EDT Lab results are not emergent. Would route to Shahriar as I have not seen the patient recently Opal Cormier MD [facility]10-15-2024 Telephone encounter Note* Telephone Encounter - Chloé Dhaliwal LPN - 02/19/2024 1:33 PM EDT Pt had labs ordered & drawn by [facility] on 02/14/24 & wanted to be sure Joylooked at them, specifically the HGB which was low at 9.2. Please review in Shahriar's absence. Chloé Dhaliwal LPN [facility]10-10-2024 NoteHNO ID: [id number] Author: SHAHRIAR BROWN APRN.ANTHONY Service: ? Author [...] per directed for severe allergic reaction lancets ([facility] [employer] [facility] DELICA PLUS LANCET) 33 gauge Test blood [...] Never Used Substance U (more content not included)...[facility]10-10-2024 History of Present illness Narrative* Shahriar Brown APRN.NURSE STAFF - 02/14/2024 2:29 PM EDT CC: Patient [...] per directed for severe allergic reaction lancets ([facility] [facility] DELICA PLUS LANCET) 33 gauge Test blood sugar(s) 1 times daily. Dx: Type 2 DM - Controlled E11.9 Insulin: No blood sugar diagnostic ([employer] CoatingTOUCH ULTRA TEST) test strip use 1 TEST [...] Screening due on 01/16/2025 Covid-19 Vaccine(3 - season) due on 01/16/2025 LDL Cholesterol due [...] exercise Instructed patient to contact office or [id number] after-hours promptly should condition worsen or any new symptoms appear. - [facility] and after hours crisis line 4. Encounter for immunization - ICD9: V03.89, ICD10: Z23 - INFLUENZA VACCINE, AGE 6MO-64YR, TRIVALENT (AFLURIA, FLULAVAL, FLUVIRIN, FLUZONE) Prescription instructions reviewed with patient as applicable. Potential red flag symptoms discussed with the patient. Reviewed appropriate action plan to take if red flag symptoms occur. Patient agreeable to treatment plan. Shahriar Brown APRN.CNP documented in this encounterCleveland Clinic [facility]09-16-2024 NoteHNO ID: [id number] Author: CHHAYA CROWE MD Service: ? Author Type: Physician Type: Progress Notes Filed: 01/21/2024 16:30 Note Text: Nursing Administrator offered: Patient declines. Cassia is a 58 year old who presents for an annual gynecologic exam without complaints. Postmenopausal: Yes No PMB HRT use: No. 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 As applicable, any other physician, advance practice provider, medical student, or other health professional student that will be observing or involved in the sensitive examination for educational or training purposes was discussed with the Patient or Authorized Ep Specialist. The Patient or Authorized Ep Specialist has agreed to proceed with the sensitive [...] external genitalia normal, normal Bartholin's glands, urethra, Azle's glands, no vulvar lesions, good vaginal support, [...] up one year or sooner as needed [facility] History of Present illness Narrative* Chhaya Crowe MD - 01/21/2024 2:11 PM EDT Nursing Administrator offered: Patient declines. Cassia is a 58 year old who presents for an annual gynecologic exam without complaints. Postmenopausal: Yes No PMB HRT use: No. 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 As applicable, any other physician, advance practice provider, medical student, or other health professional student that will be observing or involved in the sensitive examination for educational or training purposes was discussed with the Patient or Authorized Ep Specialist. The Patient or Authorized Ep Specialist has agreed to proceed with the sensitive [...] external genitalia normal, normal Bartholin's glands, urethra, Azle's glands, no vulvar lesions, good vaginal support, [...] needed Chhaya Crowe DO documented in this encounterCleveland Clinic [facility]20[facility] Instructions* Patient Instructions* Shahriar Brown APRN.CNP - 01/17/2024 1:43 PM EDT Start using your cpap documented in this encounterCleveland Clinic [facility]2024 NoteHNO ID: [id number] Author: SHAHRIAR BROWN APRN.CNP Service: ? Author [...] sodium (PRAVASTATIN ORAL) T (more content not included)...[facility]2024 History of Present illness Narrative* Shahriar Brown APRN.NURSE STAFF - 01/17/2024 1:25 PM EDT CC: Patient [...] Colorectal Cancer Screening due on 06/26/2023 Covid-19 Vaccine(3 - 2022- season) due on 01/06/2024 Influenza Vaccine(1) due [...] wellbutrin - Reviewed concept of neurochemical imbalance [facility] depression/anxiety, treatment options and benefits of counseling in combination with medication. Also reviewed benefits of sleep hygeine, diet and exercise - Follow-up in 4-6 weeks or sooner as needed - Instructed patient to contact office or [id number] after-hours promptly should condition worsen or any new symptoms appear. - [facility] and after hours crisis line 5. Type [...] plan. Shahriar Brown APRN.CNP documented in this encounterCleveland Clinic [facility]09-10-2024 Telephone encounter Note * Telephone Encounter - [...] Bentley MA January 15, 2024 9:18 AM [facility]09-10-2024 Miscellaneous Notes* Telephone Encounter - Tio Bentley [...] 15, 2024 9:18 AM documented in this encounterCleveland Clinic [facility]08-20-2024 Note* Letter - Coordinator, Mammography - 12/25/2023 8:44 PM EDT December 26, 2023 PID: [id number] Cassia Holland [address] [place] [address] Dear Ms. Holland, We are pleased to [...] report will be kept on [facility] at [facility] as part of your permanent medical record and are available for your continuing care. Thank you for allowing us to help in meeting your health care needs. Sincerely, Dr. Jameson Interpreting Radiologist [facility] (Normal over 40) [facility]08-20-2024 Miscellaneous Notes* Letter - Coordinator, Mammography - 12/25/2023 8:44 PM EDT December 26, 2023 PID: [id number] Cassia Holland [address] [place] [address] Dear Ms. Holland, We are pleased to [...] report will be kept on file at [facility] as part of your permanent medical record and are available for your continuing care. Thank you for allowing us to help in meeting your health care needs. Sincerely, Dr. Jameson Interpreting Radiologist [facility] (Normal over 40) documented in this encounterCleveland Clinic [facility]08-20-2024 History of Present illness Narrative* Figueroa Davies [...] PATIENT PRESENTS WITH AN IMPLANTABLE OR ATTACHED ONLINE EDITOR: No RADIOLOGY DEPARTMENT: Mammography PERIPHERAL IV DATA: Not applicable SIGNED BY: Paul Huertas December 25, 2023 10:06 AM documented in this encounterCleveland Clinic [facility]08-20-2024 NoteHNO ID: [id number] Author: FIGUEROA DAVIES Mammo Tech Service: ? [...] PATIENT PRESENTS WITH AN IMPLANTABLE OR ATTACHED ONLINE EDITOR: No RADIOLOGY DEPARTMENT: Mammography PERIPHERAL IV DATA: Not applicable SIGNED BY: Paul Huertas December 25, 2023 10:06 [facility]08-13-2024 Instructions* Patient Instructions* Shahriar Brown APRN.NURSE STAFF - 12/18/2023 8:33 AM EDT Start using a CPAP Continue plaquenil as directed by rheumatology Start doing some strength and stretching exercises in the evenings. documented in this encounterCleveland Clinic [facility]08-13-2024 NoteHNO ID: [id number] Author: SHAHRIAR BROWN APRN.CNP Service: ? Author [...] Use per directed for (more content not included)...[facility]08-13-2024 History of Present illness Narrative* Shahriar Brown APRN.NURSE STAFF - 12/18/2023 8:06 AM EDT CC: Patient [...] per directed for severe allergic reaction lancets ([employer] [facility] DELICA PLUS LANCET) 33 gauge Test blood [...] and continuing your hydroxychlorquine as ordered by [facility]. If no improvement or [...] plan. Shahriar Brown APRN.ANTHONY documented in this encounterCleveland Clinic [facility]08-07-2024 NotePatient Outreach (INTMMN) CASSIA HOLLAND ([id number]) 1965 F Date Time Provider Department 12/12/23 [...] for screening mammogram for breast cancer [Z12.31] Order(s):[facility] [[id number]] Order #: [id number] FUTURE Prescriptions as of 12/17/2023 - ferrous [...] directed for severe allergic reaction - lancets ([employer] CoatingTOUCH DELICA PLUS LANCET) 33 gauge Test blood sugar(s) 1 times daily. Dx: Type 2 DM - Controlled E11.9 Insulin: No - blood sugar diagnostic ([employer] CoatingTOUCH ULTRA TEST) test strip use 1 TEST [...] 04/07/2021 Encounter Status:Closed by MILY DELANEY on 12/17/23[facility] 11-12-[facility] Miscellaneous Notes* Telephone Encounter - Michelle [...] 12, 2023 10:50 AM documented in this encounterCleveland Clinic [facility]07-08-2024 Telephone encounter Note * Telephone Encounter - [...] Luz LPN November 12, 2023 10:50 AM [facility]06-13-2024 Telephone encounter Note* Telephone Encounter - Samuel Cox RN - 10/18/2023 12:37 PM EDT Pt returned call and given provider's message below with verbalized understanding. [facility]06-13-2024 Miscellaneous Notes* Telephone Encounter - Samuel Cox [...] by ordering provider. Thank you Shahriar Brown APRN.NURSE STAFF * Telephone Encounter - Alyssa Wilson RN - 10/17/2023 9:20 AM EDT Patient calls and states that she had labs done on 10/04/2023 that were ordered by [facility]. Patient states that she was told by [facility] doctor that PCP needed to review these labs. Patient asking if Shahriar can review these labs and advise? Patient reports that she has been struggling with exhaustion and that she is running on empty. 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 Patient wondering if there is any issues with the labs that were done that reflects this? Please review and advise, Alyssa Wilson RN documented in this encounterCleveland Clinic [facility]06-13-2024 Telephone encounter Note * Telephone Encounter - Willow Amaro OCCA - 10/18/2023 8:10 AM EDT TC no answer. Left VM to return call. ADRYAN Bright [facility]06-12-2024 Telephone encounter Note* Telephone Encounter - Shahriar Brown APRN.CNP - 10/17/2023 6:30 PM EDT Liver enzymes are at baseline and stable. Kidney function good. Was there something specific I was to be reviewing? That is all that was scanned in. Other blood work should be reviewed by ordering provider. Thank you Shahriar Brown APRN.NURSE STAFF [facility]06-12-2024 Telephone encounter Note* Telephone Encounter - Alyssa Wilson RN - 10/17/2023 9:20 AM EDT Patient calls and states that she had labs done on 10/04/2023 that were ordered by [facility]. Patient states that she was told by [facility] doctor that PCP needed to review these labs. Patient asking if Shahriar can review these labs and advise? Patient reports that she has been struggling with exhaustion and that she is running on empty. 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 Patient wondering if there is any issues with the labs that were done that reflects this? Please review and advise, Alyssa Wilson RN [facility]06-10-2024 Telephone encounter Note* Telephone Encounter - Reyna [...] with Anabela HAWK tomorrow at 1040 am. [facility]06-10-2024 Miscellaneous Notes* Telephone Encounter - Reyna Lamb [...] tomorrow at 1040 am. documented in this [facility] Note* Nursing Notes - Agnieszka Low RN - 09/27/2023 3:06 PM EDTSummary: avs Patient verbalize understanding of instructions, saline lock removed, catheter intact, family to transport home [facility]05-23-[facility]24 Miscellaneous Notes* Nursing Notes - Agnieszka Low [...] Tele monitor shows NSR. [facility] Discharge instructions* Discharge Instr - [...] Where can you learn more? Go to [email or web address]. * Discharge Instr - Wound Care* MARCO [...] seek immediate medical care. documented in this encounterBl[facility] Nurse Note* Nursing Notes - Derrell Sorto [...] given to pt. Tele monitor shows NSR. [facility]05-23-2024 History and physical note* Pat Turner, CHILLER OPERATOR-NURSE STAFF - 09/27/2023 6:22 AM EDT Images from [...] Raynaud disease Paroxysmal atrial fibrillation Atherosclerosis of cantwell coronary artery of cantwell heart with angina pectoris Past Medical History: [...] minutes for sofie...(REFER TO PRESCRIPTION NOTES). nystatin 521560 UNIT/GM Powder powder Apply 1 Application topically [...] Resource Strain: Patient Declined (03/12/2023) [facility] Overall Financial Resource Strain (CARDIA) Difficulty of Paying Living Expenses: Patient declined Food Insecurity: Patient Declined (03/12/2023) [facility] Hunger Vital Sign Worried About Running Out of Food in the Last Year: Patient declined Ran Out of Food in the Last Year: Patient declined Transportation Needs: No Transportation Needs (03/12/2023) Received from [facility] PRAPARE - Transportation Lack of Transportation (Medical): No Lack of Transportation (Non-Medical): No Physical Activity: Insufficiently Active (03/12/2023) Re[facility] from [facility] Exercise Vital Sign Days of Exercise per Week: 3 days Minutes of Exercise per Session: 30 min Stress: No Stress Concern Present (03/12/2023) [facility] [place] [facility] [employer] [facility] - Occupational Stress Questionnaire Feeling of Stress : Not at all Social Connections: Unknown (03/12/2023) [facility] Social Connection and Isolation Panel [NHANES] Frequency of Communication with Friends and Family: More than three times a week Frequency of Social Gatherings with Friends and Family: Patient declined Attends Buddhist Services: Patient declined Active Member of Clubs or Organizations: No Attends Club or Organization Meetings: Never Marital Status: Housing Stability: Low Risk (03/12/2023) [facility] Housing Stability Vital Sign Unable to Pay [...] When was the last dose taken. 09/27/2023 [id number]- Vasc score: 4 (CAD, HTN, DM, female). [...] interviewed and examined this patient with the FURNITURE FABRICATOR on 09/27/23. I have reviewed the history [...] which will need follow-up. Ya Cleveland MD, FAC, RS Yudy Sanabria Chair in Cardiac Electrophysiology Professor of Clinical Medicine [facility]05-23-[facility]24 History and physical note* Pat Turner, CHILLER OPERATOR-NURSE STAFF - 09/27/2023 6:22 AM EDT Images from [...] Raynaud disease Paroxysmal atrial fibrillation Atherosclerosis of cantwell coronary artery of cantwell heart with angina pectoris Past Medical History: [...] minutes for sofie...(REFER TO PRESCRIPTION NOTES). nystatin [id number] UNIT/GM Powder powder Apply 1 Application topically [...] Resource Strain: Patient Declined (03/12/2023) [facility] Overall Financial Resource Strain (CARDIA) Difficulty of Paying Living Expenses: Patient declined Food Insecurity: Patient Declined (03/12/2023) [facility] Hunger Vital Sign Worried About Running Out of Food in the Last Year: Patient declined Ran Out of Food in the Last Year: Patient declined Transportation Needs: No Transportation Needs (03/12/2023) [facility] PRAPARE - Transportation Lack of Transportation (Medical): No Lack of Transportation (Non-Medical): No Physical Activity: Insufficiently Active (03/12/2023) [facility] Exercise Vital Sign Days of Exercise per Week: 3 days Minutes of Exercise per Session: 30 min Stress: No Stress Concern Present (03/12/2023) [facility] [place] [facility] Occupational [facility] - Occupational Stress Questionnaire Feeling of Stress : Not at all Social Connections: Unknown (03/12/2023) [facility] Social Connection and Isolation Panel [NHANES] Frequency of Communication with Friends and Family: More than three times a week Frequency of Social Gatherings with Friends and Family: Patient declined Attends Buddhist Services: Patient declined Active Member of Clubs or Organizations: No Attends Club or Organization Meetings: Never Marital Status: Housing Stability: Low Risk (03/12/2023) [facility] Housing Stability Vital Sign Unable to Pay [...] When was the last dose taken. 09/27/2023 [id number]- Vasc score: 4 (CAD, HTN, DM, female). [...] interviewed and examined this patient with the FURNITURE FABRICATOR on 09/27/23. I have reviewed the history [...] which will need follow-up. Ya Cleveland MD, [facility], [facility] Yudy Sanabria Chair in Cardiac Electrophysiology Professor of Clinical Medicine documented in this encounterBlanchard Valley [facility]05-13-2024 Telephone encounter Note* Telephone Encounter - Ivett Barragan MA - 09/17/2023 11:23 AM EDT Pharmacy request denied. Patient needs to contact office for refills. Ivett Barragan MA [facility]05-13-[facility]24 Miscellaneous Notes* Telephone Encounter - Ivett Barragan MA - 09/17/2023 11:23 AM EDT Pharmacy request denied. Patient needs to contact office for refills. Ivett Barragan MA documented in this encounterCleveland [facility] Telephone encounter Note * Telephone Encounter - [...] Please advise. Thank you. Deepti Hedrick LPN. [facility]05-03-2024 Miscellaneous Notes* Telephone Encounter - Deepti Hedrick [...] you. Deepti Hedrick LPN. documented in this encounterCleveland Clinic [facility]04-04-20[facility] History of Present illness Narrative* Shahriar Brown APRN.NURSE STAFF - 08/09/2023 7:39 AM EDT CC: Patient [...] not taken her meds yet today. Sees [facility] and next appointment is in [...] severe allergic reaction^Disp: 2 Each^Rfl: 1 lancets ([facility] DELICA PLUS LANCET) 33 gauge^Test blood sugar(s) 1 times daily. Dx: Type 2 DM - Controlled E11.9 Insulin: No^Disp: 100 Each^Rfl: 11 blood sugar diagnostic ([facility] ULTRA TEST) test strip^use 1 TEST STRIP [...] PCV) due on 09/15/2023 Covid-19 Vaccine( - 2022- season) due on 03/28/2024 Dilated [...] occur. Patient agreeable to treatment plan. Shahriar Older, CHILLER OPERATOR.NURSE STAFF documented in this encounterCleveland Clinic [facility]03-21-2024 Miscellaneous Notes* Telephone Encounter - Julieta Campuzano Ma - 07/26/2023 3:22 PM EDT Left detailed message on secure VM. * [...] been monitoring BS but will start. Marvel Rice RN * Telephone Encounter - Julieta Campuzano [...] blood sugars currently been? Thank you Shahriar Brown APRN.CNP * Telephone [...] for how long? .Thank you Shahriar Brown APRN.CNP * Telephone Encounter [...] is only on Metformin. documented in this encounterCleveland Clinic [facility]03-21-2024 Miscellaneous Notes* Telephone Encounter - Shahriar Brown [...] for review. Thank you. documented in this encounterCleveland Clinic [facility]03-14-2024 Miscellaneous Notes* Telephone Encounter - Gina Yanez [...] you. Diamond Vaughn LPN. documented in this encounterCleveland Clinic [facility]03-08-2024 Miscellaneous Notes* Telephone Encounter - Julieta Campuzano Ma - 07/13/2023 2:53 PM EST Left detailed message on secure VM * Addendum Note - Shahriar Brown APRN.CNP [...] for iron supplement. Take care Shahriar Brown APRN.ANTHONY * Telephone Encounter - [...] you Shahriar Brown APRN.CNP documented in this encounterCleveland Clinic [facility]03-08-2024 Miscellaneous Notes* Telephone Encounter - Willow Amaro OCCA - 07/13/2023 9:58 AM EST Please see dated 07/07/23. documented in this encounterCleveland Clinic [facility]03-01-2024 Miscellaneous Notes* Telephone Encounter - Julieta aCmpuzano Ma - 07/06/2023 10:02 AM EST Patient [...] levels to review. Thank you Shahriar Brown APRN.CNP * Telephone Encounter - Alyssa Wilson RN - 07/06/2023 8:21 AM EST Patient calls and states that she saw [facility] yesterday and they did labs on her. Patient states that her Hgb was 8.4. Patient is very concerned about this. Patient continues to feel fatigued. Please review and advise, Alyssa Wilson RN documented in this encounterCleveland Clinic [facility]02-29-2024 History of Present illness Narrative* Shahriar Brown [...] severe allergic reaction^Disp: 2 Each^Rfl: 1 lancets ([employer] Coating[employer] DELICA PLUS LANCET) 33 gauge^Test blood sugar(s) 1 times daily. Dx: Type 2 DM - Controlled E11.9 Insulin: No^Disp: 100 Each^Rfl: 11 blood sugar diagnostic ([employer] CoatingTOUCH ULTRA TEST) test strip^use 1 TEST STRIP [...] Vaccine(1) due on 11/04/2023 Covid-19 Vaccine(3 - season) due on 03/28/2024 Dilated Retinal [...] plan. Shahriar Brown APRN.CNP documented in this encounterCleveland Clinic [facility]02-16-2024 Miscellaneous Notes* Telephone Encounter - Yanci Phillip [...] between now and then. documented in this encounterCleveland Clinic [facility]02-15-2024 History of Present illness Narrative* Rubi Araya PA-C - 06/21/2023 3:07 PM EST This note was created using Flirqter. Subjective Cassia Holland is a 57 year [...] breath. She had been taking some Tylenol adnl-nqb-llqazaj. She still does have her gallbladder. Patient [...] severe allergic reaction 2 Each 1 lancets ([employer] CoatingTOUCH DELICA PLUS LANCET) 33 gauge Test blood [...] mouth once daily (Patient not taking: Reported 06/21/2023) 30 tablet 1 Current Facility-Administered Medications Medication [...] imaging and labs. Patient will go to [facility]. I did send the ER passport. Rubi Araya PA-C documented in this encounterCleveland Clinic [facility]02-15-2024 Miscellaneous Notes* Telephone Encounter - Julieta Campuzano [...] her liver specialist? Thank you Shahriar Brown APRN.ANTHONY * Telephone Encounter - Chloé Dhaliwal LPN [...] Pleaseadvise. Chloé Dhaliwal LPN documented in this encounterCleveland Clinic [facility]02-15-2024 Miscellaneous Notes* Telephone Encounter - Diamond Vaughn [...] you. Diamond Vaughn LPN. documented in this [facility]02-13-2024 Miscellaneous Notes* Telephone Encounter - Michelle Hurtado [...] you. Michelle Hurtado LPN. documented in this encounterC[facility] Clinic [facility]02-12-2024 Miscellaneous Notes* Telephone Encounter - Michelle Hurtado [...] you. Michelle Hurtado LPN. documented in this [facility]02-12-2024 Miscellaneous Notes* Telephone Encounter - Michelle Hurtado [...] you. Michelle Hurtado LPN. documented in this encounterC[facility] Clinic [facility]02-05-2024 Miscellaneous Notes* Telephone Encounter - FAHEEM Hurtado [...] you. Michelle Hurtado LPN. documented in this encounterCleveland Clinic [facility]12-24-2023 Discharge summary Author [facility]sh[facility] April 29, 2023 5:44am Note Date/Time April 29, 2023 2:08am [facility] Medical Records Department [address] [place] [id number] Emergency Department Summary 04/29/23 MR#: [id number] Acct: [id number] Name: CASSIA HOLLAND Rep #:[id number] : 1965 57 From: Lakshmi Appiah PCP: [...] deal with elevated blood pressure readings. Her wool hat finisher is Dr. Manzano. Last had Tylenol around 7 PM [facility] Medical History Abnormal bruising Abnormal exercise tolerance [...] Ox 97 95 97 Oxygen Delivery Method 04/29/23 05:42 Temperature Temperature Source Pulse Rate 77 [...] % (Auto) 60.3 Lymph % (Auto) 26.2 Forest % (Auto) 12.7 H Eos % (Auto) [...] Signed: Rey Bautista MD at 2:02 EST Reading Location ID and State: [facility] / [place] Tel , Service support , Rhythm Strip Rhythm Strip: Sinus Rhythm [...] was largely normal. I would recommend avoiding pmlr-iez-gmxgchb decongestants as these can raise your blood pressure. I would recommend continuing regular Mucinex to help thin out secretions in your chest and sinuses. Disposition Disposition: Home, Self Care What to do if you have Problems For any increased pain, shortness of breath, bleeding, nausea or vomiting, chestpain, or any unexpected problems, contact your Primary Care Provider. Call [facility] ([phone]) or report to the closest Emergency Room. Call 911 if necessary. 04/29/23 0544 <Electronically signed by Lakshmi Resendiz DO> Cosigner Signature (if applicable): CC: Dr. Opal Mathews MD ~ Signed [facility] Work Phone: 1(143) 114-259412-11-2023 History of Present illness Narrative* Rubi Araya PA-C - 04/16/2023 4:24 PM EST This note was created using Gen3 Partnersriter. Subjective Cassia Holland is a 57 year old female. HPI Presents with nausea, low-grade fever, body aches since this morning. She states she was exposed toCOVID and influenza. She was visiting her mother at the skilled nursing and it was going around the skilled nursing. She also was exposed to COVID by [...] severe allergic reaction 2 Each 1 lancets ([employer] CoatingTOUCH DELICA PLUS LANCET) 33 gauge Test blood sugar(s) 1 times daily. Dx: Type 2 DM - Controlled E11.9 Insulin: No 100 Each 11 blood sugar diagnostic ([facility] Call[facility] ULTRA TEST) test strip use 1 TEST [...] injection (DEFINITY) INTRAVENOUS DIRECTED PRN Shahriar Brown APRN.ANTHONY sodium chloride 0.9 % (flush) 10 mL (BD POSIFLUSH) 10 mL INTRAVENOUS DIRECTED PRN Shahriar Brown APRN.NURSE STAFF PAST SURGICAL HISTORY Procedure Laterality Date D [...] ROUTINE Rubi Araya PA-C documented in this encounterCleveland Clinic [facility]11-22-2023 History of Present illness Narrative* Shahriar Brown APRN.[facility] - 03/28/2023 3:34 PM EST CC: Patient presents with: Follow Up: Hypertension and thyroid HPI Cassia Holland is a 57 year old female who presents today for new onset A-fib. Has been in the ER again at [facility] for palpitations since last being seen for new onset A-fib found in other ER visit 4 weeks ago. Saw her wool hat finisher and is scheduling an ablation. Records not available for review. Per patient they switched her BP pills at request of wool hat finisher. Per cardiology note. Amlodipine was stopped and cardizem increased. No further palpitations, chest pain, or shortness of breath. BP at home [id number] REVIEW OF SYSTEMS General: no fevers, no [...] severe allergic reaction^Disp: 2 Each^Rfl: 1 lancets ([facility] DELICA PLUS LANCET) 33 gauge^Test blood sugar(s) [...] done Influenza Vaccine(1) due on 01/05/2023 Covid-19 Vaccine( season) due on 01/05/2023 Colorectal Cancer Screening [...] Testing Discontinued DATA REVIEWED: [facility] chart from [facility] reviewed. [facility] records requested [...] plan. Shahriar Brown APRN.ANTHONY documented in this encounterCleveland Clinic [facility]11-14-2023 Miscellaneous Notes* Telephone Encounter - Elicia Gardner [...] you. Elicia Gardner LPN. documented in this encounterCleveland Clinic [facility]11-09-2023 Miscellaneous Notes* Telephone Encounter - Shahriar Brown APRN.CNP - 03/15/2023 11:57 AM EST Was reviewed in appointment with Ivett. Shahriar Brown APRN.ANTHONY documented in this encounterCleveland Clinic [facility]11-06-2023 History of Present illness Narrative* Ivett Dunn [...] sick since she was seen at the [facility] 01/27. Has had extensive sinus issues [...] severe allergic reaction^Disp: 2 Each^Rfl: 1 lancets ([facility] DELICA PLUS LANCET) 33 gauge^Test blood sugar(s) 1 times daily. Dx: Type 2 DM - Controlled E11.9 Insulin: No^Disp: 100 Each^Rfl: 11 blood sugar diagnostic ([facility] On CallUCH ULTRA TEST) test strip^use 1 TEST STRIP [...] flu testing ordered; Results [facility]be [facility] 24[facility] hours. Explained to patient that [...] plan. Ivett Dunn PA-C documented in this encounterCleveland Clinic [facility]10-26-2023 Miscellaneous Notes* Telephone Encounter - Ellis Sykes Ma - 03/01/2023 4:13 PM EDT Patient last visit 02/28/23 Follow up appointment scheduled 03/28/23 Ellis Sykes Ma documented in this encounterCleveland Clinic [facility]10-25-2023 History of Present illness Narrative* Shahriar Brown APRN.NURSE STAFF - 02/28/2023 10:55 AM EDT CC: Patient presents with: Recheck: ER follow up, AFIB HPI Cassia Holland is a 57 year old female who presents today for routine follow-up but was in ER yesterday for new onset A-fib. Facility: [facility] Date of visit: 02/27/23. Sudden onset [...] severe allergic reaction^Disp: 2 Each^Rfl: 1 lancets ([facility] DELICA PLUS LANCET) 33 gauge^Test blood sugar(s) 1 times daily. Dx: Type 2 DM - Controlled E11.9 Insulin: No^Disp: 100 Each^Rfl: 11 blood sugar diagnostic ([facility] On Call[facility] ULTRA TEST) test strip^use 1 TEST STRIP [...] Testing Discontinued DATA REVIEWED: Outside chart from [facility] reviewed. ASSESSMENT/PLAN: 1. New onset a-fib [...] at upcoming appointment. - HGB A1C Shahriar Brwon APRN.CNP Prescription instructions reviewed with patient as applicable. Potential red flag symptoms discussed with the patient. Reviewed appropriate action plan to take if red flag symptoms occur. Patient agreeable to treatment plan. Shahrira Brown APRN.CNP documented in this encounterCleveland Clinic [facility]09-20-2023 Procedure [facility]08-27-2023 History of Present illness Narrative* John [...] with plan of care. Be seen at [facility] for further evaluation care. John Rodriguez APRN.CNP documented in this encounterCleveland Clinic [facility]08-24-2023 Progress note Author Alicia Manzano [facility] December 28, 2022 9:14am Note Date/Time December 28, 2022 9: 14am [facility] Medical Records Department [address] [place] [address] Progress Note 12/28/22913 MR#: [id number] Acct: [id number] Name: CASSIA HOLLAND Rep #:[id number] : 1965 57 From: Alicia Manzano MD PCP: Dr. Opal Mathews MD Status:ADM I NO Location: [place] [address] Progress Note Patient not on statin because of her elevated ALT/AST. Last LDL cholesterol 80 mg/dL. We will continue follow-up as outpatient. 12/28/22 0914 <Electronically signed by Alicia Manzano MD> Alicia Manzano MD Cosigner Signature (if applicable): CC: ~ Signed [facility] Work Phone: [phone]) 265-221408-23-2023 Discharge summary Author Alicia Manzano [facility] December 27, 2022 1:05pm Note Date/Time December 27, 2022 1: 03pm [facility] Medical Records Department [address] [place] [address] Instructions for Home/Discharge Instructions 12/27/22 1302 MR#: [id number] Acct: [id number] Name: CASSIA HOLLAND Rep #:[id number] : 1965 57 From: Alicia Manzano MD [...] CC: Dr. Opal Mathews MD ~ Signed [facility] Work Phone: [phone] Instructions* Patient Instructions* Shahriar Brown APRN.CNP - 12/20/2022 5:35 PM EDT Get compression socks and wear during the day to help decrease edema. Elevate legs as able documented in this encounterCleveland Clinic [facility]08-16-2023 History of Present illness Narrative* Shahriar Brown [...] with elevation or in AM. Has a [place] job and is standing all day in [...] severe allergic reaction^Disp: 2 Each^Rfl: 1 lancets ([facility] DELICA PLUS LANCET) 33 gauge^Test blood sugar(s) 1 times daily. Dx: Type 2 DM - Controlled E11.9 Insulin: No^Disp: 100 Each^Rfl: 11 blood sugar diagnostic ([facility] Call[facility] ULTRA TEST) test strip^use 1 TEST STRIP [...] plan. Shahriar Brown APRN.CNP documented in this encounterCleveland Clinic [facility]08-15-2023 Miscellaneous Notes* Telephone Encounter - Tio Bentley [...] advise. Chloé Dhaliwal LPN documented in this encounterCleveland Clinic [facility]08-10-2023 History of Present illness Narrative* Shahriar Brown APRN.CNP - 12/14/2022 10:55 AM EDT CC: Patient presents with: Recheck: 3 month follow up HPI Cassia Holland is a 57 year old female who presents today for routine follow up but has been to the ER twice since last visit and 2 express care visit. 11/27 - went to [facility] for increase in RUQ pain and severe nausea. US of abdomen showed cirrhosis of liver which is not new for her and a possible gallbladder polyp. CT showed 5mm possible ureter stone. Had a CT urogram by Dr. Wylie last week which per patient was normal. Has EGD scheduled with her car wrecker for ongoing nausea and pain in January. Repeat abdominal CT on 12/07 with no concerns outside of her known liver disease. RUQ pain is at baseline except last night had episode after eating a large meal of bulgarian fries andBBQ sandwich. Self resolved during the night No vomiting, diarrhea, fever, chest pain, shortness of breath, or palpitations. 12/03 - went back to [facility] for RLE swelling and red without [...] Has a heart cath being performed by [facility] at the end of this [...] severe allergic reaction^Disp: 2 Each^Rfl: 1 lancets ([facility] DELICA PLUS LANCET) 33 gauge^Test blood sugar(s) 1 times daily. Dx: Type 2 DM - Controlled E11.9 Insulin: No^Disp: 100 Each^Rfl: 11 blood sugar diagnostic ([facility] Call[facility] ULTRA TEST) test strip^use 1 TEST STRIP [...] TESTING Discontinued DATA REVIEWED: Outside chart from [facility] reviewed. ASSESSMENT/PLAN: 1. Cellulitis of right [...] baseline - continue with upcoming EGD with [employer] Operator - if negative or no cause for [...] occur. Patient agreeable to treatment plan. Shahriar Older, CHILLER OPERATOR.NURSE STAFF documented in this encounterCleveland Clinic [facility]08-05-2023 History of Present illness Narrative* John Rodriguez APRN.CNP - 12/09/2022 3:00 PM EDT [...] severe allergic reaction^Disp: 2 Each^Rfl: 1 lancets ([facility] DELICA PLUS LANCET) 33 gauge^Test blood sugar(s) 1 times daily. Dx: Type 2 DM - Controlled E11.9 Insulin: No^Disp: 100 Each^Rfl: 11 blood sugar diagnostic ([facility] ULTRA TEST) test strip^use 1 TEST STRIP [...] of care. This note was generated using tripJane software. It may contain errors in wording, punctuation, or spelling. John Rodriguez APRN.ANTHONY * John Rodriguez APRN.CNP - 12/09/2022 2:55 PM EDT Subjective HPI ROS Objective Physical Exam documented in this encounterCleveland Clinic [facility]07-30-2023 History of Present illness Narrative* Rubi Araya PA-C - 12/03/2022 11:17 AM EDT This note was created using [employer]. Subjective Cassia Holland is a 57 year [...] severe allergic reaction 2 Each 1 lancets ([employer] Crystech CoatingTOUCH DELICA PLUS LANCET) 33 gauge Test blood [...] 10 mL INTRAVENOUS DIRECTED PRN Shahriar Brown APRN.NURSE STAFF PAST SURGICAL HISTORY Procedure Laterality Date D [...] the emergency department. She will go to [facility] ER. Rubi Araya PA-C documented in this encounterCleveland Clinic [facility]07-17-2023 Miscellaneous Notes* Telephone Encounter - Travon Cerrato [...] daily. Deepti Hedrick LPN documented in this encounterCleveland Clinic [facility]07-07-2023 Miscellaneous Notes* Letter - Coordinator, Mammography - 11/10/2022 8:27 AM EDT November 13, 2022 PID: [id number] Cassia Holland [address] [place] [address] Dear Ms. Holland, We are pleased to [...] report will be [facility] on [facility] at [facility] as part of your permanent medical record and are available for your continuing care. Thank you for allowing us to help in meeting your health care needs. Sincerely, Dr. Elam Interpreting Radiologist [facility] (Normal over 40) documented in this encounterCleveland Clinic [facility]06-26-2023 Miscellaneous Notes* Telephone Encounter - Michelle Judd [...] you. Michelle Judd LPN documented in this encounterCleveland Clinic [facility]06-08-2023 Instructions* Patient Instructions* Chhaya Crowe MD - 10/12/2022 10:49 AM EDT - Use prescribed creams BID for 2 weeks. If symptoms return, call the office for a follow up appointment and would recommend biopsy at that time. If symptoms improve, can start estrogen cream nightlyfor 2 weeks and then 2 days a week documented in this encounterCleveland Clinic [facility]06-08-2023 History of Present illness Narrative* Chhaya Crowe MD - 10/12/2022 9:39 AM EDT Nursing Administrator offered: Patient declines. Cassia is a 57 year old who presents for an annual gynecologic exam with complaints, fatigue . Postmenopausal: Yes HRT use: No. History of abnormal pap: No - no LEEP or CKC Last mammogram: 2021 had diagnostic imaging, dense breast tissue Patient concerns for STD exposure: No. OB History T0 L0 SAB0 IAB0 Ectopic0 Multiple0 Live Births0 Sustainability Coach History LMP: Hysterectomy Age at Menarche: Age at First : Age at Menopause: Sustainability Coach History Comments: Sexual Activity: Not Currently; No [...] and swelling present, normal Bartholin's glands, urethra, Azle's glands, no vulvar lesions, good vaginal support, [...] needed Chhaya Crowe DO documented in this encounterCleveland Clinic [facility]06-05-2023 Miscellaneous Notes* Telephone Encounter - Michelle Judd LPN - 10/09/2022 10:18 AM EDT Patient has [...] you. Michelle Judd LPN documented in this encounterCleveland Clinic [facility]05-18-2023 History of Present illness Narrative* Ariadna Pérez RDMS - 09/21/2022 7:00 AM EDT Radiology Service Progress Note PATIENT NAME: Cassia Hloland DATE OF SERVICE: September 21, 2022 TIME: [...] 21, 2022 7:31 AM documented in this encounterCleveland Clinic [facility]05-11-2023 History of Present illness Narrative* Shahriar Brown [...] to achy pressure to RUQ. Sees her car wrecker at the end of October for follow [...] plan. Shahriar Brown APRN.CNP documented in this encounterCleveland Clinic [facility]05-01-2023 History of Present illness Narrative* Shahriar Brown [...] severe allergic reaction^Disp: 2 Each^Rfl: 1 lancets ([employer] Crystech CoatingTOUCH DELICA PLUS LANCET) 33 gauge^Test blood sugar(s) 1 times daily. Dx: Type 2 DM - Controlled E11.9 Insulin: No^Disp: 100 Each^Rfl: 11 blood sugar diagnostic ([facility] Call[facility] ULTRA TEST) test strip^use 1 TEST STRIP [...] plan. Shahriar Brown APRN.CNP documented in this encounterCleveland Clinic [facility]04-24-2023 Miscellaneous Notes* Telephone Encounter - Julieta Campuzano Ma - 08/28/2022 4:05 PM EDT Spoke with patient, will come and get labs done. [facility] states Endocrinology will coming to [place] int next month. * Telephone Encounter - Shahriar Brown APRN.CNP - 08/28/2022 8:49 AM EDT Please let patient know below information. We can recheck her thyroid levels and continue to monitor this. Once resulted, if abnormal, can send again to [facility] but I can try to have her schedule with endocrinology through [facility] which would require going outside of [place] travel. Thank you Shahriar Brown APRN.CNP * Telephone Encounter - Yamile Garrett LPN - 08/25/2022 9:13 AM EDT [facility] calling states there was a referral sent over on pt .Doctor viewed this and states no reason for them to see her because all her tests are normal. documented in this encounterCleveland Clinic [facility]04-13-2023 History of Present illness Narrative* Shahriar Brown, CHILLER OPERATOR.NURSE STAFF - 08/17/2022 8:39 AM EDT CC: Patient [...] severe allergic reaction^Disp: 2 Each^Rfl: 1 lancets ([facility] DELICA PLUS LANCET) 33 gauge^Test blood sugar(s) 1 times daily. Dx: Type 2 DM - Controlled E11.9 Insulin: No^Disp: 100 Each^Rfl: 11 blood sugar diagnostic ([facility] ULTRA TEST) test strip^use 1 TEST STRIP [...] send to endocrinology, patient wants faxed to [facility] - CONSULT TO ENDOCRINOLOGY 2. History [...] plan. Shahriar Brown APRN.CNP documented in this encounterCleveland Clinic [facility]03-23-2023 Miscellaneous Notes* Telephone Encounter - Shahriar Brown APRN.CNP - 07/27/2022 4:11 PM EDT Noted. Shahriar Brown APRN.CNP * Telephone Encounter - Samuel Cox RN - 07/27/2022 1:13 PM EDT Faxed cardiology referral to [facility], per patient request. States it is more convenientfor her to see cardiology there. Asking message be sent to Toni Tompkins, to let her know. documented in this encounterCleveland Clinic [facility]03-22-2023 Miscellaneous Notes* Telephone Encounter - Alcira Parikh RN - 07/26/2022 2:18 PM EDT Spoke to pt. States she is unavailable to come on Mondays due to her work schedule. This nurse informed her that we are currently only offering Cardiology in [place] on Mondays. Pt. states she is willing to drive to [place] for Cardiology services and that she will [...] can be seen sooner. documented in this encounterCleveland Clinic [facility]03-22-2023 Miscellaneous Notes* Telephone Encounter - Reyna Lamb [...] evaluation of this. Thank you Shahriar Brown APRN.CNP documented in this encounterCleveland Clinic [facility]03-17-2023 Miscellaneous Notes* Telephone Encounter - Julieta Campuzano [...] pt. Christina Ray LPN documented in this encounterCleveland Clinic [facility]03-13-2023 Miscellaneous Notes* Addendum Note - Opal Mathews MD - 07/17/2022 4:48 PM EDTAddended by: OPAL MATHEWS on: 07/17/2022 04:48 PM Modules accepted: Orders documented in this encounterCleveland Clinic [facility]03-13-2023 History of Present illness Narrative* Opal Mathews [...] itching. 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 - has an ongoing uti. He is seeing uro-DISPLAY ASSOCIATE and was given Macrobid which she is [...] EPINEPHrine (EPIPEN) 0.3 mg/0.3 mL auto-injector lancets ([employer]ste[employer] CoatingTOUCH DELICA PLUS LANCET) 33 gauge blood sugar [...] ROUTINE Opal Mathews MD documented in this encounterCleveland Clinic [facility]03-07-2023 Miscellaneous Notes* Telephone Encounter - Aubree Garcia [...] you. Aubree Garcia LPN documented in this encounterCleveland Clinic [facility]02-20-2023 History of Present illness Narrative* Shahriar Brown APRN.NURSE STAFF - 06/26/2022 8:27 AM EST CC: Patient [...] severe allergic reaction^Disp: 2 Each^Rfl: 1 lancets ([employer] DELICA PLUS LANCET) 33 gauge^Test blood sugar(s) 1 times daily. Dx: Type 2 DM - Controlled E11.9 Insulin: No^Disp: 100 Each^Rfl: 11 blood sugar diagnostic ([facility] CallUCH ULTRA TEST) test strip^use 1 TEST STRIP [...] disorders. Will have her discuss with her transfer iron operator to see if this chronic inflammation is [...] plan. Shahriar Brown APRN.CNP documented in this encounterCleveland Clinic [facility]02-17-2023 Miscellaneous Notes* Telephone Encounter - Shahriar Brown APRN.CNP - 06/23/2022 3:22 PM EST Lab work reviewed. Will review with patient at upcoming visit. Shahriar Brown APRN.CNP * Telephone Encounter - Julieta Campuzano Ma - 06/22/2022 1:41 PM EST No current lab work completed at [facility]. Last blood work printed and given to provider. * Telephone Encounter - Shahriar Brown APRN.CNP - 06/22/2022 12:54 PM EST Please see if patient has any previous lab work at [facility] to compare current lab results to. Thank you Shahriar Brown APRN.CNP documented in this encounterCleveland Clinic [facility]02-09-2023 History of Present illness Narrative* Shahriar Brown [...] severe allergic reaction^Disp: 2 Each^Rfl: 1 lancets ([employer] Cryste[employer] CoatingTOUCH DELICA PLUS LANCET) 33 gauge^Test blood sugar(s) 1 times daily. Dx: Type 2 DM - Controlled E11.9 Insulin: No^Disp: 100 Each^Rfl: 11 blood sugar diagnostic ([employer]ste[employer] CoatingTOUCH ULTRA TEST) test strip^use 1 TEST STRIP [...] enlargement and left ventricular hypertrophy INTERVALS: Normal [place] interval QRS COMPLEX: Normal ST SEGMENT: Normal [...] history of lupus she sees an outside transfer iron operator for so may need to contact office [...] plan. Shahriar Brown APRN.ANTHONY documented in this encounterCleveland Clinic [facility]02-07-2023 Miscellaneous Notes* Telephone Encounter - Ariane Anton LPN - 06/13/2022 3:00 PM EST Rec'd approval for nebivolol hcl 06/12/22 to 06/12/23. documented in this encounterCleveland Clinic [facility]02-06-2023 Miscellaneous Notes* Telephone Encounter - Marisabel Sarabia RN - 06/12/2022 9:44 AM EST Mauro with [facility] calling and requesting most recent OV note for patient for prior authorization process for shayy. Faxed as requested to Mauro at [phone]. Marisabel Sarabia RN documented in this encounterCleveland Clinic [facility]12-15-2022 Miscellaneous Notes* Telephone Encounter - Julieta Campuzano Ma - 04/20/2022 7:49 AM EST [employer]hart message sent to patient, no number on paper work to have them Faxed. * Telephone Encounter - Shahriar Brown APRN.CNP - 04/20/2022 7:36 AM EST Please fax papers as requested and then update patient this has been completed. Thank you Shahriar Brown APRN.CNP documented in this encounterCleveland Clinic [facility]12-15-2022 Miscellaneous Notes* Telephone Encounter - Shahriar Brown APRN.CNP - 04/20/2022 7:26 AM EST Addressed in other mychart encounter. Shahriar Brown APRN.CNP documented in this encounterCleveland Clinic [facility]12-14-2022 History of Present illness Narrative* Do Delgado RT(R) - 04/19/2022 9:30 AM EST Radiology [...] 19, 2022 9:28 AM documented in this encounterCleveland Clinic [facility]12-14-2022 Miscellaneous Notes* Telephone Encounter - Shahriar Brown APRN.CNP - 04/19/2022 8:38 AM EST See other my chart encounter Shahriar Brown APRN.CNP documented in this encounterCleveland Clinic [facility]12-12-2022 History of Present illness Narrative* Shahriar Brown [...] per directed for severe allergic reaction lancets ([employer] Cryste[employer] CoatingTOUCH DELICA PLUS LANCET) 33 gauge Test blood sugar(s) 1 times daily. Dx: Type 2 DM - Controlled E11.9 Insulin: No blood sugar diagnostic ([employer] CoatingTOUCH ULTRA TEST) test strip use 1 TEST [...] plan. Shahriar Brown APRN.CNP documented in this encounterCleveland Clinic [facility]11-11-2022 Miscellaneous Notes* Telephone Encounter - Marisabel Sarabia RN - 03/17/2022 11:00 AM EST Patient requesting Urology referral order and information be faxed to Dr. Wylie's office at [phone]. Faxed as requested. Marisabel Sarabia RN documented in this encounterCleveland Clinic [facility]11-11-2022 Miscellaneous Notes* Telephone Encounter - Shahriar Brown APRN.CNP - 03/17/2022 8:35 AM EST See other my chart encounter. Shahriar Brown APRN.CNP documented in this encounterCleveland Clinic [facility]11-03-2022 Miscellaneous Notes* Telephone Encounter - Yanci Horowitz [...] advise. Yanci Horowitz LPN documented in this encounterCleveland Clinic [facility]10-21-2022 Miscellaneous Notes* Telephone Encounter - Julieta Campuzano Ma - 02/24/2022 9:26 AM EDT Left detailed message on [employer]. * Telephone Encounter - Shahriar Brown APRN.NURSE STAFF - 02/24/2022 7:21 AM EDT Please let patient know her urine does indicate a UTI. I am starting her on Keflex/Cephalexin twicea day for 7 days. I do not have the culture back yet, but will let her know once I do. Thank you Shahriar Brown APRN.NURSE STAFF documented in this encounterCleveland Clinic [facility]10-14-2022 Miscellaneous Notes* Telephone Encounter - Opal Mathews MD - 02/17/2022 5:38 PM EDT Tracy, Could you please address this, Thanks documented in this encounterCleveland Clinic [facility]10-12-2022 Miscellaneous Notes* Telephone Encounter - Meg Myers LPN - 02/15/2022 9:37 AM EDT Patient telephoned and made aware. Meg Myers LPN * Telephone Encounter - Tracy Mendes APRN.NURSE STAFF - 02/15/2022 8:21 AM EDT Please call patient and let her know her COVID-19 test and flu testing are negative. Tracy Mendes APRN.ANTHONY documented in this encounterCleveland Clinic [facility]10-11-2022 History of Present illness Narrative* Tracy Mendes [...] for similar symptoms. Follows with ENT in [place] for allergies. Denies wheezing, dyspnea, nausea, vomiting [...] per directed for severe allergic reaction lancets ([employer] Cryste[employer] CoatingTOUCH DELICA PLUS LANCET) 33 gauge Test blood sugar(s) 1 times daily. Dx: Type 2 DM - Controlled E11.9 Insulin: No blood sugar diagnostic ([employer]ste[employer] CoatingTOUCH ULTRA TEST) test strip use 1 TEST [...] which included preparing to see the patient, [id number] patient care, completing clinical documentation, obtaining and/or reviewing separately obtained history, performing a medically appropriate examination, counseling and educating the pat ient/family/caregiver, and ordering medications, tests, or procedures. documented in this encounterCleveland Clinic [facility]10-04-2022 History of Present illness Narrative* Kathy Alejandre [...] per directed for severe allergic reaction lancets ([employer] Call[facility] DELICA PLUS LANCET) 33 gauge Test blood sugar(s) 1 times daily. Dx: Type 2 DM - Controlled E11.9 Insulin: No blood sugar diagnostic ([facility] On CallUCH ULTRA TEST) test strip use 1 TEST [...] Discussed expected course of illness Kathy Alejandre APRN.NURSE STAFF documented in this encounterCleveland Clinic [facility]10-04-2022 Instructions* Patient Instructions* Kathy Alejandre APRN.CNP - [...] to your local emergency facility: Notify the clay dry press mixer operator that you are seeking care for [...] can be around others. documented in this encounterCleveland Clinic [facility]09-15-2022 History of Present illness Narrative* Shahriar Brown [...] per directed for severe allergic reaction lancets ([employer] CoatingTOUCH DELICA PLUS LANCET) 33 gauge Test blood sugar(s) 1 times daily. Dx: Type 2 DM - Controlled E11.9 Insulin: No blood sugar diagnostic ([employer] CoatingTOUCH ULTRA TEST) test strip use 1 TEST [...] plan. Shahriar Brown APRN.CNP documented in this encounterCleveland Clinic [facility]08-15-2022 Miscellaneous Notes* Telephone Encounter - Michelle Judd [...] you. Michelle Judd LPN documented in this encounterCleveland Clinic [facility]08-03-2022 Miscellaneous Notes* Telephone Encounter - Julieta Campuzano [...] EDT Please get liver scan results from [facility] and lay on my desk. Thank you Shahriar Brown APRN.CNP documented in this encounterCleveland Clinic [facility]07-17-2022 History of Present illness Narrative* Kathy Alejandre [...] per directed for severe allergic reaction lancets ([employer] CoatingTOUCH DELICA PLUS LANCET) 33 gauge Test blood [...] illness Kathy Alejandre APRN.CNP documented in this encounterCleveland Clinic [facility]07-17-2022 Instructions* Patient Instructions* Kathy Alejandre APRN.CNP - [...] Discussed expected course of illness Kathy Alejandre APRN.NURSE STAFF Beginning Home Isolation Isolation is used to [...] to your local emergency facility: Notify the clay dry press mixer operator that you are seeking care for [...] or concerning to you. documented in this encounterC[facility] Clinic [facility]07-13-2022 Miscellaneous Notes* Telephone Encounter - Christina Ray [...] you. Christina Ray LPN documented in this encounterC[facility] Clinic [facility]06-29-2022 History of Present illness Narrative* RT Negrito(R) [...] 02, 2021 2:32 PM documented in this encounterCleveland Clinic [facility]06-15-2022 Miscellaneous Notes* Telephone Encounter - Tonie Day LPN - 10/19/2021 9:49 AM EDT [facility] Ultrasound calling asking for copy of report for RUQ ultrasound and spleen to be faxed to [phone]. Printed reports and faxed as requested. * Telephone Encounter - Julieta Campuzano Ma - 10/19/2021 8:22 AM EDT Order faxed. * Telephone Encounter - Shahriar Brown APRN.CNP - 10/17/2021 4:19 PM EDT Please fax order to [facility]. Thank you Shahriar Brown APRN.CNP documented in this encounterCleveland Clinic [facility]06-09-2022 History of Present illness Narrative* Karen Duong RT(R) - 10/13/2021 8:40 AM EDT Radiology Service Progress Note PATIENT NAME: Cassia Holland DATE OF SERVICE: October 13, 2021 TIME: [...] 13, 2021 8:41 AM documented in this encounterCleveland Clinic [facility]06-09-2022 History of Present illness Narrative* Shahriar Brown [...] per directed for severe allergic reaction lancets ([employer] On CallU[employer] DELICA PLUS LANCET) 33 gauge Test blood [...] will further evaluate. Recent labs reviewed at [facility] No recent CMP completed, but CBC without [...] plan. Shahriar Brown APRN.CNP documented in this encounterCleveland Clinic [facility]06-06-2022 History of Present illness Narrative* Kathy Alejandre [...] history is provided by the patient. No computer language coder was used. UTI This is a new [...] per directed for severe allergic reaction lancets ([employer] On CallUCH DELICA PLUS LANCET) 33 gauge Test blood sugar(s) 1 times daily. Dx: Type 2 DM - Controlled E11.9 Insulin: No blood sugar diagnostic (Special[employer] On CallUCH ULTRA TEST) test strip use 1 TEST [...] result done 2 days ago at her transfer iron operator office which showed 2+ bacteria, 2+ leukocytes, nitrates. Kathy Alejandre APRN.ANTHONY TEACHING PROVIDER (Physician/PA/CHILLER OPERATOR) NOTE OF PERSONAL INVOLVEMENT IN CARE: I have personally seen and examined the patient and performed the medical decision-making components. I have reviewed the Advanced Practice Registered Nurse (CHILLER OPERATOR) Student's documentation and verified the findings in the note as written. Any additions or changes are noted in bold/italics. Signature: Kathy Alejandre Date: 10/10/2021 Time: 7:50 PM documented in this encounterCleveland Clinic [facility]06-06-2022 Instructions* Patient Instructions* Ximena Narvaez - 10/10/2021 6:27 PM EDT ASSESSMENT/PLAN: 1. Frequency of urination - ICD9: 788.41, ICD10: R35.0 acute - Send urine for culture - Begin treatment with Macrobid 100 mg BID for 5 days - Patient education for prevention given - UA DIP, URINE (POC) - URINE CULTURE Ximena Slentz, COLLEGE OR UNIVERSITY BUSINESS MANAGER student Patient Education for Female Urinary Tract [...] from front to back documented in this encounterCleveland Clinic [facility]05-19-2022 Miscellaneous Notes* Letter - Mammography Coordinator - 09/22/2021 11:17 AM EDT September 22, 2021 PID: [id number] Cassia Holland [address] [place] [address] Dear Ms. Holland, Your recent breast imaging [...] who ordered/prescribed your screening mammogram: Please call [phone] or EXT: [phone] to schedule an appointment for your additional [...] and reports are [facility] as part of your permanent medical record, and are available for your continuing care. Thank you for allowing us to help in meeting your health care needs. Sincerely, Dr. Swain Interpreting Radiologist [facility] (Additional imaging) documented in this encounterCleveland Clinic [facility]05-16-2022 Instructions* Patient Instructions* Dyana Valadez APRN.CNP - 09/19/2021 3:35 PM EDT 1. Routine course of ibuprofen X 1 week. 2. Ice to the area. 3. If no better or any worsening, let us know. documented in this encounterCleveland Clinic [facility]05-16-2022 History of Present illness Narrative* Dyana Valadez [...] Refers that it is hit or miss. [place] like it may be a little larger [...] per directed for severe allergic reaction lancets ([employer] CoatingTOUCH DELICA PLUS LANCET) 33 gauge Test blood [...] plan. This note was partially generated using [employer]Jane voice recognition system. Note was reviewed for accuracy. There may be minor misspellings or grammar miscues with [employer]Jane voice recognition. documented in this encounterCleveland Clinic [facility]04-04-2022 Miscellaneous Notes* Telephone Encounter - Elicia Kidd [...] review. Elicia Kidd MA documented in this encounterTriHealth note Author Ivett Welsh [facility] December 28, 2022 9:46am Note Date/Time December 28, 2022 9: 46am [facility] Medical Records Department [address] [place] [address] Counseling Note - Pharmacy 12/28/22945 MR#: [id number] Acct: [id number] Name: CASSIA HOLLAND Rep #:[id number] : 1965 57 From: Ivtet Welsh PCP: Dr. Opal Mathews MD Status:ADM I NO Y Location: [place] [address] Pharmacy [facility] has performed discharge [...] Signature (if applicable): Date CC: ~ Signed [facility] Work Phone: Evaluation note* Diagnosis Xyphoidalgia- Primary Disorder of bone and cartilage, unspecified documented in this encounter [facility]* Diagnosis Abnormal mammogram- Primary Abnormal mammogram, unspecified documented in this encounter [facility]* Diagnosis Frequency of urination- Primary Urinary frequency documented [facility] this encounter [facility] noteNo assessment information availableWUniversity Hospitals St. [facility] Work Phone: Evaluation note* Diagnosis Xyphoidalgia- Primary Disorder of bone and cartilage, unspecified RUQ pain Abdominal pain, right upper quadrant Nausea Nausea alone Type 2 diabetes mellitus without complication, without long-term current use of insulin (HCC) documented in this encounter [facility]* Diagnosis Elevated liver enzymes- Primary Other nonspecific abnormal serum enzyme levels Fatty liver Other chronic nonalcoholic liver disease documented in this encounter [facility]* Diagnosis Mastalgia Mastodynia documented in this encounter [facility]* Diagnosis Sore throat- Primary Acute pharyngitis Exposure to COVID-19 virus [facility] Diagnosis Liver fibrosis- Primary Cirrhosis of liver without mention of alcohol Elevated liver enzymes Other nonspecific abnormal serum enzyme levels [facility] Diagnosis Type 2 diabetes mellitus without [...] inoculation against influenza [facility] Diagnosis Suspected COVID-19 virus infection- Primary [facility] Diagnosis Upper respiratory symptom- Primary Other symptoms involving respiratory system and chest UTI symptoms Other symptoms involving urinary system [facility] Diagnosis Type 2 diabetes mellitus without complication, without long-term current use of insulin (HCC) [facility] Diagnosis Other acute sinusitis, recurrence not specified- Primary [facility] Diagnosis Fatigue, unspecified type- Primary Acute cough Shortness of breath [facility] Diagnosis Type 2 diabetes mellitus without complication, without long-term current use of insulin (HCC) documented in this encounter [facility] note* Diagnosis Chest pain, unspecified type- Primary Palpitations Headaches Type 2 diabetes mellitus without complication, without long-term current use of insulin (HCC) Hypertension, unspecified type documented in this encounter [facility] note* Diagnosis Chest pain, unspecified type- Primary Palpitations Type 2 diabetes mellitus without complication, without long-term current use of insulin (HCC) Hypertension, unspecified type Xyphoidalgia Disorder of bone and cartilage, unspecified Headaches documented in this encounter [facility] note* Diagnosis Viral illness- Primary Unspecified viral infection, in conditions classified elsewhere and of unspecified site documented in this encounter [facility] note* Diagnosis [facility]T [facility]ra[facility]ricular tachycardia) [facility] Primary Other specified cardiac dysrhythmias documented in this encounter [facility] note* Diagnosis Graves disease- Primary Toxic diffuse goiter without mention of thyrotoxic crisis or storm History of Srini thyroiditis Personal history of other endocrine, metabolic, and immunity disorders Hypertension, unspecified type Acute non-recurrent maxillary sinusitis documented in this encounter [facility] note* Diagnosis Graves disease- Primary Toxic diffuse goiter without mention of thyrotoxic crisis or storm History of Srini thyroiditis Personal history of other endocrine, metabolic, and immunity disorders Palpitations documented in this encounter [facility] note* Diagnosis Onset Date Resolution Status Chest pain chronic Diabetes chronic Essential hypertension chron ic Graves disease chronic Palpitations chronic Raynaud disease chronic [facility] Work Phone: Evaluation note* Diagnosis Acute recurrent sinusitis, unspecified location- Primary documented in this encounter [facility] note* Diagnosis Type 2 diabetes mellitus without complication, without long-term current use of insulin (HCC)- Primary Hypertension, unspecified type Liver fibrosis Cirrhosis of liver without mention of alcohol RUQ pain Abdominal pain, right upper quadrant Vaginal candidiasis Candidiasis of vulva and vagina Palpitations documented in this encounter [facility] note* Diagnosis Encounter for gynecological examination (general) (routine) without abnormal findings- Primary Encounter for screening mammogram for breast cancer Vaginal itching Pruritus of genital organs Dense breast tissue on mammogram Vulvar itching Pruritus of genital organs Vulvar candidiasis Candidiasis of vulva and vagina documented in this encounter [facility] note* Diagnosis Diabetes (HCC) Type II or unspecified type diabetes mellitus without mention of complication, not stated as uncontrolled documented in this encounter [facility] note* Diagnosis Onset Date Resolution Status Chest pain chronic Diabetes chronic Essential hypertension chron ic Graves disease chronic Palpitations chronic Raynaud disease chronic Coronary artery disease stone layer tricia Diabetes chronic Essential hypertension chron ic Graves disease chronic Raynaud disease [facility] Work Phone: Evaluation note* Diagnosis Leg swelling- Primary Swelling of limb documented in this encounter [facility] note* Diagnosis Bacterial sinusitis- Primary Unspecified sinusitis (chronic) documented in this encounter [facility] note* Diagnosis Onset Date Resolution Status Coronary artery disease stone layer tricia Diabetes chronic Essential hypertension chron ic Graves disease chronic Raynaud disease chronic [facility] Work Phone: Evaluation note* Diagnosis Cellulitis of right lower extremity- Primary Cellulitis and abscess of leg, except foot Subacute sinusitis, unspecified location RUQ pain Abdominal pain, right upper quadrant Liver fibrosis Cirrhosis of liver without mention of alcohol Type 2 diabetes mellitus without complication, without long-term current use of insulin (HCC) documented in this encounter [facility] note* Diagnosis Cellulitis of right lower extremity- Primary Cellulitis and abscess of leg, except foot Dependent edema Edema documented in this encounter [facility] note* Diagnosis Procedure not carried out- Primary Procedure not carried out for other reasons documented in this encounter [facility] note* Diagnosis Onset Date Resolution Status Coronary artery disease stone layer tricia Diabetes chronic Essential hypertension chron ic Graves disease chronic Raynaud disease chronic Dyspnea acute Coronary artery disease stone layer tricia Diabetes chronic Essential hypertension chron ic Graves disease chronic Raynaud disease chronic [facility] Work Phone: Evaluation note* Diagnosis Onset Date Resolution Status Coronary artery disease stone layer tricia Diabetes chronic Essential hypertension chron ic Graves disease chronic Raynaud disease chronic Coronary artery disease stone layer tricia Diabetes chronic Essential hypertension chron ic Graves disease chronic Raynaud disease chronic Dyspnea resolved Coronary artery disease stone layer tricia Diabetes chronic Dyslipidemia chronic Essential hypertension chron ic Graves disease chronic Raynaud disease chronic Dyspnea resolved [facility] Work Phone: Evaluation note* Diagnosis New onset a-fib (HCC)- Primary Atrial fibrillation Type 2 diabetes mellitus without complication, without long-term current use of insulin (HCC) [facility] Diagnosis Encounter for screening mammogram for breast cancer Dense breast tissue on mammogram [facility] Diagnosis Liver fibrosis Cirrhosis of liver without mention of alcohol [facility] Diagnosis Chronic sinusitis, unspecified location- Primary [facility] Diagnosis New onset a-fib (HCC)- Primary Atrial fibrillation documented in this encounter [facility] note* Diagnosis Onset Date Resolution Status Coronary artery disease stone layer tricia Diabetes chronic Essential hypertension chron ic Graves disease chronic Raynaud disease chronic Dyspnea resolved Coronary artery disease stone [place] tricia Diabetes chronic Dyslipidemia chronic Essential hypertension chron ic Graves disease chronic Raynaud disease chronic Dyspnea resolved Coronary artery disease stone [place] tricia Diabetes chronic Dyslipidemia chronic Essential hypertension chron ic Graves disease chronic Interstitial lung disease ch ronic Paroxysmal atrial fibrillation chronic Raynaud disease [facility] Work Phone: Evaluation note* Diagnosis Viral illness- Primary Unspecified viral infection, in conditions classified elsewhere and of unspecified site [facility] Diagnosis Onset Date Resolution Status Coronary artery disease stone layer tricia Diabetes chronic Dyslipidemia chronic Essential hypertension chron ic Graves disease chronic Raynaud disease chronic Dyspnea resolved Coronary artery disease stone [place] tricia Diabetes chronic Dyslipidemia chronic Essential hypertension chron ic Graves disease chronic Interstitial lung disease ch ronic Paroxysmal atrial fibrillation chronic Raynaud disease chronic Chest pain chronic Coronary artery disease stone layer tircia Diabetes chronic Dyslipidemia chronic Essential hypertension chron ic Graves disease chronic Interstitial lung disease ch ronic Paroxysmal atrial fibrillation chronic Raynaud disease [facility] Work Phone: Evaluation note* Diagnosis Type 2 diabetes mellitus without complication, without long-term current use of insulin (HCC) [facility] Diagnosis Right upper quadrant pain- Primary Abdominal pain, right upper quadrant [facility] Diagnosis Onset Date Resolution Status Coronary artery disease stone layer tricia Diabetes chronic Dyslipidemia chronic Essential hypertension chron ic Graves disease chronic Interstitial lung disease ch ronic Paroxysmal atrial fibrillation chronic Raynaud disease chronic Chest pain chronic Coronary artery disease stone [place] tricia Diabetes chronic Dyslipidemia chronic Essential hypertension chron ic Graves disease chronic Interstitial lung disease ch ronic Paroxysmal atrial fibrillation chronic Raynaud disease [facility] Work Phone: Evaluation note* Diagnosis Subacute sinusitis, unspecified location- Primary Hypertension, unspecified type Atrial fibrillation, unspecified type (HCC) Type 2 diabetes mellitus without complication, without long-term current use of insulin (HCC) Anemia, unspecified type documented in this encounter [facility] note* Diagnosis Anemia, unspecified type- Primary documented in this encounter [facility] note* Diagnosis Onset Date Resolution Status Chest pain chronic Coronary artery disease stone layer tricia Diabetes chronic Dyslipidemia chronic Essential hypertension chron ic Graves disease chronic Interstitial lung disease ch ronic Paroxysmal atrial fibrillation chronic Raynaud disease [facility] Work Phone: Evaluation note* Diagnosis Anemia, unspecified type- Primary Hypertension, unspecified type Type 2 diabetes mellitus without complication, without long-term current use of insulin (HCC) documented in this encounter [facility] note* Diagnosis Onset Date Resolution Status Chest pain chronic Coronary artery disease stone layer tricia Diabetes chronic Dyslipidemia chronic Essential hypertension chron ic Graves disease chronic Interstitial lung disease ch ronic Paroxysmal atrial fibrillation chronic Raynaud disease chronic Coronary artery disease stone [place] tricia Diabetes chronic Dyslipidemia chronic Essential hypertension chron ic Graves disease chronic Interstitial lung disease ch ronic Paroxysmal atrial fibrillation chronic Raynaud disease [facility] Work Phone: Evaluation note* Diagnosis Paroxysmal atrial fibrillation Atrial fibrillation documented in this encounter [facility] note* Diagnosis Paroxysmal atrial fibrillation Atrial fibrillation Paroxysmal atrial fibrillation Atrial fibrillation documented in this encounter [facility] note* Diagnosis UTI symptoms- Primary Other symptoms involving urinary system documented in this encounter [facility] note* Diagnosis Encounter for screening mammogram for breast cancer documented in this encounter [facility] note* Diagnosis Type 2 diabetes mellitus without complication, without long-term current use of insulin (HCC)- Primary Other fatigue HERMILO (obstructive sleep apnea) Obstructive sleep apnea (adult) (pediatric) Atrial fibrillation, unspecified type (HCC) Hypertension, unspecified type Anemia, unspecified type Lupus (HCC) Systemic lupus erythematosus documented in this encounter [facility] note* Diagnosis Encounter for screening mammogram for breast cancer documented in this encounter [facility] note* Diagnosis Other fatigue- Primary HERMILO (obstructive sleep apnea) Obstructive sleep apnea (adult) (pediatric) Hypertension, unspecified type Anxiety and depression Dysthymic disorder Type 2 diabetes mellitus without complication, without long-term current use of insulin (HCC) [facility] Diagnosis Encounter for gynecological examination (general) (routine) without abnormal findings- Primary Encounter for screening mammogram for breast cancer documented [facility] Diagnosis Fatigue, unspecified type Acute cough Shortness of breath [facility] Diagnosis Type 2 diabetes mellitus without complication, without long-term current use of insulin (HCC) documented [facility] Diagnosis Other fatigue- Primary Hypertension, unspecified type Anxiety and depression Dysthymic disorder Encounter for immunization Need for other specified prophylactic vaccination against single bacterial disease [facility] Diagnosis Anemia, unspecified type- Primary [facility] Diagnosis Acute midline low back pain without sciatica- Primary Hypertension, unspecified type [facility] Diagnosis Interstitial lung disease (HCC)- Primary [...] (HCC) Atrial fibrillation [facility] Diagnosis Subacute sinusitis, unspecified location- Primary [facility] Diagnosis Diabetes (HCC) Type II or unspecified type diabetes mellitus without mention of complication, not stated as uncontrolled [facility] Diagnosis Anemia, unspecified type- Primary documented [facility] Diagnosis Anemia, unspecified type- Primary Type 2 diabetes mellitus without complication, without long-term current use of insulin (HCC) [facility]* Diagnosis Type 2 diabetes mellitus without complication, without long-term current use of insulin (HCC) [facility] Diagnosis Dog scratch- Primary Other and unspecified superficial injury of other, multiple, and unspecified sites, without mention of infection Bleeding from wound Secondary and recurrent hemorrhage as an early complication of trauma [facility] Diagnosis Puncture wound of right foot, initial encounter- Primary Not up to date with diphtheria-tetanus vaccination [facility] Diagnosis Type 2 diabetes mellitus without complication, without long-term current use of insulin (HCC) [facility] Diagnosis Other fatigue- Primary documented in this encounter [facility] Discharge instructions Additional Instructions Use the Liban wrap for comfort, ice and elevate. Return for any worsening symptoms [facility] Work Phone: Hospital Discharge instructionsAmbulatory Orders* Phase II, Outpatient Cardiac Rehab Location: None Selected [facility] Work Phone: Hospital Discharge instructions Additional Instructions [...] Please call the cardiology office for follow-up appointment.[facility] Work Phone: Hospital Discharge instructions Additional Instructions Please continue taking all your medications as prescribed. If you do not have issues with your blood pressure being more elevated than normal please follow-up with your primary care doctor. If you develop chest pain further concerns please return to the emergency room. Your workup today was largely normal. I would recommend avoiding [id number] decongestants as these can raise your blood pressure. I would recommend continuing regular Mucinex to help thin out secretions in your chest and sinuses.[facility] Work Phone: Reason for referral (narrative)* Diagnostic Procedure Only (Routine) - Pending Review Specialty Diagnoses / Procedures Referred By Abeba t Referred To Contact [facility] Diagnoses Abnormal mammogram Procedures MIN DIAGNOSTIC RT DIAGNOSTIC MAMMOGRAPHY COMPUTER-AIDED DETCJ Hui Tijerina, BOOKER.NURSE STAFF [address] [address] [facility] [address] [place] [address] Referral ID Status Reason Start Date Expiration Date Visits Requested Visits Authorized [id number] Pending Review Auto-Generat ed Referral 09/26/2021 10/26/2022 1 1 * Diagnostic Procedure Only (Routine) - Pending Review Specialty Diagnoses / Procedures Referred By Contac t Referred To Contact [facility] Diagnoses Abnormal mammogram Procedures US BREAST LTD RT US BREAST UNI REAL TIME WITH IMAGE LIMITED Hui Lewis APRN.CNP [address] [place] [address] [facility] [address] [place] [address] Referral ID Status Reason Start Date Expiration Date Visits Requested Visits Authorized [id number] Pending Review Auto-Generat ed Referral 09/26/2021 10/26/2022 1 1 [facility] for referral (narrative)* Diagnostic Procedure Only (Routine) - Closed Specialty Diagnoses / Procedures Referred By Contac t Referred To Contact [facility] IMAG[facility] Diagnoses Type 2 diabetes mellitus without complication, without long-term current use of insulin (HCC) Procedures XR STERNUM 2V DESAI/LAT RADEX STERNUM MINIMUM 2 VIEWS Shahriar Brown APRN.NURSE STAFF [address] [place] [address] Xr [facility] Referral ID Status Reason Start Date Expiration Date V isits Requested Visits Authorized [id number] Closed Auto-Generate d Referral 10/13/2021 05/06/2022 1 1 * Diagnostic Procedure Only (Routine) - Closed Specialty Diagnoses / Procedures Referred By Contac t Referred To Contact [facility] Diagnoses Type 2 diabetes mellitus without complication, without long-term current use of insulin (HCC) RUQ pain Nausea Procedures US ABD RT UPPER QUADRANT US ABDOMINAL REAL TIME W/IMAGE LIMITED Shahriar Brown APRN.CNP [address] [place] [address] [facility] Imaging Referral ID Status Reason Start Date Expiration Date V isits Requested Visits Authorized [id number] Closed Auto-Generate d Referral 10/13/2021 05/06/2022 1 1 [facility] for referral (narrative)* Outpatient Procedure (Routine) - Pending Review Specialty Diagnoses / Procedures Referred By Contac t Referred To Contact [facility] Diagnoses Elevated liver enzymes Fatty liver Procedures DDI VIBRATION CONTROLLED TRANSIENT ELASTOGRAPHY (VCTE) LIVER ELASTOGRAPHY W/O IMAG W/I&R Shahriar Brown APRN.NURSE STAFF [address] [place] [id number] [facility] Disease [place] [id number] Referral ID Status Reason Start Date Expiration Date Visits Requested Visits Authorized [id number] Pending Review Auto-Generat ed Referral 10/17/2021 10/17/2022 1 1 [facility] for referral (narrative)* Outpatient Procedure (Routine) - Pending Review Specialty Diagnoses / Procedures Referred By Contac t Referred To Contact [facility] Diagnoses Chest pain, unspecified type Palpitations Procedures ECG COMPLETE ECG ROUTINE ECG W/LEAST 12 LDS W/I&R Shahriar Brown APRN.NURSE STAFF [address] [place] [address] [facility] [place] [id number] Referral ID Status Reason Start Date Expiration Date Visits Requested Visits Authorized [id number] Pending Review Auto-Generat ed Referral 06/15/2022 06/15/2023 1 1 * Consult, Test, Treat (Routine) - Authorized Specialty Diagnoses / Procedures Referred By Contac t Referred To Contact [facility] Diagnoses Chest pain, unspecified type Palpitations Procedures ECHO ECHO TTHRC R-T 2D W/WOM-MODE COMPL SPEC&COLR D Shahriar Brown APRN.NURSE STAFF [address] [place] [address] [facility] [place] [address] [place] [address] Referral ID Status Reason Start Date Expiration Date Visits Requested Visits Authorized [id number] Authorized Auto-Generat ed Referral 06/22/2022 05/06/2023 1 1 [facility] for referral (narrative)* Diagnostic Procedure Only (Routine) - Authorized Specialty Diagnoses / Procedures Referred By Contac t Referred To Contact [facility] Diagnoses Liver fibrosis Procedures US ABD RIGHT UPPER QUADRANT US ABDOMINAL REAL TIME W/IMAGE LIMITED Shahriar Brown APRN.CNP [address] [place] [address] [facility] Referral ID Status Reason Start Date Expiration Date Visits Requested Visits Authorized [id number] Authorized Auto-Generat ed Referral 09/21/2022 05/06/2023 1 1 T [facility] for referral (narrative)* Diagnostic Procedure Only (Routine) - Authorized Specialty Diagnoses / Procedures Referred By Contac t Referred To Contact [facility] Diagnoses Encounter for screening mammogram for breast cancer Dense breast tissue on mammogram Procedures MIN SCREENING W ROBERT SCREENING DIGITAL BREAST TOMOSYNTHESIS BI SCREENING MAMMOGRAPHY BI 2-VIEW BREAST INC CAD Chhaya Crowe MD [address] [place] [address] [facility] [address] [place] [address] Referral ID Status Reason Start Date Expiration Date Visits Requested Visits Authorized [id number] Authorized Auto-Generat ed Referral 11/09/2022 05/06/2023 1 1 [facility] for referral (narrative)* Diagnostic Procedure Only (Routine) - Closed Specialty Diagnoses / Procedures Referred By Contac t Referred To Contact [facility] Diagnoses Encounter for screening mammogram for breast cancer Dense breast tissue on mammogram Procedures MIN SCREENING W ROBERT SCREENING DIGITAL BREAST TOMOSYNTHESIS BI SCREENING MAMMOGRAPHY BI 2-VIEW BREAST INC Chhaya Hernandez MD [address] [place] [address] [facility] [address] [email or web address] [address] Referral ID Status Reason Start Date Expiration Date V isits Requested Visits Authorized [id number] Closed Auto-Generate d Referral 11/09/2022 05/06/2023 1 1 [facility] for referral (narrative)* Diagnostic Procedure Only (Routine) - Closed Specialty Diagnoses / Procedures Referred By Maeganac t Referred To Contact [facility] Diagnoses Liver fibrosis Procedures US ABD RIGHT UPPER QUADRANT US ABDOMINAL REAL TIME W/IMAGE LIMITED Shahriar Brown APRN.CNP [address] [place] [address] Us Imaging [facility] Referral ID Status Reason Start Date Expiration Date V isits Requested Visits Authorized [id number] Closed Auto-Generate d Referral 09/21/2022 05/06/2023 1 1 [facility] for referral (narrative)* Diagnostic Procedure Only (Routine) - New Request Specialty Diagnoses / Procedures Referred By Abeba moe Referred To Contact BR IMAGING Diagnoses Encounter for screening mammogram for breast cancer Procedures MIN SCREENING W ROBERT SCREENING DIGITAL BREAST TOMOSYNTHESIS BI SCREENING MAMMOGRAPHY BI 2-VIEW BREAST INC Opal New MD [address] [place] [address] Br Imaging [address] [place] [address] Referral ID Status Reason Start Date Expiration Date Visits Requested Visits Authorized [id number] New Request Auto-Generat ed Referral 12/12/2023 01/10/2025 1 1 [facility] for referral (narrative)* Diagnostic Procedure Only (Routine) - Closed Specialty Diagnoses / Procedures Referred By Abeba t Referred To Contact BR IMAGING Diagnoses Encounter for screening mammogram for breast cancer Procedures MIN SCREENING W ROBERT SCREENING DIGITAL BREAST TOMOSYNTHESIS BI SCREENING MAMMOGRAPHY BI 2-VIEW BREAST INC Opal New MD [address] [place] [address] Br Imaging [address] [email or web address] [address] Referral ID Status Reason Start Date Expiration Date V isits Requested Visits Authorized [id number] Closed Auto-Generate d Referral 12/12/2023 01/10/2025 1 1 [facility] for referral (narrative)* Diagnostic Procedure Only (Routine) - Authorized Specialty Diagnoses / Procedures Referred By Abeba ome Referred To Contact BR IMAGING Diagnoses Encounter for screening mammogram for breast cancer Procedures MIN SCREENING W ROBERT SCREENING DIGITAL BREAST TOMOSYNTHESIS BI SCREENING MAMMOGRAPHY BI 2-VIEW BREAST INC Chhaya Hernandez MD [address] [place] [address] Br Imaging [address] [email or web address] [address] Referral ID Status Reason Start Date Expiration Date Visits Requested Visits Authorized [id number] Authorized Auto-Generat ed Referral 01/21/2024 02/19/2025 1 1 [facility] for referral (narrative)* Diagnostic Procedure Only (Routine) - Closed Specialty Diagnoses / Procedures Referred By Abeba moe Referred To Contact XR IMAGING Diagnoses Type 2 diabetes mellitus without complication, without long-term current use of insulin (HCC) Procedures XR STERNUM 2V DESAI/LAT RADEX STERNUM MINIMUM 2 VIEWS Shahriar Brown APRN.CNP [address] [place] [address] [place] [address] Referral ID Status Reason Start Date Expiration Date V isits Requested Visits Authorized [id number] Closed Auto-Generate d Referral 10/13/2021 05/06/2022 1 [facility]No reason for referral information availableWUniversity Hospitals St. [facility] Work Phone: Reason for visit Narrative* Diagnostic Procedure Only (Routine) - Closed Specialty Diagnoses / Procedures Referred By Abeba t Referred To Contact BR IMAGING Diagnoses Encounter for screening mammogram for breast cancer Dense breast tissue on mammogram Procedures MIN SCREENING W ROBERT SCREENING DIGITAL BREAST TOMOSYNTHESIS BI SCREENING MAMMOGRAPHY BI 2-VIEW BREAST INC CAD Chhaya Crowe MD [address] [place] [address] Br Imaging [address] [place] [phone] Referral ID Status Reason Start Date Expiration Date V isits Requested Visits Authorized [id number] Closed Auto-Generate d Referral 11/09/2022 05/06/2023 1 1 [facility] Diagnostic Procedure Only (Routine) - Closed Specialty Diagnoses / Procedures Referred By Abeba t Referred To Contact BR IMAGING Diagnoses Encounter for screening mammogram for breast cancer Procedures MIN SCREENING W ROBERT SCREENING DIGITAL BREAST TOMOSYNTHESIS BI SCREENING MAMMOGRAPHY BI 2-VIEW BREAST INC CAD Opal Mathews MD [address] [place] [address] Br Imaging [address] [address] Referral ID Status Reason Start Date Expiration Date V isits Requested Visits Authorized [id number] Closed Auto-Generate d Referral 12/12/2023 01/10/2025 1 1 [facility] Diagnostic Procedure Only (Routine) - Closed Specialty Diagnoses / Procedures Referred By Abeba moe Referred To Contact XR IMAGING Diagnoses Type 2 diabetes mellitus without complication, without long-term current use of insulin (HCC) Procedures XR STERNUM 2V DESAI/LAT RADEX STERNUM MINIMUM 2 VIEWS Shahriar Brown APRN.ANTHONY [address] [place] [address] [place] [address] Referral ID Status Reason Start Date Expiration Date V isits Requested Visits Authorized [id number] Closed Auto-Generate d Referral 10/13/2021 05/06/2022 1 1 [facility] Summary Purpose Family History No Family [...] Will No May 15 3:49pm Power of Emergency Medical Tech No May 15 3:49pm Advance Directive Response Recorded Date/ Time Living Will No May 15 2:49pm Power of Emergency Medical Tech No May 15 2:49pm Advance Directive Response Recorded Date/ Time Living Will No December 03, 2022 11:20am Power of Emergency Medical Tech No December 03 11:20am Advance Directive Response Recorded Date/ Time Advance Directives No December 27, 2022 9:44am Living Will No December 27 9:44am Power of Emergency Medical Tech No December 27 9:44am Advance Directive Response Recorded Date/ Time Advance Directives [facility] File [facility] 8:09am Advance Directives No December 27, 2022 9:44am Living Will No January 19, 2023 8:09am Power of Emergency Medical Tech No January 8:09am Advance Directive Response Recorded Date/ Time Advance Directives on File [facility] 8:09am Advance Directives No December 27, 2022 9:44am Living Will No February 27 4:41pm Power of Emergency Medical Tech No February 27, 2023 4:41pm Advance Directive Response Recorded Date/ Time Advance Directives on File No [facility] 7:09am Advance Directives No December 27, 2022 8:44am Living Will No March 29 023 10:36pm Power of Emergency Medical Tech No March 29, 2023 10:36pm Advance Directive Response Recorded Date/ Time Advance Directives on File No [facility] 7:09am Advance Directives No December 27, 2022 8:44am Living Will No April 28 11:51pm Power of Emergency Medical Tech No April 28, 2023 11:51pm Advance Directive Response Recorded Date/ Time Advance Directives No December 27, 2022 8:44am Living Will No April 28 11:51pm Power of Emergency Medical Tech No April 28, 2023 11:51pm Advance Directive Response Recorded Date/ Time Advance Directives No December 27, 2022 8:44am Living Will No June 21 024 3:42pm Power of Emergency Medical Tech No June 21, 2023 3:42pm Advance Directive Response Recorded Date/ Time Advance Directives No December 27, 2022 9:44am Living Will No June 21, 024 4:42pm Power of Emergency Medical Tech No June 21, 2023 4:42pm Advance Directive Response Recorded Date/ Time Living Will No October 22, 2023 4:43pm Do you have a Healthcare Power of Emergency Medical Tech? No October 22, 2023 4:43pm Living Will No May 12 12:44pm Do you have a Healthcare Power of Emergency Medical Tech? No May 12, 2024 12:44pm Living Will No April 27 1:16pm Do you have a Healthcare Power of Emergency Medical Tech? No April 27, 2024 1:16pm Living Will No May 10 5:34pm Do you have a Healthcare Power of Emergency Medical Tech? No May 10, 2024 5:34pm Advance Directives No December 27, 2022 9:44am Advance Directive Response Recorded Date/ Time Living Will No October 22, 2023 4:43pm Do you have a Healthcare Power of Emergency Medical Tech? No October 22, 2023 4:43pm Advance Directives [...] PAIN Reason for Visit Coronary artery dise [facility] Diabetes Essential hypertension Graves disease Raynaud disease Chief Complaint PALPITATIONS PALPITATIONS Amb Documentation CHEST PAIN ABN CARIO FUNCTION STUDY CHEST PAIN ABN CARIO FUNCTION STUDY 3 m fu ABD RIGHT LEG PAIN SWELLING ABN FINDINGS OF ORGANS, ABD PAIN ABDOMINAL PAIN ABNORMAL STRESS TEST, SOB, CHEST PAIN Reason for Visit Coronary artery dise [facility] Diabetes Essential hypertension Graves disease Raynaud disease Chief Complaint CHEST PAIN ABN CARIO FUNCTION STUDY CHEST PAIN ABN CARIO FUNCTION STUDY 3 m fu ABD RIGHT LEG PAIN SWELLING ABN FINDINGS OF ORGANS, ABD PAIN ABDOMINAL PAIN ABNORMAL STRESS TEST, SOB, CHEST PAIN CHEST PRESSURE INT LABS PCI with coronary stent Reason for Visit Coronary artery dise [facility] Diabetes Essential hypertension Graves disease Raynaud disease Chief Complaint CHEST PAIN ABN CARIO FUNCTION STUDY CHEST PAIN ABN CARIO FUNCTION STUDY 3 m fu ABD RIGHT LEG PAIN SWELLING ABN FINDINGS OF ORGANS, ABD PAIN ABDOMINAL PAIN ABNORMAL STRESS TEST, SOB, CHEST PAIN CHEST PRESSURE INT LABS PCI with coronary stent PARESTHESIA OF RIGHT ARM S/P [facility] STENTS 12/27/22 Reason for Visit Coronary artery dise [facility] Diabetes Essential hypertension Graves disease Raynaud disease [...] coronary stent PARESTHESIA OF RIGHT ARM S/P [facility] STENTS 12/27/22 PARESTHESIA OF RIGHT ARM [...] coronary stent PARESTHESIA OF RIGHT ARM S/P [facility] STENTS 12/27/22 PARESTHESIA OF RIGHT ARM [...] coronary stent PARESTHESIA OF RIGHT ARM S/P [facility] STENTS 12/27/22 PARESTHESIA OF RIGHT ARM [...] coronary stent PARESTHESIA OF RIGHT ARM S/P [facility] STENTS 12/27/22 PARESTHESIA OF RIGHT ARM [...] coronary stent PARESTHESIA OF RIGHT ARM S/P [facility] STENTS 12/27/22 PARESTHESIA OF RIGHT ARM PCI with stent SOB SINUSITIS 4 wk fu CHEST PAIN PCI with stent chronic sinusitis S/P [facility] 02/27 PCI with stent AFIB Reason [...] coronary stent PARESTHESIA OF RIGHT ARM S/P [facility] STENTS 12/27/22 PARESTHESIA OF RIGHT ARM PCI with stent SOB SINUSITIS 4 wk fu CHEST PAIN PCI with stent chronic sinusitis S/P [facility] 02/27 AFIB PCI with stent Reason [...] coronary stent PARESTHESIA OF RIGHT ARM S/P [facility] STENTS 12/27/22 PARESTHESIA OF RIGHT ARM PCI with stent SOB SINUSITIS 4 wk fu CHEST PAIN PCI with stent chronic sinusitis S/P [facility] 02/27 AFIB PCI with stent PCI [...] coronary stent PARESTHESIA OF RIGHT ARM S/P [facility] STENTS 12/27/22 PARESTHESIA OF RIGHT ARM PCI with stent SOB SINUSITIS 4 wk fu CHEST PAIN PCI with stent chronic sinusitis S/P [facility] 02/27 AFIB PCI with stent PCI [...] PAIN PCI with stent chronic sinusitis S/P [facility] 02/27 AFIB PCI with stent PCI with stent afib S/P [facility] 04/29 INT LABS Reason for Visit [...] PAIN PCI with stent chronic sinusitis S/P [facility] 02/27 AFIB PCI with stent PCI with stent afib S/P [facility] 04/29 INT LABS CHEST PAIN abd [...] PAIN PCI with stent chronic sinusitis S/P [facility] 02/27 AFIB PCI with stent PCI with stent afib S/P [facility] 04/29 INT LABS CHEST PAIN abd pain CHEST PAIN Reason for Visit Coronary artery dise ase Diabetes Dyslipidemia Essential hypertension Graves disease Interstitial lung disease Paroxysmal atrial fibrillation Raynaud disease Chest pain Coronary artery disease Diabetes Dyslipidemia Essential hypertension Graves disease Interstitial lung disease Paroxysmal atrial fibrillation Raynaud disease Chief Complaint PCI with stent PCI with stent afib S/P [facility] 04/29 INT LABS CHEST PAIN CHEST PAIN abd pain CHEST PAIN Reason for Visit Chest pain Coronary artery disease Diabetes Dyslipidemia Essential hypertension Graves disease Interstitial lung disease Paroxysmal atrial fibrillation Raynaud disease Chief Complaint PCI with stent afib S/P [facility] 04/29 INT LABS CHEST PAIN CHEST PAIN abd pain CHEST PAIN 3 M FU E ORDER Reason for Visit Chest pain Coronary artery disease Diabetes Dyslipidemia Essential hypertension Graves disease Interstitial lung disease Paroxysmal atrial fibrillation Raynaud disease Coronary artery disease Diabetes Dyslipidemia Essential hypertension Graves disease Interstitial lung disease Paroxysmal atrial fibrillation Raynaud disease Chief Complaint S/P [facility] 04/29 INT LABS CHEST PAIN CHEST [...] 11:11am Acute on chronic blood loss anemia May[place] 2024 12:55pm Occult GI bleeding May 14, 2024 12 :55pm Elevated LFTs May 21, 2024 8 :48am Gastric polyps May 21, 2024 8 :48am Anemia May 21, 2024 8 :48am Fatigue June 18, 2024 9:15am Fatty liver June 18, 2024 9:15am Anemia June 18, 2024 9:15am Coronary artery disease June 30, 025 9:37am Diabetes June 30, 2024 9:37am [...] 2024 9:15am Coronary artery disease June 30, 025 9:37am Diabetes June 30, 2024 9:37am [...] Admit Date Coronary artery disease June 30, 025 9:37am Diabetes June 30, 2024 9:37am [...] Raynaud disease October 20, 2024 1:35 pm Chief Complaint Admit Date INT LAB ORDERS July 17, 2024 1:3 [...] am [facility] October 28, 2024 10:3 6am [facility] October 30, 2024 11:5 2am [facility] October 31, 2024 1:13 pm Reason for Visit Admit Date Coronary artery disease October 20, 2024 1:35pm Diabetes October 20, 2024 1:35 pm Dyslipidemia October 20, 2024 1:35 pm Essential hypertension October 20, 2024 1 :35pm Graves disease October 20, 2024 1:35 pm Interstitial lung disease October 20 1:35pm Paroxysmal atrial fibrillation October 1:35pm Raynaud disease October 20, 2024 1:35 pm Chief Complaint Admit Date CHEST PAIN July 28, 2024 6:4 5am E-ORDER July 31, 2024 12: 57pm CAD/ASHD August 18, 2024 12: 00am CAD/ASHD August 18, 2024 6:4 9am CAD/ASHD August 20, 2024 5:1 1pm DYSPNEA September 19, 2024 8:13a m 3 M FU October 20, 2024 1:35 pm EORDERS October 21, 2024 9:21 am [facility] October 28, 2024 10:3 6am [facility] October 30, 2024 11:5 2am [facility] October 31, 2024 1:13 pm Idiopathic non-specific interstitial pne umonitis November 17, 2024 6:24pm BACK PAIN/PT HAS RX November 18, 2024 10:0 0am Reason for Referral Specialty Diagnoses / Procedures Referred By Abeba t Referred To Contact Diagnoses Liver fibrosis Elevated liver enzymes Procedures CONSULT TO HEPATOLOGY OFFICE/OUTPATIENT [facility] MDM 60-74 MINUTES Older, BOOKER Tompkins.NURSE STAFF [address] [place] [address] Referral ID Status Reason Start Date Expiration Date Visits Requested Visits Authorized [id number] Pending Review PCP Requested Referral 11/11/2021 11/11/2022 1 1 Specialty Diagnoses / Procedures Referred By Contac t Referred To Contact Shahriar Brown APRN.NURSE STAFF [address] [place] [address] Referral ID Status Reason Start Date Expiration Date V isits Requested Visits Authorized [id number] Pending Review 1 1 Specialty Diagnoses / Procedures Referred By Contac t Referred To Contact Cardiology Diagnoses SVT (supraventricular tachycardia) [facility] Procedures CONSULT TO CARDIOLOGY OFFICE/OUTPATIENT [facility] 60-74 MINUTES Shahriar Brown APRN.NURSE STAFF [address] [place] [address] Referral ID Status Reason Start Date Expiration Date Visits Requested Visits Authorized [id number] Pending Review PCP Requested Referral 07/26/2022 07/26/2023 1 1 Specialty Diagnoses / Procedures Referred By Contac t Referred To Contact Endocrinology Diagnoses Graves disease History of Srini thyroiditis Procedures CONSULT TO ENDOCRINOLOGY OFFICE/OUTPATIENT [facility] 60-74 MINUTES Shahriar Brown APRN.NURSE STAFF [address] [place] [address] Referral ID Status Reason Start Date Expiration Date Visits Requested Visits Authorized [id number] Pending Review PCP Requested Referral 08/17/2022 08/17/2023 1 1 Specialty Diagnoses / Procedures Referred By Contac t Referred To Contact Diagnoses Paroxysmal atrial fibrillation Procedures CT CARDIAC PULMONARY VENOGRAM [facility] [facility] CT HEART CONTRAST EVAL CARDIAC STRUCT/MORPH Ya [facility] MD [address] [place] [phone] Referral ID Status Reason Start Date Expiration Date Visits Re quested Visits Authorized [id number] Closed 04/06/2023 04/30/2024 1 1 Specialty Diagnoses / Procedures Referred By Contac t Referred To Contact Diagnoses Paroxysmal atrial fibrillation Procedures MOBILE CARDIAC TELEMETRY Ya [facility] MD [address] [place] [address] Referral ID Status Reason Start Date Expiration Date V isits Requested Visits Authorized [id number] New Request 09/27/2023 10/21/2024 1 1 Specialty Diagnoses / Procedures Referred By Contac t Referred To Contact Procedures ECG Pat Turner, CHILLER OPERATOR-NURSE STAFF [address] [place] [address] Referral ID Status Reason Start Date Expiration Date V isits Requested Visits Authorized [id number] New Request 09/27/2023 10/21/2024 1 1 Specialty Diagnoses / Procedures Referred By Contac t Referred To Contact Diagnoses Subacute sinusitis, unspecified location Shahriar Brown APRN.NURSE STAFF [address] [place] [address] Referral ID Status Reason Start Date Expiration Date Visits Re quested Visits Authorized [id number] Closed 1 1 Health Concerns Infection Onset [...] section and content) DATE CREATED AUTHOR 01/14/2020 [facility] DATE CREATED AUTHOR AUTHOR'S ORGANIZ ATION 04/06/2023 [facility] DATE CREATED AUTHOR AUTHOR'S ORGANIZ ATION 11/05/2024 [facility] DATE CREATED AUTHOR AUTHOR'S ORGANIZ ATION 11/19/2024 [facility] DATE CREATED AUTHOR AUTHOR'S ORGANIZ ATION 11/22/2024 [facility] Source Comments (unrecognize d section and content) In the event this informatio n is protected by the Federal Confidentiality of Alcohol and Drug Abuse Patient Records regulations: The Federal rules restrict any use of the information to criminally investigate or prosecute any alcohol or drug abuse patient.[facility] the event this information is protected by the Federal Confidentiality of Alcohol and Drug Abuse Patient Records regulations: The Federal rules restrict any use of the information to criminally investigate or prosecute any alcohol or drug abuse patient.[facility] the event this information is protected by the Federal Confidentiality of Alcohol and Drug Abuse Patient Records regulations: The Federal rules restrict any use of the information to criminally investigate or prosecute any alcohol or drug abuse patient.[facility] the event this information is protected by the Federal Confidentiality of Alcohol and Drug Abuse Patient Records regulations: The Federal rules restrict any use of the information to criminally investigate or prosecute any alcohol or drug abuse patient.[facility] the event this information is protected by the Federal Confidentiality of Alcohol and Drug Abuse Patient Records regulations: The Federal rules restrict any use of the information to criminally investigate or prosecute any alcohol or drug abuse patient.[facility] the event this information is protected by the Federal Confidentiality of Alcohol and Drug Abuse Patient Records regulations: The Federal rules restrict any use of the information to criminally investigate or prosecute any alcohol or drug abuse patient.[facility] the event this information is protected by the Federal Confidentiality of Alcohol and Drug Abuse Patient Records regulations: The Federal rules restrict any use of the information to criminally investigate or prosecute any alcohol or drug abuse patient.[facility] the event this information is protected by the Federal Confidentiality of Alcohol and Drug Abuse Patient Records regulations: The Federal rules restrict any use of the information to criminally investigate or prosecute any alcohol or drug abuse patient.[facility] the event this information is protected by the Federal Confidentiality of Alcohol and Drug Abuse Patient Records regulations: The Federal rules restrict any use of the information to criminally investigate or prosecute any alcohol or drug abuse patient.[facility] the event this information is protected by the Federal Confidentiality of Alcohol and Drug Abuse Patient Records regulations: The Federal rules restrict any use of the information to criminally investigate or prosecute any alcohol or drug abuse patient.[facility] the event this information is protected by the Federal Confidentiality of Alcohol and Drug Abuse Patient Records regulations: The Federal rules restrict any use of the information to criminally investigate or prosecute any alcohol or drug abuse patient.[facility] the event this information is protected by the Federal Confidentiality of Alcohol and Drug Abuse Patient Records regulations: The Federal rules restrict any use of the information to criminally investigate or prosecute any alcohol or drug abuse patient.[facility] the event this information is protected by the Federal Confidentiality of Alcohol and Drug Abuse Patient Records regulations: The Federal rules restrict any use of the information to criminally investigate or prosecute any alcohol or drug abuse patient.[facility] the event this information is protected by the Federal Confidentiality of Alcohol and Drug Abuse Patient Records regulations: The Federal rules restrict any use of the information to criminally investigate or prosecute any alcohol or drug abuse patient.[facility] the event this information is protected by the Federal Confidentiality of Alcohol and Drug Abuse Patient Records regulations: The Federal rules restrict any use of the information to criminally investigate or prosecute any alcohol or drug abuse patient.[facility] the event this information is protected by the Federal Confidentiality of Alcohol and Drug Abuse Patient Records regulations: The Federal rules restrict any use of the information to criminally investigate or prosecute any alcohol or drug abuse patient.[facility] the event this information is protected by the Federal Confidentiality of Alcohol and Drug Abuse Patient Records regulations: The Federal rules restrict any use of the information to criminally investigate or prosecute any alcohol or drug abuse patient.[facility] the event this information is protected by the Federal Confidentiality of Alcohol and Drug Abuse Patient Records regulations: The Federal rules restrict any use of the information to criminally investigate or prosecute any alcohol or drug abuse patient.[facility] the event this information is protected by the Federal Confidentiality of Alcohol and Drug Abuse Patient Records regulations: The Federal rules restrict any use of the information to criminally investigate or prosecute any alcohol or drug abuse patient.[facility] the event this information is protected by the Federal Confidentiality of Alcohol and Drug Abuse Patient Records regulations: The Federal rules restrict any use of the information to criminally investigate or prosecute any alcohol or drug abuse patient.[facility] [facility]In the event this information is protected by the Federal Confidentiality of Alcohol and Drug Abuse Patient Records regulations: The Federal rules restrict any use of the information to criminally investigate or prosecute any alcohol or drug abuse patient.[facility] HospitalIn the event this information is protected by the Federal Confidentiality of Alcohol and Drug Abuse Patient Records regulations: The Federal rules restrict any use of the information to criminally investigate or prosecute any alcohol or drug abuse patient.[facility]In the event this information is protected by the Federal Confidentiality of Alcohol and Drug Abuse Patient Records regulations: The Federal rules restrict any use of the information to criminally investigate or prosecute any alcohol or drug abuse patient.[facility]In the event this information is protected by the Federal Confidentiality of Alcohol and Drug Abuse Patient Records regulations: The Federal rules restrict any use of the information to criminally investigate or prosecute any alcohol or drug abuse patient.[facility]In the event this information is protected by the Federal Confidentiality of Alcohol and Drug Abuse Patient Records regulations: The Federal rules restrict any use of the information to criminally investigate or prosecute any alcohol or drug abuse patient.[facility]In the event this information is protected by the Federal Confidentiality of Alcohol and Drug Abuse Patient Records regulations: The Federal rules restrict any use of the information to criminally investigate or prosecute any alcohol or drug abuse patient.[facility]In the event this information is protected by the Federal Confidentiality of Alcohol and Drug Abuse Patient Records regulations: The Federal rules restrict any use of the information to criminally investigate or prosecute any alcohol or drug abuse patient.[facility] HospitalIn the event this information is protected by the Federal Confidentiality of Alcohol and Drug Abuse Patient Records regulations: The Federal rules restrict any use of the information to criminally investigate or prosecute any alcohol or drug abuse patient.[facility] HospitalIn the event this information is protected by the Federal Confidentiality of Alcohol and Drug Abuse Patient Records regulations: The Federal rules restrict any use of the information to criminally investigate or prosecute any alcohol or drug abuse patient.[facility] HospitalIn the event this information is protected by the Federal Confidentiality of Alcohol and Drug Abuse Patient Records regulations: The Federal rules restrict any use of the information to criminally investigate or prosecute any alcohol or drug abuse patient.[facility] HospitalIn the event this information is protected by the Federal Confidentiality of Alcohol and Drug Abuse Patient Records regulations: The Federal rules restrict any use of the information to criminally investigate or prosecute any alcohol or drug abuse patient.[facility]In the event this information is protected by the Federal Confidentiality of Alcohol and Drug Abuse Patient Records regulations: The Federal rules restrict any use of the information to criminally investigate or prosecute any alcohol or drug abuse patient.[facility]In the event this information is protected by the Federal Confidentiality of Alcohol and Drug Abuse Patient Records regulations: The Federal rules restrict any use of the information to criminally investigate or prosecute any alcohol or drug abuse patient.[facility] HospitalIn the event this information is protected by the Federal Confidentiality of Alcohol and Drug Abuse Patient Records regulations: The Federal rules restrict any use of the information to criminally investigate or prosecute any alcohol or drug abuse patient.[facility] HospitalIn the event this information is protected by the Federal Confidentiality of Alcohol and Drug Abuse Patient Records regulations: The Federal rules restrict any use of the information to criminally investigate or prosecute any alcohol or drug abuse patient.[facility] HospitalIn the event this information is protected by the Federal Confidentiality of Alcohol and Drug Abuse Patient Records regulations: The Federal rules restrict any use of the information to criminally investigate or prosecute any alcohol or drug abuse patient.[facility] HospitalIn the event this information is protected by the Federal Confidentiality of Alcohol and Drug Abuse Patient Records regulations: The Federal rules restrict any use of the information to criminally investigate or prosecute any alcohol or drug abuse patient.[facility] HospitalIn the event this information is protected by the Federal Confidentiality of Alcohol and Drug Abuse Patient Records regulations: The Federal rules restrict any use of the information to criminally investigate or prosecute any alcohol or drug abuse patient.[facility] HospitalIn the event this information is protected by the Federal Confidentiality of Alcohol and Drug Abuse Patient Records regulations: The Federal rules restrict any use of the information to criminally investigate or prosecute any alcohol or drug abuse patient.[facility] HospitalIn the event this information is protected by the Federal Confidentiality of Alcohol and Drug Abuse Patient Records regulations: The Federal rules restrict any use of the information to criminally investigate or prosecute any alcohol or drug abuse patient.[facility] HospitalIn the event this information is protected by the Federal Confidentiality of Alcohol and Drug Abuse Patient Records regulations: The Federal rules restrict any use of the information to criminally investigate or prosecute any alcohol or drug abuse patient.[facility] HospitalIn the event this information is protected by the Federal Confidentiality of Alcohol and Drug Abuse Patient Records regulations: The Federal rules restrict any use of the information to criminally investigate or prosecute any alcohol or drug abuse patient.[facility] HospitalIn the event this information is protected by the Federal Confidentiality of Alcohol and Drug Abuse Patient Records regulations: The Federal rules restrict any use of the information to criminally investigate or prosecute any alcohol or drug abuse patient.[facility] HospitalIn the event this information is protected by the Federal Confidentiality of Alcohol and Drug Abuse Patient Records regulations: The Federal rules restrict any use of the information to criminally investigate or prosecute any alcohol or drug abuse patient.[facility] HospitalIn the event this information is protected by the Federal Confidentiality of Alcohol and Drug Abuse Patient Records regulations: The Federal rules restrict any use of the information to criminally investigate or prosecute any alcohol or drug abuse patient.[facility] HospitalIn the event this information is protected by the Federal Confidentiality of Alcohol and Drug Abuse Patient Records regulations: The Federal rules restrict any use of the information to criminally investigate or prosecute any alcohol or drug abuse patient.[facility] HospitalIn the event this information is protected by the Federal Confidentiality of Alcohol and Drug Abuse Patient Records regulations: The Federal rules restrict any use of the information to criminally investigate or prosecute any alcohol or drug abuse patient.[facility] HospitalIn the event this information is protected by the Federal Confidentiality of Alcohol and Drug Abuse Patient Records regulations: The Federal rules restrict any use of the information to criminally investigate or prosecute any alcohol or drug abuse patient.[facility] HospitalIn the event this information is protected by the Federal Confidentiality of Alcohol and Drug Abuse Patient Records regulations: The Federal rules restrict any use of the information to criminally investigate or prosecute any alcohol or drug abuse patient.[facility] HospitalIn the event this information is protected by the Federal Confidentiality of Alcohol and Drug Abuse Patient Records regulations: The Federal rules restrict any use of the information to criminally investigate or prosecute any alcohol or drug abuse patient.[facility] HospitalIn the event this information is protected by the Federal Confidentiality of Alcohol and Drug Abuse Patient Records regulations: The Federal rules restrict any use of the information to criminally investigate or prosecute any alcohol or drug abuse patient.[facility] the event this information is protected by the Federal Confidentiality of Alcohol and Drug Abuse Patient Records regulations: The Federal rules restrict any use of the information to criminally investigate or prosecute any alcohol or drug abuse patient.[facility] HospitalIn the event this information is protected by the Federal Confidentiality of Alcohol and Drug Abuse Patient Records regulations: The Federal rules restrict any use of the information to criminally investigate or prosecute any alcohol or drug abuse patient.[facility] HospitalIn the event this information is protected by the Federal Confidentiality of Alcohol and Drug Abuse Patient Records regulations: The Federal rules restrict any use of the information to criminally investigate or prosecute any alcohol or drug abuse patient.[facility] HospitalIn the event this information is protected by the Federal Confidentiality of Alcohol and Drug Abuse Patient Records regulations: The Federal rules restrict any use of the information to criminally investigate or prosecute any alcohol or drug abuse patient.[facility] HospitalIn the event this information is protected by the Federal Confidentiality of Alcohol and Drug Abuse Patient Records regulations: The Federal rules restrict any use of the information to criminally investigate or prosecute any alcohol or drug abuse patient.[facility] HospitalIn the event this information is protected by the Federal Confidentiality of Alcohol and Drug Abuse Patient Records regulations: The Federal rules restrict any use of the information to criminally investigate or prosecute any alcohol or drug abuse patient.[facility] HospitalIn the event this information is protected by the Federal Confidentiality of Alcohol and Drug Abuse Patient Records regulations: The Federal rules restrict any use of the information to criminally investigate or prosecute any alcohol or drug abuse patient.[facility] HospitalIn the event this information is protected by the Federal Confidentiality of Alcohol and Drug Abuse Patient Records regulations: The Federal rules restrict any use of the information to criminally investigate or prosecute any alcohol or drug abuse patient.[facility]In the event this information is protected by the Federal Confidentiality of Alcohol and Drug Abuse Patient Records regulations: The Federal rules restrict any use of the information to criminally investigate or prosecute any alcohol or drug abuse patient.[facility]In the event this information is protected by the Federal Confidentiality of Alcohol and Drug Abuse Patient Records regulations: The Federal rules restrict any use of the information to criminally investigate or prosecute any alcohol or drug abuse patient.[facility]In the event this information is protected by the Federal Confidentiality of Alcohol and Drug Abuse Patient Records regulations: The Federal rules restrict any use of the information to criminally investigate or prosecute any alcohol or drug abuse patient.[facility]In the event this information is protected by the Federal Confidentiality of Alcohol and Drug Abuse Patient Records regulations: The Federal rules restrict any use of the information to criminally investigate or prosecute any alcohol or drug abuse patient.[facility]In the event this information is protected by the Federal Confidentiality of Alcohol and Drug Abuse Patient Records regulations: The Federal rules restrict any use of the information to criminally investigate or prosecute any alcohol or drug abuse patient.[facility] HospitalIn the event this information is protected by the Federal Confidentiality of Alcohol and Drug Abuse Patient Records regulations: The Federal rules restrict any use of the information to criminally investigate or prosecute any alcohol or drug abuse patient.[facility] HospitalIn the event this information is protected by the Federal Confidentiality of Alcohol and Drug Abuse Patient Records regulations: The Federal rules restrict any use of the information to criminally investigate or prosecute any alcohol or drug abuse patient.[facility] HospitalIn the event this information is protected by the Federal Confidentiality of Alcohol and Drug Abuse Patient Records regulations: The Federal rules restrict any use of the information to criminally investigate or prosecute any alcohol or drug abuse patient.[facility]In the event this information is protected by the Federal Confidentiality of Alcohol and Drug Abuse Patient Records regulations: The Federal rules restrict any use of the information to criminally investigate or prosecute any alcohol or drug abuse patient.[facility]In the event this information is protected by the Federal Confidentiality of Alcohol and Drug Abuse Patient Records regulations: The Federal rules restrict any use of the information to criminally investigate or prosecute any alcohol or drug abuse patient.[facility]In the event this information is protected by the Federal Confidentiality of Alcohol and Drug Abuse Patient Records regulations: The Federal rules restrict any use of the information to criminally investigate or prosecute any alcohol or drug abuse patient.[facility]In the event this information is protected by the Federal Confidentiality of Alcohol and Drug Abuse Patient Records regulations: The Federal rules restrict any use of the information to criminally investigate or prosecute any alcohol or drug abuse patient.[facility]In the event this information is protected by the Federal Confidentiality of Alcohol and Drug Abuse Patient Records regulations: The Federal rules restrict any use of the information to criminally investigate or prosecute any alcohol or drug abuse patient.[facility]In the event this information is protected by the Federal Confidentiality of Alcohol and Drug Abuse Patient Records regulations: The Federal rules restrict any use of the information to criminally investigate or prosecute any alcohol or drug abuse patient.[facility]In the event this information is protected by the Federal Confidentiality of Alcohol and Drug Abuse Patient Records regulations: The Federal rules restrict any use of the information to criminally investigate or prosecute any alcohol or drug abuse patient.[facility]In the event this information is protected by the Federal Confidentiality of Alcohol and Drug Abuse Patient Records regulations: The Federal rules restrict any use of the information to criminally investigate or prosecute any alcohol or drug abuse patient.[facility]In the event this information is protected by the Federal Confidentiality of Alcohol and Drug Abuse Patient Records regulations: The Federal rules restrict any use of the information to criminally investigate or prosecute any alcohol or drug abuse patient.[facility]In the event this information is protected by the Federal Confidentiality of Alcohol and Drug Abuse Patient Records regulations: The Federal rules restrict any use of the information to criminally investigate or prosecute any alcohol or drug abuse patient.[facility]In the event this information is protected by the Federal Confidentiality of Alcohol and Drug Abuse Patient Records regulations: The Federal rules restrict any use of the information to criminally investigate or prosecute any alcohol or drug abuse patient.[facility]In the event this information is protected by the Federal Confidentiality of Alcohol and Drug Abuse Patient Records regulations: The Federal rules restrict any use of the information to criminally investigate or prosecute any alcohol or drug abuse patient.[facility]In the event this information is protected by the Federal Confidentiality of Alcohol and Drug Abuse Patient Records regulations: The Federal rules restrict any use of the information to criminally investigate or prosecute any alcohol or drug abuse patient.[facility]In the event this information is protected by the Federal Confidentiality of Alcohol and Drug Abuse Patient Records regulations: The Federal rules restrict any use of the information to criminally investigate or prosecute any alcohol or drug abuse patient.[facility]In the event this information is protected by the Federal Confidentiality of Alcohol and Drug Abuse Patient Records regulations: The Federal rules restrict any use of the information to criminally investigate or prosecute any alcohol or drug abuse patient.[facility]In the event this information is protected by the Federal Confidentiality of Alcohol and Drug Abuse Patient Records regulations: The Federal rules restrict any use of the information to criminally investigate or prosecute any alcohol or drug abuse patient.[facility]In the event this information is protected by the Federal Confidentiality of Alcohol and Drug Abuse Patient Records regulations: The Federal rules restrict any use of the information to criminally investigate or prosecute any alcohol or drug abuse patient.[facility]In the event this information is protected by the Federal Confidentiality of Alcohol and Drug Abuse Patient Records regulations: The Federal rules restrict any use of the information to criminally investigate or prosecute any alcohol or drug abuse patient.[facility] HospitalIn the event this information is protected by the Federal Confidentiality of Alcohol and Drug Abuse Patient Records regulations: The Federal rules restrict any use of the information to criminally investigate or prosecute any alcohol or drug abuse patient.[facility] HospitalIn the event this information is protected by the Federal Confidentiality of Alcohol and Drug Abuse Patient Records regulations: The Federal rules restrict any use of the information to criminally investigate or prosecute any alcohol or drug abuse patient.[facility]In the event this information is protected by the Federal Confidentiality of Alcohol and Drug Abuse Patient Records regulations: The Federal rules restrict any use of the information to criminally investigate or prosecute any alcohol or drug abuse patient.[facility]In the event this information is protected by the Federal Confidentiality of Alcohol and Drug Abuse Patient Records regulations: The Federal rules restrict any use of the information to criminally investigate or prosecute any alcohol or drug abuse patient.[facility]In the event this information is protected by the Federal Confidentiality of Alcohol and Drug Abuse Patient Records regulations: The Federal rules restrict any use of the information to criminally investigate or prosecute any alcohol or drug abuse patient.[facility]In the event this information is protected by the Federal Confidentiality of Alcohol and Drug Abuse Patient Records regulations: The Federal rules restrict any use of the information to criminally investigate or prosecute any alcohol or drug abuse patient.[facility]In the event this information is protected by the Federal Confidentiality of Alcohol and Drug Abuse Patient Records regulations: The Federal rules restrict any use of the information to criminally investigate or prosecute any alcohol or drug abuse patient.[facility]In the event this information is protected by the Federal Confidentiality of Alcohol and Drug Abuse Patient Records regulations: The Federal rules restrict any use of the information to criminally investigate or prosecute any alcohol or drug abuse patient.[facility]In the event this information is protected by the Federal Confidentiality of Alcohol and Drug Abuse Patient Records regulations: The Federal rules restrict any use of the information to criminally investigate or prosecute any alcohol or drug abuse patient.[facility]In the event this information is protected by the Federal Confidentiality of Alcohol and Drug Abuse Patient Records regulations: The Federal rules restrict any use of the information to criminally investigate or prosecute any alcohol or drug abuse patient.[facility]In the event this information is protected by the Federal Confidentiality of Alcohol and Drug Abuse Patient Records regulations: The Federal rules restrict any use of the information to criminally investigate or prosecute any alcohol or drug abuse patient.[facility]In the event this information is protected by the Federal Confidentiality of Alcohol and Drug Abuse Patient Records regulations: The Federal rules restrict any use of the information to criminally investigate or prosecute any alcohol or drug abuse patient.[facility]In the event this information is protected by the Federal Confidentiality of Alcohol and Drug Abuse Patient Records regulations: The Federal rules restrict any use of the information to criminally investigate or prosecute any alcohol or drug abuse patient.[facility]In the event this information is protected by the Federal Confidentiality of Alcohol and Drug Abuse Patient Records regulations: The Federal rules restrict any use of the information to criminally investigate or prosecute any alcohol or drug abuse patient.[facility]In the event this information is protected by the Federal Confidentiality of Alcohol and Drug Abuse Patient Records regulations: The Federal rules restrict any use of the information to criminally investigate or prosecute any alcohol or drug abuse patient.[facility] [facility] HospitalIn the event this information is protected by the Federal Confidentiality of Alcohol and Drug Abuse Patient Records regulations: The Federal rules restrict any use of the information to criminally investigate or prosecute any alcohol or drug abuse patient.[facility] the event this information is protected by the Federal Confidentiality of Alcohol and Drug Abuse Patient Records regulations: The Federal rules restrict any use of the information to criminally investigate or prosecute any alcohol or drug abuse patient.[facility] the event this information is protected by the Federal Confidentiality of Alcohol and Drug Abuse Patient Records regulations: The Federal rules restrict any use of the information to criminally investigate or prosecute any alcohol or drug abuse patient.[facility]In the event this information is protected by the Federal Confidentiality of Alcohol and Drug Abuse Patient Records regulations: The Federal rules restrict any use of the information to criminally investigate or prosecute any alcohol or drug abuse patient.[facility]In the event this information is protected by the Federal Confidentiality of Alcohol and Drug Abuse Patient Records regulations: The Federal rules restrict any use of the information to criminally investigate or prosecute any alcohol or drug abuse patient.[facility] HospitalIn the event this information is protected by the Federal Confidentiality of Alcohol and Drug Abuse Patient Records regulations: The Federal rules restrict any use of the information to criminally investigate or prosecute any alcohol or drug abuse patient.[facility] HospitalIn the event this information is protected by the Federal Confidentiality of Alcohol and Drug Abuse Patient Records regulations: The Federal rules restrict any use of the information to criminally investigate or prosecute any alcohol or drug abuse patient.[facility] HospitalIn the event this information is protected by the Federal Confidentiality of Alcohol and Drug Abuse Patient Records regulations: The Federal rules restrict any use of the information to criminally investigate or prosecute any alcohol or drug abuse patient.[facility] HospitalIn the event this information is protected by the Federal Confidentiality of Alcohol and Drug Abuse Patient Records regulations: The Federal rules restrict any use of the information to criminally investigate or prosecute any alcohol or drug abuse patient.[facility] HospitalIn the event this information is protected by the Federal Confidentiality of Alcohol and Drug Abuse Patient Records regulations: The Federal rules restrict any use of the information to criminally investigate or prosecute any alcohol or drug abuse patient.[facility] HospitalIn the event this information is protected by the Federal Confidentiality of Alcohol and Drug Abuse Patient Records regulations: The Federal rules restrict any use of the information to criminally investigate or prosecute any alcohol or drug abuse patient.[facility] HospitalIn the event this information is protected by the Federal Confidentiality of Alcohol and Drug Abuse Patient Records regulations: The Federal rules restrict any use of the information to criminally investigate or prosecute any alcohol or drug abuse patient.[facility] HospitalIn the event this information is protected by the Federal Confidentiality of Alcohol and Drug Abuse Patient Records regulations: The Federal rules restrict any use of the information to criminally investigate or prosecute any alcohol or drug abuse patient.[facility] HospitalIn the event this information is protected by the Federal Confidentiality of Alcohol and Drug Abuse Patient Records regulations: The Federal rules restrict any use of the information to criminally investigate or prosecute any alcohol or drug abuse patient.[facility] HospitalIn the event this information is protected by the Federal Confidentiality of Alcohol and Drug Abuse Patient Records regulations: The Federal rules restrict any use of the information to criminally investigate or prosecute any alcohol or drug abuse patient.[facility] HospitalIn the event this information is protected by the Federal Confidentiality of Alcohol and Drug Abuse Patient Records regulations: The Federal rules restrict any use of the information to criminally investigate or prosecute any alcohol or drug abuse patient.[facility] HospitalIn the event this information is protected by the Federal Confidentiality of Alcohol and Drug Abuse Patient Records regulations: The Federal rules restrict any use of the information to criminally investigate or prosecute any alcohol or drug abuse patient.[facility] HospitalIn the event this information is protected by the Federal Confidentiality of Alcohol and Drug Abuse Patient Records regulations: The Federal rules restrict any use of the information to criminally investigate or prosecute any alcohol or drug abuse patient.[facility] HospitalIn the event this information is protected by the Federal Confidentiality of Alcohol and Drug Abuse Patient Records regulations: The Federal rules restrict any use of the information to criminally investigate or prosecute any alcohol or drug abuse patient.[facility] HospitalIn the event this information is protected by the Federal Confidentiality of Alcohol and Drug Abuse Patient Records regulations: The Federal rules restrict any use of the information to criminally investigate or prosecute any alcohol or drug abuse patient.[facility] HospitalIn the event this information is protected by the Federal Confidentiality of Alcohol and Drug Abuse Patient Records regulations: The Federal rules restrict any use of the information to criminally investigate or prosecute any alcohol or drug abuse patient.[facility] HospitalIn the event this information is protected by the Federal Confidentiality of Alcohol and Drug Abuse Patient Records regulations: The Federal rules restrict any use of the information to criminally investigate or prosecute any alcohol or drug abuse patient.[facility] HospitalIn the event this information is protected by the Federal Confidentiality of Alcohol and Drug Abuse Patient Records regulations: The Federal rules restrict any use of the information to criminally investigate or prosecute any alcohol or drug abuse patient.[facility] HospitalIn the event this information is protected by the Federal Confidentiality of Alcohol and Drug Abuse Patient Records regulations: The Federal rules restrict any use of the information to criminally investigate or prosecute any alcohol or drug abuse patient.[facility] HospitalIn the event this information is protected by the Federal Confidentiality of Alcohol and Drug Abuse Patient Records regulations: The Federal rules restrict any use of the information to criminally investigate or prosecute any alcohol or drug abuse patient.[facility] HospitalIn the event this information is protected by the Federal Confidentiality of Alcohol and Drug Abuse Patient Records regulations: The Federal rules restrict any use of the information to criminally investigate or prosecute any alcohol or drug abuse patient.[facility] HospitalIn the event this information is protected by the Federal Confidentiality of Alcohol and Drug Abuse Patient Records regulations: The Federal rules restrict any use of the information to criminally investigate or prosecute any alcohol or drug abuse patient.[facility] HospitalIn the event this information is protected by the Federal Confidentiality of Alcohol and Drug Abuse Patient Records regulations: The Federal rules restrict any use of the information to criminally investigate or prosecute any alcohol or drug abuse patient.[facility] Reason for Visit (unrecogniz ed section and content) Reason Onset Date Comments Refill Request 08/08/2021 Reason Comments Acute Visit lump on sternum x 1 week Specialty Diagnoses / Procedures Referred By Contac t Referred To Contact Internal Medicine / INTERNAL MEDICINE Diagnoses 3 month follow up Procedures 4C EST Shahriar Brown APRN.NURSE STAFF [address] [place] [address] Opal Mathews MD [address] [place] [address] Referral ID Status Reason Start Date Expiration Date Visits Re quested Visits Authorized [id number] Closed 09/15/2021 12/14/2021 1 1 Reason Comments Orders Reason Comments UTI frquency of urinatio n x 2 days Specialty Diagnoses / Procedures Referred By Contac t Referred To Contact [facility] Diagnoses uti symptoms x2days Procedures EST SAME DAY Self Express Cl [facility] [address] [place] [address] Referral ID Status Reason Start Date Expiration Date V isits Requested Visits Authorized [id number] Outside PCP 10/10/2021 01/08/2022 1 1 Reason Comments Recheck 3 month follow up Specialty Diagnoses / Procedures Referred By Contac t Referred To Contact Internal Medicine / INTERNAL MEDICINE Diagnoses RED SPOTS HANDS AND RT SHOULDER AND FOOT Procedures EST Opal Mcdonald MD [address] [place] [address] Opal Mathews MD [address] [place] [address] Referral ID Status Reason Start Date Expiration Date V isits Requested Visits Authorized [id number] Authorized 11/24/2020 11/24/2021 99 99 Specialty Diagnoses / Procedures Referred By Contac t Referred 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 Diagnoses Encounter for general adult medical examination without abnormal findings mamm Procedures SCREENING MAMMOGRAPHY BI 2-VIEW BREAST INC CAD mamm Hui Lewis, CHILLER OPERATOR.NURSE STAFF [address] [place] [address] [employer] [facility] [employer] [address] [place] [address] Referral ID Status Reason Start Date Expiration Date V isits Requested Visits Authorized [id number] Closed OON/Self Pay Override 11/02/2021 05/06/2022 1 1 Reason Comments Refill Request Reason Comments Sore Throat ST and drainage-woke up with symptoms-COVID exposure Specialty Diagnoses / Procedures Referred By Contac t Referred To Contact [facility] Diagnoses Sore Throat - COVID exposure Procedures EST SAME DAY Alessia Lawrence APRN.NURSE STAFF [address] [place] [address] Express Cl [facility] [address] [place] [address] Referral ID Status Reason Start Date Expiration Date V isits Requested Visits Authorized [id number] Pending Review 11/20/2021 02/18/2022 1 1 Reason Onset Date Comments Recheck 4 month follow u p Immunizations 01/19/2022 Flu vaccination Specialty Diagnoses / Procedures Referred By Contac t Referred To Contact Internal Medicine / INTERNAL MEDICINE Diagnoses Follow-up examination 4 month Follow up Procedures OFFICE/OUTPATIENT ESTABLISHED MOD MDM 30-39 MIN 4C EST Opal Mathews MD [address] [place] [address] Shahriar Brown APRN.NURSE STAFF [address] [place] [address] Referral ID Status Reason Start Date Expiration Date Visits Re quested Visits Authorized [id number] Closed 01/19/2022 05/06/2022 1 1 Reason Comments Cough Cough, diarrhea, sin us, bodyaches, fever and ST x 4 days Specialty Diagnoses / Procedures Referred By Contac t Referred To Contact [facility] Diagnoses diarrhea, sinus, bodyaches, low grade fever, cough and sore throat Procedures OFFICE/OUTPATIENT ESTABLISHED MOD [facility] 30-39 MIN EST SAME DAY Self Express Cl [facility] [address] [place] [phone] Referral ID Status Reason Start Date Expiration Date Visits Re quested Visits Authorized [id number] Closed 02/07/2022 05/06/2022 1 1 Reason Comments UTI Pressure since been on ATB Musculoskeletal Problem Achy all over; exposed to covid Specialty Diagnoses / Procedures Referred By Contac t Referred To Contact Family Medicine / FAMILY MEDICINE Diagnoses Encounter for general adult medical examination without abnormal findings UTI/not feeling well Procedures OFFICE/OUTPATIENT ESTABLISHED MOD [facility] 30-39 MIN 4C EST YandellogTracy elliott, CHILLER OPERATOR.NURSE STAFF [address] [place] [address] PodTracy mcallister, CHILLER OPERATOR.NURSE STAFF [address] [place] [address] Referral ID Status Reason Start Date Expiration Date Visits Re quested Visits Authorized [id number] Closed 02/14/2022 05/06/2022 1 1 Reason Comments Results Reason Comments Fax Request Reason Comments URI Started with sinus d rainage last week on Sunday. Cough and congestion. Moved into chest congestion. Specialty Diagnoses / Procedures Referred By Contac t Referred To Contact Internal Medicine / INTERNAL MEDICINE Diagnoses Sinus congestion Cough No energy sinus congestion and cough, no energy Procedures OFFICE/OUTPATIENT ESTABLISHED MOD [facility] 30-39 MIN 4C EST Self Older, Shahriar, CHILLER OPERATOR.NURSE STAFF [address] [place] [phone] Referral ID Status Reason Start Date Expiration Date Visits Re quested Visits Authorized [id number] Closed 04/17/2022 05/06/2022 1 1 Reason Onset Date Comments Refill Request 06/08/2022 Reason Comments Patient Request Reason Comments Insurance Authorization Reason Comments Recheck Elevated BP and BS, headaches Specialty Diagnoses / Procedures Referred By Contac t Referred To Contact Internal Medicine / INTERNAL MEDICINE Diagnoses BP (high blood pressure) high BP Procedures OFFICE/OUTPATIENT ESTABLISHED MOD [facility] 30-39 MIN 4C EST Self Older, Shahriar, CHILLER OPERATOR.NURSE STAFF [address] [place] [address] Referral ID Status Reason Start Date Expiration Date Visits Re quested Visits Authorized [id number] Closed 06/15/2022 05/06/2023 1 1 Reason Comments Recheck 2 week follow up Specialty Diagnoses / Procedures Referred By Contac t Referred To Contact Internal Medicine / INTERNAL MEDICINE Diagnoses Encounter for follow-up examination after completed treatment for conditions other than malignant neoplasm 2 wk follow up Procedures OFFICE/OUTPATIENT ESTABLISHED MOD [facility] 30-39 MIN 4C EST Self Older, Shahriar, CHILLER OPERATOR.NURSE STAFF [address] [place] [address] Referral ID Status Reason Start Date Expiration Date Visits Re quested Visits Authorized [id number] Closed 06/26/2022 05/06/2023 1 1 Reason Comments Same Day Appointment sinus pressure, con gestion,fever chills,body aches,cough,nausea x since Sunday Specialty Diagnoses / Procedures Referred By Contac t Referred To Contact Internal Medicine / INTERNAL MEDICINE Diagnoses Cough Fever Sinus pressure sinus pressure, congestion, cough, fever Procedures OFFICE/OUTPATIENT ESTABLISHED MOD [facility] 30-39 MIN 4C Opal Sandhu MD [address] [place] [address] Opal Mathews MD [address] [place] [address] Referral ID Status Reason Start Date Expiration Date Visits Re quested Visits Authorized [id number] Closed 07/17/2022 05/06/2023 1 1 Reason Comments patient update/illness persisting Reason Comments Results Reason Comments New Patient Reason Comments Faxed cardiology referral to [facility] Reason Comments Recheck Follow up, discuss T hyroid Specialty Diagnoses / Procedures Referred By Contac t Referred To Contact Internal Medicine / INTERNAL MEDICINE Diagnoses Thyroid condition discuss possible thyroid issues Procedures OFFICE/OUTPATIENT ESTABLISHED MOD [facility] 30-39 MIN 4C Opal Sandhu MD [address] [place] [address] Shahriar Brown APRN.NURSE STAFF [address] [place] [address] Referral ID Status Reason Start Date Expiration Date Visits Re quested Visits Authorized [id number] Closed 08/17/2022 05/06/2023 1 1 Reason Comments Head Congestion Head congestion, cou gh, sinus pain, headaches x 3 days Specialty Diagnoses / Procedures Referred By Contac t Referred To Contact Internal Medicine / INTERNAL MEDICINE Diagnoses Nasal congestion nasal congestion, sinus pressure, drainage Procedures OFFICE/OUTPATIENT ESTABLISHED MOD [facility] 30-39 MIN 4C EST Shahriar Brown APRN.NURSE STAFF [address] [place] [address] Shahriar Brown APRN.NURSE STAFF [address] [place] [address] Referral ID Status Reason Start Date Expiration Date Visits Re quested Visits Authorized [id number] Closed 09/04/2022 05/06/2023 1 1 Reason Comments Recheck 2 week BP follow up Specialty Diagnoses / Procedures Referred By Contac t Referred To Contact Internal Medicine / INTERNAL MEDICINE Diagnoses Follow-up exam BP follow up Procedures OFFICE/OUTPATIENT ESTABLISHED MOD [facility] 30-39 MIN 4C Opal Sandhu MD [address] [place] [address] Sharhiar Brown APRN.NURSE STAFF [address] [place] [address] Referral ID Status Reason Start Date Expiration Date Visits Re quested Visits Authorized [id number] Closed 09/14/2022 05/06/2023 1 1 Reason Comments [...] month follow up Procedures OFFICE/OUTPATIENT ESTABLISHED MOD [facility] 30-39 MIN 4C Opal Sandhu, MD [address] [place] [address] Shahriar Brown APRN.NURSE STAFF [address] [place] [address] Referral ID Status Reason Start Date Expiration Date V isits Requested Visits Authorized [id number] Authorized 12/11/2022 05/06/2023 2 2 Reason Comments Cellulitis Update Reason Comments Recheck Follow up cellulitis Specialty Diagnoses / Procedures Referred By Contac t Referred To Contact Internal Medicine / INTERNAL MEDICINE Diagnoses Follow-up exam follow up - cellulitis Procedures OFFICE/OUTPATIENT ESTABLISHED MOD MDM 30-39 MIN 4C EST Self Shahriar Brown APRN.NURSE STAFF [address] [place] [phone] Referral ID Status Reason Start Date Expiration Date Visits Re quested Visits Authorized [id number] Closed 12/20/2022 05/06/2023 1 1 Specialty Diagnoses / Procedures Referred By Contac t Referred To Contact [facility] Diagnoses FEELING OF NEEDING TO URINATE AND THEN UNABLE TO GET MUCH OUT, ALSO HAVING A LOW GRADE 100.4 FEVER - PATIENT HAD A HEART CATH AND 2 STENTS PLACED ON 12/27/22 Procedures EST SAME DAY Self Express Cl [facility] [address] [place] [phone] Referral ID Status Reason Start Date Expiration Date V isits Requested Visits Authorized [id number] Outside PCP 12/31/2022 03/01/2023 1 1 Reason Comments Recheck ER follow up, AFIB Specialty Diagnoses / Procedures Referred By Contac t Referred To Contact Internal Medicine / INTERNAL MEDICINE Diagnoses Follow-up exam 6 week follow up Procedures OFFICE/OUTPATIENT ESTABLISHED MOD MDM 30-39 MIN 4C EST Self Shahriar Brown APRN.NURSE STAFF [address] [place] [address] Referral ID Status Reason Start Date Expiration Date Visits Re quested Visits Authorized [id number] Closed 02/08/2023 06/06/2023 1 1 Reason Comments Radiology US Specialty Diagnoses / Procedures Referred By Contac t Referred To Contact US IMAGING Diagnoses Liver fibrosis Procedures US ABD RIGHT UPPER QUADRANT US ABDOMINAL REAL TIME W/IMAGE LIMITED Kevin, Shahriar, CHILLER OPERATOR.NURSE STAFF [address] [place] [address] [place] [address] Referral ID Status Reason Start Date Expiration Date V isits Requested Visits Authorized [id number] Closed Auto-Generate d Referral 09/21/2022 05/06/2023 1 [...] atrial fibrillation Procedures CT CARDIAC PULMONARY VENOGRAM [facility] CH[facility] CT HEART CONTRAST EVAL CARDIAC STRUCT/MORPH Ya Cleveland MD [address] [place] [id number] Referral ID Status Reason Start Date Expiration Date Visits Re quested Visits Authorized [id number] Closed 04/06/2023 04/30/2024 1 1 Specialty Diagnoses / Procedures Referred By Contac t Referred To Contact Diagnoses Paroxysmal atrial fibrillation Paroxysmal atrial fibrillation [I48.0] Procedures WV COMPRE EP EVAL ABLTJ ATR FIB PULM VEIN ISOLATION ABLATION SCHED INTERCARDIAC A-FIB TRANSEPTAL BY PULM VEIN ISOLATION W/EP EVAL (13865) Ya Cleveland MD [address] [place] [address] [facility] [address] [place] [address] Referral ID Status Reason Start Date Expiration Date Visits Re quested Visits Authorized [id number] 1 1 Reason Comments Appointment Reason Comments Patient Question Reason Onset Date Comments Refill Request 11/12/2023 Reason Comments Recheck Follow up Reason Onset Date Comments Refill Request 01/15/2024 Reason Comments Recheck 4 week follow up Specialty Diagnoses / Procedures Referred By Abeba moe Referred To Contact Radiology / [facility] Diagnoses fatigue, acute cough, shortness of breath Procedures RADIOLOGIC EXAM CHEST 2 VIEWS XR CHEST Shahriar Brown APRN.NURSE STAFF [address] [place] [address] [facility] [address] [place] [address] Referral ID Status Reason Start Date Expiration Date Visits Re quested Visits Authorized [id number] Closed 04/19/2022 05/06/2022 1 1 Reason Comments [...] Stepped on a nail th is am Reason Onset Date Comments Refill Request 11/10/2024 Reason Comments Patient Question Orders Care Teams (unrecognized sec tion and content) Bulb Sorter Relationship Specialty Start Date End Date Opal Mathews MD [address] [place], [place] [id number] PCP - General Internal Medicine 02/19/19 Bulb Sorter Relationship Specialty Start Date End Date Opal Mathews MD [address] [place], [place] [id number] PCP - General Internal Medicine 02/19/19 Bulb Sorter Relationship Specialty Start Date End Date Opal Mathews MD [address] [place], [place] [id number] PCP - General Internal Medicine 02/19/19 Bulb Sorter Relationship Specialty Start Date End Date Opal Mathews MD [address] [place] [address] PCP - General Internal Medicine 02/19/19 Bulb Sorter Relationship Specialty Start Date End Date Opal Mathews MD [address] [place] [address] PCP - General Internal Medicine 02/19/19 Bulb Sorter Relationship Specialty Start Date End Date Opal Mathews MD [address] [place] [address] PCP - General Internal Medicine 02/19/19 Bulb Sorter Relationship Specialty Start Date End Date Opal Mathews MD [address] [place] [address] PCP - General Internal Medicine 02/19/19 Bulb Sorter Relationship Specialty Start Date End Date Opal Mathews MD [address] [place] [address] PCP - General Internal Medicine 02/19/19 Bulb Sorter Relationship Specialty Start Date End Date Opal Mathews MD [address] [place] [address] PCP - General Internal Medicine 02/19/19 Bulb Sorter Relationship Specialty Start Date End Date Opal Mathews MD [address] [place] [address] PCP - General Internal Medicine 02/19/19 Bulb Sorter Relationship Specialty Start Date End Date Opal Mathews MD [address] [place] [address] PCP - General Internal Medicine 02/19/19 Bulb Sorter Relationship Specialty Start Date End Date Opal Mathews MD [address] [place] [address] PCP - General Internal Medicine 02/19/19 Bulb Sorter Relationship Specialty Start Date End Date Opal Mathews MD [address] [facility] [place] [address] PCP - General Internal Medicine 02/19/19 Bulb Sorter Relationship Specialty Start Date End Date Opal Mathews MD [address] [facility] [place] [address] PCP - General Internal Medicine 02/19/19 Bulb Sorter Relationship Specialty Start Date End Date Opal Mathews MD [address] [facility] [place] [address] PCP - General Internal Medicine 02/19/19 Bulb Sorter Relationship Specialty Start Date End Date Opal Mathews MD [address] [facility] [place] [address] PCP - General Internal Medicine 02/19/19 Team [...] MD Attending Provider, Refe rring Provider Active Bulb Sorter Relationship Specialty Start Date End Date Opal Mathews MD [address] [facility] [place] [address] PCP - General Internal Medicine 02/19/19 Bulb Sorter Relationship Specialty Start Date End Date Opal Mathews MD [address] [facility] [place] [address] PCP - General Internal Medicine 02/19/19 Bulb Sorter Relationship Specialty Start Date End Date Opal Mathews MD [address] [place] [address] PCP - General Internal Medicine 02/19/19 Bulb Sorter Relationship Specialty Start Date End Date Opal Mathews MD [address] [place] [address] PCP - General Internal Medicine 02/19/19 Bulb Sorter Relationship Specialty Start Date End Date Opal Mathews MD [address] [place] [address] PCP - General Internal Medicine 02/19/19 Bulb Sorter Relationship Specialty Start Date End Date Opal Mathews MD [address] [place] [address] PCP - General Internal Medicine 02/19/19 Bulb Sorter Relationship Specialty Start Date End Date Opal Mathews MD [address] [place] [address] PCP - General Internal Medicine 02/19/19 Bulb Sorter Relationship Specialty Start Date End Date Opal Mathews MD [address] [place] [address] PCP - General Internal Medicine 02/19/19 Bulb Sorter Relationship Specialty Start Date End Date Opal Mathews MD [address] [place] [address] PCP - General Internal Medicine 02/19/19 Bulb Sorter Relationship Specialty Start Date End Date Opal Mathews MD [address] [place] [address] PCP - General Internal Medicine 02/19/19 Bulb Sorter Relationship Specialty Start Date End Date Opal Mathews MD [address] [place] [address] PCP - General Internal Medicine 02/19/19 Team Status: Inactive Member Role Status Dates Dr. Opal Mathews MD Primary Care Provider, Referring Provider Active Dr. Alicia Manzano MD Attending Provider Active Team Status: Inactive Member Role Status Dates Dr. pOal Mathews MD Primary Care Provider Active Dr. [...] MD Attending Provider, Referring Pr ovider Active Bulb Sorter Relationship Specialty Start Date End Date Opal Mathews MD [address] [facility] [place] [address] PCP - General Internal Medicine 02/19/19 Bulb Sorter Relationship Specialty Start Date End Date Opal Mathews MD [address] [place] [address] PCP - General Internal Medicine 02/19/19 Bulb Sorter Relationship Specialty Start Date End Date Opal Mathews MD [address] [facility] [place] [address] PCP - General Internal Medicine 02/19/19 Bulb Sorter Relationship Specialty Start Date End Date Opal Mathews MD [address] [place] [address] PCP - General Internal Medicine 02/19/19 Bulb Sorter Relationship Specialty Start Date End Date Opal Mathews MD [address] [place] [address] PCP - General Internal Medicine 02/19/19 Team [...] Dr. Myriam Burt MD Emergency Provider Active Bulb Sorter Relationship Specialty Start Date End Date Opal Mathews MD [address] [place] [address] PCP - General Internal Medicine 02/19/19 Bulb Sorter Relationship Specialty Start Date End Date Opal Mathews MD [address] [place] [address] PCP - General Internal Medicine 02/19/19 Team Status: Active Member Role Status Dates Dr. Opal Mathews MD Primary Care Provider Active Dr. Mario Salinas MD Attending Provider Active Team Status: Inactive Member Role Status Dates Dr. Opal Mathews MD Primary Care Provider Active Dr. Kyra Wylie MD Attending Provider, Referring P nena Active Team Status: Inactive Member Role Status Dates Dr. Opal Mathews MD Primary Care Provider Active Dr. Myriam Burt MD Attending Provider, Emergency Provider Active Bulb Sorter Relationship Specialty Start Date End Date Opal Mathews MD [address] [facility] [place] [address] PCP - General Internal Medicine 02/19/19 Bulb Sorter Relationship Specialty Start Date End Date Opal Mathews MD [address] [place] [address] PCP - General Internal Medicine 02/19/19 Bulb Sorter Relationship Specialty Start Date End Date Opal Mathews MD [address] [place] [address] PCP - General Internal Medicine 02/19/19 Team Status: Active Member Role Status Dates Dr. Opal Mathews MD Primary Care Provider Active Dr. Alicia Manzano MD Attending Provider Active Team Status: Inactive Member Role Status Dates Dr. Opal Mathews MD Primary Care Provider Active Dr. Alicia Manzano MD Admit Provider, At tending Provider, Referring Provider Active Bulb Sorter Relationship Specialty Start Date End Date Opal Mathews MD [address] [place] [address] PCP - General Internal Medicine 02/19/19 Team [...] Dr. Alicia Manzano MD Attending Provider Active Bulb Sorter Relationship Specialty Start Date End Date Opal Mathews MD [address] [place], [place] [address] PCP - General Internal Medicine 02/19/19 Bulb Sorter Relationship Specialty Start Date End Date Opal Mathews MD [address] [facility] [place] [address] PCP - General Internal Medicine 02/19/19 Bulb Sorter Relationship Specialty Start Date End Date Opal Mathews MD [address] [place] [address] PCP - General Internal Medicine 02/19/19 Bulb Sorter Relationship Specialty Start Date End Date Opal Mathews MD [address] [place] [address] PCP - General Internal Medicine 02/19/19 Team Status: Inactive Member Role Status Dates Dr. Opal Mathews MD Primary Care Provider Active Dr. Lakshmi Resendiz DO Emergency Provider Active Team Status: Inactive Member Role Status Dates Dr. Opal Mathews MD Primary Care Provider Active Dr. Lakshmi Resendiz DO Attending Provider, Emergency P nena Active Bulb Sorter Relationship Specialty Start Date End Date Opal Mathews MD [address] [place] [address] PCP - General Internal Medicine 02/19/19 Team Status: Inactive Member Role Status Dates Dr. Opal Mathews MD Primary Care Provider Active Dr. Alicia Manzano MD Attending Provider, Referring Pr ovider Active Dr. Wilder Anguiano MD Other Provider Active Bulb Sorter Relationship Specialty Start Date End Date Opal Mathews MD [address] [place], [place] [address] PCP - General Internal Medicine 02/19/19 Team Status: Active Member Role Status Dates Dr. Opal Mathews MD Family Provider Active SHAHRIAR BROWN , FURNITURE FABRICATOR-C Primary Care Provider Active Team Status: Inactive Member Role Status Dates Dr. Freddy Lane MD Emergency Provider Active SHAHRIAR BROWN , FURNITURE FABRICATOR-C Primary Care Provider Active Bulb Sorter Relationship Specialty Start Date End Date Opal Mathews MD [address] [place] [place] [address] PCP - General Internal Medicine 02/19/19 Bulb Sorter Relationship Specialty Start Date End Date Opal Mathews MD [address] [place] [address] PCP - [facility] Internal Medicine 02/19/19 Bulb Sorter Relationship Specialty Start Date End Date Opal Mathews MD [address] [place] [address] PCP - [facility] Internal Medicine 02/19/19 Team Status: Inactive Member Role Status Dates Dr. Freddy Lane MD Attending Provider, Emergency Pro vider Active SHAHRIAR BROWN , FURNITURE FABRICATOR-C Primary Care Provider Active Team Status: Inactive Member Role Status Dates Dr. Opal Mathews MD Primary Care Provider Active Dr. Lauro Mason MD Attending Provider, Referrin g Provider Active Dr. Wilder Anguiano MD Other Provider Active Bulb Sorter Relationship Specialty Start Date End Date Opal Mathews MD [address] [place] [address] PCP - General Internal Medicine 02/19/19 Team Status: Inactive Member Role Status Dates SHAHRIAR BROWN , FURNITURE FABRICATOR-C Primary Care Provider Active Dr. Alicia Manzano MD Attending Provider, Referring Pr ovider Active Team Status: Inactive Member Role Status Dates SHAHRIAR BROWN , FURNITURE FABRICATOR-C Primary Care Provider Active Dr. Raffi Rendon MD Attending Provider, Referring Pro vider Active Bulb Sorter Relationship Specialty Start Date End Date Alicia Manzano MD [address] [address] Cardiovascular Disease 03/22/23 Bulb Sorter Relationship Specialty Start Date End Date Opal Mathews MD [address] [place] [address] PCP - General Internal Medicine 09/27/23 Alicia Manzano MD [address] [facility] [address] [address] Cardiovascular Disease 03/22/23 Bulb Sorter Relationship Specialty Start Date End Date Opal Mathews MD [address] [place] [address] PCP - General Internal Medicine 02/19/19 Bulb Sorter Relationship Specialty Start Date End Date Opal Mathews MD [address] [place] [address] PCP - General Internal Medicine 02/19/19 Bulb Sorter Relationship Specialty Start Date End Date Opal Mathews MD [address] [place] [address] PCP - General Internal Medicine 02/19/19 Bulb Sorter Relationship Specialty Start Date End Date Opal Mathews MD [address] [place] [address] PCP - General Internal Medicine 02/19/19 Bulb Sorter Relationship Specialty Start Date End Date Opal Mathews MD [address] [place] [address] PCP - General Internal Medicine 02/19/19 Ivett Dunn PA-C [address] [place] [address] Bundle Person Family Medicine 04/13/24 Shahriar Brown APRN.NURSE STAFF [address] [place] [address] Bundle Person Internal Medicine 04/13/24 Anabela Angulo PA-C [address] [place] [address] Bundle Person Family Medicine 04/13/24 Bulb Sorter Relationship Specialty Start Date End Date Opal Mathews MD [address] [place] [address] PCP - General Internal Medicine 02/19/19 Ivett Dunn PA-C [address] [place] [address] Bundle Person Family Medicine 04/13/24 Shahriar Brown APRN.NURSE STAFF [address] [place] [address] Bundle Person Internal Medicine 04/13/24 Anabela Angulo PA-C [address] [place] [address] Bundle Person Family Medicine 04/13/24 Bulb Sorter Relationship Specialty Start Date End Date Opal Mathews MD [address] [place] [address] PCP - General Internal Medicine 02/19/19 Ivett Dunn PA-C [address] [place] [address] Bundle Person Family Medicine 04/13/24 Shahriar Brown APRN.NURSE STAFF [address] [facility] [place] [address] Bundle Person Internal Medicine 04/13/24 Anabela Angulo PA-C [address] [place] [address] [facility] 04/13/[facility] Bulb Sorter Relationship Specialty Start Date End Date Opal Mathews MD [address] [facility] [place] [address] PCP - General Internal Medicine 02/19/19 Ivett Dunn PA-C [address] [place] [address] [id number] [phone] [facility] 04/13/24 Shahriar Brown APRN.NURSE STAFF [address] [place] [address] Bundle Person Internal Medicine 04/13/24 Anabela Angulo PA-C [address] [place] [address] [facility]ly [facility] 04/13/24 Bulb Sorter Relationship Specialty Start Date End Date Opal Mathews MD [address] [place] [address] PCP - General Internal Medicine 02/19/19 Ivett Dunn PA-C [address] [place] [address] Bundle Person Family Medicine 04/13/24 Shahriar Brown APRN.NURSE STAFF [address] [place] [address] Bundle Person Internal Medicine 04/13/24 Anabela Angulo PA-C [address] [place] [address] Bundle Person Family Medicine 04/13/24 Bulb Sorter Relationship Specialty Start Date End Date Opal Mathews MD [address] [place] [address] PCP - General Internal Medicine 02/19/19 Ivett Dunn PA-C [address] [place] [address] Bundle Person Family Medicine 04/13/24 Shahriar Brown APRN.NURSE STAFF [address] [place] [address] Bundle Person Internal Medicine 04/13/24 Anabela Angulo PA-C [address] [place] [address] Bundle Person Family [facility] 04/13/24 Bulb Sorter Relationship Specialty Start Date End Date Opal Mathews MD [address] [place] [address] PCP - General Internal Medicine 02/19/19 Ivett Dunn PA-C [address] [place] [address] Bundle Person Family Medicine 04/13/24 Shahriar Brown APRN.NURSE STAFF [address] [place] [address] Bundle Person Internal Medicine 04/13/24 Anabela Angulo PA-C [address] [place] [address] Bundle Person Family [facility] 04/13/24 Bulb Sorter Relationship Specialty Start Date End Date Opal Mathews MD [address] [place] [address] PCP - General Internal Medicine 02/19/19 Ivett Dunn PA-C [address] [place], [place] [id number] [phone] Bundle Person Family Medicine 04/13/24 Shahriar Brown APRN.NURSE STAFF [address] [place] [address] Bundle Person Internal Medicine 04/13/24 Anabela Angulo PA-C [address] [place] [address] Bundle Person Family [facility] 04/13/24 Bulb Sorter Relationship Specialty Start Date End Date Opal Mathews MD [address] [place] [address] PCP - General Internal Medicine 02/19/19 Ivett Dunn PA-C [address] [place] [address] Bundle Person Family Medicine 04/13/24 Shahriar Brown APRN.NURSE STAFF [address] [place] [address] Bundle Person Internal Medicine 04/13/24 Anabela Angulo PA-C [address] [place] [address] Bundle Person Family Medicine 04/13/24 Team Status: Active Member Role Status Dates Dr. Opal Mathews MD Primary Care Provider Active Team Status: Inactive Member Role Status Dates SHAHRIAR BROWN FURNITURE FABRICATOR-C Referring Provider Active Start : April 15, [...] End: May 06, 2024 SHAHRIAR BROWN , FURNITURE FABRICATOR-C Attending Provider Active Start : May 06, 2024 End: May 06, 2024 SHAHRIAR BROWN , FURNITURE FABRICATOR-C Referring Provider Active Start : May 06, [...] Status: Inactive Member Role Status Dates YUNI GONZALEZ Referring Provider Active Start : May 21, [...] 2024 End: June 18, 2024 Maryjane King FURNITURE FABRICATOR, FURNITURE FABRICATOR-C Attending Provider Active Start: June 18, 2024 End: June 18, 2024 Maryjane King FURNITURE FABRICATOR, FURNITURE FABRICATOR-C Referring Provider Active Start: June 18, 2024 [...] Provider Active Start: July 31, 2024 Meg HAWK PA Referring Provider Active Start: July 31, 2024 Bulb Sorter Relationship Specialty Start Date End Date Opal Mathews MD [address] [facility], [place] [address] PCP - General Internal Medicine 02/19/19 Shahriar Brown APRN.NURSE STAFF [address] [place] [address] Bundle Person Internal Medicine 04/13/24 Team Status: Inactive Member [...] July 31, 2024 End: July 31, 2024 Bulb Sorter Relationship Specialty Start Date End Date Opal Mathews MD [address] [facility] [place] [address] PCP - General Internal Medicine 02/19/19 Shahriar Brown APRN.NURSE STAFF [address] [facility], [place] [address] Bundle Person Internal Medicine 04/13/24 Bulb Sorter Relationship Specialty Start Date End Date Opal Mathews MD [address] [facility] [place] [address] PCP - General Internal Medicine 02/19/19 Shahriar Brown APRN.NURSE STAFF [address] [place] [address] Bundle Person Internal Medicine 04/13/24 Bulb Sorter Relationship Specialty Start Date End Date Opal Mathews MD [address] [place] [address] PCP - General Internal Medicine 02/19/19 Shahriar Brown APRN.NURSE STAFF [address] [place] [address] Bundle Person Internal Medicine 04/13/24 Bulb Sorter Relationship Specialty Start Date End Date Opal Mathews MD [address] [place] [address] PCP - General Internal Medicine 02/19/19 Shahriar Brown, BOOKER.NURSE STAFF [address] [place] [address] Bundle Person Internal Medicine 04/13/24 Bulb Sorter Relationship Specialty Start Date End Date Opal Mathews MD [address] [place] [address] PCP - General Internal Medicine 02/19/19 Shahriar Brown APRN.NURSE STAFF [address] [place] [address] Bundle Person Internal Medicine 04/13/24 Team Status: Inactive Member Role Status Dates Dr. Opal Mathews MD Primary Care Provider Active Start: August 18, 2024 End: August 18, 2024 Dr. Alicia Manzano MD Attending Provider Active Start: August 18, 2024 End: August 18, 2024 Dr. Alicia Manzano MD Referring Provider Active Start: August 18, 2024 End: August 18, 2024 Bulb Sorter Relationship Specialty Start Date End Date Opal Mathews MD [address] [place] [address] PCP - General Internal Medicine 02/19/19 Older, GENE TompkinsN.NURSE STAFF [address] [facility] [place] [address] Bundle Person Internal Medicine 04/13/24 Team Status: Active Member [...] September 26, 2024 Dr. Lauro Mason MD Attending Provider [...] Referring Provider Active Start: October 28, 2024 Team Status: Active Member Role/Relationship Status Dates Dr. Opal Mathews MD Primary Care Provider Active Team Status: Inactive Member Role/Relationship Status Dates Dr. Opal Mathews MD Primary Care Provider Active Start: July 17, 2024 End: July 17, 2024 Dr. Alicia Manzano MD Attending Provider Active Start: July 17, 2024 End: July 17, 2024 Dr. Alicia Manzano MD Referring Provider Active Start: July 17, 2024 End: July 17, 2024 Team Status: Inactive Member Role/Relationship Status Dates KENN Coronado Attending Provider Active Star t: July 21, 2024 End: July 21, 2024 KENN Coronado Referring Provider Active Star t: July 21, 2024 End: July 21, 2024 Team Status: Inactive Member Role/Relationship Status Dates Dr. Lauro Mason MD Attending Provider Active Start: July 28, 2024 End: July 28, 2024 Dr. Lauro Mason MD Referring Provider Active Start: July 28, 2024 End: July 28, 2024 Dr. Opal Mathews MD Primary Care Provider Active Start: July 28, 2024 End: July 28, 2024 Team Status: Inactive Member Role/Relationship Status Dates Dr. Opal Mathews MD Primary Care Provider Active Start: July 31, 2024 End: July 31, 2024 Meg HAWK PA Attending Provider Active Start: July 31, 2024 End: July 31, 2024 Meg HAWK PA Referring Provider Active Start: July 31, 2024 End: July 31, 2024 Team Status: Active Member Role/Relationship Status Dates Dr. Opal Mathews MD Primary Care Provider Active Start: August 18, 2024 Dr. Alicia Manzano MD Attending Provider Active Start: August 18, 2024 Dr. Alicia Manzano MD Referring Provider Active Start: August 18, 2024 Team Status: Inactive Member Role/Relationship Status Dates Dr. Opal Mathews MD Primary Care Provider Active Start: August 18, 2024 End: August 18, 2024 Dr. Alicia Manzano MD Attending Provider Active Start: August 18, 2024 End: August 18, 2024 Dr. Alicia Manzano MD Referring Provider Active Start: August 18, 2024 End: August 18, 2024 Team Status: Active Member Role/Relationship Status Dates Dr. Opal Mathews MD Primary Care Provider Active Start: August 20, 2024 Dr. Alicia Manzano MD Attending Provider Active Start: August 20, 2024 Dr. Alicia Manzano MD Referring Provider Active Start: August 20, 2024 Dr. Alicia Manzano MD Other Provider Active Star t: August 20, 2024 Team Status: Inactive Member Role/Relationship Status Dates Dr. Opal Mathews MD Primary Care Provider Active Start: September 17, 2024 End: September 17, 2024 Dr. Lauro Mason MD Attending Provider Active Start: September 17, 2024 End: September 17, 2024 Dr. Lauro Mason MD Referring Provider Active Start: September 17, 2024 End: September 17, 2024 Team Status: Inactive Member Role/Relationship Status Dates Dr. Opal Mathews MD Primary Care Provider Active Start: September 19, 2024 End: September 19, 2024 Dr. Lauro Mason MD Attending Provider Active Start: September 19, 2024 End: September 19, 2024 Dr. Lauro Mason MD Referring Provider Active Start: September 19, 2024 End: September 19, 2024 Team Status: Inactive Member Role/Relationship Status Dates Dr. Opal Mathews MD Primary Care Provider Active Start: September 26, 2024 End: September 26, 2024 Dr. Lauro Mason MD Attending Provider Active Start: September 26, 2024 End: September 26, 2024 Dr. Lauro Mason MD Referring Provider Active Start: September 26, 2024 End: September 26, 2024 Team Status: Inactive Member Role/Relationship Status Dates Dr. Opal Mathews MD Primary Care Provider Active Start: October 20, 2024 End: October 20, 2024 Dr. Opal Mathews MD Referring Provider Active Start: October 20, 2024 End: October 20, 2024 Dr. Alicia Manzano MD Attending Provider Active Start: October 20, 2024 End: October 20, 2024 Team Status: Inactive Member Role/Relationship Status Dates Dr. Opal Mathews MD Primary Care Provider Active Start: October 21, 2024 End: October 21, 2024 Dr. Alicia Manzano MD Attending Provider Active Start: October 21, 2024 End: October 21, 2024 Dr. Alicia Manzano MD Referring Provider Active Start: October 21, 2024 End: October 21, 2024 Team Status: Inactive Member Role/Relationship Status Dates Dr. Opal Mathews MD Primary Care Provider Active Start: October 28, 2024 End: October 28, 2024 Dr. Lauro Mason MD Attending Provider Active Start: October 28, 2024 End: October 28, 2024 Dr. Lauro Mason MD Referring Provider Active Start: October 28, 2024 End: October 28, 2024 Team Status: Active Member Role/Relationship Status Dates Dr. Opal Mathews MD Primary Care Provider Active Start: October 30, 2024 Dr. Lauro Mason MD Attending Provider Active Start: October 30, 2024 Dr. Lauro Mason MD Referring Provider Active Start: October 30, 2024 Team Status: Active Member Role/Relationship Status Dates Dr. Opal Mathews MD Primary Care Provider Active Start: October 31, 2024 Dr. Lauro Mason MD Attending Provider Active Start: October 31, 2024 Dr. Lauro Mason MD Referring Provider Active Start: October 31, 2024 Team Status: Inactive Member Role/Relationship Status Dates Dr. Opal Mathews MD Primary Care Provider Active Start: October 30, 2024 End: October 30, 2024 Dr. Lauro Mason MD Attending Provider Active Start: October 30, 2024 End: October 30, 2024 Dr. Lauro Mason MD Referring Provider Active Start: October 30, 2024 End: October 30, 2024 Team Status: Inactive Member Role/Relationship Status Dates Dr. Opal Mathews MD Primary Care Provider Active Start: October 31, 2024 End: October 31, 2024 Dr. Lauro Mason MD Attending Provider Active Start: October 31, 2024 End: October 31, 2024 Dr. Lauro Mason MD Referring Provider Active Start: October 31, 2024 End: October 31, 2024 Bulb Sorter Relationship Specialty Start Date End Date Opal Mathews MD [address] [place] [address] PCP - General Internal Medicine 02/19/19 Shahriar Brown APRN.CNP [address] [place], [place] [id number] Bundle Person Internal Medicine 04/13/24 Bulb Sorter Relationship Specialty Start Date End Date Opal Mathews MD [address] [place] [address] PCP - General Internal Medicine 02/19/19 Older, BOOKER Tompkins.NURSE STAFF [address] [place] [address] Bundle Person Internal Medicine 04/13/24 Team Status: Inactive Member Role/Relationship Status Dates Dr. Lauro Mason MD Attending Provider Active Start: July 28, 2024 End: July 28, 2024 Dr. Lauro Mason MD Referring Provider Active Start: July 28, 2024 End: July 28, 2024 Dr. Opal Mathews MD Primary Care Provider Active Start: July 28, 2024 End: July 28, 2024 Team Status: Inactive Member Role/Relationship Status Dates Dr. Opal Mathews MD Primary Care Provider Active Start: July 31, 2024 End: July 31, 2024 Meg HAWK PA Attending Provider Active Start: July 31, 2024 End: July 31, 2024 Meg HAWK PA Referring Provider Active Start: July 31, 2024 End: July 31, 2024 Team Status: Active Member Role/Relationship Status Dates Dr. Opal Mathews MD Primary Care Provider Active Start: August 18, 2024 Dr. Alicia Manzano MD Attending Provider Active Start: August 18, 2024 Dr. Alicia Manzano MD Referring Provider Active Start: August 18, 2024 Team Status: Inactive Member Role/Relationship Status Dates Dr. Opal Mathews MD Primary Care Provider Active Start: August 18, 2024 End: August 18, 2024 Dr. Alicia Manzano MD Attending Provider Active Start: August 18, 2024 End: August 18, 2024 Dr. Alicia Manzano MD Referring Provider Active Start: August 18, 2024 End: August 18, 2024 Team Status: Active Member Role/Relationship Status Dates Dr. Opal Mathews MD Primary Care Provider Active Start: August 20, 2024 Dr. Alicia Manzano MD Attending Provider Active Start: August 20, 2024 Dr. Alicia Manzano MD Referring Provider Active Start: August 20, 2024 Dr. Alicia Manzano MD Other Provider Active Star t: August 20, 2024 Team Status: Inactive Member Role/Relationship Status Dates Dr. Opal Mathews MD Primary Care Provider Active Start: September 17, 2024 End: September 17, 2024 Dr. Lauro Mason MD Attending Provider Active Start: September 17, 2024 End: September 17, 2024 Dr. Lauro Mason MD Referring Provider Active Start: September 17, 2024 End: September 17, 2024 Team Status: Inactive Member Role/Relationship Status Dates Dr. Opal Mathews MD Primary Care Provider Active Start: September 19, 2024 End: September 19, 2024 Dr. Lauro Mason MD Attending Provider Active Start: September 19, 2024 End: September 19, 2024 Dr. Lauro Mason MD Referring Provider Active Start: September 19, 2024 End: September 19, 2024 Team Status: Inactive Member Role/Relationship Status Dates Dr. Opal Mathews MD Primary Care Provider Active Start: September 26, 2024 End: September 26, 2024 Dr. Lauro Mason MD Attending Provider Active Start: September 26, 2024 End: September 26, 2024 Dr. Lauro Mason MD Referring Provider Active Start: September 26, 2024 End: September 26, 2024 Team Status: Inactive Member Role/Relationship Status Dates Dr. Opal Mathews MD Primary Care Provider Active Start: October 20, 2024 End: October 20, 2024 Dr. Opal Mathews MD Referring Provider Active Start: October 20, 2024 End: October 20, 2024 Dr. Alicia Manzano MD Attending Provider Active Start: October 20, 2024 End: October 20, 2024 Team Status: Inactive Member Role/Relationship Status Dates Dr. Opal Mathews MD Primary Care Provider Active Start: October 21, 2024 End: October 21, 2024 Dr. Alicia Manzano MD Attending Provider Active Start: October 21, 2024 End: October 21, 2024 Dr. Alicia Manzano MD Referring Provider Active Start: October 21, 2024 End: October 21, 2024 Team Status: Inactive Member Role/Relationship Status Dates Dr. Opal Mathews MD Primary Care Provider Active Start: October 28, 2024 End: October 28, 2024 Dr. Lauro Mason MD Attending Provider Active Start: October 28, 2024 End: October 28, 2024 Dr. Lauro Mason MD Referring Provider Active Start: October 28, 2024 End: October 28, 2024 Team Status: Inactive Member Role/Relationship Status Dates Dr. Opal Mathews MD Primary Care Provider Active Start: October 30, 2024 End: October 30, 2024 Dr. Lauro Mason MD Attending Provider Active Start: October 30, 2024 End: October 30, 2024 Dr. Lauro Mason MD Referring Provider Active Start: October 30, 2024 End: October 30, 2024 Team Status: Inactive Member Role/Relationship Status Dates Dr. Opal Mathews MD Primary Care Provider Active Start: October 31, 2024 End: October 31, 2024 Dr. Lauro Mason MD Attending Provider Active Start: October 31, 2024 End: October 31, 2024 Dr. Lauro Mason MD Referring Provider Active Start: October 31, 2024 End: October 31, 2024 Team Status: Inactive Member Role/Relationship Status Dates Dr. Opal Mathews MD Primary Care Provider Active Start: November 17, 2024 End: November 17, 2024 Dr. Lauro Mason MD Attending Provider Active Start: November 17, 2024 End: November 17, 2024 Dr. Lauro Mason MD Referring Provider Active Start: November 17, 2024 End: November 17, 2024 Team Status: Active Member Role/Relationship Status Dates Dr. Opal Mathews MD Primary Care Provider Active Start: November 18, 2024 TARAN VENEGAS MD Attending Provider Active S tart: November 18, 2024 TARAN VENEGAS MD Referring Provider Active S tart: November 18, 2024 Goals (unrecognized section and content) Goals [...] [id number] (Rate/Dose Change - Provider: Wilder Carey, CHILLER OPERATOR-AUDIO PRODUCTION INSTRUCTOR) PRN Medication Order 09/25/2023 09/26/2023 09/27/2023 Acetaminophen [...] Intra-op/Intra-Proc 0900 (Given - Provid er: Yamilet Arango MD) magnesium oxide (MAG-OX) tablet 800 mg [...] 09/27/23 at 1721, Created by cabinet override [id number] (Canceled Entry - Provider: System Discharge - [...] BE BASED ON THE PRIMARY CLINICAL RECORDS. [employer] provides no warranty or guarantee of the accuracy or completeness of information in this document.
--- NOTE | 2024-11-23 15:09 | EX.ED.GENINJ ---
HPI History of Present Illness Chief Complaint: Fall Detail of Chief Complaint: Fall injury right leg, knee, low back, right elbow and left shoulder Informant: patient Onset/Context/Timing Onset: Days (Fall occurred Sunday) Mechanism/Context: Blunt Injury and Fall Location of pain/injuries: - (Listed under detailed chief complaint) Quality of Pain: Dull and Aching Current Severity: Mild Maximum Severity: Moderate Worsened by: [facility] Relieved by: Nothing Associated Symptoms Associated Symptoms: Negative for Parasthesias, Weakness, Loss of function, Inability to ambulate, Loss of consciousness or Amnesia Narrative Narrative: Patient is a 59-year-old woman. She is on anticoagulant. She states she was told by her music therapy teacher that it was she was to be on anticoagulant for life. She is scheduled for colonoscopy on Sunday and is going to hold her Eliquis for the colonoscopy. She states she was walking into the hotel she was staying at. She was out of town at a [employer] shift gathering. Apparently someone's foot caught on a rug. The rug lifted and she tripped. She landed on her right side. Denies head trauma. Denies headache. Denies visual disturbance. She denies neck pain. She does complain of left shoulder pain, right elbow pain, right lower back pain, right knee and leg pain. She is also concerned because of the discoloration and swelling of her right leg. Use of the involved extremities causes increased pain. She is taken Tylenol with no improvement. She cannot take NSAIDs and she is on anticoagulant. She denies neck pain. She denies paresthesia, anesthesia or motor weakness upper or lower extremity. She denies problems with coordination or balance. Prior similar symptoms: No Recent Illness/Hospitalization: No PFSH PFS Medical History Hypertension History of echocardiogram Hyponatremia MRSA infection Wears glasses Anxiety Degenerative disc disease Gastric reflux History of edema Non-smoker Sleep apnea CPAP (continuous positive airway pressure) dependence Asthma History of stress test Cardiology follow-up encounter COVID (~04/2023) Paroxysmal atrial fibrillation Atrial fibrillation by electrocardiography Dyslipidemia Dyspnea Abnormal bruising Srini's disease SOB (shortness of breath) on exertion Coronary artery disease Abnormal exercise tolerance test Chest pain Palpitations Abnormal finding on EKG HSV-2 infection Cervicalgia Mixed connective tissue disease Interstitial lung disease Raynaud disease Essential hypertension Lupus Graves disease Fibromyalgia Diabetes Home Medications ?Medication ?Instructions ?Recorded ?Last Taken ?Type fluticasone propionate 50 2 spray NASAL DAILY PRN allergy 05/15/20 Unknown History mcg/actuation nasal symptoms spray,suspension levalbuterol tartrate 45 15 g IH Q4H PRN PRN Shortness Of 05/15/20 Unknown History mcg/actuation aerosol inhaler Breath montelukast 10 mg tablet 10 mg PO DAILY 05/15/20 Unknown History epinephrine 0.3 mg/0.3 mL 0.3 mg IM ONCE 08/04/22 Unknown History injection, auto-injector metformin 500 mg tablet,extended 1,000 mg PO BID 08/08/22 12/26/22 History release 24 hr nitroglycerin 0.4 mg sublingual 0.4 mg sublingual Q5M PRN 12/27/22 Unknown Rx tablet Cardiac/Chest Pain #15 tabs bupropion HCl 150 mg 24 hr tablet, 150 mg PO QAM 02/13/24 05/14/24 History extended release aspirin 81 mg tablet,delayed 81 mg PO DAILY #90 tabs 04/15/24 Unknown Rx release (Adult Aspirin Regimen) ferrous sulfate 325 mg (65 mg 325 mg PO BID 04/15/24 Unknown History iron) tablet (FeroSul) hydroxychloroquine 200 mg tablet 200 mg PO BID 04/15/24 Unknown History citalopram 40 mg tablet 40 mg PO DAILY 05/10/24 Unknown History apixaban 5 mg tablet (Eliquis) 5 mg PO BID 05/12/24 05/10/24 History isosorbide mononitrate 30 mg 30 mg PO QAM #90 tabs 06/02/24 Unknown Rx tablet,extended release 24 hr amlodipine 5 mg tablet 5 mg PO QDAY #90 tabs 07/28/24 Unknown Rx carvedilol 25 mg tablet 25 mg PO BID #180 tabs 08/18/24 Unknown Rx losartan 50 mg tablet 50 mg PO QHS #90 tabs 09/04/24 Unknown Rx pravastatin 20 mg tablet 20 mg PO QHS #90 tabs 09/12/24 Unknown Rx albuterol sulfate 90 mcg/actuation 2 puff inhalation wheezing 10/20/24 Unknown History aerosol inhaler (Ventolin HFA) tobramycin sulfate 40 mg/mL 160 mg inhalation BID 10/20/24 Unknown History injection solution pantoprazole 40 mg tablet,delayed 40 mg PO QDAY #60 tabs 11/11/24 Unknown Rx release hydrocodone-acetaminophen 5-325mg 1 tab PO Q6H PRN PRN Pain 3 days 11/23/24 Unknown Rx 5mg-325mg #10 TABLETS Allergy/AdvReac Type Severity Reaction Status Date / Time cantaloupe Allergy Angioedema Verified 11/23/24 14:04 Sulfa (Sulfonamide Allergy Hives Verified 11/23/24 14:04 Antibiotics) diltiazem AdvReac Intermediate Hypotension, Verified 11/23/24 14:04 lightheaded and dizzy levofloxacin (From Levaquin) AdvReac Intermediate Hives Verified 11/23/24 14:04 Family History Mother CAD (coronary artery disease) stents Hypertension Vertigo Pacemaker Enlarged heart Father Cancer prostate Sister Sjogrens syndrome Grandmother Heart disease Grandfather Heart disease Uncle Heart disease Enlarged heart Surgical History History of cardiac catheterization Stented coronary artery (~12/27/22) Hx of sinus surgery Hx of bilateral cataract extraction Hx of tonsillectomy Hx of hysterectomy Hx of dilation and curettage Social History Smoking Status: Never smoker alcohol intake: current alcohol intake frequency: holidays/special occasions only substance use type: does not use caffeine: Yes Type: coffee Number of servings: 1 ROS ROS ED Constitutional Constitutional ED: Denies chills, fever(s) or subjective Eyes Eyes: Denies blurry vision or change in vision ENT ENT ED: Reports other Details: See HPI narrative and no epistaxis Cardiovascular Cardiovascular: Denies chest pain or palpitations Respiratory/Chest Respiratory/Chest: Denies cough, dyspnea or dyspnea on exertion Gastrointestinal Gastrointestinal: Denies abdominal pain, nausea or vomiting Genitourinary Genitourinary ED: Denies hematuria Musculoskeletal Musculoskeletal: Reports back pain and other Details: HPI narrative ; Denies arthralgias or myalgias Integumentary Reports other Details: Bruising right elbow, right knee, right leg Neurologic Neurologic: Denies headache(s) or paresthesias Endocrine Endocrinology: Denies cold intolerance or heat intolerance Hematologic/Lymphatic Hematologic/Lymphatic: Reports easy bruising EXAM Physical Exam Const Vital Signs: 11/23/24 14:03 11/23/24 14:15 Temperature 97.4 F L Temperature Source Temporal Pulse Rate 87 Respiratory Rate 16 Respiratory Effort Normal Non-Labored Respiratory Depth Normal Respiratory Pattern Normal Blood Pressure 185/96 H Blood Pressure Mean 125 Pulse Ox 97 Oxygen Delivery Method Room Air Room Air Positive well nourished and well developed Constitutional Narrative: Vital signs noted and blood pressure is elevated. General Appearance ED: well developed HEENT HEENT Narrative: Atraumatic normocephalic. Ears normal. Nares patent. Teeth normal. Eyes PERRL and EOMs intact bilaterally General Eye ED: Yes other Other Details: No subconjunctival hemorrhage. Neck full ROM Neck Narrative: No posterior midline pain. General: Negative for tenderness Resp normal respiratory effort and clear to auscultation bilaterally Cardio regular rhythm, S1 normal heart sound, S2 normal heart sound and no murmurs Rhythm: abnormal rhythm GI non-tender, non-distended and no masses Back/Spine normal to inspection and no thoracic nor lumbar tenderness Back/Spine Narrative: Right paralumbar discomfort. There is no bruising noted. Is no pain ovation over the iliac wing, ischial tuberosity. Alex Ilya 4 test is negative. Patient able to extend to 180 degrees and hold her leg against gravity. She is able to flex to 90 degrees. There is no laxity varus valgus stress testing. There is pain the patient over the right patella. The patella is not ballotable. There is no obvious effusion. There is soft tissue swelling. She has significant bruising noted. There is no nervous Most of the extremity. There is bruising noted lateral right elbow. There is no point tenderness over the lateral medial epicondyle, lateral process or radial head with supination pronation. Axillary, radial, median and ulnar function intact. Radial pulses 2+. She has full active range of motion at the shoulder, elbow and wrist. Patient has no bruising to the left elbow or shoulder. There is no history of direct trauma. She has full active range of motion. Axillary, median, radial and ulnar function intact. There is no point tenderness over the clavicle, AC joint or proximal humerus. Extremity Extremity Narrative: Documented under back/spine portion of the EMR Neuro oriented x3, CN's II-XII intact bilaterally, moves all extremities, no focal motor deficits and no sensory deficits noted Neuro Narrative: Limp and walks with a cane Liang Coma Scale: document GCS findings Spontaneous Obeys Commands Oriented 15 Deep Tendon Reflexes: Rt Triceps (C7): 1+, Lt Triceps (C7): 1+, Rt Biceps (C5, C6): 1+, Lt Biceps (C5, C6): 1+, Rt Brachioradialis (C6): 1+, Lt Brachioradialis (C6): 1+, Rt Patellar (L4): 1+, Lt Patellar (L4): 1+, Rt Ankle (S1): 1+ and Lt Ankle (S1): 1+ Deep Tendon Reflexes Back: Rt Patellar (L4): 1+, Lt Patellar (L4): 1+, Rt Ankle (S1): 1+ and Lt Ankle (S1): 1+ Plantar Reflex: Downgoing: bilateral Psych mental status grossly normal and thought process normal Skin Skin Narrative: Multiple bruises previously described MDM MDM MDM Narrative Medical decision making narrative: In my opinion patient has contusion to the right elbow with no bony tenderness and imaging was not obtained. Feel patient has a strain of the shoulder and imaging was not changed there is no history direct trauma and there is no point tenderness. With regards to the back she has paralumbar discomfort not midline pain and reason for no x-ray. Since she has point tenderness over the patella x-ray was obtained. This was independent reviewed interpreted by me. This was obtained to evaluate for patella fracture. Radiography Chest X-Ray - ED: Read by ED Physician (4 view x-ray of the right knee was obtained. There is no Insa fracture, subluxation dislocation. The patella is not high riding. There is soft tissue swelling noted. There is no evidence of an effusion. There is an Elsie reviewed interpreted by me 1510.) Treatment and Re-Evaluation Narrative: Since patient drove herself to the emergency room she did not receive opiate analgesic. NSAIDs are contraindicated. Discharge Plan Triage Chief Complaint: Fall ED Provider: Sami Rivera Dx/Rx/DC Orders Clinical Impression: Contusion of right knee, initial encounter, Contusion of right lower leg, initial encounter, Contusion of right elbow, initial encounter, Left shoulder strain, Acute right-sided low back pain, Anticoagulant long-term use Instructions: ED Contusion, Lower Extremity, ED Muscle Strain, Extremity Prescriptions: New hydrocodone-acetaminophen 5-325 mg tablet 1 tab PO Q6H PRN PRN (Reason: Pain) 3 Days Qty: 10 0RF No Action epinephrine 0.3 mg/0.3 mL auto-injector 0.3 mg IM ONCE Rx Instructions: as a single dose; may repeat once ferrous sulfate [FeroSul] 325 mg (65 mg iron) tablet 325 mg PO BID hydroxychloroquine 200 mg tablet 200 mg PO BID aspirin [Adult Aspirin Regimen] 81 mg tablet,delayed release (DR/EC) 81 mg PO DAILY Qty: 90 3RF bupropion HCl 150 mg tablet extended release 24 hr 150 mg PO QAM tobramycin sulfate 40 mg/mL solution 160 mg inhalation BID albuterol sulfate [Ventolin HFA] 90 mcg/actuation HFA aerosol inhaler 2 puff inhalation fluticasone propionate 1 SPRAY spray,suspension 2 spray NASAL DAILY PRN (Reason: allergy symptoms) montelukast 10 MG tablet 10 mg PO DAILY levalbuterol tartrate 15 GM HFA aerosol inhaler 15 g IH Q4H PRN PRN (Reason: Shortness Of Breath) metformin 500 mg tablet extended release 24 hr 1,000 mg PO BID nitroglycerin 0.4 mg Tablet, Sublingual 0.4 mg sublingual Q5M PRN (Reason: Cardiac/Chest Pain) Qty: 15 6RF Eliquis 5 mg tablet 5 mg PO BID Patient Comments: WILL BE CALLING [facility] TO FIND OUT WHEN TO STOP citalopram 40 mg tablet 40 mg PO DAILY isosorbide mononitrate 30 mg tablet extended release 24 hr 30 mg PO QAM Qty: 90 3RF amlodipine 5 mg tablet 5 mg PO QDAY Qty: 90 3RF carvedilol 25 mg tablet 25 mg PO BID Qty: 180 3RF losartan 50 mg tablet 50 mg PO QHS Qty: 90 3RF pravastatin 20 mg tablet 20 mg PO QHS Qty: 90 4RF pantoprazole 40 mg tablet,delayed release (DR/EC) 40 mg PO QDAY Qty: 60 2RF Primary Care Provider: Opal Bernal Referrals: Opal Bernal MD [Primary Care Provider] - As Needed Activity Restrictions/Additional Instructions: 1. Apply ice to your bruised area 6-8 times a day. 2. Take medication as prescribed for pain. 3. Hold your Eliquis for the next 4 doses 4. You may be black and blue for up to 3 months Print Language: Serbian Disposition Disposition: Home, Self Care
[2024-11-23 15:33] VITALS: BP 160/89; PULSE 77; RESP 18; TEMP 36.2; O2SAT 100
== END 2024-11-23 15:35 | disposition home or self-care (01) ==
PROVIDERS: Emergency Provider Emergency Medicine; PCP Internal Medicine; Referring Provider Emergency Medicine; Visit Provider Emergency Medicine
DX: S80.01XA Contusion of right knee, initial encounter (principal); I48.0 Paroxysmal atrial fibrillation; E11.9 Type 2 diabetes mellitus without complications; M54.50 Low back pain, unspecified; Z79.01 Long term (current) use of anticoagulants; I10 Essential (primary) hypertension; S46.919A Strain of unspecified muscle, fascia and tendon at shoulder and upper arm level, unspecified arm, initial encounter; I25.10 Atherosclerotic heart disease of native coronary artery without angina pectoris; E78.5 Hyperlipidemia, unspecified; S50.01XA Contusion of right elbow, initial encounter; S80.11XA Contusion of right lower leg, initial encounter; Z90.710 Acquired absence of both cervix and uterus; W01.0XXA Fall on same level from slipping, tripping and stumbling without subsequent striking against object, initial encounter; Y92.59 Other trade areas as the place of occurrence of the external cause; G47.30 Sleep apnea, unspecified; Z99.89 Dependence on other enabling machines and devices; J45.909 Unspecified asthma, uncomplicated; Z79.51 Long term (current) use of inhaled steroids; Z79.84 Long term (current) use of oral hypoglycemic drugs; F41.9 Anxiety disorder, unspecified; Z79.899 Other long term (current) drug therapy; K21.9 Gastro-esophageal reflux disease without esophagitis; Z95.5 Presence of coronary angioplasty implant and graft; Z98.41 Cataract extraction status, right eye; Z98.42 Cataract extraction status, left eye
CPT/HCPCS: 73564; 99282

== ENCOUNTER 2024-11-26 12:46 | Day surgery (SDC) | payer MEDICAID, SELFPAY ==
[2023-04-18 11:48] VITALS: BMI 32.9
--- NOTE | 2024-07-25 14:20 | PAT.ANESEVAL ---
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 When Was Last Pacemaker Check QUESTION #4 FULL TEXT: You/Your Family Experience fever (hyperthermia) with Anesthesia Last Oral Intake Last Oral intake: Last Oral Intake NPO since Meds taken in AM with sips of water? 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 Has anyone observed you stop breathing during sleep? STOP Results Positive 07/25/24 13:49 QUESTION #5 FULL TEXT : Do you snore loudly (louder than talking or can be heard through closed doors)? 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 Specify any problems Hx of Preganancy in last 3 No 07/25/24 13:49 Months Nurse Filling Out Transfusion [place] 07/25/24 13:49 & Questions: Date: 07/25/24 07/25/24 13:49 Time: 13:55 07/25/24 13:49 Patient unable to answer at this time (ie. 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: /Reproductive Hx- corporate physical security supervisor Hx Now No 07/25/24 13:49 Gestational Age (in weeks): EDC: Hx Hx Para Hx Section SAB PFSH Medical History Hypertension History of echocardiogram Hyponatremia MRSA infection Wears glasses Anxiety Degenerative disc disease Gastric reflux History of edema Non-smoker Sleep apnea CPAP (continuous positive airway pressure) dependence Asthma History of stress test Cardiology follow-up encounter COVID (~04/2023) Paroxysmal atrial fibrillation Atrial fibrillation by electrocardiography Dyslipidemia Dyspnea Abnormal bruising Srini's disease SOB (shortness of breath) on exertion Coronary artery disease Abnormal exercise tolerance test Chest pain Palpitations Abnormal finding on EKG HSV-2 infection Cervicalgia Mixed connective tissue disease Interstitial lung disease Raynaud disease Essential hypertension Lupus Graves disease Fibromyalgia Diabetes Home Medications Medication Instructions Recorded Last Taken Type fluticasone propionate 50 2 spray NASAL DAILY PRN allergy 05/15/20 Unknown History mcg/actuation nasal symptoms spray,suspension levalbuterol tartrate 45 15 g IH Q4H PRN PRN Shortness Of 05/15/20 Unknown History mcg/actuation aerosol inhaler Breath montelukast 10 mg tablet 10 mg PO DAILY 05/15/20 Unknown History epinephrine 0.3 mg/0.3 mL 0.3 mg IM ONCE 08/04/22 Unknown History injection, auto-injector metformin 500 mg tablet,extended 1,000 mg PO BID 08/08/22 12/26/22 History release 24 hr nitroglycerin 0.4 mg sublingual 0.4 mg sublingual Q5M PRN 12/27/22 Unknown Rx tablet Cardiac/Chest Pain #15 tabs pravastatin 20 mg tablet 20 mg PO QHS #90 tabs 07/10/23 Unknown Rx bupropion HCl 150 mg 24 hr tablet, 150 mg PO QAM 02/13/24 05/14/24 History extended release aspirin 81 mg tablet,delayed 81 mg PO DAILY #90 tabs 04/15/24 Unknown Rx release (Adult Aspirin Regimen) ferrous sulfate 325 mg (65 mg 325 mg PO BID 04/15/24 Unknown History iron) tablet (FeroSul) hydroxychloroquine 200 mg tablet 200 mg PO BID 04/15/24 Unknown History losartan 50 mg tablet 50 mg PO BID this is dose increase 04/29/24 05/14/24 Rx #180 tabs citalopram 40 mg tablet 40 mg PO DAILY 05/10/24 Unknown History apixaban 5 mg tablet (Eliquis) 5 mg PO BID 05/12/24 05/10/24 History isosorbide mononitrate 30 mg 30 mg PO QAM #90 tabs 06/02/24 Unknown Rx tablet,extended release 24 hr pantoprazole 40 mg tablet,delayed 40 mg PO QDAY #60 tabs 06/18/24 Unknown Rx release carvedilol 25 mg tablet 25 mg PO BID 06/30/24 Unknown History hydrochlorothiazide 12.5 mg tablet 12.5 mg PO QDAY #90 tabs 06/30/24 Unknown Rx Held on 07/17/24. Instructions: Home Medication placed on hold at Doctor's office Allergy/AdvReac Type Severity Reaction Status Date / Time cantaloupe Allergy Angioedema Verified 07/25/24 13:41 Sulfa (Sulfonamide Allergy Hives Verified 07/25/24 13:41 Antibiotics) diltiazem AdvReac Intermediate Hypotension, Verified 07/25/24 13:41 lightheaded and dizzy levofloxacin (From Levaquin) AdvReac Intermediate Hives Verified 07/25/24 13:41 Family History Mother CAD (coronary artery disease) stents Hypertension Vertigo Pacemaker Enlarged heart Father Cancer prostate Sister Sjogrens syndrome Grandmother Heart disease Grandfather Heart disease Uncle Heart disease Enlarged heart Surgical History History of cardiac catheterization Stented coronary artery (~12/27/22) Hx of sinus surgery Hx of bilateral cataract extraction Hx of tonsillectomy Hx of hysterectomy Hx of dilation and curettage Social History Smoking Status: Never smoker alcohol intake: current alcohol intake frequency: holidays/special occasions only substance use type: does not use caffeine: Yes Type: coffee Number of servings: 1 Audit: Pertinent Findings Pertinent Findings EKG Perinent findings: Normal sinus rhythm Minimal voltage criteria for LVH, may be normal variant ( R in aVL ) Borderline ECG Stress test pertinent findings: 1. Technically adequate exercise tolerance test 2. Peak exercise ECG with no ischemic changes 3. There were no cardiac dysrhythmias pretest, during exercise, or recovery 4. Rest and stress SPECT Cardiolite nuclear imaging demonstrate relative uniform tracer uptake and myocardial perfusion appearing within normal limits. 5. The gated Cardiolite study reports an LVEF of 76%. Echo (EF%) pertinent findings: Normal LV size and thickness. LVEF 65 %. Normal diastolic function. Recommendation Anesthesia Recommendation Anesthesia recommendation: OPTIMIZED for anesthesia
[2024-11-26] VITALS (8 sets, daily range): BP systolic 87–128; BP diastolic 41–73; PULSE 67–76; RESP 12–16; TEMP 36.4–36.7; O2SAT 97–99; BMI 35.1
--- NOTE | 2024-11-26 13:00 | PCM.HP.STD ---
HPI - General General Date of Admission: 11/26/24 Date of Service: 11/26/24 Chief Complaint: Anemia HPI Narrative VIVI ANAND, is a 59 F who presents Chief Complaint: fatigue BGI established 10.. for evaluation of anemia. EGD 05.14.24;- Normal esophagus. - Red blood in the gastric body. - Multiple gastric polyps. Resected and retrieved. Clip was placed. 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 - A single non-bleeding angiodysplastic lesion in the stomach. Treated with a heater probe. - No gross lesions in the second portion of the duodenum. Liver elastography 02.28.24; Liver stiffness measures 10.7 kPa compatible with F2-F3 (Mild to moderate liver fibrosis) Metavir score. OV 06.18.24 Pt continues to have fatigue. She is unable to get out of bed some days because she feels so tired. This is unlike her. She has some epigastric discomfort after eating and sometimes in the morning. Assessment and Plan Assessment and Plan (1) Fatigue: Status: Acute Plan: This is a 58 yo female pt here today for f/u. Pt continues to have issues with fatigue. She has had to call off work because she cannot get out of bed. I ordered blood work with CBC, CMP, iron and vitamin D to assess her symptoms. She is having epigastric discomfort after eating meals. SHe has been on lansoprazole for many years. Will switch to pantoprazole 40 mg daily. Pending results will consider treatment plan. Her fatigue may be related to anemia, fatty liver or vitamin deficiency. -Blood work -Switch to pantoprazole 40 mg daily -Consider rezdiffra -Consider capsule endoscopy -f/u in 3 months (2) Fatty liver: Status: Acute (3) Anemia: Status: Inactive Medications: New pantoprazole 40 mg PO QDAY 60 tabs 2RF PFSH Medical History (Updated 11/24/24 @ 11:59 by Gerri Montgomery) Accidental fall Hypertension History of echocardiogram Hyponatremia MRSA infection Wears glasses Anxiety Degenerative disc disease Gastric reflux History of edema Non-smoker Sleep apnea CPAP (continuous positive airway pressure) dependence Asthma History of stress test Cardiology follow-up encounter COVID (~04/2023) Paroxysmal atrial fibrillation Atrial fibrillation by electrocardiography Dyslipidemia Dyspnea Abnormal bruising Srini's disease SOB (shortness of breath) on exertion Coronary artery disease Abnormal exercise tolerance test Chest pain Palpitations Abnormal finding on EKG HSV-2 infection Cervicalgia Mixed connective tissue disease Interstitial lung disease Raynaud disease Essential hypertension Lupus Graves disease Fibromyalgia Diabetes Home Medications Medication Instructions Recorded Last Taken Type fluticasone propionate 50 2 spray NASAL DAILY PRN allergy 05/15/20 Unknown History mcg/actuation nasal symptoms spray,suspension levalbuterol tartrate 45 15 g IH Q4H PRN PRN Shortness Of 05/15/20 Unknown History mcg/actuation aerosol inhaler Breath montelukast 10 mg tablet 10 mg PO DAILY 05/15/20 Unknown History epinephrine 0.3 mg/0.3 mL 0.3 mg IM ONCE 08/04/22 Unknown History injection, auto-injector metformin 500 mg tablet,extended 1,000 mg PO BID 08/08/22 12/26/22 History release 24 hr nitroglycerin 0.4 mg sublingual 0.4 mg sublingual Q5M PRN 12/27/22 Unknown Rx tablet Cardiac/Chest Pain #15 tabs bupropion HCl 150 mg 24 hr tablet, 150 mg PO QAM 02/13/24 05/14/24 History extended release aspirin 81 mg tablet,delayed 81 mg PO DAILY #90 tabs 04/15/24 Unknown Rx release (Adult Aspirin Regimen) ferrous sulfate 325 mg (65 mg 325 mg PO BID 04/15/24 Unknown History iron) tablet (FeroSul) hydroxychloroquine 200 mg tablet 200 mg PO BID 04/15/24 Unknown History citalopram 40 mg tablet 40 mg PO DAILY 05/10/24 Unknown History apixaban 5 mg tablet (Eliquis) 5 mg PO BID 05/12/24 05/10/24 History isosorbide mononitrate 30 mg 30 mg PO QAM #90 tabs 06/02/24 Unknown Rx tablet,extended release 24 hr amlodipine 5 mg tablet 5 mg PO QDAY #90 tabs 07/28/24 Unknown Rx carvedilol 25 mg tablet 25 mg PO BID #180 tabs 08/18/24 Unknown Rx losartan 50 mg tablet 50 mg PO QHS #90 tabs 09/04/24 Unknown Rx pravastatin 20 mg tablet 20 mg PO QHS #90 tabs 09/12/24 Unknown Rx albuterol sulfate 90 mcg/actuation 2 puff inhalation Q6H PRN wheezing 10/20/24 Unknown History aerosol inhaler (Ventolin HFA) pantoprazole 40 mg tablet,delayed 40 mg PO QDAY #60 tabs 11/11/24 Unknown Rx release albuterol sulfate 2.5 mg/3 mL 2.5 mg inhalation TID PRN 11/24/24 Unknown History (0.083 %) solution for nebulization shortness of breath or wheezing Allergy/AdvReac Type Severity Reaction Status Date / Time cantaloupe Allergy Angioedema Verified 11/24/24 11:46 Sulfa (Sulfonamide Allergy Hives Verified 11/24/24 11:46 Antibiotics) diltiazem AdvReac Intermediate Hypotension, Verified 11/24/24 11:46 lightheaded and dizzy levofloxacin (From Levaquin) AdvReac Intermediate Hives Verified 11/24/24 11:46 Family History Mother CAD (coronary artery disease) stents Hypertension Vertigo Pacemaker Enlarged heart Father Cancer prostate Sister Sjogrens syndrome Grandmother Heart disease Grandfather Heart disease Uncle Heart disease Enlarged heart Surgical History History of cardiac catheterization Stented coronary artery (~12/27/22) Hx of sinus surgery Hx of bilateral cataract extraction Hx of tonsillectomy Hx of hysterectomy Hx of dilation and curettage Social History Smoking Status: Never smoker alcohol intake: current alcohol intake frequency: holidays/special occasions only substance use type: does not use caffeine: Yes Type: coffee Number of servings: 1
[2024-11-26] MEDS: Lactated Ringers 1,000 ML 15 ML IV (13:33)
--- NOTE | 2024-11-26 13:34 | PRE.ANES_ITS ---
ASA Classification* ASA Classification ASA Classification: 3 Assessment & Plan Anesthesia* Anesthesia Assessment Anesthesia Assessment: Discussed sedation and/or anesthesia options, risks, benefits, and alternatives with patient/parents/legal guardian/POA. Questions invited. The patient/parents/legal guardian/POA seems to understand and agrees to proceed with anesthesia plan. Reviewed the physical assessment, medical history, allergy history and patient home medications list prior to surgery/procedure/anesthetic and documented any changes. Performed airway and anesthesia risk assessments. Anesthesia Type Anesthesia Type: MAC History Source History Obtained from:: Patient and Chart Anesthesia Focused Assessment* Temperature: 98.0 F Pulse Rate: 76 Blood Pressure: 128/73 Respiratory Rate: 16 Pulse Ox: 99 Oxygen Delivery Method: Room Air Airway Assessment Mouth opens: >3 cm Mallampati Score: I Teeth Condition: Chipped/Broken (Patient has a couple cracked left molars.) Neck Range of motion (ROM): Full ROM Labs Anesthesia Preop lab: CBC WBC 3.3 K/mm3 (4.4-11.0) L 10/21/24 09:10/21/24 RBC 3.96 M/mm3 (4.2-5.4) L 10/21/24 09:10/21/24 Hgb 12.5 g/dL (12.0-15.0) 10/21/24 09:10/21/24 Hct 36.7 % (37-47) L 10/21/24 09:27 10/21/24 Plt Count 146 K/mm3 (150-450) L 10/21/24 09:27 10/21/24 CHEMISTRY Potassium 4.5 mmol/L (3.3-5.1) 10/21/24 09:27 10/21/24 Sodium 136 mmol/L (133-145) 10/21/24 09:10/21/24 Magnesium 1.6 mg/dL (1.6-2.6) 10/22/23 16:37 10/22/23 BUN 12 mg/dL (4-19) 10/21/24 09:10/21/24 Creatinine 0.72 mg/dL (0.70-1.20) 10/21/24 09:27 10/21/24 Glucose 118 mg/dL (70-99) H 10/21/24 09:27 10/21/24 POC Glucose 100 mg/dL (74-106) 05/14/24 13:21 05/14/24 TSH 0.721 uIU/mL (0.358-3.740) 04/27/24 12:15 04/07 06/30 COAG PT 15.7 SECONDS (11.7-14.9) H 05/14/24 13:46 12/29 Pre-Assessment Diagnosis/Proposed Procedure Planned Operative Procedure(s): COLONOSCOPY Anesthesia History 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 Slow to wake up. 11/24/24 11:59 Cholinesterase deficiency No 11/24/24 11:59 You/Your Family Experience No 11/24/24 11:59 fever (hyperthermia) with Relationship Recent Exposure to Contagious No 11/26/24 13:12 Disease Does patient have nerve No 11/24/24 11:59 stimulator Patient instructed to have device shut off --Does patient have Pacemaker No 11/26/24 13:12 or ICD? When Was Last Pacemaker Check QUESTION #4 FULL TEXT: You/Your Family Experience fever (hyperthermia) with Anesthesia Last Oral Intake Last Oral intake: Last Oral Intake NPO since 10:00 11/26/24 13:12 Meds taken in AM with sips of Yes 11/26/24 13:12 water? 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 Female Yes 11/24/24 11:59 HX of Motion Sickness No 11/24/24 11:59 HX of N/V After Surgery No 11/24/24 11:59 Non-Smoker Yes 11/24/24 11:59 Duration of Surgery greater No 11/24/24 11:59 than 60 minutes Number of Risk Factors 2 11/24/24 11:59 PONV Score Moderate Risk 11/24/24 11:59 Height & Weight Height & Weight: Anesthesia: Height & Weight Height 5 ft 3 in 11/26/24 13:12 Weight: 90 kg 11/26/24 13:12 Body Mass Index (BMI) 35.1 11/26/24 13:12 Respiratory Assessment Respiratory Assessment - electromechanical equipment assembler: Respiratory Tract Infection Hx - electromechanical equipment assembler Hx Respiratory Tract Infection No 11/24/24 11:59 Any additional information?: Yes Hx Respiratory Tract Infection: Yes History of Anesthesia Respiratory Infection details: Patient has had pneumonia since September 13. She has felt better for about the last week. STOP Sleep Apnea STOP Sleep Apnea - electromechanical equipment assembler: STOP Sleep Apnea - electromechanical equipment assembler Hx Hypertension Yes: CONTROLLED WITH MEDS 11/24/24 11:59 Hx Sleep Apnea Yes 11/24/24 11:59 CPAP Yes 11/24/24 11:59 BIPAP No 11/24/24 11:59 Do you snore loudly (louder than talking or can be heard Do you often feel tired/ fatigued/ sleepy during daytime? Has anyone observed you stop breathing during sleep? STOP Results Positive 11/24/24 11:59 QUESTION #5 FULL TEXT : Do you snore loudly (louder than talking or can be heard through closed doors)? 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 Specify any problems Hx of Preganancy in last 3 No 11/24/24 11:59 Months Nurse Filling Out Transfusion VCHRISTIN 11/24/24 11:59 & Questions: Date: 11/24/24 11/24/24 11:59 Time: 11:59 11/24/24 11:59 Patient unable to answer at this time (ie. confused, unrespo /Reproduction History /Reproductive History - electromechanical equipment assembler: /Reproductive Hx- electromechanical equipment assembler Hx Now No 11/24/24 11:59 Gestational Age (in weeks): EDC: Hx Hx Para Hx Section SAB No 11/24/24 11:59 Active Medications Active Medications: Current Medications Generic Name Dose Route Start Last Admin Trade Name Freq PRN Reason Stop Dose Admin Lactated Ringer's 1,000 mls @ 15 mls/hr 11/26/24 13:00 11/26/24 13:33 IV 15 mls/hr .Q48H DIVYA Administration PFSH Medical History Accidental fall Hypertension History of echocardiogram Hyponatremia MRSA infection Wears glasses Anxiety Degenerative disc disease Gastric reflux History of edema Non-smoker Sleep apnea CPAP (continuous positive airway pressure) dependence Asthma History of stress test Cardiology follow-up encounter COVID (~04/2023) Paroxysmal atrial fibrillation Atrial fibrillation by electrocardiography Dyslipidemia Dyspnea Abnormal bruising Srini's disease SOB (shortness of breath) on exertion Coronary artery disease Abnormal exercise tolerance test Chest pain Palpitations Abnormal finding on EKG HSV-2 infection Cervicalgia Mixed connective tissue disease Interstitial lung disease Raynaud disease Essential hypertension Lupus Graves disease Fibromyalgia Diabetes Home Medications Medication Instructions Recorded Last Taken Type fluticasone propionate 50 2 spray NASAL DAILY PRN lauro rgy 05/15/20 Unknown History mcg/actuation nasal symptoms spray,suspension levalbuterol tartrate 45 15 g IH Q4H PRN PRN Shortnes s Of 05/15/20 Unknown History mcg/actuation aerosol inhaler Breath montelukast 10 mg tablet 10 mg PO DAILY 05/15/2011/05 History epinephrine 0.3 mg/0.3 mL 0.3 mg IM ONCE 08/04/22 Unkn own History injection, auto-injector metformin 500 mg tablet,extended 1,000 mg PO BID 08/0811/25/24 History release 24 hr nitroglycerin 0.4 mg sublingual 0.4 mg sublingual Q5M PRN 12/27/22 Unknown Rx tablet Cardiac/Chest Pain #15 tabs bupropion HCl 150 mg 24 hr tablet, 150 mg PO QAM 02/1205/14/24 History extended release aspirin 81 mg tablet,delayed 81 mg PO DAILY #90 tabs 1 06/16/23 11/23/24 Rx release (Adult Aspirin Regimen) ferrous sulfate 325 mg (65 mg 325 mg PO BID 04/15/24 U nknown History iron) tablet (FeroSul) hydroxychloroquine 200 mg tablet 200 mg PO BID 4 11/25/24 History citalopram 40 mg tablet 40 mg PO DAILY 05/10/2411/05 History apixaban 5 mg tablet (Eliquis) 5 mg PO BID 05/12/24 History isosorbide mononitrate 30 mg 30 mg PO QAM #90 tabs 11/26/24 Rx tablet,extended release 24 hr amlodipine 5 mg tablet 5 mg PO QDAY #90 tabs 11/26/24 Rx carvedilol 25 mg tablet 25 mg PO BID #180 tabs 08/1811/25/24 Rx losartan 50 mg tablet 50 mg PO QHS #90 tabs 11/25/24 Rx pravastatin 20 mg tablet 20 mg PO QHS #90 tabs 11/25/24 Rx albuterol sulfate 90 mcg/actuation 2 puff inhalation Q 6H PRN wheezing 10/20/24 11/22/24 History aerosol inhaler (Ventolin HFA) pantoprazole 40 mg tablet,delayed 40 mg PO QDAY #60 ta bs 11/11/24 11/25/24 Rx release albuterol sulfate 2.5 mg/3 mL 2.5 mg inhalation TID LA N 11/24/24 Unknown History (0.083 %) solution for nebulization shortness of breat h or wheezing Allergy/AdvReac Type Severity Reaction Status Date / Time cantaloupe Allergy Angioedema Verified 11/26/24 13:08 Sulfa (Sulfonamide Allergy Hives Verified 11/26/24 13:08 Antibiotics) diltiazem AdvReac Intermediate Hypotension, Verified 11/26/24 13:08 lightheaded and dizzy levofloxacin (From Levaquin) AdvReac Intermediate Hives Verified 11/26/24 13:08 Family History Mother CAD (coronary artery disease) stents Hypertension Vertigo Pacemaker Enlarged heart Father Cancer prostate Sister Sjogrens syndrome Grandmother Heart disease Grandfather Heart disease Uncle Heart disease Enlarged heart Surgical History History of cardiac catheterization Stented coronary artery (~12/27/22) Hx of sinus surgery Hx of bilateral cataract extraction Hx of tonsillectomy Hx of hysterectomy Hx of dilation and curettage Social History Smoking Status: Never smoker alcohol intake: current alcohol intake frequency: holidays/special occasions only substance use type: does not use caffeine: Yes Type: coffee Number of servings: 1 Review of Systems (Anesthesia) ROS Narrative System reviewed and no additional complaints, except as documented.
--- NOTE | 2024-11-26 13:45 | COLBX_PTH ---
PATIENT: VIVI ANAND LOC: EN U#:[id number] AGE/SX: 59/F ROOM: RE11/26/[address]: Dr. Mike Daley DO : 1965 BED: DIS: 11/26/2024 SPEC #: [id number] RECD: 11/27/24 08:00 STATUS: MALOU RAMACHANDRAN #: [id number] CARISA: 11/26/24 13:[address]: Mike Daley DEPT: SURGICAL PATHOLOGY RECD BY: Kelvin Meehan ENTERED: 11/27/24 10:06 SP TYPE: COLON BX LUCIANO DR: Dr. Opal Bernal MD Tissues: A - Ileum, NOS B - COLON BIOPSY Procedures: Trichrome (control) Special Stain Group I Surgery Specimen Level IV HEADER OPERATION: Colonoscopy and biopsy PRE-OP DIAGNOSIS: Fatigue, nausea TISSUE SUBMITTED: A- Terminal ileum biopsy, B- Random colon biopsy MICROSCOPIC DIAGNOSIS A. Terminal ileum, biopsy: - No specific pathologic change. B. Colon, random, biopsy: - Mild lamina propria edema without significant crypt distortion - see note. - Negative for intraepithelial lymphocytosis. - Trichrome stain is negative for thickening of the subepithelial collagen table. Note: The histologic change is minimal and may reflect bowel prep artifact. Diagnostic histologic features of microscopic colitis are not demonstrated. MICROSCOPIC DESCRIPTION Slides are reviewed. All matched controls reacted appropriately. These tests were developed and their performance characteristics determined by [facility]. They may not have been cleared or approved by the U.S. Food and Drug Administration. The FDA has determined that such clearance or approval is not necessary. The above immunohistochemical/dualISH markers are reviewed by the Pathologist. GROSS DESCRIPTION A. Received in fixative is one container labeled with the patient's name and designated "Terminal ileum biopsy." The specimen consists of one irregular fragment of light glaser soft tissue that measures 0.5 cm. The specimen is totally submitted in one cassette. B. Received in fixative is one container labeled with the patient's name and designated "Random colon biopsy." The specimen consists of three irregular fragments of light glaser soft tissue that in aggregate measure 0.3 to 0.6 cm. The specimen is totally submitted in one cassette. MI 11/27/2024 CPT:14597r7,35419
--- NOTE | 2024-11-26 14:27 | PCM.POST.ANE ---
Anesthesia: Postop Eval I Current Vital Signs Temperature: 97.6 F Pulse Rate: 67 Blood Pressure: 94/50 Respiratory Rate: 16 Pulse Ox: 97 Oxygen Delivery Method: Room Air Assessment Airway patent: Yes Spontaneous unlabored respirations: Yes Mental status: Awake and Calm nausea: No Vomiting: No Anesthesia Complication: No Fluid Hydration Crystalloid volume administer (ml): 500 Total IV fluid infused: 500 Progress Note Anesthesia document: Postop Eval 1 completed: Yes
--- NOTE | 2024-11-26 14:28 | OP.COLON_ITS ---
Patient Name: Vikki Holland Procedure Date: 11/26/2024 1:07 PM Date of : 1965 Age: 59 Procedure: Colonoscopy Indications: Screening for colorectal malignant neoplasm Providers: Mike Daley DO Referring MD: Opal Bernal Medicines: Monitored Anesthesia Care Patient Profile: This is a 59 year old female. Refer to note in patient chart for documentation of history and physical. Last Colonoscopy: more than 10 years ago. Complications: No immediate complications. Procedure: Pre-Anesthesia Assessment: - Prior to the procedure, a History and Physical was performed, and patient medications and allergies were reviewed. The patient is competent. The risks and benefits of the procedure and the sedation options and risks were discussed with the patient. All questions were answered and informed consent was obtained. Patient identification and proposed procedure were verified by the physician in the pre-procedure area. Mental Status Examination: alert and oriented. Airway Examination: normal oropharyngeal airway and neck mobility. Respiratory Examination: clear to auscultation. CV Examination: normal. Prophylactic Antibiotics: The patient does not require prophylactic antibiotics. Prior Anticoagulants: The patient has taken no anticoagulant or antiplatelet agents. ASA Grade Assessment: II - A patient with mild systemic disease. After reviewing the risks and benefits, the patient was deemed in satisfactory condition to undergo the procedure. The anesthesia plan was to use monitored anesthesia care (MAC). Immediately prior to administration of medications, the patient was re-assessed for adequacy to receive sedatives. The heart rate, respiratory rate, oxygen saturations, blood pressure, adequacy of pulmonary ventilation, and response to care were monitored throughout the procedure. The physical status of the patient was re-assessed after the procedure. After I obtained informed consent, the scope was passed under direct vision. Throughout the procedure, the patient's blood pressure, pulse, and oxygen saturations were monitored continuously. The Colonoscope was introduced through the anus and advanced to the terminal ileum. The colonoscopy was performed without difficulty. Scope In: 1:58:58 PM Scope Withdrawal Time 0 hours 13 minutes 56 seconds Scope Out: 2:16:35 PM Total Procedure Duration Time 0 hours 17 minutes 37 seconds Findings: The perianal and digital rectal examinations were normal. A few small-mouthed diverticula were found in the recto-sigmoid colon and sigmoid colon. An area of mildly congested mucosa was found in the recto-sigmoid colon, in the descending colon and in the ascending colon. Biopsies were taken with a cold forceps for histology. Verification of patient identification for the specimen was done. Estimated blood loss was minimal. The terminal ileum appeared normal. Biopsies were taken with a cold forceps for histology. Verification of patient identification for the specimen was done. Estimated blood loss was minimal. Retroflexion was not performed due to a very small rectum. Impression: - Diverticulosis in the recto-sigmoid colon and in the sigmoid colon. - Congested mucosa in the recto-sigmoid colon, in the descending colon and in the ascending colon. Biopsied. - The examined portion of the ileum was normal. Biopsied. Recommendation: - Discharge patient to home. - Resume previous diet. - Continue present medications. - Await pathology results. - Repeat colonoscopy in 10 years for screening purposes. Procedure Code(s): --- Professional --- 88840, Colonoscopy, flexible; with biopsy, single or multiple CPT copyright 2021 [employer]. All rights reserved. The codes documented in this report are preliminary and upon truss maker review may be revised to meet current compliance requirements. Mike Daley DO 11/26/2024 2:27:55 PM This report has been signed electronically. Number of Addenda: 0 Note Initiated On: 11/26/2024 1:07 PM
--- NOTE | 2024-11-26 14:28 | OP.CCLET_ITS ---
11/26/2024 Opal Bernal [address] [place] [address] Re : Colonoscopy procedure for Vikki Holland Dear Dr. Bernal This procedure was performed on Tuesday, November 26, 2024. My impressions and recommendations are as follows: Impressions : - Diverticulosis in the recto-sigmoid colon and in the sigmoid colon. - Congested mucosa in the recto-sigmoid colon, in the descending colon and in the ascending colon. Biopsied. - The examined portion of the ileum was normal. Biopsied. Recommendations : - Discharge patient to home. - Resume previous diet. - Continue present medications. - Await pathology results. - Repeat colonoscopy in 10 years for screening purposes. My findings are described in the full procedure note, which is enclosed. If I can be of further assistance, please feel free to contact me at . Sincerely, Mike Daley, 11/26/2024 2:27:55 PM This report has been signed electronically.
--- NOTE | 2024-11-26 18:46 | PCM.POSTANE2 ---
Anesthesia Postop Eval I Sum Postop Eval Completion status Anesthesia document: Postop Eval 1 completed: Yes Anesthesia Postop Eval I Summary Anesthesia Postop Eval I Summary: Anesthesia Postop Eval I: Assessment Summary Airway patent Yes 11/26/24 14:28 [email or web address] Spontaneous unlabored Yes 11/26/24 14:28 [email or web address] respirations Mental status Awake,Calm 11/26/24 14:28 [email or web address] nausea No 11/26/24 14:28 [email or web address] Vomiting No 11/26/24 14:28 [email or web address] Anesthesia Postop Eval I: Fluid Summary Crystalloid volume administer 500 11/26/24 14:28 [email or web address] (ml) Colloids volume administered ( ml) Blood Product volume administered (ml) Total IV fluid infused 500 11/26/24 14:28 [email or web address] Anesthesia Postop Eval I: Summary Notes Anesthesia Complication No 11/26/24 14:28 [email or web address] Anesthesia Complication Comment: Post-operative progress note Anesthesia: Postop Eval II Evaluation Mental status: Awake Pain Level: 0 nausea: No Vomiting: No
== END 2024-11-26 15:20 | disposition home or self-care (01) ==
LOC: EN 12:46 → AC 12:52
PROVIDERS: PCP Internal Medicine; Referring Provider Internal Medicine; Visit Provider Internal Medicine Gastroenterology
PROC: 0DJD8ZZ Inspection of Lower Intestinal Tract, Via Natural or Artificial Opening Endoscopic (ICD-10-PCS; CPT 45378; principal; 2024-11-26 13:40)
DX: D64.9 Anemia, unspecified (principal); I48.0 Paroxysmal atrial fibrillation; E11.9 Type 2 diabetes mellitus without complications; K57.30 Diverticulosis of large intestine without perforation or abscess without bleeding; Z79.84 Long term (current) use of oral hypoglycemic drugs; I25.10 Atherosclerotic heart disease of native coronary artery without angina pectoris; E78.5 Hyperlipidemia, unspecified; I10 Essential (primary) hypertension; R53.83 Other fatigue; K21.9 Gastro-esophageal reflux disease without esophagitis; Z79.899 Other long term (current) drug therapy; Z90.710 Acquired absence of both cervix and uterus; J45.909 Unspecified asthma, uncomplicated; Z79.51 Long term (current) use of inhaled steroids; G47.30 Sleep apnea, unspecified; Z99.89 Dependence on other enabling machines and devices; Z79.82 Long term (current) use of aspirin; Z79.02 Long term (current) use of antithrombotics/antiplatelets; F41.9 Anxiety disorder, unspecified; Z95.5 Presence of coronary angioplasty implant and graft; Z98.41 Cataract extraction status, right eye; Z98.42 Cataract extraction status, left eye; K76.0 Fatty (change of) liver, not elsewhere classified; K63.89 Other specified diseases of intestine
CPT/HCPCS: 45380; 82962; 88305; 88312; J2405

== ENCOUNTER → 2024-12-03 | Outpatient (CLI) | payer MEDICAID, SELFPAY ==
[2023-04-18 11:48] VITALS: BMI 32.9
[2024-12-03 17:48] LABS: Hematocrit 37.9 % (37-47); Hemoglobin 12.6 g/dL (12.0-15.0); Immature Granulocytes Count 0.010 X10^3/uL (0.0-0.0); Mean Corp Hgb Conc 33.2 g/dL (32-36); Mean Corpuscular Volume 96.4 fL (81-99); Mean Platelet Vol. 11.4 fl (6.2-12.0); NRBC Flagged by Analyzer 0 % (0-5); Platelet Count 183 K/mm3 (150-450); RBC Distribution Width CV 13.7 % (11.6-14.6); RBC Distribution Width SD 48.7 fl (35.1-43.9); Red Blood Count 3.93 M/mm3 (4.2-5.4); White Blood Count 5.5 K/mm3 (4.4-11.0)
== END | disposition home or self-care (01) ==
LOC: MTLAB 14:19
PROVIDERS: PCP Internal Medicine; Referring Provider Student in an Organized Health Care Education/Training Program; Visit Provider Student in an Organized Health Care Education/Training Program
DX: D64.9 Anemia, unspecified (principal)
CPT/HCPCS: 36415; 85025

== ENCOUNTER → 2024-12-25 | Outpatient (CLI) | payer MEDICAID, SELFPAY ==
[2023-04-18 11:48] VITALS: BMI 32.9
[2024-12-25 10:41] LABS: Cholesterol 145 mg/dL (<=200); Low Density Lipoprotein Calc. 65 mg/dL; Triglycerides 58 mg/dL; Very Low Density Lipoprotein 12 mg/dL (5-40); cholesterol:hdl ratio screen 2.13
[2024-12-25 10:43] LABS: AST(SGOT) 46 U/L (<=31); Alanine Aminotransfer ALT/SGPT 51 U/L (<=34); Albumin, Serum 4.4 g/dL (3.5-5.0); Alkaline Phosphatase 97 U/L (35-104); Bilirubin, Direct 0.12 mg/dL (0.00-0.30); Globulin 2.9 g/dL (2.2-4.2)
== END | disposition home or self-care (01) ==
LOC: LAB 09:25
PROVIDERS: PCP Internal Medicine; Referring Provider Nurse Practitioner Family; Visit Provider Nurse Practitioner Family
DX: E78.00 Pure hypercholesterolemia, unspecified (principal)
CPT/HCPCS: 36415; 80061; 80076

== ENCOUNTER 2025-02-12 22:44 | Emergency (ER) | payer MEDICAID, SELFPAY ==
[2023-04-18 11:48] VITALS: BMI 32.9
[2025-02-12 22:45] VITALS: BP 172/104; PULSE 74; RESP 18; TEMP 36.8; O2SAT 100; BMI 37.4
[2025-02-12 23:44] VITALS: BP 165/77; PULSE 71; O2SAT 100
[2025-02-12 23:49] VITALS: BP 165/77; PULSE 71; RESP 18; TEMP 36.8; O2SAT 100
[2025-02-13] VITALS: BP 150/81; PULSE 72; O2SAT 100
--- NOTE | 2025-02-13 00:53 | EDS_ITS ---
HPI History of Present Illness Chief Complaint: Allergic Reaction Detail of Chief Complaint: Throat feels scratchy and swelling after having nessa. Informant: patient Onset/Context/Timing Onset: Hours Context: Sudden Onset Timing: Continuous Quality: Throat swelling and scratchy Location: Upper airway Current Severity: Mild Maximum Severity: Moderate Worsened by: Possible reaction to nessa Relieved by: Better after 2 25 mg Benadryl capsules Associated Symptoms Associated Symptoms: None Narrative Narrative: Patient is a 59-year-old woman who has history to cantaloupes. She has had mangoes before without reaction. She had a mangle today when she developed scratchy throat and swelling. He took 2 Benadryl capsules prior to arrival. She states her symptoms are getting better. Patient denies chest pain, shortness of breath difficulty breathing. Patient denies nausea or vomiting. Patient Nuys orthostatic symptoms. Patient denies rash. Patient denies change in voice. Patient Nuys drooling. Prior similar symptoms: No Recent Illness/Hospitalization: No PFSH PFSH Medical History Accidental fall Hypertension History of echocardiogram Hyponatremia MRSA infection Wears glasses Anxiety Degenerative disc disease Gastric reflux History of edema Non-smoker Sleep apnea CPAP (continuous positive airway pressure) dependence Asthma History of stress test Cardiology follow-up encounter COVID (~04/2023) Paroxysmal atrial fibrillation Atrial fibrillation by electrocardiography Dyslipidemia Dyspnea Abnormal bruising Srini's disease SOB (shortness of breath) on exertion Coronary artery disease Abnormal exercise tolerance test Chest pain Palpitations Abnormal finding on EKG HSV-2 infection Cervicalgia Mixed connective tissue disease Interstitial lung disease Raynaud disease Essential hypertension Lupus Graves disease Fibromyalgia Diabetes Home Medications ?Medication ?Instructions ?Recorded ?Last Taken ?Type fluticasone propionate 50 2 spray NASAL DAILY PRN lauro rgy 05/15/20 Unknown History mcg/actuation nasal symptoms spray,suspension levalbuterol tartrate 45 15 g IH Q4H PRN PRN Nata s Of 05/15/20 Unknown History mcg/actuation aerosol inhaler Breath montelukast 10 mg tablet 10 mg PO DAILY 05/15/2011/05 History epinephrine 0.3 mg/0.3 mL 0.3 mg IM ONCE 08/04/22 Unkn own History injection, auto-injector metformin 500 mg tablet,extended 1,000 mg PO BID 08/0811/25/24 History release 24 hr nitroglycerin 0.4 mg sublingual 0.4 mg sublingual Q5M PRN 12/27/22 Unknown Rx tablet Cardiac/Chest Pain #15 tabs bupropion HCl 150 mg 24 hr tablet, 150 mg PO QAM 02/1205/14/24 History extended release aspirin 81 mg tablet,delayed 81 mg PO DAILY #90 tabs 1 06/16/23 11/23/24 Rx release (Adult Aspirin Regimen) ferrous sulfate 325 mg (65 mg 325 mg PO BID 04/15/24 U nknown History iron) tablet (FeroSul) hydroxychloroquine 200 mg tablet 200 mg PO BID 4 11/25/24 History citalopram 40 mg tablet 40 mg PO DAILY 05/10/2411/05 History amlodipine 5 mg tablet 5 mg PO QDAY #90 tabs 11/26/24 Rx carvedilol 25 mg tablet 25 mg PO BID #180 tabs 08/1811/25/24 Rx losartan 50 mg tablet 50 mg PO QHS #90 tabs 11/25/24 Rx pravastatin 20 mg tablet 20 mg PO QHS #90 tabs 11/25/24 Rx albuterol sulfate 90 mcg/actuation 2 puff inhalation Q 6H PRN wheezing 10/20/24 11/22/24 History aerosol inhaler (Ventolin HFA) pantoprazole 40 mg tablet,delayed 40 mg PO QDAY #60 ta bs 11/11/24 11/25/24 Rx release
--- NOTE | 2025-02-13 00:53 | EX.ED.DYSGE1 ---
HPI History of Present Illness Chief Complaint: Allergic Reaction Detail of Chief Complaint: Throat feels scratchy and swelling after having nessa. Informant: patient Onset/Context/Timing Onset: Hours Context: Sudden Onset Timing: Continuous Quality: Throat swelling and scratchy Location: Upper airway Current Severity: Mild Maximum Severity: Moderate Worsened by: Possible reaction to nessa Relieved by: Better after 2 25 mg Benadryl capsules Associated Symptoms Associated Symptoms: None Narrative Narrative: Patient is a 59-year-old woman who [facility] She has had mangoes before without reaction. She had a mangle today when she developed scratchy throat and swelling. He took 2 Benadryl capsules prior to arrival. She states her symptoms are getting better. Patient denies chest pain, shortness of breath difficulty breathing. Patient denies nausea or vomiting. Patient [place] orthostatic symptoms. Patient denies rash. Patient denies change in voice. Patient [place] drooling. Prior similar symptoms: No Recent Illness/Hospitalization: No PFSH PFSH Medical History Accidental fall Hypertension History of echocardiogram Hyponatremia MRSA infection Wears glasses Anxiety Degenerative disc disease Gastric reflux History of edema Non-smoker Sleep apnea CPAP (continuous positive airway pressure) dependence Asthma History of stress test Cardiology follow-up encounter COVID (~04/2023) Paroxysmal atrial fibrillation Atrial fibrillation by electrocardiography Dyslipidemia Dyspnea Abnormal bruising Srini's disease SOB (shortness of breath) on exertion Coronary artery disease Abnormal exercise tolerance test Chest pain Palpitations Abnormal finding on EKG HSV-2 infection Cervicalgia Mixed connective tissue disease Interstitial lung disease Raynaud disease Essential hypertension Lupus Graves disease Fibromyalgia Diabetes Home Medications ?Medication ?Instructions ?Recorded ?Last Taken ?Type fluticasone propionate 50 2 spray NASAL DAILY PRN allergy 05/15/20 Unknown History mcg/actuation nasal symptoms spray,suspension levalbuterol tartrate 45 15 g IH Q4H PRN PRN Shortness Of 05/15/20 Unknown History mcg/actuation aerosol inhaler Breath montelukast 10 mg tablet 10 mg PO DAILY 05/15/20 11/25/24 History epinephrine 0.3 mg/0.3 mL 0.3 mg IM ONCE 08/04/22 Unknown History injection, auto-injector metformin 500 mg tablet,extended 1,000 mg PO BID 08/08/22 11/25/24 History release 24 hr nitroglycerin 0.4 mg sublingual 0.4 mg sublingual Q5M PRN 12/27/22 Unknown Rx tablet Cardiac/Chest Pain #15 tabs bupropion HCl 150 mg 24 hr tablet, 150 mg PO QAM 02/13/24 05/14/24 History extended release aspirin 81 mg tablet,delayed 81 mg PO DAILY #90 tabs 04/15/24 11/23/24 Rx release (Adult Aspirin Regimen) ferrous sulfate 325 mg (65 mg 325 mg PO BID 04/15/24 Unknown History iron) tablet (FeroSul) hydroxychloroquine 200 mg tablet 200 mg PO BID 04/15/24 11/25/24 History citalopram 40 mg tablet 40 mg PO DAILY 05/10/24 11/25/24 History amlodipine 5 mg tablet 5 mg PO QDAY #90 tabs 07/28/24 11/26/24 Rx carvedilol 25 mg tablet 25 mg PO BID #180 tabs 08/18/24 11/25/24 Rx losartan 50 mg tablet 50 mg PO QHS #90 tabs 09/04/24 11/25/24 Rx pravastatin 20 mg tablet 20 mg PO QHS #90 tabs 09/12/24 11/25/24 Rx albuterol sulfate 90 mcg/actuation 2 puff inhalation Q6H PRN wheezing 10/20/24 11/22/24 History aerosol inhaler (Ventolin HFA) pantoprazole 40 mg tablet,delayed 40 mg PO QDAY #60 tabs 11/11/24 11/25/24 Rx release albuterol sulfate 2.5 mg/3 mL 2.5 mg inhalation TID PRN 11/24/24 Unknown History (0.083 %) solution for nebulization shortness of breath or wheezing apixaban 5 mg tablet (Eliquis) 5 mg PO BID #60 tabs 12/01/24 Unknown Rx isosorbide mononitrate 30 mg 30 mg PO QAM #90 tabs 12/01/24 Unknown Rx tablet,extended release 24 hr famotidine 20 mg tablet (Pepcid) 20 mg PO BID #7 tabs 02/13/25 Unknown Rx Allergy/AdvReac Type Severity Reaction Status Date / Time cantaloupe Allergy Angioedema Verified 02/12/25 22:47 Sulfa (Sulfonamide Allergy Hives Verified 02/12/25 22:47 Antibiotics) diltiazem AdvReac Intermediate Hypotension, Verified 02/12/25 22:47 lightheaded and dizzy levofloxacin (From Levaquin) AdvReac Intermediate Hives Verified 02/12/25 22:47 Family History Mother CAD (coronary artery disease) stents Hypertension Vertigo Pacemaker Enlarged heart Father Cancer prostate Sister Sjogrens syndrome Grandmother Heart disease Grandfather Heart disease Uncle Heart disease Enlarged heart Surgical History History of cardiac catheterization Stented coronary artery (~12/27/22) Hx of sinus surgery Hx of bilateral cataract extraction Hx of tonsillectomy Hx of hysterectomy Hx of dilation and curettage Social History Smoking Status: Never smoker alcohol intake: current alcohol intake frequency: holidays/special occasions only substance use type: does not use caffeine: Yes Type: coffee Number of servings: 1 ROS ROS ED Constitutional Constitutional ED: Denies chills or fever(s) Eyes Eyes: Denies blurry vision or change in vision ENT ENT ED: Reports other Details: Per HPI narrative ; Denies rhinorrhea or sore throat Cardiovascular Cardiovascular: Denies chest pain or palpitations Respiratory/Chest Respiratory/Chest: Denies cough or dyspnea Gastrointestinal Gastrointestinal: Denies abdominal pain, nausea or vomiting Integumentary Denies rash Endocrine Endocrinology: Denies cold intolerance or heat intolerance Hematologic/Lymphatic Hematologic/Lymphatic: Reports systems reviewed and no addt'l complaints, except as documented Allergic/Immunologic Allergic/Immunologic ED: Reports mouth swelling; Denies tongue swelling or urticaria EXAM Physical Exam Const Vital Signs: 02/12/25 22:45 02/12/25 23:44 02/12/25 23:49 Temperature 98.2 F 98.2 F Temperature Source Oral Pulse Rate 74 71 71 Respiratory Rate 18 18 Blood Pressure 172/104 H 165/77 H 165/77 H Blood Pressure Mean 126 106 106 Pulse Ox 100 100 100 Oxygen Delivery Method Room Air Room Air 02/13/25 00:00 Temperature Temperature Source Pulse Rate 72 Respiratory Rate Blood Pressure 150/81 H Blood Pressure Mean 104 Pulse Ox 100 Oxygen Delivery Method Room Air Positive well nourished and well developed Constitutional Narrative: Patient slightly anxious. Patient's BMI is 37.5. General Appearance ED: well developed HEENT Reports moist mucous membranes HEENT Narrative: Uvula is not swollen. There is no swelling of the soft palate, tongue or lips. Eyes PERRL and EOMs intact bilaterally Eyes Narrative: Patient has mild proptosis General Eye ED: Negative for pale conjunctiva or scleral icterus Neck no lymphadenopathy, supple and no JVD Neck Narrative: Trachea is midline. There is no inspiratory expiratory stridor. Resp normal respiratory effort and clear to auscultation bilaterally Cardio regular rate, regular rhythm, S1 normal heart sound, S2 normal heart sound and no murmurs Extremity normal to inspection General Extremety ED: Negative for edema or tenderness General Extremity: Negative for edema Neuro oriented x3 and CN's II-XII intact bilaterally Sensorium / Orientation: alert Skin no rashes or lesions noted, no wounds and skin turgor normal MDM MDM MDM Narrative Medical decision making narrative: Since patient is improving after taking Benadryl we will treat with H2 lorenzo. Since she is diabetic we will not treat with steroids and there is no indication at this time for epinephrine. She was administered Pepcid p.o. She was observed for 1.5 hours. Her symptoms had resolved. She was discharged to home with prescription for Pepcid and follow-up with her doctor for allergy testing. She was instructed not to have mangoes until she is tested. Treatment and Re-Evaluation :: Patient was reassessed at 0045. Since patient had resolution of her symptoms and no new finding she was discharged to home Discharge Plan Triage Chief Complaint: Allergic Reaction ED Provider: Sami Rivera Dx/Rx/DC Orders Clinical Impression: Allergic reaction to food, Essential hypertension, Graves disease, Diabetes Instructions: ED General Allergic Reactions Prescriptions: New famotidine [Pepcid] 20 mg tablet 20 mg PO BID Qty: 7 0RF No Action epinephrine 0.3 mg/0.3 mL auto-injector 0.3 mg IM ONCE Rx Instructions: as a single dose; may repeat once ferrous sulfate [FeroSul] 325 mg (65 mg iron) tablet 325 mg PO BID Patient Comments: INSTRUCTED TO NOT TAKE ANYMORE AFTER OUR PHONE CALL hydroxychloroquine 200 mg tablet 200 mg PO BID aspirin [Adult Aspirin Regimen] 81 mg tablet,delayed release (DR/EC) 81 mg PO DAILY Qty: 90 3RF bupropion HCl 150 mg tablet extended release 24 hr 150 mg PO QAM albuterol sulfate [Ventolin HFA] 90 mcg/actuation HFA aerosol inhaler 2 puff inhalation Q6H PRN (Reason: wheezing) fluticasone propionate 1 SPRAY spray,suspension 2 spray NASAL DAILY PRN (Reason: allergy symptoms) montelukast 10 MG tablet 10 mg PO DAILY levalbuterol tartrate 15 GM HFA aerosol inhaler 15 g IH Q4H PRN PRN (Reason: Shortness Of Breath) metformin 500 mg tablet extended release 24 hr 1,000 mg PO BID nitroglycerin 0.4 mg Tablet, Sublingual 0.4 mg sublingual Q5M PRN (Reason: Cardiac/Chest Pain) Qty: 15 6RF citalopram 40 mg tablet 40 mg PO DAILY albuterol sulfate 2.5 mg /3 mL (0.083 %) solution for nebulization 2.5 mg inhalation TID PRN (Reason: shortness of breath or wheezing) amlodipine 5 mg tablet 5 mg PO QDAY Qty: 90 3RF carvedilol 25 mg tablet 25 mg PO BID Qty: 180 3RF losartan 50 mg tablet 50 mg PO QHS Qty: 90 3RF pravastatin 20 mg tablet 20 mg PO QHS Qty: 90 4RF pantoprazole 40 mg tablet,delayed release (DR/EC) 40 mg PO QDAY Qty: 60 2RF Eliquis 5 mg tablet 5 mg PO BID Qty: 60 11RF isosorbide mononitrate 30 mg tablet extended release 24 hr 30 mg PO QAM Qty: 90 3RF Primary Care Provider: Opal Bernal Referrals: Opal Bernal MD [Primary Care Provider, Internal Medicine] - 3-5 Days Activity Restrictions/Additional Instructions: 1. Take 1 Benadryl capsule every 6 hours for next 3 days. 2. Take Pepcid as instructed until gone. 3. Recommend not eating mangoes. 4. Recommend allergy testing Print Language: [place] Disposition Disposition: Home, Self Care
[2025-02-13 00:56] VITALS: BP 158/92
== END 2025-02-13 00:58 | disposition home or self-care (01) ==
PROVIDERS: Emergency Provider Emergency Medicine; PCP Internal Medicine; Visit Provider Emergency Medicine
DX: T78.19XA Other adverse food reactions, not elsewhere classified, initial encounter (principal); I48.0 Paroxysmal atrial fibrillation; E11.9 Type 2 diabetes mellitus without complications; E78.5 Hyperlipidemia, unspecified; Z90.710 Acquired absence of both cervix and uterus; I10 Essential (primary) hypertension; I25.10 Atherosclerotic heart disease of native coronary artery without angina pectoris; E05.00 Thyrotoxicosis with diffuse goiter without thyrotoxic crisis or storm; J45.909 Unspecified asthma, uncomplicated; Z79.51 Long term (current) use of inhaled steroids; Z79.84 Long term (current) use of oral hypoglycemic drugs; F41.9 Anxiety disorder, unspecified; Z79.899 Other long term (current) drug therapy; Z79.82 Long term (current) use of aspirin; Z79.01 Long term (current) use of anticoagulants; K21.9 Gastro-esophageal reflux disease without esophagitis; Z95.5 Presence of coronary angioplasty implant and graft; Z98.41 Cataract extraction status, right eye; Z98.42 Cataract extraction status, left eye
CPT/HCPCS: 99282

== ENCOUNTER → 2025-03-09 | Outpatient (CLI) | payer MEDICAID, SELFPAY ==
[2023-04-18 11:48] VITALS: BMI 32.9
[2025-03-09 14:08] LABS: Mucous, Urine 0 SEEN /hpf (<or=2+); Red Blood Cells-Urine 0 SEEN /hpf (0-5)
[2025-03-09 18:41] LABS: AST(SGOT) 34 U/L (<=31); Alanine Aminotransfer ALT/SGPT 40 U/L (<=34); Albumin, Serum 4.2 g/dL (3.5-5.0); Alkaline Phosphatase 92 U/L (35-104); Bilirubin, Direct 0.15 mg/dL (0.00-0.30); CRP 8.18 mg/L (0.0-3.0); Globulin 3.0 g/dL (2.2-4.2)
[2025-03-09 18:44] LABS: Hematocrit 37.3 % (37-47); Hemoglobin 12.5 g/dL (12.0-15.0); Immature Granulocytes Count 0.020 X10^3/uL (0.0-0.0); Mean Corp Hgb Conc 33.5 g/dL (32-36); Mean Corpuscular Volume 94.9 fL (81-99); Mean Platelet Vol. 11.5 fl (6.2-12.0); NRBC Flagged by Analyzer 0 % (0-5); Platelet Count 190 K/mm3 (150-450); RBC Distribution Width CV 13.2 % (11.6-14.6); RBC Distribution Width SD 45.6 fl (35.1-43.9); Red Blood Count 3.93 M/mm3 (4.2-5.4); White Blood Count 5.2 K/mm3 (4.4-11.0)
[2025-03-09 18:53] LABS: Color, Urine Yellow (Yellow); Glucose, Dipstick Normal (Normal); Ketone-Dipstick 5 mg/dl (Negative); Leukocyte Esterase-Dipstick Negative /ul (Negative); Nitrite-Dipstick Negative (Negative); Occult Blood-Urine Negative /ul (Negative); Protein-Dipstick 30 mg/dl (Negative); Specific Gravity, Urine 1.020 (1.002-1.030); Urine Bilirubin Dipstick Negative (Negative)
[2025-03-09 22:58] LABS: Squamous Epithelial Cells - UA 5-10 SEEN /hpf (5-10)
== END | disposition home or self-care (01) ==
LOC: MTLAB 14:03
PROVIDERS: PCP Internal Medicine
DX: M35.9 Systemic involvement of connective tissue, unspecified (principal)
CPT/HCPCS: 36415; 80076; 81001; 82565; 85025; 85652; 86140; 86160

== ENCOUNTER → 2025-03-14 | Outpatient (CLI) | payer MEDICAID, SELFPAY ==
[2023-04-18 11:48] VITALS: BMI 32.9
== END | disposition home or self-care (01) ==
LOC: LABSPEC 09:20
PROVIDERS: PCP Internal Medicine; Referring Provider Internal Medicine Pulmonary Disease; Visit Provider Internal Medicine Pulmonary Disease
DX: J47.9 Bronchiectasis, uncomplicated (principal)
CPT/HCPCS: 87070; 87205

== ENCOUNTER 2025-04-08 13:50 | Emergency (ER) | payer MEDICAID, SELFPAY ==
[2023-04-18 11:48] VITALS: BMI 32.9
[2025-04-08] VITALS (13 sets, daily range): BP systolic 110–163; BP diastolic 76–97; PULSE 66–90; RESP 16–29; TEMP 36.7; O2SAT 96–100; BMI 37.2
--- NOTE | 2025-04-08 13:55 | EKG12_ITS ---
Test Reason : CHST PAIN Blood Pressure : */* mmHG Vent. Rate : 79 BPM Atrial Rate : 79 BPM P-R Int : 152 ms QRS Dur : 74 ms QT Int : 404 ms P-R-T Axes : 59 9 42 degrees QTcB Int : 463 ms Normal sinus rhythm Normal ECG Confirmed by LINCOLN KOENIG, JASMYNE ([id number]), graphics editor NORMA TORRES ([id number]) on 04/10/2025 9:01:03 AM Referred By: Confirmed By: JASMYNE STARK MD
[2025-04-08 14:08] LABS: Hematocrit 37.9 % (37-47); Hemoglobin 12.3 g/dL (12.0-15.0); Immature Granulocytes Count 0.020 X10^3/uL (0.0-0.0); Mean Corp Hgb Conc 32.5 g/dL (32-36); Mean Corpuscular Volume 97.4 fL (81-99); Mean Platelet Vol. 10.6 fl (6.2-12.0); NRBC Flagged by Analyzer 0 % (0-5); Platelet Count 164 K/mm3 (150-450); RBC Distribution Width CV 13.9 % (11.6-14.6); RBC Distribution Width SD 49.5 fl (35.1-43.9); Red Blood Count 3.89 M/mm3 (4.2-5.4); White Blood Count 5.2 K/mm3 (4.4-11.0)
--- NOTE | 2025-04-08 14:09 | RAD_ITS ---
PROCEDURE: CHEST PA AND LATERAL 04/08/2025 REASON FOR EXAM: CHEST PAIN TECHNIQUE: Procedure Code: RADCXR Modality: DX Procedure: CHEST PA AND LATERAL COMPARISON: 09/17/2024 FINDINGS: Diffuse reticular opacities may reflect underlying chronic lung disease, atypical pneumonia, and/or mild pulmonary edema. No large focal consolidations. No pleural effusion or pneumothorax. Cardiac silhouette is unchanged. No acute fractures. RAD/Chest PA and Lateral IMPRESSION: Diffuse reticular opacities may reflect underlying chronic lung disease, atypic al pneumonia, and/or mild pulmonary edema. No large focal consolidations. Reading Location: [id number]
[2025-04-08 14:28] LABS: Anion Gap 13 (5-15); BUN 18 mg/dL (4-19); BUN/Creat Ratio 17.9 RATIO (10-20); Calcium,Total 9.2 mg/dL (7.6-11.0); Carbon Dioxide 22.9 mmol/L (21.0-32.0); Chloride 99 mmol/L (98-108); Estimated Creatinine Clearance 67.17 ml/min (50-250); Glucose 90 mg/dL (70-99); Potassium 4.6 mmol/L (3.3-5.1); Troponin T High Sensitivity 7 ng/L (<=14)
[2025-04-08 16:56] LABS: Troponin T High Sens 2 HR 7 ng/L (<=14)
--- NOTE | 2025-04-08 17:06 | ED.VIS.CHEST ---
HPI History of Present Illness Chief Complaint: Chest Pain Narrative Narrative: Patient is a 59-year-old female presenting to the emergency department for left-sided chest pain that radiated into her left shoulder. Patient has a past medical history of paroxysmal A-fib, interstitial lung disease, A-fib, CAD, cardiac stents placed in December 2022, diabetes and hypertension. Patient states that for multiple weeks she has had intermittent left-sided chest pain that is random. Not associated with activity. She states that today at 10 AM it started and was constant. She endorses intermittent shortness of breath as well. Endorses a dry cough. States this is fairly chronic for her since December when she had 3 months of pneumonia. She denies fever, chills, diaphoresis, nausea, vomiting, abdominal pain, lower extremity edema. She follows with Dr. Manzano for cardiology. She is on anticoagulation, Eliquis, and is compliant. She denies history of PE or DVT. She denies any recent travel, hospitalizations or surgeries. She is not on any hormone therapy or OCPs. [facility] Medical History Accidental fall Hypertension History of echocardiogram Hyponatremia MRSA infection Wears glasses Anxiety Degenerative disc disease Gastric reflux History of edema Non-smoker Sleep apnea CPAP (continuous positive airway pressure) dependence Asthma History of stress test Cardiology follow-up encounter COVID (~04/2023) Paroxysmal atrial fibrillation Atrial fibrillation by electrocardiography Dyslipidemia Dyspnea Abnormal bruising Srini's disease SOB (shortness of breath) on exertion Coronary artery disease Abnormal exercise tolerance test Chest pain Palpitations Abnormal finding on EKG HSV-2 infection Cervicalgia Mixed connective tissue disease Interstitial lung disease Raynaud disease Essential hypertension Lupus Graves disease Fibromyalgia Diabetes Home Medications ?Medication ?Instructions ?Recorded ?Last Taken ?Type fluticasone propionate 50 2 spray NASAL DAILY PRN allergy 05/15/20 Unknown History mcg/actuation nasal symptoms spray,suspension levalbuterol tartrate 45 15 g IH Q4H PRN PRN Shortness Of 05/15/20 Unknown History mcg/actuation aerosol inhaler Breath montelukast 10 mg tablet 10 mg PO DAILY 05/15/20 11/25/24 History epinephrine 0.3 mg/0.3 mL 0.3 mg IM ONCE 08/04/22 Unknown History injection, auto-injector metformin 500 mg tablet,extended 1,000 mg PO BID 08/08/22 11/25/24 History release 24 hr nitroglycerin 0.4 mg sublingual 0.4 mg sublingual Q5M PRN 12/27/22 Unknown Rx tablet Cardiac/Chest Pain #15 tabs bupropion HCl 150 mg 24 hr tablet, 150 mg PO QAM 02/13/24 05/14/24 History extended release aspirin 81 mg tablet,delayed 81 mg PO DAILY #90 tabs 04/15/24 11/23/24 Rx release (Adult Aspirin Regimen) ferrous sulfate 325 mg (65 mg 325 mg PO BID 04/15/24 Unknown History iron) tablet (FeroSul) hydroxychloroquine 200 mg tablet 200 mg PO BID 04/15/24 11/25/24 History citalopram 40 mg tablet 40 mg PO DAILY 05/10/24 11/25/24 History amlodipine 5 mg tablet 5 mg PO QDAY #90 tabs 07/28/24 11/26/24 Rx losartan 50 mg tablet 50 mg PO QHS #90 tabs 09/04/24 11/25/24 Rx pravastatin 20 mg tablet 20 mg PO QHS #90 tabs 09/12/24 11/25/24 Rx albuterol sulfate 90 mcg/actuation 2 puff inhalation Q6H PRN wheezing 10/20/24 11/22/24 History aerosol inhaler (Ventolin HFA) pantoprazole 40 mg tablet,delayed 40 mg PO QDAY #60 tabs 11/11/24 11/25/24 Rx release albuterol sulfate 2.5 mg/3 mL 2.5 mg inhalation TID PRN 11/24/24 Unknown History (0.083 %) solution for nebulization shortness of breath or wheezing apixaban 5 mg tablet (Eliquis) 5 mg PO BID #60 tabs 12/01/24 Unknown Rx isosorbide mononitrate 30 mg 30 mg PO QAM #90 tabs 12/01/24 Unknown Rx tablet,extended release 24 hr famotidine 20 mg tablet (Pepcid) 20 mg PO BID #7 tabs 02/13/25 Unknown Rx carvedilol 25 mg tablet 12.5 mg (1/2 x 25 mg) PO BID #180 03/31/25 Unknown Rx tabs Allergy/AdvReac Type Severity Reaction Status Date / Time nessa Allergy Intermediate swelling Verified 04/08/25 13:52 [email or web address] Allergy Angioedema Verified 04/08/25 13:52 Sulfa (Sulfonamide Allergy Hives Verified 04/08/25 13:52 Antibiotics) diltiazem AdvReac Intermediate Hypotension, Verified 04/08/25 13:52 lightheaded and dizzy levofloxacin (From Levaquin) AdvReac Intermediate Hives Verified 04/08/25 13:52 Family History Mother CAD (coronary artery disease) stents Hypertension Vertigo Pacemaker Enlarged heart Father Cancer prostate Sister Sjogrens syndrome Grandmother Heart disease Grandfather Heart disease Uncle Heart disease Enlarged heart Surgical History History of cardiac catheterization Stented coronary artery (~12/27/22) Hx of sinus surgery Hx of bilateral cataract extraction Hx of tonsillectomy Hx of hysterectomy Hx of dilation and curettage Social History Smoking Status: Never smoker alcohol intake: current alcohol intake frequency: holidays/special occasions only substance use type: does not use caffeine: Yes Type: coffee Number of servings: 1 ROS ROS ED ROS Narrative See HPI EXAM Physical Exam Narrative Exam Narrative: Vital signs: Reviewed General: Alert and oriented x 3. No acute distress. Well-appearing, nontoxic. HEENT: Head is normocephalic and atraumatic, sinuses nontender, pupils equal round and reactive. Nares are patent. Oropharynx and throat exams normal. Neck: Supple without lymphadenopathy nontender Cardiovascular: Regular rate and rhythm, no murmurs. No rubs or gallops. Normal S1 and S2 Respiratory: Clear to auscultation bilaterally. No wheezes, rales, rhonchi Abdominal: Soft and nontender. Normal bowel sounds. No guarding or rebound. Nonsurgical abdomen Extremities: No lower extremity edema. No tenderness. No bruising. Normal range of motion. Normal sensation. Skin: No rash or redness. The rest of the physical exam is unremarkable Const Vital Signs: 04/08/25 13:52 04/08/25 14:40 04/08/25 14:40 Temperature 98.1 F Temperature Source Oral Pulse Rate 90 Respiratory Rate 18 Respiratory Effort Normal Non-Labored Blood Pressure 163/87 H Blood Pressure Mean 112 Pulse Ox 99 Oxygen Delivery Method Room Air Room Air 04/08/25 14:43 04/08/25 15:00 04/08/25 15:15 Temperature Temperature Source Pulse Rate 66 74 75 Respiratory Rate 16 22 H 29 H Respiratory Effort Blood Pressure 131/76 H 131/77 H Blood Pressure Mean 94 92 Pulse Ox 97 96 96 Oxygen Delivery Method Room Air 04/08/25 15:17 04/08/25 15:30 04/08/25 15:45 Temperature Temperature Source Pulse Rate 77 71 72 Respiratory Rate 16 25 H 23 H Respiratory Effort Blood Pressure 131/77 H 110/97 H Blood Pressure Mean 95 104 Pulse Ox 98 97 97 Oxygen Delivery Method 04/08/25 16:00 04/08/25 16:01 04/08/25 16:15 Temperature Temperature Source Pulse Rate 70 70 69 Respiratory Rate 24 H 23 H 20 H Respiratory Effort Blood Pressure 138/87 H Blood Pressure Mean 101 Pulse Ox 99 100 98 Oxygen Delivery Method 04/08/25 16:30 04/08/25 16:45 Temperature Temperature Source Pulse Rate 69 72 Respiratory Rate 25 H 28 H Respiratory Effort Blood Pressure Blood Pressure Mean Pulse Ox 98 100 Oxygen Delivery Method MDM MDM MDM Narrative Medical decision making narrative: Patient is a 59-year-old female presenting to the emergency department for intermittent chest pain and shortness of breath that have occurred for multiple months. It was constant today which prompted her to come in. Patient was seen and examined. Vitals are stable. No tachycardia, pulse of 90. No tachypnea, respirations of 18. Saturating 98% on room air. Differential includes but is not limited to: ACS, pneumonia, less likely CHF, PE, aortic pathology. Patient is on Eliquis and is compliant making PE less likely. She has no significant risk factors. She has no symptoms consistent with CHF and her physical exam is not consistent with this. She describes the chest pain as stabbing, not consistent with aortic pathology. EKG shows normal sinus rhythm with no ischemic changes. No dysrhythmia. Nothing meeting STEMI criteria. CBC with no leukocytosis and a normal hemoglobin. BMP with no significant abnormalities. Troponin and reflex within normal limits and no significant delta change 7. Chest x-ray reviewed by myself, no large focal opacity noted, no widened mediastinum or pneumothorax. Radiology read with diffuse reticular opacities may reflect underlying chronic lung disease, atypical pneumonia, and/or mild pulmonary edema. No large focal consolidations. Appears similar to previous. Patient was reevaluated and updated on the negative workup. She was notified of the chest x-ray findings that appears similar to previous. I do not think she needs treated for an atypical pneumonia. She has no fever, productive cough consistent with this diagnosis. I encouraged her to follow-up with her cone tender to soon as possible. Patient discharged from the Emergency Department. I do not feel that the patient's evaluation reveals any acute reason for admission at this time. I instructed them to either follow-up with their primary care physician or promptly return to the Emergency Department for reevaluation should symptoms worsen or new symptoms develop. I explained what symptoms would indicate the need to return to the emergency department. Shared decision making was used. The patient voiced understanding of the treatment plan and is agreeable with it. Clinical impression: Chest pain Dyspnea History & Record Review Discussion w/independent historian: Patient Additional record(s) reviewed:: Prior labs Lab Data Attestation: I reviewed the patient's lab results. Labs: Laboratory Results - last 24 hr 04/08/25 04/08/25 14:05 16:10 WBC 5.2 RBC 3.89 L Hgb 12.3 Hct 37.9 MCV 97.4 MCH 31.6 MCHC 32.5 RDW Std Deviation 49.5 H RDW Coeff of Ted 13.9 Plt Count 164 MPV 10.6 Immature Gran % (Auto) 0.400 Neut % (Auto) 59.4 Lymph % (Auto) 25.0 Cecil % (Auto) 10.1 H Eos % (Auto) 4.5 Baso % (Auto) 0.6 Absolute Neuts (auto) 3.1 Absolute Lymphs (auto) 1.29 Nucleated RBC % 0 Sodium 135 Potassium 4.6 Chloride 99 Carbon Dioxide 22.9 Anion Gap 13 BUN 18 Creatinine 0.99 Estim Creat Clear Calc 67.17 Est GFR (MDRD) Non-Af 66 BUN/Creatinine Ratio 17.9 Glucose 90 Calcium 9.2 Troponin T High Sens 7 Troponin T Hi Sens 2 Hr 7 Radiography Diagnostic Testing: Clinical Impression(s) from Imaging Studies Chest X-Ray 04/08/25 14:09 IMPRESSION: Diffuse reticular opacities may reflect underlying chronic lung disease, atypical pneumonia, and/or mild pulmonary edema. No large focal consolidations. Reading Location: [facility] Discharge Plan Triage Chief Complaint: Chest Pain ED Provider: Sheyla Robertson Dx/Rx/DC Orders Clinical Impression: Chest pain, Dyspnea Instructions: ED Chest Pain, Uncertain Cause, ED Dyspnea Prescriptions: No Action epinephrine 0.3 mg/0.3 mL auto-injector 0.3 mg IM ONCE Rx Instructions: as a single dose; may repeat once ferrous sulfate [FeroSul] 325 mg (65 mg iron) tablet 325 mg PO BID Patient Comments: INSTRUCTED TO NOT TAKE ANYMORE AFTER OUR PHONE CALL hydroxychloroquine 200 mg tablet 200 mg PO BID aspirin [Adult Aspirin Regimen] 81 mg tablet,delayed release (DR/EC) 81 mg PO DAILY Qty: 90 3RF bupropion HCl 150 mg tablet extended release 24 hr 150 mg PO QAM albuterol sulfate [Ventolin HFA] 90 mcg/actuation HFA aerosol inhaler 2 puff inhalation Q6H PRN (Reason: wheezing) fluticasone propionate 1 SPRAY spray,suspension 2 spray NASAL DAILY PRN (Reason: allergy symptoms) montelukast 10 MG tablet 10 mg PO DAILY levalbuterol tartrate 15 GM HFA aerosol inhaler 15 g IH Q4H PRN PRN (Reason: Shortness Of Breath) metformin 500 mg tablet extended release 24 hr 1,000 mg PO BID nitroglycerin 0.4 mg Tablet, Sublingual 0.4 mg sublingual Q5M PRN (Reason: Cardiac/Chest Pain) Qty: 15 6RF famotidine [Pepcid] 20 mg tablet 20 mg PO BID Qty: 7 0RF citalopram 40 mg tablet 40 mg PO DAILY albuterol sulfate 2.5 mg /3 mL (0.083 %) solution for nebulization 2.5 mg inhalation TID PRN (Reason: shortness of breath or wheezing) amlodipine 5 mg tablet 5 mg PO QDAY Qty: 90 3RF losartan 50 mg tablet 50 mg PO QHS Qty: 90 3RF pravastatin 20 mg tablet 20 mg PO QHS Qty: 90 4RF pantoprazole 40 mg tablet,delayed release (DR/EC) 40 mg PO QDAY Qty: 60 2RF Eliquis 5 mg tablet 5 mg PO BID Qty: 60 11RF isosorbide mononitrate 30 mg tablet extended release 24 hr 30 mg PO QAM Qty: 90 3RF carvedilol 25 mg tablet 12.5 mg PO BID Qty: 180 3RF Primary Care Provider: Opal Bernal Referrals: Alicia Manzano MD [Med Staff - Active Staff, Cardiology] - As soon as possible Opal Bernal MD [Primary Care Provider, Internal Medicine] Activity Restrictions/Additional Instructions: Your evaluation in the Emergency Department did not reveal any acute reason for admission. However, I want to emphasize that you may be early in the course of a disease process or illness even if it is not present. For this reason you should follow-up within 24 hours for reevaluation with either your primary care physician or if necessary back here in the Emergency Department. You should return to the Emergency Department immediately if your symptoms worsen or new symptoms develop. Print Language: Azeri Disposition Disposition: Home, Self Care Discharge Date/Time: 04/08/25 17:19
== END 2025-04-08 17:19 | disposition home or self-care (01) ==
PROVIDERS: Emergency Provider Student in an Organized Health Care Education/Training Program; PCP Internal Medicine; Visit Provider Student in an Organized Health Care Education/Training Program
DX: R07.9 Chest pain, unspecified (principal); I48.0 Paroxysmal atrial fibrillation; E11.9 Type 2 diabetes mellitus without complications; Z90.710 Acquired absence of both cervix and uterus; I10 Essential (primary) hypertension; I25.10 Atherosclerotic heart disease of native coronary artery without angina pectoris; Z79.01 Long term (current) use of anticoagulants; E78.5 Hyperlipidemia, unspecified; R06.00 Dyspnea, unspecified; Z95.5 Presence of coronary angioplasty implant and graft; G47.30 Sleep apnea, unspecified; Z99.89 Dependence on other enabling machines and devices; Z79.84 Long term (current) use of oral hypoglycemic drugs; Z79.82 Long term (current) use of aspirin; F41.9 Anxiety disorder, unspecified; Z79.899 Other long term (current) drug therapy; K21.9 Gastro-esophageal reflux disease without esophagitis; Z98.41 Cataract extraction status, right eye; Z98.42 Cataract extraction status, left eye
CPT/HCPCS: 71046; 80048; 84484; 85025; 93005; 99284; A4216